=== PATIENT | female | born 1955 | race Caucasian/White ===

== ENCOUNTER → 2017-12-28 13:31 | Outpatient (CLI) | payer MEDICARE, SELFPAY ==
--- NOTE | 2017-12-28 13:36 | MRI_ITS ---
STUDY: MRI LUMBAR SPINE WITHOUT CONTRAST REASON FOR EXAM: Female, 62 years old. Chronic low back pain and bilateral leg pain TECHNIQUE: Standardized fat and water weighted pulse sequences were obtained in the sagittal and axial planes. COMPARISON: None FINDINGS: T12-L1: Incompletely imaged with disc space narrowing and desiccation and anterior osteophyte formation. Normal lumbar lordosis. There is no substantial scoliosis. Normal conus medullaris that terminates at the L1-2 level. L1-2: Disc desiccation. No compressive sequelae. L2-3: Disc desiccation. No compressive sequelae. L3-4: Disc desiccation. Bulging annulus with superimposed broad left foraminal disc protrusion and bilateral facet and ligamentum flavum hypertrophy. Mild central canal and moderate left lateral recess stenoses. Moderate to severe left and mild right foraminal stenoses. L4-5: Disc desiccation. Bulging annulus with superimposed broad left foraminal disc protrusion and bilateral facet and ligamentum flavum hypertrophy. Mild central canal and left lateral recess stenosis. Moderate left and mild right foraminal stenoses. L5-S1: Disc desiccation. Bulging annulus and bilateral facet hypertrophy with minimal central canal stenosis and mild left foraminal stenosis. Normal visualized sacral ala. Normal visualized paraspinous soft tissue structures. MRI/Spine Lumbar (Routine) IMPRESSION: Multilevel degenerative disc and facet disease as described. Moderate to severe left foraminal stenosis at the L3-4 level. Moderate left foraminal stenosis at the L4-5 level. Electronically Signed: Aquiles Burnett MD at 3:41 EST Tel , Service support ,
== END ==
PROVIDERS: Family Provider Family Medicine; PCP Family Medicine
DX: M54.5 Low back pain (principal); G89.29 Other chronic pain; M51.9 Unspecified thoracic, thoracolumbar and lumbosacral intervertebral disc disorder
CPT/HCPCS: 72148

== ENCOUNTER → 2018-01-04 16:08 | Outpatient (CLI) | payer MEDICARE, SELFPAY ==
[2018-01-04 17:35] LABS: Absolute Lymphocyte Count 3.33 X10^3/ul (0.83-4.51); Absolute Neutrophil Count 3.5 X10^3/uL (2.0-7.7); Basophil# 0.03 X10^3/uL; Basophil% 0.4 % (0-1); Eosinophil# 0.07 X10^3/uL; Eosinophils% 0.9 % (0-5); Hemoglobin 13.4 g/dl (12.0-15.0); Lymphocyte # 3.33 X10^3/ul (4.0); Lymphocyte % 44.9 % (19-41); Mean Corp Hgb Conc 33.5 g/gl (32-36); Mean Corpuscular Hgb 32.2 pg (27.0-32.0); Mean Corpuscular Volume 96.2 fL (81-99); Mean Platelet Vol. 11.6 fl (6.2-12.0); Monocyte# 0.46 X10^3/uL; Monocyte% 6.2 % (0-10); Neutrophil # 3.52 X10^3/uL (2.7-7.7); Neutrophil % 47.5 % (47-70); Platelet Count 114 K/mm3 (150-450); RBC Distribution Width SD 48.2 fl (35.1-43.9); Red Blood Count 4.16 M/mm3 (4.2-5.4); White Blood Count 7.4 K/mm3 (4.4-11.0)
[2018-01-04 17:37] LABS: POSITIVE COUNT NO; POSITIVE DIFFERENTIAL NO; POSITIVE MORPHOLOGY NO
[2018-01-04 18:02] LABS: ALB/GLOB Ratio 0.9 RATIO (0.9-2.4); AST(SGOT) 45 U/L (15-37); Alanine Aminotransfer ALT/SGPT 40 U/L (13-56); Albumin, Serum 3.4 g/dL (3.2-5.0); Alkaline Phosphatase 70 U/L (45-117); Anion Gap 8 (5-15); BUN 9 mg/dL (7-18); BUN/Creat Ratio 10.5 RATIO (10-20); Calcium,Total 8.7 mg/dL (8.5-10.1); Chloride 101 mmol/L (98-107); Creatinine, Serum 0.86 mg/dL (0.55-1.02); EST Glomerular Filtration Rate 72 mL/min (>60); Est Glom Filt Rate - Afr Amer 87 mL/min (>60); Globulin 3.7 g/dL (2.2-4.2); Glucose 78 mg/dL (74-106); Protein, Total 7.1 g/dL (6.4-8.2); Sodium Level 135 mmol/L (136-145); Thyroid Stim Hormone (TSH) 0.96 uIU/mL (0.358-3.74)
== END ==
PROVIDERS: Family Provider Family Medicine; PCP Family Medicine; Visit Provider Family Medicine
DX: R25.1 Tremor, unspecified (principal); R41.3 Other amnesia
CPT/HCPCS: 36415; 80053; 84443; 85025

== ENCOUNTER 2018-01-27 12:34 | Emergency (ER) | payer MEDICARE, SELFPAY ==
[2018-01-27 12:35] VITALS: BP 106/70; PULSE 74; RESP 18; TEMP 36.1; O2SAT 97; BMI 25.7
--- NOTE | 2018-01-27 12:57 | NURSING ---
NO LW OR POA
--- NOTE | 2018-01-27 13:41 | RAD_ITS ---
STUDY: X-RAY - RIGHT KNEE REASON FOR EXAM: Female, 62 years old. fall, bruising, pain TECHNIQUE: 4 view(s) of the knee. COMPARISON: None. FINDINGS: Normal visualized distal femur. Normal visualized proximal tibia and fibula. Normal proximal tibiofibular articulation. Normal medial femorotibial compartment. Normal lateral femorotibial compartment. Normal patellofemoral articulation. The soft tissue structures are unremarkable. RAD/Knee 4 or More Views IMPRESSION: Normal x-ray examination of the knee. Electronically Signed: Simon Arias MD at 14:34 EDT Tel , Service support ,
--- NOTE | 2018-01-27 13:41 | CT_ITS ---
STUDY: CT BRAIN WITHOUT CONTRAST REASON FOR EXAM: Female, 62 years old. Trauma, fell on ice yesterday, headache today. Hx melanoma, HI, CABG and stents. RADIATION DOSAGE (If Supplied By Facility): CTDIvol = ( 44.99 ) mGy, DLP = ( 745.49 ) mGycm TECHNIQUE: Transaxial CT imaging of the brain was performed without administration of intravenous contrast material. Individualized dose optimization techniques were used for this CT. COMPARISON: None. FINDINGS: Normal soft tissue structures. Normal calvarium. Normal size ventricles and extra-axial spaces for the patient's age. There are areas of decreased attenuation within the white matter tracts of the supratentorial brain, consistent with microvascular disease changes. Normal basal ganglia and thalami. Normal brainstem. Normal cerebellum. There is no intracranial hemorrhage. There are no findings of an acute ischemic infarction. Normal visualized paranasal sinuses. CT/Brain/Head without Contrast IMPRESSION: Chronic involutional changes of the brain. Electronically Signed: Simon Arias MD at 14:31 EDT Tel , Service support ,
--- NOTE | 2018-01-27 13:41 | RAD_ITS ---
STUDY: X-RAY - RIGHT FOOT CLINICAL: Female, 62 years old. fall, pain TECHNIQUE: 3 view(s) of the foot. COMPARISON: None. FINDINGS: There is an enthesophyte involving the posterior superior calcaneus at the site of insertion of the Achilles tendon. Normal visualized subtalar, talonavicular, calcaneocuboid, tarsal and tarsometatarsal articulations. Normal metatarsi. Normal metatarsophalangeal joint of the great toe. Normal tibial and fibular sesamoid bones. Normal interphalangeal joint of the great toe. Normal phalanges of the great toe. Normal second through fifth metatarsophalangeal joints. Normal interphalangeal joints and phalanges of the lesser toes. The soft tissue structures are unremarkable. RAD/Foot min 3 Views IMPRESSION: No acute bone injury of the foot. Electronically Signed: Simon Arias MD at 14:35 EDT Tel , Service support ,
[2018-01-27] MEDS: Morphine 4 MG/ML Syringe SC (13:57)
--- NOTE | 2018-01-27 15:10 | ED.DCSUM_ITS ---
- ER Visit Summary Date of Service: 01/27/18 Chief Complaint: Fall History of Present Illness: The patient is a 62 F patient slipped on ice yesterday. Complains of right foot, right knee, and right head pain. No loss of consciousness. No numbness or weakness. No loss of bowel or bladder. She does take aspirin and Plavix. No other injuries or complaints. Physical Examination: Afebrile and vital signs unremarkable. Head is atraumatic. Neck nontender. Heart regular. Lungs clear. Right knee shows ecchymosis and diffuse tenderness to palpation. Right foot shows dorsal tenderness and mild ecchymosis. She is neurovascular intact distally. No other evidence of trauma. Test Results: CT head negative. X-rays of the foot and knee were negative. Emergency Department Course and Treatment: Patient treated with morphine here. She is in pain management and will continue to use her home medications. Return for any new or worsening issues. Rest ice and elevate the injured areas. Treatment Plan: Above Disposition: Discharged Impression: 1. Right knee pain 2. Right foot pain 3. Closed head injury This note was generated with Abigail Stewart dictation software. It may contain incorrect words, spelling, and punctuation that were not noted in review of the chart prior to signing ED Disposition - Plan for ED Patient: Chief Complaint: Fall Referrals: Phani Odom MD [Primary Care Provider] -
--- NOTE | 2018-01-27 15:10 | ED.DEP ---
ED Disposition - Plan for ED Patient: Chief Complaint: Fall Instructions: ED Mechanical Fall Referrals: Phani Odom MD [Primary Care Provider] -
[2018-01-27 15:18] VITALS: BP 110/68; BP 110/80; PULSE 70; RESP 16; O2SAT 100
== END 2018-01-27 15:19 | disposition home or self-care (01) ==
PROVIDERS: Emergency Provider Emergency Medicine; Family Provider Family Medicine; PCP Family Medicine
DX: S09.90XA Unspecified injury of head, initial encounter (principal); M25.561 Pain in right knee; M79.671 Pain in right foot; I25.10 Atherosclerotic heart disease of native coronary artery without angina pectoris; Z72.0 Tobacco use; Z79.82 Long term (current) use of aspirin; Z79.02 Long term (current) use of antithrombotics/antiplatelets; Z79.899 Other long term (current) drug therapy; W00.0XXA Fall on same level due to ice and snow, initial encounter; Y93.01 Activity, walking, marching and hiking; Y92.89 Other specified places as the place of occurrence of the external cause; Y99.8 Other external cause status
CPT/HCPCS: 70450; 73564; 73630; 96372; 99284

== ENCOUNTER 2018-02-17 11:42 | Emergency (ER) | payer MEDICARE, SELFPAY ==
[2018-02-17 11:42] VITALS: BP 97/68; PULSE 64; RESP 16; TEMP 36.5; O2SAT 97; BMI 25.7
== END 2018-02-17 13:26 | disposition left against medical advice (07) ==
LOC: ED 13:25
PROVIDERS: Emergency Provider Emergency Medicine; Family Provider Family Medicine; PCP Family Medicine
DX: M54.9 Dorsalgia, unspecified (principal)

== ENCOUNTER 2018-03-12 16:51 | Inpatient (IN) | payer MEDICARE, SELFPAY ==
[2018-03-12] VITALS (19 sets, daily range): BP systolic 108–166; BP diastolic 69–97; PULSE 49–86; RESP 12–20; TEMP 36.2–36.9; O2SAT 94–99; BMI 26.6; BMI 26.4; BMI 26.7
--- NOTE | 2018-03-12 17:06 | ED.RN ---
janey petty came from [place]. throught the er rom was her room at home and refering to things not present or relavant to present. does appriopriately recall hx and able to verbalize cp, holdin epigastric and sternal area.
--- NOTE | 2018-03-12 17:13 | EKG12_ITS ---
Test Reason : CP Blood Pressure : / mmHG Vent. Rate : 069 BPM Atrial Rate : 069 BPM P-R Int : 142 ms QRS Dur : 094 ms QT Int : 448 ms P-R-T Axes : 046 -06 061 degrees QTc Int : 480 ms Normal sinus rhythm Poor R wave progression Confirmed by DREAD CHOI, SABI ([id number]), index editor JHONY MOLINA ([id number]) on 03/15/2018 1:28:31 PM Referred By: Con Jackson Confirmed By:SABI CANADA MD
--- NOTE | 2018-03-12 17:15 | ED.VISSUMM ---
- ER Visit Summary Date of Service: 03/12/18 Chief Complaint: Chest pain History of Present Illness: The patient is a 63 F sudden substernal chest pain 2 hours ago while resting. States twisting sensation in her chest and severe. Has been worsening. Took 3 nitros with no relief. Pain is a 10. History of CABG along with post CABG stenting states 5-7. States her last cath was probably 4 years ago at [facility]. She is followed by Dr. Castro. She is unclear if she has had a stent since then. Patient continued tobacco history. She hypertension and hypercholesterolemia. No family history of NE. No diabetes history. No PE risk factors. Patient states feels similar to her NE in the past. Allergies to IV dye stating it made her pass out previously. States yesterday did have similar pain at 6 PM however it resolved after 1 nitro. Physical Examination: General: Alert and oriented ?3, tearful in mild distress HEENT: Normocephalic, atraumatic. Moist mucosa membranes Neck: supple, nontender. Cardiovascular: Regular rate and rhythm, Respiratory: Normal breath sounds, symmetric, no distress Abdomen: Soft, nontender, nondistended Extremities: Nontender, no edema, pulses intact ?4 Neuro: no focal neurological deficits. Test Results: EKG: Sinus rate of 69, no ST or T-wave changes. Chest x-ray negative. Troponin negative. Creatinine clearance normal. Emergency Department Course and Treatment: Patient vitals stable, EKG normal. Symptoms not resolved with 3 nitros. She appears uncomfortable, high risk with her coronary disease and continued tobacco. Nitro drip will be started, fentanyl IV will be given. Cardiac workup initiated. She took aspirin and Plavix at home today. Treatment Plan: Patient high risk factors. Due to symptoms not improving on nitro series at home. Nitro drip was started. At one point nitro drip at 15 she was symptom-free. Did initially order Lovenox however this was held when her pain came back. She took aspirin and Plavix at home. The symptoms return. Multiple EKGs obtained unchanged. Cardiac workup was negative. I spoke with interventional is Dr. Jackson, discuss findings he is on his way to the ED to see the patient. He did request the cath team be paged to come in. Spoke with hospitalist Dr. Brown for admission. Heart score is a 5. LIZETH score is a 4. Disposition: Admission Impression: Unstable angina This note was generated with [employer] dictation software. It may contain incorrect words, spelling, and punctuation that were not noted in review of the chart prior to signing ED Disposition - Plan for ED Patient: Disposition: Acute Care Hospital [facility] Chief Complaint: Chest Pain Diagnosis: Unstable angina Referrals: Phani Odom MD [Primary Care Provider] -
--- NOTE | 2018-03-12 17:16 | RAD_ITS ---
STUDY: X-RAY CHEST REASON FOR EXAM: Female, 63 years old. Midsternal chest pain. TECHNIQUE: Single AP portable view of the chest. COMPARISON: April 17, 2017 FINDINGS: Cardiac monitoring leads are present. Patient has had a sternotomy. There is hyperinflation of the lungs consistent with chronic obstructive lung disease (COPD). There is interstitial thickening at the lung bases, similar to previous study. There is no demonstrated pleural abnormality. There is mild cardiac enlargement. Normal mediastinum and jenna. Normal visualized pulmonary arteries. Normal visualized aortic arch and descending thoracic aorta. There is demineralization of the osseous structures. Patient has had previous cervical spine surgery. There is no demonstrated abnormality of the visualized soft tissue structures of the upper abdomen. RAD/Chest 1 View (Portable) IMPRESSION: No radiographic evidence of acute cardiopulmonary disease. Electronically Signed: Rossy Goetz MD at 17:37 EDT , Service support ,
[2018-03-12] MEDS: Nitroglycerin Infusion 250 ML 3 MG IV (17:24)
[2018-03-12] MEDS: fentaNYL 100 MCG/2 ML Ampul 50 MCG IV ×2 (17:24→20:12)
[2018-03-12 17:49] LABS: Absolute Neutrophil Count 3.8 X10^3/uL (2.0-7.7); Basophil# 0.03 X10^3/uL; Basophil% 0.4 % (0-1); Eosinophil# 0.04 X10^3/uL; Eosinophils% 0.5 % (0-5); Hematocrit 41.5 % (37-47); Lymphocyte % 43.8 % (19-41); Mean Corp Hgb Conc 33.7 g/gl (32-36); Mean Corpuscular Hgb 30.8 pg (27.0-32.0); Mean Corpuscular Volume 91.4 fL (81-99); Mean Platelet Vol. 10.9 fl (6.2-12.0); Monocyte% 6.4 % (0-10); Neutrophil # 3.79 X10^3/uL (2.7-7.7); Neutrophil % 48.8 % (47-70); Platelet Count 165 K/mm3 (150-450); RBC Distribution Width CV 13.7 % (11.6-14.6); RBC Distribution Width SD 45.4 fl (35.1-43.9); Red Blood Count 4.54 M/mm3 (4.2-5.4); White Blood Count 7.8 K/mm3 (4.4-11.0)
[2018-03-12 17:53] LABS: POSITIVE COUNT NO; POSITIVE DIFFERENTIAL NO; POSITIVE MORPHOLOGY NO
[2018-03-12 17:54] LABS: International Normalized Ratio 1.1; Prothrombin Time (Protime)PT. 14.5 SECONDS (11.7-14.9)
[2018-03-12 17:55] LABS: Partial Thromboplast Time 37.4 Seconds (24.1-36.2)
[2018-03-12 17:59] LABS: Anion Gap 8 (5-15); BUN 10 mg/dL (7-18); BUN/Creat Ratio 10.4 RATIO (10-20); Calcium,Total 8.9 mg/dL (8.5-10.1); Chloride 101 mmol/L (98-107); Creatinine, Serum 0.96 mg/dL (0.55-1.02); EST Glomerular Filtration Rate 63 mL/min (>60); Est Glom Filt Rate - Afr Amer 76 mL/min (>60); Estimated Creatinine Clearance 53.14 ml/min; Glucose 77 mg/dL (74-106); Potassium 4.2 mmol/L (3.5-5.1); Sodium Level 134 mmol/L (136-145)
--- NOTE | 2018-03-12 19:11 | EKG12_ITS ---
Test Reason : Blood Pressure : / mmHG Vent. Rate : 062 BPM Atrial Rate : 062 BPM P-R Int : 144 ms QRS Dur : 096 ms QT Int : 464 ms P-R-T Axes : 033 -08 059 degrees QTc Int : 470 ms Normal sinus rhythm Poor R wave progression Confirmed by DREAD CHOI, SABI ([id number]), fan mail editor JHONY MOLINA ([id number]) on 03/15/2018 1:28:52 PM Referred By: Con Jackson Confirmed By:SABI CANADA MD
--- NOTE | 2018-03-12 19:11 | EKG12_ITS ---
Test Reason : CP Blood Pressure : / mmHG Vent. Rate : 063 BPM Atrial Rate : 063 BPM P-R Int : 144 ms QRS Dur : 094 ms QT Int : 460 ms P-R-T Axes : 044 -08 063 degrees QTc Int : 470 ms Normal sinus rhythm Poor R wave progression Confirmed by DREAD CHOI, SABI ([id number]), food expeditor JHONY MOLINA ([id number]) on 03/15/2018 1:29:12 PM Referred By: Con Jackson Confirmed By:SABI CANADA MD
[2018-03-12] MEDS: Acetaminophen 500 MG Tablet 1000 MG PO (19:47)
--- NOTE | 2018-03-12 19:49 | NURSING ---
DR. AGRAWAL MADE AWARE OF PATIENT'S CONTINUED CHEST PAIN OF 5/10. ALSO C/O LEFT JAW PAIN AND A HEADACHE. HE TOLD THIS NURSE TO GO AHEAD AND INCREASE THE NITRO TO 25MCG/MIN. THIS NURSE DID THAT. PATIENT ALSO REQUESTED TYLENOL FOR HER HEADACHE AND THAT WAS ORDERED AND GIVEN. PATIENT ALSO HAD SOME DRY HEAVES.
--- NOTE | 2018-03-12 19:59 | NURSING ---
THIS NURSE WAS CALLED TO THE PATIENT'S ROOM FOR INCREASED CHEST PAIN OF 9/10. DR. AGRAWAL MADE AWARE. NITRO INCREASED TO 30 MCG/MIN. RESPIRATORY CALLED FOR A REPEAT EKG. DR. BERMAN CONSULT DOCTOR ANESTHESIOLOGY FACULTY FOR BEHAVIORAL INSTRUCTOR.
--- NOTE | 2018-03-12 20:31 | NURSING ---
PATIENT IS GOING TO THE [facility] FOR UNSTABLE ANGINA. CATH TEAM CALLED IN. PATIENT PREPPED FOR THE [facility]. PATIENT TO GO TO ICU 2 AFTER PROCEDURE. PATIENT'S PAIN CURRENTLY IS 5/10.
[2018-03-12] MEDS: Ondansetron 4 MG/2 ML Vial IV (20:40)
--- NOTE | 2018-03-12 20:47 | PCM.HP.STD ---
Problem List (1) Unstable angina Status: Acute (2) Status post coronary artery bypass graft Status: Chronic (3) Coronary artery disease Status: Chronic (4) Dyslipidemia Status: Chronic (5) Essential hypertension Status: Chronic (6) Obstructive sleep apnea Status: Chronic (7) Degenerative disc disease, lumbar Status: Chronic (8) Osteoarthritis Status: Chronic History of Present Illness Date of Admission: 03/12/18 Chief Complaint: Chest pain. The patient is a 63 year old F with past medical history as mentioned above presented to the emergency room because of chest pain. Her symptoms started on 3 PM today with retrosternal chest pain, came on when she was walking, squeezing type pain, initially was 5 out of 10 in severity, progressed and became up to 9 out of 10 in severity, associated with mild shortness of breath, dizziness and nausea, not relieved by nitroglycerin and no aggravating factors. At home, she took 3 sublingual nitroglycerin with no improvement. At this time, she still having chest pain that was related around 8 out of 10 in severity. In the emergency department, her vital signs are stable. She was started on intravenous nitroglycerin drip and she continued to have chest pain. STEMI alert called and patient will be taking soon for emergent cardiac catheterization. She received 1 dose of therapeutic Lovenox and aspirin. Her routine blood work was unremarkable. Troponin was negative. EKG revealed normal sinus rhythm without evidence of acute ischemic changes. Chest x-ray showed no acute findings. She is being admitted for unstable angina. Past Medical History Past Medical History (Chronic Problems): Chronic Problems Status post coronary artery bypass graft (Chronic) Coronary artery disease (Chronic) Dyslipidemia (Chronic) Essential hypertension (Chronic) History of mitral valve prolapse (Chronic) Obstructive sleep apnea (Chronic) Degenerative disc disease, lumbar (Chronic) Osteoarthritis (Chronic) Lung nodule < 6cm on CT (Chronic) Tobacco abuse (Chronic) Allergies Iodinated Contrast- Oral and IV Dye [Iodinated Contrast Media - IV Dye] Allergy (Verified 03/12/18 16:52) Other tetracycline [Tetracycline] Allergy (Verified 03/12/18 16:52) Hives Home Medications: Ambulatory Orders Medication Instructions Recorded Aspirin [Aspirin, Baby] 81 mg PO DAILY@0800 02/04/16 Citalopram [Celexa] 40 mg PO QHS 02/04/16 Omeprazole [Prilosec] 20 mg PO DAILY 02/04/16 busPIRone [Buspar] 5 mg PO TID 02/04/16 fentaNYL patch [Duragesic patch] 75 mcg TRANSDERM. Q72H 02/04/16 Nitroglycerin [Nitrostat] 0.4 mg SUBLINGUAL Q5M PRN #10 04/18/17 tablet Clopidogrel Bisulfate [Plavix] 75 mg PO DAILY 01/27/18 Cholecalciferol (Vitamin D3) 5,000 unit PO DAILY 03/12/18 [Vitamin D3] Clonazepam [Klonopin] 2 mg PO TID 03/12/18 Cyclobenzaprine [Flexeril] 10 mg PO TID PRN PRN 03/12/18 Metoprolol Tartrate [Lopressor 12.5 mg PO QHS 03/12/18 (beta johny)] Ubidecarenone [Coenzyme Q10] 100 mg PO DAILY 03/12/18 traZODone [Desyrel] 50 mg PO QHS 03/12/18 Surgical History: appendectomy, cholecystectomy, coronary bypass surgery, hysterectomy, - - bilateral carpal tunnel repair 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: Anxiety, Depression JUVENILE COUNSELOR History: No pertinent JUVENILE COUNSELOR history Lives: Spouse/ Significant Other Smoking Status: Current every day smoker Alcohol: None Drugs: None - *Family History Paternal History Items: Cancer - colon Offspring History Items: - - Daughter has lupus Maternal History Items: Cancer - Lung with brain metastases Sibling History Items: - - Sister has multiple sclerosis Review of Systems Constitutional: Denies: Anorexia, Chills, Fever, Weakness Eyes: Denies: Blurred vision, Double vision, Drainage, Redness HEENT: Denies: Difficulty Hearing, Ear Pain, Eye Pain, Nasal Congestion, Sore Throat Cardiovascular: Reports: Chest Pain. Denies: Edema, Heaviness, Light Headedness, Orthopnea, Paroxysmal Noc. Dyspnea, Syncope Respiratory: Reports: Shortness of Breath. Denies: Cough, Hemoptysis, Pleuritic Pain, Sputum production, Wheezing Gastrointestinal: Reports: Nausea. Denies: Abdominal Pain, Constipation, Diarrhea, Vomiting Genitourinary: Denies: Dysuria, Frequency, Hematuria Musculoskeletal: Denies: Arm Pain, Back Pain, Foot Pain Skin: Denies: Dryness, Rash Neurological: Denies: Balance problems, Double vision, Change in Speech, Slurred speech, Headaches, Incoordination, Numbness Psychiatric: Denies: Anxiety, Depression Endocrine: Denies: Change in Body Habitus, Polydipsia VTE Information - Inpt Only VTE Present on Admission: No VTE Mechan Device Prophylaxis: None VTE Pharm Prophylaxis ordered?: Yes Patient Problems: Active and Suspected Problems Unstable angina (Acute) - Physical Exam General: Alert, Oriented x3, Cooperative, No apparent distress HEENT: Atraumatic, PERRLA, EOMI Oral: Moist Mucosa, No Gingival or Mucosal Lesions/ Ulcerations Neck: Supple, No JVD, Negative Carotid Bruits, Trachea Midline, Thyroid Normal Size and Texture Lungs: Clear to auscultation, No rhonchi, No wheeze, No rales, Diminished Cardiovascular: Regular rate, Regular Rhythm, Normal S1, Normal S2, No murmurs, PMI Normal Abdomen: Bowel Sounds Present, Soft, Non Tender, Non-Distended, No Hepato-splenomegaly Extremities: No clubbing, No cyanosis, No edema Skin: No rashes, No breakdown Lymphatic: No Cervical, Supraclavicular, or Inguinal Adenopathy Neurological: Cranial nerves II-XII grossly intact, Motor Exam 5/5 strength throughout Psych/Mental Status: Normal Affect, Appropriate, Alert and oriented to time, place, person, mood and affect Vital Signs Temp Pulse Resp BP Pulse Ox 98.4 F 59 L 15 128/84 H 97 03/12/18 20:43 03/12/18 20:43 03/12/18 20:43 03/12/18 20:43 03/12/18 20:43 Oxygen Flow Rate (L/min) 2 Oxygen Delivery Method Nasal Cannula Weight: 155 lb 10.342 oz Body Mass Index (BMI) 26.6 Laboratory Tests Past 24 Hrs 03/12/18 03/12/18 03/12/18 17:05 17:05 17:05 WBC 7.8 RBC 4.54 Hgb 14.0 Hct 41.5 MCV 91.4 MCH 30.8 MCHC 33.7 RDW 13.7 RDW Differential 45.4 H Plt Count 165 MPV 10.9 Immature Gran % (Auto) 0.100 Neut % (Auto) 48.8 Lymph % (Auto) 43.8 H [place] % (Auto) 6.4 Eos % (Auto) 0.5 Baso % (Auto) 0.4 Absolute Neuts (auto) 3.8 Absolute Lymphs (auto) 3.40 Total Counted Not Reportable PT 14.5 INR 1.1 APTT 37.4 H Sodium 134 L Potassium 4.2 Chloride 101 Carbon Dioxide 25.0 Anion Gap 8 BUN 10 Creatinine 0.96 Estim Creat Clear Calc 53.14 Est GFR (MDRD) Af Amer 76 Est GFR (MDRD) Non-Af 63 BUN/Creatinine Ratio 10.4 Glucose 77 Calcium 8.9 Troponin I < 0.02 Clinical Impression(s) from Imaging Studies Chest X-Ray 03/12/18 17:16 IMPRESSION: No radiographic evidence of acute cardiopulmonary disease. Electronically Signed: Rossy Goetz MD at 17:37 EDT , Service support , Assessment/Plan Active and Suspected Problems Unstable angina (Acute) This is a 63 years old female patient presented to the medicine because sudden onset chest pain that started when she was walking in context of history of CAD status post CABG and stents and she is being admitted for unstable angina and she is going under emergent cardiac catheterization. #1 unstable angina: She is still having chest pain. She is on IV nitroglycerin drip. Plan is for emergent cardiac catheterization at this time. Vital signs are stable. EKG reveals no acute ischemic changes. Troponin is negative. Chest x-ray showed no acute findings. Plan: Admit to ICU after cardiac catheterization, serial cardiac enzymes, repeat EKG tomorrow morning, cardiology consult, continue aspirin, Plavix and metoprolol, repeat CBC and BMP tomorrow morning, IV fluids, IV morphine as needed for pain, continue IV nitroglycerin drip. #2 CAD status post CABG and stents: Plan as above, continue aspirin, statins, Plavix and beta blockers. #3 hypertension: Blood pressure stable, continue metoprolol. #4 hyperlipidemia: Continue statins. #5 anxiety/depression: Continue BuSpar, trazodone and Klonopin. #6 DVT prophylaxis: Subcu Lovenox. Other chronic medical problems: Stable. #1 mitral valve prolapse. #2 obstructive sleep apnea. #3 chronic back pain/degenerative lumbar joint disease. #4 lung nodule, follow-up with pulmonology as outpatient. This note was generated with [employer]ore [employer] software. It may contain incorrect words, spelling, and punctuation that were not noted in checking the note before signing. Code Visit Inpatient E&M: 46437 Init Hosp L3
--- NOTE | 2018-03-12 21:02 | HP.PCM_ITS ---
Problem List (1) Unstable angina Status: Acute (2) Status post coronary artery bypass graft Status: Chronic (3) Coronary artery disease Status: Chronic (4) Dyslipidemia Status: Chronic (5) Essential hypertension Status: Chronic (6) Obstructive sleep apnea Status: Chronic (7) Degenerative disc disease, lumbar Status: Chronic (8) Osteoarthritis Status: Chronic History of Present Illness Date of Admission: 03/12/18 Chief Complaint: Chest pain. The patient is a 63 year old F with past medical history as mentioned above presented to the emergency room because of chest pain. Her symptoms started on 3 PM today with retrosternal chest pain, came on when she was walking, squeezing type pain, initially was 5 out of 10 in severity, progressed and became up to 9 out of 10 in severity, associated with mild shortness of breath, dizziness and nausea, not relieved by nitroglycerin and no aggravating factors. At home, she took 3 sublingual nitroglycerin with no improvement. At this time, she still having chest pain that was related around 8 out of 10 in severity. In the emergency department, her vital signs are stable. She was started on intravenous nitroglycerin drip and she continued to have chest pain. STEMI alert called and patient will be taking soon for emergent cardiac catheterization. She received 1 dose of therapeutic Lovenox and aspirin. Her routine blood work was unremarkable. Troponin was negative. EKG revealed normal sinus rhythm without evidence of acute ischemic changes. Chest x-ray showed no acute findings. She is being admitted for unstable angina. Past Medical History Past Medical History (Chronic Problems): Chronic Problems Status post coronary artery bypass graft (Chronic) Coronary artery disease (Chronic) Dyslipidemia (Chronic) Essential hypertension (Chronic) History of mitral valve prolapse (Chronic) Obstructive sleep apnea (Chronic) Degenerative disc disease, lumbar (Chronic) Osteoarthritis (Chronic) Lung nodule < 6cm on CT (Chronic) Tobacco abuse (Chronic) Allergies Iodinated Contrast- Oral and IV Dye [Iodinated Contrast Media - IV Dye] Allergy (Verified 03/12/18 16:52) Other tetracycline [Tetracycline] Allergy (Verified 03/12/18 16:52) Hives Home Medications: Ambulatory Orders Medication Instructions Recorded Aspirin [Aspirin, Baby] 81 mg PO DAILY@0800 02/04/16 Citalopram [Celexa] 40 mg PO QHS 02/04/16 Omeprazole [Prilosec] 20 mg PO DAILY 02/04/16 busPIRone [Buspar] 5 mg PO TID 02/04/16 fentaNYL patch [Duragesic patch] 75 mcg TRANSDERM. Q72H 02/04/16 Nitroglycerin [Nitrostat] 0.4 mg SUBLINGUAL Q5M PRN #10 04/18/17 tablet Clopidogrel Bisulfate [Plavix] 75 mg PO DAILY 01/27/18 Cholecalciferol (Vitamin D3) 5,000 unit PO DAILY 03/12/18 [Vitamin D3] Clonazepam [Klonopin] 2 mg PO TID 03/12/18 Cyclobenzaprine [Flexeril] 10 mg PO TID PRN PRN 03/12/18 Metoprolol Tartrate [Lopressor 12.5 mg PO QHS 03/12/18 (beta johny)] Ubidecarenone [Coenzyme Q10] 100 mg PO DAILY 03/12/18 traZODone [Desyrel] 50 mg PO QHS 03/12/18 Surgical History: appendectomy, cholecystectomy, coronary bypass surgery, hysterectomy, - - bilateral carpal tunnel repair 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: Anxiety, Depression MANAGER ART History: No pertinent MANAGER ART history Lives: Spouse/ Significant Other Smoking Status: Current every day smoker Alcohol: None Drugs: None - *Family History Paternal History Items: Cancer - colon Offspring History Items: - - Daughter has lupus Maternal History Items: Cancer - Lung with brain metastases Sibling History Items: - - Sister has multiple sclerosis Review of Systems Constitutional: Denies: Anorexia, Chills, Fever, Weakness Eyes: Denies: Blurred vision, Double vision, Drainage, Redness HEENT: Denies: Difficulty Hearing, Ear Pain, Eye Pain, Nasal Congestion, Sore Throat Cardiovascular: Reports: Chest Pain. Denies: Edema, Heaviness, Light Headedness , Orthopnea, Paroxysmal Noc. Dyspnea, Syncope Respiratory: Reports: Shortness of Breath. Denies: Cough, Hemoptysis, Pleuritic Pain, Sputum production, Wheezing Gastrointestinal: Reports: Nausea. Denies: Abdominal Pain, Constipation, Diarrhea, Vomiting Genitourinary: Denies: Dysuria, Frequency, Hematuria Musculoskeletal: Denies: Arm Pain, Back Pain, Foot Pain Skin: Denies: Dryness, Rash Neurological: Denies: Balance problems, Double vision, Change in Speech, Slurred speech, Headaches, Incoordination, Numbness Psychiatric: Denies: Anxiety, Depression Endocrine: Denies: Change in Body Habitus, Polydipsia VTE Information - Inpt Only VTE Present on Admission: No VTE Mechan Device Prophylaxis: None VTE Pharm Prophylaxis ordered?: Yes Patient Problems: Active and Suspected Problems Unstable angina (Acute) - Physical Exam General: Alert, Oriented x3, Cooperative, No apparent distress HEENT: Atraumatic, PERRLA, EOMI Oral: Moist Mucosa, No Gingival or Mucosal Lesions/ Ulcerations Neck: Supple, No JVD, Negative Carotid Bruits, Trachea Midline, Thyroid Normal Size and Texture Lungs: Clear to auscultation, No rhonchi, No wheeze, No rales, Diminished Cardiovascular: Regular rate, Regular Rhythm, Normal S1, Normal S2, No murmurs, PMI Normal Abdomen: Bowel Sounds Present, Soft, Non Tender, Non-Distended, No Hepato- splenomegaly Extremities: No clubbing, No cyanosis, No edema Skin: No rashes, No breakdown Lymphatic: No Cervical, Supraclavicular, or Inguinal Adenopathy Neurological: Cranial nerves II-XII grossly intact, Motor Exam 5/5 strength throughout Psych/Mental Status: Normal Affect, Appropriate, Alert and oriented to time, place, person, mood and affect Vital Signs Temp Pulse Resp BP Pulse Ox 98.4 F 59 L 15 128/84 H 97 03/12/18 20:43 03/12/18 20:43 03/12/18 20:43 03/12/18 20:43 03/12/18 20:43 Oxygen Flow Rate (L/min) 2 Oxygen Delivery Method Nasal Cannula Weight: 155 lb 10.342 oz Body Mass Index (BMI) 26.6 Laboratory Tests Past 24 Hrs 03/12/18 03/12/18 03/12/18 17:05 17:05 17:05 WBC 7.8 RBC 4.54 Hgb 14.0 Hct 41.5 MCV 91.4 MCH 30.8 MCHC 33.7 RDW 13.7 RDW Differential 45.4 H Plt Count 165 MPV 10.9 Immature Gran % (Auto) 0.100 Neut % (Auto) 48.8 Lymph % (Auto) 43.8 H [place] % (Auto) 6.4 Eos % (Auto) 0.5 Baso % (Auto) 0.4 Absolute Neuts (auto) 3.8 Absolute Lymphs (auto) 3.40 Total Counted Not Reportable PT 14.5 INR 1.1 APTT 37.4 H Sodium 134 L Potassium 4.2 Chloride 101 Carbon Dioxide 25.0 Anion Gap 8 BUN 10 Creatinine 0.96 Estim Creat Clear Calc 53.14 Est GFR (MDRD) Af Amer 76 Est GFR (MDRD) Non-Af 63 BUN/Creatinine Ratio 10.4 Glucose 77 Calcium 8.9 Troponin I < 0.02 Clinical Impression(s) from Imaging Studies Chest X-Ray 03/12/18 17:16 IMPRESSION: No radiographic evidence of acute cardiopulmonary disease. Electronically Signed: Rossy Goetz MD at 17:37 EDT , Service support , Assessment/Plan Active and Suspected Problems Unstable angina (Acute) This is a 63 years old female patient presented to the medicine because sudden onset chest pain that started when she was walking in context of history of CAD status post CABG and stents and she is being admitted for unstable angina and she is going under emergent cardiac catheterization. #1 unstable angina: She is still having chest pain. She is on IV nitroglycerin drip. Plan is for emergent cardiac catheterization at this time. Vital signs are stable. EKG reveals no acute ischemic changes. Troponin is negative. Chest x-ray showed no acute findings. Plan: Admit to ICU after cardiac catheterization, serial cardiac enzymes, repeat EKG tomorrow morning, cardiology consult, continue aspirin, Plavix and metoprolol, repeat CBC and BMP tomorrow morning, IV fluids, IV morphine as needed for pain, continue IV nitroglycerin drip. #2 CAD status post CABG and stents: Plan as above, continue aspirin, statins, Plavix and beta blockers. #3 hypertension: Blood pressure stable, continue metoprolol. #4 hyperlipidemia: Continue statins. #5 anxiety/depression: Continue BuSpar, trazodone and Klonopin. #6 DVT prophylaxis: Subcu Lovenox. Other chronic medical problems: Stable. #1 mitral valve prolapse. #2 obstructive sleep apnea. #3 chronic back pain/degenerative lumbar joint disease. #4 lung nodule, follow-up with pulmonology as outpatient. This note was generated with [email or web address]. It may contain incorrect words, spelling, and punctuation that were not noted in checking the note before signing. Code Visit Inpatient E&M: 30939 Init Hosp L3
[2018-03-12] MEDS: Enoxaparin 80 MG/0.8 ML Syringe 70 MG SC (22:08)
[2018-03-12 22:41] LABS: ACT Activated Clotting Time 346 sec (74-137)
[2018-03-12 22:41] LABS: ACT Activated Clotting Time 136 sec (74-137)
[2018-03-12] MEDS: Morphine 4 MG/ML Syringe IV (23:30)
[2018-03-13] VITALS (48 sets, daily range): BP systolic 108–164; BP diastolic 46–95; PULSE 45–75; RESP 12–26; TEMP 36.1–37.1; O2SAT 92–98; BMI 26.6
[2018-03-13 00:11] LABS: CPK Total, Creatine Kinase 39 U/L (26-192)
[2018-03-13] MEDS: traZODone 50 MG Tablet PO ×2 (00:23→21:46)
[2018-03-13] MEDS: busPIRone 5 MG Tablet PO ×4 (00:23→21:46)
[2018-03-13] MEDS: Citalopram 40 MG TABLET PO ×2 (00:23→21:46)
[2018-03-13] MEDS: clonazePAM 1 MG Tablet 2 MG PO ×4 (00:28→21:46)
[2018-03-13 02:00] LABS: M R Staph aureus DNA By PCR Negative (Negative); Probe Check PASS; Specimen Processing Control PASS
[2018-03-13] MEDS: Morphine 4 MG/ML Syringe IV ×3 (03:40→19:25)
[2018-03-13 04:02] LABS: Absolute Lymphocyte Count 1.11 X10^3/ul (0.83-4.51); Absolute Neutrophil Count 3.7 X10^3/uL (2.0-7.7); Basophil# 0.01 X10^3/uL; Basophil% 0.2 % (0-1); Hemoglobin 12.8 g/dl (12.0-15.0); Lymphocyte # 1.11 X10^3/ul (4.0); Lymphocyte % 22.7 % (19-41); Mean Corp Hgb Conc 33.7 g/gl (32-36); Mean Corpuscular Hgb 30.9 pg (27.0-32.0); Mean Corpuscular Volume 91.8 fL (81-99); Mean Platelet Vol. 10.4 fl (6.2-12.0); Monocyte# 0.05 X10^3/uL; Neutrophil # 3.71 X10^3/uL (2.7-7.7); Neutrophil % 76.1 % (47-70); Platelet Count 138 K/mm3 (150-450); RBC Distribution Width CV 13.6 % (11.6-14.6); RBC Distribution Width SD 45.1 fl (35.1-43.9); Red Blood Count 4.14 M/mm3 (4.2-5.4); White Blood Count 4.9 K/mm3 (4.4-11.0)
[2018-03-13 04:03] LABS: POSITIVE COUNT NO; POSITIVE DIFFERENTIAL NO; POSITIVE MORPHOLOGY NO
[2018-03-13 04:16] LABS: Anion Gap 9 (5-15); BUN 11 mg/dL (7-18); CPK Total, Creatine Kinase 37 U/L (26-192); Chloride 105 mmol/L (98-107); Creatinine, Serum 0.84 mg/dL (0.55-1.02); EST Glomerular Filtration Rate 73 mL/min (>60); Est Glom Filt Rate - Afr Amer 88 mL/min (>60); Estimated Creatinine Clearance 60.73 ml/min; Glucose 120 mg/dL (74-106); Potassium 4.5 mmol/L (3.5-5.1); Sodium Level 136 mmol/L (136-145)
[2018-03-13] MEDS: 0.9% Normal Saline 1,000 ML 75 ML IV (05:17)
--- NOTE | 2018-03-13 05:55 | EKG12_ITS ---
Test Reason : AM EKG Blood Pressure : / mmHG Vent. Rate : 057 BPM Atrial Rate : 057 BPM P-R Int : 148 ms QRS Dur : 098 ms QT Int : 498 ms P-R-T Axes : 046 002 057 degrees QTc Int : 484 ms Sinus bradycardia Otherwise normal ECG When compared with ECG of 12-MAR-2018 18:16, MANUAL COMPARISON REQUIRED, DATA IS UNCONFIRMED Confirmed by JOSEPHINE CHOI, LONA ([id number]), clinical editor JHONY MOLINA ([id number]) on 03/15/2018 2:33:57 PM Referred By: Con Jackson Confirmed By:LONA BURTON MD
[2018-03-13] MEDS: Aspirin E.C. 81 MG Tablet PO (07:44)
--- NOTE | 2018-03-13 08:08 | PCM.PN.HOSP ---
Patient Problems: Active and Suspected Problems Unstable angina (Acute) Subjective: Patient is a 63-year-old lady with past medical history significant for CAD with previous CABG and subsequent stent placement who presented with chest pain and assessment of unstable angina made patient underwent left heart catheterization was noted to have [place] multivessel CAD. She was noted to have a mid left main in-stent restenosis for which she had successful PCI with PTCA. Objective: GENERAL: cooperative and alert, HEENT: , neck is supple, normal thyroid, no distended JVD. CHEST: Clear to auscultation bilaterally, HEART: Regular S1 S2, ABDOMEN: soft, non-tender, normoactive bowel sounds, RECTAL: deferred MUSCULOSKELETAL: Full range of motion in all major muscle groups. EXTREMITIES: No edema, no clubbing, no cyanosis. 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 Vitals/I&O's: Vital Signs Temp Pulse Resp BP Pulse Ox 98.7 F 64 25 H 137/77 H 98 03/13/18 07:00 03/13/18 07:06 03/13/18 07:00 03/13/18 07:00 03/13/18 07:00 Oxygen Flow Rate (L/min) 2 Oxygen Delivery Method Nasal Cannula Weight: 70.6 kg Body Mass Index (BMI) 26.4 Intake and Output for Last 24 Hours 03/11/18 03/12/18 03/13/18 23:59 23:59 23:59 Intake Total 685 / 685 Balance 685 / 685 Laboratory Results 03/12/18 21:21: Activated Clotting Time 136 03/12/18 22:10: Activated Clotting Time 346 H 03/12/18 23:15: MRSA (PCR) Negative 03/12/18 23:45: Total Creatine Kinase 39, Troponin I < 0.02 03/13/18 03:30: Sodium 136, Potassium 4.5, Chloride 105, Carbon Dioxide 22.0, Anion Gap 9, BUN 11, Creatinine 0.84, Estim Creat Clear Calc 60.73, Est GFR (MDRD) Af Amer 88, Est GFR (MDRD) Non-Af 73, BUN/Creatinine Ratio 13.0, Glucose 120 H, Calcium 8.0 L, Total Creatine Kinase 37 03/13/18 03:30: WBC 4.9, RBC 4.14 L, Hgb 12.8, Hct 38.0, MCV 91.8, MCH 30.9, MCHC 33.7, RDW 13.6, RDW Differential 45.1 H, Plt Count 138 L, MPV 10.4, Immature Gran % (Auto) 0.000, Neut % (Auto) 76.1 H, Lymph % (Auto) 22.7, [place] % (Auto) 1.0, Eos % (Auto) 0.0, Baso % (Auto) 0.2, Absolute Neuts (auto) 3.7, Absolute Lymphs (auto) 1.11, Total Counted Not Reportable 03/13/18 03:30: Troponin I < 0.02 03/13/18 07:32: Troponin I < 0.02 Current Medications Acetaminophen (Tylenol) 650 mg PO Q6H PRN PRN PRN Reason: Fever, headache, pain Aspirin (Ecotrin) 81 mg PO DAILY@0800 [facility] Last Admin: 03/13/18 07:44 Dose: 81 mg Atorvastatin Calcium (Lipitor) 40 mg PO QHS [facility] Atropine Sulfate () 0.5 mg IV UD PRN PRN Reason: HR <50 bpm Buspirone HCl (Buspar) 5 mg PO TID [facility] Last Admin: 03/13/18 05:16 Dose: 5 mg Citalopram Hydrobromide (Celexa) 40 mg PO QHS [facility] Last Admin: 03/13/18 00:23 Dose: 40 mg Clonazepam (Klonopin) 2 mg PO TID [facility] Last Admin: 03/13/18 05:16 Dose: 2 mg Enoxaparin Sodium (Lovenox) 40 mg SC DAILY@1000 [facility] Fentanyl (Duragesic Patch) 75 mcg TRANSDERM. Q72H [facility] Sodium Chloride () 1,000 mls @ 75 mls/hr IV .[id number] [facility] Stop: 03/13/18 11:49 Last Admin: 03/13/18 05:17 Dose: 75 mls/hr Nitroglycerin/Dextrose () 250 mls @ 6 mls/hr IV .[id number] STA; 10 MCG/MIN PRN Reason: Protocol Stop: 03/14/18 10:51 Last Admin: 03/12/18 23:27 Dose: Not Given Sodium Chloride () 1,000 mls @ 1 mls/hr IV .Q48H PRN PRN Reason: SALINE FLUSH Lisinopril (Zestril) 2.5 mg PO DAILY [facility] Magnesium Hydroxide (Milk Of Magnesia) 30 ml PO DAILY PRN PRN PRN Reason: Constipation Metoclopramide HCl (Reglan) 5 mg IV Q6H PRN PRN PRN Reason: NAUSEA/VOMITING Metoprolol Tartrate (Lopressor (Beta Ministerio)) 25 mg PO BID [facility] Morphine Sulfate () 1 - 2 mg IV Q4H PRN PRN PRN Reason: BACK PAIN Last Admin: 03/13/18 07:43 Dose: 2 mg Nitroglycerin (Nitrostat) 0.4 mg SUBLINGUAL Q5M PRN PRN Reason: CARDIAC/CHEST PAIN Ondansetron HCl (Zofran) 4 mg IV Q6H PRN PRN PRN Reason: NAUSEA/VOMITING Pantoprazole Sodium (Protonix) 20 mg PO DAILY [facility] Sodium Chloride () 500 ml IV BOLUS PRN PRN Reason: VASO-VAGAL PROTOCOL Sodium Chloride () 5 - 30 ml IV UD PRN PRN Reason: SALINE FLUSH Ticagrelor (Brilinta) 90 mg PO BID GOMEZ Trazodone HCl (Desyrel) 50 mg PO QHS [facility] Last Admin: 03/13/18 00:23 Dose: 50 mg Medical Necessity - Tobacco Use Smoking Status: Current every day smoker Tobacco Use: Cigarettes Assessment/Plan Active and Suspected Problems Unstable angina (Acute) Patient is a 63-year-old lady with past medical history significant for CAD with previous CABG and subsequent stent placement who presented with chest pain and assessment of unstable angina made patient underwent left heart catheterization was noted to have [place] multivessel CAD. She was noted to have a mid left main in-stent restenosis for which she had successful PCI with PTCA. 1. Unstable angina admitted to intensive care unit consult placed to cardiology; patient seen by Dr. oCn Jackson who did perform left heart catheterization was noted to have [place] multivessel CAD. She was noted to have a mid left main in-stent restenosis for which she had successful PCI with PTCA. 2. CAD with previous CABG and stent placement 3. Hypertension-blood pressure controlled, home medications continued with dose adjustment as needed 4. Dyslipidemia-patient is on statin therapy, continued at home dose 5. Degenerative joint disease with significant low back pain patient is being followed by pain management has had epidural steroid injection as outpatient 6. Obstructive sleep apnea 7. Depression with anxiety 8. Mitral valve prolapse 9. Lung nodule followed by pulmonary as outpatient 10. DVT prophylaxis Lovenox Code Visit Inpatient E&M: 75301 Subs Hosp L3
--- NOTE | 2018-03-13 08:14 | PN_ITS ---
Patient Problems: Active and Suspected Problems Unstable angina (Acute) Subjective: Patient is a 63-year-old lady with past medical history significant for CAD with previous CABG and subsequent stent placement who presented with chest pain and assessment of unstable angina made patient underwent left heart catheterization was noted to have [place] multivessel CAD. She was noted to have a mid left main in-stent restenosis for which she had successful PCI with PTCA. Objective: GENERAL: cooperative and alert, HEENT: , neck is supple, normal thyroid, no distended JVD. CHEST: Clear to auscultation bilaterally, HEART: Regular S1 S2, ABDOMEN: soft, non-tender, normoactive bowel sounds, RECTAL: deferred MUSCULOSKELETAL: Full range of motion in all major muscle groups. EXTREMITIES: No edema, no clubbing, no cyanosis. 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 Vitals/I&O's: Vital Signs Temp Pulse Resp BP Pulse Ox 98.7 F 64 25 H 137/77 H 98 03/13/18 07:00 03/13/18 07:06 03/13/18 07:00 03/13/18 07:00 03/13/18 07:00 Oxygen Flow Rate (L/min) 2 Oxygen Delivery Method Nasal Cannula Weight: 70.6 kg Body Mass Index (BMI) 26.4 Intake and Output for Last 24 Hours 03/11/18 03/12/18 03/13/18 23:59 23:59 23:59 Intake Total 685 / 685 Balance 685 / 685 Laboratory Results 03/12/18 21:21: Activated Clotting Time 136 03/12/18 22:10: Activated Clotting Time 346 H 03/12/18 23:15: MRSA (PCR) Negative 03/12/18 23:45: Total Creatine Kinase 39, Troponin I < 0.02 03/13/18 03:30: Sodium 136, Potassium 4.5, Chloride 105, Carbon Dioxide 22.0, Anion Gap 9, BUN 11, Creatinine 0.84, Estim Creat Clear Calc 60.73, Est GFR ( MDRD) Af Amer 88, Est GFR (MDRD) Non-Af 73, BUN/Creatinine Ratio 13.0, Glucose 120 H, Calcium 8.0 L, Total Creatine Kinase 37 03/13/18 03:30: WBC 4.9, RBC 4.14 L, Hgb 12.8, Hct 38.0, MCV 91.8, MCH 30.9, MCHC 33.7, RDW 13.6, RDW Differential 45.1 H, Plt Count 138 L, MPV 10.4, Immature Gran % (Auto) 0.000, Neut % (Auto) 76.1 H, Lymph % (Auto) 22.7, [place] % (Auto) 1.0, Eos % (Auto) 0.0, Baso % (Auto) 0.2, Absolute Neuts (auto) 3.7, Absolute Lymphs (auto) 1.11, Total Counted Not Reportable 03/13/18 03:30: Troponin I < 0.02 03/13/18 07:32: Troponin I < 0.02 Current Medications Acetaminophen (Tylenol) 650 mg PO Q6H PRN PRN PRN Reason: Fever, headache, pain Aspirin (Ecotrin) 81 mg PO DAILY@0800 [facility] Last Admin: 03/13/18 07:44 Dose: 81 mg Atorvastatin Calcium (Lipitor) 40 mg PO QHS [facility] Atropine Sulfate () 0.5 mg IV UD PRN PRN Reason: HR <50 bpm Buspirone HCl (Buspar) 5 mg PO TID [facility] Last Admin: 03/13/18 05:16 Dose: 5 mg Citalopram Hydrobromide (Celexa) 40 mg PO QHS [facility] Last Admin: 03/13/18 00:23 Dose: 40 mg Clonazepam (Klonopin) 2 mg PO TID [facility] Last Admin: 03/13/18 05:16 Dose: 2 mg Enoxaparin Sodium (Lovenox) 40 mg SC DAILY@1000 [facility] Fentanyl (Duragesic Patch) 75 mcg TRANSDERM. Q72H [facility] Sodium Chloride () 1,000 mls @ 75 mls/hr IV .[id number] [facility] Stop: 03/13/18 11:49 Last Admin: 03/13/18 05:17 Dose: 75 mls/hr Nitroglycerin/Dextrose () 250 mls @ 6 mls/hr IV .[id number] STA; 10 MCG/MIN PRN Reason: Protocol Stop: 03/14/18 10:51 Last Admin: 03/12/18 23:27 Dose: Not Given Sodium Chloride () 1,000 mls @ 1 mls/hr IV .Q48H PRN PRN Reason: SALINE FLUSH Lisinopril (Zestril) 2.5 mg PO DAILY [facility] Magnesium Hydroxide (Milk Of Magnesia) 30 ml PO DAILY PRN PRN PRN Reason: Constipation Metoclopramide HCl (Reglan) 5 mg IV Q6H PRN PRN PRN Reason: NAUSEA/VOMITING Metoprolol Tartrate (Lopressor (Beta Ministerio)) 25 mg PO BID [facility] Morphine Sulfate () 1 - 2 mg IV Q4H PRN PRN PRN Reason: BACK PAIN Last Admin: 03/13/18 07:43 Dose: 2 mg Nitroglycerin (Nitrostat) 0.4 mg SUBLINGUAL Q5M PRN PRN Reason: CARDIAC/CHEST PAIN Ondansetron HCl (Zofran) 4 mg IV Q6H PRN PRN PRN Reason: NAUSEA/VOMITING Pantoprazole Sodium (Protonix) 20 mg PO DAILY [facility] Sodium Chloride () 500 ml IV BOLUS PRN PRN Reason: VASO-VAGAL PROTOCOL Sodium Chloride () 5 - 30 ml IV UD PRN PRN Reason: SALINE FLUSH Ticagrelor (Brilinta) 90 mg PO BID GOME[facility] Trazodone HCl (Desyrel) 50 mg PO QHS [facility] Last Admin: 03/13/18 00:23 Dose: 50 mg Medical Necessity - Tobacco Use Smoking Status: Current every day smoker Tobacco Use: Cigarettes Assessment/Plan Active and Suspected Problems Unstable angina (Acute) Patient is a 63-year-old lady with past medical history significant for CAD with previous CABG and subsequent stent placement who presented with chest pain and assessment of unstable angina made patient underwent left heart catheterization was noted to have [place] multivessel CAD. She was noted to have a mid left main in-stent restenosis for which she had successful PCI with PTCA. 1. Unstable angina admitted to intensive care unit consult placed to cardiology ; patient seen by Dr. Con Jackson who did perform left heart catheterization was noted to have [place] multivessel CAD. She was noted to have a mid left main in-stent restenosis for which she had successful PCI with PTCA. 2. CAD with previous CABG and stent placement 3. Hypertension-blood pressure controlled, home medications continued with dose adjustment as needed 4. Dyslipidemia-patient is on statin therapy, continued at home dose 5. Degenerative joint disease with significant low back pain patient is being followed by pain management has had epidural steroid injection as outpatient 6. Obstructive sleep apnea 7. Depression with anxiety 8. Mitral valve prolapse 9. Lung nodule followed by pulmonary as outpatient 10. DVT prophylaxis Lovenox Code Visit Inpatient E&M: 09489 Subs Hosp L3
--- NOTE | 2018-03-13 08:23 | CRPHASE1_ITS ---
Patient Data/Charges Roll Filler:: Stephon Castro PCP:: Phani Odom Risk Factors/Lifestyle Smoking Status: Current every day smoker Hx Hypertension: Yes Hx Diabetes Mellitus Type 1: No Hx Diabetes Mellitus Type 2: No Hx Dyslipidemia: Yes Height: 1.63 m Weight:: 70.6 kg BMI: 26.6 Family History: High Cholesterol, Heart Disease, Hypertension Past Cardiac Illness: Coronary Artery Disease, Previous PCI w/Stent, Coronary Artery Bypass Graft Phase I Education Given On:: [place], Nutrition, Antiplatelet medication, CHF, Smoking cessation Issues Affecting Care:: None Knowledge of Condition:: Yes Hospital Course Presenting Symptoms:: squeezing Pain Intensity: 9 Medical/Surgical History Angina:: Yes CAD:: Yes Diabetes:: No Hypertension:: Yes Dyslipidemia:: Yes Arthritis:: Yes Depression:: Yes Anxiety:: Yes CABG: Yes PTCA:: Yes Discharge/Home/Social Eval Discharge Disposition: Home Marital Status: - pt states she does not think she will be attending cardiac rehab. 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
--- NOTE | 2018-03-13 08:23 | CRPH1.INSTRU ---
General Education CAD and cardiac anatomy and function:: Not instructed Explanation of diagnoses and procedures:: Not instructed Sign/Symptoms of OK:: Not instructed Antiplatelet therapy: Needs reinforcement Proper use of NTG-SL: Not instructed Emergency procedures and activation of EMS: Not instructed Compliance of all prescribed medications: Not instructed Smoking Patient Nicotine/Smoking Risk Factors Are:: Cigarettes Nicotine/Smoking Response Code:: Needs reinforcement - pt states unfortunately I still smoke Dyslipidemia Dyslipidemia Response Code:: Not instructed Overweight/Obesity Overweight/Obesity:: Not instructed Hypertension Hypertension:: Needs reinforcement Heart Disease Patient Heart Disease Risk Factors Are:: Previous cardiac event Heart Disease Response Code:: Needs reinforcement Diabetes Patient Diabetes Risk Factors Are:: No documented hx of diabetes Metabolic Syndrome Metabolic Syndrome Response Code:: Not instructed Sedentary Sedentary Response Code:: Not instructed Stress Stress Response Code:: Not instructed
[2018-03-13 08:45] LABS: ACT Activated Clotting Time 125 sec (74-137)
--- NOTE | 2018-03-13 10:23 | CASEMGMT ---
See RN MENDEL Assessment link-Copies of pt's Adv Dir provided to her from e-chart. Reviewed with pt. She states she would like to redo these. SUNIL Field called and will see pt today. - Pt's has home health and caregiver that comes 2x week and assists with housekeeping. -Pt states she drives and is able to f/u with physicians. -Brillinta card given to pt. MARIA TERESA OGLESBY discussed if cost becomes difficult (pt states she is on limited funds) to call cardiology nurse and notify so they can assist with recommendations. James GALEANON RN ACM
[2018-03-13] MEDS: Metoprolol Tartrate 25 MG Tablet PO (10:24)
[2018-03-13] MEDS: TICAGRELOR 90 MG TABLET PO ×2 (10:24→21:46)
[2018-03-13] MEDS: Enoxaparin 40 MG/0.4 ML Syringe SC (10:25)
[2018-03-13] MEDS: Pantoprazole Sodium 20 MG Tablet PO (10:25)
[2018-03-13] MEDS: Lisinopril 2.5 MG Tablet PO (10:25)
--- NOTE | 2018-03-13 10:38 | PCM.PN.CARD ---
Subjectve: Patient feels well ,denies chest pain or shortness of breath. Objective: Vital Signs Temp Pulse Resp BP Pulse Ox 98.7 F 73 23 H 114/73 93 03/13/18 07:00 03/13/18 10:24 03/13/18 08:55 03/13/18 10:24 03/13/18 08:55 Oxygen Flow Rate (L/min) 2 Oxygen Delivery Method Room Air Weight: 70.6 kg Body Mass Index (BMI) 26.4 Intake and Output for Last 24 Hours 03/11/18 03/12/18 03/13/18 23:59 23:59 23:59 Intake Total 685 / 685 Balance 685 / 685 General: Awake, Alert, Oriented x 3 HEENT: PERRL, EOMI, Sclera Non Icteric Neck: Supple Lungs: Clear to auscultation Cardiovascular: Regular Rhythm, Normal S1, Normal S2 Abdomen: Soft Extremities: No Cyanosis, No Clubbing, - - Cath site: Right groin area healing well. Psych/Mental Status: Appropriate 03/12/18 23:45: Troponin I < 0.02 03/13/18 03:30: Sodium 136, Potassium 4.5, Chloride 105, Carbon Dioxide 22.0, Anion Gap 9, BUN 11, Creatinine 0.84, Est GFR (MDRD) Af Amer 88, Est GFR (MDRD) Non-Af 73, BUN/Creatinine Ratio 13.0, Glucose 120 H, Calcium 8.0 L 03/13/18 03:30: WBC 4.9, RBC 4.14 L, Hgb 12.8, Hct 38.0, MCV 91.8, MCH 30.9, MCHC 33.7, RDW 13.6, RDW Differential 45.1 H, Plt Count 138 L, MPV 10.4, Immature Gran % (Auto) 0.000, Neut % (Auto) 76.1 H, Lymph % (Auto) 22.7, [place] % (Auto) 1.0, Eos % (Auto) 0.0, Baso % (Auto) 0.2, Absolute Neuts (auto) 3.7, Total Counted Not Reportable 03/13/18 03:30: Troponin I < 0.02 03/13/18 07:32: Troponin I < 0.02 Rhythm: Sinus rhythm EKG: ECHO: Stress Test: Cardiac Cath: PCI: CT Surgery: Holter monitor: EPS: PPM: CXR: Chest CT Scan: Medical Necessity - Tobacco Use Smoking Status: Current every day smoker Tobacco Use: Cigarettes Assessment/Plan Assessment: 1. Unstable angina status post PTCA with angiosculpt and balloon dilatation of left main in-stent restenosis. 2. CAD with previous bypass 3. Cardiomyopathy with severe LV systolic dysfunction 4. Mitral regurgitation 5. Hypertension 6. Obstructive sleep apnea 7. Depression 8. Lung nodule Plan: Doing well. No recurrence of angina. Hemodynamically stable. Cardiomyopathy is compensated. Continue current medical management. Dr. Stephon Castro for further cardiac care and management.
[2018-03-13 11:02] LABS: CPK Total, Creatine Kinase 33 U/L (26-192)
--- NOTE | 2018-03-13 13:42 | CASEMGMT ---
Social Work Note RN MENDEL Randall updated this worker that pt is interested in completing advanced directives. SW met with pt to complete advanced directives. Pt denied additional needs or concerns at this time. Plan: Return home at discharge Rashida Enamorado [employer]OLLEY WORKER, EMT I/85
[2018-03-13] MEDS: oxyCODONE 5 MG Tablet PO ×2 (13:54→21:47)
[2018-03-13] MEDS: Metoclopramide 10 MG/2 ML Vial 5 MG IV (14:02)
--- NOTE | 2018-03-13 17:45 | PN.CARD_ITS ---
Subjectve: The patient is awake and alert. She denies any ongoing chest discomfort or difficulty breathing. Objective: Vital Signs Temp Pulse Resp BP Pulse Ox 98.5 F 60 21 H 141/75 H 98 03/13/18 12:00 03/13/18 14:00 03/13/18 14:00 03/13/18 14:00 03/13/18 14:00 Oxygen Flow Rate (L/min) 2 Oxygen Delivery Method Room Air Weight: 155 lb 10.342 oz Body Mass Index (BMI) 26.4 Intake and Output for Last 24 Hours 03/11/18 03/12/18 03/13/18 23:59 23:59 23:59 Intake Total 1535 / 1535 Balance 1535 / 1535 General: Awake, Alert, Oriented x 3, Cooperative, No Acute Distress Neck: No JVD Lungs: Clear to auscultation Cardiovascular: Regular Rhythm, Normal S1, Normal S2 Murmur Murmur: Grade 3/6, Soft, Holosystolic, LLSB, [place], Axilla Vascular: Normal Femoral Pulses Abdomen: Bowel Sounds Present, Soft, Non Tender Extremities: No Cyanosis, No Clubbing, No edema 03/12/18 23:45: Troponin I < 0.02 03/13/18 03:30: Sodium 136, Potassium 4.5, Chloride 105, Carbon Dioxide 22.0, Anion Gap 9, BUN 11, Creatinine 0.84, Est GFR (MDRD) Af Amer 88, Est GFR (MDRD) Non-Af 73, BUN/Creatinine Ratio 13.0, Glucose 120 H, Calcium 8.0 L 03/13/18 03:30: WBC 4.9, RBC 4.14 L, Hgb 12.8, Hct 38.0, MCV 91.8, MCH 30.9, MCHC 33.7, RDW 13.6, RDW Differential 45.1 H, Plt Count 138 L, MPV 10.4, Immature Gran % (Auto) 0.000, Neut % (Auto) 76.1 H, Lymph % (Auto) 22.7, [place] % (Auto) 1.0, Eos % (Auto) 0.0, Baso % (Auto) 0.2, Absolute Neuts (auto) 3.7, Total Counted Not Reportable 03/13/18 03:30: Troponin I < 0.02 03/13/18 07:32: Troponin I < 0.02 03/13/18 14:20: Troponin I < 0.02 Rhythm: Sinus rhythm EKG: Sinus rhythm; low voltage QRS limb leads; poor R-wave progression Medical Necessity - Tobacco Use Smoking Status: Current every day smoker Tobacco Use: Cigarettes Assessment/Plan 1. CAD status post CABG status post remote PCI status post recent PCI The patient is now status post evaluation for concerns of unstable angina pectoris with repeat diagnostic cardiac catheterization leading to PCI (no stent ) of the left main coronary artery in-stent restenosis. At present time the patient appears to be doing well with respect in no acute cardiovascular symptoms or adverse events. She will need to continue risk factor modification and medical management. This does include a combination of aspirin, antiplatelet therapy, nitrates, beta -blockers, afterload reducing agents, lipid-lowering agents, etc. as deemed appropriate and tolerated. With respect to her antiplatelet agents ideally they would not be interrupted for any noncardiovascular diagnostic studies/procedure unless otherwise urgent or emergent in order to minimize the potential for acute in-stent restenosis. The length of time before her antiplatelet therapy can be interrupted will need to be reviewed with interventional cardiology. 2. Ischemic mediated cardiomyopathy The patient's overall LV systolic function appears to have declined. This may be related to her recent findings of progressive CAD especially involving the left main coronary artery. She will need to continue medical management. Hopefully over time her LV systolic function will improve. This can be reassessed in the future with a transthoracic echocardiogram. 3. Mitral valve regurgitation Again she will need to continue medical management. Her mitral valve apparatus can be followed over time with echocardiographic studies to monitor for any obvious improvement status post her PCI procedure. 4. Hyperlipidemia He will continue medical management and follow-up. 5. Hypertension Her pressure will be followed. Her medications can be adjusted as needed. This note was generated with [employer] software. It may contain incorrect words, spelling, and punctuation that were not noted in checking the note before signing.
[2018-03-13] MEDS: Ondansetron 4 MG/2 ML Vial IV (19:38)
[2018-03-13] MEDS: 0.9% NaCl Peripheral Flush Adult/Peds IV (19:38)
[2018-03-13] MEDS: Atorvastatin Calcium 40 MG Tablet PO (21:46)
[2018-03-14] VITALS (11 sets, daily range): BP systolic 96–132; BP diastolic 51–85; PULSE 43–55; RESP 12–18; TEMP 36.6–36.8; O2SAT 91–95
[2018-03-14] MEDS: busPIRone 5 MG Tablet PO (05:27)
[2018-03-14] MEDS: clonazePAM 1 MG Tablet 2 MG PO (05:27)
[2018-03-14] MEDS: Morphine 4 MG/ML Syringe IV (05:28)
[2018-03-14] MEDS: Metoclopramide 10 MG/2 ML Vial 5 MG IV (05:28)
[2018-03-14] MEDS: 0.9% NaCl Peripheral Flush Adult/Peds IV (05:29)
--- NOTE | 2018-03-14 05:55 | EKG12_ITS ---
Test Reason : AM Blood Pressure : / mmHG Vent. Rate : 041 BPM Atrial Rate : 041 BPM P-R Int : 170 ms QRS Dur : 100 ms QT Int : 542 ms P-R-T Axes : -05 012 040 degrees QTc Int : 447 ms Marked sinus bradycardia Abnormal ECG When compared with ECG of 13-MAR-2018 03:45, MANUAL COMPARISON REQUIRED, DATA IS UNCONFIRMED Confirmed by JOSEPHINE CHOI, LONA ([id number]), proposal editor JHONY MOLINA ([id number]) on 03/17/2018 2:25:35 PM Referred By: Con Jackson Confirmed By:LONA BURTON MD
[2018-03-14] MEDS: Aspirin E.C. 81 MG Tablet PO (08:15)
[2018-03-14] MEDS: TICAGRELOR 90 MG TABLET PO (08:15)
[2018-03-14] MEDS: Enoxaparin 40 MG/0.4 ML Syringe SC (08:16)
[2018-03-14] MEDS: Lisinopril 2.5 MG Tablet PO (08:17)
[2018-03-14] MEDS: Pantoprazole Sodium 20 MG Tablet PO (08:17)
--- NOTE | 2018-03-14 08:24 | PCM.DC ---
- Discharge Diagnoses Current Active Problems: Current Active and Chronic Problems Unstable angina (Acute) You will use the following diet at home:: Cardiac Discharge Activity: Return to Normal Activity Instructions: ED Chest Pain NonCardiac Allergies/Adverse Reactions: Allergies Iodinated Contrast- Oral and IV Dye [Iodinated Contrast Media - IV Dye] Allergy (Verified 03/12/18 16:52) Other tetracycline [Tetracycline] Allergy (Verified 03/12/18 16:52) Hives Medications to take at Discharge Aspirin [Aspirin, Baby] 81 mg PO DAILY@0800 02/04/16 Citalopram [Celexa] 40 mg PO QHS 02/04/16 Omeprazole [Prilosec] 20 mg PO DAILY 02/04/16 busPIRone [Buspar] 5 mg PO TID 02/04/16 fentaNYL patch [Duragesic patch] 75 mcg TRANSDERM. Q72H 02/04/16 Nitroglycerin [Nitrostat] 0.4 mg SUBLINGUAL Q5M PRN #10 tablet 04/18/17 Clopidogrel Bisulfate [Plavix] 75 mg PO DAILY 01/27/18 Cholecalciferol (Vitamin D3) [Vitamin D3] 5,000 unit PO DAILY 03/12/18 Clonazepam [Klonopin] 2 mg PO TID 03/12/18 Cyclobenzaprine [Flexeril] 10 mg PO TID PRN PRN 03/12/18 Metoprolol Tartrate [Lopressor (beta johny)] 12.5 mg PO QHS 03/12/18 Ubidecarenone [Coenzyme Q10] 100 mg PO DAILY 03/12/18 traZODone [Desyrel] 50 mg PO QHS 03/12/18 Atorvastatin Calcium [Lipitor] 40 mg PO QHS #90 tab 03/14/18 Lisinopril [Zestril] 2.5 mg PO DAILY #90 tab 03/14/18 Ticagrelor [Brilinta] 90 mg PO BID #180 tab 03/14/18 The following prescriptions were given: Atorvastatin Calcium [Lipitor] 40 mg PO QHS #90 tab Lisinopril [Zestril] 2.5 mg PO DAILY #90 tab Ticagrelor [Brilinta] 90 mg PO BID #180 tab Primary Care Physician: Phani Odom MD [Primary Care Provider] - Please follow up with your Primary Care Physician in: in 1-2 weeks Please Follow Up With: Stephon Castro MD When: in 2-3 weeks Proposed Discharge Date: 03/14/18
--- NOTE | 2018-03-14 08:26 | PCM.DC.SUM ---
Discharge Date and Diagnosis - Problem List Patient Problems: Active and Suspected Problems Unstable angina (Acute) Date of Admission: 03/12/18 Date of Discharge: 03/14/18 - Primary Discharge Diagnosis Active and Suspected Problems Unstable angina (Acute) - Secondary Discharge Diagnosis Chronic Problems Status post coronary artery bypass graft (Chronic) Coronary artery disease (Chronic) Dyslipidemia (Chronic) Essential hypertension (Chronic) History of mitral valve prolapse (Chronic) Obstructive sleep apnea (Chronic) Degenerative disc disease, lumbar (Chronic) Osteoarthritis (Chronic) Lung nodule < 6cm on CT (Chronic) Tobacco abuse (Chronic) Hospital Course and Treatment Imaging Results: Clinical Impression(s) from Imaging Studies Chest X-Ray 03/12/18 17:16 IMPRESSION: No radiographic evidence of acute cardiopulmonary disease. Electronically Signed: Rossy Goetz MD at 17:37 EDT , Service support , Operations: None Summary of Care Provided: Patient is a 63-year-old lady with past medical history significant for CAD with previous CABG and subsequent stent placement who presented with chest pain and assessment of unstable angina made patient underwent left heart catheterization was noted to have [place] multivessel CAD. She was noted to have a mid left main in-stent restenosis for which she had successful PCI with PTCA. 1. Unstable angina admitted to intensive care unit consult placed to cardiology; patient seen by Dr. Con Jackson who did perform left heart catheterization was noted to have [place] multivessel CAD. She was noted to have a mid left main in-stent restenosis for which she had successful PCI with PTCA. Patient was discharged home on optimal medical treatment including aspirin, Brilinta, beta blockers, GAUTAM inhibitors, and statin therapy. Plan is for patient to follow-up with Dr. Roel edwards as outpatient 2. CAD with previous CABG and stent placement 3. Hypertension-blood pressure controlled, home medications continued with dose adjustment as needed 4. Dyslipidemia-patient is on statin therapy, continued at home dose 5. Degenerative joint disease with significant low back pain patient is being followed by pain management has had epidural steroid injection as outpatient 6. Obstructive sleep apnea 7. Depression with anxiety 8. Mitral valve prolapse 9. Lung nodule followed by pulmonary as outpatient 10. DVT prophylaxis Lovenox Discharge Diet: Low fat/ Low Cholesterol Discharge Activity: Return to Normal Activity Home Medications: Medications to take at Discharge Aspirin [Aspirin, Baby] 81 mg PO DAILY@0800 02/04/16 Citalopram [Celexa] 40 mg PO QHS 02/04/16 Omeprazole [Prilosec] 20 mg PO DAILY 02/04/16 busPIRone [Buspar] 5 mg PO TID 02/04/16 fentaNYL patch [Duragesic patch] 75 mcg TRANSDERM. Q72H 02/04/16 Nitroglycerin [Nitrostat] 0.4 mg SUBLINGUAL Q5M PRN #10 tablet 04/18/17 Clopidogrel Bisulfate [Plavix] 75 mg PO DAILY 01/27/18 Cholecalciferol (Vitamin D3) [Vitamin D3] 5,000 unit PO DAILY 03/12/18 Clonazepam [Klonopin] 2 mg PO TID 03/12/18 Cyclobenzaprine [Flexeril] 10 mg PO TID PRN PRN 03/12/18 Metoprolol Tartrate [Lopressor (beta johny)] 12.5 mg PO QHS 03/12/18 Ubidecarenone [Coenzyme Q10] 100 mg PO DAILY 03/12/18 traZODone [Desyrel] 50 mg PO QHS 03/12/18 Atorvastatin Calcium [Lipitor] 40 mg PO QHS #90 tab 03/14/18 Lisinopril [Zestril] 2.5 mg PO DAILY #90 tab 03/14/18 Ticagrelor [Brilinta] 90 mg PO BID #180 tab 03/14/18 Following Prescrptions Were Given to Patient: Atorvastatin Calcium [Lipitor] 40 mg PO QHS #90 tab Lisinopril [Zestril] 2.5 mg PO DAILY #90 tab Ticagrelor [Brilinta] 90 mg PO BID #180 tab Primary Care Physician: Phani Odom MD [Primary Care Provider] - Please follow up with your Primary Care Physician in: in 1-2 weeks Please Follow Up With: Stephon Castro MD When: in 2-3 weeks Patient Instructions: ED Chest Pain NonCardiac Disposition: Home Minutes spent on discharge:: 45 Patient Condition:: Stable Medical Necessity - Tobacco Use Smoking Status: Current every day smoker Tobacco Use: Cigarettes Meaningful Use Info Meaningful Use Diagnoses (Choose all that apply): None applicable Code Visit Inpatient E&M: 20650 Disch Hosp
--- NOTE | 2018-03-14 08:29 | DS.PCM_ITS ---
Discharge Date and Diagnosis - Problem List Patient Problems: Active and Suspected Problems Unstable angina (Acute) Date of Admission: 03/12/18 Date of Discharge: 03/14/18 - Primary Discharge Diagnosis Active and Suspected Problems Unstable angina (Acute) - Secondary Discharge Diagnosis Chronic Problems Status post coronary artery bypass graft (Chronic) Coronary artery disease (Chronic) Dyslipidemia (Chronic) Essential hypertension (Chronic) History of mitral valve prolapse (Chronic) Obstructive sleep apnea (Chronic) Degenerative disc disease, lumbar (Chronic) Osteoarthritis (Chronic) Lung nodule < 6cm on CT (Chronic) Tobacco abuse (Chronic) Hospital Course and Treatment Imaging Results: Clinical Impression(s) from Imaging Studies Chest X-Ray 03/12/18 17:16 IMPRESSION: No radiographic evidence of acute cardiopulmonary disease. Electronically Signed: Rossy Goetz MD at 17:37 EDT , Service support , Operations: None Summary of Care Provided: Patient is a 63-year-old lady with past medical history significant for CAD with previous CABG and subsequent stent placement who presented with chest pain and assessment of unstable angina made patient underwent left heart catheterization was noted to have [place] multivessel CAD. She was noted to have a mid left main in-stent restenosis for which she had successful PCI with PTCA. 1. Unstable angina admitted to intensive care unit consult placed to cardiology ; patient seen by Dr. Con Jackson who did perform left heart catheterization was noted to have [place] multivessel CAD. She was noted to have a mid left main in-stent restenosis for which she had successful PCI with PTCA. Patient was discharged home on optimal medical treatment including aspirin, Brilinta, beta blockers, GAUTAM inhibitors, and statin therapy. Plan is for patient to follow-up with Dr. Roel edwards as outpatient 2. CAD with previous CABG and stent placement 3. Hypertension-blood pressure controlled, home medications continued with dose adjustment as needed 4. Dyslipidemia-patient is on statin therapy, continued at home dose 5. Degenerative joint disease with significant low back pain patient is being followed by pain management has had epidural steroid injection as outpatient 6. Obstructive sleep apnea 7. Depression with anxiety 8. Mitral valve prolapse 9. Lung nodule followed by pulmonary as outpatient 10. DVT prophylaxis Lovenox Discharge Diet: Low fat/ Low Cholesterol Discharge Activity: Return to Normal Activity Home Medications: Medications to take at Discharge Aspirin [Aspirin, Baby] 81 mg PO DAILY@0800 02/04/16 Citalopram [Celexa] 40 mg PO QHS 02/04/16 Omeprazole [Prilosec] 20 mg PO DAILY 02/04/16 busPIRone [Buspar] 5 mg PO TID 02/04/16 fentaNYL patch [Duragesic patch] 75 mcg TRANSDERM. Q72H 02/04/16 Nitroglycerin [Nitrostat] 0.4 mg SUBLINGUAL Q5M PRN #10 tablet 04/18/17 Clopidogrel Bisulfate [Plavix] 75 mg PO DAILY 01/27/18 Cholecalciferol (Vitamin D3) [Vitamin D3] 5,000 unit PO DAILY 03/12/18 Clonazepam [Klonopin] 2 mg PO TID 03/12/18 Cyclobenzaprine [Flexeril] 10 mg PO TID PRN PRN 03/12/18 Metoprolol Tartrate [Lopressor (beta johny)] 12.5 mg PO QHS 03/12/18 Ubidecarenone [Coenzyme Q10] 100 mg PO DAILY 03/12/18 traZODone [Desyrel] 50 mg PO QHS 03/12/18 Atorvastatin Calcium [Lipitor] 40 mg PO QHS #90 tab 03/14/18 Lisinopril [Zestril] 2.5 mg PO DAILY #90 tab 03/14/18 Ticagrelor [Brilinta] 90 mg PO BID #180 tab 03/14/18 Following Prescrptions Were Given to Patient: Atorvastatin Calcium [Lipitor] 40 mg PO QHS #90 tab Lisinopril [Zestril] 2.5 mg PO DAILY #90 tab Ticagrelor [Brilinta] 90 mg PO BID #180 tab Primary Care Physician: Phani Odom MD [Primary Care Provider] - Please follow up with your Primary Care Physician in: in 1-2 weeks Please Follow Up With: Stephon Castro MD When: in 2-3 weeks Patient Instructions: ED Chest Pain NonCardiac Disposition: Home Minutes spent on discharge:: 45 Patient Condition:: Stable Medical Necessity - Tobacco Use Smoking Status: Current every day smoker Tobacco Use: Cigarettes Meaningful Use Info Meaningful Use Diagnoses (Choose all that apply): None applicable Code Visit Inpatient E&M: 57876 Disch Hosp
[2018-03-14] MEDS: oxyCODONE 5 MG Tablet PO (09:45)
--- NOTE | 2018-03-14 11:35 | PCM.PN.CARD ---
Subjectve: The patient was evaluated earlier this day. She denied any ongoing chest discomfort or difficulty breathing. Her only concern is her chronic back discomfort. Objective: Vital Signs Temp Pulse Resp BP Pulse Ox 97.9 F 47 L 12 113/85 H 92 03/14/18 08:26 03/14/18 08:26 03/14/18 08:26 03/14/18 08:26 03/14/18 08:26 Oxygen Flow Rate (L/min) 2 Oxygen Delivery Method Room Air Weight: 154 lb 8.705 oz Body Mass Index (BMI) 26.4 Intake and Output for Last 24 Hours 03/12/18 03/13/18 03/14/18 23:59 23:59 23:59 Intake Total 2014 360 / 360 Output Total 600 / 600 Balance 1415 / 1415 360 / 360 General: Awake, Alert, Oriented x 3, Cooperative, No Acute Distress Neck: No JVD Lungs: Clear to auscultation Cardiovascular: Regular Rhythm, Normal S1, Normal S2 Murmur Murmur: Grade 3/6, Soft, Holosystolic, LLSB, [place], Axilla Vascular: Normal Femoral Pulses Abdomen: Bowel Sounds Present, Soft, Non Tender Extremities: No edema 03/13/18 14:20: Troponin I < 0.02 Rhythm: Sinus rhythm Medical Necessity - Tobacco Use Smoking Status: Current every day smoker Tobacco Use: Cigarettes Assessment/Plan 1. CAD status post CABG status post remote PCI status post recent PCI The patient is now status post evaluation for concerns of unstable angina pectoris with repeat diagnostic cardiac catheterization leading to PCI (no stent) of the left main coronary artery in-stent restenosis. At present time the patient appears to be doing well with respect in no acute cardiovascular symptoms or adverse events. She will need to continue risk factor modification and medical management. This does include a combination of aspirin, antiplatelet therapy, nitrates, beta-blockers, afterload reducing agents, lipid-lowering agents, etc. as deemed appropriate and tolerated. With respect to her antiplatelet agents ideally they would not be interrupted for any noncardiovascular diagnostic studies/procedure unless otherwise urgent or emergent in order to minimize the potential for acute in-stent restenosis. This was discussed with her cut lace machine operator, Dr. Sommer of [facility]. At the present time he stated ideally she would not have her antiplatelet agents interrupted for approximately 6 months, however, if she could not wait this long then hopefully she would not have to interrupt her antiplatelet therapy for at least 3 months. 2. Ischemic mediated cardiomyopathy The patient's overall LV systolic function appears to have declined. This may be related to her recent findings of progressive CAD especially involving the left main coronary artery. She will need to continue medical management. Hopefully over time her LV systolic function will improve. This can be reassessed in the future with a transthoracic echocardiogram. 3. Mitral valve regurgitation Again she will need to continue medical management. Her mitral valve apparatus can be followed over time with echocardiographic studies to monitor for any obvious improvement status post her PCI procedure. 4. Hyperlipidemia He will continue medical management and follow-up. 5. Hypertension Her pressure will be followed. Her medications can be adjusted as needed. : The patient's case was discussed with Dr. Akins. This note was generated with [employer] dictation software. It may contain incorrect words, spelling, and punctuation that were not noted in checking the note before signing.
--- NOTE | 2018-03-14 11:38 | PN.CARD_ITS ---
Subjectve: The patient was evaluated earlier this day. She denied any ongoing chest discomfort or difficulty breathing. Her only concern is her chronic back discomfort. Objective: Vital Signs Temp Pulse Resp BP Pulse Ox 97.9 F 47 L 12 113/85 H 92 03/14/18 08:26 03/14/18 08:26 03/14/18 08:26 03/14/18 08:26 03/14/18 08:26 Oxygen Flow Rate (L/min) 2 Oxygen Delivery Method Room Air Weight: 154 lb 8.705 oz Body Mass Index (BMI) 26.4 Intake and Output for Last 24 Hours 03/12/18 03/13/18 03/14/18 23:59 23:59 23:59 Intake Total 2014 360 / 360 Output Total 600 / 600 Balance 1415 / 1415 360 / 360 General: Awake, Alert, Oriented x 3, Cooperative, No Acute Distress Neck: No JVD Lungs: Clear to auscultation Cardiovascular: Regular Rhythm, Normal S1, Normal S2 Murmur Murmur: Grade 3/6, Soft, Holosystolic, LLSB, [place], Axilla Vascular: Normal Femoral Pulses Abdomen: Bowel Sounds Present, Soft, Non Tender Extremities: No edema 03/13/18 14:20: Troponin I < 0.02 Rhythm: Sinus rhythm Medical Necessity - Tobacco Use Smoking Status: Current every day smoker Tobacco Use: Cigarettes Assessment/Plan 1. CAD status post CABG status post remote PCI status post recent PCI The patient is now status post evaluation for concerns of unstable angina pectoris with repeat diagnostic cardiac catheterization leading to PCI (no stent ) of the left main coronary artery in-stent restenosis. At present time the patient appears to be doing well with respect in no acute cardiovascular symptoms or adverse events. She will need to continue risk factor modification and medical management. This does include a combination of aspirin, antiplatelet therapy, nitrates, beta -blockers, afterload reducing agents, lipid-lowering agents, etc. as deemed appropriate and tolerated. With respect to her antiplatelet agents ideally they would not be interrupted for any noncardiovascular diagnostic studies/procedure unless otherwise urgent or emergent in order to minimize the potential for acute in-stent restenosis. This was discussed with her process development technician, Dr. Sommer of [employer]. At the present time he stated ideally she would not have her antiplatelet agents interrupted for approximately 6 months, however, if she could not wait this long then hopefully she would not have to interrupt her antiplatelet therapy for at least 3 months. 2. Ischemic mediated cardiomyopathy The patient's overall LV systolic function appears to have declined. This may be related to her recent findings of progressive CAD especially involving the left main coronary artery. She will need to continue medical management. Hopefully over time her LV systolic function will improve. This can be reassessed in the future with a transthoracic echocardiogram. 3. Mitral valve regurgitation Again she will need to continue medical management. Her mitral valve apparatus can be followed over time with echocardiographic studies to monitor for any obvious improvement status post her PCI procedure. 4. Hyperlipidemia He will continue medical management and follow-up. 5. Hypertension Her pressure will be followed. Her medications can be adjusted as needed. : The patient's case was discussed with Dr. Akins. This note was generated with [employer] dictation software. It may contain incorrect words, spelling, and punctuation that were not noted in checking the note before signing.
== END 2018-03-14 10:28 | disposition home or self-care (01) | DRG 247 ==
LOC: ED 20:33 → ICU 20:54
PROVIDERS: Internal Medicine Cardiovascular Disease; Admitting Provider Hospitalist; Emergency Provider Emergency Medicine; Family Provider Family Medicine; PCP Family Medicine; Visit Provider Internal Medicine
DX: I25.110 Atherosclerotic heart disease of native coronary artery with unstable angina pectoris (principal); I25.700 Atherosclerosis of coronary artery bypass graft(s), unspecified, with unstable angina pectoris; I34.1 Nonrheumatic mitral (valve) prolapse; I34.0 Nonrheumatic mitral (valve) insufficiency; I25.5 Ischemic cardiomyopathy; I51.89 Other ill-defined heart diseases; Z95.5 Presence of coronary angioplasty implant and graft; Z95.1 Presence of aortocoronary bypass graft; I25.2 Old myocardial infarction; I10 Essential (primary) hypertension; K21.9 Gastro-esophageal reflux disease without esophagitis; G47.33 Obstructive sleep apnea (adult) (pediatric); E78.5 Hyperlipidemia, unspecified; F41.9 Anxiety disorder, unspecified; F32.9 Major depressive disorder, single episode, unspecified; M51.36 Other intervertebral disc degeneration, lumbar region; R91.1 Solitary pulmonary nodule; M19.90 Unspecified osteoarthritis, unspecified site; Z79.82 Long term (current) use of aspirin; Z79.899 Other long term (current) drug therapy; F17.210 Nicotine dependence, cigarettes, uncomplicated
CPT/HCPCS: 71045; 80048; 82550; 84484; 85025; 85347; 85610; 85730; 87641; 92920; 92978; 93005; 93459; 93567; 99152; 99153; 99285; J0153; J7030; Q9967; A4216; C1725; C1753; C1769; C1887; J2405

== ENCOUNTER → 2018-03-31 08:55 | Outpatient (CLI) | payer MEDICARE, SELFPAY ==
[2018-03-13 08:23] VITALS: BMI 26.6
--- NOTE | 2018-03-31 09:00 | AAAS_ITS ---
Reason For Study: ATHEROSCLEROTIC HEART DISEASE Aorta Measurements Aorta Doppler Measurements Proximal aorta measures1.2 X 1.4cm. in cross- Peak systolic flow velocities within the proximal sectional axis. aorta measure 73 cm/sec. Proximal aorta measures1.4cm. in longitudinal Peak systolic flow velocities within the mid axis. aorta measure 41 cm/sec. Mid aorta measures1.4 X 4.5cm. in cross-sectionalPeak systolic flow velocities within the distal axis. aorta measure 36 cm/sec. Mid aorta measures1.4cm. in longitudinal axis. Distal aorta measures1.3 X 1.3cm. in cross- sectional axis. Distal aorta measures1.5cm. in longitudinal axis. Left Iliac Artery Left iliac artery measures .7 cm. in the longitudinal axis. Left iliac artery measures .7 X .8 cm. in the cross-sectional axis. Peak systolic velocity in the left iliac artery measures 79 cm/sec. Right Iliac Artery Right iliac artery measures .8 cm. in the longitudinal axis. Right iliac artery measures .8 X 1.2 cm. in the cross-sectional axis. Peak systolic velocity in the right iliac artery measures 85 cm/sec. Procedure Exam performed in department. Interpretation Summary 1. no aortoiliac aneurysm or stenosis. Ordering Physician: Stephon Castro Referring Physician: RADHA FULTON Performed By: Rita Salcedo, ALISCS, RVT
== END ==
PROVIDERS: Family Provider Family Medicine; PCP Family Medicine; Visit Provider Internal Medicine Cardiovascular Disease
DX: I25.118 Atherosclerotic heart disease of native coronary artery with other forms of angina pectoris (principal)
CPT/HCPCS: 76706

== ENCOUNTER → 2018-03-31 09:59 | Outpatient (CLI) | payer MEDICARE, SELFPAY ==
[2018-03-13 08:23] VITALS: BMI 26.6
== END ==
PROVIDERS: Family Provider Family Medicine; PCP Family Medicine; Visit Provider Internal Medicine Cardiovascular Disease
DX: Z00.00 Encounter for general adult medical examination without abnormal findings (principal)

== ENCOUNTER 2018-04-06 08:00 | Outpatient (RCR) | payer MEDICARE, SELFPAY ==
[2018-03-13 08:23] VITALS: BMI 26.6
== END 2018-04-06 23:59 ==
LOC: CR 08:00
PROVIDERS: Family Provider Family Medicine; PCP Family Medicine; Visit Provider Internal Medicine Cardiovascular Disease
DX: I25.118 Atherosclerotic heart disease of native coronary artery with other forms of angina pectoris (principal)
CPT/HCPCS: 92971; G0166

== ENCOUNTER 2018-05-05 08:00 | Outpatient (RCR) | payer MEDICARE, SELFPAY ==
[2018-03-13 08:23] VITALS: BMI 26.6
== END 2018-05-06 23:59 ==
LOC: CR 08:00
PROVIDERS: Family Provider Family Medicine; PCP Family Medicine; Visit Provider Internal Medicine Cardiovascular Disease
DX: I25.118 Atherosclerotic heart disease of native coronary artery with other forms of angina pectoris (principal)
CPT/HCPCS: 92971; G0166

== ENCOUNTER → 2018-05-19 14:35 | Outpatient (CLI) | payer MEDICARE, SELFPAY ==
[2018-03-13 08:23] VITALS: BMI 26.6
--- NOTE | 2018-05-19 14:36 | ECHOD_ITS ---
Reason For Study: S/P NC Procedure This was a 2D Doppler, Color Flow transthoracic echocardiogram. The exam was of fair technical quality due to diminished acoustic windows. The study was technically difficult. Exam performed in department. Left Ventricle Normal LV size. Mild segmental systolic dysfunction (see wall motion). The estimated ejection fraction is 55 %. Transmitral doppler flow suggestive of impaired relaxation of left ventricle. Posterior-Basal: Hypokinetic. Infero-Basal: Akinetic. Mid-Inferior: Hypokinetic. Mid-inferoseptal : Hypokinetic. Mid-anteroseptal : Hypokinetic. Anterior [place] : Hypokinetic. Inferior [place] : Hypokinetic. Septal [place] : Hypokinetic. Right Ventricle Normal RV size. Normal systolic function. Atria The left atrium is moderately enlarged. Normal right atrium. No doppler evidence for ASD. Mitral Valve There is no mitral annular calcification. Mild diffuse mitral valve thickening. Mild mitral valve prolapse. Mild (1+) eccentric mitral valve insufficiency. Tricuspid Valve Normal tricuspid valve. Trivial tricuspid valve insufficiency. Unable to estimate RV systolic pressure/pulmonary artery pressure due to technically difficult study. Aortic Valve Trisinus/trileaflet aortic valve. Normal aortic valve. Pulmonic Valve The pulmonic valve is not well visualized. Great Vessels Normal sized aortic root. Pericardium/Pleural No pericardial effusion. MMode/2D Measurements & Calculations LVIDd: 5.3 cm IVSd: 0.93 cm Ao root diam: 3.2 cm LVIDs: 4.3 cm LVPWd: 1.2 cm RVDd: 3.2 cm FS: 19.4 % LAV(MOD-bp): 58.5 ml LA A4 area: 19.8 cm2 RA A4 area: 12.0 cm2 LAV(MOD-bp) Indexed: 34.5 ml/m2 LAV(MOD-sp2): 54.3 ml LAV(MOD-sp4): 57.8 ml Time Measurements MV dec time: 0.50 sec Doppler Measurements & Calculations MV E max talib: 105.8 cm/sec Lat Peak E' Talib: 7.3 cm/sec Med Peak E' Talib: 3.4 cm/sec MV A max talib: 133.3 cm/sec E/E' lat: 14.5 E/E' med: 30.9 MV E/A: 0.79 Ao V2 max: 143.3 cm/sec LV V1 max: 112.1 cm/sec Ao max P.2 mmHg LV V1 max P.0 mmHg Interpretation Summary The study was technically difficult. Mild segmental systolic dysfunction (see wall motion). The estimated ejection fraction is 55 %. The left atrium is moderately enlarged. Mild mitral valve prolapse. Mild diffuse mitral valve thickening. Mild (1+) eccentric mitral valve insufficiency. Trivial tricuspid valve insufficiency. Unable to estimate RV systolic pressure/pulmonary artery pressure due to technically difficult study. Transmitral doppler flow suggestive of impaired relaxation of left ventricle Ordering Physician: Stephon Castro Referring Physician: RADHA FULTON Performed By: Rita Salcedo, MARION, RVT
== END ==
PROVIDERS: Family Provider Family Medicine; PCP Family Medicine; Visit Provider Internal Medicine Cardiovascular Disease
DX: I49.3 Ventricular premature depolarization (principal)
CPT/HCPCS: 93306

== ENCOUNTER → 2018-05-23 11:28 | Outpatient (CLI) | payer MEDICARE, SELFPAY ==
[2018-03-13 08:23] VITALS: BMI 26.6
[2018-05-23 15:53] LABS: AST(SGOT) 40 U/L (15-37); Alanine Aminotransfer ALT/SGPT 55 U/L (13-56); Albumin, Serum 3.8 g/dL (3.2-5.0); Alkaline Phosphatase 54 U/L (45-117); Anion Gap 7 (5-15); BUN 12 mg/dL (7-18); BUN/Creat Ratio 12.6 RATIO (10-20); CPK Total, Creatine Kinase 62 U/L (26-192); Calcium,Total 8.9 mg/dL (8.5-10.1); Chloride 104 mmol/L (98-107); Cholesterol 119 mg/dL (200); Creatinine, Serum 0.96 mg/dL (0.55-1.02); EST Glomerular Filtration Rate 63 mL/min (>60); Est Glom Filt Rate - Afr Amer 76 mL/min (>60); Globulin 3.8 g/dL (2.2-4.2); Glucose 88 mg/dL (74-106); Hemoglobin A1c 5.8 % (4.2-6.3); High Density Lipoprotein 77 mg/dL; Magnesium 2.1 mg/dL (1.6-2.6); Protein, Total 7.6 g/dL (6.4-8.2); Sodium Level 137 mmol/L (136-145); Triglycerides 59 mg/dL; Very Low Density Lipoprotein 12 mg/dL (5-40)
== END ==
PROVIDERS: Family Medicine; Family Provider Family Medicine; PCP Family Medicine; Visit Provider Family Medicine
DX: R25.2 Cramp and spasm (principal); R73.09 Other abnormal glucose; E78.5 Hyperlipidemia, unspecified
CPT/HCPCS: 36415; 80053; 80061; 82550; 83036; 83735

== ENCOUNTER 2018-06-06 08:00 | Outpatient (RCR) | payer MEDICARE, SELFPAY ==
[2018-03-13 08:23] VITALS: BMI 26.6
== END 2018-06-06 23:59 ==
LOC: CR 08:00
PROVIDERS: Family Provider Family Medicine; PCP Family Medicine; Visit Provider Internal Medicine Cardiovascular Disease
DX: I25.118 Atherosclerotic heart disease of native coronary artery with other forms of angina pectoris (principal)
CPT/HCPCS: 92971; G0166

== ENCOUNTER 2018-06-12 08:00 | Outpatient (RCR) | payer MEDICARE, SELFPAY ==
[2018-03-13 08:23] VITALS: BMI 26.6
== END 2018-07-07 23:59 ==
LOC: CR 08:00
PROVIDERS: Family Provider Family Medicine; PCP Family Medicine; Visit Provider Internal Medicine Cardiovascular Disease
DX: I25.118 Atherosclerotic heart disease of native coronary artery with other forms of angina pectoris (principal)
CPT/HCPCS: 36415; 80053; 92971; G0166

== ENCOUNTER → 2018-06-12 13:43 | Outpatient (CLI) | payer MEDICARE, SELFPAY ==
[2018-03-13 08:23] VITALS: BMI 26.6
[2018-06-12 16:13] LABS: AST(SGOT) 30 U/L (15-37); Alanine Aminotransfer ALT/SGPT 38 U/L (13-56); Alkaline Phosphatase 67 U/L (45-117); Anion Gap 7 (5-15); BUN 7 mg/dL (7-18); BUN/Creat Ratio 7.3 RATIO (10-20); Calcium,Total 8.8 mg/dL (8.5-10.1); Chloride 105 mmol/L (98-107); Creatinine, Serum 0.96 mg/dL (0.55-1.02); EST Glomerular Filtration Rate 62 mL/min (>60); Est Glom Filt Rate - Afr Amer 76 mL/min (>60); Globulin 4.1 g/dL (2.2-4.2); Glucose 81 mg/dL (74-106); Potassium 3.7 mmol/L (3.5-5.1); Protein, Total 8.1 g/dL (6.4-8.2); Sodium Level 137 mmol/L (136-145)
== END ==
PROVIDERS: Internal Medicine Cardiovascular Disease; Family Provider Family Medicine; PCP Family Medicine; Visit Provider Family Medicine
DX: K52.9 Noninfective gastroenteritis and colitis, unspecified (principal)
CPT/HCPCS: 36415; 80053; 92971; G0166

== ENCOUNTER → 2018-07-12 13:10 | Outpatient (CLI) | payer MEDICARE, SELFPAY ==
[2018-03-13 08:23] VITALS: BMI 26.6
== END ==
PROVIDERS: Family Provider Family Medicine; PCP Family Medicine; Visit Provider Family Medicine
DX: N63.13 Unspecified lump in the right breast, lower outer quadrant (principal); N63.23 Unspecified lump in the left breast, lower outer quadrant
CPT/HCPCS: 76642; 77062; 77066; G0279

== ENCOUNTER → 2018-07-17 11:53 | Outpatient (CLI) | payer MEDICARE, SELFPAY ==
[2018-03-13 08:23] VITALS: BMI 26.6
== END ==
PROVIDERS: Family Provider Family Medicine; PCP Family Medicine; Visit Provider Family Medicine
DX: Z83.2 Family history of diseases of the blood and blood-forming organs and certain disorders involving the immune mechanism (principal)
CPT/HCPCS: 36415; 81241

== ENCOUNTER 2018-10-01 16:22 | Emergency (ER) | payer MEDICARE, SELFPAY ==
[2018-03-13 08:23] VITALS: BMI 26.6
[2018-10-01 16:23] VITALS: BP 182/96; PULSE 56; RESP 17; TEMP 36.7; O2SAT 97; BMI 24.0
[2018-10-01 16:36] VITALS: O2SAT 99
--- NOTE | 2018-10-01 16:40 | EKG12_ITS ---
Test Reason : DYSRHYTHMIA Blood Pressure : / mmHG Vent. Rate : 052 BPM Atrial Rate : 052 BPM P-R Int : 158 ms QRS Dur : 102 ms QT Int : 484 ms P-R-T Axes : -13 043 026 degrees QTc Int : 450 ms Sinus bradycardia Otherwise normal ECG Confirmed by JOSEPHINE CHOI, LONA ([id number]), editorial clerk JANNY MELCHOR ([id number]) on 10/03/2018 4:24:59 PM Referred By: VONDA Confirmed By:LONA BURTON MD
--- NOTE | 2018-10-01 16:43 | ED.VISSUMM ---
- ER Visit Summary Date of Service: 10/01/18 Chief Complaint: Shortness of breath History of Present Illness: The patient is a 63 F with a history of COPD. Patient states she woke this morning with shortness of breath and wheezing. She used her MDI with improvement of her wheezing but still feels short of breath. She does have pain to the right lower ribs. She has had cough with yellow sputum production. No fever or chills. Physical Examination: Blood pressure is 182/96, other vitals normal. Head neck examination is unremarkable. Heart is regular rate and rhythm. Lungs sounds are slightly diminished throughout. Abdomen is soft nontender. Lower extremity examination was no calf tenderness or edema. Test Results: EKG is sinus bradycardia 52 bpm. No acute ischemia. Portable chest x-ray shows interstitial fibrotic changes most severely affecting the right lung base. This has been noted on prior studies. Atelectasis in the right midlung appears new. CBC was normal white count with hemoglobin 10.5. Chemistry studies normal. Troponin negative. Emergency Department Course and Treatment: Patient was given Solu-Medrol and aerosols. After the initial DuoNeb respiratory reports increased wheezing. Lungs are now clear with good air movement throughout. Patient feels significantly improved. She will be treated with Zithromax and prednisone at home. We will continue her albuterol MDI. Treatment Plan: [] Disposition: Discharge Impression: COPD exacerbation This note was generated with [employer] dictation software. It may contain incorrect words, spelling, and punctuation that were not noted in review of the chart prior to signing ED Disposition - Plan for ED Patient: Chief Complaint: Shortness of Breath Referrals: Phani Odom MD [Primary Care Provider] -
--- NOTE | 2018-10-01 16:45 | RAD_ITS ---
STUDY: X-RAY CHEST REASON FOR EXAM: Female, 63 years old. Shortness of breath TECHNIQUE: Single AP portable view of the chest. COMPARISON: Prior study of 03/12/2018 FINDINGS: residential monitor leads are present. Interstitial fibrotic changes are noted most severely affecting the right lung base. There is atelectasis or intrafissural fluid or thickening of the right midlung field. There is no pleural effusion. Cardiomegaly is present. Status post sternotomy changes are noted. Normal mediastinum and jenna. Normal visualized pulmonary arteries. Normal visualized aortic arch and descending thoracic aorta. Normal visualized thoracic spine. Normal visualized ribs, clavicles, and shoulders. There is no demonstrated abnormality of the visualized soft tissue structures of the upper abdomen. RAD/Chest 1 View (Portable) IMPRESSION: Interstitial fibrotic changes noted most severely affecting the right lung base. There is atelectasis or intrafissural fluid or thickening of the right midlung field. This is new in the interval. Cardiomegaly. Status post sternotomy. Electronically Signed: Sriram Tipton MD at 18:01 EST , Service support ,
[2018-10-01] MEDS: 0.9% Normal Saline 1,000 ML 150 ML IV (16:56)
[2018-10-01] MEDS: Albuterol 2.5 MG/3 ML VIAL.NEB. INHALATION ×2 (16:56→17:11)
[2018-10-01] MEDS: Ipratropium/Albuterol Sulfate 3 ML AMPUL.NEB INHALATION (16:56)
[2018-10-01] MEDS: MethylPREDNISolone 125 MG/2 ML Vial 100 MG IV (16:56)
[2018-10-01 17:00] VITALS: PULSE 53; RESP 18
[2018-10-01 17:03] LABS: Absolute Neutrophil Count 2.7 X10^3/uL (2.0-7.7); Basophil# 0.03 X10^3/uL; Basophil% 0.4 % (0-1); Eosinophil# 0.09 X10^3/uL; Eosinophils% 1.3 % (0-5); Hematocrit 32.2 % (37-47); Hemoglobin 10.5 g/dl (12.0-15.0); Lymphocyte % 50.5 % (19-41); Mean Corp Hgb Conc 32.6 g/gl (32-36); Mean Corpuscular Hgb 29.8 pg (27.0-32.0); Mean Corpuscular Volume 91.5 fL (81-99); Mean Platelet Vol. 10.4 fl (6.2-12.0); Monocyte# 0.55 X10^3/uL; Monocyte% 7.9 % (0-10); Neutrophil # 2.74 X10^3/uL (2.7-7.7); Neutrophil % 39.6 % (47-70); Platelet Count 183 K/mm3 (150-450); RBC Distribution Width CV 17.1 % (11.6-14.6); RBC Distribution Width SD 56.1 fl (35.1-43.9); Red Blood Count 3.52 M/mm3 (4.2-5.4); White Blood Count 6.9 K/mm3 (4.4-11.0)
[2018-10-01 17:04] LABS: POSITIVE COUNT NO; POSITIVE DIFFERENTIAL NO; POSITIVE MORPHOLOGY NO
[2018-10-01 17:12] VITALS: PULSE 61; RESP 18
[2018-10-01 17:17] LABS: Anion Gap 4 (5-15); BUN 10 mg/dL (7-18); BUN/Creat Ratio 11.2 RATIO (10-20); Calcium,Total 8.4 mg/dL (8.5-10.1); Chloride 107 mmol/L (98-107); EST Glomerular Filtration Rate 68 mL/min (>60); Est Glom Filt Rate - Afr Amer 82 mL/min (>60); Estimated Creatinine Clearance 56.68 ml/min; Glucose 88 mg/dL (74-106); Potassium 3.9 mmol/L (3.5-5.1); Sodium Level 138 mmol/L (136-145)
--- NOTE | 2018-10-01 18:32 | ED.DEP ---
ED Disposition - Plan for ED Patient: Disposition: Home or Assisted Living Chief Complaint: Shortness of Breath Instructions: ED COPD Flare Prescriptions: Azithromycin [Zithromax] 250 mg PO DAILY #4 tablet Prednisone 10 mg PO UD #33 tablet Referrals: Phani Odom MD [Primary Care Provider] - 1 Week
[2018-10-01 18:37] VITALS: BP 141/95; PULSE 84; RESP 16; O2SAT 98
[2018-10-01] MEDS: Azithromycin 250 MG Tablet 500 MG PO (18:45)
== END 2018-10-01 18:45 | disposition home or self-care (01) ==
PROVIDERS: Emergency Provider Emergency Medicine; Family Provider Family Medicine; PCP Family Medicine
DX: J44.1 Chronic obstructive pulmonary disease with (acute) exacerbation (principal); I25.10 Atherosclerotic heart disease of native coronary artery without angina pectoris; I10 Essential (primary) hypertension; E78.00 Pure hypercholesterolemia, unspecified; Z72.0 Tobacco use; Z79.82 Long term (current) use of aspirin; Z79.02 Long term (current) use of antithrombotics/antiplatelets; Z79.891 Long term (current) use of opiate analgesic; Z79.899 Other long term (current) drug therapy
CPT/HCPCS: 71045; 80048; 84484; 85025; 93005; 94640; 96361; 96374; 99285; J7030

== ENCOUNTER 2018-10-02 10:42 | Emergency (ER) | payer MEDICARE, SELFPAY ==
[2018-03-13 08:23] VITALS: BMI 26.6
[2018-10-01 16:23] VITALS: BMI 24.0
[2018-10-02 10:43] VITALS: BP 163/100; PULSE 73; RESP 22; TEMP 36.8; O2SAT 99; BMI 25.7
[2018-10-02 11:04] VITALS: BP 160/84; PULSE 67; RESP 27; O2SAT 100
--- NOTE | 2018-10-02 11:22 | EKG12_ITS ---
Test Reason : SOB/CP Blood Pressure : / mmHG Vent. Rate : 064 BPM Atrial Rate : 064 BPM P-R Int : 170 ms QRS Dur : 104 ms QT Int : 456 ms P-R-T Axes : 028 012 039 degrees QTc Int : 470 ms Normal sinus rhythm Poor R wave progression Confirmed by JOSEPHINE CHOI, LONA ([id number]), production editor JANNY MELCHOR ([id number]) on 10/04/2018 3:55:46 PM Referred By: OLIVIER/LAZARO Confirmed By:LONA BURTON MD
--- NOTE | 2018-10-02 11:30 | RAD_ITS ---
STUDY: X-RAY CHEST REASON FOR EXAM: Female, 63 years old. Shortness of breath since yesterday. TECHNIQUE: Single AP portable view of the chest. COMPARISON: Comparison is made with prior study dated October 01, 2018. FINDINGS: EKG electrodes are seen. Hyperinflation. Mild residual increased interstitial markings at the lung bases suggestive of linear scarring. There has been improvement as compared to prior study. Residual thickening of the right minor fissure although this has improved as well. Sternal cerclage wires and vascular clips are present from a prior sternotomy and coronary artery bypass graft procedure (CABG). Moderate cardiomegaly. Normal mediastinum and jenna. Normal visualized pulmonary arteries. There is atherosclerotic calcification of the aortic arch with tortuosity. Normal visualized thoracic spine. Prior fusion in the lower cervical spine. There is a stable 1.1 cm rounded sclerosis in the left humeral head. There is no demonstrated abnormality of the visualized soft tissue structures of the upper abdomen. RAD/Chest 1 View (Portable) IMPRESSION: Hyperinflation. Mild degree of residual increased markings at the lung bases although there has been improvement as compared to prior study. Electronically Signed: Db Bach MD at 12:30 EST Tel [phone], Service support ,
[2018-10-02 11:35] VITALS: O2SAT 100
[2018-10-02 11:37] VITALS: PULSE 71; RESP 18
[2018-10-02] MEDS: Albuterol 2.5 MG/3 ML VIAL.NEB. INHALATION (11:37)
[2018-10-02] MEDS: Ipratropium/Albuterol Sulfate 3 ML AMPUL.NEB INHALATION (11:37)
[2018-10-02] MEDS: MethylPREDNISolone 125 MG/2 ML Vial IV (11:38)
[2018-10-02 11:42] LABS: Absolute Lymphocyte Count 3.03 X10^3/ul (0.83-4.51); Absolute Neutrophil Count 11.9 X10^3/uL (2.0-7.7); Basophil# 0.01 X10^3/uL; Basophil% 0.1 % (0-1); Eosinophil# 0.01 X10^3/uL; Eosinophils% 0.1 % (0-5); Hematocrit 31.2 % (37-47); Hemoglobin 10.3 g/dl (12.0-15.0); Lymphocyte # 3.03 X10^3/ul (4.0); Lymphocyte % 18.9 % (19-41); Mean Corpuscular Hgb 29.7 pg (27.0-32.0); Mean Corpuscular Volume 89.9 fL (81-99); Mean Platelet Vol. 10.8 fl (6.2-12.0); Monocyte# 1.04 X10^3/uL; Monocyte% 6.5 % (0-10); Neutrophil # 11.88 X10^3/uL (2.7-7.7); Platelet Count 192 K/mm3 (150-450); RBC Distribution Width CV 16.9 % (11.6-14.6); RBC Distribution Width SD 53.4 fl (35.1-43.9); Red Blood Count 3.47 M/mm3 (4.2-5.4)
[2018-10-02 11:43] LABS: POSITIVE COUNT NO; POSITIVE DIFFERENTIAL NO; POSITIVE MORPHOLOGY NO
[2018-10-02 11:52] LABS: Anion Gap 9 (5-15); BUN 12 mg/dL (7-18); BUN/Creat Ratio 11.1 RATIO (10-20); Chloride 106 mmol/L (98-107); Creatinine, Serum 1.08 mg/dL (0.55-1.02); EST Glomerular Filtration Rate 55 mL/min (>60); Est Glom Filt Rate - Afr Amer 66 mL/min (>60); Estimated Creatinine Clearance 47.24 ml/min; Glucose 80 mg/dL (74-106); Potassium 3.8 mmol/L (3.5-5.1); Sodium Level 137 mmol/L (136-145)
[2018-10-02 11:57] VITALS: BP 152/78; PULSE 74; RESP 21; O2SAT 98
[2018-10-02 14:51] VITALS: O2SAT 97
--- NOTE | 2018-10-02 14:51 | ED.VISSUMM ---
- ER Visit Summary Date of Service: 10/02/18 Chief Complaint: Shortness of breath with cough. History of Present Illness: The patient is a 63 F history of COPD no home O2 also CAD prior [place] with cardiac stents. Patient was recently seen in the emergency department had negative workup. Has no history of DVT or PE. No hemoptysis. No recent travel or surgery. She has been having a cough of greenish sputum and been short of breath. Patient has a prescription for prednisone and an antibiotic at the pharmacy which she has been unable to case picker as of yet. Physical Examination: Vital signs are stable. Afebrile. Pulse ox 9 9% on room air no hypoxia. No distress. HEENT exam unremarkable. Neck nontender no lymphadenopathy. Lungs scattered expiratory wheezes. No rales or rhonchi. Equal symmetrical. Heart regular rate and rhythm no murmur. Abdomen soft nontender. Normal bowel sounds no peritoneal signs. Patient is moving all 4 extremities. Equal symmetrical. Calves are nontender without edema or cords. Neurologically she is awake alert with no focal motor deficits. Test Results: Chest x-ray shows no acute abnormality. Chronic cardiomegaly. Chronic lung changes. No change from her recent chest x-ray. EKG sinus rhythm rate of 64 with no signs of [place] or ischemia. White count of 16. H&H 10 and 31 which is around her baseline. Electrolytes unremarkable. Troponin normal. Emergency Department Course and Treatment: Patient treated with Solu-Medrol IV and aerosols. On repeat exam patient is doing well at 14:47. Wheezing is currently resolved. She is comfortable being discharged home. She will be given a inhaler to use at home. Treatment Plan: Get her oral steroid prescription filled. Inhaler as needed. Follow-up with your doctor. Disposition: Discharge Impression: Acute bronchitis Acute exacerbation COPD This note was generated with [employer] dictation software. It may contain incorrect words, spelling, and punctuation that were not noted in review of the chart prior to signing ED Disposition - Plan for ED Patient: Chief Complaint: Shortness of Breath Referrals: Phani Odom MD [Primary Care Provider] -
--- NOTE | 2018-10-02 14:54 | ED.DCSUM_ITS ---
- ER Visit Summary Date of Service: 10/02/18 Chief Complaint: Shortness of breath with cough. History of Present Illness: The patient is a 63 F history of COPD no home O2 also CAD prior [place] with cardiac stents. Patient was recently seen in the emergency department had negative workup. Has no history of DVT or PE. No hemoptysis. No recent travel or surgery. She has been having a cough of greenish sputum and been short of breath. Patient has a prescription for prednisone and an antibiotic at the pharmacy which she has been unable to mushroom picker as of yet. Physical Examination: Vital signs are stable. Afebrile. Pulse ox 9 9% on room air no hypoxia. No distress. HEENT exam unremarkable. Neck nontender no lymphadenopathy. Lungs scattered expiratory wheezes. No rales or rhonchi. Equal symmetrical. Heart regular rate and rhythm no murmur. Abdomen soft nontender. Normal bowel sounds no peritoneal signs. Patient is moving all 4 extremities. Equal symmetrical. Calves are nontender without edema or cords. Neurologically she is awake alert with no focal motor deficits. Test Results: Chest x-ray shows no acute abnormality. Chronic cardiomegaly. Chronic lung changes. No change from her recent chest x-ray. EKG sinus rhythm rate of 64 with no signs of [place] or ischemia. White count of 16. H&H 10 and 31 which is around her baseline. Electrolytes unremarkable. Troponin normal. Emergency Department Course and Treatment: Patient treated with Solu-Medrol IV and aerosols. On repeat exam patient is doing well at 14:47. Wheezing is currently resolved. She is comfortable being discharged home. She will be given a inhaler to use at home. Treatment Plan: Get her oral steroid prescription filled. Inhaler as needed. Follow-up with your doctor. Disposition: Discharge Impression: Acute bronchitis Acute exacerbation COPD This note was generated with [employer] dictation software. It may contain incorrect words, spelling, and punctuation that were not noted in review of the chart prior to signing ED Disposition - Plan for ED Patient: Chief Complaint: Shortness of Breath Referrals: Phani Odom MD [Primary Care Provider] -
--- NOTE | 2018-10-02 14:54 | ED.DEP ---
ED Disposition - Plan for ED Patient: Disposition: Home or Assisted Living Chief Complaint: Shortness of Breath Instructions: ED COPD Flare Referrals: Phani Odom MD [Primary Care Provider] - As Needed Additional Instructions: Use your inhaler as needed. Absolutely positively stop smoking. Steroids daily and get your antibiotic and prednisone prescriptions filled.
== END 2018-10-02 14:58 | disposition home or self-care (01) ==
PROVIDERS: Emergency Provider Emergency Medicine; Family Provider Family Medicine; PCP Family Medicine
DX: J20.9 Acute bronchitis, unspecified (principal); J44.0 Chronic obstructive pulmonary disease with (acute) lower respiratory infection; J44.1 Chronic obstructive pulmonary disease with (acute) exacerbation; I25.10 Atherosclerotic heart disease of native coronary artery without angina pectoris; I25.2 Old myocardial infarction; Z95.5 Presence of coronary angioplasty implant and graft; E78.00 Pure hypercholesterolemia, unspecified; Z72.0 Tobacco use; Z79.82 Long term (current) use of aspirin; Z79.02 Long term (current) use of antithrombotics/antiplatelets; Z79.891 Long term (current) use of opiate analgesic; Z79.899 Other long term (current) drug therapy
CPT/HCPCS: 71045; 80048; 84484; 85025; 93005; 94640; 96374; 99285; A4216

== ENCOUNTER 2018-11-02 15:35 | Emergency (ER) | payer MEDICARE, SELFPAY ==
[2018-03-13 08:23] VITALS: BMI 26.6
[2018-11-02 15:35] VITALS: BP 124/85; PULSE 79; RESP 16; TEMP 36.4; O2SAT 100; BMI 25.5
[2018-11-02 16:10] VITALS: PULSE 70; RESP 18; TEMP 36.4; O2SAT 99
--- NOTE | 2018-11-02 16:12 | CT_ITS ---
STUDY: CT ABDOMEN AND PELVIS WITHOUT CONTRAST REASON FOR EXAM: Female, 63 years old. Lower abdominal pain RADIATION DOSAGE (If Supplied By Facility): CTDIvol = ( 6.15 ) mGy, DLP = ( 313.40 ) mGycm TECHNIQUE: Transaxial images were obtained from the dome of the diaphragm to the symphysis pubis without oral contrast, and without intravenous contrast. Sagittal and coronal images were reconstructed. Individualized dose optimization techniques were used for this CT. COMPARISON: 03/31/2017 FINDINGS: The visualized lung bases are unremarkable. Previous CABG Normal liver. There are surgical clips in the gallbladder fossa consistent with a prior cholecystectomy. Normal spleen. Normal pancreas. Normal bilateral adrenal glands. Normal right kidney. Normal left kidney. Normal visualized stomach. Normal small intestine. Normal colon. There is non-visualization of the appendix. Normal abdominal aorta. Normal inferior vena cava. Normal retroperitoneum. Bladder is collapsed around a Diaz catheter, there is air within the bladder likely from Diaz placement. There is absence of the uterus consistent with a prior hysterectomy. Normal abdominal wall. Normal osseous structures. CT/Abdomen/Pelvis without Cont IMPRESSION: No suspicious solid organ abnormality, previous cholecystectomy No CT evidence of an acute inflammatory process Bladder collapsed around a Diaz catheter, there is air within the bladder likely from Diaz placement. Electronically Signed: Andrew West MD at 17:41 EST , Service support ,
[2018-11-02] MEDS: 0.9% Normal Saline 1,000 ML 150 ML IV (16:47)
[2018-11-02 16:59] LABS: Bacteria 0 SEEN /hpf (None Seen); Mucous, Urine 0 SEEN /hpf (<or=2+); Red Blood Cells-Urine 0 SEEN /hpf (0-5); White Blood Cells 0 SEEN /hpf (0-5)
[2018-11-02 17:00] VITALS: PULSE 78; RESP 16; TEMP 36.6; O2SAT 99
[2018-11-02 17:03] LABS: Absolute Lymphocyte Count 3.61 X10^3/ul (0.83-4.51); Absolute Neutrophil Count 2.3 X10^3/uL (2.0-7.7); Basophil# 0.02 X10^3/uL; Basophil% 0.3 % (0-1); Eosinophil# 0.07 X10^3/uL; Eosinophils% 1.1 % (0-5); Hematocrit 32.9 % (37-47); Hemoglobin 10.6 g/dl (12.0-15.0); Lymphocyte # 3.61 X10^3/ul (4.0); Lymphocyte % 55.9 % (19-41); Mean Corp Hgb Conc 32.2 g/gl (32-36); Mean Corpuscular Hgb 29.1 pg (27.0-32.0); Mean Corpuscular Volume 90.4 fL (81-99); Monocyte# 0.44 X10^3/uL; Monocyte% 6.8 % (0-10); Neutrophil # 2.31 X10^3/uL (2.7-7.7); Neutrophil % 35.7 % (47-70); Platelet Count 189 K/mm3 (150-450); RBC Distribution Width CV 17.7 % (11.6-14.6); RBC Distribution Width SD 58.9 fl (35.1-43.9); Red Blood Count 3.64 M/mm3 (4.2-5.4); White Blood Count 6.5 K/mm3 (4.4-11.0)
[2018-11-02 17:04] LABS: POSITIVE COUNT NO; POSITIVE DIFFERENTIAL NO; POSITIVE MORPHOLOGY NO
[2018-11-02 17:06] LABS: Color, Urine Yellow (Yellow); Glucose, Dipstick Normal (Normal); Ketone-Dipstick Negative (Negative); Leukocyte Esterase-Dipstick Negative /ul (Negative); Nitrite-Dipstick Negative (Negative); Occult Blood-Urine Negative /ul (Negative); Protein-Dipstick Negative (Negative); Specific Gravity, Urine 1.015 (1.002-1.030); Urine Bilirubin Dipstick Negative (Negative); Urine Clarity Sl. Cloudy (Clear); Urine Urobilinogen Normal (Normal)
[2018-11-02 17:14] LABS: Hyaline Cast 0-5 SEEN /lpf (0-5)
[2018-11-02 17:17] LABS: Squamous Epithelial Cells - UA 0-5 SEEN /hpf (5-10)
[2018-11-02 17:20] LABS: Anion Gap 8 (5-15); BUN 10 mg/dL (7-18); BUN/Creat Ratio 10.4 RATIO (10-20); Calcium,Total 8.3 mg/dL (8.5-10.1); Chloride 105 mmol/L (98-107); Creatinine, Serum 0.96 mg/dL (0.55-1.02); EST Glomerular Filtration Rate 63 mL/min (>60); Est Glom Filt Rate - Afr Amer 76 mL/min (>60); Estimated Creatinine Clearance 53.14 ml/min; Glucose 84 mg/dL (74-106); Potassium 3.5 mmol/L (3.5-5.1); Sodium Level 137 mmol/L (136-145)
[2018-11-02 18:00] VITALS: PULSE 73; RESP 18; TEMP 36.6; O2SAT 99
--- NOTE | 2018-11-02 18:38 | ED.DCSUM_ITS ---
- ER Visit Summary Date of Service: 11/02/18 Chief Complaint: [Difficulty urinating] History of Present Illness: The patient is a 63 F [presents to the emergency department complaint of difficulty urinating that started 2 weeks ago. Patient states that she feels some pressure in her bladder and feels like she needs to urinate but can only get small amounts of urine out at a time. Patient sometimes feels like she has to push like she is having a bowel movement to get the urine out. Patient was seen by her primary care physician today who referred her to the emergency department being that the urologist that they want to refer to will be available till November 09. Patient does have a history of hypertension, coronary artery disease, high cholesterol, mitral valve prolapse. Patient denies any pain in her back. She denies any fevers. She denies any nausea or vomiting.] Physical Examination: [HEENT-PERRLA, EOMI. Cranial nerves II through XII grossly intact. TMs clear. Mucous membranes moist. No adenopathy. Cardiovascular-regular rate and rhythm without murmur or ectopy Lungs-clear to auscultation, chest wall stable without crepitus or subcu emphysema Abdomen-normoactive bowel sounds, soft. Patient does have some mild tenderness over suprapubic region. There is no rebound, rigidity, or perineal signs. Extremities-intact ?4, normal range of motion, normal pulses, atraumatic] Test Results: [Bladder scan initially obtained showed 40 cc of urine. CBC with differential obtained showed a white count 6.5, hemoglobin 10.6, hematocrit 33, platelets 189. Chemistries unremarkable. BUN was 10 and creatinine 0.96. Urinalysis was normal. I did a CT flank that essentially showed nothing acute.] Emergency Department Course and Treatment: [Patient had a Diaz catheter placed on arrival and only small amount of urine returned.] Treatment Plan: [At this point patient feels improved and would like to leave the catheter in until she follows up with a urologist.] Disposition: [Discharged home in stable condition. Patient to return if fever, worsening pain, or condition should worsen anyway. Back patient may be having bladder spasms possibly. Patient will need further workup and evaluation by urology.] Impression: [Difficulty voiding urine] This note was generated with [employer] dictation software. It may contain incorrect words, spelling, and punctuation that were not noted in review of the chart prior to signing ED Disposition - Plan for ED Patient: Chief Complaint: Complaint Referrals: Phani Odom MD [Primary Care Provider] -
--- NOTE | 2018-11-02 18:38 | ED.DEP ---
ED Disposition - Plan for ED Patient: Chief Complaint: Complaint Instructions: ED Retention Urinary Female Referrals: Phani Odom MD [Primary Care Provider] - Sophia Hammer MD [STAFF PHYSICIAN] - 5-7 Days
[2018-11-02 19:03] VITALS: PULSE 76; RESP 18; TEMP 36.5; O2SAT 96; O2SAT 99
== END 2018-11-02 19:09 | disposition home or self-care (01) ==
LOC: ED 16:28
PROVIDERS: Emergency Provider Emergency Medicine; Family Provider Family Medicine; PCP Family Medicine
DX: N39.8 Other specified disorders of urinary system (principal); E78.00 Pure hypercholesterolemia, unspecified; I10 Essential (primary) hypertension; I25.10 Atherosclerotic heart disease of native coronary artery without angina pectoris; I34.1 Nonrheumatic mitral (valve) prolapse; Z79.02 Long term (current) use of antithrombotics/antiplatelets; Z79.82 Long term (current) use of aspirin; Z79.891 Long term (current) use of opiate analgesic; Z79.899 Other long term (current) drug therapy
CPT/HCPCS: 74176; 80048; 81001; 85025; 96360; 96361; 99282; J7030; A4216

== ENCOUNTER 2018-12-12 09:16 | Day surgery (SDC) | payer MEDICARE, SELFPAY ==
[2018-03-13 08:23] VITALS: BMI 26.6
[2018-12-12] VITALS (7 sets, daily range): BP systolic 107–126; BP diastolic 51–70; PULSE 49–69; RESP 16–18; TEMP 36.2–37.2; O2SAT 92–99; BMI 25.4
[2018-12-12] MEDS: Vancomycin IV 1,000 MG/200 ML BAG 200 MG IV (09:44)
--- NOTE | 2018-12-12 10:03 | OP.PCM_ITS ---
Problem List (1) Urinary retention Status: Acute Report of Operation Date of Procedure: 12/12/18 Pre-Operative Diagnosis: urinary retention Post-Operative Diagnosis: same Surgery/Procedure Performed:: Interstim Stage 1 Description of Surgical Findings:: good results on all 4 leads with cammie and toe response. Type of Anesthesia:: MAC Special Medications: Vancomycin Estimated Blood Loss (mL): 5cc Description of Procedure: The patient is a 63-year-old female who came to the office for evaluation of difficulty with urination and urinary retention. After undergoing urodynamics and office cystoscopy, she agreed to proceed with a stage I InterStim and informed consent was obtained. Was taken to the operating room and placed on the operating room table in a prone position, and was appropriately padded and secured to the table. Anesthesia monitored the head, neck, airway, IV, vital signs throughout the case. Once anesthesia was appropriately administered, the patient was appropriately prepped and draped in usual sterile fashion. The S3 foramen was mapped out using fluoroscopy and marking pen and ruler. The area of the foramen was anesthetized locally with lidocaine with epinephrine. A needle was then passed through the S3 foramen on the patient's right side confirmed by fluoroscopy. There was good cammie response as well as toe flexion. The obturator of the needle was removed and the guidewire was passed. An incision was made and the area was dilated. The lead was then passed using the curved guidewire. Once in appropriate position, each of the 4 leads were tested and had good both cammie and toe flexion. The lead was then tunneled into the eventual pocket site which was made with a knife and Bovie cautery for hemostatic control. The boot was attached as was the lead extension. The boot was secured using Prolene. The lead extension was brought out in a cephalad position. The incisions were closed using 3-0 interrupted Vicryl followed by 4- 0 subcuticular suturing and Dermabond. The battery was attached to the lead extension and dressing was applied over the entire area. The patient tolerated the procedure well, was awakened and taken to the recovery room in good condition. There were no complications during the procedure. Grafts/Implants Used: Interstim Stage 1 Lead - Complications none - Admit VTE Documentation VTE Present on Admission: No VTE Mechan Device Prophylaxis: None VTE Pharm Prophylaxis ordered?: No Reason prophylaxis not ordered:: Treatment Not Indicated
--- NOTE | 2018-12-12 10:04 | DCINST_ITS ---
Discharge Diet: No Restrictions Discharge Activity: May not drive while taking narcotic pain medications. May resume sexual activity in: 4 weeks Call your doctor if your incision/area has: Sudden Increased Bleeding, Increased Pain/ Swelling, Increased Redness, Foul Smelling Discharge Call your doctor if you observe: Fever of 101 or Higher, Inability to urinate, Inability to have a bowel movement, Shortness of breath, Chest pain, Calf discomfort, Uncontrolled pain Suture Line Care: Avoid Pulling/Pushing, Avoid Pinching/Bending Cleanse incision/area with: Do not get Incision Wet Allergies/Adverse Reactions: Allergies Iodinated Contrast- Oral and IV Dye [Iodinated Contrast Media - IV Dye] Allergy (Verified 12/05/18 14:36) Other tetracycline [Tetracycline] Allergy (Verified 12/05/18 14:36) Hives pravastatin Adverse Reaction (Intermediate, Verified 12/05/18 14:36) Upset Stomach atorvastatin [From Lipitor] Adverse Reaction (Verified 12/05/18 14:36) myalgia Medications to take at Discharge Aspirin [Aspirin, Baby] 81 mg PO DAILY@0800 02/04/16 Citalopram [Celexa] 40 mg PO QHS 02/04/16 Omeprazole [Prilosec] 20 mg PO DAILY 02/04/16 busPIRone [Buspar] 5 mg PO TID 02/04/16 Clopidogrel Bisulfate [Plavix] 75 mg PO DAILY 01/27/18 Cyclobenzaprine [Flexeril] 10 mg PO TID PRN PRN 03/12/18 traZODone [Desyrel] 50 mg PO QHS 03/12/18 Lisinopril [Zestril] 2.5 mg PO DAILY #90 tab 03/14/18 meloxicam 15 mg tablet 15 mg PO DAILY 05/17/18 nitroglycerin 0.4 mg sublingual tablet 0.4 mg SUBLINGUAL Q5M PRN #25 tab 08/17/18 primidone 50 mg tablet 50 mg PO QHS 30 Days #30 tab 08/17/18 Oxycodone HCl/Acetaminophen [Percocet 5/325] 1 - 2 tablet PO Q8H PRN PRN 10/01/18 Metoprolol Tartrate 12.5 mg PO BID 10/02/18 Clonazepam [Klonopin] 2 mg PO TID 12/05/18 Primary Care Physician: Phani Odom MD [Primary Care Provider] - Test Results: Test results from this visit will be discussed in further detail at your follow- up appointment, if applicable. Please Follow Up With: Sophia Hammer MD When: 1 week, call office for appt Proposed Discharge Date: 12/12/18
--- NOTE | 2018-12-12 10:05 | RAD_ITS ---
STUDY: X-RAY - PELVIS REASON FOR EXAM: Female, 63 years old. InterStim therapy. TECHNIQUE: One view of the pelvis was obtained. COMPARISON: None. FINDINGS: 2 intraoperative images were obtained. The tip of the electrode lies along the left posterior aspect of the pelvis. RAD/Pelvis 1 or 2 Views IMPRESSION: The tip of the interstitium electrode is in the left posterior aspect of the pelvis. Electronically Signed: Db Bach MD at 15:22 EST , Service support ,
== END 2018-12-12 12:24 | disposition home or self-care (01) ==
LOC: SDC 09:19 → AC 09:21
PROVIDERS: Family Provider Family Medicine; PCP Family Medicine; Referring Provider Urology; Visit Provider Urology
PROC: (CPT 64581; principal; 2018-12-12 10:15)
DX: R33.9 Retention of urine, unspecified (principal); N39.3 Stress incontinence (female) (male); R35.1 Nocturia; I25.2 Old myocardial infarction; F17.200 Nicotine dependence, unspecified, uncomplicated; K21.9 Gastro-esophageal reflux disease without esophagitis; F41.9 Anxiety disorder, unspecified; F32.9 Major depressive disorder, single episode, unspecified; I50.9 Heart failure, unspecified; G47.30 Sleep apnea, unspecified; Z95.1 Presence of aortocoronary bypass graft; Z85.820 Personal history of malignant melanoma of skin; Z79.02 Long term (current) use of antithrombotics/antiplatelets; Z79.82 Long term (current) use of aspirin; Z79.891 Long term (current) use of opiate analgesic; Z79.899 Other long term (current) drug therapy
CPT/HCPCS: 00630; 64581; 72170; 76000; J7120; C1778

== ENCOUNTER 2018-12-17 12:42 | Emergency (ER) | payer MEDICARE, SELFPAY ==
[2018-03-13 08:23] VITALS: BMI 26.6
[2018-12-12 09:30] VITALS: BMI 25.4
[2018-12-17 12:43] VITALS: BP 118/72; PULSE 64; RESP 14; TEMP 36.6; O2SAT 95; BMI 25.4
--- NOTE | 2018-12-17 12:51 | VDLE_ITS ---
Reason For Study: RLE Pain RIGHT GSV is normal. CFV is compressible, spontaneous, phasic, competent and demonstrates normal augmentation. FV is compressible, spontaneous, phasic, competent and demonstrates normal augmentation. POP V is compressible, spontaneous, phasic, competent and demonstrates normal augmentation. T/P Trunk is compressible. PTV is compressible. RT PerV is compressible. Procedure Exam performed portable in ED. A preliminary report was called and/or faxed to Dr. Campoverde. Interpretation Summary There is no evidence of right lower extremity deep vein thrombosis. Right greater saphenous vein appears patent and compressible segmentally. Ordering Physician: Nivia Campoverde Referring Physician: Sen Odom Performed By: Fawn Stevenson, MARION, RVT
[2018-12-17] MEDS: HYDROmorphone 0.5 MG/0.5 ML SYRINGE IM ×2 (13:21→15:21)
--- NOTE | 2018-12-17 15:10 | ED.VISSUMM ---
- ER Visit Summary Date of Service: 12/17/18 Chief Complaint: Right leg pain History of Present Illness: The patient is a 63 F who had a bladder stimulator placed via her back on December [address] Hammer. Patient states she does have some pain around that site. Today she noted pain to her right calf and was concerned for DVT. She denies any pain in her thigh. No paresthesias. She states she has been up and ambulating at home. She is currently on Dilaudid for pain. Past history is significant for coronary disease, hypertension, high cholesterol, claudication. Physical Examination: Vital signs are unremarkable. Patient is lying in bed no acute distress. She appears uncomfortable but in no distress. Head neck examination unremarkable. Heart is regular rate and rhythm. Lungs sounds are clear. Abdomen is soft nontender. Back examination reveals appropriate tenderness around her implant over the lower back. She device is taped well to her back. Skin examination does not reveal any significant changes or sign of infection. Right lower external examination does reveal reproducible tenderness in the right calf. There is no obvious edema or erythema. She has full range of motion. She has strong distal pulses. There is no tenderness over her thigh or hip. Test Results: Right lower extremity venous ultrasound shows no evidence of DVT. Emergency Department Course and Treatment: Patient received IM Dilaudid here and will continue her normal pain meds regimen at home. She is to call Dr. Hammer's office tomorrow and update them on her symptoms. Treatment Plan: [] Disposition: Discharge Impression: 1. Postop back pain 2. Right calf pain This note was generated with [employer] dictation software. It may contain incorrect words, spelling, and punctuation that were not noted in review of the chart prior to signing ED Disposition - Plan for ED Patient: Referrals: Phani Odom MD [Primary Care Provider] -
--- NOTE | 2018-12-17 15:12 | ED.DEP ---
ED Disposition - Plan for ED Patient: Disposition: Home or Assisted Living Instructions: ED Post Op Pain Referrals: Phani Odom MD [Primary Care Provider] - Additional Instructions: Follow-up with Dr Hammer tomorrow as discussed.
[2018-12-17 15:24] VITALS: BP 142/88; PULSE 65; RESP 16; O2SAT 98
== END 2018-12-17 15:24 | disposition home or self-care (01) ==
PROVIDERS: Emergency Provider Emergency Medicine; Family Provider Family Medicine; PCP Family Medicine
DX: G89.18 Other acute postprocedural pain (principal); M79.661 Pain in right lower leg; Z97.8 Presence of other specified devices; I25.10 Atherosclerotic heart disease of native coronary artery without angina pectoris; I10 Essential (primary) hypertension; E78.00 Pure hypercholesterolemia, unspecified; I73.9 Peripheral vascular disease, unspecified; Z95.1 Presence of aortocoronary bypass graft; Z79.82 Long term (current) use of aspirin; Z79.02 Long term (current) use of antithrombotics/antiplatelets; Z79.899 Other long term (current) drug therapy; Z72.0 Tobacco use
CPT/HCPCS: 93971; 96372; 99282

== ENCOUNTER 2018-12-26 06:13 | Day surgery (SDC) | payer MEDICARE, SELFPAY ==
[2018-03-13 08:23] VITALS: BMI 26.6
[2018-12-26] VITALS (11 sets, daily range): BP systolic 88–154; BP diastolic 56–111; PULSE 58–70; RESP 16–18; TEMP 36.1–36.4; O2SAT 93–100; BMI 25.6
[2018-12-26] MEDS: Vancomycin IV 1,000 MG/200 ML BAG 200 MG IV (07:21)
--- NOTE | 2018-12-26 08:42 | PCM.OPRPT ---
Problem List (1) Urinary retention Status: Acute Report of Operation Date of Procedure: 12/26/18 Pre-Operative Diagnosis: urinary retention Post-Operative Diagnosis: same Surgery/Procedure Performed:: Interstim Stage 2 Description of Surgical Findings:: no complication, IPG placed without issue in left hip pocket. Type of Anesthesia:: MAC Special Medications: Vancomycin. Lidocaine with epi, 10cc Estimated Blood Loss (mL): 2cc Description of Procedure: The patient is a 63-year-old female who had a successful stage I InterStim for urinary retention. She now presents for implantation of her permanent IPG. The patient agreed to the procedure following informed consent. She was taken to the operating room and placed in a prone position on the operating room table. Anesthesia monitored the head, neck, airway, IV access, vital signs throughout the case. Once anesthesia was superbly administered, the patient was prepped and draped in usual sterile fashion. The previous incision was infiltrated with lidocaine with epinephrine. The incision was then opened using hemostats and Metzenbaums. The boot was brought into the operative field and removed using the torque wrench. The lead was then dried. The pocket was enlarged to fit the IPG. The lead was then placed into the IPG and screwed into position. The IPG was placed into the pocket and checked for impedances which were not found. At this time the pocket was closed using 3-0 interrupted suture followed by 4-0 subcuticular suturing. Dermabond was then placed and dried. The lead extension was then removed externally. The patient was awakened and taken to the recovery room in good condition. There were no complications during this procedure. Grafts/Implants Used: Interstim IPG - Complications none - Admit VTE Documentation VTE Present on Admission: Yes VTE Mechan Device Prophylaxis: SCD's VTE Pharm Prophylaxis ordered?: No Reason prophylaxis not ordered:: Treatment Not Indicated
--- NOTE | 2018-12-26 08:53 | DCINST_ITS ---
Discharge Diet: No Restrictions Discharge Activity: May not drive while taking narcotic pain medications., May Shower May resume sexual activity in: No Restrictions Call your doctor if your incision/area has: Continuous Slow Oozing, Sudden Increased Bleeding, Increased Pain/ Swelling, Increased Redness, Foul Smelling Discharge, Swelling at the incision site Call your doctor if you observe: Fever of 101 or Higher, Shortness of breath, Chest pain, Calf discomfort, Uncontrolled pain Additional Dressing/Incision Instructions:: allow skin glue to come off on its own, do not remove it. Allergies/Adverse Reactions: Allergies Iodinated Contrast- Oral and IV Dye [Iodinated Contrast Media - IV Dye] Allergy (Verified 12/18/18 13:28) Other tetracycline [Tetracycline] Allergy (Verified 12/18/18 13:28) Hives pravastatin Adverse Reaction (Intermediate, Verified 12/18/18 13:28) Upset Stomach atorvastatin [From Lipitor] Adverse Reaction (Verified 12/18/18 13:28) myalgia Medications to take at Discharge Aspirin [Aspirin, Baby] 81 mg PO DAILY@0800 02/04/16 Citalopram [Celexa] 40 mg PO QHS 02/04/16 Omeprazole [Prilosec] 20 mg PO DAILY 02/04/16 busPIRone [Buspar] 5 mg PO TID 02/04/16 Clopidogrel Bisulfate [Plavix] 75 mg PO DAILY 01/27/18 Cyclobenzaprine [Flexeril] 10 mg PO TID PRN PRN 03/12/18 traZODone [Desyrel] 50 mg PO QHS 03/12/18 Lisinopril [Zestril] 2.5 mg PO DAILY #90 tab 03/14/18 meloxicam 15 mg tablet 15 mg PO DAILY 05/17/18 nitroglycerin 0.4 mg sublingual tablet 0.4 mg SUBLINGUAL Q5M PRN #25 tab 08/17/18 primidone 50 mg tablet 50 mg PO QHS 30 Days #30 tab 08/17/18 Oxycodone HCl/Acetaminophen [Percocet 5-325] 1 - 2 tablet PO Q8H PRN PRN 10/01/18 Metoprolol Tartrate 12.5 mg PO BID 10/02/18 Clonazepam [Klonopin] 1 mg PO TID 12/05/18 HYDROmorphone tablet [Dilaudid] 2 mg PO TID 12/17/18 Primary Care Physician: Phani Odom MD [Primary Care Provider] - Test Results: Test results from this visit will be discussed in further detail at your follow- up appointment, if applicable. Please Follow Up With: Sophia Hammer MD When: 1-2 weeks, call for programming appt Proposed Discharge Date: 12/26/18
== END 2018-12-26 10:20 | disposition home or self-care (01) ==
LOC: SDC 06:15 → AC 06:15
PROVIDERS: Family Provider Family Medicine; PCP Family Medicine; Referring Provider Urology; Visit Provider Urology
PROC: (CPT 64590; principal; 2018-12-26 07:50)
DX: R33.9 Retention of urine, unspecified (principal); N39.3 Stress incontinence (female) (male); I25.2 Old myocardial infarction; F17.200 Nicotine dependence, unspecified, uncomplicated; K21.9 Gastro-esophageal reflux disease without esophagitis; E78.00 Pure hypercholesterolemia, unspecified; F41.9 Anxiety disorder, unspecified; F32.9 Major depressive disorder, single episode, unspecified; I50.9 Heart failure, unspecified; G47.30 Sleep apnea, unspecified; Z85.828 Personal history of other malignant neoplasm of skin; Z95.5 Presence of coronary angioplasty implant and graft; Z79.02 Long term (current) use of antithrombotics/antiplatelets; Z79.82 Long term (current) use of aspirin; Z79.891 Long term (current) use of opiate analgesic; Z79.899 Other long term (current) drug therapy
CPT/HCPCS: 00300; 64590; J7120; C1767; J2405

== ENCOUNTER → 2019-01-10 10:48 | Outpatient (CLI) | payer MEDICARE, SELFPAY ==
[2018-03-13 08:23] VITALS: BMI 26.6
[2018-12-26 07:06] VITALS: BMI 25.6
--- NOTE | 2019-01-10 10:50 | ART_ITS ---
Reason For Study: Claudication Procedure A bilateral lower extremity continuous wave Doppler with analog waveform analysis,segmental pressures,and ankle brachial indexes without exercise. Left Segmental Pressures Left brachial= 128mmHg. Left thigh = 143mmHg. Left calf = 107mmHg. Left posterior tibial artery = 125mmHg. Left dorsalis pedis artery = 117mmHg. The left dorsalis pedis waveforms are biphasic. The left posterior tibial artery waveforms are biphasic. Right Segmental Pressures Right brachial= 136mmHg. Right posterior tibial artery = 146mmHg. Right dorsalis pedis artery = 135mmHg. The right dorsalis pedis waveforms are triphasic. The right posterior tibial artery waveforms are triphasic. Indices The right ankle brachial index by the dorsalis pedis is 0.99. The right ankle brachial index by the posterior tibial artery is 1.07. The left ankle brachial index by the dorsalis pedis is 0.86. The left ankle brachial index by the posterior tibial artery is 0.92. Interpretation Summary 1. Right leg triphasic flow and SAMMI 1.07. 2. Left leg bip[hasic flow and SAMMI 0.92. Ordering Physician: Nohemy Valles Referring Physician: Sen Odom MD Performed By: Cara Gates RVT and Student
== END ==
PROVIDERS: Family Provider Family Medicine; PCP Family Medicine; Referring Provider Physician Assistant Medical; Visit Provider Physician Assistant Medical
DX: I73.9 Peripheral vascular disease, unspecified (principal)
CPT/HCPCS: 93923

== ENCOUNTER → 2019-02-12 | Outpatient (CLI) | payer MEDICARE, SELFPAY ==
[2018-03-13 08:23] VITALS: BMI 26.6
[2018-12-26 07:06] VITALS: BMI 25.6
--- NOTE | 2019-02-12 12:05 | RAD_ITS ---
STUDY: X-RAY LEFT FOOT, THIRD TOE REASON FOR EXAM: Female, 63 years old. Pain TECHNIQUE: 3 view(s) of the toe were obtained. COMPARISON: None. FINDINGS: Normal visualized metatarsus. Normal metatarsophalangeal (M.T.P) joint. Normal interphalangeal joints. Normal phalanges and interphalangeal joints. The soft tissue structures are unremarkable. RAD/Toe(s) Min 2 Views IMPRESSION: Normal x-ray of the toe. Electronically Signed: Andrew West MD at 12:38 EDT , Service support ,
== END | disposition home or self-care (01) ==
LOC: MTRAD 12:04
PROVIDERS: Family Provider Family Medicine; PCP Family Medicine; Referring Provider Family Medicine; Visit Provider Family Medicine
DX: S99.922A Unspecified injury of left foot, initial encounter (principal)
CPT/HCPCS: 73660

== ENCOUNTER → 2019-02-28 | Outpatient (CLI) | payer MEDICARE, SELFPAY ==
[2018-03-13 08:23] VITALS: BMI 26.6
[2018-12-26 07:06] VITALS: BMI 25.6
--- NOTE | 2019-02-28 14:51 | RAD_ITS ---
STUDY: X-RAY - PELVIS AND LEFT HIP REASON FOR EXAM: Continued left hip pain, fall in November. TECHNIQUE: 2 views of the pelvis and hip. COMPARISON: None. FINDINGS: There is is a stimulator device overlying the right hemipelvis. There are small pelvic phleboliths. There is a small soft tissue calcification adjacent to the greater trochanter. Normal bilateral iliac wings, sacroiliac joints and visualized sacrum. Normal bilateral superior and inferior pubic rami. Normal pubic symphysis. Normal bilateral ischial tuberosities. Normal visualized femoral head. Normal acetabulum. Normal hip joint. RAD/HIP, UNI W/ Pelvis 2-3 Views IMPRESSION: Small soft tissue calcification adjacent to the greater trochanter suggestive of calcific tendinitis. Otherwise, unremarkable x-ray examination of the pelvis and left hip. Electronically Signed: Renard Clinton MD at 15:50 EDT Tel , Service support ,
[2019-02-28 17:36] LABS: Absolute Lymphocyte Count 3.26 X10^3/ul (0.83-4.51); Absolute Neutrophil Count 4.2 X10^3/uL (2.0-7.7); Basophil# 0.05 X10^3/uL; Basophil% 0.6 % (0-1); Eosinophil# 0.09 X10^3/uL; Eosinophils% 1.1 % (0-5); Hemoglobin 11.3 g/dl (12.0-15.0); Lymphocyte # 3.26 X10^3/ul (4.0); Lymphocyte % 40.3 % (19-41); Mean Corp Hgb Conc 31.4 g/gl (32-36); Mean Corpuscular Hgb 27.2 pg (27.0-32.0); Mean Corpuscular Volume 86.5 fL (81-99); Mean Platelet Vol. 10.7 fl (6.2-12.0); Monocyte% 6.2 % (0-10); Neutrophil # 4.17 X10^3/uL (2.7-7.7); Neutrophil % 51.7 % (47-70); Platelet Count 260 K/mm3 (150-450); RBC Distribution Width CV 16.5 % (11.6-14.6); RBC Distribution Width SD 51.9 fl (35.1-43.9); Red Blood Count 4.16 M/mm3 (4.2-5.4); White Blood Count 8.1 K/mm3 (4.4-11.0)
[2019-02-28 17:51] LABS: POSITIVE COUNT NO; POSITIVE DIFFERENTIAL NO; POSITIVE MORPHOLOGY NO
[2019-02-28 17:56] LABS: Vitamin B12 1644 pg/mL (211-911)
[2019-02-28 18:06] LABS: ALB/GLOB Ratio 0.9 RATIO (0.9-2.4); AST(SGOT) 55 U/L (15-37); Alanine Aminotransfer ALT/SGPT 74 U/L (13-56); Albumin, Serum 3.9 g/dL (3.2-5.0); Alkaline Phosphatase 70 U/L (45-117); Anion Gap 7 (5-15); BUN 8 mg/dL (7-18); BUN/Creat Ratio 6.9 RATIO (10-20); Calcium,Total 8.9 mg/dL (8.5-10.1); Chloride 100 mmol/L (98-107); Creatinine, Serum 1.16 mg/dL (0.55-1.02); EST Glomerular Filtration Rate 50 mL/min (>60); Est Glom Filt Rate - Afr Amer 61 mL/min (>60); Globulin 4.3 g/dL (2.2-4.2); Glucose 81 mg/dL (74-106); Potassium 4.1 mmol/L (3.5-5.1); Protein, Total 8.2 g/dL (6.4-8.2); Sodium Level 133 mmol/L (136-145); Thyroid Stim Hormone (TSH) 1.73 uIU/mL (0.358-3.74)
== END | disposition home or self-care (01) ==
PROVIDERS: Family Provider Family Medicine; PCP Family Medicine; Referring Provider Nurse Practitioner Family; Visit Provider Nurse Practitioner Family
DX: M54.5 Low back pain (principal); E53.8 Deficiency of other specified B group vitamins; F41.1 Generalized anxiety disorder; I25.10 Atherosclerotic heart disease of native coronary artery without angina pectoris
CPT/HCPCS: 36415; 73502; 80053; 82607; 84443; 85025

== ENCOUNTER 2019-03-20 08:13 | Day surgery (SDC) | payer MEDICARE, SELFPAY ==
[2018-03-13 08:23] VITALS: BMI 26.6
[2018-12-26 07:06] VITALS: BMI 25.6
[2019-03-20] VITALS (11 sets, daily range): BP systolic 96–128; BP diastolic 49–78; PULSE 54–73; RESP 14–18; TEMP 36.1–36.8; O2SAT 97–100; BMI 24.3
--- NOTE | 2019-03-20 07:43 | PCM.OPRPT ---
Problem List (1) Neurogenic bladder Status: Acute (2) Urinary retention Status: Acute Report of Operation Date of Procedure: 03/20/19 Pre-Operative Diagnosis: Urinary retention, neurogenic bladder Post-Operative Diagnosis: Same Surgery/Procedure Performed:: InterStim lead replacement Description of Surgical Findings:: New lead in different position, more superficial, good response on leads 1, 2, and 3. Type of Anesthesia:: MAC Estimated Blood Loss (mL): 10cc Description of Procedure: The patient is a 64-year-old female diagnosis of urinary retention and neurogenic bladder, who developed impedances on her indwelling InterStim along with pain. Informed consent was obtained and the patient agreed to proceed with lead replacement. Patient was taken to the operating room placed on the operating room table in a prone position. Anesthesia monitored the head, neck, airway, IV access and vital signs throughout the case. Once anesthesia was a probably administered the patient was prepped and draped in usual sterile fashion. Her existing incisions were opened following infiltration with lidocaine. The lead was identified and removed. The InterStim IPG was removed from its pocket. The pocket was made slightly deeper in location. A new lead was placed using fluoroscopy. The best response was obtained with the lead in a non-curved position more superficial in nature. Due to the cammie and toe response, the decision was made to leave this in a nontraditional position. The new lead was tunneled into the existing pocket site dried and inserted into the IPG. It was secured into position using the torque wrench. The IPG was placed into the deeper pocket. There were no impedances identified. The pocket and the lead incision was were both closed with 3-0 interrupted Vicryl followed by 4-0 subcuticular suturing and Dermabond. The patient was then awakened and taken to the recovery room in good condition. There were no complications during this procedure. Grafts/Implants Used: InterStim lead - Complications None - Admit VTE Documentation VTE Present on Admission: No VTE Mechan Device Prophylaxis: None VTE Pharm Prophylaxis ordered?: No Reason prophylaxis not ordered:: Treatment Not Indicated
--- NOTE | 2019-03-20 07:46 | DCINST_ITS ---
Discharge Diet: No Restrictions Discharge Activity: May not drive while taking narcotic pain medications. May shower in (days): 2 May resume sexual activity in: 2 weeks Call your doctor if your incision/area has: Continuous Slow Oozing, Sudden Increased Bleeding, Increased Pain/ Swelling, Increased Redness, Foul Smelling Discharge, Swelling at the incision site Call your doctor if you observe: Fever of 101 or Higher, Inability to urinate, Shortness of breath, Chest pain, Calf discomfort, Uncontrolled pain Allergies/Adverse Reactions: Allergies Iodinated Contrast- Oral and IV Dye [Iodinated Contrast Media - IV Dye] Allergy (Verified 12/18/18 13:28) Other tetracycline [Tetracycline] Allergy (Verified 12/18/18 13:28) Hives pravastatin Adverse Reaction (Intermediate, Verified 12/18/18 13:28) Upset Stomach atorvastatin [From Lipitor] Adverse Reaction (Verified 12/18/18 13:28) myalgia Medications to take at Discharge Aspirin [Aspirin, Baby] 81 mg PO DAILY@0800 02/04/16 Citalopram [Celexa] 40 mg PO QHS 02/04/16 Omeprazole [Prilosec] 20 mg PO DAILY 02/04/16 busPIRone [Buspar] 5 mg PO TID 02/04/16 Clopidogrel Bisulfate [Plavix] 75 mg PO DAILY 01/27/18 Cyclobenzaprine [Flexeril] 10 mg PO TID PRN PRN 03/12/18 traZODone [Desyrel] 50 mg PO QHS 03/12/18 Lisinopril [Zestril] 2.5 mg PO DAILY #90 tab 03/14/18 meloxicam 15 mg tablet 15 mg PO DAILY 05/17/18 nitroglycerin 0.4 mg sublingual tablet 0.4 mg SUBLINGUAL Q5M PRN #25 tab 08/17/18 primidone 50 mg tablet 50 mg PO QHS 30 Days #30 tab 08/17/18 Metoprolol Tartrate 12.5 mg PO BID 10/02/18 Clonazepam [Klonopin] 1 mg PO TID 12/05/18 Azithromycin 1 tab PO DAILY 03/20/19 Cephalexin [Keflex] 500 mg PO Q12 3 Days #6 cap 03/20/19 Oxycodone HCl/Acetaminophen [Percocet 5/325] 1 - 2 tab PO Q6H PRN PRN 7 Days #30 tab 03/20/19 The following prescriptions were given: Oxycodone HCl/Acetaminophen [Percocet 5/325] 1 - 2 tab PO Q6H PRN PRN 7 Days #30 tab PRN Reason: Pain Cephalexin [Keflex] 500 mg PO Q12 3 Days #6 cap Primary Care Physician: Phani Odom MD [Primary Care Provider] - Test Results: Test results from this visit will be discussed in further detail at your follow- up appointment, if applicable. Please Follow Up With: Sophia Hammer MD When: 1 week, call office for appt Proposed Discharge Date: 03/20/19
[2019-03-20] MEDS: Vancomycin IV 1,000 MG/200 ML BAG 200 MG IV (09:15)
--- NOTE | 2019-03-20 09:40 | RAD_ITS ---
STUDY: X-RAY - PELVIS REASON FOR EXAM: Female, 64 years old. InterStim therapy lead placement. TECHNIQUE: One view of the pelvis was obtained. COMPARISON: None. FINDINGS: Intraoperative views were obtained. The InterStim lead is seen along the left posterior aspect of the pelvis. RAD/Pelvis 1 or 2 Views IMPRESSION: Intraoperative imaging provided for InterStim therapy placement. Electronically Signed: Db Bach, at 12:31 EDT , Service support ,
== END 2019-03-20 12:24 | disposition home or self-care (01) ==
LOC: SDC 08:14 → AC 08:15
PROVIDERS: Family Provider Family Medicine; PCP Family Medicine; Referring Provider Urology; Visit Provider Urology
PROC: (CPT 64581; principal; 2019-03-20 09:55)
DX: N31.9 Neuromuscular dysfunction of bladder, unspecified (principal); R33.9 Retention of urine, unspecified; K21.9 Gastro-esophageal reflux disease without esophagitis; I10 Essential (primary) hypertension; I25.10 Atherosclerotic heart disease of native coronary artery without angina pectoris; M54.9 Dorsalgia, unspecified; G89.29 Other chronic pain; J44.9 Chronic obstructive pulmonary disease, unspecified; I34.1 Nonrheumatic mitral (valve) prolapse; J45.909 Unspecified asthma, uncomplicated; R39.15 Urgency of urination; N39.0 Urinary tract infection, site not specified; N39.3 Stress incontinence (female) (male); R35.1 Nocturia; R39.16 Straining to void; I25.2 Old myocardial infarction; F17.200 Nicotine dependence, unspecified, uncomplicated; Z95.1 Presence of aortocoronary bypass graft
CPT/HCPCS: 64581; 64590; 72170; 76000; J7120; C1778; J2405

== ENCOUNTER → 2019-03-26 | Outpatient (CLI) | payer MEDICARE, SELFPAY ==
[2018-03-13 08:23] VITALS: BMI 26.6
[2019-03-20 08:39] VITALS: BMI 24.3
[2019-03-26 14:09] LABS: Erythrocyte Sedimentation Rate 16 mm/hr (0-30)
[2019-03-26 14:21] LABS: Hematocrit 34.7 % (37-47); Hemoglobin 11.1 g/dl (12.0-15.0); Mean Corpuscular Hgb 27.2 pg (27.0-32.0); Mean Platelet Vol. 9.9 fl (6.2-12.0); Platelet Count 201 K/mm3 (150-450); RBC Distribution Width CV 16.9 % (11.6-14.6); RBC Distribution Width SD 52.2 fl (35.1-43.9); Red Blood Count 4.08 M/mm3 (4.2-5.4); White Blood Count 6.6 K/mm3 (4.4-11.0)
[2019-03-26 14:22] LABS: Vitamin D,25 Hydroxy 30.9 ng/mL (29.95-100.01)
[2019-03-26 14:28] LABS: Scan Indicated on CBC? Y/N NO
[2019-03-26 14:33] LABS: ALB/GLOB Ratio 0.8 RATIO (0.9-2.4); AST(SGOT) 41 U/L (15-37); Alanine Aminotransfer ALT/SGPT 59 U/L (13-56); Albumin, Serum 3.2 g/dL (3.2-5.0); Alkaline Phosphatase 63 U/L (45-117); Anion Gap 7 (5-15); BUN 11 mg/dL (7-18); BUN/Creat Ratio 11.7 RATIO (10-20); Calcium,Total 8.8 mg/dL (8.5-10.1); Chloride 102 mmol/L (98-107); Creatinine, Serum 0.94 mg/dL (0.55-1.02); EST Glomerular Filtration Rate 64 mL/min (>60); Est Glom Filt Rate - Afr Amer 78 mL/min (>60); Globulin 4.2 g/dL (2.2-4.2); Glucose 74 mg/dL (74-106); Iron 22 ug/dL (50-170); Potassium 4.9 mmol/L (3.5-5.1); Protein, Total 7.4 g/dL (6.4-8.2); Sodium Level 136 mmol/L (136-145); Thyroid Stim Hormone (TSH) 1.64 uIU/mL (0.358-3.74)
== END | disposition home or self-care (01) ==
LOC: MFPLAB 12:15
PROVIDERS: Family Provider Family Medicine; PCP Family Medicine; Visit Provider Family Medicine
DX: R53.83 Other fatigue (principal)
CPT/HCPCS: 36415; 80053; 82306; 83540; 84443; 85027; 85652

== ENCOUNTER 2019-04-14 15:04 | Observation (INO) | payer MEDICARE, SELFPAY ==
[2018-03-13 08:23] VITALS: BMI 26.6
[2019-03-20 08:39] VITALS: BMI 24.3
[2019-04-14] VITALS (11 sets, daily range): BP systolic 116–157; BP diastolic 68–85; PULSE 39–54; RESP 16–19; TEMP 36.4–36.9; O2SAT 94–100; BMI 25.0; BMI 24.7
--- NOTE | 2019-04-14 15:32 | EKG12_ITS ---
Test Reason : CP Blood Pressure : / mmHG Vent. Rate : 050 BPM Atrial Rate : 050 BPM P-R Int : 160 ms QRS Dur : 100 ms QT Int : 464 ms P-R-T Axes : -14 -06 049 degrees QTc Int : 423 ms Sinus bradycardia Otherwise normal ECG Confirmed by JOSEPHINE CHOI, LONA ([id number]), editor & co founder VERÓNICA THAPA ([id number]) on 04/17/2019 7:56:54 AM Referred By: AMIRAH Confirmed By:LONA BURTON MD
--- NOTE | 2019-04-14 15:33 | RAD_ITS ---
STUDY: X-RAY CHEST REASON FOR EXAM: Female, 64 years old. Chest pain TECHNIQUE: PA and lateral views of the chest. COMPARISON: 10/02/2018 FINDINGS: EKG leads project over the chest. Fusion hardware of the lower cervical spine partially visualized. The lungs are clear and expanded. There is no demonstrated pleural abnormality. Normal size heart. Sternal wires and mediastinal surgical clips compatible with prior CABG. Normal visualized pulmonary arteries. Normal visualized aortic arch and descending thoracic aorta. There is demineralization of the osseous structures. Normal visualized ribs, clavicles, and shoulders. There is no demonstrated abnormality of the visualized soft tissue structures of the upper abdomen. RAD/Chest PA and Lateral IMPRESSION: 1. No acute cardiopulmonary process. Electronically Signed: Luis Solomon MD at 16:17 EDT , Service support ,
--- NOTE | 2019-04-14 15:33 | ED.VISSUMM ---
- ER Visit Summary Date of Service: 04/14/19 Chief Complaint: Chest pain History of Present Illness: The patient is a 64 F who states that for the past several days she is felt fatigued. Today at approximately 1100 hrs. she developed a sharp pressure with a component of burning in her chest going to the left shoulder. She tried 3 nitroglycerin without relief. Exertion makes this worse. She has a history of coronary artery disease having had a CABG and last year had a heart cath requiring stent placement. Regeneration Operator is Dr. Castro. She is on Plavix and aspirin. Physical Examination: Afebrile vital signs are stable Gen: Well-nourished well-developed Head: Normocephalic atraumatic Eyes: Perrl EOMI ENT: TMs clear no rhinorrhea moist mucous membranes Neck: Supple no lymphadenopathy no JVD nontender CVS: Regular rate rhythm no murmurs normal S1-S2 Respiratory: No distress clear to auscultation bilaterally chest nontender Abdomen: Soft nontender nondistended normal bowel sounds no masses Back: Nontender Extremity: Nontender no edema Skin: Normal color no rash Neuro: alert orientated ?3 CN II-XII intact normal strength sensation reflexes gait cerebellar Psych: Normal affect normal mood Test Results: EKG shows a sinus bradycardia at a rate of 50. Creatinine 1.05. Troponin is negative. Chest x-ray is clear. Emergency Department Course and Treatment: Patient received morphine and Zofran. She also received full-strength aspirin. Patient has known coronary artery disease. She continues to smoke. She presents with progressive fatigue and now chest pressure. This reason we will bring her in for further evaluation. Impression: 1. Chest pain This note was generated with [employer] dictation software. It may contain incorrect words, spelling, and punctuation that were not noted in review of the chart prior to signing ED Disposition - Plan for ED Patient: Referrals: Phani Odom MD [Primary Care Provider] -
[2019-04-14] MEDS: Ondansetron 4 MG/2 ML Vial IV ×3 (15:45→21:17)
[2019-04-14] MEDS: Aspirin 81 MG TAB.CHEW 324 MG PO (15:46)
[2019-04-14 15:55] LABS: Absolute Lymphocyte Count 3.54 X10^3/ul (0.83-4.51); Absolute Neutrophil Count 2.8 X10^3/uL (2.0-7.7); Basophil# 0.02 X10^3/uL; Basophil% 0.3 % (0-1); Eosinophils% 1.4 % (0-5); Hematocrit 35.3 % (37-47); Hemoglobin 11.4 g/dl (12.0-15.0); Lymphocyte # 3.54 X10^3/ul (4.0); Lymphocyte % 50.4 % (19-41); Mean Corp Hgb Conc 32.3 g/gl (32-36); Mean Corpuscular Hgb 27.3 pg (27.0-32.0); Mean Corpuscular Volume 84.4 fL (81-99); Mean Platelet Vol. 10.6 fl (6.2-12.0); Monocyte# 0.57 X10^3/uL; Monocyte% 8.1 % (0-10); Neutrophil # 2.79 X10^3/uL (2.7-7.7); Neutrophil % 39.7 % (47-70); Platelet Count 239 K/mm3 (150-450); RBC Distribution Width CV 17.8 % (11.6-14.6); RBC Distribution Width SD 54.9 fl (35.1-43.9); Red Blood Count 4.18 M/mm3 (4.2-5.4)
[2019-04-14 15:56] LABS: POSITIVE COUNT NO; POSITIVE DIFFERENTIAL NO; POSITIVE MORPHOLOGY NO
[2019-04-14 16:11] LABS: Anion Gap 6 (5-15); BUN 12 mg/dL (7-18); BUN/Creat Ratio 11.4 RATIO (10-20); Calcium,Total 8.5 mg/dL (8.5-10.1); Chloride 102 mmol/L (98-107); Creatinine, Serum 1.05 mg/dL (0.55-1.02); EST Glomerular Filtration Rate 56 mL/min (>60); Est Glom Filt Rate - Afr Amer 68 mL/min (>60); Estimated Creatinine Clearance 47.97 ml/min; Glucose 85 mg/dL (74-106); Potassium 4.7 mmol/L (3.5-5.1); Sodium Level 132 mmol/L (136-145)
[2019-04-14] MEDS: Morphine 4 MG/ML Syringe IV (16:24)
--- NOTE | 2019-04-14 17:31 | EKG12_ITS ---
Test Reason : CP ADMISSION Blood Pressure : / mmHG Vent. Rate : 044 BPM Atrial Rate : 044 BPM P-R Int : 160 ms QRS Dur : 108 ms QT Int : 512 ms P-R-T Axes : -24 -03 037 degrees QTc Int : 437 ms Marked sinus bradycardia Pooor R- Wave Progression Confirmed by DREAD CHOI, SABI ([id number]), newspaper or periodical editor KEAGAN VILLARREAL ([id number]) on 04/18/2019 12:07:52 PM Referred By: CARLTON Confirmed By:SABI CANADA MD
--- NOTE | 2019-04-14 17:36 | PCM.HP.STD ---
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 RCA 05/2003; Cutting balloon, PCI of Ramus, PCI/stent CFX 01/08; PTCA/taxus ADOLPH of CX, PTCA of the LAD and duiag 1 06/13; PTCA of the LAD intracoronary stent 03/2011; PTCA/ADOLPH to mid PDA 08/2012; In stent restenosis stent LM FFR @ [facility] 01/18 (5) Premature ventricular contraction Status: Chronic (6) Hyperlipidemia Status: Chronic (7) Pericardial effusion Status: Resolved (8) Atherosclerotic heart disease of [place] coronary artery without angina pectoris Status: Chronic Comment: PCI-Cutting balloon angioplasty-Mid LM for ISR 03/12/2018; 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 Ramus and RCA 05/2003; Cutting balloon, PCI of Ramus, PCI/stent CFX 01/08; PTCA/taxus ADOLPH of CX, PTCA of the LAD and duiag 1 06/13; PTCA of the LAD intracoronary stent 03/2011; PTCA/ADOLPH to mid PDA 08/2012; In stent restenosis stent LM FFR @ [facility] 01/18 (9) Nonrheumatic mitral (valve) prolapse Status: Chronic (10) Aortocoronary bypass status Status: Chronic Comment: CABG x3- GREEN to LAD, SVG to RCA and Ramus Intermedius 05/12/04 (11) Postsurgical percutaneous transluminal coronary angioplasty (PTCA) status Status: Chronic Comment: PCI-Cutting balloon angioplasty-Mid LM for ISR 03/12/2018; 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 Ramus and RCA 05/2003; Cutting balloon, PCI of Ramus, PCI/stent CFX 01/08; PTCA/taxus ADOLPH of CX, PTCA of the LAD and duiag 1 06/13; PTCA of the LAD intracoronary stent 03/2011; PTCA/ADOLPH to mid PDA 08/2012; In stent restenosis stent LM FFR @ [facility] 01/18 (12) Pulmonary nodules Status: Chronic (13) Essential hypertension Status: Chronic (14) Lung nodule < 6cm on CT Status: Chronic (15) Tobacco abuse Status: Chronic History of Present Illness Date of Admission: 04/14/19 Chief Complaint: Chest pain. The patient is a 64 year old F who presents emergency room due to chest pain. She reports she was cleaning her house when around 11 AM this morning she developed sudden burning chest pain and pressure in the center of her chest which radiated to her left shoulder. She describes associated diaphoresis, shortness of breath and dizziness. She states she took a nitro and pain was somewhat relieved so she continued cleaning. Her chest pain then worsened and she decided to come to the emergency room for further evaluation. She follows with Dr. Castro. Her last cardiac catheterization was in March 2018 when she had a stent placed. She has a past medical history of CAD status post CABG and PCI, COPD, hypertension, hyperlipidemia, nonrheumatic mitral valve prolapse, chronic kidney disease stage II-III, tobacco dependence, depression, anxiety, GERD, neurogenic bladder. Past Medical History Past Medical History (Chronic Problems): Chronic Problems (Last Updated 04/25/18 @ 17:11 by Nohemy Cantu) Urinary retention (Chronic) Neurogenic bladder (Chronic) Claudication of both lower extremities (Chronic) Presence of stent in coronary artery (Chronic) 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 Ramus and RCA 05/2003; Cutting balloon, PCI of Ramus, PCI/stent CFX 01/08; PTCA/taxus ADOLPH of CX, PTCA of the LAD and duiag 1 06/13; PTCA of the LAD intracoronary stent 03/2011; PTCA/ADOLPH to mid PDA 08/2012; In stent restenosis stent LM FFR @ [facility] 01/18 Premature ventricular contraction (Chronic) Hyperlipidemia (Chronic) Atherosclerotic heart disease of [place] coronary artery without angina pectoris (Chronic) PCI-Cutting balloon angioplasty-Mid LM for ISR 03/12/2018; 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 Ramus and RCA 05/2003; Cutting balloon, PCI of Ramus, PCI/stent CFX 01/08; PTCA/taxus ADOLPH of CX, PTCA of the LAD and duiag 1 06/13; PTCA of the LAD intracoronary stent 03/2011; PTCA/ADOLPH to mid PDA 08/2012; In stent restenosis stent LM FFR @ [facility] 01/18 Nonrheumatic mitral (valve) prolapse (Chronic) Aortocoronary bypass status (Chronic ~05/12/04) CABG x3- GREEN to LAD, SVG to RCA and Ramus Intermedius 05/12/04 Postsurgical percutaneous transluminal coronary angioplasty (PTCA) status (Chronic ~03/12/18) PCI-Cutting balloon angioplasty-Mid LM for ISR 03/12/2018; 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 Ramus and RCA 05/2003; Cutting balloon, PCI of Ramus, PCI/stent CFX 01/08; PTCA/taxus ADOLPH of CX, PTCA of the LAD and duiag 1 06/13; PTCA of the LAD intracoronary stent 03/2011; PTCA/ADOLPH to mid PDA 08/2012; In stent restenosis stent LM FFR @ [facility] 01/18 Pulmonary nodules (Chronic) Essential hypertension (Chronic) Lung nodule < 6cm on CT (Chronic) Tobacco abuse (Chronic) Medical History: Medical History (Last Updated 04/25/18 @ 17:11 by Nohemy Cantu) Premature ventricular contraction (Chronic) I49.3 Hyperlipidemia (Chronic) E78.5 Atherosclerotic heart disease of [place] coronary artery without angina pectoris (Chronic) I25.10 PCI-Cutting balloon angioplasty-Mid LM for ISR 03/12/2018; 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 Ramus and RCA 05/2003; Cutting balloon, PCI of Ramus, PCI/stent CFX 01/08; PTCA/taxus ADOLPH of CX, PTCA of the LAD and duiag 1 06/13; PTCA of the LAD intracoronary stent 03/2011; PTCA/ADOLPH to mid PDA 08/2012; In stent restenosis stent LM FFR @ [facility] 01/18 Nonrheumatic mitral (valve) prolapse (Chronic) I34.1 Pulmonary nodules (Chronic) Essential hypertension (Chronic) I10 Lung nodule < 6cm on CT (Chronic) R91.1 Tobacco abuse (Chronic) Z72.0 COPD (chronic obstructive pulmonary disease) J44.9 DDD (degenerative disc disease) HOWARD (obstructive sleep apnea) G47.33 Osteoarthritis M19.90 Pericardial effusion (Resolved) I31.3 Allergies Iodinated Contrast- Oral and IV Dye [Iodinated Contrast Media - IV Dye] Allergy (Verified 04/14/19 15:10) Other tetracycline [Tetracycline] Allergy (Verified 04/14/19 15:10) Hives pravastatin Adverse Reaction (Intermediate, Verified 04/14/19 15:10) Upset Stomach atorvastatin [From Lipitor] Adverse Reaction (Verified 04/14/19 15:10) myalgia Home Medications: Ambulatory Orders Medication Instructions Recorded Aspirin [Aspirin, Baby] 81 mg PO DAILY@0800 02/04/16 Citalopram [Celexa] 40 mg PO QHS 02/04/16 Omeprazole [Prilosec] 20 mg PO DAILY 02/04/16 busPIRone [Buspar] 10 mg PO TID 02/04/16 Clopidogrel Bisulfate [Plavix] 75 mg PO DAILY 01/27/18 cycloBENZAPRine HCl [Flexeril] 10 mg PO TID PRN PRN 03/12/18 traZODone [Desyrel] 50 mg PO QHS 03/12/18 Lisinopril [Zestril] 2.5 mg PO DAILY #90 tab 03/14/18 meloxicam 15 mg tablet 15 mg PO DAILY 05/17/18 nitroglycerin 0.4 mg sublingual 0.4 mg SUBLINGUAL Q5M PRN #25 tab 08/17/18 tablet primidone 50 mg tablet 50 mg PO QHS 30 Days #30 tab 08/17/18 Clonazepam [Klonopin] 2 mg PO TID 12/05/18 Azithromycin 1 tab PO DAILY 03/20/19 metoprolol tartrate 25 mg tablet 12.5 mg PO BID #30 tab 04/13/19 HYDROmorphone tablet [Dilaudid] 2 mg PO TID 04/14/19 Surgical History: Surgical History (Last Updated 04/25/18 @ 17:13 by Nohemy Cantu) Presence of stent in coronary artery (Chronic) Z95.5 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 Ramus and RCA 05/2003; Cutting balloon, PCI of Ramus, PCI/stent CFX 01/08; PTCA/taxus ADOLPH of CX, PTCA of the LAD and duiag 1 06/13; PTCA of the LAD intracoronary stent 03/2011; PTCA/ADOLPH to mid PDA 08/2012; In stent restenosis stent LM FFR @ [facility] 01/18 Aortocoronary bypass status (Chronic) Onset Date: ~05/12/04 Z95.1 CABG x3- GREEN to LAD, SVG to RCA and Ramus Intermedius 05/12/04 Postsurgical percutaneous transluminal coronary angioplasty (PTCA) status (Chronic) Onset Date: ~03/12/18 Z98.61 PCI-Cutting balloon angioplasty-Mid LM for ISR 03/12/2018; 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 Ramus and RCA 05/2003; Cutting balloon, PCI of Ramus, PCI/stent CFX 01/08; PTCA/taxus ADOLPH of CX, PTCA of the LAD and duiag 1 06/13; PTCA of the LAD intracoronary stent 03/2011; PTCA/ADOLPH to mid PDA 08/2012; In stent restenosis stent LM FFR @ [facility] 01/18 History of abdominal surgery Z98.890 History of bowel resection Z98.890, Z90.49 History of cataract surgery Z98.49 History of cholecystectomy Z90.49 History of total hysterectomy Z90.710 Hx of appendectomy Z90.49 Surgical History: appendectomy, cholecystectomy, coronary bypass surgery, hysterectomy, - - bilateral carpal tunnel repair, bladder suspension, small bowel resection. 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 History: No pertinent RATE ANALYST history Smoking Status: Current every day smoker Alcohol: None Drugs: None - *Family History Paternal Family History: Family History (Last Reviewed 04/14/19 @ 17:40 by MT Gomez) Father Hypertension History Items: Cancer Offspring Family History: Family History (Last Reviewed 04/14/19 @ 17:40 by MT Gomez) Father Hypertension History Items: - Maternal Family History: Family History (Last Reviewed 04/14/19 @ 17:40 by MT Gomez) Father Hypertension History Items: Cancer Sibling Family History: Family History (Last Reviewed 04/14/19 @ 17:40 by MT Gomez) Father Hypertension Review of Systems Constitutional: Denies: Chills, Fever, Weight Change HEENT: Denies: Head Aches, Sinus Congestion, Sinus Drainage Cardiovascular: Reports: Chest Pain Respiratory: Denies: Cough, Shortness of breath at rest, Sputum production Gastrointestinal: Denies: Abdominal Pain, Nausea, Vomiting Genitourinary: Denies: Dysuria Musculoskeletal: Denies: Joint Pain, Joint Tenderness Skin: Denies: Rash, Wounds Neurological: Denies: Numbness, Tingling, Focal weakness Psychiatric: Denies: Anxiety, Depression, Homicidal Ideations, Suicidal Ideations Hematologic/ Lymphatic: Denies: Easy Bruising, Easy Bleeding VTE Information - Inpt Only VTE Present on Admission: No VTE Mechan Device Prophylaxis: None VTE Pharm Prophylaxis ordered?: Yes - Physical Exam General: Alert, Oriented x3, Cooperative HEENT: Atraumatic, PERRLA, EOMI, Normocephalic Neck: Supple, No JVD, Negative Carotid Bruits Lungs: Clear to auscultation, Normal air movement Cardiovascular: Regular rate, Regular Rhythm, Normal S1, Normal S2, No murmurs Abdomen: Bowel Sounds Present, Soft, Non Tender, Non-Distended Extremities: No clubbing, No cyanosis, No edema, Capillary Refill Less than 3 Seconds Skin: No rashes, No breakdown Musculoskeletal: No Tenderness to Palpation of Joints or Extremities Neurological: Cranial nerves II-XII grossly intact, Neuro grossly intact Psych/Mental Status: Normal Affect, Appropriate Vital Signs Temp Pulse Resp BP Pulse Ox 97.6 F L 46 L 17 133/85 H 96 04/14/19 15:07 04/14/19 17:02 04/14/19 17:02 04/14/19 17:02 04/14/19 17:02 Oxygen Flow Rate (L/min) 2 Oxygen Delivery Method Nasal Cannula Weight: 145 lb 15.136 oz Body Mass Index (BMI) 25.0 Laboratory Tests Past 24 Hrs 04/14/19 04/14/19 15:17 15:17 WBC 7.0 RBC 4.18 L Hgb 11.4 L Hct 35.3 L MCV 84.4 MCH 27.3 MCHC 32.3 RDW 17.8 H RDW Differential 54.9 H Plt Count 239 MPV 10.6 Immature Gran % (Auto) 0.100 Neut % (Auto) 39.7 L Lymph % (Auto) 50.4 H [place] % (Auto) 8.1 Eos % (Auto) 1.4 Baso % (Auto) 0.3 Absolute Neuts (auto) 2.8 Absolute Lymphs (auto) 3.54 Total Counted Not Reportable Sodium 132 L Potassium 4.7 Chloride 102 Carbon Dioxide 24.0 Anion Gap 6 BUN 12 Creatinine 1.05 H Estim Creat Clear Calc 47.97 Est GFR (MDRD) Af Amer 68 Est GFR (MDRD) Non-Af 56 L BUN/Creatinine Ratio 11.4 Glucose 85 Calcium 8.5 Troponin I < 0.015 Assessment/Plan All Active Problems (Last Updated 04/25/18 @ 17:11 by Nohemy Cantu) Pericardial effusion (Resolved) 1. Unstable angina with history of CAD status post CABG/PCI-EKG without ST-T changes. Initial troponin negative. Chest x-ray unremarkable. Trend enzymes. Patient follows with Dr. Castro. Patient had cardiac catheterization 03/12/2018 with PCI to mid left main in-stent restenosis. Consult cardiology. Continue aspirin, Plavix, metoprolol. 2. Chronic COPD- no acute exacerbation. 3. Hypertension-stable, continue home lisinopril, metoprolol regimen. 4. Hyperlipidemia-reported allergy to statin. 5. Nonrheumatic mitral valve prolapse 6. Chronic kidney disease stage II-III-at baseline, trend BMP. 7. Tobacco dependence-encouraged smoking cessation. Nicotine replacement patch if desired. 8. Depression/anxiety-continue trazodone, citalopram, buspirone regimen. 9. GERD-continue PPI. 10. Neurogenic bladder/urinary retention-status post InterStim lead placement with Dr. Hammer 03/20/19. DVT prophylaxis-Lovenox subcu This patient was seen by MT Gomez under the supervision of Dr. Sarmiento. 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 Ramus and RCA 05/2003; Cutting balloon, PCI of Ramus, PCI/stent CFX 01/08; PTCA/taxus ADOLPH of CX, PTCA of the LAD and duiag 1 06/13; PTCA of the LAD intracoronary stent 03/2011; PTCA/ADOLPH to mid PDA 08/2012; In stent restenosis stent LM FFR @ [facility] 01/18 Nonrheumatic mitral (valve) prolapse (Chronic) I34.1 Pulmonary nodules (Chronic) Essential hypertension (Chronic) I10 Lung nodule < 6cm on CT (Chronic) R91.1 Tobacco abuse (Chronic) Z72.0 COPD (chronic obstructive pulmonary disease) J44.9 DDD (degenerative disc disease) HOWARD (obstructive sleep apnea) G47.33 Osteoarthritis M19.90 Pericardial effusion (Resolved) I31.3 Allergies Iodinated Contrast- Oral and IV Dye [Iodinated Contrast Media - IV Dye] Allergy (Verified 04/14/19 15:10) Other tetracycline [Tetracycline] Allergy (Verified 04/14/19 15:10) Hives pravastatin Adverse Reaction (Intermediate, Verified 04/14/19 15:10) Upset Stomach atorvastatin [From Lipitor] Adverse Reaction (Verified 04/14/19 15:10) myalgia Surgical History: Surgical History (Last Updated 04/25/18 @ 17:13 by Nohemy Cantu) Presence of stent in coronary artery (Chronic) Z95.5 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 Ramus and RCA 05/2003; Cutting balloon, PCI of Ramus, PCI/stent CFX 01/08; PTCA/taxus ADOLPH of CX, PTCA of the LAD and duiag 1 06/13; PTCA of the LAD intracoronary stent 03/2011; PTCA/ADOLPH to mid PDA 08/2012; In stent restenosis stent LM FFR @ [facility] 01/18 Aortocoronary bypass status (Chronic) Onset Date: ~05/12/04 Z95.1 CABG x3- GREEN to LAD, SVG to RCA and Ramus Intermedius 05/12/04 Postsurgical percutaneous transluminal coronary angioplasty (PTCA) status (Chronic) Onset Date: ~03/12/18 Z98.61 PCI-Cutting balloon angioplasty-Mid LM for ISR 03/12/2018; 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 and RCA 05/2003; Cutting balloon, PCI of Ramus, PCI/stent CFX 01/08; PTCA/taxus ADOLPH of CX, PTCA of the LAD and duiag 1 06/13; PTCA of the LAD intracoronary stent 03/2011; PTCA/ADOLPH to mid PDA 08/2012; In stent restenosis stent LM FFR @ [facility] 01/18 History of abdominal surgery Z98.890 History of bowel resection Z98.890, Z90.49 History of cataract surgery Z98.49 History of cholecystectomy Z90.49 History of total hysterectomy Z90.710 Hx of appendectomy Z90.49 - *Family History Paternal Family History: Family History (Last Reviewed 04/14/19 @ 17:40 by MT Gomez) Father Hypertension Offspring Family History: Family History (Last Reviewed 04/14/19 @ 17:40 by MT Gomez) Father Hypertension Maternal Family History: Family History (Last Reviewed 04/14/19 @ 17:40 by MT Gomez) Father Hypertension Sibling Family History: Family History (Last Reviewed 04/14/19 @ 17:40 by MT Gomez) Father Hypertension - Physical Exam Vital Signs Temp Pulse Resp BP Pulse Ox 98.4 F 44 L 16 157/76 H 100 04/14/19 18:07 04/14/19 18:07 04/14/19 18:07 04/14/19 18:07 04/14/19 18:07 Oxygen Flow Rate (L/min) 2 Oxygen Delivery Method Room Air Weight: 144 lb 3.2 oz Body Mass Index (BMI) 24.7 Intake and Output for Last 24 Hours 04/12/19 04/13/19 04/14/19 23:59 23:59 23:59 Intake Total 240 / 240 Balance 240 / 240 Laboratory Tests Past 24 Hrs 04/14/19 04/14/19 15:17 15:17 WBC 7.0 RBC 4.18 L Hgb 11.4 L Hct 35.3 L MCV 84.4 MCH 27.3 MCHC 32.3 RDW 17.8 H RDW Differential 54.9 H Plt Count 239 MPV 10.6 Immature Gran % (Auto) 0.100 Neut % (Auto) 39.7 L Lymph % (Auto) 50.4 H [place] % (Auto) 8.1 Eos % (Auto) 1.4 Baso % (Auto) 0.3 Absolute Neuts (auto) 2.8 Absolute Lymphs (auto) 3.54 Total Counted Not Reportable Sodium 132 L Potassium 4.7 Chloride 102 Carbon Dioxide 24.0 Anion Gap 6 BUN 12 Creatinine 1.05 H Estim Creat Clear Calc 47.97 Est GFR (MDRD) Af Amer 68 Est GFR (MDRD) Non-Af 56 L BUN/Creatinine Ratio 11.4 Glucose 85 Calcium 8.5 Troponin I < 0.015 Code Visit Addendum: Dr. Sarmiento I personally examined the patient and reviewed the chart. I agree with the above. 62-year-old female who presented to the hospital with chest pain today while cleaning out her house. She took a nitroglycerin which helped relieve the pain. She went back to cleaning her house and she had recurrence of the pain. In the ER nitro did not relieve the pain and she ended up having a headache from it. She has a history of cardiac stents and a CABG, with her most recent cath about a year ago where they placed a stent inside another stent. We will trend her troponins and possibly consult cardiology in the morning. We will continue with all of her home medications. OBSV E&M: [id number] Initial observation care L3
--- NOTE | 2019-04-14 17:49 | HP.PCM_ITS ---
<Cynthia Moon - Last Filed: 04/14/19 17:57> Problem List (1) Urinary retention Status: Chronic (2) Neurogenic bladder Status: Chronic (3) Claudication of both lower extremities Status: Chronic (4) Presence of stent in coronary artery Status: Chronic Comment: ADMISSIONS DIRECTOR/stent to Ramus and RCA 05/2003; Cutting balloon, PCI of Ramus, PCI/stent CFX 01/08; PTCA/taxus ADOLPH of CX, PTCA of the LAD and duiag 1 06/13; PTCA of the LAD intracoronary stent 03/2011; PTCA/ADOLPH to mid PDA 08/2012; In stent restenosis stent LM FFR @ [facility] 01/18 (5) Premature ventricular contraction Status: Chronic (6) Hyperlipidemia Status: Chronic (7) Pericardial effusion Status: Resolved (8) Atherosclerotic heart disease of [place] coronary artery without angina pectoris Status: Chronic Comment: PCI-Cutting balloon angioplasty-Mid LM for ISR 03/12/2018; ADMISSIONS DIRECTOR/stent to Ramus and RCA 05/2003; Cutting balloon, PCI of Ramus, PCI/stent CFX 01/08; PTCA/taxus ADOLPH of CX, PTCA of the LAD and duiag 1 06/13; PTCA of the LAD intracoronary stent 03/2011; PTCA/ADOLPH to mid PDA 08/2012; In stent restenosis stent LM FFR @ [facility] 01/18 (9) Nonrheumatic mitral (valve) prolapse Status: Chronic (10) Aortocoronary bypass status Status: Chronic Comment: CABG x3- GREEN to LAD, SVG to RCA and Ramus I clement 05/12/04 (11) Postsurgical percutaneous transluminal coronary angioplasty (PTCA) status Status: Chronic Comment: PCI-Cutting balloon angioplasty-Mid LM for ISR 03/12/2018; ADMISSIONS DIRECTOR/stent to Ramus and RCA 05/2003; Cutting balloon, PCI of Ramus, PCI/stent CFX 01/08; PTCA/taxus ADOLPH of CX, PTCA of the LAD and duiag 1 06/13; PTCA of the LAD intracoronary stent 03/2011; PTCA/ADOLPH to mid PDA 08/2012; In stent restenosis stent LM FFR @ [facility] 01/18 (12) Pulmonary nodules Status: Chronic (13) Essential hypertension Status: Chronic (14) Lung nodule < 6cm on CT Status: Chronic (15) Tobacco abuse Status: Chronic History of Present Illness Date of Admission: 04/14/19 Chief Complaint: Chest pain. The patient is a 64 year old F who presents emergency room due to chest pain. She reports she was cleaning her house when around 11 AM this morning she developed sudden burning chest pain and pressure in the center of her chest which radiated to her left shoulder. She describes associated diaphoresis, shortness of breath and dizziness. She states she took a nitro and pain was somewhat relieved so she continued cleaning. Her chest pain then worsened and she decided to come to the emergency room for further evaluation. She follows with Dr. Castro. Her last cardiac catheterization was in March 2018 when she had a stent placed. She has a past medical history of CAD status post CABG and PCI, COPD, hypertension, hyperlipidemia, nonrheumatic mitral valve prolapse, chronic kidney disease stage II-III, tobacco dependence, depression, anxiety, GERD, neurogenic bladder. Past Medical History Past Medical History (Chronic Problems): Chronic Problems (Last Updated 04/25/18 @ 17:11 by Nohemy Cantu) Urinary retention (Chronic) Neurogenic bladder (Chronic) Claudication of both lower extremities (Chronic) Presence of stent in coronary artery (Chronic) ADMISSIONS DIRECTOR/stent to Ramus and RCA 05/2003; Cutting balloon, PCI of Ramus, PCI/stent CFX 01/08; PTCA/taxus ADOLPH of CX, PTCA of the LAD and duiag 1 06/13; PTCA of the LAD intracoronary stent 03/2011; PTCA/ADOLPH to mid PDA 08/2012; In stent restenosis stent LM FFR @ [facility] 01/18 Premature ventricular contraction (Chronic) Hyperlipidemia (Chronic) Atherosclerotic heart disease of [place] coronary artery without angina pectoris (Chronic) PCI-Cutting balloon angioplasty-Mid LM for ISR 03/12/2018; ADMISSIONS DIRECTOR/stent to Ramus and RCA 05/2003; Cutting balloon, PCI of Ramus, PCI/stent CFX 01/08; PTCA/taxus ADOLPH of CX, PTCA of the LAD and duiag 1 06/13; PTCA of the LAD intracoronary stent 03/2011; PTCA/ADOLPH to mid PDA 08/2012; In stent restenosis stent LM FFR @ [facility] 01/18 Nonrheumatic mitral (valve) prolapse (Chronic) Aortocoronary bypass status (Chronic ~05/12/04) CABG x3- GREEN to LAD, SVG to RCA and Ramus Intermedius 05/12/04 Postsurgical percutaneous transluminal coronary angioplasty (PTCA) status (Chronic ~03/12/18) PCI-Cutting balloon angioplasty-Mid LM for ISR 03/12/2018; ADMISSIONS DIRECTOR/stent to Ramus and RCA 05/2003; Cutting balloon, PCI of Ramus, PCI/stent CFX 01/08; PTCA/taxus ADOLPH of CX, PTCA of the LAD and duiag 1 06/13; PTCA of the LAD intracoronary stent 03/2011; PTCA/ADOLPH to mid PDA 08/2012; In stent restenosis stent LM FFR @ [facility] 01/18 Pulmonary nodules (Chronic) Essential hypertension (Chronic) Lung nodule < 6cm on CT (Chronic) Tobacco abuse (Chronic) Medical History: Medical History (Last Updated 04/25/18 @ 17:11 by Nohemy Cantu) Premature ventricular contraction (Chronic) I49.3 Hyperlipidemia (Chronic) E78.5 Atherosclerotic heart disease of [place] coronary artery without angina pectoris (Chronic) I25.10 PCI-Cutting balloon angioplasty-Mid LM for ISR 03/12/2018; ADMISSIONS DIRECTOR/stent to Ramus and RCA 05/2003; Cutting balloon, PCI of Ramus, PCI/stent CFX 01/08; PTCA/taxus ADOLPH of CX, PTCA of the LAD and duiag 1 06/13; PTCA of the LAD intracoronary stent 03/2011; PTCA/ADOLHP to mid PDA 08/2012; In stent restenosis stent LM FFR @ [facility] 01/18 Nonrheumatic mitral (valve) prolapse (Chronic) I34.1 Pulmonary nodules (Chronic) Essential hypertension (Chronic) I10 Lung nodule < 6cm on CT (Chronic) R91.1 Tobacco abuse (Chronic) Z72.0 COPD (chronic obstructive pulmonary disease) J44.9 DDD (degenerative disc disease) HOWARD (obstructive sleep apnea) G47.33 Osteoarthritis M19.90 Pericardial effusion (Resolved) I31.3 Allergies Iodinated Contrast- Oral and IV Dye [Iodinated Contrast Media - IV Dye] Allergy (Verified 04/14/19 15:10) Other tetracycline [Tetracycline] Allergy (Verified 04/14/19 15:10) Hives pravastatin Adverse Reaction (Intermediate, Verified 04/14/19 15:10) Upset Stomach atorvastatin [From Lipitor] Adverse Reaction (Verified 04/14/19 15:10) myalgia Home Medications: Ambulatory Orders Medication Instructions Recorded Aspirin [Aspirin, Baby] 81 mg PO DAILY@0800 02/04/16 Citalopram [Celexa] 40 mg PO QHS 02/04/16 Omeprazole [Prilosec] 20 mg PO DAILY 02/04/16 busPIRone [Buspar] 10 mg PO TID 02/04/16 Clopidogrel Bisulfate [Plavix] 75 mg PO DAILY 01/27/18 cycloBENZAPRine HCl [Flexeril] 10 mg PO TID PRN PRN 03/12/18 traZODone [Desyrel] 50 mg PO QHS 03/12/18 Lisinopril [Zestril] 2.5 mg PO DAILY #90 tab 03/14/18 meloxicam 15 mg tablet 15 mg PO DAILY 05/17/18 nitroglycerin 0.4 mg sublingual 0.4 mg SUBLINGUAL Q5M PRN #25 tab 08/17/18 tablet primidone 50 mg tablet 50 mg PO QHS 30 Days #30 tab 08/17/18 Clonazepam [Klonopin] 2 mg PO TID 12/05/18 Azithromycin 1 tab PO DAILY 03/20/19 metoprolol tartrate 25 mg tablet 12.5 mg PO BID #30 tab 04/13/19 HYDROmorphone tablet [Dilaudid] 2 mg PO TID 04/14/19 Surgical History: Surgical History (Last Updated 04/25/18 @ 17:13 by Nohemy Cantu) Presence of stent in coronary artery (Chronic) Z95.5 ADMISSIONS DIRECTOR/stent to Ramus and RCA 05/2003; Cutting balloon, PCI of Ramus, PCI/stent CFX 01/08; PTCA/taxus ADOLPH of CX, PTCA of the LAD and duiag 1 06/13; PTCA of the LAD intracoronary stent 03/2011; PTCA/ADOLPH to mid PDA 08/2012; In stent restenosis stent LM FFR @ [facility] 01/18 Aortocoronary bypass status (Chronic) Onset Date: ~05/12/04 Z95.1 CABG x3- GREEN to LAD, SVG to RCA and Ramus Intermedius 07/06/04 Postsurgical percutaneous transluminal coronary angioplasty (PTCA) status (Chronic) Onset Date: ~03/12/18 Z98.61 PCI-Cutting balloon angioplasty-Mid LM for ISR 03/12/2018; ADMISSIONS DIRECTOR/stent to Ramus and RCA 05/2003; Cutting balloon, PCI of Ramus, PCI/stent CFX 01/08; PTCA/taxus ADOLPH of CX, PTCA of the LAD and duiag 1 06/13; PTCA of the LAD intracoronary stent 03/2011; PTCA/ADOLPH to mid PDA 08/2012; In stent restenosis stent LM FFR @ [facility] 01/18 History of abdominal surgery Z98.890 History of bowel resection Z98.890, Z90.49 History of cataract surgery Z98.49 History of cholecystectomy Z90.49 History of total hysterectomy Z90.710 Hx of appendectomy Z90.49 Surgical History: appendectomy, cholecystectomy, coronary bypass surgery, hysterectomy, - - bilateral carpal tunnel repair, bladder suspension, small bowel resection. 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: Anxiety, Depression [employer] History: No pertinent [employer] history Smoking Status: Current every day smoker Alcohol: None Drugs: None - *Family History Paternal Family History: Family History (Last Reviewed 04/14/19 @ 17:40 by MT Gomez) Father Hypertension History Items: Cancer Offspring Family History: Family History (Last Reviewed 04/14/19 @ 17:40 by MT Gomez) Father Hypertension History Items: - Maternal Family History: Family History (Last Reviewed 04/14/19 @ 17:40 by MT Gomez) Father Hypertension History Items: Cancer Sibling Family History: Family History (Last Reviewed 04/14/19 @ 17:40 by MT Gomez) Father Hypertension Review of Systems Constitutional: Denies: Chills, Fever, Weight Change HEENT: Denies: Head Aches, Sinus Congestion, Sinus Drainage Cardiovascular: Reports: Chest Pain Respiratory: Denies: Cough, Shortness of breath at rest, Sputum production Gastrointestinal: Denies: Abdominal Pain, Nausea, Vomiting Genitourinary: Denies: Dysuria Musculoskeletal: Denies: Joint Pain, Joint Tenderness Skin: Denies: Rash, Wounds Neurological: Denies: Numbness, Tingling, Focal weakness Psychiatric: Denies: Anxiety, Depression, Homicidal Ideations, Suicidal Ideations Hematologic/ Lymphatic: Denies: Easy Bruising, Easy Bleeding VTE Information - Inpt Only VTE Present on Admission: No VTE Mechan Device Prophylaxis: None VTE Pharm Prophylaxis ordered?: Yes - Physical Exam General: Alert, Oriented x3, Cooperative HEENT: Atraumatic, PERRLA, EOMI, Normocephalic Neck: Supple, No JVD, Negative Carotid Bruits Lungs: Clear to auscultation, Normal air movement Cardiovascular: Regular rate, Regular Rhythm, Normal S1, Normal S2, No murmurs Abdomen: Bowel Sounds Present, Soft, Non Tender, Non-Distended Extremities: No clubbing, No cyanosis, No edema, Capillary Refill Less than 3 Seconds Skin: No rashes, No breakdown Musculoskeletal: No Tenderness to Palpation of Joints or Extremities Neurological: Cranial nerves II-XII grossly intact, Neuro grossly intact Psych/Mental Status: Normal Affect, Appropriate Vital Signs Temp Pulse Resp BP Pulse Ox 97.6 F L 46 L 17 133/85 H 96 04/14/19 15:07 04/14/19 17:02 04/14/19 17:02 04/14/19 17:02 04/14/19 17:02 Oxygen Flow Rate (L/min) 2 Oxygen Delivery Method Nasal Cannula Weight: 145 lb 15.136 oz Body Mass Index (BMI) 25.0 Laboratory Tests Past 24 Hrs 04/14/19 04/14/19 15:17 15:17 WBC 7.0 RBC 4.18 L Hgb 11.4 L Hct 35.3 L MCV 84.4 MCH 27.3 MCHC 32.3 RDW 17.8 H RDW Differential 54.9 H Plt Count 239 MPV 10.6 Immature Gran % (Auto) 0.100 Neut % (Auto) 39.7 L Lymph % (Auto) 50.4 H [place] % (Auto) 8.1 Eos % (Auto) 1.4 Baso % (Auto) 0.3 Absolute Neuts (auto) 2.8 Absolute Lymphs (auto) 3.54 Total Counted Not Reportable Sodium 132 L Potassium 4.7 Chloride 102 Carbon Dioxide 24.0 Anion Gap 6 BUN 12 Creatinine 1.05 H Estim Creat Clear Calc 47.97 Est GFR (MDRD) Af Amer 68 Est GFR (MDRD) Non-Af 56 L BUN/Creatinine Ratio 11.4 Glucose 85 Calcium 8.5 Troponin I < 0.015 Assessment/Plan All Active Problems (Last Updated 04/25/18 @ 17:11 by Nohemy Cantu) Pericardial effusion (Resolved) 1. Unstable angina with history of CAD status post CABG/PCI-EKG without ST-T changes. Initial troponin negative. Chest x-ray unremarkable. Trend enzymes. Patient follows with Dr. Castro. Patient had cardiac catheterization 03/12/2018 with PCI to mid left main in-stent restenosis. Consult cardiology. Continue aspirin, Plavix, metoprolol. 2. Chronic COPD- no acute exacerbation. 3. Hypertension-stable, continue home lisinopril, metoprolol regimen. 4. Hyperlipidemia-reported allergy to statin. 5. Nonrheumatic mitral valve prolapse 6. Chronic kidney disease stage II-III-at baseline, trend BMP. 7. Tobacco dependence-encouraged smoking cessation. Nicotine replacement patch if desired. 8. Depression/anxiety-continue trazodone, citalopram, buspirone regimen. 9. GERD-continue PPI. 10. Neurogenic bladder/urinary retention-status post InterStim lead placement with Dr. Hammer 03/20/19. DVT prophylaxis-Lovenox subcu This patient was seen by MT Gomez under the supervision of Dr. Sarmiento. <Asim Sarmiento F - Last Filed: 04/14/19 18:59> History of Present Illness The patient is a 64 year old F [] Past Medical History Medical History: Medical History (Last Updated 04/25/18 @ 17:11 by Nohemy Cantu) Premature ventricular contraction (Chronic) I49.3 Hyperlipidemia (Chronic) E78.5 Atherosclerotic heart disease of [place] coronary artery without angina pectoris (Chronic) I25.10 PCI-Cutting balloon angioplasty-Mid LM for ISR 03/12/2018; ADMISSIONS DIRECTOR/stent to Ramus and RCA 05/2003; Cutting balloon, PCI of Ramus, PCI/stent CFX 01/08; PTCA/taxus ADOLPH of CX, PTCA of the LAD and duiag 1 06/13; PTCA of the LAD intracoronary stent 03/2011; PTCA/ADOLPH to mid PDA 08/2012; In stent restenosis stent LM FFR @ [facility] 01/18 Nonrheumatic mitral (valve) prolapse (Chronic) I34.1 Pulmonary nodules (Chronic) Essential hypertension (Chronic) I10 Lung nodule < 6cm on CT (Chronic) R91.1 Tobacco abuse (Chronic) Z72.0 COPD (chronic obstructive pulmonary disease) J44.9 DDD (degenerative disc disease) HOWARD (obstructive sleep apnea) G47.33 Osteoarthritis M19.90 Pericardial effusion (Resolved) I31.3 Allergies Iodinated Contrast- Oral and IV Dye [Iodinated Contrast Media - IV Dye] Allergy (Verified 04/14/19 15:10) Other tetracycline [Tetracycline] Allergy (Verified 04/14/19 15:10) Hives pravastatin Adverse Reaction (Intermediate, Verified 04/14/19 15:10) Upset Stomach atorvastatin [From Lipitor] Adverse Reaction (Verified 04/14/19 15:10) myalgia Surgical History: Surgical History (Last Updated 04/25/18 @ 17:13 by Nohemy Cantu) Presence of stent in coronary artery (Chronic) Z95.5 ADMISSIONS DIRECTOR/stent to Ramus and RCA 05/2003; Cutting balloon, PCI of Ramus, PCI/stent CFX 01/08; PTCA/taxus ADOLPH of CX, PTCA of the LAD and duiag 1 06/13; PTCA of the LAD intracoronary stent 03/2011; PTCA/ADOLPH to mid PDA 08/2012; In stent restenosis stent LM FFR @ [facility] 01/18 Aortocoronary bypass status (Chronic) Onset Date: ~05/12/04 Z95.1 CABG x3- GREEN to LAD, SVG to RCA and Ramus Intermedius 05/12/04 Postsurgical percutaneous transluminal coronary angioplasty (PTCA) status (Chronic) Onset Date: ~03/12/18 Z98.61 PCI-Cutting balloon angioplasty-Mid LM for ISR 03/12/2018; ADMISSIONS DIRECTOR/stent to Ramus and RCA 05/2003; Cutting balloon, PCI of Ramus, PCI/stent CFX 01/08; PTCA/taxus ADOLPH of CX, PTCA of the LAD and duiag 1 06/13; PTCA of the LAD intracoronary stent 03/2011; PTCA/ADOLPH to mid PDA 08/2012; In stent restenosis stent LM FFR @ [facility] 01/18 History of abdominal surgery Z98.890 History of bowel resection Z98.890, Z90.49 History of cataract surgery Z98.49 History of cholecystectomy Z90.49 History of total hysterectomy Z90.710 Hx of appendectomy Z90.49 - *Family History Paternal Family History: Family History (Last Reviewed 04/14/19 @ 17:40 by MT Gomez) Father Hypertension Offspring Family History: Family History (Last Reviewed 04/14/19 @ 17:40 by MT Gomez) Father Hypertension Maternal Family History: Family History (Last Reviewed 04/14/19 @ 17:40 by MT Gomez) Father Hypertension Sibling Family History: Family History (Last Reviewed 04/14/19 @ 17:40 by MT Gomez) Father Hypertension - Physical Exam Vital Signs Temp Pulse Resp BP Pulse Ox 98.4 F 44 L 16 157/76 H 100 04/14/19 18:07 04/14/19 18:07 04/14/19 18:07 04/14/19 18:07 04/14/19 18:07 Oxygen Flow Rate (L/min) 2 Oxygen Delivery Method Room Air Weight: 144 lb 3.2 oz Body Mass Index (BMI) 24.7 Intake and Output for Last 24 Hours 04/12/19 04/13/19 04/14/19 23:59 23:59 23:59 Intake Total 240 / 240 Balance 240 / 240 Laboratory Tests Past 24 Hrs 04/14/19 04/14/19 15:17 15:17 WBC 7.0 RBC 4.18 L Hgb 11.4 L Hct 35.3 L MCV 84.4 MCH 27.3 MCHC 32.3 RDW 17.8 H RDW Differential 54.9 H Plt Count 239 MPV 10.6 Immature Gran % (Auto) 0.100 Neut % (Auto) 39.7 L Lymph % (Auto) 50.4 H [place] % (Auto) 8.1 Eos % (Auto) 1.4 Baso % (Auto) 0.3 Absolute Neuts (auto) 2.8 Absolute Lymphs (auto) 3.54 Total Counted Not Reportable Sodium 132 L Potassium 4.7 Chloride 102 Carbon Dioxide 24.0 Anion Gap 6 BUN 12 Creatinine 1.05 H Estim Creat Clear Calc 47.97 Est GFR (MDRD) Af Amer 68 Est GFR (MDRD) Non-Af 56 L BUN/Creatinine Ratio 11.4 Glucose 85 Calcium 8.5 Troponin I < 0.015 Code Visit Addendum: Dr. Sarmiento I personally examined the patient and reviewed the chart. I agree with the above. 62-year-old female who presented to the hospital with chest pain today while cleaning out her house. She took a nitroglycerin which helped relieve the pain. She went back to cleaning her house and she had recurrence of the pain. In the ER nitro did not relieve the pain and she ended up having a headache from it. She has a history of cardiac stents and a CABG, with her most recent cath about a year ago where they placed a stent inside another stent. We will trend her troponins and possibly consult cardiology in the morning. We will continue with all of her home medications. OBSV E&M: [id number] Initial observation care L3
[2019-04-14] MEDS: cycloBENZAPRine HCl 10 MG Tablet PO (18:19)
[2019-04-14] MEDS: 0.9% Normal Saline 1,000 ML 100 ML IV (20:23)
[2019-04-14] MEDS: HYDROmorphone 2 MG TABLET PO (21:15)
[2019-04-14] MEDS: busPIRone 5 MG Tablet 10 MG PO (21:15)
[2019-04-14] MEDS: traZODone 50 MG Tablet PO (21:15)
[2019-04-14] MEDS: clonazePAM 1 MG Tablet 2 MG PO (21:16)
[2019-04-14] MEDS: Metoprolol Tartrate 25 MG Tablet 12.5 MG PO (21:16)
[2019-04-14] MEDS: Primidone 50 MG Tablet PO (21:16)
[2019-04-15] VITALS (14 sets, daily range): BP systolic 140–157; BP diastolic 64–72; PULSE 37–51; RESP 16–19; TEMP 36.4–37; O2SAT 95–100
--- NOTE | 2019-04-15 02:29 | NURSING ---
Sanna Vidal RN resuming care of pt.
[2019-04-15] MEDS: HYDROmorphone 2 MG TABLET PO ×3 (05:38→21:45)
[2019-04-15] MEDS: busPIRone 5 MG Tablet 10 MG PO ×3 (05:38→21:45)
[2019-04-15] MEDS: 0.9% Normal Saline 1,000 ML 100 ML IV ×2 (05:39→14:45)
[2019-04-15] MEDS: clonazePAM 1 MG Tablet 2 MG PO ×3 (05:39→21:48)
[2019-04-15 07:29] LABS: Anion Gap 6 (5-15); BUN 14 mg/dL (7-18); BUN/Creat Ratio 13.6 RATIO (10-20); Calcium,Total 8.9 mg/dL (8.5-10.1); Chloride 105 mmol/L (98-107); Creatinine, Serum 1.03 mg/dL (0.55-1.02); EST Glomerular Filtration Rate 58 mL/min (>60); Est Glom Filt Rate - Afr Amer 70 mL/min (>60); Glucose 77 mg/dL (74-106); Potassium 4.9 mmol/L (3.5-5.1); Sodium Level 139 mmol/L (136-145)
[2019-04-15] MEDS: Aspirin 81 MG TAB.CHEW PO (08:38)
[2019-04-15] MEDS: Meloxicam 15 MG Tablet PO (08:40)
[2019-04-15] MEDS: Enoxaparin 40 MG/0.4 ML Syringe SC (08:40)
[2019-04-15] MEDS: Pantoprazole Sodium 20 MG Tablet PO (08:41)
[2019-04-15] MEDS: Clopidogrel Bisulfate 75 MG Tablet PO (08:41)
[2019-04-15] MEDS: Lisinopril 2.5 MG Tablet PO (08:41)
--- NOTE | 2019-04-15 10:13 | PCM.CONS.C ---
Reason for Consult Date of Consultation: 04/15/19 Reason for Consultation: Chest discomfort History of Present Illness: The patient is a 64 year old F who presents emergency room due to chest pain. She reports she was cleaning her house when around 11 AM this morning she developed sudden burning chest pain and pressure in the center of her chest which radiated to her left shoulder. She describes associated diaphoresis, shortness of breath and dizziness. She states she took a nitro and pain was somewhat relieved so she continued cleaning. Her chest pain then worsened and she decided to come to the emergency room for further evaluation. She has a past medical history of CAD status post CABG and PCI, COPD, hypertension, hyperlipidemia, nonrheumatic mitral valve prolapse, chronic kidney disease stage II-III, tobacco dependence, depression, anxiety, GERD, neurogenic bladder. She has had multiple cardiac catheterizations in the past including coronary artery bypass surgery as well. Her last catheterization demonstrated the following: Left ventricle with an LVEF of 20-25%; left main coronary artery with in-stent restenosis of 75-80%; LAD with no significant disease reported; LCx with 100% stenosis; RCA with 100% stenosis; intermediate ramus with no significant disease noted; GREEN to the LAD patent; SVG to the third OM patent; SVG to the right PDA patent; mitral valve insufficiency of grade 2-3; aortic root dilated; status post subsequent PTCA to the mid left main coronary artery. This was in March 2018. An echocardiogram that was performed in May 2018 demonstrated an ejection fraction of 55% with segmental wall motion abnormalities present. She is currently pain-free. Has denied any palpitations or paroxysmal nocturnal dyspnea. Past Medical History Allergies/Adverse Reactions: Allergies Iodinated Contrast- Oral and IV Dye [Iodinated Contrast Media - IV Dye] Allergy (Verified 04/14/19 15:10) Other tetracycline [Tetracycline] Allergy (Verified 04/14/19 15:10) Hives pravastatin Adverse Reaction (Intermediate, Verified 04/14/19 15:10) Upset Stomach atorvastatin [From Lipitor] Adverse Reaction (Verified 04/14/19 15:10) myalgia Home Medications: Ambulatory Orders Medication Instructions Recorded Aspirin [Aspirin, Baby] 81 mg PO DAILY@0800 02/04/16 Citalopram [Celexa] 40 mg PO QHS 02/04/16 Omeprazole [Prilosec] 20 mg PO DAILY 02/04/16 busPIRone [Buspar] 10 mg PO TID 02/04/16 Clopidogrel Bisulfate [Plavix] 75 mg PO DAILY 01/27/18 cycloBENZAPRine HCl [Flexeril] 10 mg PO TID PRN PRN 03/12/18 traZODone [Desyrel] 50 mg PO QHS 03/12/18 Lisinopril [Zestril] 2.5 mg PO DAILY #90 tab 03/14/18 meloxicam 15 mg tablet 15 mg PO DAILY 05/17/18 nitroglycerin 0.4 mg sublingual 0.4 mg SUBLINGUAL Q5M PRN #25 tab 08/17/18 tablet primidone 50 mg tablet 50 mg PO QHS 30 Days #30 tab 08/17/18 Clonazepam [Klonopin] 2 mg PO TID 12/05/18 Azithromycin 1 tab PO DAILY 03/20/19 metoprolol tartrate 25 mg tablet 12.5 mg PO BID #30 tab 04/13/19 HYDROmorphone tablet [Dilaudid] 2 mg PO TID 04/14/19 Past Medical History (Chronic Problems): Chronic Problems (Last Updated 04/25/18 @ 17:11 by Nohemy Cantu) Urinary retention (Chronic) Neurogenic bladder (Chronic) Claudication of both lower extremities (Chronic) Presence of stent in coronary artery (Chronic) FINANCIAL ASSISTANCE ADVISOR/stent to Ramus and RCA 05/2003; Cutting balloon, PCI of Ramus, PCI/stent CFX 01/08; PTCA/taxus ADOLPH of CX, PTCA of the LAD and duiag 1 06/13; PTCA of the LAD intracoronary stent 03/2011; PTCA/ADOLPH to mid PDA 08/2012; In stent restenosis stent LM FFR @ [facility] 01/18 Premature ventricular contraction (Chronic) Hyperlipidemia (Chronic) Atherosclerotic heart disease of [place] coronary artery without angina pectoris (Chronic) PCI-Cutting balloon angioplasty-Mid LM for ISR 03/12/2018; FINANCIAL ASSISTANCE ADVISOR/stent to Ramus and RCA 05/2003; Cutting balloon, PCI of Ramus, PCI/stent CFX 01/08; PTCA/taxus ADOLPH of CX, PTCA of the LAD and duiag 1 06/13; PTCA of the LAD intracoronary stent 03/2011; PTCA/ADOLPH to mid PDA 08/2012; In stent restenosis stent LM FFR @ [facility] 01/18 Nonrheumatic mitral (valve) prolapse (Chronic) Aortocoronary bypass status (Chronic ~05/12/04) CABG x3- GREEN to LAD, SVG to RCA and Ramus Intermedius 05/12/04 Postsurgical percutaneous transluminal coronary angioplasty (PTCA) status (Chronic ~03/12/18) PCI-Cutting balloon angioplasty-Mid LM for ISR 03/12/2018; FINANCIAL ASSISTANCE ADVISOR/stent to Ramus and RCA 05/2003; Cutting balloon, PCI of Ramus, PCI/stent CFX 01/08; PTCA/taxus ADOLPH of CX, PTCA of the LAD and duiag 1 06/13; PTCA of the LAD intracoronary stent 03/2011; PTCA/ADOLPH to mid PDA 08/2012; In stent restenosis stent LM FFR @ [facility] 01/18 Pulmonary nodules (Chronic) Essential hypertension (Chronic) Lung nodule < 6cm on CT (Chronic) Tobacco abuse (Chronic) Surgical History: appendectomy, cholecystectomy, coronary bypass surgery, hysterectomy, - - bilateral carpal tunnel repair, bladder suspension, small bowel resection. 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: Anxiety, Depression DIRECTOR HEDIS History: No pertinent DIRECTOR HEDIS history - *Family History Paternal Family History: Family History (Last Reviewed 04/14/19 @ 17:40 by MT Gomez) Father Hypertension History Items: Cancer Offspring Family History: Family History (Last Reviewed 04/14/19 @ 17:40 by MT Gomez) Father Hypertension History Items: - Maternal Family History: Family History (Last Reviewed 04/14/19 @ 17:40 by MT Gomez) Father Hypertension History Items: Cancer Sibling Family History: Family History (Last Reviewed 04/14/19 @ 17:40 by MT Gomez) Father Hypertension Smoking Status: Current every day smoker Tobacco Use: Cigarettes Alcohol: None Drugs: None Review of Systems - Review of Systems General: Denies: Fever, Night Sweats, Fatigue HEENT: Denies: Vision Change Cardiovascular: Reports: Chest Discomfort. Denies: Shortness of Breath, Orthopnea, PND, Peripheral Edema, Palpitations, Lightheadedness, Dizziness, Near Syncope, Syncope Respiratory: Denies: Cough, Sputum Production, Hemoptysis Gastrointestinal: Denies: Hematemesis, Hematochezia, Melena Genitourinary: Denies: Dysuria, Hematuria Skin: Denies: Rash Neurological: Reports: Dizziness Psychiatric: Reports: Anxiety Endocrine: Denies: Heat Intolerance Hematologic/ Lymphatic: Denies: Anemia Subjectve: Pleasant lady in no apparent distress Objective: Vital Signs Temp Pulse Resp BP Pulse Ox 98.6 F 46 L 19 H 156/72 H 96 04/15/19 09:47 04/15/19 09:47 04/15/19 09:47 04/15/19 09:47 04/15/19 09:47 Oxygen Flow Rate (L/min) 2 Oxygen Delivery Method Room Air Weight: 144 lb 3.2 oz Body Mass Index (BMI) 24.7 Intake and Output for Last 24 Hours 04/13/19 04/14/19 04/15/19 23:59 23:59 23:59 Intake Total 1100 / 1100 432 / 432 Balance 1100 / 1100 432 / 432 General: Awake, Alert, Oriented x 3 HEENT: PERRL, EOMI, Sclera Non Icteric Neck: Supple, Good ROM, No Lymph Node Enlargement Lungs: Clear to auscultation Cardiovascular: Regular Rhythm, Normal S1, Normal S2, No Murmurs, No Rubs, No Gallops Vascular: No Carotid Bruits, Normal Femoral Pulses, Normal Radial Pulses, Normal Dorsalis Pedal Pulse, Normal Posterior Tibial Pulses Abdomen: Bowel Sounds Present, Soft, Non Tender, No HSM, No Organomegaly Extremities: No Cyanosis, No Clubbing, No edema Musculoskeletal: No Erythema Skin: No Rashes Lymphatic: No Lymph Node Enlargement Neurological: No Focal Motor or Sensory Deficit Psych/Mental Status: Appropriate 04/14/19 15:17: WBC 7.0, RBC 4.18 L, Hgb 11.4 L, Hct 35.3 L, MCV 84.4, MCH 27.3, MCHC 32.3, RDW 17.8 H, RDW Differential 54.9 H, Plt Count 239, MPV 10.6, Immature Gran % (Auto) 0.100, Neut % (Auto) 39.7 L, Lymph % (Auto) 50.4 H, [place] % (Auto) 8.1, Eos % (Auto) 1.4, Baso % (Auto) 0.3, Absolute Neuts (auto) 2.8, Total Counted Not Reportable 04/14/19 15:17: Sodium 132 L, Potassium 4.7, Chloride 102, Carbon Dioxide 24.0, Anion Gap 6, BUN 12, Creatinine 1.05 H, Est GFR (MDRD) Af Amer 68, Est GFR (MDRD) Non-Af 56 L, BUN/Creatinine Ratio 11.4, Glucose 85, Calcium 8.5, Troponin I < 0.015 04/14/19 18:25: Troponin I < 0.015 04/14/19 22:00: Troponin I < 0.015 04/15/19 05:47: Sodium 139, Potassium 4.9, Chloride 105, Carbon Dioxide 28.0, Anion Gap 6, BUN 14, Creatinine 1.03 H, Est GFR (MDRD) Af Amer 70, Est GFR (MDRD) Non-Af 58 L, BUN/Creatinine Ratio 13.6, Glucose 77, Calcium 8.9 Rhythm: EKG: Normal sinus rhythm with no acute changes Assessment/Plan 1. Chest pain-angina The above appears to be consistent with her stable angina. She has had multiple procedures in the past the last of which was exactly a year ago. Without any EKG changes and cardiac enzyme abnormalities my recommendation would be for us to obtain a pharmacologic myocardial perfusion stress test and depending on the findings further recommendations will then be made. I have explained the above to her she understands and agrees to proceed. She was noted to be bradycardic on her EKG and her metoprolol dose has been reduced to 12.5 mg twice a day. Perhaps upon discharge this can be further changed to a long-acting Toprol-XL 25 mg daily. Would also recommend addition of isosorbide. 2. Hypertension Her blood pressure is under good control on the current medical therapy no changes will be made. 3. Left ventricular systolic dysfunction She did undergo a catheterization in March 2018 and at that time she did have left ventricular systolic dysfunction. It appears to have improved. It would be prudent to reevaluate the above with an echocardiogram to see whether there is stabilization. 4. Risk factor modification We will continue with aggressive risk factor modification with lipid lowering, smoking cessation and emphasis on exercise and diet. Thank you for allowing me to participate in the care of your patient. Please don't hesitate to call if any issues arise
--- NOTE | 2019-04-15 10:17 | CON.PCM_ITS ---
Reason for Consult Date of Consultation: 04/15/19 Reason for Consultation: Chest discomfort History of Present Illness: The patient is a 64 year old F who presents emergency room due to chest pain. She reports she was cleaning her house when around 11 AM this morning she developed sudden burning chest pain and pressure in the center of her chest which radiated to her left shoulder. She describes associated diaphoresis, shortness of breath and dizziness. She states she took a nitro and pain was somewhat relieved so she continued cleaning. Her chest pain then worsened and she decided to come to the emergency room for further evaluation. She has a past medical history of CAD status post CABG and PCI, COPD, hypertension, hyperlipidemia, nonrheumatic mitral valve prolapse, chronic kidney disease stage II-III, tobacco dependence, depression, anxiety, GERD, neurogenic bladder. She has had multiple cardiac catheterizations in the past including coronary artery bypass surgery as well. Her last catheterization demonstrated the following: Left ventricle with an LVEF of 20-25%; left main coronary artery with in-stent restenosis of 75-80%; LAD with no significant disease reported; LCx with 100% stenosis; RCA with 100% stenosis; intermediate ramus with no significant disease noted; GREEN to the LAD patent; SVG to the third OM patent; SVG to the right PDA patent; mitral valve insufficiency of grade 2-3; aortic root dilated; status post subsequent PTCA to the mid left main coronary artery. This was in March 2018. An echocardiogram that was performed in May 2018 demonstrated an ejection fraction of 55% with segmental wall motion abnormalities present. She is currently pain-free. Has denied any palpitations or paroxysmal nocturnal dyspnea. Past Medical History Allergies/Adverse Reactions: Allergies Iodinated Contrast- Oral and IV Dye [Iodinated Contrast Media - IV Dye] Allergy (Verified 04/14/19 15:10) Other tetracycline [Tetracycline] Allergy (Verified 04/14/19 15:10) Hives pravastatin Adverse Reaction (Intermediate, Verified 04/14/19 15:10) Upset Stomach atorvastatin [From Lipitor] Adverse Reaction (Verified 04/14/19 15:10) myalgia Home Medications: Ambulatory Orders Medication Instructions Recorded Aspirin [Aspirin, Baby] 81 mg PO DAILY@0800 02/04/16 Citalopram [Celexa] 40 mg PO QHS 02/04/16 Omeprazole [Prilosec] 20 mg PO DAILY 02/04/16 busPIRone [Buspar] 10 mg PO TID 02/04/16 Clopidogrel Bisulfate [Plavix] 75 mg PO DAILY 01/27/18 cycloBENZAPRine HCl [Flexeril] 10 mg PO TID PRN PRN 03/12/18 traZODone [Desyrel] 50 mg PO QHS 03/12/18 Lisinopril [Zestril] 2.5 mg PO DAILY #90 tab 03/14/18 meloxicam 15 mg tablet 15 mg PO DAILY 05/17/18 nitroglycerin 0.4 mg sublingual 0.4 mg SUBLINGUAL Q5M PRN #25 tab 08/17/18 tablet primidone 50 mg tablet 50 mg PO QHS 30 Days #30 tab 08/17/18 Clonazepam [Klonopin] 2 mg PO TID 12/05/18 Azithromycin 1 tab PO DAILY 03/20/19 metoprolol tartrate 25 mg tablet 12.5 mg PO BID #30 tab 04/13/19 HYDROmorphone tablet [Dilaudid] 2 mg PO TID 04/14/19 Past Medical History (Chronic Problems): Chronic Problems (Last Updated 04/25/18 @ 17:11 by Nohemy Cantu) Urinary retention (Chronic) Neurogenic bladder (Chronic) Claudication of both lower extremities (Chronic) Presence of stent in coronary artery (Chronic) TREASURY DIRECTOR/stent to Ramus and RCA 05/2003; Cutting balloon, PCI of Ramus, PCI/stent CFX 01/08; PTCA/taxus ADOLPH of CX, PTCA of the LAD and duiag 1 06/13; PTCA of the LAD intracoronary stent 03/2011; PTCA/ADOLPH to mid PDA 08/2012; In stent restenosis stent LM FFR @ [facility] 01/18 Premature ventricular contraction (Chronic) Hyperlipidemia (Chronic) Atherosclerotic heart disease of [place] coronary artery without angina pectoris (Chronic) PCI-Cutting balloon angioplasty-Mid LM for ISR 03/12/2018; TREASURY DIRECTOR/stent to Ramus and RCA 05/2003; Cutting balloon, PCI of Ramus, PCI/stent CFX 01/08; PTCA/taxus ADOLPH of CX, PTCA of the LAD and duiag 1 06/13; PTCA of the LAD intracoronary stent 03/2011; PTCA/ADOLPH to mid PDA 08/2012; In stent restenosis stent LM FFR @ [facility] 01/18 Nonrheumatic mitral (valve) prolapse (Chronic) Aortocoronary bypass status (Chronic ~05/12/04) CABG x3- GREEN to LAD, SVG to RCA and Ramus Intermedius 05/12/04 Postsurgical percutaneous transluminal coronary angioplasty (PTCA) status (Chronic ~03/12/18) PCI-Cutting balloon angioplasty-Mid LM for ISR 03/12/2018; TREASURY DIRECTOR/stent to Ramus and RCA 05/2003; Cutting balloon, PCI of Ramus, PCI/stent CFX 01/08; PTCA/taxus ADOLPH of CX, PTCA of the LAD and duiag 1 06/13; PTCA of the LAD int racoronary stent 03/2011; PTCA/ADOLPH to mid PDA 08/2012; In stent restenosis stent LM FFR @ [facility] 01/18 Pulmonary nodules (Chronic) Essential hypertension (Chronic) Lung nodule < 6cm on CT (Chronic) Tobacco abuse (Chronic) Surgical History: appendectomy, cholecystectomy, coronary bypass surgery, hysterectomy, - - bilateral carpal tunnel repair, bladder suspension, small bow el resection. 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 - *Family History Paternal Family History: Family History (Last Reviewed 04/14/19 @ 17:40 by MT Gomez) Father Hypertension History Items: Cancer Offspring Family History: Family History (Last Reviewed 04/14/19 @ 17:40 by MT Gomez) Father Hypertension History Items: - Maternal Family History: Family History (Last Reviewed 04/14/19 @ 17:40 by MT Gomez) Father Hypertension History Items: Cancer Sibling Family History: Family History (Last Reviewed 04/14/19 @ 17:40 by MT Gomez) Father Hypertension Smoking Status: Current every day smoker Tobacco Use: Cigarettes Alcohol: None Drugs: None Review of Systems - Review of Systems General: Denies: Fever, Night Sweats, Fatigue HEENT: Denies: Vision Change Cardiovascular: Reports: Chest Discomfort. Denies: Shortness of Breath, Orthopnea, PND, Peripheral Edema, Palpitations, Lightheadedness, Dizziness, Near Syncope, Syncope Respiratory: Denies: Cough, Sputum Production, Hemoptysis Gastrointestinal: Denies: Hematemesis, Hematochezia, Melena Genitourinary: Denies: Dysuria, Hematuria Skin: Denies: Rash Neurological: Reports: Dizziness Psychiatric: Reports: Anxiety Endocrine: Denies: Heat Intolerance Hematologic/ Lymphatic: Denies: Anemia Subjectve: Pleasant lady in no apparent distress Objective: Vital Signs Temp Pulse Resp BP Pulse Ox 98.6 F 46 L 19 H 156/72 H 96 04/15/19 09:47 04/15/19 09:47 04/15/19 09:47 04/15/19 09:47 04/15/19 09:47 Oxygen Flow Rate (L/min) 2 Oxygen Delivery Method Room Air Weight: 144 lb 3.2 oz Body Mass Index (BMI) 24.7 Intake and Output for Last 24 Hours 04/13/19 04/14/19 04/15/19 23:59 23:59 23:59 Intake Total 1100 / 1100 432 / 432 Balance 1100 / 1100 432 / 432 General: Awake, Alert, Oriented x 3 HEENT: PERRL, EOMI, Sclera Non Icteric Neck: Supple, Good ROM, No Lymph Node Enlargement Lungs: Clear to auscultation Cardiovascular: Regular Rhythm, Normal S1, Normal S2, No Murmurs, No Rubs, No Gallops Vascular: No Carotid Bruits, Normal Femoral Pulses, Normal Radial Pulses, Normal Dorsalis Pedal Pulse, Normal Posterior Tibial Pulses Abdomen: Bowel Sounds Present, Soft, Non Tender, No HSM, No Organomegaly Extremities: No Cyanosis, No Clubbing, No edema Musculoskeletal: No Erythema Skin: No Rashes Lymphatic: No Lymph Node Enlargement Neurological: No Focal Motor or Sensory Deficit Psych/Mental Status: Appropriate 04/14/19 15:17: WBC 7.0, RBC 4.18 L, Hgb 11.4 L, Hct 35.3 L, MCV 84.4, MCH 27.3, MCHC 32.3, RDW 17.8 H, RDW Differential 54.9 H, Plt Count 239, MPV 10.6, Immature Gran % (Auto) 0.100, Neut % (Auto) 39.7 L, Lymph % (Auto) 50.4 H, [place] % (Auto) 8.1, Eos % (Auto) 1.4, Baso % (Auto) 0.3, Absolute Neuts (auto) 2.8, Total Counted Not Reportable 04/14/19 15:17: Sodium 132 L, Potassium 4.7, Chloride 102, Carbon Dioxide 24.0, Anion Gap 6, BUN 12, Creatinine 1.05 H, Est GFR (MDRD) Af Amer 68, Est GFR (MDRD) Non-Af 56 L, BUN/Creatinine Ratio 11.4, Glucose 85, Calcium 8.5, Troponin I < 0.015 04/14/19 18:25: Troponin I < 0.015 04/14/19 22:00: Troponin I < 0.015 04/15/19 05:47: Sodium 139, Potassium 4.9, Chloride 105, Carbon Dioxide 28.0, Anion Gap 6, BUN 14, Creatinine 1.03 H, Est GFR (MDRD) Af Amer 70, Est GFR (MDRD) Non-Af 58 L, BUN/Creatinine Ratio 13.6, Glucose 77, Calcium 8.9 Rhythm: EKG: Normal sinus rhythm with no acute changes Assessment/Plan 1. Chest pain-angina * The above appears to be consistent with her stable angina. She has had multiple procedures in the past the last of which was exactly a year ago. Without any EKG changes and cardiac enzyme abnormalities my recommendation would be for us to obtain a pharmacologic myocardial perfusion stress test and depending on the findings further recommendations will then be made. I have explained the above to her she understands and agrees to proceed. * She was noted to be bradycardic on her EKG and her metoprolol dose has been reduced to 12.5 mg twice a day. Perhaps upon discharge this can be further changed to a long-acting Toprol-XL 25 mg daily. * Would also recommend addition of isosorbide. 2. Hypertension * Her blood pressure is under good control on the current medical therapy no changes will be made. * 3. Left ventricular systolic dysfunction * She did undergo a catheterization in March 2018 and at that time she did have left ventricular systolic dysfunction. It appears to have improved. It would be prudent to reevaluate the above with an echocardiogram to see whether there is stabilization. * 4. Risk factor modification * We will continue with aggressive risk factor modification with lipid lowering, smoking cessation and emphasis on exercise and diet. * * Thank you for allowing me to participate in the care of your patient. Please don't hesitate to call if any issues arise
--- NOTE | 2019-04-15 10:21 | ECHOCS_ITS ---
Version 2 Reason For Study: Chest Pain Procedure This was a 2D Doppler, Color Flow transthoracic echocardiogram. The study was technically difficult. Contrast injection was performed. Exam performed in department. Left Ventricle Normal LV size. Left ventricular systolic function is normal. The estimated ejection fraction is 65 %. Stage 2 diastolic dysfunction. No regional wall motion abnormalities noted. Right Ventricle Normal RV size. Normal systolic function. Atria Normal left atrium. Normal right atrium. Mitral Valve There is mild mitral annular calcification. Mild diffuse mitral valve thickening. Mild mitral valve prolapse. Tricuspid Valve Normal tricuspid valve. Aortic Valve Normal aortic valve. Trisinus/trileaflet aortic valve. Pulmonic Valve Normal pulmonic valve. Great Vessels Normal aortic root. The pulmonary artery is normal size. Normal inferior vena cava. Pericardium/Pleural No pericardial effusion. Medication Diluted definity 4ml given slow IV push to enhance endocardial definition. MMode/2D Measurements & Calculations LVIDd: 4.5 cm IVSd: 1.1 cm Ao root diam: 3.1 cm LVIDs: 3.5 cm LVPWd: 1.2 cm FS: 21.3 % LAV(MOD-bp): 38.2 ml LVAd ap4: 27.7 cm2 SV(MOD-sp4): 49.6 ml LAV(MOD-bp) Indexed: 22.5 ml/m2 EDV(MOD-sp4): 89.1 ml LAV(MOD-sp2): 38.1 ml EDV(sp4-el): 92.8 ml LAV(MOD-sp4): 37.2 ml LVAs ap4: 16.5 cm2 ESV(MOD-sp4): 39.5 ml ESV(sp4-el): 39.0 ml EF(MOD-sp4): 55.7 % EF(sp4-el): 58.0 % SV(sp4-el): 53.8 ml LA A4 area: 15.9 cm2 LA dimension(2D): 4.0 cm RA A4 area: 13.1 cm2 Time Measurements MV dec time: 0.67 sec Doppler Measurements & Calculations MV E max talib: 122.9 cm/sec Lat Peak E' Talib: 5.4 cm/sec Med Peak E' [place]: 3.8 cm/sec MV A max talib: 133.2 cm/sec E/E' lat: 22.7 E/E' med: 32.3 MV E/A: 0.92 MV V2 max: 173.3 cm/sec MV P1/2t max talib: 165.6 cm/sec Ao V2 max: 188.6 cm/sec MV max P.0 mmHg MV P1/2t: 204.8 msec Ao max P.2 mmHg MV V2 mean: 100.7 cm/sec MV dec slope: 236.9 cm/sec2 Ao V2 mean: 109.5 cm/sec MV mean P.7 mmHg MVA(P1/2t): 1.1 cm2 Ao mean P.1 mmHg MV V2 VTI: 88.6 cm Ao V2 VTI: 40.5 cm LV V1 max: 134.9 cm/sec MR max talib: 500.4 cm/sec PA V2 max: 113.6 cm/sec LV V1 max P.3 mmHg MR max P.2 mmHg LV V1 mean P.2 mmHg LV V1 mean: 79.1 cm/sec LV V1 VTI: 29.7 cm Interpretation Summary Normal LV size. Left ventricular systolic function is normal. The estimated ejection fraction is 65 %. Stage 2 diastolic dysfunction. Mild mitral valve prolapse. Contrast injection was performed. Ordering Physician: Larry Burnham Referring Physician: Sen Odom Performed By: Hermelindo Javier RCS
--- NOTE | 2019-04-15 12:16 | PCM.PROGNOTE ---
<Cynthia Moon - Last Filed: 04/15/19 12:19> Subjective: Patient seen and examined. Has not had further significant chest pressure although she reports she has not been moving around much. Plan for stress test in a.m. - Physical Exam General: Alert, Oriented x3, Cooperative HEENT: Atraumatic, PERRLA, EOMI, Normocephalic Neck: Supple, No JVD, Negative Carotid Bruits Lungs: Clear to auscultation, Normal air movement Cardiovascular: Regular rate, Regular Rhythm, Normal S1, Normal S2, No murmurs Abdomen: Bowel Sounds Present, Soft, Non Tender, Non-Distended Extremities: No clubbing, No cyanosis, No edema, Capillary Refill Less than 3 Seconds Skin: No rashes, No breakdown Musculoskeletal: No Tenderness to Palpation of Joints or Extremities Neurological: Cranial nerves II-XII grossly intact, Neuro grossly intact Psych/Mental Status: Normal Affect, Appropriate Vital Signs Temp Pulse Resp BP Pulse Ox 98.6 F 46 L 19 H 156/72 H 96 04/15/19 09:47 04/15/19 10:00 04/15/19 09:47 04/15/19 09:47 04/15/19 09:47 Oxygen Flow Rate (L/min) 2 Oxygen Delivery Method Room Air Weight: 144 lb 3.2 oz Body Mass Index (BMI) 24.7 Intake and Output for Last 24 Hours 04/13/19 04/14/19 04/15/19 23:59 23:59 23:59 Intake Total 1100 / 1100 2009 Balance 1100 / 1100 2009 Laboratory Tests Past 24 Hrs 04/14/19 04/14/19 04/14/19 15:17 15:17 18:25 WBC 7.0 RBC 4.18 L Hgb 11.4 L Hct 35.3 L MCV 84.4 MCH 27.3 MCHC 32.3 RDW 17.8 H RDW Differential 54.9 H Plt Count 239 MPV 10.6 Immature Gran % (Auto) 0.100 Neut % (Auto) 39.7 L Lymph % (Auto) 50.4 H [place] % (Auto) 8.1 Eos % (Auto) 1.4 Baso % (Auto) 0.3 Absolute Neuts (auto) 2.8 Absolute Lymphs (auto) 3.54 Total Counted Not Reportable Sodium 132 L Potassium 4.7 Chloride 102 Carbon Dioxide 24.0 Anion Gap 6 BUN 12 Creatinine 1.05 H Estim Creat Clear Calc 47.97 Est GFR (MDRD) Af Amer 68 Est GFR (MDRD) Non-Af 56 L BUN/Creatinine Ratio 11.4 Glucose 85 Calcium 8.5 Troponin I < 0.015 < 0.015 04/14/19 04/15/19 22:00 05:47 WBC RBC Hgb Hct MCV MCH MCHC RDW RDW Differential Plt Count MPV Immature Gran % (Auto) Neut % (Auto) Lymph % (Auto) [place] % (Auto) Eos % (Auto) Baso % (Auto) Absolute Neuts (auto) Absolute Lymphs (auto) Total Counted Sodium 139 Potassium 4.9 Chloride 105 Carbon Dioxide 28.0 Anion Gap 6 BUN 14 Creatinine 1.03 H Estim Creat Clear Calc 48.90 Est GFR (MDRD) Af Amer 70 Est GFR (MDRD) Non-Af 58 L BUN/Creatinine Ratio 13.6 Glucose 77 Calcium 8.9 Troponin I < 0.015 Medical Necessity - Tobacco Use Smoking Status: Current every day smoker Tobacco Use: Cigarettes Assessment/Plan All Active Problems (Last Updated 04/25/18 @ 17:11 by Nohemy Cantu) Pericardial effusion (Resolved) 1. Angina with history of CAD status post CABG/PCI-EKG without ST-T changes. Troponin negative x3. Chest x-ray unremarkable. Patient follows with Dr. Castro. Patient had cardiac catheterization 03/12/2018 with PCI to mid left main in-stent restenosis. Cardiology consulted. Continue aspirin, Plavix, metoprolol. Plan for stress test in a.m. Isosorbide 30 mg daily added. Home metoprolol regimen decreased to 12.5 mg p.o. twice daily due to bradycardia. 2. Chronic COPD- no acute exacerbation. 3. Hypertension-stable, continue home lisinopril, metoprolol regimen. 4. Hyperlipidemia-reported allergy to statin. 5. Nonrheumatic mitral valve prolapse 6. Chronic kidney disease stage II-III-at baseline, trend BMP. 7. Tobacco dependence-encouraged smoking cessation. Nicotine replacement patch if desired. 8. Depression/anxiety-continue trazodone, citalopram, buspirone regimen. 9. GERD-continue PPI. 10. Neurogenic bladder/urinary retention-status post InterStim lead placement with Dr. Hammer 03/20/19. DVT prophylaxis-Lovenox subcu This patient was seen by MT Gomez under the supervision of Dr. Adkins. <KeniadrewPhuong - Last Filed: 04/15/19 12:28> - Physical Exam Vital Signs Temp Pulse Resp BP Pulse Ox 98.6 F 46 L 19 H 156/72 H 96 04/15/19 09:47 04/15/19 10:00 04/15/19 09:47 04/15/19 09:47 04/15/19 09:47 Oxygen Flow Rate (L/min) 2 Oxygen Delivery Method Room Air Weight: 144 lb 3.2 oz Body Mass Index (BMI) 24.7 Intake and Output for Last 24 Hours 04/13/19 04/14/19 04/15/19 23:59 23:59 23:59 Intake Total 1100 / 1100 2009 Balance 1100 / 1100 2009 Laboratory Tests Past 24 Hrs 04/14/19 04/14/19 04/14/19 15:17 15:17 18:25 WBC 7.0 RBC 4.18 L Hgb 11.4 L Hct 35.3 L MCV 84.4 MCH 27.3 MCHC 32.3 RDW 17.8 H RDW Differential 54.9 H Plt Count 239 MPV 10.6 Immature Gran % (Auto) 0.100 Neut % (Auto) 39.7 L Lymph % (Auto) 50.4 H [place] % (Auto) 8.1 Eos % (Auto) 1.4 Baso % (Auto) 0.3 Absolute Neuts (auto) 2.8 Absolute Lymphs (auto) 3.54 Total Counted Not Reportable Sodium 132 L Potassium 4.7 Chloride 102 Carbon Dioxide 24.0 Anion Gap 6 BUN 12 Creatinine 1.05 H Estim Creat Clear Calc 47.97 Est GFR (MDRD) Af Amer 68 Est GFR (MDRD) Non-Af 56 L BUN/Creatinine Ratio 11.4 Glucose 85 Calcium 8.5 Troponin I < 0.015 < 0.015 04/14/19 04/15/19 22:00 05:47 WBC RBC Hgb Hct MCV MCH MCHC RDW RDW Differential Plt Count MPV Immature Gran % (Auto) Neut % (Auto) Lymph % (Auto) [place] % (Auto) Eos % (Auto) Baso % (Auto) Absolute Neuts (auto) Absolute Lymphs (auto) Total Counted Sodium 139 Potassium 4.9 Chloride 105 Carbon Dioxide 28.0 Anion Gap 6 BUN 14 Creatinine 1.03 H Estim Creat Clear Calc 48.90 Est GFR (MDRD) Af Amer 70 Est GFR (MDRD) Non-Af 58 L BUN/Creatinine Ratio 13.6 Glucose 77 Calcium 8.9 Troponin I < 0.015 Assessment/Plan Patient seen by MT Gomez under my supervision Patient was admitted with a complaint of chest pain which occurred as she was housecleaning. By sublingual nitro. She came into the ED because chest pain was persistent. She has an extensive history of coronary artery disease including cardiac catheterization in March 2018 for which she had a PCI and stent placement in the left main artery due to in-stent restenosis. On account of her extensive cardiac history, cardiology was consulted. Troponins x3 were negative and EKG showed no acute ST changes. She currently on aspirin and Plavix as well as metoprolol. Patient seen and examined this morning. Chest pain has resolved. She denies any palpitations lightheaded, diarrhea or vomiting. Review of systems otherwise negative. Labs and vitals reviewed. o/e: Vital Signs Height 5 ft 4 in Weight: 144 lb 3.2 oz Weight in Pounds 144.2 lbs BMI 26.6 Pulse Ox 96 Temperature 98.6 F Pulse Rate 46 Respiratory Rate 19 Blood Pressure 156/72 Blood Pressure Position Sitting General: Alert, Oriented x3, Cooperative HEENT: Atraumatic, PERRLA, EOMI, Normocephalic Neck: Supple, No JVD, Negative Carotid Bruits Lungs: Clear to auscultation, Normal air movement Cardiovascular: Regular rate, Regular Rhythm, Normal S1, Normal S2, No murmurs Abdomen: Bowel Sounds Present, Soft, Non Tender, Non-Distended Extremities: No clubbing, No cyanosis, No edema, Capillary Refill Less than 3 Seconds Skin: No rashes, No breakdown Musculoskeletal: No Tenderness to Palpation of Joints or Extremities Neurological: Cranial nerves II-XII grossly intact, Neuro grossly intact Psych/Mental Status: Normal Affect, Appropriate Patient was noted to be bradycardic today. Metoprolol has been decreased to 12.5 mg twice daily per cardiology. She is to have a stress test tomorrow. Imdur added per cardiology. Patient counseled to quit smoking. Rest of management as per Cynthia Moon BOOMBOAT OPERATOR-C's note which I reviewed and endorsed. Code Visit OBSV E&M: 14392 Subsequent observation care L3
[2019-04-15] MEDS: cycloBENZAPRine HCl 10 MG Tablet PO (12:20)
[2019-04-15] MEDS: Primidone 50 MG Tablet PO (21:46)
[2019-04-15] MEDS: traZODone 50 MG Tablet PO (21:47)
[2019-04-16] VITALS (7 sets, daily range): BP systolic 143–158; BP diastolic 58–100; PULSE 43–50; RESP 16–18; TEMP 36.3–37.1; O2SAT 94–100
[2019-04-16] MEDS: 0.9% Normal Saline 1,000 ML 100 ML IV (00:58)
[2019-04-16] MEDS: clonazePAM 1 MG Tablet 2 MG PO (05:09)
[2019-04-16] MEDS: HYDROmorphone 2 MG TABLET PO (05:09)
[2019-04-16] MEDS: Lisinopril 2.5 MG Tablet PO (05:11)
[2019-04-16] MEDS: Aspirin 81 MG TAB.CHEW PO (05:11)
[2019-04-16] MEDS: busPIRone 5 MG Tablet 10 MG PO (05:18)
--- NOTE | 2019-04-16 05:55 | EKG12_ITS ---
Test Reason : AM EKG Blood Pressure : / mmHG Vent. Rate : 043 BPM Atrial Rate : 043 BPM P-R Int : 172 ms QRS Dur : 100 ms QT Int : 490 ms P-R-T Axes : 003 018 042 degrees QTc Int : 414 ms Marked sinus bradycardia Poor R- Wave Progression Abnormal ECG Confirmed by DREAD CHOI, SABI ([id number]), supervising film or videotape editor KEAGAN VILLARREAL ([id number]) on 04/18/2019 11:55:15 AM Referred By: MIGUEL ÁNGEL Confirmed By:SABI CANADA MD
[2019-04-16 06:04] LABS: Absolute Lymphocyte Count 2.71 X10^3/ul (0.83-4.51); Basophil# 0.02 X10^3/uL; Basophil% 0.4 % (0-1); Eosinophil# 0.11 X10^3/uL; Hematocrit 33.8 % (37-47); Hemoglobin 10.8 g/dl (12.0-15.0); International Normalized Ratio 1.1; Lymphocyte # 2.71 X10^3/ul (4.0); Lymphocyte % 50.3 % (19-41); Mean Corpuscular Volume 84.5 fL (81-99); Monocyte# 0.52 X10^3/uL; Monocyte% 9.6 % (0-10); Neutrophil # 2.02 X10^3/uL (2.7-7.7); Neutrophil % 37.5 % (47-70); Platelet Count 165 K/mm3 (150-450); Prothrombin Time (Protime)PT. 14.3 SECONDS (11.7-14.9); RBC Distribution Width CV 17.7 % (11.6-14.6); RBC Distribution Width SD 54.5 fl (35.1-43.9); White Blood Count 5.4 K/mm3 (4.4-11.0)
[2019-04-16 06:05] LABS: Partial Thromboplast Time 36.1 Seconds (24.1-36.2)
[2019-04-16 06:06] LABS: POSITIVE COUNT NO; POSITIVE DIFFERENTIAL NO; POSITIVE MORPHOLOGY NO
--- NOTE | 2019-04-16 06:32 | NURSING ---
PT to stress lab via w/c.
[2019-04-16 06:35] LABS: Anion Gap 8 (5-15); BUN 20 mg/dL (7-18); Calcium,Total 8.7 mg/dL (8.5-10.1); Chloride 106 mmol/L (98-107); Creatinine, Serum 1.05 mg/dL (0.55-1.02); EST Glomerular Filtration Rate 56 mL/min (>60); Est Glom Filt Rate - Afr Amer 68 mL/min (>60); Estimated Creatinine Clearance 47.97 ml/min; Glucose 82 mg/dL (74-106); Potassium 5.3 mmol/L (3.5-5.1); Sodium Level 140 mmol/L (136-145)
[2019-04-16] MEDS: Clopidogrel Bisulfate 75 MG Tablet PO (09:03)
[2019-04-16] MEDS: Meloxicam 15 MG Tablet PO (09:03)
[2019-04-16] MEDS: Isosorbide Mononitrate 30 MG Tablet PO (09:03)
[2019-04-16] MEDS: Pantoprazole Sodium 20 MG Tablet PO (09:04)
--- NOTE | 2019-04-16 09:32 | STRESSREP ---
Stress Test Report .64-year-old lady with a history of coronary artery disease. Stress protocol. Resting EKG demonstrates sinus bradycardia with a rate of 39 bpm normal intervals are noted resting blood pressures 138/82 mmHg. 0.4 mg of regadenoson was infused per usual protocol followed by rapid intravenous saline flush injection continuous EKG monitoring was performed. The patient maintained sinus rhythm throughout the recording. The maximum heart rate attained was 91 bpm which was 57% of maximum predicted heart rate the maximum workload was 1 metabolic equivalent. The resting blood pressures 138/82 final blood pressures 110/68. Nonspecific ST-T wave changes were noted. Myocardial perfusion protocol. 11.2 mCi of technetium 99m sestamibi was injected at rest. 0.4 mg of regadenoson was infused per usual protocol peak infusion 33.3 mCi of technetium 99m sestamibi was injected stress images were obtained stress and rest images were reconstructed and compared in the short axis vertical long horizontal long axis. Gated images were also obtained per Perfusion SPECT analysis: Review of the stress images demonstrate normal uptake of tracer noted in all areas of the myocardium. The resting images similarly demonstrate normal uptake of tracer noted in all areas of the myocardium. A very small portion of the anterolateral wall on the stress and rest images has a mild reduction of perfusion which appears to be secondary to breast wall attenuation. Gated SPECT analysis: The gated ejection fraction is noted to be 74%. Conclusion: Normal pharmacologic myocardial perfusion stress test. Preserved ejection fraction..
--- NOTE | 2019-04-16 11:21 | DCINST_ITS ---
You will use the following diet at home:: Cardiac Discharge Activity: Return to Normal Activity Call your doctor if you observe: Shortness of breath, Dizziness, Fainting spells, Chest pain Allergies/Adverse Reactions: Allergies Iodinated Contrast- Oral and IV Dye [Iodinated Contrast Media - IV Dye] Allergy (Verified 04/14/19 15:10) Other tetracycline [Tetracycline] Allergy (Verified 04/14/19 15:10) Hives pravastatin Adverse Reaction (Intermediate, Verified 04/14/19 15:10) Upset Stomach atorvastatin [From Lipitor] Adverse Reaction (Verified 04/14/19 15:10) myalgia Medications to take at Discharge Aspirin [Aspirin, Baby] 81 mg PO DAILY@0800 02/04/16 Citalopram [Celexa] 40 mg PO QHS 02/04/16 Omeprazole [Prilosec] 20 mg PO DAILY 02/04/16 busPIRone [Buspar] 10 mg PO TID 02/04/16 Clopidogrel Bisulfate [Plavix] 75 mg PO DAILY 01/27/18 cycloBENZAPRine HCl [Flexeril] 10 mg PO TID PRN PRN 03/12/18 traZODone [Desyrel] 50 mg PO QHS 03/12/18 Lisinopril [Zestril] 2.5 mg PO DAILY #90 tab 03/14/18 meloxicam 15 mg tablet 15 mg PO DAILY 05/17/18 nitroglycerin 0.4 mg sublingual tablet 0.4 mg SUBLINGUAL Q5M PRN #25 tab 08/17/18 primidone 50 mg tablet 50 mg PO QHS 30 Days #30 tab 08/17/18 Clonazepam [Klonopin] 2 mg PO TID 12/05/18 Azithromycin 1 tab PO DAILY 03/20/19 HYDROmorphone tablet [Dilaudid] 2 mg PO TID 04/14/19 Isosorbide Mononitrate [Imdur] 30 mg PO DAILY #30 tablet 04/16/19 Metoprolol Succinate [Toprol Xl] 12.5 mg PO DAILY #30 tab.er.24h 04/16/19 The following prescriptions were given: Isosorbide Mononitrate [Imdur] 30 mg PO DAILY #30 tablet Metoprolol Succinate [Toprol Xl] 12.5 mg PO DAILY #30 tab.er.24h Primary Care Physician: Phani Odom MD [Primary Care Provider] - Please follow up with your Primary Care Physician in: 1 Week Test Results: Test results from this visit will be discussed in further detail at your follow- up appointment, if applicable. Please Follow Up With: Stephon Castro MD When: 1-2 Weeks, may see COMPUTER PATTERNMAKER/PA Proposed Discharge Date: 04/16/19
--- NOTE | 2019-04-16 11:22 | PCM.DC.SUM ---
<Cynthia Moon - Last Filed: 04/16/19 11:28> Discharge Date and Diagnosis Date of Admission: 04/14/19 Date of Discharge: 04/16/19 - Primary Discharge Diagnosis 1. Chest pain with history of CAD status post CABG/PCI-ACS ruled out 2. Chronic COPD 3. Hypertension 4. Hyperlipidemia 5. Nonrheumatic mitral valve prolapse 6. Chronic kidney disease stage II-III 7. Tobacco dependence 8. Depression/anxiety 9. GERD 10. Neurogenic bladder/urinary retention-status post InterStim lead placement with Dr. Hammer 03/20/19. - Secondary Discharge Diagnosis Chronic Problems (Last Updated 04/25/18 @ 17:11 by Nohemy Cantu) Urinary retention (Chronic) Neurogenic bladder (Chronic) Claudication of both lower extremities (Chronic) Presence of stent in coronary artery (Chronic) [employer] PRECINCT/stent to Ramus and RCA 05/2003; Cutting balloon, PCI of Ramus, PCI/stent CFX 01/08; PTCA/taxus ADOLPH of CX, PTCA of the LAD and duiag 1 06/13; PTCA of the LAD intracoronary stent 03/2011; PTCA/ADOLPH to mid PDA 08/2012; In stent restenosis stent LM FFR @ [facility] 01/18 Premature ventricular contraction (Chronic) Hyperlipidemia (Chronic) Atherosclerotic heart disease of [place] coronary artery without angina pectoris (Chronic) PCI-Cutting balloon angioplasty-Mid LM for ISR 03/12/2018; [employer] PRECINCT/stent to Ramus and RCA 05/2003; Cutting balloon, PCI of Ramus, PCI/stent CFX 01/08; PTCA/taxus ADOLPH of CX, PTCA of the LAD and duiag 1 06/13; PTCA of the LAD intracoronary stent 03/2011; PTCA/ADOLPH to mid PDA 08/2012; In stent restenosis stent LM FFR @ [facility] 01/18 Nonrheumatic mitral (valve) prolapse (Chronic) Aortocoronary bypass status (Chronic ~05/12/04) CABG x3- GREEN to LAD, SVG to RCA and Ramus Intermedius 05/12/04 Postsurgical percutaneous transluminal coronary angioplasty (PTCA) status (Chronic ~03/12/18) PCI-Cutting balloon angioplasty-Mid LM for ISR 03/12/2018; [employer] PRECINCT/stent to Ramus and RCA 05/2003; Cutting balloon, PCI of Ramus, PCI/stent CFX 01/08; PTCA/taxus ADOLPH of CX, PTCA of the LAD and duiag 1 06/13; PTCA of the LAD intracoronary stent 03/2011; PTCA/ADOLPH to mid PDA 08/2012; In stent restenosis stent LM FFR @ [facility] 01/18 Pulmonary nodules (Chronic) Essential hypertension (Chronic) Lung nodule < 6cm on CT (Chronic) Tobacco abuse (Chronic) Hospital Course and Treatment Imaging Results: Diagnostic Data Chest X-Ray 04/14/19 15:33 IMPRESSION: 1. No acute cardiopulmonary process. Electronically Signed: Luis Solomon MD at 16:17 EDT , Service support , Dr. Burnham- Cardiology Operations: None Procedures: Stress test Summary of Care Provided: The patient is a 64 year old F admitted 04/14/2019 due to chest pain. 1. Chest pain with history of CAD status post CABG/PCI-EKG without ST-T changes. Troponin negative x3. Chest x-ray unremarkable. Patient follows with Dr. Castro. Patient had cardiac catheterization 03/12/2018 with PCI to mid left main in-stent restenosis. Cardiology consulted. Continue aspirin, Plavix, beta-johny. Isosorbide 30 mg daily added. Patient underwent nuclear stress test which was negative for ischemia. ACS ruled out. Echocardiogram shows an EF of 65%, stage II diastolic dysfunction, mild mitral valve prolapse. Patient has chronic bradycardia home beta-johny regimen reduced to Toprol XL 12.5 mg daily. Follow-up with primary care provider in 1 week. Follow-up with cardiology in 1 to 2 weeks. 2. Chronic COPD- no acute exacerbation. 3. Hypertension-stable, continue home lisinopril, metoprolol regimen. 4. Hyperlipidemia-reported allergy to statin. 5. Nonrheumatic mitral valve prolapse 6. 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 7. Tobacco dependence-encouraged smoking cessation. 8. Depression/anxiety-continue trazodone, citalopram, buspirone regimen. 9. GERD-continue PPI. 10. Neurogenic bladder/urinary retention-status post InterStim lead placement with Dr. Hammer 03/20/19. General: Alert, Oriented x3, Cooperative HEENT: Atraumatic, PERRLA, EOMI, Normocephalic Neck: Supple, No JVD, Negative Carotid Bruits Lungs: Clear to auscultation, Normal air movement Cardiovascular: Regular rate, Regular Rhythm, Normal S1, Normal S2, No murmurs Abdomen: Bowel Sounds Present, Soft, Non Tender, Non-Distended Extremities: No clubbing, No cyanosis, No edema, Capillary Refill Less than 3 Seconds Skin: No rashes, No breakdown Musculoskeletal: No Tenderness to Palpation of Joints or Extremities Neurological: Cranial nerves II-XII grossly intact, Neuro grossly intact Psych/Mental Status: Normal Affect, Appropriate Patient seen and examined prior to discharge. Physical assessment as noted above. Patient is stable for discharge with follow up recommendations as noted above. This patient was seen by MT Gomez under the supervision of Dr. Adkins. - Physical Exam Vital Signs Temp Pulse Resp BP Pulse Ox 97.7 F L 50 L 18 143/100 H 100 04/16/19 08:59 04/16/19 09:21 04/16/19 08:59 04/16/19 09:02 04/16/19 08:59 Oxygen Flow Rate (L/min) 2 Oxygen Delivery Method Room Air Weight: 144 lb 3.2 oz Body Mass Index (BMI) 24.7 Intake and Output for Last 24 Hours 04/14/19 04/15/19 04/16/19 23:59 23:59 23:59 Intake Total 1100 / 1100 4326 / 4326 624 / 624 Balance 1100 / 1100 4326 / 4326 624 / 624 Laboratory Tests Past 24 Hrs 04/16/19 04/16/19 04/16/19 05:20 05:20 05:20 WBC 5.4 RBC 4.00 L Hgb 10.8 L Hct 33.8 L MCV 84.5 MCH 27.0 MCHC 32.0 RDW 17.7 H RDW Differential 54.5 H Plt Count 165 MPV 11.0 Immature Gran % (Auto) 0.200 Neut % (Auto) 37.5 L Lymph % (Auto) 50.3 H Irion % (Auto) 9.6 Eos % (Auto) 2.0 Baso % (Auto) 0.4 Absolute Neuts (auto) 2.0 Absolute Lymphs (auto) 2.71 Total Counted Not Reportable PT 14.3 INR 1.1 APTT 36.1 Sodium 140 Potassium 5.3 H Chloride 106 Carbon Dioxide 26.0 Anion Gap 8 BUN 20 H Creatinine 1.05 H Estim Creat Clear Calc 47.97 Est GFR (MDRD) Af Amer 68 Est GFR (MDRD) Non-Af 56 L BUN/Creatinine Ratio 19.0 Glucose 82 Calcium 8.7 Discharge Diet: Low fat/ Low Cholesterol Discharge Activity: Return to Normal Activity Call your doctor if you observe: Shortness of breath, Dizziness, Fainting spells, Chest pain Home Medications: Medications to take at Discharge Aspirin [Aspirin, Baby] 81 mg PO DAILY@0800 02/04/16 Citalopram [Celexa] 40 mg PO QHS 02/04/16 Omeprazole [Prilosec] 20 mg PO DAILY 02/04/16 busPIRone [Buspar] 10 mg PO TID 02/04/16 Clopidogrel Bisulfate [Plavix] 75 mg PO DAILY 01/27/18 cycloBENZAPRine HCl [Flexeril] 10 mg PO TID PRN PRN 03/12/18 traZODone [Desyrel] 50 mg PO QHS 03/12/18 Lisinopril [Zestril] 2.5 mg PO DAILY #90 tab 03/14/18 meloxicam 15 mg tablet 15 mg PO DAILY 05/17/18 nitroglycerin 0.4 mg sublingual tablet 0.4 mg SUBLINGUAL Q5M PRN #25 tab 08/17/18 primidone 50 mg tablet 50 mg PO QHS 30 Days #30 tab 08/17/18 Clonazepam [Klonopin] 2 mg PO TID 12/05/18 Azithromycin 1 tab PO DAILY 03/20/19 HYDROmorphone tablet [Dilaudid] 2 mg PO TID 04/14/19 Isosorbide Mononitrate [Imdur] 30 mg PO DAILY #30 tablet 04/16/19 Metoprolol Succinate [Toprol Xl] 12.5 mg PO DAILY #30 tab.er.24h 04/16/19 Following Prescrptions Were Given to Patient: Isosorbide Mononitrate [Imdur] 30 mg PO DAILY #30 tablet Metoprolol Succinate [Toprol Xl] 12.5 mg PO DAILY #30 tab.er.24h Primary Care Physician: Phani Odom MD [Primary Care Provider] - Please follow up with your Primary Care Physician in: 1 Week Please Follow Up With: Stephon Castro MD When: 1-2 Weeks, may see [employer] OPERATOR/PA Disposition: Home Minutes spent on discharge:: 35 Patient Condition:: Stable Medical Necessity - Tobacco Use Smoking Status: Current every day smoker Tobacco Use: Cigarettes Meaningful Use Info Meaningful Use Diagnoses (Choose all that apply): None applicable <Phuong Adkins - Last Filed: 04/16/19 12:39> Discharge Date and Diagnosis - Secondary Discharge Diagnosis Chronic Problems (Last Updated 04/25/18 @ 17:11 by Nohemy Cantu) Urinary retention (Chronic) Neurogenic bladder (Chronic) Claudication of both lower extremities (Chronic) Presence of stent in coronary artery (Chronic) [employer] PRECINCT/stent to Ramus and RCA 05/2003; Cutting balloon, PCI of Ramus, PCI/stent CFX 01/08; PTCA/taxus ADOLPH of CX, PTCA of the LAD and duiag 1 06/13; PTCA of the LAD intracoronary stent 03/2011; PTCA/ADOLPH to mid PDA 08/2012; In stent restenosis stent LM FFR @ [facility] 01/18 Premature ventricular contraction (Chronic) Hyperlipidemia (Chronic) Atherosclerotic heart disease of [place] coronary artery without angina pectoris (Chronic) PCI-Cutting balloon angioplasty-Mid LM for ISR 03/12/2018; [employer] PRECINCT/stent to Ramus and RCA 05/2003; Cutting balloon, PCI of Ramus, PCI/stent CFX 01/08; PTCA/taxus ADOLPH of CX, PTCA of the LAD and duiag 1 06/13; PTCA of the LAD intracoronary stent 03/2011; PTCA/ADOLPH to mid PDA 08/2012; In stent restenosis stent LM FFR @ [facility] 01/18 Nonrheumatic mitral (valve) prolapse (Chronic) Aortocoronary bypass status (Chronic ~05/12/04) CABG x3- GREEN to LAD, SVG to RCA and Ramus Intermedius 05/12/04 Postsurgical percutaneous transluminal coronary angioplasty (PTCA) status (Chronic ~03/12/18) PCI-Cutting balloon angioplasty-Mid LM for ISR 03/12/2018; [employer] PRECINCT/stent to Ramus and RCA 05/2003; Cutting balloon, PCI of Ramus, PCI/stent CFX 01/08; PTCA/taxus ADOLPH of CX, PTCA of the LAD and duiag 1 06/13; PTCA of the LAD intracoronary stent 03/2011; PTCA/ADOLPH to mid PDA 08/2012; In stent restenosis stent LM FFR @ [facility] 01/18 Pulmonary nodules (Chronic) Essential hypertension (Chronic) Lung nodule < 6cm on CT (Chronic) Tobacco abuse (Chronic) Hospital Course and Treatment Summary of Care Provided: Patient seen by Cynthia AMOR under my supervision The patient is a 64 year old F with a past medical history as listed. She was admitted to the ED with complaint of chest pain which located she was cleaning her house and was relieved by sublingual nitroglycerin. However it subsequently became persistent so she came into the ED. Troponins x3 were negative and EKG showed no acute ST changes. She has an extensive history of coronary artery disease including cardiac catheterization in March 2018 when she had a PCI and stent placement in the left main artery due to in-stent restenosis. She was admitted and managed for chest pain to rule out ACS. She had a stress test done on 04/16/2019 which was negative. Imdur was added on to her medication and she was counseled to quit smoking. She remained stable and was discharged home on 04/16/2019. She is to follow-up with her primary care doctor and cardiology. Patient seen and examined prior to discharge. She had no complaints and felt well. Review of systems otherwise negative. Labs and vitals reviewed. Home medications reviewed and reconciled. o/e: Vital Signs Height 5 ft 4 in Weight: 144 lb 3.2 oz Weight in Pounds 144.2 lbs BMI 26.6 Pulse Ox 100 Temperature 97.3 F Pulse Rate 46 Respiratory Rate 18 Blood Pressure 144/76 Blood Pressure Position Semi-Fowlers General: Alert, Oriented x3, Cooperative HEENT: Atraumatic, PERRLA, EOMI, Normocephalic Neck: Supple, No JVD, Negative Carotid Bruits Lungs: Clear to auscultation, Normal air movement Cardiovascular: bradycardia, Regular Rhythm, Normal S1, Normal S2, No murmurs Abdomen: Bowel Sounds Present, Soft, Non Tender, Non-Distended Extremities: No clubbing, No cyanosis, No edema, Capillary Refill Less than 3 Seconds Skin: No rashes, No breakdown Musculoskeletal: No Tenderness to Palpation of Joints or Extremities Neurological: Cranial nerves II-XII grossly intact, Neuro grossly intact Psych/Mental Status: Normal Affect, Appropriate Plan is to discharge him today. Of note, patient was noted to be bradycardic during admission with heart rate going as low as 39. This was sinus bradycardia. Cardiology reviewed patient and metoprolol was decreased to 12.5 mg daily. Rest of management as per MT Gomez's note which I reviewed and endorsed. [] - Physical Exam Vital Signs Temp Pulse Resp BP Pulse Ox 97.3 F L 46 L 18 144/76 H 100 04/16/19 12:15 04/16/19 12:15 04/16/19 12:15 04/16/19 12:15 04/16/19 12:15 Oxygen Flow Rate (L/min) 2 Oxygen Delivery Method Room Air Weight: 144 lb 3.2 oz Body Mass Index (BMI) 24.7 Intake and Output for Last 24 Hours 04/14/19 04/15/19 04/16/19 23:59 23:59 23:59 Intake Total 1100 / 1100 4326 / 4326 1000 / 1000 Balance 1100 / 1100 4326 / 4326 1000 / 1000 Laboratory Tests Past 24 Hrs 04/16/19 04/16/19 04/16/19 05:20 05:20 05:20 WBC 5.4 RBC 4.00 L Hgb 10.8 L Hct 33.8 L MCV 84.5 MCH 27.0 MCHC 32.0 RDW 17.7 H RDW Differential 54.5 H Plt Count 165 MPV 11.0 Immature Gran % (Auto) 0.200 Neut % (Auto) 37.5 L Lymph % (Auto) 50.3 H Irion % (Auto) 9.6 Eos % (Auto) 2.0 Baso % (Auto) 0.4 Absolute Neuts (auto) 2.0 Absolute Lymphs (auto) 2.71 Total Counted Not Reportable PT 14.3 INR 1.1 APTT 36.1 Sodium 140 Potassium 5.3 H Chloride 106 Carbon Dioxide 26.0 Anion Gap 8 BUN 20 H Creatinine 1.05 H Estim Creat Clear Calc 47.97 Est GFR (MDRD) Af Amer 68 Est GFR (MDRD) Non-Af 56 L BUN/Creatinine Ratio 19.0 Glucose 82 Calcium 8.7 Code Visit OBSV E&M: [id number] Observation care discharge
--- NOTE | 2019-04-16 11:28 | DS.PCM_ITS ---
<Cynthia Moon - Last Filed: 04/16/19 11:28> Discharge Date and Diagnosis Date of Admission: 04/14/19 Date of Discharge: 04/16/19 - Primary Discharge Diagnosis 1. Chest pain with history of CAD status post CABG/PCI-ACS ruled out 2. Chronic COPD 3. Hypertension 4. Hyperlipidemia 5. Nonrheumatic mitral valve prolapse 6. Chronic kidney disease stage II-III 7. Tobacco dependence 8. Depression/anxiety 9. GERD 10. Neurogenic bladder/urinary retention-status post InterStim lead placement with Dr. Hammer 03/20/19. - Secondary Discharge Diagnosis Chronic Problems (Last Updated 04/25/18 @ 17:11 by Nohemy Cantu) Urinary retention (Chronic) Neurogenic bladder (Chronic) Claudication of both lower extremities (Chronic) Presence of stent in coronary artery (Chronic) MANAGER INTERFACE/stent to Ramus and RCA 05/2003; Cutting balloon, PCI of Ramus, PCI/stent CFX 01/08; PTCA/taxus ADOLPH of CX, PTCA of the LAD and duiag 1 06/13; PTCA of the LAD intracoronary stent 03/2011; PTCA/ADOLPH to mid PDA 08/2012; In stent restenosis stent LM FFR @ [facility] 01/18 Premature ventricular contraction (Chronic) Hyperlipidemia (Chronic) Atherosclerotic heart disease of [place] coronary artery without angina pectoris (Chronic) PCI-Cutting balloon angioplasty-Mid LM for ISR 03/12/2018; MANAGER INTERFACE/stent to Ramus and RCA 05/2003; Cutting balloon, PCI of Ramus, PCI/stent CFX 01/08; PTCA/taxus ADOLPH of CX, PTCA of the LAD and duiag 1 06/13; PTCA of the LAD intracoronary stent 03/2011; PTCA/ADOLPH to mid PDA 08/2012; In stent restenosis stent LM FFR @ [facility] 01/18 Nonrheumatic mitral (valve) prolapse (Chronic) Aortocoronary bypass status (Chronic ~05/12/04) CABG x3- GREEN to LAD, SVG to RCA and Ramus Intermedius 05/12/04 Postsurgical percutaneous transluminal coronary angioplasty (PTCA) status (Chronic ~03/12/18) PCI-Cutting balloon angioplasty-Mid LM for ISR 03/12/2018; MANAGER INTERFACE/stent to Ramus and RCA 05/2003; Cutting balloon, PCI of Ramus, PCI/stent CFX 01/08; PTCA/taxus ADOLPH of CX, PTCA of the LAD and duiag 1 06/13; PTCA of the LAD intracoronary stent 03/2011; PTCA/ADOLPH to mid PDA 08/2012; In stent restenosis stent LM FFR @ [facility] 01/18 Pulmonary nodules (Chronic) Essential hypertension (Chronic) Lung nodule < 6cm on CT (Chronic) Tobacco abuse (Chronic) Hospital Course and Treatment Imaging Results: Diagnostic Data Chest X-Ray 04/14/19 15:33 IMPRESSION: 1. No acute cardiopulmonary process. Electronically Signed: Luis Solomon MD at 16:17 EDT , Service support , Dr. Burnham- Cardiology Operations: None Procedures: Stress test Summary of Care Provided: The patient is a 64 year old F admitted 04/14/2019 due to chest pain. 1. Chest pain with history of CAD status post CABG/PCI-EKG without ST-T changes. Troponin negative x3. Chest x-ray unremarkable. Patient follows with Dr. Castro. Patient had cardiac catheterization 03/12/2018 with PCI to mid left main in-stent restenosis. Cardiology consulted. Continue aspirin, Plavix, beta-johny. Isosorbide 30 mg daily added. Patient underwent nuclear stress test which was negative for ischemia. ACS ruled out. Echocardiogram shows an EF of 65%, stage II diastolic dysfunction, mild mitral valve prolapse. Patient has chronic bradycardia home beta-johny regimen reduced to Toprol XL 12.5 mg daily. Follow-up with primary care provider in 1 week. Follow-up with cardiology in 1 to 2 weeks. 2. Chronic COPD- no acute exacerbation. 3. Hypertension-stable, continue home lisinopril, metoprolol regimen. 4. Hyperlipidemia-reported allergy to statin. 5. Nonrheumatic mitral valve prolapse 6. 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 7. Tobacco dependence-encouraged smoking cessation. 8. Depression/anxiety-continue trazodone, citalopram, buspirone regimen. 9. GERD-continue PPI. 10. Neurogenic bladder/urinary retention-status post InterStim lead placement with Dr. Hammer 03/20/19. General: Alert, Oriented x3, Cooperative HEENT: Atraumatic, PERRLA, EOMI, Normocephalic Neck: Supple, No JVD, Negative Carotid Bruits Lungs: Clear to auscultation, Normal air movement Cardiovascular: Regular rate, Regular Rhythm, Normal S1, Normal S2, No murmurs Abdomen: Bowel Sounds Present, Soft, Non Tender, Non-Distended Extremities: No clubbing, No cyanosis, No edema, Capillary Refill Less than 3 Seconds Skin: No rashes, No breakdown Musculoskeletal: No Tenderness to Palpation of Joints or Extremities Neurological: Cranial nerves II-XII grossly intact, Neuro grossly intact Psych/Mental Status: Normal Affect, Appropriate Patient seen and examined prior to discharge. Physical assessment as noted above. Patient is stable for discharge with follow up recommendations as noted above. This patient was seen by MT Gomez under the supervision of Dr. Adkins. - Physical Exam Vital Signs Temp Pulse Resp BP Pulse Ox 97.7 F L 50 L 18 143/100 H 100 04/16/19 08:59 04/16/19 09:21 04/16/19 08:59 04/16/19 09:02 04/16/19 08:59 Oxygen Flow Rate (L/min) 2 Oxygen Delivery Method Room Air Weight: 144 lb 3.2 oz Body Mass Index (BMI) 24.7 Intake and Output for Last 24 Hours 04/14/19 04/15/19 04/16/19 23:59 23:59 23:59 Intake Total 1100 / 1100 4326 / 4326 624 / 624 Balance 1100 / 1100 4326 / 4326 624 / 624 Laboratory Tests Past 24 Hrs 04/16/19 04/16/19 04/16/19 05:20 05:20 05:20 WBC 5.4 RBC 4.00 L Hgb 10.8 L Hct 33.8 L MCV 84.5 MCH 27.0 MCHC 32.0 RDW 17.7 H RDW Differential 54.5 H Plt Count 165 MPV 11.0 Immature Gran % (Auto) 0.200 Neut % (Auto) 37.5 L Lymph % (Auto) 50.3 H [place] % (Auto) 9.6 Eos % (Auto) 2.0 Baso % (Auto) 0.4 Absolute Neuts (auto) 2.0 Absolute Lymphs (auto) 2.71 Total Counted Not Reportable PT 14.3 INR 1.1 APTT 36.1 Sodium 140 Potassium 5.3 H Chloride 106 Carbon Dioxide 26.0 Anion Gap 8 BUN 20 H Creatinine 1.05 H Estim Creat Clear Calc 47.97 Est GFR (MDRD) Af Amer 68 Est GFR (MDRD) Non-Af 56 L BUN/Creatinine Ratio 19.0 Glucose 82 Calcium 8.7 Discharge Diet: Low fat/ Low Cholesterol Discharge Activity: Return to Normal Activity Call your doctor if you observe: Shortness of breath, Dizziness, Fainting spells, Chest pain Home Medications: Medications to take at Discharge Aspirin [Aspirin, Baby] 81 mg PO DAILY@0800 02/04/16 Citalopram [Celexa] 40 mg PO QHS 02/04/16 Omeprazole [Prilosec] 20 mg PO DAILY 02/04/16 busPIRone [Buspar] 10 mg PO TID 02/04/16 Clopidogrel Bisulfate [Plavix] 75 mg PO DAILY 01/27/18 cycloBENZAPRine HCl [Flexeril] 10 mg PO TID PRN PRN 03/12/18 traZODone [Desyrel] 50 mg PO QHS 03/12/18 Lisinopril [Zestril] 2.5 mg PO DAILY #90 tab 03/14/18 meloxicam 15 mg tablet 15 mg PO DAILY 05/17/18 nitroglycerin 0.4 mg sublingual tablet 0.4 mg SUBLINGUAL Q5M PRN #25 tab 08/17/18 primidone 50 mg tablet 50 mg PO QHS 30 Days #30 tab 08/17/18 Clonazepam [Klonopin] 2 mg PO TID 12/05/18 Azithromycin 1 tab PO DAILY 03/20/19 HYDROmorphone tablet [Dilaudid] 2 mg PO TID 04/14/19 Isosorbide Mononitrate [Imdur] 30 mg PO DAILY #30 tablet 04/16/19 Metoprolol Succinate [Toprol Xl] 12.5 mg PO DAILY #30 tab.er.24h 04/16/19 Following Prescrptions Were Given to Patient: Isosorbide Mononitrate [Imdur] 30 mg PO DAILY #30 tablet Metoprolol Succinate [Toprol Xl] 12.5 mg PO DAILY #30 tab.er.24h Primary Care Physician: Phani Odom MD [Primary Care Provider] - Please follow up with your Primary Care Physician in: 1 Week Please Follow Up With: Stephon Castro MD When: 1-2 Weeks, may see PRIMARY EDUCATION PROFESSOR/PA Disposition: Home Minutes spent on discharge:: 35 Patient Condition:: Stable Medical Necessity - Tobacco Use Smoking Status: Current every day smoker Tobacco Use: Cigarettes Meaningful Use Info Meaningful Use Diagnoses (Choose all that apply): None applicable <Phuong Adkins - Last Filed: 04/16/19 12:39> Discharge Date and Diagnosis - Secondary Discharge Diagnosis Chronic Problems (Last Updated 04/25/18 @ 17:11 by Nohemy Cantu) Urinary retention (Chronic) Neurogenic bladder (Chronic) Claudication of both lower extremities (Chronic) Presence of stent in coronary artery (Chronic) MANAGER INTERFACE/stent to Ramus and RCA 05/2003; Cutting balloon, PCI of Ramus, PCI/stent CFX 01/08; PTCA/taxus ADOLPH of CX, PTCA of the LAD and duiag 1 06/13; PTCA of the LAD intracoronary stent 03/2011; PTCA/ADOLPH to mid PDA 08/2012; In stent restenosis stent LM FFR @ [facility] 01/18 Premature ventricular contraction (Chronic) Hyperlipidemia (Chronic) Atherosclerotic heart disease of [place] coronary artery without angina pectoris (Chronic) PCI-Cutting balloon angioplasty-Mid LM for ISR 03/12/2018; MANAGER INTERFACE/stent to Ramus and RCA 05/2003; Cutting balloon, PCI of Ramus, PCI/stent CFX 01/08; PTCA/taxus ADOLPH of CX, PTCA of the LAD and duiag 1 06/13; PTCA of the LAD intracoronary stent 03/2011; PTCA/ADOLPH to mid PDA 08/2012; In stent restenosis stent LM FFR @ [facility] 01/18 Nonrheumatic mitral (valve) prolapse (Chronic) Aortocoronary bypass status (Chronic ~05/12/04) CABG x3- GREEN to LAD, SVG to RCA and Ramus Intermedius 05/12/04 Postsurgical percutaneous transluminal coronary angioplasty (PTCA) status (Primary Clinician ana rosa ~03/12/18) PCI-Cutting balloon angioplasty-Mid LM for ISR 03/12/2018; MANAGER INTERFACE/stent to Ramus and RCA 05/2003; Cutting balloon, PCI of Ramus, PCI/stent CFX 01/08; PTCA/taxus ADOLPH of CX, PTCA of the LAD and duiag 1 06/13; PTCA of the LAD intracoronary stent 03/2011; PTCA/ADOLPH to mid PDA 08/2012; In stent restenosis stent LM FFR @ [facility] 01/18 Pulmonary nodules (Chronic) Essential hypertension (Chronic) Lung nodule < 6cm on CT (Chronic) Tobacco abuse (Chronic) Hospital Course and Treatment Summary of Care Provided: Patient seen by Cynthia AMOR under my supervision The patient is a 64 year old F with a past medical history as listed. She was admitted to the ED with complaint of chest pain which located she was cleaning her house and was relieved by sublingual nitroglycerin. However it subsequently became persistent so she came into the ED. Troponins x3 were negative and EKG showed no acute ST changes. She has an extensive history of coronary artery disease including cardiac catheterization in March 2018 when she had a PCI and stent placement in the left main artery due to in-stent restenosis. She was admitted and managed for chest pain to rule out ACS. She had a stress test done on 04/16/2019 which was negative. Imdur was added on to her medication and she was counseled to quit smoking. She remained stable and was discharged home on 04/16/2019. She is to follow-up with her primary care doctor and cardiology. Patient seen and examined prior to discharge. She had no complaints and felt well. Review of systems otherwise negative. Labs and vitals reviewed. Home medications reviewed and reconciled. o/e: Vital Signs Height 5 ft 4 in Weight: 144 lb 3.2 oz Weight in Pounds 144.2 lbs BMI 26.6 Pulse Ox 100 Temperature 97.3 F Pulse Rate 46 Respiratory Rate 18 Blood Pressure 144/76 Blood Pressure Position Semi-Fowlers General: Alert, Oriented x3, Cooperative HEENT: Atraumatic, PERRLA, EOMI, Normocephalic Neck: Supple, No JVD, Negative Carotid Bruits Lungs: Clear to auscultation, Normal air movement Cardiovascular: bradycardia, Regular Rhythm, Normal S1, Normal S2, No murmurs Abdomen: Bowel Sounds Present, Soft, Non Tender, Non-Distended Extremities: No clubbing, No cyanosis, No edema, Capillary Refill Less than 3 Seconds Skin: No rashes, No breakdown Musculoskeletal: No Tenderness to Palpation of Joints or Extremities Neurological: Cranial nerves II-XII grossly intact, Neuro grossly intact Psych/Mental Status: Normal Affect, Appropriate Plan is to discharge him today. Of note, patient was noted to be bradycardic during admission with heart rate going as low as 39. This was sinus bradycardia. Cardiology reviewed patient and metoprolol was decreased to 12.5 mg daily. Rest of management as per MT Gomez's note which I reviewed and endorsed. [] - Physical Exam Vital Signs Temp Pulse Resp BP Pulse Ox 97.3 F L 46 L 18 144/76 H 100 04/16/19 12:15 04/16/19 12:15 04/16/19 12:15 04/16/19 12:15 04/16/19 12:15 Oxygen Flow Rate (L/min) 2 Oxygen Delivery Method Room Air Weight: 144 lb 3.2 oz Body Mass Index (BMI) 24.7 Intake and Output for Last 24 Hours 04/14/19 04/15/19 04/16/19 23:59 23:59 23:59 Intake Total 1100 / 1100 4326 / 4326 1000 / 1000 Balance 1100 / 1100 4326 / 4326 1000 / 1000 Laboratory Tests Past 24 Hrs 04/16/19 04/16/19 04/16/19 05:20 05:20 05:20 WBC 5.4 RBC 4.00 L Hgb 10.8 L Hct 33.8 L MCV 84.5 MCH 27.0 MCHC 32.0 RDW 17.7 H RDW Differential 54.5 H Plt Count 165 MPV 11.0 Immature Gran % (Auto) 0.200 Neut % (Auto) 37.5 L Lymph % (Auto) 50.3 H [place] % (Auto) 9.6 Eos % (Auto) 2.0 Baso % (Auto) 0.4 Absolute Neuts (auto) 2.0 Absolute Lymphs (auto) 2.71 Total Counted Not Reportable PT 14.3 INR 1.1 APTT 36.1 Sodium 140 Potassium 5.3 H Chloride 106 Carbon Dioxide 26.0 Anion Gap 8 BUN 20 H Creatinine 1.05 H Estim Creat Clear Calc 47.97 Est GFR (MDRD) Af Amer 68 Est GFR (MDRD) Non-Af 56 L BUN/Creatinine Ratio 19.0 Glucose 82 Calcium 8.7 Code Visit OBSV E&M: 44113 Observation care discharge
[2019-04-16] MEDS: Sodium Polystyrene Sulfonate 15 GM/60 ML UDC PO (11:56)
--- NOTE | 2019-04-16 12:02 | CASEMGMT ---
This RN CM to room with JACOB form at this time, explanation done-pt voices understanding, and pt signs JACOB form at this time. Original to chart and copy to pt at this time. Pt voices no further questions/concerns/needs at this time. SStaten MARIA TERESA CM
== END 2019-04-16 11:21 | disposition home or self-care (01) ==
LOC: ED 16:14 → PCU 17:07
PROVIDERS: Internal Medicine Cardiovascular Disease; Admitting Provider Family Medicine; Emergency Provider Emergency Medicine; Family Provider Family Medicine; PCP Family Medicine; Visit Provider Student in an Organized Health Care Education/Training Program
DX: R07.89 Other chest pain (principal); I25.10 Atherosclerotic heart disease of native coronary artery without angina pectoris; J44.9 Chronic obstructive pulmonary disease, unspecified; E78.5 Hyperlipidemia, unspecified; I12.9 Hypertensive chronic kidney disease with stage 1 through stage 4 chronic kidney disease, or unspecified chronic kidney disease; N18.3 Chronic kidney disease, stage 3 (moderate); F41.9 Anxiety disorder, unspecified; R00.1 Bradycardia, unspecified; I34.1 Nonrheumatic mitral (valve) prolapse; R94.31 Abnormal electrocardiogram [ECG] [EKG]; F32.9 Major depressive disorder, single episode, unspecified; K21.9 Gastro-esophageal reflux disease without esophagitis; I49.3 Ventricular premature depolarization; N31.9 Neuromuscular dysfunction of bladder, unspecified; Z79.899 Other long term (current) drug therapy; Z95.1 Presence of aortocoronary bypass graft; Z79.02 Long term (current) use of antithrombotics/antiplatelets; Z79.82 Long term (current) use of aspirin; R91.1 Solitary pulmonary nodule; G47.33 Obstructive sleep apnea (adult) (pediatric); M19.90 Unspecified osteoarthritis, unspecified site
CPT/HCPCS: 36415; 71046; 78452; 80048; 84484; 85025; 85610; 85730; 93005; 93017; 93306; 96361; 96372; 96374; 96375; 96376; 99218; 99285; A9500; J7030; Q9957; A4216; C8929; G0378; J2405; J2785

== ENCOUNTER → 2019-04-23 | Outpatient (CLI) | payer MEDICARE, SELFPAY ==
[2018-03-13 08:23] VITALS: BMI 26.6
[2019-04-14 17:40] VITALS: BMI 24.7
[2019-04-23 18:10] LABS: Anion Gap 9 (5-15); BUN 8 mg/dL (7-18); BUN/Creat Ratio 7.8 RATIO (10-20); Calcium,Total 8.5 mg/dL (8.5-10.1); Chloride 104 mmol/L (98-107); Creatinine, Serum 1.02 mg/dL (0.55-1.02); EST Glomerular Filtration Rate 58 mL/min (>60); Est Glom Filt Rate - Afr Amer 71 mL/min (>60); Glucose 97 mg/dL (74-106); Potassium 4.1 mmol/L (3.5-5.1); Sodium Level 137 mmol/L (136-145)
== END | disposition home or self-care (01) ==
LOC: MFPLAB 16:48
PROVIDERS: Family Provider Family Medicine; PCP Family Medicine; Referring Provider Family Medicine; Visit Provider Family Medicine
DX: E87.5 Hyperkalemia (principal)
CPT/HCPCS: 36415; 80048

== ENCOUNTER 2019-06-20 17:14 | Observation (INO) | payer MEDICARE, SELFPAY ==
[2018-03-13 08:23] VITALS: BMI 26.6
[2019-04-14 17:40] VITALS: BMI 24.7
[2019-06-20] VITALS (9 sets, daily range): BP systolic 143–172; BP diastolic 79–100; PULSE 52–67; RESP 12–23; TEMP 36.7–36.9; O2SAT 96–100; BMI 25.1; BMI 24.7; BMI 24.8
--- NOTE | 2019-06-20 17:24 | EKG12_ITS ---
Test Reason : CP/SOB Blood Pressure : / mmHG Vent. Rate : 064 BPM Atrial Rate : 064 BPM P-R Int : 156 ms QRS Dur : 100 ms QT Int : 422 ms P-R-T Axes : -25 000 032 degrees QTc Int : 435 ms Normal sinus rhythm Normal ECG Confirmed by PATRICE HERNANDEZ ([id number]), material expeditor VERÓNICA THAPA ([id number]) on 06/21/2019 2:20:17 PM Referred By: Phuong Adkins Confirmed By:PATRICE HERNANDEZ
--- NOTE | 2019-06-20 18:18 | ED.DCSUM_ITS ---
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 Negative for: Nausea, Vomiting, Fever Narrative: Patient has a history of coronary disease with prior CABG and multiple stents the last of which was placed sometime last year. Today she was having exertional intermittent discomfort that would resolve minutes after resting, sharp, somewhat pleuritic, she states these of the same symptoms she had with prior MIs. States her COPD has been flaring up off and on lately because of the high humidity/weather. Denies any recent fever or significant wheezing today. No history of DVT or PE, no recent leg pain or calf swelling, hospitalization, surgery, or long travel. 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 to Ramus and RCA 05/2003; Cutting balloon, PCI of Ramus, PCI/stent CFX 01/08; PTCA/taxus ADOLPH of CX, PTCA of the LAD and duiag 1 06/13; PTCA of the LAD intracoronary stent 03/2011; PTCA/ADOLPH to mid PDA 08/2012; In stent restenosis stent LM FFR @ [facility] 01/18 (2) Claudication of both lower extremities Status: Chronic (3) Essential hypertension Status: Chronic (4) Hyperlipidemia Status: Chronic (5) Lung nodule < 6cm on CT Status: Chronic (6) Neurogenic bladder Status: Chronic (7) Nonrheumatic mitral (valve) prolapse Status: Chronic Past Medical History - Allergies and Home Meds Allergies/Adverse Reactions: Allergies Iodinated Contrast Media [Iodinated Contrast Media - IV Dye] Allergy (Verified 06/20/19 17:18) Other tetracycline [Tetracycline] Allergy (Verified 06/20/19 17:18) Hives pravastatin Adverse Reaction (Intermediate, Verified 06/20/19 17:18) Upset Stomach atorvastatin [From Lipitor] Adverse Reaction (Verified 06/20/19 17:18) myalgia Primary Care Physician: Phani Odom MD [Primary Care Provider] - Surgical History: angioplasty - Multiple coronary stents, appendectomy, cholecystectomy, coronary bypass surgery, hysterectomy, - - bilateral carpal tunnel repair, bladder suspension, small bowel resection. Smoking Status: Current every day smoker Drugs: None - Family History Paternal Family History: Family History (Last Reviewed 04/14/19 @ 17:40 by MT Gomez) Father Hypertension Family History: Reports: Cancer Offspring Family History: Family History (Last Reviewed 04/14/19 @ 17:40 by MT Gomez) Father Hypertension Family History: Reports: - Maternal Family History: Family History (Last Reviewed 04/14/19 @ 17:40 by MT Gomez) Father Hypertension Family History: Reports: Cancer Sibling Family History: Family History (Last Reviewed 04/14/19 @ 17:40 by MT Gomez) Father Hypertension Family History: Reports: - Review of Systems General: Reports: Malaise. Denies: Chills, Fever, Sweats Eyes: Denies: Visual changes - bilaterally, Diplopia ENT: Denies: Rhinorrhea, Sore throat Cardiovascular: Reports: Chest pain. Denies: Palpitations Respiratory: Reports: Dyspnea, Cough, Dyspnea on exertion. Denies: Orthopnea Gastrointestinal: Denies: Abdominal pain, Nausea, Vomiting, Diarrhea, Melena, Hematochezia Genitourinary: Denies: Dysuria, Hematuria, Frequency Musculoskeletal: Reports: Back pain - Chronic low back pain, unchanged, Extremity Pain - Left upper extremity with chest pain today. Denies: Swelling Skin: Denies: Rash, Wounds Neurological: Denies: Headache, Weakness, Numbness Physical Exam Vital Signs/Narrative: Vital Signs Temp Pulse Resp BP Pulse Ox 06/20/19 17:16 98.4 F 67 23 H 159/95 H 100 Inital Vital Signs reviewed: Yes General: Well nourished, Well developed, No Acute Distress Head: Normocephalic, Atraumatic Eyes: Perrl, EOMI ENT: Moist mucous membranes, No rhinorrhea Neck: Supple, Nontender, No JVD Cardiovascular: Regular rate, Regular rhythm, No murmurs Respiratory: No distress, Wheezing - Bibasilar inspiratory; otherwise clear, Diminished - Throughout, symmetrically, Chest tenderness - Lower sternal, states different than what she was having earlier Abdomen: Soft, Nontender, Nondistended, Normal bowel sounds Back: Nontender, Normal Inspection Extremities: Nontender, No edema. Negative for: Calf Tenderness Skin: Normal color, No rash, No Trauma Neurological: Alert, Oriented x3, Cranial nerves II-XII grossly intact, Normal Strength, Normal Sensation Psychological: Normal affect, Normal Mood Diagnostic/Tx/Re-eval Impressions Chest X-Ray 06/20/19 18:43 IMPRESSION: No acute thoracic pathology. Cardiomegaly. Electronically Signed: Reji Pete, at 18:59 EDT Tel , Service support , 06/20/19 18:43 Chest 1 View (Portable) [RAD] Stat Laboratory Results 06/20/19 06/20/19 06/20/19 18:00 18:00 18:00 WBC 6.5 RBC 3.67 L Hgb 9.9 L Hct 30.0 L MCV 81.7 MCH 27.0 MCHC 33.0 RDW Std Deviation 50.1 H RDW Coeff of Kit 16.7 H Plt Count 172 MPV 9.9 Immature Gran % (Auto) 0.200 Neut % (Auto) 41.4 L Lymph % (Auto) 47.7 H [place] % (Auto) 8.2 Eos % (Auto) 1.7 Baso % (Auto) 0.8 Absolute Neuts (auto) 2.7 Absolute Lymphs (auto) 3.08 Nucleated RBC % 0 APTT 36.2 Sodium 127 L Potassium 3.9 Chloride 96 L Carbon Dioxide 25.0 Anion Gap 6 BUN 13 Creatinine 1.04 H Estim Creat Clear Calc 48.43 Est GFR (MDRD) Af Amer 69 Est GFR (MDRD) Non-Af 57 L BUN/Creatinine Ratio 12.5 Glucose 91 Calcium 8.6 Troponin I < 0.015 - Rhythm Strip Rhythm Strip: Sinus Rhythm Rate: 65 Ectopy: None - EKG Initial EKG Interpretation: Sinus Rhythm, No Acute Injury Pattern Prior: Unchanged LIZETH Risk: H/O CAD, ASA within 7 days Score: 2 - Medical Decision Making Given patient's concerning symptoms, cardiac work-up was obtained and at this time is unremarkable. Placed nitroglycerin paste on her chest, which kept her pain-free. Plan is for admission to inpatient observation telemetry. ED Disposition - Plan for ED Patient: Disposition: Acute Care [facility] Diagnosis: Chest pain, unspecified Referrals: Phani Odom MD [Primary Care Provider] -
[2019-06-20 18:24] LABS: Absolute Lymphocyte Count 3.08 X10^3/uL (0.83-4.51); Absolute Neutrophil Count 2.7 X10^3/uL (2.0-7.7); Basophil# 0.05 X10^3/uL; Basophil% 0.8 % (0-1); Eosinophil# 0.11 X10^3/uL; Eosinophils% 1.7 % (0-5); Hemoglobin 9.9 g/dL (12.0-15.0); Lymphocyte # 3.08 X10^3/ul (4.0); Lymphocyte % 47.7 % (19-41); Mean Corpuscular Volume 81.7 fL (81-99); Mean Platelet Vol. 9.9 fl (6.2-12.0); Monocyte# 0.53 X10^3/uL; Monocyte% 8.2 % (0-10); NRBC Flagged by Analyzer 0 % (0-5); Neutrophil # 2.68 X10^3/uL (2.7-7.7); Neutrophil % 41.4 % (47-70); Platelet Count 172 K/mm3 (150-450); RBC Distribution Width CV 16.7 % (11.6-14.6); RBC Distribution Width SD 50.1 fl (35.1-43.9); Red Blood Count 3.67 M/mm3 (4.2-5.4); White Blood Count 6.5 K/mm3 (4.4-11.0)
[2019-06-20 18:30] LABS: Partial Thromboplast Time 36.2 Seconds (24.1-36.2)
[2019-06-20] MEDS: Nitroglycerin Oint 1 INCH PACKET TRANSDERM. (18:34)
[2019-06-20] MEDS: 0.9% Normal Saline 1,000 ML 150 ML IV (18:36)
[2019-06-20] MEDS: Aspirin 81 MG TAB.CHEW 324 MG PO (18:36)
[2019-06-20 18:37] LABS: Anion Gap 6 (5-15); BUN 13 mg/dL (7-18); BUN/Creat Ratio 12.5 RATIO (10-20); Calcium,Total 8.6 mg/dL (8.5-10.1); Chloride 96 mmol/L (98-107); Creatinine, Serum 1.04 mg/dL (0.55-1.02); EST Glomerular Filtration Rate 57 mL/min (>60); Est Glom Filt Rate - Afr Amer 69 mL/min (>60); Estimated Creatinine Clearance 48.43 ml/min; Glucose 91 mg/dL (74-106); Potassium 3.9 mmol/L (3.5-5.1); Sodium Level 127 mmol/L (136-145)
--- NOTE | 2019-06-20 18:43 | RAD_ITS ---
STUDY: X-RAY CHEST REASON FOR EXAM: Female, 64 years old. Chest pain TECHNIQUE: Frontal view of the chest COMPARISON: X-ray chest April 14, 2019 FINDINGS: Post CABG changes are present. Cervical fusion present. The lungs are clear. There are no pleural effusions. There is no pneumothorax. The heart is enlarged. The visualized osseous structures are within normal limits. RAD/Chest 1 View (Portable) IMPRESSION: No acute thoracic pathology. Cardiomegaly. Electronically Signed: Reji Pete, at 18:59 EDT Tel , Service support ,
[2019-06-20] MEDS: HYDROmorphone 2 MG TABLET PO ×2 (18:57→22:29)
--- NOTE | 2019-06-20 20:53 | PCM.HP.STD ---
History of Present Illness Date of Admission: 06/20/19 Chief Complaint: chest pain, chest congestion The patient is a 64 year old F with an extensive past medical history as listed which includes CAD status post stents in 2018 and COPD. She was admitted through the ED on 06/20/2019 with a complaint of chest pain and chest congestion was started on day of admission. She described chest pain as left-sided, radiating to her left arm and aggravated by exertion and relieved by nitro patch. She also complained of chest congestion and states she had a cough but was not able to expectorate the sputum she knew was within her lungs. She denied any fever chills, wheezing, any palpitations, diarrhea vomiting. Review of systems otherwise negative. Patient was admitted in April 2019 for similar chest pain and had a stress test which was negative and had Imdur added on to her medication. She claims compliance with her medications but states she is still smoking and smokes about half a pack a day. Review of systems otherwise negative. In the ED, vitals were significant for elevated blood pressure of 172/85 and mild bradycardia with pulse rate of 55. Chemistry was significant for sodium of 127 and creatinine of 1.04. Initial troponin was negative. CBC showed malignant of 9.9. EKG showed normal sinus rhythm with no acute ST changes and chest x-ray showed no acute intracranial process. She has been admitted to be managed for chest pain to rule out ACS. [] Past Medical History Past Medical History (Chronic Problems): Chronic Problems (Last Updated 04/25/18 @ 17:11 by Nohemy Cantu) Urinary retention (Chronic) Neurogenic bladder (Chronic) Claudication of both lower extremities (Chronic) Presence of stent in coronary artery (Chronic) [employer]/stent to Ramus and RCA 05/2003; Cutting balloon, PCI of Ramus, PCI/stent CFX 01/08; PTCA/taxus ADOLPH of CX, PTCA of the LAD and duiag 1 06/13; PTCA of the LAD intracoronary stent 03/2011; PTCA/ADOLPH to mid PDA 08/2012; In stent restenosis stent LM FFR @ [facility] 01/18 Premature ventricular contraction (Chronic) Hyperlipidemia (Chronic) Atherosclerotic heart disease of [place] coronary artery without angina pectoris (Chronic) PCI-Cutting balloon angioplasty-Mid LM for ISR 03/12/2018; [employer] SUPER[employer]OR/stent to Ramus and RCA 05/2003; Cutting balloon, PCI of Ramus, PCI/stent CFX 01/08; PTCA/taxus ADOLPH of CX, PTCA of the LAD and duiag 1 06/13; PTCA of the LAD intracoronary stent 03/2011; PTCA/ADOLPH to mid PDA 08/2012; In stent restenosis stent LM FFR @ [facility] 01/18 Nonrheumatic mitral (valve) prolapse (Chronic) Aortocoronary bypass status (Chronic ~05/12/04) CABG x3- GREEN to LAD, SVG to RCA and Ramus Intermedius 05/12/04 Postsurgical percutaneous transluminal coronary angioplasty (PTCA) status (Chronic ~03/12/18) PCI-Cutting balloon angioplasty-Mid LM for ISR 03/12/2018; [employer] SUPER[employer]OR/stent to Ramus and RCA 05/2003; Cutting balloon, PCI of Ramus, PCI/stent CFX 01/08; PTCA/taxus ADOLPH of CX, PTCA of the LAD and duiag 1 06/13; PTCA of the LAD intracoronary stent 03/2011; PTCA/ADOLPH to mid PDA 08/2012; In stent restenosis stent LM FFR @ [facility] 01/18 Pulmonary nodules (Chronic) Essential hypertension (Chronic) Lung nodule < 6cm on CT (Chronic) Tobacco abuse (Chronic) Medical History: Medical History (Last Updated 04/25/18 @ 17:11 by Nohemy Cantu) Premature ventricular contraction (Chronic) I49.3 Hyperlipidemia (Chronic) E78.5 Atherosclerotic heart disease of [place] coronary artery without angina pectoris (Chronic) I25.10 PCI-Cutting balloon angioplasty-Mid LM for ISR 03/12/2018; [employer] SUPERVISOR/stent to Ramus and RCA 05/2003; Cutting balloon, PCI of Ramus, PCI/stent CFX 01/08; PTCA/taxus ADOLPH of CX, PTCA of the LAD and duiag 1 06/13; PTCA of the LAD intracoronary stent 03/2011; PTCA/ADOLPH to mid PDA 08/2012; In stent restenosis stent LM FFR @ [facility] 01/18 Nonrheumatic mitral (valve) prolapse (Chronic) I34.1 Pulmonary nodules (Chronic) Essential hypertension (Chronic) I10 Lung nodule < 6cm on CT (Chronic) R91.1 Tobacco abuse (Chronic) Z72.0 COPD (chronic obstructive pulmonary disease) J44.9 DDD (degenerative disc disease) HOWARD (obstructive sleep apnea) G47.33 Osteoarthritis M19.90 Pericardial effusion (Resolved) I31.3 Allergies Iodinated Contrast Media [Iodinated Contrast Media - IV Dye] Allergy (Verified 06/20/19 17:18) Other tetracycline [Tetracycline] Allergy (Verified 06/20/19 17:18) Hives pravastatin Adverse Reaction (Intermediate, Verified 06/20/19 17:18) Upset Stomach atorvastatin [From Lipitor] Adverse Reaction (Verified 06/20/19 17:18) myalgia Home Medications: Ambulatory Orders Medication Instructions Recorded Aspirin [Aspirin, Baby] 81 mg PO DAILY@0800 02/04/16 Citalopram [Celexa] 40 mg PO QHS 02/04/16 Omeprazole [Prilosec] 20 mg PO DAILY 02/04/16 cycloBENZAPRine HCl [Flexeril] 10 mg PO TID PRN PRN 03/12/18 traZODone [Desyrel] 50 mg PO QHS 03/12/18 Lisinopril [Zestril] 2.5 mg PO DAILY #90 tab 03/14/18 meloxicam 15 mg tablet 15 mg PO DAILY 05/17/18 nitroglycerin 0.4 mg sublingual 0.4 mg SUBLINGUAL Q5M PRN #25 tab 08/17/18 tablet primidone 50 mg tablet 50 mg PO QHS 30 Days #30 tab 08/17/18 Clonazepam [Klonopin] 2 mg PO TID 12/05/18 HYDROmorphone tablet [Dilaudid] 2 mg PO TID 04/14/19 Isosorbide Mononitrate [Imdur] 30 mg PO DAILY #30 tablet 04/16/19 Metoprolol Succinate [Toprol Xl] 12.5 mg PO DAILY #30 tab.er.24h 04/16/19 Buspirone HCl 10 mg PO TID 06/20/19 Clopidogrel Bisulfate [Clopidogrel] 75 mg PO DAILY 06/20/19 Surgical History: Surgical History (Last Updated 04/25/18 @ 17:13 by Nohemy Cantu) Presence of stent in coronary artery (Chronic) Z95.5 [employer] SUPERVISOR/stent to Ramus and RCA 05/2003; Cutting balloon, PCI of Ramus, PCI/stent CFX 01/08; PTCA/taxus ADOLPH of CX, PTCA of the LAD and duiag 1 06/13; PTCA of the LAD intracoronary stent 03/2011; PTCA/ADOLPH to mid PDA 08/2012; In stent restenosis stent LM FFR @ [facility] 01/18 Aortocoronary bypass status (Chronic) Onset Date: ~05/12/04 Z95.1 CABG x3- GREEN to LAD, SVG to RCA and Ramus Intermedius 05/12/04 Postsurgical percutaneous transluminal coronary angioplasty (PTCA) status (Chronic) Onset Date: ~03/12/18 Z98.61 PCI-Cutting balloon angioplasty-Mid LM for ISR 03/12/2018; [employer] SUPERVISOR/stent to Ramus and RCA 05/2003; Cutting balloon, PCI of Ramus, PCI/stent CFX 01/08; PTCA/taxus ADOLPH of CX, PTCA of the LAD and duiag 1 06/13; PTCA of the LAD intracoronary stent 03/2011; PTCA/ADOLPH to mid PDA 08/2012; In stent restenosis stent LM FFR @ [facility] 01/18 History of abdominal surgery Z98.890 History of bowel resection Z98.890, Z90.49 History of cataract surgery Z98.49 History of cholecystectomy Z90.49 History of total hysterectomy Z90.710 Hx of appendectomy Z90.49 Surgical History: angioplasty - Multiple coronary stents, appendectomy, cholecystectomy, coronary bypass surgery, hysterectomy, - - bilateral carpal tunnel repair, bladder suspension, small bowel resection. 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: Anxiety, Depression PROJECT ADMIN History: No pertinent PROJECT ADMIN history Lives: Alone Smoking Status: Current every day smoker Drugs: None - *Family History Paternal Family History: Family History (Last Reviewed 04/14/19 @ 17:40 by MT Gomez) Father Hypertension History Items: Cancer Offspring Family History: Family History (Last Reviewed 04/14/19 @ 17:40 by MT Gomez) Father Hypertension History Items: - Maternal Family History: Family History (Last Reviewed 04/14/19 @ 17:40 by MT Gomez) Father Hypertension History Items: Cancer Sibling Family History: Family History (Last Reviewed 04/14/19 @ 17:40 by MT Gomez) Father Hypertension History Items: - Review of Systems Constitutional: Denies: Chills, Fever, Malaise, Weakness, Weight Change, Fatigue Eyes: Denies: Blurred vision HEENT: Denies: Head Aches, Sinus Congestion, Sinus Drainage Cardiovascular: Reports: Chest Pain. Denies: Chest Pressure, Chest Tightness, Edema, Heaviness, Light Headedness, Orthopnea, Palpitations, Paroxysmal Noc. Dyspnea, Syncope Respiratory: Reports: Cough, Shortness of Breath, Shortness of breath at rest, Shortness of breath upon exertion. Denies: Pleuritic Pain, Sputum production, Wheezing Gastrointestinal: Denies: Abdominal Pain, Nausea, Vomiting Genitourinary: Denies: Dysuria Musculoskeletal: Denies: Joint Pain, Joint Tenderness Skin: Denies: Rash, Wounds Neurological: Denies: Numbness, Tingling, Focal weakness Psychiatric: Denies: Anxiety, Depression, Homicidal Ideations, Suicidal Ideations Hematologic/ Lymphatic: Denies: Easy Bruising, Easy Bleeding VTE Information - Inpt Only VTE Present on Admission: No VTE Pharm Prophylaxis ordered?: Yes Patient Problems: Active and Suspected Problems (Last Updated 04/25/18 @ 17:11 by Nohemy Cantu) Chest pain, unspecified (Acute) - Physical Exam General: Alert, Oriented x3, Cooperative, No apparent distress HEENT: Atraumatic, PERRLA, EOMI, Normocephalic Oral: Moist Mucosa Neck: Supple, No JVD, Negative Carotid Bruits Lungs: - - Mildly decreased breath sounds bibasilarly. No wheezes or crackles. On 2 L of oxygen by nasal cannula. Cardiovascular: Regular rate, Regular Rhythm, Normal S1, Normal S2, No murmurs Abdomen: Bowel Sounds Present, Soft, Non Tender, Non-Distended, No Hepato-splenomegaly Extremities: No clubbing, No cyanosis, No edema, Capillary Refill Less than 3 Seconds Skin: No rashes, No breakdown Musculoskeletal: No Tenderness to Palpation of Joints or Extremities Lymphatic: No Cervical, Supraclavicular, or Inguinal Adenopathy Neurological: Cranial nerves II-XII grossly intact, Neuro grossly intact, Motor Exam 5/5 strength throughout Psych/Mental Status: Normal Affect, Appropriate, Alert and oriented to time, place, person, mood and affect Vital Signs Temp Pulse Resp BP Pulse Ox 98.4 F 55 L 14 172/85 H 99 06/20/19 18:19 06/20/19 20:17 06/20/19 20:17 06/20/19 20:17 06/20/19 20:17 Oxygen Flow Rate (L/min) 2 Oxygen Delivery Method Nasal Cannula Weight: 146 lb 6.191 oz Body Mass Index (BMI) 25.1 Laboratory Tests Past 24 Hrs 06/20/19 06/20/19 06/20/19 18:00 18:00 18:00 WBC 6.5 RBC 3.67 L Hgb 9.9 L Hct 30.0 L MCV 81.7 MCH 27.0 MCHC 33.0 RDW Std Deviation 50.1 H RDW Coeff of Kit 16.7 H Plt Count 172 MPV 9.9 Immature Gran % (Auto) 0.200 Neut % (Auto) 41.4 L Lymph % (Auto) 47.7 H [place] % (Auto) 8.2 Eos % (Auto) 1.7 Baso % (Auto) 0.8 Absolute Neuts (auto) 2.7 Absolute Lymphs (auto) 3.08 Nucleated RBC % 0 APTT 36.2 Sodium 127 L Potassium 3.9 Chloride 96 L Carbon Dioxide 25.0 Anion Gap 6 BUN 13 Creatinine 1.04 H Estim Creat Clear Calc 48.43 Est GFR (MDRD) Af Amer 69 Est GFR (MDRD) Non-Af 57 L BUN/Creatinine Ratio 12.5 Glucose 91 Calcium 8.6 Troponin I < 0.015 Diagnostic Data Chest X-Ray 06/20/19 18:43 IMPRESSION: No acute thoracic pathology. Cardiomegaly. Electronically Signed: Reji Pete, at 18:59 EDT Tel , Service support , Assessment/Plan All Active Problems (Last Updated 04/25/18 @ 17:11 by Nohemy Cantu) Chest pain, unspecified (Acute) Pericardial effusion (Resolved) 62-year-old female admitted with complaint of chest pain and chest congestion. 1. Chest pain, to r/o ACS admit to PCU with telemetry initial troponin negative; EKG showed no acute ST changes. CXR showed no acute cardiopulmonary process cycle troponin SL nitroglycerin prn. aspirin 81mg daily Continue Imdur. In light of patient's recent stress test about a month and a half ago for similar complaints, will consider consulting cardiology to get their recommendation as I do not think it would be prudent to repeat another stress test so soon. 2. Hyponatremia: Sodium is 127. Had episodes of hyponatremia in the past. Will hydrate gently and monitor. 3. CAD status post stents: Has had multiple drug-eluting stent placements and balloon angioplasties the latest being in March 2018. On aspirin, Plavix, Imdur and metoprolol as well as lisinopril 2.5 mg daily. 4. GERD: On omeprazole. 5. Depression: On Celexa and trazodone. 6 COPD: Complains of chest congestion and states she does not think she is able to expectorate sputum. on Breathing treatments. Guaifenesin cough syrup to help expectorate sputum. 7. Nicotine dependence: Still smokes about 1/2 pack daily. Counseled to quit. Nicotine patch 21 mg daily. 8. CKD stage III: Stable. 4. Non rheumatic mitral valve prolapse: Stable. 10. Neurogenic bladder and urinary retention status post InterStim lead placement: Stable. DVT prophylaxis: Lovenox Code Visit OBSV E&M: [id number] Initial observation care L3
--- NOTE | 2019-06-20 21:50 | EKG12_ITS ---
Test Reason : CP ADMISSION Blood Pressure : / mmHG Vent. Rate : 054 BPM Atrial Rate : 054 BPM P-R Int : 162 ms QRS Dur : 102 ms QT Int : 490 ms P-R-T Axes : 010 006 023 degrees QTc Int : 464 ms Sinus bradycardia Otherwise normal ECG When compared with ECG of 16-APR-2019 04:55, No significant change was found Confirmed by CHAPITO CHOI, NAHOMI ([id number]), editor magazine VERÓNICA THAPA ([id number]) on 06/26/2019 1:56:45 PM Referred By: Phuong Adkins Confirmed By:DARSHAN URIARTE MD
[2019-06-20] MEDS: 0.9% Normal Saline 1,000 ML 75 ML IV (22:17)
[2019-06-20] MEDS: busPIRone 5 MG Tablet 10 MG PO (22:21)
[2019-06-20] MEDS: Citalopram 40 MG TABLET PO (22:21)
[2019-06-20] MEDS: Primidone 50 MG Tablet PO (22:21)
[2019-06-20] MEDS: guaiFENesin 1,200 MG Tablet 1200 MG PO (22:22)
[2019-06-20] MEDS: traZODone 50 MG Tablet PO (22:22)
[2019-06-20] MEDS: Ipratropium/Albuterol Sulfate 3 ML AMPUL.NEB INHALATION (22:28)
[2019-06-20] MEDS: clonazePAM 1 MG Tablet 2 MG PO (22:29)
[2019-06-21] VITALS (20 sets, daily range): BP systolic 124–158; BP diastolic 65–87; PULSE 44–89; RESP 12–18; TEMP 36.3–36.9; O2SAT 92–98
[2019-06-21 03:53] LABS: Absolute Lymphocyte Count 2.39 X10^3/uL (0.83-4.51); Absolute Neutrophil Count 1.8 X10^3/uL (2.0-7.7); Basophil# 0.03 X10^3/uL; Basophil% 0.6 % (0-1); Eosinophil# 0.09 X10^3/uL; Eosinophils% 1.9 % (0-5); Hematocrit 28.1 % (37-47); Hemoglobin 8.9 g/dL (12.0-15.0); Lymphocyte # 2.39 X10^3/ul (4.0); Lymphocyte % 50.1 % (19-41); Mean Corp Hgb Conc 31.7 g/dL (32-36); Mean Corpuscular Hgb 26.3 pg (27.0-32.0); Mean Corpuscular Volume 82.9 fL (81-99); Mean Platelet Vol. 10.3 fl (6.2-12.0); Monocyte# 0.41 X10^3/uL; Monocyte% 8.6 % (0-10); NRBC Flagged by Analyzer 0 % (0-5); Neutrophil # 1.84 X10^3/uL (2.7-7.7); Neutrophil % 38.6 % (47-70); Platelet Count 149 K/mm3 (150-450); RBC Distribution Width SD 51.6 fl (35.1-43.9); Red Blood Count 3.39 M/mm3 (4.2-5.4); White Blood Count 4.8 K/mm3 (4.4-11.0)
[2019-06-21 04:10] LABS: Anion Gap 6 (5-15); BUN 10 mg/dL (7-18); BUN/Creat Ratio 12.2 RATIO (10-20); Chloride 106 mmol/L (98-107); Creatinine, Serum 0.82 mg/dL (0.55-1.02); EST Glomerular Filtration Rate 75 mL/min (>60); Est Glom Filt Rate - Afr Amer 91 mL/min (>60); Estimated Creatinine Clearance 61.43 ml/min; Glucose 82 mg/dL (74-106); Potassium 4.2 mmol/L (3.5-5.1); Sodium Level 135 mmol/L (136-145)
[2019-06-21] MEDS: busPIRone 5 MG Tablet 10 MG PO ×2 (05:55→13:19)
[2019-06-21] MEDS: HYDROmorphone 2 MG TABLET PO ×2 (05:55→13:23)
[2019-06-21] MEDS: clonazePAM 1 MG Tablet 2 MG PO ×2 (05:55→13:23)
[2019-06-21] MEDS: Ipratropium/Albuterol Sulfate 3 ML AMPUL.NEB INHALATION ×3 (06:52→14:15)
--- NOTE | 2019-06-21 08:09 | PCM.CONS.C ---
Problem List (1) Worsening angina Status: Acute (2) CAD in [place] artery Status: Chronic (3) Presence of stent in coronary artery Status: Chronic Comment: DAY TRADER/stent to Ramus and RCA 05/2003; Cutting balloon, PCI of Ramus, PCI/stent CFX 01/08; PTCA/taxus ADOLPH of CX, PTCA of the LAD and duiag 1 06/13; PTCA of the LAD intracoronary stent 03/2011; PTCA/ADOLPH to mid PDA 08/2012; In stent restenosis stent LM FFR @ [facility] 01/18 (4) Aortocoronary bypass status Status: Chronic Comment: CABG x3- GREEN to LAD, SVG to RCA and Ramus Intermedius 05/12/04 (5) MVP (mitral valve prolapse) Status: Chronic (6) Premature ventricular contraction Status: Chronic (7) Hyperlipidemia Status: Chronic Qualifiers: (8) Essential hypertension Status: Chronic (9) Cough Status: Acute (10) Shortness of breath Status: Acute Reason for Consult Date of Consultation: 06/21/19 History of Present Illness: The patient is a 64 year old white female with a past medical history which is included hyperlipidemia, hypertension, CAD, PCI, CABG, cardiomyopathy, PVCs, who is referred for evaluation of recurrent chest/left upper extremity discomfort, shortness of breath/dyspnea, and coughing. She states that she has noted recently not feeling well. Today she notes that she felt more short of breath and dyspneic and developed a cough. She subsequently presented to the emergency department for further evaluation. While in the emergency department she developed left sided chest discomfort radiating to her left upper extremity. She attributed this to her coughing episode. However based upon her extensive cardiovascular disease she underwent further evaluation. This included an initial troponin I level which was negative and an initial ECG that demonstrated sinus bradycardia. Chest x-ray was performed which demonstrated no acute cardiopulmonary disease process. She was subsequently placed in the PCU for further evaluation and care. She states her chest/left upper extremity discomfort subsequently resolved. She has continued to feel somewhat short of breath and have a cough. She states that time she is coughed up a greenish sputum. She states she has had some nausea but no obvious emesis. She denies diarrhea. There is been no near syncope or syncope. He does admit that she restarted cigarette smoking. She has had repeat troponin I levels which have been negative. A repeat ECG demonstrated continued sinus bradycardia. [] Past Medical History Allergies/Adverse Reactions: Allergies Iodinated Contrast Media [Iodinated Contrast Media - IV Dye] Allergy (Verified 06/20/19 17:18) Other tetracycline [Tetracycline] Allergy (Verified 06/20/19 17:18) Hives pravastatin Adverse Reaction (Intermediate, Verified 06/20/19 17:18) Upset Stomach atorvastatin [From Lipitor] Adverse Reaction (Verified 06/20/19 17:18) myalgia Home Medications: Ambulatory Orders Medication Instructions Recorded Aspirin [Aspirin, Baby] 81 mg PO DAILY@0800 02/04/16 Citalopram [Celexa] 40 mg PO QHS 02/04/16 Omeprazole [Prilosec] 20 mg PO DAILY 02/04/16 cycloBENZAPRine HCl [Flexeril] 10 mg PO TID PRN PRN 03/12/18 traZODone [Desyrel] 50 mg PO QHS 03/12/18 Lisinopril [Zestril] 2.5 mg PO DAILY #90 tab 03/14/18 meloxicam 15 mg tablet 15 mg PO DAILY 05/17/18 nitroglycerin 0.4 mg sublingual 0.4 mg SUBLINGUAL Q5M PRN #25 tab 08/17/18 tablet primidone 50 mg tablet 50 mg PO QHS 30 Days #30 tab 08/17/18 Clonazepam [Klonopin] 2 mg PO TID 12/05/18 HYDROmorphone tablet [Dilaudid] 2 mg PO TID 04/14/19 Isosorbide Mononitrate [Imdur] 30 mg PO DAILY #30 tablet 04/16/19 Metoprolol Succinate [Toprol Xl] 12.5 mg PO DAILY #30 tab.er.24h 04/16/19 Buspirone HCl 10 mg PO TID 06/20/19 Clopidogrel Bisulfate [Clopidogrel] 75 mg PO DAILY 06/20/19 Past Medical History (Chronic Problems): Chronic Problems (Last Updated 04/25/18 @ 17:11 by Nohemy Cantu) Urinary retention (Chronic) Neurogenic bladder (Chronic) CAD in [place] artery (Chronic) MVP (mitral valve prolapse) (Chronic) Claudication of both lower extremities (Chronic) Presence of stent in coronary artery (Chronic) DAY TRADER/stent to Ramus and RCA 05/2003; Cutting balloon, PCI of Ramus, PCI/stent CFX 01/08; PTCA/taxus ADOLPH of CX, PTCA of the LAD and duiag 1 06/13; PTCA of the LAD intracoronary stent 03/2011; PTCA/ADOLPH to mid PDA 08/2012; In stent restenosis stent LM FFR @ [facility] 01/18 Premature ventricular contraction (Chronic) Hyperlipidemia (Chronic) Atherosclerotic heart disease of [place] coronary artery without angina pectoris (Chronic) PCI-Cutting balloon angioplasty-Mid LM for ISR 03/12/2018; DAY TRADER/stent to Ramus and RCA 05/2003; Cutting balloon, PCI of Ramus, PCI/stent CFX 01/08; PTCA/taxus ADOLPH of CX, PTCA of the LAD and duiag 1 06/13; PTCA of the LAD intracoronary stent 03/2011; PTCA/ADOLPH to mid PDA 08/2012; In stent restenosis stent LM FFR @ [facility] 01/18 Nonrheumatic mitral (valve) prolapse (Chronic) Aortocoronary bypass status (Chronic ~05/12/04) CABG x3- GREEN to LAD, SVG to RCA and Ramus Intermedius 05/12/04 Postsurgical percutaneous transluminal coronary angioplasty (PTCA) status (Chronic ~03/12/18) PCI-Cutting balloon angioplasty-Mid LM for ISR 03/12/2018; DAY TRADER/stent to Ramus and RCA 05/2003; Cutting balloon, PCI of Ramus, PCI/stent CFX 01/08; PTCA/taxus ADOLPH of CX, PTCA of the LAD and duiag 1 06/13; PTCA of the LAD intracoronary stent 03/2011; PTCA/ADOLPH to mid PDA 08/2012; In stent restenosis stent LM FFR @ [facility] 01/18 Pulmonary nodules (Chronic) Essential hypertension (Chronic) Lung nodule < 6cm on CT (Chronic) Tobacco abuse (Chronic) Surgical History: angioplasty - Multiple coronary stents, appendectomy, cholecystectomy, coronary bypass surgery, hysterectomy, - - bilateral carpal tunnel repair, bladder suspension, small bowel resection. 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 PROFESSOR history - *Family History Paternal Family History: Family History (Last Reviewed 04/14/19 @ 17:40 by MT Gomez) Father Hypertension History Items: Cancer Offspring Family History: Family History (Last Reviewed 04/14/19 @ 17:40 by MT Gomez) Father Hypertension History Items: - Maternal Family History: Family History (Last Reviewed 04/14/19 @ 17:40 by MT Gomez) Father Hypertension History Items: Cancer Sibling Family History: Family History (Last Reviewed 04/14/19 @ 17:40 by MT Gomez) Father Hypertension History Items: - Lives: Alone Smoking Status: Current every day smoker Drugs: None Review of Systems - Review of Systems General: Denies: Fever, Night Sweats, Fatigue Cardiovascular: Reports: Chest Discomfort, Chest Discomfort at Rest, Shortness of Breath, Shortness of Breath at Rest, Shortness of Breath with Exertion. Denies: Orthopnea, PND, Peripheral Edema, Palpitations, Lightheadedness, Dizziness, Near Syncope, Syncope Respiratory: Reports: Cough, Sputum Production, Shortness of Breath. Denies: Hemoptysis Gastrointestinal: Reports: Nausea. Denies: Hematemesis, Hematochezia, Melena Genitourinary: Denies: Dysuria, Hematuria Skin: Denies: Rash Subjectve: Is a 64-year-old white female who appears to be resting reasonably comfortably at the moment in no acute distress. Objective: Vital Signs Temp Pulse Resp BP Pulse Ox 97.4 F L 52 L 16 137/65 H 95 06/21/19 03:32 06/21/19 07:00 06/21/19 03:32 06/21/19 03:32 06/21/19 03:32 Oxygen Flow Rate (L/min) 2 Oxygen Delivery Method Room Air Weight: 145 lb 4.554 oz Body Mass Index (BMI) 24.7 Intake and Output for Last 24 Hours 06/19/19 06/20/19 06/21/19 23:59 23:59 23:59 Intake Total 636 / 636 Balance 636 / 636 General: Awake, Alert, Oriented x 3, Cooperative, No Acute Distress HEENT: Atraumatic, Normocephalic, PERRL, EOMI, Sclera Non Icteric Oral: Moist Mucosa Neck: Supple, Good ROM, No JVD Lungs: Clear to auscultation Cardiovascular: Regular Rhythm, Normal S1, Normal S2 Vascular: No Carotid Bruits Abdomen: Bowel Sounds Present, Soft, Non Tender Extremities: No Cyanosis, No Clubbing, No edema Neurological: No Focal Motor or Sensory Deficit Psych/Mental Status: Appropriate 06/20/19 18:00: WBC 6.5, RBC 3.67 L, Hgb 9.9 L, Hct 30.0 L, MCV 81.7, MCH 27.0, MCHC 33.0, Plt Count 172, MPV 9.9, Immature Gran % (Auto) 0.200, Neut % (Auto) 41.4 L, Lymph % (Auto) 47.7 H, [place] % (Auto) 8.2, Eos % (Auto) 1.7, Baso % (Auto) 0.8, Absolute Neuts (auto) 2.7, Nucleated RBC % 0 06/20/19 18:00: APTT 36.2 06/20/19 18:00: Sodium 127 L, Potassium 3.9, Chloride 96 L, Carbon Dioxide 25.0, Anion Gap 6, BUN 13, Creatinine 1.04 H, Est GFR (MDRD) Af Amer 69, Est GFR (MDRD) Non-Af 57 L, BUN/Creatinine Ratio 12.5, Glucose 91, Calcium 8.6, Troponin I < 0.015 06/20/19 21:42: Troponin I < 0.015 06/21/19 03:22: Troponin I < 0.015 06/21/19 03:22: WBC 4.8, RBC 3.39 L, Hgb 8.9 L, Hct 28.1 L, MCV 82.9, MCH 26.3 L, MCHC 31.7 L, Plt Count 149 L, MPV 10.3, Immature Gran % (Auto) 0.200, Neut % (Auto) 38.6 L, Lymph % (Auto) 50.1 H, [place] % (Auto) 8.6, Eos % (Auto) 1.9, Baso % (Auto) 0.6, Absolute Neuts (auto) 1.8 L, Nucleated RBC % 0 06/21/19 03:22: Sodium 135 L, Potassium 4.2, Chloride 106, Carbon Dioxide 23.0, Anion Gap 6, BUN 10, Creatinine 0.82, Est GFR (MDRD) Af Amer 91, Est GFR (MDRD) Non-Af 75, BUN/Creatinine Ratio 12.2, Glucose 82, Calcium 8.0 L Rhythm: Sinus rhythm EKG: Sinus bradycardia ECHO: 04-16-19: Left ventricle considered normal with an estimated LVEF 65%; mild mitral valve prolapse Stress Test: 04-16-19 Stress protocol. Resting EKG demonstrates sinus bradycardia with a rate of 39 bpm normal intervals are noted resting blood pressures 138/82 mmHg. 0.4 mg of regadenoson was infused per usual protocol followed by rapid intravenous saline flush injection continuous EKG monitoring was performed. The patient maintained sinus rhythm throughout the recording. The maximum heart rate attained was 91 bpm which was 57% of maximum predicted heart rate the maximum workload was 1 metabolic equivalent. The resting blood pressures 138/82 final blood pressures 110/68. Nonspecific ST-T wave changes were noted. Myocardial perfusion protocol. 11.2 mCi of technetium 99m sestamibi was injected at rest. 0.4 mg of regadenoson was infused per usual protocol peak infusion 33.3 mCi of technetium 99m sestamibi was injected stress images were obtained stress and rest images were reconstructed and compared in the short axis vertical long horizontal long axis. Gated images were also obtained per Perfusion SPECT analysis: Review of the stress images demonstrate normal uptake of tracer noted in all areas of the myocardium. The resting images similarly demonstrate normal uptake of tracer noted in all areas of the myocardium. A very small portion of the anterolateral wall on the stress and rest images has a mild reduction of perfusion which appears to be secondary to breast wall attenuation. Gated SPECT analysis: The gated ejection fraction is noted to be 74%. Conclusion: Normal pharmacologic myocardial perfusion stress test. Preserved ejection fraction.. Cardiac Cath: 03-12-18 Left ventricle described with an LVEF of 20 to 25% Left main coronary artery with in-stent restenosis of 75 to 80% LAD: No significant disease noted LCx with ostial 100% stenosis Intermediate ramus with no significant disease noted Right coronary arteries 100% stenosis GREEN to the LAD: Patent SVG to the third OM: Patent SVG to right PDA: Patent Mitral valve with grade 2 to grade 3 mitral insufficiency Aortic root: Dilated PCI: 03-12-18 Left main intravascular ultrasound with PTCA to the left main in-stent restenosis CT Surgery: 05-12-2004: [facility] GREEN to the LAD SVG to the OM system SVG to the right PDA CXR: As noted above: Please see official report Chest CT Scan: 08-08-17 Included the following: There are calcifications of the coronary arteries. Sternal cerclage wires are present from a prior sternotomy. Normal mediastinum. Normal hilar regions. Normal unenhanced pulmonary arteries. There is atherosclerotic calcification of the aortic arch with tortuosity and elongation of the aortic arch and descending thoracic aorta. Assessment/Plan 1. Worsening angina The patient presents with nonexertional left-sided chest discomfort/left upper extremity discomfort concerning for worsening angina pectoris. Her cardiac enzymes have demonstrated negative troponins thus far. Her ECG is demonstrated sinus bradycardia with no acute ECG changes. She has recently undergone noninvasive evaluation as noted above. Noting her past cardiovascular history, restarting cigarette smoking, nonexertional symptoms, superimposed upon her most recent PCI, it was felt reasonable to consider her for reevaluation of her coronary/graft status in the cardiac catheterization laboratory noting that she has recently had noninvasive studies. The procedure and risks were discussed with her and she was agreeable to this approach. 2. CAD status post PCI status post CABG The patient has an extensive history of coronary artery disease and revascularization procedures as previously noted. She has been on medical management. Unfortunately she has started cigarette smoking again. She has recently undergone noninvasive evaluation. However based upon her current presentation concern of worsening intrapetrous it was felt reasonable that she be reevaluated in the cardiac catheterization laboratory. In the interim she will continue medical management. 3. Cardiomyopathy The patient has had waxing and waning LV systolic function depending upon the status of her coronary vessels. Most recently her LV systolic function appears to improved compared to 2018. This can be reassessed further as deemed appropriate. In the interim she will need continued medical management. 4. Mitral valve prolapse The patient has had a long-standing history of mitral valve prolapse. She will continue evaluation care as deemed appropriate. 5. PVCs The patient has a long-standing history of underlying ventricular ectopy. She has been on medical management including low-dose beta-blockers. Her beta-johny dose has been low based upon her chronic history of sinus bradycardia. 6. Hyperlipidemia She should continue risk factor evaluation and care including medical therapy if tolerated. 7. Hypertension Her blood pressures can be monitored. She will continue medical management. 8. Cough/shortness of breath The patient presents with a cough/shortness of breath. The patient does not appear to be in overt CHF at this time to explain her cough and/or shortness of breath. She will be further evaluated as noted above with respect to her coronary artery disease status as to any contribution to her shortness of breath. However, she may need to be considered for further evaluation for other pulmonary issues which may include viral or bacterial respiratory related issues. Continue evaluation care per internal medicine. Comment: The patient's case has been discussed and reviewed with patient and Dr. Akins. This note was generated using a voice recognition system and there may be incorrect words, spelling or punctuation that were not noted when reviewing the office note prior to saving.
[2019-06-21] MEDS: Famotidine 20 MG Tablet PO (08:23)
[2019-06-21] MEDS: DiphenhydrAMINE 25 MG Capsule 50 MG PO (08:24)
[2019-06-21] MEDS: Clopidogrel Bisulfate 75 MG Tablet PO (08:24)
[2019-06-21] MEDS: Isosorbide Mononitrate 30 MG Tablet PO (08:24)
[2019-06-21] MEDS: MethylPREDNISolone 125 MG/2 ML Vial IV (08:24)
[2019-06-21] MEDS: Metoprolol(XL)Succ 25 MG Tablet 12.5 MG PO (08:24)
[2019-06-21] MEDS: Aspirin 81 MG TAB.CHEW PO (08:27)
[2019-06-21] MEDS: Lisinopril 2.5 MG Tablet PO (08:28)
--- NOTE | 2019-06-21 08:33 | PCM.PN.HOSP ---
Patient Problems: Active and Suspected Problems (Last Updated 04/25/18 @ 17:11 by Nohemy Cantu) Chest pain, unspecified (Acute) Worsening angina (Acute) Cough (Acute) Shortness of breath (Acute) Subjective: Patient is a 64-year-old lady with past medical history significant for CAD with previous CABG and subsequent stent placement who presented with chest pain patient had dyspnea. Given her prior history admitted to monitored bed as a case of angina equivalent with consultation placed to cardiology Objective: GENERAL: cooperative HEENT: Atraumatic; moist oral mucosa EYES; Anicteric, Normal Conjunctiva NECK; supple, normal thyroid, RESPIRATORY: Diminished to auscultation CARDIOVASCULAR: Regular S1 S2, GI: soft, non-tender, normoactive bowel sounds, : No Renal angle tenderness; EXTREMITIES: No edema, no clubbing, MUSCULOSKELETAL: No Joint Tenderness; NEURO: Awake; no lateralizing signs. SKIN: No Rash PSYCH; Normal affect Vitals/I&O's: Vital Signs Temp Pulse Resp BP Pulse Ox 98.5 F 70 16 147/77 H 95 06/21/19 08:22 06/21/19 08:24 06/21/19 08:22 06/21/19 08:22 06/21/19 08:22 Oxygen Flow Rate (L/min) 2 Oxygen Delivery Method Room Air Weight: 65.9 kg Body Mass Index (BMI) 24.7 Intake and Output for Last 24 Hours 06/19/19 06/20/19 06/21/19 23:59 23:59 23:59 Intake Total 636 / 636 Balance 636 / 636 Laboratory Results 06/20/19 18:00: WBC 6.5, RBC 3.67 L, Hgb 9.9 L, Hct 30.0 L, MCV 81.7, MCH 27.0, MCHC 33.0, RDW Std Deviation 50.1 H, RDW Coeff of Kit 16.7 H, Plt Count 172, MPV 9.9, Immature Gran % (Auto) 0.200, Neut % (Auto) 41.4 L, Lymph % (Auto) 47.7 H, [place] % (Auto) 8.2, Eos % (Auto) 1.7, Baso % (Auto) 0.8, Absolute Neuts (auto) 2.7, Absolute Lymphs (auto) 3.08, Nucleated RBC % 0 06/20/19 18:00: APTT 36.2 06/20/19 18:00: Sodium 127 L, Potassium 3.9, Chloride 96 L, Carbon Dioxide 25.0, Anion Gap 6, BUN 13, Creatinine 1.04 H, Estim Creat Clear Calc 48.43, Est GFR (MDRD) Af Amer 69, Est GFR (MDRD) Non-Af 57 L, BUN/Creatinine Ratio 12.5, Glucose 91, Calcium 8.6, Troponin I < 0.015 06/20/19 21:42: Troponin I < 0.015 06/21/19 03:22: Troponin I < 0.015 06/21/19 03:22: WBC 4.8, RBC 3.39 L, Hgb 8.9 L, Hct 28.1 L, MCV 82.9, MCH 26.3 L, MCHC 31.7 L, RDW Std Deviation 51.6 H, RDW Coeff of Kit 17.0 H, Plt Count 149 L, MPV 10.3, Immature Gran % (Auto) 0.200, Neut % (Auto) 38.6 L, Lymph % (Auto) 50.1 H, [place] % (Auto) 8.6, Eos % (Auto) 1.9, Baso % (Auto) 0.6, Absolute Neuts (auto) 1.8 L, Absolute Lymphs (auto) 2.39, Nucleated RBC % 0 06/21/19 03:22: Sodium 135 L, Potassium 4.2, Chloride 106, Carbon Dioxide 23.0, Anion Gap 6, BUN 10, Creatinine 0.82, Estim Creat Clear Calc 61.43, Est GFR (MDRD) Af Amer 91, Est GFR (MDRD) Non-Af 75, BUN/Creatinine Ratio 12.2, Glucose 82, Calcium 8.0 L Current Medications Albuterol/Ipratropium (Duoneb) 3 ml INHALATION Q4HWA.RT [facility] Last Admin: 06/21/19 06:52 Dose: 3 ml Documented by: Aspirin (Aspirin, Baby) 81 mg PO DAILY@0800 [facility] Last Admin: 06/21/19 08:27 Dose: 81 mg Documented by: Buspirone HCl (Buspar) 10 mg PO TID [facility] Last Admin: 06/21/19 05:55 Dose: 10 mg Documented by: Citalopram Hydrobromide (Celexa) 40 mg PO QHS [facility] Last Admin: 06/20/19 22:21 Dose: 40 mg Documented by: Clonazepam (Klonopin) 2 mg PO TID [facility] Last Admin: 06/21/19 05:55 Dose: 2 mg Documented by: Clopidogrel Bisulfate (Plavix) 75 mg PO DAILY [facility] Last Admin: 06/21/19 08:24 Dose: 75 mg Documented by: Cyclobenzaprine HCl (Flexeril) 10 mg PO TID PRN PRN PRN Reason: PAIN Dextrose (D50w Syringe) 0 gm IV X1 PRN; Protocol PRN Reason: Hypoglycemia Enoxaparin Sodium (Lovenox) 40 mg SC DAILY@1000 [facility] Glucagon () 1 mg IM .X1 PRN PRN Reason: Hypoglycemia Guaifenesin (Mucinex) 1,200 mg PO BID [facility] Last Admin: 06/20/19 22:22 Dose: 1,200 mg Documented by: Hydromorphone HCl (Dilaudid Tablet) 2 mg PO TID [facility] Last Admin: 06/21/19 05:55 Dose: 2 mg Documented by: Sodium Chloride () 1,000 mls @ 75 mls/hr IV .[id number] [facility] Stop: 06/22/19 00:09 Last Admin: 06/20/19 22:17 Dose: 75 mls/hr Documented by: Sodium Chloride () 1,000 mls @ 15 mls/hr IV .Q48H [facility] Isosorbide Mononitrate (Imdur) 30 mg PO DAILY [facility] Last Admin: 06/21/19 08:24 Dose: 30 mg Documented by: Lisinopril (Zestril) 2.5 mg PO DAILY [facility] Last Admin: 06/21/19 08:28 Dose: 2.5 mg Documented by: Metoprolol Succinate (Toprol Xl (Beta Ministerio)) 12.5 mg PO DAILY [facility] Last Admin: 06/21/19 08:24 Dose: 12.5 mg Documented by: Nitroglycerin (Nitrostat) 0.4 mg SUBLINGUAL Q5M PRN PRN Reason: Chest Pain Pantoprazole Sodium (Protonix) 20 mg PO DAILY [facility] Primidone (Mysoline) 50 mg PO QHS [facility] Last Admin: 06/20/19 22:21 Dose: 50 mg Documented by: Sodium Chloride () 10 - 40 ml IV UD PRN PRN Reason: SALINE FLUSH Trazodone HCl (Desyrel) 50 mg PO QHS [facility] Last Admin: 06/20/19 22:22 Dose: 50 mg Documented by: Medical Necessity - Tobacco Use Smoking Status: Current every day smoker Assessment/Plan All Active Problems (Last Updated 04/25/18 @ 17:11 by Nohemy Cantu) Chest pain, unspecified (Acute) Worsening angina (Acute) Cough (Acute) Shortness of breath (Acute) Pericardial effusion (Resolved) Patient is a 64-year-old lady with past medical history significant for CAD with previous CABG and subsequent stent placement who presented with chest pain patient had dyspnea. Given her prior history admitted to monitored bed as a case of angina equivalent with consultation placed to cardiology 1. Exertional dyspnea and chest pain in a patient with known coronary artery disease. Admitted to regular nursing floor. Patient apparently undergone recent stress test which was reported to be negative however given her previous history consultation was placed to cardiology Case discussed with Dr. Castro plan is for patient to undergo left heart catheterization and intervention if needed 2. CAD with previous CABG and subsequent stent placement 3. Hyponatremia; sodium level on admission was 127 up to 135 on the morning of 01/19/2019 3. Hypertension-blood pressure controlled, home medications continued with dose adjustment as needed 4. Dyslipidemia-patient is on statin therapy, continued at home dose 5. Degenerative joint disease per Hx 6. Tobacco dependence counseled on cessation, offered nicotine patch for tobacco cravings 7. Obstructive sleep apnea 8. Depression with anxiety patient is on SSRI as well as Klonopin 9. Mitral valve prolapse 10. COPD without acute exacerbation 11. Neurogenic bladder and urinary retention status post InterStim lead placement 12. GERD on PPI 13. DVT prophylaxis Lovenox Code Visit OBSV E&M: [id number] Subsequent observation care L3
--- NOTE | 2019-06-21 09:39 | CASEMGMT ---
According to the [facility] website, the following are in-network tertiary facilities: [facility], [facility], [facility], [facility], and . Belkis MOREL CM
--- NOTE | 2019-06-21 09:54 | CL.D_ITS ---
Patient Name: TEODORO ALMEIDA Study Date: 06/21/2019 Performing: Stephon Castro MD Ht: 64.17 inches 163 cm : 1955 Wt: 145.51 lbs 66 kg Age: 64 Gender: female BSA: 1.71 PROCEDURE(S) PERFORMED KE89-SOR/COR/LV CLINICAL PROFILE AND INDICATIONS Indications: Worsening Angina, Suspected CAD Heart Failure: None Stress/Imaging Date: 04/16/2019Stress Test with SPECT MPI: Negative Angina Classification Anginal Classification w/in 2 Weeks: CCS IV CAD Presentations: Unstable angina. CONCLUSIONS Elevated Left Ventricular End Diastolic Pressure LVEF: by LV gram 55 % [place] Multivessel CAD GREEN to LAD: patent SVG to OM3: patent SVG to RCA: patent Left to left collateral flow Right to left collateral flow RECOMMENDATIONS Medical therapy Risk factor modification DESCRIPTION OF PROCEDURE The patient arrived to the procedure lab. The risks and benefits of the procedure as well as a full d escription of our services here and current unavailability of surgical backup were fully explained to the patient and/or their significant other prior to the catheterization. The Timeout was completed, verifying the correct patient and procedure. The patient's procedural site was prepped and draped in the usual fashion. Local anesthetic was given subcutaneously to right groin region with Lidocaine 2%. Using a modified Seldinger technique, arterial access was obtained via the right femoral artery, a 4 Fr sheath was inserted Left Coronary Artery selective angiography was performed in multiple views us ing a 4 Fr. JL5 catheter. Saphenous Vein graft to the OM 3 selective angiography was performed in mul tiple views using a 4 Fr. 3DRC catheter. Saphenous Vein graft to the RCA selective angiography was pe rformed in multiple views using a 4 Fr. JR4 catheter. Left internal mammary artery graft to the LAD selective angiography was performed in multiple views using a 4 Fr. JR4 catheter. Left Ronnie triculography was performed in GALVEZ projection using a 4 Fr. Pigtail catheter. LV to AO pullback press ures were then recorded.The arterial sheath was pulled and manual compression applied until hemostasi s is achieved. CORONARY ANGIOGRAPHY DOMINANCE: Right Dominant LEFT HEART ASSESSMENT Left Ventricular Ejection Fraction: by LV Gram 55 % Inferior Basal Akinesis Elevated Left Ventricular End Diastolic Pressure LVEDP: 22 mmHg LEFT MAIN: Previously placed stent has an instent 10 - 25 % restenosis LEFT ANTERIOR DESCENDING ARTERY: PROX LAD: Previously placed stent is patent, Mild luminal irregularities MID LAD: fills from antegrade flow and GREEN flow with no angiographically significant appearing disea se distal to the graft attachment DIAGONAL 1: Proximal - Mild luminal irregularities CIRCUMFLEX ARTERY: PROX CIRC: Previously placed stent is occluded RAMUS: Previously placed stent is occluded RIGHT CORONARY ARTERY: OSTIAL RCA: is occluded GRAFTS: GREEN graft to the Mid LAD is patent Saphenous Vein graft to the 3rd OM is patent with no angiographically significant disease distal to t he anastomosis and providing left to left collateral flow Saphenous Vein graft to the Distal CIRC is patent with no angiographically significant disease distal to the anastomosis and providing right to left collateral flow COLLATERAL FLOW: Collateral flow from Left to Left Collateral flow from Right to Left COMPLICATIONS No Complications PROCEDURE MEDICATIONS Versed 1 mg IV Versed 1 mg IV Oxygen: 2 L/min via nasal cannula SUMMARY OF HEMODYNAMIC DATA Time AIR REST ECG 08:44:22 AO 160/75 (106) SA 09:08:39 LV 171/1, 24 09:22:36 LV 170/-5, 22 09:22:42 LV 163/0, 25 09:23:28 LV 168/-2, 21 09:23:34 LVp 172/-6, 25 09:23:42 AOp 165/74 (108) 09:23:47 RM AIR REST 09:49:47 Signed By Stephon Castro MD On 06/21/2019 09:54:13 Stephon Castro MD
[2019-06-21] MEDS: 0.9% Normal Saline 1,000 ML 15 ML IV (10:13)
[2019-06-21] MEDS: 0.9% Normal Saline 1,000 ML 75 ML IV (10:48)
[2019-06-21 11:17] LABS: D-Dimer Quantitative (DVT/PE) 1.09 FEU/ug/m (0.27-0.49)
--- NOTE | 2019-06-21 11:38 | VDLE_ITS ---
Reason For Study: Elevated D-dimer RIGHT LEFT GSV is normal. GSV is normal. CFV is compressible, spontaneous, phasic, CFV is compressible, spontaneous, phasic, competent and demonstrates normal competent, and demonstrates normal augmentation. augmentation. FV is compressible, spontaneous, phasic, FV is compressible, spontaneous, phasic, competent and demonstrates normal competent and demonstrates normal augmentation. augmentation. POP V is compressible, spontaneous, phasic, POP V is compressible, spontaneous, phasic, competent and demonstrates normal competent and demonstrates normal augmentation. augmentation. T/P Trunk is compressible. T/P Trunk is compressible. PTV is compressible. PTV is compressible. RT PerV is compressible. LT PerV is compressible. Procedure Exam performed portable in patient room. A preliminary report was called and/or faxed to [facility]. Interpretation Summary Deep veins of the lower extremities are bilaterally patent and compressible segmentally. There is no evidence of deep vein thrombosis on either side. Valvular competence appears intact within the proximal deep venous systems bilaterally. The great saphenous veins appear bilaterally patent and compressible segmentally. Ordering Physician: Philipp Akins Referring Physician: Sen Odom MD Performed By: Rashida Rivera RVT
--- NOTE | 2019-06-21 11:38 | NM_ITS ---
CLINICAL: 64-year-old female with reported history of shortness of breath. VENTILATION-PERFUSION LUNG SCINTIGRAPHY COMPARISON: Plain film chest radiograph 06/20/2019 FINDINGS: The patient was administered 48.8 mCi 99m Tc DTPA aerosol. The aerosol ventilation study demonstrates heterogeneous ventilation identified throughout the bilateral lung casas without corresponding radiographic changes defined on plain film chest x-ray dated 06/20/2019. Central clumping of the aerosol is noted in the bilateral hemithorax. Following the intravenous administration of 5.2 mCi of 99m Tc MAA the pulmonary perfusion study reveals uniform perfusion throughout both lung casas. There are no segmental or subsegmental perfusion defects identified. There are no ventilation-perfusion mismatches observed. NM/Lung Scan Vent/Perf IMPRESSION: 1. NORMAL 99m Tc MAA pulmonary perfusion imaging examination, according to PIOPED II interpretive criteria. (Sotsman et al, Radiology 246: 941, 2008 Soneetu et al, J Nucl Med 49: 1741, 2008). 2. Central clumping of the aerosol may be secondary to obstructive airway mechanics and or clinical tachypnea. Electronically Signed: Angel Enriquez DO at 15:12 EDT Tel , Service support ,
[2019-06-21] MEDS: Pantoprazole Sodium 20 MG Tablet PO (12:08)
[2019-06-21] MEDS: guaiFENesin 1,200 MG Tablet 1200 MG PO (12:09)
[2019-06-21] MEDS: Enoxaparin 80 MG/0.8 ML Syringe 70 MG SC (13:18)
--- NOTE | 2019-06-21 15:35 | CASEMGMT ---
Intro role of CM to patient and JACOB form explained re: Observation status for treatment of chest pain, low sodium. Explained hospitalization will be paid per? insurance policy for Outpatient billing?and condition will continue to be evaluated for Inpt necessity. Also let pt know that [facility] sends paper in the billing packet with their phone number if questions arise. Discussed Pharmacy section of JACOB form and self administered medication guideline.? Pt verbalizes understanding and does not have further questions. Form signed and placed in chart, copy to pt. KEIRY MOREL BSN CM
--- NOTE | 2019-06-21 15:50 | CASEMGMT ---
LW/POA in e-chart, SW printed and placed in paper chart. ADAL Fonseca
--- NOTE | 2019-06-21 17:59 | PCM.DC ---
- Discharge Diagnoses Current Active Problems: Current Active and Chronic Problems (Last Updated 04/25/18 @ 17:11 by Nohemy Cantu) Chest pain, unspecified (Acute) Worsening angina (Acute) CAD in [place] artery (Chronic) MVP (mitral valve prolapse) (Chronic) Cough (Acute) Shortness of breath (Acute) You will use the following diet at home:: Cardiac Discharge Activity: Return to Normal Activity Call your doctor if you observe: Shortness of breath, Dizziness, Fainting spells, Chest pain Allergies/Adverse Reactions: Allergies Iodinated Contrast Media [Iodinated Contrast Media - IV Dye] Allergy (Verified 06/20/19 17:18) Other tetracycline [Tetracycline] Allergy (Verified 06/20/19 17:18) Hives pravastatin Adverse Reaction (Intermediate, Verified 06/20/19 17:18) Upset Stomach atorvastatin [From Lipitor] Adverse Reaction (Verified 06/20/19 17:18) myalgia Medications to take at Discharge Aspirin [Aspirin, Baby] 81 mg PO DAILY@0800 02/04/16 Citalopram [Celexa] 40 mg PO QHS 02/04/16 Omeprazole [Prilosec] 20 mg PO DAILY 02/04/16 cycloBENZAPRine HCl [Flexeril] 10 mg PO TID PRN PRN 03/12/18 traZODone [Desyrel] 50 mg PO QHS 03/12/18 Lisinopril [Zestril] 2.5 mg PO DAILY #90 tab 03/14/18 meloxicam 15 mg tablet 15 mg PO DAILY 05/17/18 nitroglycerin 0.4 mg sublingual tablet 0.4 mg SUBLINGUAL Q5M PRN #25 tab 08/17/18 primidone 50 mg tablet 50 mg PO QHS 30 Days #30 tab 08/17/18 Clonazepam [Klonopin] 2 mg PO TID 12/05/18 HYDROmorphone tablet [Dilaudid] 2 mg PO TID 04/14/19 Isosorbide Mononitrate [Imdur] 30 mg PO DAILY #30 tablet 04/16/19 Metoprolol Succinate [Toprol Xl] 12.5 mg PO DAILY #30 tab.er.24h 04/16/19 Buspirone HCl 10 mg PO TID 06/20/19 Clopidogrel Bisulfate [Clopidogrel] 75 mg PO DAILY 06/20/19 Primary Care Physician: Phani Odom MD [Primary Care Provider] - Please follow up with your Primary Care Physician in: 1 Week Test Results: Test results from this visit will be discussed in further detail at your follow-up appointment, if applicable. Please Follow Up With: Patrick Stevenson NP-C When: As scheduled, 07/04/19 Proposed Discharge Date: 06/21/19
--- NOTE | 2019-06-21 18:01 | DS.PCM_ITS ---
<Cynthia Moon - Last Filed: 06/21/19 18:15> Discharge Date and Diagnosis Date of Admission: 06/20/19 Date of Discharge: 06/21/19 - Primary Discharge Diagnosis Active and Suspected Problems (Last Updated 04/25/18 @ 17:11 by Nohemy Cantu) 1. Chest pain and GARRISON with history of CAD status post CABG/PCI, ACS and PE ruled out 2. Chronic COPD 3. Hypertension 4. Hyperlipidemia 5. Nonrheumatic mitral valve prolapse 6. 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 7. Tobacco dependence 8. Depression/anxiety 9. GERD 10. Neurogenic bladder/urinary retention-status post InterStim lead placement with Dr. Hammer 03/20/19. 11. HOWARD 12. Hypovolemic hyponatremia, improved - Secondary Discharge Diagnosis Chronic Problems (Last Updated 04/25/18 @ 17:11 by Nohemy Cantu) Urinary retention (Chronic) Neurogenic bladder (Chronic) CAD in [place] artery (Chronic) MVP (mitral valve prolapse) (Chronic) Claudication of both lower extremities (Chronic) Presence of stent in coronary artery (Chronic) SCOURING MACHINE TENDER/stent to Ramus and RCA 05/2003; Cutting balloon, PCI of Ramus, PCI/stent CFX 01/08; PTCA/taxus ADOLPH of CX, PTCA of the LAD and duiag 1 06/13; PTCA of the LAD intracoronary stent 03/2011; PTCA/ADOLPH to mid PDA 08/2012; In stent restenosis stent LM FFR @ [facility] 01/18 Premature ventricular contraction (Chronic) Hyperlipidemia (Chronic) Atherosclerotic heart disease of [place] coronary artery without angina pectoris (Chronic) PCI-Cutting balloon angioplasty-Mid LM for ISR 03/12/2018; SCOURING MACHINE TENDER/stent to Ramus and RCA 05/2003; Cutting balloon, PCI of Ramus, PCI/stent CFX 01/08; PTCA/taxus ADOLPH of CX, PTCA of the LAD and duiag 1 06/13; PTCA of the LAD intracoronary stent 03/2011; PTCA/ADOLPH to mid PDA 08/2012; In stent restenosis stent LM FFR @ [facility] 01/18 Nonrheumatic mitral (valve) prolapse (Chronic) Aortocoronary bypass status (Chronic ~05/12/04) CABG x3- GREEN to LAD, SVG to RCA and Ramus Intermedius 05/12/04 Postsurgical percutaneous transluminal coronary angioplasty (PTCA) status (Chronic ~03/12/18) PCI-Cutting balloon angioplasty-Mid LM for ISR 03/12/2018; SCOURING MACHINE TENDER/stent to Ramus and RCA 05/2003; Cutting balloon, PCI of Ramus, PCI/stent CFX 01/08; PTCA/taxus ADOLPH of CX, PTCA of the LAD and duiag 1 06/13; PTCA of the LAD intracoronary stent 03/2011; PTCA/ADOLPH to mid PDA 08/2012; In stent restenosis stent LM FFR @ [facility] 01/18 Pulmonary nodules (Chronic) Essential hypertension (Chronic) Lung nodule < 6cm on CT (Chronic) Tobacco abuse (Chronic) Hospital Course and Treatment Imaging Results: Diagnostic Data Chest X-Ray 06/20/19 18:43 IMPRESSION: No acute thoracic pathology. Cardiomegaly. Electronically Signed: Reji Pete, at 18:59 EDT Tel , Service support , Lung Scan-VQ NM 06/21/19 11:38 IMPRESSION: 1. NORMAL 99m Tc MAA pulmonary perfusion imaging examination, according to PIOPED II interpretive criteria. (Sotsman et al, Radiology 246: 941, 2008 Sotsman et al, J Nucl Med 49: 1741, 2008). 2. Central clumping of the aerosol may be secondary to obstructive airway mechanics and or clinical tachypnea. Electronically Signed: Angel Enriquez DO at 15:12 EDT Tel , Service support , Dr. Castro- Cardiology Operations: None Procedures: Cardiac catheterization, - - VQ scan Summary of Care Provided: The patient is a 64 year old F admitted 06/20/2019 due to chest pain. 1. Chest pain, dyspnea on exertion with history of CAD status post CABG/PCI-EKG without ST-T changes. Troponin negative x3. Chest x-ray unremarkable. Patient follows with Dr. Castro. Patient had cardiac catheterization 03/12/2018 with PCI to mid left main in-stent restenosis. Echocardiogram 04/16/2019 demonstrated an EF of 65%, stage II diastolic dysfunction, mild mitral valve prolapse. Cardiology consulted. Patient underwent cardiac catheterization 06/21/2019, she did not require further intervention. Continue medical management with aspirin, Plavix, beta-johny, isosorbide. Continue follow-up with cardiology, patient has appointment scheduled with Patrick stevenson NP 07/04/2019. D-dimer elevated. VQ scan normal. Venous Doppler normal. ACS and PE ruled out. Follow-up with primary care provider in 1 week. 2. Chronic COPD- no acute exacerbation. 3. Hypertension-stable, continue home lisinopril, metoprolol regimen. 4. Hyperlipidemia-reported allergy to statin. 5. Nonrheumatic mitral valve prolapse 6. Chronic kidney disease stage II-at baseline. 7. Tobacco dependence-encouraged smoking cessation. 8. Depression/anxiety-continue trazodone, citalopram, buspirone regimen. 9. GERD-continue PPI. 10. Neurogenic bladder/urinary retention-status post InterStim lead placement with Dr. Hammer 03/20/19. 11. HOWARD 12. Hypovolemic hyponatremia-improved with IV fluids. General: Alert, Oriented x3, Cooperative HEENT: Atraumatic, PERRLA, EOMI, Normocephalic Neck: Supple, No JVD, Negative Carotid Bruits Lungs: Clear to auscultation, Normal air movement Cardiovascular: Regular rate, Regular Rhythm, Normal S1, Normal S2, No murmurs Abdomen: Bowel Sounds Present, Soft, Non Tender, Non-Distended Extremities: No clubbing, No cyanosis, No edema, Capillary Refill Less than 3 Seconds Skin: No rashes, No breakdown Musculoskeletal: No Tenderness to Palpation of Joints or Extremities Neurological: Cranial nerves II-XII grossly intact, Neuro grossly intact Psych/Mental Status: Normal Affect, Appropriate Patient seen and examined prior to discharge. Physical assessment as noted above. Patient is stable for discharge with follow up recommendations as noted above. This patient was seen by MT Gomez under the supervision of Dr. Akins. - Physical Exam Vital Signs Temp Pulse Resp BP Pulse Ox 98.2 F 89 12 148/87 H 97 06/21/19 14:00 06/21/19 15:15 06/21/19 15:15 06/21/19 14:00 06/21/19 14:00 Oxygen Flow Rate (L/min) 2 Oxygen Delivery Method Room Air Weight: 145 lb 4.554 oz Body Mass Index (BMI) 24.7 Intake and Output for Last 24 Hours 06/19/19 06/20/19 06/21/19 23:59 23:59 23:59 Intake Total 1002 / 1002 Balance 1002 / 1002 Laboratory Tests Past 24 Hrs 06/20/19 06/20/19 06/20/19 18:00 18:00 18:00 WBC 6.5 RBC 3.67 L Hgb 9.9 L Hct 30.0 L MCV 81.7 MCH 27.0 MCHC 33.0 RDW Std Deviation 50.1 H RDW Coeff of Kit 16.7 H Plt Count 172 MPV 9.9 Immature Gran % (Auto) 0.200 Neut % (Auto) 41.4 L Lymph % (Auto) 47.[address] [place] % (Auto) 8.2 Eos % (Auto) 1.7 Baso % (Auto) 0.8 Absolute Neuts (auto) 2.7 Absolute Lymphs (auto) 3.08 Nucleated RBC % 0 APTT 36.2 D-Dimer Quant (PE/DVT) Sodium 127 L Potassium 3.9 Chloride 96 L Carbon Dioxide 25.0 Anion Gap 6 BUN 13 Creatinine 1.04 H Estim Creat Clear Calc 48.43 Est GFR (MDRD) Af Amer 69 Est GFR (MDRD) Non-Af 57 L BUN/Creatinine Ratio 12.5 Glucose 91 Calcium 8.6 Troponin I < 0.015 06/20/19 06/21/19 06/21/19 21:42 03:22 03:22 WBC 4.8 RBC 3.39 L Hgb 8.9 L Hct 28.1 L MCV 82.9 MCH 26.3 L MCHC 31.7 L RDW Std Deviation 51.6 H RDW Coeff of Kit 17.0 H Plt Count 149 L MPV 10.3 Immature Gran % (Auto) 0.200 Neut % (Auto) 38.6 L Lymph % (Auto) 50.[address] [place] % (Auto) 8.6 Eos % (Auto) 1.9 Baso % (Auto) 0.6 Absolute Neuts (auto) 1.8 L Absolute Lymphs (auto) 2.39 Nucleated RBC % 0 APTT D-Dimer Quant (PE/DVT) Sodium Potassium Chloride Carbon Dioxide Anion Gap BUN Creatinine Estim Creat Clear Calc Est GFR (MDRD) Af Amer Est GFR (MDRD) Non-Af BUN/Creatinine Ratio Glucose Calcium Troponin I < 0.015 < 0.015 06/21/19 06/21/19 03:22 10:50 WBC RBC Hgb Hct MCV MCH MCHC RDW Std Deviation RDW Coeff of Kit Plt Count MPV Immature Gran % (Auto) Neut % (Auto) Lymph % (Auto) [place] % (Auto) Eos % (Auto) Baso % (Auto) Absolute Neuts (auto) Absolute Lymphs (auto) Nucleated RBC % APTT D-Dimer Quant (PE/DVT) 1.09 H* Sodium 135 L Potassium 4.2 Chloride 106 Carbon Dioxide 23.0 Anion Gap 6 BUN 10 Creatinine 0.82 Estim Creat Clear Calc 61.43 Est GFR (MDRD) Af Amer 91 Est GFR (MDRD) Non-Af 75 BUN/Creatinine Ratio 12.2 Glucose 82 Calcium 8.0 L Troponin I Discharge Diet: Low fat/ Low Cholesterol Discharge Activity: Return to Normal Activity Call your doctor if you observe: Shortness of breath, Dizziness, Fainting spells, Chest pain Home Medications: Medications to take at Discharge Aspirin [Aspirin, Baby] 81 mg PO DAILY@0800 02/04/16 Citalopram [Celexa] 40 mg PO QHS 02/04/16 Omeprazole [Prilosec] 20 mg PO DAILY 02/04/16 cycloBENZAPRine HCl [Flexeril] 10 mg PO TID PRN PRN 03/12/18 traZODone [Desyrel] 50 mg PO QHS 03/12/18 Lisinopril [Zestril] 2.5 mg PO DAILY #90 tab 03/14/18 meloxicam 15 mg tablet 15 mg PO DAILY 05/17/18 nitroglycerin 0.4 mg sublingual tablet 0.4 mg SUBLINGUAL Q5M PRN #25 tab 08/17/18 primidone 50 mg tablet 50 mg PO QHS 30 Days #30 tab 08/17/18 Clonazepam [Klonopin] 2 mg PO TID 12/05/18 HYDROmorphone tablet [Dilaudid] 2 mg PO TID 04/14/19 Isosorbide Mononitrate [Imdur] 30 mg PO DAILY #30 tablet 04/16/19 Metoprolol Succinate [Toprol Xl] 12.5 mg PO DAILY #30 tab.er.24h 04/16/19 Buspirone HCl 10 mg PO TID 06/20/19 Clopidogrel Bisulfate [Clopidogrel] 75 mg PO DAILY 06/20/19 Primary Care Physician: Phani Oodm MD [Primary Care Provider] - Please follow up with your Primary Care Physician in: 1 Week Please Follow Up With: Patrick Stevenson NP-C When: As scheduled, 07/04/19 Disposition: Home Minutes spent on discharge:: 35 Patient Condition:: Stable Medical Necessity - Tobacco Use Smoking Status: Current every day smoker Meaningful Use Info Meaningful Use Diagnoses (Choose all that apply): None applicable <Philipp Akins - Last Filed: 06/21/19 19:23> Discharge Date and Diagnosis - Secondary Discharge Diagnosis Chronic Problems (Last Updated 04/25/18 @ 17:11 by Nohemy Cantu) Urinary retention (Chronic) Neurogenic bladder (Chronic) CAD in [place] artery (Chronic) MVP (mitral valve prolapse) (Chronic) Claudication of both lower extremities (Chronic) Presence of stent in coronary artery (Chronic) SCOURING MACHINE TENDER/stent to Ramus and RCA 05/2003; Cutting balloon, PCI of Ramus, PCI/stent CFX 01/08; PTCA/taxus ADOLPH of CX, PTCA of the LAD and duiag 1 06/13; PTCA of the LAD intracoronary stent 03/2011; PTCA/ADOLPH to mid PDA 08/2012; In stent restenosis stent LM FFR @ [facility] 01/18 Premature ventricular contraction (Chronic) Hyperlipidemia (Chronic) Atherosclerotic heart disease of [place] coronary artery without angina pectoris (Chronic) PCI-Cutting balloon angioplasty-Mid LM for ISR 03/12/2018; SCOURING MACHINE TENDER/stent to Ramus and RCA 05/2003; Cutting balloon, PCI of Ramus, PCI/stent CFX 01/08; PTCA/taxus ADOLPH of CX, PTCA of the LAD and duiag 1 06/13; PTCA of the LAD intracoronary stent 03/2011; PTCA/ADOLPH to mid PDA 08/2012; In stent restenosis stent LM FFR @ [facility] 01/18 Nonrheumatic mitral (valve) prolapse (Chronic) Aortocoronary bypass status (Chronic ~05/12/04) CABG x3- GREEN to LAD, SVG to RCA and Ramus Intermedius 05/12/04 Postsurgical percutaneous transluminal coronary angioplasty (PTCA) status (Chronic ~03/12/18) PCI-Cutting balloon angioplasty-Mid LM for ISR 03/12/2018; SCOURING MACHINE TENDER/stent to Ramus and RCA 05/2003; Cutting balloon, PCI of Ramus, PCI/stent CFX 01/08; PTCA/taxus ADOLPH of CX, PTCA of the LAD and duiag 1 06/13; PTCA of the LAD intracoronary stent 03/2011; PTCA/ADOLPH to mid PDA 08/2012; In stent restenosis stent LM FFR @ [facility] 01/18 Pulmonary nodules (Chronic) Essential hypertension (Chronic) Lung nodule < 6cm on CT (Chronic) Tobacco abuse (Chronic) Hospital Course and Treatment Imaging Results: 06/21/19 11:38 Lung Scan Vent/Perf [NM] Urgent Summary of Care Provided: Patient is a 64-year-old lady with past medical history significant for CAD with previous CABG and subsequent stent placement who presented with chest pain patient had dyspnea. Given her prior history admitted to monitored bed as a case of angina equivalent with consultation placed to cardiology 1. Exertional dyspnea and chest pain in a patient with known coronary artery disease. Admitted to regular nursing floor. Patient apparently undergone recent stress test which was reported to be negative however given her previous history consultation was placed to cardiology Case discussed with Dr. Castro patient underwent left heart catheter which was negative for any new obstructive lesions. We did order a d-dimer which came back positive patient underwent subsequent evaluation with a VQ scan as well as bilateral venous duplex all of which came back negative patient was discharged home instructed to follow-up with PCP for subsequent care. 2. CAD with previous CABG and subsequent stent placement 3. Hyponatremia; sodium level on admission was 127 up to 135 on the morning of 01/19/2019 3. Hypertension-blood pressure controlled, home medications continued with dose adjustment as needed 4. Dyslipidemia-patient is on statin therapy, continued at home dose 5. Degenerative joint disease per Hx 6. Tobacco dependence counseled on cessation, offered nicotine patch for tobacco cravings 7. Obstructive sleep apnea 8. Depression with anxiety patient is on SSRI as well as Klonopin 9. Mitral valve prolapse 10. COPD without acute exacerbation 11. Neurogenic bladder and urinary retention status post InterStim lead placement 12. GERD on PPI 13. DVT prophylaxis Lovenox - Physical Exam Vital Signs Temp Pulse Resp BP Pulse Ox 98.2 F 89 12 148/87 H 97 06/21/19 14:00 06/21/19 15:15 06/21/19 15:15 06/21/19 14:00 06/21/19 14:00 Oxygen Flow Rate (L/min) 2 Oxygen Delivery Method Room Air Weight: 65.9 kg Body Mass Index (BMI) 24.7 Intake and Output for Last 24 Hours 06/19/19 06/20/19 06/21/19 23:59 23:59 23:59 Intake Total 1002 / 1002 Balance 1002 / 1002 Laboratory Tests Past 24 Hrs 06/20/19 06/21/19 06/21/19 21:42 03:22 03:22 WBC 4.8 RBC 3.39 L Hgb 8.9 L Hct 28.1 L MCV 82.9 MCH 26.3 L MCHC 31.7 L RDW Std Deviation 51.6 H RDW Coeff of Kit 17.0 H Plt Count 149 L MPV 10.3 Immature Gran % (Auto) 0.200 Neut % (Auto) 38.6 L Lymph % (Auto) 50.[address] [place] % (Auto) 8.6 Eos % (Auto) 1.9 Baso % (Auto) 0.6 Absolute Neuts (auto) 1.8 L Absolute Lymphs (auto) 2.39 Nucleated RBC % 0 D-Dimer Quant (PE/DVT) Sodium Potassium Chloride Carbon Dioxide Anion Gap BUN Creatinine Estim Creat Clear Calc Est GFR (MDRD) Af Amer Est GFR (MDRD) Non-Af BUN/Creatinine Ratio Glucose Calcium Troponin I < 0.015 < 0.015 06/21/19 06/21/19 03:22 10:50 WBC RBC Hgb Hct MCV MCH MCHC RDW Std Deviation RDW Coeff of Kit Plt Count MPV Immature Gran % (Auto) Neut % (Auto) Lymph % (Auto) [place] % (Auto) Eos % (Auto) Baso % (Auto) Absolute Neuts (auto) Absolute Lymphs (auto) Nucleated RBC % D-Dimer Quant (PE/DVT) 1.09 H* Sodium 135 L Potassium 4.2 Chloride 106 Carbon Dioxide 23.0 Anion Gap 6 BUN 10 Creatinine 0.82 Estim Creat Clear Calc 61.43 Est GFR (MDRD) Af Amer 91 Est GFR (MDRD) Non-Af 75 BUN/Creatinine Ratio 12.2 Glucose 82 Calcium 8.0 L Troponin I Code Visit OBSV E&M: [id number] Observation care discharge
== END 2019-06-21 18:32 | disposition home health service (06) ==
LOC: ED 20:14 → PCU 23:26
PROVIDERS: Admitting Provider Student in an Organized Health Care Education/Training Program; Emergency Provider Emergency Medicine; Family Provider Family Medicine; PCP Family Medicine; Referring Provider Student in an Organized Health Care Education/Training Program; Visit Provider Internal Medicine
DX: R07.9 Chest pain, unspecified (principal); I25.10 Atherosclerotic heart disease of native coronary artery without angina pectoris; I12.9 Hypertensive chronic kidney disease with stage 1 through stage 4 chronic kidney disease, or unspecified chronic kidney disease; N18.3 Chronic kidney disease, stage 3 (moderate); J44.9 Chronic obstructive pulmonary disease, unspecified; E78.5 Hyperlipidemia, unspecified; R91.1 Solitary pulmonary nodule; N31.9 Neuromuscular dysfunction of bladder, unspecified; I34.1 Nonrheumatic mitral (valve) prolapse; I73.9 Peripheral vascular disease, unspecified; F17.210 Nicotine dependence, cigarettes, uncomplicated; R33.9 Retention of urine, unspecified; I49.3 Ventricular premature depolarization; Z79.899 Other long term (current) drug therapy; E87.1 Hypo-osmolality and hyponatremia; K21.9 Gastro-esophageal reflux disease without esophagitis; F32.9 Major depressive disorder, single episode, unspecified; R05 Cough; G47.33 Obstructive sleep apnea (adult) (pediatric); I25.2 Old myocardial infarction; Z95.1 Presence of aortocoronary bypass graft
CPT/HCPCS: 36415; 71045; 78582; 80048; 84484; 85025; 85379; 85730; 93005; 93459; 93970; 94640; 96361; 96374; 96376; 99152; 99153; 99218; 99285; 99406; A9540; A9567; J7030; Q9967; A4216; C1769; C1894; G0378

== ENCOUNTER → 2019-07-23 | Outpatient (CLI) | payer MEDICARE, SELFPAY ==
[2018-03-13 08:23] VITALS: BMI 26.6
[2019-07-18 12:57] VITALS: BMI 25.0
--- NOTE | 2019-07-23 10:52 | ART_ITS ---
Reason For Study: Claudication Procedure A bilateral lower extremity continuous wave Doppler with analog waveform analysis and ankle brachial indexes. Left Segmental Pressures Left brachial= 139mmHg. Left posterior tibial artery = 118mmHg. Left dorsalis pedis artery = 122mmHg. The left posterior tibial artery waveforms are biphasic. The left dorsalis pedis waveforms are biphasic. Right Segmental Pressures Right brachial= 131mmHg. Right posterior tibial artery = 173mmHg. Right dorsalis pedis artery = 148mmHg. The right posterior tibial artery waveforms are triphasic. The right dorsalis pedis waveforms are triphasic. Indices The right ankle brachial index by the posterior tibial artery is 1.24. The right ankle brachial index by the dorsalis pedis is 1.06. The left ankle brachial index by the posterior tibial artery is 0.85. The left ankle brachial index by the dorsalis pedis is 0.88. Interpretation Summary 1. right leg wth no evidence of occlussive disease at rest wiht triphasic flow and SAMMI 1.24. 2. Left leg wiht mild occlussive disease and biphasic flow and SAMMI 0.88. Ordering Physician: Nohemy Valles Referring Physician: Nohemy Valles Performed By: Fawn Stevenson RDCS/RVT
== END | disposition home or self-care (01) ==
LOC: CVS 10:50
PROVIDERS: Family Provider Family Medicine; PCP Family Medicine; Referring Provider Physician Assistant Medical; Visit Provider Physician Assistant Medical
DX: I73.9 Peripheral vascular disease, unspecified (principal)
CPT/HCPCS: 93922

== ENCOUNTER → 2019-08-09 | Outpatient (CLI) | payer MEDICARE, SELFPAY ==
[2018-03-13 08:23] VITALS: BMI 26.6
[2019-07-18 12:57] VITALS: BMI 25.0
[2019-08-09 10:00] LABS: Hematocrit 34.9 % (37-47); Hemoglobin 10.7 g/dL (12.0-15.0); Mean Corp Hgb Conc 30.7 g/dL (32-36); Mean Corpuscular Hgb 25.7 pg (27.0-32.0); Mean Corpuscular Volume 83.9 fL (81-99); Mean Platelet Vol. 10.1 fl (6.2-12.0); Platelet Count 195 K/mm3 (150-450); RBC Distribution Width CV 17.7 % (11.6-14.6); RBC Distribution Width SD 54.6 fl (35.1-43.9); Red Blood Count 4.16 M/mm3 (4.2-5.4); White Blood Count 5.2 K/mm3 (4.4-11.0)
[2019-08-09 10:33] LABS: ALB/GLOB Ratio 0.8 RATIO (0.9-2.4); AST(SGOT) 35 U/L (15-37); Alanine Aminotransfer ALT/SGPT 39 U/L (13-56); Albumin, Serum 3.1 g/dL (3.2-5.0); Alkaline Phosphatase 64 U/L (45-117); Anion Gap 5 (5-15); BUN 5 mg/dL (7-18); BUN/Creat Ratio 5.2 RATIO (10-20); Calcium,Total 8.6 mg/dL (8.5-10.1); Chloride 108 mmol/L (98-107); Creatinine, Serum 0.97 mg/dL (0.55-1.02); EST Glomerular Filtration Rate 62 mL/min (>60); Est Glom Filt Rate - Afr Amer 75 mL/min (>60); Ferritin 11 ng/mL (8-252); Glucose 130 mg/dL (74-106); Iron 23 ug/dL (50-170); Iron Binding Capacity,Total 443 ug/dL (250-450); PERCENT IRON SATURATION 5.2 % (15.0-55.0); Potassium 4.4 mmol/L (3.5-5.1); Protein, Total 7.1 g/dL (6.4-8.2); Sodium Level 139 mmol/L (136-145)
[2019-08-09 10:38] LABS: BNP,B-Type NATRIURETIC PEPTIDE 482.6 pg/mL (0-100)
== END | disposition home or self-care (01) ==
LOC: MFPLAB 09:11
PROVIDERS: Family Provider Family Medicine; PCP Family Medicine; Referring Provider Family Medicine; Visit Provider Family Medicine
DX: D64.9 Anemia, unspecified (principal); R06.00 Dyspnea, unspecified; E87.1 Hypo-osmolality and hyponatremia; I25.10 Atherosclerotic heart disease of native coronary artery without angina pectoris
CPT/HCPCS: 36415; 80053; 82728; 83540; 83550; 83880; 85027

== ENCOUNTER → 2019-08-28 | Outpatient (CLI) | payer MEDICARE, SELFPAY ==
[2018-03-13 08:23] VITALS: BMI 26.6
[2019-07-18 12:57] VITALS: BMI 25.0
--- NOTE | 2019-08-28 11:22 | RAD_ITS ---
STUDY: X-RAY CHEST REASON FOR EXAM: Female, 64 years old. Chronic airway disease. TECHNIQUE: PA and lateral views of the chest. COMPARISON: Comparison is made with prior study dated June 20, 2019. FINDINGS: The lungs are clear and expanded. There is no demonstrated pleural abnormality. Sternal cerclage wires and vascular clips are present from a prior sternotomy and coronary artery bypass graft procedure (CABG). Mild cardiomegaly. Normal mediastinum and jenna. Normal visualized pulmonary arteries. There is atherosclerotic calcification of the aortic arch with tortuosity. There is demineralization of the osseous structures. Prior fusion in the lower cervical spine. There is no demonstrated abnormality of the visualized soft tissue structures of the upper abdomen. RAD/Chest PA and Lateral IMPRESSION: Mild cardiomegaly. Prior CABG. No acute abnormality is seen. Electronically Signed: Db Bach, at 12:20 EDT , Service support ,
[2019-08-28 12:23] LABS: Absolute Lymphocyte Count 2.21 X10^3/uL (0.83-4.51); Absolute Neutrophil Count 2.6 X10^3/uL (2.0-7.7); Basophil# 0.03 X10^3/uL; Basophil% 0.6 % (0-1); Eosinophil# 0.08 X10^3/uL; Eosinophils% 1.5 % (0-5); Hematocrit 33.4 % (37-47); Hemoglobin 10.3 g/dL (12.0-15.0); Lymphocyte # 2.21 X10^3/ul (4.0); Lymphocyte % 41.7 % (19-41); Mean Corp Hgb Conc 30.8 g/dL (32-36); Mean Corpuscular Hgb 25.9 pg (27.0-32.0); Mean Corpuscular Volume 83.9 fL (81-99); Mean Platelet Vol. 10.6 fl (6.2-12.0); Monocyte# 0.37 X10^3/uL; NRBC Flagged by Analyzer 0 % (0-5); Neutrophil # 2.59 X10^3/uL (2.7-7.7); Neutrophil % 48.8 % (47-70); Platelet Count 218 K/mm3 (150-450); RBC Distribution Width CV 18.6 % (11.6-14.6); RBC Distribution Width SD 55.6 fl (35.1-43.9); Red Blood Count 3.98 M/mm3 (4.2-5.4); White Blood Count 5.3 K/mm3 (4.4-11.0)
[2019-08-28 12:38] LABS: ALB/GLOB Ratio 0.8 RATIO (0.9-2.4); AST(SGOT) 24 U/L (15-37); Alanine Aminotransfer ALT/SGPT 27 U/L (13-56); Albumin, Serum 3.3 g/dL (3.2-5.0); Alkaline Phosphatase 67 U/L (45-117); Anion Gap 5 (5-15); BUN 9 mg/dL (7-18); BUN/Creat Ratio 8.3 RATIO (10-20); Calcium,Total 8.6 mg/dL (8.5-10.1); Chloride 103 mmol/L (98-107); Creatinine, Serum 1.09 mg/dL (0.55-1.02); EST Glomerular Filtration Rate 54 mL/min (>60); Est Glom Filt Rate - Afr Amer 65 mL/min (>60); Globulin 4.4 g/dL (2.2-4.2); Glucose 97 mg/dL (74-106); Potassium 4.1 mmol/L (3.5-5.1); Protein, Total 7.7 g/dL (6.4-8.2); Sodium Level 135 mmol/L (136-145)
[2019-08-28 12:54] LABS: BNP,B-Type NATRIURETIC PEPTIDE 325.1 pg/mL (0-100)
== END | disposition home or self-care (01) ==
LOC: MTLAB 11:20
PROVIDERS: Family Provider Family Medicine; PCP Family Medicine; Referring Provider Family Medicine; Visit Provider Family Medicine
DX: R05 Cough (principal); I25.10 Atherosclerotic heart disease of native coronary artery without angina pectoris; J44.9 Chronic obstructive pulmonary disease, unspecified
CPT/HCPCS: 36415; 71046; 80053; 83880; 85025

== ENCOUNTER 2019-10-18 05:59 | Day surgery (SDC) | payer MEDICARE, SELFPAY ==
[2018-03-13 08:23] VITALS: BMI 26.6
[2019-06-20 21:32] VITALS: BMI 24.7
[2019-07-18 12:57] VITALS: BMI 25.0
[2019-10-18 06:20] VITALS: BP 102/81; PULSE 69; RESP 14; TEMP 36.1; O2SAT 97; BMI 24.5
--- NOTE | 2019-10-18 06:36 | PCM.HP.BLA ---
History and Physical Date of Admission: 10/18/19 HISTORY AND PHYSICAL ? Haleigh Banda 1955 ? REFERRING PHYSICIAN: ??Self, ? CHIEF COMPLAINT: ??Established Patient (update H&P Colonoscopy) ? HPI: The patient is a 64 year old female referred for endoscopy?due to heme positive stool. ?The patient was actually evaluated in July 2019, per my note at that time: ? The patient is a 64 year old female referred for endoscopy. ?Haleigh notes she had an iFOBT done through her insurance which was positive for occult blood.??She was recently evaluated by her primary care physician and is referred here for endoscopy.??Patient denies any change in bowel habits, weight changes,?visible?blood in stools, black tarry stools or abdominal pain.??NOTES father had colon cancer.?The patient notes?some recent nausea.??Haleigh?has??undergone prior endoscopy, most recently in February [address] Berger with no concerning findings at that time. ? Patient was recently hospitalized at [facility] in June 2019 with complaints of chest pain and dyspnea on exertion. ?Patient has a prior history of coronary artery disease and is s/p CABG/PCI. ?Patient had EKG which showed no ST changes, and had negative troponins. ??Cardiology was consulted during her hospitalization and she had a heart cath 06/21/19, did not require further intervention at that time. ?She was noted to have an elevated d-dimer during her hospitalization, ?Had a VQ scan which was normal. ?She was discharged and instructed to follow up with primary care and cardiology. Patient follows with Dr. Odom for her chronic medical conditions. ?Patient denies any further complaints since her hospital discharge. ?She has a cardiology appointment scheduled for later today. ?She is maintained on Plavix and aspirin. ?Other past medical history significant for melanoma on arm, prior history of GERD, sleep apnea, mitral valve insufficiency, peripheral vascular disease. ? Patient was previously scheduled to have colonoscopy and EGD in August, and then patient rescheduled procedure for September but had to cancel due to an upper respiratory infection. ?Patient presents today to update H&P and reschedule procedures. ?She notes she is feeling much better and denies any shortness of breath, only some residual dry cough of which her PCP is aware. ?She notes no new GI complaints since last visit. ? ? She notes significant anxiety regarding the procedure as I was awake and felt everything last time when her procedure was done with conscious sedation. ? PAST MEDICAL HISTORYExpand by Default PAST MEDICAL HISTORY Diagnosis Date ? Adjustment disorder with depressed mood ? ? Chronic airway obstruction, not elsewhere classified ? ? Coronary artery disease ? ? Coronary atherosclerosis of unspecified type of vessel, [place] or graft ? ? Dyslipidemia ? ? Esophageal reflux ? ? Gastroesophageal reflux ? Malignant melanoma of skin of upper limb, including shoulder (HCC) 2007 ? right arm ? Obstructive sleep apnea ? ? Peripheral vascular disease (HCC) ? ? PMH - PAST MEDICAL HISTORY OF ? ? low back DDD- in pain management ? PAST SURGICAL HISTORY PAST SURGICAL HISTORY Procedure Laterality Date ? APPENDECTOMY ? ? ? BLADDER SURGERY HX ? ? ? CABG, ARTERY-VEIN, THREE ? 2003 ? CABG, three grafts ? COLONOSCOPY W/BX ? 02-16-13 ? needs repeat in 5 years, high risk d/t family history ? CORONARY ARTERY BYPASS GRAFT ? ? ? triple bypass 2006. ??hx of 7 heart stents - last placed 05/18 ? EGD W/O OR W/BRUSH/WASH ? [facility] ? HEM[facility]HOID;BAND LIGAT, SNGL/MUL ? ? ? Hemorrhoidectomy ? INT REPAIR SCALP,JEISON,TRUNK 2.6-7.5CM ? 08-07-08 ? RIGHT UPPER ARM ? LAPAROSCOPIC CHOLEYCYSTECTOMY ? 1996 ? Cholecystectomy, lap ? MAL LESION TRUNK,ARM,LEG 2.1-3.0 CM ? 08-07-08 ? RIGHT UPPER ARM ? PART REMOVAL COLON W ANASTOMOSIS ? 1995 ? Hemicolectomy/OBSTRUCTION ? PAST SURGICAL HISTORY OF ? ? NECK SURGERY WITH PLATE ? PERCUTANEOUS CORONARY INTERVENTION ? ? ? REM LESION FACE,EAR,EYE 2.1-3 CM ? 03-05-13 ? STENT PLACEMENT ? ? ? cardiac stent x7. ?last 08/2012 ? TOTAL ABDOM HYSTERECTOMY ? 1983 ? Hysterectomy, AN ? TRANSCATH STENT ADDN VESSEL,PERCUT ? ? ? Transcath stent addn vessel percut ? UVULECTOMY EXCISION OF UVULA ? CURRENT MEDICATIONS Current Outpatient Medications Medication Sig ? sertraline (ZOLOFT) 25 mg tablet Take 25 mg by mouth once daily. ? isosorbide dinitrate (ISORDIL, SORBITRATE) 30 mg tablet Take 30 mg by mouth once daily. ? ? HYDROmorphone (DILAUDID) 2 mg tablet Take 2 mg by mouth every 8 hours as needed. ? ? LISINOPRIL ORAL Take 5 mg by mouth. ? ? aspirin, enteric coated (ADULT LOW DOSE ASPIRIN) 81 mg EC tablet Take 1 tablet by mouth once daily. ? cyclobenzaprine (FLEXERIL) 10 mg tablet Take 1 tablet by mouth every 8 hours as needed. FOR PAIN OR SPASMS ? traZODone 50 mg tablet Take 1 tablet by mouth daily at bedtime. ? tiotropium bromide(SPIRIVA WITH HANDIHALER 18 MCG & INHALATION CAPS) as necessary ? omeprazole (PRILOSEC) 20 mg ORAL CpDR Take one(1) capsule daily. ? clopidogrel (PLAVIX) 75 mg tablet Take 1 tablet by mouth once daily. ? COQ10, LIPOSOMAL UBIQUINOL, ORAL Take by mouth. ? primidone (MYSOLINE) 50 mg tablet Take 50 mg by mouth daily at bedtime. ? ? cholecalciferol (VITAMIN D-3) 5,000 unit tab Take 5,000 Units by mouth once daily. ? CPAP daily at bedtime. ? clonazePAM 1 mg tablet Take 1 mg by mouth three times daily as needed. ? ? No current facility-administered medications for this visit.? ? ? ALLERGIES:?Atorvastatin; Contrast Dye; Naprosyn [Naproxen]; Tcn [Tetracyclines] ? PERSONAL HISTORY:? SOCIAL HISTORY Social History ? Tobacco Use ? Smoking status: Current Every Day Smoker ? ? Packs/day: 0.50 ? ? Years: 33.00 ? ? Pack years: 16.50 ? ? Types: Cigarettes ? ? Last attempt to quit: 03/07/2007 ? ? Years since quittin.6 ? Smokeless tobacco: Never Used ? Tobacco comment: currently smoking 1/2 ppd Substance Use Topics ? Alcohol use: No ? Drug use: No ?? ? FAMILY HISTORY:? FAMILY HISTORY FAMILY HISTORY Problem Relation Age of Onset ? Cancer Mother ?a. age 73: lung and pancreatic ? Cancer Father ?a. age 76: skin and colon ?alive ? Colon Cancer Father ? ? other (PVD) Father ?s/p leg surgery ? Multiple Sclerosis Sister ? ? REVIEW OF SYSTEMS GENERAL:?No weight loss, malaise or fevers HEENT:?Negative for frequent or significant headaches, No changes in hearing or vision, no nose bleeds or other nasal problems RESPIRATORY:?See HPI CARDIOVASCULAR:?Negative for chest pain, leg swelling, hypertension, CHF or palpitations GI:?No nausea, vomiting, or diarrhea SKIN:?Negative for lesions, rash, and itching ?In addition to above, notes history of occasional PVCs. ?Follows with [facility] ? When was patient's last Mammogram screening? 03/2016 ? ?Last Colonoscopy: ?02/2013 [place] ? ? ? PHYSICAL EXAMINATION: ? General: ?The patient is 64 year old female, well nourished, well hydrated in no acute distress. ?The patient is oriented to time, place, and person. ? VITALS:?Blood pressure 92/60, pulse 65, temperature 36.3 ?C (97.3 ?F), height 162.6 cm (5' 4), weight 64.9 kg (143 lb), SpO2 100 %.?Body mass index is 24.55 kg/m?.? ? HEENT: ?Normal cephalic, ataumatic, pupils are equally round, sclera are anicteric, mucous membranes are moist, oropharynx is clear. ?Neck has no masses, asymmetry or lymphadenopathy. ? ? Respiratory: ?Clear to auscultation and percussion. ?Normal respiratory excursion and pattern. ? Cardiac: ?Examination is regular rate and rhythm. ?Normal S1/S2 ? Abdominal exam: ?Soft, nontender, ?with no palpable masses. ?No hepatosplenomegaly. ?No palpable hernias. ? Extremities: ?no clubbing, cyanosis or edema. ?No adenopathy. ? LABORATORY VALUES: As Noted ? RADIOLOGIC STUDIES: ?As Noted ? ? ? Assessment ? IMPRESSION:?heme positive stool, family history of colon cancer, nausea, s/p CABG, on oral anticoagulation ? PLAN: ?I have reviewed my findings with the surgeon. ?Will plan for upper and lower?endoscopy. ??We discussed the risks and benefits of the planned endoscopy. ?I have informed the patient that complications can occur including failure to complete the endoscopy and perforation. ?The patient had the opportunity to ask questions concerning the planned endoscopy. ?My staff has also explained the procedure to the patient in understandable terms and has given the patient printed material concerning the procedure. ?The patient freely consents to surgery. ? I plan to use?Golytely?bowel preparation-patient has Rx ? Patient to remain on her routine medications including her anticoagulation for the procedure, per Dr. Katz ? The patient has medical comorbidities for which we will plan for the procedure to be performed under Monitored Anesthetic Care.?Patient also had recall from prior colonoscopy and very anxious about endoscopy ? ? Diagnoses:?(R19.5) Heme positive stool ?(primary encounter diagnosis) (R11.0) Nausea (Z80.0) Family history of colon cancer (Z95.1) S/P CABG (coronary artery bypass graft) (Z79.01) On continuous oral anticoagulation ? ? Kaylyn Ortiz PA-C
[2019-10-18] MEDS: Lactated Ringers 1,000 ML 100 ML IV (06:51)
--- NOTE | 2019-10-18 07:00 | IMM_PTH ---
PATIENT: TEODORO ALMEIDA LOC: EN U#:[id number] AGE/SX: 64/F ROOM: RE10/18/[address]: Dr. Angel Katz MD : 1955 BED: DIS: 10/18/2019 SPEC #: [id number] RECD: 10/18/19 12:03 STATUS: TEETEE REQ #: [id number] RADHA: 10/18/19 07:[address]: Angel Katz DEPT: IMMUNOHISTOCHEMISTRY RECD BY: Corine Lance ENTERED: 10/18/19 12:03 SP TYPE: IMMUNO OTHR DR: Dr. Sen Odom MD Tissues: A - Stomach, NOS Procedures: H Pylori (initial) PHYSICIAN & INSTITUTION [place] [id number] SPECIMEN INFORMATION: Tissue Source: A - Antral biopsy Clinical Info: Heme-positive stool Specimen Number: [id number] CPT code: 61172 METHODOLOGY: Deparaffinized sections of prefer/formalin-fixed tissue or PAP/DQ stained slides are incubated with monoclonal/polyclonal antibodies/oligonucleotide probes. Localization is made via biotin free immunoperoxidase method. Appropriate controls are performed and reacted as expected. Results on target cell population are indicated in the following table: RESULTS: ANTIBODY / CLONE RESULT Block A H Pylori (polyclonal) negative These tests were developed and their performance characteristics determined by [facility]. They may not have been cleared or approved by the U.S. Food and Drug Administration. The FDA has determined that such clearance or approval is not necessary. INTERPRETATION: A. Antral biopsy: Negative for Helicobacter pylori organisms. SJ:lala 10/19/19
--- NOTE | 2019-10-18 07:00 | EGD_PTH ---
PATIENT: TEODORO ALMEIDA LOC: EN U#:[id number] AGE/SX: 64/F ROOM: RE10/18/[address]: Dr. Angel Katz MD : 1955 BED: DIS: 10/18/2019 SPEC #: [id number] RECD: 10/18/19 07:55 STATUS: TEETEE RETerry #: [id number] RADHA: 10/18/19 07:[address]: Angel Katz DEPT: SURGICAL PATHOLOGY RECD BY: Zachary Del Toro ENTERED: 10/18/19 10:07 SP TYPE: EGD BIOPSY OT DR: Dr. Sen Odom MD Tissues: A - Gastric mucous membrane B - Sigmoid colon biopsy Procedures: Surgery Specimen Level IV HEADER OPERATION: Colonoscopy, EGD ([facility]) PRE-OP DIAGNOSIS: Heme-positive stool TISSUE SUBMITTED: A - Antral biopsy for H. pylori and path, B - Sigmoid random biopsy MICROSCOPIC DIAGNOSIS A. Antral biopsy: Mild gastritis. See microscopic description and comment. B. Sigmoid, random biopsy: Fragments of colonic mucosa with pigment laden macrophages, consistent with melanosis coli. ELENA:lala 10/19/19 COMMENT A. The results of immunohistochemistry for Helicobacter pylori will be reported separately ([id number]). MICROSCOPIC DESCRIPTION Slides are reviewed. A. The specimen shows fragments of gastric mucosa with chronic inflammatory cell infiltrates in the lamina propria consisting of lymphocytes and plasma cells, consistent with mild chronic gastritis. GROSS DESCRIPTION A - Received in fixative is one container labeled with the patient's name and designated antral biopsy. The specimen consists of one irregular fragment of light vu soft tissue that measures 0.4 x 0.3 x 0.1 cm. The specimen is totally submitted in one cassette. B - Received in fixative is one container labeled with the patient's name and designated sigmoid random biopsy. The specimen consists of two irregular fragments of light vu soft tissue that in aggregate measure 0.3 x 0.3 x 0.1 cm. The specimen is totally submitted in one cassette. / ELENA:lala 10/18/19 TC:3 CPT: 73750 x2
[2019-10-18 07:40] VITALS: BP 102/81; BP 117/63; PULSE 54; RESP 16; TEMP 37.1; O2SAT 97
--- NOTE | 2019-10-18 07:40 | OP.EGD_ITS ---
Patient Name: Haleigh Banda Procedure Date: 10/18/2019 6:57 AM Date of : 1955 Age: 64 Procedure: Upper GI endoscopy Indications: Heme positive stool Providers: Angel Katz MD Referring MD: Phani Odom Medicines: Monitored Anesthesia Care Patient Profile: This is a 64 year old female. Refer to note in patient chart for documentation of history and physical. Complications: No immediate complications. Procedure: Pre-Anesthesia Assessment: - Prior to the procedure, a History and Physical was performed, and patient medications and allergies were reviewed. The patient is competent. The risks and benefits of the procedure and the sedation options and risks were discussed with the patient. All questions were answered and informed consent was obtained. Patient identification and proposed procedure were verified by the physician, the nurse and the case aide in the procedure room. Mental Status Examination: alert and oriented. Airway Examination: normal oropharyngeal airway and neck mobility. Respiratory Examination: clear to auscultation. CV Examination: normal. Prophylactic Antibiotics: The patient does not require prophylactic antibiotics. Prior Anticoagulants: The patient has taken Plavix (clopidogrel), last dose was 1 day prior to procedure. ASA Grade Assessment: III - A patient with severe systemic disease. After reviewing the risks and benefits, the patient was deemed in satisfactory condition to undergo the procedure. The anesthesia plan was to use monitored anesthesia care (MAC). Immediately prior to administration of medications, the patient was re-assessed for adequacy to receive sedatives. The heart rate, respiratory rate, oxygen saturations, blood pressure, adequacy of pulmonary ventilation, and response to care were monitored throughout the procedure. The physical status of the patient was re-assessed after the procedure. After obtaining informed consent, the endoscope was passed under direct vision. Throughout the procedure, the patient's blood pressure, pulse, and oxygen saturations were monitored continuously. The gastroscope was introduced through the mouth, and advanced to the jejunum. The upper GI endoscopy was accomplished without difficulty. The patient tolerated the procedure well. Scope In: 7:14:49 AM Scope Out: 7:17:33 AM Total Procedure Duration Time 0 hours 2 minutes 44 seconds Findings: The examined jejunum was normal. The examined duodenum was normal. Scattered minimal inflammation characterized by erythema was found in the gastric antrum. Biopsies were taken with a cold forceps for histology. The examined esophagus was normal. Impression: - Normal examined jejunum. - Normal examined duodenum. - Gastritis. Biopsied. - Normal esophagus. Recommendation: - Discharge patient to home. - Resume previous diet. - Continue present medications. - Await pathology results. - Return to physician costumer assistant in 1 week. Procedure Code(s): --- Professional --- 76866, Esophagogastroduodenoscopy, flexible, transoral; with biopsy, single or multiple CPT copyright 2017 [employer]. All rights reserved. The codes documented in this report are preliminary and upon door closer mechanic review may be revised to meet current compliance requirements. Angel Katz MD 10/18/2019 7:39:43 AM This report has been signed electronically. Number of Addenda: 0 Note Initiated On: 10/18/2019 6:57 AM
--- NOTE | 2019-10-18 07:41 | OP.COLON_ITS ---
Patient Name: Haleigh Banda Procedure Date: 10/18/2019 7:20 AM Date of : 1955 Age: 64 Procedure: Colonoscopy Indications: Heme positive stool Providers: Angel Katz MD Referring MD: Phani Odom Medicines: Monitored Anesthesia Care Patient Profile: This is a 64 year old female. Refer to note in patient chart for documentation of history and physical. Last Colonoscopy: several years ago. Complications: No immediate complications. Procedure: Pre-Anesthesia Assessment: - Prior to the procedure, a History and Physical was performed, and patient medications and allergies were reviewed. The patient is competent. The risks and benefits of the procedure and the sedation options and risks were discussed with the patient. All questions were answered and informed consent was obtained. Patient identification and proposed procedure were verified by the physician, the nurse and the multiple sclerosis nurse in the procedure room. Mental Status Examination: alert and oriented. Airway Examination: normal oropharyngeal airway and neck mobility. Respiratory Examination: clear to auscultation. CV Examination: normal. Prophylactic Antibiotics: The patient does not require prophylactic antibiotics. Prior Anticoagulants: The patient has taken Plavix (clopidogrel), last dose was 1 day prior to procedure. ASA Grade Assessment: III - A patient with severe systemic disease. After reviewing the risks and benefits, the patient was deemed in satisfactory condition to undergo the procedure. The anesthesia plan was to use monitored anesthesia care (MAC). Immediately prior to administration of medications, the patient was re-assessed for adequacy to receive sedatives. The heart rate, respiratory rate, oxygen saturations, blood pressure, adequacy of pulmonary ventilation, and response to care were monitored throughout the procedure. The physical status of the patient was re-assessed after the procedure. After I obtained informed consent, the scope was passed under direct vision. Throughout the procedure, the patient's blood pressure, pulse, and oxygen saturations were monitored continuously. The adult colonoscope was introduced through the anus and advanced to the cecum, identified by the appendiceal orifice, ileocecal valve and palpation. The colonoscopy was performed without difficulty. The patient tolerated the procedure well. The quality of the bowel preparation was good. Scope In: 7:22:04 AM Scope Withdrawal Time 0 hours 6 minutes 25 seconds Scope Out: 7:34:01 AM Total Procedure Duration Time 0 hours 11 minutes 57 seconds Findings: The perianal and digital rectal examinations were normal. The entire examined colon appeared normal on direct and retroflexion views. The sigmoid colon appeared normal. Biopsies for histology were taken with a cold forceps from the sigmoid colon for evaluation of microscopic colitis. Impression: - The entire examined colon is normal on direct and retroflexion views. - The sigmoid colon is normal. Biopsied. Recommendation: - Discharge patient to home. - Resume previous diet. - Continue present medications. - Await pathology results. - Return to physician assistant banquet manager in 1 week. - Repeat colonoscopy is recommended. The colonoscopy date will be determined after pathology results from today's exam become available for review. Procedure Code(s): --- Professional --- 05838, Colonoscopy, flexible; with biopsy, single or multiple CPT copyright 2017 [employer]. All rights reserved. The codes documented in this report are preliminary and upon new client banking services clerk review may be revised to meet current compliance requirements. Angel Katz MD 10/18/2019 7:41:37 AM This report has been signed electronically. Number of Addenda: 0 Note Initiated On: 10/18/2019 7:20 AM
[2019-10-18 07:45] VITALS: BP 100/73; BP 102/81; PULSE 58; RESP 18; O2SAT 96
[2019-10-18 07:50] VITALS: BP 102/81; BP 96/67; PULSE 56; RESP 18; O2SAT 96
[2019-10-18 07:55] VITALS: BP 102/81; BP 109/72; PULSE 55; RESP 16; TEMP 36.3; O2SAT 97
[2019-10-18 08:55] VITALS: BP 102/81
== END 2019-10-18 09:03 | disposition home or self-care (01) ==
LOC: EN 05:59 → AC 06:00
PROVIDERS: Family Provider Family Medicine; PCP Family Medicine; Referring Provider Family Medicine; Visit Provider Surgery
PROC: 0DJD8ZZ Inspection of Lower Intestinal Tract, Via Natural or Artificial Opening Endoscopic (ICD-10-PCS; CPT 45378; principal; 2019-10-18 06:55)
DX: K29.70 Gastritis, unspecified, without bleeding (principal); R19.5 Other fecal abnormalities; K21.9 Gastro-esophageal reflux disease without esophagitis; Z80.0 Family history of malignant neoplasm of digestive organs; I25.10 Atherosclerotic heart disease of native coronary artery without angina pectoris; I34.0 Nonrheumatic mitral (valve) insufficiency; I73.9 Peripheral vascular disease, unspecified; F43.21 Adjustment disorder with depressed mood; F41.9 Anxiety disorder, unspecified; J44.9 Chronic obstructive pulmonary disease, unspecified; F32.9 Major depressive disorder, single episode, unspecified; E78.5 Hyperlipidemia, unspecified; G47.33 Obstructive sleep apnea (adult) (pediatric); F17.210 Nicotine dependence, cigarettes, uncomplicated; Z79.899 Other long term (current) drug therapy; Z79.02 Long term (current) use of antithrombotics/antiplatelets; Z95.1 Presence of aortocoronary bypass graft; Z79.82 Long term (current) use of aspirin; Z85.820 Personal history of malignant melanoma of skin
CPT/HCPCS: 43239; 45380; 88305; 88342; J7120; J2405

== ENCOUNTER → 2020-05-13 | Outpatient (CLI) | payer BC, MEDICARE, SELFPAY ==
[2018-03-13 08:23] VITALS: BMI 26.6
[2020-05-13 17:44] LABS: Erythrocyte Sedimentation Rate 35 mm/hr (0-30)
[2020-05-13 18:01] LABS: Vitamin B12 649 pg/mL (211-911)
[2020-05-13 18:09] LABS: Ferritin 17 ng/mL (8-252); Iron 40 ug/dL (50-170); Thyroid Stim Hormone (TSH) 1.87 uIU/mL (0.358-3.74)
[2020-05-14 09:19] LABS: Absolute Lymphocyte Count 2.29 X10^3/uL (0.83-4.51); Absolute Neutrophil Count 2.6 X10^3/uL (2.0-7.7); Basophil# 0.05 X10^3/uL; Basophil% 0.9 % (0-1); Eosinophil# 0.09 X10^3/uL; Eosinophils% 1.7 % (0-5); Hematocrit 36.8 % (37-47); Hemoglobin 11.6 g/dL (12.0-15.0); Lymphocyte # 2.29 X10^3/ul (4.0); Lymphocyte % 42.7 % (19-41); Mean Corp Hgb Conc 31.5 g/dL (32-36); Mean Corpuscular Hgb 26.5 pg (27.0-32.0); Mean Corpuscular Volume 84.2 fL (81-99); Monocyte# 0.29 X10^3/uL; Monocyte% 5.4 % (0-10); NRBC Flagged by Analyzer 0 % (0-5); Neutrophil # 2.63 X10^3/uL (2.7-7.7); Neutrophil % 49.1 % (47-70); Platelet Count 244 K/mm3 (150-450); RBC Distribution Width CV 16.1 % (11.6-14.6); RBC Distribution Width SD 49.1 fl (35.1-43.9); Red Blood Count 4.37 M/mm3 (4.2-5.4); White Blood Count 5.4 K/mm3 (4.4-11.0)
[2020-05-14 09:29] LABS: ALB/GLOB Ratio 0.9 RATIO (0.9-2.4); AST(SGOT) 28 U/L (15-37); Alanine Aminotransfer ALT/SGPT 33 U/L (13-56); Albumin, Serum 3.8 g/dL (3.2-5.0); Alkaline Phosphatase 98 U/L (45-117); Anion Gap 10 (5-15); BUN 11 mg/dL (7-18); BUN/Creat Ratio 10.5 RATIO (10-20); Calcium,Total 8.8 mg/dL (8.5-10.1); Chloride 99 mmol/L (98-107); Creatinine, Serum 1.05 mg/dL (0.55-1.02); EST Glomerular Filtration Rate 56 mL/min (>60); Est Glom Filt Rate - Afr Amer 68 mL/min (>60); Globulin 4.3 g/dL (2.2-4.2); Glucose 91 mg/dL (74-106); Potassium 4.3 mmol/L (3.5-5.1); Protein, Total 8.1 g/dL (6.4-8.2); Sodium Level 133 mmol/L (136-145)
[2020-05-14 09:41] LABS: BNP,B-Type NATRIURETIC PEPTIDE 338.2 pg/mL (0-100)
== END | disposition home or self-care (01) ==
LOC: MFPLAB 14:09
PROVIDERS: PCP Family Medicine; Visit Provider Family Medicine
DX: I25.10 Atherosclerotic heart disease of native coronary artery without angina pectoris (principal); R25.1 Tremor, unspecified; K21.9 Gastro-esophageal reflux disease without esophagitis
CPT/HCPCS: 36415; 80053; 82607; 82728; 83540; 83880; 84443; 85025; 85652

== ENCOUNTER → 2020-08-01 | Outpatient (CLI) | payer BC, SELFPAY ==
[2018-03-13 08:23] VITALS: BMI 26.6
--- NOTE | 2020-08-01 16:05 | RAD_ITS ---
STUDY: X-RAY - LEFT ANKLE REASON FOR EXAM: Female, 65 years old. left ankle pain since last night, no injury TECHNIQUE: 3 view(s) of the ankle. COMPARISON: None. FINDINGS: Normal visualized distal tibia and fibula. Normal medial and lateral malleoli. Normal tibiotalar articulation and ankle mortise. Normal visualized talus and calcaneus. The visualized subtalar, talonavicular, calcaneocuboid and tarsal articulations are normal. There is no demonstrated fracture. Several vascular clips are seen along the lateral ankle, otherwise the soft tissue structures are unremarkable. RAD/Ankle min 3 Views IMPRESSION: No definite acute or significant abnormality seen. Electronically Signed: Nas Montes De Oca MD at 23:36 EDT , Service support ,
== END | disposition home or self-care (01) ==
LOC: MTRAD 16:04
PROVIDERS: PCP Family Medicine; Referring Provider Family Medicine; Visit Provider Family Medicine
DX: M25.572 Pain in left ankle and joints of left foot (principal)
CPT/HCPCS: 73610

== ENCOUNTER 2020-08-05 08:07 | Day surgery (SDC) | payer MEDICARE, SELFPAY ==
[2018-03-13 08:23] VITALS: BMI 26.6
[2020-08-05] VITALS (7 sets, daily range): BP systolic 94–126; BP diastolic 46–93; PULSE 54–73; RESP 16–20; TEMP 36.3–36.6; O2SAT 97–100; BMI 24.9
[2020-08-05] MEDS: Lactated Ringers 1,000 ML 75 ML IV (08:56)
[2020-08-05] MEDS: Vancomycin IV 1,000 MG/200 ML BAG 200 MG IV (09:00)
--- NOTE | 2020-08-05 09:14 | PCM.OPRPT ---
Problem List (1) Low back pain Status: Acute (2) Urinary retention Status: Chronic (3) Neurogenic bladder Status: Chronic Report of Operation Date of Procedure: 08/05/20 Pre-Operative Diagnosis: neurogenic bladder, urinary retention, back pain Post-Operative Diagnosis: same Surgery/Procedure Performed:: Interstim pocket revision Type of Anesthesia:: MAC/Supplemental/Local Specimen's removed: none Estimated Blood Loss (mL): 2cc Description of Procedure: The patient is a 65-year-old female with neurogenic bladder and urinary retention who had a InterStim inserted. She is having significant pain at the back site. The IPG had warmth into her skin and it was causing significant discomfort with sitting and daily activities. After discussing the risk benefits and alternatives including that of COVID-19, informed consent was obtained and she desired to proceed with pocket revision. Patient was taken to the operating room and placed in a prone position on the operating room table. She was appropriately padded and secured to the table. Anesthesia monitored head, neck, airway, IV access and vital signs throughout the case. Once anesthesia was appropriately administered the patient was prepped and draped in usual sterile fashion. The incision was infiltrated with 1% lidocaine with epinephrine. The skin incision was reopened with a knife and sharp dissection was performed down to the pocket site which was opened carefully with avoidance of the wire. At this time the posterior pocket was incised and a new deeper pocket site was formed. Hemostasis was achieved with cautery. Is minimal amount of cautery as possible was used. The IPG was placed into the new pocket and was closed in layers using 3-0 interrupted Vicryl. The skin was closed using 4-0 subcuticular suturing. Dermabond was placed on the skin incision. Patient was then awakened and taken to the recovery room in good condition. There were no complications during this procedure. Grafts/Implants Used: none - Complications none - Admit VTE Documentation VTE Present on Admission: Yes VTE Mechan Device Prophylaxis: SCD's VTE Pharm Prophylaxis ordered?: Yes
--- NOTE | 2020-08-05 09:16 | DCINST_ITS ---
Discharge Diet: No Restrictions Discharge Activity: May not drive while taking narcotic pain medications. May resume sexual activity in: 1 week Call your doctor if your incision/area has: Continuous Slow Oozing, Sudden Increased Bleeding, Increased Pain/ Swelling, Increased Redness, Foul Smelling Discharge, Swelling at the incision site Call your doctor if you observe: Fever of 101 or Higher, Inability to urinate, Inability to have a bowel movement Allergies/Adverse Reactions: Allergies Iodinated Contrast Media [Iodinated Contrast Media - IV Dye] Allergy (Verified 08/05/20 08:30) Other tetracycline [Tetracycline] Allergy (Verified 08/05/20 08:30) Hives pravastatin Adverse Reaction (Intermediate, Verified 08/05/20 08:30) Upset Stomach atorvastatin [From Lipitor] Adverse Reaction (Verified 08/05/20 08:30) myalgia Medications to take at Discharge Omeprazole [Prilosec] 20 mg PO DAILY 02/04/16 nitroglycerin 0.4 mg sublingual tablet 0.4 mg SUBLINGUAL Q5M PRN #25 tab 08/17/18 primidone 50 mg tablet 100 mg PO QHS 30 Days #30 tab 08/17/18 Buspirone HCl 10 mg PO TID 06/20/19 lisinopril 5 mg tablet 5 mg PO DAILY #30 tab 07/18/19 furosemide 20 mg tablet 20 mg PO DAILY tab 08/17/19 Sertraline HCl [Zoloft] 25 mg PO DAILY 10/17/19 clopidogrel 75 mg tablet 75 mg PO DAILY #90 tab 06/09/20 isosorbide mononitrate 30 mg tablet,extended release 24 hr 30 mg PO DAILY #90 tab 06/09/20 metoprolol succinate 25 mg tablet,extended release 24 hr 12.5 mg PO DAILY #45 tab 06/09/20 Albuterol IH (ProAir) [Proair Hfa (SP)Vent Pts] 1 puff INHALATION Q6H PRN PRN 07/28/20 Primary Care Physician: Phani Odom MD [Primary Care Provider] - Test Results: Test results from this visit will be discussed in further detail at your follow- up appointment, if applicable. Please Follow Up With: Sophia Hammer MD When: in 2-3 weeks, call for appt Proposed Discharge Date: 08/05/20
== END 2020-08-05 11:12 | disposition home or self-care (01) ==
LOC: SDC 08:07 → AC 08:07
PROVIDERS: Anesthesiology; PCP Family Medicine; Referring Provider Urology; Visit Provider Urology
PROC: (CPT 17999; principal; 2020-08-05 09:30)
DX: M54.5 Low back pain (principal); N31.9 Neuromuscular dysfunction of bladder, unspecified; R33.9 Retention of urine, unspecified; F17.200 Nicotine dependence, unspecified, uncomplicated; J44.9 Chronic obstructive pulmonary disease, unspecified; I25.2 Old myocardial infarction; K21.9 Gastro-esophageal reflux disease without esophagitis; E78.00 Pure hypercholesterolemia, unspecified; F41.9 Anxiety disorder, unspecified; F32.9 Major depressive disorder, single episode, unspecified; I10 Essential (primary) hypertension; Z95.1 Presence of aortocoronary bypass graft; Z11.59 Encounter for screening for other viral diseases; Z79.02 Long term (current) use of antithrombotics/antiplatelets; Z79.899 Other long term (current) drug therapy
CPT/HCPCS: 00300; 17999; 87635; C9803; J7120; A4216; U0003

== ENCOUNTER → 2020-08-13 | Outpatient (CLI) | payer MEDICARE, SELFPAY ==
[2018-03-13 08:23] VITALS: BMI 26.6
[2020-08-11 10:26] VITALS: BMI 24.9
--- NOTE | 2020-08-13 10:52 | RAD_ITS ---
STUDY: X-RAY LEFT FOOT, THERE TOE REASON FOR EXAM: Female, 65 years old. PAIN IN LEFT 3RD TOE FOR ABOUT 1 YEAR NOW. NO KNOWN INJURY. TECHNIQUE: Or view(s) of the toe were obtained. COMPARISON: Previous study of 02/12/2019 FINDINGS: Normal visualized metatarsus. Normal metatarsophalangeal (M.T.P) joint. There are degenerative changes of the third DIP joint, increased in severity from the previous study. The soft tissue structures are unremarkable. RAD/Toe(s) Min 2 Views IMPRESSION: Degenerative changes of the third DIP joint, increased in severity from the previous study. Electronically Signed: Sriram Tipton MD at 16:06 EDT , Service support ,
== END | disposition home or self-care (01) ==
LOC: MTRAD 10:50
PROVIDERS: PCP Family Medicine; Referring Provider Family Medicine; Visit Provider Family Medicine
DX: M79.675 Pain in left toe(s) (principal)
CPT/HCPCS: 73660

== ENCOUNTER → 2020-08-19 | Outpatient (CLI) | payer MEDICARE, SELFPAY ==
[2018-03-13 08:23] VITALS: BMI 26.6
[2020-08-11 10:26] VITALS: BMI 24.9
--- NOTE | 2020-08-19 10:11 | ECHOD_ITS ---
Reason For Study: DYSPNEA Procedure This was a 2D Doppler, Color Flow transthoracic echocardiogram. The study was technically difficult. Exam performed in department. Left Ventricle Normal LV size. Segmental dysfunction with preserved ejection fraction (see wall motion). The estimated ejection fraction is 65 %. Unable to assess diastolic dysfunction. Posterior-Basal: Hypokinetic. Infero-Basal: Akinetic. Basal inferoseptal: Hypokinetic. Mid-Inferior: Hypokinetic. Mid-inferoseptal : Hypokinetic. Right Ventricle Normal RV size. Normal systolic function. Atria The left atrium is mildly enlarged. Normal right atrium. No doppler evidence for ASD. Mitral Valve There is no mitral annular calcification. Mild diffuse mitral valve thickening. The mitral valve chordae are thickened and/or calcified. Mild mitral valve prolapse. Mild (1+) eccentric mitral valve insufficiency. Tricuspid Valve Normal tricuspid valve. Trivial tricuspid valve insufficiency. Unable to estimate RV systolic pressure/pulmonary artery pressure due to technically difficult study. Aortic Valve Trisinus/trileaflet aortic valve. Mild focal aortic valve calcification. Pulmonic Valve The pulmonic valve is not well visualized. Great Vessels Normal sized aortic root. Pericardium/Pleural No pericardial effusion. MMode/2D Measurements & Calculations LVIDd: 5.3 cm IVSd: 0.84 cm Ao root diam: 3.2 cm LVIDs: 3.9 cm LVPWd: 0.92 cm RVDd: 2.7 cm FS: 27.0 % LAV(MOD-bp): 41.2 ml LA A4 area: 13.7 cm2 LA dimension(2D): 4.6 cm LAV(MOD-bp) Indexed: 24.2 ml/m2 LAV(MOD-sp2): 51.4 ml LAV(MOD-sp4): 31.8 ml RA A4 area: 9.6 cm2 Doppler Measurements & Calculations MV E max elisabeth: 124.6 cm/sec Ao V2 max: 172.0 cm/sec LV V1 max: 127.5 cm/sec MV A max elisabeth: 163.1 cm/sec Ao max P.8 mmHg LV V1 max P.5 mmHg MV E/A: 0.76 PA V2 max: 101.9 cm/sec Interpretation Summary The study was technically difficult. Segmental dysfunction with preserved ejection fraction (see wall motion). The estimated ejection fraction is 65 %. The left atrium is mildly enlarged. Mild diffuse mitral valve thickening. The mitral valve chordae are thickened and/or calcified. Mild mitral valve prolapse. Mild (1+) eccentric mitral valve insufficiency. Trivial tricuspid valve insufficiency. Mild focal aortic valve calcification. Unable to estimate RV systolic pressure/pulmonary artery pressure due to technically difficult study. Unable to assess diastolic dysfunction. Ordering Physician: Stephon Castro Referring Physician: RADHA FULTON Performed By: Rita Salcedo RDCS, RVT
== END | disposition home or self-care (01) ==
LOC: CVS 10:11
PROVIDERS: PCP Family Medicine; Referring Provider Internal Medicine Cardiovascular Disease; Visit Provider Internal Medicine Cardiovascular Disease
DX: R06.02 Shortness of breath (principal); R06.00 Dyspnea, unspecified; I25.10 Atherosclerotic heart disease of native coronary artery without angina pectoris; Z95.5 Presence of coronary angioplasty implant and graft; Z95.1 Presence of aortocoronary bypass graft; E78.00 Pure hypercholesterolemia, unspecified; I10 Essential (primary) hypertension
CPT/HCPCS: 93306

== ENCOUNTER → 2020-10-30 06:44 | Outpatient (CLI) | payer MEDICARE, SELFPAY ==
[2018-03-13 08:23] VITALS: BMI 26.6
[2020-08-11 10:26] VITALS: BMI 24.9
--- NOTE | 2020-10-30 06:50 | CT_ITS ---
STUDY: LOW DOSE CT LUNG CANCER SCREENING REASON FOR EXAM: Female, 65 years old. LUNG CANCER SCREENING. 1PPD X 50 YRS. COPD/CABG RADIATION DOSAGE (If Supplied By Facility): CTDIvol = ( 2.01 ) mGy, DLP = ( 67.96 ) mGycm TECHNIQUE: No contrast was administered. Low dose technique was utilized (average mAS-38 and kVp 120). 1.25 mm axial source images with a slice interval of 1.25-mm were reconstructed in lung windows. 2.5 mm axial source images with a slice interval of 2.5-mm were reconstructed in lung windows. 5.0 mm axial source images with a slice interval of 5.0-mm were reconstructed in soft tissue windows. Nodule measured using lung windows on PACS and/or independent workstation with automated measurement of minimum and maximum diameter. Nodule measurement reported as average diameter rounded to the nearest whole number. Growth is defined as an increase ins size of greater than 1.5 mm. COMPARISON: Comparison is made with prior study dated 08/08/2017. NODULES: The previously seen nodule in the peripheral lateral aspect of the right upper lobe has increased in size. This is seen on axial image #82. It presently measures 1.4 cm x 1 cm. It has irregular margins. A neoplastic process should be ruled out. There is also evidence of a 6.3 mm noncalcified nodule in the posterior medial aspect of the right lower lobe as seen on axial image #111. This has increased in size as compared to prior study. Emphysema: No significant emphysema is seen. Endobronchial lesion: None Aorta: Atherosclerotic plaque formation of the aortic arch. Coronary arteries: Prior CABG. Coronary artery calcification. Heart: Unremarkable Pulmonary artery: Unremarkable. Mediastinal nodes: Small benign appearing mediastinal lymph nodes. Other chest and abdominal findings: CT/Low Dose CT Lung Screening IMPRESSION: Lung-RADS category 4B - Chest CT with or without contrast, PET/CT and/or tissue sampling can be obtained depending on the probability of malignancy and comorbidities. IMPORTANT NOTES FOR USE: ACR Lung-RADS Version 1.0 Assessment Categories Release Date: March 04, 2014 Category: Coded 0-4 bases on nodule(s) with highest degree of suspicion. Negative screen is defined as categories 1 and 2; a positive screen is defined as categories 3 and 4. Category 3 and 4A nodules that are unchanged on interval CT should be coded as category 2, and individuals returned to screening in 12 months. Category 4X: Category 3 or 4 nodules with additional imaging findings that increase the suspicion of lung cancer, such as spiculation, GGN that doubles in size in 1 year, enlarged lymph notes, etc. Category Modifiers: S (significant finding unrelated to lung cancer) and C (prior history of treated lung cancer) may be added to the 0-4 Lung-RADS Electronically Signed: Db Bach, at 9:39 EST , Service support ,
--- NOTE | 2020-11-03 11:50 | PFT ---
INTRODUCTION: The patient is a 65-year-old female that presents for pulmonary function studies secondary to a diagnosis of COPD. Respiratory therapy reports good patient effort. Bronchodilators were used during testing. INTERPRETATION: Forced expiration spirometry demonstrates the presence of a moderate large airways obstructive ventilatory defect. There was a significant response to aerosolized bronchodilators. Spirograms are of good quality and plateau gradually indicating slow emptying of the lungs. Body plethysmography was performed and reveals a decreased TLC to 3.75 L, 77% of predicted, indicative of a mild restrictive ventilatory impairment. Diffusing capacity by single breath CO is within normal limits. IMPRESSION: Partially reversible moderate mixed ventilatory defect with preserved diffusing capacity.
== END ==
PROVIDERS: PCP Family Medicine; Referring Provider Family Medicine; Visit Provider Family Medicine
DX: J44.9 Chronic obstructive pulmonary disease, unspecified (principal); F17.210 Nicotine dependence, cigarettes, uncomplicated; Z12.2 Encounter for screening for malignant neoplasm of respiratory organs
CPT/HCPCS: 94060; 94726; 94729; G0297

== ENCOUNTER → 2020-11-10 11:11 | Outpatient (CLI) | payer MEDICARE, SELFPAY ==
[2018-03-13 08:23] VITALS: BMI 26.6
[2020-11-06 11:15] VITALS: BMI 25.4
[2020-11-10 11:51] LABS: Absolute Lymphocyte Count 2.58 X10^3/uL (0.83-4.51); Absolute Neutrophil Count 2.5 X10^3/uL (2.0-7.7); Basophil# 0.06 X10^3/uL; Basophil% 1.1 % (0-1); Eosinophils% 1.8 % (0-5); Hematocrit 35.9 % (37-47); Hemoglobin 11.2 g/dL (12.0-15.0); Lymphocyte # 2.58 X10^3/ul (4.0); Lymphocyte % 45.3 % (19-41); Mean Corp Hgb Conc 31.2 g/dL (32-36); Mean Corpuscular Hgb 25.5 pg (27.0-32.0); Mean Corpuscular Volume 81.8 fL (81-99); Mean Platelet Vol. 10.9 fl (6.2-12.0); Monocyte# 0.46 X10^3/uL; Monocyte% 8.1 % (0-10); NRBC Flagged by Analyzer 0 % (0-5); Neutrophil # 2.49 X10^3/uL (2.7-7.7); Neutrophil % 43.5 % (47-70); Platelet Count 227 K/mm3 (150-450); RBC Distribution Width CV 17.2 % (11.6-14.6); RBC Distribution Width SD 50.2 fl (35.1-43.9); Red Blood Count 4.39 M/mm3 (4.2-5.4); White Blood Count 5.7 K/mm3 (4.4-11.0)
[2020-11-10 11:59] LABS: International Normalized Ratio 1.1; Prothrombin Time (Protime)PT. 13.2 SECONDS (11.7-14.9)
[2020-11-10 12:00] LABS: Partial Thromboplast Time 33.7 Seconds (24.1-36.2)
== END ==
LOC: PAVLAB 11:14
PROVIDERS: PCP Family Medicine; Referring Provider Internal Medicine Critical Care Medicine; Visit Provider Internal Medicine Critical Care Medicine
DX: M54.5 Low back pain (principal); R07.9 Chest pain, unspecified
CPT/HCPCS: 36415; 85025; 85610; 85730

== ENCOUNTER → 2020-11-12 11:22 | Outpatient (CLI) | payer MEDICARE, SELFPAY ==
[2018-03-13 08:23] VITALS: BMI 26.6
[2020-11-06 11:15] VITALS: BMI 25.4
[2020-11-12 15:50] LABS: Vitamin D,25 Hydroxy 21.7 ng/mL
[2020-11-12 15:53] LABS: ALB/GLOB Ratio 0.8 RATIO (0.9-2.4); AST(SGOT) 31 U/L (15-37); Alanine Aminotransfer ALT/SGPT 40 U/L (13-56); Albumin, Serum 3.6 g/dL (3.2-5.0); Alkaline Phosphatase 84 U/L (45-117); Anion Gap 7 (5-15); BUN 15 mg/dL (7-18); BUN/Creat Ratio 14.2 RATIO (10-20); Chloride 104 mmol/L (98-107); Creatinine, Serum 1.06 mg/dL (0.55-1.02); EST Glomerular Filtration Rate 56 mL/min (>60); Est Glom Filt Rate - Afr Amer 67 mL/min (>60); Globulin 4.4 g/dL (2.2-4.2); Glucose 85 mg/dL (74-106); Potassium 4.1 mmol/L (3.5-5.1); Sodium Level 135 mmol/L (136-145); Thyroid Stim Hormone (TSH) 2.76 uIU/mL (0.358-3.74)
[2020-11-12 15:54] LABS: Vitamin B12 > 2000 pg/mL (211-911)
== END ==
LOC: MFPLAB 11:26
PROVIDERS: PCP Family Medicine; Referring Provider Family Medicine; Visit Provider Family Medicine
DX: K21.9 Gastro-esophageal reflux disease without esophagitis (principal); E55.9 Vitamin D deficiency, unspecified; R53.83 Other fatigue
CPT/HCPCS: 36415; 80053; 82306; 82607; 84443

== ENCOUNTER → 2020-11-13 11:15 | Outpatient (CLI) | payer MEDICARE, SELFPAY ==
[2018-03-13 08:23] VITALS: BMI 26.6
[2020-11-06 11:15] VITALS: BMI 25.4
--- NOTE | 2020-11-13 11:20 | RAD_ITS ---
STUDY: X-RAY - UNILATERAL RIBS ( RIGHT ) WITH CHEST REASON FOR EXAM: Female, 65 years old. right sided anterior rib pain, no known injury TECHNIQUE - RIBS: 4 view(s) of the ribs. TECHNIQUE - CHEST: Single PA view of the chest. COMPARISON: 08/28/2019 FINDINGS - RIBS: Normal visualized ribs without a demonstrated fracture. FINDINGS - CHEST: Status post median sternotomy. The lungs are clear and expanded. There is no demonstrated pleural abnormality. Normal size heart. Normal mediastinum and jenna. Normal visualized pulmonary arteries. Normal visualized aortic arch and descending thoracic aorta. Normal visualized thoracic spine. Normal visualized ribs, clavicles, and shoulders. There is no demonstrated abnormality of the visualized soft tissue structures of the upper abdomen. RAD/Ribs Uni Min 3V w/PA Chest IMPRESSION: RIBS: Normal x-ray examination of the ribs. CHEST: No active disease. Electronically Signed: Angel Saravia MD at 17:01 EST Tel , Service support ,
== END ==
LOC: MTRAD 11:17
PROVIDERS: PCP Family Medicine; Referring Provider Family Medicine; Visit Provider Family Medicine
DX: R07.81 Pleurodynia (principal)
CPT/HCPCS: 71101

== ENCOUNTER → 2020-11-21 07:53 | Outpatient (CLI) | payer MEDICARE, SELFPAY ==
[2018-03-13 08:23] VITALS: BMI 26.6
[2020-11-06 11:15] VITALS: BMI 25.4
[2020-11-21] VITALS (11 sets, daily range): BP systolic 82–119; BP diastolic 47–73; PULSE 48–66; RESP 8–18; TEMP 37.3; O2SAT 93–100; BMI 24.9
--- NOTE | 2020-11-21 07:55 | CT_ITS ---
PROCEDURE: CT GUIDED CORE NEEDLE BIOPSY OF A peripheral right upper lobe LUNG LESION INDICATION: Female, 65 years old. Right upper lung mass biopsy. PHYSICIAN: Dr. ANJELICA Lawler CONSENT: Written informed consent was obtained having explained the risks, benefits and alternatives in detail with the patient who accepted the risks and agreed to proceed. Laboratory review and clinical assessment was performed. CONSCIOUS SEDATION PROTOCOL: The Drugs used were: 2 mg Versed, IV., and 100 mcg Fentanyl, IV. The sedation time was: 27 minutes. Conscious sedation was started at 9:43 AM and terminated at 10:10 AM The conscious sedation protocol was independently monitored. RADIATION DOSAGE (If Supplied By Facility): CTDIvol = ( 17.5 ) mGy, DLP = ( 1162.29 ) mGycm Individualized dose optimization techniques were used for this CT. TECHNIQUE: The patient was placed in the supine position. A noncontrast CT was performed to localize the lesion in the peripheral aspect of the right upper lobe . The skin surface was prepped and draped in a sterile fashion. 1% lidocaine was used for local anesthesia. Using CT guidance, a 20-gauge coaxial biopsy device was advanced to the periphery of the lesion. A total of 5 core specimens were obtained. The specimens were placed in a formalin solution. A post procedure CT demonstrated no adverse sequelae or pneumothorax. The patient tolerated the procedure well without adverse event. A negative biopsy does not exclude malignancy. Further imaging or clinical followup based on patient condition and degree of clinical suspicion for malignancy. Suggest rebiopsy, if biopsy results do not match with clinical scenario. CT/Biopsy/Inj or Needle Placement IMPRESSION: 1. CT directed core needle biopsy of the peripheral based right upper lobe nodule using CT image guidance with image documentation as described. Pathology results are pending. 2. Conscious Sedation protocol utilized with independent monitoring. 3. The patient tolerated the procedure well. Electronically Signed: Db Bach, at 10:52 EST , Service support ,
--- NOTE | 2020-11-21 09:30 | RAD_ITS ---
STUDY: X-RAY CHEST REASON FOR EXAM: Female, 65 years old. POST BX TECHNIQUE: Immediate post right lung biopsy radiograph. COMPARISON: Comparison is made with prior study dated 11/13/2020. FINDINGS: Immediate post right lung biopsy radiographs. No evidence of pneumothorax. RAD/Chest Insp/Exp 2 View IMPRESSION: No evidence of pneumothorax on the immediate post right lung biopsy radiograph. Electronically Signed: Db Bach MD at 8:29 EST , Service support ,
[2020-11-21] MEDS: Midazolam 2 MG/2 ML Syringe IV ×2 (09:43→10:05)
[2020-11-21] MEDS: fentaNYL 100 MCG/2 ML Ampul IV ×2 (09:43→09:55)
[2020-11-21] MEDS: Lidocaine 2% (20 ml mdv) 20 ML Vial INFILT (09:50)
--- NOTE | 2020-11-21 10:00 | ASPIGT_PTH ---
PATIENT: TEODORO ALMEIDA LOC: CT U#:[id number] AGE/SX: 70/F ROOM: RE11/21/[address]: Dr. Ranjit Macias MD : 1955 BED: DIS: SPEC #: [id number] RECD: 11/21/20 10:30 STATUS: TEETEE KRISTI #: [id number] RADHA: 11/21/20 10:[address]: Ranjit Macias DEPT: SURGICAL PATHOLOGY RECD BY: Vonnie Garcia ENTERED: 11/21/20 11:28 SP TYPE: ASP RAD OTHR DR: Dr. Sen Odom MD Tissues: Lung, NOS Procedures: FNA Specimen Adequacy Special Stain Group II Surgery Specimen Level IV Imprint (control) HEADER OPERATION: CT-guided right lung core biopsy PRE-OP DIAGNOSIS: Right lung mass TISSUE SUBMITTED: Right upper lobe lung mass, 20-gauge core x5 MICROSCOPIC DIAGNOSIS Right upper lobe lung mass, biopsy: Lung parenchymal tissue, negative for malignancy. See comment. ELENA:lala 11/24/2020 COMMENT The specimen is evaluated at the time of biopsy by Dr. Tao. Immediate Evaluation = Atypical cells noted. Core biopsy tissue shows focal minimal pneumocyte-2 atypia, favor reactive. The touch imprints show a few mildly atypical cells. Correlation with clinical, radiologic findings and appropriate follow up are necessary. Rebiopsy is suggested if clinically indicated. Case has been reviewed in consultation with Dr. Davey who concurs with the above diagnosis. IDC:AM MICROSCOPIC DESCRIPTION Slides are reviewed. GROSS DESCRIPTION Received in fixative is one container labeled with the patient's name and designated right lung, CT-guided core biopsy. The specimen consists of minute fragments of vu soft tissue that in aggregate measure 0.1 x 0.1 x 0.1 cm. The specimen is totally submitted in one cassette. / ELENA:lala 11/21/20 TC:5 CPT: 73541, 84857
--- NOTE | 2020-11-21 11:30 | RAD_ITS ---
STUDY: X-RAY CHEST REASON FOR EXAM: Female, 65 years old. 2 HR POST BX TECHNIQUE: AP inspiration and expiration views. COMPARISON: Comparison is made with prior study done earlier today. FINDINGS: Two-hour post right lung biopsy radiographs. No evidence of pneumothorax. RAD/Chest Insp/Exp 2 View IMPRESSION: No evidence of pneumothorax on the 2 hour post right lung biopsy radiographs. Electronically Signed: Db Bach, at 12:51 EST , Service support ,
== END ==
PROVIDERS: PCP Family Medicine; Referring Provider Internal Medicine Critical Care Medicine; Visit Provider Internal Medicine Critical Care Medicine
DX: R91.1 Solitary pulmonary nodule (principal); Z72.0 Tobacco use
CPT/HCPCS: 32408; 71046; 77012; 88172; 88305; 88313; 99155; 99156; J7040

== ENCOUNTER → 2020-11-26 | Outpatient (CLI) | payer MEDICARE, SELFPAY ==
[2018-03-13 08:23] VITALS: BMI 26.6
== END | disposition home or self-care (01) ==
LOC: LABSPEC 09:35
PROVIDERS: PCP Family Medicine; Visit Provider Student in an Organized Health Care Education/Training Program
DX: R05 Cough (principal)
CPT/HCPCS: 87070; 87205

== ENCOUNTER → 2020-12-24 08:13 | Outpatient (CLI) | payer MEDICARE, SELFPAY ==
[2018-03-13 08:23] VITALS: BMI 26.6
[2020-11-21 08:24] VITALS: BMI 24.9
--- NOTE | 2020-12-23 14:00 | PET_ITS ---
EXAMINATION: FDG PET/CT INDICATIONS: A 65-year-old female with reported history of pulmonary nodularity. COMPARISON EXAMINATION: CT of the chest report dated 10/30/20 INDEX LESION SIZE SUV INTERPRETATION Right mid lateral lung-right upper lobe 13.5-mm (frame 188) 2.8 Fulfills quantitative criteria for viable neoplasm, histopathologic analysis recommended TECHNIQUE: Following the intravenous administration of 11.43 mCi of F-18 deoxyglucose via the left antecubital fossa, multiplanar image acquisitions of the neck, chest, abdomen and pelvis to level of mid thigh, obtained at one hour post radiopharmaceutical administration contemporaneously interpreted with the current CT of the neck, chest, abdomen and pelvis to level of mid thigh, dated 12/24/[address] of the chest report dated 10/30/20 reveal: SERUM GLUCOSE LEVEL: 93 mg/dl. HEIGHT: 64 inches. WEIGHT: 145 lbs. FINDINGS: 1. Focal increased glucose metabolism is defined in the right mid lateral lung-right upper lobe generating a calculated maximal standard uptake value of 2.8. The maximal axial diameter of the corresponding parenchymal density on review of CT of the chest dated 12/24/20 is 15.5-mm (AP). 2. Normal physiologic distribution of the radiopharmaceutical is apparent in the hepatic (2.5) and splenic parenchyma, both renal units, bladder and visualized intestinal tract. Diffuse radiopharmaceutical concentration is noted in all four quadrants of the abdomen and pelvis. The visualized portion of the cerebral cortex demonstrate symmetric and preserved glucose metabolism. Pertinent CT findings are as follows: CHEST: An additional non-calcified subcentimeter parenchymal density noted in the right lower posterior lung-right lower lobe and left mid lateral lung-left lower lobe is ametabolic. There is atherosclerotic calcification defined in the thoracic aorta without evidence of dilatation-aneurysm formation. Coronary arterial calcification is observed. Bilateral subcentimeter axillary soft tissue densities with fatty hilus are ametabolic. ABDOMEN AND PELVIS: The gallbladder is surgically absent. There is atherosclerotic calcification defined in the abdominal aorta without evidence of dilatation-aneurysm formation. Pelvic arterial calcification is observed. Right-left inguinal soft tissue densities with fatty hilus are ametabolic. The uterus appears surgically absent. Electronic stimulator device is noted in the right posterior pelvic wall localized to the subcutaneous fat. SKELETAL: Degenerative changes are noted in the cervical, thoracic and lumbar spine without evidence of increased radiopharmaceutical concentration. Orthopedic hardware placement is noted in the lower cervical spine commensurate with spinal fusion operative intervention. PET/PET/CT Tumor Base -Thigh Init IMPRESSION: 1. The increase in FDG concentration defined in the right mid lateral lung-right upper lobe fulfills quantitative criteria for viable neoplasm with single point technique. Histopathologic investigation is recommended following consultation with interventional radiology. 2. No other quantitatively significant hypermetabolic abnormalities are noted. Electronic Signature Angel Enriquez D.O. Accurate Quantification of SUVs for this report are calculated using the exclusive [employer]? Technology.??Exclusive [place]. Patent [employer]? Technology ([place].S. Patent No. [id number] [id number]). Electronically Signed: Angel Enriquez DO at 22:01 EST Tel , Service support ,
== END ==
LOC: ONC 08:13
PROVIDERS: PCP Family Medicine; Referring Provider Nurse Practitioner Acute Care; Visit Provider Nurse Practitioner Acute Care
DX: R91.8 Other nonspecific abnormal finding of lung field (principal)
CPT/HCPCS: 78815; A9552

== ENCOUNTER → 2021-03-26 09:38 | Outpatient (CLI) | payer MEDICARE, SELFPAY ==
[2021-03-04 09:16] VITALS: BMI 26.6
[2021-03-16 13:21] VITALS: BMI 24.7
--- NOTE | 2021-03-26 09:51 | RAD_ITS ---
STUDY: X-RAY - UNILATERAL RIBS ( RIGHT ) WITH CHEST REASON FOR EXAM: Female, 66 years old. right low rib pain TECHNIQUE - RIBS: 4 view(s) of the ribs. TECHNIQUE - CHEST: Single PA view of the chest. COMPARISON: 11/21/2020 FINDINGS - RIBS: Normal visualized ribs without a demonstrated fracture. FINDINGS - CHEST: Status post median sternotomy. Status post anterior cervical discectomy and fusion lower cervical spine. Scarring in the periphery the right lung which is unchanged. There is no demonstrated pleural abnormality. Normal size heart. Normal mediastinum and jenna. Normal visualized pulmonary arteries. Normal visualized aortic arch and descending thoracic aorta. Normal visualized thoracic spine. Normal visualized ribs, clavicles, and shoulders. There is no demonstrated abnormality of the visualized soft tissue structures of the upper abdomen. RAD/Ribs Uni Min 3V w/PA Chest IMPRESSION: RIBS: Normal x-ray examination of the ribs. CHEST: No active disease per Electronically Signed: Angel Saravia MD at 11:04 EDT Tel , Service support ,
--- NOTE | 2021-03-26 09:52 | RAD_ITS ---
STUDY: X-RAY - PELVIS AND LEFT HIP REASON FOR EXAM: Female, 66 years old. PAIN TECHNIQUE: 3 views of the pelvis and hip. COMPARISON: 02/28/2019 FINDINGS: There is a non-specific bowel gas pattern. Normal visualized soft tissue structures. Normal bilateral iliac wings, sacroiliac joints and visualized sacrum. Normal bilateral superior and inferior pubic rami. Normal pubic symphysis. Normal bilateral ischial tuberosities. Normal visualized femoral head. Normal acetabulum. Normal hip joint. RAD/HIP, UNI W/ Pelvis 2-3 Views IMPRESSION: Normal x-ray examination of the pelvis and hip. Electronically Signed: Angel Saravia MD at 11:02 EDT Tel , Service support ,
[2021-03-26 12:14] LABS: Absolute Lymphocyte Count 1.55 X10^3/uL (0.83-4.51); Absolute Neutrophil Count 2.6 X10^3/uL (2.0-7.7); Basophil# 0.06 X10^3/uL; Basophil% 1.2 % (0-1); Eosinophil# 0.15 X10^3/uL; Eosinophils% 3.1 % (0-5); Hematocrit 36.7 % (37-47); Hemoglobin 11.2 g/dL (12.0-15.0); Lymphocyte # 1.55 X10^3/ul (0.83-4.51); Lymphocyte % 31.8 % (19-41); Mean Corp Hgb Conc 30.5 g/dL (32-36); Mean Corpuscular Hgb 24.2 pg (27.0-32.0); Mean Corpuscular Volume 79.4 fL (81-99); Mean Platelet Vol. 11.3 fl (6.2-12.0); Monocyte# 0.51 X10^3/uL; Monocyte% 10.5 % (0-10); NRBC Flagged by Analyzer 0 % (0-5); Neutrophil % 53.2 % (47-70); Platelet Count 230 K/mm3 (150-450); RBC Distribution Width CV 17.2 % (11.6-14.6); RBC Distribution Width SD 49.4 fl (35.1-43.9); Red Blood Count 4.62 M/mm3 (4.2-5.4); White Blood Count 4.9 K/mm3 (4.4-11.0)
[2021-03-26 12:26] LABS: ALB/GLOB Ratio 0.8 RATIO (0.9-2.4); AST(SGOT) 32 U/L (15-37); Alanine Aminotransfer ALT/SGPT 36 U/L (13-56); Albumin, Serum 3.8 g/dL (3.2-5.0); Alkaline Phosphatase 90 U/L (45-117); Anion Gap 8 (5-15); BUN 12 mg/dL (7-18); BUN/Creat Ratio 10.9 RATIO (10-20); Calcium,Total 8.9 mg/dL (8.5-10.1); Chloride 106 mmol/L (98-107); EST Glomerular Filtration Rate 53 mL/min (>60); Est Glom Filt Rate - Afr Amer 64 mL/min (>60); Globulin 4.5 g/dL (2.2-4.2); Glucose 102 mg/dL (74-106); Potassium 4.1 mmol/L (3.5-5.1); Protein, Total 8.3 g/dL (6.4-8.2); Sodium Level 137 mmol/L (136-145)
== END ==
PROVIDERS: PCP Family Medicine; Referring Provider Family Medicine; Visit Provider Family Medicine
DX: M25.552 Pain in left hip (principal); R10.9 Unspecified abdominal pain; R07.81 Pleurodynia
CPT/HCPCS: 36415; 71101; 73502; 80053; 85025

== ENCOUNTER → 2021-04-14 07:45 | Outpatient (CLI) | payer MEDICARE, SELFPAY ==
[2021-03-04 09:16] VITALS: BMI 26.6
[2021-03-16 13:21] VITALS: BMI 24.7
--- NOTE | 2021-04-14 07:55 | MRI_ITS ---
STUDY: MRI BRAIN WITH AND WITHOUT CONTRAST REASON FOR EXAM: Female, 66 years old. lung cancer on treatment, increase LINTON/nausea x 2wk TECHNIQUE: Standardized multiplanar fat and water weighted pulse sequences were obtained. IV 13ml Dotarem was administered for the contrast portion of the examination. COMPARISON: None. FINDINGS: Normal size of the ventricles and extra-axial spaces for the patient''s age. Normal white matter tracts of the supratentorial brain. Normal bilateral basal ganglia. Normal thalami. There is no extra-axial fluid accumulation. Normal flow voids within the major intracranial circulation suggesting patency by spin echo criteria. Normal venous enhancement. There is no enhancing intra-axial or extra-axial abnormality. Normal sella turcica, pituitary gland, infundibular stalk, optic chiasm and hypothalamus. Normal tectal plate and pineal gland. Normal midbrain, herber and medulla. Normal cerebellum. MRI/Brain W/WO Contrast IMPRESSION: Unremarkable unenhanced and enhanced MRI of the brain. Electronically Signed: Les Lopez MD at 9:58 EDT Tel , Service support ,
== END ==
PROVIDERS: PCP Family Medicine; Referring Provider Student in an Organized Health Care Education/Training Program; Visit Provider Student in an Organized Health Care Education/Training Program
DX: C34.91 Malignant neoplasm of unspecified part of right bronchus or lung (principal)
CPT/HCPCS: 70553; A9575

== ENCOUNTER → 2021-09-23 10:10 | Outpatient (CLI) | payer MEDICARE, SELFPAY ==
[2021-03-04 09:16] VITALS: BMI 26.6
--- NOTE | 2021-09-23 10:20 | RAD_ITS ---
STUDY: X-RAY CHEST REASON FOR EXAM: Female, 66 years old. Cough, fever TECHNIQUE: PA and lateral views of the chest. COMPARISON: 03/26/2021 FINDINGS: There are interstitial changes of the lungs with stable right upper lobe scarring from previous surgery.. There is no demonstrated pleural abnormality. Sternal cerclage wires and vascular clips are present from a prior sternotomy and coronary artery bypass graft procedure (CABG). Normal mediastinum and jenna. Normal visualized pulmonary arteries. Normal visualized aortic arch and descending thoracic aorta. There are diffuse degenerative changes of the visualized thoracic spine. Normal visualized ribs, clavicles, and shoulders. There is no demonstrated abnormality of the visualized soft tissue structures of the upper abdomen. RAD/Chest PA and Lateral IMPRESSION: Degenerative changes, as described above. No demonstrated acute cardiopulmonary process. No interval change Electronically Signed: Andrew West MD at 17:22 EST , Service support ,
[2021-09-23 12:48] LABS: Hematocrit 35.6 % (37-47); Hemoglobin 11.1 g/dL (12.0-15.0); Mean Corp Hgb Conc 31.2 g/dL (32-36); Mean Corpuscular Hgb 24.6 pg (27.0-32.0); Mean Corpuscular Volume 78.8 fL (81-99); Mean Platelet Vol. 9.9 fl (6.2-12.0); Platelet Count 255 K/mm3 (150-450); RBC Distribution Width CV 17.2 % (11.6-14.6); RBC Distribution Width SD 49.3 fl (35.1-43.9); Red Blood Count 4.52 M/mm3 (4.2-5.4)
[2021-09-23 13:02] LABS: Vitamin D,25 Hydroxy 21.7 ng/mL
[2021-09-23 13:06] LABS: Anion Gap 7 (5-15); BUN 18 mg/dL (7-18); BUN/Creat Ratio 15.4 RATIO (10-20); Chloride 105 mmol/L (98-107); Creatinine, Serum 1.17 mg/dL (0.55-1.02); EST Glomerular Filtration Rate 49 mL/min (>60); Est Glom Filt Rate - Afr Amer 60 mL/min (>60); Glucose 105 mg/dL (74-106); Potassium 3.7 mmol/L (3.5-5.1); Sodium Level 136 mmol/L (136-145); Uric Acid 4.5 mg/dL (2.6-6.0)
== END ==
PROVIDERS: PCP Family Medicine; Referring Provider Family Medicine; Visit Provider Family Medicine
DX: E55.9 Vitamin D deficiency, unspecified (principal); D64.9 Anemia, unspecified; I10 Essential (primary) hypertension; M10.9 Gout, unspecified; E53.8 Deficiency of other specified B group vitamins
CPT/HCPCS: 36415; 71046; 80048; 82306; 84550; 85027

== ENCOUNTER → 2021-11-02 12:44 | Outpatient (CLI) | payer MEDICARE, SELFPAY ==
[2021-04-15 10:41] VITALS: BMI 24.7
[2021-10-20 08:51] VITALS: BMI 26.6
--- NOTE | 2021-11-02 12:46 | CT_ITS ---
INDICATION: follow up treated right lung NSCLC EXAMINATION: CT CHEST WITHOUT CONTRAST - CT Chest W/O Contrast Injection TECHNIQUE: Helically acquired images were obtained of the chest. A radiation dose optimization technique was used for this scan. IV Contrast dosage and agent: None. COMPARISON: 03/10/2021.. FINDINGS: LUNGS, PLEURA AND LARGE AIRWAYS: Bessie in the inferolateral aspect of the right upper lobe seen on axial series 4 image 42 there has been slightly decreased soft tissue prominence visualized, the pleural soft tissue prominence is visualized along the lateral pleural surface at this level is not seen on today''s study. However superiorly along the lateral aspect of the inferior right lower lobe seen on axial series 4 image 34, coronal series 602 image 141 and sagittal series 601 image 78 there is a pleural-based soft tissue density visualized measuring 2.7 x 3.4 x 1.1 cm that was not seen on the prior study, prominence of the adjacent interstitial lung markings is visualized most prominent superiorly on axial series 4 image 31, thickening of the bronchioles in this region is seen. Focal pleural thickening and patchy airspace opacification is visualized along the lateral aspect of the superior segment of the left upper lobe seen on axial series 4 image 44, this was not seen on the prior study. Mild prominence of the bronchovascular interstitial lung markings is visualized, thickening of the bronchioles is visualized bilaterally but more prominent in the right hemithorax. THYROID: No thyroid lesions. HEART AND PERICARDIUM: Heart size is normal. No pericardial effusion. Atherosclerotic coronary calcifications are visualized. VESSELS: Thoracic aorta is not dilated. MEDIASTINUM AND MADHURI: No significant increase in the mediastinal or hilar adenopathy. Esophagus is unremarkable. No hiatal hernia. UPPER ABDOMEN: No acute pathology. BONES: No suspicious lytic or blastic abnormality. CT/Chest without Contrast IMPRESSION: Pleural-based soft tissue densities and patchy soft tissue densities in the lateral aspect of the right upper and lower lung casas demonstrates a increase in comparison to the prior study would recommend further evaluation for progressive disease. Electronically Signed: Jeovanny Nixon MD at 14:21 EST Tel , Service support ,
== END ==
PROVIDERS: PCP Family Medicine; Referring Provider Student in an Organized Health Care Education/Training Program; Visit Provider Student in an Organized Health Care Education/Training Program
DX: C34.90 Malignant neoplasm of unspecified part of unspecified bronchus or lung (principal)
CPT/HCPCS: 71250

== ENCOUNTER 2022-01-27 13:50 | Outpatient (CLI) | payer MEDICARE, SELFPAY ==
[2021-10-20 08:51] VITALS: BMI 26.6
--- NOTE | 2022-01-28 12:17 | ECHOD_ITS ---
Reason For Study: CAD/ASHD Procedure This was a 2D Doppler, Color Flow transthoracic echocardiogram. The study was technically difficult. Exam performed in department. Left Ventricle Normal LV size. Segmental dysfunction with preserved ejection fraction (see wall motion). The estimated ejection fraction is 65 %. There is evidence of diastolic dysfunction. Right Ventricle Normal RV size. Normal systolic function. Atria The left atrium is mildly enlarged. Normal right atrium. No doppler evidence for ASD. Mitral Valve There is no mitral annular calcification. Mild diffuse mitral valve thickening. Mild mitral valve prolapse. Mild (1+) mitral valve insufficiency. Tricuspid Valve Normal tricuspid valve. Trivial tricuspid valve insufficiency. Unable to estimate RV systolic pressure/pulmonary artery pressure due to technically difficult study. Aortic Valve The aortic valve is not well visualized. Pulmonic Valve The pulmonic valve is not well visualized. Great Vessels Calcified aortic root. Pericardium/Pleural No pericardial effusion. MMode/2D Measurements & Calculations LVIDd: 5.6 cm IVSd: 1.1 cm LAV(MOD-bp): 99.3 ml LVIDs: 4.0 cm LVPWd: 1.2 cm LAV(MOD-bp) Indexed: 54.8 ml/m2 RVDd: 2.7 cm FS: 28.0 % LAV(MOD-sp2): 93.0 ml LAV(MOD-sp4): 91.1 ml LA dimension(2D): 4.0 cm LA A4 area: 25.5 cm2 Time Measurements MV dec time: 0.46 sec Doppler Measurements & Calculations MV E max talib: 144.2 cm/sec Lat Peak E' Talib: 6.0 cm/sec Med Peak E' Talib: 4.5 cm/sec MV A max talib: 160.5 cm/sec E/E' lat: 24.0 E/E' med: 32.4 MV E/A: 0.90 MV V2 max: 193.0 cm/sec MV P1/2t max talib: 182.4 cm/sec Ao V2 max: 179.1 cm/sec MV max P.0 mmHg MV P1/2t: 157.2 msec Ao max P.8 mmHg MV V2 mean: 143.4 cm/sec MV dec slope: 339.9 cm/sec2 MV mean P.6 mmHg MV V2 VTI: 56.0 cm MVA(P1/2t): 1.4 cm2 LV V1 max: 125.9 cm/sec PA V2 max: 114.6 cm/sec LV V1 max P.3 mmHg ECHO/Echo Complete Interpretation Summary The study was technically difficult. Segmental dysfunction with preserved ejection fraction (see wall motion). The estimated ejection fraction is 65 %. The left atrium is mildly enlarged. Mild diffuse mitral valve thickening. Mild mitral valve prolapse. Mild (1+) mitral valve insufficiency. Trivial tricuspid valve insufficiency. Calcified aortic root. Unable to estimate RV systolic pressure/pulmonary artery pressure due to techni yvan difficult study. There is evidence of diastolic dysfunction. Ordering Physician: Stephon Castro Referring Physician: Sen Odom Performed By: Ashley Galvan, MARION, RVT
== END 2022-01-27 23:59 | disposition home or self-care (01) ==
LOC: CVS 13:50
PROVIDERS: PCP Family Medicine; Referring Provider Internal Medicine Cardiovascular Disease; Visit Provider Internal Medicine Cardiovascular Disease
DX: I25.10 Atherosclerotic heart disease of native coronary artery without angina pectoris (principal); Z95.1 Presence of aortocoronary bypass graft
CPT/HCPCS: 93306

== ENCOUNTER → 2022-03-11 | Outpatient (CLI) | payer MEDICARE, SELFPAY ==
[2021-10-20 08:51] VITALS: BMI 26.6
--- NOTE | 2022-03-11 14:20 | CT_ITS ---
STUDY: CT CHEST WITHOUT CONTRAST REASON FOR EXAM: Female, 67 years old. Follow up treated NSCLC, please compare to prior RADIATION DOSAGE (If Supplied By Facility): CTDIvol = ( 13.67 ) mGy, DLP = ( 461.09 ) mGycm TECHNIQUE: Transaxial imaging was performed without the administration of intravenous contrast material. Multiplanar coronal and sagittal images were reformatted. Individualized dose optimization techniques were used for this CT. COMPARISON: Comparison is made with prior study dated 11/02/2021. FINDINGS: CHEST Stable pleural-based soft tissue density is seen in the posterior aspect of the right upper lobe as seen on axial image #32 through 37. This most like represents postoperative or postradiation scarring. Stable linear and nodular density in the peripheral aspect of the right upper lobe as seen on axial image #39. This has decreased in size. The nodular density presently measures 1.2 cm x 0.4 cm. There is no demonstrated pleural abnormality. Sternal cerclage wires and vascular clips are present from a prior sternotomy and coronary artery bypass graft procedure (CABG). There are multiple small lymph nodes within the mediastinum, which are normal in size and morphology most compatible with reactive lymph hyperplasia. Normal hilar regions. Normal unenhanced pulmonary arteries. There is atherosclerotic calcification of the aortic arch with tortuosity and elongation of the aortic arch and descending thoracic aorta. There are multi-level degenerative changes of the thoracic spine. The patient is status post cholecystectomy. CT/Chest without Contrast IMPRESSION: Stable pleural-based density in the lateral aspect of the right lower lobe as well as interval decrease in size of the nodular density in the lateral aspect of the right upper lobe. Electronically Signed: Db Bach MD at 15:43 EDT ,
== END | disposition home or self-care (01) ==
LOC: CT 14:18
PROVIDERS: PCP Family Medicine; Referring Provider Student in an Organized Health Care Education/Training Program; Visit Provider Student in an Organized Health Care Education/Training Program
DX: C34.90 Malignant neoplasm of unspecified part of unspecified bronchus or lung (principal)
CPT/HCPCS: 71250

== ENCOUNTER → 2022-05-11 | Outpatient (CLI) | payer MEDICARE, SELFPAY ==
[2021-10-20 08:51] VITALS: BMI 26.6
--- NOTE | 2022-05-11 12:54 | BD_ITS ---
STUDY: DUAL ENERGY X-RAY ABSORPTIOMETRY / DXA REASON FOR EXAM: Female, 67 years old. [id number]. The patient is postmenopausal. TECHNIQUE: Bone Mineral Density (BMD) measurements of lumbar spine and bilateral hips were obtained. COMPARISON: None. FINDINGS: Lumbar Spine (L1-L4): g/cm2 (0.882) / T-score (-1.5) / Z-score (0.3) Findings are suggestive of osteopenia with a low fracture risk. Left Femur Total: g/cm2 (0.760) / T-score (-1.5) / Z-score (-0.3) Left Femoral Neck: g/cm2 (0.605) / T-score (-2.2) / Z-score (-0.7) Right Femur Total: g/cm2 (0.705) / T-score (-1.9) / Z-score (-0.7) Right Femoral Neck: g/cm2 (0.591) / T-score (-2.3) / Z-score (-0.8) BD/Dexa Bone Density Study IMPRESSION: The patient is considered osteopenic as outlined below according to World Jaerd Organization (WHO) criteria with a high fracture risk. Reference Information: The T-score is the number of standard deviations above or below the standard which is normal for young adults at their peak bone mineral density. The World Health Organization (WHO) interprets the T-scores as follows: Above -1 Normal bone density Between -1 and -2.5 Osteopenia Equal to / or below -2.5 Osteoporosis As a practical clinical guideline, osteopenia may be graded as follows: Mild -1 through -1.5 Moderate -1.6 through -2.0 Severe -2.1 through -2.4 The Z-score is the number of standard deviations above or below age-matched controls. A Z-score of less than -1.5 would be considered abnormal. References: 1. NIH Osteoporosis and Related Bone Diseases www osteo.org 2. International Society for Clinical Densitometry www iscd.org 3. National Osteoporosis Foundation www nof.org Electronically Signed: Db Bach MD at 10:54 EDT ,
== END | disposition home or self-care (01) ==
LOC: OPBD 12:49
PROVIDERS: PCP Family Medicine; Referring Provider Family Medicine; Visit Provider Family Medicine
DX: Z00.00 Encounter for general adult medical examination without abnormal findings (principal); M85.80 Other specified disorders of bone density and structure, unspecified site; Z78.0 Asymptomatic menopausal state
CPT/HCPCS: 77080

== ENCOUNTER 2022-06-09 15:17 | Inpatient (IN) | payer MEDICARE, SELFPAY ==
[2021-10-20 08:51] VITALS: BMI 26.6
[2022-06-09] VITALS (19 sets, daily range): BP systolic 118–162; BP diastolic 61–127; PULSE 81–98; RESP 17–29; TEMP 36.4–38.1; O2SAT 94–100; BMI 28.3; BMI 29.0
--- NOTE | 2022-06-09 15:35 | EKG12_ITS ---
Test Reason : sob Blood Pressure : / mmHG Vent. Rate : 083 BPM Atrial Rate : 083 BPM P-R Int : 164 ms QRS Dur : 096 ms QT Int : 432 ms P-R-T Axes : 023 026 -14 degrees QTc Int : 507 ms Normal sinus rhythm Nonspecific ST and T wave abnormality Abnormal ECG Confirmed by DREAD CHOI, SABI ([id number]), editorial intern VERÓNICA THAPA ([id number]) on 06/10/2022 1:22:57 PM Referred By: Confirmed By:SABI CANADA MD
--- NOTE | 2022-06-09 15:38 | EDS_ITS ---
HPI History of Present Illness Chief Complaint: Shortness of Breath Informant: patient Onset/Context/Timing Onset: Weeks Context: gradual Timing: Continuous Quality: Positive for Dyspnea on exertion, Orthopnea and Wheezing Current Severity: Mild Maximum Severity: Mild Worsened by: Exertion, Lying flat and Coughing Relieved by: Rest Associated Symptoms cough and clear sputum Chest Pain: Positive for Dull; Negative for Pleuritic, Pressure or Tightness Narrative Narrative: 67-year-old female history of COPD, CAD, cardiac stents, prior partial lung resection for lung CA, pleural effusion and a prior CABG. Complaint shortness of breath the last 2 weeks. 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 She states she still having symptoms. Worse with exertion. No pleuritic chest pain. No hemoptysis. Cough of clear to white sputum. No fever. PE Risk Factors: Negative for OCP + Smoking + > 35, Prior DVT or PE, Recent immobilization, Recent surgery or Recent travel Prior similar symptoms: Yes Recent Illness/Hospitalization: No PFSH PFSH Medical History Atherosclerotic heart disease of [place] coronary artery without angina pectoris Chest pain, unspecified COPD (chronic obstructive pulmonary disease) DDD (degenerative disc disease) Essential hypertension Lung cancer Melanoma Nonrheumatic mitral (valve) prolapse HOWARD (obstructive sleep apnea) Osteoarthritis Pericardial effusion Premature ventricular contraction Pulmonary nodules Tobacco abuse Worsening angina Home Medications omeprazole 20 mg capsule,delayed release 20 mg PO DAILY acid reflux 02/04/16 [History Last Taken 08/05/20] primidone 50 mg tablet 100 mg PO QHS seizures 30 days #30 tabs 08/17/18 [History Last Taken 06/19/19] buspirone 10 mg tablet 10 mg PO TID 06/20/19 [History Last Taken 11/20/20 10:00] furosemide 20 mg tablet 20 mg PO DAILY 08/17/19 [History Last Taken 11/20/20 10:00] albuterol sulfate 90 mcg/actuation aerosol inhaler 1 puff inhalation Q6H PRN PRN Sob &/Or Wheezing 07/28/20 [History Last Taken Unknown] sertraline 100 mg tablet 100 mg PO DAILY 08/11/20 [History Last Taken Unknown] budesonide 1 mg/2 mL suspension for nebulization 1 mg (2 mL) inhalation BID #60 mL 12/26/20 [Rx Last Taken Unknown] ipratropium 0.5 mg-albuterol 3 mg (2.5 mg base)/3 mL nebulization soln 3 ml inhalation Q4H PRN shortness of breath or wheezing #180 mL 12/29/20 [Rx Last Taken Unknown] nitroglycerin 0.4 mg sublingual tablet 0.4 mg sublingual Q5M PRN Chest Pain #25 tabs 02/23/21 [Rx Last Taken Unknown] ondansetron HCl 4 mg tablet (Zofran) 4 mg PO Q8H PRN nausea and vomiting #20 tabs 04/08/21 [Rx Last Taken Unknown] clopidogrel 75 mg tablet 75 mg PO DAILY #90 tabs 12/25/21 [Rx Last Taken Unknown] metoprolol succinate 25 mg tablet,extended release 24 hr 12.5 mg PO DAILY #45 tabs 12/25/21 [Rx Last Taken Unknown] hydroxyzine HCl 50 mg tablet 100 tab PO TID 06/09/22 [History Last Taken U nknown] prazosin 1 mg capsule 1 cap PO QHS 06/09/22 [History Last Taken Unknown] Allergy/AdvReac Type Severity Reaction Status Date / Time Iodinated Contrast Media Allergy Hives Verified 06/09/22 15:18 [Iodinated Contrast Media - IV Dye] tetracycline [Tetracycline] Allergy Hives Verified 06/09/22 15:18 pravastatin AdvReac Intermediate Upset Verified 06/09/22 15:18 Stomach atorvastatin [From Lipitor] AdvReac myalgia Verified 06/09/22 15:18 Family History Father Hypertension Colon cancer Mother Cancer LUNG CANCER/ SMOKER Father , MELANOMA No problems noted. Surgical History Aortocoronary bypass status (~05/12/04) History of abdominal surgery History of bowel resection History of cataract surgery History of cholecystectomy History of total hysterectomy Hx of appendectomy interstim placement (~08/05/20) Postsurgical percutaneous transluminal coronary angioplasty (PTCA) status (~03/12/18) Presence of coronary angioplasty implant and graft (~05/06/18) Presence of stent in coronary artery S/P partial lobectomy of lung Social History adopted: No household members: spouse housing: house number of children: 1 current occupational status: retired current occupational exposures/hazards: No Smoking Status: Current every day smoker tobacco type: cigarettes Tobacco: How many years used: 50 how long ago did patient quit smokin01/28/21 alcohol intake: never substance use type: does not use caffeine: Yes Type: coffee Number of servings: 1 ROS ROS ED ROS Narrative Cough, shortness of breath, chest pain. Review of Systems ROS Unobtainable: Denies due to encephalopathy Constitutional Constitutional ED: Denies chills or fever(s) Eyes Eyes: Denies blurry vision ENT ENT ED: Denies ear pain Cardiovascular Cardiovascular: Reports chest pain and orthopnea; Denies palpitations or racing heartbeat Respiratory/Chest Respiratory/Chest: Reports cough, dyspnea, dyspnea on exertion, orthopnea and sputum Gastrointestinal Gastrointestinal: Denies abdominal pain, constipation, diarrhea or melena Genitourinary Genitourinary ED: Denies dysuria or hematuria Musculoskeletal Musculoskeletal: Denies arthralgias Integumentary Denies abscess Neurologic Neurologic: Denies headache(s) Psychiatric Psychiatric: Denies anxiety Endocrine Endocrinology: Denies cold intolerance Hematologic/Lymphatic Hematologic/Lymphatic: Denies easy bleeding Allergic/Immunologic Allergic/Immunologic ED: Denies mouth swelling EXAM Physical Exam Narrative Exam Narrative: Is [place] female no acute distress. Vital signs stable afebrile. Pulse ox 90% room air no signs hypoxia. H EENT exam unremarkable. Neck nontender no lymphadenopathy. Lungs expiratory wheezing bilaterally. No distress. No rales or rhonchi. Heart regular rate and rhythm rate 90 no murmur. Abdomen soft nontender. Moving all 4 extremities. Calves nontender without edema or cords. Neurologically she is awake alert with no focal motor deficits. Const Vital Signs: 06/09/22 15:19 06/09/22 15:53 06/09/22 15:46 Temperature 97.5 F L Temperature Source Temporal Pulse Rate 90 95 Respiratory Rate 24 H 20 H Respiratory Effort Respiratory Depth Respiratory Pattern Tachypnea Blood Pressure 144/89 H Blood Pressure Mean 107 Pulse Ox 98 Oxygen Delivery Method Room Air Room Air 06/09/22 15:46 06/09/22 15:48 Temperature Temperature Source Pulse Rate 84 Respiratory Rate 23 H Respiratory Effort Short of Breath Respiratory Depth Normal Respiratory Pattern Tachypnea Blood Pressure 160/92 H Blood Pressure Mean 114 Pulse Ox 94 Oxygen Delivery Method Room Air Room Air Positive well nourished and well developed; Negative for obese, cachectic, contractures or unkempt General Appearance ED: well developed and NAD; Negative for unkempt, cachectic, contractures or pallor Nutritional Appearance: Negative for cachectic or obese HEENT Reports moist mucous membranes; Denies dry mucous membranes atraumatic; Negative for trauma or tenderness Mouth ED: No dry mucous membranes Mouth: No dry mucous membranes Eyes PERRL and EOMs intact bilaterally General Eye ED: Negative for pale conjunctiva or scleral icterus Neck no lymphadenopathy, supple, no meningeal signs and no JVD General: Negative for tenderness Lymph Lymphatic: Negative for other Chest Wall Chest: Negative for other Resp normal respiratory effort and No clear to auscultation bilaterally Effort and Inspection: Negative for pain with movement Auscultation: wheezes; Negative for rales or rhonchi Cardio regular rate, regular rhythm, S1 normal heart sound, S2 normal heart sound and no murmurs GI non-tender, non-distended and no masses Auscultation: normoactive bowel sounds Palpation: soft; Negative for tender or guarding Back/Spine no CVA tenderness General Back: Negative for CVA tenderness Extremity normal to inspection General Extremety ED: Negative for edema or tenderness General Extremity: Negative for edema Neuro oriented x3 Sensorium / Orientation: alert, oriented to person, oriented to place and oriented to time; Negative for orientation impaired, confused, lethargic or stuporous Speech: speech normal Motor Exam: strength 5/5 throughout Psych mental status grossly normal Appearance: Negative for unkempt Attitude: No agitated Mood & Affect: Negative for depressed or anxious Thought Process: normal thought process Skin no wounds General Skin Exam: Negative for jaundice or pallor Lesions: no lesions Rashes: no rashes Trauma: Negative for abrasion MDM MDM MDM Narrative Medical decision making narrative: See [id number] female with COPD, CAD, cardiac stents. Prior lung CA with prior resection and prior CABG. With shortness of breath last several weeks. A week of amoxicillin and prednisone did not seem to relieve her symptoms significantly. She is never had a DVT or PE. No recent travel surgery or immobilization. No hemoptysis. No pleuritic pain. Should be worked up for shortness of breath. Treated with DuoNeb Atrovent aerosols. Repeat exam patient is feeling better at 515 with the aerosols but she and I discussed all of her test results she will need admitted for further evaluation for anemia and elevated cardiac enzymes that may be from a silent AK. She will be typed and screened. I will speak to the hospitalist on admission. She will need further cardiac testing. Lab Data Attestation: I reviewed the patient's lab results. Lab results narrative: CBC shows white count of 4. H&H of 7.2 and 24 previously her hemoglobin ran around 11. She has not noticed any rectal bleeding or melena. Electrolytes show a sodium 135. Potassium of 2.8. Gap of 8. Normal BUN and creatinine. Glucose of 94. Troponin of 478. BNP is 1067. Labs: Laboratory Results - last 24 hr 06/09/22 06/09/22 06/09/22 15:50 15:50 15:50 WBC 4.0 L RBC 3.28 L Hgb 7.2 L Hct 24.4 L MCV 74.4 L MCH 22.0 L MCHC 29.5 L RDW Std Deviation 51.4 H RDW Coeff of Kit 19.0 H Plt Count 220 MPV 9.5 Immature Gran % (Auto) 0.500 Neut % (Auto) 70.7 H Lymph % (Auto) 18.4 L Lamb % (Auto) 8.6 Eos % (Auto) 1.3 Baso % (Auto) 0.5 Absolute Neuts (auto) 2.8 Absolute Lymphs (auto) 0.73 L Nucleated RBC % 0 Sodium 135 L Potassium 2.8 L Chloride 100 Carbon Dioxide 27.0 Anion Gap 8 BUN 9 Creatinine 0.93 Estim Creat Clear Calc 49.89 Est GFR (MDRD) Af Amer 78 Est GFR (MDRD) Non-Af 64 BUN/Creatinine Ratio 9.6 L Glucose 94 Calcium 8.6 Troponin I High Sens 478 H* B-Natriuretic Peptide 1067.8 H Radiography Chest X-Ray - ED: 1 View, Read by ED Physician, Heart, Lungs, Mediastinum, Bony Structures, No Acute Disease and Chronic Changes Diagnostic Testing: Clinical Impression(s) from Imaging Studies Chest X-Ray 08/03/22 16:04 IMPRESSION: Cardiomegaly. Indeterminate ill-defined opacity within the right mid lung, may be secondary to atelectasis and/or scarring however cannot exclude a neoplastic process. Electronically Signed: Karlene Mccoy MD at 16:26 EDT , Chest x-ray shows cardiomegaly. There is also chronic scarring in the right Mid lung field from prior resection. No acute infiltrate. Interpreted by myself. And the radiologist.No signs of congestive heart failure. Rhythm Strip Rhythm Strip: Sinus Rhythm Rate: 83 Ectopy: None EKG Initial EKG: Attestation: I personally reviewed and interpreted this EKG as follows: Interpretation: Sinus Rhythm Comments: Normal sinus rhythm rate 83 no acute signs of AK or ischemia on the EKG. Discharge Plan Triage Chief Complaint: Shortness of Breath ED Provider: Avila Galicia Dx/Rx/DC Orders Clinical Impression: Exertional shortness of breath, Myocardial infarction, silent, Angina of effort, Anemia, History of COPD Prescriptions: No Action primidone 50 mg tablet 100 mg PO QHS 30 Days Qty: 30 sertraline 100 mg tablet 100 mg PO DAILY nitroglycerin 0.4 mg tablet, sublingual 0.4 mg SUBLINGUAL Q5M PRN (Reason: Chest Pain) Qty: 25 3RF Label Comments: chest pain Rx Instructions: Place one tab under tongue every 5 minutes x 3 doses as needed budesonide 1 mg/2 mL suspension for nebulization 1 mg INHALATION BID Qty: 60 6RF clopidogrel 75 mg tablet 75 mg PO DAILY Qty: 90 4RF metoprolol succinate 25 mg tablet extended release 24 hr 12.5 mg PO DAILY Qty: 45 4RF ondansetron HCl [Zofran] 4 mg tablet 4 mg PO Q8H PRN (Reason: nausea and vomiting) Qty: 20 1RF Rx Instructions: take 1 tab PO q 8hrs prn nausea omeprazole 20 MG capsule 20 mg PO DAILY Label Comments: heart burn buspirone 10 MG tablet 10 mg PO TID albuterol sulfate 1 PUFF inhaler 1 puff INHALATION Q6H PRN PRN (Reason: Sob &/Or Wheezing) prazosin 1 mg capsule 1 cap PO QHS hydroxyzine HCl 50 mg tablet 100 tab PO TID furosemide 20 mg tablet 20 mg PO DAILY ipratropium-albuterol 0.5 mg-3 mg(2.5 mg base)/3 mL solution for nebulization 3 ml INHALATION Q4H PRN (Reason: shortness of breath or wheezing) Qty: 180 3RF Primary Care Provider: Phani Odom Referrals: Phani Odom MD [Primary Care Provider] - Disposition Disposition: Acute Care Hospital [facility]
[2022-06-09] MEDS: Ipratropium/Albuterol Sulfate 3 ML AMPUL.NEB INHALATION ×2 (15:44→19:40)
[2022-06-09] MEDS: Albuterol 2.5 MG/3 ML VIAL.NEB. INHALATION (15:44)
[2022-06-09 16:02] LABS: Absolute Lymphocyte Count 0.73 X10^3/uL (0.83-4.51); Absolute Neutrophil Count 2.8 X10^3/uL (2.0-7.7); Basophil# 0.02 X10^3/uL; Basophil% 0.5 % (0-1); Eosinophil# 0.05 X10^3/uL; Eosinophils% 1.3 % (0-5); Hematocrit 24.4 % (37-47); Hemoglobin 7.2 g/dL (12.0-15.0); Lymphocyte # 0.73 X10^3/ul (0.83-4.51); Lymphocyte % 18.4 % (19-41); Mean Corp Hgb Conc 29.5 g/dL (32-36); Mean Corpuscular Volume 74.4 fL (81-99); Mean Platelet Vol. 9.5 fl (6.2-12.0); Monocyte# 0.34 X10^3/uL; Monocyte% 8.6 % (0-10); NRBC Flagged by Analyzer 0 % (0-5); Neutrophil # 2.81 X10^3/uL (2.7-7.7); Neutrophil % 70.7 % (47-70); Platelet Count 220 K/mm3 (150-450); RBC Distribution Width SD 51.4 fl (35.1-43.9); Red Blood Count 3.28 M/mm3 (4.2-5.4)
--- NOTE | 2022-06-09 16:04 | RAD_ITS ---
STUDY: X-RAY CHEST REASON FOR EXAM: Female, 67 years old. Chest pain TECHNIQUE: Single frontal view of the chest. COMPARISON: 09/23/[address] dated 03/11/2022 FINDINGS: There is an ill-defined subpleural opacity within the right midlung. Sternal cerclage wires and vascular clips are present from a prior sternotomy and coronary artery bypass graft procedure (CABG). There is cardiomegaly. Normal mediastinum and jenna. Normal visualized pulmonary arteries. Normal visualized aortic arch and descending thoracic aorta. Normal visualized thoracic spine. There are postsurgical changes of the lower cervical spine. Normal visualized ribs, clavicles, and shoulders. There is no demonstrated abnormality of the visualized soft tissue structures of the upper abdomen. RAD/Chest 1 View (Portable) IMPRESSION: Cardiomegaly. Indeterminate ill-defined opacity within the right mid lung, may be secondary to atelectasis and/or scarring however cannot exclude a neoplastic process. Electronically Signed: Karlene Mccoy MD at 16:26 EDT ,
[2022-06-09 16:21] LABS: BNP,B-Type NATRIURETIC PEPTIDE 1067.8 pg/mL (0-100)
[2022-06-09 16:23] LABS: Anion Gap 8 (5-15); BUN 9 mg/dL (7-18); BUN/Creat Ratio 9.6 RATIO (10-20); Calcium,Total 8.6 mg/dL (8.5-10.1); Chloride 100 mmol/L (98-107); Creatinine, Serum 0.93 mg/dL (0.55-1.02); EST Glomerular Filtration Rate 64 mL/min (>60); Est Glom Filt Rate - Afr Amer 78 mL/min (>60); Estimated Creatinine Clearance 49.89 ml/min; Glucose 94 mg/dL (74-106); Potassium 2.8 mmol/L (3.5-5.1); Sodium Level 135 mmol/L (136-145); Troponin-I HS (w/2H Reflex) 478 pg/mL (3.0-54.0)
--- NOTE | 2022-06-09 17:24 | HP.PCM.HOS_ITS ---
Documented by User: Cynthia Moon NP, [employer] 06/09/22 17:55 HPI - General General Date of Admission: 06/09/22 Date of Service: 06/09/22 Chief Complaint: Shortness of breath. HPI Narrative TEODORO ALMEIDA, is a 67 F who presents to the emergency room due to shortness of breath. Patient states she has had ongoing shortness of breath for the past 2 to 3 weeks. She describes increased lower extremity swelling. States she has been sleeping in a chair as her breathing is worse while lying flat. She denies fever, chills. Reports intermittent productive cough. States she recently completed a course of antibiotics. She states steroids and antibiotics did not improve her symptoms. She denies chest pressure/pain. She denies blood in stool or black stools. Denies NSAID use. Denies history of GI bleed. She has a past medical history of CAD with history of PCI and bypass, ischemic cardiomyopathy, hypertension, hyperlipidemia, history of lung cancer status post excision and radiation therapy, chronic COPD, depression, anxiety, GERD. She states she follows with oncology and has had routine chest imaging. Considered in remission from lung cancer. [facility] Medical History Atherosclerotic heart disease of [place] coronary artery without angina pectoris Chest pain, unspecified COPD (chronic obstructive pulmonary disease) DDD (degenerative disc disease) Essential hypertension Lung cancer Melanoma Nonrheumatic mitral (valve) prolapse HOWARD (obstructive sleep apnea) Osteoarthritis Pericardial effusion Premature ventricular contraction Pulmonary nodules Tobacco abuse Worsening angina Home Medications omeprazole 20 mg capsule,delayed release 20 mg PO DAILY acid reflux 02/04/16 [History Last Taken 06/09/22] primidone 50 mg tablet 100 mg PO QHS seizures 30 days #30 tabs 08/17/18 [History Last Taken 06/08/22] buspirone 10 mg tablet 10 mg PO TID MOOD 06/20/19 [History Last Taken 06/09/22] furosemide 20 mg tablet 20 mg PO DAILY WATER RETENTION 08/17/19 [History Last Taken 06/09/22] albuterol sulfate 90 mcg/actuation aerosol inhaler 1 puff inhalation Q6H PRN PRN Sob &/Or Wheezing 07/28/20 [History Last Taken 06/09/22] sertraline 100 mg tablet 100 mg PO DAILY MOOD 08/11/20 [History Last Taken 06/09/22] budesonide 1 mg/2 mL suspension for nebulization 1 mg (2 mL) inhalation BID #60 mL 12/26/20 [Rx Last Taken Unknown] ipratropium 0.5 mg-albuterol 3 mg (2.5 mg base)/3 mL nebulization soln 3 ml inhalation Q4H PRN shortness of breath or wheezing #180 mL 12/29/20 [Rx Last Taken 06/08/22] nitroglycerin 0.4 mg sublingual tablet 0.4 mg sublingual Q5M PRN Chest Pain #25 tabs 02/23/21 [Rx Last Taken Unknown] ondansetron HCl 4 mg tablet (Zofran) 4 mg PO Q8H PRN nausea and vomiting #20 tabs 04/08/21 [Rx Last Taken Unknown] clopidogrel 75 mg tablet 75 mg PO DAILY #90 tabs 12/25/21 [Rx Last Taken 06/09/22] metoprolol succinate 25 mg tablet,extended release 24 hr 12.5 mg PO DAILY #45 tabs 12/25/21 [Rx Last Taken 06/09/22] hydroxyzine HCl 50 mg tablet 100 tab PO TID MOOD 06/09/22 [History Last Taken 06/09/22] prazosin 1 mg capsule 1 cap PO QHS BP 06/09/22 [History Last Taken 06/08/22] Allergy/AdvReac Type Severity Reaction Status Date / Time Iodinated Contrast Media Allergy Hives Verified 06/09/22 15:18 [Iodinated Contrast Media - IV Dye] tetracycline [Tetracycline] Allergy Hives Verified 06/09/22 15:18 pravastatin AdvReac Intermediate Upset Verified 06/09/22 15:18 Stomach atorvastatin [From Lipitor] AdvReac myalgia Verified 06/09/22 15:18 Family History Father Hypertension Colon cancer Mother Cancer LUNG CANCER/ SMOKER Father , MELANOMA No problems noted. Surgical History Aortocoronary bypass status (~05/12/04) History of abdominal surgery History of bowel resection History of cataract surgery History of cholecystectomy History of total hysterectomy Hx of appendectomy interstim placement (~08/05/20) Postsurgical percutaneous transluminal coronary angioplasty (PTCA) status (~03/12/18) Presence of coronary angioplasty implant and graft (~03/12/18) Presence of stent in coronary artery S/P partial lobectomy of lung Social History adopted: No household members: spouse housing: house number of children: 1 current occupational status: retired current occupational exposures/hazards: No Smoking Status: Current every day smoker tobacco type: cigarettes Tobacco: How many years used: 50 how long ago did patient quit smokin01/28/21 alcohol intake: never substance use type: does not use caffeine: Yes Type: coffee Number of servings: 1 ROS Constitutional Constitutional: Reports fatigue and other Details: weight gain ; Denies chills or fever(s) Cardiovascular Cardiovascular: Reports edema; Denies chest pain, lightheadedness, palpitations or syncope Respiratory/Chest Respiratory/Chest: Reports cough and dyspnea; Denies wheezing Gastrointestinal Gastrointestinal: Denies abdominal pain, constipation, diarrhea, nausea or vomiting Genitourinary Genitourinary: Denies burning urination, difficulty urinating, dysuria, hematuria, urinary frequency, urinary incontinence or urinary urgency Musculoskeletal Musculoskeletal: Denies back pain, joint pain or muscle weakness Integumentary Integumentary: Denies erythema, lesions, rash or wounds Neurologic Neurologic: Denies abnormal speech, confusion, dizziness, focal weakness, numbness, paresthesias, seizure-like activity or syncope Psychiatric Psychiatric: Denies anxiety or depression Hematologic/Lymphatic Hematologic/Lymphatic: Denies anemia, easy bleeding or easy bruising Allergic/Immunologic Allergic/Immunologic: Denies hives or asthma Vital Signs Vital Signs Vital Signs: 06/09/22 15:19 06/09/22 15:53 06/09/22 15:46 Temperature 97.5 F L Temperature Source Temporal Pulse Rate 90 95 Respiratory Rate 24 H 20 H Respiratory Effort Respiratory Depth Respiratory Pattern Tachypnea Blood Pressure 144/89 H Blood Pressure Mean 107 Pulse Ox 98 Oxygen Delivery Method Room Air Room Air 06/09/22 15:46 06/09/22 15:48 Temperature Temperature Source Pulse Rate 84 Respiratory Rate 23 H Respiratory Effort Short of Breath Respiratory Depth Normal Respiratory Pattern Tachypnea Blood Pressure 160/92 H Blood Pressure Mean 114 Pulse Ox 94 Oxygen Delivery Method Room Air Room Air Weight Weight: 160 lb Body Mass Index (BMI) 28.3 Physical Exam Const alert and oriented x3 Orientation / Consciousness: awake, oriented to person, oriented to place and oriented to time HEENT normocephalic and moist oral mucous membranes Eyes PERRL, EOMs intact bilaterally and conjunctivae normal Neck no lymphadenopathy Resp clear to auscultation bilaterally Auscultation: diminished lung sounds Cardio regular rate, regular rhythm and no murmurs Peripheral Pulses: pulses 2+ throughout GI normal to inspection, nondistended, normoactive bowel sounds, non-tender and non-distended Extremity normal to inspection Skin no rashes or lesions noted Lesions: no lesions Rashes: no rashes Trauma: no lacerations or abrasions Neuro CN's II-XII intact bilaterally, no focal motor deficits, no sensory deficits noted and deep tendon reflexes 2+ bilaterally Psych mental status grossly normal and affect normal Results Lab / Micro Data Result Diagrams: 06/09/22 15:50 06/09/22 15:50 Labs: Laboratory Results - last 24 hr 06/09/22 15:50: WBC 4.0 L, RBC 3.28 L, Hgb 7.2 L, Hct 24.4 L, MCV 74.4 L, MCH 22.0 L, MCHC 29.5 L, RDW Std Deviation 51.4 H, RDW Coeff of Kit 19.0 H, Plt Count 220, MPV 9.5, Immature Gran % (Auto) 0.500, Neut % (Auto) 70.7 H, Lymph % (Auto) 18.4 L, Wayne % (Auto) 8.6, Eos % (Auto) 1.3, Baso % (Auto) 0.5, Absolute Neuts (auto) 2.8, Absolute Lymphs (auto) 0.73 L, Nucleated RBC % 0 06/09/22 15:50: Sodium 135 L, Potassium 2.8 L, Chloride 100, Carbon Dioxide 27.0, Anion Gap 8, BUN 9, Creatinine 0.93, Estim Creat Clear Calc 49.89, Est GFR (MDRD) Af Amer 78, Est GFR (MDRD) Non-Af 64, BUN/Creatinine Ratio 9.6 L, Glucose 94, Calcium 8.6, Troponin I High Sens 478 H* 06/09/22 15:50: B-Natriuretic Peptide 1067.8 H Micro: Microbiology 06/09/22 15:45 Nasal Secretion SARS-CoV-2 Antigen (Rapid) - Final Radiology Impression Chest X-Ray 06/09/22 16:04 IMPRESSION: Cardiomegaly. Indeterminate ill-defined opacity within the right mid lung, may be secondary to atelectasis and/or scarring however cannot exclude a neoplastic process. Electronically Signed: Karlene Mccoy MD at 16:26 EDT , Assessment & Plan Assessment/Plan (1) Anemia: (2) Myocardial infarction, silent: PLAN: Plan 1. Acute microcytic anemia-check stool for occult blood. IV PPI. Trend H&H. GI consult. Hold Plavix. 2. NSTEMI-cardiology consulted. Trend enzymes. Possible demand ischemia secondary to #1. Continue beta-johny. 3. Acute on chronic heart failure with preserved ejection fraction-BNP greater than 1000. IV Lasix. Strict I&O. Daily weight. Recent echocardiogram 01/28/2022 demonstrated an EF of 65%, mild mitral valve insufficiency. 4. Acute hypokalemia-replace per protocol. Trend BMP. 5. CAD with history of PCI and bypass/Ischemic cardiomyopathy-Plavix temporarily held. Continue metoprolol. Allergy to statin. 6. Hypertension-stable, continue home regimen. 7. Hyperlipidemia-allergy to statin. 8. History of lung cancer status post surgical excision and radiation therapy- continue outpatient surveillance. 9. Chronic COPD-as needed albuterol aerosol. 10. Depression/anxiety-on buspirone, sertraline. 11. GERD-continue PPI. DVT prophylaxis-SCDs This patient was seen by MT Gomez under the supervision of Dr. Nichole. Time spent examining patient, reviewing data and subsequent management of care: 26 minutes Documented by User: Dr. Diego Nichole DO 06/09/22 20:50 HPI - General General Date of Admission: 06/09/22 [facility] Medical History Atherosclerotic heart disease of [place] coronary artery without angina pectoris Chest pain, unspecified COPD (chronic obstructive pulmonary disease) DDD (degenerative disc disease) Essential hypertension Lung cancer Melanoma Nonrheumatic mitral (valve) prolapse HOWARD (obstructive sleep apnea) Osteoarthritis Pericardial effusion Premature ventricular contraction Pulmonary nodules Tobacco abuse Worsening angina Home Medications omeprazole 20 mg capsule,delayed release 20 mg PO DAILY acid reflux 02/04/16 [History Last Taken 06/09/22] primidone 50 mg tablet 100 mg PO QHS seizures 30 days #30 tabs 08/17/18 [History Last Taken 06/08/22] buspirone 10 mg tablet 10 mg PO TID MOOD 06/20/19 [History Last Taken 06/09/22] furosemide 20 mg tablet 20 mg PO DAILY WATER RETENTION 08/17/19 [History Last Taken 06/09/22] albuterol sulfate 90 mcg/actuation aerosol inhaler 1 puff inhalation Q6H PRN PRN Sob &/Or Wheezing 07/28/20 [History Last Taken 06/09/22] sertraline 100 mg tablet 100 mg PO DAILY MOOD 08/11/20 [History Last Taken 06/09/22] budesonide 1 mg/2 mL suspension for nebulization 1 mg (2 mL) inhalation BID #60 mL 12/26/20 [Rx Last Taken Unknown] ipratropium 0.5 mg-albuterol 3 mg (2.5 mg base)/3 mL nebulization soln 3 ml inhalation Q4H PRN shortness of breath or wheezing #180 mL 12/29/20 [Rx Last Taken 06/08/22] nitroglycerin 0.4 mg sublingual tablet 0.4 mg sublingual Q5M PRN Chest Pain #25 tabs 02/23/21 [Rx Last Taken Unknown] ondansetron HCl 4 mg tablet (Zofran) 4 mg PO Q8H PRN nausea and vomiting #20 tabs 04/08/21 [Rx Last Taken Unknown] clopidogrel 75 mg tablet 75 mg PO DAILY #90 tabs 12/25/21 [Rx Last Taken 06/09/22] metoprolol succinate 25 mg tablet,extended release 24 hr 12.5 mg PO DAILY #45 tabs 12/25/21 [Rx Last Taken 06/09/22] hydroxyzine HCl 50 mg tablet 100 tab PO TID MOOD 06/09/22 [History Last Taken 06/09/22] prazosin 1 mg capsule 1 cap PO QHS BP 06/09/22 [History Last Taken 06/08/22] Allergy/AdvReac Type Severity Reaction Status Date / Time Iodinated Contrast Media Allergy Hives Verified 06/09/22 15:18 [Iodinated Contrast Media - IV Dye] tetracycline [Tetracycline] Allergy Hives Verified 06/09/22 15:18 pravastatin AdvReac Intermediate Upset Verified 06/09/22 15:18 Stomach atorvastatin [From Lipitor] AdvReac myalgia Verified 06/09/22 15:18 Family History (Reviewed 06/09/22 @ 17:24 by Cynthia Moon [employer], [employer]) Father Hypertension Colon cancer Mother Cancer LUNG CANCER/ SMOKER Father , MELANOMA No problems noted. Surgical History Aortocoronary bypass status (~05/12/04) History of abdominal surgery History of bowel resection History of cataract surgery History of cholecystectomy History of total hysterectomy Hx of appendectomy interstim placement (~08/05/20) Postsurgical percutaneous transluminal coronary angioplasty (PTCA) status (~03/12/18) Presence of coronary angioplasty implant and graft (~03/12/18) Presence of stent in coronary artery S/P partial lobectomy of lung Social History adopted: No household members: spouse housing: house number of children: 1 current occupational status: retired current occupational exposures/hazards: No Smoking Status: Current every day smoker tobacco type: cigarettes Tobacco: How many years used: 50 how long ago did patient quit smokin01/28/21 alcohol intake: never substance use type: does not use caffeine: Yes Type: coffee Number of servings: 1 Results Lab / Micro Data Result Diagrams: 06/09/22 15:50 06/09/22 15:50 Assessment & Plan Assessment/Plan (1) Anemia: (2) Myocardial infarction, silent: Charges/Coding Addendum Addendum: Patient was seen and examined independently of Cynthia Moon, she came to the emergency room today with complaints of shortness of breath patient was found to have a low hemoglobin at 7.2, patient's troponin was elevated, patient's beta natruretic peptide was elevated at 1067, and the patient's potassium was low at 2.8. On examination she appeared her stated age, she does not appear to be in any distress. Vital signs as documented. Skin warm and dry and without overt rashes. Neck without JVD, thyroid appears normal, trachea is midline, neck is supple. Lungs clear, normal air movement was noted. Heart exam notable for regular rhythm, normal sounds and absence of murmurs, rubs or gallops. Abdomen unr emarkable and without evidence of organomegaly, masses, or abdominal aortic enlargement, bowel sounds are present in all 4 quadrants, no abdominal tenderness was noted. Extremities nonedematous, no cyanosis was noted, no clubbing was noted. Neuro: Cranial nerves II through XII are grossly intact, no focal motor deficits were noted, sensation to light touch and pinprick is intact, motor exam 5/5 throughout. Psych: Patient is alert and oriented x3, she does not appear anxious or depressed, she does not appear agitated. Impression: #1 [id number] may be related to the patient's anemia, patient will be admitted to PCU, serial cardiac enzymes will be obtained, she will be seen in consultation by cardiology, limited echocardiogram will be obtained to assess LV function. #2 acute on chronic anemia-patient's last CBC in the medical record here was last year, I will obtain iron studies on the patient, she will receive packed RBCs and labs will be monitored. Patient will be placed on IV Protonix and see gastroenterology in consultation, she will need an EGD and a colonoscopy to try to determine why she is anemic. #3 chronic obstructive pulmonary disease-patient will be placed on DuoNeb aerosols along with Pulmicort aerosols #4 coronary artery disease-patient has had a previous coronary artery bypass, her last cardiac catheterization here was in 2019 and it showed the grafts to be patent. Continue present medications with the exception of Plavix. #5 essential hypertension-patient will remain on her present medications #6 hypokalemia-patient will be given supplemental potassium and labs will be repeated. #7 neurogenic bladder-patient is on Prazosin I have reviewed Cynthia Moon's history and physical including her medical assessment and plan of care and with the above additions endorse it. Total clinical time spent by myself addressing the patient's medical issues, reviewing the data, and collaborating with patient's care team: 48-minute Visit Charges Inpatient E&M: [id number] Init Hosp L3
[2022-06-09 17:55] LABS: Reflex Troponin-HS? (from REC) Y
--- NOTE | 2022-06-09 18:08 | ECHOD_ITS ---
Reason For Study: S/P GA Procedure This was a 2D Doppler, Color Flow transthoracic echocardiogram. Exam performed portable in patient room. Left Ventricle Normal LV size. Segmental dysfunction with preserved ejection fraction (see wall motion). The estimated ejection fraction is 60 %. Transmitral diastolic flow velocities suggest moderate (stage 2) diastolic dysfunction (pseudonormal pattern). Posterior-Basal: Hypokinetic. Infero-Basal: Akinetic. Mid-inferoseptal : Hypokinetic. Mid-anteroseptal : Hypokinetic. Septal Rickreall : Hypokinetic. Right Ventricle Normal RV size. Normal systolic function. Atria The left atrium is moderately enlarged. Normal right atrium. No doppler evidence for ASD. Mitral Valve There is no mitral annular calcification. Mild diffuse mitral valve thickening. The mitral valve chordae are thickened and/or calcified. Mild mitral valve prolapse. Mild mitral valve stenosis. Moderate (2+) eccentric mitral valve insufficiency. Tricuspid Valve Normal tricuspid valve. Moderate (2+) tricuspid valve insufficiency. Right ventricular systolic pressure estimated to be 57 mmHg. Aortic Valve Trisinus/trileaflet aortic valve. Normal aortic valve. Pulmonic Valve The pulmonic valve is not well visualized. Trivial pulmonic valve insufficiency. Great Vessels Normal sized aortic root. Calcified aortic root. Pericardium/Pleural No pericardial effusion. MMode/2D Measurements & Calculations LVIDd: 5.0 cm IVSd: 1.3 cm LVOT diam: 2.0 cm LVIDs: 3.2 cm LVPWd: 1.2 cm LVOT area: 3.1 cm2 RVDd: 3.4 cm FS: 35.7 % Ao root diam: 3.7 cm LAV(MOD-bp): 61.8 ml LVAd ap4: 29.5 cm2 LAV(MOD-bp) Indexed: 34.9 ml/m2 LVLd ap4: 7.9 cm LAV(MOD-sp2): 74.0 ml EDV(MOD-sp4): 88.5 ml LAV(MOD-sp4): 50.8 ml EDV(sp4-el): 93.7 ml LVAs ap4: 18.2 cm2 LVLs ap4: 7.3 cm ESV(MOD-sp4): 36.5 ml ESV(sp4-el): 38.4 ml EF(MOD-sp4): 58.7 % EF(sp4-el): 59.0 % LVAd ap2: 29.6 cm2 SV(MOD-sp4): 52.0 ml SV(MOD-sp2): 40.9 ml LVLd ap2: 7.8 cm EDV(MOD-sp2): 93.4 ml EDV(sp2-el): 95.4 ml LVAs ap2: 20.7 cm2 LVLs ap2: 7.0 cm ESV(MOD-sp2): 52.4 ml ESV(sp2-el): 51.9 ml EF(MOD-sp2): 43.9 % SV(sp4-el): 55.3 ml LA dimension(2D): 5.3 cm LA A4 area: 20.3 cm2 RA A4 area: 11.8 cm2 Doppler Measurements & Calculations MV E max talib: 205.2 cm/sec Lat Peak E' Talib: 5.0 cm/sec Med Peak E' Talib: 3.9 cm/sec MV A max talib: 168.3 cm/sec E/E' lat: 41.4 E/E' med: 52.7 MV E/A: 1.2 MV V2 max: 236.4 cm/sec MV P1/2t max talib: 230.6 cm/sec Ao V2 max: 212.9 cm/sec MV max P.4 mmHg MV P1/2t: 128.0 msec Ao max P.1 mmHg MV V2 mean: 177.7 cm/sec MV dec slope: 527.8 cm/sec2 Ao V2 mean: 134.7 cm/sec MV mean P.3 mmHg Ao mean P.5 mmHg MV V2 VTI: 59.9 cm MVA(P1/2t): 1.7 cm2 Ao V2 VTI: 37.6 cm MVA(VTI): 1.4 cm2 ANGELINA(I,D): 2.2 cm2 ANGELINA(V,D): 2.0 cm2 LV V1 max: 137.3 cm/sec SV(LVOT): 81.2 ml PA V2 max: 114.1 cm/sec LV V1 max P.5 mmHg LV V1 mean P.8 mmHg LV V1 mean: 91.0 cm/sec LV V1 VTI: 25.9 cm TR max talib: 347.5 cm/sec TR max P.5 mmHg ECHO/Echo Complete Interpretation Summary Segmental dysfunction with preserved ejection fraction (see wall motion). The estimated ejection fraction is 60 %. The left atrium is moderately enlarged. Mild diffuse mitral valve thickening. The mitral valve chordae are thickened and/or calcified. Mild mitral valve stenosis. Mild mitral valve prolapse. Moderate (2+) eccentric mitral valve insufficiency. Moderate (2+) tricuspid valve insufficiency. Trivial pulmonic valve insufficiency. Calcified aortic root. Right ventricular systolic pressure estimated to be 57 mmHg c/w pulmonary hyper tension. Transmitral diastolic flow velocities suggest diastolic dysfunction (pseudonorm al pattern). Ordering Physician: Diego Nichole Referring Physician: Sen Odom MD Performed By: Paulette Crane RDCS
[2022-06-09] MEDS: Furosemide 20 MG/2 ML VIAL 10 MG IV (18:37)
[2022-06-09] MEDS: Potassium Chloride Oral Tablet 20 MEQ 60 MEQ PO (18:37)
[2022-06-09 19:18] LABS: Iron 14 ug/dL (50-170); Iron Binding Capacity,Total 490 ug/dL (250-450); PERCENT IRON SATURATION 2.9 % (15.0-55.0); Troponin-I HS 525 pg/mL (3.0-54.0)
[2022-06-09] MEDS: Budesonide Respules 0.5 MG/2 ML AMPUL.NEB. INHALATION (19:37)
[2022-06-09] MEDS: Potassium Chloride 10mEq/100mL 10 MEQ/100 ML IV.SOLN. 100 MEQ IV BOLUS ×2 (19:51→21:09)
[2022-06-09] MEDS: hydrOXYzine PAM 25 MG Capsule 100 MG PO (22:07)
[2022-06-09] MEDS: busPIRone 5 MG Tablet 10 MG PO (22:07)
[2022-06-09 22:08] LABS: Troponin-I HS 568 pg/mL (3.0-54.0)
[2022-06-09] MEDS: Primidone 50 MG Tablet 100 MG PO (22:08)
[2022-06-09] MEDS: Doxazosin 1 MG Tablet PO (22:08)
[2022-06-10] VITALS (28 sets, daily range): BP systolic 142–170; BP diastolic 73–100; PULSE 84–95; RESP 16–26; TEMP 36.4–37.1; O2SAT 95–99
[2022-06-10] MEDS: Ipratropium/Albuterol Sulfate 3 ML AMPUL.NEB INHALATION ×5 (03:37→22:36)
[2022-06-10] MEDS: hydrOXYzine PAM 25 MG Capsule 100 MG PO ×3 (05:38→21:11)
[2022-06-10] MEDS: busPIRone 5 MG Tablet 10 MG PO (05:38)
[2022-06-10 07:10] LABS: Absolute Lymphocyte Count 0.89 X10^3/uL (0.83-4.51); Absolute Neutrophil Count 3.5 X10^3/uL (2.0-7.7); Basophil# 0.03 X10^3/uL; Basophil% 0.6 % (0-1); Eosinophil# 0.07 X10^3/uL; Eosinophils% 1.4 % (0-5); Hematocrit 34.1 % (37-47); Hemoglobin 10.7 g/dL (12.0-15.0); Lymphocyte # 0.89 X10^3/ul (0.83-4.51); Lymphocyte % 17.8 % (19-41); Mean Corp Hgb Conc 31.4 g/dL (32-36); Mean Corpuscular Hgb 24.7 pg (27.0-32.0); Mean Corpuscular Volume 78.8 fL (81-99); Mean Platelet Vol. 9.7 fl (6.2-12.0); Monocyte# 0.48 X10^3/uL; Monocyte% 9.6 % (0-10); NRBC Flagged by Analyzer 0 % (0-5); Neutrophil # 3.51 X10^3/uL (2.7-7.7); Neutrophil % 70.2 % (47-70); Platelet Count 193 K/mm3 (150-450); RBC Distribution Width CV 18.9 % (11.6-14.6); RBC Distribution Width SD 53.9 fl (35.1-43.9); Red Blood Count 4.33 M/mm3 (4.2-5.4)
[2022-06-10] MEDS: Budesonide Respules 0.5 MG/2 ML AMPUL.NEB. INHALATION ×2 (07:12→20:05)
[2022-06-10 07:43] LABS: Anion Gap 9 (5-15); BUN 8 mg/dL (7-18); BUN/Creat Ratio 8.9 RATIO (10-20); Calcium,Total 8.4 mg/dL (8.5-10.1); Chloride 102 mmol/L (98-107); EST Glomerular Filtration Rate 67 mL/min (>60); Est Glom Filt Rate - Afr Amer 81 mL/min (>60); Estimated Creatinine Clearance 51.55 ml/min; Glucose 119 mg/dL (74-106); Potassium 3.5 mmol/L (3.5-5.1); Sodium Level 134 mmol/L (136-145)
--- NOTE | 2022-06-10 09:00 | PCM.CONS.C ---
Assessment & Plan Assessment/Plan (1) Abnormal cardiac enzyme level: PLAN: The patient has elevated high-sensitivity troponin I levels. She does not appear to have acute ECG changes. The etiology may be related to a non-STEMI type II event secondary to her anemia superimposed upon her underlying cardiovascular condition. At the present time her enzymes have been monitored. They have not demonstrated a peak and decline. Her cardiac rhythm is remained sinus rhythm. She will continue to be monitored. She will continue medical therapy as deemed appropriate although her antiplatelet therapy has been placed on hold secondary to concerns of her anemia which may be related to a gastrointestinal bleeding process. She has recently undergone noninvasive evaluation as noted. Depending upon her clinical course she may or may not need additional cardiac diagnostic studies performed. However at the moment it appears appropriate to proceed with her PRBC transfusion to increase her hemoglobin level and thus assist with her oxygen carrying capacity. It also appears appropriate to proceed with noncardiac/gastrointestinal evaluation to evaluate for gastrointestinal bleeding source. She does not appear to be an ideal candidate for invasive cardiovascular studies at this time as there would be limits with respect to her ability to take antiplatelet or anticoagulant therapy. (2) CAD (coronary artery disease): PLAN: She does have a history of extensive CAD. Again she will continue risk factor modification medical therapy. (3) Presence of stent in coronary artery: PLAN: She has a history of PCI. Her most recent PCI is as noted. She will continue medical management and follow-up. (4) Aortocoronary bypass status: PLAN: She has a history of CABG. Her most recent diagnostic cardiac catheterization is noted and reviewed. She will continue medical management. (5) MVP (mitral valve prolapse): PLAN: She has a history of MVP. She will continue to be followed by history, exam, and echocardiographic studies as deemed appropriate. (6) Premature ventricular contraction: PLAN: She has a history of PVCs. Her current cardiac awake overnight monitor demonstrates continued evidence of PVCs. Her cardiac rhythm can be monitored during her hospital stay for any additional concerns or require additional evaluation and/or care. (7) Pure hypercholesterolemia: PLAN: The patient has reported intolerance to statin therapy based upon concerns of myalgias. She should continue risk factor evaluation and care as deemed appropriate. (8) Essential hypertension: PLAN: Her blood pressure will need to be monitored for any significant changes that warrant adjustment of her medications. (9) COPD (chronic obstructive pulmonary disease): PLAN: She has a history of underlying COPD. She does need to continue evaluation care per internal medicine and pulmonology. (10) Adenocarcinoma of lung, stage 1: QUALIFIERS: Laterality: right Qualified Code(s): C34.91 - Malignant neoplasm of unspecified part of right bronchus or lung PLAN: She has a history of adenocarcinoma of the lung. She has undergone a right lateral thoracotomy as well as radiation therapy. She will need continued follow-up for any obvious evidence of recurrence. (11) Anemia: PLAN: At the moment her main concern is her marked anemia and the etiology of her anemia with concerns being a gastrointestinal bleeding process. Again this could exacerbate her underlying cardiovascular condition and bring out abnormal high-sensitivity troponin I levels and a type II non-STEMI event. Thus at the moment she will continue cardiovascular monitoring and support as deemed appropriate. She will continue with additional cardiovascular studies as needed. She is avoiding antiplatelet therapy at this time. She has received PRBCs which appear to be appropriate to assist with her oxygen carrying capacity and hopefully her clinical course, etc. She is pending further gastrointestinal evaluation with consideration for EGD and colonoscopy. Addt'l Comments The patient's case has been discussed and reviewed with the patient and Dr. Nichole. This note was generated using a voice recognition system and there may be incorrect words, spelling or punctuation that were not noted when reviewing the office note prior to saving. HPI Consult Data Date of Consult: 06/10/22 HPI Narrative HPI Narrative: TEODORO ALMEIDA, is a 67 year old white female who presents for cardiovascular consultation based upon concerns of abnormal high-sensitivity troponin I levels superimposed upon a history of underlying premature CAD with multi coronary revascularization procedures including both PCI and CABG, and ischemic mediated cardiomyopathy, MVP, hyperlipidemia, hypertension, COPD, lung carcinoma status post surgical excision (right thoracotomy) and subsequent radiation therapy, now superimposed upon marked anemia of uncertain etiology. The patient states that she has been progressively short of breath and dyspneic for at least 2 weeks. She states it was the shortness of breath and dyspnea that brought her to the [facility] emergency department for additional evaluation. Based upon her cardiovascular history she underwent evaluation in the emergency department that demonstrated elevation of her high-sensitivity troponin I levels. An ECG demonstrated sinus rhythm with no acute ECG changes. Additional laboratory studies demonstrated that she had findings of a hemoglobin level of 7.2. Her chest x-ray was reported as demonstrating an ill-defined opacity in the right midlung area potentially related to atelectasis and/or scarring although neoplastic process could not be excluded. She was subsequently placed in the PCU for further evaluation and care. She has had repeat high-sensitivity troponin I levels without a significant peak and decline. Her cardiac rhythm has remained sinus rhythm with an occasional premature ectopic complex. During her time in the PCU she also received PRBC transfusion. Her hemoglobin level has increased to 10.7. She notes that during her time of shortness of breath and dyspnea she has felt intermittent chest discomfort which does radiate to her left arm area. She states this is not necessarily a new issue and it has not significantly changed during this time. She states her main concern has been her shortness of breath and dyspnea. She did not describe acute orthopnea or PND and she has not developed peripheral pitting edema. There is been no near-syncope or syncope. FORMERLY [facility] Medical History Atherosclerotic heart disease of [place] coronary artery without angina pectoris Chest pain, unspecified COPD (chronic obstructive pulmonary disease) DDD (degenerative disc disease) Essential hypertension Lung cancer Melanoma Nonrheumatic mitral (valve) prolapse HOWARD (obstructive sleep apnea) Osteoarthritis Pericardial effusion Premature ventricular contraction Pulmonary nodules Tobacco abuse Worsening angina Home Medications omeprazole 20 mg capsule,delayed release 20 mg PO DAILY acid reflux 02/04/16 [History Last Taken 06/09/22] primidone 50 mg tablet 100 mg PO QHS seizures 30 days #30 tabs 08/17/18 [History Last Taken 06/08/22] buspirone 10 mg tablet 10 mg PO TID MOOD 06/20/19 [History Last Taken 06/09/22] furosemide 20 mg tablet 20 mg PO DAILY WATER RETENTION 08/17/19 [History Last Taken 06/09/22] albuterol sulfate 90 mcg/actuation aerosol inhaler 1 puff inhalation Q6H PRN PRN Sob &/Or Wheezing 07/28/20 [History Last Taken 06/09/22] sertraline 100 mg tablet 100 mg PO DAILY MOOD 08/11/20 [History Last Taken 06/09/22] budesonide 1 mg/2 mL suspension for nebulization 1 mg (2 mL) inhalation BID #60 mL 02/19/21 [Rx Last Taken Unknown] ipratropium 0.5 mg-albuterol 3 mg (2.5 mg base)/3 mL nebulization soln 3 ml inhalation Q4H PRN shortness of breath or wheezing #180 mL 12/29/20 [Rx Last Taken 06/08/22] nitroglycerin 0.4 mg sublingual tablet 0.4 mg sublingual Q5M PRN Chest Pain #25 tabs 02/23/21 [Rx Last Taken Unknown] ondansetron HCl 4 mg tablet (Zofran) 4 mg PO Q8H PRN nausea and vomiting #20 tabs 04/08/21 [Rx Last Taken Unknown] clopidogrel 75 mg tablet 75 mg PO DAILY #90 tabs 12/25/21 [Rx Last Taken 06/09/22] metoprolol succinate 25 mg tablet,extended release 24 hr 12.5 mg PO DAILY #45 tabs 12/25/21 [Rx Last Taken 06/09/22] hydroxyzine HCl 50 mg tablet 100 tab PO TID MOOD 06/09/22 [History Last Taken 06/09/22] prazosin 1 mg capsule 1 cap PO QHS BP 06/09/22 [History Last Taken 06/08/22] Allergy/AdvReac Type Severity Reaction Status Date / Time Iodinated Contrast Media Allergy Hives Verified 06/09/22 15:18 [Iodinated Contrast Media - IV Dye] tetracycline [Tetracycline] Allergy Hives Verified 06/09/22 15:18 pravastatin AdvReac Intermediate Upset Verified 06/09/22 15:18 Stomach atorvastatin [From Lipitor] AdvReac myalgia Verified 06/09/22 15:18 Family History Father Hypertension Colon cancer Mother Cancer LUNG CANCER/ SMOKER Father , MELANOMA No problems noted. Surgical History Aortocoronary bypass status (~05/12/04) History of abdominal surgery History of bowel resection History of cataract surgery History of cholecystectomy History of total hysterectomy Hx of appendectomy interstim placement (~08/05/20) Postsurgical percutaneous transluminal coronary angioplasty (PTCA) status (~03/12/18) Presence of coronary angioplasty implant and graft (~03/12/18) Presence of stent in coronary artery S/P partial lobectomy of lung Social History (Reviewed 06/09/22 @ 17:24 by Cynthia Moon DIRECTOR [employer], [employer]-C) adopted: No household members: spouse housing: house number of children: 1 current occupational status: retired current occupational exposures/hazards: No Smoking Status: Current every day smoker tobacco type: cigarettes Tobacco: How many years used: 50 how long ago did patient quit smokin01/28/21 alcohol intake: never substance use type: does not use caffeine: Yes Type: coffee Number of servings: 1 ROS Constitutional Constitutional: Reports as per HPI Eyes Eyes: Reports as per HPI ENT HEENT: Reports as per HPI Cardiovascular Cardiovascular: Reports chest pain and dyspnea Respiratory/Chest Respiratory/Chest: Reports dyspnea Gastrointestinal Gastrointestinal: Reports as per HPI Genitourinary Genitourinary: Reports as per HPI Musculoskeletal Musculoskeletal: Reports as per HPI Integumentary Integumentary: Reports as per HPI Neurologic Neurologic: Reports as per HPI Psychiatric Psychiatric: Reports as per HPI Physical Exam Const alert and oriented x3 Orientation / Consciousness: awake HEENT normocephalic, head/scalp atraumatic and hearing grossly normal bilaterally Eyes PERRL, EOMs intact bilaterally and conjunctivae normal Neck full ROM, supple and no JVD Chest Chest Narrative: Right lateral thoracotomy scar Resp Auscultation: wheezes scattered wheezes and diminished lung sounds bilateral throughout Cardio regular rate, regular rhythm, S1 normal heart sound and S2 normal heart sound Rhythm: abnormal rhythm ectopic beats Heart Sounds: click mid and abnormal sounds GI normal to inspection, nondistended, normoactive bowel sounds Extremity no pedal edema Skin no rashes or lesions noted Psych mental status grossly normal Risk Stratification Risk Stratification Applicable: Yes Age >/= 65: Yes >/= 3 CAD Risk Factors (HTN, HLD, DM, family hx of CAD, or current smoker): Yes Aspirin Use in the Past 7 Days: No Severe Angina (>/= episodes in 24 hours): No EKG ST Changes >/= 0.5mm: No Positive Cardiac Marker: Yes LIZETH Risk Stratification Score: 3 LIZETH % Risk: 13% Risk Procedure Criteria Type of Procedure Procedure Type: Elective Elective Risks - COVID COVID Risk Discussion: The surgeon/proceduralist and patient have discussed in detail the risk of exposure to and/or potential harm posed by the COVID-19 virus with having a surgery/procedure at this time versus the risk of delaying the surgery/procedure. It is not possible to know either the risk of delaying the surgery or procedure or chance of getting an infection with perfect accuracy, but a joint decision was made between the patient and the surgeon/proceduralist to proceed at this time with the scheduled surgery/procedure as indicated on the consent form. Objective Data Vital Signs: Vital Signs Temp Pulse Resp BP Pulse Ox O2 Del Method 98.5 F 87 20 H 170/100 H 95 Room Air 06/10/22 05:43 06/10/22 07:02 06/10/22 05:43 06/10/22 05:43 06/10/22 05:43 06/10/22 05:43 Oxygen Delivery Method Room Air Weight: 163 lb 9.328 oz Body Mass Index (BMI) 29.0 Intake & Output: Intake and Output for Last 24 Hours 06/08/22 06/09/22 06/10/22 23:59 23:59 23:59 Intake Total 710 / 1550 1640 / 1640 Output Total 950 / 950 Balance 710 / 600 690 / 690 Lab / Micro Data Result Diagrams: 06/10/22 06:46 06/10/22 06:46 Labs: Laboratory Results - last 24 hr 06/09/22 15:50: WBC 4.0 L, RBC 3.28 L, Hgb 7.2 L, Hct 24.4 L, MCV 74.4 L, MCH 22.0 L, MCHC 29.5 L, RDW Std Deviation 51.4 H, RDW Coeff of Kit 19.0 H, Plt Count 220, MPV 9.5, Immature Gran % (Auto) 0.500, Neut % (Auto) 70.7 H, Lymph % (Auto) 18.4 L, Donley % (Auto) 8.6, Eos % (Auto) 1.3, Baso % (Auto) 0.5, Absolute Neuts (auto) 2.8, Absolute Lymphs (auto) 0.73 L, Nucleated RBC % 0 06/09/22 15:50: Sodium 135 L, Potassium 2.8 L, Chloride 100, Carbon Dioxide 27.0, Anion Gap 8, BUN 9, Creatinine 0.93, Estim Creat Clear Calc 49.89, Est GFR (MDRD) Af Amer 78, Est GFR (MDRD) Non-Af 64, BUN/Creatinine Ratio 9.6 L, Glucose 94, Calcium 8.6, Troponin I High Sens 478 H* 06/09/22 15:50: B-Natriuretic Peptide 1067.8 H 06/09/22 17:20: Blood Type A POSITIVE, Antibody Screen NEGATIVE 06/09/22 17:20: Crossmatch See Detail 06/09/22 18:25: Iron 14 L, TIBC 490 H, Iron Saturation 2.9 L, Troponin I High Sens 525 H* 06/09/22 21:30: Troponin I High Sens 568 H* 06/09/22 21:30: Magnesium 2.0 06/10/22 06:46: WBC 5.0, RBC 4.33, Hgb 10.7 L, Hct 34.1 L, MCV 78.8 L D, MCH 24.7 L, MCHC 31.4 L D, RDW Std Deviation 53.9 H, RDW Coeff of Kit 18.9 H, Plt Count 193, MPV 9.7, Immature Gran % (Auto) 0.400, Neut % (Auto) 70.2 H, Lymph % (Auto) 17.8 L, Donley % (Auto) 9.6, Eos % (Auto) 1.4, Baso % (Auto) 0.6, Absolute Neuts (auto) 3.5, Absolute Lymphs (auto) 0.89, Nucleated RBC % 0 06/10/22 06:46: Sodium 134 L, Potassium 3.5, Chloride 102, Carbon Dioxide 23.0, Anion Gap 9, BUN 8, Creatinine 0.90, Estim Creat Clear Calc 51.55, Est GFR (MDRD) Af Amer 81, Est GFR (MDRD) Non-Af 67, BUN/Creatinine Ratio 8.9 L, Glucose 119 H, Calcium 8.4 L Micro: Microbiology 06/09/22 15:45 Nasal Secretion SARS-CoV-2 Antigen (Rapid) - Final Rhythm Strip Rhythm Strip: Sinus Rhythm Rate: 83 Ectopy: None Cardiology Labs/Tests 06/09/22 15:50: WBC 4.0 L, RBC 3.28 L, Hgb 7.2 L, Hct 24.4 L, MCV 74.4 L, MCH 22.0 L, MCHC 29.5 L, Plt Count 220, MPV 9.5, Immature Gran % (Auto) 0.500, Neut % (Auto) 70.7 H, Lymph % (Auto) 18.4 L, Donley % (Auto) 8.6, Eos % (Auto) 1.3, Baso % (Auto) 0.5, Absolute Neuts (auto) 2.8, Nucleated RBC % 0 06/09/22 15:50: Sodium 135 L, Potassium 2.8 L, Chloride 100, Carbon Dioxide 27.0, Anion Gap 8, BUN 9, Creatinine 0.93, Est GFR (MDRD) Af Amer 78, Est GFR (MDRD) Non-Af 64, BUN/Creatinine Ratio 9.6 L, Glucose 94, Calcium 8.6 06/09/22 15:50: B-Natriuretic Peptide 1067.8 H 06/09/22 18:25: Iron 14 L, TIBC 490 H, Iron Saturation 2.9 L 06/09/22 21:30: Magnesium 2.0 06/10/22 06:46: WBC 5.0, RBC 4.33, Hgb 10.7 L, Hct 34.1 L, MCV 78.8 L D, MCH 24.7 L, MCHC 31.4 L D, Plt Count 193, MPV 9.7, Immature Gran % (Auto) 0.400, Neut % (Auto) 70.2 H, Lymph % (Auto) 17.8 L, Donley % (Auto) 9.6, Eos % (Auto) 1.4, Baso % (Auto) 0.6, Absolute Neuts (auto) 3.5, Nucleated RBC % 0 06/10/22 06:46: Sodium 134 L, Potassium 3.5, Chloride 102, Carbon Dioxide 23.0, Anion Gap 9, BUN 8, Creatinine 0.90, Est GFR (MDRD) Af Amer 81, Est GFR (MDRD) Non-Af 67, BUN/Creatinine Ratio 8.9 L, Glucose 119 H, Calcium 8.4 L Rhythm: Sinus rhythm EKG: As noted above Transthoracic echocardiogram from 11/16/2016: Segmental dysfunction with preserved ejection fraction (see wall motion). The estimated ejection fraction is 60 %. The left atrium is mildly enlarged. Mild mitral valve prolapse. Mild (1+) eccentric mitral valve insufficiency. Trivial tricuspid valve insufficiency. Mild focal aortic valve thickening. Trivial pulmonic valve insufficiency. Calcified aortic root. Right ventricular systolic pressure estimated to be 35 mmHg. Transmitral doppler flow suggestive of impaired relaxation of left ventricle Echocardiogram in 04/15/2019: Normal LV size. Left ventricular systolic function is normal. The estimated ejection fraction is 65 %. Stage 2 diastolic dysfunction. Mild mitral valve prolapse. Contrast injection was performed. Echocardiogram from 08/19/2020: Interpretation Summary The study was technically difficult. Segmental dysfunction with preserved ejection fraction (see wall motion). The estimated ejection fraction is 65 %. The left atrium is mildly enlarged. Mild diffuse mitral valve thickening. The mitral valve chordae are thickened and/or calcified. Mild mitral valve prolapse. Mild (1+) eccentric mitral valve insufficiency. Trivial tricuspid valve insufficiency. Mild focal aortic valve calcification. Unable to estimate RV systolic pressure/pulmonary artery pressure due to technically difficult study. Unable to assess diastolic dysfunction. Echocardiogram: 01-28-2022 Interpretation Summary The study was technically difficult. ? Segmental dysfunction with preserved ejection fraction (see wall motion). The estimated ejection fraction is 65 %. The left atrium is mildly enlarged. Mild diffuse mitral valve thickening. Mild mitral valve prolapse. Mild (1+) mitral valve insufficiency. Trivial tricuspid valve insufficiency. Calcified aortic root. Unable to estimate RV systolic pressure/pulmonary artery pressure due to technically difficult study. There is evidence of diastolic dysfunction. ? Pharmacologic stress nuclear imaging study from 02/12/2016: IMPRESSION: ?1.? Rest and stress SPECT Cardiolite nuclear imaging demonstrate myocardial perfusion ?changes appearing compatible with the effects of previous myocardial injury/infarction ?involving portions of the basal inferior segments as well as physiologic apical thinning ?with no myocardial perfusion changes considered diagnostic for associated stress-induced ?myocardial ischemia. ?2.? The gated Cardiolite study reports an LVEF of 59%. Stress test from 04/16/2019: Normal pharmacologic myocardial perfusion stress test. Preserved ejection fraction. Cardiac catheterization/PCI from 03/12/2018 at [facility]:?Left ventricle with an LVEF of 20-25%; left main coronary artery with in-stent restenosis of 75-80%; LAD with no significant disease reported; LCx with 100% stenosis; RCA with 100% stenosis; intermediate ramus with no significant disease noted; GREEN to the LAD patent; SVG to the third OM patent; SVG to the right PDA patent; mitral valve insufficiency of grade 2-3; aortic root dilated; status post subsequent PTCA to the mid left main coronary artery Cardiac cath from 06/21/2019: CONCLUSIONS Elevated Left Ventricular End Diastolic Pressure LVEF: by LV gram 55 % [place] Multivessel CAD GREEN to LAD: patent SVG to OM3: patent SVG to RCA: patent Left to left collateral flow Right to left collateral flow RECOMMENDATIONS Medical therapy Risk factor modification CORONARY ANGIOGRAPHY DOMINANCE:? Right Dominant LEFT HEART ASSESSMENT Left Ventricular Ejection Fraction: by LV Gram 55 % Inferior Basal Akinesis Elevated Left Ventricular End Diastolic Pressure LVEDP: 22 mmHg LEFT MAIN: Previously placed stent has an instent 10 - 25 % restenosis LEFT ANTERIOR DESCENDING ARTERY: PROX LAD: Previously placed stent is patent, Mild luminal irregularities MID LAD: fills from antegrade flow and GREEN flow with no angiographically significant appearing disease distal to the graft attachment DIAGONAL 1: Proximal - Mild luminal irregularities CIRCUMFLEX ARTERY: PROX CIRC: Previously placed stent is occluded RAMUS: Previously placed stent is occluded RIGHT CORONARY ARTERY: OSTIAL RCA: is occluded GRAFTS: ?GREEN graft to the Mid LAD is patent Saphenous Vein graft to the 3rd OM is patent with no angiographically significant disease distal to the anastomosis and providing left to left collateral flow Saphenous Vein graft to the Distal CIRC is patent with no angiographically significant disease distal to the anastomosis and providing right to left collateral flow COLLATERAL FLOW: Collateral flow from Left to Left Collateral flow from Right to Left PCI: 03-12-2018: [facility]: Successful PCI with PTCA to the mid left main in-stent restenosis CABG from 05/12/2004 [facility]: GREEN to the LAD, SVG to the ramus intermedius of the circumflex system and SVG to the RCA Pulmonary function test from 11/03/2020: IMPRESSION: Partially reversible moderate mixed ventilatory defect with preserved diffusing capacity. Radiography Diagnostic Testing: Radiology Impression Chest X-Ray 06/09/22 16:04 IMPRESSION: Cardiomegaly. Indeterminate ill-defined opacity within the right mid lung, may be secondary to atelectasis and/or scarring however cannot exclude a neoplastic process. Electronically Signed: Karlene Mccoy MD at 16:26 EDT ,
[2022-06-10] MEDS: Metoprolol(XL)Succ 25 MG Tablet 12.5 MG PO (09:59)
[2022-06-10] MEDS: Furosemide 20 MG Tablet PO (09:59)
[2022-06-10] MEDS: Potassium Chloride Oral Tablet 20 MEQ 40 MEQ PO (09:59)
[2022-06-10] MEDS: Sertraline 100 MG Tablet PO (10:00)
--- NOTE | 2022-06-10 11:55 | CASEMGMT ---
MARIA TERESA OGLESBY assessment: Face to Face with patient for initial transition planning/care coordination assessment. MARIA TERESA OGLESBY introduced self and role at [facility], pt voices understanding and consents to assessment. Pt is sitting up in bed in no distress on room air. Pt is A/Ox4 and answers all questions appropriately.? Care providers, pharmacy,?and demographics verified. ? Presentation: Pt c/o SOBx2 weeks, saw Dr. Macias 2 weeks ago-finished antibx and prednisone w/ no relief-hx COPD Admitting dx: Acute anemia, NSTEMI PCP: Ilene Specialists: Gloria, cardio; Gilberto pulmilind [facility]acy: [facility] Insurance: [facility] Prescription Benefit:?Anth[employer] Living Will/HPOA: Pt has LW/HPOA and is aware that it is on file at [facility]. Pt states her , Philipp Banda, is HPOA. LNOK: Philipp Banda, /HPOA; Tracey Cheney, daughter Living Arrangements: Pt lives with in mobile home with ramp and states no concerns at home. Pt is normally independent with ADL's but states has been very weak for last several weeks. Transportation: Pt drives self and states no transportation concerns. DME/HHC: Pt has a bipap at home but does not use. Pt states no need for any further DME. Pt states no hx of HHC or SNF. Pt states some concerns with going home at time of discharge d/t recent weakness and therapy ordered for pt at this time. Pt is retired. Pt states does not smoke cigarettes or drink ETOH. Pt states no further concerns/needs. CM to follow for therapy notes and any further discharge planning/needs. Advised pt to ask for CM if any further questions/concerns/needs arise, voices understanding. Pt Goal: Home Plan[place] MARIA TERESA OGLESBY
--- NOTE | 2022-06-10 12:13 | PCM.PN.HOSP ---
Documented by User: Gregoria Gonzalez NP-Olamide 06/10/22 15:31 Subjective Subjective Patient seen and examined. Patient lying in bed no distress noted. Patient currently undergoing echocardiogram. Objective Data Objective Data Vital Signs: Vital Signs Temp Pulse Resp BP Pulse Ox O2 Del Method 97.7 F L 86 24 H 158/90 H 95 Room Air 06/10/22 09:48 06/10/22 12:06 06/10/22 12:06 06/10/22 09:59 06/10/22 12:06 06/10/22 12:06 Oxygen Delivery Method Room Air Weight: 163 lb 9.328 oz Body Mass Index (BMI) 29.0 Intake & Output: Intake and Output for Last 24 Hours 06/08/22 06/09/22 06/10/22 23:59 23:59 23:59 Intake Total 710 / 1550 1750 / 1750 Output Total 950 / 950 Balance 710 / 600 800 / 800 Lab / Micro Data Result Diagrams: 06/10/22 06:46 06/10/22 06:46 Labs: Laboratory Results - last 24 hr 06/09/22 15:50: WBC 4.0 L, RBC 3.28 L, Hgb 7.2 L, Hct 24.4 L, MCV 74.4 L, MCH 22.0 L, MCHC 29.5 L, RDW Std Deviation 51.4 H, RDW Coeff of Kit 19.0 H, Plt Count 220, MPV 9.5, Immature Gran % (Auto) 0.500, Neut % (Auto) 70.7 H, Lymph % (Auto) 18.4 L, [place] % (Auto) 8.6, Eos % (Auto) 1.3, Baso % (Auto) 0.5, Absolute Neuts (auto) 2.8, Absolute Lymphs (auto) 0.73 L, Nucleated RBC % 0 06/09/22 15:50: Sodium 135 L, Potassium 2.8 L, Chloride 100, Carbon Dioxide 27.0, Anion Gap 8, BUN 9, Creatinine 0.93, Estim Creat Clear Calc 49.89, Est GFR (MDRD) Af Amer 78, Est GFR (MDRD) Non-Af 64, BUN/Creatinine Ratio 9.6 L, Glucose 94, Calcium 8.6, Troponin I High Sens 478 H* 06/09/22 15:50: B-Natriuretic Peptide 1067.8 H 06/09/22 17:20: Blood Type A POSITIVE, Antibody Screen NEGATIVE 06/09/22 17:20: Crossmatch See Detail 06/09/22 18:25: Iron 14 L, TIBC 490 H, Iron Saturation 2.9 L, Troponin I High Sens 525 H* 06/09/22 21:30: Troponin I High Sens 568 H* 06/09/22 21:30: Magnesium 2.0 06/10/22 06:46: WBC 5.0, RBC 4.33, Hgb 10.7 L, Hct 34.1 L, MCV 78.8 L D, MCH 24.7 L, MCHC 31.4 L D, RDW Std Deviation 53.9 H, RDW Coeff of Kit 18.9 H, Plt Count 193, MPV 9.7, Immature Gran % (Auto) 0.400, Neut % (Auto) 70.2 H, Lymph % (Auto) 17.8 L, [place] % (Auto) 9.6, Eos % (Auto) 1.4, Baso % (Auto) 0.6, Absolute Neuts (auto) 3.5, Absolute Lymphs (auto) 0.89, Nucleated RBC % 0 06/10/22 06:46: Sodium 134 L, Potassium 3.5, Chloride 102, Carbon Dioxide 23.0, Anion Gap 9, BUN 8, Creatinine 0.90, Estim Creat Clear Calc 51.55, Est GFR (MDRD) Af Amer 81, Est GFR (MDRD) Non-Af 67, BUN/Creatinine Ratio 8.9 L, Glucose 119 H, Calcium 8.4 L Micro: Microbiology 06/09/22 15:45 Nasal Secretion SARS-CoV-2 Antigen (Rapid) - Final Radiography Diagnostic Testing: Radiology Impression Chest X-Ray 06/09/22 16:04 IMPRESSION: Cardiomegaly. Indeterminate ill-defined opacity within the right mid lung, may be secondary to atelectasis and/or scarring however cannot exclude a neoplastic process. Electronically Signed: Karlene Mccoy MD at 16:26 EDT Reading Location ID and State: [facility] / [place] Tel , Service support , Rhythm Strip Rhythm Strip: Sinus Rhythm Rate: 83 Ectopy: None Physical Exam Const alert and oriented x3 Orientation / Consciousness: awake HEENT normocephalic and moist oral mucous membranes Eyes conjunctivae normal Neck no lymphadenopathy Resp clear to auscultation bilaterally Cardio regular rate and regular rhythm Peripheral Pulses: pulses 2+ throughout GI normal to inspection, nondistended, normoactive bowel sounds and non-tender Extremity normal to inspection Skin no rashes or lesions noted Lesions: no lesions Rashes: no rashes Trauma: no lacerations or abrasions Neuro no focal motor deficits and no sensory deficits noted Psych mental status grossly normal and affect normal Assessment & Plan Assessment/Plan (1) Anemia: (2) Myocardial infarction, silent: PLAN: Plan 1. Acute microcytic anemia -Continue IV pantoprazole -Hemoglobin 10.7 following administration of 3 units packed red blood cells overnight -GI consult. -Hold Plavix. -Iron and iron saturations low, TIBC high. Patient received IV ferric sodium gluconate 2. NSTEMI -cardiology following -Cardiac enzymes continuing to trend up -possible demand ischemia secondary to #1. -Continue beta-johny. 3. Acute on chronic heart failure with preserved ejection fraction -BNP greater than 1000. -Continue IV Lasix. -Strict I&O and daily weight. -Recent echocardiogram 01/28/2022 demonstrated an EF of 65%, mild mitral valve insufficiency. Repeat echocardiogram pending 4. Acute hypokalemia -Potassium 3.5 today -Trend BMP. 5. CAD with history of PCI and bypass/Ischemic cardiomyopathy -Plavix temporarily held. -Continue metoprolol. 6. Hypertension -Vital sign per protocol, currently stable -continue furosemide, metoprolol, prazosin 7. Hyperlipidemia -Not currently on statin therapy due to allergy 8. History of lung cancer status post surgical excision and radiation therapy -continue outpatient surveillance. 9. Chronic COPD -as needed albuterol aerosol. 10. Depression/anxiety -on buspirone, sertraline. DVT prophylaxis-SCDs This patient was seen by MT Arciniega under the supervision of Dr. Nichole. 13 minutes spent in clinical coordination of patient's plan of care. Documented by User: Dr. Diego Nichole DO 06/10/22 16:23 Objective Data Lab / Micro Data Result Diagrams: 06/10/22 06:46 06/10/22 06:46 Assessment & Plan Assessment/Plan (1) Anemia: (2) Myocardial infarction, silent: Charges/Coding Addendum Addendum: Patient was seen and examined today independently of Destiny Gonzalez, her hemoglobin today was 10.7, I talked briefly with cardiology as well as gastroenterology. Cardiology does not feel they want to proceed with any invasive procedures such as a cardiac catheterization at this time, patient is scheduled for an EGD and a colonoscopy tomorrow. Patient's anemia appears to be iron deficiency-her iron level 14. I gave the patient a dose of Venofer today, I will repeat this tomorrow. On examination she appeared in good health and spirits, she does not appear to be in any distress. Vital signs as documented. Skin warm and dry and without overt rashes. Neck without JVD, thyroid appears normal, trachea is midline, neck is supple. Lungs clear, normal air movement was noted. Heart exam notable for regular rhythm, normal sounds and absence of murmurs, rubs or gallops. Abdomen unremarkable and without evidence of organomegaly, masses, or abdominal aortic enlargement, bowel sounds are present in all 4 quadrants, no abdominal tenderness was noted. Extremities nonedematous, no cyanosis was noted, no clubbing was noted. Neuro: Cranial nerves II through XII are grossly intact, no focal motor deficits were noted, sensation to light touch and pinprick is intact, motor exam 5/5 throughout. Psych: Patient is alert and oriented x3, she does not appear anxious or depressed, she does not appear agitated. #1 [id number] may be related to the patient's anemia, patient's echocardiogram today showed a normal EF with moderate pulmonary hypertension, there was moderate mitral valve insufficiency and moderate tricuspid valve insufficiency. Cardiology stated to me that there were no plans for any cardiac catheterization at this time. #2 acute on chronic iron deficiency anemia-patient will receive IV iron tomorrow, she got a dose today also, patient will undergo an EGD and a colonoscopy tomorrow #3 chronic obstructive pulmonary disease-patient will be placed on DuoNeb aerosols along with Pulmicort aerosols #4 coronary artery disease-patient has had a previous coronary artery bypass, her last cardiac catheterization here was in 2019 and it showed the grafts to be patent.? Continue present medications with the exception of Plavix. Cardiology is participating in her care #5 essential hypertension-patient will remain on her present medications #6 hypokalemia-corrected at this time after the administration of potassium #7 neurogenic bladder-patient is on Prazosin #8 moderate pulmonary hypertension-complicates care, management, recovery, and prognosis I have reviewed Destiny Carlos's progress note including her medical assessment and plan of care and with the above additions endorse it. Total clinical time spent by myself addressing the patient's medical issues, reviewing the data, and collaborating with patient's care team: 20 minutes Visit Charges Inpatient E&M: 57270 Subs Hosp L2
[2022-06-10] MEDS: Bisacodyl 5 MG Tablet 20 MG PO (12:14)
[2022-06-10] MEDS: Metoclopramide 10 MG/2 ML Vial 5 MG IV ×3 (12:14→23:33)
[2022-06-10] MEDS: Sertraline 50 MG Tablet PO (12:15)
--- NOTE | 2022-06-10 13:27 | CON.PCM_ITS ---
Assessment & Plan Assessment/Plan (1) Microcytic anemia: PLAN: The differential diagnosis for breast anemia could be arteriovenous malfor mations, peptic ulcer disease, [place] syndrome, celiac disease, neoplasia. She should undergo an upper lower endoscopy and possible capsule endoscopy. She was explained alternatives, risk, benefits including outstanding bleeding, infection, sepsis, perforation, need for emergent . She will have an ASA of 3. HPI Consult Data Date of Consult: 06/10/22 HPI Narrative Reason for Consultation: Anemia HPI Narrative: TEODORO ALMEIDA, is a 67 woman with history of COPD, CAD, cardiac stents, prior partial lung resection for lung CA, pleural effusion and a prior CABG.? Complaint shortness of breath the last 2 weeks.? Saw the nurse practitioner and her certified alcohol and drug counselor office placed her on a week of amoxicillin and a week of prednisone.? She states she still having symptoms.? Worse with exertion.? No pleuritic chest pain.? No hemoptysis.? Cough of clear to white sputum.? No fever. In the ED she was discovered to have a hemoglobin of 7. Her previous hemoglobin was 12.6 has been slowly drifting down. She takes Plavix on a daily basis and recently had finished prednisone therapy. Also in the ED she was dis covered to have increased troponin of 500 without EKG changes. She is currently being seen by cardiology. She received 3 units of packed red blood cells for hemoglobin of 7 and hemoglobin is up to 10.6. All other 16 review of systems are negative except as per positives in HPI. [facility] Medical History Atherosclerotic heart disease of [place] coronary artery without angina pectoris Chest pain, unspecified COPD (chronic obstructive pulmonary disease) DDD (degenerative disc disease) Essential hypertension Lung cancer Melanoma Nonrheumatic mitral (valve) prolapse HOWARD (obstructive sleep apnea) Osteoarthritis Pericardial effusion Premature ventricular contraction Pulmonary nodules Tobacco abuse Worsening angina Home Medications omeprazole 20 mg capsule,delayed release 20 mg PO DAILY acid reflux 02/04/16 [History Last Taken 06/09/22] primidone 50 mg tablet 100 mg PO QHS seizures 30 days #30 tabs 08/17/18 [History Last Taken 06/08/22] buspirone 10 mg tablet 10 mg PO TID MOOD 06/20/19 [History Last Taken 06/09/22] furosemide 20 mg tablet 20 mg PO DAILY WATER RETENTION 08/17/19 [History Last Taken 06/09/22] albuterol sulfate 90 mcg/actuation aerosol inhaler 1 puff inhalation Q6H PRN PRN Sob &/Or Wheezing 07/28/20 [History Last Taken 06/09/22] sertraline 100 mg tablet 100 mg PO DAILY MOOD 08/11/20 [History Last Taken 06/09/22] budesonide 1 mg/2 mL suspension for nebulization 1 mg (2 mL) inhalation BID #60 mL 12/26/20 [Rx Last Taken Unknown] ipratropium 0.5 mg-albuterol 3 mg (2.5 mg base)/3 mL nebulization soln 3 ml inhalation Q4H PRN shortness of breath or wheezing #180 mL 12/29/20 [Rx Last Taken 06/08/22] nitroglycerin 0.4 mg sublingual tablet 0.4 mg sublingual Q5M PRN Chest Pain #25 tabs 02/23/21 [Rx Last Taken Unknown] ondansetron HCl 4 mg tablet (Zofran) 4 mg PO Q8H PRN nausea and vomiting #20 tabs 04/08/21 [Rx Last Taken Unknown] clopidogrel 75 mg tablet 75 mg PO DAILY #90 tabs 12/25/21 [Rx Last Taken 06/09/22] metoprolol succinate 25 mg tablet,extended release 24 hr 12.5 mg PO DAILY #45 tabs 12/25/21 [Rx Last Taken 06/09/22] hydroxyzine HCl 50 mg tablet 100 tab PO TID MOOD 06/09/22 [History Last Taken 06/09/22] prazosin 1 mg capsule 1 cap PO QHS BP 06/09/22 [History Last Taken 06/08/22] Allergy/AdvReac Type Severity Reaction Status Date / Time Iodinated Contrast Media Allergy Hives Verified 06/09/22 15:18 [Iodinated Contrast Media - IV Dye] tetracycline [Tetracycline] Allergy Hives Verified 06/09/22 15:18 pravastatin AdvReac Intermediate Upset Verified 06/09/22 15:18 Stomach atorvastatin [From Lipitor] AdvReac myalgia Verified 06/09/22 15:18 Family History Father Hypertension Colon cancer Mother Cancer LUNG CANCER/ SMOKER Father , MELANOMA No problems noted. Surgical History Aortocoronary bypass status (~05/12/04) History of abdominal surgery History of bowel resection History of cataract surgery History of cholecystectomy History of total hysterectomy Hx of appendectomy interstim placement (~08/05/20) Postsurgical percutaneous transluminal coronary angioplasty (PTCA) status (~03/12/18) Presence of coronary angioplasty implant and graft (~03/12/18) Presence of stent in coronary artery S/P partial lobectomy of lung Social History adopted: No household members: spouse housing: house number of children: 1 current occupational status: retired current occupational exposures/hazards: No Smoking Status: Current every day smoker tobacco type: cigarettes Tobacco: How many years used: 50 how long ago did patient quit smokin01/28/21 alcohol intake: never substance use type: does not use caffeine: Yes Type: coffee Number of servings: 1 ROS Constitutional Constitutional: Reports fatigue and other Details: weight gain ; Denies chills or fever(s) Cardiovascular Cardiovascular: Reports edema; Denies chest pain, lightheadedness, palpitations or syncope Respiratory/Chest Respiratory/Chest: Reports cough and dyspnea; Denies wheezing Gastrointestinal Gastrointestinal: Denies abdominal pain, constipation, diarrhea, nausea or vomiting Genitourinary Genitourinary: Denies burning urination, difficulty urinating, dysuria, nicolas turia, urinary frequency, urinary incontinence or urinary urgency Musculoskeletal Musculoskeletal: Denies back pain, joint pain or muscle weakness Integumentary Integumentary: Denies erythema, lesions, rash or wounds Neurologic Neurologic: Denies abnormal speech, confusion, dizziness, focal weakness, numbness, paresthesias, seizure-like activity or syncope Psychiatric Psychiatric: Denies anxiety or depression Hematologic/Lymphatic Hematologic/Lymphatic: Denies anemia, easy bleeding or easy bruising Allergic/Immunologic Allergic/Immunologic: Denies hives or asthma Physical Exam Const alert and oriented x3 Orientation / Consciousness: awake HEENT normocephalic and moist oral mucous membranes Eyes conjunctivae normal Neck no lymphadenopathy Resp clear to auscultation bilaterally Cardio regular rate and regular rhythm Peripheral Pulses: pulses 2+ throughout GI normal to inspection, nondistended, normoactive bowel sounds and non-tender Extremity normal to inspection Skin no rashes or lesions noted Lesions: no lesions Rashes: no rashes Trauma: no lacerations or abrasions Neuro no focal motor deficits and no sensory deficits noted Psych mental status grossly normal and affect normal Lab / Micro Data Result Diagrams: 06/10/22 06:46 06/10/22 06:46 Labs: Laboratory Results - last 24 hr 06/09/22 15:50: WBC 4.0 L, RBC 3.28 L, Hgb 7.2 L, Hct 24.4 L, MCV 74.4 L, MCH 22.0 L, MCHC 29.5 L, RDW Std Deviation 51.4 H, RDW Coeff of Kit 19.0 H, Plt Count 220, MPV 9.5, Immature Gran % (Auto) 0.500, Neut % (Auto) 70.7 H, Lymph % (Auto) 18.4 L, [place] % (Auto) 8.6, Eos % (Auto) 1.3, Baso % (Auto) 0.5, Absolute Neuts (auto) 2.8, Absolute Lymphs (auto) 0.73 L, Nucleated RBC % 0 06/09/22 15:50: Sodium 135 L, Potassium 2.8 L, Chloride 100, Carbon Dioxide 27.0, Anion Gap 8, BUN 9, Creatinine 0.93, Estim Creat Clear Calc 49.89, Est GFR (MDRD) Af Amer 78, Est GFR (MDRD) Non-Af 64, BUN/Creatinine Ratio 9.6 L, Glucose 94, Calcium 8.6, Troponin I High Sens 478 H* 06/09/22 15:50: B-Natriuretic Peptide 1067.8 H 06/09/22 17:20: Blood Type A POSITIVE, Antibody Screen NEGATIVE 06/09/22 17:20: Crossmatch See Detail 06/09/22 18:25: Iron 14 L, TIBC 490 H, Iron Saturation 2.9 L, Troponin I High Sens 525 H* 06/09/22 21:30: Troponin I High Sens 568 H* 06/09/22 21:30: Magnesium 2.0 06/10/22 06:46: WBC 5.0, RBC 4.33, Hgb 10.7 L, Hct 34.1 L, MCV 78.8 L D, MCH 24 .7 L, MCHC 31.4 L D, RDW Std Deviation 53.9 H, RDW Coeff of Kit 18.9 H, Plt Count 193, MPV 9.7, Immature Gran % (Auto) 0.400, Neut % (Auto) 70.2 H, Lymph % (Auto) 17.8 L, [place] % (Auto) 9.6, Eos % (Auto) 1.4, Baso % (Auto) 0.6, Absolute Neuts (auto) 3.5, Absolute Lymphs (auto) 0.89, Nucleated RBC % 0 06/10/22 06:46: Sodium 134 L, Potassium 3.5, Chloride 102, Carbon Dioxide 23.0, Anion Gap 9, BUN 8, Creatinine 0.90, Estim Creat Clear Calc 51.55, Est GFR (MDRD) Af Amer 81, Est GFR (MDRD) Non-Af 67, BUN/Creatinine Ratio 8.9 L, Glucose 119 H, Calcium 8.4 L Micro: Microbiology 06/09/22 15:45 Nasal Secretion SARS-CoV-2 Antigen (Rapid) - Final Rhythm Strip Rhythm Strip: Sinus Rhythm Rate: 83 Ectopy: None Radiology Impression Chest X-Ray 06/09/22 16:04 IMPRESSION: Cardiomegaly. Indeterminate ill-defined opacity within the right mid lung, may be secondary to atelectasis and/or scarring however cannot exclude a neoplastic process. Electronically Signed: Karlene Mccoy MD at 16:26 EDT , Echocardiogram 06/09/22 18:08 Interpretation Summary Segmental dysfunction with preserved ejection fraction (see wall motion). The estimated ejection fraction is 60 %. The left atrium is moderately enlarged. Mild diffuse mitral valve thickening. The mitral valve chordae are thickened and/or calcified. Mild mitral valve stenosis. Mild mitral valve prolapse. Moderate (2+) eccentric mitral valve insufficiency. Moderate (2+) tricuspid valve insufficiency. Trivial pulmonic valve insufficiency. Calcified aortic root. Right ventricular systolic pressure estimated to be 57 mmHg c/w pulmonary hyp ertension. Transmitral diastolic flow velocities suggest diastolic dysfunction (pseudono rmal pattern). Ordering Physician: Diego Nichole Referring Physician: Sen Odom MD Performed By: Paueltte Crane RDCS Charges/Coding Visit Charges Inpatient E&M: 96135 Init Hosp L2
[2022-06-10] MEDS: busPIRone 15 MG TABLET PO ×2 (14:22→21:11)
[2022-06-10] MEDS: Electrolyte Solution/Peg's 4000 ML PO (15:02)
[2022-06-10] MEDS: Primidone 50 MG Tablet 100 MG PO (21:10)
[2022-06-10] MEDS: Doxazosin 1 MG Tablet PO (21:11)
[2022-06-11] VITALS (14 sets, daily range): BP systolic 106–137; BP diastolic 74–88; PULSE 85–100; RESP 16–22; TEMP 36.5–37.1; O2SAT 89–100; BMI 29.0
--- NOTE | 2022-06-11 02:55 | NURSING ---
pt up to [facility]. pt had ernesto color stool with brown flecks noted
[2022-06-11] MEDS: 0.9% Saline Lock 10 ML Syringe IV ×3 (05:05→12:56)
[2022-06-11] MEDS: Metoclopramide 10 MG/2 ML Vial 5 MG IV ×2 (05:05→12:55)
--- NOTE | 2022-06-11 06:00 | EKG12_ITS ---
Test Reason : am ekg Blood Pressure : / mmHG Vent. Rate : 096 BPM Atrial Rate : 096 BPM P-R Int : 150 ms QRS Dur : 092 ms QT Int : 410 ms P-R-T Axes : 058 062 -18 degrees QTc Int : 517 ms Sinus rhythm with occasional AV dual-paced complexes Nonspecific ST abnormality Abnormal QRS-T angle, consider primary T wave abnormality Confirmed by LONA BURTON MD ([id number]), news videotape editor BAR GUERRA ([id number]) on 06/12/2022 8:33:57 AM Referred By: Dayanara Confirmed By:LONA BURTON MD
[2022-06-11 06:37] LABS: Absolute Lymphocyte Count 0.78 X10^3/uL (0.83-4.51); Absolute Neutrophil Count 4.8 X10^3/uL (2.0-7.7); Basophil# 0.03 X10^3/uL; Basophil% 0.5 % (0-1); Eosinophil# 0.05 X10^3/uL; Eosinophils% 0.8 % (0-5); Hematocrit 33.7 % (37-47); Hemoglobin 10.8 g/dL (12.0-15.0); Lymphocyte # 0.78 X10^3/ul (0.83-4.51); Lymphocyte % 12.5 % (19-41); Mean Corpuscular Hgb 24.9 pg (27.0-32.0); Mean Corpuscular Volume 77.6 fL (81-99); Mean Platelet Vol. 9.8 fl (6.2-12.0); Monocyte# 0.54 X10^3/uL; Monocyte% 8.7 % (0-10); NRBC Flagged by Analyzer 0 % (0-5); Platelet Count 210 K/mm3 (150-450); RBC Distribution Width CV 19.2 % (11.6-14.6); RBC Distribution Width SD 54.5 fl (35.1-43.9); Red Blood Count 4.34 M/mm3 (4.2-5.4); White Blood Count 6.2 K/mm3 (4.4-11.0)
[2022-06-11] MEDS: Budesonide Respules 0.5 MG/2 ML AMPUL.NEB. INHALATION (06:41)
[2022-06-11] MEDS: Ipratropium/Albuterol Sulfate 3 ML AMPUL.NEB INHALATION ×2 (06:41→12:11)
[2022-06-11 07:01] LABS: ALB/GLOB Ratio 0.9 RATIO (0.9-2.4); AST(SGOT) 17 U/L (15-37); Alanine Aminotransfer ALT/SGPT 20 U/L (13-56); Albumin, Serum 3.4 g/dL (3.2-5.0); Alkaline Phosphatase 62 U/L (45-117); Anion Gap 8 (5-15); BUN 6 mg/dL (7-18); BUN/Creat Ratio 7.1 RATIO (10-20); Calcium,Total 8.5 mg/dL (8.5-10.1); Chloride 101 mmol/L (98-107); Creatinine, Serum 0.85 mg/dL (0.55-1.02); EST Glomerular Filtration Rate 71 mL/min (>60); Est Glom Filt Rate - Afr Amer 86 mL/min (>60); Estimated Creatinine Clearance 54.58 ml/min; Globulin 3.8 g/dL (2.2-4.2); Glucose 116 mg/dL (74-106); Potassium 3.4 mmol/L (3.5-5.1); Protein, Total 7.2 g/dL (6.4-8.2); Sodium Level 133 mmol/L (136-145)
--- NOTE | 2022-06-11 08:58 | PCM.PN.CARD ---
Subjective Subjective The patient's main concern continues to be her shortness of breath with exertional activity. Objective Data Vital Signs: Vital Signs Temp Pulse Resp BP Pulse Ox O2 Del Method 97.9 F 92 20 H 137/86 H 96 Room Air 06/11/22 05:11 06/11/22 07:04 06/11/22 06:41 06/11/22 05:11 06/11/22 06:41 06/11/22 07:30 Oxygen Delivery Method Room Air Weight: 163 lb 9.328 oz Body Mass Index (BMI) 29.0 Intake & Output: Intake and Output for Last 24 Hours 06/09/22 06/10/22 06/11/22 23:59 23:59 23:59 Intake Total 710 / 1550 4610 / 4610 Output Total 950 / 950 Balance 710 / 600 3660 / 3660 Lab / Micro Data Result Diagrams: 06/11/22 05:50 06/11/22 05:50 Labs: Laboratory Results - last 24 hr 06/11/22 05:50: WBC 6.2, RBC 4.34, Hgb 10.8 L, Hct 33.7 L, MCV 77.6 L, MCH 24.9 L, MCHC 32.0, RDW Std Deviation 54.5 H, RDW Coeff of Kit 19.2 H, Plt Count 210, MPV 9.8, Immature Gran % (Auto) 0.500, Neut % (Auto) 77.0 H, Lymph % (Auto) 12.5 L, Hale % (Auto) 8.7, Eos % (Auto) 0.8, Baso % (Auto) 0.5, Absolute Neuts (auto) 4.8, Absolute Lymphs (auto) 0.78 L, Nucleated RBC % 0 06/11/22 05:50: Sodium 133 L, Potassium 3.4 L, Chloride 101, Carbon Dioxide 24.0, Anion Gap 8, BUN 6 L, Creatinine 0.85, Estim Creat Clear Calc 54.58, Est GFR (MDRD) Af Amer 86, Est GFR (MDRD) Non-Af 71, BUN/Creatinine Ratio 7.1 L, Glucose 116 H, Calcium 8.5, Total Bilirubin 1.30 H, AST 17, ALT 20, Alkaline Phosphatase 62, Total Protein 7.2, Albumin 3.4, Globulin 3.8, Albumin/Globulin Ratio 0.9 Rhythm Strip Rhythm Strip: Sinus Rhythm Rate: 83 Ectopy: None Cardiology Labs/Tests 06/11/22 05:50: WBC 6.2, RBC 4.34, Hgb 10.8 L, Hct 33.7 L, MCV 77.6 L, MCH 24.9 L, MCHC 32.0, Plt Count 210, MPV 9.8, Immature Gran % (Auto) 0.500, Neut % (Auto) 77.0 H, Lymph % (Auto) 12.5 L, Hale % (Auto) 8.7, Eos % (Auto) 0.8, Baso % (Auto) 0.5, Absolute Neuts (auto) 4.8, Nucleated RBC % 0 06/11/22 05:50: Sodium 133 L, Potassium 3.4 L, Chloride 101, Carbon Dioxide 24.0, Anion Gap 8, BUN 6 L, Creatinine 0.85, Est GFR (MDRD) Af Amer 86, Est GFR (MDRD) Non-Af 71, BUN/Creatinine Ratio 7.1 L, Glucose 116 H, Calcium 8.5, Total Bilirubin 1.30 H Rhythm: Sinus rhythm; PVCs Radiography Diagnostic Testing: Radiology Impression Echocardiogram 06/09/22 18:08 Interpretation Summary Segmental dysfunction with preserved ejection fraction (see wall motion). The estimated ejection fraction is 60 %. The left atrium is moderately enlarged. Mild diffuse mitral valve thickening. The mitral valve chordae are thickened and/or calcified. Mild mitral valve stenosis. Mild mitral valve prolapse. Moderate (2+) eccentric mitral valve insufficiency. Moderate (2+) tricuspid valve insufficiency. Trivial pulmonic valve insufficiency. Calcified aortic root. Right ventricular systolic pressure estimated to be 57 mmHg c/w pulmonary hypertension. Transmitral diastolic flow velocities suggest diastolic dysfunction (pseudonormal pattern). Ordering Physician: Diego Nichole Referring Physician: Sen Odom MD Performed By: Paulette Crane RDCS Physical Exam Const alert, oriented x3 and no apparent distress Orientation / Consciousness: awake HEENT normocephalic, head/scalp atraumatic and hearing grossly normal bilaterally Eyes PERRL, EOMs intact bilaterally and conjunctivae normal Neck full ROM, supple and no JVD Chest Chest Narrative: Right lateral thoracotomy scar Resp Auscultation: diminished lung sounds bilateral throughout Cardio regular rate, regular rhythm, S1 normal heart sound and S2 normal heart sound Rhythm: abnormal rhythm ectopic beats Heart Sounds: click mid and abnormal sounds GI normal to inspection, nondistended, normoactive bowel sounds Extremity no pedal edema Skin no rashes or lesions noted Psych mental status grossly normal Assessment & Plan Assessment/Plan (1) Abnormal cardiac enzyme level: PLAN: The patient has elevated high-sensitivity troponin I levels. She does not appear to have acute ECG changes. The etiology may be related to a non-STEMI type II event secondary to her anemia superimposed upon her underlying cardiovascular condition. At the present time her enzymes have been monitored. They have not demonstrated a peak and decline. Her cardiac rhythm is remained sinus rhythm. She will continue to be monitored. She will continue medical therapy as deemed appropriate although her antiplatelet therapy has been placed on hold secondary to concerns of her anemia which may be related to a gastrointestinal bleeding process. She has undergone a follow-up transthoracic echocardiogram with the results as noted. It is noted that her overall LV systolic function/LVEF remains preserved. She has received PRBCs to assist with her hemoglobin level and her oxygen carrying capacity. It also appears appropriate to proceed with noncardiac/gastrointestinal evaluation to evaluate for gastrointestinal bleeding source. She does not appear to be an ideal candidate for invasive cardiovascular studies at this time as there would be limits with respect to her ability to take antiplatelet or anticoagulant therapy. (2) CAD (coronary artery disease): PLAN: She does have a history of extensive CAD. Again she will continue risk factor modification medical therapy. (3) Presence of stent in coronary artery: PLAN: She has a history of PCI. Her most recent PCI is as noted. She will continue medical management and follow-up. (4) Aortocoronary bypass status: PLAN: She has a history of CABG. Her most recent diagnostic cardiac catheterization is noted and reviewed. She will continue medical management. (5) MVP (mitral valve prolapse): PLAN: She has a history of MVP. Her echocardiographic findings are as noted. She persists with MVP and an element of MR. (6) Premature ventricular contraction: PLAN: She has a history of PVCs. Her current cardiac clinical research monitor demonstrates continued evidence of PVCs. Her cardiac rhythm can be monitored during her hospital stay for any additional concerns or require additional evaluation and/or care. (7) Pure hypercholesterolemia: PLAN: The patient has reported intolerance to statin therapy based upon concerns of myalgias. She should continue risk factor evaluation and care as deemed appropriate. (8) Essential hypertension: PLAN: Her blood pressure will need to be monitored for any significant changes that warrant adjustment of her medications. (9) COPD (chronic obstructive pulmonary disease): PLAN: She has a history of underlying COPD. She does need to continue evaluation care per internal medicine and pulmonology. (10) Adenocarcinoma of lung, stage 1: QUALIFIERS: Laterality: right Qualified Code(s): C34.91 - Malignant neoplasm of unspecified part of right bronchus or lung PLAN: She has a history of adenocarcinoma of the lung. She has undergone a right lateral thoracotomy as well as radiation therapy. She will need continued follow-up for any obvious evidence of recurrence. (11) Anemia: PLAN: At the moment her main concern is her marked anemia and the etiology of her anemia with concerns being a gastrointestinal bleeding process. Again this could exacerbate her underlying cardiovascular condition and bring out abnormal high-sensitivity troponin I levels and a type II non-STEMI event. Thus at the moment she will continue cardiovascular monitoring and support as deemed appropriate. She is avoiding antiplatelet therapy with respect to agent such as clopidogrel/Plavix at this time. She has received PRBCs which appear to be appropriate to assist with her oxygen carrying capacity and hopefully her clinical course, etc. She is pending further gastrointestinal evaluation with consideration for EGD and colonoscopy. Addt'l Comments The patient's case was discussed and reviewed with patient and Dr. Nichole. This note was generated using a voice recognition system and there may be incorrect words, spelling or punctuation that were not noted when reviewing the office note prior to saving.
[2022-06-11] MEDS: Metoprolol(XL)Succ 25 MG Tablet 12.5 MG PO (10:58)
--- NOTE | 2022-06-11 11:05 | COLBX_PTH ---
PATIENT: TEODORO ALMEIDA LOC: [facility] U#:[id number] AGE/SX: 67/F ROOM: [facility] RE06/09/[address]: Dr. Diego Nichole DO : 1955 BED: 1 DIS: 06/11/2022 SPEC #: [id number] RECD: 06/14/22 10:59 STATUS: TEETEE BERRY #: [id number] RADHA: 06/11/22 11:[address]: Tanner Beasley DEPT: SURGICAL PATHOLOGY RECD BY: Vonnie Garcia ENTERED: 06/14/22 13:03 SP TYPE: COLON BX OTHR DR: MD Dr. Diego Cole DO Dr. Paul Moodispaw, MD Tissues: A - COLON BIOPSY B - COLON BIOPSY Procedures: Surgery Specimen Level IV Comments: @ Ordering doctor for SUIV edited from to @ by MARCIA at 06/14/22 1416 @ Submitting doctor edited from to @ by BITAOD at 06/14/22 1416 HEADER OPERATION: Colonoscopy, EGD ([facility] [place]) PRE-OP DIAGNOSIS: Microcytic anemia TISSUE SUBMITTED: A ? Polyp at splenic flexure, B - Polyp at hepatic flexure MICROSCOPIC DIAGNOSIS A. Colonic polyp at splenic flexure, biopsy: Fragments of tubular adenoma. B. Colonic polyp at hepatic flexure, biopsy: Fragments of tubular adenoma. AM:lala 06/15/2022 MICROSCOPIC DESCRIPTION Slides are reviewed. GROSS DESCRIPTION A - Received in fixative is one container labeled with the patient's name and designated polyp at splenic flexure. The specimen consists of a vu-pink polyp measuring 0.5 x 0.4 x 0.3 cm. Also present in the container are multiple fragments of fecal material mixed with vu mucoid tissue. The entire specimen is submitted in one cassette. B - Received in fixative is one container labeled with the patient's name and designated polyp at hepatic flexure. The specimen consists of a vu-pink polyp measuring 0.6 x 0.5 x 0.3 cm. Multiple fragments of fecal material are also noted. The specimen is totally submitted in one cassette. / ELENA:lala 06/14/2022 TC:5 CPT: 18959 x2
--- NOTE | 2022-06-11 11:46 | OP.CCLET_ITS ---
08/12/2022 Phani Odom [address] [place] [address] Re : Upper GI endoscopy procedure for Haleighjoseph Banda Dear Dr. Odom This procedure was performed on Saturday, June 11, 2022. My impressions and recommendations are as follows: Impressions : - Normal esophagus. - Medium-sized hiatal hernia. - Normal second portion of the duodenum. - No specimens collected. Recommendations : - Discharge patient to home. - Resume previous diet. - Continue present medications. My findings are described in the full procedure note, which is enclosed. If I can be of further assistance, please feel free to contact me at . Sincerely, Tanner Beasley DO 06/11/2022 11:46:14 AM This report has been signed electronically.
--- NOTE | 2022-06-11 11:46 | OP.EGD_ITS ---
Patient Name: Haleigh Banda Procedure Date: 06/11/2022 10:49 AM Date of : 1955 Age: 67 Procedure: Upper GI endoscopy Indications: Acute post hemorrhagic anemia, Iron deficiency anemia Providers: Tanner Beasley DO Medicines: Monitored Anesthesia Care Patient Profile: This is a 67 year old female. Refer to note in patient chart for documentation of history and physical. Patient has symptoms. Complications: No immediate complications. Procedure: Pre-Anesthesia Assessment: - Prior to the procedure, a History and Physical was performed, and patient medications and allergies were reviewed. The risks and benefits of the procedure and the sedation options and risks were discussed with the patient. All questions were answered and informed consent was obtained. Patient identification and proposed procedure were verified by the physician. Mental Status Examination: alert and oriented. Airway Examination: normal oropharyngeal airway and neck mobility. Respiratory Examination: clear to auscultation. CV Examination: normal. Prophylactic Antibiotics: The patient does not require prophylactic antibiotics. Prior Anticoagulants: The patient has taken no previous anticoagulant or antiplatelet agents. After reviewing the risks and benefits, the patient was deemed in satisfactory condition to undergo the procedure. The anesthesia plan was to use moderate sedation / analgesia (conscious sedation). Immediately prior to administration of medications, the patient was re-assessed for adequacy to receive sedatives. The heart rate, respiratory rate, oxygen saturations, blood pressure, adequacy of pulmonary ventilation, and response to care were monitored throughout the procedure. The physical status of the patient was re-assessed after the procedure. After obtaining informed consent, the endoscope was passed under direct vision. Throughout the procedure, the patient's blood pressure, pulse, and oxygen saturations were monitored continuously. The Colonoscope was introduced through the mouth, and advanced to the second part of duodenum. The upper GI endoscopy was accomplished without difficulty. The patient tolerated the procedure well. Scope In: 11:10:09 AM Scope Out: 11:14:00 AM Total Procedure Duration Time 0 hours 3 minutes 51 seconds Findings: The examined esophagus was normal. A medium-sized hiatal hernia was present. The second portion of the duodenum was normal. A non-obstructing Schatzki ring was found in the lower third of the esophagus. Impression: - Normal esophagus. - Medium-sized hiatal hernia. - Normal second portion of the duodenum. - No specimens collected. Recommendation: - Discharge patient to home. - Resume previous diet. - Continue present medications. Procedure Code(s): --- Professional --- 67035, Esophagogastroduodenoscopy, flexible, transoral; diagnostic, including collection of specimen(s) by brushing or washing, when performed (separate procedure) CPT copyright 2017 [employer]. All rights reserved. The codes documented in this report are preliminary and upon director e learning review may be revised to meet current compliance requirements. Tanner Beasley DO 06/11/2022 11:46:14 AM This report has been signed electronically. Number of Addenda: 1 Note Initiated On: 06/11/2022 10:49 AM Addendum Number: 1 Addendum Date: 08/12/2022 6:26:42 AM MAC was used as sedation for this procedure. Tanner Beasley DO 08/12/2022 6:26:47 AM This report has been signed electronically.
--- NOTE | 2022-06-11 11:52 | OP.COLON_ITS ---
Patient Name: Haleigh Banda Procedure Date: 06/11/2022 11:14 AM Date of : 1955 Age: 67 Procedure: Colonoscopy Indications: Iron deficiency anemia Providers: Tanner Beasley DO Medicines: Monitored Anesthesia Care Patient Profile: This is a 67 year old female. Refer to note in patient chart for documentation of history and physical. Patient has symptoms. Last Colonoscopy: 5 years ago. Complications: No immediate complications. Procedure: Pre-Anesthesia Assessment: - Prior to the procedure, a History and Physical was performed, and patient medications and allergies were reviewed. The risks and benefits of the procedure and the sedation options and risks were discussed with the patient. All questions were answered and informed consent was obtained. Patient identification and proposed procedure were verified by the physician. Mental Status Examination: alert and oriented. Airway Examination: normal oropharyngeal airway and neck mobility. Respiratory Examination: clear to auscultation. CV Examination: normal. Prophylactic Antibiotics: The patient does not require prophylactic antibiotics. Prior Anticoagulants: The patient has taken no previous anticoagulant or antiplatelet agents. After reviewing the risks and benefits, the patient was deemed in satisfactory condition to undergo the procedure. The anesthesia plan was to use moderate sedation / analgesia (conscious sedation). Immediately prior to administration of medications, the patient was re-assessed for adequacy to receive sedatives. The heart rate, respiratory rate, oxygen saturations, blood pressure, adequacy of pulmonary ventilation, and response to care were monitored throughout the procedure. The physical status of the patient was re-assessed after the procedure. After I obtained informed consent, the scope was passed under direct vision. Throughout the procedure, the patient's blood pressure, pulse, and oxygen saturations were monitored continuously. The Colonoscope was introduced through the anus and advanced to the cecum, identified by appendiceal orifice and ileocecal valve. The ileocecal valve, appendiceal orifice, and rectum were photographed. Scope In: 11:17:24 AM Scope Out: 11:37:54 AM Total Procedure Duration Time 0 hours 20 minutes 30 seconds Findings: A few small and large-mouthed diverticula were found in the recto-sigmoid colon and sigmoid colon. Two sessile polyps were found in the splenic flexure and hepatic flexure. The polyps were 1 to 2 mm in size. These polyps were removed with a hot snare. Resection and retrieval were complete. Verification of patient identification for the specimen was done. Estimated blood loss was minimal. Two medium-sized angiodysplastic lesions with bleeding were found in the rectum. Coagulation for hemostasis using monopolar probe was successful. Estimated blood loss was minimal. Non-bleeding internal hemorrhoids were found during retroflexion. The hemorrhoids were large. Impression: - Diverticulosis in the recto-sigmoid colon and in the sigmoid colon. - Two 1 to 2 mm polyps at the splenic flexure and at the hepatic flexure, removed with a hot snare. Resected and retrieved. - Two bleeding colonic angiodysplastic lesions. Treated with a monopolar probe. Recommendation: - Discharge patient to home. - Resume previous diet. - Continue present medications. - Await pathology results. - Repeat colonoscopy in 5 years for surveillance. Procedure Code(s): --- Professional --- 42859, 59, Colonoscopy, flexible; with control of bleeding, any method 44203, Colonoscopy, flexible; with removal of tumor(s), polyp(s), or other lesion(s) by snare technique CPT copyright 2017 [employer]. All rights reserved. The codes documented in this report are preliminary and upon detacher review may be revised to meet current compliance requirements. Tanner Beasley DO 06/11/2022 11:52:31 AM This report has been signed electronically. Number of Addenda: 1 Note Initiated On: 06/11/2022 11:14 AM Addendum Number: 1 Addendum Date: 08/12/2022 6:26:54 AM MAC was used as sedation for this procedure. Tanner Beasley DO 08/12/2022 6:26:58 AM This report has been signed electronically.
--- NOTE | 2022-06-11 11:53 | OP.CCLET_ITS ---
08/12/2022 Phani Odom [address] [place] [address] Re : Colonoscopy procedure for Haleigh Willieangeljodie Dear Dr. Odom This procedure was performed on Saturday, June 11, 2022. My impressions and recommendations are as follows: Impressions : - Diverticulosis in the recto-sigmoid colon and in the sigmoid colon. - Two 1 to 2 mm polyps at the splenic flexure and at the hepatic flexure, removed with a hot snare. Resected and retrieved. - Two bleeding colonic angiodysplastic lesions. Treated with a monopolar probe. Recommendations : - Discharge patient to home. - Resume previous diet. - Continue present medications. - Await pathology results. - Repeat colonoscopy in 5 years for surveillance. My findings are described in the full procedure note, which is enclosed. If I can be of further assistance, please feel free to contact me at . Sincerely, Tanner Beasley, 06/11/2022 11:52:31 AM This report has been signed electronically.
--- NOTE | 2022-06-11 12:19 | DCINST_ITS ---
Discharge Instructions Diet Discharge Diet: Low fat / Low cholesterol Activity Discharge Activity: Return to Normal Activity Dressing / Incision Call your doctor if you observe: Shortness of breath, Swelling in the ankles, Chest pain and Increased palpitations (irregular heartbeat) Follow Up Care Test Results: Test results from this visit will be discussed in further detail at your follow- up appointment, if applicable. Discharge Plan Admission Admit Date/Time: 06/09/22 17:49 Primary Reason for Your Visit: Anemia, NSTEMI Attending Provider: Diego Nichole Primary Care Provider: Phani Odom Consulting Providers: Stephon Castro Instructions Additional Instructions / Restrictions: Follow up with Primary care provider for CBC and recheck of potassium Discharge Orders/Prescriptions Prescriptions: New sertraline 100 mg Tablet 150 mg PO DAILY 30 Days Qty: 45 0RF potassium chloride [Klor-Con M20] 20 mEq Tablet,Er Particles/Crystals 40 meq PO DAILYCM 10 Days Qty: 20 0RF furosemide 20 mg Tablet 20 mg PO DAILY 30 Days Qty: 30 0RF buspirone 15 mg Tablet 15 mg PO TID 30 Days Qty: 90 0RF ferrous sulfate 325 mg (65 mg iron) tablet,delayed release (DR/EC) 325 mg PO BID Qty: 60 0RF Continued primidone 50 mg tablet 100 mg PO QHS 30 Days Qty: 30 nitroglycerin 0.4 mg tablet, sublingual 0.4 mg SUBLINGUAL Q5M PRN (Reason: Chest Pain) Qty: 25 3RF Label Comments: chest pain Rx Instructions: Place one tab under tongue every 5 minutes x 3 doses as needed budesonide 1 mg/2 mL suspension for nebulization 1 mg INHALATION BID Qty: 60 6RF metoprolol succinate 25 mg tablet extended release 24 hr 12.5 mg PO DAILY Qty: 45 4RF ondansetron HCl [Zofran] 4 mg tablet 4 mg PO Q8H PRN (Reason: nausea and vomiting) Qty: 20 1RF Rx Instructions: take 1 tab PO q 8hrs prn nausea omeprazole 20 MG capsule 20 mg PO DAILY Label Comments: heart burn albuterol sulfate 1 PUFF inhaler 1 puff INHALATION Q6H PRN PRN (Reason: Sob &/Or Wheezing) prazosin 1 mg capsule 1 cap PO QHS hydroxyzine HCl 50 mg tablet 100 tab PO TID ipratropium-albuterol 0.5 mg-3 mg(2.5 mg base)/3 mL solution for nebulization 3 ml INHALATION Q4H PRN (Reason: shortness of breath or wheezing) Qty: 180 3RF Discontinued sertraline 100 mg tablet 100 mg PO DAILY clopidogrel 75 mg tablet 75 mg PO DAILY Qty: 90 4RF buspirone 10 MG tablet 10 mg PO TID furosemide 20 mg tablet 20 mg PO DAILY Referrals / Follow Up: Phani Odom MD [Primary Care Provider] - Within 1 Week Disposition Disposition (needs filled in before D/C Order can be placed): Home, Self Care
--- NOTE | 2022-06-11 12:38 | PCM.DC.SUM ---
Documented by User: MT Arciniega 06/11/22 12:48 Providers Date of Admission: 06/09/22 Date of Discharge: 06/11/22 Primary Care Physician: Dr. Phani Odom MD Consultations 06/09/22 18:08 Consult: Cardiology Routine Consulting Provider: Stephon Castro Reason for Consult: NSTEMI EMERGENT Consult: No Notified: Yes Date Notified: 06/09/22 Time Notified: 17:57 Method of Notification: Verbal Method of Consult:: In-Person Consult: Gastroenterology Routine Consulting Provider: [facility] Reason for Consult: anemia EMERGENT Consult: No Notified: Yes Date Notified: 06/09/22 Time Notified: 17:58 Method of Notification: Verbal Reason For Visit: ACUTE ANEMIA, NON-STEMI Diagnosis Discharge Diagnosis (1) Abnormal cardiac enzyme level: Status: Acute Code(s): R74.8 - Abnormal levels of other serum enzymes (2) CAD (coronary artery disease): Status: Acute Code(s): I25.10 - Atherosclerotic heart disease of [place] coronary artery without angina pectoris (3) Presence of stent in coronary artery: Status: Chronic Code(s): Z95.5 - Presence of coronary angioplasty implant and graft (4) Aortocoronary bypass status: Status: Chronic Code(s): Z95.1 - Presence of aortocoronary bypass graft (5) MVP (mitral valve prolapse): Status: Acute Code(s): I34.1 - Nonrheumatic mitral (valve) prolapse (6) Premature ventricular contraction: Status: Chronic Code(s): I49.3 - Ventricular premature depolarization (7) Pure hypercholesterolemia: Status: Chronic Code(s): E78.00 - Pure hypercholesterolemia, unspecified (8) Essential hypertension: Status: Chronic Code(s): I10 - Essential (primary) hypertension (9) COPD (chronic obstructive pulmonary disease): Status: Chronic Code(s): J44.9 - Chronic obstructive pulmonary disease, unspecified (10) Adenocarcinoma of lung, stage 1: Status: Acute Code(s): C34.90 - Malignant neoplasm of unspecified part of unspecified bronchus or lung Qualifiers: Laterality: right Qualified Code(s): C34.91 - Malignant neoplasm of unspecified part of right bronchus or lung (11) Anemia: Status: Acute Code(s): D64.9 - Anemia, unspecified Plan 1. Acute microcytic anemia -Continue IV pantoprazole -Hemoglobin 10.7 following administration of 3 units packed red blood cells overnight -GI consult. -Hold Plavix. -Iron and iron saturations low, TIBC high. Patient received IV ferric sodium gluconate 2. NSTEMI -cardiology following -Cardiac enzymes continuing to trend up -possible demand ischemia secondary to #1. -Continue beta-johny. 3. Acute on chronic heart failure with preserved ejection fraction -BNP greater than 1000. -Continue IV Lasix. -Strict I&O and daily weight. -Recent echocardiogram 01/28/2022 demonstrated an EF of 65%, mild mitral valve insufficiency. Repeat echocardiogram pending 4. Acute hypokalemia -Potassium 3.5 today -Trend BMP. 5. CAD with history of PCI and bypass/Ischemic cardiomyopathy -Plavix temporarily held. -Continue metoprolol. 6. Hypertension -Vital sign per protocol, currently stable -continue furosemide, metoprolol, prazosin 7. Hyperlipidemia -Not currently on statin therapy due to allergy 8. History of lung cancer status post surgical excision and radiation therapy -continue outpatient surveillance. 9. Chronic COPD -as needed albuterol aerosol. 10. Depression/anxiety -on buspirone, sertraline. DVT prophylaxis-SCDs This patient was seen by MT Arciniega under the supervision of Dr. Nichole. 13 minutes spent in clinical coordination of patient's plan of care. Medications at Discharge Home Medications omeprazole 20 mg capsule,delayed release 20 mg PO DAILY acid reflux 02/04/16 primidone 50 mg tablet 100 mg PO QHS seizures 30 days #30 tabs 08/17/18 albuterol sulfate 90 mcg/actuation aerosol inhaler 1 puff inhalation Q6H PRN PRN Sob &/Or Wheezing 07/28/20 budesonide 1 mg/2 mL suspension for nebulization 1 mg (2 mL) inhalation BID #60 mL 12/26/20 ipratropium 0.5 mg-albuterol 3 mg (2.5 mg base)/3 mL nebulization soln 3 ml inhalation Q4H PRN shortness of breath or wheezing #180 mL 12/29/20 nitroglycerin 0.4 mg sublingual tablet 0.4 mg sublingual Q5M PRN Chest Pain #25 tabs 02/23/21 ondansetron HCl 4 mg tablet (Zofran) 4 mg PO Q8H PRN nausea and vomiting #20 tabs 04/08/21 metoprolol succinate 25 mg tablet,extended release 24 hr 12.5 mg PO DAILY #45 tabs 12/25/21 hydroxyzine HCl 50 mg tablet 100 tab PO TID MOOD 06/09/22 prazosin 1 mg capsule 1 cap PO QHS BP 06/09/22 buspirone 15 mg tablet 15 mg PO TID 30 days #90 tabs 06/11/22 ferrous sulfate 325 mg (65 mg iron) tablet,delayed release 325 mg PO BID #60 tabs 06/11/22 furosemide 20 mg tablet 20 mg PO DAILY 30 days #30 tabs 06/11/22 nebulizer and compressor #1 ea 06/11/22 potassium chloride 20 mEq tablet,extended release(part/cryst) (Klor-Con M) 40 meq PO DAILYCM 10 days #20 tabs 06/11/22 sertraline 100 mg tablet 150 mg PO DAILY 30 days #45 tabs 06/11/22 Hospital Course Operations None Procedures 2-D Echocardiogram, Blood transfusion, Colonoscopy and EGD Summary of Care Provided Minutes Spent on Discharge: 35 Hospital Course: Patient is a 67-year-old female who originally presented with shortness of breath with exertion. Patient reports that this has been going on for 2 to 3 weeks and that she also had lower extremity swelling. Patient was noted to be anemic with a hemoglobin of 7.2 with no obvious signs or symptoms of bleeding. Patient was initiated on PPI and GI was consulted. Patient's Plavix was held as well. Patient was given 3 units packed red blood cells overnight from 06/09-06/10 and hemoglobin improved to 10.7, today was 10.8 so stable. Patient underwent EGD and colonoscopy with Dr. Beasley which showed 2 1 to 2 mm polyps at the splenic flexure and at the hepatic flexure which were removed with a hot snare resected and retrieved and 2 bleeding colonic angiodysplastic lesions which were treated with monopolar probe. Patient also underwent evaluation by cardiology as patient was noted to have an NSTEMI which was likely brought on by her anemia along with her underlying cardiovascular conditions. Physical Exam Const alert and oriented x3 Orientation / Consciousness: awake HEENT normocephalic and moist oral mucous membranes Eyes conjunctivae normal Neck no lymphadenopathy Resp clear to auscultation bilaterally Cardio regular rate and regular rhythm Peripheral Pulses: pulses 2+ throughout GI normal to inspection, nondistended, normoactive bowel sounds and non-tender Extremity normal to inspection Skin no rashes or lesions noted Lesions: no lesions Rashes: no rashes Trauma: no lacerations or abrasions Neuro no focal motor deficits and no sensory deficits noted Psych mental status grossly normal and affect normal Weight / BMI Weight Weight: 163 lb 9.328 oz Body Mass Index (BMI) 29.0 ABG / Lab / Microbiology Data Result Diagrams: 06/11/22 05:50 06/11/22 05:50 Laboratory: Laboratory Results - last 24 hr 06/11/22 05:50: WBC 6.2, RBC 4.34, Hgb 10.8 L, Hct 33.7 L, MCV 77.6 L, MCH 24.9 L, MCHC 32.0, RDW Std Deviation 54.5 H, RDW Coeff of Kit 19.2 H, Plt Count 210, MPV 9.8, Immature Gran % (Auto) 0.500, Neut % (Auto) 77.0 H, Lymph % (Auto) 12.5 L, [place] % (Auto) 8.7, Eos % (Auto) 0.8, Baso % (Auto) 0.5, Absolute Neuts (auto) 4.8, Absolute Lymphs (auto) 0.78 L, Nucleated RBC % 0 06/11/22 05:50: Sodium 133 L, Potassium 3.4 L, Chloride 101, Carbon Dioxide 24.0, Anion Gap 8, BUN 6 L, Creatinine 0.85, Estim Creat Clear Calc 54.58, Est GFR (MDRD) Af Amer 86, Est GFR (MDRD) Non-Af 71, BUN/Creatinine Ratio 7.1 L, Glucose 116 H, Calcium 8.5, Total Bilirubin 1.30 H, AST 17, ALT 20, Alkaline Phosphatase 62, Total Protein 7.2, Albumin 3.4, Globulin 3.8, Albumin/Globulin Ratio 0.9 Microbiology: Microbiology 06/09/22 15:45 Nasal Secretion SARS-CoV-2 Antigen (Rapid) - Final Radiography Diagnostic Testing: Radiology Impression Echocardiogram 06/09/22 18:08 Interpretation Summary Segmental dysfunction with preserved ejection fraction (see wall motion). The estimated ejection fraction is 60 %. The left atrium is moderately enlarged. Mild diffuse mitral valve thickening. The mitral valve chordae are thickened and/or calcified. Mild mitral valve stenosis. Mild mitral valve prolapse. Moderate (2+) eccentric mitral valve insufficiency. Moderate (2+) tricuspid valve insufficiency. Trivial pulmonic valve insufficiency. Calcified aortic root. Right ventricular systolic pressure estimated to be 57 mmHg c/w pulmonary hypertension. Transmitral diastolic flow velocities suggest diastolic dysfunction (pseudonormal pattern). Ordering Physician: Diego Nichole Referring Physician: Sen Odom MD Performed By: Paulette Crane RDCS D/C Instructions Discharge Diet: Low fat / Low cholesterol Call your doctor if you observe: Shortness of breath, Swelling in the ankles, Chest pain and Increased palpitations (irregular heartbeat) Meaningful Use Info Meaningful Use Diagnoses (Choose all that apply): None applicable Discharge Plan Admission Admit Date/Time: 06/09/22 17:49 Primary Reason for Your Visit: Anemia, NSTEMI Attending Provider: Diego Nichole Primary Care Provider: Phani Odom Consulting Providers: Stephon Castro Instructions Additional Instructions / Restrictions: Follow up with Primary care provider for CBC and recheck of potassium Discharge Orders/Prescriptions Prescriptions: New sertraline 100 mg Tablet 150 mg PO DAILY 30 Days Qty: 45 0RF potassium chloride [Klor-Con M20] 20 mEq Tablet,Er Particles/Crystals 40 meq PO DAILYCM 10 Days Qty: 20 0RF furosemide 20 mg Tablet 20 mg PO DAILY 30 Days Qty: 30 0RF buspirone 15 mg Tablet 15 mg PO TID 30 Days Qty: 90 0RF ferrous sulfate 325 mg (65 mg iron) tablet,delayed release (DR/EC) 325 mg PO BID Qty: 60 0RF (DME) nebulizer and compressor Device See Rx Instructions .Route Qty: 1 0RF Rx Instructions: As directed Continued primidone 50 mg tablet 100 mg PO QHS 30 Days Qty: 30 nitroglycerin 0.4 mg tablet, sublingual 0.4 mg SUBLINGUAL Q5M PRN (Reason: Chest Pain) Qty: 25 3RF Label Comments: chest pain Rx Instructions: Place one tab under tongue every 5 minutes x 3 doses as needed budesonide 1 mg/2 mL suspension for nebulization 1 mg INHALATION BID Qty: 60 6RF metoprolol succinate 25 mg tablet extended release 24 hr 12.5 mg PO DAILY Qty: 45 4RF ondansetron HCl [Zofran] 4 mg tablet 4 mg PO Q8H PRN (Reason: nausea and vomiting) Qty: 20 1RF Rx Instructions: take 1 tab PO q 8hrs prn nausea omeprazole 20 MG capsule 20 mg PO DAILY Label Comments: heart burn albuterol sulfate 1 PUFF inhaler 1 puff INHALATION Q6H PRN PRN (Reason: Sob &/Or Wheezing) prazosin 1 mg capsule 1 cap PO QHS hydroxyzine HCl 50 mg tablet 100 tab PO TID ipratropium-albuterol 0.5 mg-3 mg(2.5 mg base)/3 mL solution for nebulization 3 ml INHALATION Q4H PRN (Reason: shortness of breath or wheezing) Qty: 180 3RF Discontinued sertraline 100 mg tablet 100 mg PO DAILY clopidogrel 75 mg tablet 75 mg PO DAILY Qty: 90 4RF buspirone 10 MG tablet 10 mg PO TID furosemide 20 mg tablet 20 mg PO DAILY Referrals / Follow Up: Phani Odom MD [Primary Care Provider] - 06/15/22 8:10 am Patrick Stevenson NP, [facility] [Med Staff - [facility]] - 06/30/22 2:00 pm Disposition Disposition (needs filled in before D/C Order can be placed): Home, Self Care Documented by User: Dr. Diego Nichole DO 06/12/22 18:32 Providers Date of Admission: 06/09/22 Reason For Visit: ACUTE ANEMIA, NON-STEMI Diagnosis Discharge Diagnosis (1) Abnormal cardiac enzyme level: Status: Acute Code(s): R74.8 - Abnormal levels of other serum enzymes (2) CAD (coronary artery disease): Status: Acute Code(s): I25.10 - Atherosclerotic heart disease of [place] coronary artery without angina pectoris (3) Presence of stent in coronary artery: Status: Chronic Code(s): Z95.5 - Presence of coronary angioplasty implant and graft (4) Aortocoronary bypass status: Status: Chronic Code(s): Z95.1 - Presence of aortocoronary bypass graft (5) MVP (mitral valve prolapse): Status: Acute Code(s): I34.1 - Nonrheumatic mitral (valve) prolapse (6) Premature ventricular contraction: Status: Chronic Code(s): I49.3 - Ventricular premature depolarization (7) Pure hypercholesterolemia: Status: Chronic Code(s): E78.00 - Pure hypercholesterolemia, unspecified (8) Essential hypertension: Status: Chronic Code(s): I10 - Essential (primary) hypertension (9) COPD (chronic obstructive pulmonary disease): Status: Chronic Code(s): J44.9 - Chronic obstructive pulmonary disease, unspecified (10) Adenocarcinoma of lung, stage 1: Status: Acute Code(s): C34.90 - Malignant neoplasm of unspecified part of unspecified bronchus or lung Qualifiers: Laterality: right Qualified Code(s): C34.91 - Malignant neoplasm of unspecified part of right bronchus or lung (11) Anemia: Status: Acute Code(s): D64.9 - Anemia, unspecified Medications at Discharge Home Medications omeprazole 20 mg capsule,delayed release 20 mg PO DAILY acid reflux 02/04/16 primidone 50 mg tablet 100 mg PO QHS seizures 30 days #30 tabs 08/17/18 albuterol sulfate 90 mcg/actuation aerosol inhaler 1 puff inhalation Q6H PRN PRN Sob &/Or Wheezing 07/28/20 budesonide 1 mg/2 mL suspension for nebulization 1 mg (2 mL) inhalation BID #60 mL 12/26/20 ipratropium 0.5 mg-albuterol 3 mg (2.5 mg base)/3 mL nebulization soln 3 ml inhalation Q4H PRN shortness of breath or wheezing #180 mL 12/29/20 nitroglycerin 0.4 mg sublingual tablet 0.4 mg sublingual Q5M PRN Chest Pain #25 tabs 02/23/21 ondansetron HCl 4 mg tablet (Zofran) 4 mg PO Q8H PRN nausea and vomiting #20 tabs 04/08/21 metoprolol succinate 25 mg tablet,extended release 24 hr 12.5 mg PO DAILY #45 tabs 12/25/21 hydroxyzine HCl 50 mg tablet 100 tab PO TID MOOD 06/09/22 prazosin 1 mg capsule 1 cap PO QHS BP 06/09/22 buspirone 15 mg tablet 15 mg PO TID 30 days #90 tabs 06/11/22 ferrous sulfate 325 mg (65 mg iron) tablet,delayed release 325 mg PO BID #60 tabs 06/11/22 furosemide 20 mg tablet 20 mg PO DAILY 30 days #30 tabs 06/11/22 nebulizer and compressor #1 ea 06/11/22 potassium chloride 20 mEq tablet,extended release(part/cryst) (Klor-Con M) 40 meq PO DAILYCM 10 days #20 tabs 06/11/22 sertraline 100 mg tablet 150 mg PO DAILY 30 days #45 tabs 06/11/22 ABG / Lab / Microbiology Data Result Diagrams: 06/11/22 05:50 06/11/22 05:50 Discharge Plan Admission Admit Date/Time: 06/09/22 17:49 Primary Reason for Your Visit: Anemia, NSTEMI Attending Provider: Diego Nichole Primary Care Provider: Phani Odom Consulting Providers: Stephon Castro Instructions Additional Instructions / Restrictions: Follow up with Primary care provider for CBC and recheck of potassium Discharge Orders/Prescriptions Prescriptions: New sertraline 100 mg Tablet 150 mg PO DAILY 30 Days Qty: 45 0RF potassium chloride [Klor-Con M20] 20 mEq Tablet,Er Particles/Crystals 40 meq PO DAILYCM 10 Days Qty: 20 0RF furosemide 20 mg Tablet 20 mg PO DAILY 30 Days Qty: 30 0RF buspirone 15 mg Tablet 15 mg PO TID 30 Days Qty: 90 0RF ferrous sulfate 325 mg (65 mg iron) tablet,delayed release (DR/EC) 325 mg PO BID Qty: 60 0RF (DME) nebulizer and compressor Device See Rx Instructions .Route Qty: 1 0RF Rx Instructions: As directed Continued primidone 50 mg tablet 100 mg PO QHS 30 Days Qty: 30 nitroglycerin 0.4 mg tablet, sublingual 0.4 mg SUBLINGUAL Q5M PRN (Reason: Chest Pain) Qty: 25 3RF Label Comments: chest pain Rx Instructions: Place one tab under tongue every 5 minutes x 3 doses as needed budesonide 1 mg/2 mL suspension for nebulization 1 mg INHALATION BID Qty: 60 6RF metoprolol succinate 25 mg tablet extended release 24 hr 12.5 mg PO DAILY Qty: 45 4RF ondansetron HCl [Zofran] 4 mg tablet 4 mg PO Q8H PRN (Reason: nausea and vomiting) Qty: 20 1RF Rx Instructions: take 1 tab PO q 8hrs prn nausea omeprazole 20 MG capsule 20 mg PO DAILY Label Comments: heart burn albuterol sulfate 1 PUFF inhaler 1 puff INHALATION Q6H PRN PRN (Reason: Sob &/Or Wheezing) prazosin 1 mg capsule 1 cap PO QHS hydroxyzine HCl 50 mg tablet 100 tab PO TID ipratropium-albuterol 0.5 mg-3 mg(2.5 mg base)/3 mL solution for nebulization 3 ml INHALATION Q4H PRN (Reason: shortness of breath or wheezing) Qty: 180 3RF Discontinued sertraline 100 mg tablet 100 mg PO DAILY clopidogrel 75 mg tablet 75 mg PO DAILY Qty: 90 4RF buspirone 10 MG tablet 10 mg PO TID furosemide 20 mg tablet 20 mg PO DAILY Referrals / Follow Up: Phani Odom MD [Primary Care Provider] - 06/15/22 8:10 am Patrick Stevenson NP, [facility] [Med Staff - Adv Practice Prof] - 06/30/22 2:00 pm Disposition Disposition (needs filled in before D/C Order can be placed): Home, Self Care Charges/Coding Addendum Addendum: Patient was seen and examined today independently of Destiny Gonzalez, she underwent endoscopy today which showed diverticulosis and 1 to 2 mm polyps at the splenic flexure and hepatic flexure-these were removed with a hot snare. 2 bleeding colonic angiodysplasia lesions were identified and treated with a monopolar probe. Patient's EGD was unremarkable. On examination she appeared in good health and spirits, she does not appear to be in any distress. Vital signs as documented. Skin warm and dry and without overt rashes. Neck without JVD, thyroid appears normal, trachea is midline, neck is supple. Lungs clear, normal air movement was noted. Heart exam notable for regular rhythm, normal sounds and absence of murmurs, rubs or gallops. Abdomen unremarkable and without evidence of organomegaly, masses, or abdominal aortic enlargement, bowel sounds are present in all 4 quadrants, no abdominal tenderness was noted. Extremities nonedematous, no cyanosis was noted, no clubbing was noted. Neuro: Cranial nerves II through XII are grossly intact, no focal motor deficits were noted, sensation to light touch and pinprick is intact, motor exam 5/5 throughout. Psych: Patient is alert and oriented x3, she does not appear anxious or depressed, she does not appear agitated. Patient appears stable for discharge at this time. I talked with cardiology and they did not have any medication adjustments to make on this patient, they did not recommend the use of Plavix for this patient. #1 [id number] may be related to the patient's anemia, patient's echocardiogram today showed a normal EF with moderate pulmonary hypertension, there was moderate mitral valve insufficiency and moderate tricuspid valve insufficiency.? Cardiology stated to me that there were no plans for any cardiac catheterization at this time. #2 acute on chronic iron deficiency anemia requiring a blood transfusion, etiology of the iron deficiency anemia was unknown-patient will receive IV iron tomorrow, she got a dose today also, patient will undergo an EGD and a colonoscopy tomorrow #3 chronic obstructive pulmonary disease-patient will be placed on DuoNeb aerosols along with Pulmicort aerosols #4 coronary artery disease-patient has had a previous coronary artery bypass, her last cardiac catheterization here was in 2019 and it showed the grafts to be patent.? Continue present medications with the exception of Plavix.? Cardiology is participating in her care #5 essential hypertension-patient will remain on her present medications #6 hypokalemia-corrected at this time after the administration of potassium #7 neurogenic bladder-patient is on Prazosin #8 moderate pulmonary hypertension-complicates care, management, recovery, and prognosis I have reviewed Destiny Carlos's discharge summary including her medical assessment and plan of care with the above additions endorse it. Total clinical time spent by myself addressing the patient's medical issues, reviewing the data, and collaborating with patient's care team: 30 minutes Visit Charges Inpatient E&M: [id number] Disch Hosp
[2022-06-11] MEDS: Furosemide 20 MG Tablet PO (12:54)
--- NOTE | 2022-06-11 12:54 | CASEMGMT ---
This RN CM to room to discuss discharge plan and pt states no concerns with going home and declines need for any further therapy. Pt does request a script for a nebulizer, stating she has meds at home for same but 's aide 'misplaced' her nebulizer. Script obtained and faxed to [facility] per pt request. SStaten MARIA TERESA CM
[2022-06-11] MEDS: Sertraline 100 MG Tablet 150 MG PO (12:55)
[2022-06-11] MEDS: Potassium Chloride Oral Tablet 20 MEQ 40 MEQ PO (12:55)
[2022-06-11] MEDS: hydrOXYzine PAM 25 MG Capsule 100 MG PO (13:04)
[2022-06-11] MEDS: busPIRone 15 MG TABLET PO (13:04)
== END 2022-06-11 14:10 | disposition home or self-care (01) | DRG 377 ==
LOC: ED 17:27 → PCU 17:47
PROVIDERS: Internal Medicine; Internal Medicine Gastroenterology; Nurse Practitioner Family; Admitting Provider Internal Medicine; Emergency Provider Emergency Medicine; PCP Family Medicine; Visit Provider Internal Medicine
PROC: 0DJD8ZZ Inspection of Lower Intestinal Tract, Via Natural or Artificial Opening Endoscopic (ICD-10-PCS; CPT 45378; principal; 2022-06-11 11:00)
DX: K55.21 Angiodysplasia of colon with hemorrhage (principal); I50.33 Acute on chronic diastolic (congestive) heart failure; I21.A1 Myocardial infarction type 2; D62 Acute posthemorrhagic anemia; I27.20 Pulmonary hypertension, unspecified; K22.2 Esophageal obstruction; J44.9 Chronic obstructive pulmonary disease, unspecified; I11.0 Hypertensive heart disease with heart failure; F17.210 Nicotine dependence, cigarettes, uncomplicated; E78.00 Pure hypercholesterolemia, unspecified; E87.6 Hypokalemia; K21.9 Gastro-esophageal reflux disease without esophagitis; I25.2 Old myocardial infarction; I25.5 Ischemic cardiomyopathy; F41.9 Anxiety disorder, unspecified; I08.1 Rheumatic disorders of both mitral and tricuspid valves; K44.9 Diaphragmatic hernia without obstruction or gangrene; K57.30 Diverticulosis of large intestine without perforation or abscess without bleeding; K64.8 Other hemorrhoids; D12.3 Benign neoplasm of transverse colon; F32.A Depression, unspecified; I49.3 Ventricular premature depolarization; N31.9 Neuromuscular dysfunction of bladder, unspecified; Z90.2 Acquired absence of lung [part of]; Z95.1 Presence of aortocoronary bypass graft; Z95.5 Presence of coronary angioplasty implant and graft; Z79.02 Long term (current) use of antithrombotics/antiplatelets; Z79.51 Long term (current) use of inhaled steroids; Z79.899 Other long term (current) drug therapy; Z85.118 Personal history of other malignant neoplasm of bronchus and lung
CPT/HCPCS: 36415; 71045; 80048; 80053; 83540; 83550; 83735; 83880; 84484; 85025; 86850; 86900; 86901; 86920; 86922; 87811; 88305; 93005; 93306; 94640; 97802; 99251; 99284; 99406; J7040; J7050; P9016; A4216; G0463; J1940; J2916

== ENCOUNTER 2022-06-14 13:26 | Inpatient (IN) | payer MEDICARE, SELFPAY ==
[2021-10-20 08:51] VITALS: BMI 26.6
[2022-06-14] VITALS (13 sets, daily range): BP systolic 126–153; BP diastolic 68–91; PULSE 73–109; RESP 16–25; TEMP 35.9–37.2; O2SAT 94–98; BMI 29.2; BMI 28.9
--- NOTE | 2022-06-14 13:43 | EKG12_ITS ---
Test Reason : cp Blood Pressure : / mmHG Vent. Rate : 079 BPM Atrial Rate : 079 BPM P-R Int : 158 ms QRS Dur : 096 ms QT Int : 418 ms P-R-T Axes : -23 022 -10 degrees QTc Int : 479 ms Normal sinus rhythm Normal ECG Confirmed by JOSEPHINE CHOI, LONA ([id number]), fan mail editor BAR GUERRA ([id number]) on 06/15/2022 9:27:02 AM Referred By: Aleksandr Confirmed By:LONA BURTON MD
[2022-06-14 14:03] LABS: Absolute Lymphocyte Count 0.96 X10^3/uL (0.83-4.51); Absolute Neutrophil Count 3.5 X10^3/uL (2.0-7.7); Basophil# 0.04 X10^3/uL; Basophil% 0.8 % (0-1); Eosinophil# 0.12 X10^3/uL; Eosinophils% 2.3 % (0-5); Hematocrit 34.7 % (37-47); Hemoglobin 10.6 g/dL (12.0-15.0); Lymphocyte # 0.96 X10^3/ul (0.83-4.51); Lymphocyte % 18.8 % (19-41); Mean Corp Hgb Conc 30.5 g/dL (32-36); Mean Corpuscular Hgb 24.8 pg (27.0-32.0); Mean Corpuscular Volume 81.1 fL (81-99); Mean Platelet Vol. 10.9 fl (6.2-12.0); Monocyte# 0.47 X10^3/uL; Monocyte% 9.2 % (0-10); NRBC Flagged by Analyzer 0 % (0-5); Neutrophil % 68.3 % (47-70); POSITIVE COUNT YES; POSITIVE MORPHOLOGY YES; Platelet Count 170 K/mm3 (150-450); RBC Distribution Width CV 21.2 % (11.6-14.6); RBC Distribution Width SD 61.1 fl (35.1-43.9); Red Blood Count 4.28 M/mm3 (4.2-5.4); White Blood Count 5.1 K/mm3 (4.4-11.0)
--- NOTE | 2022-06-14 14:16 | RAD_ITS ---
EXAM: XR CHEST, 1 VIEW CLINICAL INDICATION: Chest pain. TECHNIQUE: Frontal view of the chest. This report was created using [employer] report generation technology. COMPARISON: 06/09/2022. FINDINGS: LUNGS AND PLEURAL SPACES: Peripheral scarring in the right upper hemithorax is unchanged. No suspicious infiltrates. No pneumothorax. No effusion. HEART: Cardiomegaly is unchanged. MEDIASTINUM: Central airways and mediastinal contour are unremarkable. BONES/JOINTS: Median sternotomy from CABG procedure. Midline metallic plate with transfixing screws in the cervical spine were present previously. SOFT TISSUES: Unremarkable. RAD/Chest 1 View (Portable) IMPRESSION: No acute findings in the chest and no significant interval change when compared to 06/09/2022. Electronically Signed: Helio Woodall MD at 14:35 EDT ,
[2022-06-14 14:20] LABS: BNP,B-Type NATRIURETIC PEPTIDE 1338.2 pg/mL (0-100)
[2022-06-14 14:21] LABS: Anion Gap 7 (5-15); BUN 15 mg/dL (7-18); BUN/Creat Ratio 14.3 RATIO (10-20); Calcium,Total 9.3 mg/dL (8.5-10.1); Chloride 100 mmol/L (98-107); Creatinine, Serum 1.05 mg/dL (0.55-1.02); EST Glomerular Filtration Rate 56 mL/min (>60); Est Glom Filt Rate - Afr Amer 68 mL/min (>60); Estimated Creatinine Clearance 44.19 ml/min; Glucose 94 mg/dL (74-106); Potassium 4.5 mmol/L (3.5-5.1); Sodium Level 130 mmol/L (136-145); Troponin-I HS (w/2H Reflex) 204 pg/mL (3.0-54.0)
--- NOTE | 2022-06-14 14:26 | EDS_ITS ---
HPI History of Present Illness Chief Complaint: Chest Pain Informant: patient Narrative Narrative: Patient is a 67-year-old female with extensive medical history including prior lung cancer status post right lobectomy, coronary artery disease, COPD, hypertension, obstructive sleep apnea and ischemic cardiomyopathy presenting with chest pain. Patient was hospitalized 06/09 through 06/11 for acute anemia as well as 2 to 3 weeks of shortness of breath and dyspnea on exertion. Patient had an NSTEMI at that time and was treated conservatively with blood products. She had an EGD and colonoscopy which showed 2 bleeding colonic angiodysplastic lesions which were treated with monopolar probe and had polyps at the splenic and hepatic flexures removed with a normal EGD. Today around 9 AM patient developed an episode of chest pain. Is in the center of her chest rating to her left arm. She describes as burning and tight nature. She took a nitroglycerin which did help with her symptoms. She is continue to feel short of breath since being discharged from the hospital. She notes her stools are now darker because she was placed on iron. No other acute complaints at this time. Patient did not had a cardiac catheterization during her most recent hospitalization her last cardiac catheterization for chart review was [facility] Medical History Atherosclerotic heart disease of [place] coronary artery without angina pectoris Chest pain, unspecified Congestive heart failure COPD (chronic obstructive pulmonary disease) DDD (degenerative disc disease) Essential hypertension Lung cancer Melanoma Nonrheumatic mitral (valve) prolapse HOWARD (obstructive sleep apnea) Osteoarthritis Pericardial effusion Premature ventricular contraction Pulmonary nodules Tobacco abuse Worsening angina Home Medications omeprazole 20 mg capsule,delayed release 20 mg PO DAILY acid reflux 02/04/16 [History Last Taken 06/09/22] primidone 50 mg tablet 100 mg PO QHS seizures 30 days #30 tabs 08/17/18 [History Last Taken 06/08/22] albuterol sulfate 90 mcg/actuation aerosol inhaler 1 puff inhalation Q6H PRN PRN Sob &/Or Wheezing 07/28/20 [History Last Taken 06/09/22] budesonide 1 mg/2 mL suspension for nebulization 1 mg (2 mL) inhalation BID #60 mL 12/26/20 [Rx Last Taken Unknown] ipratropium 0.5 mg-albuterol 3 mg (2.5 mg base)/3 mL nebulization soln 3 ml inhalation Q4H PRN shortness of breath or wheezing #180 mL 12/29/20 [Rx Last Taken 06/08/22] nitroglycerin 0.4 mg sublingual tablet 0.4 mg sublingual Q5M PRN Chest Pain #25 tabs 02/23/21 [Rx Last Taken Unknown] ondansetron HCl 4 mg tablet (Zofran) 4 mg PO Q8H PRN nausea and vomiting #20 tabs 04/08/21 [Rx Last Taken Unknown] metoprolol succinate 25 mg tablet,extended release 24 hr 12.5 mg PO DAILY #45 tabs 12/25/21 [Rx Last Taken 06/09/22] hydroxyzine HCl 50 mg tablet 100 tab PO TID MOOD 06/09/22 [History Last Taken 06/09/22] prazosin 1 mg capsule 1 cap PO QHS BP 06/09/22 [History Last Taken 06/08/22] buspirone 15 mg tablet 15 mg PO TID 30 days #90 tabs 06/11/22 [Rx Last Taken Unknown] ferrous sulfate 325 mg (65 mg iron) tablet,delayed release 325 mg PO BID #60 tabs 06/11/22 [Rx Last Taken Unknown] furosemide 20 mg tablet 20 mg PO DAILY 30 days #30 tabs 06/11/22 [Rx Last Taken Unknown] nebulizer and compressor #1 ea 06/11/22 [Rx Last Taken Unknown] potassium chloride 20 mEq tablet,extended release(part/cryst) (Klor-Con M) 40 meq PO DAILYCM 10 days #20 tabs 06/11/22 [Rx Last Taken Unknown] sertraline 100 mg tablet 150 mg PO DAILY 30 days #45 tabs 06/11/22 [Rx Last Taken Unknown] Allergy/AdvReac Type Severity Reaction Status Date / Time Iodinated Contrast Media Allergy Hives Verified 06/14/22 13:35 [Iodinated Contrast Media - IV Dye] tetracycline [Tetracycline] Allergy Hives Verified 06/14/22 13:35 pravastatin AdvReac Intermediate Upset Verified 06/14/22 13:35 Stomach atorvastatin [From Lipitor] AdvReac myalgia Verified 06/14/22 13:35 Family History Father Hypertension Colon cancer Mother Cancer LUNG CANCER/ SMOKER Father , MELANOMA No problems noted. Surgical History Aortocoronary bypass status (~05/12/04) History of abdominal surgery History of bowel resection History of cataract surgery History of cholecystectomy History of total hysterectomy Hx of appendectomy interstim placement (~08/05/20) Postsurgical percutaneous transluminal coronary angioplasty (PTCA) status (~03/12/18) Presence of coronary angioplasty implant and graft (~03/12/18) Presence of stent in coronary artery S/P partial lobectomy of lung Social History adopted: No household members: spouse housing: house number of children: 1 current occupational status: retired current occupational exposures/hazards: No Smoking Status: Current every day smoker tobacco type: cigarettes Tobacco: How many years used: 50 how long ago did patient quit smokin01/28/21 alcohol intake: never substance use type: does not use caffeine: Yes Type: coffee Number of servings: 1 ROS ROS ED Constitutional Constitutional ED: Denies chills or fever(s) Eyes Eyes: Denies blurry vision ENT ENT ED: Denies rhinorrhea or sore throat Cardiovascular Cardiovascular: Reports as per HPI and chest pain Respiratory/Chest Respiratory/Chest: Reports dyspnea; Denies cough Gastrointestinal Gastrointestinal: Denies abdominal pain, diarrhea, melena, nausea or vomiting Genitourinary Genitourinary ED: Denies dysuria Musculoskeletal Musculoskeletal: Denies arthralgias or myalgias Integumentary Denies rash Neurologic Neurologic: Reports weakness; Denies headache(s) Psychiatric Psychiatric: Denies anxiety Hematologic/Lymphatic Hematologic/Lymphatic: Denies easy bleeding or easy bruising EXAM Physical Exam Const Vital Signs: 06/14/22 13:27 06/14/22 13:43 06/14/22 13:46 Temperature 96.6 F L Temperature Source Temporal Pulse Rate 80 Respiratory Rate 23 H Respiratory Effort Normal Non-Labored Blood Pressure 127/86 H Blood Pressure Mean 99 Pulse Ox 97 95 Oxygen Delivery Method Room Air Room Air 06/14/22 14:48 Temperature Temperature Source Pulse Rate 77 Respiratory Rate 20 H Respiratory Effort Blood Pressure 138/68 H Blood Pressure Mean 91 Pulse Ox 96 Oxygen Delivery Method Room Air Positive well nourished and well developed General Appearance ED: well developed and NAD HEENT Reports moist mucous membranes Eyes PERRL and EOMs intact bilaterally Neck supple Chest Wall inspection of chest normal and palpation of chest normal Resp clear to auscultation bilaterally Resp Narrative: Tachypneic, decreased breath sounds on the right side consistent with history of prior lobectomy Cardio regular rate, regular rhythm and no murmurs GI normal to inspection, nondistended, normoactive bowel sounds and non-tender Back/Spine no CVA tenderness Extremity normal to inspection General Extremety ED: Negative for edema or pulses abnormal General Extremity: Negative for edema or pulses abnormal Neuro oriented x3 and CN's II-XII intact bilaterally Motor Exam: general weakness Psych mental status grossly normal Mood & Affect: anxious Skin no rashes or lesions noted Heart Score History: Moderately Suspicious ECG: Nonspecific Repolarization Age: >/= 65 years Risk Factors: >/= 3 Risk Factors or History of CAD Troponin: >/=3 x Normal Limit Score: 8 MDM MDM MDM Narrative Medical decision making narrative: Patient evaluated for an episode of chest pain as well as continued dyspnea and dyspnea on exertion for the past 2 to 3 weeks. She was just hospitalized for NSTEMI that to be secondary to acute anemia from an occult GI bleed. While her hemoglobin is stable however she is just a short of breath as when she left the hospital. High since he troponin is still elevated but downtrending and is now 204. Her hemoglobin is stabilized at 10.6. Her BNP continues to go climb up at 1338 however patient does not appear clinically fluid overloaded. Case is discussed with Dr. Catsro, her tool specialist, who agrees that CTA of the chest to rule out PE or other pulmonary cause of her symptoms is a good idea. If that is normal he will consider whether she requires cardiac catheterization. Patient be admitted to the medicine service for further evaluation. While she is short of breath in the ER she does not have any chest pain. Will defer anticoagulation at this time given her recent bleed. Lab Data Attestation: I reviewed the patient's lab results. Labs: Laboratory Results - last 24 hr 06/14/22 06/14/22 06/14/22 13:38 13:38 13:38 WBC 5.1 RBC 4.28 Hgb 10.6 L Hct 34.7 L MCV 81.1 MCH 24.8 L MCHC 30.5 L RDW Std Deviation 61.1 H RDW Coeff of Kit 21.2 H Plt Count 170 MPV 10.9 Immature Gran % (Auto) 0.600 Neut % (Auto) 68.3 Lymph % (Auto) 18.8 L [place] % (Auto) 9.2 Eos % (Auto) 2.3 Baso % (Auto) 0.8 Absolute Neuts (auto) 3.5 Absolute Lymphs (auto) 0.96 Nucleated RBC % 0 Platelet Estimate ADEQUATE Anisocytosis 1+ Sodium 130 L Potassium 4.5 Chloride 100 Carbon Dioxide 23.0 Anion Gap 7 BUN 15 Creatinine 1.05 H Estim Creat Clear Calc 44.19 Est GFR (MDRD) Af Amer 68 Est GFR (MDRD) Non-Af 56 L BUN/Creatinine Ratio 14.3 Glucose 94 Calcium 9.3 Troponin I High Sens 204 H* B-Natriuretic Peptide 1338.2 H Radiography Chest X-Ray - ED: 1 View, Read by ED Physician, Read by Radiologist, No Acute Disease and Chronic Changes Diagnostic Testing: Clinical Impression(s) from Imaging Studies Chest X-Ray 06/14/22 14:16 IMPRESSION: No acute findings in the chest and no significant interval change when compared to 06/09/2022. Electronically Signed: Helio Woodall MD at 14:35 EDT , Rhythm Strip Rhythm Strip: Sinus Rhythm Rate: 79 Ectopy: None EKG Initial EKG: Attestation: I personally reviewed and interpreted this EKG as follows: Interpretation: Sinus Rhythm Comments: Normal sinus rhythm at a rate of 79 Normal axis Normal intervals T wave inversion in lead III No change greater prior EKG Prior EKG tracings: available for review Prior: Unchanged Discharge Plan Triage Chief Complaint: Chest Pain ED Provider: Tita Brandon Dx/Rx/DC Orders Clinical Impression: Non-ST elevation (NSTEMI) myocardial infarction, Shortness of breath, GARRISON (dyspnea on exertion), Chest pain Prescriptions: No Action primidone 50 mg tablet 100 mg PO QHS 30 Days Qty: 30 nitroglycerin 0.4 mg tablet, sublingual 0.4 mg SUBLINGUAL Q5M PRN (Reason: Chest Pain) Qty: 25 3RF Label Comments: chest pain Rx Instructions: Place one tab under tongue every 5 minutes x 3 doses as needed budesonide 1 mg/2 mL suspension for nebulization 1 mg INHALATION BID Qty: 60 6RF metoprolol succinate 25 mg tablet extended release 24 hr 12.5 mg PO DAILY Qty: 45 4RF ondansetron HCl [Zofran] 4 mg tablet 4 mg PO Q8H PRN (Reason: nausea and vomiting) Qty: 20 1RF Rx Instructions: take 1 tab PO q 8hrs prn nausea omeprazole 20 MG capsule 20 mg PO DAILY Label Comments: heart burn albuterol sulfate 1 PUFF inhaler 1 puff INHALATION Q6H PRN PRN (Reason: Sob &/Or Wheezing) prazosin 1 mg capsule 1 cap PO QHS hydroxyzine HCl 50 mg tablet 100 tab PO TID sertraline 100 mg Tablet 150 mg PO DAILY 30 Days Qty: 45 0RF potassium chloride [Klor-Con M20] 20 mEq Tablet,Er Particles/Crystals 40 meq PO DAILYCM 10 Days Qty: 20 0RF furosemide 20 mg Tablet 20 mg PO DAILY 30 Days Qty: 30 0RF buspirone 15 mg Tablet 15 mg PO TID 30 Days Qty: 90 0RF ferrous sulfate 325 mg (65 mg iron) tablet,delayed release (DR/EC) 325 mg PO BID Qty: 60 0RF (DME) nebulizer and compressor Device See Rx Instructions .Route Qty: 1 0RF Rx Instructions: As directed ipratropium-albuterol 0.5 mg-3 mg(2.5 mg base)/3 mL solution for nebulization 3 ml INHALATION Q4H PRN (Reason: shortness of breath or wheezing) Qty: 180 3RF Primary Care Provider: Phani Odom Referrals: Phani Odom MD [Primary Care Provider] - Disposition Disposition: Acute Care [facility]
[2022-06-14 14:28] LABS: Differential Indicated SCAN CRITERIA MET
[2022-06-14 14:29] LABS: Anisocytosis 1+; Platelet Estimate ADEQUATE (ADEQ)
--- NOTE | 2022-06-14 14:54 | CT_ITS ---
EXAM: CT ANGIOGRAPHY CHEST WITHOUT AND WITH INTRAVENOUS CONTRAST CLINICAL INDICATION: Shortness of breath. Chest pain. TECHNIQUE: Helically acquired angiography images were obtained of the chest without and with intravenous contrast. This CT exam was performed using one or more of the following dose reduction techniques: automated exposure control, adjustment of the mA and/or kV according to patient size, and/or use of iterative reconstruction technique. This report was created using VANCL report generation technology. MIP reconstructed images were created and reviewed. CONTRAST: IV 100mL [id number] RADIATION DOSE: CTDIvol = 11.04 mGy, DLP = 4.7051 mGy-cm COMPARISON: CT chest without contrast 03/11/2022. FINDINGS: PULMONARY ARTERIES: Unremarkable. Normal in caliber. No evidence of pulmonary embolism. AORTA: Unremarkable. Normal in caliber. No evidence of dissection. GREAT VESSELS OF AORTIC ARCH: Unremarkable. Normal in caliber. No evidence of dissection. LUNGS AND PLEURAL SPACES: 2 areas of pleural-based densities in the lateral aspect of the right upper lobe with radiopaque clips in between. The upper pleural-based density is approximately 12 mm thick, previously 10 mm. The lower pleural-based density is 16 mm thick, previously 7.5 mm thick. Mosaic perfusion in both lungs are new findings. Peripheral peribronchial wall thickening both lungs. No mass. No pneumothorax. HEART: Cardiomegaly is unchanged. No pericardial effusion. No signs of right heart strain, ratio of right ventricle to left ventricle measures less than 1. MEDIASTINUM: Unremarkable. No mediastinal or hilar adenopathy. Esophagus is unremarkable. No hiatal hernia. THYROID: Unremarkable. No thyroid lesions. BONES/JOINTS: Unremarkable. No suspicious lytic or blastic abnormality. CT/CTA Chest W/WO Contrast IMPRESSION: 1. No CTA evidence of pulmonary thromboemboli, thoracic aortic aneurysm or dissection. 2. Mild increased thickening of the pleural based densities in the lateral aspect of the right upper lobe when compared to 03/11/2022. The lower pleural-based density is much thicker. Etiology is unknown but this is feasible for CT guided biopsy. 3. Mosaic perfusion rather than groundglass opacities in both lungs are new findings. This is most likely secondary to airway disease. Electronically Signed: Helio Woodall MD at 15:59 EDT ,
--- NOTE | 2022-06-14 15:44 | HP.PCM.HOS_ITS ---
HPI - General General Date of Admission: 06/14/22 Date of Service: 06/14/22 Chief Complaint: Chest pain, dyspnea. HPI Narrative The patient is a 67 y/o F w/ PMHx: CAD s/p CABG and PCI, COPD, HTN, HLD, Hx Lung CA s/p remote partial lobectomy status postsurgical excision and radiation therapy, Tobacco use, Anxiety and Depression, Chronic Diastolic CHF, HOWARD non- compliant with CPAP/BIPAP per discussions, recent discharge 06/11/22 following adm ission for worsened fatigue, dyspnea with acute GI bleed requiring 3 unit PRBC administration during admission and GI consultation with noted angiodysplastic lesions in the colon cauterized x2 with stabilization of hemoglobin following with baseline prior 10-11 with low point 06/09/2022 hemoglobin 7.2 with repeat assessments upon presentation currently 10.6 stable from discharge with associated NSTEMI felt secondary to demand given acute GI bleed with a concurrent acute on chronic diastolic CHF exacerbation with transient IV Lasix administration with EF of 65% with mild MVI who now re-presents to the [facility] ED on 06/14/22 with history of ongoing dyspnea, worse with exertion with episode on day of presentation being awoke at ~ 8-9 am with central midsternal chest pain, described as burning and tightness, rated 9/10 in severity, nearly brought her to tears with increased dyspnea despite lay in bed lasting 15-20 minutes at which point it resolved following self NG administration. She does mention that she has had similar presentation with chest pain in the past. In the ED work-up included T96.6, heart rate 80, BP initially 127/86, respiratory rate 23, 97% on room air, CBC with WC 5.1, hemoglobin 10.6, platelet 170 without marked shift, BMP with sodium 130, BUN/creatinine 15/1.05, BNP 1338.2, troponin initial 204, EKG with sinus rhythm with no acute evidence of ischemia with unchanged T wave inversions in lead III similar to prior, chest x-ray with no acute cardiopulmonary findings compared to 06/09/2022, CTPA with no evidence of pulmonary thromboemboli, thoracic aortic aneurysm or dissection, mild increased thickening of the pleural-based densities in the lateral aspect of the right upper lobe compared to 03/11/2022 and lower pleural-based density noted be much thicker, mosaic perfusion rather than groundglass opacities in both lungs which is new suspicious for airway disease. ED physician did discuss case with recycling assistant Dr. Castro who noted intention to admit and potential need for repeat cardiac catheterization. Upon evaluation of patient did discuss patient's history at length with Dr. Beasley, gastroenterology who noted he was amenable for patient to be resumed on her antiplatelet therapy which was also discussed with cardiology therefore patient restarted on aspirin and Plavix with intention for a.m. cardiac catheterization. Also discussed CTA results with cardiology and will request pulmonary involvement with case reviewed with Dr. Garcia. [facility] Medical History Atherosclerotic heart disease of [place] coronary artery without angina pectoris Chest pain, unspecified Congestive heart failure COPD (chronic obstructive pulmonary disease) DDD (degenerative disc disease) Essential hypertension Lung cancer Melanoma Nonrheumatic mitral (valve) prolapse HOWARD (obstructive sleep apnea) Osteoarthritis Pericardial effusion Premature ventricular contraction Pulmonary nodules Tobacco abuse Worsening angina Home Medications omeprazole 20 mg capsule,delayed release 20 mg PO DAILY acid reflux 02/04/16 [History Last Taken 06/13/22] primidone 50 mg tablet 100 mg PO QHS seizures 30 days #30 tabs 08/17/18 [History Last Taken 06/13/22] albuterol sulfate 90 mcg/actuation aerosol inhaler 1 puff inhalation Q6H PRN PRN Sob &/Or Wheezing 07/28/20 [History Last Taken 06/14/22] ipratropium 0.5 mg-albuterol 3 mg (2.5 mg base)/3 mL nebulization soln 3 ml inhalation Q4H PRN shortness of breath or wheezing #180 mL 12/29/20 [Rx Last Taken 06/08/22] nitroglycerin 0.4 mg sublingual tablet 0.4 mg sublingual Q5M PRN Chest Pain #25 tabs 02/23/21 [Rx Last Taken 06/14/22] ondansetron HCl 4 mg tablet (Zofran) 4 mg PO Q8H PRN nausea and vomiting #20 tabs 04/08/21 [Rx Last Taken 06/13/22] hydroxyzine HCl 50 mg tablet 100 tab PO TID MOOD 06/09/22 [History Last Taken 06/13/22] prazosin 1 mg capsule 1 cap PO QHS BP 06/09/22 [History Last Taken 06/13/22] nebulizer and compressor #1 ea 06/11/22 [Rx Last Taken Unknown] budesonide 1 mg/2 mL suspension for nebulization 1 mg inhalation BID SOB 06/14/22 [History Last Taken Unknown] buspirone 15 mg tablet 15 mg PO TID anxiety 06/14/22 [History Last Taken 06/13/22] ferrous sulfate 325 mg (65 mg iron) tablet,delayed release 325 mg PO BID supplement 06/14/22 [History Last Taken Unknown] furosemide 20 mg tablet 20 mg PO DAILY edema 06/14/22 [History Last Taken 06/13/22] metoprolol succinate 25 mg tablet,extended release 24 hr 12.5 mg PO DAILY bp 06/14/22 [History Last Taken 06/13/22] potassium chloride 20 mEq tablet,extended release(part/cryst) (Klor-Con M) 40 meq PO DAILYCM supplement 06/14/22 [History Last Taken 06/13/22] sertraline 100 mg tablet 150 mg PO DAILY mood 06/14/22 [History Last Taken 06/13/22] Allergy/AdvReac Type Severity Reaction Status Date / Time Iodinated Contrast Media Allergy Hives Verified 06/14/22 13:35 [Iodinated Contrast Media - IV Dye] tetracycline [Tetracycline] Allergy Hives Verified 06/14/22 13:35 pravastatin AdvReac Intermediate Upset Verified 06/14/22 13:35 Stomach atorvastatin [From Lipitor] AdvReac myalgia Verified 06/14/22 13:35 Family History Father Hypertension Colon cancer Mother Cancer LUNG CANCER/ SMOKER Father , MELANOMA No problems noted. Surgical History Aortocoronary bypass status (~05/12/04) History of abdominal surgery History of bowel resection History of cataract surgery History of cholecystectomy History of total hysterectomy Hx of appendectomy interstim placement (~08/05/20) Postsurgical percutaneous transluminal coronary angioplasty (PTCA) status (~03/12/18) Presence of coronary angioplasty implant and graft (~03/12/18) Presence of stent in coronary artery S/P partial lobectomy of lung Social History adopted: No household members: spouse housing: house number of children: 1 current occupational status: retired current occupational exposures/hazards: No Smoking Status: Current every day smoker tobacco type: cigarettes Tobacco: How many years used: 50 how long ago did patient quit smokin01/28/21 alcohol intake: never substance use type: does not use caffeine: Yes Type: coffee Number of servings: 1 ROS ROS Narrative Admission Review of Systems: CONSTITUTIONAL: No weight loss, fever, chills, + weakness or fatigue. HEENT: Eyes: No visual loss, blurred vision, double vision or yellow sclerae. Ears, Nose, Throat: No hearing loss, sneezing, congestion, runny nose or sore throat. SKIN: No rash or itching, lesions, wounds. CARDIOVASCULAR: + chest pain, chest pressure or chest discomfort, No palpitations, edema, orthopnea, syncopal events. RESPIRATORY: + shortness of breath, No cough or sputum, wheezing, hemoptysis. GASTROINTESTINAL: No anorexia, nausea, vomiting or diarrhea, abdominal pain, melena, BRBPR. GENITOURINARY: No dysuria, frequency, urgency or retention. NEUROLOGICAL: No headache, dizziness, syncope, paralysis, ataxia, numbness or tingling in the extremities, focal weakness, change in bowel or bladder control, seizure. MUSCULOSKELETAL: + muscle, back pain, joint pain or stiffness. HEMATOLOGIC: + anemia, bleeding or bruising. LYMPHATICS: No enlarged nodes. No history of splenectomy. PSYCHIATRIC: + history of depression or anxiety. ENDOCRINOLOGIC: No reports of sweating, cold or heat intolerance. No polyuria or polydipsia. ALLERGIES: + history of hives. Vital Signs Vital Signs Vital Signs: 06/14/22 13:27 06/14/22 13:43 06/14/22 13:46 Temperature 96.6 F L Temperature Source Temporal Pulse Rate 80 Respiratory Rate 23 H Respiratory Effort Normal Non-Labored Blood Pressure 127/86 H Blood Pressure Mean 99 Pulse Ox 97 95 Oxygen Delivery Method Room Air Room Air 06/14/22 14:48 Temperature Temperature Source Pulse Rate 77 Respiratory Rate 20 H Respiratory Effort Blood Pressure 138/68 H Blood Pressure Mean 91 Pulse Ox 96 Oxygen Delivery Method Room Air Weight Weight: 165 lb 2.02 oz Body Mass Index (BMI) 29.2 Physical Exam Narrative Physical Examination: General: Awake, alert, oriented x 3 and cooperative, seated upright in the ED bed, anxious, denies any current chest discomfort. Skin: Normal color, normal turgor, no icterus, no cyanosis. HEENT: AT/NC, EOMI, PERRLA, MMM, no carotid bruits or JVD noted. Lungs: Diminished, greater bases, right greater than left, mildly increased respiratory rate but no evidence of any distress, occasional end expiratory wheeze, no rhonchi or marked rales noted. Heart: Currently regular rate and rhythm; no gallop, rub audible. Abdomen: Soft, overweight, NTTP, ND, distant normal BS, no HSM. Extremities: No cyanosis, clubbing, or edema. Neurological: Patient awake, alert, oriented as noted, cognitive function in tact; pupils equally reactive to light and accommodation, cranial nerves II-XII grossly normal, moving all 4 extremities, no focal deficits, strength moderately global decrease secondary to acute presentation. Psychiatric: Affect appears fatigued, anxious, underlying history of depression and anxiety. Results Lab / Micro Data Result Diagrams: 06/14/22 13:38 06/14/22 13:38 Labs: Laboratory Results - last 24 hr 06/14/22 13:38: WBC 5.1, RBC 4.28, Hgb 10.6 L, Hct 34.7 L, MCV 81.1, MCH 24.8 L, MCHC 30.5 L, RDW Std Deviation 61.1 H, RDW Coeff of Kit 21.2 H, Plt Count 170, MPV 10.9, Immature Gran % (Auto) 0.600, Neut % (Auto) 68.3, Lymph % (Auto) 18.8 L, [place] % (Auto) 9.2, Eos % (Auto) 2.3, Baso % (Auto) 0.8, Absolute Neuts (auto) 3.5, Absolute Lymphs (auto) 0.96, Nucleated RBC % 0, Platelet Estimate ADEQUATE, Anisocytosis 1+ 06/14/22 13:38: Sodium 130 L, Potassium 4.5, Chloride 100, Carbon Dioxide 23.0, Anion Gap 7, BUN 15, Creatinine 1.05 H, Estim Creat Clear Calc 44.19, Est GFR (MDRD) Af Amer 68, Est GFR (MDRD) Non-Af 56 L, BUN/Creatinine Ratio 14.3, Glucose 94, Calcium 9.3, Troponin I High Sens 204 H* 06/14/22 13:38: B-Natriuretic Peptide 1338.2 H Radiology Impression Chest X-Ray 06/14/22 14:16 IMPRESSION: No acute findings in the chest and no significant interval change when compared to 06/09/2022. Electronically Signed: Helio Woodall MD at 14:35 EDT , Assessment & Plan Assessment/Plan (1) Chest pain: PLAN: Plan The patient is a 67 y/o F w/ PMHx: CAD s/p CABG and PCI, COPD, HTN, HLD, Hx Lung CA s/p remote partial lobectomy status postsurgical excision and radiation therapy, Tobacco use, Anxiety and Depression, Chronic Diastolic CHF, HOWARD non-c ompliant with CPAP/BIPAP per discussions, recent discharge 06/11/22 following admission for worsened fatigue, dyspnea with acute GI bleed requiring 3 unit PRBC administration during admission and GI consultation with noted angiodysplastic lesions in the colon cauterized x2 with stabilization of hemogl obin following with baseline prior 10-11 with low point 06/09/2022 hemoglobin 7.2 with repeat assessments upon presentation currently 10.6 stable from discharge with associated NSTEMI felt secondary to demand given acute GI bleed with a concurrent acute on chronic diastolic CHF exacerbation with transient IV Lasix administration with EF of 65% with mild MVI who now re-presents to the [facility] ED on 06/14/22 with history of ongoing dyspnea, worse with exertion with episode on day of presentation being awoke at ~ 8-9 am with central midsternal chest pain, described as burning and tightness, rated 9/10 in severity, nearly brought her to tears with increased dyspnea despite lay in bed lasting 15-20 minutes at which point it resolved following self NG administration. #1. Chest Pain, dyspnea likely multifactorial w/ Recent Acute NSTEMI, suspected secondary to Demand secondary to #3 Acute GI bleed with acute blood loss anemia on chronic and also likely contributed to by #2: EKG in ED w/ sinus rhythm with no acute evidence of ischemia, CTPA as noted does have some findings of thickening pleural-based densities in the right upper lobe densities compared to prior with also mosaic perfusion patterns in both lungs, pulmonary medicine has been consulted and this is pending. Trop elevated, 204 however this is decreased from 06/09/2022 568 with recent NSTEMI. Will admit to PCU, maintain on a monitored bed, continue serial cardiac enzymes and EKGs. Obtain magnesium level upon admission. Given recent GI bleed discussed patient status with GI as well as cardiology and will resume both aspirin and Plavix. We will continue beta- johny, statin allergy noted but plan FLP in AM. Will maintain n.p.o. after midnight and per discussion with cardiology will avoid any aggressive hydration given recent overload. 06/10/2022 echocardiogram with EF 60%, moderately enlarged LA, mild MV stenosis, mild MV prolapse, moderate MVI, moderate TVI, trivial PVI, RVSP 57 mmHg consistent with pulmonary hypertension, transmitral diastolic flow velocity suggestive of diastolic dysfunction. #2. History of lung cancer: Status post remote partial lobectomy status post surgical excision and radiation therapy, previously considered in remission however as noted CTPA with no evidence of pulmonary emboli, aortic aneurysm or dissection but mild increased thickening of the pleura base densities in the lateral aspect of the right upper lobe compared to 03/11/2022 as well as lower pleural-based density which is much thicker in addition to a mosaic perfusion pattern rather than groundglass opacities in both lungs which is new suspicious for airway disease. Discussed with cardiology and will request pulmonary inv olvement with Dr. Garcia who noted intention to see 06/15/2022 as certainly could be contributing to patient's exertional dyspnea complaints. Unfortunate given presentation patient will be resumed on aspirin and Plavix at this time which may preclude a biopsy immediately. #3. Recent acute GI bleed with acute blood loss anemia on chronic: Patient with recent presentation with hemoglobin decreased down to 7.2 on 06/09/2022 with baseline noted normally 10-11, received 3 unit PRBC and underwent cauterization of angiodysplastic lesion x2 in the colon by patient support assistant Dr. Beasley, repeat hemoglobin upon current presentation stabilized 10.6, similar to discharge, we will continue to closely follow. Patient has been cleared by gastroenterology to resume both aspirin and Plavix antiplatelet therapy and her presentation is noted. #4. CAD: Status post CABG and PCI, recently held antiplatelet therapy secondary to GI bleed, discussed with gastroenterology and cardiology and will resume both aspirin and Plavix at this time with continued close monitoring, continue patient metoprolol, not on statin therapy secondary to intolerance and not on GAUTAM inhibitor/ARB but will defer to cardiology. #5. Hypertension: Continue home regimen including Lasix, metoprolol, not on any severe/ARB we will defer to cardiology given presentation as noted, PRN hydralazine. #6. Hyperlipidemia: We will obtain FLP in a.m., not on statin therapy secondary to intolerance history. #7. Anxiety and depression: We will continue patient home BuSpar and sertraline regimen. She did discuss frankly that she is been under a lot of stress and extremely anxious and specifically requested an additional anxiety medication as needed which will be added but noted to her that if there is any concern for respiratory suppression this would be held. #8. HOWARD: Noncompliant with CPAP/BiPAP or discussions. #9. DVT prophylaxis: SCDs, as noted antiplatelet therapy was restarted for clearance with gastroenterology discussion but will avoid chemoprophylaxis to assure hemoglobin stable with these agents alone. #10. CODE status: Patient DEANGELO is her and her daughter Shira and living will is currently in. Discussed CODE status at length including difference between FULL code, DNR-CCA and DNR-CC status. Following discussions about the differences in these status, requested Full Code status. Advanced Care Planning Face to Face Time: 16 minutes. Charges/Coding Visit Charges OBSV E&M: 69772 Initial observation care L3 Procedures Hospitalists Procedures: 25218 Advncd Care Plan 30 Min
[2022-06-14 15:53] LABS: Reflex Troponin-HS? (from REC) Y
--- NOTE | 2022-06-14 16:45 | NURSING ---
PCU OBS WHITE CHEST PAIN
[2022-06-14 16:54] LABS: Troponin-I HS 198 pg/mL (3.0-54.0)
--- NOTE | 2022-06-14 17:56 | EKG12_ITS ---
Test Reason : AM EKG Blood Pressure : / mmHG Vent. Rate : 070 BPM Atrial Rate : 070 BPM P-R Int : 180 ms QRS Dur : 104 ms QT Int : 500 ms P-R-T Axes : 001 008 -16 degrees QTc Int : 540 ms Normal sinus rhythm T wave abnormality, consider anterior ischemia Abnormal ECG When compared with ECG of 15-JUN-2022 10:44, MANUAL COMPARISON REQUIRED, DATA IS UNCONFIRMED Confirmed by JOSEPHINE CHOI, LONA ([id number]), newspaper copy editor VERÓNICA THAPA ([id number]) on 06/17/2022 1:14:54 PM Referred By: Confirmed By:LONA BURTON MD
--- NOTE | 2022-06-14 18:16 | PCM.CONS.C ---
Assessment & Plan Assessment/Plan (1) Worsening angina: PLAN: The patient presents with symptoms concerning for worsening angina pectoris. At the present time she is being monitored. She will continue medical therapy with adjustment of medications as deemed appropriate. She has already undergone recent noninvasive valuation as noted. She will be considered for further evaluation with diagnostic cardiac catheterization. The procedure and risks have been discussed with the patient and she is agreeable to this approach. (2) Shortness of breath: PLAN: Patient has a history of shortness of breath/dyspnea. The etiology may be multifactorial. This could include her underlying cardiopulmonary disease etiologies From a cardiac standpoint this could include the possibility of progression of her underlying [place] vessel disease however possibly graft vessel disease. Thus she will be further evaluated as noted. She has already been evaluated with a chest x-ray and chest CTA. There is no great vessel disease. However, there are concerns about underlying pulmonary disease. Thus it would be reasonable for her to be evaluated by pulmonology as well. (3) CAD (coronary artery disease): PLAN: She does have a history of extensive [place] vessel CAD. Her most recent noninvasive and invasive interventional evaluations were reviewed. At the moment she will continue medical therapy and further evaluation as noted (4) Presence of stent in coronary artery: PLAN: She does have a history of a left main coronary artery stent. She underwent previous PTCA of this vessel-no recent found. Thus there could be concern of progression of disease that would be contributing to her symptoms. She will continue evaluation as noted (5) Aortocoronary bypass status: PLAN: Her last cardiac catheterization procedure demonstrated her grafts to be patent. There may be concern to whether she has underlying progression of graft vessel disease. ? She will continue to be monitored, continue medical therapy, and continue her evaluation as noted. (6) Non-ST elevation (NSTEMI) myocardial infarction: PLAN: She was diagnosed with a recent non-ST segment elevation KS thought to be a type II event secondary to her marked anemia secondary to her gastrointestinal bleeding process. Her troponin I levels continue to decrease. She has no new acute ECG changes. However, based on her worsening symptoms she will proceed with additional cardiac evaluation. (7) MVP (mitral valve prolapse): PLAN: She has a history of MVP. She recently underwent reassessment of her mitral valve anatomy and physiology. This was done with a transthoracic echocardiogram. (8) Pure hypercholesterolemia: PLAN: She has a history of hyperlipidemia. She should continue medical therapy as best as possible. (9) Essential hypertension: PLAN: She does have a history of hypertension. She will continue medical therapy. (10) Primary lung adenocarcinoma: QUALIFIERS: Laterality: right Qualified Code(s): C34.91 - Malignant neoplasm of unspecified part of right bronchus or lung PLAN: She has history of lung carcinoma has undergone previous radiation therapy and right lateral thoracotomy/surgical resection. There are some concerns based on her chest CTA as to whether or not the findings are related to her previous radiation therapy and surgery versus whether she has any recurrence of her underlying lung carcinoma. Thoughts would be reasonable to have the patient evaluated by pulmonology (11) Anemia: PLAN: Her hemoglobin appears to be stable at this time. She will need to be monitored for any significant decline as she restarts her medical therapy with respect to her antiplatelet agents. (12) GI bleed: PLAN: Her anemia was thought to be due to a lower GI bleeding process. She underwent evaluation care per Dr. Beasley of gastroenterology for that issue. According to Dr. Moulton, from her conversation with Dr. Beasley, this appears to be stable at this time and the patient can restart her antiplatelet therapy. She will need to be monitored for any obvious recurrent bleeding related issues. Addt'l Comments The patient's case has been discussed and reviewed with patient, Dr. Brandon of the [facility] emergency department staff, and Dr. Moul[facility] staff. HPI Consult Data Date of Consult: 06/14/22 HPI Narrative HPI Narrative: TEODORO ALMEIDA, is a 67 year old white female who presents cardiovascular consultation based upon concerns of chest discomfort concerning for worsening angina pectoris, shortness of breath/dyspnea, a recent abnormal high-sensitivity troponin I level compatible with non-ST segment elevation type II secondary to anemia secondary to gastrointestinal bleeding process, superimposed upon a history of underlying premature CAD with multi coronary revascularization procedures including both PCI and CABG, and ischemic mediated cardiomyopathy, MVP, hyperlipidemia, hypertension, COPD, and lung carcinoma status post surgical excision (right thoracotomy). She states that today she noted chest burning sensation radiating to her right upper extremity associated with her shortness of breath and dyspnea as well as diaphoresis. She used nitroglycerin sublingual x1 and felt better. She states she then went and slept for period of time. Based upon the symptoms she elected to present to the hospital for further evaluation and care. She states that since her recent hospitalization for her anemia which was related to a lower gastrointestinal bleeding process she has been short of breath and dyspneic with activity. There is been no acute orthopnea or PND. She notes waxing and waning lower extremity ankle edema. Today was the first time she experienced her chest discomfort and used her nitroglycerin sublingual. She has undergone reevaluation with cardiac enzymes. Her high-sensitivity troponin levels remain abnormal although they are decreased compared to her recent levels. Her BNP level remains elevated. Her ECG demonstrated sinus rhythm with low voltage QRS in the limb leads. She underwent a chest x-ray and a chest CTA. The results are noted below. She was recommended for further inpatient evaluation for consideration of further cardiovascular evaluation with diagnostic cardiac catheterization. She has recently undergone noninvasive cardiovascular evaluation with a transthoracic echocardiogram on 06-09-2022. The results are noted below. In the interim Dr. Moulton did contact DrEamon Beasley regarding her recent gastrointestinal bleeding process and the ability to reinitiate antiplatelet therapy such as aspirin and clopidogrel/Plavix. According to Dr. Moulton these medications were able to be restarted barring unforeseen adverse event. [facility] Medical History Atherosclerotic heart disease of [place] coronary artery without angina pectoris Chest pain, unspecified Congestive heart failure COPD (chronic obstructive pulmonary disease) DDD (degenerative disc disease) Essential hypertension Lung cancer Melanoma Nonrheumatic mitral (valve) prolapse HOWARD (obstructive sleep apnea) Osteoarthritis Pericardial effusion Premature ventricular contraction Pulmonary nodules Tobacco abuse Worsening angina Home Medications omeprazole 20 mg capsule,delayed release 20 mg PO DAILY acid reflux 02/04/16 [History Last Taken 06/13/22] primidone 50 mg tablet 100 mg PO QHS seizures 30 days #30 tabs 08/17/18 [History Last Taken 06/13/22] albuterol sulfate 90 mcg/actuation aerosol inhaler 1 puff inhalation Q6H PRN PRN Sob &/Or Wheezing 07/28/20 [History Last Taken 06/14/22] ipratropium 0.5 mg-albuterol 3 mg (2.5 mg base)/3 mL nebulization soln 3 ml inhalation Q4H PRN shortness of breath or wheezing #180 mL 12/29/20 [Rx Last Taken 06/08/22] nitroglycerin 0.4 mg sublingual tablet 0.4 mg sublingual Q5M PRN Chest Pain #25 tabs 02/23/21 [Rx Last Taken 06/14/22] ondansetron HCl 4 mg tablet (Zofran) 4 mg PO Q8H PRN nausea and vomiting #20 tabs 04/08/21 [Rx Last Taken 06/13/22] hydroxyzine HCl 50 mg tablet 100 tab PO TID MOOD 06/09/22 [History Last Taken 06/13/22] prazosin 1 mg capsule 1 cap PO QHS BP 06/09/22 [History Last Taken 06/13/22] nebulizer and compressor #1 ea 06/11/22 [Rx Last Taken Unknown] budesonide 1 mg/2 mL suspension for nebulization 1 mg inhalation BID SOB 06/14/22 [History Last Taken Unknown] buspirone 15 mg tablet 15 mg PO TID anxiety 06/14/22 [History Last Taken 06/13/22] ferrous sulfate 325 mg (65 mg iron) tablet,delayed release 325 mg PO BID supplement 06/14/22 [History Last Taken Unknown] furosemide 20 mg tablet 20 mg PO DAILY edema 06/14/22 [History Last Taken 06/13/22] metoprolol succinate 25 mg tablet,extended release 24 hr 12.5 mg PO DAILY bp 06/14/22 [History Last Taken 06/13/22] potassium chloride 20 mEq tablet,extended release(part/cryst) (Klor-Con M) 40 meq PO DAILYCM supplement 06/14/22 [History Last Taken 06/13/22] sertraline 100 mg tablet 150 mg PO DAILY mood 06/14/22 [History Last Taken 06/13/22] Allergy/AdvReac Type Severity Reaction Status Date / Time Iodinated Contrast Media Allergy Hives Verified 06/14/22 13:35 [Iodinated Contrast Media - IV Dye] tetracycline [Tetracycline] Allergy Hives Verified 06/14/22 13:35 pravastatin AdvReac Intermediate Upset Verified 06/14/22 13:35 Stomach atorvastatin [From Lipitor] AdvReac myalgia Verified 06/14/22 13:35 Family History Father Hypertension Colon cancer Mother Cancer LUNG CANCER/ SMOKER Father , MELANOMA No problems noted. Surgical History Aortocoronary bypass status (~05/12/04) History of abdominal surgery History of bowel resection History of cataract surgery History of cholecystectomy History of total hysterectomy Hx of appendectomy interstim placement (~08/05/20) Postsurgical percutaneous transluminal coronary angioplasty (PTCA) status (~03/12/18) Presence of coronary angioplasty implant and graft (~03/12/18) Presence of stent in coronary artery S/P partial lobectomy of lung Social History adopted: No household members: spouse housing: house number of children: 1 current occupational status: retired current occupational exposures/hazards: No Smoking Status: Current every day smoker tobacco type: cigarettes Tobacco: How many years used: 50 how long ago did patient quit smokin01/28/21 alcohol intake: never substance use type: does not use caffeine: Yes Type: coffee Number of servings: 1 ROS Constitutional Constitutional: Reports as per HPI Eyes Eyes: Reports as per HPI ENT HEENT: Reports as per HPI Cardiovascular Cardiovascular: Reports chest pain, chest pain at rest, diaphoresis, dyspnea, dyspnea at rest and dyspnea on exertion Respiratory/Chest Respiratory/Chest: Reports dyspnea and dyspnea on exertion Gastrointestinal Gastrointestinal: Reports systems reviewed and no addt'l complaints, except as documented Genitourinary Genitourinary: Reports systems reviewed and no addt'l complaints, except as documented Musculoskeletal Musculoskeletal: Reports systems reviewed and no addt'l complaints, except as documented Integumentary Integumentary: Reports systems reviewed and no addt'l complaints, except as documented Neurologic Neurologic: Reports systems reviewed and no addt'l complaints, except as documented Psychiatric Psychiatric: Reports systems reviewed and no addt'l complaints, except as documented Physical Exam Const alert, oriented x3 and no apparent distress Orientation / Consciousness: awake HEENT normocephalic, head/scalp atraumatic and hearing grossly normal bilaterally Eyes PERRL, EOMs intact bilaterally, conjunctivae normal and no scleral icterus Neck full ROM, supple and no JVD Chest Chest: midline sternotomy incision Resp Auscultation: wheezes scattered wheezes and diminished lung sounds bilateral throughout Cardio regular rate, regular rhythm, S1 normal heart sound and S2 normal heart sound Heart Sounds: click mid GI normal to inspection, nondistended, normoactive bowel sounds Extremity no pedal edema Psych mental status grossly normal Risk Stratification Risk Stratification Applicable: Yes Age >/= 65: Yes >/= 3 CAD Risk Factors (HTN, HLD, DM, family hx of CAD, or current smoker): Yes Aspirin Use in the Past 7 Days: No Severe Angina (>/= episodes in 24 hours): Yes EKG ST Changes >/= 0.5mm: No Positive Cardiac Marker: Yes LIZETH Risk Stratification Score: 4 LIZETH % Risk: 20% Risk Procedure Criteria Type of Procedure Procedure Type: Elective Elective Risks - COVID COVID Risk Discussion: The surgeon/proceduralist and patient have discussed in detail the risk of exposure to and/or potential harm posed by the COVID-19 virus with having a surgery/procedure at this time versus the risk of delaying the surgery/procedure. It is not possible to know either the risk of delaying the surgery or procedure or chance of getting an infection with perfect accuracy, but a joint decision was made between the patient and the surgeon/proceduralist to proceed at this time with the scheduled surgery/procedure as indicated on the consent form. Objective Data Vital Signs: Vital Signs Temp Pulse Resp BP Pulse Ox O2 Del Method 97.8 F 78 16 133/81 H 96 Room Air 06/14/22 17:45 06/14/22 17:45 06/14/22 17:45 06/14/22 17:45 06/14/22 17:45 06/14/22 17:45 Oxygen Delivery Method Room Air Weight: 163 lb 5.8 oz Body Mass Index (BMI) 28.9 Lab / Micro Data Result Diagrams: 06/14/22 13:38 06/14/22 13:38 Labs: Laboratory Results - last 24 hr 06/14/22 10:02: Magnesium 2.0, Troponin I High Sens 198 H* 06/14/22 13:38: WBC 5.1, RBC 4.28, Hgb 10.6 L, Hct 34.7 L, MCV 81.1, MCH 24.8 L, MCHC 30.5 L, RDW Std Deviation 61.1 H, RDW Coeff of Kit 21.2 H, Plt Count 170, MPV 10.9, Immature Gran % (Auto) 0.600, Neut % (Auto) 68.3, Lymph % (Auto) 18.8 L, [place] % (Auto) 9.2, Eos % (Auto) 2.3, Baso % (Auto) 0.8, Absolute Neuts (auto) 3.5, Absolute Lymphs (auto) 0.96, Nucleated RBC % 0, Platelet Estimate ADEQUATE, Anisocytosis 1+ 06/14/22 13:38: Sodium 130 L, Potassium 4.5, Chloride 100, Carbon Dioxide 23.0, Anion Gap 7, BUN 15, Creatinine 1.05 H, Estim Creat Clear Calc 44.19, Est GFR (MDRD) Af Amer 68, Est GFR (MDRD) Non-Af 56 L, BUN/Creatinine Ratio 14.3, Glucose 94, Calcium 9.3, Troponin I High Sens 204 H* 06/14/22 13:38: B-Natriuretic Peptide 1338.2 H Rhythm Strip Rhythm Strip: Sinus Rhythm Rate: 79 Ectopy: None Cardiology Labs/Tests 06/14/22 10:02: Magnesium 2.0 06/14/22 13:38: WBC 5.1, RBC 4.28, Hgb 10.6 L, Hct 34.7 L, MCV 81.1, MCH 24.8 L, MCHC 30.5 L, Plt Count 170, MPV 10.9, Immature Gran % (Auto) 0.600, Neut % (Auto) 68.3, Lymph % (Auto) 18.8 L, [place] % (Auto) 9.2, Eos % (Auto) 2.3, Baso % (Auto) 0.8, Absolute Neuts (auto) 3.5, Nucleated RBC % 0 06/14/22 13:38: Sodium 130 L, Potassium 4.5, Chloride 100, Carbon Dioxide 23.0, Anion Gap 7, BUN 15, Creatinine 1.05 H, Est GFR (MDRD) Af Amer 68, Est GFR (MDRD) Non-Af 56 L, BUN/Creatinine Ratio 14.3, Glucose 94, Calcium 9.3 06/14/22 13:38: B-Natriuretic Peptide 1338.2 H Rhythm: Sinus rhythm EKG: NSR; Low Voltage QRS (limb leads) ECHO: 06/09/2022 Interpretation Summary Segmental dysfunction with preserved ejection fraction (see wall motion). The estimated ejection fraction is 60 %. The left atrium is moderately enlarged. Mild diffuse mitral valve thickening. The mitral valve chordae are thickened and/or calcified. Mild mitral valve stenosis. Mild mitral valve prolapse. Moderate (2+) eccentric mitral valve insufficiency. Moderate (2+) tricuspid valve insufficiency. Trivial pulmonic valve insufficiency. Calcified aortic root. Right ventricular systolic pressure estimated to be 57 mmHg c/w pulmonary hypertension. Transmitral diastolic flow velocities suggest diastolic dysfunction (pseudonormal pattern). ? Stress Test: 04/16/2019 Stress Test Report .64-year-old lady with a history of coronary artery disease. Stress protocol.? Resting EKG demonstrates sinus bradycardia with a rate of 39 bpm normal intervals are noted resting blood pressures 138/82 mmHg.? 0.4 mg of regadenoson was infused per usual protocol followed by rapid intravenous saline flush injection continuous EKG monitoring was performed.? The patient maintained sinus rhythm throughout the recording.? The maximum heart rate attained was 91 bpm which was 57% of maximum predicted heart rate the maximum workload was 1 metabolic equivalent.? The resting blood pressures 138/82 final blood pressures 110/68.? Nonspecific ST-T wave changes were noted. Myocardial perfusion protocol. 11.2 mCi of technetium 99m sestamibi was injected at rest.? 0.4 mg of regadenoson was infused per usual protocol peak infusion 33.3 mCi of technetium 99m sestamibi was injected stress images were obtained stress and rest images were reconstructed and compared in the short axis vertical long horizontal long axis.? Gated images were also obtained per Perfusion SPECT analysis: Review of the stress images demonstrate normal uptake of tracer noted in all areas of the myocardium.? The resting images similarly demonstrate normal uptake of tracer noted in all areas of the myocardium.? A very small portion of the anterolateral wall on the stress and rest images has a mild reduction of perfusion which appears to be secondary to breast wall attenuation. Gated SPECT analysis: The gated ejection fraction is noted to be 74%. Conclusion: Normal pharmacologic myocardial perfusion stress test. Preserved ejection fraction.. Cardiac Cath: 06/21/2019 CONCLUSIONS Elevated Left Ventricular End Diastolic Pressure LVEF: by LV gram 55 % [place] Multivessel CAD GREEN to LAD: patent SVG to OM3: patent SVG to RCA: patent Left to left collateral flow Right to left collateral flow RECOMMENDATIONS Medical therapy Risk factor modification DESCRIPTION OF? PROCEDURE The patient arrived to the procedure lab. The risks and benefits of the procedure as well as a full description of our services here and current unavailability of surgical backup were fully explained to the patient and/or their significant other prior to the catheterization. The Timeout was completed, verifying the correct patient and procedure. The patient's procedural site was prepped and draped in the usual fashion. Local anesthetic was given subcutaneously to right groin region with Lidocaine 2%. Using a modified Seldinger technique, arterial access was obtained via the right femoral artery, a 4Fr sheath was inserted? Left Coronary Artery selective angiography was performed in multiple views using a 4 Fr. JL5 catheter. Saphenous Vein graft to the OM 3 selective angiography was performed in multiple views using a 4 Fr. 3DRC catheter. Saphenous Vein graft to the RCA selective angiography was performed in multiple views using a 4 Fr. JR4 catheter. Left internal mammary artery graft to the LAD selective angiography was performed in multiple views using a 4 Fr. JR4 catheter. Left Ventriculography was performed in GALVEZ projection using a 4 Fr. Pigtail catheter. LV to AO pullback pressures were then recorded.The arterial sheath was pulled and manual compression applied until hemostasis is achieved. CORONARY ANGIOGRAPHY DOMINANCE:? Right Dominant LEFT HEART ASSESSMENT Left Ventricular Ejection Fraction: by LV Gram 55 % Inferior Basal Akinesis Elevated Left Ventricular End Diastolic Pressure LVEDP: 22 mmHg LEFT MAIN: Previously placed stent has an instent 10 - 25 % restenosis LEFT ANTERIOR DESCENDING ARTERY: PROX LAD: Previously placed stent is patent, Mild luminal irregularities MID LAD: fills from antegrade flow and GREEN flow with no angiographically significant appearing disease distal to the graft attachment DIAGONAL 1: Proximal - Mild luminal irregularities CIRCUMFLEX ARTERY: PROX CIRC: Previously placed stent is occluded RAMUS: Previously placed stent is occluded RIGHT CORONARY ARTERY: OSTIAL RCA: is occluded GRAFTS: ?GREEN graft to the Mid LAD is patent Saphenous Vein graft to the 3rd OM is patent with no angiographically significant disease distal to the anastomosis and providing left to left collateral flow Saphenous Vein graft to the Distal CIRC is patent with no angiographically significant disease distal to the anastomosis and providing right to left collateral flow COLLATERAL FLOW: Collateral flow from Left to Left Collateral flow from Right to Left PCI: 04/04/2018 LM: PTCA (no stent) CT Surgery: CABG from 05/12/2004 [facility]: GREEN to the LAD, SVG to the ramus intermedius of the circumflex system and SVG to the RCA Chest CT Scan: FINDINGS: PULMONARY ARTERIES:? Unremarkable.? Normal in caliber.? No evidence of pulmonary embolism. AORTA:? Unremarkable.? Normal in caliber.? No evidence of dissection. GREAT VESSELS OF AORTIC ARCH:? Unremarkable.? Normal in caliber.? No evidence of dissection. LUNGS AND PLEURAL SPACES:? 2 areas of pleural-based densities in the lateral aspect of the right upper lobe with radiopaque clips in between. The upper pleural-based density is approximately 12 mm thick, previously 10 mm.? The lower pleural-based density is 16 mm thick, previously 7.5 mm thick.? Mosaic perfusion in both lungs are new findings.? Peripheral peribronchial wall thickening both lungs.? No mass.? No pneumothorax. HEART:? Cardiomegaly is unchanged.? No pericardial effusion.? No signs of right heart strain, ratio of right ventricle to left ventricle measures less than 1. MEDIASTINUM:? Unremarkable.? No mediastinal or hilar adenopathy.? Esophagus is unremarkable.? No hiatal hernia. THYROID:? Unremarkable.? No thyroid lesions. BONES/JOINTS:? Unremarkable.? No suspicious lytic or blastic abnormality. CT/CTA Chest W/WO Contrast IMPRESSION: ? 1.? No CTA evidence of pulmonary thromboemboli, thoracic aortic aneurysm or dissection. ? 2.? Mild increased thickening of the pleural based densities in the lateral aspect of the right upper lobe when compared to 03/11/2022.? The lower pleural-based density is much thicker.? Etiology is unknown but this is feasible for CT guided biopsy. ? 3.? Mosaic perfusion rather than groundglass opacities in both lungs are new findings.? This is most likely secondary to airway disease. ? Electronically Signed: Helio Woodall MD at 15:59 EDT Radiography Diagnostic Testing: Radiology Impression Chest X-Ray 06/14/22 14:16 IMPRESSION: No acute findings in the chest and no significant interval change when compared to 06/09/2022. Electronically Signed: Helio Woodall MD at 14:35 EDT , Chest CTA 06/14/22 14:54 IMPRESSION: 1. No CTA evidence of pulmonary thromboemboli, thoracic aortic aneurysm or dissection. 2. Mild increased thickening of the pleural based densities in the lateral aspect of the right upper lobe when compared to 03/11/2022. The lower pleural-based density is much thicker. Etiology is unknown but this is feasible for CT guided biopsy. 3. Mosaic perfusion rather than groundglass opacities in both lungs are new findings. This is most likely secondary to airway disease. Electronically Signed: Helio Woodall MD at 15:59 EDT ,
[2022-06-14] MEDS: Clopidogrel Bisulfate 75 MG Tablet PO (18:43)
[2022-06-14] MEDS: Aspirin 81 MG TAB.CHEW PO (18:43)
[2022-06-14 18:58] LABS: Troponin-I HS 222 pg/mL (3.0-54.0)
[2022-06-14] MEDS: Budesonide Respules 0.5 MG/2 ML AMPUL.NEB. 1 MG INHALATION (21:09)
[2022-06-14] MEDS: Albuterol 2.5 MG/3 ML VIAL.NEB. INHALATION (21:09)
[2022-06-14] MEDS: DiphenhydrAMINE 25 MG Capsule 50 MG PO (22:41)
[2022-06-14] MEDS: Prazosin HCl 1 MG Capsule PO (22:42)
[2022-06-14] MEDS: Primidone 50 MG Tablet 100 MG PO (22:42)
[2022-06-14] MEDS: busPIRone 15 MG TABLET PO (22:42)
[2022-06-14] MEDS: predniSONE 20 MG Tablet 60 MG PO (22:43)
[2022-06-14] MEDS: Famotidine 20 MG Tablet PO (22:43)
[2022-06-14] MEDS: hydrOXYzine PAM 25 MG Capsule 100 MG PO (22:43)
[2022-06-14] MEDS: LORazepam 0.5 MG Tablet PO (22:44)
[2022-06-14] MEDS: MELATONIN 3 MG TABLET PO (22:44)
[2022-06-15] VITALS (20 sets, daily range): BP systolic 118–159; BP diastolic 77–114; PULSE 71–94; RESP 16–22; TEMP 36.2–36.7; O2SAT 94–100
--- NOTE | 2022-06-15 05:55 | EKG12_ITS ---
Test Reason : PCI Blood Pressure : / mmHG Vent. Rate : 072 BPM Atrial Rate : 072 BPM P-R Int : 172 ms QRS Dur : 098 ms QT Int : 442 ms P-R-T Axes : 051 020 002 degrees QTc Int : 483 ms Normal sinus rhythm Normal ECG When compared with ECG of 14-JUN-2022 19:21, MANUAL COMPARISON REQUIRED, DATA IS UNCONFIRMED Confirmed by JOSEPHINE CHOI, LONA ([id number]), fashion editor VERÓNICA THAPA ([id number]) on 06/17/2022 1:16:49 PM Referred By: Kenney Confirmed By:LONA BURTON MD
[2022-06-15] MEDS: Metoprolol(XL)Succ 25 MG Tablet 12.5 MG PO (06:07)
[2022-06-15] MEDS: busPIRone 15 MG TABLET PO ×3 (06:07→20:29)
[2022-06-15] MEDS: hydrOXYzine PAM 25 MG Capsule 100 MG PO ×3 (06:08→20:29)
[2022-06-15] MEDS: Aspirin 81 MG TAB.CHEW PO (06:08)
[2022-06-15] MEDS: Clopidogrel Bisulfate 75 MG Tablet PO (06:08)
[2022-06-15] MEDS: Budesonide Respules 0.5 MG/2 ML AMPUL.NEB. 1 MG INHALATION ×2 (06:54→20:31)
[2022-06-15 07:19] LABS: Basophil# 0.01 X10^3/uL; Basophil% 0.3 % (0-1); Hematocrit 31.3 % (37-47); Lymphocyte % 11.4 % (19-41); Mean Corp Hgb Conc 31.9 g/dL (32-36); Mean Corpuscular Hgb 25.3 pg (27.0-32.0); Mean Corpuscular Volume 79.2 fL (81-99); Monocyte% 2.8 % (0-10); NRBC Flagged by Analyzer 0 % (0-5); Neutrophil # 2.97 X10^3/uL (2.7-7.7); Neutrophil % 84.6 % (47-70); POSITIVE DIFFERENTIAL YES; POSITIVE MORPHOLOGY YES; Platelet Count 161 K/mm3 (150-450); RBC Distribution Width SD 60.2 fl (35.1-43.9); Red Blood Count 3.95 M/mm3 (4.2-5.4); White Blood Count 3.5 K/mm3 (4.4-11.0)
[2022-06-15 07:26] LABS: Differential Indicated SCAN CRITERIA MET
[2022-06-15] MEDS: Famotidine 20 MG Tablet PO (07:44)
[2022-06-15] MEDS: DiphenhydrAMINE 25 MG Capsule 50 MG PO (07:44)
[2022-06-15] MEDS: MethylPREDNISolone 125 MG/2 ML Vial IV (07:44)
[2022-06-15 07:48] LABS: Anisocytosis 1+; Hypochromasia RARE; Platelet Estimate ADEQUATE (ADEQ)
[2022-06-15 08:06] LABS: ALB/GLOB Ratio 0.9 RATIO (0.9-2.4); AST(SGOT) 15 U/L (15-37); Alanine Aminotransfer ALT/SGPT 19 U/L (13-56); Albumin, Serum 3.1 g/dL (3.2-5.0); Alkaline Phosphatase 58 U/L (45-117); Anion Gap 7 (5-15); BUN 15 mg/dL (7-18); BUN/Creat Ratio 15.2 RATIO (10-20); Chloride 101 mmol/L (98-107); Cholesterol 104 mg/dL (200); Creatinine, Serum 0.99 mg/dL (0.55-1.02); EST Glomerular Filtration Rate 60 mL/min (>60); Est Glom Filt Rate - Afr Amer 72 mL/min (>60); Estimated Creatinine Clearance 46.86 ml/min; Globulin 3.6 g/dL (2.2-4.2); Glucose 136 mg/dL (74-106); High Density Lipoprotein 45 mg/dL; Potassium 4.6 mmol/L (3.5-5.1); Protein, Total 6.7 g/dL (6.4-8.2); Sodium Level 131 mmol/L (136-145); Triglycerides 54 mg/dL; Troponin-I HS 122 pg/mL (3.0-54.0); Very Low Density Lipoprotein 11 mg/dL (5-40)
--- NOTE | 2022-06-15 08:14 | PN.HOSP_ITS ---
Subjective Subjective Patient is a 67-year-old lady with multiple comorbidities including coronary artery disease with previous CABG and PCI who presented with chest pain. Found to have elevated troponin consistent with acute non-STEMI admitted to monitored bed with consultation placed to cardiology Objective Data Objective Data Vital Signs: Vital Signs Temp Pulse Resp BP Pulse Ox O2 Del Method 97.8 F 74 18 127/88 H 96 Room Air 06/15/22 06:04 06/15/22 06:07 06/15/22 06:04 06/15/22 06:07 06/15/22 06:04 06/15/22 06:04 Oxygen Delivery Method Room Air Weight: 74 kg Body Mass Index (BMI) 28.9 Lab / Micro Data Result Diagrams: 06/15/22 06:45 06/15/22 06:45 Labs: Laboratory Results - last 24 hr 06/14/22 10:02: Magnesium 2.0, Troponin I High Sens 198 H* 06/14/22 13:38: WBC 5.1, RBC 4.28, Hgb 10.6 L, Hct 34.7 L, MCV 81.1, MCH 24.8 L, MCHC 30.5 L, RDW Std Deviation 61.1 H, RDW Coeff of Kit 21.2 H, Plt Count 170, MPV 10.9, Immature Gran % (Auto) 0.600, Neut % (Auto) 68.3, Lymph % (Auto) 18.8 L, [place] % (Auto) 9.2, Eos % (Auto) 2.3, Baso % (Auto) 0.8, Absolute Neuts (auto) 3.5, Absolute Lymphs (auto) 0.96, Nucleated RBC % 0, Platelet Estimate ADEQUATE, Anisocytosis 1+ 06/14/22 13:38: Sodium 130 L, Potassium 4.5, Chloride 100, Carbon Dioxide 23.0, Anion Gap 7, BUN 15, Creatinine 1.05 H, Estim Creat Clear Calc 44.19, Est GFR (MDRD) Af Amer 68, Est GFR (MDRD) Non-Af 56 L, BUN/Creatinine Ratio 14.3, Gl ucose 94, Calcium 9.3, Troponin I High Sens 204 H* 06/14/22 13:38: B-Natriuretic Peptide 1338.2 H 06/14/22 18:10: Troponin I High Sens 222 H* 06/15/22 06:45: WBC 3.5 L, RBC 3.95 L, Hgb 10.0 L, Hct 31.3 L, MCV 79.2 L, MCH 25.3 L, MCHC 31.9 L, RDW Std Deviation 60.2 H, RDW Coeff of Kit 21.0 H, Plt Count 161, MPV 10.0, Immature Gran % (Auto) 0.900, Neut % (Auto) 84.6 H, Lymph % (Auto) 11.4 L, [place] % (Auto) 2.8, Eos % (Auto) 0.0, Baso % (Auto) 0.3, Absolute Neuts (auto) 3.0, Absolute Lymphs (auto) 0.40 L, Nucleated RBC % 0, Diff Path Review March, Platelet Estimate ADEQUATE, Hypochromasia RARE, Anisocytosis 1+ 06/15/22 06:45: Sodium 131 L, Potassium 4.6, Chloride 101, Carbon Dioxide 23.0, Anion Gap 7, BUN 15, Creatinine 0.99, Estim Creat Clear Calc 46.86, Est GFR (MDRD) Af Amer 72, Est GFR (MDRD) Non-Af 60, BUN/Creatinine Ratio 15.2, Glucose 136 H, Calcium 9.0, Total Bilirubin 0.60, AST 15, ALT 19, Alkaline Phosphatase 58, Troponin I High Sens 122 H*, Total Protein 6.7, Albumin 3.1 L, Globulin 3.6, Albumin/Globulin Ratio 0.9, Triglycerides 54, Cholesterol 104, LDL Cholesterol 48, VLDL Cholesterol 11, HDL Cholesterol 45 Radiography Diagnostic Testing: Radiology Impression Chest X-Ray 06/14/22 14:16 IMPRESSION: No acute findings in the chest and no significant interval change when compared to 06/09/2022. Electronically Signed: Helio Woodall MD at 14:35 EDT , Chest CTA 06/14/22 14:54 IMPRESSION: 1. No CTA evidence of pulmonary thromboemboli, thoracic aortic aneurysm or dissection. 2. Mild increased thickening of the pleural based densities in the lateral aspect of the right upper lobe when compared to 03/11/2022. The lower pleural-based density is much thicker. Etiology is unknown but this is feasible for CT guided biopsy. 3. Mosaic perfusion rather than groundglass opacities in both lungs are new findings. This is most likely secondary to airway disease. Electronically Signed: Helio Woodall MD at 15:59 EDT , Rhythm Strip Rhythm Strip: Sinus Rhythm Rate: 79 Ectopy: None Physical Exam Narrative GENERAL: cooperative HEENT: Atraumatic; EYES; Anicteric, Normal Conjunctiva NECK; supple, normal thyroid, RESPIRATORY: Diminished to auscultation CARDIOVASCULAR: Regular S1 S2, GI: soft, normoactive bowel sounds, : No Renal angle tenderness; EXTREMITIES: No edema, no clubbing, MUSCULOSKELETAL: no muscle wasting NEURO: Awake; no lateralizing signs. SKIN: No Rash PSYCH; Flat affect Assessment & Plan Assessment/Plan (1) Chest pain: PLAN: Plan Patient is a 67-year-old lady with multiple comorbidities including coronary artery disease with previous CABG and PCI who presented with chest pain. Found to have elevated troponin consistent with acute non-STEMI admitted to monitored bed with consultation placed to cardiology 1. Acute non-STEMI ? In the patient with significant cardiac comorbidities including previous CABG and PCI. Patient has been admitted to a monitored bed managed per protocol consultation placed to cardiology plans for patient to undergo diagnostic cardiac catheterization with intervention if warranted 2. Coronary artery disease ? With previous PCI and CABG 3. Hypertension - Blood pressure controlled, home medications continued with dose adjustment as needed 4. Dyslipidemia -Patient is on statin therapy, continued at home dose 5. History of lung CA ? Status post partial lobectomy which was followed by neoadjuvant radiation therapy 6. Chronic diastolic congestive heart failure ? Currently stable 7. COPD ? Currently not in exacerbation aerosol treatments as needed 8. Obstructive sleep apnea ? Apparently noncompliant with CPAP therapy 9. History of recent GI bleed ? Patient was on admission and did require blood transfusion underwent EGD and colonoscopy was noted to have angiodysplastic lesions in the colon which was cauterized 10. Depression with anxiety Tobacco dependence Mitral valve prolapse Charges/Coding Visit Charges Inpatient E&M: 82789 Subs Hosp L3
--- NOTE | 2022-06-15 09:22 | CL.D_ITS ---
Patient Name: TEODORO ALMEIDA Study Date: 06/15/2022 Performing: Stephon Castro MD Ht: 62.99 inches 160 cm : 1955 Wt: 163.14 lbs 74 kg Age: 67 Gender: female BSA: 1.77 PROCEDURE(S) PERFORMED DC04-(73499)LHC/COR/CABG CLINICAL PROFILE AND INDICATIONS Indications: ACS > 24 hrs, Worsening Angina, Suspected CAD Heart Failure: None Stress/Imaging Stress/Image Study Performed: No Angina Classification Anginal Classification w/in 2 Weeks: CCS IV CAD Presentations: Non-STEMI. CONCLUSIONS Elevated Left Ventricular End Diastolic Pressure [place] Multivessel CAD LM: stent: patent GREEN to LAD: patent SVG to OM3: patent SVG to RCA: patent Left to Right Collateral Flow Right to Left Collateral Flow RECOMMENDATIONS Risk factor modification Medical therapy Referred for immediate PCI Case discussed / reviewed with Dr. Worthy of Interventional Cardiology DESCRIPTION OF PROCEDURE The patient arrived to the procedure lab. The risks and benefits of the procedure as well as a full d escription of our services here and current unavailability of surgical backup were fully explained to the patient and/or their significant other prior to the catheterization. The Timeout was completed, verifying the correct patient and procedure. The patient's procedural site was prepped and draped in the usual fashion. Local anesthetic was given subcutaneously to right groin region with Lidocaine 2%. Using a modified Seldinger technique, arterial access was obtained via the right femoral artery, wit h Micropuncture set, arterial access was obtained via the right femoral artery, a 4Fr sheath was inse rted Left Coronary Artery selective angiography was performed in multiple views using a 4 Fr. JL5 ca theter. Right Coronary Artery selective angiography was then performed in multiple views using a 4 Fr . JR4 catheter. Saphenous Vein graft to the Ramus selective angiography was performed in multiple views using a 4 Fr. JR4 catheter. Saphenous Vein graft to the RCA selective angiography was performed in multiple views using a 4 Fr. JR4 catheter. Left internal mammary artery graft to the LAD selective angiography was performed in multiple views using a 4 Fr. JR4 catheter. LV to AO pullback pressures were then recorded. CORONARY ANGIOGRAPHY DOMINANCE: Right Dominant LEFT HEART ASSESSMENT Left Ventricular Ejection Fraction: Not assessed Elevated Left Ventricular End Diastolic Pressure LVEDP: 21 mmHg LEFT MAIN: Previously placed stent is patent with mild luminal irregularities LEFT ANTERIOR DESCENDING ARTERY: PROX LAD: Previously placed stent is patent MID LAD: to distal: fills from antegrade flow but predominantly from GREEN graft flow with no angiogra phically significant disease distal to the graft attachment DIAGONAL 1: Proximal - hazy: 75 % Stenosis CIRCUMFLEX ARTERY: PROX CIRC: Previously placed stent is occluded RAMUS: Previously placed stent is occluded RIGHT CORONARY ARTERY: OSTIAL RCA: is occluded GRAFTS: GREEN graft to the Mid LAD is patent Saphenous Vein graft to the 3rd OM is patent Saphenous Vein graft to the RCA is patent COLLATERAL FLOW: Collateral flow from Left to Right Collateral flow from Right to Left COMPLICATIONS PROCEDURE MEDICATIONS Versed 1 mg IV Versed 1 mg IV Fentanyl 50 mcg IV Oxygen: 2 L/min via nasal cannula Heparin 6000 unit(s) IV 06/15/2022 09:16:09 SUMMARY OF HEMODYNAMIC DATA Time AIR REST ECG 08:01:24 Art 150/78 (106) 08:23:24 AO 140/83 (108) SA 08:28:52 LV 141/1, 29 08:39:51 LV 139/-4, 21 08:39:57 LVp 137/-5, 20 08:40:02 AOp 148/71 (101) 08:40:07 Signed By Stephon Castro MD On 06/15/2022 09:21:43 Stephon Castro MD
--- NOTE | 2022-06-15 09:59 | EX.PCM.CONCC ---
Assessment & Plan Assessment/Plan (1) COPD (chronic obstructive pulmonary disease): PLAN: Plan RECOMMENDATIONS: 1. Continue bronchodilators per home regimen. 2. Encourage incentive spirometer use and mobilize patient as tolerated. 3. Follow-up in the pulmonary medicine clinic as scheduled. 4. We will sign off at this time. Please call with any additional questions. IMPRESSIONS: 1. History of lung CA/abnormal CT scan The patient, as part of her initial work-up, had a CTA chest performed. No PE was identified. However, there was incidental note made of pleural-based densities in the lateral aspect of the right upper lobe. These findings appear to be chronic in nature and were present on her CT chest in March 2022. 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 She then received adjuvant radiation therapy. The findings noted on the CT chest are likely postoperative in nature and related to the prior radiation treatment. The patient is already active following with radiation oncology. They have been routinely performing serial CT scans. From my perspective, no additional inpatient work-up is indicated at this time. The patient can follow-up in the pulmonary medicine clinic as scheduled. 2. Non-ST segment elevation DE The patient underwent cardiac catheterization this morning with drug-eluting stent placement to the proximal D1. Currently, the patient is stable clinically, without any reported shortness of breath and is maintaining appropriate oxygen saturations on room air. Will defer additional medical management to cardiology. This note was generated with [employer] dictation software. It may contain incorrect words, spelling, and punctuation that were not noted in checking the note before signing. HPI Consult Data Date of Consult: 06/16/22 HPI Narrative Reason for Consultation: History of lung cancer, worsening dyspnea, CT imaging with increased pleu HPI Narrative: The patient is a 67-year-old female, with a history as outlined below, who presented to the emergency department on June 14 with complaints of chest pain. The patient has a known history of coronary artery disease status post multiple revascularization procedures, ischemic cardiomyopathy and mitral valve prolapse. Her medical history is also significant for right upper lobe adenocarcinoma, for which she underwent a VATS procedure with right upper lobe wedge resection in 2020. PFTs from October 2020 demonstrated a partially reversible moderate mixed ventilatory defect. The patient was just admitted to the hospital June 09 through with anemia and a non-ST segment elevation DE. The patient was transfused blood products. Her antiplatelet agents were held. She underwent endoscopic evaluation, which revealed 2 angioplastic bleeding lesions, which were treated. On presentation to the emergency department, the patient was noted to be afebrile and hemodynamically stable. Initial laboratory evaluation revealed no evidence of a leukocytosis. Chronic anemia was noted. Chemistry profile was notable for a sodium of 130 and creatinine of 1.05. Troponin was increased to 198 with a BNP of 1338. The patient's last surface echocardiogram from June 10, 2022 demonstrated stage II diastolic dysfunction with an ejection fraction of 60%. Right ventricular systolic pressure was estimated to be 57 mmHg. As part of her admission work-up, a CTA chest was obtained. No pulmonary embolism was identified. However, there is incidental note of pleural-based densities in the lateral aspect of the right upper lobe. [facility] Medical History (Updated 06/15/22 @ 11:45 by Nohemy Cantu) Atherosclerotic heart disease of [place] coronary artery with unstable angina pectoris Atherosclerotic heart disease of [place] coronary artery without angina pectoris Chest pain, unspecified Congestive heart failure COPD (chronic obstructive pulmonary disease) DDD (degenerative disc disease) Essential hypertension Lung cancer Melanoma Nonrheumatic mitral (valve) prolapse HOWARD (obstructive sleep apnea) Osteoarthritis Pericardial effusion Premature ventricular contraction Pulmonary nodules Tobacco abuse Worsening angina Home Medications omeprazole 20 mg capsule,delayed release 20 mg PO DAILY acid reflux 02/04/16 [History Last Taken 06/13/22] primidone 50 mg tablet 100 mg PO QHS seizures 30 days #30 tabs 08/17/18 [History Last Taken 06/13/22] albuterol sulfate 90 mcg/actuation aerosol inhaler 1 puff inhalation Q6H PRN PRN Sob &/Or Wheezing 07/28/20 [History Last Taken 06/14/22] ipratropium 0.5 mg-albuterol 3 mg (2.5 mg base)/3 mL nebulization soln 3 ml inhalation Q4H PRN shortness of breath or wheezing #180 mL 12/29/20 [Rx Last Taken 06/08/22] nitroglycerin 0.4 mg sublingual tablet 0.4 mg sublingual Q5M PRN Chest Pain #25 tabs 02/23/21 [Rx Last Taken 06/14/22] ondansetron HCl 4 mg tablet (Zofran) 4 mg PO Q8H PRN nausea and vomiting #20 tabs 04/08/21 [Rx Last Taken 06/13/22] hydroxyzine HCl 50 mg tablet 100 tab PO TID MOOD 06/09/22 [History Last Taken 06/13/22] prazosin 1 mg capsule 1 cap PO QHS BP 06/09/22 [History Last Taken 06/13/22] nebulizer and compressor #1 ea 06/11/22 [Rx Last Taken Unknown] budesonide 1 mg/2 mL suspension for nebulization 1 mg inhalation BID SOB 06/14/22 [History Last Taken Unknown] buspirone 15 mg tablet 15 mg PO TID anxiety 06/14/22 [History Last Taken 06/13/22] ferrous sulfate 325 mg (65 mg iron) tablet,delayed release 325 mg PO BID supplement 06/14/22 [History Last Taken Unknown] furosemide 20 mg tablet 20 mg PO DAILY edema 06/14/22 [History Last Taken 06/13/22] metoprolol succinate 25 mg tablet,extended release 24 hr 12.5 mg PO DAILY bp 06/14/22 [History Last Taken 06/13/22] potassium chloride 20 mEq tablet,extended release(part/cryst) (Klor-Con M) 40 meq PO DAILYCM supplement 06/14/22 [History Last Taken 06/13/22] sertraline 100 mg tablet 150 mg PO DAILY mood 06/14/22 [History Last Taken 06/13/22] Allergy/AdvReac Type Severity Reaction Status Date / Time Iodinated Contrast Media Allergy Hives Verified 06/14/22 13:35 [Iodinated Contrast Media - IV Dye] tetracycline [Tetracycline] Allergy Hives Verified 06/14/22 13:35 pravastatin AdvReac Intermediate Upset Verified 06/14/22 13:35 Stomach atorvastatin [From Lipitor] AdvReac myalgia Verified 06/14/22 13:35 Family History Father Hypertension Colon cancer Mother Cancer LUNG CANCER/ SMOKER Father , MELANOMA No problems noted. Surgical History (Updated 06/15/22 @ 11:42 by Nohemy Cantu) Aortocoronary bypass status (~05/12/04) History of abdominal surgery History of bowel resection History of cataract surgery History of cholecystectomy History of total hysterectomy Hx of appendectomy interstim placement (~08/05/20) Postsurgical percutaneous transluminal coronary angioplasty (PTCA) status (~03/12/18) Presence of coronary angioplasty implant and graft (~03/12/18) Presence of stent in coronary artery (~06/15/22) S/P partial lobectomy of lung Social History adopted: No household members: spouse housing: house number of children: 1 current occupational status: retired current occupational exposures/hazards: No Smoking Status: Current every day smoker tobacco type: cigarettes Tobacco: How many years used: 50 how long ago did patient quit smokin01/28/21 alcohol intake: never substance use type: does not use caffeine: Yes Type: coffee Number of servings: 1 ROS Constitutional Constitutional: Denies chills, fever(s) or malaise Eyes Eyes: Denies blurry vision or change in vision ENT HEENT: Denies dizziness, dysphagia or headache(s) Cardiovascular Cardiovascular: Reports chest pain Respiratory/Chest Respiratory/Chest: Denies cough or dyspnea Gastrointestinal Gastrointestinal: Denies abdominal pain, diarrhea, nausea or vomiting Genitourinary Genitourinary: Denies difficulty urinating Musculoskeletal Musculoskeletal: Denies arthralgias, back pain or joint pain Integumentary Integumentary: Denies lesions, rash or skin ulcer Neurologic Neurologic: Denies abnormal gait or abnormal speech Psychiatric Psychiatric: Denies anxiety Endocrine Endocrinology: Denies fatigue Hematologic/Lymphatic Hematologic/Lymphatic: Denies easy bleeding or easy bruising Physical Exam Const alert and no apparent distress General Appearance: cooperative HEENT normocephalic, head/scalp atraumatic and moist oral mucous membranes Eyes PERRL, EOMs intact bilaterally and conjunctivae normal Neck supple General: trachea midline Chest inspection of chest normal Resp normal respiratory effort Auscultation: diminished lung sounds Cardio regular rate and regular rhythm GI normal to inspection, nondistended, normoactive bowel sounds Extremity no clubbing, cyanosis or edema Skin no rashes or lesions noted Neuro CN's II-XII intact bilaterally, moves all extremities and no focal motor deficits Psych Mood & Affect: flat affect Lab / Micro Data Result Diagrams: 06/16/22 05:24 06/16/22 05:24 Labs: Laboratory Results - last 24 hr 06/14/22 10:02: Magnesium 2.0, Troponin I High Sens 198 H* 06/14/22 13:38: WBC 5.1, RBC 4.28, Hgb 10.6 L, Hct 34.7 L, MCV 81.1, MCH 24.8 L, MCHC 30.5 L, RDW Std Deviation 61.1 H, RDW Coeff of Kit 21.2 H, Plt Count 170, MPV 10.9, Immature Gran % (Auto) 0.600, Neut % (Auto) 68.3, Lymph % (Auto) 18.8 L, [place] % (Auto) 9.2, Eos % (Auto) 2.3, Baso % (Auto) 0.8, Absolute Neuts (auto) 3.5, Absolute Lymphs (auto) 0.96, Nucleated RBC % 0, Platelet Estimate ADEQUATE, Anisocytosis 1+ 06/14/22 13:38: Sodium 130 L, Potassium 4.5, Chloride 100, Carbon Dioxide 23.0, Anion Gap 7, BUN 15, Creatinine 1.05 H, Estim Creat Clear Calc 44.19, Est GFR (MDRD) Af Amer 68, Est GFR (MDRD) Non-Af 56 L, BUN/Creatinine Ratio 14.3, Glucose 94, Calcium 9.3, Troponin I High Sens 204 H* 06/14/22 13:38: B-Natriuretic Peptide 1338.2 H 06/14/22 18:10: Troponin I High Sens 222 H* 06/15/22 06:45: WBC 3.5 L, RBC 3.95 L, Hgb 10.0 L, Hct 31.3 L, MCV 79.2 L, MCH 25.3 L, MCHC 31.9 L, RDW Std Deviation 60.2 H, RDW Coeff of Kit 21.0 H, Plt Count 161, MPV 10.0, Immature Gran % (Auto) 0.900, Neut % (Auto) 84.6 H, Lymph % (Auto) 11.4 L, [place] % (Auto) 2.8, Eos % (Auto) 0.0, Baso % (Auto) 0.3, Absolute Neuts (auto) 3.0, Absolute Lymphs (auto) 0.40 L, Nucleated RBC % 0, Diff Path Review May foll, Platelet Estimate ADEQUATE, Hypochromasia RARE, Anisocytosis 1+ 08/09/22 06:45: Sodium 131 L, Potassium 4.6, Chloride 101, Carbon Dioxide 23.0, Anion Gap 7, BUN 15, Creatinine 0.99, Estim Creat Clear Calc 46.86, Est GFR (MDRD) Af Amer 72, Est GFR (MDRD) Non-Af 60, BUN/Creatinine Ratio 15.2, Glucose 136 H, Calcium 9.0, Total Bilirubin 0.60, AST 15, ALT 19, Alkaline Phosphatase 58, Troponin I High Sens 122 H*, Total Protein 6.7, Albumin 3.1 L, Globulin 3.6, Albumin/Globulin Ratio 0.9, Triglycerides 54, Cholesterol 104, LDL Cholesterol 48, VLDL Cholesterol 11, HDL Cholesterol 45 Rhythm Strip Rhythm Strip: Sinus Rhythm Rate: 79 Ectopy: None Radiology Impression Chest X-Ray 06/14/22 14:16 IMPRESSION: No acute findings in the chest and no significant interval change when compared to 06/09/2022. Electronically Signed: Helio Woodall MD at 14:35 EDT , Chest CTA 06/14/22 14:54 IMPRESSION: 1. No CTA evidence of pulmonary thromboemboli, thoracic aortic aneurysm or dissection. 2. Mild increased thickening of the pleural based densities in the lateral aspect of the right upper lobe when compared to 03/11/2022. The lower pleural-based density is much thicker. Etiology is unknown but this is feasible for CT guided biopsy. 3. Mosaic perfusion rather than groundglass opacities in both lungs are new findings. This is most likely secondary to airway disease. Electronically Signed: Helio Woodall MD at 15:59 EDT , Charges/Coding Visit Charges Inpatient E&M: 48405 Init Hosp L3
--- NOTE | 2022-06-15 10:00 | EKG12_ITS ---
Test Reason : AM EKG Blood Pressure : / mmHG Vent. Rate : 075 BPM Atrial Rate : 075 BPM P-R Int : 178 ms QRS Dur : 100 ms QT Int : 458 ms P-R-T Axes : 025 052 -07 degrees QTc Int : 511 ms Normal sinus rhythm Normal ECG No previous ECGs available Confirmed by CHAPITO CHOI, NAHOMI ([id number]), copy editor VERÓNICA THAPA ([id number]) on 06/18/2022 2:33:17 PM Referred By: Confirmed By:DARSHAN URIARTE MD
--- NOTE | 2022-06-15 10:00 | CASEMGMT ---
[facility], the following in-network tertiary facilities: [facility], [facility], [facility], [facility], [facility], [facility], [facility], [facility], and . [facility] MOREL CM
--- NOTE | 2022-06-15 10:02 | NURSING ---
Patient returned to room at approximately 0955 per Alvaro in the cathode maker. Bedside report given to this RN, right groin check completed.
--- NOTE | 2022-06-15 10:21 | CL.I_ITS ---
Patient Name: TEODORO ALMEIDA Study Date: 06/15/2022 Performing: Stevie Worthy MD Ht: 62.99 inches 160 cm : 1955 Wt: 163.14 lbs 74 kg Age: 67 Gender: female BSA: 1.77 PROCEDURE(S) PERFORMED IC12-(60829/[id number])ADOLPH W/WO PTCA, SINGLE CORONARY ARTERY CLINICAL PROFILE AND CO-MORBIDITIES Indications: ACS > 24 hrs, Worsening Angina, Suspected CAD Heart Failure: None Stress/Imaging Stress/Image Study Performed: No Angina Classification Anginal Classification w/in 2 Weeks: CCS IV CAD Presentations: Non-STEMI. CONCLUSIONS Successful PCI with ADOLPH to the proximal D1 RECOMMENDATIONS DESCRIPTION OF PROCEDURE The patient arrived to the procedure lab. The risks and benefits of the procedure as well as a full d escription of our services here and current unavailability of surgical backup were fully explained to the patient and/or their significant other prior to the catheterization. The Timeout was completed, verifying the correct patient and procedure. The patient's procedural site was prepped and draped in the usual fashion. Local anesthetic was given subcutaneously to right groin region with Lidocaine 2% Using a modified Seldinger technique,arterial access was obtained via the right femoral artery, with Micropuncture set, arterial access was obtained via the right femoral artery, a 4Fr sheath was insert ed Left Coronary Artery selective angiography was performed in multiple views using a [address] Right Coronary Artery selective angiography was then performed in multiple views using a 4 Fr. J R4 catheter. Saphenous Vein graft to the Ramus selective angiography was performed in multiple views using a 4 Fr. JR4 catheter. Saphenous Vein graft to the RCA selective angiography was performed in multiple views using a 4 Fr. JR4 catheter. Left internal mammary artery graft to the LAD selective angiography was performed in multiple views using a 4 Fr. JR4 catheter. LV to AO pullback pressures were then recorded.The images were reviewed and options discussed. A decision was then made to proceed with an Intervention, IVUS or other adjunct procedure. Arterial sheath was exchanged for a 6 Fr Sheath. XB 3.0 Guide catheter was inserted and engaged i nto the LCA. BMW Guide wire was advanced to the 1st Diagonal. Emerge 2.25x12 Balloon catheter was ins erted. PTCA balloon inflated at 14 atms for 31 secs. Angiogram performed post balloon dilatation. Ors iro 2.5x13 Drug Eluting stent was inserted. Angiogram performed post stent deployment. Contrast was i njected through the sheath and the Right Iliac and Femoral artery were assessed for possible closure device. The arterial sheath was pulled and a Perclose closure device was deployed for hemostasis INTERVENTION INFORMATION LESION SITE: 1st Diagonal (Proximal) Lesion Complexity: High/C, chronic total occlusion: No, lesion at bifurcation: No, thrombus present: No, lesion length: 11 mm, culprit lesion: Yes, Previously treated lesion: No Pre Stenosis: 80 % Pre intervention LIZETH flow: 3 PROCEDURE: Drug Eluting Stent with pre dilatation. Post Stenosis: 0 % Post intervention LIZETH flow: 3 Lesion Devices: Henriquez .014 BMW [place] Straight 190cm Cardinal 6 Fr XB3.0 100cm Guide Catheter Rishi Sci EMERGE MR 2.25x12 BALLOON Biotronik Orsiro [place] MR ADOLPH 2.5x13 COMPLICATIONS No Complications PROCEDURE MEDICATIONS Versed 1 mg IV Versed 1 mg IV Fentanyl 50 mcg IV Oxygen: 2 L/min via nasal cannula Heparin 6000 unit(s) IV 06/15/2022 09:16:09 Plavix 300 mg PO 06/15/2022 09:37:45 SUMMARY OF HEMODYNAMIC DATA Time AIR REST ECG 08:01:24 Art 150/78 (106) 08:23:24 AO 140/83 (108) SA 08:28:52 LV 141/1, 29 08:39:51 LV 139/-4, 21 08:39:57 LVp 137/-5, 20 08:40:02 AOp 148/71 (101) 08:40:07 Signed By Stevie Worthy MD On 06/15/2022 10:20:43 Stevie Worthy MD
[2022-06-15] MEDS: Potassium Chloride Oral Tablet 20 MEQ 40 MEQ PO (11:57)
[2022-06-15] MEDS: Ferrous Sulfate 325 MG Tablet PO ×2 (11:57→16:41)
[2022-06-15] MEDS: predniSONE 20 MG Tablet 60 MG PO (11:58)
[2022-06-15] MEDS: Sertraline 100 MG Tablet 150 MG PO (11:58)
[2022-06-15] MEDS: Pantoprazole Sodium 20 MG Tablet PO (11:58)
[2022-06-15] MEDS: Furosemide 20 MG Tablet PO (11:58)
[2022-06-15 13:05] LABS: Pathologist Review Reviewed
--- NOTE | 2022-06-15 13:20 | CRPHASE1_ITS ---
Patient Communication Former Patient:: Phase II PHII Cardiac Rehab Discussed with Patient:: Yes Guide to Cardiac Rehab Given to Patient:: Yes Cardiac Rehab Facility Choice List Given to Patient:: Yes Choice Program [facility] CR PHII:: Communication Given to CR Financial Accounting Analyst:: Stephon Castro Phase II Cardiac Rehab:: Yes Sessions:: 36 sessions - 3 days/wk, 12 weeks Cardiac Rehabilitation Info Cardiac Rehabilitation Program Information: Cardiac Rehabilitation is important for patients like you who are recovering from a heart problem. Cardiac rehabilitation programs are recognized as integral to the continued care of the patient with coronary heart disease. The cardiac rehabilitation program is designed to optimize a patient's physical, psychological, and social functioning. Health career development engineer work in cardiac rehabilitation programs and assist you with getting the treatments you need to get stronger and healthier - like exercise, healthy eating habits, and medications. Cardiac rehabilitation has been show to help people with heart problems live longer and have better life enjoyment than people who do not go to cardiac rehabilitation. Please contact the Cardiac Rehabilitation Program at [facility] at in two weeks if you have not heard from them.
--- NOTE | 2022-06-15 13:21 | CRPH1.INSTRU ---
General Education CAD and cardiac anatomy and function:: Patient communicates acknowledgment, Needs reinforcement Explanation of diagnoses and procedures:: Patient communicates acknowledgment, Needs reinforcement Sign/Symptoms of [place]:: Patient communicates acknowledgment, Needs reinforcement Antiplatelet therapy: Patient communicates acknowledgment, Needs reinforcement Proper use of NTG-SL: Patient communicates acknowledgment, Needs reinforcement Emergency procedures and activation of EMS: Patient communicates acknowledgment, Needs reinforcement Compliance of all prescribed medications: Patient communicates acknowledgment, Needs reinforcement Smoking Patient Nicotine/Smoking Risk Factors Are:: Cigarettes Recommendations Include:: Previous smoker; encourage continued cessation Nicotine/Smoking Response Code:: Patient communicates acknowledgment, Needs reinforcement Dyslipidemia Patient Dyslipidemia Risk Factors Are:: Total Cholesterol, Triglycerides, HDL, LDL Recommendations Include:: Lipid profile not available Dyslipidemia Response Code:: Patient communicates acknowledgment, Needs reinforcement Overweight/Obesity Patient Overweight/Obesity Risk Factors Are:: Overweight = 26-29 Recommendations Include:: Weight loss of 5-10%, Reduced calorie diet, Exercise 5-7 times/week Overweight/Obesity:: Patient communicates acknowledgment, Needs reinforcement Hypertension Patient Hypertension Risk Factors Are:: No documented hx of HTN Heart Disease Patient Heart Disease Risk Factors Are:: Previous cardiac event Recommendations Include:: Educated family members of their risk Heart Disease Response Code:: Patient communicates acknowledgment, Needs reinforcement Sedentary Patient Sedentary Risk Factors Are:: Lack of regular exercise Recommendations Include:: Aerobic exercise 5-7 times/week for 20-30 minutes continuously, Benefits of regular exercise, Discussed home walking program, Monitored Outpatient Cardiac Rehab Sedentary Response Code:: Patient communicates acknowledgment, Needs reinforcement
[2022-06-15] MEDS: amLODIPine 2.5 MG Tablet PO (14:08)
--- NOTE | 2022-06-15 15:00 | CASEMGMT ---
Readmission chart review: 06/09-06/11/22 Acute anemia, NSTEMI 06/14/22-current Angina, NSTEMI Pt initially admitted with anemia/SOB with Hgb 7.2 and trops [id number]. Pt had upper and lower scopes with Dr. Beasley and cardio c/s. Cardiology held off on cath d/t anemia and did med management only. Pt was sent home with nebulizer. Pt returned to [facility] ED on 06/14/22 with CP and trops elev again but not as high as first time. Pt taken for heart cath and had intervention. Pt is on room air. CM to follow for anti-coag and any further discharge planning/needs. SStforeign RN CM
--- NOTE | 2022-06-15 17:21 | PN.CARD_ITS ---
Subjective Subjective The patient underwent cardiovascular evaluation earlier this day. This included her diagnostic cardiac catheterization and subsequent PCI procedure. Following those procedures she had no new acute cardiovascular complaint. Objective Data Vital Signs: Vital Signs Temp Pulse Resp BP Pulse Ox O2 Del Method 97.1 F L 76 18 141/102 H 96 Room Air 06/15/22 14:00 06/15/22 14:00 06/15/22 14:00 06/15/22 14:00 06/15/22 14:00 06/15/22 14:00 Oxygen Delivery Method Room Air Weight: 163 lb 2.273 oz Body Mass Index (BMI) 28.9 Lab / Micro Data Result Diagrams: 06/15/22 06:45 06/15/22 06:45 Labs: Laboratory Results - last 24 hr 06/14/22 18:10: Troponin I High Sens 222 H* 06/15/22 06:45: WBC 3.5 L, RBC 3.95 L, Hgb 10.0 L, Hct 31.3 L, MCV 79.2 L, MCH 25.3 L, MCHC 31.9 L, RDW Std Deviation 60.2 H, RDW Coeff of Kit 21.0 H, Plt Count 161, MPV 10.0, Immature Gran % (Auto) 0.900, Neut % (Auto) 84.6 H, Lymph % (Auto) 11.4 L, Bracken % (Auto) 2.8, Eos % (Auto) 0.0, Baso % (Auto) 0.3, Absolute Neuts (auto) 3.0, Absolute Lymphs (auto) 0.40 L, Nucleated RBC % 0, Diff Path Review Reviewed, Platelet Estimate ADEQUATE, Hypochromasia RARE, Anisocytosis 1+ 06/15/22 06:45: Sodium 131 L, Potassium 4.6, Chloride 101, Carbon Dioxide 23.0, Anion Gap 7, BUN 15, Creatinine 0.99, Estim Creat Clear Calc 46.86, Est GFR (MDRD) Af Amer 72, Est GFR (MDRD) Non-Af 60, BUN/Creatinine Ratio 15.2, Glucose 136 H, Calcium 9.0, Total Bilirubin 0.60, AST 15, ALT 19, Alkaline Phosphatase 58, Troponin I High Sens 122 H*, Total Protein 6.7, Albumin 3.1 L, Globulin 3.6, Albumin/Globulin Ratio 0.9, Triglycerides 54, Cholesterol 104, LDL Cholesterol 48, VLDL Cholesterol 11, HDL Cholesterol 45 Rhythm Strip Rhythm Strip: Sinus Rhythm Rate: 79 Ectopy: None Cardiology Labs/Tests 06/15/22 06:45: WBC 3.5 L, RBC 3.95 L, Hgb 10.0 L, Hct 31.3 L, MCV 79.2 L, MCH 25.3 L, MCHC 31.9 L, Plt Count 161, MPV 10.0, Immature Gran % (Auto) 0.900, Neut % (Auto) 84.6 H, Lymph % (Auto) 11.4 L, Bracken % (Auto) 2.8, Eos % (Auto) 0.0, Baso % (Auto) 0.3, Absolute Neuts (auto) 3.0, Nucleated RBC % 0 06/15/22 06:45: Sodium 131 L, Potassium 4.6, Chloride 101, Carbon Dioxide 23.0, Anion Gap 7, BUN 15, Creatinine 0.99, Est GFR (MDRD) Af Amer 72, Est GFR (MDRD) Non-Af 60, BUN/Creatinine Ratio 15.2, Glucose 136 H, Calcium 9.0, Total Bilirubin 0.60, Triglycerides 54, Cholesterol 104, LDL Cholesterol 48, VLDL Cholesterol 11, HDL Cholesterol 45 Rhythm: EKG: ECHO: Stress Test: Cardiac Cath: PCI: CT Surgery: Holter monitor: EPS: PPM: CXR: Chest CT Scan: Physical Exam Const alert, oriented x3 and no apparent distress General Appearance: cooperative HEENT normocephalic, head/scalp atraumatic and hearing grossly normal bilaterally Eyes PERRL, EOMs intact bilaterally and conjunctivae normal Neck full ROM, supple and no JVD General: trachea midline Chest inspection of chest normal Resp normal respiratory effort Auscultation: diminished lung sounds Cardio regular rate, regular rhythm, S1 normal heart sound and S2 normal heart sound GI normal to inspection, nondistended, normoactive bowel sounds Extremity no pedal edema Skin no rashes or lesions noted Neuro moves all extremities and no focal motor deficits Psych mental status grossly normal Mood & Affect: flat affect Assessment & Plan Assessment/Plan (1) Worsening angina: PLAN: The patient presents with symptoms concerning for worsening angina pectoris. At the present time she is being monitored. She will continue medical therapy with adjustment of medications as deemed appropriate. She has already undergone recent noninvasive valuation as noted. She has subsequently undergone additional evaluation with diagnostic cardiac catheterization. This did lead to the diagnosis of progressive diagonal branch disease requiring PCI/stent. (2) Shortness of breath: PLAN: The patient has a history of shortness of breath/dyspnea. The etiology may be multifactorial. This could include her underlying cardiopulmonary disease etiologies Again she has undergone further evaluation with diagnostic cardiac catheterization. She did receive a diagonal branch PCI/stent. She has already been evaluated with a chest x-ray and chest CTA. There is no great vessel disease. However, there are concerns about underlying pulmonary disease. She is being evaluated by Dr. Garcia of pulmonology. (3) CAD (coronary artery disease): PLAN: She does have a history of extensive [place] vessel CAD. At the moment she will continue medical therapy. (4) Presence of stent in coronary artery: PLAN: Her previous left main stent appeared to be patent during her cardiac catheterization performed earlier this day. She subsequently received diagonal branch PTCA/stent. (5) Aortocoronary bypass status: PLAN: Her last cardiac catheterization procedure demonstrated her grafts to be patent. Her previous grafts with respect to her GREEN to the LAD, SVG to OM 3, and SVG to RCA remain patent. She will continue medical therapy. (6) Non-ST elevation (NSTEMI) myocardial infarction: PLAN: She was diagnosed with a recent non-ST segment elevation [place] thought to be a type II event secondary to her marked anemia secondary to her gastrointestinal bleeding process. Her troponin I levels continue to decrease. She has no new acute ECG changes. Based upon her continued symptomatic concerns she has undergone further evaluation as noted. She has been found to have progression of diagonal branch disease. She did receive diagonal branch PCI/stent. (7) MVP (mitral valve prolapse): PLAN: She has a history of MVP. She recently underwent reassessment of her mitral valve anatomy and physiology. This was done with a transthoracic echocardiogram. (8) Pure hypercholesterolemia: PLAN: She has a history of hyperlipidemia. She should continue medical therapy as best as possible. (9) Essential hypertension: PLAN: She does have a history of hypertension. She will continue medical therapy. (10) Primary lung adenocarcinoma: QUALIFIERS: Laterality: right Qualified Code(s): C34.91 - Malignant neoplasm of unspecified part of right bronchus or lung PLAN: She has history of lung carcinoma has undergone previous radiation therapy and right lateral thoracotomy/surgical resection. There are some concerns based on her chest CTA as to whether or not the findings are related to her previous radiation therapy and surgery versus whether she has any recurrence of her underlying lung carcinoma. She will continue evaluation care per pulmonology. (11) Anemia: PLAN: Her hemoglobin appears to be stable at this time. She will need to be monitored for any significant decline as she restarts her medical therapy with respect to her antiplatelet agents. (12) GI bleed: PLAN: Her anemia was thought to be due to a lower GI bleeding process. She underwent evaluation care per Dr. Beasley of gastroenterology for that issue. According to Dr. Moulton, from her conversation with Dr. Beasley, this appears to be stable at this time and the patient can restart her antiplatelet therapy. She will need to be monitored for any obvious recurrent bleeding related issues. Addt'l Comments The patient's case has been previously discussed and reviewed with the patient. This note was generated using a voice recognition system and there may be incorrect words, spelling or punctuation that were not noted when reviewing the office note prior to saving.
[2022-06-15] MEDS: Prazosin HCl 1 MG Capsule PO (20:29)
[2022-06-15] MEDS: 0.9% Saline Lock 10 ML Syringe IV (20:29)
[2022-06-15] MEDS: Furosemide 40 MG/4 ML Vial IV (20:29)
[2022-06-15] MEDS: Primidone 50 MG Tablet 100 MG PO (20:29)
[2022-06-15] MEDS: Albuterol 2.5 MG/3 ML VIAL.NEB. INHALATION (20:31)
[2022-06-15] MEDS: LORazepam 0.5 MG Tablet PO (20:36)
[2022-06-15] MEDS: MELATONIN 3 MG TABLET PO (20:36)
[2022-06-16 02:59] VITALS: PULSE 76
[2022-06-16 03:00] VITALS: BP 132/73; PULSE 74; RESP 16; TEMP 36.8; O2SAT 97
[2022-06-16 05:44] LABS: Hematocrit 33.9 % (37-47); Hemoglobin 10.4 g/dL (12.0-15.0); Mean Corp Hgb Conc 30.7 g/dL (32-36); Mean Corpuscular Hgb 24.9 pg (27.0-32.0); Mean Corpuscular Volume 81.1 fL (81-99); Mean Platelet Vol. 9.8 fl (6.2-12.0); POSITIVE MORPHOLOGY YES; Platelet Count 195 K/mm3 (150-450); RBC Distribution Width CV 21.6 % (11.6-14.6); RBC Distribution Width SD 63.3 fl (35.1-43.9); Red Blood Count 4.18 M/mm3 (4.2-5.4); White Blood Count 10.5 K/mm3 (4.4-11.0)
[2022-06-16] MEDS: busPIRone 15 MG TABLET PO (05:47)
[2022-06-16] MEDS: hydrOXYzine PAM 25 MG Capsule 100 MG PO (05:47)
[2022-06-16 05:50] LABS: Scan Indicated on CBC? Y/N YES- FLAGS NOTED
[2022-06-16 06:16] LABS: ALB/GLOB Ratio 0.9 RATIO (0.9-2.4); AST(SGOT) 13 U/L (15-37); Alanine Aminotransfer ALT/SGPT 19 U/L (13-56); Albumin, Serum 3.3 g/dL (3.2-5.0); Alkaline Phosphatase 61 U/L (45-117); Anion Gap 7 (5-15); BUN 18 mg/dL (7-18); BUN/Creat Ratio 15.4 RATIO (10-20); Calcium,Total 8.9 mg/dL (8.5-10.1); Chloride 99 mmol/L (98-107); Creatinine, Serum 1.17 mg/dL (0.55-1.02); EST Glomerular Filtration Rate 49 mL/min (>60); Est Glom Filt Rate - Afr Amer 60 mL/min (>60); Estimated Creatinine Clearance 39.65 ml/min; Globulin 3.8 g/dL (2.2-4.2); Glucose 121 mg/dL (74-106); Potassium 3.9 mmol/L (3.5-5.1); Protein, Total 7.1 g/dL (6.4-8.2); Sodium Level 133 mmol/L (136-145)
[2022-06-16 07:03] VITALS: PULSE 68
[2022-06-16 07:16] VITALS: O2SAT 98
[2022-06-16] MEDS: Potassium Chloride Oral Tablet 20 MEQ 40 MEQ PO (07:30)
[2022-06-16] MEDS: Aspirin 81 MG TAB.CHEW PO (07:30)
[2022-06-16] MEDS: Ferrous Sulfate 325 MG Tablet PO (07:30)
--- NOTE | 2022-06-16 08:03 | PN.HOSP_ITS ---
Subjective Subjective Patient did receive Lasix the day prior with some improvement in overall condition. Case discussed with Dr. Castro patient be assessed for possible discharge Objective Data Objective Data Vital Signs: Vital Signs Temp Pulse Resp BP Pulse Ox O2 Del Method 98.2 F 74 16 132/73 H 97 Room Air 06/16/22 03:00 06/16/22 03:00 06/16/22 03:00 06/16/22 03:00 06/16/22 03:00 06/16/22 07:26 Oxygen Delivery Method Room Air Weight: 72.235 kg Body Mass Index (BMI) 28.9 Intake & Output: Intake and Output for Last 24 Hours 06/14/22 06/15/22 06/16/22 23:59 23:59 23:59 Intake Total 120 / 120 Output Total 1000 / 1000 Balance -880 / -880 Lab / Micro Data Result Diagrams: 06/16/22 05:24 06/16/22 05:24 Labs: Laboratory Results - last 24 hr 06/15/22 06:45: Diff Path Review Reviewed 06/15/22 06:45: Sodium 131 L, Potassium 4.6, Chloride 101, Carbon Dioxide 23.0, Anion Gap 7, BUN 15, Creatinine 0.99, Estim Creat Clear Calc 46.86, Est GFR (MDRD) Af Amer 72, Est GFR (MDRD) Non-Af 60, BUN/Creatinine Ratio 15.2, Glucose 136 H, Calcium 9.0, Total Bilirubin 0.60, AST 15, ALT 19, Alkaline Phosphatase 58, Troponin I High Sens 122 H*, Total Protein 6.7, Albumin 3.1 L, Globulin 3.6, Albumin/Globulin Ratio 0.9, Triglycerides 54, Cholesterol 104, LDL Cholesterol 48, VLDL Cholesterol 11, HDL Cholesterol 45 06/16/22 05:24: WBC 10.5, RBC 4.18 L, Hgb 10.4 L, Hct 33.9 L, MCV 81.1, MCH 24.9 L, MCHC 30.7 L, RDW Std Deviation 63.3 H, RDW Coeff of Kit 21.6 H, Plt Count 195, MPV 9.8 06/16/22 05:24: Sodium 133 L, Potassium 3.9, Chloride 99, Carbon Dioxide 27.0, Anion Gap 7, BUN 18, Creatinine 1.17 H, Estim Creat Clear Calc 39.65, Est GFR (MDRD) Af Amer 60, Est GFR (MDRD) Non-Af 49 L, BUN/Creatinine Ratio 15.4, Glucose 121 H, Calcium 8.9, Total Bilirubin 0.40, AST 13 L, ALT 19, Alkaline Ph osphatase 61, Total Protein 7.1, Albumin 3.3, Globulin 3.8, Albumin/Globulin Ratio 0.9 Rhythm Strip Rhythm Strip: Sinus Rhythm Rate: 79 Ectopy: None Physical Exam Narrative GENERAL: cooperative HEENT: Atraumatic; EYES; Anicteric, Normal Conjunctiva NECK; supple, normal thyroid, RESPIRATORY: Diminished to auscultation CARDIOVASCULAR: Regular S1 S2, GI: soft, normoactive bowel sounds, : No Renal angle tenderness; EXTREMITIES: No edema, no clubbing, MUSCULOSKELETAL: no muscle wasting NEURO: Awake; no lateralizing signs. SKIN: No Rash PSYCH; Flat affect Assessment & Plan Assessment/Plan (1) Chest pain: PLAN: Plan Patient is a 67-year-old lady with multiple comorbidities including coronary artery disease with previous CABG and PCI who presented with chest pain. Found to have elevated troponin consistent with acute non-STEMI admitted to monitored bed with consultation placed to cardiology 1. Acute non-STEMI ? In the patient with significant cardiac comorbidities including previous CABG and PCI. Patient has been admitted to a monitored bed managed per protocol consultation placed to cardiology plans for patient to undergo diagnostic cardiac catheterization with intervention if warranted -08/26/2022 patient underwent left heart catheterization the day prior with PCI and stent placement to the diagonal lesion 2. Coronary artery disease ? With previous PCI and CABG 3. Hypertension - Blood pressure controlled, home medications continued with dose adjustment as needed 4. Dyslipidemia -Patient is on statin therapy, continued at home dose 5. History of lung CA ? Status post partial lobectomy which was followed by neoadjuvant radiation therapy 6. Chronic diastolic congestive heart failure ? Currently stable 7. COPD ? Currently not in exacerbation aerosol treatments as needed 8. Obstructive sleep apnea ? Apparently noncompliant with CPAP therapy 9. History of recent GI bleed ? 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
[2022-06-16 08:58] VITALS: BP 134/87; PULSE 76; RESP 18; TEMP 36.7; O2SAT 100
--- NOTE | 2022-06-16 09:01 | PCM.PN.CARD ---
Subjective Subjective The patient states she feels much better today with respect to her overall sense of wellbeing and especially her breathing especially with activity after receiving her IV diuretic yesterday and having increased urinary output. She has had no other new acute complaints. Objective Data Vital Signs: Vital Signs Temp Pulse Resp BP Pulse Ox O2 Del Method 98.1 F 76 18 134/87 H 100 Room Air 06/16/22 08:58 06/16/22 08:58 06/16/22 08:58 06/16/22 08:58 06/16/22 08:58 06/16/22 08:58 Oxygen Delivery Method Room Air Weight: 159 lb 4 oz Body Mass Index (BMI) 28.9 Intake & Output: Intake and Output for Last 24 Hours 06/14/22 06/15/22 06/16/22 23:59 23:59 23:59 Intake Total 120 / 120 Output Total 1000 / 1000 Balance -880 / -880 Lab / Micro Data Result Diagrams: 06/16/22 05:24 06/16/22 05:24 Labs: Laboratory Results - last 24 hr 06/15/22 06:45: Diff Path Review Reviewed 06/16/22 05:24: WBC 10.5, RBC 4.18 L, Hgb 10.4 L, Hct 33.9 L, MCV 81.1, MCH 24.9 L, MCHC 30.7 L, RDW Std Deviation 63.3 H, RDW Coeff of Kit 21.6 H, Plt Count 195, MPV 9.8 06/16/22 05:24: Sodium 133 L, Potassium 3.9, Chloride 99, Carbon Dioxide 27.0, Anion Gap 7, BUN 18, Creatinine 1.17 H, Estim Creat Clear Calc 39.65, Est GFR (MDRD) Af Amer 60, Est GFR (MDRD) Non-Af 49 L, BUN/Creatinine Ratio 15.4, Glucose 121 H, Calcium 8.9, Total Bilirubin 0.40, AST 13 L, ALT 19, Alkaline Phosphatase 61, Total Protein 7.1, Albumin 3.3, Globulin 3.8, Albumin/Globulin Ratio 0.9 Rhythm Strip Rhythm Strip: Sinus Rhythm Rate: 79 Ectopy: None Cardiology Labs/Tests 06/16/22 05:24: WBC 10.5, RBC 4.18 L, Hgb 10.4 L, Hct 33.9 L, MCV 81.1, MCH 24.9 L, MCHC 30.7 L, Plt Count 195, MPV 9.8 06/16/22 05:24: Sodium 133 L, Potassium 3.9, Chloride 99, Carbon Dioxide 27.0, Anion Gap 7, BUN 18, Creatinine 1.17 H, Est GFR (MDRD) Af Amer 60, Est GFR (MDRD) Non-Af 49 L, BUN/Creatinine Ratio 15.4, Glucose 121 H, Calcium 8.9, Total Bilirubin 0.40 Rhythm: Sinus rhythm EKG: Sinus rhythm; nonspecific T wave abnormality Physical Exam Const alert, oriented x3 and no apparent distress General Appearance: cooperative HEENT normocephalic, head/scalp atraumatic and hearing grossly normal bilaterally Eyes PERRL, EOMs intact bilaterally and conjunctivae normal Neck full ROM, supple and no JVD General: trachea midline Chest inspection of chest normal Resp normal respiratory effort and clear to auscultation bilaterally Cardio regular rate, regular rhythm, S1 normal heart sound and S2 normal heart sound GI normal to inspection, nondistended, normoactive bowel sounds Extremity no pedal edema Extremity Narrative: Right femoral artery: Pulses 2+/4+: No bruit: No hematoma Skin no rashes or lesions noted Neuro moves all extremities and no focal motor deficits Psych mental status grossly normal Mood & Affect: flat affect Assessment & Plan Assessment/Plan (1) Worsening angina: PLAN: The patient presents with symptoms concerning for worsening angina pectoris. At the present time she is being monitored. She will continue medical therapy with adjustment of medications as deemed appropriate. She has already undergone recent noninvasive valuation as noted. She has subsequently undergone additional evaluation with diagnostic cardiac catheterization. This did lead to the diagnosis of progressive diagonal branch disease requiring PCI/stent. (2) Shortness of breath: PLAN: The patient has a history of shortness of breath/dyspnea. The etiology may be multifactorial. This could include her underlying cardiopulmonary disease etiologies Again she has undergone further evaluation with diagnostic cardiac catheterization. She did receive a diagonal branch PCI/stent. She has already been evaluated with a chest x-ray and chest CTA. There is no great vessel disease. However, there are concerns about underlying pulmonary disease. She is being evaluated by Dr. Garcia of pulmonology. In the interim, based upon concerns of increased volume status, she did receive IV diuretic therapy. She has had significant clinical and examination improvement since that time. Thus her oral dose of diuretic therapy will be increased. (3) CAD (coronary artery disease): PLAN: She does have a history of extensive [place] vessel CAD. At the moment she will continue medical therapy. (4) Presence of stent in coronary artery: PLAN: Her previous left main stent appeared to be patent during her cardiac catheterization performed earlier this day. She subsequently received diagonal branch PTCA/stent. (5) Aortocoronary bypass status: PLAN: Her last cardiac catheterization procedure demonstrated her grafts to be patent. Her previous grafts with respect to her GREEN to the LAD, SVG to OM 3, and SVG to RCA remain patent. She will continue medical therapy. (6) Non-ST elevation (NSTEMI) myocardial infarction: PLAN: She was diagnosed with a recent non-ST segment elevation MT thought to be a type II event secondary to her marked anemia secondary to her gastrointestinal bleeding process. Her troponin I levels continue to decrease. She has no new acute ECG changes. Based upon her continued symptomatic concerns she has undergone further evaluation as noted. She has been found to have progression of diagonal branch disease. She did receive diagonal branch PCI/stent. (7) MVP (mitral valve prolapse): PLAN: She has a history of MVP. She recently underwent reassessment of her mitral valve anatomy and physiology. This was done with a transthoracic echocardiogram. (8) Pure hypercholesterolemia: PLAN: She has a history of hyperlipidemia. She should continue medical therapy as best as possible. (9) Essential hypertension: PLAN: She does have a history of hypertension. She will continue medical therapy. (10) Primary lung adenocarcinoma: QUALIFIERS: Laterality: right Qualified Code(s): C34.91 - Malignant neoplasm of unspecified part of right bronchus or lung PLAN: She has history of lung carcinoma has undergone previous radiation therapy and right lateral thoracotomy/surgical resection. There are some concerns based on her chest CTA as to whether or not the findings are related to her previous radiation therapy and surgery versus whether she has any recurrence of her underlying lung carcinoma. She will continue evaluation care per pulmonology. (11) Anemia: PLAN: Her hemoglobin appears to be stable at this time. She will need to be monitored for any significant decline as she restarts her medical therapy with respect to her antiplatelet agents. (12) GI bleed: PLAN: Her anemia was thought to be due to a lower GI bleeding process. She underwent evaluation care per Dr. Beasley of gastroenterology for that issue. According to Dr. Moulton, from her conversation with Dr. Beasley, this appears to be stable at this time and the patient can restart her antiplatelet therapy. She will need to be monitored for any obvious recurrent bleeding related issues. Addt'l Comments Overall, at the current time, she will continue combined medical management with adjustment based upon her clinical course, vital signs, examination, etc. She will need continued future outpatient cardiovascular follow-up and pulmonology follow-up as well as her general medical care/PCP follow-up. The above was discussed with her and she was agreeable to this approach
[2022-06-16 09:02] VITALS: BP 134/87; PULSE 76
[2022-06-16] MEDS: Clopidogrel Bisulfate 75 MG Tablet PO (09:02)
[2022-06-16] MEDS: Metoprolol(XL)Succ 25 MG Tablet 12.5 MG PO (09:02)
[2022-06-16] MEDS: Pantoprazole Sodium 20 MG Tablet PO (09:02)
[2022-06-16] MEDS: Sertraline 100 MG Tablet 150 MG PO (09:02)
[2022-06-16] MEDS: amLODIPine 2.5 MG Tablet PO (09:02)
--- NOTE | 2022-06-16 09:18 | PCM.DC.SUM ---
Providers Date of Admission: 06/15/22 Date of Discharge: 06/16/22 Primary Care Physician: Dr. Phani Odom MD Consultations 06/14/22 17:56 Consult: Cardiology Routine Consulting Provider: Stephon Castro Reason for Consult: Chest Pain EMERGENT Consult: No Notified: Yes Date Notified: 06/14/22 Time Notified: 15:56 Method of Notification: ED Physician Initiated Consult: Software Project Lead / Pulmonary Medicine Routine Consulting Provider: Rui Garcia Reason for Consult: Hx lung CA, worsened dyspnea, CTPA w/ increased pleural densities. EMERGENT Consult: No Notified: Yes Date Notified: 06/14/22 Time Notified: 16:18 Method of Notification: call Reason For Visit: CHEST PAIN Diagnosis Discharge Diagnosis (1) Chest pain: Status: Acute Code(s): R07.9 - Chest pain, unspecified Medications at Discharge Home Medications omeprazole 20 mg capsule,delayed release 20 mg PO DAILY acid reflux 02/04/16 primidone 50 mg tablet 100 mg PO QHS seizures 30 days #30 tabs 08/17/18 albuterol sulfate 90 mcg/actuation aerosol inhaler 1 puff inhalation Q6H PRN PRN Sob &/Or Wheezing 07/28/20 ipratropium 0.5 mg-albuterol 3 mg (2.5 mg base)/3 mL nebulization soln 3 ml inhalation Q4H PRN shortness of breath or wheezing #180 mL 12/29/20 nitroglycerin 0.4 mg sublingual tablet 0.4 mg sublingual Q5M PRN Chest Pain #25 tabs 02/23/21 ondansetron HCl 4 mg tablet (Zofran) 4 mg PO Q8H PRN nausea and vomiting #20 tabs 04/08/21 hydroxyzine HCl 50 mg tablet 100 tab PO TID MOOD 06/09/22 prazosin 1 mg capsule 1 cap PO QHS BP 06/09/22 nebulizer and compressor #1 ea 06/11/22 budesonide 1 mg/2 mL suspension for nebulization 1 mg inhalation BID SOB 06/14/22 buspirone 15 mg tablet 15 mg PO TID anxiety 06/14/22 ferrous sulfate 325 mg (65 mg iron) tablet,delayed release 325 mg PO BID supplement 06/14/22 metoprolol succinate 25 mg tablet,extended release 24 hr 12.5 mg PO DAILY bp 06/14/22 potassium chloride 20 mEq tablet,extended release(part/cryst) (Klor-Con M) 40 meq PO DAILYCM supplement 06/14/22 sertraline 100 mg tablet 150 mg PO DAILY mood 06/14/22 amlodipine 2.5 mg tablet 2.5 mg PO DAILY #90 tabs 06/16/22 aspirin 81 mg chewable tablet 81 mg PO BREAKFAST #90 tabs 06/16/22 clopidogrel 75 mg tablet 75 mg PO DAILY #90 tabs 06/16/22 furosemide 20 mg tablet 40 mg PO DAILY edema 60 days #60 tabs 06/16/22 Hospital Course Summary of Care Provided Minutes Spent on Discharge: 35 Hospital Course: Patient is a 67-year-old lady with multiple comorbidities including coronary artery disease with previous CABG and PCI who presented with chest pain. Found to have elevated troponin consistent with acute non-STEMI admitted to monitored bed with consultation placed to cardiology 1. Acute non-STEMI ? In the patient with significant cardiac comorbidities including previous CABG and PCI. Patient has been admitted to a monitored bed managed per protocol consultation placed to cardiology plans for patient to undergo diagnostic cardiac catheterization with intervention if warranted -08/26/2022 patient underwent left heart catheterization the day prior with PCI and stent placement to the diagonal lesion 2. Coronary artery disease ? With previous PCI and CABG 3. Hypertension - Blood pressure controlled, home medications continued with dose adjustment as needed 4. Dyslipidemia -Patient is on statin therapy, continued at home dose 5. History of lung CA ? Status post partial lobectomy which was followed by neoadjuvant radiation therapy 6. Chronic diastolic congestive heart failure ? Currently stable 7. COPD ? Currently not in exacerbation aerosol treatments as needed 8. Obstructive sleep apnea ? Apparently noncompliant with CPAP therapy 9. History of recent GI bleed ? Patient was on admission and did require blood transfusion underwent EGD and colonoscopy was noted to have angiodysplastic lesions in the colon which was cauterized Weight / BMI Weight Weight: 72.235 kg Body Mass Index (BMI) 28.9 ABG / Lab / Microbiology Data Result Diagrams: 06/16/22 05:24 06/16/22 05:24 Laboratory: Laboratory Results - last 24 hr 06/15/22 06:45: Diff Path Review Reviewed 06/16/22 05:24: WBC 10.5, RBC 4.18 L, Hgb 10.4 L, Hct 33.9 L, MCV 81.1, MCH 24.9 L, MCHC 30.7 L, RDW Std Deviation 63.3 H, RDW Coeff of Kit 21.6 H, Plt Count 195, MPV 9.8 06/16/22 05:24: Sodium 133 L, Potassium 3.9, Chloride 99, Carbon Dioxide 27.0, Anion Gap 7, BUN 18, Creatinine 1.17 H, Estim Creat Clear Calc 39.65, Est GFR (MDRD) Af Amer 60, Est GFR (MDRD) Non-Af 49 L, BUN/Creatinine Ratio 15.4, Glucose 121 H, Calcium 8.9, Total Bilirubin 0.40, AST 13 L, ALT 19, Alkaline Phosphatase 61, Total Protein 7.1, Albumin 3.3, Globulin 3.8, Albumin/Globulin Ratio 0.9 D/C Instructions Discharge Diet: No restrictions Discharge Activity: Return to Normal Activity Call your doctor if you observe: Fever of 101 or Higher, Shortness of breath, Fainting spells and Chest pain Meaningful Use Info Meaningful Use Diagnoses (Choose all that apply): AMI AMI/Post PCI/Angioplasty Aspirin given w/in 24hrs of arrival?: Yes ASA at discharge?: Yes Antiplatelet Therapy at Discharge:: Yes Statins at discharge?: Yes Nate/ARB at discharge?: No Reason Nate/ARB not ordered:: Not indicated Beta Ministerio at discharge?: Yes Done w/ Acute NC measure.: Yes Documented LVEF (%): 60 Discharge Plan Admission Admit Date/Time: 06/15/22 10:35 Attending Provider: Philipp Akins Primary Care Provider: Phani Odom Consulting Providers: Stephon Castro ; Rui Garcia ; Veronique Moulton Discharge Orders/Prescriptions Prescriptions: New amlodipine 2.5 mg Tablet 2.5 mg PO DAILY Qty: 90 0RF clopidogrel 75 mg Tablet 75 mg PO DAILY Qty: 90 3RF aspirin 81 mg Tablet,Chewable 81 mg PO BREAKFAST Qty: 90 0RF Continued primidone 50 mg tablet 100 mg PO QHS 30 Days Qty: 30 nitroglycerin 0.4 mg tablet, sublingual 0.4 mg SUBLINGUAL Q5M PRN (Reason: Chest Pain) Qty: 25 3RF Label Comments: chest pain Rx Instructions: Place one tab under tongue every 5 minutes x 3 doses as needed ondansetron HCl [Zofran] 4 mg tablet 4 mg PO Q8H PRN (Reason: nausea and vomiting) Qty: 20 1RF Rx Instructions: take 1 tab PO q 8hrs prn nausea omeprazole 20 MG capsule 20 mg PO DAILY Label Comments: heart burn albuterol sulfate 1 PUFF inhaler 1 puff INHALATION Q6H PRN PRN (Reason: Sob &/Or Wheezing) prazosin 1 mg capsule 1 cap PO QHS hydroxyzine HCl 50 mg tablet 100 tab PO TID (DME) nebulizer and compressor Device See Rx Instructions .Route Qty: 1 0RF Rx Instructions: As directed sertraline 100 mg tablet 150 mg PO DAILY potassium chloride [Klor-Con M20] 20 mEq tablet,ER particles/crystals 40 meq PO DAILYCM metoprolol succinate 25 mg tablet extended release 24 hr 12.5 mg PO DAILY ferrous sulfate 325 mg (65 mg iron) tablet,delayed release (DR/EC) 325 mg PO BID buspirone 15 mg tablet 15 mg PO TID budesonide 1 mg/2 mL suspension for nebulization 1 mg INHALATION BID ipratropium-albuterol 0.5 mg-3 mg(2.5 mg base)/3 mL solution for nebulization 3 ml INHALATION Q4H PRN (Reason: shortness of breath or wheezing) Qty: 180 3RF Changed furosemide 20 mg tablet 40 mg PO DAILY 60 Days Qty: 60 0RF Referrals / Follow Up: Phani Odom MD [Primary Care Provider] - In 1 Week Stephon Castro MD [Med Staff - Active Staff] - Within 1 Month Disposition Disposition (needs filled in before D/C Order can be placed): Home, Self Care Charges/Coding Visit Charges Inpatient E&M: 21715 Disch Hosp
--- NOTE | 2022-06-16 09:50 | CASEMGMT ---
This RN CM to room to discuss discharge plan. Pt states only concerns at home is getting house cleaned up as her is in w/c and she has not felt well for weeks. Pt provided resources for private duty and [facility], voices gratitude. Pt states would like to use [facility] van transport home and [facility] psychiatric secretary, aware. Pt voices no further questions/concerns/needs. SStaten MARIA TERESA OGLESBY
--- NOTE | 2022-06-16 10:00 | EKG12_ITS ---
Test Reason : CP ADMIT Blood Pressure : / mmHG Vent. Rate : 080 BPM Atrial Rate : 080 BPM P-R Int : 170 ms QRS Dur : 094 ms QT Int : 406 ms P-R-T Axes : 011 021 -10 degrees QTc Int : 468 ms Normal sinus rhythm Normal ECG When compared with ECG of 14-JUN-2022 13:29, MANUAL COMPARISON REQUIRED, DATA IS UNCONFIRMED Confirmed by CHAPITO CHOI, NAHOMI ([id number]), slot editor VERÓNICA THAPA ([id number]) on 06/18/2022 2:33:39 PM Referred By: Confirmed By:DARSHAN URIARTE MD
[2022-06-16] MEDS: Furosemide 40 MG Tablet PO (10:13)
== END 2022-06-16 10:16 | disposition home or self-care (01) | DRG 247 ==
LOC: ED 16:22 → PCU 16:48
PROVIDERS: Specialist; Admitting Provider Family Medicine; Emergency Provider Emergency Medicine; PCP Family Medicine; Visit Provider Internal Medicine
DX: I22.2 Subsequent non-ST elevation (NSTEMI) myocardial infarction (principal); I50.32 Chronic diastolic (congestive) heart failure; I27.20 Pulmonary hypertension, unspecified; I11.0 Hypertensive heart disease with heart failure; J44.9 Chronic obstructive pulmonary disease, unspecified; I21.A1 Myocardial infarction type 2; F17.210 Nicotine dependence, cigarettes, uncomplicated; E78.00 Pure hypercholesterolemia, unspecified; F41.8 Other specified anxiety disorders; I25.10 Atherosclerotic heart disease of native coronary artery without angina pectoris; G47.33 Obstructive sleep apnea (adult) (pediatric); I25.5 Ischemic cardiomyopathy; I25.2 Old myocardial infarction; Z92.3 Personal history of irradiation; Z79.02 Long term (current) use of antithrombotics/antiplatelets; Z79.82 Long term (current) use of aspirin; Z79.899 Other long term (current) drug therapy; Z85.118 Personal history of other malignant neoplasm of bronchus and lung
CPT/HCPCS: 36415; 71045; 71275; 80048; 80053; 80061; 83735; 83880; 84484; 85025; 85027; 92928; 93005; 93455; 94640; 99152; 99153; 99285; C1874; J7040; Q9967; A4216; C1725; C1760; C1769; C1887; C9600; J1940

== ENCOUNTER → 2022-07-28 | Outpatient (CLI) | payer MEDICARE, SELFPAY ==
[2021-10-20 08:51] VITALS: BMI 26.6
--- NOTE | 2022-07-28 12:52 | CT_ITS ---
STUDY: CT CHEST WITHOUT CONTRAST REASON FOR EXAM: Female, 67 years old patient treated lung cancer with surgery and XRT. Please compare to prior. RADIATION DOSAGE (If Supplied By Facility): CTDIvol = ( 8.06 ) mGy, DLP = ( 260.30 ) mGycm TECHNIQUE: Transaxial imaging was performed without IV contrast administration. Multiplanar coronal and sagittal images were reformatted. Individualized dose optimization techniques were used for this CT. COMPARISON: CT of the chest dated 06/14/2022. FINDINGS: The patient has had a sternotomy. The lungs are expanded. There is multifocal pleural thickening adjacent to the right lateral chest wall. This may be treatment related and appears similar to previous study. There is also some parenchymal fibrosis in this area. There is a calcified nodule in the right upper lobe that may also be treatment-related. Lungs otherwise appear to be clear. Normal heart and pericardium. There are calcifications of the coronary arteries. Coronary artery calcification is seen. Normal mediastinum. Normal hilar regions. Normal enhanced and unenhanced pulmonary arteries. There is atherosclerotic calcification of the aortic arch with tortuosity and elongation of the aortic arch and descending thoracic aorta. The patient is status post sternotomy. Patient has had previous cervical spine surgery. The bones appear osteopenic. There is increased thoracic kyphosis. There is no obvious acute compression or displaced fracture. There is no demonstrated abnormality of the visualized upper abdomen. CT/Chest without Contrast IMPRESSION: Essentially unchanged appearance of the chest since previous study without obvious metastatic disease. Electronically Signed: Rossy Goetz MD at 1:50 EDT ,
== END | disposition home or self-care (01) ==
LOC: CT 12:51
PROVIDERS: PCP Family Medicine; Referring Provider Student in an Organized Health Care Education/Training Program; Visit Provider Student in an Organized Health Care Education/Training Program
DX: C34.90 Malignant neoplasm of unspecified part of unspecified bronchus or lung (principal)
CPT/HCPCS: 71250

== ENCOUNTER → 2022-08-10 | Outpatient (CLI) | payer MEDICARE, SELFPAY ==
[2021-10-20 08:51] VITALS: BMI 26.6
--- NOTE | 2022-08-11 10:16 | PFT ---
INTRODUCTION: The patient is a 67-year-old female that presents for pulmonary function studies secondary to a diagnosis of shortness of breath. Respiratory therapy reported good patient effort. Bronchodilators were used during testing. INTERPRETATION: Forced expiration spirometry demonstrates no evidence of a large airways obstructive ventilatory defect. There was no significant response to aerosolized bronchodilators. Spirograms are of good quality and plateau gradually indicating slow emptying of the lungs. Body plethysmography was performed and demonstrated a decrease TLC to 3.83 L, 82% of predicted, indicative of a mild restrictive ventilatory defect. Diffusing capacity by single breath CO was reduced at 69% of predicted. IMPRESSION: Isolated mild restrictive ventilatory impairment with symmetric reduction in diffusing capacity.
== END | disposition home or self-care (01) ==
LOC: PSN 12:46
PROVIDERS: PCP Family Medicine; Referring Provider Nurse Practitioner Acute Care; Visit Provider Nurse Practitioner Acute Care
DX: R06.02 Shortness of breath (principal)
CPT/HCPCS: 94060; 94726; 94729

== ENCOUNTER → 2022-08-13 | Outpatient (CLI) | payer MEDICARE, SELFPAY ==
[2021-10-20 08:51] VITALS: BMI 26.6
[2022-08-13 12:36] VITALS: PULSE 79; PULSE 81; PULSE 82; PULSE 88; PULSE 89; PULSE 90; PULSE 91; O2SAT 97; O2SAT 98
--- NOTE | 2022-08-16 09:16 | WT_ITS ---
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 Assistive device used: None Pre-test Oxygen Delivery Method Room Air Pulse Ox (%) 98 Pulse Rate (60-100 beats/min) 79 Dyspnea Addy Scale (0-10) 1 1st minute Oxygen Delivery Method Room Air Pulse Ox (%) 98 Pulse Rate (60-100 beats/min) 82 Dyspnea Addy Scale (0-10) 1 Number of Rests Taken 0 2nd minute Oxygen Delivery Method Room Air Pulse Ox (%) 98 Pulse Rate (60-100 beats/min) 88 Dyspnea Addy Scale (0-10) 2 Number of Rests Taken 0 3rd minute Oxygen Delivery Method Room Air Pulse Ox (%) 97 Pulse Rate (60-100 beats/min) 91 Dyspnea Addy Scale (0-10) 2 Number of Rests Taken 0 4th minute Oxygen Delivery Method Room Air Pulse Ox (%) 97 Pulse Rate (60-100 beats/min) 90 Dyspnea Addy Scale (0-10) 2 Number of Rests Taken 0 5th minute Oxygen Delivery Method Room Air Pulse Ox (%) 97 Pulse Rate (60-100 beats/min) 89 Dyspnea Addy Scale (0-10) 2 Number of Rests Taken 0 6th minute Oxygen Delivery Method Room Air Pulse Ox (%) 97 Pulse Rate (60-100 beats/min) 90 Dyspnea Addy Scale (0-10) 2 Number of Rests Taken 0 Post-test Oxygen Delivery Method Room Air Pulse Ox (%) 98 Pulse Rate (60-100 beats/min) 81 Dyspnea Addy Scale (0-10) 1 Full Laps Walked 16 Partial Lap, Number of Tiles Walked 0 Total Distance Walked (ft) 944 Interpretation Interpretation: The patient ambulated 944 feet over the course of 6 minutes beginning on room air without assistive devices. Pretesting oxygen saturation was noted to be 98% on room air. With ambulation, the justo oxygen saturation was 97%. There was no significant exertional oxygen desaturation. Recommendations Recommendations: There is no indication for the use of supplemental oxygen at this time.
== END | disposition home or self-care (01) ==
LOC: PSN 12:22
PROVIDERS: PCP Family Medicine; Referring Provider Nurse Practitioner Acute Care; Visit Provider Nurse Practitioner Acute Care
DX: R06.02 Shortness of breath (principal)
CPT/HCPCS: 94618

== ENCOUNTER → 2023-01-24 | Outpatient (CLI) | payer MEDICARE, SELFPAY ==
[2021-10-20 08:51] VITALS: BMI 26.6
[2023-01-24 17:33] LABS: Hemoglobin 11.9 g/dL (12.0-15.0); Mean Corp Hgb Conc 30.5 g/dL (32-36); Mean Corpuscular Hgb 24.2 pg (27.0-32.0); Mean Corpuscular Volume 79.4 fL (81-99); Mean Platelet Vol. 9.9 fl (6.2-12.0); Platelet Count 232 K/mm3 (150-450); RBC Distribution Width CV 17.7 % (11.6-14.6); RBC Distribution Width SD 50.7 fl (35.1-43.9); RET-HE 28.4 pg (30-35); Red Blood Count 4.91 M/mm3 (4.2-5.4); Reticulocyte Count 1.48 % (0.5-1.5); White Blood Count 5.5 K/mm3 (4.4-11.0)
[2023-01-24 17:51] LABS: ALB/GLOB Ratio 0.9 RATIO (0.9-2.4); AST(SGOT) 37 U/L (15-37); Alanine Aminotransfer ALT/SGPT 50 U/L (13-56); Albumin, Serum 3.6 g/dL (3.2-5.0); Alkaline Phosphatase 78 U/L (45-117); Anion Gap 8 (5-15); BUN 13 mg/dL (7-18); Calcium,Total 8.9 mg/dL (8.5-10.1); Chloride 105 mmol/L (98-107); Cholesterol 174 mg/dL (200); Creatinine, Serum 1.08 mg/dL (0.55-1.02); EST Glomerular Filtration Rate 54 mL/min (>60); Est Glom Filt Rate - Afr Amer 65 mL/min (>60); Ferritin 19 ng/mL (8-252); Globulin 4.2 g/dL (2.2-4.2); Glucose 81 mg/dL (74-106); High Density Lipoprotein 68 mg/dL; Iron 41 ug/dL (50-170); Potassium 4.7 mmol/L (3.5-5.1); Protein, Total 7.8 g/dL (6.4-8.2); Sodium Level 137 mmol/L (136-145); Triglycerides 131 mg/dL; Very Low Density Lipoprotein 26 mg/dL (5-40)
[2023-01-24 18:00] LABS: Vitamin B12 > 2000 pg/mL (211-911); Vitamin D,25 Hydroxy 25.7 ng/mL
[2023-01-24 18:21] LABS: BNP,B-Type NATRIURETIC PEPTIDE 128.9 pg/mL (0-100)
[2023-01-24 18:25] LABS: Thyroid Stim Hormone (TSH) 2.37 uIU/mL (0.358-3.74)
== END | disposition home or self-care (01) ==
LOC: MFPLAB 15:22
PROVIDERS: PCP Family Medicine; Visit Provider Family Medicine
DX: R53.83 Other fatigue (principal); E55.9 Vitamin D deficiency, unspecified; D64.9 Anemia, unspecified; I10 Essential (primary) hypertension
CPT/HCPCS: 36415; 80053; 80061; 82306; 82607; 82728; 83540; 83880; 84443; 85027; 85045

== ENCOUNTER → 2023-06-08 | Outpatient (CLI) | payer MEDICARE, SELFPAY ==
[2021-10-20 08:51] VITALS: BMI 26.6
--- NOTE | 2023-06-08 14:48 | RAD_ITS ---
EXAM: XR ABDOMEN, 2 VIEWS CLINICAL INDICATION: RUQ pain TECHNIQUE: Frontal view of the abdomen/pelvis with upright view of the abdomen. COMPARISON: No relevant prior studies available. FINDINGS: LOWER THORAX: No acute pathology. INTRAPERITONEAL SPACE: No free air. GASTROINTESTINAL TRACT: Unremarkable. Non-obstructive. No bowel or stomach distention. ORGANS: There are surgical clips from a cholecystectomy. No organomegaly. No abnormal calcifications. BONES/JOINTS: No acute pathology. SOFT TISSUES: No acute pathology. TUBES, LINES AND DEVICES: There is a battery pack with stimulating lead extending over the right sacrum. RAD/Abd Inc Decub and/or Erect IMPRESSION: No acute findings in the abdomen or pelvis. Electronically Signed: Chema Arellano MD at 17:43 EDT ,
[2023-06-08 17:46] LABS: Erythrocyte Sedimentation Rate 25 mm/hr (0-30)
[2023-06-08 17:47] LABS: Absolute Lymphocyte Count 1.88 X10^3/uL (0.83-4.51); Absolute Neutrophil Count 3.9 X10^3/uL (2.0-7.7); Basophil# 0.07 X10^3/uL; Basophil% 1.1 % (0-1); Eosinophil# 0.06 X10^3/uL; Eosinophils% 0.9 % (0-5); Hematocrit 39.3 % (37-47); Hemoglobin 12.3 g/dL (12.0-15.0); Lymphocyte # 1.88 X10^3/ul (0.83-4.51); Lymphocyte % 28.9 % (19-41); Mean Corp Hgb Conc 31.3 g/dL (32-36); Mean Corpuscular Hgb 24.7 pg (27.0-32.0); Mean Corpuscular Volume 79.1 fL (81-99); Mean Platelet Vol. 10.3 fl (6.2-12.0); Monocyte# 0.62 X10^3/uL; Monocyte% 9.5 % (0-10); NRBC Flagged by Analyzer 0 % (0-5); Neutrophil # 3.85 X10^3/uL (2.7-7.7); Neutrophil % 59.1 % (47-70); Platelet Count 251 K/mm3 (150-450); RBC Distribution Width CV 17.5 % (11.6-14.6); RBC Distribution Width SD 50.1 fl (35.1-43.9); Red Blood Count 4.97 M/mm3 (4.2-5.4); White Blood Count 6.5 K/mm3 (4.4-11.0)
[2023-06-08 17:54] LABS: ALB/GLOB Ratio 0.9 RATIO (0.9-2.4); AST(SGOT) 20 U/L (15-37); Alanine Aminotransfer ALT/SGPT 27 U/L (13-56); Albumin, Serum 3.9 g/dL (3.2-5.0); Alkaline Phosphatase 88 U/L (45-117); Amylase 40 U/L (25-115); Anion Gap 7 (5-15); BUN 10 mg/dL (7-18); Chloride 102 mmol/L (98-107); Creatinine, Serum 0.91 mg/dL (0.55-1.02); EST Glomerular Filtration Rate 66 mL/min (>60); Est Glom Filt Rate - Afr Amer 80 mL/min (>60); Ferritin 17 ng/mL (8-252); Globulin 4.5 g/dL (2.2-4.2); Glucose 95 mg/dL (74-106); Iron 47 ug/dL (50-170); Lipase 28 U/L (13-75); Potassium 4.1 mmol/L (3.5-5.1); Protein, Total 8.4 g/dL (6.4-8.2); Sodium Level 133 mmol/L (136-145)
[2023-06-13 12:08] LABS: PROEL- A/G Ratio 1.1 (0.7-1.7); PROEL- Albumin 4.1 g/dL (2.9-4.4); PROEL- Alpha-1 Globulin 0.3 g/dL (0.0-0.4); PROEL- Beta Globulin 1.1 g/dL (0.7-1.3); PROEL- Gamma Globulin 1.3 g/dL (0.4-1.8); PROEL- Globulin, Total 3.6 g/dL (2.2-3.9); PROEL- TOTAL PROTEIN 7.7 g/dL (6.0-8.5)
== END | disposition home or self-care (01) ==
PROVIDERS: PCP Family Medicine; Referring Provider Family Medicine; Visit Provider Family Medicine
DX: R10.11 Right upper quadrant pain (principal); D64.9 Anemia, unspecified
CPT/HCPCS: 36415; 74019; 80053; 82150; 82728; 83540; 83690; 84165; 85025; 85652

== ENCOUNTER 2023-06-09 19:59 | Emergency (ER) | payer MEDICARE, SELFPAY ==
[2021-10-20 08:51] VITALS: BMI 26.6
[2023-06-09 20:00] VITALS: BP 145/75; PULSE 91; RESP 18; TEMP 36.8; O2SAT 95; BMI 28.2
--- NOTE | 2023-06-09 20:12 | EKG12_ITS ---
Test Reason : DYSRHYTHMIA Blood Pressure : / mmHG Vent. Rate : 079 BPM Atrial Rate : 079 BPM P-R Int : 170 ms QRS Dur : 104 ms QT Int : 406 ms P-R-T Axes : 050 005 035 degrees QTc Int : 465 ms Suspect unspecified pacemaker failure Sinus rhythm with occasional Premature ventricular complexes Otherwise normal ECG Confirmed by JOSEPHINE CHOI, LONA ([id number]), book editor VERÓNICA THAPA ([id number]) on 06/10/2023 10:02:10 AM Referred By: JOSÉ LUIS Confirmed By:LONA BURTON MD
--- NOTE | 2023-06-09 20:13 | CT_ITS ---
STUDY: CT ABDOMEN AND PELVIS WITHOUT CONTRAST REASON FOR EXAM: Female, 68 years old. RUQ pain RADIATION DOSAGE (If Supplied By Facility): CTDIvol = ( 6.71 ) mGy, DLP = ( 335.24 ) mGycm TECHNIQUE: Transaxial images were obtained from the dome of the diaphragm to the symphysis pubis without oral contrast, and without intravenous contrast. Sagittal and coronal images were reconstructed. Individualized dose optimization techniques were used for this CT. COMPARISON: None. FINDINGS: The visualized lung bases are unremarkable. The visualized portions of the heart are within normal limits. Cirrhosis of the liver. Status post cholecystectomy. No significant dilatation of the extrahepatic biliary system. Normal spleen. Normal pancreas. Normal bilateral adrenal glands. 3 mm stone in the right kidney. Normal left kidney. Normal visualized stomach. Normal small intestine. Normal colon. The appendix is not visualized. Calcified abdominal aorta. Normal inferior vena cava. Normal retroperitoneum. Normal urinary bladder. Normal abdominal wall. Normal osseous structures. CT/Abdomen/Pelvis without Cont IMPRESSION: Nonobstructive right renal stone. Electronically Signed: Bipin Smith DO at 21:29 EDT Reading Location ID and State: [facility] / [place] Tel [phone], Service support ,
--- NOTE | 2023-06-09 20:14 | EX.ED.DYSGE1 ---
HPI History of Present Illness Chief Complaint: Abd Pain Informant: patient Onset/Context/Timing Onset: Days Context: Gradual Onset Current Severity: Moderate Maximum Severity: Moderate Narrative Narrative: Patient presents with a several day history of right upper quadrant abdominal pain. She states it feels like someone is squeezing and twisting something in her abdomen. She has had multiple abdominal surgeries including bowel resection, hysterectomy, appendectomy, and cholecystectomy. She has not had fever or chills. She has had nausea but no vomiting. She has had some diarrhea. She denies shortness of breath or chest pain. She has not had a cough. She was seen by her PCP yesterday and blood work was obtained. She states when she contacted them today she was told they did not yet have the results back. Because her pain was even worse she was directed to the emergency room. 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 Chest pain, unspecified Congestive heart failure DDD (degenerative disc disease) Essential hypertension History of COPD Lung cancer Melanoma Myocardial infarction, silent Nonrheumatic mitral (valve) prolapse HOWARD (obstructive sleep apnea) Osteoarthritis Pericardial effusion Premature ventricular contraction Pure hypercholesterolemia Tobacco abuse Worsening angina Home Medications omeprazole 20 mg capsule,delayed release 20 mg PO DAILY acid reflux 02/04/16 [History Last Taken 06/13/22] primidone 50 mg tablet 100 mg PO QHS seizures 30 days #30 tabs 08/17/18 [History Last Taken 06/13/22] albuterol sulfate 90 mcg/actuation aerosol inhaler 1 puff inhalation Q6H PRN PRN Sob &/Or Wheezing 07/28/20 [History Last Taken 06/14/22] ipratropium 0.5 mg-albuterol 3 mg (2.5 mg base)/3 mL nebulization soln 3 ml inhalation Q4H PRN shortness of breath or wheezing #180 mL 12/29/20 [Rx Last Taken 06/08/22] nitroglycerin 0.4 mg sublingual tablet 0.4 mg sublingual Q5M PRN Chest Pain #25 tabs 02/23/21 [Rx Last Taken 06/14/22] ondansetron HCl 4 mg tablet (Zofran) 4 mg PO Q8H PRN nausea and vomiting #20 tabs 04/08/21 [Rx Last Taken 06/13/22] prazosin 1 mg capsule 1 cap PO QHS BP 06/09/22 [History Last Taken 06/13/22] nebulizer and compressor #1 ea 06/11/22 [Rx Last Taken Unknown] budesonide 1 mg/2 mL suspension for nebulization 1 mg inhalation BID SOB 06/14/22 [History Last Taken Unknown] buspirone 15 mg tablet 15 mg PO TID anxiety 06/14/22 [History Last Taken 06/13/22] ferrous sulfate 325 mg (65 mg iron) tablet,delayed release 325 mg PO BID supplement 06/14/22 [History Last Taken Unknown] sertraline 100 mg tablet 150 mg PO DAILY mood 06/14/22 [History Last Taken 06/13/22] amlodipine 2.5 mg tablet 2.5 mg PO DAILY #90 tabs 06/16/22 [Rx Last Taken Unknown] aspirin 81 mg chewable tablet 81 mg PO BREAKFAST #90 tabs 06/16/22 [Rx Last Taken Unknown] clopidogrel 75 mg tablet 75 mg PO DAILY #90 tabs 06/16/22 [Rx Last Taken Unknown] furosemide 20 mg tablet 40 mg (2 x 20 mg) PO DAILY edema 60 days #60 tabs 06/16/22 [Rx Last Taken Unknown] ezetimibe 10 mg tablet (Zetia) 10 mg PO DAILY #30 tabs 06/30/22 [Rx Last Taken Unknown] hydroxyzine HCl 50 mg tablet 100 mg PO TID MOOD 06/30/22 [History Last Taken Unknown] potassium chloride 20 mEq tablet,extended release 40 meq (2 x 20 mEq) PO DAILY #60 tabs 06/30/22 [Rx Last Taken Unknown] metoprolol succinate 25 mg tablet,extended release 24 hr 12.5 mg (1/2 x 25 mg) PO DAILY bp #45 tabs 02/10/23 [Rx Last Taken Unknown] hydrocodone-acetaminophen 5-325mg 5mg-325mg 1 tab PO Q6H PRN PRN Pain 3 days #10 TABLETS 06/09/23 [Rx Last Taken Unknown] Allergy/AdvReac Type Severity Reaction Status Date / Time Iodinated Contrast Media Allergy Hives Verified 06/09/23 20:02 [Iodinated Contrast Media - IV Dye] tetracycline [Tetracycline] Allergy Hives Verified 06/09/23 20:02 pravastatin AdvReac Intermediate Upset Verified 06/09/23 20:02 Stomach atorvastatin [From Lipitor] AdvReac myalgia Verified 06/09/23 20:02 Family History Father Hypertension Colon cancer Mother Cancer LUNG CANCER/ SMOKER Father , MELANOMA No problems noted. Surgical History Aortocoronary bypass status (~05/12/04) History of abdominal surgery History of bowel resection History of cataract surgery History of cholecystectomy History of total hysterectomy Hx of appendectomy interstim placement (~08/05/20) Postsurgical percutaneous transluminal coronary angioplasty (PTCA) status (~03/12/18) Presence of coronary angioplasty implant and graft (~03/12/18) Presence of stent in coronary artery (~06/15/22) S/P partial lobectomy of lung Social History adopted: No household members: spouse housing: house number of children: 1 current occupational status: retired current occupational exposures/hazards: No Smoking Status: Former smoker quit date: 01/28/21 pack-years: 50 Tobacco: How many years used: 50 how long ago did patient quit smokin weeks ago alcohol intake: never substance use type: does not use caffeine: Yes Type: carbonated beverages Number of servings: 2 ROS ROS ED Constitutional Constitutional ED: Denies chills or fever(s) Eyes Eyes: Denies change in vision or discharge from eye(s) ENT ENT ED: Denies discharge from eye(s), rhinorrhea or sore throat Cardiovascular Cardiovascular: Denies chest pain or palpitations Respiratory/Chest Respiratory/Chest: Denies cough or dyspnea Gastrointestinal Gastrointestinal: Reports abdominal pain, diarrhea and nausea; Denies vomiting Genitourinary Genitourinary ED: Denies difficulty urinating or dysuria Musculoskeletal Musculoskeletal: Denies back pain or extremity pain Integumentary Denies Abrasions or rash Neurologic Neurologic: Denies headache(s) or weakness Allergic/Immunologic Allergic/Immunologic ED: Denies lip swelling or urticaria EXAM Physical Exam Const Vital Signs: 06/09/23 20:00 Temperature 98.3 F Temperature Source Temporal Pulse Rate 91 Respiratory Rate 18 Blood Pressure 145/75 H Blood Pressure Mean 98 Pulse Ox 95 Oxygen Delivery Method Room Air Positive well nourished and well developed General Appearance ED: well developed HEENT Reports moist mucous membranes Eyes PERRL and EOMs intact bilaterally Neck no lymphadenopathy Chest Wall inspection of chest normal and palpation of chest normal Resp normal respiratory effort and clear to auscultation bilaterally Cardio regular rate and regular rhythm GI GI Narrative: Moderate tenderness to the right upper quadrant and epigastrium. No guarding or rebound. Hypoactive but present bowel sounds are noted. Extremity normal to inspection Neuro oriented x3 and no sensory deficits noted Sensorium / Orientation: alert Motor Exam: strength 5/5 throughout Skin no rashes or lesions noted MDM MDM MDM Narrative Medical decision making narrative: Patient's labs from yesterday were reviewed and were unremarkable. Labwork obtained to evaluate for leukocytosis, anemia, and electrolyte derangement. EKG obtained. Chest x-ray obtained to evaluate for acute lung pathology, cardiac size, or mediastinal abnormality. CT scan of the abdomen pelvis obtained to evaluate for acute abnormality. Patient is given morphine and Zofran for pain and nausea. Lab Data Attestation: I reviewed the patient's lab results. Labs: Laboratory Results - last 24 hr 06/09/23 20:40 WBC 5.5 RBC 4.59 Hgb 11.4 L Hct 36.1 L MCV 78.6 L MCH 24.8 L MCHC 31.6 L RDW Std Deviation 49.1 H RDW Coeff of Kit 17.2 H Plt Count 206 MPV 9.9 Immature Gran % (Auto) 0.400 Neut % (Auto) 55.8 Lymph % (Auto) 31.6 Randall % (Auto) 9.5 Eos % (Auto) 1.8 Baso % (Auto) 0.9 Absolute Neuts (auto) 3.1 Absolute Lymphs (auto) 1.74 Nucleated RBC % 0 Sodium 135 L Potassium 3.8 Chloride 102 Carbon Dioxide 24.0 Anion Gap 9 BUN 12 Creatinine 0.93 Estim Creat Clear Calc 49.22 Est GFR (MDRD) Af Amer 77 Est GFR (MDRD) Non-Af 64 BUN/Creatinine Ratio 12.9 Glucose 126 H Calcium 8.7 Total Bilirubin 0.40 Direct Bilirubin 0.13 AST 22 ALT 25 Alkaline Phosphatase 74 Troponin I High Sens 13 Total Protein 7.5 Albumin 3.4 Globulin 4.1 Lipase 27 Radiography Diagnostic Testing: Clinical Impression(s) from Imaging Studies Abdomen/Pelvis CT 06/09/23 20:13 IMPRESSION: Nonobstructive right renal stone. Electronically Signed: Bipin Smith DO at 21:29 EDT , Chest X-Ray 06/09/23 20:38 IMPRESSION: Stable right upper lobe chronic lateral opacity. Electronically Signed: Bipin Smith at 20:49 EDT , EKG Initial EKG: Attestation: I personally reviewed and interpreted this EKG as follows: Interpretation: Sinus Rhythm (Sinus at 79 with occasional PVC. No acute ischemia.) Treatment and Re-Evaluation :: CBC was normal white count of 5.5 with a hemoglobin 11.4. Chemistry studies unremarkable with normal renal function. LFTs are unremarkable. Lipase is normal. Portable chest x-ray per my interpretation reveals no acute abnormalities. Radiology interpretation reviewed and agrees. CT scan of the abdomen pelvis reveals a nonobstructive right renal stone. No other acute findings noted. On repeat examination patient much more comfortable. Test results discussed with her. Patient be given a short course of [place] for breakthrough pain. Return instructions given. Discharge Plan Triage Chief Complaint: Abd Pain ED Provider: Nivia Campoverde Dx/Rx/DC Orders Clinical Impression: Abdominal pain Instructions: ED Abdominal Pain Unkn Cause Fem Prescriptions: New hydrocodone-acetaminophen 5-325 mg tablet 1 tab PO Q6H PRN PRN (Reason: Pain) 3 Days Qty: 10 0RF No Action primidone 50 mg tablet 100 mg PO QHS 30 Days Qty: 30 nitroglycerin 0.4 mg tablet, sublingual 0.4 mg SUBLINGUAL Q5M PRN (Reason: Chest Pain) Qty: 25 3RF Patient Comments: chest pain Rx Instructions: Place one tab under tongue every 5 minutes x 3 doses as needed ondansetron HCl [Zofran] 4 mg tablet 4 mg PO Q8H PRN (Reason: nausea and vomiting) Qty: 20 1RF Rx Instructions: take 1 tab PO q 8hrs prn nausea potassium chloride 20 mEq tablet extended release 40 meq PO DAILY Qty: 60 12RF ezetimibe [Zetia] 10 mg tablet 10 mg PO DAILY Qty: 30 11RF omeprazole 20 MG capsule 20 mg PO DAILY Patient Comments: heart burn albuterol sulfate 1 PUFF inhaler 1 puff INHALATION Q6H PRN PRN (Reason: Sob &/Or Wheezing) prazosin 1 mg capsule 1 cap PO QHS (DME) nebulizer and compressor Device See Rx Instructions .Route Qty: 1 0RF Rx Instructions: As directed hydroxyzine HCl 50 mg tablet 100 mg PO TID sertraline 100 mg tablet 150 mg PO DAILY ferrous sulfate 325 mg (65 mg iron) tablet,delayed release (DR/EC) 325 mg PO BID buspirone 15 mg tablet 15 mg PO TID budesonide 1 mg/2 mL suspension for nebulization 1 mg INHALATION BID amlodipine 2.5 mg Tablet 2.5 mg PO DAILY Qty: 90 0RF clopidogrel 75 mg Tablet 75 mg PO DAILY Qty: 90 3RF aspirin 81 mg Tablet,Chewable 81 mg PO BREAKFAST Qty: 90 0RF furosemide 20 mg tablet 40 mg PO DAILY 60 Days Qty: 60 0RF ipratropium-albuterol 0.5 mg-3 mg(2.5 mg base)/3 mL solution for nebulization 3 ml INHALATION Q4H PRN (Reason: shortness of breath or wheezing) Qty: 180 3RF metoprolol succinate 25 mg tablet extended release 24 hr 12.5 mg PO DAILY Qty: 45 3RF Primary Care Provider: Phani Odom Referrals: Phani Odom MD [Primary Care Provider] - 1 Week if not improving Disposition Disposition: Home, Self Care
[2023-06-09] MEDS: Ondansetron 4 MG/2 ML Vial IV (20:35)
[2023-06-09] MEDS: Morphine 4 MG/ML Syringe IV (20:35)
[2023-06-09] MEDS: 0.9% Normal Saline 1,000 ML 150 ML IV (20:35)
--- NOTE | 2023-06-09 20:38 | RAD_ITS ---
INDICATION: pain EXAMINATION/TECHNIQUE: X-RAY - XR Chest 1 View COMPARISON: 06/14/2022 FINDINGS: LINES/DEVICES: Stable sternotomy wires.. LUNGS: There is a chronic right upper lobe lateral opacity similar to previous study. No pneumothorax. MEDIASTINUM AND CARDIOVASCULAR STRUCTURES: Cardiac silhouette not enlarged. Central airways and mediastinal contour are unremarkable. BONES AND SOFT TISSUES: Surgical fusion of visualized lower cervical levels.. RAD/Chest 1 View (Portable) IMPRESSION: Stable right upper lobe chronic lateral opacity. Electronically Signed: Bipin Smith DO at 20:49 EDT ,
[2023-06-09 20:48] LABS: Absolute Lymphocyte Count 1.74 X10^3/uL (0.83-4.51); Absolute Neutrophil Count 3.1 X10^3/uL (2.0-7.7); Basophil# 0.05 X10^3/uL; Basophil% 0.9 % (0-1); Eosinophils% 1.8 % (0-5); Hematocrit 36.1 % (37-47); Hemoglobin 11.4 g/dL (12.0-15.0); Lymphocyte # 1.74 X10^3/ul (0.83-4.51); Lymphocyte % 31.6 % (19-41); Mean Corp Hgb Conc 31.6 g/dL (32-36); Mean Corpuscular Hgb 24.8 pg (27.0-32.0); Mean Corpuscular Volume 78.6 fL (81-99); Mean Platelet Vol. 9.9 fl (6.2-12.0); Monocyte# 0.52 X10^3/uL; Monocyte% 9.5 % (0-10); NRBC Flagged by Analyzer 0 % (0-5); Neutrophil # 3.07 X10^3/uL (2.7-7.7); Neutrophil % 55.8 % (47-70); Platelet Count 206 K/mm3 (150-450); RBC Distribution Width CV 17.2 % (11.6-14.6); RBC Distribution Width SD 49.1 fl (35.1-43.9); Red Blood Count 4.59 M/mm3 (4.2-5.4); White Blood Count 5.5 K/mm3 (4.4-11.0)
[2023-06-09 21:10] LABS: AST(SGOT) 22 U/L (15-37); Alanine Aminotransfer ALT/SGPT 25 U/L (13-56); Albumin, Serum 3.4 g/dL (3.2-5.0); Alkaline Phosphatase 74 U/L (45-117); Anion Gap 9 (5-15); BUN 12 mg/dL (7-18); BUN/Creat Ratio 12.9 RATIO (10-20); Bilirubin, Direct 0.13 mg/dL (0.00-0.30); Calcium,Total 8.7 mg/dL (8.5-10.1); Chloride 102 mmol/L (98-107); Creatinine, Serum 0.93 mg/dL (0.55-1.02); EST Glomerular Filtration Rate 64 mL/min (>60); Est Glom Filt Rate - Afr Amer 77 mL/min (>60); Estimated Creatinine Clearance 49.22 ml/min; Globulin 4.1 g/dL (2.2-4.2); Glucose 126 mg/dL (74-106); Lipase 27 U/L (13-75); Potassium 3.8 mmol/L (3.5-5.1); Protein, Total 7.5 g/dL (6.4-8.2); Sodium Level 135 mmol/L (136-145); Troponin-I HS 13 pg/mL (3.0-54.0)
[2023-06-09 22:00] VITALS: RESP 18
== END 2023-06-09 22:19 | disposition home or self-care (01) ==
PROVIDERS: Emergency Provider Emergency Medicine; PCP Family Medicine; Visit Provider Emergency Medicine
DX: R10.9 Unspecified abdominal pain (principal); J44.9 Chronic obstructive pulmonary disease, unspecified; I11.0 Hypertensive heart disease with heart failure; I50.9 Heart failure, unspecified; Z87.891 Personal history of nicotine dependence; R11.0 Nausea; I25.10 Atherosclerotic heart disease of native coronary artery without angina pectoris; E78.00 Pure hypercholesterolemia, unspecified; I25.2 Old myocardial infarction; Z79.899 Other long term (current) drug therapy; Z79.51 Long term (current) use of inhaled steroids; Z79.82 Long term (current) use of aspirin; Z79.02 Long term (current) use of antithrombotics/antiplatelets; Z90.49 Acquired absence of other specified parts of digestive tract; Z90.710 Acquired absence of both cervix and uterus; Z95.5 Presence of coronary angioplasty implant and graft
CPT/HCPCS: 71045; 74176; 80048; 80076; 83690; 84484; 85025; 93005; 96361; 96374; 96375; 99284; J7030; A4216; J2405

== ENCOUNTER 2024-01-12 13:11 | Emergency (ER) | payer MEDICARE, SELFPAY ==
[2021-10-20 08:51] VITALS: BMI 26.6
[2024-01-12] VITALS (7 sets, daily range): BP systolic 109–139; BP diastolic 71–87; PULSE 59–77; RESP 14–29; TEMP 36.6; O2SAT 93–98
--- NOTE | 2024-01-12 13:15 | EKG12_ITS ---
Test Reason : CP Blood Pressure : / mmHG Vent. Rate : 075 BPM Atrial Rate : 075 BPM P-R Int : 170 ms QRS Dur : 096 ms QT Int : 408 ms P-R-T Axes : 035 048 008 degrees QTc Int : 455 ms Normal sinus rhythm POOR R WAVE PROGRESSION Borderline ECG Confirmed by Con Reina ([id number]), digital editor BAR GUERRA ([id number]) on 01/16/2024 2:08:02 PM Referred By: Confirmed By:Con Reina
--- NOTE | 2024-01-12 13:54 | EDS_ITS ---
HPI <MAXINE Driver - Last Filed: 01/12/24 17:50> History of Present Illness Chief Complaint: Chest Pain Narrative Narrative: 68-year-old female with PMH of HTN, CAD with 7 stents, CABG (2003), history of lung carcinoma s/p surgical excision and radiation therapy, smoker states last night around 8 PM she felt short of breath while watching TV. This morning around 1 PM she developed left-sided chest pain rating to the left jaw and arm. She also still feels short of breath. No nausea or vomiting. She is on Plavix. She smokes 1/2 PPD and states she has been smoking a little more than usual due to stress lately. PFS <MAXINE Driver - Last Filed: 01/12/24 17:50> [facility] Medical History (Updated 01/12/24 @ 17:31 by MAXINE Driver) Adenocarcinoma of lung, stage 1 Anemia Angina of effort Anxiety Atherosclerotic heart disease of [place] coronary artery with unstable angina pectoris Atherosclerotic heart disease of [place] coronary artery without angina pectoris Chest pain, unspecified Congestive heart failure DDD (degenerative disc disease) Essential hypertension History of COPD Lung cancer Melanoma Myocardial infarction, silent Nonrheumatic mitral (valve) prolapse HOWARD (obstructive sleep apnea) Osteoarthritis Pericardial effusion Premature ventricular contraction Pure hypercholesterolemia Tobacco abuse Worsening angina Home Medications omeprazole 20 mg capsule,delayed release 20 mg PO DAILY acid reflux 02/04/16 [History Last Taken 06/13/22] albuterol sulfate 90 mcg/actuation aerosol inhaler 1 puff inhalation Q6H PRN Sob &/Or Wheezing 07/28/20 [History Last Taken 06/14/22] ipratropium 0.5 mg-albuterol 3 mg (2.5 mg base)/3 mL nebulization soln 3 ml inhalation Q4H PRN shortness of breath or wheezing #180 mL 12/29/20 [Rx Last Taken 06/08/22] nitroglycerin 0.4 mg sublingual tablet 0.4 mg sublingual Q5M PRN Chest Pain #25 tabs 02/23/21 [Rx Last Taken 06/14/22] nebulizer and compressor #1 ea 06/11/22 [Rx Last Taken Unknown] sertraline 100 mg tablet 150 mg PO DAILY mood 06/14/22 [History Last Taken 06/13/22] clopidogrel 75 mg tablet 75 mg PO DAILY #90 tabs 06/16/22 [Rx Last Taken Unknown] metoprolol succinate 25 mg tablet,extended release 24 hr 12.5 mg (1/2 x 25 mg) PO DAILY bp #45 tabs 02/10/23 [Rx Last Taken Unknown] clonazepam 1 mg tablet 1 mg PO TID 01/10/24 [History Last Taken Unknown] hydroxyzine HCl 25 mg tablet 25 mg PO TID #90 tabs 01/10/24 [Rx Last Taken Unknown] mirtazapine 15 mg tablet 15 mg PO QHS #30 tabs 01/10/24 [Rx Last Taken Unknown] primidone 50 mg tablet 150 mg PO QHS seizures 30 days #90 tabs 01/10/24 [History Last Taken Unknown] prazosin 2 mg capsule 2 mg PO QHS 01/12/24 [History Last Taken Unknown] Allergy/AdvReac Type Severity Reaction Status Date / Time Iodinated Contrast Media Allergy Hives Verified 01/12/24 13:12 [Iodinated Contrast Media - IV Dye] mesalamine [From Asacol] Allergy GASTRIC Verified 01/12/24 13:19 HEMORRHAGE tetracycline [Tetracycline] Allergy Hives Verified 01/12/24 13:12 pravastatin AdvReac Intermediate Upset Verified 01/12/24 13:12 Stomach atorvastatin [From Lipitor] AdvReac myalgia Verified 01/12/24 13:12 Family History (Updated 01/10/24 @ 13:38 by Harper Pearson) Father Hypertension Colon cancer Alcoholism Mother Cancer LUNG CANCER/ SMOKER Father , MELANOMA No problems noted. Surgical History Aortocoronary bypass status (~05/12/04) History of abdominal surgery History of bowel resection History of cataract surgery History of cholecystectomy History of total hysterectomy Hx of appendectomy interstim placement (~08/05/20) Postsurgical percutaneous transluminal coronary angioplasty (PTCA) status (~ 03/12/18) Presence of coronary angioplasty implant and graft (~03/12/18) Presence of stent in coronary artery (~06/15/22) S/P partial lobectomy of lung Social History (Updated 01/10/24 @ 13:28 by Harper Pearson) adopted: No housing: house number of children: 1 current occupational status: retired current occupational exposures/hazards: No Smoking Status: Former smoker Tobacco: How many years used: 50 how long ago did patient quit smokin weeks ago alcohol intake: never substance use type: does not use caffeine: Yes Type: carbonated beverages Number of servings: 2 ROS <MAXINE Driver - Last Filed: 01/12/24 17:50> ROS ED ROS Narrative Constitutional: Negative for fever, chills, malaise. CVS: Positive for chest pain. Negative for syncope. Respiratory: Positive for shortness of breath. Negative for cough. GI: Negative for abdominal pain, nausea, vomiting. EXAM <MAXINE Driver - Last Filed: 01/12/24 17:50> Physical Exam Narrative Exam Narrative: CONST: Patient sitting in no acute distress. EYES: Normal inspection. NECK: Normal inspection. RESP: No respiratory distress, CTAB. CVS: Regular rate and rhythm, no murmur, no gallop. ABD: Soft and nontender, no guarding or rebound, nondistended. SKIN: Color normal, no rash, warm, dry, intact. EXTREMITIES: Normal appearance, no pedal edema. NEURO: Oriented x4. PSYCH: Normal affect. Const Vital Signs: 01/12/24 13:13 01/12/24 14:29 01/12/24 14:32 Temperature 98 F Temperature Source Temporal Pulse Rate 77 59 L Respiratory Rate 14 17 Blood Pressure 139/87 H 127/80 H Blood Pressure Mean 104 95 Pulse Ox 98 94 95 Oxygen Delivery Method Room Air Room Air Room Air 01/12/24 15:46 01/12/24 15:51 01/12/24 16:24 Temperature 97.9 F Temperature Source Pulse Rate 63 63 65 Respiratory Rate 20 H 16 29 H Blood Pressure 109/78 116/71 122/80 H Blood Pressure Mean 88 86 94 Pulse Ox 97 97 95 Oxygen Delivery Method Room Air Room Air 01/12/24 17:25 Temperature Temperature Source Pulse Rate 64 Respiratory Rate 18 Blood Pressure 125/83 H Blood Pressure Mean 97 Pulse Ox 93 Oxygen Delivery Method Room Air <Dr. Jevon Lindsay DO - Last Filed: 01/12/24 22:39> Physical Exam Const Vital Signs: 01/12/24 13:13 01/12/24 14:29 01/12/24 14:32 Temperature 98 F Temperature Source Temporal Pulse Rate 77 59 L Respiratory Rate 14 17 Blood Pressure 139/87 H 127/80 H Blood Pressure Mean 104 95 Pulse Ox 98 94 95 Oxygen Delivery Method Room Air Room Air Room Air 01/12/24 15:46 01/12/24 15:51 01/12/24 16:24 Temperature 97.9 F Temperature Source Pulse Rate 63 63 65 Respiratory Rate 20 H 16 29 H Blood Pressure 109/78 116/71 122/80 H Blood Pressure Mean 88 86 94 Pulse Ox 97 97 95 Oxygen Delivery Method Room Air Room Air 01/12/24 17:25 Temperature Temperature Source Pulse Rate 64 Respiratory Rate 18 Blood Pressure 125/83 H Blood Pressure Mean 97 Pulse Ox 93 Oxygen Delivery Method Room Air [facility] <MAXINE Driver - Last Filed: 01/12/24 17:50> [facility] Narrative Medical decision making narrative: History gathered from: Patient, daughter Differential: Angina, ACS, pneumonia, pneumothorax Patient developed chest pain rating to left arm and jaw and shortness of breath at rest. History of significant multivessel disease. CABG and stents in the past. Also history of lung cancer s/p resection. She appears well and nontoxic. Vital signs stable. Normal cardiopulmonary exam. No chest or abdominal tenderness. Upper and lower pulses equal and symmetric. EKG is sinus rhythm with no acute ischemic changes and serial troponins are 19 and 25. CBC shows normal white count, hemoglobin of 9.6 is lower than previous but this was a year and a half ago. She has no signs or symptoms of bleeding. BMP unremarkable. Chest x-ray shows right lung opacity of unknown etiology denser than previous exam. Patient was not aware of this abnormality. She is supposed to get CT screenings with her oncologist but does not think she had her last done. Prior CT chest in our system is from July [address] was obtained in the ED and shows an indeterminant right lung consolidation increased from previous. Could be inflammatory or neoplastic. On reassessment of the patient after IV morphine 4 mg x 2 she states her pain is completely resolved. I advise she be admitted to the hospital for cardiac workup. Last cardiac cath was 2021. She prefers to go home and call her style advisor and oncologist tomorrow. I discussed risks including ACS, [place], permanent disability or . Patient expressed understanding and is leaving AGAINST MEDICAL ADVICE. She was advised to return for new symptoms. External records reviewed: August 2022 heart catheterization showed patent stents, had a drug-eluting stent placement to proximal diagonal 1. Echo on 06/09/2022 showed EF of 60%, mild mitral valve stenosis, moderate mitral valve insufficiency, moderate tricuspid valve insufficiency and RVSP of 57 mmHg. Lab Data Attestation: I reviewed the patient's lab results. Labs: Laboratory Results - last 24 hr 01/12/24 01/12/24 13:35 16:35 WBC 5.4 RBC 4.12 L Hgb 9.6 L Hct 30.9 L MCV 75.0 L MCH 23.3 L MCHC 31.1 L RDW Std Deviation 47.6 H RDW Coeff of Kit 17.5 H Plt Count 237 MPV 9.9 Immature Gran % (Auto) 0.600 Neut % (Auto) 52.7 Lymph % (Auto) 33.3 [place] % (Auto) 10.7 H Eos % (Auto) 2.0 Baso % (Auto) 0.7 Absolute Neuts (auto) 2.9 Absolute Lymphs (auto) 1.80 Nucleated RBC % 0 Sodium 136 Potassium 4.0 Chloride 102 Carbon Dioxide 25.0 Anion Gap 9 BUN 10 Creatinine 1.05 H Est GFR (MDRD) Af Amer 67 Est GFR (MDRD) Non-Af 56 L BUN/Creatinine Ratio 9.5 L Glucose 116 H Calcium 8.8 Troponin I High Sens 19 25 Radiography Diagnostic Testing: Clinical Impression(s) from Imaging Studies Chest X-Ray 01/12/24 14:20 IMPRESSION: Persistent opacity in the right midlung zone laterally slightly denser than the previous exam. Further evaluation with CT scan of the chest is recommended. Electronically Signed: Sher Longoria MD at 14:47 EST , Chest CT 01/12/24 16:04 IMPRESSION: Interval increase in calcific pleural plaquing and adjacent focal consolidation since prior exam of indeterminate etiology possibly inflammatory although cannot exclude evolving neoplasm Electronically Signed: Reji Medina MD at 17:12 EST , ED attending interpretation of 1-view chest x-ray shows normal heart size, r opacity in the right midlung laterally. EKG Initial EKG: Attestation: I personally reviewed and interpreted this EKG as follows: Comments: Normal sinus rhythm at 69 bpm Occasional PVC, no acute ischemic changes Pacemaker cortes are present due to her bladder pacemaker, she does not have a cardiac pacemaker <Dr. Jevon Lindsay, DO - Last Filed: 01/12/24 22:39> [facility] Lab Data Labs: Laboratory Results - last 24 hr 01/12/24 01/12/24 13:35 16:35 WBC 5.4 RBC 4.12 L Hgb 9.6 L Hct 30.9 L MCV 75.0 L MCH 23.3 L MCHC 31.1 L RDW Std Deviation 47.6 H RDW Coeff of Kit 17.5 H Plt Count 237 MPV 9.9 Immature Gran % (Auto) 0.600 Neut % (Auto) 52.7 Lymph % (Auto) 33.3 [place] % (Auto) 10.7 H Eos % (Auto) 2.0 Baso % (Auto) 0.7 Absolute Neuts (auto) 2.9 Absolute Lymphs (auto) 1.80 Nucleated RBC % 0 Sodium 136 Potassium 4.0 Chloride 102 Carbon Dioxide 25.0 Anion Gap 9 BUN 10 Creatinine 1.05 H Est GFR (MDRD) Af Amer 67 Est GFR (MDRD) Non-Af 56 L BUN/Creatinine Ratio 9.5 L Glucose 116 H Calcium 8.8 Troponin I High Sens 19 25 Radiography Diagnostic Testing: Clinical Impression(s) from Imaging Studies Chest X-Ray 01/12/24 14:20 IMPRESSION: Persistent opacity in the right midlung zone laterally slightly denser than the previous exam. Further evaluation with CT scan of the chest is recommended. Electronically Signed: Sher Longoria MD at 14:47 EST , Chest CT 01/12/24 16:04 IMPRESSION: Interval increase in calcific pleural plaquing and adjacent focal consolidation since prior exam of indeterminate etiology possibly inflammatory although cannot exclude evolving neoplasm Electronically Signed: Reji Medina MD at 17:12 EST Reading Location ID and State: [facility] / [place] Tel , Service support , Treatment and Re-Evaluation :: I have personally performed a face to face assessment of the patient and have reviewed the VLADIMIR Note. I performed a substantive portion of the visit including all aspects of the following. My rojas findings include: History: Patient presents with chest pain that began this morning. Patient states her pain is over her left upper chest and radiates into her left arm. Patient states she was having some shortness of breath prior to that. Patient states her pain is similar to the pain she had prior to her bypass surgery and stent placement. Patient denies any fevers or chills. Patient admits to a cough with some clear sputum. Patient admits to some nausea but denies any vomiting. Exam: Vital signs are stable. Patient is afebrile. Patient is in no acute distress. Oral mucosa is pink and moist. Neck is supple. Trachea is midline. There is no JVD. Heart was regular rate and rhythm. Lungs are clear and equal bilaterally. There is good respiratory effort noted. Abdomen is soft. Bowel sounds are normal. There is no tenderness. Cranial nerves II through XII are intact. There are no focal motor or sensory deficits noted. Medical Decision Making: Differential diagnosis includes cardiac dysrhythmia, cardiac ischemia, pneumonia, electrolyte abnormality, and anxiety. EKG will be obtained to assess for cardiac dysrhythmia and cardiac ischemia. Chest x-ray will be obtained to assess for pneumonia and pneumothorax. CBC will be obtained to assess for leukocytosis and anemia. Basic metabolic profile will be obtained to assess for electrolyte abnormality and renal function. High-sensitivity troponin will be obtained to assess for cardiac ischemia. 2-hour repeat high- sensitivity troponin will be obtained to assess for ongoing cardiac ischemia. Initial EKG was obtained. On my independent interpretation, shows normal sinus rhythm with a rate of 75. There are no acute ST or T wave changes noted. CBC was reviewed. There is a mild anemia with a hemoglobin of 9.6 and hematocrit of 30.9. Platelets are normal. Basic metabolic profile was reviewed. Creatinine was slightly elevated at 1.05 but was otherwise within normal limits. High- sensitivity troponin was reviewed and was normal at 19. Patient had further w orsening of her chest pain. Repeat EKG was obtained. On my independent interpretation, it shows a normal sinus rhythm with a rate of 69. There are occasional PVCs noted. There are no acute ST or T wave changes noted. Patient has a HEART score of 5. Patient had a cardiac catheterization in 2021. Patient has had no other stress test or cardiac intervention since that time. Because of this, I recommended admission to the hospital. Patient does not want to stay in the hospital. Patient will sign out AGAINST MEDICAL ADVICE. Patient was advised of the risks and benefits. Patient understands these risks and will sign out AGAINST MEDICAL ADVICE. Discharge Plan Triage Chief Complaint: Chest Pain ED Midlevel Provider: Stacey Nevarez ED Provider: Jevon Lindsay Dx/Rx/DC Orders Clinical Impression: Chest pain, Abnormal CT scan, lung Instructions: ED Chest Pain, Uncertain Cause Prescriptions: No Action primidone 50 mg tablet 150 mg PO QHS 30 Days Qty: 90 nitroglycerin 0.4 mg tablet, sublingual 0.4 mg SUBLINGUAL Q5M PRN (Reason: Chest Pain) Qty: 25 3RF Rx Instructions: Place one tab under tongue every 5 minutes x 3 doses as needed clonazepam 1 mg tablet 1 mg PO TID hydroxyzine HCl 25 mg tablet 25 mg PO TID Qty: 90 0RF mirtazapine 15 mg tablet 15 mg PO QHS Qty: 30 0RF omeprazole 20 MG capsule 20 mg PO DAILY albuterol sulfate 1 PUFF inhaler 1 puff INHALATION Q6H PRN (Reason: Sob &/Or Wheezing) (DME) nebulizer and compressor Device See Rx Instructions .Route Qty: 1 0RF Rx Instructions: As directed sertraline 100 mg tablet 150 mg PO DAILY clopidogrel 75 mg Tablet 75 mg PO DAILY Qty: 90 3RF prazosin 2 mg capsule 2 mg PO QHS ipratropium-albuterol 0.5 mg-3 mg(2.5 mg base)/3 mL solution for nebulization 3 ml INHALATION Q4H PRN (Reason: shortness of breath or wheezing) Qty: 180 3RF metoprolol succinate 25 mg tablet extended release 24 hr 12.5 mg PO DAILY Qty: 45 3RF Primary Care Provider: Phani Odom Referrals: Phani Odom MD [Primary Care Provider] - Activity Restrictions/Additional Instructions: Today there were no signs of heart attack. You have significant history of heart disease and I recommend you follow-up with your style advisor. There is also an abnormal consolidation in your right lung on the CT scan. Please see your oncologist for follow-up with your history of cancer this needs further evaluation. Disposition Disposition: Against Medical Advice Discharge Date/Time: 01/12/24 18:10
[2024-01-12 13:57] LABS: Absolute Neutrophil Count 2.9 X10^3/uL (2.0-7.7); Basophil# 0.04 X10^3/uL; Basophil% 0.7 % (0-1); Eosinophil# 0.11 X10^3/uL; Hematocrit 30.9 % (37-47); Hemoglobin 9.6 g/dL (12.0-15.0); Lymphocyte % 33.3 % (19-41); Mean Corp Hgb Conc 31.1 g/dL (32-36); Mean Corpuscular Hgb 23.3 pg (27.0-32.0); Mean Platelet Vol. 9.9 fl (6.2-12.0); Monocyte# 0.58 X10^3/uL; Monocyte% 10.7 % (0-10); NRBC Flagged by Analyzer 0 % (0-5); Neutrophil # 2.85 X10^3/uL (2.7-7.7); Neutrophil % 52.7 % (47-70); Platelet Count 237 K/mm3 (150-450); RBC Distribution Width CV 17.5 % (11.6-14.6); RBC Distribution Width SD 47.6 fl (35.1-43.9); Red Blood Count 4.12 M/mm3 (4.2-5.4); White Blood Count 5.4 K/mm3 (4.4-11.0)
[2024-01-12] MEDS: 0.9% Normal Saline (1000mL) 1,000 ML 999 ML IV (14:12)
[2024-01-12] MEDS: Morphine 4 MG/ML Syringe IV ×2 (14:12→16:23)
[2024-01-12] MEDS: Ondansetron 4 MG/2 ML Vial IV (14:12)
[2024-01-12 14:14] LABS: Anion Gap 9 (5-15); BUN 10 mg/dL (7-18); BUN/Creat Ratio 9.5 RATIO (10-20); Calcium,Total 8.8 mg/dL (8.5-10.1); Chloride 102 mmol/L (98-107); Creatinine, Serum 1.05 mg/dL (0.55-1.02); EST Glomerular Filtration Rate 56 mL/min (>60); Est Glom Filt Rate - Afr Amer 67 mL/min (>60); Glucose 116 mg/dL (74-106); Sodium Level 136 mmol/L (136-145); Troponin-I HS (w/2H Reflex) 19 pg/mL (3.0-54.0)
--- NOTE | 2024-01-12 14:20 | RAD_ITS ---
INDICATION: chest pain EXAMINATION/TECHNIQUE: X-RAY - XR Chest 1 View COMPARISON: Prior study dated: 06/09/[address] scan the chest of 07/28/2022 FINDINGS: LINES/DEVICES: None. LUNGS: Focal pleural-based right midlung density measuring about 3.5 cm slightly denser than the previous exam. MEDIASTINUM AND CARDIOVASCULAR STRUCTURES: Status post median sternotomy. BONES AND SOFT TISSUES: No demonstrated acute osseous changes. RAD/Chest 1 View (Portable) IMPRESSION: Persistent opacity in the right midlung zone laterally slightly denser than the previous exam. Further evaluation with CT scan of the chest is recommended. Electronically Signed: Sher Longoria MD at 14:47 EST ,
[2024-01-12 15:51] LABS: Reflex Troponin-HS? (from REC) Y
--- NOTE | 2024-01-12 16:04 | CT_ITS ---
INDICATION: abnormal cxr EXAMINATION: CT CHEST WITHOUT CONTRAST - CT Chest W/O Contrast Injection TECHNIQUE: Helically acquired images were obtained of the chest. A radiation dose optimization technique was used for this scan. IV Contrast dosage and agent: None. COMPARISON: July 28, 2022 FINDINGS: LUNGS, PLEURA AND LARGE AIRWAYS: There is calcific pleural plaquing along the right lateral chest wall in association with focal parenchymal density. There is also a small patchy area of groundglass opacity in association with mild interstitial thickening in the the posterior medial aspect of the right upper lobe. . No pneumothorax. THYROID: No thyroid lesions. HEART AND PERICARDIUM: Heart is enlarged.. No pericardial effusion. CORONARY ARTERIES: Postop change status post median sternotomy and CABG VESSELS: Atherosclerotic changes of the aorta without evidence for aneurysm. MEDIASTINUM AND MADHURI: No mediastinal or hilar adenopathy. Esophagus is unremarkable. Small hiatal hernia is noted. UPPER ABDOMEN: Tiny nonobstructing right renal calculus. Status post cholecystectomy.. BONES: Dorsal spine demonstrates mild degenerative change No suspicious lytic or blastic abnormality. The pleural thickening has increased as has the adjacent lung consolidation since prior study and the patchy groundglass density is new finding since prior exam of indeterminate etiology. Neoplastic change is not excluded. Clinical correlation is recommended CT/Chest without Contrast IMPRESSION: Interval increase in calcific pleural plaquing and adjacent focal consolidation since prior exam of indeterminate etiology possibly inflammatory although cannot exclude evolving neoplasm Electronically Signed: Reji Medina MD at 17:12 EST ,
[2024-01-12 16:57] LABS: Troponin-I HS 25 pg/mL (3.0-54.0)
--- OUTSIDE RECORDS SUMMARY | 2024-01-12 19:44 | XMS RPT_ITS | CCD ---
Author Name Unknown Address [address] [place] [address] Organization [facility] Care Team Providers Care Defensive Line Coach Name Role Phone REFERRING, PIPPA AGUILAR Unavailable Unavailable RADHA ODOM Unavailable Unavailable ARLIN CABEZAS Unavailable Unavailable RADHA ODOM Unavailable Unavailable HANNAH HERNANDES Attending Unavailable RADHA ESCAMILLA Attending Unava ilable Radha Odom Primary Care Provider [phone] Radha Odom Primary Care Provider Radha Odom Primary Care Provider [phone] Chloe MOREL, Shawnee Unavailable Unavailable Allergies Allergy Classification Reported Allergen(s) Allergy Type Date of Onset Reaction(s) Facility (1 source) Contrast media; Translations: [CONTRAST DYE] Propensity to adverse reactions to drug (disorder) 7 [facility] Repository (1 source) Naproxen; Translations: [NAPROXEN] Drug Allergy 8 [facility] Repository (1 source) Tetracyclines; Translations: [TETRACYCLINES] Propensity to adverse reactions to drug (disorder) 7 [facility] Repository (2 sources) atorvastatin Drug Allergy 1 Other (See Comments) [facility] Work Phone: (2 sources) Pravastatin Drug Allergy 1 Other (See Comments) [facility] Work Phone: (2 sources) strawberry allergenic extract Drug Allergy 1 Hives [facility] Work Phone: (2 sources) Iodides Propensity to adverse reactions to drug 1 [facility] Work Phone: (2 sources) Tetracyclines & Related Propensity to adverse reactions to drug 1 Hives [facility] Work Phone: Medications Current Medications Medication Drug Class(es) Dates Sig (Normalized) Sig (Original) acetaminophen 500 mg oral tablet (2 sources) Start: 01-28-2021 End: 01-28-2021 acetaminophen (TYLENOL) tablet 1,000 mg acetaminophen 325 mg / oxyCODONE hydrochloride 5 mg oral tablet (1 source) Opioid Agonist Start: 01-28-2021 End: 02-04-2021 take 1 tablet by mouth every six hours as needed for pain, then take 1 tablet by mouth as needed for pain oxyCODONE-acetamin ophen (PERCOCET) 5-325 MG per tablet Indications: Right upper lobe pulmonary nodule Take 1 tablet by mouth every 6 hours as needed for Pain for up to 7 days. Intended supply: 7 days. Take lowest dose possible to manage pain 28 tablet 0 01/28/2021 02/04/2021 Active Albuterol (2 sources) beta2-Adrenergic Agonist take 1 puff(s) by inhalation every six hours as needed ALBUTEROL IN Inhale into the lungs 1 puff q6h INHALATION PRN 0 Active albuterol 0.833 mg/ml / ipratropium bromide 0.167 mg/ml inhalant solution (1 source) Anticholinergic, beta2-Adrenergic Agonist Start: 01-28-2021 1 ampule, Inhalation, 4 TIMES DAILY, First dose on Tue01/28/21 at 2000 budesonide 0.5 mg/ml inhalant solution (3 sources) Corticosteroid Start: 01-28-2021 take 1 mg by mouth twice daily 1 mg, Nebulization, 2 TIMES DAILY, First dose on Tue01/28/21 at 1430 Rinse mouth out with water (without swallowing) after every dose. Completed/Discontinued Medications Medication Drug Class(es) Dates Sig (Normalized) Sig (Original) calcium chloride 0.0014 meq/ml / potassium chloride 0.004 meq/ml / sodium chloride 0.103 meq/ml / sodium lactate 0.028 meq/ml injectable solution (2 sources) Start: 01-28-2021 End: 01-29-2021 Intravenous, at 75 mL/hr, CONTINUOUS, Starting 01/28/21 at 2000 Problems Active Problems Problem Classification Problem Date Documented Date Episodic/Chronic Cancer of bronchus; lung (1 source) Primary adenocarcinoma of upper lobe of right lung; Translations: [Malignant neoplasm of upper lobe, right bronchus or lung] Onset: 02-04-2021 08-19-2022 Chronic Other lower respiratory disease (1 source) Lung mass; Translations: [Mass of upper lobe of right lung] Episodic Other lower respiratory disease (1 source) Dyspnea; Translations: [Shortness of breath] Episodic Other nervous system disorders (1 source) Other chronic pain; Translations: [Other chronic pain] Onset: 09-25-2018 Chronic Spondylosis; intervertebral disc disorders; other back problems (3 sources) Lumbago with sciatica, left side; Translations: [Lumbago with sciatica, right side] Onset: 09-25-2018 Episodic Unclassified (1 source) Unknown / UNK(Unknown) Onset: 05-05-2017 Unclassified (1 source) Patient encounter status; Translations: [Pre-op testing] Past or Other Problems Problem Classification Problem Date Documented Da te Episodic/Chronic Other lower respiratory disease (3 sources) Solitary pulmonary nodule; Translations: [Nodule of lung] Onset: 01-28-2021 01-28-2021 Episodic Unclassified (1 source) LUMBAR PAIN Onset: 05-05-2017 Results Test Name Value Interpretation Reference Range Facil ity Vital Signs Date Time Vital Sign Value Performing Clinician Ned carlos 01-31-2021 08:53-0400 Body Temperature 97.2 [degF] Victor M HORN Work Phone: 01-31-2021 08:53-0400 BP Diastolic 89 mm[Hg] Victor M HORNEA Work Phone: 01-31-2021 08:53-0400 BP Systolic 153 mm[Hg] Victor M HORNEA Work Phone: 01-31-2021 08:53-0400 Pulse (Heart Rate) 68 /min Victor Mpardeep Felizcarlos COLEENA Work Phone: 01-31-2021 08:53-0400 Pulse Oximetry 95 % Victor M HORN Work Phone: 01-31-2021 08:53-0400 Respiratory Rate 14 /min Victor M HORNEA Work Phone: 01-30-2021 06:00-0400 BMI (Body Mass Index) 23.46 kg/m2 Victor M HORNEA Work Phone: 01-30-2021 06:00-0400 Body weight 62 kg Victor M HORN Work Phone: 01-28-2021 09:23-0400 Height 162.6 cm Victor M OHRNEA Work Phone: 01-26-2021 13:55-0400 BMI (Body Mass Index) 25.4 kg/m2 Victor M HORN Work Phone: 01-26-2021 13:55-0400 Body Temperature 97.11 [degF] Victor M HORN Work Phone: 01-26-2021 13:55-0400 Body weight 67.13 kg Victor M HORN Work Phone: 01-26-2021 13:55-0400 BP Diastolic 78 mm[Hg] Victor M HORN Work Phone: 01-26-2021 13:55-0400 BP Systolic 128 mm[Hg] Victor M HORN Work Phone: 01-26-2021 13:55-0400 Height 162.6 cm Victor M HORN Work Phone: 01-26-2021 13:55-0400 Pulse (Heart Rate) 60 /min Victor M HORNEA Work Phone: 01-26-2021 13:55-0400 Pulse Oximetry 98 % Victor M HORNEA Work Phone: 01-26-2021 13:55-0400 Respiratory Rate 16 /min Victor M HORN Work Phone: Encounters Encounter Date Encounter Type Care Provider Facility Start: 01-23-2023 ambulatory Shawnee Corona RN [facility] Procedures Date Procedure Procedure Detail Performing Clinician Start: 01-31-2021 Radiologic exam ches t single view Rashida Shabazz Work Phone: Start: 01-31-2021 BASIC METABOLIC PANE L W/ REFLEX TO MG FOR LOW K Rashida Shabazz Work Phone: Start: 01-31-2021 Blood count complete auto&auto difrntl wbc Rashida Shabazz Work Phone: Start: 01-30-2021 Radiologic exam ches t single view Rashida Shabazz Work Phone: Start: 01-30-2021 BASIC METABOLIC PANE L W/ REFLEX TO MG FOR LOW K Rashida Shabazz Work Phone: Start: 01-30-2021 Blood count complete auto&auto difrntl wbc Rashida Shabazz Work Phone: Start: 01-29-2021 Radiologic exam ches t single view Rashida Shabazz Work Phone: Start: 01-29-2021 BASIC METABOLIC PANE L W/ REFLEX TO MG FOR LOW K Rashida Shabazz Work Phone: Start: 01-29-2021 Blood count complete auto&auto difrntl wbc Rashida Shabazz Work Phone: Start: 01-28-2021 OPERATIVE REPORT 3m Sca nning Start: 01-28-2021 Radiologic exam ches t single view Rashida Shabazz Work Phone: Start: 01-26-2021 Radiologic exam ches t 2 views Nov Barclay Work Phone: Start: 01-26-2021 Blood count complete auto&auto difrntl wbc Nov Work Phone: Start: 01-26-2021 Blood typing serologic abo Nov Work Phone: Start: 01-26-2021 Comprehensive metabo lic panel Nov Work Phone: Start: 01-26-2021 Prothrombin time Florentin Damon ird Work Phone: Start: 01-26-2021 COVID-19 Florentin Barclay Work Phone: Start: 01-26-2021 Urnls dip stick/tabl et rgnt auto w/o microscopy Florentin Barclay Work Phone: Start: 01-26-2021 Ecg routine ecg w/le ast 12 lds w/i&r Florentin Barclay Work Phone: Plan of Treatment Date Care Activity Detail Author Start: 07-08-2023 Influenza vaccination Influenza Vacc ine (#1) [facility] Start: 01-31-2022 Creatinine measurement Creatinine mo nitoring [facility] Work Phone: Start: 01-31-2022 Potassium monitoring Potassium monit oring [facility] Work Phone: Start: 01-26-2022 Creatinine measurement Creatinine mo nitoring [facility] Work Phone: Start: 01-26-2022 Potassium monitoring Potassium monit oring [facility] Work Phone: Start: 02-13-2021 COVID-19 Vaccine (2 - Moderna 2-dose series) COVID-19 Vaccine (2 - Moderna 2-dose series) [facility] Work Phone: Start: 01-28-2021 Hospital Encounter 01/28/2021 Hospital Encounter General Surgery Victor M Mendenhall MD [address] [place] [address] [facility] General Surgery Start: 12-31-2020 Annual Wellness Visi t (AWV) Annual Wellness Visit (AWV) [facility] Work Phone: Start: 08-05-2020 Shingles Vaccine (2 of 2) Cline gles Vaccine (2 of 2) [facility] Work Phone: Start: 2007 Screening for malign ant neoplasm of breast Breast cancer screen [facility] Work Phone: Start: 2007 Screening for malign ant neoplasm of colon Colon cancer screen colonoscopy [facility] Work Phone: Start: 2007 Zoster Vaccines (1 of 2) Zoster Vacc milo (1 of 2) [facility] Start: 1997 Diabetes screen Diabetes screen [facility] Work Phone: Start: 1997 Lipid panel [facility] Work Phone: Start: 1997 Screening for malign ant neoplasm of breast Mammogram [facility] Start: 1978 Screening for malign ant neoplasm of cervix Cervical cancer screen [facility] Work Phone: Start: 1976 DTaP/Tdap/Td vaccine (1 - Tdap) DTaP/Tdap/Td vaccine (1 - Tdap) [facility] Work Phone: Start: 1976 DTaP/Tdap/Td Vaccine s (1 - Tdap) DTaP/Tdap/Td Vaccines (1 - Tdap) [facility] Start: 1975 Diabetes mellitus screening Diabetes Screening [facility] Start: 1975 Hepatitis C screening Hepatitis C Sc reening [facility] Start: 1972 HIV screening HIV screen [facility] Work Phone: Start: 1969 Depression Screening Depression Scre ening [facility] Start: 1963 Pneumococcal Vaccine : 65+ Years (1 - PCV) Pneumococcal Vaccine: 65+ Years (1 - PCV) [facility] Start: 1957 COVID-19 Vaccine (#1) COVID-19 Vacci ne (#1) [facility] Start: 1957 Hepatitis C screening Hepatitis C sc reen [facility] Work Phone: Start: 1957 Lipid panel Lipid Panel [facility] Start: 1957 Screening for malign ant neoplasm of colon [facility] Start: 1957 Screening for osteoporosis Bone Density Scan [facility] Acapella Acapella Respira tory Care Routine Daily until discontinued starting 01/28/2021 [facility] Work Phone: Payers Date Payer Category Payer Medicare BCBS MEDICARE AN THEM MEDIBLUE ESSENTIAL/PLUS [id number] 2020-Present [address] [address] [place] [address] [id number] 2015 Unknown [id number] Social History Date Type Detail Facility Start: 01-26-2021 End: 01-30-2021 Tobacco smoking status MNIS Current every day smoker [employer] Phone: End: 01-31-2021 History of tobacco use Cigarette Smoker [employer] Phone: Start: 01-26-2021 End: 10-26-2022 Cigarettes smoked current (pack per day) - Reported [facility] Phone: Start: 01-26-2021 End: 01-30-2021 Tobacco use and exposure Never used [facility] Phone: Start: 01-26-2021 End: 10-26-2022 Alcohol intake Ex-drinker (finding) [facility] Phone: Start: 01-06-2021 History SDOH Alcohol Frequency 1 [employer] Phone: Start: 1955 Sex Assigned At Not on file [facility] Work Phone: Exposure to SARS-CoV -2 (event) Not sure [employer] Phone: Tobacco smoking stat [facility] Ex-smoker [facility] End: 01-31-2021 History of tobacco use Current smoker [employer] Start: 10-26-2022 Tobacco use panel [facility] [employer] History of Present illness Narrative 01-23-2023 Shawnee Corona RN - 01/23/2023 3:58 PM EDT Note Date & Type Note Facility 01-23-2023 History of Presen t illness Narrative Chart reviewed for surveillance purposes by Thoracic/Head & Neck Merchandise Appraiser. Patient undergoing surveillance at [facility] documented in this encounter [facility] Summary Purpose Family History No Family History Records FoundNo Family History Records FoundNo Family History Records FoundNo Family History Records FoundNo Family History Records FoundNo Family History Records FoundNo Family History Records FoundNo Family History Records Found Advance Directives Latest Code Status on File Code Status Date Activated Date Inactivated Comments Full Code 01/28/2021 7:38 PM Full Code 01/28/2021 9:18 AM 01/28/2021 1:42 PM Procedure Findings Note Operative Note (Enc) (GENSWS ) Progress Notes: Angel Katz MD 10/27/2019 1:44 PM Signed OPERATIVE NOTATION FOR [facility] SURGICAL PROCEDURE. October 18, 2019 Haleigh Lima Willieangeljodie 1955 [id number] female PROCEDURE: EGD WITH BIOPSY - [id number] and COLONOSCOPY - [id number] SURGEON: Marysol Katz M.D. FACS BOTTOM BRUSHER: None DEPT: W PROVIDER: [id number] Katz MD POS: [id number] DIAGNOSIS: (R19.5) Heme positive stool (primary encounter diagnosis) (R11.0) Nausea (Z80.0) Family history of colon cancer ASA CLASS: 3 - Severe FINDINGS: COMPLICATIONS: None PMHx - PAST MEDICAL HISTORY Diagnosis Date - Adjustment disorder with depressed mood - Chronic airway obstruction, not elsewhere classified - Coronary artery disease - Coronary atherosclerosis of unspecified type of vessel, [place] or graft - Dyslipidemia - Esophageal reflux Gastroesophageal reflux - Malignant melanoma of skin of upper cantu (more content not included)... Note Attestation signed by Victor M Mendenhall MD at 02/01/2021 12:35 PM I independently saw and evaluated the patient - including reviewing the labs, imaging studies, and available documentation. I agree with the findings and plan of care as documented by the resident/WARP PLACER/OPERATING THEATRE TECHNICIAN/PA, unless otherwise noted. Please do not hesitate to contact me/us if you have any questions or concerns. Victor M Mendenhall MD FACS Discharge Summary Haleigh Almeida : 1955 Age: 65 y.o. ADMIT DATE: 01/28/2021 DISCHARGE DATE: 01/31/2021 DISCHARGING SURGEON: Victor M Mendenhall MD Office Number: [phone] PRIMARY CARE PHYSICIAN: Radha Odom VISIT STATUS: Admission CODE STATUS: Prior DISCHARGE DIAGNOSES: 1. Right upper lobe lung adenocarcinoma 2. Hx HTN 3. Hx COPD 4. Hx HOWARD 5. Hx CAD 6. Hx Tobacco abuse Body mass index is 23.46 kg/m?. BMI Classi (more content not included)... Reason for Referral Status Reason Specialty Diagnoses / Procedures Referre d By Contact Referred To Contact [facility] Diagnoses Mass of upper lobe of right lung Pre-op testing Procedures EKG 12 lead Florentin Barclay APRN - WARP PLACER [address] [address] Discharge Instructions * Instructions* Dafne Payton RN - 01/26/2021 PLEASE, DO NOT SMOKE OR USE TOBACCO PRODUCTS ON THE DAY OF YOUR SURGERY. THIS COULD RESULT IN YOUR SURGERY BEING CANCELED. Please bring your [employer] [employer] Surgical Information folder on the day of surgery. Please bobbi the last dose taken (date and time ) on your Daily Medications List provided in your After Visit Summary. Please bring a photo ID and insurance information Do NOT take the following medications on the morning of surgery:FUROSEMIDE, LISINOPRIL TAKE the following medications the morning of your surgery: BUSPIRONE, METOPROLOL, OMEPRAZOLE, SERTRALINE, ASPIRIN You may take Tylenol (Acetaminophen) if needed for pain. No Motrin, Ibuprofen, or Advil 24 hours prior to surgery, or longer if instructed by your surgeon. No Aleve or Naprosyn prior to surgery, or longer if instructed by your surgeon. If you are on BLOOD THINNERS OR ASPIRIN: HOLD PLAVIX INSTRUCTED BY YOUR PHYSICIAN, CONTINUE ASPIRIN 81MG Additional instructions: SHOWER/BATHE WITH ANTIBACTERIAL SOAP DAY OF SURGERY You will receive a reminder call the day before surgery with your Same Day Surgery arrival time. If you have specific questions, please call your surgeon. ARRIVE AT 0900 AM ENTER AT MAIN ENTRANCE, TAKE THE H ELEVATOR TO THE FIRST FLOOR, TURN LEFT OFF THE ELEVATOR AND GO TO THE SAME DAY SURGERY REGISTRATION DESK TO CHECK IN * Attachments The following attachments cannot be sent through Care Everywhere. * VATS (Video-Assisted Thoracoscopic Surgery): Pre-op (Welsh) * VATS (Video-Assisted Thoracoscopic Surgery): Post-op (Welsh) documented in this encounter* Instructions* Rashida Shabazz MD - 01/28/2021 Images from the original note were not included. [facility]: Cardiothoracic Surgery [address] [facility] (T): #[phone] (F): #[phone] After lung surgery, it is common to feel tired up to 6 to 8 weeks. Your chest may hurt and or be swollen for up to 6 weeks. It can also ache or feel stiff for up to 3 months. It is not uncommon to have tightness, itching, numbness, or tingling around the incision for up to 3 months. You may feel short of breath at first after the surgery. It is important to continue the deep-breathing and coughing exercises that you were taught in the hospital at home during your recovery. This helps your body get as much oxygen as possible. The amount of time you will need to recover depends on the surgery you had. You probably will need to take at least 1 to 2 months off work dependent on the work you do. Your Recovery: Activity, Diet, Incisional Care and Exercise Rest when you feel tired. Getting enough sleep will help you recover. Try to walk each day. Start by walking a little more than you did the day before, increasing the amount you walk. Walking boosts blood flow and helps prevent pneumonia and constipation. Do not smoke or allow others to smoke around you. If you need help quitting, talk to your provider about stop-smoking programs and medicines. These can increase your chances of quitting for good. Try to avoid being around people who you know have a cold, the flu, or other illness. Avoid strenuous activities, such as bicycle riding, jogging, weight lifting, or aerobic exercise for at least 4 weeks. Also avoid swimming, tennis, golf, or other activities that could strain your arm and shoulder muscles, during this time. Initial weight restriction is 10lbs for 2 weeks, avoid lifting anything that would make you strain.This may include a child, heavy grocery bags and milk containers, a heavy briefcase or backpack, cat litter or dog food bags, or a vacuum bladder cleaner. If your incision is in the front or the side of your chest, hold a pillow over the incision when you cough or take deep breaths. This will support your chest and decrease your pain. No driving for 2 weeks. This is because your arm and shoulder muscles may be stiff after surgery and could make it difficult to steer. You must also be off all narcotic and sedative medications priorto returning to driving. Ok to shower. Avoid any baths or hot-tubs for 3 weeks. Wash you incision daily with warm, soapy water, and pat it dry. Do not scrub your incision(s). Do not apply any lotions or powders, hydrogen peroxide or alcohol on your incision(s). You may cover the area with a gauze bandage if it weeps or rubs against your clothing. Keep the area clean and dry. Diet: You can eat your normal diet. If your stomach is upset, try bland, low-fat foods like plain rice, broiled chicken, toast, and yogurt. Drink plenty of fluids. You may notice that your bowel movements are not regular right after your surgery. This is common. Try to avoid constipation and straining with bowel movements. You may take an over the counter stool softener as needed. If your incision has susanna, these will be removed at your follow-up visit 10- 14 days with your provider. Also, sutures from drains/tubes will be removed at this time. Continue to follow discharge stretching exercises outlined below. Start each exercise slowly. Ease off the exercises if you start to have pain. Shoulder Stretch 1. casting machine control board operator a doorway and place one arm against the door frame. Your elbow should be a little higher than your shoulder. 2. Relax your shoulders as you lean forward, allowing your chest and shoulder muscles to stretch. You can also turn your body slightly away from your arm to stretch the muscles even more. 3. Hold for 15 to 30 seconds. 4. Repeat 2 to 4 times with each arm. Shoulder and Chest Stretch 1. While sitting, relax your upper body so you slump slightly in your chair. 2. As you breathe in, straighten your back and open your arms out to the sides. 3. Gently pull your shoulder blades back and downward. 4. Hold for 15 to 30 seconds as your breathe normally. 5. Repeat 2 to 4 times. Overhead stretch 1. Reach up over your head with both arms. 2. Hold for 15 to 30 seconds. 3. Repeat 2 to 4 times. Acute post operative pain management: -Continue to use narcotic/opioid analgesic medication prescribed on discharge from the hospital. Ifyou are prescribed oxycodone/acetaminophen (Percocet) or hydrocodone/acetaminophen ([place]/Vicodin) be cautious when taking additional tylenol. No driving or operating heavy machinery while taking a narcotic/opioid analgesic medication. -Tylenol (acetaminophen) 500 mg 1-2 tablets every 6 hours. No more than 4 grams in 24 hour period. Tylenol is not recommended with liver disorders. -Motrin (ibuprofen) 200-400 mg by mouth every 4-6 hours (or) 600-800mg every 8 hours as needed if not contraindicated. Ibuprofen is not recommended with renal disorders or if you are taking Warfarin (coumadin/jantoven). Maximum dose 3,200 mg per day. -Over the counter pain patches called Salon pas may used as needed next to incision but not on yourincision. -Ice packs applied for 20 minutes then off for at least 20 minutes before reapplying. Call your Surgeon or return to the Emergency Room if you experience: -New or increased pain. -New or increased bleeding. -Nausea & vomiting. -Fever & chills. -Shortness of breath. -Chest pain. -Abdominal distention. documented in this encounter Assessments Diagnosis Mass of upper lobe of right lung Pre-op testing Preoperative examination, unspecified Shortness of breath Shortness of breath Diagnosis Right upper lobe pulmonary nodule- Primary History of Present Illness * Danuta Krishnamurthy RN - 01/30/2021 4:21 PM EDT Report called to Orquidea MOREL on H6. Patient's daughter Shira called with update regarding room change as well. Will continue to monitor patient until transport is available. * Selma Ashton - 01/30/2021 2:27 PM EDT Nutrition rescreen completed. Chart reviewed. Patient to be monitored and followed by the diet cardiopulmonary technician and eeg tech. GARETH Tirado * Brett Luz - 01/30/2021 11:15 AM EDT Physical Therapy Facility/Department: [facility] Initial Assessment NAME: Haleigh Almeida : 1955 Date of Service: 01/30/2021 Discharge Recommendations: Home with assist PRN, Outpatient PT PT Equipment Recommendations Equipment Needed: No Assessment Body structures, Functions, Activity limitations: Decreased endurance Assessment: Pt. displays independence with all functional mobility required to return home safely. Pt. displays independence with bed mobility, transfers, and ambulation of 100 ft. Pt. reported increased fatigue and SOB with ambulation. From a mobility perspective, recommend discharge home with assist PRN and outpatient PT services to improve endurance and ability to tolerate community based activities. Treatment Diagnosis: Reduced Endurance Prognosis: Good Decision Making: Low Complexity PT Education: PT Role;General Safety;Plan of Care;Home Exercise Program Patient Education: Pt. educated on proper performance of P&C exerises. No Skilled PT: Independent with functional mobility REQUIRES PT FOLLOW UP: No Activity Tolerance Activity Tolerance: Patient limited by fatigue;Patient limited by endurance Patient Diagnosis(es): The encounter diagnosis was Right upper lobe pulmonary nodule. has a past medical history of Atherosclerotic heart disease, Chest pain, COPD (chronic obstructive pulmonary disease) (HCC), DDD (degenerative disc disease), cervical, Essential hypertension, HOWARD (obstructive sleep apnea), Osteoarthritis, Pericardial effusion, PONV (postoperative nausea and vomiting), Premature ventricular contraction, Pulmonary nodules, and Tobacco abuse. has a past surgical history that includes Coronary angioplasty with stent; Abdomen surgery; Small intestine surgery; Cataract removal; Cholecystectomy; Hysterectomy; Appendectomy; Coronary artery bypass graft (05/12/2004); Tonsillectomy; and Stimulator Surgery (Right, 12/26/2018). Restrictions Restrictions/Precautions Restrictions/Precautions: (No precautions or restrictions present) Required Braces or Orthoses?: No Vision/Hearing Vision: Within Functional Limits Hearing: Within functional limits Subjective General Chart Reviewed: Yes Patient assessed for rehabilitation services?: Yes Response To Previous Treatment: Not applicable Family / Caregiver Present: No Diagnosis: s/p R thoracotomy with R upper lobe wedge biopsy Follows Commands: Within Functional Limits General Comment Comments: Medical Equipment in Use: Telemetry, chest tube Subjective Subjective: Pt. is pleasant and agreeable for PT evaluation. Pt. reports no pain upon entry. Pt. reports independence with all ADL's and home mobility prior to admission. Pain Screening Patient Currently in Pain: Denies Vital Signs Patient Currently in Pain: Denies Orientation Orientation Overall Orientation Status: Within Functional Limits Social/Functional History Social/Functional History Lives With: Spouse Type of Home: Trailer Home Layout: One level Home Access: Ramped entrance Bathroom Shower/Tub: Tub/Shower unit Bathroom Toilet: Standard Bathroom Equipment: Grab bars in shower, Shower chair Receives Help From: Family ADL Assistance: Independent Homemaking Assistance: Independent Homemaking Responsibilities: Yes Ambulation Assistance: Independent Transfer Assistance: Independent Active Body Wirer: Yes Mode of Transportation: Car Cognition Cognition Overall Cognitive Status: WFL Objective Observation/Palpation Posture: Good Observation: Observed moisture on pt.'s gown and bed sheets upon sitting. Nurse notified and changed sheets and dressings around chest tube and incision site. AROM RLE (degrees) RLE AROM: WFL AROM LLE (degrees) LLE AROM : WFL AROM RUE (degrees) RUE AROM : WFL AROM LUE (degrees) LUE AROM : WFL Strength RLE Strength RLE: WFL Comment: Hip flexion 4+/5, knee extension: 5/5, knee flexion: 4/5, ankle DF/PF: 5/5 Strength LLE Strength LLE: WFL Comment: Hip flexion 4+/5, knee extension: 5/5, knee flexion: 4/5, ankle DF/PF: 5/5 Strength RUE Comment: Deferred to OT Strength LUE Comment: Deferred to OT Sensation Overall Sensation Status: (Pt. denies sensory disturbance and paresthesia in bilateraly LE's.) Bed mobility Rolling to Left: Independent Supine to Sit: Independent Comment: Pt. was able to perform all bed mobility without diffculty. Pt. did not require use of bedrails to perform supine to sit at EOB. Transfers Sit to Stand: Independent Stand to sit: Independent Comment: Pt. performed sit-stand and stand-sit transfers safely without difficulty. Ambulation Ambulation?: Yes WB Status: No WBing restrictions present. More Ambulation?: No Ambulation 1 Surface: level tile Device: No Device Assistance: Independent Quality of Gait: Pt. displayed slightly reduced ambulation speed. Pt. began to report SOB and fatigue towards the end of ambulation assessment but did not show any outward signs of dyspnea or laboredbreathing. Distance: 100 ft. Stairs/Curb Stairs?: No(Did not negotiate stairs this date as pt. does not have stairs to negotiate at home.) Balance Posture: Fair Sitting - Static: Good;+ Sitting - Dynamic: Good;+ Standing - Static: Good Standing - Dynamic: Good Romberg/Narrow Base of Support Eyes Open: 30 seconds(Pt. displayed no significant LOB or concerns for falling during rhomberg stance with eyes open) Sway: Minimal Strategy: Ankle Plan Plan Plan Comment: PT disch. Safety Devices Type of devices: Left in chair, Call light within reach Restraints Initially in place: No AM-PAC Score AM-PAC Inpatient Mobility Raw Score : 21 (01/30/211046) AM-PAC Inpatient T-Scale Score : 50.25 (01/30/211046) Mobility Inpatient CMS 0-100% Score: 28.97 (01/30/211046) Mobility Inpatient CMS G-Code Modifier : CJ (01/30/211046) Goals Therapy Time Individual Concurrent Group Co-treatment Time In 1017 Time Out 1041 Minutes 24 SPT wore N-95 mask and goggles during initial evaluation. Brett Luz SPT Associated attestation - Rui Liao, PT - 01/30/2021 1:13 PM EDT Gait does not require skill of PT; encourage OOB with staff and will place on list for mobility aide. * Celia Prado, EGG PACKER - SHELTER CASE MANAGER - 01/30/2021 7:54 AM EDT PAGING: The Acute Pain Service providers are available via [employer]. Please reference [employer] for Pain Management Provider NURSE ADVOCATE and direct all questions to the provider listed. Due to the current environment of [place] [id number], PPE was worn for the duration of all face to face encounters including but not limited to an N95 in accordance with [facility] and hospital guidelines. 01/30/2021 Referring Physician: Victor M Mendenhall MD Subjective: We have been asked to see this 65 y.o. female for postoperative pain management s/p Procedure 01/28/21: 1. Right VATS with right upper lobe wedge biopsy 2. Mediastinal lymph node dissection Pt reports h/o right mid lung mass detected on imaging. Reports completing annual CT lung screening. Completed further biopsy and PET scan. Per chart review biopsy was inconclusive. Reports she was experiencing worsening GARRISON over the last 5-6 months not relieved with inhalers NAEON, no pages. On arrival, pt sitting up in bed. A&Ox3. Pt appears well, comfortable. Pt talkative and cooperative throughout exam, happy with current pain regimen. Pt states pain has been well controlled with oxycodone. Tolerating PO, denies nausea/vomiting. PMH reviewed below, significant for: tobacco abuse, osteoarthritis, DDD, HOWARD Pain Severity: mild Pain Frequency: intermittent Pain Location: CT site R chest Pain Radiation: nonradiating Pain Quality: sharp and tender Adverse effect to opioids: none Sedation score: 1: Awake and alert Timing: Intermittent Onset: : Post surgical. Aggravating Factors: Coughing Alleviating Factors: Rest Bowel status: No BM, + Flatus Social History Tobacco Use Smoking Status Current Every Day Smoker Packs/day: 0.50 Years: 50.00 Pack years: 25.00 Types: Cigarettes Smokeless Tobacco Never Used Social History Substance and Sexual Activity Alcohol Use Not Currently Frequency: Never Social History Substance and Sexual Activity Drug Use Never Pain Management: n/a The patient's medical history and physical assessment, medications, allergies, patient's current medical condition, imaging, and labs were reviewed as part of this consultation. [x] Patient's Medications have been reviewed. [x] Patient's OARRS report (PDMP) have been reviewed. ORS 310 Fill Date ID Written Drug Qty Days 07/28/2020 2 07/28/2020 Oxycodone-Acetaminophen 5-325 18.00 3 04/19/2020 2 04/17/2020 Hydromorphone 2 MG Tablet 115.00 28 04/18/2020 2 04/17/2020 Cyclobenzaprine 10 MG Tablet 90.00 30 03/18/2020 2 02/21/2020 Hydromorphone 2 MG Tablet 90.00 30 03/18/2020 2 02/21/2020 Cyclobenzaprine 10 MG Tablet 90.00 30 02/15/2020 2 02/14/2020 Hydromorphone 2 MG Tablet 90.00 30 02/15/2020 2 02/14/2020 Cyclobenzaprine 10 MG Tablet 90.00 30 01/07/2020 2 01/03/2020 Hydromorphone 2 MG Tablet 90.00 30 01/07/2020 2 01/03/2020 Cyclobenzaprine 10 MG Tablet 90.00 30 11/29/2019 2 11/29/2019 Cyclobenzaprine 10 MG Tablet 90.00 30 11/29/2019 2 11/29/2019 Hydromorphone 2 MG Tablet 90.00 30 Objective Findings: Height: 5' 4 (162.6 cm) Weight: 136 lb 11 oz (62 kg) BMI (Calculated): 23.5 Vital signs: Blood pressure (!) 163/93, pulse 99, temperature 98.3 F (36.8 C), temperature source Oral, resp. rate 20, height 5' 4 (1.626 m), weight 136 lb 11 oz (62 kg), SpO2 98 %, not currently . Lab Results Component Value Date/Time HGB 9.7 (L) 01/30/2021 04:17 AM HCT 29.8 (L) 01/30/2021 04:17 AM PLT 139 (L) 01/30/2021 04:17 AM WBC 7.4 01/30/2021 04:17 AM PROTIME 10.9 01/26/2021 03:03 PM INR 1.0 01/26/2021 03:03 PM NA 135 01/30/2021 04:17 AM K 4.1 01/30/2021 04:17 AM BUN 14 01/30/2021 04:17 AM CREATININE 0.95 01/30/2021 04:17 AM GLUCOSE 123 (H) 01/30/2021 04:17 AM Allergies: [place] extract, Atorvastatin, Iv dye [iodides], Pravastatin, and Tetracyclines &related Past Medical History: Diagnosis Date Atherosclerotic heart disease Chest pain COPD (chronic obstructive pulmonary disease) (HCC) DDD (degenerative disc disease), cervical and lumbar Essential hypertension HOWARD (obstructive sleep apnea) Osteoarthritis Pericardial effusion PONV (postoperative nausea and vomiting) Premature ventricular contraction Pulmonary nodules Tobacco abuse Past Surgical History: Procedure Laterality Date ABDOMEN SURGERY APPENDECTOMY CATARACT REMOVAL CHOLECYSTECTOMY CORONARY ANGIOPLASTY WITH STENT PLACEMENT CORONARY ARTERY BYPASS GRAFT 05/12/2004 HYSTERECTOMY SMALL INTESTINE SURGERY STIMULATOR SURGERY Right 12/26/2018 TONSILLECTOMY Family History Problem Relation Age of Onset Hypertension Father Lung Cancer Mother Stroke Sister Patient Active Problem List Diagnosis Right upper lobe pulmonary nodule Review of Systems Constitutional: Negative for chills, fatigue and fever. HENT: Negative for trouble swallowing. Eyes: Negative for visual disturbance. Respiratory: Negative for shortness of breath. Cardiovascular: Positive for chest pain (incisional). Gastrointestinal: Negative for abdominal pain, nausea and vomiting. Genitourinary: Negative for difficulty urinating. Musculoskeletal: Negative for arthralgias. Skin: Negative for wound. Neurological: Negative for dizziness and light-headedness. Psychiatric/Behavioral: Negative for confusion and hallucinations. Physical Exam Vitals signs and nursing note reviewed. Constitutional: General: She is not in acute distress. Appearance: She is not ill-appearing or diaphoretic. HENT: Head: Normocephalic. Neck: Musculoskeletal: Normal range of motion. Cardiovascular: Rate and Rhythm: Normal rate. Pulmonary: Effort: Pulmonary effort is normal. Comments: CT x 1 to water seal Chest: Chest wall: Tenderness present. Abdominal: Palpations: Abdomen is soft. Musculoskeletal: General: No tenderness. Skin: General: Skin is warm and dry. Neurological: Mental Status: She is alert and oriented to person, place, and time. Psychiatric: Attention and Perception: Attention normal. Mood and Affect: Mood normal. Speech: Speech normal. Behavior: Behavior normal. Behavior is cooperative. Pain Management Adjuvants: 0700 --> 0700 01/27/2021 01/28/21 01/29/21 Scheduled APAP 2000 mg 2g 3g PRN Hydromorphone ESCALATOR ATTENDANT 7.4 mg DC'd Oxycodone 25mg Hydromorphone Exparel Block Injection date: 01/28 Medication : Bupivacaine liposome injectable suspension Location: Erector Spinae/Serratus Plane Side Effects: Denies nausea, headache, constipation, dysgeusia, pyrexia, hypoesthesia, muscle twitching, vomiting, pruritus, dizziness, hypertension, dyspepsia. Assessment: 1. Acute Postsurgical RIGHT chest pain Pain Management Plan: Oxycodone 5 - 10 mg po q4h prn moderate to severe breakthrough pain. Hydromorphone 0.25 mg - 0.5 mg IVP q4h prn moderate to severe breakthrough pain. Please utilize oral medications first. Acetaminophen 1000 mg po TID ATC. Exparel block--> no Lido patches x 96 hours. NSAIDs per CTS Patient currently receiving opioids for pain management necessitating a bowel regimen. Recommend initiating scheduled Sennakot-S 8.6/50mg, 1 tablet PO BID. Would also recommend Milk of Magnesia 400mg/5ml, administer 30mL by mouth daily PRN. Patient pain is well controlled at this time on current pain regimen. We will sign off at this time. Please re-consult our service if patient's pain becomes uncontrolled. Thank you for inviting us toparticipate in the care of this patient. Plan discussed with patient who appears to understand and agrees. PAGING: The Acute Pain Service providers are available via [employer]. Please reference [employer] for Pain Management Provider NURSE ADVOCATE and direct all questions to the provider listed. * Rashida Shabazz MD - 01/30/2021 4:32 AM EDT Images from the original note were not included. Cardiothoracic Surgery Progress Note 01/30/2021 5:56 AM Subjective: Admit Date: 01/28/2021 PCP: Radha Odom Procedures Right thoracotomy with right upper lobe wedge biopsy and mediastinal lymph node dissection Interval History No acute events overnight. Afebrile. Tachycardic with HR 80s-120s. VS otherwise stable. Maintaining SpO2 on 2L by nasal cannula. Pain control improving. Denies dyspnea. Tolerating diet. PO intake 1080cc / 24H. Voiding without difficulty. UOP 1000cc / 24H. Chest tube output 700cc / 24H. Out of bed to chair and ambulatory yesterday. Objective: Vitals: Temp (24hrs), Av.9 F (37.2 C), Min:98.3 F (36.8 C), Max:99.6 F (37.6 C) BP (!) 128/100 Pulse 93 Temp 98.3 F (36.8 C) (Oral) Resp 20 Ht 5' 4 (1.626 m) Wt 153 lb 11.2 oz (69.7 kg) SpO2 98% BMI 26.38 kg/m I/O: Date 01/30/21 0000 - 01/30/21 2359 Shift 7321-4504 6089-4826 8138-5319 24 Hour Total INTAKE Shift Total(mL/kg) OUTPUT Urine(mL/kg/hr) 200 200 Chest Tube 150 150 Shift Total(mL/kg) 350(5) 350(5) Weight (kg) 69.7 69.7 69.7 69.7 Patient Vitals for the past 96 hrs (Last 3 readings): Weight 01/29/21 0405 153 lb 11.2 oz (69.7 kg) 01/28/21 0923 148 lb (67.1 kg) Labs and Diagnostics: (reviewed in EMR) BMP: Recent Labs 01/29/21 0010 01/30/21 041 NA 130* 135 K 4.6 4.1 CL 104 105 CO2 20* 24 BUN 15 14 CREATININE 0.93 0.95 GLUCOSE 133* 123* . CBC: Recent Labs 01/29/21 0010 01/30/21 041 WBC 10.3 7.4 HGB 9.2* 9.7* PLT 152 139* INR: Lab Results Component Value Date PROTIME 10.9 01/26/2021 INR 1.0 01/26/2021 Medications: Scheduled Meds: sodium chloride flush 10 mL Intravenous 2 times per day enoxaparin 40 mg Subcutaneous Daily ipratropium-albuterol 1 ampule Inhalation 4x daily polyethylene glycol 17 g Oral Daily docusate sodium 100 mg Oral BID acetaminophen 1,000 mg Oral TID budesonide 1 mg Nebulization BID busPIRone 10 mg Oral TID sertraline 100 mg Oral Daily pantoprazole 40 mg Oral QAM AC doxepin 25 mg Oral Nightly primidone 100 mg Oral Nightly Continuous Infusions: Home Meds: Prior to Admission medications Medication Sig Start Date End Date Taking? Authorizing Provider oxyCODONE-acetaminophen (PERCOCET) 5-325 MG per tablet Take 1 tablet by mouth every 6 hours as needed for Pain for up to 7 days. Intended supply: 7 days. Take lowest dose possible to manage pain 01/28/21 02/04/21 Yes Rashida Shabazz MD polyethylene glycol (GLYCOLAX) 17 GM/SCOOP powder Take 17 g by mouth daily as needed (Constipation)01/28/21 02/27/21 Yes Rashida Shabazz MD hydrOXYzine (ATARAX) 50 MG tablet Take 50 mg by mouth nightly Two tablets Yes Historical Provider, omeprazole (PRILOSEC) 20 MG delayed release capsule Take 20 mg by mouth daily Yes Historical Provider, primidone (MYSOLINE) 50 MG tablet Take 100 mg by mouth nightly 100 mg PO QHS 30 days Yes HistoricalProviMD mallorie busPIRone (BUSPAR) 10 MG tablet Take 10 mg by mouth 3 times daily Yes Historical ProviderMD lisinopril (PRINIVIL;ZESTRIL) 5 MG tablet Take 5 mg by mouth daily Yes Historical ProviderMD furosemide (LASIX) 20 MG tablet Take 20 mg by mouth daily Yes Historical Provider, doxepin (SINEQUAN) 10 MG capsule Take 25 mg by mouth nightly Yes Historical ProviderMD sertraline (ZOLOFT) 100 MG tablet Take 100 mg by mouth daily Yes Historical Provider, clopidogrel (PLAVIX) 75 MG tablet Take 75 mg by mouth daily Yes Historical Provider, metoprolol succinate (TOPROL XL) 25 MG extended release tablet Take 12.5 mg by mouth daily Half tabYes Historical ProviderMD nitroGLYCERIN (NITROSTAT) 0.[address] 0.4 mg under the tongue every 5 minutes as needed for Chest pain up to max of 3 total doses. If no relief after 1 dose, call 911. Historical Provider, isosorbide mononitrate (IMDUR) 30 MG extended release tablet Not taking Historical Provider, ALBUTEROL IN Inhale into the lungs 1 puff q6h INHALATION PRN Historical Provider, budesonide (PULMICORT) 1 MG/2ML nebulizer suspension Take 1 ampule by nebulization 2 times daily Historical Provider, Physical Exam General: No acute distress CV: RRR Pulm: Equal breath sounds bilaterally, right Shawn drain to water seal, serous drainage, air leak resolved Abd: Soft, NT, ND Neuro: Awake, alert, oriented Diet: DIET CARDIAC; Problem List: Principal Problem: Right upper lobe pulmonary nodule Resolved Problems: * No resolved hospital problems. * Assessment and Plan: 65-year-old female with right upper lobe adenocarcinoma s/p right thoracotomy with right upper lobewedge biopsy and mediastinal lymph node dissection 01/28 - CXR reviewed. Stable this morning. - Air leak resolved. Chest tube output 700cc / 24H. - Wean supplemental O2 as tolerated - IS / Acapella - Hx COPD. Scheduled DuoNebs / Pulmicort - Pain control with scheduled Tylenol. Oxycodone / Dilaudid PRN. - Pain management following. Appreciate recommendations - Home meds resumed. Plavix held. - Cardiac diet as tolerated - Scheduled bowel regimen: Colace / Miralax daily - DVT ppx: SCDs / Lovenox - Activity as tolerated / Ambulate. PT/OT. - Transfer to telemetry Rashida Shabazz MD Disclaimers: INFORMED CONSENT: The nature and purpose of the proposed treatment and/or procedure have been discussed. The risks and benefits of the proposed treatment or procedures have been reviewed. Alternatives have been reviewed in addition to the risks and benefits of not receiving treatments or undergoingprocedures. Pursuant to this discussion, the patient agrees to undergo the proposed treatment or procedure. Captured images seen in this note are not a substitute for a comprehensive interpretation of the entire data set as reflected by the interpreting physician with regard to radiology, echocardiography,and other diagnostic images. This note may have been dictated using [employer] Edition 2.6 and/or [employer] Voice Recognition Feature. The document was proofread; however, unrecognized voice recognition dials inspector errors may be present. Associated attestation - Victor M Mendenhall MD - 01/30/2021 3:43 PM EDT I independently saw and evaluated the patient - including reviewing the labs, imaging studies, and available documentation. I agree with the findings and plan of care as documented by the resident/WARP PLACER/OPERATING THEATRE TECHNICIAN/PA, unless otherwise noted. Please do not hesitate to contact me/us if you have any questions or concerns. Victor M Mendenhall MD FACS * Rashida Shabazz MD - 01/29/2021 4:31 AM EDT Images from the original note were not included. Cardiothoracic Surgery Progress Note 01/29/2021 6:29 AM Subjective: Admit Date: 01/28/2021 PCP: Radha Odom Procedures Right thoracotomy with right upper lobe wedge biopsy and mediastinal lymph node dissection Interval History No acute events overnight. Afebrile. SBP 90s-140s overnight. VS otherwise stable. Maintaining SpO2 on 1L by nasal cannula. Pain control improving. Denies dyspnea. Tolerating limited PO intake. 270cc / 24H. No nausea or vomiting. Voiding without difficulty. Out of bed to chair this morning. Right chest tube to suction. Output 495cc / 24H. Objective: Vitals: Temp (24hrs), Av F (36.7 C), Min:97.2 F (36.2 C), Max:99.2 F (37.3 C) BP (!) 101/55 Pulse 73 Temp 98.6 F (37 C) (Oral) Resp 13 Ht 5' 4 (1.626 m) Wt 153 lb 11.2 oz (69.7 kg) SpO2 91% BMI 26.38 kg/m I/O: Date 01/29/21 0000 - 01/29/21 2359 Shift 1848-7880 3395-6183 5771-5841 24 Hour Total INTAKE P.O.(mL/kg/hr) 240 240 I.V.(mL/kg) 795(11.4) 795(11.4) Shift Total(mL/kg) 1035(14.8) 1035(14.8) OUTPUT Urine(mL/kg/hr) 400 400 Chest Tube 240 240 Shift Total(mL/kg) 640(9.2) 640(9.2) Weight (kg) 69.7 69.7 69.7 69.7 Patient Vitals for the past 96 hrs (Last 3 readings): Weight 01/29/21 0405 153 lb 11.2 oz (69.7 kg) 01/28/21 0923 148 lb (67.1 kg) Labs and Diagnostics: (reviewed in EMR) BMP: Recent Labs 01/26/21 1503 01/29/21 0010 NA 133* 130* K 4.2 4.6 CL 101 104 CO2 21* 20* BUN 12 15 CREATININE 0.98 0.93 GLUCOSE 94 133* . CBC: Recent Labs 01/26/21 1503 01/29/21 0010 WBC 6.6 10.3 HGB 10.9* 9.2* PLT 201 152 Hepatic: Recent Labs 01/26/21 1503 AST 41 ALT 35* BILITOT 0.3 ALKPHOS 85 INR: Lab Results Component Value Date PROTIME 10.9 01/26/2021 INR 1.0 01/26/2021 Medications: Scheduled Meds: sodium chloride flush 10 mL Intravenous 2 times per day enoxaparin 40 mg Subcutaneous Daily ceFAZolin 2,000 mg Intravenous Q8H ipratropium-albuterol 1 ampule Inhalation 4x daily polyethylene glycol 17 g Oral Daily docusate sodium 100 mg Oral BID acetaminophen 1,000 mg Oral TID budesonide 1 mg Nebulization BID busPIRone 10 mg Oral TID sertraline 100 mg Oral Daily pantoprazole 40 mg Oral QAM AC doxepin 25 mg Oral Nightly primidone 100 mg Oral Nightly Continuous Infusions: lactated ringers 75 mL/hr at 01/28/21 1950 HYDROmorphone Home Meds: Prior to Admission medications Medication Sig Start Date End Date Taking? Authorizing Provider oxyCODONE-acetaminophen (PERCOCET) 5-325 MG per tablet Take 1 tablet by mouth every 6 hours as needed for Pain for up to 7 days. Intended supply: 7 days. Take lowest dose possible to manage pain 01/28/21 02/04/21 Yes Rashida Shabazz MD polyethylene glycol (GLYCOLAX) 17 GM/SCOOP powder Take 17 g by mouth daily as needed (Constipation)01/28/21 02/27/21 Yes Rashida Shabazz MD hydrOXYzine (ATARAX) 50 MG tablet Take 50 mg by mouth nightly Two tablets Yes Historical ProviderMD omeprazole (PRILOSEC) 20 MG delayed release capsule Take 20 mg by mouth daily Yes Historical Provider, primidone (MYSOLINE) 50 MG tablet Take 100 mg by mouth nightly 100 mg PO QHS 30 days Yes HistoricalProviderMD busPIRone (BUSPAR) 10 MG tablet Take 10 mg by mouth 3 times daily Yes Historical Provider, lisinopril (PRINIVIL;ZESTRIL) 5 MG tablet Take 5 mg by mouth daily Yes Historical Provider, furosemide (LASIX) 20 MG tablet Take 20 mg by mouth daily Yes Historical Provider, doxepin (SINEQUAN) 10 MG capsule Take 25 mg by mouth nightly Yes Historical Provider, sertraline (ZOLOFT) 100 MG tablet Take 100 mg by mouth daily Yes Historical Provider, clopidogrel (PLAVIX) 75 MG tablet Take 75 mg by mouth daily Yes Historical Provider, metoprolol succinate (TOPROL XL) 25 MG extended release tablet Take 12.5 mg by mouth daily Half tabYes Historical Provider, nitroGLYCERIN (NITROSTAT) 0.[address] 0.4 mg under the tongue every 5 minutes as needed for Chest pain up to max of 3 total doses. If no relief after 1 dose, call 911. Historical Provider, isosorbide mononitrate (IMDUR) 30 MG extended release tablet Not taking Historical Provider, ALBUTEROL IN Inhale into the lungs 1 puff q6h INHALATION PRN Historical Provider, budesonide (PULMICORT) 1 MG/2ML nebulizer suspension Take 1 ampule by nebulization 2 times daily Historical Provider, Physical Exam General: No acute distress CV: RRR Pulm: Equal breath sounds bilaterally, right Shawn drain to suction, serosanguinous drainage, intermittent air leak with cough only Abd: Soft, NT, ND Neuro: Awake, alert, oriented Diet: DIET CARDIAC; Problem List: Principal Problem: Right upper lobe pulmonary nodule Resolved Problems: * No resolved hospital problems. * Assessment and Plan: 65-year-old female with right upper lobe adenocarcinoma s/p right thoracotomy with right upper lobewedge biopsy and mediastinal lymph node dissection 01/28 - CXR reviewed. Stable this morning. - Right chest tube to water seal today. Monitor intermittent air leak with cough. - Wean supplemental O2 as tolerated - IS / Acapella - Hx COPD. Scheduled DuoNebs / Pulmicort - Pain control with scheduled Tylenol / Dilaudid ESCALATOR ATTENDANT - Pain management following. Appreciate recommendations - Ancef x24H postop - Home meds resumed. Plavix held. - Cardiac diet as tolerated - IVF saline locked - Scheduled bowel regimen: Colace / Miralax daily - DVT ppx: SCDs / Lovenox - Activity as tolerated / Ambulate. PT/OT. - Continue care in [facility] today Rashida Shabazz MD Disclaimers: INFORMED CONSENT: The nature and purpose of the proposed treatment and/or procedure have been discussed. The risks and benefits of the proposed treatment or procedures have been reviewed. Alternatives have been reviewed in addition to the risks and benefits of not receiving treatments or undergoingprocedures. Pursuant to this discussion, the patient agrees to undergo the proposed treatment or procedure. Captured images seen in this note are not a substitute for a comprehensive interpretation of the entire data set as reflected by the interpreting physician with regard to radiology, echocardiography,and other diagnostic images. This note may have been dictated using [employer] Practice Edition 2.6 and/or [employer] Voice Recognition Feature. The document was proofread; however, unrecognized voice recognition dials inspector errors may be present. Associated attestation - Victor M Mendenhall MD - 01/29/2021 12:14 PM EDT I independently saw and evaluated the patient - including reviewing the labs, imaging studies, and available documentation. I agree with the findings and plan of care as documented by the resident/WARP PLACER/OPERATING THEATRE TECHNICIAN/PA, unless otherwise noted. Please do not hesitate to contact me/us if you have any questions or concerns. Victor M Mendenhall MD FACS documented in this encounter Hospital Course Note Attestation signed by Victor M Mendenhall MD at 02/01/2021 12:35 PM I independently saw and evaluated the patient - including reviewing the labs, imaging studies, and available documentation. I agree with the findings and plan of care as documented by the resident/WARP PLACER/OPERATING THEATRE TECHNICIAN/PA, unless otherwise noted. Please do not hesitate to contact me/us if you have any questions or concerns. Victor M Mendenhall MD FACS Discharge Summary Haleigh Almeida : 1955 Age: 65 y.o. ADMIT DATE: 01/28/2021 DISCHARGE DATE: 01/31/2021 DISCHARGING SURGEON: Victor M Mendenhall MD Office Number: [phone] PRIMARY CARE PHYSICIAN: Radha Odom VISIT STATUS: Admission CODE STATUS: Prior DISCHARGE DIAGNOSES: 1. Right upper lobe lung adenocarcinoma 2. Hx HTN 3. Hx COPD 4. Hx HOWARD 5. Hx CAD 6. Hx Tobacco abuse Body mass index is 23.46 kg/m?. BMI Classi (more content not included)... Additional Source Comments INFORMATION SOURCE (unrecogn ized section and content) DATE CREATED AUTHOR AUTHOR'S ORGANIZ ATION 01/07/2019 [facility] DATE CREATED AUTHOR AUTHOR'S ORGANIZ ATION 01/07/2019 [facility] DATE CREATED AUTHOR AUTHOR'S ORGANIZ ATION 10/30/2019 [facility] DATE CREATED AUTHOR AUTHOR'S ORGANIZ ATION 04/29/2020 [facility] ([place]) DATE CREATED AUTHOR AUTHOR'S ORGANIZ ATION 02/04/2021 [facility] [employer] [facility] DATE CREATED AUTHOR AUTHOR'S ORGANIZ ATION 02/06/2021 [facility] DATE CREATED AUTHOR AUTHOR'S ORGANMEÑO ATION 01/23/2023 [facility] Ordered Prescriptions (unrec ognized section and content) Reason for Visit (unrecogniz ed section and content) Care Teams (unrecognized sec tion and content) FOR RECORDS PERTAINING TO PATIENTS WHO ARE OR HAVE BEEN ENROLLED IN A CHEMICAL DEPENDENCY/SUBSTANCEABUSE PROGRAM, SOME INFORMATION MAY BE OMITTED. This clinical summary was aggregated from multiple sources. Caution should be exercised in using it in the provision of clinical care. This summary normalizes information from multiple sources, and as a consequence, information in this document may materially change the coding, format and clinical context of patient data. In addition, data may be omitted in some cases. CLINICAL DECISIONS SHOULD BE BASED ON THE PRIMARY CLINICAL RECORDS. [facility] provides no warranty or guarantee of the accuracy or completeness of information in this document.
== END 2024-01-12 18:10 | disposition left against medical advice (07) ==
PROVIDERS: Emergency Provider Emergency Medicine; PCP Family Medicine; Visit Provider Emergency Medicine
DX: R07.89 Other chest pain (principal); I11.0 Hypertensive heart disease with heart failure; I50.9 Heart failure, unspecified; Z87.891 Personal history of nicotine dependence; I25.10 Atherosclerotic heart disease of native coronary artery without angina pectoris; Z95.1 Presence of aortocoronary bypass graft; R06.02 Shortness of breath; E78.00 Pure hypercholesterolemia, unspecified; Z79.899 Other long term (current) drug therapy; Z85.118 Personal history of other malignant neoplasm of bronchus and lung; R91.8 Other nonspecific abnormal finding of lung field; Z53.29 Procedure and treatment not carried out because of patient's decision for other reasons
CPT/HCPCS: 71045; 71250; 80048; 84484; 85025; 93005; 96361; 96374; 96375; 96376; 99285; J7030; A4216; J2405

== ENCOUNTER 2024-02-22 16:37 | Emergency (ER) | payer MEDICARE, SELFPAY ==
[2021-10-20 08:51] VITALS: BMI 26.6
[2024-02-22] VITALS (9 sets, daily range): BP systolic 133–149; BP diastolic 68–87; PULSE 71–90; RESP 16–24; TEMP 36.5–37.5; O2SAT 93–99; BMI 27.4
--- NOTE | 2024-02-22 17:25 | EDS_ITS ---
HPI History of Present Illness Chief Complaint: Shortness of Breath Detail of Chief Complaint: Shortness of breath Informant: patient Narrative Narrative: Patient presents with shortness of breath as her about 2 weeks ago. Patient states that at that time she was started on Augmentin and prednisone and given an inhaler with steroid and it. She continues to feel short of breath. She does have a cough that at times is productive of some white phlegm and some yellow phlegm. She denies any fevers or chills or sweats. She does have history of COPD as well as history of CHF and coronary artery disease. She denies any weight gain. She does complain of pain in her right lower lung in the back especially with deep breath. No history of PE or DVT. She does have history of lung cancer with a right upper lobectomy. [facility] Medical History Adenocarcinoma of lung, stage 1 Anemia Angina of effort Anxiety Atherosclerotic heart disease of [place] coronary artery with unstable angina pectoris Atherosclerotic heart disease of [place] coronary artery without angina pectoris Chest pain, unspecified Congestive heart failure DDD (degenerative disc disease) Essential hypertension History of COPD Lung cancer Melanoma Myocardial infarction, silent Nonrheumatic mitral (valve) prolapse HOWARD (obstructive sleep apnea) Osteoarthritis Pericardial effusion Premature ventricular contraction Pure hypercholesterolemia Tobacco abuse Worsening angina Home Medications omeprazole 20 mg capsule,delayed release 20 mg PO DAILY acid reflux 02/04/16 [History Last Taken 06/13/22] albuterol sulfate 90 mcg/actuation aerosol inhaler 1 puff inhalation Q6H PRN Sob &/Or Wheezing 07/28/20 [History Last Taken 06/14/22] ipratropium 0.5 mg-albuterol 3 mg (2.5 mg base)/3 mL nebulization soln 3 ml inhalation Q4H PRN shortness of breath or wheezing #180 mL 12/29/20 [Rx Last Taken 06/08/22] nebulizer and compressor #1 ea 06/11/22 [Rx Last Taken Unknown] sertraline 100 mg tablet 150 mg PO DAILY mood 06/14/22 [History Last Taken 06/13/22] clopidogrel 75 mg tablet 75 mg PO DAILY #90 tabs 06/16/22 [Rx Last Taken Unknown] primidone 50 mg tablet 150 mg PO QHS seizures 30 days #90 tabs 01/10/24 [History Last Taken Unknown] prazosin 2 mg capsule 2 mg PO QHS 01/12/24 [History Last Taken Unknown] budesonide 1 mg/2 mL suspension for nebulization 1 mg (2 mL) inhalation BID #60 mL 02/03/24 [Rx Last Taken Unknown] hydroxyzine HCl 25 mg tablet 25 mg PO TID #90 tabs 02/06/24 [Rx Last Taken Unknown] mirtazapine 15 mg tablet 15 mg PO QHS #30 tabs 02/06/24 [Rx Last Taken Unknown] nitroglycerin 0.4 mg sublingual tablet 0.4 mg sublingual Q5M PRN Chest Pain #25 tabs 02/08/24 [Rx Last Taken Unknown] clonazepam 1 mg tablet 1 mg PO TID #90 tabs 02/09/24 [Rx Last Taken Unknown] metoprolol succinate 25 mg tablet,extended release 24 hr 12.5 mg (1/2 x 25 mg) PO DAILY #45 TABLETS 02/13/24 [Rx Last Taken Unknown] furosemide 20 mg tablet (Lasix) 20 mg PO BID #10 tabs 02/22/24 [Rx Last Taken Unknown] hydrocodone-acetaminophen 5-325mg 5mg-325mg 1 tab PO Q4H PRN PRN Pain 2 days #15 TABLETS 02/22/24 [Rx Last Taken Unknown] prednisone 20 mg tablet 20 mg PO BID #10 tabs 02/22/24 [Rx Last Taken Unknown] Allergy/AdvReac Type Severity Reaction Status Date / Time Iodinated Contrast Media Allergy Hives Verified 02/22/24 16:37 [Iodinated Contrast Media - IV Dye] mesalamine [From Asacol] Allergy GASTRIC Verified 02/22/24 16:37 HEMORRHAGE tetracycline [Tetracycline] Allergy Hives Verified 02/22/24 16:37 pravastatin AdvReac Intermediate Upset Verified 02/22/24 16:37 Stomach atorvastatin [From Lipitor] AdvReac myalgia Verified 02/22/24 16:37 Family History Father Hypertension Colon cancer Alcoholism Mother Cancer LUNG CANCER/ SMOKER Father , MELANOMA No problems noted. Surgical History Aortocoronary bypass status (~05/12/04) History of abdominal surgery History of bowel resection History of cataract surgery History of cholecystectomy History of total hysterectomy Hx of appendectomy interstim placement (~08/05/20) Postsurgical percutaneous transluminal coronary angioplasty (PTCA) status (~03/12/18) Presence of coronary angioplasty implant and graft (~03/12/18) Presence of stent in coronary artery (~06/15/22) S/P partial lobectomy of lung Social History adopted: No housing: house number of children: 1 current occupational status: retired current occupational exposures/hazards: No Smoking Status: Current every day smoker tobacco type: cigarettes Tobacco: How many years used: 50 how long ago did patient quit smokin weeks ago alcohol intake: never substance use type: does not use caffeine: Yes Type: carbonated beverages Number of servings: 2 ROS ROS ED Review of Systems ROS Unobtainable: other Constitutional Constitutional ED: Reports lethargy; Denies chills, fever(s), sweats or weight loss Eyes Eyes: Denies blurry vision, change in vision or diplopia ENT ENT ED: Denies rhinorrhea or sore throat Cardiovascular Cardiovascular: Denies chest pain, orthopnea or racing heartbeat Respiratory/Chest Respiratory/Chest: Reports cough, dyspnea, dyspnea on exertion and sputum; Denies orthopnea Gastrointestinal Gastrointestinal: Denies abdominal pain, diarrhea, nausea or vomiting Genitourinary Genitourinary ED: Denies dysuria, hematuria or urinary frequency Musculoskeletal Musculoskeletal: Denies arthralgias, back pain, myalgias or neck pain Integumentary Denies abscess, Abrasions or rash Neurologic Neurologic: Denies headache(s) or weakness Psychiatric Psychiatric: Denies anxiety, depression or suicidal thoughts Endocrine Endocrinology: Denies polydipsia, polyphagia or polyuria Hematologic/Lymphatic Hematologic/Lymphatic: Denies easy bleeding, easy bruising or lymphadenopathy Allergic/Immunologic Allergic/Immunologic ED: Denies mouth swelling, tongue swelling or urticaria EXAM Physical Exam Const Vital Signs: 02/22/24 16:38 02/22/24 17:20 02/22/24 17:22 Temperature 97.7 F L 99.5 F H Temperature Source Temporal Oral Pulse Rate 80 76 Respiratory Rate 16 16 Respiratory Effort Normal Non-Labored Respiratory Depth Normal Respiratory Pattern Normal Blood Pressure 149/68 H 145/87 H Blood Pressure Mean 95 106 Pulse Ox 95 97 Oxygen Delivery Method Room Air Room Air 02/22/24 17:30 02/22/24 17:37 02/22/24 17:42 Temperature 97.8 F Temperature Source Temporal Pulse Rate 78 72 Respiratory Rate 16 24 H Respiratory Effort Respiratory Depth Respiratory Pattern Tachypnea Blood Pressure 138/78 H Blood Pressure Mean 98 Pulse Ox 98 Oxygen Delivery Method Room Air Room Air 02/22/24 18:00 02/22/24 18:00 02/22/24 18:41 Temperature 98 F 99.2 F H Temperature Source Temporal Oral Pulse Rate 72 72 78 Respiratory Rate 20 H 20 H 20 H Respiratory Effort Respiratory Depth Respiratory Pattern Blood Pressure 139/76 H 139/76 H 148/68 H Blood Pressure Mean 97 97 94 Pulse Ox 99 99 98 Oxygen Delivery Method Room Air Room Air Room Air 02/22/24 19:51 02/22/24 19:58 Temperature 99.2 F H Temperature Source Oral Pulse Rate 73 71 Respiratory Rate 24 H 18 Respiratory Effort Respiratory Depth Respiratory Pattern Blood Pressure 139/75 H 133/73 H Blood Pressure Mean 96 93 Pulse Ox 93 93 Oxygen Delivery Method Room Air Room Air Positive well nourished and well developed General Appearance ED: well developed and NAD HEENT Reports TM's clear and moist mucous membranes normocephalic and atraumatic; Negative for trauma or tenderness Tympanic Membrane ED: Yes TM's clear Eyes PERRL and EOMs intact bilaterally General Eye ED: Negative for pale conjunctiva or scleral icterus Neck no lymphadenopathy, supple and no JVD General: Negative for tenderness Chest Wall inspection of chest normal and palpation of chest normal Chest: Negative for tenderness Resp normal respiratory effort Resp Narrative: Diminished breath sounds in the right upper lobe. Patient has some faint expiratory wheezes bilaterally. No significant tachypnea or accessory muscle use or retractions Effort and Inspection: Negative for respiratory distress or pain with movement Auscultation: Negative for rhonchi, wheezes or diminished lung sounds Cardio regular rate, regular rhythm, S1 normal heart sound, S2 normal heart sound and no murmurs Peripheral Pulses: pulses 2+ throughout GI normal to inspection, nondistended, normoactive bowel sounds, soft to palpation, non-tender, non-distended and no masses Back/Spine no CVA tenderness and no thoracic nor lumbar tenderness Extremity normal to inspection General Extremety ED: Negative for edema General Extremity: Negative for edema Neuro oriented x3, CN's II-XII intact bilaterally, no sensory deficits noted and gait normal Sensorium / Orientation: awake, alert, oriented to person, oriented to place and oriented to time Motor Exam: strength 5/5 throughout and strength abnormal Psych mental status grossly normal Skin no rashes or lesions noted and no wounds MDM MDM MDM Narrative Medical decision making narrative: Patient presents with dyspnea for over 2 weeks. History of COPD as well as CHF and lung cancer. In the differential would be pneumonia versus COPD exacerbation versus CHF exacerbation versus PE or other acute process. IV line established. EKG obtained showed sinus rhythm with rate of 78 bpm with occasional PVCs. CBC with differential count of 6.5 with hemoglobin 8.5 and platelet count of 202. Chemistries unremarkable. Troponin normal at 36. D- dimer elevated 0.98 and BNP was elevated 568.2. Chest x-ray obtained showed right upper lobe area of consolidation slightly enlarged from prior study. CTA of the chest was negative for PE but did show evidence of pleural-based mass suspicious for recurrence of lung cancer. While in the department I did give h er a DuoNeb aerosol and gave her Solu-Medrol. Discussed findings with patient. I do suspect a component of CHF and a component of COPD. Her pain is likely related to recurrence of lung cancer. She is seeing her radiation oncologist tomorrow. Clinically she looks well I do not feel she needs admitted. I recommended she increase her Lasix to 20 mg twice a day from once a day x 5 days. Will write her a prescription for [place] for pain. Will start her on prednisone for 5 days. Lab Data Attestation: I reviewed the patient's lab results. Labs: Laboratory Results - last 24 hr 02/22/24 17:40 WBC 6.5 RBC 3.95 L Hgb 8.5 L Hct 29.9 L MCV 75.7 L MCH 21.5 L MCHC 28.4 L RDW Std Deviation 50.6 H RDW Coeff of Kit 18.6 H Plt Count 202 MPV 10.2 Immature Gran % (Auto) 0.500 Neut % (Auto) 67.3 Lymph % (Auto) 21.5 [place] % (Auto) 8.5 Eos % (Auto) 1.7 Baso % (Auto) 0.5 Absolute Neuts (auto) 4.4 Absolute Lymphs (auto) 1.40 Nucleated RBC % 0 D-Dimer Quant (PE/DVT) 0.98 H* Sodium 140 Potassium 3.8 Chloride 111 H Carbon Dioxide 24.0 Anion Gap 5 BUN 14 Creatinine 1.09 H Estim Creat Clear Calc 47.74 Est GFR (MDRD) Af Amer 64 Est GFR (MDRD) Non-Af 53 L BUN/Creatinine Ratio 12.8 Glucose 116 H Calcium 8.6 Troponin I High Sens 36 B-Natriuretic Peptide 568.2 H Radiography Diagnostic Testing: Clinical Impression(s) from Imaging Studies Chest X-Ray 02/22/24 17:45 IMPRESSION: Slight increase in size of a focal area of subpleural consolidation in the right midlung. Otherwise, no change from prior study. Electronically Signed: Sen Aparicio MD at 19:01 EDT , Chest CTA 02/22/24 18:33 IMPRESSION: No evidence of acute pulmonary emboli to the segmental level. Increased size of a pleural-based density in the lateral aspect of the right upper and middle lobes concerning for recurrent disease. There is mediastinal and right hilar lymphadenopathy as well. Cardiomegaly with mild interstitial edema. Electronically Signed: Sen Aparicio MD at 20:21 EDT , 1 view chest x-ray obtained interpreted by myself as a right upper lobe mass or consolidation. Radiology in agreement felt there was slight increase in size of focal area of subpleural consolidation in the right midlung. EKG Initial EKG: Attestation: I personally reviewed and interpreted this EKG as follows: Comments: Sinus rhythm with rate of 78 bpm with PVCs and nonspecific ST changes Discharge Plan Triage Chief Complaint: Shortness of Breath ED Provider: Ramona Johnson Dx/Rx/DC Orders Clinical Impression: CHF exacerbation, Acute dyspnea, Lung cancer, COPD exacerbation Instructions: ED Heart Failure, Congestive (CHF), ED COPD Flare, ED Dyspnea, ED Tumor, Uncertain Cause Prescriptions: New furosemide [Lasix] 20 mg tablet 20 mg PO BID Qty: 10 0RF prednisone 20 mg tablet 20 mg PO BID Qty: 10 0RF hydrocodone-acetaminophen [hydrocodone-acetaminophen] 5-325 mg tablet 1 tab PO Q4H PRN PRN (Reason: Pain) 2 Days Qty: 15 0RF No Action primidone 50 mg tablet 150 mg PO QHS 30 Days Qty: 90 clonazepam 1 mg tablet 1 mg PO TID Qty: 90 0RF budesonide 1 mg/2 mL suspension for nebulization 1 mg inhalation BID Qty: 60 6RF nitroglycerin 0.4 mg tablet, sublingual 0.4 mg SUBLINGUAL Q5M PRN (Reason: Chest Pain) Qty: 25 3RF Rx Instructions: Place one tab under tongue every 5 minutes x 3 doses as needed omeprazole 20 MG capsule 20 mg PO DAILY albuterol sulfate 1 PUFF inhaler 1 puff INHALATION Q6H PRN (Reason: Sob &/Or Wheezing) (DME) nebulizer and compressor Device See Rx Instructions .Route Qty: 1 0RF Rx Instructions: As directed sertraline 100 mg tablet 150 mg PO DAILY clopidogrel 75 mg Tablet 75 mg PO DAILY Qty: 90 3RF prazosin 2 mg capsule 2 mg PO QHS ipratropium-albuterol 0.5 mg-3 mg(2.5 mg base)/3 mL solution for nebulization 3 ml INHALATION Q4H PRN (Reason: shortness of breath or wheezing) Qty: 180 3RF hydroxyzine HCl 25 mg tablet 25 mg PO TID Qty: 90 1RF mirtazapine 15 mg tablet 15 mg PO QHS Qty: 30 2RF metoprolol succinate 25 mg tablet extended release 24 hr 12.5 mg PO DAILY Qty: 45 3RF Primary Care Provider: Sen Odom Referrals: Sen Odom MD [Primary Care Provider] - 3-5 Days Activity Restrictions/Additional Instructions: Keep your appointment with radiation oncologist tomorrow. Disposition Disposition: Home, Self Care
[2024-02-22] MEDS: Ipratropium/Albuterol Sulfate 3 ML AMPUL.NEB INHALATION (17:41)
[2024-02-22] MEDS: MethylPREDNISolone 125 MG/2 ML Vial IV (17:44)
--- NOTE | 2024-02-22 17:45 | RAD_ITS ---
INDICATION: dyspnea EXAMINATION/TECHNIQUE: X-RAY - XR Chest 1 View COMPARISON: 01/12/2024. FINDINGS: Slight increase in size of a focal area of subpleural consolidation in the right midlung. Sternal cerclage wires and vascular clips are present from a prior sternotomy and coronary artery bypass graft procedure (CABG). The heart is mildly enlarged. Tortuous and calcified thoracic aorta. No pleural effusion or pneumothorax. The osseous structures are unchanged. RAD/Chest 1 View (Portable) IMPRESSION: Slight increase in size of a focal area of subpleural consolidation in the right midlung. Otherwise, no change from prior study. Electronically Signed: Sen Aparicio MD at 19:01 EDT ,
[2024-02-22 17:47] LABS: Absolute Neutrophil Count 4.4 X10^3/uL (2.0-7.7); Basophil# 0.03 X10^3/uL; Basophil% 0.5 % (0-1); Eosinophil# 0.11 X10^3/uL; Eosinophils% 1.7 % (0-5); Hematocrit 29.9 % (37-47); Hemoglobin 8.5 g/dL (12.0-15.0); Lymphocyte % 21.5 % (19-41); Mean Corp Hgb Conc 28.4 g/dL (32-36); Mean Corpuscular Hgb 21.5 pg (27.0-32.0); Mean Corpuscular Volume 75.7 fL (81-99); Mean Platelet Vol. 10.2 fl (6.2-12.0); Monocyte# 0.55 X10^3/uL; Monocyte% 8.5 % (0-10); NRBC Flagged by Analyzer 0 % (0-5); Neutrophil # 4.38 X10^3/uL (2.7-7.7); Neutrophil % 67.3 % (47-70); Platelet Count 202 K/mm3 (150-450); RBC Distribution Width CV 18.6 % (11.6-14.6); RBC Distribution Width SD 50.6 fl (35.1-43.9); Red Blood Count 3.95 M/mm3 (4.2-5.4); White Blood Count 6.5 K/mm3 (4.4-11.0)
[2024-02-22 18:02] LABS: D-Dimer Quantitative (DVT/PE) 0.98 FEU/ug/m (0.27-0.49)
[2024-02-22 18:04] LABS: Anion Gap 5 (5-15); BUN 14 mg/dL (7-18); BUN/Creat Ratio 12.8 RATIO (10-20); Calcium,Total 8.6 mg/dL (8.5-10.1); Chloride 111 mmol/L (98-107); Creatinine, Serum 1.09 mg/dL (0.55-1.02); EST Glomerular Filtration Rate 53 mL/min (>60); Est Glom Filt Rate - Afr Amer 64 mL/min (>60); Estimated Creatinine Clearance 47.74 ml/min; Glucose 116 mg/dL (74-106); Potassium 3.8 mmol/L (3.5-5.1); Sodium Level 140 mmol/L (136-145); Troponin-I HS 36 pg/mL (3.0-54.0)
[2024-02-22 18:06] LABS: BNP,B-Type NATRIURETIC PEPTIDE 568.2 pg/mL (0-100)
--- NOTE | 2024-02-22 18:33 | CT_ITS ---
INDICATION: chest pain, elevated d-dimer EXAMINATION: CTA Chest WO/W Contrast Injection TECHNIQUE: Helically acquired images were obtained of the chest following administration of IV contrast. A radiation dose optimization technique was used for this scan. 3D postprocessing images including MIPS were reviewed. IV Contrast dosage and agent: IV 75mL [id number] COMPARISON: 06/14/2022. FINDINGS: Lungs: Mild intralobular septal thickening. Interval increased size of a pleural-based density in the lateral aspect of the right upper and middle lobes. Mediastinum: The heart is moderately enlarged. There is mediastinal and right hilar lymphadenopathy. Moderate aortic arch and coronary artery calcifications. No obvious filling defect seen within the visualized pulmonary arteries. Pleura: Unremarkable Bones/Soft tissues: There are diffuse degenerative changes of the spine. Upper abdomen: Liver is cirrhotic. CT/CTA Chest W/WO Contrast IMPRESSION: No evidence of acute pulmonary emboli to the segmental level. Increased size of a pleural-based density in the lateral aspect of the right upper and middle lobes concerning for recurrent disease. There is mediastinal and right hilar lymphadenopathy as well. Cardiomegaly with mild interstitial edema. Electronically Signed: Sen Aparicio MD at 20:21 EDT ,
[2024-02-22] MEDS: DiphenhydrAMINE 50 MG/ML Syringe IV (18:37)
[2024-02-22] MEDS: Morphine 4 MG/ML Syringe IV (19:06)
[2024-02-22] MEDS: Ondansetron 4 MG/2 ML Vial IV (19:06)
== END 2024-02-22 22:13 | disposition home or self-care (01) ==
PROVIDERS: Emergency Provider Emergency Medicine; PCP Family Medicine; Visit Provider Emergency Medicine
DX: J44.1 Chronic obstructive pulmonary disease with (acute) exacerbation (principal); C34.90 Malignant neoplasm of unspecified part of unspecified bronchus or lung; I11.0 Hypertensive heart disease with heart failure; I50.9 Heart failure, unspecified; I25.10 Atherosclerotic heart disease of native coronary artery without angina pectoris; F17.210 Nicotine dependence, cigarettes, uncomplicated; E78.00 Pure hypercholesterolemia, unspecified
CPT/HCPCS: 71045; 71275; 80048; 82274; 83880; 84484; 85025; 85379; 87631; 93005; 94640; 96374; 96375; 99284; Q9967; A4216; J2405

== ENCOUNTER → 2024-03-08 | Outpatient (CLI) | payer MEDICARE, SELFPAY ==
[2021-10-20 08:51] VITALS: BMI 26.6
== END | disposition home or self-care (01) ==
LOC: SL 13:04
PROVIDERS: PCP Family Medicine; Referring Provider Nurse Practitioner Acute Care; Visit Provider Nurse Practitioner Acute Care
DX: R09.02 Hypoxemia (principal)
CPT/HCPCS: 94762

== ENCOUNTER → 2024-03-14 | Outpatient (CLI) | payer MEDICARE, SELFPAY ==
[2021-10-20 08:51] VITALS: BMI 26.6
[2024-03-14 12:27] LABS: Hematocrit 29.1 % (37-47); Hemoglobin 8.6 g/dL (12.0-15.0); Mean Corp Hgb Conc 29.6 g/dL (32-36); Mean Corpuscular Hgb 21.6 pg (27.0-32.0); Mean Corpuscular Volume 72.9 fL (81-99); Mean Platelet Vol. 10.3 fl (6.2-12.0); Platelet Count 195 K/mm3 (150-450); RBC Distribution Width SD 47.6 fl (35.1-43.9); Red Blood Count 3.99 M/mm3 (4.2-5.4); White Blood Count 5.2 K/mm3 (4.4-11.0)
[2024-03-14 12:34] LABS: Anion Gap 6 (5-15); BUN 11 mg/dL (7-18); BUN/Creat Ratio 10.3 RATIO (10-20); Calcium,Total 8.9 mg/dL (8.5-10.1); Chloride 98 mmol/L (98-107); Creatinine, Serum 1.07 mg/dL (0.55-1.02); EST Glomerular Filtration Rate 54 mL/min (>60); Est Glom Filt Rate - Afr Amer 66 mL/min (>60); Glucose 107 mg/dL (74-106); Potassium 4.3 mmol/L (3.5-5.1); Sodium Level 133 mmol/L (136-145)
[2024-03-14 12:35] LABS: BNP,B-Type NATRIURETIC PEPTIDE 419.5 pg/mL (0-100)
== END | disposition home or self-care (01) ==
LOC: MTLAB 10:56
PROVIDERS: PCP Family Medicine; Referring Provider Physician Assistant Medical; Visit Provider Physician Assistant Medical
DX: R06.02 Shortness of breath (principal)
CPT/HCPCS: 36415; 80048; 83880; 85027

== ENCOUNTER → 2024-03-21 | Outpatient (CLI) | payer MEDICARE, SELFPAY ==
[2021-10-20 08:51] VITALS: BMI 26.6
[2024-03-21 18:18] LABS: Absolute Lymphocyte Count 1.76 X10^3/uL (0.83-4.51); Absolute Neutrophil Count 3.5 X10^3/uL (2.0-7.7); Basophil# 0.05 X10^3/uL; Basophil% 0.8 % (0-1); Eosinophil# 0.12 X10^3/uL; Hematocrit 31.9 % (37-47); Hemoglobin 9.3 g/dL (12.0-15.0); Lymphocyte # 1.76 X10^3/ul (0.83-4.51); Lymphocyte % 29.1 % (19-41); Mean Corp Hgb Conc 29.2 g/dL (32-36); Mean Corpuscular Hgb 21.3 pg (27.0-32.0); Mean Platelet Vol. 9.6 fl (6.2-12.0); Monocyte# 0.63 X10^3/uL; Monocyte% 10.4 % (0-10); NRBC Flagged by Analyzer 0 % (0-5); Neutrophil # 3.46 X10^3/uL (2.7-7.7); Neutrophil % 57.2 % (47-70); Platelet Count 289 K/mm3 (150-450); RBC Distribution Width CV 18.6 % (11.6-14.6); RBC Distribution Width SD 48.8 fl (35.1-43.9); RET-HE 22.1 pg (30-35); Red Blood Count 4.37 M/mm3 (4.2-5.4); Reticulocyte Count 1.82 % (0.5-1.5); White Blood Count 6.1 K/mm3 (4.4-11.0)
[2024-03-21 18:46] LABS: Ferritin 18 ng/mL (8-252); Iron 18 ug/dL (50-170); Iron Binding Capacity,Total 454 ug/dL (250-450)
== END | disposition home or self-care (01) ==
LOC: MFPLAB 14:34
PROVIDERS: PCP Family Medicine; Visit Provider Family Medicine
DX: D64.9 Anemia, unspecified (principal)
CPT/HCPCS: 36415; 82728; 83540; 83550; 85025; 85045

== ENCOUNTER → 2024-05-18 | Outpatient (CLI) | payer MEDICARE, SELFPAY ==
[2021-10-20 08:51] VITALS: BMI 26.6
--- NOTE | 2024-05-18 10:37 | CT_ITS ---
STUDY: CT CHEST WITHOUT CONTRAST REASON FOR EXAM: Female, 69 years old. Previously treated lung cancer, eval for disease -- compare to prior RADIATION DOSAGE (If Supplied By Facility): CTDIvol = ( 9.35 ) mGy, DLP = ( 320.18 ) mGycm TECHNIQUE: Transaxial imaging was performed without the administration of intravenous contrast material. Multiplanar coronal and sagittal images were reformatted. Individualized dose optimization techniques were used for this CT. COMPARISON: Comparison is made with prior examination dated February 22, 2024. FINDINGS: CHEST Stable pleural-based density in the lateral aspect of the right upper and right middle lobes with evidence of bronchiectasis. This may represent post radiation fibrosis. There is a 1.1 cm noncalcified nodule in the peripheral lateral aspect of the right lower lobe. This has not changed as compared to prior study. There is no demonstrated pleural abnormality. Normal heart and pericardium. Stable small right hilar and mediastinal lymph nodes. . Normal unenhanced pulmonary arteries. There is atherosclerotic calcification of the aortic arch. Prior midline sternotomy and aortic valve replacement. There are multi-level degenerative changes of the thoracic spine. There is no demonstrated abnormality of the visualized upper abdomen. CT/Chest without Contrast IMPRESSION: Stable examination with findings suggestive of a pleural thickening with calcification along the lateral aspect of the right upper lobe and right middle lobes. Stable nodular densities in the peripheral lateral aspect of the right lower lobe. Electronically Signed: Db Bach MD at 14:59 EDT ,
== END | disposition home or self-care (01) ==
LOC: CT 10:36
PROVIDERS: PCP Family Medicine; Referring Provider Student in an Organized Health Care Education/Training Program; Visit Provider Student in an Organized Health Care Education/Training Program
DX: C34.11 Malignant neoplasm of upper lobe, right bronchus or lung (principal)
CPT/HCPCS: 71250

== ENCOUNTER 2024-10-16 16:23 | Inpatient (IN) | payer MEDICARE, SELFPAY ==
[2021-10-20 08:51] VITALS: BMI 26.6
[2024-10-16] VITALS (12 sets, daily range): BP systolic 115–143; BP diastolic 63–111; PULSE 79–110; RESP 16–30; TEMP 36.3–38.1; O2SAT 93–100; BMI 26.9; BMI 25.7
--- NOTE | 2024-10-16 16:35 | EDS_ITS ---
HPI History of Present Illness Chief Complaint: Cough Informant: patient Onset/Context/Timing Onset: Weeks (6) Context: Gradual Onset Timing: Continuous Quality: Sharp Location: Left lower chest Worsened by: Deep breathing Relieved by: Nothing Narrative Narrative: Patient presents with left lower chest pain, cough, shortness of breath that has been getting worse over the last 6 weeks. Patient states it is gradually getting worse. Patient describes her pain as sharp. Patient states the pain is over the left lower chest. Patient states it is worse with deep breathing. Patient states nothing seems to help with it. Patient states she is coughing up some green, yellow, and clear sputum. Patient states she had a fever initially, approximately 6 weeks ago but currently has not had any fevers over the past few weeks. [facility] Medical History Anxiety Atherosclerotic heart disease of [place] coronary artery with unstable angina pectoris Congestive heart failure History of COPD Anemia Angina of effort Myocardial infarction, silent Adenocarcinoma of lung, stage 1 Lung cancer Melanoma Pure hypercholesterolemia Worsening angina Chest pain, unspecified HOWARD (obstructive sleep apnea) Osteoarthritis DDD (degenerative disc disease) Premature ventricular contraction Pericardial effusion Atherosclerotic heart disease of [place] coronary artery without angina pectoris Nonrheumatic mitral (valve) prolapse Tobacco abuse Essential hypertension Home Medications ?Medication ?Instructions ?Recorded ?Last Taken ?Type omeprazole 20 mg capsule,delayed 20 mg PO DAILY acid reflux 02/04/16 06/13/22 History release albuterol sulfate 90 mcg/actuation 1 puff inhalation Q6H PRN Sob &/Or 07/28/20 06/14/22 History aerosol inhaler Wheezing ipratropium 0.5 mg-albuterol 3 mg 3 ml inhalation Q4H PRN shortness 12/29/20 06/08/22 Rx (2.5 mg base)/3 mL nebulization of breath or wheezing #180 mL soln nebulizer and compressor #1 ea 06/11/22 Unknown Rx primidone 50 mg tablet 150 mg PO QHS seizures 30 days #90 01/10/24 Unknown History tabs prazosin 2 mg capsule 2 mg PO QHS 01/12/24 Unknown History budesonide 1 mg/2 mL suspension 1 mg (2 mL) inhalation BID #60 mL 02/03/24 Unknown Rx for nebulization nitroglycerin 0.4 mg sublingual 0.4 mg sublingual Q5M PRN Chest 02/08/24 Unknown Rx tablet Pain #25 tabs metoprolol succinate 25 mg 12.5 mg (1/2 x 25 mg) PO DAILY #45 02/13/24 Unknown Rx tablet,extended release 24 hr TABLETS hydroxyzine HCl 25 mg tablet 50 mg PO BID 06/21/24 Unknown History clonazepam 0.5 mg tablet 0.5 mg PO QHS PRN anxiety 10/16/24 Unknown History clopidogrel 75 mg tablet (Plavix) 75 mg PO DAILY 10/16/24 Unknown History furosemide 20 mg tablet (Lasix) 20 mg PO BID 10/16/24 Unknown History sertraline 100 mg tablet 150 mg PO DAILY mood 10/16/24 Unknown History Allergy/AdvReac Type Severity Reaction Status Date / Time Iodinated Contrast Media Allergy Hives Verified 10/16/24 16:24 (Iodinated Contrast Media - IV Dye) mesalamine (From Asacol) Allergy GASTRIC Verified 10/16/24 16:24 HEMORRHAGE tetracycline (Tetracycline) Allergy Hives Verified 10/16/24 16:24 pravastatin AdvReac Intermediate Upset Verified 10/16/24 16:24 Stomach atorvastatin (From Lipitor) AdvReac myalgia Verified 10/16/24 16:24 Family History Father Hypertension Colon cancer Alcoholism Mother Cancer LUNG CANCER/ SMOKER Father , MELANOMA No problems noted. Surgical History S/P partial lobectomy of lung interstim placement (~08/05/20) Presence of coronary angioplasty implant and graft (~03/12/18) History of cataract surgery History of abdominal surgery History of total hysterectomy History of cholecystectomy History of bowel resection Hx of appendectomy Presence of stent in coronary artery (~06/15/22) Aortocoronary bypass status (~05/12/04) Postsurgical percutaneous transluminal coronary angioplasty (PTCA) status (~03/12/18) Social History adopted: No housing: house number of children: 1 current occupational status: retired current occupational exposures/hazards: No Smoking Status: Current every day smoker tobacco type: cigarettes Tobacco: How many years used: 50 how long ago did patient quit smokin weeks ago alcohol intake: never substance use type: does not use caffeine: Yes Type: carbonated beverages Number of servings: 2 ROS ROS ED Constitutional Constitutional ED: Denies chills or fever(s) Eyes Eyes: Denies blurry vision or change in vision ENT ENT ED: Denies rhinorrhea or sore throat Cardiovascular Cardiovascular: Reports chest pain; Denies palpitations Respiratory/Chest Respiratory/Chest: Reports cough, dyspnea and sputum Gastrointestinal Gastrointestinal: Denies nausea or vomiting Genitourinary Genitourinary ED: Denies dysuria or hematuria Musculoskeletal Musculoskeletal: Denies back pain or neck pain Integumentary Denies abscess or rash Neurologic Neurologic: Denies headache(s) or weakness Allergic/Immunologic Allergic/Immunologic ED: Denies mouth swelling or urticaria EXAM Physical Exam Const Vital Signs: 10/16/24 16:24 10/16/24 16:27 10/16/24 16:38 Temperature 98.5 F 98.5 F Temperature Source Oral Oral Pulse Rate 95 95 Respiratory Rate 20 H 20 H Respiratory Effort Short of Breath Labored Respiratory Depth Shallow Respiratory Pattern Tachypnea Blood Pressure 123/63 H 123/63 H Blood Pressure Mean 83 83 Pulse Ox 100 100 Oxygen Delivery Method Room Air Room Air Room Air 10/16/24 17:11 10/16/24 17:27 10/16/24 18:01 Temperature 98 F 99.5 F H Temperature Source Oral Oral Pulse Rate 85 88 93 Respiratory Rate 25 H 16 30 H Respiratory Effort Respiratory Depth Respiratory Pattern Tachypnea Blood Pressure 132/84 H 143/86 H Blood Pressure Mean 100 105 Pulse Ox 94 98 Oxygen Delivery Method Room Air Room Air 10/16/24 18:32 Temperature 97.4 F L Temperature Source Oral Pulse Rate 104 H Respiratory Rate 26 H Respiratory Effort Respiratory Depth Respiratory Pattern Blood Pressure 139/80 H Blood Pressure Mean 99 Pulse Ox 96 Oxygen Delivery Method Room Air Positive well nourished and well developed General Appearance ED: well developed and NAD HEENT Reports moist mucous membranes Neck supple and no JVD Chest Wall Chest Narrative: There is tenderness to palpation of the left lower chest wall. There is no bony crepitance or step-off. There is no subcutaneous emphysema. Resp normal respiratory effort and clear to auscultation bilaterally Cardio regular rate and regular rhythm GI non-tender and non-distended Palpation: soft Extremity normal to inspection General Extremety ED: Negative for edema or tenderness General Extremity: Negative for edema Neuro oriented x3, CN's II-XII intact bilaterally and no sensory deficits noted Sensorium / Orientation: alert Motor Exam: strength 5/5 throughout Psych mental status grossly normal MDM MDM MDM Narrative Medical decision making narrative: Differential diagnose includes pneumonia, bronchitis, pneumothorax, COPD exacerbation, cardiac dysrhythmia, cardiac ischemia, musculoskeletal pain, and anxiety. EKG will be obtained to assess for cardiac dysrhythmia and cardiac ischemia. Chest x-ray will be obtained to assess for pneumonia and pneumothorax. CBC will be obtained to assess for leukocytosis and anemia. Basic metabolic profile will be obtained to assess for electrolyte abnormality and renal function. High-sensitivity troponin will be obtained to assess for cardiac ischemia. Lab Data Attestation: I reviewed the patient's lab results. Lab results narrative: CBC was reviewed. Hemoglobin was 7.0 and hematocrit was 24.8. Platelets were normal. Basic metabolic profile was reviewed and was essentially within normal limits. High-sensitivity troponin was reviewed and was elevated at 139. Labs: Laboratory Results - last 24 hr 10/16/24 17:03 WBC 9.2 RBC 3.70 L Hgb 7.0 L Hct 24.8 L MCV 67.0 L MCH 18.9 L MCHC 28.2 L RDW Std Deviation 44.3 H RDW Coeff of Kit 18.7 H Plt Count 172 MPV 10.0 Immature Gran % (Auto) 0.900 Neut % (Auto) 75.1 H Lymph % (Auto) 12.8 L [place] % (Auto) 10.2 H Eos % (Auto) 0.6 Baso % (Auto) 0.4 Absolute Neuts (auto) 6.9 Absolute Lymphs (auto) 1.18 Nucleated RBC % 0 Sodium 133 L Potassium 3.8 Chloride 102 Carbon Dioxide 24.0 Anion Gap 6 BUN 11 Creatinine 1.01 Est GFR (MDRD) Af Amer 70 Est GFR (MDRD) Non-Af 58 L BUN/Creatinine Ratio 10.9 Glucose 110 H Calcium 9.2 Troponin I High Sens 139 H* Radiography Diagnostic Testing: Clinical Impression(s) from Imaging Studies Chest X-Ray 10/16/24 16:55 IMPRESSION: Grossly stable appearance and size of the spiculated 4.8 cm spiculated mass density along the lateral mid right pleural surface consistent with malignancy. Electronically Signed: Nas Montes De Oca MD at 18:11 EST , [place] and lateral chest x-ray was obtained. There are 2 views. On my independent interpretation, lung casas show a 4.8 cm mass along the right lateral pleural surface. This is unchanged compared to previous chest x-ray dated 02/22/2024 there is normal cardiac silhouette. Bony thorax is normal. There is no acute process noted. Radiologist also interpreted the x-ray and agrees. EKG Initial EKG: Attestation: I personally reviewed and interpreted this EKG as follows: Interpretation: Sinus Rhythm (82) and No Acute Injury Pattern Comments: EKG was obtained. On my independent interpretation, it showed a normal sinus rhythm with a rate of 82. SC interval, QRS interval, and QTc intervals were all normal. Marilla was normal. There are no acute ST or T wave changes. Prior EKG tracings: available for review Prior: Unchanged (02/22/2024) Management Discussion w/another healthcare provider: Hospitalist Treatment and Re-Evaluation :: Patient was given a DuoNeb aerosol here. Patient was given aspirin. Patient was advised of her findings. Patient was advised that her pain may be cardiac related in light of the elevated troponin. I recommended admission to the hospital. Patient is agreeable with this. Case was discussed with the hosp italist. She will admit the patient to PCU. Patient understood and was agreeable with the plan. All questions were answered. Discharge Plan Dx/Rx/DC Orders Clinical Impression: Chest pain, Elevated troponin, Lung cancer Disposition Disposition: Acute Care Hospital [facility]
--- NOTE | 2024-10-16 16:55 | RAD_ITS ---
STUDY: X-RAY CHEST REASON FOR EXAM: Female, 69 years old. Cough TECHNIQUE: Frontal and lateral views of the chest. COMPARISON: Chest x-ray 02/22/2024, CT scan 05/18/2024. FINDINGS: Grossly stable appearance and size of the spiculated 4.8 cm spiculated mass density along the lateral mid right pleural surface. The appearance is consistent with malignancy. No infiltrates. No effusion. There is mild cardiac enlargement. There has been CABG. Normal mediastinum and jenna. Normal visualized pulmonary arteries. Normal visualized aortic arch and descending thoracic aorta. Normal visualized thoracic spine. Normal visualized ribs, clavicles, and shoulders. There is no demonstrated abnormality of the visualized soft tissue structures of the upper abdomen. RAD/Chest PA and Lateral IMPRESSION: Grossly stable appearance and size of the spiculated 4.8 cm spiculated mass density along the lateral mid right pleural surface consistent with malignancy. Electronically Signed: Nas Montes De Oca MD at 18:11 EST ,
--- NOTE | 2024-10-16 16:55 | EKG12_ITS ---
Test Reason : CP ADMISSION Blood Pressure : */* mmHG Vent. Rate : 83 BPM Atrial Rate : 83 BPM P-R Int : 164 ms QRS Dur : 94 ms QT Int : 392 ms P-R-T Axes : 59 9 37 degrees QTcB Int : 460 ms Normal sinus rhythm Normal ECG When compared with ECG of 16-Oct-2024 17:14, MANUAL COMPARISON REQUIRED DATA IS UNCONFIRMED Confirmed by JOSEPHINE CHOI, LONA ([id number]), restaurant expeditor [employer] GUERRA ([id number]) on 10/17/2024 2:17:02 PM Referred By: COSME Confirmed By: LONA BURTON MD
[2024-10-16] MEDS: Ipratropium/Albuterol Sulfate 3 ML AMPUL.NEB INHALATION (17:09)
[2024-10-16 17:30] LABS: Absolute Lymphocyte Count 1.18 X10^3/uL (0.83-4.51); Absolute Neutrophil Count 6.9 X10^3/uL (2.0-7.7); Basophil# 0.04 X10^3/uL; Basophil% 0.4 % (0-1); Eosinophil# 0.06 X10^3/uL; Eosinophils% 0.6 % (0-5); Hematocrit 24.8 % (37-47); Lymphocyte # 1.18 X10^3/ul (0.83-4.51); Lymphocyte % 12.8 % (19-41); Mean Corp Hgb Conc 28.2 g/dL (32-36); Mean Corpuscular Hgb 18.9 pg (27.0-32.0); Monocyte# 0.94 X10^3/uL; Monocyte% 10.2 % (0-10); NRBC Flagged by Analyzer 0 % (0-5); Neutrophil # 6.94 X10^3/uL (2.7-7.7); Neutrophil % 75.1 % (47-70); Platelet Count 172 K/mm3 (150-450); RBC Distribution Width CV 18.7 % (11.6-14.6); RBC Distribution Width SD 44.3 fl (35.1-43.9); White Blood Count 9.2 K/mm3 (4.4-11.0)
[2024-10-16 17:35] LABS: Anion Gap 6 (5-15); BUN 11 mg/dL (7-18); BUN/Creat Ratio 10.9 RATIO (10-20); Calcium,Total 9.2 mg/dL (8.5-10.1); Chloride 102 mmol/L (98-107); Creatinine, Serum 1.01 mg/dL (0.55-1.02); EST Glomerular Filtration Rate 58 mL/min (>60); Est Glom Filt Rate - Afr Amer 70 mL/min (>60); Glucose 110 mg/dL (74-106); Potassium 3.8 mmol/L (3.5-5.1); Sodium Level 133 mmol/L (136-145); Troponin-I HS 139 pg/mL (3.0-54.0)
[2024-10-16] MEDS: Aspirin 81 MG TAB.CHEW 324 MG PO (18:01)
--- NOTE | 2024-10-16 19:28 | PCM.HP.STD ---
HPI - General General Date of Admission: 10/16/24 Date of Service: 10/16/24 Chief Complaint: Chest pain, cough, dyspnea. HPI Narrative The patient is a 69 y/o F w/ PMHx: Anxiety and Depression, COPD, CAD s/p CABG and PCI, COPD, HTN, HLD, Hx Lung CA s/p remote partial lobectomy status postsurgical excision and radiation therapy with now known right upper and middle lobe pleural-based density/thickening with evidence of bronchiectasis consistent with postradiation fibrosis, Tobacco use, Anxiety and Depression, Chronic Diastolic CHF, HOWARD non-compliant with CPAP/BIPAP per discussions using 2L NC q HS, Chronic anemia w/ Hx GI bleed who presents to the [facility] ED on 10/16/2024 with history of left lower chest discomfort with associated cough and dyspnea which has been worsening over the last 4-5 weeks, gradually worsening noted to be sharp, worse with deep inspiration with productive sputum although occasionally clear with initial fever however he notes that is improved prompting eventual ED evaluation to be cautious. She notes that her daughter had also been similarly ill with similar symptoms but has since improved. She reports fever, chills, productive cough, shortness of breath, wheezing and significant pain to her ribs especially with coughing. Workup in the ED included T98.5, heart rate 95, BP 123/63, respiratory rate 20, 100% on room air with most recent repeat vital signs T99.2 Oral, heart rate 110, BP 135/111, respiratory rate 22, 95% on room air, CBC with WBC 9.2, N17.0, MCV 67, platelet 172 without marked shift, BMP with sodium 133, BUN/creatinine 11/1.01, GFR 58, glucose 110, troponin initial 139 with repeat delta pending, prior to this most recent 02/22/2024 troponin 36, chest x-ray with grossly stable appearing and sized spiculated 4.8 cm spiculated mass density along the lateral mid right pleural surface consistent with malignancy which is known, EKG with sinus rhythm with no acute evidence of ischemia unchanged from previous. In the ED patient was administered DuoNeb therapy, aspirin full-strength. [facility] Medical History Anxiety Atherosclerotic heart disease of [place] coronary artery with unstable angina pectoris Congestive heart failure History of COPD Anemia Angina of effort Myocardial infarction, silent Adenocarcinoma of lung, stage 1 Lung cancer Melanoma Pure hypercholesterolemia Worsening angina Chest pain, unspecified HOWARD (obstructive sleep apnea) Osteoarthritis DDD (degenerative disc disease) Premature ventricular contraction Pericardial effusion Atherosclerotic heart disease of [place] coronary artery without angina pectoris Nonrheumatic mitral (valve) prolapse Tobacco abuse Essential hypertension Home Medications ?Medication ?Instructions ?Recorded ?Last Taken ?Type omeprazole 20 mg capsule,delayed 20 mg PO DAILY acid reflux 02/04/16 06/13/22 History release albuterol sulfate 90 mcg/actuation 1 puff inhalation Q6H PRN Sob &/Or 07/28/20 06/14/22 History aerosol inhaler Wheezing ipratropium 0.5 mg-albuterol 3 mg 3 ml inhalation Q4H PRN shortness 12/29/20 06/08/22 Rx (2.5 mg base)/3 mL nebulization of breath or wheezing #180 mL soln nebulizer and compressor #1 ea 06/11/22 Unknown Rx primidone 50 mg tablet 150 mg PO QHS seizures 30 days #90 01/10/24 Unknown History tabs prazosin 2 mg capsule 2 mg PO QHS 01/12/24 Unknown History budesonide 1 mg/2 mL suspension 1 mg (2 mL) inhalation BID #60 mL 02/03/24 Unknown Rx for nebulization nitroglycerin 0.4 mg sublingual 0.4 mg sublingual Q5M PRN Chest 02/08/24 Unknown Rx tablet Pain #25 tabs metoprolol succinate 25 mg 12.5 mg (1/2 x 25 mg) PO DAILY #45 02/13/24 Unknown Rx tablet,extended release 24 hr TABLETS hydroxyzine HCl 25 mg tablet 50 mg PO BID 06/21/24 Unknown History clonazepam 0.5 mg tablet 0.5 mg PO QHS PRN anxiety 10/16/24 Unknown History clopidogrel 75 mg tablet (Plavix) 75 mg PO DAILY 10/16/24 Unknown History furosemide 20 mg tablet (Lasix) 20 mg PO BID 10/16/24 Unknown History sertraline 100 mg tablet 150 mg PO DAILY mood 10/16/24 Unknown History Allergy/AdvReac Type Severity Reaction Status Date / Time Iodinated Contrast Media Allergy Hives Verified 10/16/24 16:24 (Iodinated Contrast Media - IV Dye) mesalamine (From Asacol) Allergy GASTRIC Verified 10/16/24 16:24 HEMORRHAGE tetracycline (Tetracycline) Allergy Hives Verified 10/16/24 16:24 pravastatin AdvReac Intermediate Upset Verified 10/16/24 16:24 Stomach atorvastatin (From Lipitor) AdvReac myalgia Verified 10/16/24 16:24 Family History Father Hypertension Colon cancer Alcoholism Mother Cancer LUNG CANCER/ SMOKER Father , MELANOMA No problems noted. Surgical History S/P partial lobectomy of lung interstim placement (~08/05/20) Presence of coronary angioplasty implant and graft (~03/12/18) History of cataract surgery History of abdominal surgery History of total hysterectomy History of cholecystectomy History of bowel resection Hx of appendectomy Presence of stent in coronary artery (~06/15/22) Aortocoronary bypass status (~05/12/04) Postsurgical percutaneous transluminal coronary angioplasty (PTCA) status (~03/12/18) Social History adopted: No housing: house number of children: 1 current occupational status: retired current occupational exposures/hazards: No Smoking Status: Current every day smoker tobacco type: cigarettes Tobacco: How many years used: 50 how long ago did patient quit smokin weeks ago alcohol intake: never substance use type: does not use caffeine: Yes Type: carbonated beverages Number of servings: 2 ROS ROS Narrative Admission Review of Systems: CONSTITUTIONAL: No weight loss, + fever, chills, weakness or fatigue. HEENT: + Congestion, rhinorrhea, sore throat. Eyes: No visual loss, blurred vision, double vision or yellow sclerae. Ears, Nose, Throat: No hearing loss, sneezing. SKIN: No rash or itching, lesions, wounds. CARDIOVASCULAR: + Chest pain, pleuritic chest discomfort. No palpitations, edema, orthopnea, syncopal events. RESPIRATORY: + Dyspnea, productive cough, occasional wheezing. No hemoptysis. GASTROINTESTINAL: + Anorexia. No nausea, vomiting or diarrhea, abdominal pain, melena, BRBPR. GENITOURINARY: No dysuria, frequency, urgency or retention. NEUROLOGICAL: No headache, dizziness, syncope, paralysis, ataxia, numbness or tingling in the extremities, focal weakness, change in bowel or bladder control, seizure. MUSCULOSKELETAL: + muscle, back pain, joint pain or stiffness. HEMATOLOGIC: + Chronic anemia, easy bleeding/bruising. LYMPHATICS: No enlarged nodes. No history of splenectomy. PSYCHIATRIC: + History of anxiety and depression. ENDOCRINOLOGIC: No reports of sweating, cold or heat intolerance. No polyuria or polydipsia. ALLERGIES: + History of hives. Vital Signs Vital Signs Vital Signs: 10/16/24 16:24 10/16/24 16:27 10/16/24 16:38 Temperature 98.5 F 98.5 F Temperature Source Oral Oral Pulse Rate 95 95 Respiratory Rate 20 H 20 H Respiratory Effort Short of Breath Labored Respiratory Depth Shallow Respiratory Pattern Tachypnea Blood Pressure 123/63 H 123/63 H Blood Pressure Mean 83 83 Pulse Ox 100 100 Oxygen Delivery Method Room Air Room Air Room Air 10/16/24 17:11 10/16/24 17:27 10/16/24 18:01 Temperature 98 F 99.5 F H Temperature Source Oral Oral Pulse Rate 85 88 93 Respiratory Rate 25 H 16 30 H Respiratory Effort Respiratory Depth Respiratory Pattern Tachypnea Blood Pressure 132/84 H 143/86 H Blood Pressure Mean 100 105 Pulse Ox 94 98 Oxygen Delivery Method Room Air Room Air 10/16/24 18:32 10/16/24 19:00 10/16/24 19:20 Temperature 97.4 F L 99.2 F H 99.2 F H Temperature Source Oral Oral Pulse Rate 104 H 110 H 86 Respiratory Rate 26 H 22 H 25 H Respiratory Effort Respiratory Depth Respiratory Pattern Blood Pressure 139/80 H 135/111 H 131/72 H Blood Pressure Mean 99 119 91 Pulse Ox 96 95 96 Oxygen Delivery Method Room Air Room Air Weight Weight: 152 lb Body Mass Index (BMI) 26.9 Results Lab / Micro Data 10/16/24 17:03 10/16/24 17:03 Labs: Laboratory Results - last 24 hr 10/16/24 17:03: WBC 9.2, RBC 3.70 L, Hgb 7.0 L, Hct 24.8 L, MCV 67.0 L, MCH 18.9 L, MCHC 28.2 L, RDW Std Deviation 44.3 H, RDW Coeff of Kit 18.7 H, Plt Count 172, MPV 10.0, Immature Gran % (Auto) 0.900, Neut % (Auto) 75.1 H, Lymph % (Auto) 12.8 L, Stoddard % (Auto) 10.2 H, Eos % (Auto) 0.6, Baso % (Auto) 0.4, Absolute Neuts (auto) 6.9, Absolute Lymphs (auto) 1.18, Nucleated RBC % 0, Sodium 133 L, Potassium 3.8, Chloride 102, Carbon Dioxide 24.0, Anion Gap 6, BUN 11, Creatinine 1.01, Est GFR (MDRD) Af Amer 70, Est GFR (MDRD) Non-Af 58 L, BUN/Creatinine Ratio 10.9, Glucose 110 H, Calcium 9.2, Troponin I High Sens 139 H* Imaging Radiology Impression Chest X-Ray 10/16/24 16:55 IMPRESSION: Grossly stable appearance and size of the spiculated 4.8 cm spiculated mass density along the lateral mid right pleural surface consistent with malignancy. Electronically Signed: Nas Montes De Oca MD at 18:11 EST , Assessment & Plan Assessment/Plan (1) Chest pain: (2) Elevated troponin: PLAN: Plan The patient is a 69 y/o F w/ PMHx: Anxiety and Depression, COPD, CAD s/p CABG and PCI, COPD, HTN, HLD, Hx Lung CA s/p remote partial lobectomy status postsurgical excision and radiation therapy with now known right upper and middle lobe pleural-based density/thickening with evidence of bronchiectasis consistent with postradiation fibrosis, Tobacco use, Anxiety and Depression, Chronic Diastolic CHF, HOWARD non-compliant with CPAP/BIPAP per discussions using 2L NC q HS, Chronic anemia w/ Hx GI bleed who presents to the [facility] ED on 10/16/2024 with history of left lower chest discomfort with associated cough and dyspnea which has been worsening over the last 4-5 weeks, gradually worsening noted to be sharp, worse with deep inspiration with productive sputum although occasionally clear with initial fever however he notes that is improved prompting eventual ED evaluation to be cautious. #1. Chest Pain, dyspnea, productive cough, pleuritic chest discomfort secondary to Acute on Chronic COPD Exacerbation with concurrently with elevated cardiac enzyme, unclear significance, possibly demand ischemia given concern for acute viral syndrome/COPD exacerbation concurrently with recent similarly ill contacts: EKG in ED w/ sinus rhythm with no acute evidence of ischemia, initial troponin 139 with repeat delta pending. Will admit to PCU, maintain on a monitored bed, continue serial cardiac enzymes and EKGs. Obtain magnesium level upon admission. Will continue to monitor troponin and if rises further would initiate heparin drip however will hold immediately. Will continue aspirin, Plavix, noted statin intolerance, metoprolol home regimen, not on GAUTAM/ARB. FLP in AM. ECHO requested with most recent prior to this noted 06/10/2022 echocardiogram with EF 60%, moderately enlarged LA, mild MV stenosis, mild MV prolapse, moderate MVI, moderate TVI, trivial PVI, RVSP 57 mmHg consistent with pulmonary hypertension, transmitral diastolic flow velocity suggestive of diastolic dysfunction. Most recent cardiac catheterization noted 06/15/2022 with elevated LV end-diastolic pressure, [place] multivessel CAD, LM with stent patent, GREEN to LAD patent, SVG to OM 3 patent, SVG to RCA patent, left right collateral flow, right to left collateral flow with recommended continued medical therapy and referral for immediate PCI with ADOLPH to the proximal D1. Will maintain n.p.o. status after midnight in case need for intervention. Will additionally maintain on ATC budesonide therapy, as needed albuterol, encourage HOB, IS parameters, will obtain sputum Cx, respiratory viral panel, procalcitonin. If troponin continues to rise will plan to request Cardiology involvement. #2. Acute on chronic microcytic anemia: Admission hemoglobin 7.0, previous to this baseline had been 8-9, MCV 67, most recent 03/21/2024 hemoglobin 9.3, will obtain iron panel, ferritin, guaiac to be cautious, trend CBC. #3. 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 #4. Chronic COPD: Will hold home inhalers in the interim maintain on ATC budesonide therapy, PRN albuterol, HOB, IS parameters. #5. Chronic Kidney Disease Stage III, unclear subtype: Admission BUN/Cr 09/07.01, GFR 58, baseline renal function 0.9-1.1, repeat BMP in AM. #6. Anxiety depression: We will continue patient home clonazepam as needed and sertraline scheduled home regimen. #7. CAD: Status post CABG and PCI, will continue aspirin, Plavix cautiously given GI bleed history, continue metoprolol, not on GAUTAM inhibitor/ARB, not on statin therapy. Continue evaluation as noted above. #8. Hypertension: Continue home regimen including Lasix, metoprolol, PRN hydralazine. #9. Hyperlipidemia: FLP in AM, not on statin therapy secondary to intolerance history. #10. HOWARD: Does not use PAP therapy, uses 2L NC q HS only. #11. DVT prophylaxis: SCDs, Lovenox cautiously. #12. CODE status: Patient DEANGELO is her daughter Shira and living will is currently in place. It had also been her but he passed. Discussed CODE status at length including difference between FULL code, DNR-CCA and DNR-CC status. Following discussions about the differences in these status, requested Full Code status. Advanced Care Planning Face to Face Time: 16 minutes. Charges/Coding Visit Charges Inpatient E&M: 10183 Init Hosp L3 Procedures Hospitalists Procedures: 13664 Advncd Care Plan 30 Min
[2024-10-16] MEDS: Morphine 4 MG/ML Syringe IV (19:35)
[2024-10-16 19:47] LABS: Troponin-I HS 147 pg/mL (3.0-54.0)
--- NOTE | 2024-10-16 20:28 | EKG12_ITS ---
Test Reason : SOB Blood Pressure : */* mmHG Vent. Rate : 82 BPM Atrial Rate : 82 BPM P-R Int : 164 ms QRS Dur : 96 ms QT Int : 396 ms P-R-T Axes : 46 1 40 degrees QTcB Int : 462 ms Normal sinus rhythm Normal ECG When compared with ECG of 22-Feb-2024 16:55, Sinus rhythm has replaced Electronic ventricular pacemaker Confirmed by JOSEPHINE CHOI, LONA ([id number]), field map editor TRENT CAM ([id number]) on 10/24/2024 2:47:01 PM Referred By: Confirmed By: LONA BURTON MD
[2024-10-16 21:04] LABS: Magnesium 2.1 mg/dL (1.6-2.6)
[2024-10-16] MEDS: Acetaminophen 325 MG Tablet 650 MG PO (21:32)
[2024-10-16] MEDS: clonazePAM 0.5 MG Tablet PO (21:32)
[2024-10-16] MEDS: MELATONIN 3 MG TABLET PO (21:32)
[2024-10-16] MEDS: hydrOXYzine PAM 25 MG Capsule 50 MG PO (21:32)
[2024-10-16] MEDS: guaiFENesin 10 ML UDC (200MG/10ML) 20 ML PO (21:33)
[2024-10-16] MEDS: Primidone 50 MG Tablet 150 MG PO (21:39)
[2024-10-16] MEDS: 0.9% Normal Saline (1000mL) 1,000 ML 100 ML IV (21:39)
[2024-10-16] MEDS: Prazosin HCl 1 MG Capsule 2 MG PO (21:43)
[2024-10-16 21:48] LABS: Ferritin 19 ng/mL (8-252); Iron 17 ug/dL (50-170); Iron Binding Capacity,Total 416 ug/dL (250-450); PERCENT IRON SATURATION 4.1 % (15.0-55.0)
[2024-10-16] MEDS: Budesonide Respules 0.5 MG/2 ML AMPUL.NEB. INHALATION (21:50)
[2024-10-16 23:57] LABS: Procalcitonin 0.14 ng/mL (0.00-0.09)
[2024-10-17] VITALS (10 sets, daily range): BP systolic 120–134; BP diastolic 65–78; PULSE 70–88; RESP 16–20; TEMP 36.4–37.2; O2SAT 91–97; BMI 25.7
[2024-10-17] LABS: Troponin-I HS 132 pg/mL (3.0-54.0)
[2024-10-17] MEDS: 0.9% Saline Lock 10 ML Syringe IV (04:56)
--- NOTE | 2024-10-17 05:55 | ECHOD_ITS ---
Reason For Study: Elevated Troponins Procedure This was a 2D Doppler, Color Flow transthoracic echocardiogram. The study was technically difficult. Exam performed portable in patient room. Left Ventricle Normal LV size. Left ventricular systolic function is normal. The left ventricular ejection fraction is 60 %. No regional wall motion abnormalities noted. Right Ventricle Normal RV size. Normal systolic function. Atria The left atrium is moderately enlarged. Normal right atrium. Mitral Valve Bileaflet diffuse mitral valve thickening. The mitral papillary muscle appears thickened and/or calcified. Moderate (2+) eccentric mitral valve insufficiency. Tricuspid Valve Normal tricuspid valve. Mild (1+) tricuspid valve insufficiency. Pulmonary artery systolic pressure is 35 mmHg. Aortic Valve Trisinus/trileaflet aortic valve. Pulmonic Valve Normal pulmonic valve. Great Vessels Normal aortic root. The pulmonary artery is normal size. Inferior vena cava collapse with respiration. Pericardium/Pleural No pericardial effusion. MMode/2D Measurements & Calculations LVIDd: 5.4 cm IVSd: 1.0 cm LAV(MOD-bp): 81.1 ml LVIDs: 4.1 cm LVPWd: 1.1 cm LAV(MOD-bp) Indexed: 48.1 ml/m2 RVDd: 3.7 cm FS: 23.1 % LAV(MOD-sp2): 69.4 ml LAV(MOD-sp4): 91.7 ml SV(MOD-sp4): 68.3 ml SV(sp4-el): 72.7 ml LVAd ap4: 33.5 cm2 LVLd ap4: 8.1 cm SI(MOD-sp4): 40.5 ml/m2 EDV(MOD-sp4): 110.7 ml EDV(sp4-el): 117.9 ml LVAs ap4: 19.8 cm2 LVLs ap4: 7.4 cm ESV(MOD-sp4): 42.4 ml ESV(sp4-el): 45.3 ml EF(MOD-sp4): 61.7 % EF(sp4-el): 61.6 % LA A4 area: 26.8 cm2 LA dimension(2D): 5.2 cm RA A4 area: 14.4 cm2 TAPSE: 1.3 cm Time Measurements MV dec time: 0.34 sec Doppler Measurements & Calculations MV E max elisabeth: 229.9 cm/sec MV V2 max: 245.2 cm/sec MV P1/2t max elisabeth: 246.2 cm/sec MV A max elisabeth: 177.0 cm/sec MV max P.1 mmHg MV P1/2t: 116.1 msec MV E/A: 1.3 MV V2 mean: 166.1 cm/sec MV dec slope: 621.2 cm/sec2 MV mean P.3 mmHg MVA(P1/2t): 1.9 cm2 MV V2 VTI: 68.6 cm Ao V2 max: 186.1 cm/sec LV V1 max: 120.9 cm/sec MR max elisabeth: 514.2 cm/sec Ao max P.9 mmHg LV V1 max P.8 mmHg MR max P.8 mmHg Ao V2 mean: 127.4 cm/sec LV V1 mean P.0 mmHg MR mean elisabeth: 409.2 cm/sec Ao mean P.3 mmHg LV V1 mean: 80.6 cm/sec MR mean P.7 mmHg Ao V2 VTI: 38.0 cm LV V1 VTI: 28.6 cm MR VTI: 166.2 cm AV (velocity ratio): 0.75 PA V2 max: 106.3 cm/sec TR max elisabeth: 278.0 cm/sec PA V2 mean: 68.1 cm/sec TR max P.9 mmHg ECHO/Echo Complete Interpretation Summary Normal LV size. Left ventricular systolic function is normal. The left ventricular ejection fraction is 60 %. Moderate (2+) eccentric mitral valve insufficiency. Ordering Physician: Veronique Moulton Performed By: Hermelindo Javier RCS
[2024-10-17 06:40] LABS: Absolute Lymphocyte Count 0.78 X10^3/uL (0.83-4.51); Absolute Neutrophil Count 5.6 X10^3/uL (2.0-7.7); Basophil# 0.01 X10^3/uL; Basophil% 0.2 % (0-1); Hematocrit 23.3 % (37-47); Hemoglobin 6.3 g/dL (12.0-15.0); Lymphocyte # 0.78 X10^3/ul (0.83-4.51); Lymphocyte % 11.7 % (19-41); Mean Corpuscular Hgb 18.5 pg (27.0-32.0); Mean Corpuscular Volume 68.3 fL (81-99); Monocyte# 0.19 X10^3/uL; Monocyte% 2.9 % (0-10); NRBC Flagged by Analyzer 0 % (0-5); Neutrophil # 5.62 X10^3/uL (2.7-7.7); Neutrophil % 84.6 % (47-70); Platelet Count 167 K/mm3 (150-450); RBC Distribution Width CV 18.8 % (11.6-14.6); RBC Distribution Width SD 46.2 fl (35.1-43.9); Red Blood Count 3.41 M/mm3 (4.2-5.4); White Blood Count 6.6 K/mm3 (4.4-11.0)
[2024-10-17 07:25] LABS: ALB/GLOB Ratio 0.8 RATIO (0.9-2.4); AST(SGOT) 11 U/L (15-37); Alanine Aminotransfer ALT/SGPT 13 U/L (13-56); Alkaline Phosphatase 60 U/L (45-117); Anion Gap 5 (5-15); BUN 18 mg/dL (7-18); BUN/Creat Ratio 17.6 RATIO (10-20); Calcium,Total 8.9 mg/dL (8.5-10.1); Chloride 105 mmol/L (98-107); Cholesterol 126 mg/dL (200); Creatinine, Serum 1.02 mg/dL (0.55-1.02); EST Glomerular Filtration Rate 57 mL/min (>60); Est Glom Filt Rate - Afr Amer 69 mL/min (>60); Estimated Creatinine Clearance 48.79 ml/min; Globulin 3.8 g/dL (2.2-4.2); Glucose 129 mg/dL (74-106); High Density Lipoprotein 64 mg/dL; Potassium 4.4 mmol/L (3.5-5.1); Protein, Total 6.8 g/dL (6.4-8.2); Sodium Level 134 mmol/L (136-145); Triglycerides 61 mg/dL; Very Low Density Lipoprotein 12 mg/dL (5-40)
[2024-10-17] MEDS: Budesonide Respules 0.5 MG/2 ML AMPUL.NEB. INHALATION ×2 (07:38→19:27)
--- NOTE | 2024-10-17 07:47 | PN.HOSP_ITS ---
Reason for Visit Reason for Visit: Diagnoses Chest pain, unspecified (10/16/24) Other specified abnormal findings of blood chemistry (10/16/24) Subjective Subjective No further chest pain. Denies hematochezia. Objective Data Objective Data Vital Signs: Vital Signs Temp Pulse Resp BP Pulse Ox O2 Del Method 36.7 C 76 18 124/66 H 94 Room Air 10/17/24 05:00 10/17/24 05:00 10/17/24 05:00 10/17/24 05:00 10/17/24 05:00 10/17/24 05:00 Oxygen Delivery Method Room Air Weight: 65.771 kg Body Mass Index (BMI) 25.7 Intake & Output: Intake and Output for Last 24 Hours 10/15/24 10/16/24 10/17/24 23:59 23:59 23:59 Intake Total 700 / 700 Balance 700 / 700 Lab / Micro Data 10/17/24 05:34 10/17/24 05:34 Labs: Laboratory Results - last 24 hr 10/16/24 17:03: WBC 9.2, RBC 3.70 L, Hgb 7.0 L, Hct 24.8 L, MCV 67.0 L, MCH 18.9 L, MCHC 28.2 L, RDW Std Deviation 44.3 H, RDW Coeff of Kit 18.7 H, Plt Count 172, MPV 10.0, Immature Gran % (Auto) 0.900, Neut % (Auto) 75.1 H, Lymph % (Auto) 12.8 L, Cuming % (Auto) 10.2 H, Eos % (Auto) 0.6, Baso % (Auto) 0.4, Absolute Neuts (auto) 6.9, Absolute Lymphs (auto) 1.18, Nucleated RBC % 0, S odium 133 L, Potassium 3.8, Chloride 102, Carbon Dioxide 24.0, Anion Gap 6, BUN 11, Creatinine 1.01, Est GFR (MDRD) Af Amer 70, Est GFR (MDRD) Non-Af 58 L, BUN/Creatinine Ratio 10.9, Glucose 110 H, Calcium 9.2, Troponin I High Sens 139 H* 10/16/24 19:05: Magnesium 2.1, Iron 17 L, TIBC 416, Iron Saturation 4.1 L, Ferritin 19, Troponin I High Sens 147 H* 10/16/24 23:17: Troponin I High Sens 132 H*, Procalcitonin 0.14 H 10/17/24 05:34: WBC 6.6, RBC 3.41 L, Hgb 6.3 L, Hct 23.3 L, MCV 68.3 L, MCH 18.5 L, MCHC 27.0 L, RDW Std Deviation 46.2 H, RDW Coeff of Kit 18.8 H, Plt Count 167, MPV 10.0, Immature Gran % (Auto) 0.600, Neut % (Auto) 84.6 H, Lymph % (Auto) 11.7 L, Cuming % (Auto) 2.9, Eos % (Auto) 0.0, Baso % (Auto) 0.2, Absolute Neuts (auto) 5.6, Absolute Lymphs (auto) 0.78 L, Nucleated RBC % 0, Sodium 134 L , Potassium 4.4, Chloride 105, Carbon Dioxide 24.0, Anion Gap 5, BUN 18, Creatinine 1.02, Estim Creat Clear Calc 48.79, Est GFR (MDRD) Af Amer 69, Est GFR (MDRD) Non-Af 57 L, BUN/Creatinine Ratio 17.6, Glucose 129 H, Calcium 8.9, Total Bilirubin 0.40, AST 11 L, ALT 13, Alkaline Phosphatase 60, Total Protein 6.8, Albumin 3.0 L, Globulin 3.8, Albumin/Globulin Ratio 0.8 L, Triglycerides 61, Cholesterol 126, LDL Cholesterol 50, VLDL Cholesterol 12, HDL Cholesterol 64 Micro: Microbiology 10/17/24 01:17 Urine, Random Legionella Antigen - Final 10/17/24 01:17 Urine, Random Streptococcus pneumoniae Antigen (M - Final 10/16/24 21:40 Mucosa - Nose Respiratory Panel (PCR) - Final Radiography Diagnostic Testing: Radiology Impression Chest X-Ray 10/16/24 16:55 IMPRESSION: Grossly stable appearance and size of the spiculated 4.8 cm spiculated mass density along the lateral mid right pleural surface consistent with malignancy. Electronically Signed: Nas Montes De Oca MD at 18:11 EST , Physical Exam Const alert and no apparent distress Resp normal respiratory effort, no retractions, no use of accessory muscles and clear to auscultation bilaterally Cardio regular rate, regular rhythm, S1 normal heart sound and S2 normal heart sound GI normal to inspection, nondistended, normoactive bowel sounds, soft to palpation, non-tender, non-distended and hepatosplenomegaly Neuro Sensorium / Orientation: awake and alert Assessment & Plan Assessment/Plan (1) Chest pain: (2) Elevated troponin: PLAN: Plan elevated troponin * troponins peaked at 147, since trending down. * echo shows an EF of * could be demand ischemia given anemia in pt with known CAD Microcytic anemia * iron-deficiency * start IV iron. Transfuse 1 unit. Check hemoccult * Will eventually need endoscopy, but if remains stable, can be done as outpt. Chronic conditions: * lung adenocarcinoma stage IB: /p VATS converted to right thoracotomy and wedge resection 01/2021 considered in remission, received adjuvant radiation therapy in 2020, follow-up imaging with stable continued evidence pleural-based density/thickening in the right upper and right middle lobes with evidence of bronchiectasis suspicious for postradiation fibrosis, following routinely with oncology and radiation oncology with most recent visit noted 05/22/2024, encourage continued outpatient follow-up as previously arranged. CXR reviewed and shows a RML wedge-shaped lesion, unchanged since 02/22/24. * CAD: hold clopidogrel as last intervention was in 2021 given anemia. Continue ASA, metoprolol succinate. No statins given intolerance. Would not resume clopidogrel upon discharge. * COPD: stable. VTE prophylaxis: SCDs. Charges/Coding Visit Charges Inpatient E&M: 07967 Subs Hosp L2
[2024-10-17] MEDS: Sodium Ferric Gluconat 250 MG in 0.9% Normal Saline 250 ML 135 MG IV (10:21)
[2024-10-17] MEDS: hydrOXYzine PAM 25 MG Capsule 50 MG PO ×2 (10:25→22:37)
[2024-10-17] MEDS: Aspirin E.C. 81 MG Tablet PO (10:25)
[2024-10-17] MEDS: Metoprolol(XL)Succ 25 MG Tablet 12.5 MG PO (10:26)
[2024-10-17] MEDS: Sertraline 50 MG Tablet 150 MG PO (10:26)
[2024-10-17] MEDS: Clopidogrel Bisulfate 75 MG Tablet PO (10:28)
[2024-10-17] MEDS: Pantoprazole Sodium 20 MG Tablet PO (10:28)
[2024-10-17] MEDS: Furosemide 20 MG Tablet PO ×2 (10:28→18:32)
--- NOTE | 2024-10-17 12:15 | CASEMGMT ---
RN CM Face to Face with patient for initial transition planning/care coordination assessment. RN CM introduced self and role at [facility]. Patient lying in bed, alert and oriented. Patient willing to participate in assessment and is able to answer all questions appropriately. Care providers, pharmacy, and demographics verified. Strata: 2 PCP: Ilene Specialists: Carmelo, oncology radiology; Shabbir Garcia, mobile marketing specialist; Nuno, director risk; Preferred Pharmacy: [facility] Insurance: [employer] Prescription Benefit: yes Living Will/HPOA: yes, daughter Tracey Cheney LNOK: daughter Living Arrangements: Patient lives with daughter in a mobile home with ramp to enter. Patient states she is independent at home. Transportation: self, daughter DME/HHC: Patient has shower chair, cane, hospital bed, walker, grab bars, nebulizer, pulse ox, and home oxygen through [employer]. No previous HHC or SNF Patient wishes to discharge home, denies need for home health at this time. Patient states he has no further needs or concerns at this time. CM to follow for discharge planning needs that may arise. Disposition Plan: Patient to discharge home with family support and follow-up plans in place. Rashida BOJORQUEZ, RN, CM
[2024-10-17] MEDS: 0.9% Normal Saline (100mL Bag) 100 ML 15 ML IV (12:56)
[2024-10-17] MEDS: Primidone 50 MG Tablet 150 MG PO (22:36)
[2024-10-17] MEDS: MELATONIN 3 MG TABLET PO (22:37)
[2024-10-17] MEDS: clonazePAM 0.5 MG Tablet PO (22:37)
[2024-10-17] MEDS: Prazosin HCl 1 MG Capsule 2 MG PO (22:37)
[2024-10-18 02:40] VITALS: BMI 25.7
[2024-10-18] MEDS: 0.9% Saline Lock 10 ML Syringe IV (05:11)
[2024-10-18 05:16] VITALS: BP 113/80; PULSE 63; RESP 16; TEMP 36.4; O2SAT 95
[2024-10-18 07:05] VITALS: PULSE 89; RESP 20; O2SAT 93
[2024-10-18] MEDS: Budesonide Respules 0.5 MG/2 ML AMPUL.NEB. INHALATION (07:05)
[2024-10-18 08:40] VITALS: BP 113/73; PULSE 75; RESP 16; TEMP 36.6; O2SAT 93
[2024-10-18 08:42] VITALS: BP 113/73; PULSE 75
[2024-10-18] MEDS: Sertraline 50 MG Tablet 150 MG PO (08:42)
[2024-10-18] MEDS: Metoprolol(XL)Succ 25 MG Tablet 12.5 MG PO (08:42)
[2024-10-18] MEDS: hydrOXYzine PAM 25 MG Capsule 50 MG PO (08:42)
[2024-10-18] MEDS: Aspirin E.C. 81 MG Tablet PO (08:43)
[2024-10-18] MEDS: Furosemide 20 MG Tablet PO (08:43)
[2024-10-18] MEDS: Pantoprazole Sodium 20 MG Tablet PO (08:43)
[2024-10-18 10:14] LABS: Absolute Lymphocyte Count 0.84 X10^3/uL (0.83-4.51); Absolute Neutrophil Count 10.9 X10^3/uL (2.0-7.7); Basophil# 0.01 X10^3/uL; Basophil% 0.1 % (0-1); Hematocrit 29.8 % (37-47); Hemoglobin 8.6 g/dL (12.0-15.0); Lymphocyte # 0.84 X10^3/ul (0.83-4.51); Mean Corp Hgb Conc 28.9 g/dL (32-36); Mean Corpuscular Hgb 20.3 pg (27.0-32.0); Mean Corpuscular Volume 70.4 fL (81-99); Monocyte% 1.7 % (0-10); NRBC Flagged by Analyzer 0 % (0-5); Neutrophil # 10.88 X10^3/uL (2.7-7.7); POSITIVE MORPHOLOGY YES; Platelet Count 219 K/mm3 (150-450); RBC Distribution Width CV 20.3 % (11.6-14.6); RBC Distribution Width SD 50.3 fl (35.1-43.9); Red Blood Count 4.23 M/mm3 (4.2-5.4); White Blood Count 12.1 K/mm3 (4.4-11.0)
[2024-10-18] MEDS: Sodium Ferric Gluconat/Sucrose 250 MG in 0.9% Normal Saline (250mL Bag) 250 ML 135 MG IV (12:06)
--- NOTE | 2024-10-18 13:00 | PCM.DC.SUM ---
Providers Date of Admission: 10/16/24 Primary Care Physician: Dr. Sen Odom MD Reason For Visit: CP, ELEVATED TROPONIN Diagnosis Discharge Diagnosis (1) Chest pain: Status: Acute Code(s): R07.9 - Chest pain, unspecified (2) Elevated troponin: Status: Acute Code(s): R79.89 - Other specified abnormal findings of blood chemistry Plan elevated troponin troponins peaked at 147, since trending down. echo shows an EF of could be demand ischemia given anemia in pt with known CAD Microcytic anemia iron-deficiency Received iron infusions x2. Transfused 1 unit. Check hemoccult. Start ferrous sulfate QOD. Will eventually need endoscopy, but if remains stable, can be done as outpt. Chronic conditions: lung adenocarcinoma stage IB: /p VATS converted to right thoracotomy and wedge resection 01/2021 considered in remission, received adjuvant radiation therapy in 2020, follow-up imaging with stable continued evidence pleural-based density/thickening in the right upper and right middle lobes with evidence of bronchiectasis suspicious for postradiation fibrosis, following routinely with oncology and radiation oncology with most recent visit noted 05/22/2024, encourage continued outpatient follow-up as previously arranged. CXR reviewed and shows a RML wedge-shaped lesion, unchanged since 02/22/24. CAD: hold clopidogrel as last intervention was in 2021 given anemia. Continue ASA, metoprolol succinate. No statins given intolerance. Would not resume clopidogrel upon discharge. COPD: stable. VTE prophylaxis: SCDs. Medications at Discharge Home Medications omeprazole 20 mg capsule,delayed release 20 mg PO DAILY acid reflux 02/04/16 albuterol sulfate 90 mcg/actuation aerosol inhaler 1 puff inhalation Q6H PRN Sob &/Or Wheezing 07/28/20 ipratropium 0.5 mg-albuterol 3 mg (2.5 mg base)/3 mL nebulization soln 3 ml inhalation Q4H PRN shortness of breath or wheezing #180 mL 12/29/20 nebulizer and compressor #1 ea 06/11/22 primidone 50 mg tablet 150 mg PO QHS seizures 30 days #90 tabs 01/10/24 prazosin 2 mg capsule 2 mg PO QHS 01/12/24 budesonide 1 mg/2 mL suspension for nebulization 1 mg (2 mL) inhalation BID #60 mL 02/03/24 nitroglycerin 0.4 mg sublingual tablet 0.4 mg sublingual Q5M PRN Chest Pain #25 tabs 02/08/24 metoprolol succinate 25 mg tablet,extended release 24 hr 12.5 mg (1/2 x 25 mg) PO DAILY #45 TABLETS 02/13/24 hydroxyzine HCl 25 mg tablet 50 mg PO BID 06/21/24 clonazepam 0.5 mg tablet 0.5 mg PO QHS PRN anxiety 10/16/24 clopidogrel 75 mg tablet (Plavix) 75 mg PO DAILY 10/16/24 furosemide 20 mg tablet (Lasix) 20 mg PO BID 10/16/24 sertraline 100 mg tablet 150 mg PO DAILY mood 10/16/24 ferrous sulfate 324 mg (65 mg iron) tablet,delayed release 324 mg PO QODAY #30 tabs 10/18/24 Weight / BMI Weight Weight: 65.77 kg Body Mass Index (BMI) 25.7 ABG / Lab / Microbiology Data 10/18/24 09:41 10/17/24 05:34 Laboratory: Laboratory Results - last 24 hr 10/17/24 10:41: Blood Type A POSITIVE, Antibody Screen NEGATIVE, Crossmatch See Detail 10/18/24 09:41: WBC 12.1 H, RBC 4.23, Hgb 8.6 L, Hct 29.8 L, MCV 70.4 L, MCH 20.3 L, MCHC 28.9 L D, RDW Std Deviation 50.3 H, RDW Coeff of Kit 20.3 H, Plt Count 219, MPV 10.0, Immature Gran % (Auto) 1.200 H, Neut % (Auto) 90.0 H, Lymph % (Auto) 7.0 L, Grady % (Auto) 1.7, Eos % (Auto) 0.0, Baso % (Auto) 0.1, Absolute Neuts (auto) 10.9 H, Absolute Lymphs (auto) 0.84, Nucleated RBC % 0 Microbiology: Microbiology 10/17/24 01:17 Urine, Random Legionella Antigen - Final 10/17/24 01:17 Urine, Random Streptococcus pneumoniae Antigen (M - Final 10/16/24 21:40 Mucosa - Nose Respiratory Panel (PCR) - Final D/C Instructions Discharge Diet: Low fat / Low cholesterol DC O2, CPAP, BIPAP Needs Additional Home O2 Discharge instructions: No DC home with Oxygen: No Meaningful Use Info Meaningful Use Meaningful Use Diagnoses (Choose all that apply): None applicable Ischemic Stroke Statin Dosing Therapy Reference: STATIN DOSE THERAPY REFERENCE: * Patients > 75 years receive moderate or high dose statin therapy. * Patients 75 years or YOUNGER should receive HIGH intensity statin dose unless contraindicated. You will be required to document reason for non-treatment if statin daily dose does not meet guidelines. HIGH DOSE STATIN THERAPY DAILY Atorvastatin > than or = to 40 mg Rosuvastatin > than or = to 20 mg Amlodipine + Atorvastatin > than or = to 2.5/40 mg Ezetimibe + Simvastatin 10/80 mg Simvastatin 80mg Discharge Plan Admission Admit Date/Time: 10/16/24 19:48 Primary Reason for Your Visit: Anemia Attending Provider: Jevon Bustillo Primary Care Provider: Sen Odom Consulting Providers: Veronique Moulton Instructions Additional Instructions / Restrictions: You were anemic. That was likely the cause of your symptoms. You received intravenous iron and a unit of blood. You will continue with iron tablets at home. I recommend that you follow up with gastroenterology to be evaluated for repeat endoscopy. Discharge Orders/Prescriptions Prescriptions: New ferrous sulfate 324 mg (65 mg iron) tablet,delayed release (DR/EC) 324 mg PO QODAY Qty: 30 0RF Continued primidone 50 mg tablet 150 mg PO QHS 30 Days Qty: 90 budesonide 1 mg/2 mL suspension for nebulization 1 mg inhalation BID Qty: 60 6RF nitroglycerin 0.4 mg tablet, sublingual 0.4 mg SUBLINGUAL Q5M PRN (Reason: Chest Pain) Qty: 25 3RF Rx Instructions: Place one tab under tongue every 5 minutes x 3 doses as needed hydroxyzine HCl 25 mg tablet 50 mg PO BID omeprazole 20 MG capsule 20 mg PO DAILY albuterol sulfate 1 PUFF inhaler 1 puff INHALATION Q6H PRN (Reason: Sob &/Or Wheezing) prazosin 2 mg capsule 2 mg PO QHS furosemide [Lasix] 20 mg tablet 20 mg PO BID clonazepam 0.5 mg tablet 0.5 mg PO QHS PRN (Reason: anxiety) sertraline 100 mg tablet 150 mg PO DAILY clopidogrel [Plavix] 75 mg tablet 75 mg PO DAILY ipratropium-albuterol 0.5 mg-3 mg(2.5 mg base)/3 mL solution for nebulization 3 ml INHALATION Q4H PRN (Reason: shortness of breath or wheezing) Qty: 180 3RF metoprolol succinate 25 mg tablet extended release 24 hr 12.5 mg PO DAILY Qty: 45 3RF No Action (DME) nebulizer and compressor Device See Rx Instructions .Route Qty: 1 0RF Rx Instructions: As directed Referrals / Follow Up: [facility] [Provider Group] - Within 1 Month Sen Odom MD [Primary Care Provider] - Within 2 Weeks Disposition Disposition (needs filled in before D/C Order can be placed): Home, Self Care Charges/Coding Visit Charges Inpatient E&M: 51391 Disch Hosp >30min
[2024-10-18 14:00] VITALS: BP 118/75; PULSE 73; RESP 16; TEMP 36.7; O2SAT 94
--- NOTE | 2024-10-18 14:59 | CASEMGMT ---
Patient has order for discharge. RN CM in to discuss needs at discharge. Patient is independent in the room. Patient denies needs or help at discharge. Patient had no further questions or concerns.
== END 2024-10-18 15:28 | disposition home or self-care (01) | DRG 812 ==
LOC: ED 19:26 → PCU 20:23
PROVIDERS: Admitting Provider Family Medicine; Emergency Provider Emergency Medicine; PCP Family Medicine
DX: D50.9 Iron deficiency anemia, unspecified (principal); I24.89 Other forms of acute ischemic heart disease; I13.0 Hypertensive heart and chronic kidney disease with heart failure and stage 1 through stage 4 chronic kidney disease, or unspecified chronic kidney disease; J70.1 Chronic and other pulmonary manifestations due to radiation; I50.32 Chronic diastolic (congestive) heart failure; N18.30 Chronic kidney disease, stage 3 unspecified; F32.A Depression, unspecified; J44.9 Chronic obstructive pulmonary disease, unspecified; E78.00 Pure hypercholesterolemia, unspecified; F17.210 Nicotine dependence, cigarettes, uncomplicated; J47.9 Bronchiectasis, uncomplicated; J32.9 Chronic sinusitis, unspecified; G47.33 Obstructive sleep apnea (adult) (pediatric); I25.10 Atherosclerotic heart disease of native coronary artery without angina pectoris; I25.2 Old myocardial infarction; F41.9 Anxiety disorder, unspecified; Z11.52 Encounter for screening for COVID-19; Z79.82 Long term (current) use of aspirin; Z79.899 Other long term (current) drug therapy; Z85.118 Personal history of other malignant neoplasm of bronchus and lung; Z90.2 Acquired absence of lung [part of]; Z91.199 Patient's noncompliance with other medical treatment and regimen due to unspecified reason; Z95.1 Presence of aortocoronary bypass graft; Z95.5 Presence of coronary angioplasty implant and graft
CPT/HCPCS: 36415; 71046; 80048; 80053; 80061; 82728; 83540; 83550; 83735; 84145; 84484; 85025; 86850; 86900; 86901; 86920; 86922; 87449; 87633; 93005; 93306; 94640; 94668; 97802; 99285; 99406; J7030; J7050; P9016; Q9957; A4216; J2916

== ENCOUNTER → 2024-11-14 | Outpatient (CLI) | payer MEDICARE, SELFPAY ==
[2021-10-20 08:51] VITALS: BMI 26.6
[2024-11-14 12:50] LABS: Absolute Lymphocyte Count 1.59 X10^3/uL (0.83-4.51); Absolute Neutrophil Count 3.3 X10^3/uL (2.0-7.7); Basophil# 0.05 X10^3/uL; Basophil% 0.9 % (0-1); Eosinophil# 0.08 X10^3/uL; Eosinophils% 1.5 % (0-5); Hemoglobin 11.5 g/dL (12.0-15.0); Lymphocyte # 1.59 X10^3/ul (0.83-4.51); Lymphocyte % 28.9 % (19-41); Mean Corp Hgb Conc 29.5 g/dL (32-36); Mean Corpuscular Hgb 22.8 pg (27.0-32.0); Mean Corpuscular Volume 77.4 fL (81-99); Mean Platelet Vol. 9.9 fl (6.2-12.0); Monocyte# 0.49 X10^3/uL; Monocyte% 8.9 % (0-10); NRBC Flagged by Analyzer 0 % (0-5); Neutrophil # 3.26 X10^3/uL (2.7-7.7); Neutrophil % 59.3 % (47-70); POSITIVE MORPHOLOGY YES; Platelet Count 171 K/mm3 (150-450); RBC Distribution Width CV 27.3 % (11.6-14.6); RBC Distribution Width SD 73.7 fl (35.1-43.9); Red Blood Count 5.04 M/mm3 (4.2-5.4); White Blood Count 5.5 K/mm3 (4.4-11.0)
[2024-11-14 12:57] LABS: Differential Indicated SCAN CRITERIA MET
[2024-11-14 13:16] LABS: Ferritin 61 ng/mL (8-252); Iron 43 ug/dL (50-170); Iron Binding Capacity,Total 402 ug/dL (250-450)
[2024-11-14 14:28] LABS: Anisocytosis 1+
== END | disposition home or self-care (01) ==
LOC: LAB 12:05
PROVIDERS: PCP Family Medicine; Referring Provider Nurse Practitioner Acute Care; Visit Provider Nurse Practitioner Acute Care
DX: R10.31 Right lower quadrant pain (principal); D64.9 Anemia, unspecified
CPT/HCPCS: 36415; 82728; 83540; 83550; 85025

== ENCOUNTER → 2024-11-28 | Outpatient (CLI) | payer MEDICARE, SELFPAY ==
[2021-10-20 08:51] VITALS: BMI 26.6
--- NOTE | 2024-11-28 08:34 | CT_ITS ---
EXAM: CT CHEST WITHOUT INTRAVENOUS CONTRAST CLINICAL INDICATION: treated lung cancer -- monitoring, please compare to prior TECHNIQUE: Helically acquired images were obtained of the chest without intravenous contrast. This CT exam was performed using one or more of the following dose reduction techniques: automated exposure control, adjustment of the mA and/or kV according to patient size, and/or use of iterative reconstruction technique. COMPARISON: 05/18/2024 FINDINGS: LUNGS AND PLEURAL SPACES: Mild centrilobular emphysema. Scarring in the periphery of the right lung is again identified with similar appearance to prior examination to include areas of bronchiectasis and/or bronchograms as well as curvilinear hyperdensity which may be due to postoperative change or other treatment changes. Pleural-based nodules in the right middle lobe are again identified similar to the prior examination. No pneumothorax. HEART: Status post CABG. Coronary artery calcifications. No cardiomegaly or pericardial effusion. MEDIASTINUM: Mediastinal lymphadenopathy is similar to the prior CT examination. Esophagus is unremarkable. No hiatal hernia. THYROID: No significant abnormality. No thyroid lesions. BONES/JOINTS: Median sternotomy. Postoperative changes in the cervical spine are partially visualized. No suspicious lytic or blastic abnormality. VASCULATURE: Atherosclerosis of the aorta and its branch vessels. Thoracic aorta is non-dilated. GALLBLADDER AND BILE DUCTS: Status post cholecystectomy. CT/Chest without Contrast IMPRESSION: 1. Mediastinal lymphadenopathy is similar to the prior CT examination. 2. Scarring in the periphery of the right lung is again identified with similar appearance to prior examination to include areas of bronchiectasis and/or bronchograms as well as curvilinear hyperdensity which may be due to postoperative change or other treatment changes. 3. Pleural-based nodules in the right middle lobe are again identified similar to the prior examination. 4. Mild centrilobular emphysema. NOTE: Emphysema on CT is an independent risk factor for lung cancer. Consider low dose CT for lung cancer screening between the ages of 50 and 77. 5. Status post CABG. Coronary artery calcifications. No cardiomegaly or pericardial effusion. Electronically Signed: Georgi Cordova DO at 20:38 EST ,
== END | disposition home or self-care (01) ==
PROVIDERS: PCP Family Medicine; Referring Provider Student in an Organized Health Care Education/Training Program; Visit Provider Student in an Organized Health Care Education/Training Program
DX: C34.11 Malignant neoplasm of upper lobe, right bronchus or lung (principal)
CPT/HCPCS: 71250

== ENCOUNTER → 2024-12-04 | Outpatient (CLI) | payer MEDICARE, SELFPAY ==
[2021-10-20 08:51] VITALS: BMI 26.6
--- NOTE | 2024-12-04 13:52 | CT_ITS ---
PROCEDURE: ABDOMEN/PELVIS WITH CONTRAST REASON FOR EXAM: Right lower quadrant pain. Diarrhea TECHNIQUE: Abdomen and pelvis CT with intravenous contrast following the oral administration of contrast materia l. COMPARISON: 06/09/2023 FINDINGS: Lung bases: Trace atelectasis or scarring within the lingula. Remaining lung bases otherwise appears clear. Liver: Homogeneous enhancement of the liver. Slight micronodularity involving the surface of the [place], which could be seen with cirrhosis. Gallbladder: Surgically absent. Spleen: Homogeneous enhancement. Pancreas: No enhancing masses or peripancreatic inflammatory changes. Adrenals: 1.6 x 1.1 cm adrenal nodule on the left. No adrenal masses are seen on the right. Kidneys: Kidneys enhance symmetrically. 3 mm nonobstructing calculus within the superior pole of the right kidney. No obstructing calculi are seen. No hydronephrosis bilaterally. Bladder: Mild to moderate distention. No bladder calculi are seen. Reproductive Organs: Uterus appears surgically absent. Bowel: No bowel obstruction. Mild amounts of fecal retention. Appendix appears surgically absent. Left colon is predominantly decompressed. No pericolonic inflammatory changes. Lymph nodes: No suspicious lymph node enlargement. Vasculature: Mild vascular calcifications and plaque formation within the abdominal aorta and iliac a rteries. Peritoneum / Retroperitoneum: No free air. No drainable fluid collections. Bones: Unremarkable. CT/Abdomen/Pelvis WITH Contrast IMPRESSION: 1. 1.6 x 1.1 cm adrenal nodule on the left. Consider nonemergent MRI for furth er characterization. 2. 3 mm nonobstructing calculus within the superior pole of the right kidney. Negative for obstructive uropathy bilaterally. 3. No bowel obstruction. Mild amounts of fecal retention. 4. Micronodularity involving the surface of the liver, which could be seen with cirrhosis. 5. Additional findings, as detailed above. One or more dose reduction techniques were used (e.g., Automated exposure contr ol, adjustment of the mA and/or kV according to patient size, use of iterative reconstruction technique). [facility]
== END | disposition home or self-care (01) ==
LOC: CT 13:52
PROVIDERS: PCP Family Medicine; Referring Provider Nurse Practitioner Acute Care; Visit Provider Nurse Practitioner Acute Care
DX: R10.31 Right lower quadrant pain (principal); D64.9 Anemia, unspecified
CPT/HCPCS: 74177; Q9967

== ENCOUNTER → 2024-12-26 | Outpatient (CLI) | payer MEDICARE, SELFPAY ==
[2021-10-20 08:51] VITALS: BMI 26.6
[2024-12-26 17:45] LABS: Prothrombin Time (Protime)PT. 13.6 SECONDS (11.7-14.9)
[2024-12-26 17:47] LABS: Absolute Lymphocyte Count 1.52 X10^3/uL (0.83-4.51); Absolute Neutrophil Count 2.9 X10^3/uL (2.0-7.7); Basophil# 0.04 X10^3/uL; Basophil% 0.8 % (0-1); Eosinophil# 0.06 X10^3/uL; Eosinophils% 1.2 % (0-5); Hematocrit 42.6 % (37-47); Hemoglobin 13.4 g/dL (12.0-15.0); Lymphocyte # 1.52 X10^3/ul (0.83-4.51); Lymphocyte % 30.4 % (19-41); Mean Corp Hgb Conc 31.5 g/dL (32-36); Mean Corpuscular Hgb 26.2 pg (27.0-32.0); Mean Corpuscular Volume 83.4 fL (81-99); Monocyte# 0.47 X10^3/uL; Monocyte% 9.4 % (0-10); NRBC Flagged by Analyzer 0 % (0-5); POSITIVE MORPHOLOGY YES; Platelet Count 157 K/mm3 (150-450); RBC Distribution Width CV 23.2 % (11.6-14.6); RBC Distribution Width SD 70.3 fl (35.1-43.9); Red Blood Count 5.11 M/mm3 (4.2-5.4)
[2024-12-26 17:49] LABS: Differential Indicated SCAN CRITERIA MET
[2024-12-26 17:57] LABS: AST(SGOT) 17 U/L (15-37); Alanine Aminotransfer ALT/SGPT 23 U/L (13-56); Albumin, Serum 3.8 g/dL (3.2-5.0); Alkaline Phosphatase 79 U/L (45-117); Bilirubin, Direct 0.11 mg/dL (0.00-0.30); Globulin 4.2 g/dL (2.2-4.2)
[2024-12-26 18:10] LABS: Anisocytosis 1+; Differential Comment SCANNED
== END | disposition home or self-care (01) ==
PROVIDERS: PCP Family Medicine; Referring Provider Nurse Practitioner Acute Care; Visit Provider Nurse Practitioner Acute Care
DX: R19.7 Diarrhea, unspecified (principal); K74.60 Unspecified cirrhosis of liver; R63.4 Abnormal weight loss; R93.2 Abnormal findings on diagnostic imaging of liver and biliary tract; D64.9 Anemia, unspecified
CPT/HCPCS: 36415; 80076; 85025; 85610

== ENCOUNTER 2024-12-28 05:14 | Day surgery (SDC) | payer MEDICARE, SELFPAY ==
[2021-10-20 08:51] VITALS: BMI 26.6
--- NOTE | 2024-12-25 16:12 | PAT.ANE_ITS ---
Pre-Assessment Diagnosis/Proposed Procedure Planned Operative Procedure(s): EGD, CSCOPE Anesthesia History Anesthesia History - court messenger: Anesthesia History - court messenger Hx Hospitalization Yes: GI BLEED, 10/202412/25/24 12:39 Any Problems With Anesthesia No 12/25/24 12:39 Cholinesterase deficiency No 12/25/24 12:39 You/Your Family Experience No 12/25/24 12:39 fever (hyperthermia) with Relationship Recent Exposure to Contagious No 06/10/22 19:48 Disease Does patient have nerve No 12/25/24 12:39 stimulator Patient instructed to have device shut off --Does patient have Pacemaker or ICD? When Was Last Pacemaker Check QUESTION #4 FULL TEXT: You/Your Family Experience fever (hyperthermia) with Anesthesia Last Oral Intake Last Oral intake: Last Oral Intake NPO since Meds taken in AM with sips of water? Meds patient instructed to take am of surgery PONV PONV - court messenger: PONV - court messenger Female Yes 12/25/24 12:39 HX of Motion Sickness No 12/25/24 12:39 HX of N/V After Surgery No 12/25/24 12:39 Non-Smoker No 12/25/24 12:39 Duration of Surgery greater No 12/25/24 12:39 than 60 minutes Number of Risk Factors 1 12/25/24 12:39 PONV Score Low Risk 12/25/24 12:39 Height & Weight Height & Weight: Anesthesia: Height & Weight Height 5 ft 3 in 11/14/24 10:50 Respiratory Assessment Respiratory Assessment - court messenger: Respiratory Tract Infection Hx - court messenger Hx Respiratory Tract Infection No 12/25/24 12:39 STOP Sleep Apnea STOP Sleep Apnea - court messenger: STOP Sleep Apnea - court messenger Hx Hypertension Yes: CONTROLLED WITH MED 12/25/24 12:39 Hx Sleep Apnea Yes: 2L O2 AT NIGHT 12/25/24 12:39 CPAP No 12/25/24 12:39 BIPAP No 12/25/24 12:39 Do you snore loudly (louder than talking or can be heard Do you often feel tired/ fatigued/ sleepy during daytime? Has anyone observed you stop breathing during sleep? STOP Results Positive 12/25/24 12:39 QUESTION #5 FULL TEXT : Do you snore loudly (louder than talking or can be heard through closed doors)? 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 Specify any problems Hx of Preganancy in last 3 N/A 12/25/24 12:39 Months Nurse Filling Out Transfusion NBUCHER 12/25/24 12:39 & Questions: Date: 12/25/24 12/25/24 12:39 Time: 12:39 12/25/24 12:39 Patient unable to answer at this time (ie. confused, unrespo /Reproduction History /Reproductive History - court messenger: /Reproductive Hx- court messenger Hx Now No 12/25/24 12:39 Gestational Age (in weeks): EDC: Hx Hx Para Hx Section SAB No 12/25/24 12:39 [facility] Medical History (Updated 12/25/24 @ 12:49 by Nasra Argueta) Wears glasses Loose, teeth Cancer Depression Bladder disease History of steroid therapy Arthritis High cholesterol Restless legs History of GI bleed On home oxygen therapy Smoker Sleep apnea History of echocardiogram History of stress test Cardiology follow-up encounter GERD (gastroesophageal reflux disease) Lung cancer Anxiety Atherosclerotic heart disease of [place] coronary artery with unstable angina pectoris Congestive heart failure History of COPD Anemia Angina of effort Myocardial infarction, silent Adenocarcinoma of lung, stage 1 Lung cancer Melanoma Pure hypercholesterolemia Worsening angina Chest pain, unspecified HOWARD (obstructive sleep apnea) Osteoarthritis DDD (degenerative disc disease) Premature ventricular contraction Pericardial effusion Atherosclerotic heart disease of [place] coronary artery without angina pectoris Nonrheumatic mitral (valve) prolapse Tobacco abuse Essential hypertension Home Medications ?Medication ?Instructions ?Recorded ?Last Taken ?Type omeprazole 20 mg capsule,delayed 20 mg PO DAILY acid r eflux 02/04/16 06/13/22 History release albuterol sulfate 90 mcg/actuation 1 puff inhalation Q 6H PRN Sob &/Or 07/28/20 06/14/22 History aerosol inhaler Wheezing ipratropium 0.5 mg-albuterol 3 mg 3 ml inhalation Q4H PRN shortness 12/29/20 06/08/22 Rx (2.5 mg base)/3 mL nebulization of breath or wheezing #180 mL soln nebulizer and compressor #1 ea 06/11/22 Unknown Rx primidone 50 mg tablet 150 mg PO QHS seizures 30 da ys #90 01/10/24 Unknown History tabs prazosin 2 mg capsule 2 mg PO QHS blood pressure 0 01/12/24 Unknown History budesonide 1 mg/2 mL suspension 1 mg (2 mL) inhalation BID 02/03/24 Unknown Rx for nebulization BREATHING #60 mL nitroglycerin 0.4 mg sublingual 0.4 mg sublingual Q5M PRN Chest 02/08/24 Unknown Rx tablet Pain #25 tabs metoprolol succinate 25 mg 12.5 mg (1/2 x 25 mg) PO DA MARI 02/13/24 Unknown Rx tablet,extended release 24 hr blood pressure #45 TABLE TS furosemide 20 mg tablet (Lasix) 20 mg PO BID diuretic 10/16/24 Unknown History sertraline 100 mg tablet 150 mg PO DAILY mood 4 Unknown History Allergy/AdvReac Type Severity Reaction Status Date / Time Iodinated Contrast Media Allergy Hives Verified 12/25/24 12:37 (Iodinated Contrast Media - IV Dye) mesalamine (From Asacol) Allergy GASTRIC Verified 12/25/24 12:37 HEMORRHAGE tetracycline (Tetracycline) Allergy Hives Verified 12/25/24 12:37 pravastatin AdvReac Intermediate Upset Verified 12/25/24 12:37 Stomach atorvastatin (From Lipitor) AdvReac myalgia Verified 12/25/24 12:37 Family History Father Hypertension Colon cancer Alcoholism Mother Cancer LUNG CANCER/ SMOKER Father , MELANOMA No problems noted. Surgical History (Updated 12/25/24 @ 12:49 by Nasra Argueta) History of coronary artery stent placement History of cardiac catheterization History of cervical spinal surgery S/P partial lobectomy of lung interstim placement (~08/05/20) Presence of coronary angioplasty implant and graft (~03/12/18) History of cataract surgery History of abdominal surgery History of total hysterectomy History of cholecystectomy History of bowel resection Hx of appendectomy Presence of stent in coronary artery (~06/15/22) Aortocoronary bypass status (~05/12/04) Postsurgical percutaneous transluminal coronary angioplasty (PTCA) status (~03/12/18) Social History adopted: No housing: house number of children: 1 current occupational status: retired current occupational exposures/hazards: No Smoking Status: Current every day smoker tobacco type: cigarettes Tobacco: How many years used: 50 how long ago did patient quit smokin weeks ago alcohol intake: never substance use type: does not use caffeine: Yes Type: carbonated beverages Number of servings: 2 Audit: Pertinent Findings Pertinent Findings EKG Perinent findings: December 06, 2024. Sinus rhythm. Old anterior infarct. Stress test pertinent findings: April 16, 2019. Ejection fraction 74%. Normal pharmacologic myocardial perfusion stress test. Echo (EF%) pertinent findings: October 17, 2024. Ejection fraction 60%. PA systolic pressure is 35 mmHg. No aortic stenosis is noted. Heart catheterization pertinent findings: June 15, 2022. [place] multivessel coronary artery disease. Left main with stent is patent. GREEN to LAD patent. SVG to OM 3 is patent. SVG to RCA is patent. Diagonal 1 proximally is a 75% stenosis. Successful PCI with ADOLPH to the proximal D1. Consult pertinent findings: December 06, 2024. [facility] [employer] DIRECT[employer]umar[employer]. 1. Atherosclerotic heart disease of [place] coronary artery without angina- latest twelve-lead EKG shows sinus rhythm with no acute ST or T wave changes. This appears stable. Continue to monitor. No medication changes. 2. Essential hypertension-chronic. Controlled. 3. Primary lung adenocarcinoma-status post lobectomy. She subsequently had radiation. 4. Tobacco use?patient continues to smoke. 5. Preop cardiovascular exam-at this time there is no cardiac contraindication. Patient may proceed with endoscopy. Plavix is currently on hold. Pulmonary function results/spirometer pertinent findings: CT of the chest?November 28, 2024. 1. Mediastinal lymphadenopathy unchanged from prior CT. 2. Scarring of the periphery of the right lung unchanged from prior exam. 3. Pleural based nodules in the right middle lobe?no change. 4. Mild centrilobular emphysema. 5. Status post CABG Recommendation Anesthesia Recommendation Anesthesia recommendation: OPTIMIZED for anesthesia
[2024-12-28] VITALS (7 sets, daily range): BP systolic 88–132; BP diastolic 63–78; PULSE 59–72; RESP 16; TEMP 36.1–36.4; O2SAT 95–100; BMI 26.4
--- NOTE | 2024-12-28 06:17 | PCM.PRE.AN2 ---
ASA Classification* ASA Classification ASA Classification: 2 Assessment & Plan Anesthesia* Anesthesia Assessment Anesthesia Assessment: Discussed sedation and/or anesthesia options, risks, benefits, and alternatives with patient/parents/legal guardian/POA. Questions invited. The patient/parents/legal guardian/POA seems to understand and agrees to proceed with anesthesia plan. Reviewed the physical assessment, medical history, allergy history and patient home medications list prior to surgery/procedure/anesthetic and documented any changes. Performed airway and anesthesia risk assessments. Anesthesia Type Anesthesia Type: MAC Anesthesia Focused Assessment* Temperature: 97.5 F Pulse Rate: 72 Blood Pressure: 132/78 Respiratory Rate: 16 Pulse Ox: 98 Airway Assessment Mouth opens: >3 cm Mallampati Score: II Focused Labs Anesthesia Preop lab: CBC WBC 5.0 K/mm3 (4.4-11.0) 12/26/24 14:31 12/26/24 RBC 5.11 M/mm3 (4.2-5.4) 12/26/24 14:31 12/26/24 Hgb 13.4 g/dL (12.0-15.0) 12/26/24 14:31 12/26/24 Hct 42.6 % (37-47) 12/26/24 14:31 12/26/24 Plt Count 157 K/mm3 (150-450) 12/26/24 14:31 12/26/24 CHEMISTRY Potassium 4.4 mmol/L (3.5-5.1) 10/17/24 05:34 10/17/24 Sodium 134 mmol/L (136-145) L 10/17/24 05:34 10/17/24 Magnesium 2.1 mg/dL (1.6-2.6) 10/16/24 19:05 10/16/24 BUN 18 mg/dL (7-18) 10/17/24 05:34 10/17/24 Creatinine 1.02 mg/dL (0.55-1.02) 10/17/24 05:34 10/17/24 Glucose 129 mg/dL (74-106) H 10/17/24 05:34 10/17/24 TSH 2.37 uIU/mL (0.358-3.74) 01/24/23 15:22 01/24/23 COAG PT 13.6 SECONDS (11.7-14.9) 12/26/24 14:31 12/26/24 Pre-Assessment Diagnosis/Proposed Procedure Planned Operative Procedure(s): EGD, CSCOPE Anesthesia History 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 When Was Last Pacemaker Check QUESTION #4 FULL TEXT: You/Your Family Experience fever (hyperthermia) with Anesthesia Last Oral Intake Last Oral intake: Last Oral Intake NPO since 02:30 12/28/24 06:03 Meds taken in AM with sips of No 12/28/24 06:03 water? Meds patient instructed to take am of surgery PONV PONV - glycerin operator: PONV - glycerin operator Female Yes 12/25/24 12:39 HX of Motion Sickness No 12/25/24 12:39 HX of N/V After Surgery No 12/25/24 12:39 Non-Smoker No 12/25/24 12:39 Duration of Surgery greater No 12/25/24 12:39 than 60 minutes Number of Risk Factors 1 12/25/24 12:39 PONV Score Low Risk 12/25/24 12:39 Height & Weight Height & Weight: Anesthesia: Height & Weight Height 5 ft 3 in 12/28/24 06:03 Weight: 67.6 kg 12/28/24 06:03 Body Mass Index (BMI) 26.4 12/28/24 06:03 Respiratory Assessment Respiratory Assessment - glycerin operator: Respiratory Tract Infection Hx - glycerin operator Hx Respiratory Tract Infection No 12/25/24 12:39 STOP Sleep Apnea STOP Sleep Apnea - glycerin operator: STOP Sleep Apnea - glycerin operator Hx Hypertension Yes: CONTROLLED WITH MED 12/25/24 12:39 Hx Sleep Apnea Yes: 2L O2 AT NIGHT 12/25/24 12:39 CPAP No 12/25/24 12:39 BIPAP No 12/25/24 12:39 Do you snore loudly (louder than talking or can be heard Do you often feel tired/ fatigued/ sleepy during daytime? Has anyone observed you stop breathing during sleep? STOP Results Positive 12/25/24 12:39 QUESTION #5 FULL TEXT : Do you snore loudly (louder than talking or can be heard through closed doors)? 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 Specify any problems Hx of Preganancy in last 3 N/A 12/25/24 12:39 Months Nurse Filling Out Transfusion NBUCHER 12/25/24 12:39 & Questions: Date: 12/25/24 12/25/24 12:39 Time: 12:39 12/25/24 12:39 Patient unable to answer at this time (ie. confused, unrespo /Reproduction History /Reproductive History - glycerin operator: /Reproductive Hx- glycerin operator Hx Now No 12/25/24 12:39 Gestational Age (in weeks): EDC: Hx Hx Para Hx Section SAB No 12/25/24 12:39 PFSH Medical History Wears glasses Loose, teeth Cancer Depression Bladder disease History of steroid therapy Arthritis High cholesterol Restless legs History of GI bleed On home oxygen therapy Smoker Sleep apnea History of echocardiogram History of stress test Cardiology follow-up encounter GERD (gastroesophageal reflux disease) Lung cancer Anxiety Atherosclerotic heart disease of [place] coronary artery with unstable angina pectoris Congestive heart failure History of COPD Anemia Angina of effort Myocardial infarction, silent Adenocarcinoma of lung, stage 1 Lung cancer Melanoma Pure hypercholesterolemia Worsening angina Chest pain, unspecified HOWARD (obstructive sleep apnea) Osteoarthritis DDD (degenerative disc disease) Premature ventricular contraction Pericardial effusion Atherosclerotic heart disease of [place] coronary artery without angina pectoris Nonrheumatic mitral (valve) prolapse Tobacco abuse Essential hypertension Home Medications ?Medication ?Instructions ?Recorded ?Last Taken ?Type omeprazole 20 mg capsule,delayed 20 mg PO DAILY acid reflux 02/04/16 12/27/24 History release albuterol sulfate 90 mcg/actuation 1 puff inhalation Q6H PRN Sob &/Or 07/28/20 06/14/22 History aerosol inhaler Wheezing ipratropium 0.5 mg-albuterol 3 mg 3 ml inhalation Q4H PRN shortness 12/29/20 06/08/22 Rx (2.5 mg base)/3 mL nebulization of breath or wheezing #180 mL soln nebulizer and compressor #1 ea 06/11/22 Unknown Rx primidone 50 mg tablet 150 mg PO QHS seizures 30 days #90 01/10/24 12/27/24 History tabs prazosin 2 mg capsule 2 mg PO QHS blood pressure 01/12/24 12/27/24 History budesonide 1 mg/2 mL suspension 1 mg (2 mL) inhalation BID 02/03/24 Unknown Rx for nebulization BREATHING #60 mL nitroglycerin 0.4 mg sublingual 0.4 mg sublingual Q5M PRN Chest 02/08/24 Unknown Rx tablet Pain #25 tabs metoprolol succinate 25 mg 12.5 mg (1/2 x 25 mg) PO DAILY 02/13/24 12/27/24 Rx tablet,extended release 24 hr blood pressure #45 TABLETS furosemide 20 mg tablet (Lasix) 20 mg PO BID diuretic 10/16/24 12/27/24 History sertraline 100 mg tablet 150 mg PO DAILY mood 10/16/24 12/27/24 History Allergy/AdvReac Type Severity Reaction Status Date / Time Iodinated Contrast Media Allergy Hives Verified 12/25/24 12:37 (Iodinated Contrast Media - IV Dye) mesalamine (From Asacol) Allergy GASTRIC Verified 12/25/24 12:37 HEMORRHAGE tetracycline (Tetracycline) Allergy Hives Verified 12/25/24 12:37 pravastatin AdvReac Intermediate Upset Verified 12/25/24 12:37 Stomach atorvastatin (From Lipitor) AdvReac myalgia Verified 12/25/24 12:37 Family History Father Hypertension Colon cancer Alcoholism Mother Cancer LUNG CANCER/ SMOKER Father , MELANOMA No problems noted. Surgical History History of coronary artery stent placement History of cardiac catheterization History of cervical spinal surgery S/P partial lobectomy of lung interstim placement (~08/05/20) Presence of coronary angioplasty implant and graft (~03/12/18) History of cataract surgery History of abdominal surgery History of total hysterectomy History of cholecystectomy History of bowel resection Hx of appendectomy Presence of stent in coronary artery (~06/15/22) Aortocoronary bypass status (~05/12/04) Postsurgical percutaneous transluminal coronary angioplasty (PTCA) status (~03/12/18) Social History adopted: No housing: house number of children: 1 current occupational status: retired current occupational exposures/hazards: No Smoking Status: Current every day smoker tobacco type: cigarettes Tobacco: How many years used: 50 how long ago did patient quit smokin weeks ago alcohol intake: never substance use type: does not use caffeine: Yes Type: carbonated beverages Number of servings: 2 Review of Systems (Anesthesia) ROS Narrative System reviewed and no additional complaints, except as documented.
--- NOTE | 2024-12-28 06:22 | PCM.PRE.AN2 ---
ASA Classification* ASA Classification ASA Classification: 3 Assessment & Plan Anesthesia* Anesthesia Assessment Anesthesia Assessment: Discussed sedation and/or anesthesia options, risks, benefits, and alternatives with patient/parents/legal guardian/POA. Questions invited. The patient/parents/legal guardian/POA seems to understand and agrees to proceed with anesthesia plan. Reviewed the physical assessment, medical history, allergy history and patient home medications list prior to surgery/procedure/anesthetic and documented any changes. Performed airway and anesthesia risk assessments. Anesthesia Type Anesthesia Type: MAC History Source History Obtained from:: Patient, Chart and - (patient's daughter) Anesthesia Focused Assessment* Temperature: 97.5 F Pulse Rate: 72 Blood Pressure: 132/78 Respiratory Rate: 16 Pulse Ox: 98 Oxygen Delivery Method: Room Air Airway Assessment Mouth opens: >3 cm Mallampati Score: II Teeth Condition: Chipped/Broken, Loose and Missing Comment: couple missing teeth, few lower loose teeth especially incisors, few cracked/chipped/broken teeth. Overall poor dentition Focused Labs Anesthesia Preop lab: CBC WBC 5.0 K/mm3 (4.4-11.0) 12/26/24 14:31 12/26/24 RBC 5.11 M/mm3 (4.2-5.4) 12/26/24 14:31 12/26/24 Hgb 13.4 g/dL (12.0-15.0) 12/26/24 14:31 12/26/24 Hct 42.6 % (37-47) 12/26/24 14:31 12/26/24 Plt Count 157 K/mm3 (150-450) 12/26/24 14:31 12/26/24 CHEMISTRY Potassium 4.4 mmol/L (3.5-5.1) 10/17/24 05:34 10/17/24 Sodium 134 mmol/L (136-145) L 10/17/24 05:34 10/17/24 Magnesium 2.1 mg/dL (1.6-2.6) 10/16/24 19:05 10/16/24 BUN 18 mg/dL (7-18) 10/17/24 05:34 10/17/24 Creatinine 1.02 mg/dL (0.55-1.02) 10/17/24 05:34 10/17/24 Glucose 129 mg/dL (74-106) H 10/17/24 05:34 10/17/24 TSH 2.37 uIU/mL (0.358-3.74) 01/24/23 15:22 01/24/23 COAG PT 13.6 SECONDS (11.7-14.9) 12/26/24 14:31 12/26/24 Pre-Assessment Diagnosis/Proposed Procedure Planned Operative Procedure(s): EGD, CSCOPE Anesthesia History Anesthesia History - manager 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 When Was Last Pacemaker Check QUESTION #4 FULL TEXT: You/Your Family Experience fever (hyperthermia) with Anesthesia Any additional information?: No Last Oral Intake Last Oral intake: Last Oral Intake NPO since 02:30 12/28/24 06:03 Meds taken in AM with sips of No 12/28/24 06:03 water? Meds patient instructed to take am of surgery Any additional information?: Yes Meds taken in AM with sips of water?: Yes PONV PONV - manager billing: PONV - manager billing Female Yes 12/25/24 12:39 HX of Motion Sickness No 12/25/24 12:39 HX of N/V After Surgery No 12/25/24 12:39 Non-Smoker No 12/25/24 12:39 Duration of Surgery greater No 12/25/24 12:39 than 60 minutes Number of Risk Factors 1 12/25/24 12:39 PONV Score Low Risk 12/25/24 12:39 Any additional information?: No Height & Weight Height & Weight: Anesthesia: Height & Weight Height 5 ft 3 in 12/28/24 06:03 Weight: 67.6 kg 12/28/24 06:03 Body Mass Index (BMI) 26.4 12/28/24 06:03 Respiratory Assessment Respiratory Assessment - manager billing: Respiratory Tract Infection Hx - manager billing Hx Respiratory Tract Infection No 12/25/24 12:39 Any additional information?: No STOP Sleep Apnea STOP Sleep Apnea - manager billing: STOP Sleep Apnea - manager billing Hx Hypertension Yes: CONTROLLED WITH MED 12/25/24 12:39 Hx Sleep Apnea Yes: 2L O2 AT NIGHT 12/25/24 12:39 CPAP No 12/25/24 12:39 BIPAP No 12/25/24 12:39 Do you snore loudly (louder than talking or can be heard Do you often feel tired/ fatigued/ sleepy during daytime? Has anyone observed you stop breathing during sleep? STOP Results Positive 12/25/24 12:39 QUESTION #5 FULL TEXT : Do you snore loudly (louder than talking or can be heard through closed doors)? 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 Specify any problems Hx of Preganancy in last 3 N/A 12/25/24 12:39 Months Nurse Filling Out Transfusion NBUCHER 12/25/24 12:39 & Questions: Date: 12/25/24 12/25/24 12:39 Time: 12:39 12/25/24 12:39 Patient unable to answer at this time (ie. confused, unrespo /Reproduction History /Reproductive History - manager billing: /Reproductive Hx- manager billing Hx Now No 12/25/24 12:39 Gestational Age (in weeks): EDC: Hx Hx Para Hx Section SAB No 12/25/24 12:39 [facility] Medical History Wears glasses Loose, teeth Cancer Depression Bladder disease History of steroid therapy Arthritis High cholesterol Restless legs History of GI bleed On home oxygen therapy Smoker Sleep apnea History of echocardiogram History of stress test Cardiology follow-up encounter GERD (gastroesophageal reflux disease) Lung cancer Anxiety Atherosclerotic heart disease of [place] coronary artery with unstable angina pectoris Congestive heart failure History of COPD Anemia Angina of effort Myocardial infarction, silent Adenocarcinoma of lung, stage 1 Lung cancer Melanoma Pure hypercholesterolemia Worsening angina Chest pain, unspecified HOWARD (obstructive sleep apnea) Osteoarthritis DDD (degenerative disc disease) Premature ventricular contraction Pericardial effusion Atherosclerotic heart disease of [place] coronary artery without angina pectoris Nonrheumatic mitral (valve) prolapse Tobacco abuse Essential hypertension Home Medications ?Medication ?Instructions ?Recorded ?Last Taken ?Type omeprazole 20 mg capsule,delayed 20 mg PO DAILY acid reflux 02/04/16 12/27/24 History release albuterol sulfate 90 mcg/actuation 1 puff inhalation Q6H PRN Sob &/Or 07/28/20 06/14/22 History aerosol inhaler Wheezing ipratropium 0.5 mg-albuterol 3 mg 3 ml inhalation Q4H PRN shortness 12/29/20 06/08/22 Rx (2.5 mg base)/3 mL nebulization of breath or wheezing #180 mL soln nebulizer and compressor #1 ea 06/11/22 Unknown Rx primidone 50 mg tablet 150 mg PO QHS seizures 30 days #90 01/10/24 12/27/24 History tabs prazosin 2 mg capsule 2 mg PO QHS blood pressure 01/12/24 12/27/24 History budesonide 1 mg/2 mL suspension 1 mg (2 mL) inhalation BID 02/03/24 Unknown Rx for nebulization BREATHING #60 mL nitroglycerin 0.4 mg sublingual 0.4 mg sublingual Q5M PRN Chest 02/08/24 Unknown Rx tablet Pain #25 tabs metoprolol succinate 25 mg 12.5 mg (1/2 x 25 mg) PO DAILY 02/13/24 12/27/24 Rx tablet,extended release 24 hr blood pressure #45 TABLETS furosemide 20 mg tablet (Lasix) 20 mg PO BID diuretic 10/16/24 12/27/24 History sertraline 100 mg tablet 150 mg PO DAILY mood 10/16/24 12/27/24 History Allergy/AdvReac Type Severity Reaction Status Date / Time Iodinated Contrast Media Allergy Hives Verified 12/25/24 12:37 (Iodinated Contrast Media - IV Dye) mesalamine (From Asacol) Allergy GASTRIC Verified 12/25/24 12:37 HEMORRHAGE tetracycline (Tetracycline) Allergy Hives Verified 12/25/24 12:37 pravastatin AdvReac Intermediate Upset Verified 12/25/24 12:37 Stomach atorvastatin (From Lipitor) AdvReac myalgia Verified 12/25/24 12:37 Family History Father Hypertension Colon cancer Alcoholism Mother Cancer LUNG CANCER/ SMOKER Father , MELANOMA No problems noted. Surgical History History of coronary artery stent placement History of cardiac catheterization History of cervical spinal surgery S/P partial lobectomy of lung interstim placement (~08/05/20) Presence of coronary angioplasty implant and graft (~03/12/18) History of cataract surgery History of abdominal surgery History of total hysterectomy History of cholecystectomy History of bowel resection Hx of appendectomy Presence of stent in coronary artery (~06/15/22) Aortocoronary bypass status (~05/12/04) Postsurgical percutaneous transluminal coronary angioplasty (PTCA) status (~03/12/18) Social History adopted: No housing: house number of children: 1 current occupational status: retired current occupational exposures/hazards: No Smoking Status: Current every day smoker tobacco type: cigarettes Tobacco: How many years used: 50 how long ago did patient quit smokin weeks ago alcohol intake: never substance use type: does not use caffeine: Yes Type: carbonated beverages Number of servings: 2 Review of Systems (Anesthesia) ROS Narrative System reviewed and no additional complaints, except as documented.
--- NOTE | 2024-12-28 06:30 | COLBX_PTH ---
PATIENT: TEODORO ALMEIDA LOC: EN U#:[id number] AGE/SX: 69/F ROOM: RE12/28/[address]: Dr. Tanner Beasley DO : 1955 BED: DIS: 12/28/2024 SPEC #: [id number] RECD: 12/28/24 10:09 STATUS: TEETEE RETerry #: [id number] RADHA: 12/28/24 06:[address]: Tanner Beasley DEPT: SURGICAL PATHOLOGY RECD BY: Cathi Rubio ENTERED: 12/28/24 10:43 SP TYPE: COLON BX OTHR DR: Dr. Sen Odom MD Tissues: A - Gastric mucous membrane B - SPLENIC FLEXURE Procedures: Surgery Specimen Level IV HEADER OPERATION: Colonoscopy, polypectomy, EGD biopsy PRE-OP DIAGNOSIS: Anemia, right lower quadrant abdominal pain, diarrhea, weight loss TISSUE SUBMITTED: A- Gastric body biopsy, B- Splenic flexure polyp MICROSCOPIC DIAGNOSIS A. Gastric body, biopsy: Gastric mucosa with focal superficial mucosal hemorrhage and focal mild chronic inflammation. See comment. B. Splenic flexure polyp: Tubular adenoma. /mr 12/31/2024 COMMENT A. The results of immunohistochemistry for Helicobacter pylori will be reported separately ([id number]). MICROSCOPIC DESCRIPTION Slides are reviewed. GROSS DESCRIPTION A. Received in fixative is one container labeled with the patient's name and designated Gastric body biopsy. The specimen consists of two irregular fragments of light vu soft tissue that in aggregate measure 0.8 x 0.2 x 0.2 cm. The specimen is totally submitted in one cassette. B. Received in fixative is one container labeled with the patient's name and designated Splenic flexure polyp. The specimen consists of two irregular fragments of light vu soft tissue that in aggregate measure 0.5 x 0.2 x 0.2 cm. The specimen is totally submitted in one cassette. CW.mr 12/28/2024 TC:3 CPT:09827r0
--- NOTE | 2024-12-28 06:30 | IMM_PTH ---
PATIENT: TEODORO ALMEIDA LOC: EN U#:[id number] AGE/SX: 69/F ROOM: RE12/28/[address]: Dr. Tanner Beasley DO : 1955 BED: DIS: 12/28/2024 SPEC #: [id number] RECD: 12/28/24 10:44 STATUS: TEETEE RETerry #: [id number] RADHA: 12/28/24 06:[address]: Tanner Beasley DEPT: IMMUNOHISTOCHEMISTRY RECD BY: Deny Sharma ENTERED: 12/28/24 10:44 SP TYPE: IMMUNO OTHR DR: Dr. Sen Odom MD Tissues: A - Gastric mucous membrane Procedures: H Pylori (initial) [facility]YSIC[facility] [address] [address] SPECIMEN INFORMATION: Tissue Source: A- Gastric body biopsy Clinical Info: Anemia, right lower quadrant abdominal pain, diarrhea, weight loss Specimen Number: [id number] CPT code: 73635 METHODOLOGY: Deparaffinized sections of prefer/formalin-fixed tissue or PAP/DQ stained slides are incubated with monoclonal/polyclonal antibodies/oligonucleotide probes. Localization is made via biotin free immunoperoxidase method. Appropriate controls are performed and reacted as expected. Results on target cell population are indicated in the following table: RESULTS: ANTIBODY / CLONE RESULT Block AH Pylori (polyclonal) negative These tests were developed and their performance characteristics determined by [facility]. They may not have been cleared or approved by the [place]. Food and Drug Administration. The FDA has determined that such clearance or approval is not necessary. The above immunohistochemical/dualISH markers are ordered and reviewed by the Pathologist. INTERPRETATION: A. Gastric body, biopsy: Negative for Helicobacter pylori organisms. 12/31/2024
--- NOTE | 2024-12-28 06:53 | PCM.HP.STD ---
HPI - General General Date of Admission: 12/28/24 Date of Service: 12/28/24 Chief Complaint: Iron deficiency anemia HPI Narrative TEODORO ALMEIDA, is a 69 F who presents today for the evaluation of iron deficiency anemia. Microcytic anemia iron-deficiency Received iron infusions x2. Transfused 1 unit. Check hemoccult. Start ferrous sulfate QOD. Will eventually need endoscopy, but if remains stable, can be done as outpt. LABS 10/18/2024 HGB 8.6 10/17/2024 HGB 6.3 10/16/2024 HGB 7 - Seen in office today with her daughter - denies any BRBPR - denies any melena - generalized abdominal pain - more in the RLQ pain - unknown trigger for pain - diarrhea all the time - watery stools - up 3-7x a day - reports she does have formed stools on occasion - fecal incontinence - but does experience urgency - diarrhea just since the admission - PLAVIX discontinued this admission - h/o TN, CAD ----- was taking ALEVE 2 a day prior to admission prior to back pain - she is on Omeprazole - started Fe QOD upon discharge - reports she went into hospital with fatigue and SOB - mild improvement since admission - weight loss of 15lbs in the past couple months - reports she does have an appetite - not eating as much as she would - intermittent nausea - denies any emesis - intermittent RUQ grabbing and twisting pain - can radiate through to back - this is not the pain she had prior to CCX - can be brought on by turning a certain way - h/o CCX secondary to stones EGD 06/11/2022 - Normal esophagus. - Medium-sized hiatal hernia. - Normal second portion of the duodenum. - No specimens collected. COLON 06/11/2022 - TA - Diverticulosis in the recto-sigmoid colon and in the sigmoid colon. - Two 1 to 2 mm polyps at the splenic flexure and at the hepatic flexure, removed with a hot snare. Resected and retrieved. - Two bleeding colonic angiodysplastic lesions. Treated with a monopolar probe. --Father with colon CA in his 60's - 25 years ago she had a bowel resection (12) secondary to adhesions - total hysterectomy - appendectomy - CCX in the 's - denies any falls in the past year [facility] Medical History Wears glasses Loose, teeth Cancer Depression Bladder disease History of steroid therapy Arthritis High cholesterol Restless legs History of GI bleed On home oxygen therapy Smoker Sleep apnea History of echocardiogram History of stress test Cardiology follow-up encounter GERD (gastroesophageal reflux disease) Lung cancer Anxiety Atherosclerotic heart disease of [place] coronary artery with unstable angina pectoris Congestive heart failure History of COPD Anemia Angina of effort Myocardial infarction, silent Adenocarcinoma of lung, stage 1 Lung cancer Melanoma Pure hypercholesterolemia Worsening angina Chest pain, unspecified HOWARD (obstructive sleep apnea) Osteoarthritis DDD (degenerative disc disease) Premature ventricular contraction Pericardial effusion Atherosclerotic heart disease of [place] coronary artery without angina pectoris Nonrheumatic mitral (valve) prolapse Tobacco abuse Essential hypertension Home Medications ?Medication ?Instructions ?Recorded ?Last Taken ?Type omeprazole 20 mg capsule,delayed 20 mg PO DAILY acid reflux 02/04/16 12/27/24 History release albuterol sulfate 90 mcg/actuation 1 puff inhalation Q6H PRN Sob &/Or 07/28/20 06/14/22 History aerosol inhaler Wheezing ipratropium 0.5 mg-albuterol 3 mg 3 ml inhalation Q4H PRN shortness 12/29/20 06/08/22 Rx (2.5 mg base)/3 mL nebulization of breath or wheezing #180 mL soln nebulizer and compressor #1 ea 06/11/22 Unknown Rx primidone 50 mg tablet 150 mg PO QHS seizures 30 days #90 01/10/24 12/27/24 History tabs prazosin 2 mg capsule 2 mg PO QHS blood pressure 01/12/24 12/27/24 History budesonide 1 mg/2 mL suspension 1 mg (2 mL) inhalation BID 02/03/24 Unknown Rx for nebulization BREATHING #60 mL nitroglycerin 0.4 mg sublingual 0.4 mg sublingual Q5M PRN Chest 02/08/24 Unknown Rx tablet Pain #25 tabs metoprolol succinate 25 mg 12.5 mg (1/2 x 25 mg) PO DAILY 02/13/24 12/27/24 Rx tablet,extended release 24 hr blood pressure #45 TABLETS furosemide 20 mg tablet (Lasix) 20 mg PO BID diuretic 10/16/24 12/27/24 History sertraline 100 mg tablet 150 mg PO DAILY mood 10/16/24 12/27/24 History Allergy/AdvReac Type Severity Reaction Status Date / Time Iodinated Contrast Media Allergy Hives Verified 12/25/24 12:37 (Iodinated Contrast Media - IV Dye) mesalamine (From Asacol) Allergy GASTRIC Verified 12/25/24 12:37 HEMORRHAGE tetracycline (Tetracycline) Allergy Hives Verified 12/25/24 12:37 pravastatin AdvReac Intermediate Upset Verified 12/25/24 12:37 Stomach atorvastatin (From Lipitor) AdvReac myalgia Verified 12/25/24 12:37 Family History Father Hypertension Colon cancer Alcoholism Mother Cancer LUNG CANCER/ SMOKER Father , MELANOMA No problems noted. Surgical History History of coronary artery stent placement History of cardiac catheterization History of cervical spinal surgery S/P partial lobectomy of lung interstim placement (~08/05/20) Presence of coronary angioplasty implant and graft (~03/12/18) History of cataract surgery History of abdominal surgery History of total hysterectomy History of cholecystectomy History of bowel resection Hx of appendectomy Presence of stent in coronary artery (~06/15/22) Aortocoronary bypass status (~05/12/04) Postsurgical percutaneous transluminal coronary angioplasty (PTCA) status (~03/12/18) Social History adopted: No housing: house number of children: 1 current occupational status: retired current occupational exposures/hazards: No Smoking Status: Current every day smoker tobacco type: cigarettes Tobacco: How many years used: 50 how long ago did patient quit smokin weeks ago alcohol intake: never substance use type: does not use caffeine: Yes Type: carbonated beverages Number of servings: 2 ROS Constitutional Constitutional: Denies fatigue, fever(s), poor appetite, weight gain or weight loss Gastrointestinal Gastrointestinal: Denies belching, bloating, change in bowel habits, change in stool character, chewing difficulty, coffee ground emesis, constipation, cramping, diarrhea, dyspepsia, dysphagia, early satiety, excessive flatus, fecal incontinence, heartburn, hematemesis, hematochezia, hemorrhoids, loose stools, melena, nausea, odynophagia, rectal bleeding, tenesmus, vomiting or weight changes Vital Signs Vital Signs Vital Signs: 12/28/24 06:01 12/28/24 06:03 12/28/24 06:27 Temperature 97.5 F L 97.5 F L Temperature Source Temporal Pulse Rate 72 72 Respiratory Rate 16 16 Respiratory Pattern Normal Blood Pressure 132/78 H 132/78 H Blood Pressure Mean 96 Blood Pressure Source Monitor Blood Pressure Position Semi-Fowlers Blood Pressure Location Left Arm Pulse Ox 98 98 Oxygen Delivery Method Room Air Room Air Weight Weight: 149 lb 0.52 oz Body Mass Index (BMI) 26.4 Physical Exam Const alert, oriented x3, no apparent distress and healthy appearing General Appearance: cooperative GI normal to inspection, nondistended, normoactive bowel sounds, soft to palpation, non-tender and non-distended Percussion: normal to percussion Rectal Exam: deferred Assessment & Plan Assessment/Plan (1) Anemia: QUALIFIERS: Anemia type: iron deficiency Iron deficiency anemia type: unspecified iron deficiency Qualified Code(s): D50.9 - Iron deficiency anemia, unspecified PLAN: Assessment and Plan Assessment and Plan (1) Anemia: Status: Acute Qualifiers: Anemia type: iron deficiency Iron deficiency anemia type: unspecified iron deficiency Qualified Code(s): D50.9 - Iron deficiency anemia, unspecified (2) RLQ abdominal pain: Status: Acute (3) Diarrhea: Status: Acute (4) Weight loss: Status: Acute Orders: Orders CBC W/Diff, Automated Today D64.9 - Anemia, unspecified, R10.31 - Right lower quadrant pain Ferritin Today D64.9 - Anemia, unspecified, R10.31 - Right lower quadrant pain Iron Binding Capacity,Total Today D64.9 - Anemia, unspecified, R10.31 - Right lower quadrant pain Iron Today D64.9 - Anemia, unspecified, R10.31 - Right lower quadrant pain Abdomen/Pelvis WITH Contrast Today D64.9 - Anemia, unspecified, R10.31 - Right lower quadrant pain Calprotectin, Stool Today R19.7 - Diarrhea, unspecified ENTERIC PATHOGEN PANEL STOOL Today K58.9 - Irritable bowel syndrome, unspecified, R19.7 - Diarrhea, unspecified Ova and Parasites [id number] Today K58.9 - Irritable bowel syndrome, unspecified, R19.7 - Diarrhea, unspecified Giardia Lamblia, Stool EIA Today R19.7 - Diarrhea, unspecified CDIFF (PCR) Today R19.7 - Diarrhea, unspecified Medications: New ascorbic acid (vitamin C) take QOD with Fe 500 mg PO .QOD 45 caps 0RF prednisone 1st dose (40mg) 13h prior to exam, 2nd dose (40mg) 7h prior to exam, 3rd dose (40mg) 1h prior to exam 40 mg (2 x 20 mg) PO QDAY [address] contrast prophylaxis famotidine (Pepcid) 20 mg PO .1h prior to CT [address] contrast prophylaxis diphenhydramine HCl (Benadryl Allergy) 50 mg PO .1h prior to CT PRN [address] contrast prophylaxis Plan 69y/o female presents for consultation post admission for fatigue and SOB. She was admitted 10/16/2024 with HGB of 7, this dropped to 6.3 and she received 1u PRBC and two Fe transfusions. She started ferrous sulfate QOD upon discharge and plavix was discontinued. She denies any BRBPR or melena. Prior to admission she was taking Aleve 2 tabs daily. She complaisn of ongoing fatigue, SOB, intermittent nausea, generalized abdominal pain with an increase in RLQ pain. She also reports frequent diarrhea with a 15lb weight loss in the past couple of months. Colonoscopy and EGD were performed oin 2021 for microcytic anemia and she was found to have two rectal AVMs at that time. Her family history is significant for father with colon cancer in his 60's. I have ordered stool testing, labs, CT and scheduled her for a colonoscopy and EGD. She will remain off plavix and I have discouraged use of any non-steroidal medications in the future. She will follow-up in the office post completion of testing. - obtain biopsies to r/o celiac sprue and microscopic colitis - If capsule endoscopy is required for further w/u of anemia she would require a patency capsule Patient Instructions: Contrast Prophylaxis: Prednisone 40mg orally every 6 hours for three doses. (1st dose 13h prior to exam, 2nd dose 7h prior to exam, 3rd dose 1h prior to exam). YOUR last dose of Prednisone (1h prior to exam) must be taken with Benadryl and Pepcid as outlined below: - Prednisone 40mg orally 1 hour prior to the exam. - Benadryl 50mg orally 1 hour prior to exam. - Pepcid 20mg orally 1 hour prior to exam. The patient must arrive to the radiology department 1 and a half hours prior to the exam to be sure that the last dose of the Prednisone and the Benadryl and Pepcid are taken on time. The patient MUST have a speedboat driver to drive them home, as the Benadryl 50mg will make patient drowsy. - AVOID use of any non-steroidal medications such as Aleve - Continue Omeprazole daily - Start Vitamin C QOD with Fe supplement to improve absorption
--- NOTE | 2024-12-28 07:30 | PCM.POST.ANE ---
Anesthesia: Postop Eval I Current Vital Signs Temperature: 97 F Pulse Rate: 65 Blood Pressure: 96/65 Respiratory Rate: 16 Pulse Ox: 100 Oxygen Delivery Method: Room Air Assessment Airway patent: Yes Spontaneous unlabored respirations: Yes Mental status: Awake and Calm nausea: No Vomiting: No Anesthesia Complication: No Fluid Hydration Crystalloid volume administer (ml): 20 Total IV fluid infused: 20 Progress Note Anesthesia document: Postop Eval 1 completed: Yes
--- NOTE | 2024-12-28 07:33 | OP.EGD_ITS ---
Patient Name: Haleigh Banda Procedure Date: 12/28/2024 6:35 AM Date of : 1955 Age: 69 Procedure: Upper GI endoscopy Indications: Iron deficiency anemia Providers: Tanner Beasley DO Referring MD: Phani Odom Medicines: Monitored Anesthesia Care Patient Profile: This is a 69 year old female. Refer to note in patient chart for documentation of history and physical. Patient has symptoms. Complications: No immediate complications. Procedure: Pre-Anesthesia Assessment: - Prior to the procedure, a History and Physical was performed, and patient medications and allergies were reviewed. The patient is competent. The risks and benefits of the procedure and the sedation options and risks were discussed with the patient. All questions were answered and informed consent was obtained. Patient identification and proposed procedure were verified by the physician in the pre-procedure area. Mental Status Examination: alert and oriented. Airway Examination: normal oropharyngeal airway and neck mobility. Respiratory Examination: clear to auscultation. CV Examination: normal. Prophylactic Antibiotics: The patient does not require prophylactic antibiotics. Prior Anticoagulants: The patient has taken no anticoagulant or antiplatelet agents except for NSAID medication. ASA Grade Assessment: II - A patient with mild systemic disease. After reviewing the risks and benefits, the patient was deemed in satisfactory condition to undergo the procedure. The anesthesia plan was to use monitored anesthesia care (MAC). Immediately prior to administration of medications, the patient was re-assessed for adequacy to receive sedatives. The heart rate, respiratory rate, oxygen saturations, blood pressure, adequacy of pulmonary ventilation, and response to care were monitored throughout the procedure. The physical status of the patient was re-assessed after the procedure. After obtaining informed consent, the endoscope was passed under direct vision. Throughout the procedure, the patient's blood pressure, pulse, and oxygen saturations were monitored continuously. The Colonoscope was introduced through the mouth, and advanced to the second part of duodenum. The upper GI endoscopy was accomplished without difficulty. The patient tolerated the procedure well. Scope In: 7:03:28 AM Scope Out: 7:06:13 AM Total Procedure Duration Time 0 hours 2 minutes 45 seconds Findings: The examined esophagus was normal. A small hiatal hernia was present. Localized severe inflammation with hemorrhage characterized by congestion (edema), erosions and erythema was found in the gastric body. Biopsies were taken with a cold forceps for histology. Verification of patient identification for the specimen was done. Estimated blood loss was minimal. Biopsies were taken with a cold forceps for Helicobacter pylori testing. Verification of patient identification for the specimen was done. Estimated blood loss was minimal. No gross lesions were noted in the second portion of the duodenum. Impression: - Normal esophagus. - Small hiatal hernia. - Acute gastritis with hemorrhage. Biopsied. - No gross lesions in the second portion of the duodenum. Recommendation: - Discharge patient to home. - Resume previous diet. - Continue present medications. - Await pathology results. Procedure Code(s): --- Professional --- 38195, Esophagogastroduodenoscopy, flexible, transoral; with biopsy, single or multiple CPT copyright 2021 [employer]. All rights reserved. The codes documented in this report are preliminary and upon order selector review may be revised to meet current compliance requirements. Tanner Beasley DO 12/28/2024 7:32:30 AM This report has been signed electronically. Number of Addenda: 0 Note Initiated On: 12/28/2024 6:35 AM
--- NOTE | 2024-12-28 07:33 | OP.CCLET_ITS ---
12/28/2024 Phani Odom [address] [place] [address] Re : Upper GI endoscopy procedure for Haleigh Banda Dear Dr. Odom This procedure was performed on Saturday, December 28, 2024. My impressions and recommendations are as follows: Impressions : - Normal esophagus. - Small hiatal hernia. - Acute gastritis with hemorrhage. Biopsied. - No gross lesions in the second portion of the duodenum. Recommendations : - Discharge patient to home. - Resume previous diet. - Continue present medications. - Await pathology results. My findings are described in the full procedure note, which is enclosed. If I can be of further assistance, please feel free to contact me at . Sincerely, Tanner Beasley, 12/28/2024 7:32:30 AM This report has been signed electronically.
--- NOTE | 2024-12-28 07:35 | OP.CCLET_ITS ---
12/28/2024 Phani Odom [address] [place] [address] Re : Colonoscopy procedure for Haleigh Willieangeljodie Dear Dr. Odom This procedure was performed on Saturday, December 28, 2024. My impressions and recommendations are as follows: Impressions : - Diverticulosis in the recto-sigmoid colon and in the sigmoid colon. - One 8 mm polyp at the splenic flexure, removed with a hot snare. Resected and retrieved. - The examined portion of the ileum was normal. Recommendations : - Discharge patient to home. - Resume previous diet. - Continue present medications. - Await pathology results. - Repeat colonoscopy in 3 years for surveillance. My findings are described in the full procedure note, which is enclosed. If I can be of further assistance, please feel free to contact me at . Sincerely, Tanner Beasley, 12/28/2024 7:34:59 AM This report has been signed electronically.
--- NOTE | 2024-12-28 07:35 | OP.COLON_ITS ---
Patient Name: Haleigh Banda Procedure Date: 12/28/2024 7:06 AM Date of : 1955 Age: 69 Procedure: Colonoscopy Indications: Iron deficiency anemia Providers: Tanner Beasley DO Referring MD: Phani Odom Medicines: Monitored Anesthesia Care Patient Profile: This is a 69 year old female. Refer to note in patient chart for documentation of history and physical. Patient has symptoms. Last Colonoscopy: more than 3 years ago. Complications: No immediate complications. Procedure: Pre-Anesthesia Assessment: - Prior to the procedure, a History and Physical was performed, and patient medications and allergies were reviewed. The patient is competent. The risks and benefits of the procedure and the sedation options and risks were discussed with the patient. All questions were answered and informed consent was obtained. Patient identification and proposed procedure were verified by the physician in the pre-procedure area. Mental Status Examination: alert and oriented. Airway Examination: normal oropharyngeal airway and neck mobility. Respiratory Examination: clear to auscultation. CV Examination: normal. Prophylactic Antibiotics: The patient does not require prophylactic antibiotics. Prior Anticoagulants: The patient has taken no anticoagulant or antiplatelet agents except for NSAID medication. ASA Grade Assessment: II - A patient with mild systemic disease. After reviewing the risks and benefits, the patient was deemed in satisfactory condition to undergo the procedure. The anesthesia plan was to use monitored anesthesia care (MAC). Immediately prior to administration of medications, the patient was re-assessed for adequacy to receive sedatives. The heart rate, respiratory rate, oxygen saturations, blood pressure, adequacy of pulmonary ventilation, and response to care were monitored throughout the procedure. The physical status of the patient was re-assessed after the procedure. After I obtained informed consent, the scope was passed under direct vision. Throughout the procedure, the patient's blood pressure, pulse, and oxygen saturations were monitored continuously. The Colonoscope was introduced through the anus and advanced to the terminal ileum. The colonoscopy was performed without difficulty. The patient tolerated the procedure well. The quality of the bowel preparation was adequate. The terminal ileum, ileocecal valve, appendiceal orifice, and rectum were photographed. Scope In: 7:08:02 AM Scope Withdrawal Time 0 hours 11 minutes 3 seconds Scope Out: 7:22:49 AM Total Procedure Duration Time 0 hours 14 minutes 47 seconds Findings: The perianal and digital rectal examinations were normal. A few small-mouthed diverticula were found in the recto-sigmoid colon and sigmoid colon. An 8 mm polyp was found in the splenic flexure. The polyp was sessile. The polyp was removed with a hot snare. Resection and retrieval were complete. Verification of patient identification for the specimen was done. Estimated blood loss was minimal. The terminal ileum appeared normal. Impression: - Diverticulosis in the recto-sigmoid colon and in the sigmoid colon. - One 8 mm polyp at the splenic flexure, removed with a hot snare. Resected and retrieved. - The examined portion of the ileum was normal. Recommendation: - Discharge patient to home. - Resume previous diet. - Continue present medications. - Await pathology results. - Repeat colonoscopy in 3 years for surveillance. Procedure Code(s): --- Professional --- 73498, Colonoscopy, flexible; with removal of tumor(s), polyp(s), or other lesion(s) by snare technique CPT copyright 2021 [employer]. All rights reserved. The codes documented in this report are preliminary and upon brineyard supervisor review may be revised to meet current compliance requirements. Tanner Beasley DO 12/28/2024 7:34:59 AM This report has been signed electronically. Number of Addenda: 0 Note Initiated On: 12/28/2024 7:06 AM
--- NOTE | 2024-12-28 07:51 | POSTOPAN2_ITS ---
Anesthesia Postop Eval I Sum Postop Eval Completion status Anesthesia document: Postop Eval 1 completed: Yes Anesthesia Postop Eval I Summary Anesthesia Postop Eval I Summary: Anesthesia Postop Eval I: Assessment Summary Airway patent Yes 12/28/24 07:30 CASE LOADER OPERATOR.MDOT Spontaneous unlabored Yes 12/28/24 07:30 CASE LOADER OPERATOR.MDOT respirations Mental status Awake,Calm 12/28/24 07:30 CASE LOADER OPERATOR.MDOT nausea No 12/28/24 07:30 CASE LOADER OPERATOR.MDOT Vomiting No 12/28/24 07:30 CASE LOADER OPERATOR.MDOT Anesthesia Postop Eval I: Fluid Summary Crystalloid volume administer 20 12/28/24 07:30 CASE LOADER OPERATOR.MDOT (ml) Colloids volume administered ( ml) Blood Product volume administered (ml) Total IV fluid infused 20 12/28/24 07:30 CASE LOADER OPERATOR.MDOT Anesthesia Postop Eval I: Summary Notes Anesthesia Complication No 12/28/24 07:30 CASE LOADER OPERATOR.MDOT Anesthesia Complication Comment: Post-operative progress note Anesthesia: Postop Eval II Evaluation Mental status: Awake and Calm Pain Level: 0 nausea: No Vomiting: No Complications Anesthesia Complication: No
--- NOTE | 2024-12-28 07:51 | PCM.POSTANE2 ---
Anesthesia Postop Eval I Sum Postop Eval Completion status Anesthesia document: Postop Eval 1 completed: Yes Anesthesia Postop Eval I Summary Anesthesia Postop Eval I Summary: Anesthesia Postop Eval I: Assessment Summary Airway patent Yes 12/28/24 07:30 DIRECTOR CORPORATE SECURITY.MDOT Spontaneous unlabored Yes 12/28/24 07:30 DIRECTOR CORPORATE SECURITY.MDOT respirations Mental status Awake,Calm 12/28/24 07:30 DIRECTOR CORPORATE SECURITY.MDOT nausea No 12/28/24 07:30 DIRECTOR CORPORATE SECURITY.MDOT Vomiting No 12/28/24 07:30 DIRECTOR CORPORATE SECURITY.MDOT Anesthesia Postop Eval I: Fluid Summary Crystalloid volume administer 20 12/28/24 07:30 DIRECTOR CORPORATE SECURITY.MDOT (ml) Colloids volume administered ( ml) Blood Product volume administered (ml) Total IV fluid infused 20 12/28/24 07:30 DIRECTOR CORPORATE SECURITY.MDOT Anesthesia Postop Eval I: Summary Notes Anesthesia Complication No 12/28/24 07:30 DIRECTOR CORPORATE SECURITY.MDOT Anesthesia Complication Comment: Post-operative progress note Anesthesia: Postop Eval II Evaluation Mental status: Awake and Calm Pain Level: 0 nausea: No Vomiting: No Complications Anesthesia Complication: No
== END 2024-12-28 08:06 | disposition home or self-care (01) ==
LOC: EN 05:14 → AC 05:15
PROVIDERS: PCP Family Medicine; Referring Provider Family Medicine; Visit Provider Internal Medicine Gastroenterology
PROC: 0DJD8ZZ Inspection of Lower Intestinal Tract, Via Natural or Artificial Opening Endoscopic (ICD-10-PCS; CPT 45378; principal; 2024-12-28 06:25)
DX: K29.51 Unspecified chronic gastritis with bleeding (principal); I11.0 Hypertensive heart disease with heart failure; I50.9 Heart failure, unspecified; J44.9 Chronic obstructive pulmonary disease, unspecified; Z80.0 Family history of malignant neoplasm of digestive organs; K57.30 Diverticulosis of large intestine without perforation or abscess without bleeding; I25.10 Atherosclerotic heart disease of native coronary artery without angina pectoris; E78.00 Pure hypercholesterolemia, unspecified; K21.9 Gastro-esophageal reflux disease without esophagitis; D50.9 Iron deficiency anemia, unspecified; F17.210 Nicotine dependence, cigarettes, uncomplicated; K44.9 Diaphragmatic hernia without obstruction or gangrene; Z79.899 Other long term (current) drug therapy; Z90.49 Acquired absence of other specified parts of digestive tract; K22.11 Ulcer of esophagus with bleeding; D12.3 Benign neoplasm of transverse colon
CPT/HCPCS: 45385; 43239; 88305; 88342; A4216

== ENCOUNTER → 2025-06-12 | Outpatient (CLI) | payer MEDICARE, SELFPAY ==
[2021-10-20 08:51] VITALS: BMI 26.6
[2025-06-12 17:40] LABS: AST(SGOT) 21 U/L (<=31); Alanine Aminotransfer ALT/SGPT 13 U/L (<=34); Albumin, Serum 4.3 g/dL (3.4-4.8); Alkaline Phosphatase 85 U/L (35-104); Anion Gap 14 (5-15); BUN 12 mg/dL (4-19); BUN/Creat Ratio 14.3 RATIO (10-20); Calcium,Total 9.5 mg/dL (7.6-11.0); Carbon Dioxide 21.6 mmol/L (21.0-32.0); Chloride 102 mmol/L (98-108); Ferritin 21 ng/mL (22-378); Globulin 3.4 g/dL (2.2-4.2); Glucose 87 mg/dL (70-99); Iron 26 ug/dL (50-170); Potassium 4.5 mmol/L (3.3-5.1); Pro- Brain NATRIURETIC PEPTIDE 1475 pg/mL (<=900)
== END | disposition home or self-care (01) ==
LOC: MTLAB 11:19
PROVIDERS: PCP Family Medicine; Referring Provider Family Medicine; Visit Provider Family Medicine
DX: K76.89 Other specified diseases of liver (principal); D64.9 Anemia, unspecified
CPT/HCPCS: 36415; 80053; 82728; 83540; 83880

== ENCOUNTER 2025-06-13 13:27 | Observation (INO) | payer MEDICARE, SELFPAY ==
[2021-10-20 08:51] VITALS: BMI 26.6
[2025-06-13] VITALS (18 sets, daily range): BP systolic 130–166; BP diastolic 71–95; PULSE 64–85; RESP 12–26; TEMP 36.2–37.2; O2SAT 97–100; BMI 27.2; BMI 26.7
--- NOTE | 2025-06-13 13:42 | EKG12_ITS ---
Test Reason : CP Blood Pressure : */* mmHG Vent. Rate : 87 BPM Atrial Rate : 87 BPM P-R Int : 174 ms QRS Dur : 92 ms QT Int : 398 ms P-R-T Axes : 52 15 34 degrees QTcB Int : 478 ms Sinus rhythm with marked sinus arrhythmia Otherwise normal ECG Confirmed by DANNY MAGAÑA ([id number]), research editor BAR GUERRA ([id number]) on 06/17/2025 6:46:17 AM Referred By: CARROLL/KASHIF Confirmed By: DANNY MAGAÑA
--- NOTE | 2025-06-13 13:43 | RAD_ITS ---
PROCEDURE: CHEST PA AND LATERAL 06/13/2025 REASON FOR EXAM: CHEST PAIN TECHNIQUE: CHEST PA AND LATERAL COMPARISON: October 16, 2024 FINDINGS: Hardware: Lower cervical spine fusion. EKG leads. Heart: Mildly enlarged status post median sternotomy and CABG. Mediastinum: No mass. Lungs: Local architectural distortion, volume loss in the periphery of the inferior lateral right upper lobe. Wedge resection with posttreatment change. This is similar to prior. No new consolidation. Bones: Degenerative changes are identified within the thoracic spine. Surgical clips right upper quadrant presumably from cholecystectomy. RAD/Chest PA and Lateral IMPRESSION: 1. No acute abnormality. No interval change in the posttreatment right upper lobe. Reading Location: [id number]
--- NOTE | 2025-06-13 13:54 | EDS_ITS ---
HPI History of Present Illness Chief Complaint: Chest Pain Narrative Narrative: Chief complaint and HPI: Chest pain. 69-year-old female with past medical history of COPD with tobacco abuse, CAD status post CABG and PCI, HTN, HLD, history of lung cancer status post partial lobectomy status post surgical excision and radiation therapy CHF, HOWARD history of GI bleeds presents for evaluation of chest pain. Patient states yesterday she developed left-sided chest pain. Radiates into the upper arm. Not into the jaw. She has not taken anything for the pain other than a nitro which made no improvement. Associated symptom is a cough for the past several weeks. Patient as well as daughter states that last time she presented with chest pain and a cough she had a GI bleed. She denies any bloody bowel movements. Denies any abdominal pain. Denies any fever, chills, URI symptoms. States she does have some mild shortness of breath. Review of systems: See HPI Medications: As listed on the chart Allergies: As listed on the chart PFSH: Per chart Vital signs: As listed on the chart. Reviewed. Physical exam: Gen: A&O x3, NAD Head: Normocephalic, atraumatic Eyes: No sclera icterus, conjunctiva clear ENT: Moist mucous membranes Neck: Trachea midline, No JVD CV: RRR, no murmurs, no peripheral edema Resp: Lungs CTA BL, no w/r/c GI: Abd soft, non-distended, non-tender, no r/r/g Musc: Full ROM, no deformity Skin: Warm, dry Neuro: Alert, oriented, grossly intact, sensation intact Psych: Cooperative, appropriate mood and affect [facility] Medical History Wears glasses Loose, teeth Cancer Depression Bladder disease History of steroid therapy Arthritis High cholesterol Restless legs History of GI bleed On home oxygen therapy Smoker Sleep apnea History of echocardiogram History of stress test Cardiology follow-up encounter GERD (gastroesophageal reflux disease) Lung cancer Anxiety Atherosclerotic heart disease of [place] coronary artery with unstable angina pectoris Congestive heart failure History of COPD Anemia Angina of effort Myocardial infarction, silent Adenocarcinoma of lung, stage 1 Lung cancer Melanoma Pure hypercholesterolemia Worsening angina Chest pain, unspecified HOWARD (obstructive sleep apnea) Osteoarthritis DDD (degenerative disc disease) Premature ventricular contraction Pericardial effusion Atherosclerotic heart disease of [place] coronary artery without angina pectoris Nonrheumatic mitral (valve) prolapse Tobacco abuse Essential hypertension Home Medications ?Medication ?Instructions ?Recorded ?Last Taken ?Type omeprazole 20 mg capsule,delayed 20 mg PO DAILY acid r eflux 02/04/16 12/27/24 History release albuterol sulfate 90 mcg/actuation 1 puff inhalation Q 6H PRN Sob &/Or 07/28/20 06/14/22 History aerosol inhaler Wheezing ipratropium 0.5 mg-albuterol 3 mg 3 ml inhalation Q4H PRN shortness 12/29/20 06/08/22 Rx (2.5 mg base)/3 mL nebulization of breath or wheezing #180 mL soln nebulizer and compressor #1 ea 06/11/22 Unknown Rx primidone 50 mg tablet 150 mg PO QHS seizures 30 da ys #90 01/10/24 12/27/24 Hist ory tabs prazosin 2 mg capsule 2 mg PO QHS blood pressure 0 01/12/24 12/27/24 History budesonide 1 mg/2 mL suspension 1 mg (2 mL) inhalation BID 02/03/24 Unknown Rx for nebulization BREATHING #60 mL nitroglycerin 0.4 mg sublingual 0.4 mg sublingual Q5M PRN Chest 02/08/24 Unknown Rx tablet Pain #25 tabs metoprolol succinate 25 mg 12.5 mg (1/2 x 25 mg) PO DA MARI 02/13/24 12/27/24 Rx tablet,extended release 24 hr blood pressure #45 TABLE TS sertraline 100 mg tablet 150 mg PO DAILY mood 4 12/27/24 History furosemide 20 mg tablet (Lasix) 20 mg PO BID diuretic #90 tabs 04/02/25 Unknown Rx Allergy/AdvReac Type Severity Reaction Status Date / Time Iodinated Contrast Media Allergy Hives Verified 06/13/25 13:29 (Iodinated Contrast Media - IV Dye) mesalamine (From Asacol) Allergy GASTRIC Verified 06/13/25 13:29 HEMORRHAGE tetracycline (Tetracycline) Allergy Hives Verified 06/13/25 13:29 pravastatin AdvReac Intermediate Upset Verified 06/13/25 13:29 Stomach atorvastatin (From Lipitor) AdvReac myalgia Verified 06/13/25 13:29 Family History Father Hypertension Colon cancer Alcoholism Mother Cancer LUNG CANCER/ SMOKER Father , MELANOMA No problems noted. Surgical History History of coronary artery stent placement History of cardiac catheterization History of cervical spinal surgery S/P partial lobectomy of lung interstim placement (~08/05/20) Presence of coronary angioplasty implant and graft (~03/12/18) History of cataract surgery History of abdominal surgery History of total hysterectomy History of cholecystectomy History of bowel resection Hx of appendectomy Presence of stent in coronary artery (~06/15/22) Aortocoronary bypass status (~05/12/04) Postsurgical percutaneous transluminal coronary angioplasty (PTCA) status (~03/12/18) Social History adopted: No housing: house number of children: 1 current occupational status: retired current occupational exposures/hazards: No Smoking Status: Current every day smoker tobacco type: cigarettes Tobacco: How many years used: 50 how long ago did patient quit smokin weeks ago alcohol intake: never substance use type: does not use caffeine: Yes Type: carbonated beverages Number of servings: 2 EXAM Physical Exam Const Vital Signs: 06/13/25 13:28 06/13/25 13:34 06/13/25 13:35 Temperature 97.8 F Temperature Source Temporal Pulse Rate 85 76 Respiratory Rate 17 14 Respiratory Effort Short of Breath Blood Pressure 130/78 H 158/91 H Blood Pressure Mean 95 113 Pulse Ox 97 98 Oxygen Delivery Method Room Air Room Air 06/13/25 13:44 06/13/25 13:45 06/13/25 14:00 Temperature Temperature Source Pulse Rate 77 74 76 Respiratory Rate 12 23 H 15 Respiratory Effort Blood Pressure Blood Pressure Mean Pulse Ox 99 98 99 Oxygen Delivery Method 06/13/25 14:15 06/13/25 14:30 06/13/25 14:31 Temperature Temperature Source Pulse Rate 76 Respiratory Rate 16 Respiratory Effort Blood Pressure 135/74 H Blood Pressure Mean 91 Pulse Ox 98 98 99 Oxygen Delivery Method Room Air 06/13/25 14:45 06/13/25 15:00 06/13/25 15:15 Temperature Temperature Source Pulse Rate 70 68 68 Respiratory Rate 19 H 23 H 18 Respiratory Effort Blood Pressure 144/79 H 153/76 H Blood Pressure Mean 98 99 Pulse Ox 98 98 100 Oxygen Delivery Method Room Air Room Air 06/13/25 15:15 06/13/25 15:30 06/13/25 15:45 Temperature Temperature Source Pulse Rate 66 Respiratory Rate 17 Respiratory Effort Blood Pressure 152/88 H 154/84 H 152/85 H Blood Pressure Mean 108 104 105 Pulse Ox 98 Oxygen Delivery Method 06/13/25 16:00 Temperature Temperature Source Pulse Rate 71 Respiratory Rate 26 H Respiratory Effort Blood Pressure 164/92 H Blood Pressure Mean 113 Pulse Ox 99 Oxygen Delivery Method Room Air MDM MDM MDM Narrative Medical decision making narrative: 69-year-old female with past medical history of COPD with tobacco abuse, CAD status post CABG and PCI, HTN, HLD, history of lung cancer status post partial lobectomy status post surgical excision and radiation therapy CHF, HOWARD history of GI bleeds presents for evaluation of chest pain. Associated symptom is a cough for the past several weeks. Family as well as patient states that that patient has presented like this in the past and had GI bleeds. Differential diagnosis includes but is not limited to ACS, pneumonia, electrolyte abnormality, GI bleed suspect less likely PE. On chart review, patient follows with Dr. Reina. I reviewed the cardiology note from 12/06/2024. Her last cardiac catheterization was 06/15/2022 in which she received successful PCI with ADOLPH to the proximal D1. Her last echocardiogram was 10/17/2024 in which her EF was 60%. Cardiac workup ordered. Although patient has a history of GI bleed she was still given aspirin for possible ACS. CBC without leukocytosis. Patient has anemia with hemoglobin 9.9. Last hemoglobin was normal in December at 13.4. However patient has history of anemia. Not reporting any dark stools. Platelet count unremarkable. Coagulation panel unremarkable. D-dimer negative for age. BMP relatively unremarkable. BNP mildly elevated at 965. Patient not overtly fluid overloaded on physical exam or chest x-ray. Troponin 23 and 21. On reevaluation, patient still endorsing some mild left-sided chest pain. Her heart score is a 6. Given patient's heart history, I do think she would benefit from an ACS workup inpatient with stress test. Stool occult negative. I spoke with her as well as family. Everybody in agreement. Patient was discussed with the hospitalist service who accepted admission EKG: Interpreted by me/EM physician: EKG shows sinus arrhythmia without any acute ischemic changes. Her 89 Diagnostic: Interpreted by me/EM physician: Patient has chronic right upper lobe changes. Chest x-ray no pneumonia, effusion, cardiomegaly, pneumothorax. Radiology in agreement. Impression: 1. Chest pain 2. Anemia Lab Data Labs: Laboratory Results - last 24 hr 06/13/25 06/13/25 13:42 15:38 WBC 6.6 RBC 3.92 L Hgb 9.9 L Hct 32.5 L MCV 82.9 MCH 25.3 L MCHC 30.5 L RDW Std Deviation 48.2 H RDW Coeff of Kit 15.9 H Plt Count 220 MPV 10.5 Immature Gran % (Auto) 0.500 Neut % (Auto) 63.7 Lymph % (Auto) 25.8 [place] % (Auto) 8.0 Eos % (Auto) 1.2 Baso % (Auto) 0.8 Absolute Neuts (auto) 4.2 Absolute Lymphs (auto) 1.71 Nucleated RBC % 0 PT 14.2 INR 1.1 APTT 32.5 D-Dimer Quant (PE/DVT) 0.52 H* Sodium 137 Potassium 3.9 Chloride 102 Carbon Dioxide 20.7 L Anion Gap 14 BUN 10 Creatinine 0.81 Estim Creat Clear Calc 62.25 Est GFR (MDRD) Non-Af 79 BUN/Creatinine Ratio 12.7 Glucose 131 H Calcium 9.0 Troponin T High Sens 23 H Troponin T Hi Sens 2 Hr 21 H NT pro BNP II 965 H Radiography Diagnostic Testing: Clinical Impression(s) from Imaging Studies Chest X-Ray 06/13/25 13:43 IMPRESSION: 1. No acute abnormality. No interval change in the posttreatment right upper lobe. Reading Location: [id number] Discharge Plan Triage Chief Complaint: Chest Pain ED Provider: Hermelindo Vega Dx/Rx/DC Orders Prescriptions: No Action primidone 50 mg tablet 150 mg PO QHS 30 Days Qty: 90 budesonide 1 mg/2 mL suspension for nebulization 1 mg inhalation BID Qty: 60 6RF nitroglycerin 0.4 mg tablet, sublingual 0.4 mg SUBLINGUAL Q5M PRN (Reason: Chest Pain) Qty: 25 3RF Rx Instructions: Place one tab under tongue every 5 minutes x 3 doses as needed omeprazole 20 MG capsule 20 mg PO DAILY albuterol sulfate 1 PUFF inhaler 1 puff INHALATION Q6H PRN (Reason: Sob &/Or Wheezing) (DME) nebulizer and compressor Device See Rx Instructions .Route Qty: 1 0RF Rx Instructions: As directed prazosin 2 mg capsule 2 mg PO QHS sertraline 100 mg tablet 150 mg PO DAILY ipratropium-albuterol 0.5 mg-3 mg(2.5 mg base)/3 mL solution for nebulization 3 ml INHALATION Q4H PRN (Reason: shortness of breath or wheezing) Qty: 180 3RF metoprolol succinate 25 mg tablet extended release 24 hr 12.5 mg PO DAILY Qty: 45 3RF furosemide [Lasix] 20 mg tablet 20 mg PO BID Qty: 90 3RF Primary Care Provider: Sen Odom Referrals: Sen Odom MD [Primary Care Provider] - Print Language: Latvian
[2025-06-13 13:57] LABS: Hematocrit 32.5 % (37-47); Hemoglobin 9.9 g/dL (12.0-15.0); Immature Granulocytes Count 0.030 X10^3/uL (0.0-0.0); Mean Corp Hgb Conc 30.5 g/dL (32-36); Mean Corpuscular Volume 82.9 fL (81-99); Mean Platelet Vol. 10.5 fl (6.2-12.0); NRBC Flagged by Analyzer 0 % (0-5); Platelet Count 220 K/mm3 (150-450); RBC Distribution Width CV 15.9 % (11.6-14.6); RBC Distribution Width SD 48.2 fl (35.1-43.9); Red Blood Count 3.92 M/mm3 (4.2-5.4); White Blood Count 6.6 K/mm3 (4.4-11.0)
[2025-06-13 14:08] LABS: Anion Gap 14 (5-15); BUN 10 mg/dL (4-19); BUN/Creat Ratio 12.7 RATIO (10-20); Calcium,Total 9.0 mg/dL (7.6-11.0); Carbon Dioxide 20.7 mmol/L (21.0-32.0); Chloride 102 mmol/L (98-108); Estimated Creatinine Clearance 62.25 ml/min (50-250); Glucose 131 mg/dL (70-99); Potassium 3.9 mmol/L (3.3-5.1); Pro- Brain NATRIURETIC PEPTIDE 965 pg/mL (<=900); Troponin T High Sensitivity 23 ng/L (<=14)
[2025-06-13 14:09] LABS: Partial Thromboplast Time 32.5 Seconds (24.1-36.2); Prothrombin Time (Protime)PT. 14.2 SECONDS (11.7-14.9)
[2025-06-13 14:50] LABS: D-Dimer Quantitative (DVT/PE) 0.52 FEU/ug/m (0.27-0.49)
[2025-06-13 16:06] LABS: Troponin T High Sens 2 HR 21 ng/L (<=14)
--- NOTE | 2025-06-13 17:04 | HP.PCM.HOS_ITS ---
[facility] - General General Date of Service: 06/13/25 Chief Complaint: Chest pain [facility] Narrative TEODORO ALMEIDA, is a 70 F who presents with chest pain. Symptoms began today. Patient had midsternal chest pain that goes to her left arm and associated with shortness of breath. Patient has had a history of CABG as well as stents in the past and she had different symptoms at that time. Presented to the emergency room underwent a workup that showed mild elevation of troponins of 23 and then 21. With her chest pain, elevated troponins, in the hospitalists service was contacted for admission. She states that she has had similar symptoms like this when she had a GI bleed. Back in December she underwent EGD that showed acute gastritis with hemorrhage. [facility] Medical History Wears glasses Loose, teeth Cancer Depression Bladder disease History of steroid therapy Arthritis High cholesterol Restless legs History of GI bleed On home oxygen therapy Smoker Sleep apnea History of echocardiogram History of stress test Cardiology follow-up encounter GERD (gastroesophageal reflux disease) Lung cancer Anxiety Atherosclerotic heart disease of [place] coronary artery with unstable angina pectoris Congestive heart failure History of COPD Anemia Angina of effort Myocardial infarction, silent Adenocarcinoma of lung, stage 1 Lung cancer Melanoma Pure hypercholesterolemia Worsening angina Chest pain, unspecified HOWARD (obstructive sleep apnea) Osteoarthritis DDD (degenerative disc disease) Premature ventricular contraction Pericardial effusion Atherosclerotic heart disease of [place] coronary artery without angina pectoris Nonrheumatic mitral (valve) prolapse Tobacco abuse Essential hypertension Home Medications ?Medication ?Instructions ?Recorded ?Last Taken ?Type omeprazole 20 mg capsule,delayed 20 mg PO DAILY acid r eflux 02/04/16 12/27/24 History release albuterol sulfate 90 mcg/actuation 1 puff inhalation Q 6H PRN Sob &/Or 07/28/20 06/14/22 History aerosol inhaler Wheezing ipratropium 0.5 mg-albuterol 3 mg 3 ml inhalation Q4H PRN shortness 12/29/20 06/08/22 Rx (2.5 mg base)/3 mL nebulization of breath or wheezing #180 mL soln nebulizer and compressor #1 ea 06/11/22 Unknown Rx primidone 50 mg tablet 150 mg PO QHS seizures 30 da ys #90 01/10/24 12/27/24 History tabs prazosin 2 mg capsule 2 mg PO QHS blood pressure 0 01/12/24 12/27/24 History budesonide 1 mg/2 mL suspension 1 mg (2 mL) inhalation BID 02/03/24 Unknown Rx for nebulization BREATHING #60 mL nitroglycerin 0.4 mg sublingual 0.4 mg sublingual Q5M PRN Chest 02/08/24 Unknown Rx tablet Pain #25 tabs metoprolol succinate 25 mg 12.5 mg (1/2 x 25 mg) PO DA MARI 02/13/24 12/27/24 Rx tablet,extended release 24 hr blood pressure #45 TABLE TS sertraline 100 mg tablet 150 mg PO DAILY mood 4 12/27/24 History furosemide 20 mg tablet (Lasix) 20 mg PO BID diuretic #90 tabs 04/02/25 Unknown Rx Allergy/AdvReac Type Severity Reaction Status Date / Time Iodinated Contrast Media Allergy Hives Verified 06/13/25 13:29 (Iodinated Contrast Media - IV Dye) mesalamine (From Asacol) Allergy GASTRIC Verified 06/13/25 13:29 HEMORRHAGE tetracycline (Tetracycline) Allergy Hives Verified 06/13/25 13:29 pravastatin AdvReac Intermediate Upset Verified 06/13/25 13:29 Stomach atorvastatin (From Lipitor) AdvReac myalgia Verified 06/13/25 13:29 Family History Father Hypertension Colon cancer Alcoholism Mother Cancer LUNG CANCER/ SMOKER Father , MELANOMA No problems noted. Surgical History History of coronary artery stent placement History of cardiac catheterization History of cervical spinal surgery S/P partial lobectomy of lung interstim placement (~08/05/20) Presence of coronary angioplasty implant and graft (~03/12/18) History of cataract surgery History of abdominal surgery History of total hysterectomy History of cholecystectomy History of bowel resection Hx of appendectomy Presence of stent in coronary artery (~06/15/22) Aortocoronary bypass status (~05/12/04) Postsurgical percutaneous transluminal coronary angioplasty (PTCA) status (~03/12/18) Social History adopted: No housing: house number of children: 1 current occupational status: retired current occupational exposures/hazards: No Smoking Status: Current every day smoker tobacco type: cigarettes Tobacco: How many years used: 50 how long ago did patient quit smokin weeks ago alcohol intake: never substance use type: does not use caffeine: Yes Type: carbonated beverages Number of servings: 2 ROS ROS Narrative Denies any melena nor any hematochezia. All review of systems were negative except as mentioned above in the history of present illness and the other review of systems. Vital Signs Vital Signs Vital Signs: 06/13/25 13:28 06/13/25 13:34 06/13/25 13:35 Temperature 36.6 C Temperature Source Temporal Pulse Rate 85 76 Respiratory Rate 17 14 Respiratory Effort Short of Breath Blood Pressure 130/78 H 158/91 H Blood Pressure Mean 95 113 Pulse Ox 97 98 Oxygen Delivery Method Room Air Room Air 06/13/25 13:44 06/13/25 13:45 06/13/25 14:00 Temperature Temperature Source Pulse Rate 77 74 76 Respiratory Rate 12 23 H 15 Respiratory Effort Blood Pressure Blood Pressure Mean Pulse Ox 99 98 99 Oxygen Delivery Method 06/13/25 14:15 06/13/25 14:30 06/13/25 14:31 Temperature Temperature Source Pulse Rate 76 Respiratory Rate 16 Respiratory Effort Blood Pressure 135/74 H Blood Pressure Mean 91 Pulse Ox 98 98 99 Oxygen Delivery Method Room Air 06/13/25 14:45 06/13/25 15:00 06/13/25 15:15 Temperature Temperature Source Pulse Rate 70 68 68 Respiratory Rate 19 H 23 H 18 Respiratory Effort Blood Pressure 144/79 H 153/76 H Blood Pressure Mean 98 99 Pulse Ox 98 98 100 Oxygen Delivery Method Room Air Room Air 06/13/25 15:15 06/13/25 15:30 06/13/25 15:45 Temperature Temperature Source Pulse Rate 66 Respiratory Rate 17 Respiratory Effort Blood Pressure 152/88 H 154/84 H 152/85 H Blood Pressure Mean 108 104 105 Pulse Ox 98 Oxygen Delivery Method 06/13/25 16:00 06/13/25 17:00 Temperature 36.6 C Temperature Source Pulse Rate 71 74 Respiratory Rate 26 H 22 H Respiratory Effort Blood Pressure 164/92 H 166/95 H Blood Pressure Mean 113 118 Pulse Ox 99 99 Oxygen Delivery Method Room Air Weight Weight: 69.7 kg Body Mass Index (BMI) 27.2 Physical Exam Narrative - Physical Exam General: Alert, Oriented x3, Cooperative HEENT: Atraumatic, PERRLA, EOMI, Normocephalic Oral: Moist Mucosa, No Gingival or Mucosal Lesions/ Ulcerations Neck: Supple, No JVD, Negative Carotid Bruits Lungs: Clear to auscultation, Normal air movement Cardiovascular: Regular rate, Normal S1, Normal S2, No murmurs Abdomen: Bowel Sounds Present, Soft, Non Tender, Non-Distended, No Hepato- splenomegaly Extremities: No clubbing, No cyanosis, No edema, Capillary Refill Less than 3 Seconds Skin: No rashes, No breakdown Musculoskeletal: No Tenderness to Palpation of Joints or Extremities. Reproducible anterior chest wall tenderness at the sternum. Neurological: Neuro grossly intact Psych/Mental Status: Normal Affect, Appropriate Results Lab / Micro Data Attestation: I reviewed the patient's lab results. 06/13/25 13:42 06/13/25 13:42 Labs: Laboratory Results - last 24 hr 06/13/25 13:42: WBC 6.6, RBC 3.92 L, Hgb 9.9 L, Hct 32.5 L, MCV 82.9, MCH 25.3 L , MCHC 30.5 L, RDW Std Deviation 48.2 H, RDW Coeff of Kit 15.9 H, Plt Count 220, MPV 10.5, Immature Gran % (Auto) 0.500, Neut % (Auto) 63.7, Lymph % (Auto) 25.8, [place] % (Auto) 8.0, Eos % (Auto) 1.2, Baso % (Auto) 0.8, Absolute Neuts (auto) 4.2, Absolute Lymphs (auto) 1.71, Nucleated RBC % 0, PT 14.2, INR 1.1, APTT 32.5, D-Dimer Quant (PE/DVT) 0.52 H*, Sodium 137, Potassium 3.9, Chloride 102, C arbon Dioxide 20.7 L, Anion Gap 14, BUN 10, Creatinine 0.81, Estim Creat Clear Calc 62.25, Est GFR (MDRD) Non-Af 79, BUN/Creatinine Ratio 12.7, Glucose 131 H, Calcium 9.0, Troponin T High Sens 23 H, NT pro BNP II 965 H 06/13/25 15:38: Troponin T Hi Sens 2 Hr 21 H Micro: Microbiology 06/13/25 14:30 Stool Stool Occult Blood (KATE) - Final EKG Initial EKG: Attestation: I personally reviewed and interpreted this EKG as follows: Prior EKG tracings: available for review EKG Rhythm Intrepretation: Sinus Rhythm Imaging Radiology Impression Chest X-Ray 06/13/25 13:43 IMPRESSION: 1. No acute abnormality. No interval change in the posttreatment right upper lobe. Reading Location: [id number] Assessment & Plan Assessment/Plan (1) Chest pain: QUALIFIERS: Chest pain type: unspecified Qualified Code(s): R07.9 - Chest pain, unspecified PLAN: Midsternal with it radiating to her left arm and associated shortness of breath. Given her past medical history of CAD, is appropriate bring the patient hospital and have further cardiac workup with a stress test. Will perform a nuclear chemical stress test on the . If abnormal then would recommend consulting cardiology but if negative then patient can likely be discharged. Patient's D-dimer was elevated however it is normal for her age and evaluation for PE is necessary at this time. PLAN: Plan Anemia: Down from December hemoglobin is 9.9 back in December was 13.4. Will continue to monitor for now. Patient denies any GI symptoms at present. Depression: Continue sertraline VTE prophylaxis: Not indicated as patient is observation status at this time. CODE STATUS: Addressed with the patient. Patient wished to be full code. Case discussed with the patient's daughter at bedside. Charges/Coding Visit Charges Inpatient E&M: 75778 Init Hosp L2
--- NOTE | 2025-06-13 19:54 | EKG12_ITS ---
Test Reason : STRESS TEST Blood Pressure : */* mmHG Vent. Rate : 65 BPM Atrial Rate : 65 BPM P-R Int : 174 ms QRS Dur : 96 ms QT Int : 442 ms P-R-T Axes : 38 26 27 degrees QTcB Int : 459 ms Normal sinus rhythm Normal ECG When compared with ECG of 13-Jun-2025 20:17, MANUAL COMPARISON REQUIRED DATA IS UNCONFIRMED Confirmed by DANNY MAGAÑA ([id number]), news video editor VERÓNICA THAPA ([id number]) on 06/17/2025 7:39:13 AM Referred By: ARTIS Confirmed By: DANNY MAGAÑA
[2025-06-13] MEDS: Budesonide Respules 0.5 MG/2 ML AMPUL.NEB. 1 MG INHALATION (20:15)
[2025-06-14] VITALS (7 sets, daily range): BP systolic 132–153; BP diastolic 58–82; PULSE 58–89; RESP 17–19; TEMP 35.7–37.2; O2SAT 96–100
--- NOTE | 2025-06-14 05:55 | EKG12_ITS ---
Test Reason : CP ADMIT Blood Pressure : */* mmHG Vent. Rate : 69 BPM Atrial Rate : 69 BPM P-R Int : 180 ms QRS Dur : 92 ms QT Int : 420 ms P-R-T Axes : 48 13 25 degrees QTcB Int : 450 ms AV dual-paced rhythm Abnormal ECG When compared with ECG of 13-Jun-2025 13:34, MANUAL COMPARISON REQUIRED DATA IS UNCONFIRMED Confirmed by DANNY MAGAÑA ([id number]), deputy editor in chief VERÓNICA THAPA ([id number]) on 06/17/2025 7:40:16 AM Referred By: ARTIS Confirmed By: DANNY MAGAÑA
[2025-06-14] MEDS: Aspirin E.C. 81 MG Tablet PO (06:01)
[2025-06-14] MEDS: Budesonide Respules 0.5 MG/2 ML AMPUL.NEB. 1 MG INHALATION (06:56)
[2025-06-14 07:33] LABS: Hematocrit 32.8 % (37-47); Hemoglobin 10.1 g/dL (12.0-15.0); Immature Granulocytes Count 0.010 X10^3/uL (0.0-0.0); Mean Corp Hgb Conc 30.8 g/dL (32-36); Mean Corpuscular Volume 82.8 fL (81-99); Mean Platelet Vol. 11.2 fl (6.2-12.0); NRBC Flagged by Analyzer 0 % (0-5); Platelet Count 207 K/mm3 (150-450); RBC Distribution Width CV 15.8 % (11.6-14.6); RBC Distribution Width SD 47.9 fl (35.1-43.9); Red Blood Count 3.96 M/mm3 (4.2-5.4); White Blood Count 5.3 K/mm3 (4.4-11.0)
[2025-06-14 08:16] LABS: Anion Gap 13 (5-15); BUN 14 mg/dL (4-19); BUN/Creat Ratio 14.9 RATIO (10-20); Calcium,Total 9.4 mg/dL (7.6-11.0); Carbon Dioxide 23.5 mmol/L (21.0-32.0); Chloride 100 mmol/L (98-108); Cholesterol 178 mg/dL (<=200); Estimated Creatinine Clearance 54.96 ml/min (50-250); Glucose 99 mg/dL (70-99); Low Density Lipoprotein Calc. 87 mg/dL; Potassium 4.0 mmol/L (3.3-5.1); Triglycerides 71 mg/dL; Very Low Density Lipoprotein 14 mg/dL (5-40); cholesterol:hdl ratio screen 2.33
[2025-06-14] MEDS: Metoprolol(XL)Succ 25 MG Tablet 12.5 MG PO (10:48)
--- NOTE | 2025-06-14 16:06 | CASEMGMT ---
JACOB Met with patient to complete JACOB form. JACOB form and its content were verbally explained and patient's questions were answered to the best of my ability.? Patient voiced understanding and signed JACOB form.? Patient provided a copy of signed JACOB form and original placed in patient's chart.? Patient had no further questions. Lisa Martin, Discharge Planning Asst
--- NOTE | 2025-06-14 17:15 | STRESSREP_ITS ---
Stress Test Report Pharmacologic/Lexiscan myocardial perfusion stress test. Indication; 70-year-old patient with symptoms of chest pain Had a history of non-ST elevation CT in 2021. History of drug-eluting stent to the LAD In history of coronary artery bypass surgery in 2003. As well patient had a history of PCI drug-eluting stent to proximal diagonal and to the left main-2018 The coronary artery bypass surgery was in 2003 Patient had symptoms of chest pain and is scheduled for Lexiscan sestamibi. Stress protocol: Resting EKG demonstrates. Normal sinus rhythm. 0.4 mg of regadenoson was infused per usual protocol followed by rapid intravenous saline flush injection continuous EKG monitoring was performed. The maximum heart rate attained was 85 bpm which was 55% of maximum predicted heart . Stress EKG showed[, no significant change from the resting EKG, with maximum heart rate of 85 bpm. Arrhythmia: Episodes of PVCs, infrequent Symptoms: Patient had no symptoms of chest pain Blood pressure at rest: 118/70 mmHg blood pressure at the end of stress: 118/70 mmHg Myocardial perfusion protocol. [12 mCi ]of Technetium 99m Sestamibi was injected at rest. [ 0.4 mg ]of Regadenoson was infused per usual protocol peak infusion[36 mCi ]of Technetium 99m sestamibi was injected. Stress images were obtained stress and rest images were reconstructed and compared in the short axis vertical and horizontal long axis. Gated images were also obtained Perfusion SPECT analysis: Review of the images demonstrate fixed apical and anterior defect consistent with previous CT With no evidence of reversible myocardial ischemia. Gated SPECT analysis: The gated ejection fraction is 67% Wall motion showed hyperdynamic left ventricle. Conclusion: Fixed apical and anterior defect consistent with previous CT No reversible myocardial defect LV function preserved with ejection fraction calculated at 67% Lionel Houser MD,FACC,[facility] transit planner
--- NOTE | 2025-06-14 17:52 | PCM.DC ---
Discharge Instructions DC O2, CPAP, BIPAP needs Home O2 Discharge instructions: No Dressing / Incision Discharge Activity: Return to Normal Activity Weight Bearing Status: Full weight bearing Follow Up Care Test Results: Test results from this visit will be discussed in further detail at your follow-up appointment, if applicable. Discharge Plan Admission Admit Date/Time: 06/13/25 16:53 Primary Reason for Your Visit: Noncardiac chest pain Attending Provider: Diego Nichole Primary Care Provider: Sen Odom Consulting Providers: Jevon Bustillo Discharge Orders/Prescriptions Prescriptions: New isosorbide mononitrate 30 mg tablet extended release 24 hr 30 mg PO DAILY Qty: 30 0RF Continued primidone 50 mg tablet 150 mg PO QHS 30 Days Qty: 90 budesonide 1 mg/2 mL suspension for nebulization 1 mg inhalation BID Qty: 60 6RF nitroglycerin 0.4 mg tablet, sublingual 0.4 mg SUBLINGUAL Q5M PRN (Reason: Chest Pain) Qty: 25 3RF Rx Instructions: Place one tab under tongue every 5 minutes x 3 doses as needed omeprazole 20 MG capsule 20 mg PO DAILY albuterol sulfate 1 PUFF inhaler 1 puff INHALATION Q6H PRN (Reason: Sob &/Or Wheezing) (DME) nebulizer and compressor Device See Rx Instructions .Route Qty: 1 0RF Rx Instructions: As directed prazosin 2 mg capsule 2 mg PO QHS sertraline 100 mg tablet 150 mg PO DAILY ipratropium-albuterol 0.5 mg-3 mg(2.5 mg base)/3 mL solution for nebulization 3 ml INHALATION Q4H PRN (Reason: shortness of breath or wheezing) Qty: 180 3RF metoprolol succinate 25 mg tablet extended release 24 hr 12.5 mg PO DAILY Qty: 45 3RF furosemide [Lasix] 20 mg tablet 20 mg PO BID Qty: 90 3RF Referrals / Follow Up: Sen Odom MD [Primary Care Provider] - Within 2 Weeks Disposition Disposition (needs filled in before D/C Order can be placed): Home, Self Care
--- NOTE | 2025-06-14 18:01 | DS.PCM_ITS ---
Providers Date of Admission: 06/13/25 Date of Discharge: 06/14/25 Primary Care Physician: Dr. Sen Odom MD Reason For Visit: CHEST PAIN Diagnosis Discharge Diagnosis (1) Chest pain: Status: Acute Code(s): R07.9 - Chest pain, unspecified Qualifiers: Chest pain type: unspecified Qualified Code(s): R07.9 - Chest pain, unspecified Plan 1. Musculoskeletal chest pain #2 chronic iron deficiency anemia-etiology unclear #3 essential hypertension #4 chronic obstructive pulmonary disease Medications at Discharge Home Medications omeprazole 20 mg capsule,delayed release 20 mg PO DAILY acid reflux 02/04/16 albuterol sulfate 90 mcg/actuation aerosol inhaler 1 puff inhalation Q6H PRN Sob &/Or Wheezing 07/28/20 ipratropium 0.5 mg-albuterol 3 mg (2.5 mg base)/3 mL nebulization soln 3 ml inhalation Q4H PRN shortness of breath or wheezing #180 mL 12/29/20 nebulizer and compressor #1 ea 06/11/22 primidone 50 mg tablet 150 mg PO QHS seizures 30 days #90 tabs 01/10/24 prazosin 2 mg capsule 2 mg PO QHS blood pressure 01/12/24 budesonide 1 mg/2 mL suspension for nebulization 1 mg (2 mL) inhalation BID BREATHING #60 mL 02/03/24 nitroglycerin 0.4 mg sublingual tablet 0.4 mg sublingual Q5M PRN Chest Pain #25 tabs 02/08/24 metoprolol succinate 25 mg tablet,extended release 24 hr 12.5 mg (1/2 x 25 mg) PO DAILY blood pressure #45 TABLETS 02/13/24 sertraline 100 mg tablet 150 mg PO DAILY mood 10/16/24 furosemide 20 mg tablet (Lasix) 20 mg PO BID diuretic #90 tabs 04/02/25 isosorbide mononitrate 30 mg tablet,extended release 24 hr 30 mg PO DAILY #30 tabs 06/14/25 Hospital Course Operations None Procedures Stress test Summary of Care Provided Minutes Spent on Discharge: 30 Hospital Course: This 70-year-old white female was seen in the emergency room at [facility] with a chief plaint of chest pain. Patient described the discomfort as squeezing in nature and primarily left-sided. Workup in the emergency room included labs which was remarkable for slightly elevated troponins at 23 and 21 respectively. Patient's beta natruretic peptide was elevated at 965, chest x-ray showed no acute abnormality. EKG showed normal sinus rhythm without evidence of ischemic changes. Patient was placed in observation status on PCU and monitored, she underwent a pharmacological nuclear stress test which was negative for reversible ischemia. On 06/14/2025, patient was seen and examined: On examination she appeared in good health and spirits, she does not appear to be in any distress. Vital signs as documented. Skin warm and dry and without overt rashes. Neck without JVD, thyroid appears normal, trachea is midline, neck is supple. Lungs clear, normal air movement was noted. Heart exam notable for regular rhythm, normal sounds and absence of murmurs, rubs or gallops. Abdomen unremarkable and without evidence of organomegaly, masses, or abdominal aortic enlargement, bowel sounds are present in all 4 quadrants, no abdominal tenderness was noted. Extremities nonedematous, no cyanosis was noted, no clubbing was noted. Neuro: Cranial nerves II through XII are grossly intact, no focal motor deficits were noted, sensation to light touch and pinprick is intact, motor exam 5/5 throughout. Psych: Patient is alert and oriented x3, she does not appear anxious or depressed, she does not appear agitated. Patient was discharged home in stable condition on 06/14/2025. Weight / BMI Weight Weight: 68.5 kg Body Mass Index (BMI) 26.7 ABG / Lab / Microbiology Data 06/14/25 06:34 06/14/25 06:34 Laboratory: Laboratory Results - last 24 hr 06/14/25 06:34: WBC 5.3, RBC 3.96 L, Hgb 10.1 L, Hct 32.8 L, MCV 82.8, MCH 25.5 L, MCHC 30.8 L, RDW Std Deviation 47.9 H, RDW Coeff of Kit 15.8 H, Plt Count 207, MPV 11.2, Immature Gran % (Auto) 0.200, Neut % (Auto) 60.7, Lymph % (Auto) 27.0, [place] % (Auto) 9.8, Eos % (Auto) 1.7, Baso % (Auto) 0.6, Absolute Neuts (auto) 3.2, Absolute Lymphs (auto) 1.43, Nucleated RBC % 0, Sodium 136, Potassium 4.0, Chloride 100, Carbon Dioxide 23.5, Anion Gap 13, BUN 14, Creatinine 0.91, Estim Creat Clear Calc 54.96, Est GFR (MDRD) Non-Af 69, BUN/Creatinine Ratio 14.9, Glucose 99, Calcium 9.4, Triglycerides 71, Cholesterol 178, LDL Cholesterol, Calc 87, VLDL Cholesterol 14, HDL Cholesterol 76, Cholesterol/HDL Ratio 2.33 Microbiology: Microbiology 06/13/25 14:30 Stool Stool Occult Blood (KATE) - Final D/C Instructions Weight Bearing Status: Full weight bearing DC O2, CPAP, BIPAP Needs Home O2 Discharge instructions: No Meaningful Use Info Meaningful Use Meaningful Use Diagnoses (Choose all that apply): None applicable Discharge Plan Admission Admit Date/Time: 06/13/25 16:53 Primary Reason for Your Visit: Noncardiac chest pain Attending Provider: Diego Nichole Primary Care Provider: Sen Odom Consulting Providers: Jevon Bustillo Discharge Orders/Prescriptions Prescriptions: New isosorbide mononitrate 30 mg tablet extended release 24 hr 30 mg PO DAILY Qty: 30 0RF Continued primidone 50 mg tablet 150 mg PO QHS 30 Days Qty: 90 budesonide 1 mg/2 mL suspension for nebulization 1 mg inhalation BID Qty: 60 6RF nitroglycerin 0.4 mg tablet, sublingual 0.4 mg SUBLINGUAL Q5M PRN (Reason: Chest Pain) Qty: 25 3RF Rx Instructions: Place one tab under tongue every 5 minutes x 3 doses as needed omeprazole 20 MG capsule 20 mg PO DAILY albuterol sulfate 1 PUFF inhaler 1 puff INHALATION Q6H PRN (Reason: Sob &/Or Wheezing) (DME) nebulizer and compressor Device See Rx Instructions .Route Qty: 1 0RF Rx Instructions: As directed prazosin 2 mg capsule 2 mg PO QHS sertraline 100 mg tablet 150 mg PO DAILY ipratropium-albuterol 0.5 mg-3 mg(2.5 mg base)/3 mL solution for nebulization 3 ml INHALATION Q4H PRN (Reason: shortness of breath or wheezing) Qty: 180 3RF metoprolol succinate 25 mg tablet extended release 24 hr 12.5 mg PO DAILY Qty: 45 3RF furosemide [Lasix] 20 mg tablet 20 mg PO BID Qty: 90 3RF Referrals / Follow Up: Sen Odom MD [Primary Care Provider] - Within 2 Weeks Disposition Disposition (needs filled in before D/C Order can be placed): Home, Self Care Charges/Coding Visit Charges Inpatient E&M: 29753 Disch Hosp
== END 2025-06-14 18:33 | disposition home or self-care (01) ==
LOC: ED 13:56 → PCU 17:22
PROVIDERS: Emergency Provider Surgery; PCP Family Medicine; Visit Provider Internal Medicine
DX: R07.89 Other chest pain (principal); J44.9 Chronic obstructive pulmonary disease, unspecified; Z79.51 Long term (current) use of inhaled steroids; E78.00 Pure hypercholesterolemia, unspecified; Z90.710 Acquired absence of both cervix and uterus; F17.210 Nicotine dependence, cigarettes, uncomplicated; Z95.5 Presence of coronary angioplasty implant and graft; Z79.899 Other long term (current) drug therapy; I25.10 Atherosclerotic heart disease of native coronary artery without angina pectoris; Z80.1 Family history of malignant neoplasm of trachea, bronchus and lung; I25.2 Old myocardial infarction; Z85.118 Personal history of other malignant neoplasm of bronchus and lung; G47.33 Obstructive sleep apnea (adult) (pediatric); Z90.49 Acquired absence of other specified parts of digestive tract; D50.9 Iron deficiency anemia, unspecified; I10 Essential (primary) hypertension; F32.A Depression, unspecified; R79.89 Other specified abnormal findings of blood chemistry; R06.02 Shortness of breath; R05.9 Cough, unspecified
CPT/HCPCS: 36415; 71046; 78452; 80048; 80061; 82274; 83880; 84484; 85025; 85379; 85610; 85730; 93005; 93017; 94640; 99221; 99285; A9500; A4216; G0378; J2785

== ENCOUNTER → 2025-06-21 | Outpatient (CLI) | payer MEDICARE, SELFPAY ==
[2021-10-20 08:51] VITALS: BMI 26.6
--- NOTE | 2025-06-21 08:01 | US_ITS ---
PROCEDURE: ABD LIMITED W/ ELASTOGRAPHY 06/21/2025 REASON FOR EXAM: LIVER DISEASE TECHNIQUE: ABD LIMITED W/ ELASTOGRAPHY COMPARISON: None FINDINGS: The liver measures 12.9 cm. The liver shows increased echogenicity with coarse echotexture and nodular margin. There is no visible intrahepatic biliary dilation. Portal color flow is hepatopetal The gallbladder is absent. Visualized portion of the pancreas is unremarkable. The right kidney measures 9.5 cm and shows no mass or hydronephrosis. The common bile duct measures 4.1 mm. Elastography: Site a KPA = 9.2, F2-F3 Site B KPA = 12.2, L3-4 Site C KPA = 10.5, F2-F3 Average KPA = 10.63, 1.87 m/sec, F3 US/ABD Limited w/ Elastography IMPRESSION: Echogenic consistent with fatty infiltration or liver disease, with a nodular m argin. Elastography = F3 Metavir score, moderate to severe fibrosis range. Reading Location: [facility]
== END | disposition home or self-care (01) ==
LOC: US 07:59
PROVIDERS: PCP Family Medicine; Referring Provider Family Medicine; Visit Provider Family Medicine
DX: K76.89 Other specified diseases of liver (principal)
CPT/HCPCS: 76705; 76981

== ENCOUNTER → 2025-06-25 | Outpatient (CLI) | payer MEDICARE, SELFPAY ==
[2021-10-20 08:51] VITALS: BMI 26.6
[2025-06-25 18:17] LABS: Hematocrit 30.0 % (37-47); Hemoglobin 9.2 g/dL (12.0-15.0); Immature Granulocytes Count 0.020 X10^3/uL (0.0-0.0); Immature Platelet Fraction 4.2 % (1.0-7.9); Immature Reticulocyte Fraction 23.40 % (3.00-15.90); Mean Corp Hgb Conc 30.7 g/dL (32-36); Mean Corpuscular Volume 82.0 fL (81-99); Mean Platelet Vol. 11.0 fl (6.2-12.0); NRBC Flagged by Analyzer 0 % (0-5); Platelet Count 255 K/mm3 (150-450); RBC Distribution Width CV 15.9 % (11.6-14.6); RBC Distribution Width SD 48.0 fl (35.1-43.9); Red Blood Count 3.66 M/mm3 (4.2-5.4); Reticulocyte Count 1.99 % (0.5-1.5); White Blood Count 7.5 K/mm3 (4.4-11.0)
[2025-06-25 19:30] LABS: AST(SGOT) 19 U/L (<=31); Alanine Aminotransfer ALT/SGPT 19 U/L (<=34); Albumin, Serum 4.2 g/dL (3.4-4.8); Alkaline Phosphatase 86 U/L (35-104); Bilirubin, Direct 0.13 mg/dL (0.00-0.30); Ferritin 29 ng/mL (22-378); Globulin 3.3 g/dL (2.2-4.2); Iron 23 ug/dL (50-170)
[2025-06-27 04:07] LABS: GGTP 51 IU/L (0-60)
== END | disposition home or self-care (01) ==
LOC: MFPLAB 16:55
PROVIDERS: PCP Family Medicine; Referring Provider Family Medicine; Visit Provider Family Medicine
DX: K76.89 Other specified diseases of liver (principal); D64.9 Anemia, unspecified
CPT/HCPCS: 36415; 80076; 82728; 82977; 83540; 85025; 85045

== ENCOUNTER 2025-07-07 16:31 | Observation (INO) | payer MEDICARE, SELFPAY ==
[2021-10-20 08:51] VITALS: BMI 26.6
[2025-07-07] VITALS (18 sets, daily range): BP systolic 119–140; BP diastolic 68–99; PULSE 88–106; RESP 9–25; TEMP 36.2–37.8; O2SAT 95–100; BMI 27.1
--- NOTE | 2025-07-07 16:39 | EKG12_ITS ---
Test Reason : Blood Pressure : */* mmHG Vent. Rate : 114 BPM Atrial Rate : 114 BPM P-R Int : 282 ms QRS Dur : 92 ms QT Int : 352 ms P-R-T Axes : * 19 56 degrees QTcB Int : 485 ms Abnormal ECG sinus tach with pac's and pvc's Confirmed by Con Reina ([id number]), editorial cartoonist BAR GUERRA ([id number]) on 07/09/2025 10:37:19 AM Referred By: Confirmed By: Con Reina
--- NOTE | 2025-07-07 16:47 | ED.VIS.DYS ---
HPI History of Present Illness Chief Complaint: Shortness of Breath Informant: patient Onset/Context/Timing Onset: Days Context: gradual Timing: Continuous Current Severity: Mild Maximum Severity: Mild Worsened by: Exertion and Coughing Relieved by: Oxygen Associated Symptoms cough Chest Pain: Positive for None Narrative Narrative: 70-year-old female with extensive past medical history of DE, 7 cardiac stents, triple bypass, cirrhosis, lung cancer, COPD and prior GI bleed with anemia. Patient states she has been intermittently short of breath for months but more so over the last 3 days. She has oxygen that she uses at night 2 L. She denies any recent GI bleed but has had a history of GI bleed. She is not on any blood thinners. She has been transfused in the past. She denies any history of DVT or PE in the past. She has had a cough. No fever. No chest pain. Denies any leg pain or swelling. PE Risk Factors: Positive for Cancer and Recent immobilization; Negative for OCP + Smoking + > 35, Prior DVT or PE, Recent surgery or Recent travel Prior similar symptoms: Yes Recent Illness/Hospitalization: Yes PFSH PFSH Medical History Osteoporosis Cirrhosis Myocardial infarct Coronary artery disease Wears glasses Loose, teeth Cancer Depression Bladder disease History of steroid therapy Arthritis High cholesterol Restless legs History of GI bleed On home oxygen therapy Smoker Sleep apnea History of echocardiogram History of stress test Cardiology follow-up encounter GERD (gastroesophageal reflux disease) Lung cancer Anxiety Atherosclerotic heart disease of [place] coronary artery with unstable angina pectoris Chest pain Congestive heart failure History of COPD Anemia Angina of effort Myocardial infarction, silent Adenocarcinoma of lung, stage 1 Lung cancer Melanoma Pure hypercholesterolemia Worsening angina Chest pain, unspecified HOWARD (obstructive sleep apnea) Osteoarthritis DDD (degenerative disc disease) Premature ventricular contraction Pericardial effusion Atherosclerotic heart disease of [place] coronary artery without angina pectoris Nonrheumatic mitral (valve) prolapse Tobacco abuse Essential hypertension Home Medications ?Medication ?Instructions ?Recorded ?Last Taken ?Type omeprazole 20 mg capsule,delayed 20 mg PO DAILY acid reflux 02/04/16 12/27/24 History release albuterol sulfate 90 mcg/actuation 1 puff inhalation Q6H PRN Sob &/Or 07/28/20 06/14/22 History aerosol inhaler Wheezing ipratropium 0.5 mg-albuterol 3 mg 3 ml inhalation Q4H PRN shortness 12/29/20 06/08/22 Rx (2.5 mg base)/3 mL nebulization of breath or wheezing #180 mL soln nebulizer and compressor #1 ea 06/11/22 Unknown Rx primidone 50 mg tablet 150 mg PO QHS seizures 30 days #90 01/10/24 12/27/24 History tabs prazosin 2 mg capsule 2 mg PO QHS blood pressure 01/12/24 12/27/24 History budesonide 1 mg/2 mL suspension 1 mg (2 mL) inhalation BID 02/03/24 Unknown Rx for nebulization BREATHING #60 mL nitroglycerin 0.4 mg sublingual 0.4 mg sublingual Q5M PRN Chest 02/08/24 Unknown Rx tablet Pain #25 tabs metoprolol succinate 25 mg 12.5 mg (1/2 x 25 mg) PO DAILY 02/13/24 12/27/24 Rx tablet,extended release 24 hr blood pressure #45 TABLETS sertraline 100 mg tablet 150 mg PO DAILY mood 10/16/24 12/27/24 History furosemide 20 mg tablet (Lasix) 20 mg PO BID diuretic #90 tabs 04/02/25 Unknown Rx isosorbide mononitrate 30 mg 30 mg PO DAILY #30 tabs 06/14/25 Unknown Rx tablet,extended release 24 hr Allergy/AdvReac Type Severity Reaction Status Date / Time Iodinated Contrast Media Allergy Hives Verified 07/07/25 16:36 (Iodinated Contrast Media - IV Dye) mesalamine (From Asacol) Allergy GASTRIC Verified 07/07/25 16:36 HEMORRHAGE tetracycline (Tetracycline) Allergy Hives Verified 07/07/25 16:36 pravastatin AdvReac Intermediate Upset Verified 07/07/25 16:36 Stomach atorvastatin (From Lipitor) AdvReac myalgia Verified 07/07/25 16:36 Family History Father Hypertension Colon cancer Alcoholism Mother Cancer LUNG CANCER/ SMOKER Father , MELANOMA No problems noted. Surgical History History of coronary artery stent placement History of cardiac catheterization History of cervical spinal surgery S/P partial lobectomy of lung interstim placement (~08/05/20) Presence of coronary angioplasty implant and graft (~03/12/18) History of cataract surgery History of abdominal surgery History of total hysterectomy History of cholecystectomy History of bowel resection Hx of appendectomy Presence of stent in coronary artery (~06/15/22) Aortocoronary bypass status (~05/12/04) Postsurgical percutaneous transluminal coronary angioplasty (PTCA) status (~03/12/18) Social History adopted: No housing: house number of children: 1 current occupational status: retired current occupational exposures/hazards: No Smoking Status: Current every day smoker tobacco type: cigarettes Tobacco: How many years used: 50 how long ago did patient quit smokin weeks ago alcohol intake: never substance use type: does not use caffeine: Yes Type: carbonated beverages Number of servings: 2 ROS ROS ED ROS Narrative Shortness of breath. Wheezing. No chest pain. Cough. No hemoptysis. No leg swelling. Constitutional Constitutional ED: Denies chills or fever(s) Eyes Eyes: Denies blurry vision ENT ENT ED: Denies ear pain Cardiovascular Cardiovascular: Denies chest pain Respiratory/Chest Respiratory/Chest: Reports cough, dyspnea and dyspnea on exertion Gastrointestinal Gastrointestinal: Denies abdominal pain or melena Genitourinary Genitourinary ED: Denies dysuria or hematuria Musculoskeletal Musculoskeletal: Denies arthralgias Integumentary Denies abscess Neurologic Neurologic: Denies headache(s) Psychiatric Psychiatric: Denies anxiety Endocrine Endocrinology: Denies cold intolerance Hematologic/Lymphatic Hematologic/Lymphatic: Denies easy bleeding, easy bruising or lymphadenopathy Allergic/Immunologic Allergic/Immunologic ED: Denies mouth swelling, tongue swelling or urticaria EXAM Physical Exam Narrative Exam Narrative: 70-year-old female sitting upright in bed. Pulse ox is 100% on room air vital signs are stable she is tachycardic around 110. But she is not distressed. Daughter is at bedside. H EENT exam pupils round react light. Moist mucous membranes. Neck nontender no JVD. No lymphadenopathy. Lungs coarse breath sounds. Dry cough. Few scattered expiratory wheezes. No rales or rhonchi. Heart tachycardic 110 no murmur. Chest wall ribs nontender. Prior sternotomy well-healed. Abdomen soft, nontender, nondistended, normal bowel sounds without peritoneal signs. No obstruction. Moving all 4 extremities. Normal strength. Normal dorsi plantarflexion. Calves are nontender without edema or cords. Back nontender. Neurologically she is awake alert. Answering questions following commands. Const Vital Signs: 07/07/25 16:32 07/07/25 16:42 07/07/25 16:50 Temperature 97.9 F Temperature Source Temporal Pulse Rate 96 Respiratory Rate 22 H Blood Pressure 124/98 H Blood Pressure Mean 106 Pulse Ox 100 Oxygen Delivery Method Room Air 07/07/25 17:12 Temperature Temperature Source Pulse Rate 91 Respiratory Rate 24 H Blood Pressure Blood Pressure Mean Pulse Ox 98 Oxygen Delivery Method Positive well nourished and well developed; Negative for cachectic, contractures or unkempt General Appearance ED: well developed and NAD; Negative for unkempt, cachectic or contractures Nutritional Appearance: Negative for cachectic HEENT Reports moist mucous membranes atraumatic Eyes PERRL and EOMs intact bilaterally Neck no lymphadenopathy, supple, no meningeal signs and no JVD Resp normal respiratory effort and No clear to auscultation bilaterally Resp Narrative: No hemoptysis. No leg swelling. No fever. Coarse breath sounds bilaterally. Few scattered expiratory wheezes. Auscultation: wheezes Cardio regular rhythm, S1 normal heart sound, S2 normal heart sound and no murmurs; Negative for regular rate Rate: tachycardic GI non-tender, non-distended and no masses Auscultation: normoactive bowel sounds Palpation: soft; Negative for tender, guarding or rebound tenderness present Back/Spine no CVA tenderness and normal to inspection Extremity normal to inspection General Extremety ED: Negative for edema or tenderness General Extremity: Negative for edema Neuro oriented x3 and CN's II-XII intact bilaterally Sensorium / Orientation: alert, oriented to person, oriented to place and oriented to time Motor Exam: strength 5/5 throughout Psych mental status grossly normal Appearance: Negative for unkempt Thought Process: normal thought process Skin no wounds and skin turgor normal General Skin Exam: Negative for jaundice Lesions: no lesions Rashes: no rashes MDM MDM MDM Narrative Medical decision making narrative: 70-year-old female short of breath with a history of COPD, lung cancer, anemia and prior DE [id number] cardiopulmonary workup. Differential would include anemia, COPD flare, pneumonia, CHF, effusions, blood clot excetra. Should be treated with DuoNeb and albuterol aerosols and 125 Solu-Medrol. Repeat exam around 5:19 PM patient doing well. CTA is ordered. Lab Data Attestation: I reviewed the patient's lab results. Lab results narrative: CBC shows a white count of 6.6 H&H of 7.8 and 25.8. Most recent hemoglobin was around 9. Platelets 227. Electrolytes show gap of 14. Normal BUN and creatinine 11 and 0.7. Glucose 186. Blood type a positive. D-dimer is elevated at 0.99. Chest x-ray shows borderline cardiomegaly. Right-sided pleural-based lung density which she has had before on prior chest x-rays. Labs: Laboratory Results - last 24 hr 07/07/25 16:43 WBC 6.6 RBC 3.15 L Hgb 7.8 L Hct 25.8 L MCV 81.9 MCH 24.8 L MCHC 30.2 L RDW Std Deviation 50.4 H RDW Coeff of Kit 17.5 H Plt Count 227 MPV 10.6 Immature Gran % (Auto) 0.300 Neut % (Auto) 70.4 H Lymph % (Auto) 17.9 L [place] % (Auto) 9.9 Eos % (Auto) 0.9 Baso % (Auto) 0.6 Absolute Neuts (auto) 4.6 Absolute Lymphs (auto) 1.18 Nucleated RBC % 0 D-Dimer Quant (PE/DVT) 0.99 H* Sodium 134 Potassium 3.9 Chloride 99 Carbon Dioxide 21.2 Anion Gap 14 BUN 11 Creatinine 0.78 Est GFR (MDRD) Non-Af 83 BUN/Creatinine Ratio 13.8 Glucose 186 H Calcium 8.7 Troponin T High Sens 54 H* D Blood Type A POSITIVE Radiography Chest X-Ray - ED: 2 View, Read by ED Physician, Heart, Lungs, Mediastinum, Bony Structures, No Acute Disease, Chronic Changes and - (Right-sided midline lateral pleural-based density seen on prior films.) Diagnostic Testing: Chest x-ray, 2 views, AP lateral, interpreted by myself shows borderline cardiomegaly. Right-sided pleural lung based density has been seen on prior films. No obvious pneumonia. No effusion. No pneumothorax. Rhythm Strip Rhythm Strip: Sinus Tach Rate: 114 Ectopy: None EKG Initial EKG: Attestation: I personally reviewed and interpreted this EKG as follows: Interpretation: No Acute Injury Pattern and Sinus Tachycardia Comments: sinus tachycardia rate 114. No acute signs of DE or ischemia. Discharge Plan Triage Chief Complaint: Shortness of Breath ED Provider: Avila Galicia Dx/Rx/DC Orders Prescriptions: No Action primidone 50 mg tablet 150 mg PO QHS 30 Days Qty: 90 budesonide 1 mg/2 mL suspension for nebulization 1 mg inhalation BID Qty: 60 6RF nitroglycerin 0.4 mg tablet, sublingual 0.4 mg SUBLINGUAL Q5M PRN (Reason: Chest Pain) Qty: 25 3RF Rx Instructions: Place one tab under tongue every 5 minutes x 3 doses as needed omeprazole 20 MG capsule 20 mg PO DAILY albuterol sulfate 1 PUFF inhaler 1 puff INHALATION Q6H PRN (Reason: Sob &/Or Wheezing) (DME) nebulizer and compressor Device See Rx Instructions .Route Qty: 1 0RF Rx Instructions: As directed prazosin 2 mg capsule 2 mg PO QHS sertraline 100 mg tablet 150 mg PO DAILY isosorbide mononitrate 30 mg tablet extended release 24 hr 30 mg PO DAILY Qty: 30 0RF ipratropium-albuterol 0.5 mg-3 mg(2.5 mg base)/3 mL solution for nebulization 3 ml INHALATION Q4H PRN (Reason: shortness of breath or wheezing) Qty: 180 3RF metoprolol succinate 25 mg tablet extended release 24 hr 12.5 mg PO DAILY Qty: 45 3RF furosemide [Lasix] 20 mg tablet 20 mg PO BID Qty: 90 3RF Primary Care Provider: Sen Odom Referrals: Sen Odom MD [Primary Care Provider] - Print Language: Vietnamese
[2025-07-07] MEDS: Albuterol 2.5 MG/3 ML VIAL.NEB. INHALATION (16:50)
[2025-07-07 16:54] LABS: Hematocrit 25.8 % (37-47); Hemoglobin 7.8 g/dL (12.0-15.0); Immature Granulocytes Count 0.020 X10^3/uL (0.0-0.0); Mean Corp Hgb Conc 30.2 g/dL (32-36); Mean Corpuscular Volume 81.9 fL (81-99); Mean Platelet Vol. 10.6 fl (6.2-12.0); NRBC Flagged by Analyzer 0 % (0-5); Platelet Count 227 K/mm3 (150-450); RBC Distribution Width CV 17.5 % (11.6-14.6); RBC Distribution Width SD 50.4 fl (35.1-43.9); Red Blood Count 3.15 M/mm3 (4.2-5.4); White Blood Count 6.6 K/mm3 (4.4-11.0)
--- OUTSIDE RECORDS SUMMARY | 2025-07-07 17:04 | XMS RPT_ITS | CCD ---
Author Organization [facility] Care Team Providers Care Boiler Reliner Name Role Phone REFERRING, PIPPA PAYAN JEFF Unavailable Unavailable RADHA ODOM Unavailable Unavailable ARLIN CRUZ Unavailable Unavailable RADHA ODOM Unavailable Unavailable HANNAH HERNANDES Attending Unavailable RADHA MAHAN Attending Unava ilable Radha Odom Primary Care Provider Radha Odom Primary Care Provider Dr. Phani Odom Primary Care Provider Dr. Phani Odom Referring Provider Dr. Honorio Rhodes Attending Provider Dr. Stephon Castro Attending Provider Dr. Stephon Castro Referring Provider Dr. Phani Odom Primary Care Provider [phone] Dr. Honorio Rhodes Attending Provider [phone] Jose CUSTOM FURRIER, CUSTOM FURRIER-C Tracey Attending Provider Jose CUSTOM FURRIER, CUSTOM FURRIER-C Tracey Referring Provider Dr. Phani Odom Referring Provider Dr. Avila Galicia Emergency Provider Dr. Diego Nichole Admit Provider Dr. Diego Nichole Other Provider Dr. Stephon Castro Attending Provider Dr. Stephon Castro Other Provider MT Gonzalez Attending Provider Unavail able Dr. Tanner Beasley Attending Provider Dr. Diego Nichole Attending Provider Dr. Tita Brandon Emergency Provider Dr. Veronique Moulton Admit Provider Dr. Veronique Moulton Attending Provider Dr. Veronique Moulton Other Provider Dr. Rui Garcia Other Provider Dr. Philipp Akins Attending Provider Unavailable Dr. Philipp Akins Other Provider Unavailable Dr. Phani Odom Primary Care Provider Dr. Elizabeth Worthy Attending Provider Dr. Philipp Akins Referring Provider Unavailable Dr. Larry Burnham Attending Provider Elva CUSTOM FURRIER, CUSTOM FURRIER-C Hannah Obrien Attending Provider Dr. Phani Odom Primary Care Provider Jose CUSTOM FURRIER, CUSTOM FURRIER-C Tracey Attending Provider Dr. Honorio Rhodes Attending Provider [phone] Jose CUSTOM FURRIER, CUSTOM FURRIER-C Tracey Referring Provider Jose CUSTOM FURRIER, CUSTOM FURRIER-C Tracey Other Provider Dr. Rui Garcia Attending Provider Radha Odom B Primary Care Provider Shawnee Corona RN Unavailable Unavailable Radha Odom Referring Unavailable Ilene, Radha Primary Care Unavailable Elva CUSTOM FURRIER, Hannah Obrien Attending Unavailable Ilene, Radha Primary Care Unavailable Ilene, Radha Referring Unavailable Nivia Moore Attending Unavailable Jevon Bustillo Referring Unavailable Danny Houser Attending Unavailable Ilene, Christjos Primary Care Unavailable Ranuvaldo, Christjareter Referring Unavailable Ranuvaldo, Christopher Primary Care Unavailable Friend, Tanner Consulting Unavailable Friend, Tanner Attending Unavailable Nivia Moore Attending Unavailable OscarBhargaviNivia Referring Unavailable Ranwinger, Christopher [facility] Ranwinger, Christjareter Attending Unavailable Ranwinger, Christopher Referring Unavailable White, Veronique L Admitting Unavailable White, Veronique L Consulting Unavailable White, Veronique L Attending Unavailable Ranwinger, Christopher Primary Care Unavailable Jopperi, Jevon Attending Unavailable Jopperi, Jevon Consulting Unavailable Larry Burnham Attending Unavailable [facility]available Ranwinger, Christopher Referring Unavailable [facility]winger[facility] Unavailable Nivia Moore Attending Unavailable Honorio Rhodes Attending Unavailable Ranwinger, Christopher Referring Unavailable [facility]winger, [facility] Primary [facility] Unavailable Ranwinger, Christopher Referring Unavailable Nivia Moore Attending Unavailable [facility] Primary Care Unavailable Cristina Giraldo Attending Unavailable [facility] Primary Care Unavailable Ranwinger, Christopher Referring Unavailable Ranwinger, [facility] Primary Care Unavailable Elva CRUZ, Hannah Obrien Attending Unavailable Bhargavi Moorefer Referring Unavailable Nivia Moore Attending Unavailable Ranwinger, [facility] Primary Care Unavailable Honorio Rhodes Attending Unavailable Honorio Rhodes Referring Unavailable Ranwinger, [facility] Primary Care Unavailable Ranwinger, Christopher Referring Unavailable [facility] Primary Care Unavailable Ranwinger, Christopher Attending Unavailable Jopperi, Jevon Admitting Unavailable Ranwinger, Christopher Primary Care Unavailable Diego Nichole Attending Unavailable Jopperi, Jevon Consulting Unavailable Diego Nichole Consulting Unavailable Danny Houser Attending Unavailable Jopperi, Jevon Attending Unavailable Ranney, Christopher Primary Care Unavailable Jopperi, Jevon Attending Unavailable White, Veronique L Admitting Unavailable White, Veronique L Consulting Unavailable Ranwinger, Christopher Primary Care Unavailable Ranney, Christopher Referring Un[facility] Unavailable Tanner Beasley Attending Unavailable [facility] Unavailable Hannah Stevenson NP Attending Unavailable Hannah Stevenson NP Referring Unavailable Jopperi, Jevon Admitting Unavailable Ranney, Christopher Primary Care Unavailable Diego Nichole Attending Unavailable Jopperi, Jevon Consulting Unavailable Ranney, Christopher Primary Care Unavailable Ranney, Christopher Attending Unavailable Ranney, Christopher Referring Unavailable Radha Odom Primary Care Unavailable Radha Odom Attending Unavailable Radha Odom Referring Unavailable Radha Odom Primary Care Unavailable Nivia Moore Referring Unavailable Nivia Moore Attending Unavailable Allergies Allergy Classification Reported Allergen(s) Allergy Type Date of Onset Reaction(s) Facility (1 source) Contrast media; Translations: [CONTRAST DYE] Propensity to adverse reactions to drug (disorder) 7 [facility] Repository (1 source) Naproxen; Translations: [NAPROXEN] Drug Allergy 8 [facility] Repository (1 source) Tetracyclines; Translations: [TETRACYCLINES] Propensity to adverse reactions to drug (disorder) 7 [facility] Repository (2 sources) atorvastatin Drug Allergy 1 Other (See Comments) [facility] Work Phone: (13 sources) Pravastatin Drug Allergy 1 Other (See Comments) [facility] Work Phone: (2 sources) strawberry allergenic extract Drug Allergy 1 Hives [facility] Work Phone: (2 sources) Iodides Propensity to adverse reactions to drug 1 [facility] Work Phone: (2 sources) Tetracyclines & Related Propensity to adverse reactions to drug 1 Hives [facility] Work Phone: (11 sources) atorvastatin Drug Allergy 2 myalgia [facility] (11 sources) Tetracycline Drug Allergy 2 [facility] (12 sources) Iodinated Contrast Media; Translations: [Iodinated Contrast Media] Allergy to substance 2 Other, [facility] (1 source) atorvastatin Drug Allergy 5 [facility] Repository (1 source) mesalamine Drug Allergy 5 [facility] Repository (1 source) Pravastatin Drug Allergy 5 [facility] Repository (1 source) Tetracycline Drug Allergy 5 [facility] Repository Medications Current Medications Medication Drug Class(es) Dates Sig (Normalized) Sig (Original) acetaminophen 500 mg oral tablet (2 sources) Start: 01-28-2021 End: 01-28-2021 acetaminophen (TYLENOL) tablet 1,000 mg acetaminophen 325 mg / HYDROcodone bitartrate 5 mg oral tablet (2 sources) Opioid Agonist Start: 06-09-2023 take 1 tablet by mouth every six hours as needed Hydrocodone-Acetami nophen Active 1 TABLET PO EVERY 6 HOURS NEEDED 10 3 June 09, 2023 acetaminophen 325 mg / oxyCODONE hydrochloride 5 mg oral tablet (20 sources) Opioid Agonist Start: 01-28-2021 End: 02-04-2021 take 1 tablet by mouth every six hours as needed for pain, then take 1 tablet by mouth as needed for pain oxyCODONE-acetamino phen (PERCOCET) 5-325 MG per tablet Indications: Right upper lobe pulmonary nodule Take 1 tablet by mouth every 6 hours as needed for Pain for up to 7 days. Intended supply: 7 days. Take lowest dose possible to manage pain 28 tablet 0 01/28/2021 02/04/2021 Active Start: 03-20-2019 End: 03-27-2019 take 1 tablet by mouth every six hours as needed Oxycodone-Acetaminophen Discontinued 1 - 2 TABLET PO EVERY 6 HOURS NEEDED 30 7 March 20, 2019 12:00am March 27, 2019 12:06am Start: 10-01-2018 End: 12-26-2018 take 1 tablet by mouth every eight hours as needed Oxycodone-Acetaminophen Discontinued 1 - 2 TABLET PO EVERY 8 HOURS NEEDED October 01, 2018 1:00am December 26, 2018 9:54am [id number] 200 actuat albuterol 0.09 mg/actuat metered dose inhaler (13 sources) beta2-Adrenergic Agonist Start: 07-28-2020 take 1 puff(s) by inhalation every six hours as needed Albuterol Sulfate Active 1 PUFF INHALATION EVERY 6 HOURS NEEDED July 28, 2020 12:00am take 1 puff(s) by in halation every six hours as needed ALBUTEROL IN Inhale into the lungs 1 puf f q6h INHALATION PRN 0 Active albuterol 0.833 mg/ml / ipratropium bromide 0.167 mg/ml inhalant solution (20 sources) Anticholinergic, beta2-Adrenergic Agonist Start: 01-28-2021 1 ampule, Inhalation, 4 TIMES DAILY, First dose on Tue01/28/21 at 2000 Start: 12-29-2020 End: 12-29-2020 take 1 mL by inhalation every four hours Ipratropium-Albuterol Active 3 ML INHALATION Q4H 180 December 29, 2020 9:19am amLODIPine 2.5 mg oral tablet (20 sources) Dihydropyridine Calcium Channel Ministerio Start: 06-16-2022 take 2.5 mg by mouth once daily Amlodipine Active 2.5 MG PO DAILY June 16, 2022 12:00am Start: 02-23-2021 End: 12-25-2021 take 1 tablet by mouth once daily Amlodipine (Norvasc) 2.5 mg tablet Discontinued 2.5 MG PO DAILY April 15, 2021 12:00am April 15, 2021 10:37am aspirin 81 mg chewable tablet (7 sources) Platelet Aggregation Inhibitor, Nonsteroidal Anti-inflammatory Drug Start: 06-16-2022 take 81 mg by mouth at breakfast Aspirin Active 81 MG PO WITH BREAKFAST June 16, 2022 12:00am budesonide 0.5 mg/ml inhalation suspension (20 sources) Corticosteroid Start: 12-26-2020 End: 06-14-2022 take 1 mg by inhalation twice daily Budesonide Active 1 MG INHALATION TWICE A DAY June 14, 2022 4:05pm busPIRone hydrochloride 15 mg oral tablet (20 sources) Start: 06-11-2022 End: 06-14-2022 take 15 mg by mouth three times daily Buspirone Active 15 MG PO THREE TIMES A DAY June 14, 2022 4:05pm Start: 06-20-2019 End: 06-11-2022 take 10 mg by mouth three times daily Buspirone Discontinued 10 MG PO THREE TIMES A DAY June 20, 2019 12:00am June 11, 2022 12:22pm clopidogrel 75 mg oral tablet (20 sources) [id number] Platelet Inhibitor Start: 06-16-2022 take 75 mg by mouth once daily Clopidogrel Active 75 MG PO DAILY June 16, 2022 12:00am Start: 01-27-2018 End: 06-11-2022 take 75 mg by mouth once daily Clopidogrel Discontinue d 75 MG PO DAILY November 26, 2020 3:30pm December 25, 2021 3:23pm Start: 06-15-2014 End: 04-16-2015 take 75 mg by mouth once daily Clopidogrel Discontinue d 75 MG PO DAILY June 15, 2014 12:00am April 16, 2015 10:52am docusate sodium 100 mg oral capsule (1 source) Start: 01-28-2021 take 100 mg by mouth twice daily 100 mg, Oral, 2 TIMES DAILY, First dose on Tue01/28/21 at 2100 Do not crush or break. doxepin hydrochloride 25 mg oral capsule (16 sources) Tricyclic Antidepressant Start: 03-16-2021 take 25 mg by mouth at bedtime Doxepin Active 25 MG PO AT BEDTIME March 16, 2021 1:24pm Start: 01-28-2021 take 25 mg by mouth once daily 25 mg, Oral, NIGHTLY, First dose on Tue01/28/21 at 2100 Start: 08-11-2020 End: 03-16-2021 take 10 mg by mouth at bedtime Doxepin Discontinued 10 MG PO AT BEDTIME August 11, 2020 12:00am March 16, 2021 1:26pm doxepin (SINEQUA N) 10 MG capsule Take 25 mg by mouth nightly 0 Active 0.4 ml enoxaparin sodium 100 mg/ml prefilled syringe (1 source) Low Molecular Weight Heparin Start: 01-29-2021 inject 40 mg by subcutaneous injection once daily 40 mg, Subcutaneous, DAILY, First dose on Luana 01/29/21 at 0900 ezetimibe 10 mg oral tablet (6 sources) Dietary Cholesterol Absorption Inhibitor Start: 06-30-2022 take 1 tablet by mouth once daily Ezetimibe (Zetia) 10 mg tablet Active 10 MG PO DAILY June 30, 2022 12:00am ferrous sulfate 325 mg delayed release oral tablet (17 sources) Start: 06-11-2022 End: 06-14-2022 take 325 mg by mouth twice daily Ferrous Sulfate Active 325 MG PO TWICE A DAY June 14, 2022 4:05pm furosemide 20 mg oral tablet (20 sources) Loop Diuretic Start: 06-16-2022 take 40 mg by mouth once daily Furosemide Active 40 MG PO DAILY 60 60 June 16, 2022 9:25am Start: 08-17-2019 End: 06-16-2022 take 20 mg by mouth once daily Furosemide Discontinued 20 MG PO DAILY June 14, 2022 4:05pm June 16, 2022 9:25am HYDROmorphone (DILAUDID) injection 0.25 mg (1 source) Start: 01-29-2021 HYDROmorphone (DILAUDID) injection 0.25 mg hydrOXYzine hydrochloride 50 mg oral tablet (17 sources) Antihistamine Start: 06-09-2022 End: 06-30-2022 take 100 mg by mouth three times daily Hydroxyzine Hcl Active 100 MG PO THREE TIMES A DAY June 30, 2022 2:02pm take 2 tablets by mouth once giovany ly hydrOXYzine (ATARAX) 50 MG tablet Take 50 mg by mouth nightly Two tablets 0 Active ibuprofen 200 mg oral tablet (1 source) Nonsteroidal Anti-inflammatory Drug Start: 01-30-2021 ibuprofen (ADVIL;MOTRIN) tablet 600 mg Nebulizer And Compressor (9 sources) Start: 06-11-2022 Nebulizer And Compressor Active 0 .Route 1 June 11, 2022 12:00am As directed omeprazole 20 mg delayed release oral capsule (20 sources) Proton Pump Inhibitor Start: 02-04-2016 take 20 mg by mouth once daily Omeprazole Active 20 MG PO DAILY February 04, 2016 12:00am Start: 06-15-2014 End: 04-21-2015 take 20 mg by mouth once daily Omeprazole Discontinued 20 MG PO DAILY June 15, 2014 12:00am April 21, 2015 10:49am ondansetron 4 mg oral tablet (12 sources) Serotonin-3 Receptor Antagonist Start: 04-08-2021 take 1 tablet by mouth every eight hours as needed for nausea Ondansetron Hcl (Zofran) 4 mg tablet Active 4 MG PO Q8H April 08, 2021 12:00am take 1 tab PO q 8hrs prn nausea Start: 01-28-2021 4 mg, Intraven ous, EVERY 6 HOURS PRN, Nausea, Vomiting, Starting Tue01/28/21 at 1938 oxyCODONE (1 source) Opioid Agonist Start: 01-29-2021 oxyCODONE (ROXICODONE) immediate release tablet 5 mg pantoprazole 40 mg delayed release oral tablet (12 sources) Proton Pump Inhibitor Start: 03-25-2021 take 40 mg by mouth once daily before breakfast 40 mg, Oral, DAILY BEFORE BREAKFAST, First dose on Tue01/29/21 at 0700 Do not crush or break. Substituted for Omeprazole (PRILOSEC). Start: 04-21-2015 End: 04-21-2015 take 40 mg by mouth twice daily Pantoprazole Discontinued 40 MG PO TWICE A DAY 60 April 21, 2015 12:00am April 21, 2015 1:25pm polyethylene glycol 3350 25214 mg powder for oral solution (2 sources) Osmotic Laxative Start: 01-28-2021 End: 02-27-2021 17 g, Oral, DAILY, First dose on Tue01/28/21 at 2000 potassium chloride 20 meq extended release oral tablet (20 sources) Start: 06-30-2022 take 40 mEq by mouth once daily Potassium Chloride Active 40 MEQ PO DAILY 60 June 30, 2022 12:00am Start: 06-11-2022 End: 06-30-2022 Potassium Chloride (Klor-Con M20) 20 mEq tablet,ER particles/crystals Discontinued 40 MEQ PO DAILY WITH MEALS June 14, 2022 4:05pm June 30, 2022 2:27pm prazosin 1 mg oral capsule (9 sources) alpha-Adrenergic Ministerio Start: 06-09-2022 take 1 capsule by mouth at bedtime Prazosin Active 1 CAP PO AT BEDTIME June 09, 2022 12:00am primidone 50 mg oral tablet (14 sources) Anti-epileptic Agent Start: 08-17-2018 take 100 mg by mouth at bedtime Primidone Active 100 MG PO AT BEDTIME August 17, 2018 12:00am take 2 tablets by mo [facility] once daily, then take 2 tablets by mouth once daily at bedtime primidone (MYSOLINE) 50 MG tablet Take 1 00 mg by mouth nightly 100 mg PO QHS 30 days 0 Active sertraline 100 mg oral tablet (20 sources) Serotonin Reuptake Inhibitor Start: 06-11-2022 End: 06-14-2022 take 150 mg by mouth once daily Sertraline Active 150 MG PO DAILY June 14, 2022 4:05pm Start: 01-28-2021 take 100 mg by mouth once daily 100 mg, Oral, DAILY, First dose on Tue01/28/21 at 1430 Start: 08-11-2020 End: 06-11-2022 take 100 mg by mouth once daily Sertraline Discontinued 100 MG PO DAILY August 11, 2020 12:00am June 11, 2022 12:22pm Start: 10-17-2019 End: 08-11-2020 take 25 mg by mouth once daily Sertraline Discontinued 25 MG PO DAILY October 17, 2019 1:00am August 11, 2020 10:28am 3 ml sodium chloride 9 mg/ml injection (2 sources) Start: 01-28-2021 10 mL, Intrave nous, EVERY 12 HOURS SCHEDULED (2 times per day), First dose on Tue01/28/21 at 2100 Start: 01-28-2021 take 10 mL intraveno us route once as needed 10 mL, Intravenous, PRN, Line Care, After every IV line use, Starting Tue01/28/21 at 1938 Completed/Discontinued Medications Medication Drug Class(es) Dates Sig (Normalized) Sig (Original) atorvastatin 40 mg oral tablet (20 sources) HMG-CoA Reductase Inhibitor Start: 03-14-2018 End: 05-22-2018 take 40 mg by mouth at bedtime Atorvastatin Discontinued 40 MG PO AT BEDTIME 90 May 17, 2018 4:15pm May 22, 2018 9:07am calcium chloride 0.0014 meq/ml / potassium chloride 0.004 meq/ml / sodium chloride 0.103 meq/ml / sodium lactate 0.028 meq/ml injectable solution (2 sources) Start: 01-28-2021 End: 01-29-2021 Intravenous, at 75 mL/hr, CONTINUOUS, Starting Tue01/28/21 at 2000 Start: 01-28-2021 End: 01-28-2021 lactated ringers infusion ceFAZolin 2000 mg injection (1 source) Cephalosporin Antibacterial Start: 01-28-2021 End: 01-29-2021 2,000 mg, Intravenous, EVERY 8 HOURS, 3 doses, First dose on Tue01/28/21 at 2000, Last dose on Tue01/29/21 at 1200 celecoxib 400 mg oral capsule (1 source) Nonsteroidal Anti-inflammatory Drug Start: 01-28-2021 End: 01-28-2021 celecoxib (CELEBREX) capsule 400 mg Start: 01-28-2021 End: 01-28-2021 celecoxib (CELEBREX) capsule 400 mg cephalexin 500 mg oral capsule (20 sources) Cephalosporin Antibacterial Start: 03-20-2019 End: 03-23-2019 take 500 mg by mouth every twelve hours Cephalexin Discontinued 500 MG PO EVERY 12 HOURS 6 3 March 20, 2019 12:00am March 23, 2019 12:07am Start: 12-12-2018 End: 12-15-2018 take 500 mg by mouth every twelve hours Cephalexin Discontinued 500 MG PO EVERY 12 HOURS 6 3 December 12, 2018 1:00am December 15, 2018 1:17am cholecalciferol 0.125 mg oral capsule (11 sources) Vitamin D Start: 03-12-2018 End: 08-17-2018 take 5000 [IU] by mouth once daily Cholecalciferol (Vitamin D3) Discontinued 5000 UNIT PO DAILY March 12, 2018 12:00am August 17, 2018 1:50pm clonazePAM 2 mg oral tablet (11 sources) Benzodiazepine Start: 03-12-2018 End: 08-17-2018 take 2 mg by mouth three times daily Clonazepam Discontinued 2 MG PO THREE TIMES A DAY March 12, 2018 12:00am August 17, 2018 1:49pm famotidine 20 mg oral tablet (1 source) Histamine-2 Receptor Antagonist Start: 01-28-2021 End: 01-28-2021 famotidine (PEPCID) tablet 20 mg Start: 01-28-2021 End: 01-28-2021 famotidine (PEPCID) tablet 2 0 mg 72 hr fentaNYL 0.075 mg/hr transdermal system (11 sources) Opioid Agonist Start: 02-04-2016 End: 05-17-2018 Fentanyl Discontinued 75 MCG TRANSDERM. Q72H February 04, 2016 12:00am May 17, 2018 3:24pm Kwdpgrwwcmt-Vmcoxdjdl-R ilanter (11 sources) Anticholinergic, Corticosteroid, beta2-Adrenergic Agonist Start: 11-06-2020 End: 12-26-2020 Udxvhxhiqkh-Fikwmilvm-M ilanter (Trelegy Ellipta) 100-62.5-25 mcg blister with device Discontinued 1 INH INHALATION DAILY 60 November 06, 2020 12:33pm December 26, 2020 3:00pm Start: 11-06-2020 End: 12-26-2020 Tswmiwwafif-Padumwhut-Hmisnz er (Trelegy Ellipta) 100-62.5-25 mcg blister with device Discontinued 1 INH INHALATION DAILY 60 November 06, 2020 1:00am December 26, 2020 3:00pm gabapentin 300 mg oral capsule (1 source) Anti-epileptic Agent Start: 01-28-2021 End: 01-28-2021 gabapentin (NEURONTIN) capsule 300 mg Start: 01-28-2021 End: 01-28-2021 gabapentin (NEURONTIN) capsu le 300 mg HYDROmorphone hydrochloride 2 mg oral tablet (20 sources) Opioid Agonist Start: 12-17-2018 End: 01-02-2019 take 2 mg by mouth three times daily Hydromorphone Discontinued 2 MG PO THREE TIMES A DAY 27 05December 26, 2018 9:55am January 02, 2019 1:09am HYDROmorphone (DILAUDID) 30 mg in sodium chloride 0.9 % 30 mL LACQUER COATER (1 source) Start: 01-28-2021 End: 01-29-2021 HYDROmorphone (DILAUDID) 30 mg in sodium chloride 0.9 % 30 mL LACQUER COATER 24 hr isosorbide mononitrate 30 mg extended release oral tablet (20 sources) Nitrate Vasodilator Start: 04-16-2019 End: 02-23-2021 take 30 mg by mouth once daily Isosorbide Mononitrate Discontinued 30 MG PO DAILY June 09, 2020 1:54pm February 23, 2021 11:56am lisinopril 5 mg oral tablet (20 sources) Angiotensin Converting Enzyme Inhibitor Start: 04-15-2021 End: 12-25-2021 take 5 mg by mouth once daily Lisinopril Discontinued 5 MG PO DAILY April 15, 2021 12:00am December 25, 2021 3:22pm Start: 02-23-2021 End: 03-16-2021 take 2.5 mg by mouth once daily Lisinopril Discontinued 2.5 MG PO DAILY February 23, 2021 12:08pm March 16, 2021 1:27pm Start: 07-18-2019 End: 07-18-2019 take 5 mg by mouth once daily Lisinopril Discontinued 5 MG PO DAILY July 18, 2019 1:03pm July 18, 2019 1:03pm Start: 07-18-2019 End: 02-23-2021 take 5 mg by mouth once daily Lisinopril Discontinued 5 MG PO DAILY July 18, 2019 1:24pm February 23, 2021 12:08pm Start: 03-14-2018 End: 07-18-2019 take 2.5 mg by mouth once daily Lisinopril Discontinued 2.5 MG PO DAILY March 14, 2018 12:00am July 18, 2019 1:03pm 1 ml LORazepam 2 mg/ml injection (2 sources) Benzodiazepine Start: 01-28-2021 End: 01-28-2021 LORazepam (ATIVAN) 2 MG/ML injection Start: 01-28-2021 End: 01-28-2021 LORazepam (ATIVAN) injection 0.5 mg 24 hr metoprolol succinate 25 mg extended release oral tablet (20 sources) beta-Adrenergic Ministerio Start: 04-16-2019 End: 02-10-2023 take 12.5 mg by mouth once daily Metoprolol Succinate Discontinued 12.5 MG PO DAILY November 26, 2020 3:30pm December 25, 2021 3:23pm Start: 10-02-2018 End: 04-16-2019 take 12.5 mg by mouth twice daily Metoprolol Tartrate Discontinued 12.5 MG PO TWICE A DAY April 13, 2019 2:15pm April 16, 2019 11:16am Start: 05-17-2018 End: 10-02-2018 Metoprolol Tartrate Disconti nued 25 MG PO TWICE A DAY May 17, 2018 12:00am October 02, 2018 12:56pm 1/2 tablet (i.e. 12.5 mg) PO BID Start: 02-04-2016 End: 05-17-2018 take 12.5 mg by mouth twice daily Metoprolol Tartrate Discontinued 12.5 MG PO TWICE A DAY December 22, 2017 10:46am March 12, 2018 5:41pm take 0.5 tablet by m outh once daily metoprolol succinate (TOPROL XL) 25 MG extended release tablet Take 12.5 mg by mouth daily Half tab 0 Active nitroglycerin 0.4 mg sublingual tablet (20 sources) Nitrate Vasodilator Start: 04-18-2017 End: 02-23-2021 Nitroglycerin Discontinued 0.4 MG SL Q5M August 17, 2018 1:57pm February 23, 2021 12:08pm Place one tab under tongue every 5 minutes x 3 doses as needed pravastatin sodium 20 mg oral tablet (11 sources) HMG-CoA Reductase Inhibitor Start: 05-30-2018 End: 08-17-2018 take 20 mg by mouth once daily Pravastatin Discontinued 20 MG PO daily May 30, 2018 12:00am August 17, 2018 1:57pm predniSONE 10 mg oral tablet (20 sources) Start: 11-16-2021 End: 12-25-2021 Prednisone Discontinued 10 MG PO DAILY November 16, 2021 1:00am December 25, 2021 3:20pm 4 tabs PO x 2 weeks, then 3 tabs PO x 1 week, then 2 tabs PO x1 week, then 1 tab PO x 1 week then stop Start: 11-26-2020 End: 12-26-2020 Prednisone Discontinued 10 M G PO daily November 26, 2020 1:00am December 26, 2020 3:01pm take 4 tabs for three days, then 3 tabs for three days, then 2 tabs for three days, then 1 tab for 3 days rosuvastatin calcium 5 mg oral tablet (11 sources) HMG-CoA Reductase Inhibitor Start: 08-17-2018 End: 10-02-2018 take 1 tablet by mouth once daily Rosuvastatin (Crestor) 5 mg tablet Discontinued 5 MG PO DAILY August 17, 2018 12:00am October 02, 2018 12:56pm sulfamethoxazole 800 mg / trimethoprim 160 mg oral tablet (11 sources) Dihydrofolate Reductase Inhibitor Antibacterial, Sulfonamide Antimicrobial Start: 12-26-2018 End: 12-29-2018 take 1 tablet by mouth twice daily Sulfamethoxazole- Trimethoprim Discontinued 1 TABLET PO TWICE A DAY 6 3 December 26, 2018 1:00am December 29, 2018 1:10am ticagrelor 90 mg oral tablet (11 sources) Start: 03-14-2018 End: 04-28-2018 take 90 mg by mouth twice daily Ticagrelor Discontinued 90 MG PO TWICE A DAY 180 March 14, 2018 12:00am April 28, 2018 12:01pm ubidecarenone 100 mg oral capsule (11 sources) Start: 03-12-2018 End: 05-17-2018 Coenzyme Q10 Discontinued 100 MG PO DAILY March 12, 2018 12:00am May 17, 2018 3:23pm Problems Active Problems Problem Classification Problem Date Documented Da te Episodic/Chronic Acute myocardial infarction (20 sources) Silent myocardial infarction; Translations: [Acute myocardial infarction, unspecified] Chronic Asthma (13 sources) Asthma; Translations: [Unspecified asthma, uncomplicated] Chronic Cancer of bronchus; lung (20 sources) Adenocarcinoma of lung, stage I; Translations: [Malignant neoplasm of unspecified part of unspecified bronchus or lung] Onset: 1 Chronic Cardiac dysrhythmias (20 sources) Ventricular premature beats; Translations: [Ventricular premature depolarization] Chronic Chronic obstructive pulmonary disease and bronchiectasis (10 sources) Chronic obstructive lung disease; Translations: [Chronic obstructive pulmonary disease, unspecified] Chronic Coronary atherosclerosis and other heart disease (20 sources) Coronary arteriosclerosis; Translations: [Atherosclerotic heart disease of [place] coronary artery without angina pectoris] Onset: 5 Chronic Deficiency and other anemia (9 sources) Anemia; Translations: [Anemia, unspecified] 06-09-2022 Episodic Deficiency and other anemia (9 sources) Microcytic anemia; Translations: [Iron deficiency anemia, unspecified] 06-10-2022 Episodic Disorders of lipid metabolism (17 sources) Pure hypercholesterolemia; Translations: [Pure hypercholesterolemia, unspecified] Chronic Essential hypertension (20 sources) Essential hypertension; Translations: [Essential (primary) hypertension] Chronic Gastrointestinal hemorrhage (11 sources) Gastrointestinal hemorrhage; Translations: [Gastrointestinal hemorrhage, unspecified] Episodic Genitourinary symptoms and ill-defined conditions (11 sources) Retention of urine; Translations: [Retention of urine, unspecified] 04-15-2019 Episodic Heart valve disorders (20 sources) Mitral valve prolapse; Translations: [Nonrheumatic mitral (valve) prolapse] Chronic Nonspecific chest pain (20 sources) Chest pain; Translations: [Chest pain, unspecified] Onset: 5 Episodic Other circulatory disease (11 sources) Transient hypotension; Translations: [Hypotension, unspecified] 04-15-2019 Episodic Other diseases of bladder and urethra (11 sources) Neurogenic bladder; Translations: [Neuromuscular dysfunction of bladder, unspecified] 04-15-2019 Chronic Other liver diseases (1 source) Other specified diseases of liver; Translations: [Other specified diseases of liver] Onset: 5 Chronic Other liver diseases (9 sources) Cardiac enzymes abnormal; Translations: [Abnormal levels of other serum enzymes] 06-19-2022 Episodic Other liver diseases (6 sources) Abnormal levels of other serum enzymes; Translations: [Other nonspecific abnormal serum enzyme levels] Episodic Other lower respiratory disease (9 sources) Lung mass; Translations: [Other nonspecific abnormal finding of lung field] Episodic Other lower respiratory disease (12 sources) Dyspnea; Translations: [Shortness of breath] 06-14-2022 Episodic Other lower respiratory disease (11 sources) Cough; Translations: [Cough] 04-07-2020 Episodic Other lower respiratory disease (8 sources) Multiple nodules of lung; Translations: [Other nonspecific abnormal finding of lung field] Episodic Other lower respiratory disease (11 sources) Rib pain; Translations: [Pleurodynia] 04-15-2021 Episodic Other lower respiratory disease (17 sources) Shortness of breath; Translations: [Shortness of breath] Episodic Other lower respiratory disease (9 sources) History of chronic obstructive airway disease; Translations: [Personal history of other diseases of the respiratory system] 06-19-2022 Episodic Other lower respiratory disease (14 sources) Dyspnea on exertion; Translations: [Shortness of breath] 06-14-2022 Episodic Other lower respiratory disease (3 sources) Personal history of other diseases of the respiratory system; Translations: [Personal history of other diseases of respiratory system] Episodic Other lower respiratory disease (6 sources) Other forms of dyspnea; Translations: [Other respiratory abnormalities] Onset: 5 Episodic Other nervous system disorders (1 source) Other chronic pain; Translations: [Other chronic pain] Onset: 8 Chronic Diya-; endo-; and myocarditis; cardiomyopathy (except that caused by tuberculosis or sexually transmitted disease) (11 sources) Pericardial effusion; Translations: [Pericardial effusion (noninflammatory)] 04-15-2019 Episodic Peripheral and visceral atherosclerosis (11 sources) Intermittent claudication; Translations: [Peripheral vascular disease, unspecified] 04-15-2019 Chronic Residual codes; unclassified (11 sources) Tobacco user; Translations: [Tobacco use] 04-15-2021 Episodic Spondylosis; intervertebral disc disorders; other back problems (14 sources) Lumbago with sciatica, left side; Translations: [Lumbago with sciatica, right side] Onset: 8 08-05-2020 Episodic Unclassified (1 source) Unknown / UNK(Unknown) Onset: 7 Unclassified (1 source) Patient encounter status; Translations: [Pre-op testing] Past or Other Problems Problem Classification Problem Date Documented Da te Episodic/Chronic Abdominal pain (3 sources) Abdominal pain; Translations: [Unspecified abdominal pain] Onset: 12-21-2024 06-09-2023 Episodic Coronary atherosclerosis and other heart disease (20 sources) Stented coronary artery; Translations: [Presence of coronary angioplasty implant and graft] Onset: 05-07-2004 Episodic Deficiency and other anemia (11 sources) Anemia, unspecified; Translations: [Anemia, unspecified] Onset: 11-14-2024 Episodic Deficiency and other anemia (8 sources) Iron deficiency anemia, unspecified; Translations: [Iron deficiency anemia, unspecified] Onset: 01-02-2025 Episodic Other gastrointestinal disorders (1 source) Diarrhea, unspecified; Translations: [Diarrhea, unspecified] Onset: 01-08-2025 Episodic Other lower respiratory disease (3 sources) Solitary pulmonary nodule; Translations: [Nodule of lung] Onset: 01-28-2021 01-28-2021 Episodic Other screening for suspected conditions (not mental disorders or infectious disease) (2 sources) Encounter for screening mammogram for malignant neoplasm of breast; Translations: [Other specified abnormal findings of blood chemistry] Onset: 10-22-2024 Episodic Residual codes; unclassified (1 source) Asymptomatic menopausal state; Translations: [Asymptomatic menopausal state] Onset: 01-31-2025 Episodic Unclassified (1 source) LUMBAR PAIN Onset: 05-05-2017 Results Test Name Value Interpretation Reference Range Facility L501.5101on 06-27-2025 GGTP 51 IU/L Normal 0-60 [facility] Comment on above: Order Comment: Order Date: 06/25/25Order Info: 2324-2 - GGTP Result Comment: Perf ormed at: - [facility] [address] [id number] [place] Operator: Handy Guerrero PhD, Phone: [phone] Performed By: #### L 366.5949, W717.0216, A975.3847, J816.6306 #### [facility] [place], [address] CBC W/Diff, Automatedon 06-07 Absolute Lymph 1.25 X10 3/uL Normal 0.83-4.51 [facility] Comment on above: Order Comment: Order Date: 06/25/25Order Info: 018- - CBCDOrder Info: 4679-7 - RETIC Performed By: #### L 503.6075, L100.0100, L503.6550, L503.6150 #### [facility] [address] [place], [address] Absolute Neut 5.4 X10 3/uL Normal 2.0-7.7 [facility] Comment on above: Order Comment: Order Date: 06/25/25Order Info: 183-11 - CBCDOrder Info: 4679-7 - RETIC Performed By: #### L 503.6075, L100.0100, L503.6550, L503.6150 #### [facility] [address] [place], [address] Basophils/100 WBC (Bld) 0.5 % Normal 0-1 [facility] Comment on above: Order Comment: Order Date: 06/25/25Order Info: 01802-05 - CBCDOrder Info: 4679-7 - RETIC Performed By: #### L 503.6075, L100.0100, L503.6550, L503.6150 #### [facility] [address] [place], [address] Eosinophils/100 WBC (Bld) 1.2 % Normal 0-5 [facility] Comment on above: Order Comment: Order Date: 06/25/25Order Info: 01802-05 - CBCDOrder Info: 4679-7 - RETIC Performed By: #### L 503.6075, L100.0100, L503.6550, L503.6150 #### [facility] [address] [place], [address] Erythrocyte distribution width (RBC) [Ratio] 15.9 % High 11.6-14.6 [facility] Comment on above: Order Comment: Order Date: 06/25/25Order Info: 0184-1 - CBCDOrder Info: 4679-7 - RETIC Performed By: #### L 503.6075, L100.0100, L503.6550, L503.6150 #### [facility] [address] [place], [address] Hematocrit (Bld) [Volume fraction] 30.0 % Low 37-47 [facility] Comment on above: Order Comment: Order Date: 06/25/25Order Info: 018- - CBCDOrder Info: 4679-7 - RETIC Performed By: #### L 503.6075, L100.0100, L503.6550, L503.6150 #### [facility] [address] [place], [address] Hemoglobin (Bld) [Mass/Vol] 9.2 g/dL Low 12.0-15.0 [facility] Comment on above: Order Comment: Order Date: 06/25/25Order Info: 018- - CBCDOrder Info: 4679-7 - RETIC Performed By: #### L 503.6075, L100.0100, L503.6550, L503.6150 #### [facility] [address] [place], [address] IG% 0.300 Normal 0.0-0.9 [facility] Comment on above: Order Comment: Order Date: 06/25/25Order Info: 0184-1 - CBCDOrder Info: 4679-7 - RETIC Result Comment: IG% - Immature Granulocytes (promyelocytes, myelocytes and metamyelocytes) > 1% indicates that a LEFT SHIFT is Present. Performed By: #### L 503.6075, L100.0100, L503.6550, L503.6150 #### [facility] [address] [place], [address] Lymphocytes/100 WBC (Bld) 16.8 % Low 19-41 [facility] Comment on above: Order Comment: Order Date: 06/25/25Order Info: 018- - CBCDOrder Info: 4679-7 - RETIC Performed By: #### L 503.6075, L100.0100, L503.6550, L503.6150 #### [facility] [address] [place], [address] MCH (RBC) [Entitic mass] 25.1 pg Low 27.0-32.0 [facility] Comment on above: Order Comment: Order Date: 06/25/25Order Info: 018- - CBCDOrder Info: 4679-7 - RETIC Performed By: #### L 503.6075, L100.0100, L503.6550, L503.6150 #### [facility] [address] [place], [address] MCHC (RBC) [Mass/Vol] 30.7 g/dL Low 32-36 [facility] Comment on above: Order Comment: Order Date: 06/25/25Order Info: 018- - CBCDOrder Info: 4679-7 - RETIC Performed By: #### L 503.6075, L100.0100, L503.6550, L503.6150 #### [facility] [address] [place], [address] MCV (RBC) [Entitic vol] 82.0 fL Normal 81-99 [facility] Comment on above: Order Comment: Order Date: 06/25/25Order Info: 018- - CBCDOrder Info: 4679-7 - RETIC Performed By: #### L 503.6075, L100.0100, L503.6550, L503.6150 #### [facility] [address] [place], [address] Monocytes/100 WBC (Bld) 9.3 % Normal 0-10 [facility] Comment on above: Order Comment: Order Date: 06/25/25Order Info: 0184- - CBCDOrder Info: 4679-7 - RETIC Performed By: #### L 503.6075, L100.0100, L503.6550, L503.6150 #### [facility] [address] [place], [address] Neutrophils/100 WBC (Bld) 71.9 % High 47-70 [facility] Comment on above: Order Comment: Order Date: 06/25/25Order Info: 018- - CBCDOrder Info: 4679-7 - RETIC Performed By: #### L 503.6075, L100.0100, L503.6550, L503.6150 #### [facility] [address] [place], [address] Nucleated RBC (Bld) [#/Vol] 0 10*3/uL Normal 0-5 [facility] Comment on above: Order Comment: Order Date: 06/25/25Order Info: 018- - CBCDOrder Info: 4679-7 - RETIC Performed By: #### L 503.6075, L100.0100, L503.6550, L503.6150 #### [facility] [address] [place], [address] Platelet mean volume (Bld) [Entitic vol] 11.0 fL Normal 6.2-12.0 [facility] Comment on above: Order Comment: Order Date: 06/25/25Order Info: 018- - CBCDOrder Info: 4679-7 - RETIC Performed By: #### L 503.6075, L100.0100, L503.6550, L503.6150 #### [facility] [address] [place], [address] Platelets (Bld) [#/Vol] 255 10*3/uL Normal 150-450 [facility] Comment on above: Order Comment: Order Date: 06/25/25Order Info: 018- - CBCDOrder Info: 4679-7 - RETIC Performed By: #### L 503.6075, L100.0100, L503.6550, L503.6150 #### [facility] [address] [place], [address] RBC (Bld) [#/Vol] 3.66 10*6/uL Low 4.2-5.4 [facility] Comment on above: Order Comment: Order Date: 06/25/25Order Info: 0184-1 - CBCDOrder Info: 4679-7 - RETIC Performed By: #### L 503.6075, L100.0100, L503.6550, L503.6150 #### [facility] [address] [place], [address] RDW SD 48.0 fl High 35.1-43.9 [facility] Comment on above: Order Comment: Order Date: 06/25/25Order Info: 0184-1 - CBCDOrder Info: 4679-7 - RETIC Performed By: #### L 503.6075, L100.0100, L503.6550, L503.6150 #### [facility] [address] [place], [address] WBC (Bld) [#/Vol] 7.5 10*3/uL Normal 4.4-11.0 [facility] Comment on above: Order Comment: Order Date: 06/25/25Order Info: 0184-1 - CBCDOrder Info: 4679-7 - RETIC Performed By: #### L 503.6075, L100.0100, L503.6550, L503.6150 #### [facility] [address] [place], [address] Ferritinon 06-25-2025 Ferritin [Mass/Vol] 29 ng/mL Normal 22-378 [facility] Comment on above: Order Comment: Order Date: 06/25/25Order Info: 0788-1 - LIVEROrder Info: 2498-4 - FEOrder Info: 2276- - ANU Performed By: #### L 503.6075, L100.0100, L503.6550, L503.6150 #### [facility] [address] [place], [address] Ironon 06-25-2025 Iron [Mass/Vol] 23 ug/dL Low 50-170 [facility] Comment on above: Order Comment: Order Date: 06/25/25Order Info: 07- - LIVEROrder Info: 2498-02 - FEOrder Info: 2276-02 - ANU Performed By: #### L 503.6075, L100.0100, L503.6550, L503.6150 #### [facility] [address] [place], [address] Liver Profileon 06-25-2025 Albumin [Mass/Vol] 4.2 g/dL Normal 3.4-4.8 [facility] Comment on above: Order Comment: Order Date: 06/25/25Order Info: 0788 - LIVEROrder Info: 2498-02 - FEOrder Info: 2276-02 - ANU Performed By: #### L 503.6075, L100.0100, L503.6550, L503.6150 #### [facility] [address] [place], [address] ALK PHOS 86 U/L Normal 35-104 [facility] Comment on above: Order Comment: Order Date: 06/25/25Order Info: 0788 - LIVEROrder Info: 2498-02 - FEOrder Info: 2276-02 - ANU Performed By: #### L 503.6075, L100.0100, L503.6550, L503.6150 #### [facility] [address] [place], [address] ALT [Catalytic activity/Vol] 19 U/L Normal <=34 [facility] Comment on above: Order Comment: Order Date: 06/25/25Order Info: 0788- - LIVEROrder Info: 2498-02 - FEOrder Info: 2276-02 - ANU Performed By: #### L 503.6075, L100.0100, L503.6550, L503.6150 #### [facility] [address] [place], [address] AST [Catalytic activity/Vol] 19 U/L Normal <=31 [facility] Comment on above: Order Comment: Order Date: 06/25/25Order Info: 0788- - LIVEROrder Info: 2498-02 - FEOrder Info: 2276-02 - ANU Performed By: #### L 503.6075, L100.0100, L503.6550, L503.6150 #### [facility] [address] [place], [address] Bilirubin [Mass/Vol] 0.26 mg/dL Normal 0.00-1.30 [facility] Comment on above: Order Comment: Order Date: 06/25/25Order Info: 0788- - LIVEROrder Info: 2498-02 - FEOrder Info: 2276-02 - ANU Performed By: #### L 503.6075, L100.0100, L503.6550, L503.6150 #### [facility] [address] [place], [address] Bilirubin.direct [Mass/Vol] 0.13 mg/dL Normal 0.00-0.30 [facility] Comment on above: Order Comment: Order Date: 06/25/25Order Info: 0788- - LIVEROrder Info: 2498-02 - FEOrder Info: 2276-02 - ANU Performed By: #### L 503.6075, L100.0100, L503.6550, L503.6150 #### [facility] [address] [place], [address] Globulin (S) [Mass/Vol] 3.3 g/dL Normal 2.2-4.2 [facility] Comment on above: Order Comment: Order Date: 06/25/25Order Info: 0788-1 - LIVEROrder Info: 2498-02 - FEOrder Info: 2276-02 - ANU Performed By: #### L 503.6075, L100.0100, L503.6550, L503.6150 #### [facility] [address] [place], [address] T PROT 7.5 g/dL Normal 5.9-8.4 [facility] Comment on above: Order Comment: Order Date: 06/25/25Order Info: 0788- - LIVEROrder Info: 2498-02 - FEOrder Info: 2276-02 - ANU Performed By: #### L 503.6075, L100.0100, L503.6550, L503.6150 #### [facility] [address] [place], [address] Retic Panelon 06-25-2025 IM RET FRACTION 23.40 High 3.00-15.90 [facility] Comment on above: Order Comment: Order Date: 06/25/25Order Info: 0184-1 - CBCDOrder Info: 4679-7 - RETIC Performed By: #### L 503.6075, L100.0100, L503.6550, L503.6150 #### [facility] [address] [place], [address] IPF 4.2 Normal 1.0-7.9 [facility] Comment on above: Order Comment: Order Date: 06/25/25Order Info: 0184-1 - CBCDOrder Info: 4679-7 - RETIC Result Comment: Low PLT + Low IPF suggest a bone marrow production disorder Low PLT + high IPF suggests peripheral destruction (e.g.ITP, TTP, HIT, DIC, autoimmune) or bone marrow recovery Trending of serial IPF measurements is recommended when evaluating for bone marrow respones Value above normal range indicates an increase in RBC cellular response from bone marrow. Performed By: #### L 503.6075, L100.0100, L503.6550, L503.6150 #### [facility] [address] [place], [place], [address] RET-HE 21.2 pg Low 30-35 [facility] Comment on above: Order Comment: Order Date: 06/25/25Order Info: 0184-1 - CBCDOrder Info: 4679-7 - RETIC Performed By: #### L 503.6075, L100.0100, L503.6550, L503.6150 #### [facility] [address] [place], [place], [address] Retic Count 1.99 High 0.5-1.5 [facility] Comment on above: Order Comment: Order Date: 06/25/25Order Info: 0184-1 - CBCDOrder Info: 4679-7 - RETIC Performed By: #### L 503.6075, L100.0100, L503.6550, L503.6150 #### [facility] [address] [place], [place], [address] ABD Limited w/ Elastographyo n 06-21-2025 ABD Limited w/ Elastography [facility] [address] [place], [place] [address] ABD Limited w/ Elastography MR#: [id number] Acct: [id number] Name: HALEIGH ALMEIDA Rep #: [id number] : 1955 F 70 From: Rob Barr MD PCP: Dr. Radha Odom MD Status: REG CLI Study: ABD Limited w/ Elastography Date of Exam: 06/07 03/31 Exam# [id number] Ordering Dr: Radha Odom PROCEDURE: ABD LIMITED W/ ELASTOGRAPHY 06/21/2025 REASON FOR EXAM: LIVER DISEASE TECHNIQUE: ABD LIMITED W/ ELASTOGRAPHY COMPARISON: None FINDINGS: The liver measures 12.9 cm. The liver shows increased echogenicity with coarse echotexture and nodular margin. There is no visible intrahepatic biliary dilation. Portal color flow is hepatopetal The gallbladder is absent. Visualized portion of the pancreas is unremarkable. The right kidney measures 9.5 cm and shows no mass or hydronephrosis. The common bile duct measures 4.1 mm. Elastography: Site a KPA = 9.2, F2-F3 Site B KPA = 12.2, L3-4 Site C KPA = 10.5, F2-F3 Average KPA = 10.63, 1.87 m/sec, F3 US/ABD Limited w/ Elastography IMPRESSION: Echogenic consistent with fatty infiltration or liver disease, with a nodular margin. Elastography = F3 Metavir score, moderate to severe fibrosis range. Reading Location: [facility] CC: Dr. Radha Odom MD Business Integration Manager: Signed Normal [facility] 12 Lead EKGon 06-14-2025 12 Lead EKG [facility] [address] [place] [address] 12 Lead EKG 06/13/252016 MR#: [id number] Acct: [id number] Name: HALEIGH ALMEIDA Rep #: [id number] : 1955 70 From: Danny Houser MD Attending Dr: Dr. Diego Nichole DO Status: D IS JAMARCUS Ordering Dr: Jevon Bustillo DO Date: 06/14/25 Location: U Sex: F C Admitted: 06/13/25 Test Reason : CP ADMIT Blood Pressure : */* mmHG Vent. Rate : 69 BPM Atrial Rate : 69 BPM P-R Int : 180 ms QRS Dur : 92 ms QT Int : 420 ms P-R-T Axes : 48 13 25 degrees QTcB Int : 450 ms AV dual-paced rhythm Abnormal ECG When compared with ECG of 13-Jun-2025 13:34, MANUAL COMPARISON REQUIRED DATA IS UNCONFIRMED Confirmed by DANNY HOUSER ([id number]), vending machine host/hostess KAYLYN THAPA ([id number]) on 06/17/2025 7:40:16 AM Referred By: ARTIS Confirmed By: DANNY HOUSER 06/17/25 0740 Date Danny Houser MD CC: Dr. Radha Odom MD; Dr. Jevon Bustillo DO; Dr. Diego Nichole DO Signed Normal [facility] Basic Metabolic Profile (BMP )on 06-14-2025 BUN/CRE 14.9 RATIO Normal 10-20 [facility] Comment on above: Performed By: #### L 500.2500, L100.0100, L500.4100 ####[facility] [address] [place], [address] Calcium [Mass/Vol] 9.4 mg/dL Normal 7.6-11.0 [facility] Comment on above: Performed By: #### L 500.2500, L100.0100, L500.4100 ####[facility] [address] [place], [address] Chloride [Moles/Vol] 100 mmol/L Normal 98-108 [facility] Comment on above: Performed By: #### L 500.2500, L100.0100, L500.4100 ####[facility] [address] [place], [address] CO2 [Moles/Vol] 23.5 mmol/L Normal 21.0-32.0 [facility] Comment on above: Performed By: #### L 500.2500, L100.0100, L500.4100 ####[facility] [address] [place], [address] Creatinine [Mass/Vol] 0.91 mg/dL Normal 0.70-1.20 [facility] Comment on above: Performed By: #### L 500.2500, L100.0100, L500.4100 ####[facility] [address] [place], [address] ECRCL 54.96 ml/min Normal 50-250 [facility] Comment on above: Performed By: #### L 500.2500, L100.0100, L500.4100 ####[facility] [address] [place], [address] GAP 13 Normal 5-15 [facility] Comment on above: Performed By: #### L 500.2500, L100.0100, L500.4100 ####[facility] [address] [place], [address] GFR/1.73 sq M.predicted among non-blacks MDRD (S/P/Bld) [Vol rate/Area] 69 mL/min/{1.73_m2} Normal >60 [facility] Comment on above: Result Comment: mL/m in/1.73m2 CKD-EPI Creatinine Equation (2020) Performed By: #### L 500.2500, L100.0100, L500.4100 ####[facility] [address] [place], [address] Glucose [Mass/Vol] 99 mg/dL Normal 70-99 [facility] Comment on above: Performed By: #### L 500.2500, L100.0100, L500.4100 ####[facility] [address] [place], [address] Potassium [Moles/Vol] 4.0 mmol/L Normal 3.3-5.1 [facility] Comment on above: Performed By: #### L 500.2500, L100.0100, L500.4100 ####[facility] [address] [place], [address] Sodium [Moles/Vol] 136 mmol/L Normal 133-145 [facility] Comment on above: Performed By: #### L 500.2500, L100.0100, L500.4100 ####[facility] [address] [place], [address] Urea nitrogen [Mass/Vol] 14 mg/dL Normal 4-19 [facility] Comment on above: Performed By: #### L 500.2500, L100.0100, L500.4100 ####[facility] [address] [place], [address] CBC W/Diff, Automatedon 08-0 8-2024 Absolute Lymph 1.43 X10 3/uL Normal 0.83-4.51 [facility] Comment on above: Performed By: #### L 500.2500, L100.0100, L500.4100 ####[facility] [address] [place], [address] Absolute Neut 3.2 X10 3/uL Normal 2.0-7.7 [facility] Comment on above: Performed By: #### L 500.2500, L100.0100, L500.4100 ####[facility] [address] [place], [address] Basophils/100 WBC (Bld) 0.6 % Normal 0-1 [facility] Comment on above: Performed By: #### L 500.2500, L100.0100, L500.4100 ####[facility] [address] [place], [address] Eosinophils/100 WBC (Bld) 1.7 % Normal 0-5 [facility] Comment on above: Performed By: #### L 500.2500, L100.0100, L500.4100 ####[facility] [address] [place], [address] Erythrocyte distribution width (RBC) [Ratio] 15.8 % High 11.6-14.6 [facility] Comment on above: Performed By: #### L 500.2500, L100.0100, L500.4100 ####[facility] [address] [place], [address] Hematocrit (Bld) [Volume fraction] 32.8 % Low 37-47 [facility] Comment on above: Performed By: #### L 500.2500, L100.0100, L500.4100 ####[facility] [address] [place], [address] Hemoglobin (Bld) [Mass/Vol] 10.1 g/dL Low 12.0-15.0 [facility] Comment on above: Performed By: #### L 500.2500, L100.0100, L500.4100 ####[facility] [address] [place], [address] IG% 0.200 Normal 0.0-0.9 [facility] Comment on above: Result Comment: IG% - Immature Granulocytes (promyelocytes, myelocytes and metamyelocytes) > 1% indicates that a LEFT SHIFT is Present. Performed By: #### L 500.2500, L100.0100, L500.4100 ####[facility] [address] [place], [address] Lymphocytes/100 WBC (Bld) 27.0 % Normal 19-41 [facility] Comment on above: Performed By: #### L 500.2500, L100.0100, L500.4100 ####[facility] [address] [place], [address] MCH (RBC) [Entitic mass] 25.5 pg Low 27.0-32.0 [facility] Comment on above: Performed By: #### L 500.2500, L100.0100, L500.4100 ####[facility] [address] [place], [address] MCHC (RBC) [Mass/Vol] 30.8 g/dL Low 32-36 [facility] Comment on above: Performed By: #### L 500.2500, L100.0100, L500.4100 ####[facility] [address] [place], [address] MCV (RBC) [Entitic vol] 82.8 fL Normal 81-99 [facility] Comment on above: Performed By: #### L 500.2500, L100.0100, L500.4100 ####[facility] [address] [place], [address] Monocytes/100 WBC (Bld) 9.8 % Normal 0-10 [facility] Comment on above: Performed By: #### L 500.2500, L100.0100, L500.4100 ####[facility] [address] [place], [address] Neutrophils/100 WBC (Bld) 60.7 % Normal 47-70 [facility] Comment on above: Performed By: #### L 500.2500, L100.0100, L500.4100 ####[facility] [address] [place], [address] Nucleated RBC (Bld) [#/Vol] 0 10*3/uL Normal 0-5 [facility] Comment on above: Performed By: #### L 500.2500, L100.0100, L500.4100 ####[facility] [address] [place], [address] Platelet mean volume (Bld) [Entitic vol] 11.2 fL Normal 6.2-12.0 [facility] Comment on above: Performed By: #### L 500.2500, L100.0100, L500.4100 ####[facility] [address] [place], [address] Platelets (Bld) [#/Vol] 207 10*3/uL Normal 150-450 [facility] Comment on above: Performed By: #### L 500.2500, L100.0100, L500.4100 ####[facility] [address] [place], [address] RBC (Bld) [#/Vol] 3.96 10*6/uL Low 4.2-5.4 [facility] Comment on above: Performed By: #### L 500.2500, L100.0100, L500.4100 ####[facility] [address] [place], [address] RDW SD 47.9 fl High 35.1-43.9 [facility] Comment on above: Performed By: #### L 500.2500, L100.0100, L500.4100 ####[facility] [address] [place], [address] WBC (Bld) [#/Vol] 5.3 10*3/uL Normal 4.4-11.0 [facility] Comment on above: Performed By: #### L 500.2500, L100.0100, L500.4100 ####[facility] [address] [place], [address] Discharge Instructionon 08-0 Discharge Instruction [facility] Medical Records Department [address] [place] [address] Instructions for Home/Discharge Instructions 06/14/25 1752 MR#: [id number] Acct: [id number] Name: HALEIGH ALMEIDA Rep #: [id number] : 1955 70 From: Diego Nichole DO PCP: Dr. Radha Odom MD Status:ADM JAMARCUS Discharge Instructions DC O2, CPAP, BIPAP needs Home O2 Discharge instructions: No Dressing / Incision Discharge Activity: Return to Normal Activity Weight Bearing Status: Full weight bearing Follow Up Care Test Results: Test results from this visit will be discussed in further detail at your follow-up appointment, if applicable. Discharge Plan Admission Admit Date/Time: 06/13/25 16:53 Primary Reason for Your Visit: Noncardiac chest pain Attending Provider: Diego Nichole Primary Care Provider: Radha Odom Consulting Providers: Jevon Bustillo Discharge Orders/Prescriptions Prescriptions: New isosorbide mononitrate 30 mg tablet extended release 24 hr 30 mg PO DAILY Qty: 30 0RF Continued primidone 50 mg tablet 150 mg PO QHS 30 Days Qty: 90 budesonide 1 mg/2 mL suspension for nebulization 1 mg inhalation BID Qty: 60 6RF nitroglycerin 0.4 mg tablet, sublingual 0.4 mg SUBLINGUAL Q5M PRN (Reason: Chest Pain) Qty: 25 3RF Rx Instructions: Place one tab under tongue every 5 minutes x 3 doses as needed omeprazole 20 MG capsule 20 mg PO DAILY albuterol sulfate 1 PUFF inhaler 1 puff INHALATION Q6H PRN (Reason: Sob /Or Wheezing) (DME) nebulizer and compressor Device See Rx Instructions .Route Qty: 1 0RF Rx Instructions: As directed prazosin 2 mg capsule 2 mg PO QHS sertraline 100 mg tablet 150 mg PO DAILY ipratropium-albuterol 0.5 mg-3 mg(2.5 mg base)/3 mL solution for nebulization 3 ml INHALATION Q4H PRN (Reason: shortness of breath or wheezing) Qty: 180 3RF metoprolol succinate 25 mg tablet extended release 24 hr 12.5 mg PO DAILY Qty: 45 3RF furosemide [Lasix] 20 mg tablet 20 mg PO BID Qty: 90 3RF Referrals / Follow Up: Radha Odom MD [Primary Care Provider] - Within 2 Weeks Disposition Disposition (needs filled in before D/C Order can be placed): Home, Self Care 06/14/25 1801 Diego Nichole DO CC: Dr. Radha Odom MD; Dr. Jevon Bustillo DO Signed Normal [facility] Lipid Profileon 06-14-2025 CHOL:HDL 2.33 Normal [facility] Comment on above: Performed By: #### L 500.2500, L100.0100, L500.4100 ####[facility] [address] [place], [address] Cholesterol [Mass/Vol] 178 mg/dL Normal <=200 [facility] Comment on above: Result Comment: Chol esterol level, Desirable <200 mg/dL Borderline high cholesterol 200-239 mg/dL High cholesterol >=240 mg/dL Recommendations of the NCEP Adult Treatment Panel for the following risk-cutoff thresholds for the [place] population. Performed By: #### L 500.2500, L100.0100, L500.4100 ####[facility] [address] [place], [address] Cholesterol in HDL [Mass/Vol] 76 mg/dL Normal [facility] Comment on above: Result Comment: [place] onal Cholesterol Education Program (NCEP) guidelines: <40 mg/dL: Low HDL-cholesterol (major risk factor for CHD) >= 60 mg/dL: High HDL-cholesterol (negative risk factor for CHD) HDL-cholesterol is affected by a number of factors, e.g. smoking, exercise, hormones, sex and age. Performed By: #### L 500.2500, L100.0100, L500.4100 ####[facility] [address] [place], [address] Cholesterol in LDL [Mass/Vol] 87 mg/dL Normal [facility] Comment on above: Result Comment: Bord nqlazr=130-717 mg/dL Higher Kpom=554 mg/dL or greater Friedwald Equation for LDL-C Performed By: #### L 500.2500, L100.0100, L500.4100 ####[facility] [address] [place], [address] Cholesterol in VLDL [Mass/Vol] 14 mg/dL Normal 5-40 [facility] Comment on above: Performed By: #### L 500.2500, L100.0100, L500.4100 ####[facility] [address] [place], [address] Triglyceride [Mass/Vol] 71 mg/dL Normal [facility] Comment on above: Result Comment: The drugs N-Acetylcysteine and Metamizole may falsely depress this assay. Normal range: <150 mg/dL Borderline High: 150-199 mg/dL High: 200-499 mg/dL Very High: >500 mg/dL Performed By: #### L 500.2500, L100.0100, L500.4100 ####[facility] [address] [place], [address] Stress Reporton 06-14-2025 Stress Report [facility] Cardiovascular Services [address] [place] [address] MR#: [id number] Acct: [id number] Name: HALEIGH ALMEIDA Rep #: [id number] : 1955 70 From: Danny Houser MD Primary Care: Dr. Radha Odom MD Status: ADM JAMARCUS Referring Dr: Sex: F C Stress Test Report Pharmacologic/Lexiscan myocardial perfusion stress test. Indication; 70-year-old patient with symptoms of chest pain Had a history of non-ST elevation HI in 2021. History of drug-eluting stent to the LAD In history of coronary artery bypass surgery in 2003. As well patient had a history of PCI drug- eluting stent to proximal diagonal and to the left main-2018 The coronary artery bypass surgery was in 2003 Patient had symptoms of chest pain and is scheduled for Lexiscan sestamibi. Stress protocol: Resting EKG demonstrates. Normal sinus rhythm. 0.4 mg of regadenoson was infused per usual protocol followed by rapid intravenous saline flush injection continuous EKG monitoring was performed. The maximum heart rate attained was 85 bpm which was 55% of maximum predicted heart . Stress EKG showed[, no significant change from the resting EKG, with maximum heart rate of 85 bpm. Arrhythmia: Episodes of PVCs, infrequent Symptoms: Patient had no symptoms of chest pain Blood pressure at rest: 118/70 mmHg blood pressure at the end of stress: 118/70 mmHg Myocardial perfusion protocol. [12 mCi ]of Technetium 99m Sestamibi was injected at rest. [ 0.4 mg ]of Regadenoson was infused per usual protocol peak infusion[36 mCi ]of Technetium 99m sestamibi was injected. Stress images were obtained stress and rest images were reconstructed and compared in the short axis vertical and horizontal long axis. Gated images were also obtained Perfusion SPECT analysis: Review of the images demonstrate fixed apical and anterior defect consistent with previous HI With no evidence of reversible myocardial ischemia. Gated SPECT analysis: The gated ejection fraction is 67% Wall motion showed hyperdynamic left ventricle. Conclusion: Fixed apical and anterior defect consistent with previous HI No reversible myocardial defect LV function preserved with ejection fraction calculated at 67% Danny Houser MD,[facility] lobby attendant 06/14/25 1735 Date Danny Houser MD CC: Dr. Hermelindo Vega DO; Dr. Radha Odom MD; Dr. Jevon Bustillo DO; Dr. Diego Nichole DO Date Dictated: 06/14/251714 Date Transcribed: 06/14/251714 Business Integration Manager: GEGE Signed [facility] 12 Lead EKGon 06-13-2025 12 Lead EKG [facility] Cardiovascular Services [address] [place] [address] 12 Lead EKG 06/14/25 0527 MR#: [id number] Acct: [id number] Name: HALEIGH ALMEIDA Rep #: [id number] : 1955 70 From: aDnny Houser MD Attending Dr: Dr. Diego Nichole DO Status: D IS JAMARCUS Ordering Dr: Jevon Bustillo DO Date: 06/13/25 Location: [facility] Sex: F C Admitted: 06/13/25 Test Reason : STRESS TEST Blood Pressure : */* mmHG Vent. Rate : 65 BPM Atrial Rate : 65 BPM P-R Int : 174 ms QRS Dur : 96 ms QT Int : 442 ms P-R-T Axes : 38 26 27 degrees QTcB Int : 459 ms Normal sinus rhythm Normal ECG When compared with ECG of 13-Jun-2025 20:17, MANUAL COMPARISON REQUIRED DATA IS UNCONFIRMED Confirmed by DANNY HOUSER ([id number]), vending machine host/hostess KAYLYN THAPA ([id number]) on 06/17/2025 7:39:13 AM Referred By: ARTIS Confirmed By: DANNY HOUSER 06/17/25 0739 Date Danny Houser MD CC: Dr. Radha Odom MD; Dr. Jevon Bustillo DO; Dr. Diego Nichole DO Signed [facility] 12 Lead EKG [facility] Cardiovascular Services [address] [place] [address] 12 Lead EKG 06/13/25 1334 MR#: [id number] Acct: [id number] Name: HALEIGH ALMEIDA Rep #: [id number] : 1955 70 From: Danny Houser MD Attending Dr: Dr. Diego Nichole DO Status: D IS JAMARCUS Ordering Dr: Hermelindo Vega DO Date: 5 Location: [facility] Sex: F C Admitted: 06/13/25 Test Reason : CP Blood Pressure : */* mmHG Vent. Rate : 87 BPM Atrial Rate : 87 BPM P-R Int : 174 ms QRS Dur : 92 ms QT Int : 398 ms P-R-T Axes : 52 15 34 degrees QTcB Int : 478 ms Sinus rhythm with marked sinus arrhythmia Otherwise normal ECG Confirmed by DANNY HOUSER ([id number]), vending machine host/hostess BAR GUERRA ([id number]) on 06/17/2025 6:46:17 AM Referred By: ES/AK Confirmed By: DANNY HOUSER 06/17/25 0646 Date Danny Houser MD CC: Dr. Hermelindo Vega DO; Dr. Radha Odom MD; Dr. Diego Nichole DO Signed Normal [facility] Basic Metabolic Profile (BMP )on 06-13-2025 BUN/CRE 12.7 RATIO Normal 10-20 [facility] Comment on above: Performed By: #### L 503.6075, L100.0100, L503.6550, L503.6150 #### [facility] [address] [place], [address] Calcium [Mass/Vol] 9.0 mg/dL Normal 7.6-11.0 [facility] Comment on above: Performed By: #### L 503.6075, L100.0100, L503.6550, L503.6150 #### [facility] [address] [place], [address] Chloride [Moles/Vol] 102 mmol/L Normal 98-108 [facility] Comment on above: Performed By: #### L 503.6075, L100.0100, L503.6550, L503.6150 #### [facility] [address] [place], [address] CO2 [Moles/Vol] 20.7 mmol/L Low 21.0-32.0 [facility] Comment on above: Performed By: #### L 503.6075, L100.0100, L503.6550, L503.6150 #### [facility] [address] [place], [address] Creatinine [Mass/Vol] 0.81 mg/dL Normal 0.70-1.20 [facility] Comment on above: Performed By: #### L 503.6075, L100.0100, L503.6550, L503.6150 #### [facility] [address] [place], [address] ECRCL 62.25 ml/min Normal 50-250 [facility] Comment on above: Performed By: #### L 503.6075, L100.0100, L503.6550, L503.6150 #### [facility] [address] [place], [address] GAP 14 Normal 5-15 [facility] Comment on above: Performed By: #### L 503.6075, L100.0100, L503.6550, L503.6150 #### [facility] [address] [place], [address] GFR/1.73 sq M.predicted among non-blacks MDRD (S/P/Bld) [Vol rate/Area] 79 mL/min/{1.73_m2} Normal >60 [facility] Comment on above: Result Comment: mL/m in/1.73m2 CKD-EPI Creatinine Equation (2020) Performed By: #### L 503.6075, L100.0100, L503.6550, L503.6150 #### [facility] [address] [place], [address] Glucose [Mass/Vol] 131 mg/dL High 70-99 [facility] Comment on above: Performed By: #### L 503.6075, L100.0100, L503.6550, L503.6150 #### [facility] [address] [place], [address] Potassium [Moles/Vol] 3.9 mmol/L Normal 3.3-5.1 [facility] Comment on above: Performed By: #### L 503.6075, L100.0100, L503.6550, L503.6150 #### [facility] [address] [place], [address] Sodium [Moles/Vol] 137 mmol/L Normal 133-145 [facility] Comment on above: Performed By: #### L 503.6075, L100.0100, L503.6550, L503.6150 #### [facility] [address] [place], [address] Urea nitrogen [Mass/Vol] 10 mg/dL Normal 4-19 [facility] Comment on above: Performed By: #### L 503.6075, L100.0100, L503.6550, L503.6150 #### [facility] [address] [place], [address] CBC W/Diff, Automatedon 08-0 -2024 Absolute Lymph 1.71 X10 3/uL Normal 0.83-4.51 [facility] Comment on above: Performed By: #### L 503.6075, L100.0100, L503.6550, L503.6150 #### [facility] [address] [place], [address] Absolute Neut 4.2 X10 3/uL Normal 2.0-7.7 [facility] Comment on above: Performed By: #### L 503.6075, L100.0100, L503.6550, L503.6150 #### [facility] [address] [place], [address] Basophils/100 WBC (Bld) 0.8 % Normal 0-1 [facility] Comment on above: Performed By: #### L 503.6075, L100.0100, L503.6550, L503.6150 #### [facility] [address] [place], [address] Eosinophils/100 WBC (Bld) 1.2 % Normal 0-5 [facility] Comment on above: Performed By: #### L 503.6075, L100.0100, L503.6550, L503.6150 #### [facility] [address] [place], [address] Erythrocyte distribution width (RBC) [Ratio] 15.9 % High 11.6-14.6 [facility] Comment on above: Performed By: #### L 503.6075, L100.0100, L503.6550, L503.6150 #### [facility] [address] [place], [address] Hematocrit (Bld) [Volume fraction] 32.5 % Low 37-47 [facility] Comment on above: Performed By: #### L 503.6075, L100.0100, L503.6550, L503.6150 #### [facility] [address] [place], [address] Hemoglobin (Bld) [Mass/Vol] 9.9 g/dL Low 12.0-15.0 [facility] Comment on above: Performed By: #### L 503.6075, L100.0100, L503.6550, L503.6150 #### [facility] [address] [place], [address] IG% 0.500 Normal 0.0-0.9 [facility] Comment on above: Result Comment: IG% - Immature Granulocytes (promyelocytes, myelocytes and metamyelocytes) > 1% indicates that a LEFT SHIFT is Present. Performed By: #### L 503.6075, L100.0100, L503.6550, L503.6150 #### [facility] [address] [place], [address] Lymphocytes/100 WBC (Bld) 25.8 % Normal 19-41 [facility] Comment on above: Performed By: #### L 503.6075, L100.0100, L503.6550, L503.6150 #### [facility] [address] [place], [address] MCH (RBC) [Entitic mass] 25.3 pg Low 27.0-32.0 [facility] Comment on above: Performed By: #### L 503.6075, L100.0100, L503.6550, L503.6150 #### [facility] [address] [place], [address] MCHC (RBC) [Mass/Vol] 30.5 g/dL Low 32-36 [facility] Comment on above: Performed By: #### L 503.6075, L100.0100, L503.6550, L503.6150 #### [facility] [address] [place], [address] MCV (RBC) [Entitic vol] 82.9 fL Normal 81-99 [facility] Comment on above: Performed By: #### L 503.6075, L100.0100, L503.6550, L503.6150 #### [facility] [address] [place], [address] Monocytes/100 WBC (Bld) 8.0 % Normal 0-10 [facility] Comment on above: Performed By: #### L 503.6075, L100.0100, L503.6550, L503.6150 #### [facility] [address] [place], [address] Neutrophils/100 WBC (Bld) 63.7 % Normal 47-70 [facility] Comment on above: Performed By: #### L 503.6075, L100.0100, L503.6550, L503.6150 #### [facility] [address] [place], [address] Nucleated RBC (Bld) [#/Vol] 0 10*3/uL Normal 0-5 [facility] Comment on above: Performed By: #### L 503.6075, L100.0100, L503.6550, L503.6150 #### [facility] [address] [place], [address] Platelet mean volume (Bld) [Entitic vol] 10.5 fL Normal 6.2-12.0 [facility] Comment on above: Performed By: #### L 503.6075, L100.0100, L503.6550, L503.6150 #### [facility] [address] [place], [address] Platelets (Bld) [#/Vol] 220 10*3/uL Normal 150-450 [facility] Comment on above: Performed By: #### L 503.6075, L100.0100, L503.6550, L503.6150 #### [facility] [address] [place], [address] RBC (Bld) [#/Vol] 3.92 10*6/uL Low 4.2-5.4 [facility] Comment on above: Performed By: #### L 503.6075, L100.0100, L503.6550, L503.6150 #### [facility] [address] [place], [address] RDW SD 48.2 fl High 35.1-43.9 [facility] Comment on above: Performed By: #### L 503.6075, L100.0100, L503.6550, L503.6150 #### [facility] [address] [place], [address] WBC (Bld) [#/Vol] 6.6 10*3/uL Normal 4.4-11.0 [facility] Comment on above: Performed By: #### L 503.6075, L100.0100, L503.6550, L503.6150 #### [facility] [address] [place], [address] Chest PA and Lateralon 06-13 Chest PA and Lateral [facility] Imaging Services [address] [place] [address] Chest PA and Lateral MR#: [id number] Acct: [id number] Name: HALEIGH ALMEIDA Rep #: [id number] : 1955 F 70 From: Sriram Jacome MD PCP: Dr. Radha Odom MD Status: REG ER Study: Chest PA and Lateral Date of Exam: 06/13/25 Exam# [id number] Ordering Dr: Hermelindo Vega DO PROCEDURE: CHEST PA AND LATERAL 06/13/2025 REASON FOR EXAM: CHEST PAIN TECHNIQUE: CHEST PA AND LATERAL COMPARISON: October 16, 2024 FINDINGS: Hardware: Lower cervical spine fusion. EKG leads. Heart: Mildly enlarged status post median sternotomy and CABG. Mediastinum: No mass. Lungs: Local architectural distortion, volume loss in the periphery of the inferior lateral right upper lobe. Wedge resection with posttreatment change. This is similar to prior. No new consolidation. Bones: Degenerative changes are identified within the thoracic spine. Surgical clips right upper quadrant presumably from cholecystectomy. RAD/Chest PA and Lateral IMPRESSION: 1. No acute abnormality. No interval change in the posttreatment right upper lobe. Reading Location: [id number] CC: Dr. Hermelindo Vega DO; Dr. Radha Odom MD Business Integration Manager: Signed Normal [facility] D-Dimer Quantitative (DVT/PE )on 06-13-2025 D-DIMER QUANT 0.52 FEU/ug/m Invalid Interpretation Code 0.27-0.49 [facility] Comment on above: Order Comment: CRITI BARBIE VALUE CALLED TO tuan jawfcbo64/07/25 1450 Yocastacaitlyn Neves.RESULTS READ BACK BY same. Result Comment: D-Di daryn ELEVATED (>0.49): Additional studies and clinical assessments are indicated to conclude diagnosis of: Deep Vein Thrombosis (DVT) or Pulmonary Embolism (PE) Performed By: #### L 300.8000 ####[facility] [address] [facility] [place], [address] Emergency Department Summary on 06-13-2025 Emergency Department Summary [facility] Medical Records Department [address] [place] [address] Emergency Department Summary 06/13/25 MR#: [id number] Acct: [id number] Name: HALEIGH ALMEIDA Rep #: [id number] : 1955 70 From: Hermelindo Vega DO PCP: Dr. Radha Odom MD Status:REG ER Location: ED HPI History of Present Illness Chief Complaint: Chest Pain Narrative Narrative: Chief complaint and HPI: Chest pain. 69-year-old female with past medical history of COPD with tobacco abuse, CAD status post CABG and PCI, HTN, HLD, history of lung cancer status post partial lobectomy status post surgical excision and radiation therapy CHF, HOWARD history of GI bleeds presents for evaluation of chest pain. Patient states yesterday she developed left-sided chest pain. Radiates into the upper arm. Not into the jaw. She has not taken anything for the pain other than a nitro which made no improvement. Associated symptom is a cough for the past several weeks. Patient as well as daughter states that last time she presented with chest pain and a cough she had a GI bleed. She denies any bloody bowel movements. Denies any abdominal pain. Denies any fever, chills, URI symptoms. States she does have some mild shortness of breath. Review of systems: See HPI Medications: As listed on the chart Allergies: As listed on the chart PFSH: Per chart Vital signs: As listed on the chart. Reviewed. Physical exam: Gen: A O x3, NAD Head: Normocephalic, atraumatic Eyes: No sclera icterus, conjunctiva clear ENT: Moist mucous membranes Neck: Trachea midline, No JVD CV: RRR, no murmurs, no peripheral edema Resp: Lungs CTA BL, no w/r/c GI: Abd soft, non-distended, non-tender, no r/r/g Musc: Full ROM, no deformity Skin: Warm, dry Neuro: Alert, oriented, grossly intact, sensation intact Psych: Cooperative, appropriate mood and affect [facility] Medical History Wears glasses Loose, teeth Cancer Depression Bladder disease History of steroid therapy Arthritis High cholesterol Restless legs History of GI bleed On home oxygen therapy Smoker Sleep apnea History of echocardiogram History of stress test Cardiology follow-up encounter GERD (gastroesophageal reflux disease) Lung cancer Anxiety Atherosclerotic heart disease of [place] coronary artery with unstable angina pectoris Congestive heart failure History of COPD Anemia Angina of effort Myocardial infarction, silent Adenocarcinoma of lung, stage 1 Lung cancer Melanoma Pure hypercholesterolemia Worsening angina Chest pain, unspecified HOWARD (obstructive sleep apnea) Osteoarthritis DDD (degenerative disc disease) Premature ventricular contraction Pericardial effusion Atherosclerotic heart disease of [place] coronary artery without angina pectoris Nonrheumatic mitral (valve) prolapse Tobacco abuse Essential hypertension Home Medications ???Medication ???Instructions ???Recorded ???Last Taken ???Type omeprazole 20 mg capsule,delayed 20 mg PO DAILY acid reflux 6 12/27/24 History release albuterol sulfate 90 mcg/actuation 1 puff inhalation Q6H PRN Sob / Or 07/28/20 06/14/22 History aerosol inhaler Wheezing ipratropium 0.5 mg-albuterol 3 mg 3 ml inhalation Q4H PRN shortness 12/29/20 06/08/22 Rx (2.5 mg base)/3 mL nebulization of breath or wheezing #180 mL soln nebulizer and compressor #1 ea 06/11/22 Unknown Rx primidone 50 mg tablet 150 mg PO QHS seizures 30 days #90 01/10/24 12/27/24 History tabs prazosin 2 mg capsule 2 mg PO QHS blood pressure 4 12/27/24 History budesonide 1 mg/2 mL suspension 1 mg (2 mL) inhalation BID 4 Unknown Rx for nebulization BREATHING #60 mL nitroglycerin 0.4 mg sublingual 0.4 mg sublingual Q5M PRN Chest Unknown Rx tablet Pain #25 tabs metoprolol succinate 25 mg 12.5 mg (1/2 x 25 mg) PO DAILY 06/3012/27/24 Rx tablet,extended release 24 hr blood pressure #45 TABLETS sertraline 100 mg tablet 150 mg PO DAILY mood 10/16/2412/09 History furosemide 20 mg tablet (Lasix) 20 mg PO BID diuretic #90 tabs Unknown Rx Allergy/AdvReac Type Severity Reaction Status Date / Time Iodinated Contrast Media Allergy Hives Verified 06/13/25 13:29 (Iodinated Contrast Media - IV Dye) mesalamine (From Asacol) Allergy GASTRIC Verified 06/13/25 13:29 HEMORRHAGE tetracycline (Tetracycline) Allergy Hives Verified 06/13/25 13:29 pravastatin AdvReac Intermediate Upset Verified 06/13/25 13:29 Stomach atorvastatin (From Lipitor) AdvReac myalgia Verified 06/13/25 13:29 Family History Father Hypertension Colon cancer Alcoholism Mother Cancer LUNG CANCER/ SMOKER (more content not included)... Normal [facility] H AND P Exam - Hospitaliston 06-13-2025 H&P Exam - Hospitalist [facility] Medical Records Department [address] [place] [address] H P Exam - Hospitalist 06/13/25 1704 MR#: [id number] Acct: [id number] Name: HALEIGH ALMEIDA Rep #: [id number] : 1955 70 From: Jevon Bustillo DO PCP: Dr. Radha Odom MD Status:REG ER Location: ED HPI - General General Date of Service: 06/13/25 Chief Complaint: Chest pain HPI Narrative HALEIGH ALMEIDA, is a 70 F who presents with chest pain. Symptoms began today. Patient had midsternal chest pain that goes to her left arm and associated with shortness of breath. Patient has had a history of CABG as well as stents in the past and she had different symptoms at that time. Presented to the emergency room underwent a workup that showed mild elevation of troponins of 23 and then 21. With her chest pain, elevated troponins, in the hospitalists service was contacted for admission. She states that she has had similar symptoms like this when she had a GI bleed. Back in December she underwent EGD that showed acute gastritis with hemorrhage. [facility] Medical History Wears glasses Loose, teeth Cancer Depression Bladder disease History of steroid therapy Arthritis High cholesterol Restless legs History of GI bleed On home oxygen therapy Smoker Sleep apnea History of echocardiogram History of stress test Cardiology follow-up encounter GERD (gastroesophageal reflux disease) Lung cancer Anxiety Atherosclerotic heart disease of [place] coronary artery with unstable angina pectoris Congestive heart failure History of COPD Anemia Angina of effort Myocardial infarction, silent Adenocarcinoma of lung, stage 1 Lung cancer Melanoma Pure hypercholesterolemia Worsening angina Chest pain, unspecified HOWARD (obstructive sleep apnea) Osteoarthritis DDD (degenerative disc disease) Premature ventricular contraction Pericardial effusion Atherosclerotic heart disease of [place] coronary artery without angina pectoris Nonrheumatic mitral (valve) prolapse Tobacco abuse Essential hypertension Home Medications ???Medication ???Instructions ???Recorded ???Last Taken ???Type omeprazole 20 mg capsule,delayed 20 mg PO DAILY acid reflux 6 12/27/24 History release albuterol sulfate 90 mcg/actuation 1 puff inhalation Q6H PRN Sob / Or 07/28/20 06/14/22 History aerosol inhaler Wheezing ipratropium 0.5 mg-albuterol 3 mg 3 ml inhalation Q4H PRN shortness 12/29/20 06/08/22 Rx (2.5 mg base)/3 mL nebulization of breath or wheezing #180 mL soln nebulizer and compressor #1 ea 08/05/22 Unknown Rx primidone 50 mg tablet 150 mg PO QHS seizures 30 days #90 01/10/24 12/27/24 History tabs prazosin 2 mg capsule 2 mg PO QHS blood pressure 4 12/27/24 History budesonide 1 mg/2 mL suspension 1 mg (2 mL) inhalation BID 4 Unknown Rx for nebulization BREATHING #60 mL nitroglycerin 0.4 mg sublingual 0.4 mg sublingual Q5M PRN Chest Unknown Rx tablet Pain #25 tabs metoprolol succinate 25 mg 12.5 mg (1/2 x 25 mg) PO DAILY 06/3012/27/24 Rx tablet,extended release 24 hr blood pressure #45 TABLETS sertraline 100 mg tablet 150 mg PO DAILY mood 10/16/2412/09 History furosemide 20 mg tablet (Lasix) 20 mg PO BID diuretic #90 tabs Unknown Rx Allergy/AdvReac Type Severity Reaction Status Date / Time Iodinated Contrast Media Allergy Hives Verified 06/13/25 13:29 (Iodinated Contrast Media - IV Dye) mesalamine (From Asacol) Allergy GASTRIC Verified 06/13/25 13:29 HEMORRHAGE tetracycline (Tetracycline) Allergy Hives Verified 06/13/25 13:29 pravastatin AdvReac Intermediate Upset Verified 06/13/25 13:29 Stomach atorvastatin (From Lipitor) AdvReac myalgia Verified 06/13/25 13:29 Family History Father Hypertension Colon cancer Alcoholism Mother Cancer LUNG CANCER/ SMOKER Father , MELANOMA No problems noted. Surgical History History of coronary artery stent placement History of cardiac catheterization History of cervical spinal surgery S/P partial lobectomy of lung interstim placement ( 08/05/20) Presence of coronary angioplasty implant and graft ( 03/12/18) History of cataract surgery History of abdominal surgery History of total hysterectomy History of cholecystectomy History of bowel resection Hx of appendectomy Presence of stent in coronary artery ( 06/15/22) Aortocoronary bypass status ( 05/12/04) Postsurgical percutaneous transluminal coronary angioplasty (PTCA) status ( 03/12/18) Social History adopted: No housing: house number o (more content not included)... Normal [facility] L501.4021on 06-13-2025 Trop T High Sen 23 ng/L High <=14 [facility] Comment on above: Performed By: #### L 503.6075, L100.0100, L503.6550, L503.6150 #### [facility] [address] [place], [address] Partial Thromboplast Timeon 06-13-2025 aPTT Coag (Bld) [Time] 32.5 s Normal 24.1-36.2 [facility] Comment on above: Performed By: #### L 503.6075, L100.0100, L503.6550, L503.6150 #### [facility] [address] [place], [address] Pro- Brain NATRIURETIC PEPTI Humza 06-13-2025 Natriuretic peptide B (Bld) [Mass/Vol] 965 pg/mL High <=900 [facility] Comment on above: Result Comment: Hear t Failure Unlikely: < 300 pg/mL Heart Failure Likely < 50 Years: > 450 pg/mL 50-75 Years: > 900 pg/mL >75 Years: > 1800 pg/mL Performed By: #### L 503.6075, L100.0100, L503.6550, L503.6150 #### [facility] [address] [place], [address] Prothrombin Time w/INRon INR Coag (PPP) [Relative time] 1.1 {INR} Normal [facility] Comment on above: Performed By: #### L 503.6075, L100.0100, L503.6550, L503.6150 #### [facility] [address] [place], [address] PT Coag (PPP) [Time] 14.2 s Normal 11.7-14.9 [facility] Comment on above: Performed By: #### L 503.6075, L100.0100, L503.6550, L503.6150 #### [facility] [address] [place], [address] Stool Occult Blood iFOBon STOB Negative Normal [facility] Comment on above: Performed By: #### M 100.7900 ####[facility] [address] [place], [address] Troponin T HS 2 HRon 025 Trop T High Sen 21 ng/L High <=14 [facility] Comment on above: Performed By: #### L 503.6075, L100.0100, L503.6550, L503.6150 #### [facility] [address] [place], [address] CBC W/Diff, Automatedon 08 Absolute Neut Normal 2.0-7.7 [facility] Comment on above: Order Comment: Order Date: 06/06/25Order Info: [id number] - CBCD Result Comment: This specimen has been REJECTED due to Laboratory criteria: Quanity Not Sufficient. E-MAIL has been SENT of need of recollection. 06/12/25 1651 Queta Dillard Performed By: #### L 503.6075, L100.0100, L503.6550, L503.6150 #### [facility] [address] [place], [address] HCT Normal 37-47 [facility] Comment on above: Order Comment: Order Date: 06/06/25Order Info: 0184-1 - CBCD Result Comment: This specimen has been REJECTED due to Laboratory criteria: Quanity Not Sufficient. E-MAIL has been SENT of need of recollection. 06/12/25 1651 Queta Dillard Performed By: #### L 503.6075, L100.0100, L503.6550, L503.6150 #### [facility] [address] [place], [address] HGB Normal 12.0-15.0 [facility] Comment on above: Order Comment: Order Date: 06/06/25Order Info: 0184-1 - CBCD Result Comment: This specimen has been REJECTED due to Laboratory criteria: Quanity Not Sufficient. E-MAIL has been SENT of need of recollection. 06/12/25 1651 Queta Nishant Performed By: #### L 503.6075, L100.0100, L503.6550, L503.6150 #### [facility] [address] [place], [address] MCH Normal 27.0-32.0 [facility] Comment on above: Order Comment: Order Date: 06/06/25Order Info: 0184-1 - CBCD Result Comment: This specimen has been REJECTED due to Laboratory criteria: Quanity Not Sufficient. E-MAIL has been SENT of need of recollection. 06/12/25 1651 Queta Nishant Performed By: #### L 503.6075, L100.0100, L503.6550, L503.6150 #### [facility] [address] [place], [address] MCHC Normal 32-36 [facility] Comment on above: Order Comment: Order Date: 06/06/25Order Info: 0184-1 - CBCD Result Comment: This specimen has been REJECTED due to Laboratory criteria: Quanity Not Sufficient. E-MAIL has been SENT of need of recollection. 06/12/25 1651 Queta Nishant Performed By: #### L 503.6075, L100.0100, L503.6550, L503.6150 #### [facility] [address] [place], [address] MCV Normal 81-99 [facility] Comment on above: Order Comment: Order Date: 06/06/25Order Info: 0184-1 - CBCD Result Comment: This specimen has been REJECTED due to Laboratory criteria: Quanity Not Sufficient. E-MAIL has been SENT of need of recollection. 06/12/25 165 Queta Dillard Performed By: #### L 503.6075, L100.0100, L503.6550, L503.6150 #### [facility] [address] [place], [address] NEUT% Normal 47-70 [facility] Comment on above: Order Comment: Order Date: 06/06/25Order Info: 0184-1 - CBCD Result Comment: This specimen has been REJECTED due to Laboratory criteria: Quanity Not Sufficient. E-MAIL has been SENT of need of recollection. 06/12/251650 Queta Dillard Performed By: #### L 503.6075, L100.0100, L503.6550, L503.6150 #### [facility] [address] [place], [address] PLT Normal 150-450 [facility] Comment on above: Order Comment: Order Date: 06/06/25Order Info: 0184-1 - CBCD Result Comment: This specimen has been REJECTED due to Laboratory criteria: Quanity Not Sufficient. E-MAIL has been SENT of need of recollection. 06/12/251650 Queta Dillard Performed By: #### L 503.6075, L100.0100, L503.6550, L503.6150 #### [facility] [address] [place], [address] RBC Normal 4.2-5.4 [facility] Comment on above: Order Comment: Order Date: 06/06/25Order Info: 0184-1 - CBCD Result Comment: This specimen has been REJECTED due to Laboratory criteria: Quanity Not Sufficient. E-MAIL has been SENT of need of recollection. 06/12/251650 Queta Dillard Performed By: #### L 503.6075, L100.0100, L503.6550, L503.6150 #### [facility] [address] [place], [address] RDW CV Normal 11.6-14.6 [facility] Comment on above: Order Comment: Order Date: 06/06/25Order Info: 0184-1 - CBCD Result Comment: This specimen has been REJECTED due to Laboratory criteria: Quanity Not Sufficient. E-MAIL has been SENT of need of recollection. 06/12/25 1651 Queta Dillard Performed By: #### L 503.6075, L100.0100, L503.6550, L503.6150 #### [facility] [address] [place], [address] RDW SD Normal 35.1-43.9 [facility] Comment on above: Order Comment: Order Date: 06/06/25Order Info: 0184-1 - CBCD Result Comment: This specimen has been REJECTED due to Laboratory criteria: Quanity Not Sufficient. E-MAIL has been SENT of need of recollection. 06/12/25 1651 Queta Dillard Performed By: #### L 503.6075, L100.0100, L503.6550, L503.6150 #### [facility] [address] [place], [address] WBC Normal 4.4-11.0 [facility] Comment on above: Order Comment: Order Date: 06/06/25Order Info: 0184-1 - CBCD Result Comment: This specimen has been REJECTED due to Laboratory criteria: Quanity Not Sufficient. E-MAIL has been SENT of need of recollection. 06/12/25 1651 Queta Dillard Performed By: #### L 503.6075, L100.0100, L503.6550, L503.6150 #### [facility] [address] [place], [address] Comprehensive Metabolic Prof ilon 06-12-2025 Albumin [Mass/Vol] 4.3 g/dL Normal 3.4-4.8 [facility] Comment on above: Order Comment: Order Date: 06/06/25Order Info: 0786-1 - CMPOrder Info: 2498-02 - FEOrder Info: [id number] - ANU Performed By: #### L 503.6075, L100.0100, L503.6550, L503.6150 #### [facility] [address] [place], [address] Albumin/Globulin [Mass ratio] 1.2 {ratio} Normal 0.9-2.4 [facility] Comment on above: Order Comment: Order Date: 06/06/25Order Info: 785- - CMPOrder Info: 2498-02 - FEOrder Info: [id number] - ANU Performed By: #### L 503.6075, L100.0100, L503.6550, L503.6150 #### [facility] [address] [place], [address] ALK PHOS 85 U/L Normal 35-104 [facility] Comment on above: Order Comment: Order Date: 06/06/25Order Info: 07 - CMPOrder Info: [id number] - FEOrder Info: 2276-02 - ANU Performed By: #### L 503.6075, L100.0100, L503.6550, L503.6150 #### [facility] [address] [place], [address] ALT [Catalytic activity/Vol] 13 U/L Normal <=34 [facility] Comment on above: Order Comment: Order Date: 06/06/25Order Info: 07 - CMPOrder Info: 2498-02 - FEOrder Info: 2276-02 - ANU Performed By: #### L 503.6075, L100.0100, L503.6550, L503.6150 #### [facility] [address] [place], [address] AST [Catalytic activity/Vol] 21 U/L Normal <=31 [facility] Comment on above: Order Comment: Order Date: 06/06/25Order Info: 07 - CMPOrder Info: [id number] - FEOrder Info: 2276-02 - ANU Performed By: #### L 503.6075, L100.0100, L503.6550, L503.6150 #### [facility] [address] [place], [address] Bilirubin [Mass/Vol] 0.22 mg/dL Normal 0.00-1.30 [facility] Comment on above: Order Comment: Order Date: 06/06/25Order Info: 07- - CMPOrder Info: 2498-02 - FEOrder Info: 2276-02 - ANU Performed By: #### L 503.6075, L100.0100, L503.6550, L503.6150 #### [facility] [address] [place], [address] BUN/CRE 14.3 RATIO Normal 10-20 [facility] Comment on above: Order Comment: Order Date: 06/06/25Order Info: 0786- - CMPOrder Info: 2498-02 - FEOrder Info: 2276-02 - ANU Performed By: #### L 503.6075, L100.0100, L503.6550, L503.6150 #### [facility] [address] [place], [address] Calcium [Mass/Vol] 9.5 mg/dL Normal 7.6-11.0 [facility] Comment on above: Order Comment: Order Date: 06/06/25Order Info: 0786 - CMPOrder Info: 2498-02 - FEOrder Info: 2276-02 - ANU Performed By: #### L 503.6075, L100.0100, L503.6550, L503.6150 #### [facility] [address] [place], [address] Chloride [Moles/Vol] 102 mmol/L Normal 98-108 [facility] Comment on above: Order Comment: Order Date: 06/06/25Order Info: 0786- - CMPOrder Info: 2498-02 - FEOrder Info: 2276-02 - ANU Performed By: #### L 503.6075, L100.0100, L503.6550, L503.6150 #### [facility] [address] [place], [place], [id number] CO2 [Moles/Vol] 21.6 mmol/L Normal 21.0-32.0 [facility] Comment on above: Order Comment: Order Date: 06/06/25Order Info: 07- - CMPOrder Info: 2498-02 - FEOrder Info: 2275-4 - ANU Performed By: #### L 503.6075, L100.0100, L503.6550, L503.6150 #### [facility] [address] [place], [place], [id number] Creatinine [Mass/Vol] 0.86 mg/dL Normal 0.70-1.20 [facility] Comment on above: Order Comment: Order Date: 06/06/25Order Info: 785-11 - CMPOrder Info: 2498-02 - FEOrder Info: 2276-02 - ANU Performed By: #### L 503.6075, L100.0100, L503.6550, L503.6150 #### [facility] [address] [place], [address] GAP 14 Normal 5-15 [facility] Comment on above: Order Comment: Order Date: 06/06/25Order Info: 0786 - CMPOrder Info: 2498-02 - FEOrder Info: 2276-02 - ANU Performed By: #### L 503.6075, L100.0100, L503.6550, L503.6150 #### [facility] [address] [place], [place], [id number] GFR/1.73 sq M.predicted among non-blacks MDRD (S/P/Bld) [Vol rate/Area] 74 mL/min/{1.73_m2} Normal >60 [facility] Comment on above: Order Comment: Order Date: 06/06/25Order Info: 07- - CMPOrder Info: 2498-02 - FEOrder Info: 2276-02 - ANU Result Comment: mL/m in/1.73m2 CKD-EPI Creatinine Equation (2020) Performed By: #### L 503.6075, L100.0100, L503.6550, L503.6150 #### [facility] [address] [place], [address] Globulin (S) [Mass/Vol] 3.4 g/dL Normal 2.2-4.2 [facility] Comment on above: Order Comment: Order Date: 06/06/25Order Info: 07- - CMPOrder Info: 2498-02 - FEOrder Info: 2276-02 - ANU Performed By: #### L 503.6075, L100.0100, L503.6550, L503.6150 #### [facility] [address] [place], [address] Glucose [Mass/Vol] 87 mg/dL Normal 70-99 [facility] Comment on above: Order Comment: Order Date: 06/06/25Order Info: 0786 - CMPOrder Info: 2498-02 - FEOrder Info: 2276-02 - ANU Performed By: #### L 503.6075, L100.0100, L503.6550, L503.6150 #### [facility] [address] [place], [address] Potassium [Moles/Vol] 4.5 mmol/L Normal 3.3-5.1 [facility] Comment on above: Order Comment: Order Date: 06/06/25Order Info: 0786 - CMPOrder Info: 2498-02 - FEOrder Info: 2276-02 - ANU Performed By: #### L 503.6075, L100.0100, L503.6550, L503.6150 #### [facility] [address] [place], [address] Sodium [Moles/Vol] 137 mmol/L Normal 133-145 [facility] Comment on above: Order Comment: Order Date: 06/06/25Order Info: 0786-1 - CMPOrder Info: 2498-02 - FEOrder Info: 2276-02 - ANU Performed By: #### L 503.6075, L100.0100, L503.6550, L503.6150 #### [facility] [address] [place], [address] T PROT 7.7 g/dL Normal 5.9-8.4 [facility] Comment on above: Order Comment: Order Date: 06/06/25Order Info: 0786-1 - CMPOrder Info: 2498-02 - FEOrder Info: 2276-02 - ANU Performed By: #### L 503.6075, L100.0100, L503.6550, L503.6150 #### [facility] [address] [place], [place], [id number] Urea nitrogen [Mass/Vol] 12 mg/dL Normal 4-19 [facility] Comment on above: Order Comment: Order Date: 06/06/25Order Info: 0786-1 - CMPOrder Info: 2498-02 - FEOrder Info: 2276-02 - ANU Performed By: #### L 503.6075, L100.0100, L503.6550, L503.6150 #### [facility] [address] [place], [place], [id number] Ferritinon 06-12-2025 Ferritin [Mass/Vol] 21 ng/mL Low 22-378 [facility] Comment on above: Order Comment: Order Date: 06/06/25Order Info: 0786-1 - CMPOrder Info: 2498-02 - FEOrder Info: 2276-02 - ANU Performed By: #### L 503.6075, L100.0100, L503.6550, L503.6150 #### [facility] [address] [place], [address] Ironon 06-12-2025 Iron [Mass/Vol] 26 ug/dL Low 50-170 [facility] Comment on above: Order Comment: Order Date: 06/06/25Order Info: 0786-1 - CMPOrder Info: 2498-02 - FEOrder Info: 2276-02 - ANU Performed By: #### L 503.6075, L100.0100, L503.6550, L503.6150 #### [facility] [address] [place], [address] Pro- Brain NATRIURETIC PEPTI Humza 06-12-2025 Natriuretic peptide B (Bld) [Mass/Vol] 1475 pg/mL High <=900 [facility] Comment on above: Order Comment: Order Date: 06/06/25Order Info: 0786-1 - CMPOrder Info: 2498-02 - FEOrder Info: 2275-4 - ANU Result Comment: Hear t Failure Unlikely: < 300 pg/mL Heart Failure Likely < 50 Years: > 450 pg/mL 50-75 Years: > 900 pg/mL >75 Years: > 1800 pg/mL Performed By: #### L 503.6075, L100.0100, L503.6550, L503.6150 #### [facility] [address] [place], [address] L3410.9998on 01-02-2025 [facility] Misc. COMMENT Normal . [facility] Comment on above: Order Comment: 12612 9ENHANCED LIVE FIBROSIS Result Comment: Test Ordered: [id number] Enhanced Liver Fibrosis (ELF) ELF(TM) Score 9.64 BN Reference Range: <9.80 ELF(TM) Score Interpretation: Risk cut-offs to assess the likelihood of progression to cirrhosis and liver-related clinical events within 3.9 years following baseline ELF score (IQR: 14.0-22.4 months)*: Lower risk < 9.80 Mid risk 9.80 - 11.29 Higher risk >11.29 Note: The ELF(TM) Score is a unitless numerical value. *Sesar SA, Fernie VW, Leslie T, et al. Selonsertib for patients with bridging fibrosis or compensated cirrhosis due to COLEMAN: Results from randomized phase III STELLAR trials. J Hepatol. 2020 May;73(1):26-39. Performed at: - [facility] [id number] Oil Derrick Operator: Channing Salazar MD, Phone: [phone] Performed at: - [facility] [address] [place], [place] [id number] [employer] Der[employer] Operator: Handy Guerrero PhD, Phone: [phone] Performed By: #### L 503.4401, L100.2129, A737.0441, L504.9219 #### [facility] [address] [facility] [place], [place], [address] Colonoscopy Reporton 025 Colonoscopy Report [facility] Medical Records Department [address] [place] [address] Colonoscopy Report MR#: [id number] Acct: [id number] Name: HALEIGH ALMEIDA Rep #: [id number] : 1955 69 From: Tanner Beasley DO PCP: Dr. Radha Odom MD Status:[facility] Patient Name: Haleigh Almeida Procedure Date: 12/28/2024 7:06 AM Date of : 1955 Age: 69 Procedure: Colonoscopy Indications: Iron deficiency anemia Providers: Tanner Beasley DO Referring MD: Phani Odom Medicines: Monitored Anesthesia Care Patient Profile: This is a 69 year old female. Refer to note in patient chart for documentation of history and physical. Patient has symptoms. Last Colonoscopy: more than 3 years ago. Complications: No immediate complications. Procedure: Pre-Anesthesia Assessment: - Prior to the procedure, a History and Physical was performed, and patient medications and allergies were reviewed. The patient is competent. The risks and benefits of the procedure and the sedation options and risks were discussed with the patient. All questions were answered and informed consent was obtained. Patient identification and proposed procedure were verified by the physician in the pre-procedure area. Mental Status Examination: alert and oriented. Airway Examination: normal oropharyngeal airway and neck mobility. Respiratory Examination: clear to auscultation. CV Examination: normal. Prophylactic Antibiotics: The patient does not require prophylactic antibiotics. Prior Anticoagulants: The patient has taken no anticoagulant or antiplatelet agents except for NSAID medication. ASA Grade Assessment: II - A patient with mild systemic disease. After reviewing the risks and benefits, the patient was deemed in satisfactory condition to undergo the procedure. The anesthesia plan was to use monitored anesthesia care (MAC). Immediately prior to administration of medications, the patient was re-assessed for adequacy to receive sedatives. The heart rate, respiratory rate, oxygen saturations, blood pressure, adequacy of pulmonary ventilation, and response to care were monitored throughout the procedure. The physical status of the patient was re-assessed after the procedure. After I obtained informed consent, the scope was passed under direct vision. Throughout the procedure, the patient's blood pressure, pulse, and oxygen saturations were monitored continuously. The Colonoscope was introduced through the anus and advanced to the terminal ileum. The colonoscopy was performed without difficulty. The patient tolerated the procedure well. The quality of the bowel preparation was adequate. The terminal ileum, ileocecal valve, appendiceal orifice, and rectum were photographed. Scope In: 7:08:02 AM Scope Withdrawal Time 0 hours 11 minutes 3 seconds Scope Out: 7:22:49 AM Total Procedure Duration Time 0 hours 14 minutes 47 seconds Findings: The perianal and digital rectal examinations were normal. A few small-mouthed diverticula were found in the recto-sigmoid colon and sigmoid colon. An 8 mm polyp was found in the splenic flexure. The polyp was sessile. The polyp was removed with a hot snare. Resection and retrieval were complete. Verification of patient identification for the specimen was done. Estimated blood loss was minimal. The terminal ileum appeared normal. Impression: - Diverticulosis in the recto-sigmoid colon and in the sigmoid colon. - One 8 mm polyp at the splenic flexure, removed with a hot snare. Resected and retrieved. - The examined portion of the ileum was normal. Recommendation: - Discharge patient to home. - Resume previous diet. - Continue present medications. - Await pathology results. - Repeat colonoscopy in 3 years for surveillance. Procedure Code(s): --- Professional --- 46155, Colonoscopy, flexible; with removal of tumor(s), polyp(s), or other lesion(s) by snare technique CPT copyright 2021 [employer]. All rights reserved. The codes documented in this report are preliminary and upon saturation diver review may be revised to meet current compliance requirements. Tanner Beasley DO 12/28/2024 7:34:59 AM This report has been signed electronically. Number of Addenda: 0 Note Initiated On: 12/28/2024 7:06 AM 12/28/24 0735 Date Tanner Beasley DO Cosigner Signature: Date (if indicated) CC: Dr. Radha Odom MD; Tanner Beasley DO Date Dictated: 12/28/24705 Date Transcribed: Business Integration Manager: RF Signed Normal [facility] EGD Reporton 12-28-2024 EGD Report [facility] Medical Records Department [address] [place] [address] EGD Report MR#: [id number] Acct: [id number] Name: HALEIGH ALMEIDA Rep #: [id number] : 1955 69 From: Tanner Beasley DO PCP: Dr. Radha Odom MD Status:[facility] Patient Name: Haleigh Almeida Procedure Date: 12/28/2024 6:35 AM Date of : 1955 Age: 69 Procedure: Upper GI endoscopy Indications: Iron deficiency anemia Providers: Tanner Beasley DO Referring MD: Phani Odom Medicines: Monitored Anesthesia Care Patient Profile: This is a 69 year old female. Refer to note in patient chart for documentation of history and physical. Patient has symptoms. Complications: No immediate complications. Procedure: Pre-Anesthesia Assessment: - Prior to the procedure, a History and Physical was performed, and patient medications and allergies were reviewed. The patient is competent. The risks and benefits of the procedure and the sedation options and risks were discussed with the patient. All questions were answered and informed consent was obtained. Patient identification and proposed procedure were verified by the physician in the pre-procedure area. Mental Status Examination: alert and oriented. Airway Examination: normal oropharyngeal airway and neck mobility. Respiratory Examination: clear to auscultation. CV Examination: normal. Prophylactic Antibiotics: The patient does not require prophylactic antibiotics. Prior Anticoagulants: The patient has taken no anticoagulant or antiplatelet agents except for NSAID medication. ASA Grade Assessment: II - A patient with mild systemic disease. After reviewing the risks and benefits, the patient was deemed in satisfactory condition to undergo the procedure. The anesthesia plan was to use monitored anesthesia care (MAC). Immediately prior to administration of medications, the patient was re-assessed for adequacy to receive sedatives. The heart rate, respiratory rate, oxygen saturations, blood pressure, adequacy of pulmonary ventilation, and response to care were monitored throughout the procedure. The physical status of the patient was re-assessed after the procedure. After obtaining informed consent, the endoscope was passed under direct vision. Throughout the procedure, the patient's blood pressure, pulse, and oxygen saturations were monitored continuously. The Colonoscope was introduced through the mouth, and advanced to the second part of duodenum. The upper GI endoscopy was accomplished without difficulty. The patient tolerated the procedure well. Scope In: 7:03:28 AM Scope Out: 7:06:13 AM Total Procedure Duration Time 0 hours 2 minutes 45 seconds Findings: The examined esophagus was normal. A small hiatal hernia was present. Localized severe inflammation with hemorrhage characterized by congestion (edema), erosions and erythema was found in the gastric body. Biopsies were taken with a cold forceps for histology. Verification of patient identification for the specimen was done. Estimated blood loss was minimal. Biopsies were taken with a cold forceps for Helicobacter pylori testing. Verification of patient identification for the specimen was done. Estimated blood loss was minimal. No gross lesions were noted in the second portion of the duodenum. Impression: - Normal esophagus. - Small hiatal hernia. - Acute gastritis with hemorrhage. Biopsied. - No gross lesions in the second portion of the duodenum. Recommendation: - Discharge patient to home. - Resume previous diet. - Continue present medications. - Await pathology results. Procedure Code(s): --- Professional --- 28432, Esophagogastroduodenos copy, flexible, transoral; with biopsy, single or multiple CPT copyright 2021 [employer]. All rights reserved. The codes documented in this report are preliminary and upon saturation diver review may be revised to meet current compliance requirements. Tanner Beasley DO 12/28/2024 7:32:30 AM This report has been signed electronically. Number of Addenda: 0 Note Initiated On: 12/28/2024 6:35 AM 12/28/2433 Date Tanner Beasley DO Cosigner Signature: Date (if indicated) CC: Dr. Radha Odom MD; Tanner Beasley DO Date Dictated: 12/28/2435 Date Transcribed: Business Integration Manager: BELGICA Signed Normal [facility] H Pylori (initial)on H Pylori (initial) -- ---- Patient Age/Sex Location Account Attending Physician ---- HALEIGH ALMEIDA 69/F EN [id number] Tanner Beasley DO ---- Specimen: [id number] Received: 12/28/24-1043 Status: TEETEE Pack Num: [id number] Spec Type: IMMUNO Subm Dr: Tanner Beasley DO PHYSICIAN INSTITUTION [address] [address] SPECIMEN INFORMATION: Tissue Source: A- Gastric body biopsy Clinical Info: Anemia, right lower quadrant abdominal pain, diarrhea, weight loss Specimen Number: [id number] CPT code: 38969 METHODOLOGY: Deparaffinized sections of prefer/formalin-fixed tissue or PAP/DQ stained slides are incubated with monoclonal/polyclonal antibodies/oligonucleo tide probes. Localization is made via biotin free immunoperoxidase method. Appropriate controls are performed and reacted as expected. Results on target cell population are indicated in the following table: RESULTS: ANTIBODY / CLONE RESULT Block AH Pylori (polyclonal) negative These tests were developed and their performance characteristics determined by [facility]. They may not have been cleared or approved by the U.S. Food and Drug Administration. The FDA has determined that such clearance or approval is not necessary. The above immunohistochemical/du alISH markers are ordered and reviewed by the Pathologist. INTERPRETATION: A. Gastric body, biopsy: Negative for Helicobacter pylori organisms. 12/31/2024 Signed (signature on file) Dr. Jo-Ann Oseguera MD 12/31/24 1310 ---- Normal [facility] Comment on above: Performed By: #### L 503.6075, L100.0100, L503.6550, L503.6150 #### [facility] [address] [place] [address], [address] MR/POSTOP.ANEon 12-28-2024 MR/POSTOP.[facility] Medical Records Department [address] [place] [address] Anesthesia Postop Eval I 12/28/24 0730 MR#: [id number] Acct: [id number] Name: HALEIGH ALMEIDA Rep #: [id number] : 1955 69 From: Alejo Pierce PCP: Dr. Radha Odom MD Status:REG SDC Y Race: C Location: [place] [address] Anesthesia: Postop Eval I Current Vital Signs Temperature: 97 F Pulse Rate: 65 Blood Pressure: 96/65 Respiratory Rate: 16 Pulse Ox: 100 Oxygen Delivery Method: Room Air Assessment Airway patent: Yes Spontaneous unlabored respirations: Yes Mental status: Awake and Calm nausea: No Vomiting: No Anesthesia Complication: No Fluid Hydration Crystalloid volume administer (ml): 20 Total IV fluid infused: 20 Progress Note Anesthesia document: Postop Eval 1 completed: Yes 12/28/24729 Date Alejo Luevano Signature: Date CC: Signed Normal [facility] MR/[id number] 12-28-2024 MR/POSTOPAN2 [facility] Medical Records Department [address] [place] [address] Anesthesia Postop Eval II 12/28/24 0751 MR#: [id number] Acct: [id number] Name: HALEIGH ALMEIDA Rep #: [id number] : 1955 69 From: Alejo Pierce PCP: Dr. 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 Spontaneous unlabored Yes 12/28/24 07:30 WOOD TANK ERECTOR.MDOT respirations Mental status Awake,Calm 12/28/24 07:30 WOOD TANK ERECTOR.MDOT nausea No 12/28/24 07:30 WOOD TANK ERECTOR.MDOT Vomiting No 12/28/24 07:30 WOOD TANK ERECTOR.MDOT Anesthesia Postop Eval I: Fluid Summary Crystalloid volume administer 20 12/28/24 07:30 WOOD TANK ERECTOR.MDOT (ml) Colloids volume administered ( ml) Blood Product volume administered (ml) Total IV fluid infused 20 12/28/24 07:30 WOOD TANK ERECTOR.MDOT Anesthesia Postop Eval I: Summary Notes Anesthesia Complication No 12/28/24 07:30 WOOD TANK ERECTOR.MDOT Anesthesia Complication Comment: Post-operative progress note Anesthesia: Postop Eval II Evaluation Mental status: Awake and Calm Pain Level: 0 nausea: No Vomiting: No Complications Anesthesia Complication: No 12/28/24 0751 Date Alejo Luevano Signature: Date CC: Signed Normal [facility] Surgery Specimen Level Vignesh 12-28-2024 Surgery Specimen Level IV ---- Patient Age/Sex Location Account Attending Physician ---- JUAN PABLOHALEIGH Janie 69/F EN [id number] Tanner Beasley DO ---- Specimen: [id number] Received: 12/28/24 Status: TEETEE Jimenezberenice Num: [id number] Spec Type: COLON BX Subm Dr: Tanner Beasley DO HEADER OPERATION: Colonoscopy, polypectomy, EGD biopsy PRE-OP DIAGNOSIS: Anemia, right lower quadrant abdominal pain, diarrhea, weight loss TISSUE SUBMITTED: A- Gastric body biopsy, B- Splenic flexure polyp ---- MICROSCOPIC DIAGNOSIS A. Gastric body, biopsy: Gastric mucosa with focal superficial mucosal hemorrhage and focal mild chronic inflammation. See comment. B. Splenic flexure polyp: Tubular adenoma. GREGORIO/mr 12/31/2024 COMMENT A. The results of immunohistochemistry for Helicobacter pylori will be reported separately ([id number]). MICROSCOPIC DESCRIPTION Slides are reviewed. GROSS DESCRIPTION A. Received in fixative is one container labeled with the patient's name and designated Gastric body biopsy. The specimen consists of two irregular fragments of light vu soft tissue that in aggregate measure 0.8 x 0.2 x 0.2 cm. The specimen is totally submitted in one cassette. B. Received in fixative is one container labeled with the patient's name and designated Splenic flexure polyp. The specimen consists of two irregular fragments of light vu soft tissue that in aggregate measure 0.5 x 0.2 x 0.2 cm. The specimen is totally submitted in one cassette. 12/28/2024 TC:3 CPT:02213h1 ---- Patient Age/Sex Location Account Attending Physician ---- HALEIGH ALMEIDA 69/F EN [id number] Tanner Beasley DO ---- Signed (signature on file) Dr. Jo-Ann Oseguera MD 12/31/24 1246 ---- Normal [place] [facility] Comment on above: Performed By: #### P SUIV ####[facility] [address] [place], [address] CBC W/Diff, Automatedon 12-08 Anisocytosis Ql (Bld) 1+ Normal [facility] Comment on above: Performed By: #### L 503.6075, L100.0100, L503.6550, L503.6150 #### [facility] [address] [place], [address] SMEAR COMMENT SCANNED Normal [facility] Comment on above: Performed By: #### L 503.6075, L100.0100, L503.6550, L503.6150 #### [facility] [address] [place], [address] Liver Profileon 12-26-2024 Albumin [Mass/Vol] 3.8 g/dL Normal 3.2-5.0 [facility] Comment on above: Performed By: #### L 503.6075, L100.0100, L503.6550, L503.6150 #### [facility] [address] [place], [address] ALK P 79 U/L Normal 45-117 [facility] Comment on above: Performed By: #### L 503.6075, L100.0100, L503.6550, L503.6150 #### [facility] [address] [place], [address] ALT [Catalytic activity/Vol] 23 U/L Normal 13-56 [facility] Comment on above: Performed By: #### L 503.6075, L100.0100, L503.6550, L503.6150 #### [facility] [address] [place], [address] AST [Catalytic activity/Vol] 17 U/L Normal 15-37 [facility] Comment on above: Performed By: #### L 503.6075, L100.0100, L503.6550, L503.6150 #### [facility] [address] [place], [address] Bilirubin [Mass/Vol] 0.40 mg/dL Normal 0.20-1.00 [facility] Comment on above: Result Comment: For patients on eltrombopag therapy, use of Dimension Aspen TBIL is not recommended. Performed By: #### L 503.6075, L100.0100, L503.6550, L503.6150 #### [facility] [address] [place], [address] Bilirubin.direct [Mass/Vol] 0.11 mg/dL Normal 0.00-0.30 [facility] Comment on above: Performed By: #### L 503.6075, L100.0100, L503.6550, L503.6150 #### [facility] [address] [place], [address] Globulin (S) [Mass/Vol] 4.2 g/dL Normal 2.2-4.2 [facility] Comment on above: Performed By: #### L 503.6075, L100.0100, L503.6550, L503.6150 #### [facility] [address] [place], [address] T PROT 8.0 g/dL Normal 6.4-8.2 [facility] Comment on above: Performed By: #### L 503.6075, L100.0100, L503.6550, L503.6150 #### [facility] [address] [place], [address] Prothrombin Time w/INRon INR Coag (PPP) [Relative time] 1.0 {INR} Normal [facility] Comment on above: Performed By: #### L 503.6075, L100.0100, L503.6550, L503.6150 #### [facility] [address] [place], [address] PT Coag (PPP) [Time] 13.6 s Normal 11.7-14.9 [facility] Comment on above: Performed By: #### L 503.6075, L100.0100, L503.6550, L503.6150 #### [facility] [address] [place], [address] MR/PAT.ANEon 12-25-2024 MR/PAT.DANIS [facility] Medical Records Department [address] [place] [address] PAT - Anesthesia 12/25/24 1612 MR#: [id number] Acct: [id number] Name: HALEIGH ALMEIDA Rep #: [id number] : 1955 69 From: Janak Couch MD PCP: Dr. 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 When Was Last Pacemaker Check QUESTION #4 FULL TEXT: You/Your Family Experience fever (hyperthermia) with Anesthesia Last Oral Intake Last Oral intake: Last Oral Intake NPO since Meds taken in AM with sips of water? Meds patient instructed to take am of surgery PONV PONV - terrazzo worker apprentice: PONV - terrazzo worker apprentice Female Yes 12/25/24 12:39 HX of Motion Sickness No 12/25/24 12:39 HX of N/V After Surgery No 12/25/24 12:39 Non-Smoker No 12/25/24 12:39 Duration of Surgery greater No 12/25/24 12:39 than 60 minutes Number of Risk Factors 1 12/25/24 12:39 PONV Score Low Risk 12/25/24 12:39 Height Weight Height Weight: Anesthesia: Height Weight Height 5 ft 3 in 11/14/24 10:50 Respiratory Assessment Respiratory Assessment - terrazzo worker apprentice: Respiratory Tract Infection Hx - terrazzo worker apprentice Hx Respiratory Tract Infection No 12/25/24 12:39 STOP Sleep Apnea STOP Sleep Apnea - terrazzo worker apprentice: STOP Sleep Apnea - terrazzo worker apprentice Hx Hypertension Yes: CONTROLLED WITH MED 12/25/24 12:39 Hx Sleep Apnea Yes: 2L O2 AT NIGHT 12/25/24 12:39 CPAP No 12/25/24 12:39 BIPAP No 12/25/24 12:39 Do you snore loudly (louder than talking or can be heard Do you often feel tired/ fatigued/ sleepy during daytime? Has anyone observed you stop breathing during sleep? STOP Results Positive 12/25/24 12:39 QUESTION #5 FULL TEXT : Do you snore loudly (louder than talking or can be heard through closed doors)? 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 Specify any problems Hx of Preganancy in last 3 N/A 12/25/24 12:39 Months Nurse Filling Out Transfusion NBUCHER 12/25/24 12:39 Questions: Date: 12/25/24 12/25/24 12:39 Time: 12:39 02/18/25 12:39 Patient unable to answer at this time (ie. confused, unrespo /Reproduction History /Reproductive History - terrazzo worker apprentice: /Reproductive Hx- terrazzo worker apprentice Hx Now No 12/25/24 12:39 Gestational Age (in weeks): EDC: Hx Hx Para Hx Section SAB No 12/25/24 12:39 [facility] Medical History (Updated 12/25/24 @ 12:49 by Nasra Argueta) Wears glasses Loose, teeth Cancer Depression Bladder disease History of steroid therapy Arthritis High cholesterol Restless legs History of GI bleed On home oxygen therapy Smoker Sleep apnea History of echocardiogram History of stress test Cardiology follow-up encounter GERD (gastroesophageal reflux disease) Lung cancer Anxiety Atherosclerotic heart disease of [place] coronary artery with unstable angina pectoris Congestive heart failure History of COPD Anemia Angina of effort Myocardial infarction, silent Adenocarcinoma of lung, stage 1 Lung cancer Melanoma Pure hypercholesterolemia Worsening angina Chest pain, unspecified HOWARD (obstructive sleep apnea) Osteoarthritis DDD (degenerative disc disease) Premature ventricular contraction Pericardial effusio (more content not included)... Normal [facility] 12 Lead EKG performed by [facility] on 12-06-2024 12 [place] [address] 12 Lead EKG performed by [facility] 12/06/24 0808 MR#: [id number] Acct: [id number] Name: HALEIGH ALMEIDA Rep #: [id number] : 1955 69 From: Hannah Stevenson CUSTOM FURRIER CUSTOM FURRIER-C Attending Dr: MT Watson Status: DEP AMB Ordering Dr: Hannah Stevenson CUSTOM FURRIER CUSTOM FURRIER-C Date: 12/06/24 Location: [facility] Sex: F C Admitted: [facility]/12 Lead EKG performed by [facility] ECG Report Interpretation ----Sinus Rhythm -Old anterior infarct. ABNORMAL Electronically signed on 12/08/2024 at 17:07 by Larry Burnhamwood Software Version [id number] 12/08/24 0024 Date Hannah AMOR CC: Dr. Radha Odom MD Date Dictated: 12/06/24807 Date Transcribed: 12/06/24807 Business Integration Manager: SRINIVASA Signed Normal [facility] Cardiology Visit Reporton Cardiology Visit Report [facility] Heart Group [address] [place] [address] OFFICE VISIT Date of Service: 12/06/24 MR#: [id number] Acct: [id number] Name: HALEIGH ALMEIDA Rep #: [id number] : 1955 Provider: MT mackenzie Age/Sex: 69/F Location: [facility] Status: Signed HPI HPI History of Present Illness Details: HALEIGH ALMEIDA, is a 69 year old white female who presents to the office today for a follow-up of her history of premature coronary artery disease with multi coronary revascularization procedures including PCI and bypass surgery, ischemic cardiomyopathy, MVP, hyperlipidemia, and hypertension. She also has a history of lung adenocarcinoma status post surgical excision and subsequent radiation therapy. Evaluated after being seen in the [facility] emergency department on January 12, 2020 she presented there with profound shortness of breath and some chest discomfort that reminded her of her previous angina. However her troponins were negative x 2 sets and she left AMA in the emergency department. 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 She reports that the symptoms have completely resolved. She has been referred back to radiation oncology to be evaluated in [place] at the [facility]. Patient continue to smoke reporting that she is trying past year losing both her grandson and her . She denies chest, arm, jaw, or neck discomfort. She denies palpitations. She denies bilateral lower extremity edema. She denies claudication. She states shortness of breath with activity and intermittent orthopnea. She wears 2 liters of O2 at night. She denies shortness of breath at rest or PND. She denies chronic cough. She denies significant, sudden weight gain. She denies lightheadedness, dizziness, near-syncope, or syncope. She denies blood in urine or blood in stool. She states one episode of epistaxis. He denies fever with chills. She denies myalgia. She denies fatigue. Her exercise level has remained stable. Intake Vital Signs 11/14/24 10:50 11/30/24 09:52 12/06/24 15:48 Height 5 ft 3 in 5 ft 3 in 5 ft 3 in Weight: 148 lb 157 lb BMI 26.2 27.8 BP 99/67 118/76 Blood Pressure Location Rt brachial Lt brachial Position Sitting Sitting Respiration 16 18 Pulse 70 57 L Pulse Source Monitor Monitor Temp 97.1 F L Temperature Source Temporal Artery Pulse Oximetry (%) 97 96 Oxygen Delivery Method room air Intake Visit Reasons: SURGICAL CLEARANCE Ux Consultant Required: No Is patient in pain?: No Allergies Iodinated Contrast Media (Iodinated Contrast Media - IV Dye) Allergy (Verified 12/06/24 15:48) Hives mesalamine (From Asacol) Allergy (Verified 12/06/24 15:48) GASTRIC HEMORRHAGE tetracycline (Tetracycline) Allergy (Verified 12/06/24 15:48) Hives pravastatin Adverse Reaction (Intermediate, Verified 12/06/24 15:48) Upset Stomach atorvastatin (From Lipitor) Adverse Reaction (Verified 12/06/24 15:48) myalgia Medications ???Medication ???Instructions ???Recorded ???Confirmed ???Type omeprazole 20 mg capsule,delayed 20 mg PO DAILY acid reflux 6 12/06/24 History release albuterol sulfate 90 mcg/actuation 1 puff inhalation Q6H PRN Sob / Or 07/28/20 12/06/24 History aerosol inhaler Wheezing ipratropium 0.5 mg-albuterol 3 mg 3 ml inhalation Q4H PRN shortness 12/29/20 12/06/24 Rx (2.5 mg base)/3 mL nebulization of breath or wheezing #180 mL soln nebulizer and compressor #1 ea 06/11/22 11/30/24 Rx primidone 50 mg tablet 150 mg PO QHS seizures 30 days #90 01/10/24 12/06/24 History tabs prazosin 2 mg capsule 2 mg PO QHS blood pressure 4 12/06/24 History budesonide 1 mg/2 mL suspension 1 mg (2 mL) inhalation BID 4 12/06/24 Rx for nebulization BREATHING #60 mL nitroglycerin 0.4 mg sublingual 0.4 mg sublingual Q5M PRN Chest 12/06/24 Rx tablet Pain #25 tabs metoprolol succinate 25 mg 12.5 mg (1/2 x 25 mg) PO DAILY 06/3012/06/24 Rx tablet,extended release 24 hr blood pressure #45 TABLETS furosemide 20 mg tablet (Lasix) 20 mg PO BID diuretic 10/16/24 History sertraline 100 mg tablet 150 mg PO DAILY mood 10/16/2411/09 History Have you fallen in the past year?: No [facility] Medical History Anemia Anxiety GERD (gastroesophageal reflux disease) Lung cancer Atherosclerotic heart disease of [place] coronary artery with unstable angina pectoris Congestive heart failure History of COPD Angina of effort Myocardial infarction, silent Ad (more content not included)... Normal [facility] Abdomen/Pelvis WITH Contrast on 12-04-2024 Abdomen/Pelvis WITH Contrast [facility] [address] [place] [id number] Abdomen/Pelvis WITH Contrast MR#: [id number] Acct: [id number] Name: SEANDARRELHALEIGH J Rep #: [id number] : 1955 F 69 From: Reji Glover DO PCP: Dr. Radha Odom MD Status: REG CLI Study: Abdomen/Pelvis WITH Contrast Date of Exam: Exam# [id number] Ordering Dr: Nivia Moore CUSTOM FURRIER- C PROCEDURE: ABDOMEN/PELVIS WITH CONTRAST REASON FOR EXAM: Right lower quadrant pain. Diarrhea TECHNIQUE: Abdomen and pelvis CT with intravenous contrast following the oral administration of contrast material. COMPARISON: 06/09/2023 FINDINGS: Lung bases: Trace atelectasis or scarring within the lingula. Remaining lung bases otherwise appears clear. Liver: Homogeneous enhancement of the liver. Slight micronodularity involving the surface of the liver, which could be seen with cirrhosis. Gallbladder: Surgically absent. Spleen: Homogeneous enhancement. Pancreas: No enhancing masses or peripancreatic inflammatory changes. Adrenals: 1.6 x 1.1 cm adrenal nodule on the left. No adrenal masses are seen on the right. Kidneys: Kidneys enhance symmetrically. 3 mm nonobstructing calculus within the superior pole of the right kidney. No obstructing calculi are seen. No hydronephrosis bilaterally. Bladder: Mild to moderate distention. No bladder calculi are seen. Reproductive Organs: Uterus appears surgically absent. Bowel: No bowel obstruction. Mild amounts of fecal retention. Appendix appears surgically absent. Left colon is predominantly decompressed. No pericolonic inflammatory changes. Lymph nodes: No suspicious lymph node enlargement. Vasculature: Mild vascular calcifications and plaque formation within the abdominal aorta and iliac arteries. Peritoneum / Retroperitoneum: No free air. No drainable fluid collections. Bones: Unremarkable. CT/Abdomen/Pelvis WITH Contrast IMPRESSION: 1. 1.6 x 1.1 cm adrenal nodule on the left. Consider nonemergent MRI for further characterization. 2. 3 mm nonobstructing calculus within the superior pole of the right kidney. Negative for obstructive uropathy bilaterally. 3. No bowel obstruction. Mild amounts of fecal retention. 4. Micronodularity involving the surface of the liver, which could be seen with cirrhosis. 5. Additional findings, as detailed above. One or more dose reduction techniques were used (e.g., Automated exposure control, adjustment of the mA and/or kV according to patient size, use of iterative reconstruction technique). Reading Location: [facility] CC: MT Moore; Dr. Radha Odom MD Business Integration Manager: Signed Normal [facility] Radiation Oncology Visiton 0 11-30-2024 Radiation Oncology Visit [facility] [place] [address] OFFICE VISIT Date of Service: 11/30/24 0943 MR#: [id number] Acct: [id number] Name: HALEIGH ALMEIDA Rep #: [id number] : 1955 From: Honorio Rhodes DO Age/Sex: 69/F Location: [facility] Status: Signed Intake Vital Signs 10/17/24 14:00 11/14/24 10:50 11/30/24 09:48 11/30/24 09:52 Height 5 ft 3 in 5 ft 3 in 5 ft 3 in 5 ft 3 in Weight: 148 lb 8 oz 148 lb BMI 26.3 26.2 BP 136/85 H 99/67 Blood Pressure Location Rt brachial Position Sitting Respiration 16 16 Pulse 72 70 Pulse Source Monitor Temp 97.1 F L Temperature Source Temporal Artery Pulse Oximetry (%) 96 97 Oxygen Delivery Method room air room air Intake Visit Reasons: REVIEW CT SCAN Chief Complaint: ED F/U shortness of breath, chest pain Is patient in pain?: No Allergies Iodinated Contrast Media (Iodinated Contrast Media - IV Dye) Allergy (Verified 11/30/24 09:49) Hives mesalamine (From Asacol) Allergy (Verified 11/30/24 09:49) GASTRIC HEMORRHAGE tetracycline (Tetracycline) Allergy (Verified 11/30/24 09:49) Hives pravastatin Adverse Reaction (Intermediate, Verified 11/30/24 09:49) Upset Stomach atorvastatin (From Lipitor) Adverse Reaction (Verified 11/30/24 09:49) myalgia Medications ???Medication ???Instructions ???Recorded ???Confirmed ???Type omeprazole 20 mg capsule,delayed 20 mg PO DAILY acid reflux 02/04/16 11/30/24 History release albuterol sulfate 90 mcg/actuation 1 puff inhalation Q6H PRN Sob /Or 07/28/20 11/30/24 History aerosol inhaler Wheezing ipratropium 0.5 mg-albuterol 3 mg 3 ml inhalation Q4H PRN shortness 12/29/20 11/30/24 Rx (2.5 mg base)/3 mL nebulization of breath or wheezing #180 mL soln nebulizer and compressor #1 ea 06/11/22 11/30/24 Rx primidone 50 mg tablet 150 mg PO QHS seizures 30 days #90 01/10/24 11/30/24 History tabs prazosin 2 mg capsule 2 mg PO QHS blood pressure 01/12/24 11/30/24 History budesonide 1 mg/2 mL suspension 1 mg (2 mL) inhalation BID 02/03/24 11/30/24 Rx for nebulization BREATHING #60 mL nitroglycerin 0.4 mg sublingual 0.4 mg sublingual Q5M PRN Chest 02/08/24 11/30/24 Rx tablet Pain #25 tabs metoprolol succinate 25 mg 12.5 mg (1/2 x 25 mg) PO DAILY 02/13/24 11/30/24 Rx tablet,extended release 24 hr blood pressure #45 TABLETS furosemide 20 mg tablet (Lasix) 20 mg PO BID diuretic 10/16/24 11/30/24 History sertraline 100 mg tablet 150 mg PO DAILY mood 10/16/24 11/30/24 History ferrous sulfate 324 mg (65 mg 324 mg PO QODAY #30 tabs 10/18/24 11/30/24 Rx iron) tablet,delayed release ascorbic acid (vitamin C) 500 mg 500 mg PO .QOD #45 caps 11/14/24 11/30/24 Rx capsule diphenhydramine HCl 50 mg tablet 50 mg PO .1h prior to CT PRN CT 11/14/24 11/30/24 Rx (Benadryl Allergy) contrast prophylaxis #1 TAB famotidine 20 mg tablet (Pepcid) 20 mg PO .1h prior to CT CT 11/14/24 11/30/24 Rx contrast prophylaxis #1 TAB prednisone 20 mg tablet 40 mg (2 x 20 mg) PO QDAY CT 11/14/24 11/30/24 Rx contrast prophylaxis #6 tabs Have you fallen in the past year?: No PFSH PFSH Medical History Anemia Anxiety GERD (gastroesophageal reflux disease) Lung cancer Atherosclerotic heart disease of [place] coronary artery with unstable angina pectoris Congestive heart failure History of COPD Angina of effort Myocardial infarction, silent Adenocarcinoma of lung, stage 1 Lung cancer Melanoma Pure hypercholesterolemia Worsening angina Chest pain, unspecified HOWARD (obstructive sleep apnea) Osteoarthritis DDD (degenerative disc disease) Premature ventricular contraction Pericardial effusion Atherosclerotic heart disease of [place] coronary artery without angina pectoris Nonrheumatic mitral (valve) prolapse Tobacco abuse Essential hypertension Home Medications ???Medication ???Instructions ???Recorded ???Last Taken ???Type omeprazole 20 mg capsule,delayed 20 mg PO DAILY acid reflux 02/04/16 06/13/22 History release albuterol sulfate 90 mcg/actuation 1 puff inhalation Q6H PRN Sob /Or 07/28/20 06/14/22 History aerosol inhaler Wheezing ipratropium 0.5 mg-albuterol 3 mg 3 ml inhalation Q4H PRN shortness 12/29/20 06/08/22 Rx (2.5 mg base)/3 mL nebulization of breath or wheezing #180 mL soln nebulizer and compressor #1 ea 06/11/22 Unknown Rx primidone 50 mg tablet 150 mg PO QHS seizures 30 days #90 01/10/24 Unknown History tabs prazosin 2 mg capsule 2 mg PO QHS blood pressure 01/12/24 Unknown History budesonide 1 mg/2 mL suspension 1 mg (2 mL) inhalation BID 02/03/24 Unknown Rx for nebulization BREATHING #60 mL nitroglycerin 0.4 mg sublingual 0.4 mg sublingual Q5M PRN Chest 02/08/24 Unknown Rx tablet Destiny (more content not included)... Normal [facility] Chest without Contraston Chest without Contrast [facility] [address] [place] [address] Chest without Contrast MR#: [id number] Acct: [id number] Name: HALEIGH ALMEIDA Rep #: [id number] : 1955 F 69 From: Georgi fraser DO PCP: Dr. Radha Odom MD Status: [facility] Study: Chest without Contrast Date of Exam: 11/28/24 Exam# [id number] Ordering Dr: Honorio Rhodes DO [id number] EXAM: CT CHEST WITHOUT INTRAVENOUS CONTRAST CLINICAL INDICATION: treated lung cancer -- monitoring, please compare to prior TECHNIQUE: Helically acquired images were obtained of the chest without intravenous contrast. This CT exam was performed using one or more of the following dose reduction techniques: automated exposure control, adjustment of the mA and/or kV according to patient size, and/or use of iterative reconstruction technique. COMPARISON: 05/18/2024 FINDINGS: LUNGS AND PLEURAL SPACES: Mild centrilobular emphysema. Scarring in the periphery of the right lung is again identified with similar appearance to prior examination to include areas of bronchiectasis and/or bronchograms as well as curvilinear hyperdensity which may be due to postoperative change or other treatment changes. Pleural-based nodules in the right middle lobe are again identified similar to the prior examination. No pneumothorax. HEART: Status post CABG. Coronary artery calcifications. No cardiomegaly or pericardial effusion. MEDIASTINUM: Mediastinal lymphadenopathy is similar to the prior CT examination. Esophagus is unremarkable. No hiatal hernia. THYROID: No significant abnormality. No thyroid lesions. BONES/JOINTS: Median sternotomy. Postoperative changes in the cervical spine are partially visualized. No suspicious lytic or blastic abnormality. VASCULATURE: Atherosclerosis of the aorta and its branch vessels. Thoracic aorta is non-dilated. GALLBLADDER AND BILE DUCTS: Status post cholecystectomy. CT/Chest without Contrast IMPRESSION: 1. Mediastinal lymphadenopathy is similar to the prior CT examination. 2. Scarring in the periphery of the right lung is again identified with similar appearance to prior examination to include areas of bronchiectasis and/or bronchograms as well as curvilinear hyperdensity which may be due to postoperative change or other treatment changes. 3. Pleural-based nodules in the right middle lobe are again identified similar to the prior examination. 4. Mild centrilobular emphysema. NOTE: Emphysema on CT is an independent risk factor for lung cancer. Consider low dose CT for lung cancer screening between the ages of 50 and 77. 5. Status post CABG. Coronary artery calcifications. No cardiomegaly or pericardial effusion. Electronically Signed: Georgi Cordova DO at 20:38 EST , CC: Dr. Radha Odom MD; Dr. Honorio Rhodes DO Business Integration Manager: Signed Normal [facility] CBC W/Diff, Automatedon Anisocytosis Ql (Bld) 1+ Normal [facility] Comment on above: Performed By: #### L 503.6067, L100.0100, L503.2950, L503.4450 #### [facility] [address] [place], [address] Ferritinon 11-14-2024 Ferritin [Mass/Vol] 61 ng/mL Normal 8-252 [facility] Comment on above: Performed By: #### L 503.6075, L100.0100, L503.8603, L503.1821 #### [facility] [address] [place], [address] Gastroenterology Visit Repor ton 11-14-2024 Gastroenterology Visit Report [facility] [address] [place] [address] OFFICE VISIT Date of Service: 11/14/24 MR#: [id number] Acct: [id number] Name: HALEIGH ALMEIDA Rep #: [id number] : 1955 Provider: MT dobbins Age/Sex: 69/F Location[place] [facility] Status: Signed Intake Vital Signs 10/17/24 14:00 11/14/24 10:50 Height 5 ft 3 in 5 ft 3 in Weight: 148 lb 8 oz BMI 26.3 BP 136/85 H Respiration 16 Pulse 72 Pulse Oximetry (%) 96 Oxygen Delivery Method room air Intake Visit Reasons: Hospital FU Chief Complaint: ED F/U shortness of breath, chest pain Ux Consultant Required: No Accompanied by: Daughter Is patient in pain?: No Allergies Iodinated Contrast Media (Iodinated Contrast Media - IV Dye) Allergy (Verified 11/14/24 10:45) Hives mesalamine (From Asacol) Allergy (Verified 11/14/24 10:45) GASTRIC HEMORRHAGE tetracycline (Tetracycline) Allergy (Verified 11/14/24 10:45) Hives pravastatin Adverse Reaction (Intermediate, Verified 11/14/24 10:45) Upset Stomach atorvastatin (From Lipitor) Adverse Reaction (Verified 11/14/24 10:45) myalgia Medications ???Medication ???Instructions ???Recorded ???Confirmed ???Type omeprazole 20 mg capsule,delayed 20 mg PO DAILY acid reflux 02/04/16 11/14/24 History release albuterol sulfate 90 mcg/actuation 1 puff inhalation Q6H PRN Sob /Or 07/28/20 11/14/24 History aerosol inhaler Wheezing ipratropium 0.5 mg-albuterol 3 mg 3 ml inhalation Q4H PRN shortness 12/29/20 11/14/24 Rx (2.5 mg base)/3 mL nebulization of breath or wheezing #180 mL soln nebulizer and compressor #1 ea 06/11/22 11/14/24 Rx primidone 50 mg tablet 150 mg PO QHS seizures 30 days #90 01/10/24 11/14/24 History tabs prazosin 2 mg capsule 2 mg PO QHS blood pressure 01/12/24 11/14/24 History budesonide 1 mg/2 mL suspension 1 mg (2 mL) inhalation BID 02/03/24 11/14/24 Rx for nebulization BREATHING #60 mL nitroglycerin 0.4 mg sublingual 0.4 mg sublingual Q5M PRN Chest 02/08/24 11/14/24 Rx tablet Pain #25 tabs metoprolol succinate 25 mg 12.5 mg (1/2 x 25 mg) PO DAILY 02/13/24 11/14/24 Rx tablet,extended release 24 hr blood pressure #45 TABLETS hydroxyzine HCl 25 mg tablet 50 mg PO BID itching 06/21/24 11/14/24 History furosemide 20 mg tablet (Lasix) 20 mg PO BID diuretic 10/16/24 11/14/24 History sertraline 100 mg tablet 150 mg PO DAILY mood 10/16/24 11/14/24 History ferrous sulfate 324 mg (65 mg 324 mg PO QODAY #30 tabs 10/18/24 11/14/24 Rx iron) tablet,delayed release ascorbic acid (vitamin C) 500 mg 500 mg PO .QOD #45 caps 11/14/24 11/14/24 Rx capsule diphenhydramine HCl 50 mg tablet 50 mg PO .1h prior to CT PRN CT 11/14/24 11/14/24 Rx (Benadryl Allergy) contrast prophylaxis #1 TAB famotidine 20 mg tablet (Pepcid) 20 mg PO .1h prior to CT CT 11/14/24 11/14/24 Rx contrast prophylaxis #1 TAB prednisone 20 mg tablet 40 mg (2 x 20 mg) PO QDAY CT 11/14/24 11/14/24 Rx contrast prophylaxis #6 tabs Have you fallen in the past year?: No Nurse's Note: Still having shortness of breath. Having more heartburn lately. Was in hospital ER for anemia. Dont know what caused it. [facility] Medical History Anemia Anxiety GERD (gastroesophageal reflux disease) Lung cancer Atherosclerotic heart disease of [place] coronary artery with unstable angina pectoris Congestive heart failure History of COPD Angina of effort Myocardial infarction, silent Adenocarcinoma of lung, stage 1 Lung cancer Melanoma Pure hypercholesterolemia Worsening angina Chest pain, unspecified HOWARD (obstructive sleep apnea) Osteoarthritis DDD (degenerative disc disease) Premature ventricular contraction Pericardial effusion Atherosclerotic heart disease of [place] coronary artery without angina pectoris Nonrheumatic mitral (valve) prolapse Tobacco abuse Essential hypertension Surgical History S/P partial lobectomy of lung interstim placement ( 08/05/20) Presence of coronary angioplasty implant and graft ( 03/12/18) History of cataract surgery History of abdominal surgery History of total hysterectomy History of cholecystectomy History of bowel resection Hx of appendectomy Presence of stent in coronary artery ( 06/15/22) Aortocoronary bypass status ( 05/12/04) Postsurgical percutaneous transluminal coronary angioplasty (PTCA) status ( 03/12/18) Family History Father Hypertension Colon cancer Alcoholism Mother Cancer LUNG CANCER/ SMOKER Father , MELANOMA No problems noted. Social History adopted: No housing: house number o (more content not included)... Normal [facility] Ironon 11-14-2024 Iron [Mass/Vol] 43 ug/dL Low 50-170 [facility] Comment on above: Performed By: #### L 503.6075, L100.0100, L503.6550, L503.6150 #### [facility] [address] [place], [address] Iron Binding Capacity,Totalo n 11-14-2024 TIBC 402 ug/dL Normal 250-450 [facility] Comment on above: Performed By: #### L 503.6075, L100.0100, L503.6550, L503.6150 #### [facility] [address] [place], [address] CBC W/Diff, Automatedon 12-1 Absolute Neut Normal 2.0-7.7 [facility] Comment on above: Result Comment: Canc elled via OM: Order cancelled - Patient discharged Performed By: #### L 100.0100 #### [facility] [address] [place], [address] HCT Normal 37-47 [facility] Comment on above: Result Comment: Canc elled via OM: Order cancelled - Patient discharged Performed By: #### L 100.0100 #### [facility] [address] [place], [address] HGB Normal 12.0-15.0 [facility] Comment on above: Result Comment: Canc elled via OM: Order cancelled - Patient discharged Performed By: #### L 100.0100 #### [facility] [address] [place], [address] MCH Normal 27.0-32.0 [facility] Comment on above: Result Comment: Canc elled via OM: Order cancelled - Patient discharged Performed By: #### L 100.0100 #### [facility] [address] [place], [address] MCHC Normal 32-36 [facility] Comment on above: Result Comment: Canc elled via OM: Order cancelled - Patient discharged Performed By: #### L 100.0100 #### [facility] [address] [place], [address] MCV Normal 81-99 [facility] Comment on above: Result Comment: Canc elled via OM: Order cancelled - Patient discharged Performed By: #### L 100.0100 #### [facility] [address] [place], [address] NEUT% Normal 47-70 [facility] Comment on above: Result Comment: Canc elled via OM: Order cancelled - Patient discharged Performed By: #### L 100.0100 #### [facility] [address] [place], [address] PLT Normal 150-450 [facility] Comment on above: Result Comment: Canc elled via OM: Order cancelled - Patient discharged Performed By: #### L 100.0100 #### [facility] [address] [place], [address] RBC Normal 4.2-5.4 [facility] Comment on above: Result Comment: Canc elled via OM: Order cancelled - Patient discharged Performed By: #### L 100.0100 #### [facility] [address] [place], [address] RDW CV Normal 11.6-14.6 [facility] Comment on above: Result Comment: Canc elled via OM: Order cancelled - Patient discharged Performed By: #### L 100.0100 #### [facility] [address] [place], [address] RDW SD Normal 35.1-43.9 [facility] Comment on above: Result Comment: Canc elled via OM: Order cancelled - Patient discharged Performed By: #### L 100.0100 #### [facility] [address] [place], [address] WBC Normal 4.4-11.0 [facility] Comment on above: Result Comment: Canc elled via OM: Order cancelled - Patient discharged Performed By: #### L 100.0100 #### [facility] [address] [place], [address] CBC W/Diff, Automatedon 12-1 2-2024 Absolute Lymph 0.84 X10 3/uL Normal 0.83-4.51 [facility] Comment on above: Performed By: #### L 503.6075, L100.0100, L503.6550, L503.6150 #### [facility] [address] [place], [address] Absolute Neut 10.9 X10 3/uL High 2.0-7.7 [facility] Comment on above: Performed By: #### L 503.6075, L100.0100, L503.6550, L503.6150 #### [facility] [address] [place], [address] Basophils/100 WBC (Bld) 0.1 % Normal 0-1 [facility] Comment on above: Performed By: #### L 503.6075, L100.0100, L503.6550, L503.6150 #### [facility] [address] [place], [address] Eosinophils/100 WBC (Bld) 0.0 % Normal 0-5 [facility] Comment on above: Performed By: #### L 503.6075, L100.0100, L503.6550, L503.6150 #### [facility] [address] [place], [address] Erythrocyte distribution width (RBC) [Ratio] 20.3 % High 11.6-14.6 [facility] Comment on above: Performed By: #### L 503.6075, L100.0100, L503.6550, L503.6150 #### [facility] [address] [place], [address] Hematocrit (Bld) [Volume fraction] 29.8 % Low 37-47 [facility] Comment on above: Performed By: #### L 503.6075, L100.0100, L503.6550, L503.6150 #### [facility] [address] [place], [address] Hemoglobin (Bld) [Mass/Vol] 8.6 g/dL Low 12.0-15.0 [facility] Comment on above: Performed By: #### L 503.6075, L100.0100, L503.6550, L503.6150 #### [facility] [address] [place], [address] IG% 1.200 High 0.0-0.9 [facility] Comment on above: Result Comment: IG% - Immature Granulocytes (promyelocytes, myelocytes and metamyelocytes) > 1% indicates that a LEFT SHIFT is Present. Performed By: #### L 503.6075, L100.0100, L503.6550, L503.6150 #### [facility] [address] [place], [address] Lymphocytes/100 WBC (Bld) 7.0 % Low 19-41 [facility] Comment on above: Performed By: #### L 503.6075, L100.0100, L503.6550, L503.6150 #### [facility] [address] [place], [address] MCH (RBC) [Entitic mass] 20.3 pg Low 27.0-32.0 [facility] Comment on above: Performed By: #### L 503.6075, L100.0100, L503.6550, L503.6150 #### [facility] [address] [place], [address] MCHC (RBC) [Mass/Vol] 28.9 g/dL Low 32-36 [facility] Comment on above: Performed By: #### L 503.6075, L100.0100, L503.6550, L503.6150 #### [facility] [address] [place], [address] MCV (RBC) [Entitic vol] 70.4 fL Low 81-99 [facility] Comment on above: Performed By: #### L 503.6075, L100.0100, L503.6550, L503.6150 #### [facility] [address] [place], [address] Monocytes/100 WBC (Bld) 1.7 % Normal 0-10 [facility] Comment on above: Performed By: #### L 503.6075, L100.0100, L503.6550, L503.6150 #### [facility] [address] [place], [address] Neutrophils/100 WBC (Bld) 90.0 % High 47-70 [facility] Comment on above: Performed By: #### L 503.6075, L100.0100, L503.6550, L503.6150 #### [facility] [address] [place], [address] Nucleated RBC (Bld) [#/Vol] 0 10*3/uL Normal 0-5 [facility] Comment on above: Performed By: #### L 503.6075, L100.0100, L503.6550, L503.6150 #### [facility] [address] [place], [address] Platelet mean volume (Bld) [Entitic vol] 10.0 fL Normal 6.2-12.0 [facility] Comment on above: Performed By: #### L 503.6075, L100.0100, L503.6550, L503.6150 #### [facility] [address] [place], [address] Platelets (Bld) [#/Vol] 219 10*3/uL Normal 150-450 [facility] Comment on above: Performed By: #### L 503.6075, L100.0100, L503.6550, L503.6150 #### [facility] [address] [place], [address] RBC (Bld) [#/Vol] 4.23 10*6/uL Normal 4.2-5.4 [facility] Comment on above: Performed By: #### L 503.6075, L100.0100, L503.6550, L503.6150 #### [facility] [address] [place], [address] RDW SD 50.3 fl High 35.1-43.9 [facility] Comment on above: Performed By: #### L 503.6075, L100.0100, L503.6550, L503.6150 #### [facility] [address] [place], [address] WBC (Bld) [#/Vol] 12.1 10*3/uL High 4.4-11.0 [facility] Comment on above: Performed By: #### L 503.6075, L100.0100, L503.6550, L503.6150 #### [facility] [address] [place], [address] BRCon 10-17-2024 RC Normal [facility] Comment on above: Result Comment: [id number] AP RC TRANSFUSED 10/17/24 1314 Performed By: #### B , [facility] ####[facility] [id number] [place], [address] CBC W/Diff, Automatedon 10-07 Absolute Lymph 0.78 X10 3/uL Low 0.83-4.51 [facility] Comment on above: Performed By: #### L 503.6075, L100.0100, L503.6550, L503.6150 #### [facility] [address] [place], [address] Absolute Neut 5.6 X10 3/uL Normal 2.0-7.7 [facility] Comment on above: Performed By: #### L 503.6075, L100.0100, L503.6550, L503.6150 #### [facility] [address] [place], [address] Basophils/100 WBC (Bld) 0.2 % Normal 0-1 [facility] Comment on above: Performed By: #### L 503.6075, L100.0100, L503.6550, L503.6150 #### [facility] [address] [place], [address] Eosinophils/100 WBC (Bld) 0.0 % Normal 0-5 [facility] Comment on above: Performed By: #### L 503.6075, L100.0100, L503.6550, L503.6150 #### [facility] [address] [place], [address] Erythrocyte distribution width (RBC) [Ratio] 18.8 % High 11.6-14.6 [facility] Comment on above: Performed By: #### L 503.6075, L100.0100, L503.6550, L503.6150 #### [facility] [address] [place], [address] Hematocrit (Bld) [Volume fraction] 23.3 % Low 37-47 [facility] Comment on above: Performed By: #### L 503.6075, L100.0100, L503.6550, L503.6150 #### [facility] [address] [place], [address] Hemoglobin (Bld) [Mass/Vol] 6.3 g/dL Low 12.0-15.0 [facility] Comment on above: Performed By: #### L 503.6075, L100.0100, L503.6550, L503.6150 #### [facility] [address] [place], [address] IG% 0.600 Normal 0.0-0.9 [facility] Comment on above: Result Comment: IG% - Immature Granulocytes (promyelocytes, myelocytes and metamyelocytes) > 1% indicates that a LEFT SHIFT is Present. Performed By: #### L 503.6075, L100.0100, L503.6550, L503.6150 #### [facility] [address] [place], [address] Lymphocytes/100 WBC (Bld) 11.7 % Low 19-41 [facility] Comment on above: Performed By: #### L 503.6075, L100.0100, L503.6550, L503.6150 #### [facility] [address] [place], [address] MCH (RBC) [Entitic mass] 18.5 pg Low 27.0-32.0 [facility] Comment on above: Performed By: #### L 503.6075, L100.0100, L503.6550, L503.6150 #### [facility] [address] [place], [address] MCHC (RBC) [Mass/Vol] 27.0 g/dL Low 32-36 [facility] Comment on above: Performed By: #### L 503.6075, L100.0100, L503.6550, L503.6150 #### [facility] [address] [place], [address] MCV (RBC) [Entitic vol] 68.3 fL Low 81-99 [facility] Comment on above: Performed By: #### L 503.6075, L100.0100, L503.6550, L503.6150 #### [facility] [address] [place], [address] Monocytes/100 WBC (Bld) 2.9 % Normal 0-10 [facility] Comment on above: Performed By: #### L 503.6075, L100.0100, L503.6550, L503.6150 #### [facility] [address] [place], [address] Neutrophils/100 WBC (Bld) 84.6 % High 47-70 [facility] Comment on above: Performed By: #### L 503.6075, L100.0100, L503.6550, L503.6150 #### [facility] [address] [place], [address] Nucleated RBC (Bld) [#/Vol] 0 10*3/uL Normal 0-5 [facility] Comment on above: Performed By: #### L 503.6075, L100.0100, L503.6550, L503.6150 #### [facility] [address] [place], [address] Platelet mean volume (Bld) [Entitic vol] 10.0 fL Normal 6.2-12.0 [facility] Comment on above: Performed By: #### L 503.6075, L100.0100, L503.6550, L503.6150 #### [facility] [address] [place], [address] Platelets (Bld) [#/Vol] 167 10*3/uL Normal 150-450 [facility] Comment on above: Performed By: #### L 503.6075, L100.0100, L503.6550, L503.6150 #### [facility] [address] [place], [address] RBC (Bld) [#/Vol] 3.41 10*6/uL Low 4.2-5.4 [facility] Comment on above: Performed By: #### L 503.6075, L100.0100, L503.6550, L503.6150 #### [facility] [address] [place], [address] RDW SD 46.2 fl High 35.1-43.9 [facility] Comment on above: Performed By: #### L 503.6075, L100.0100, L503.6550, L503.6150 #### [facility] [address] [place], [address] WBC (Bld) [#/Vol] 6.6 10*3/uL Normal 4.4-11.0 [facility] Comment on above: Performed By: #### L 503.6075, L100.0100, L503.6550, L503.6150 #### [facility] [address] [place], [address] [facility] Albumin [Mass/Vol] 3.0 g/dL Low 3.2-5.0 [facility] Comment on above: Performed By: #### L 503.6075, L100.0100, L503.6550, L503.6150 #### [facility] [address] [place], [address] Albumin/Globulin [Mass ratio] 0.8 {ratio} Low 0.9-2.4 [facility] Comment on above: Performed By: #### L 503.6075, L100.0100, L503.6550, L503.6150 #### [facility] [address] [place], [address] ALK P 60 U/L Normal 45-117 [facility] Comment on above: Performed By: #### L 503.6075, L100.0100, L503.6550, L503.6150 #### [facility] [address] [place], [address] ALT [Catalytic activity/Vol] 13 U/L Normal 13-56 [facility] Comment on above: Performed By: #### L 503.6075, L100.0100, L503.6550, L503.6150 #### [facility] [address] [place], [address] AST [Catalytic activity/Vol] 11 U/L Low 15-37 [facility] Comment on above: Performed By: #### L 503.6075, L100.0100, L503.6550, L503.6150 #### [facility] [address] [place], [address] Bilirubin [Mass/Vol] 0.40 mg/dL Normal 0.20-1.00 [facility] Comment on above: Result Comment: For patients on eltrombopag therapy, use of Dimension Aspen TBIL is not recommended. Performed By: #### L 503.6075, L100.0100, L503.6550, L503.6150 #### [facility] [address] [place], [address] BUN/CRE 17.6 RATIO Normal 10-20 [facility] Comment on above: Performed By: #### L 503.6075, L100.0100, L503.6550, L503.6150 #### [facility] [address] [place], [address] CA,Total 8.9 mg/dL Normal 8.5-10.1 [facility] Comment on above: Performed By: #### L 503.6075, L100.0100, L503.6550, L503.6150 #### [facility] [address] [place], [address] Chloride [Moles/Vol] 105 mmol/L Normal 98-107 [facility] Comment on above: Performed By: #### L 503.6075, L100.0100, L503.6550, L503.6150 #### [facility] [address] [place], [address] CO2 [Moles/Vol] 24.0 mmol/L Normal 21.0-32.0 [facility] Comment on above: Performed By: #### L 503.6075, L100.0100, L503.6550, L503.6150 #### [facility] [address] [place], [address] Creatinine [Mass/Vol] 1.02 mg/dL Normal 0.55-1.02 [facility] Comment on above: Result Comment: The validity of the calculated GFR GFRAA in patients over 70 years has not been determined. Clinical correlation is essential. Performed By: #### L 503.6075, L100.0100, L503.6550, L503.6150 #### [facility] [address] [place], [address] ECRCL 48.79 ml/min Normal [facility] Comment on above: Performed By: #### L 503.6075, L100.0100, L503.6550, L503.6150 #### [facility] [address] [place], [address] EST GFR - AA 69 mL/min Normal >60 [facility] Comment on above: Result Comment: Afri can Japanese GFR Calc Performed By: #### L 503.6075, L100.0100, L503.6550, L503.6150 #### [facility] [address] [place], [address] GAP 5 Normal 5-15 [facility] Comment on above: Performed By: #### L 503.6075, L100.0100, L503.6550, L503.6150 #### [facility] [address] [place], [address] GFR/1.73 sq M.predicted among non-blacks MDRD (S/P/Bld) [Vol rate/Area] 57 mL/min/{1.73_m2} Low >60 [facility] Comment on above: Result Comment: Non- GFR Calc Performed By: #### L 503.6075, L100.0100, L503.6550, L503.6150 #### [facility] [address] [place], [address] Globulin (S) [Mass/Vol] 3.8 g/dL Normal 2.2-4.2 [facility] Comment on above: Performed By: #### L 503.6075, L100.0100, L503.6550, L503.6150 #### [facility] [address] [place], [address] Glucose [Mass/Vol] 129 mg/dL High 74-106 [facility] Comment on above: Result Comment: Fast ing Glucose result greater than or equal to 126 mg/dL suggests DIABETES MELLITUS per A.D.A. criteria. Performed By: #### L 503.6075, L100.0100, L503.6550, L503.6150 #### [facility] [address] [place], [address] Potassium [Moles/Vol] 4.4 mmol/L Normal 3.5-5.1 [facility] Comment on above: Performed By: #### L 503.6075, L100.0100, L503.6550, L503.6150 #### [facility] [address] [place], [address] Sodium [Moles/Vol] 134 mmol/L Low 136-145 [facility] Comment on above: Performed By: #### L 503.6075, L100.0100, L503.6550, L503.6150 #### [facility] [address] [place], [address] T PROT 6.8 g/dL Normal 6.4-8.2 [facility] Comment on above: Performed By: #### L 503.6075, L100.0100, L503.6550, L503.6150 #### [facility] [address] [place], [address] Urea nitrogen [Mass/Vol] 18 mg/dL Normal 7-18 [facility] Comment on above: Performed By: #### L 503.6075, L100.0100, L503.6550, L503.6150 #### [facility] [address] [place], [address] Echo Completeon 10-17-2024 Echo Complete [facility] [address] [place] [address] Echo Complete 10/17/24 0857 MR#: [id number] Acct: [id number] Name: HALEIGH ALMEIDA Rep #: [id number] : 1955 69 From: Larry Burnham MD Attending Dr: Dr. Jevon Bustillo, DO Status: ADM IN Ordering Dr: Veronique Moulton MD Date: 10/17/24 Location: PCU Sex: F C Admitted: 10/16/24 Reason For Study: Elevated Troponins Procedure This was a 2D Doppler, Color Flow transthoracic echocardiogram. The study was technically difficult. Exam performed portable in patient room. Left Ventricle Normal LV size. Left ventricular systolic function is normal. The left ventricular ejection fraction is 60 %. No regional wall motion abnormalities noted. Right Ventricle Normal RV size. Normal systolic function. Atria The left atrium is moderately enlarged. Normal right atrium. Mitral Valve Bileaflet diffuse mitral valve thickening. The mitral papillary muscle appears thickened and/or calcified. Moderate (2+) eccentric mitral valve insufficiency. Tricuspid Valve Normal tricuspid valve. Mild (1+) tricuspid valve insufficiency. Pulmonary artery systolic pressure is 35 mmHg. Aortic Valve Trisinus/trileaflet aortic valve. Pulmonic Valve Normal pulmonic valve. Great Vessels Normal aortic root. The pulmonary artery is normal size. Inferior vena cava collapse with respiration. Pericardium/Pleural No pericardial effusion. MMode/2D Measurements Calculations LVIDd: 5.4 cm IVSd: 1.0 cm LAV(MOD-bp): 81.1 ml LVIDs: 4.1 cm LVPWd: 1.1 cm LAV(MOD-bp) Indexed: 48.1 ml/m2 RVDd: 3.7 cm FS: 23.1 % LAV(MOD-sp2): 69.4 ml LAV(MOD-sp4): 91.7 ml SV(MOD-sp4): 68.3 ml SV(sp4-el): 72.7 ml LVAd ap4: 33.5 cm2 LVLd ap4: 8.1 cm SI(MOD-sp4): 40.5 ml/m2 EDV(MOD-sp4): 110.7 ml EDV(sp4-el): 117.9 ml LVAs ap4: 19.8 cm2 LVLs ap4: 7.4 cm ESV(MOD-sp4): 42.4 ml ESV(sp4-el): 45.3 ml EF(MOD-sp4): 61.7 % EF(sp4-el): 61.6 % LA A4 area: 26.8 cm2 LA dimension(2D): 5.2 cm RA A4 area: 14.4 cm2 TAPSE: 1.3 cm Time Measurements MV dec time: 0.34 sec Doppler Measurements Calculations MV E max elisabeth: 229.9 cm/sec MV V2 max: 245.2 cm/sec MV P1/2t max elisabeth: 246.2 cm/sec MV A max elisabeth: 177.0 cm/sec MV max P.1 mmHg MV P1/2t: 116.1 msec MV E/A: 1.3 MV V2 mean: 166.1 cm/sec MV dec slope: 621.2 cm/sec2 MV mean P.3 mmHg MVA(P1/2t): 1.9 cm2 MV V2 VTI: 68.6 cm Ao V2 max: 186.1 cm/sec LV V1 max: 120.9 cm/sec MR max elisabeth: 514.2 cm/sec Ao max P.9 mmHg LV V1 max P.8 mmHg MR max P.8 mmHg Ao V2 mean: 127.4 cm/sec LV V1 mean P.0 mmHg MR mean elisabeth: 409.2 cm/sec Ao mean P.3 mmHg LV V1 mean: 80.6 cm/sec MR mean P.7 mmHg Ao V2 VTI: 38.0 cm LV V1 VTI: 28.6 cm MR VTI: 166.2 cm AV (velocity ratio): 0.75 PA V2 max: 106.3 cm/sec TR max elisabeth: 278.0 cm/sec PA V2 mean: 68.1 cm/sec TR max P.9 mmHg ECHO/Echo Complete Interpretation Summary Normal LV size. Left ventricular systolic function is normal. The left ventricular ejection fraction is 60 %. Moderate (2+) eccentric mitral valve insufficiency. Ordering Physician: Veronique Moulton Performed By: Hermelindo Javier RCS 10/17/24 1056 Date Larry Burnham MD CC: Dr. Veronique Moulton MD; Dr. Radha Odom MD; Dr. Jevon Bustillo DO Date Dictated: 10/17/24856 Date Transcribed: 10/17/241055 Business Integration Manager: Signed Normal [facility] L501.4020on 10-17-2024 TROPONIN-I HS 132 pg/mL Invalid Interpretation Code 3.0-54.0 [facility] Comment on above: Order Comment: 'TROP ' Serial specimen #1, #2 or #3: 3 Result Comment: Crit ical Result(s) Called at: 23:59:40 10/16/2024 by: Kaylyn Moraes. Results read back by same. Please Note: New Test Units and Gender Specific Reference Ranges. For more information see Policy Stat Procedure Aspen High Sensitivity Troponin (TNIH) and attachments. Performed By: #### L 503.6075, L100.0100, L503.6550, L503.6150 #### [facility] [address] [place], [address] Legionella Antigen Urineon 1 12-18-2023 LEGU URINE, RANDOM Legionella Antigen result interpretation: L pneumo Ag Ur Ql Negative Presumptive negative for Legionella pneumophila serogroup 1 antigen in urine, suggesting no recent or current infection. L pneumo Ag Ur Ql Legionella Ag, Urine Negative (See interpretation below) * This is an amended result. * A prior result that was reported as final has been changed. 10/19/24 0836 by KAVIN Normal [facility] Comment on above: Performed By: #### L 503.6075, L100.0100, L503.6550, L503.6150 #### [facility] [address] [place], [address] Lipid Profileon 10-17-2024 Cholesterol [Mass/Vol] 126 mg/dL Normal 200 [facility] Comment on above: Result Comment: <200 mg/dL Desirable 200-240 mg/dL Borderline >240 mg/dL High Risk Performed By: #### L 503.6075, L100.0100, L503.6550, L503.6150 #### [facility] [address] [place], [address] Cholesterol in HDL [Mass/Vol] 64 mg/dL Normal [facility] Comment on above: Result Comment: The drugs N-Acetylcysteine and Metamizole may falsely depress this assay. Reference Range HDL <40 mg/dL Low HDL Cholesterol HDL >or= 60 mg/dL High HDL Cholesterol Performed By: #### L 503.6075, L100.0100, L503.6550, L503.6150 #### [facility] [address] [place], [address] Cholesterol in LDL [Mass/Vol] 50 mg/dL Normal 0-130 [facility] Comment on above: Performed By: #### L 503.6075, L100.0100, L503.6550, L503.6150 #### [facility] [address] [place], [address] Cholesterol in VLDL [Mass/Vol] 12 mg/dL Normal 5-40 [facility] Comment on above: Performed By: #### L 503.6075, L100.0100, L503.6550, L503.6150 #### [facility] [address] [place], [place], [id number] Triglyceride [Mass/Vol] 61 mg/dL Normal [facility] Comment on above: Result Comment: The drugs N-Acetylcysteine and Metamizole may falsely depress this assay. Serum Triglycerides Reference Interval Normal <150 mg/dL Borderline high 150 - 199 mg/dL High 200 - 499 mg/dL Very High > or = 500 mg/dL Performed By: #### L 503.6075, L100.0100, L503.6550, L503.6150 #### [facility] [address] [place], [address] RESPIRATORY PANEL MOLECULARo n 10-17-2024 RP PANEL ADENOVIRUS Not Detected INFLUENZA A Not Detected INFLUENZA A (SUBTYPE H1) Not Detected INFLUENZA A (SUBTYPE H3) Not Detected INFLUENZA B Not Detected HUMAN METAPHNEUMO Not Detected PARAINFLUENZA 1 Not Detected PARAINFLUENZA 2 Not Detected PARAINFLUENZA 3 Not Detected PARAINFLUENZA 4 Not Detected RHINOVIRUS Not Detected RSV A Not Detected RSV B Not Detected Normal [facility] Comment on above: Performed By: #### L 503.6075, L100.0100, L503.6550, L503.6150 #### [facility] [address] [place], [address] Strep pneumoniae Antig(UR,CS F)on 10-17-2024 STPAG URINE, RANDOM URINE INTERPRETATION Strep pneumoniae Antig(UR,CSF) Negative Urine Presumptive negative for pneumococcal pneumonia, suggesting no current or recent pneumococcal infection. Infection due to S pneumoniae cannot be ruled out since the antigen present in the sample may be below the detection limit of the test. Strep pneumoniae Antig(UR,CSF) Strep pneumo Test Negative URINE (See interpretation below) * This is an amended result. * A prior result that was reported as final has been changed. 10/19/24 0837 by KAVIN [facility] Comment on above: Performed By: #### L 503.6075, L100.0100, L503.6550, L503.6150 #### [facility] [address] [place], [address] Type AND Screenon 10-17-2024 Ab SCREEN GEL Negative [facility] Comment on above: Order Comment: CMV N EG? NNumber of units to transfuse: 1Is pt's Hgb is = to 7.0 mg/dl or Hct </= 21%? YReason for Ordering Blood: ChronicAre the blood/blood products to be transfused? YIs the patient having/had surgery? NWhen ReadyNY Performed By: #### B TS, BRC ####[facility] [address] [place], [address] 12 Lead EKGon 10-16-2024 12 Lead EKG [facility] [address] [place] [address] 12 Lead EKG 10/16/24 1714 MR#: [id number] Acct: [id number] Name: HALEIGH ALMEIDA Rep #: [id number] : 1955 69 From: Larry Burnham MD Attending Dr: Dr. Jevon Bustillo, DO Status: DIS IN Ordering Dr: Veronique Moulton MD Date: 10/16/24 Location: [facility] Sex: F C Admitted: 10/16/24 Test Reason : SOB Blood Pressure : */* mmHG Vent. Rate : 82 BPM Atrial Rate : 82 BPM P-R Int : 164 ms QRS Dur : 96 ms QT Int : 396 ms P-R-T Axes : 46 1 40 degrees QTcB Int : 462 ms Normal sinus rhythm Normal ECG When compared with ECG of 22-Feb-2024 16:55, Sinus rhythm has replaced Electronic ventricular pacemaker Confirmed by JOSEPHINE CHOI, LARRY ([id number]), vending machine host/hostess TRENT CAM ([id number]) on 10/24/2024 2:47:01 PM Referred By: Confirmed By: LARRY BURNHAM MD 10/24/24 1447 Date Larry Burnham MD CC: Dr. Veronique Moulton MD; Dr. Radha Odom MD; Dr. Jevon Bustillo DO Signed [facility] 12 Lead EKG [facility] [address] [place] [address] 12 Lead EKG 10/16/24 2147 MR#: [id number] Acct: [id number] Name: HALEIGH ALMEIDA Rep #: [id number] : 1955 69 From: Larry Burnham MD Attending Dr: Dr. Jevon Bustillo DO Status: ADM IN Ordering Dr: Jevon Lindsay DO Date: 10/16/24 Location: [facility] Sex: F C Admitted: 10/16/24 Test Reason : CP ADMISSION Blood Pressure : */* mmHG Vent. Rate : 83 BPM Atrial Rate : 83 BPM P-R Int : 164 ms QRS Dur : 94 ms QT Int : 392 ms P-R-T Axes : 59 9 37 degrees QTcB Int : 460 ms Normal sinus rhythm Normal ECG When compared with ECG of 16-Oct-2024 17:14, MANUAL COMPARISON REQUIRED DATA IS UNCONFIRMED Confirmed by LARRY BURNHAM MD ([id number]), vending machine host/hostess BAR GUERRA ([id number]) on 10/17/2024 2:17:02 PM Referred By: KENNEY Confirmed By: LARRY BURNHAM MD 10/17/24 1417 Date Larry Burnham MD CC: Dr. Radha Odom MD; Dr. Jevon Bustillo DO; Dr. Jevon Lindsay DO Signed [facility] Basic Metabolic Profile (BMP )on 10-16-2024 BUN/CRE 10.9 RATIO Normal 10-20 [facility] Comment on above: Order Comment: 'TROP ' Serial specimen #1, #2 or #3: 1 Performed By: #### L 500.2500, L501.4020, L100.0100 ####[facility] [address] [place], [address] CA,Total 9.2 mg/dL Normal 8.5-10.1 [facility] Comment on above: Order Comment: 'TROP ' Serial specimen #1, #2 or #3: 1 Performed By: #### L 500.2500, L501.4020, L100.0100 ####[facility] [address] [place], [address] Chloride [Moles/Vol] 102 mmol/L Normal 98-107 [facility] Comment on above: Order Comment: 'TROP ' Serial specimen #1, #2 or #3: 1 Performed By: #### L 500.2500, L501.4020, L100.0100 ####[facility] [address] [place], [address] CO2 [Moles/Vol] 24.0 mmol/L Normal 21.0-32.0 [facility] Comment on above: Order Comment: 'TROP ' Serial specimen #1, #2 or #3: 1 Performed By: #### L 500.2500, L501.4020, L100.0100 ####[facility] [address] [place], [address] Creatinine [Mass/Vol] 1.01 mg/dL Normal 0.55-1.02 [facility] Comment on above: Order Comment: 'TROP ' Serial specimen #1, #2 or #3: 1 Result Comment: The validity of the calculated GFR GFRAA in patients over 70 years has not been determined. Clinical correlation is essential. Performed By: #### L 500.2500, L501.4020, L100.0100 ####[facility] [address] [place], [address] EST GFR - AA 70 mL/min Normal >60 [facility] Comment on above: Order Comment: 'TROP ' Serial specimen #1, #2 or #3: 1 Result Comment: Afri can Japanese GFR Calc Performed By: #### L 500.2500, L501.4020, L100.0100 ####[facility] [address] [place], [address] GAP 6 Normal 5-15 [facility] Comment on above: Order Comment: 'TROP ' Serial specimen #1, #2 or #3: 1 Performed By: #### L 500.2500, L501.4020, L100.0100 ####[facility] [address] [place], [address] GFR/1.73 sq M.predicted among non-blacks MDRD (S/P/Bld) [Vol rate/Area] 58 mL/min/{1.73_m2} Low >60 [facility] Comment on above: Order Comment: 'TROP ' Serial specimen #1, #2 or #3: 1 Result Comment: Non- GFR Calc Performed By: #### L 500.2500, L501.4020, L100.0100 ####[facility] [address] [place], [address] Glucose [Mass/Vol] 110 mg/dL High 74-106 [facility] Comment on above: Order Comment: 'TROP ' Serial specimen #1, #2 or #3: 1 Result Comment: Fast ing Glucose result from 100 to 125 mg/dL suggests IMPAIRED HOMEOSTASIS per A.D.A. criteria. Performed By: #### L 500.2500, L501.4020, L100.0100 ####[facility] [address] [place], [address] Potassium [Moles/Vol] 3.8 mmol/L Normal 3.5-5.1 [facility] Comment on above: Order Comment: 'TROP ' Serial specimen #1, #2 or #3: 1 Performed By: #### L 500.2500, L501.4020, L100.0100 ####[facility] [address] [place], [address] Sodium [Moles/Vol] 133 mmol/L Low 136-145 [facility] Comment on above: Order Comment: 'TROP ' Serial specimen #1, #2 or #3: 1 Performed By: #### L 500.2500, L501.4020, L100.0100 ####[facility] [address] [place], [address] Urea nitrogen [Mass/Vol] 11 mg/dL Normal 7-18 [facility] Comment on above: Order Comment: 'TROP ' Serial specimen #1, #2 or #3: 1 Performed By: #### L 500.2500, L501.4020, L100.0100 ####[facility] [address] [place], [address] CBC W/Diff, Automatedon 12-1 0-2024 Absolute Lymph 1.18 X10 3/uL Normal 0.83-4.51 [facility] Comment on above: Performed By: #### L 500.2500, L501.4020, L100.0100 #### [facility] [address] [place], [address] Absolute Neut 6.9 X10 3/uL Normal 2.0-7.7 [facility] Comment on above: Performed By: #### L 500.2500, L501.4020, L100.0100 #### [facility] [address] [place], [address] Basophils/100 WBC (Bld) 0.4 % Normal 0-1 [facility] Comment on above: Performed By: #### L 500.2500, L501.4020, L100.0100 #### [facility] [address] [place], [address] Eosinophils/100 WBC (Bld) 0.6 % Normal 0-5 [facility] Comment on above: Performed By: #### L 500.2500, L501.4020, L100.0100 #### [facility] [address] [place], [address] Erythrocyte distribution width (RBC) [Ratio] 18.7 % High 11.6-14.6 [facility] Comment on above: Performed By: #### L 500.2500, L501.4020, L100.0100 #### [facility] [address] [place], [address] Hematocrit (Bld) [Volume fraction] 24.8 % Low 37-47 [facility] Comment on above: Performed By: #### L 500.2500, L501.4020, L100.0100 #### [facility] [address] [place], [address] Hemoglobin (Bld) [Mass/Vol] 7.0 g/dL Low 12.0-15.0 [facility] Comment on above: Performed By: #### L 500.2500, L501.4020, L100.0100 #### [facility] [address] [place], [address] IG% 0.900 Normal 0.0-0.9 [facility] Comment on above: Result Comment: IG% - Immature Granulocytes (promyelocytes, myelocytes and metamyelocytes) > 1% indicates that a LEFT SHIFT is Present. Performed By: #### L 500.2500, L501.4020, L100.0100 #### [facility] [address] [place], [address] Lymphocytes/100 WBC (Bld) 12.8 % Low 19-41 [facility] Comment on above: Performed By: #### L 500.2500, L501.4020, L100.0100 #### [facility] [address] [place], [address] MCH (RBC) [Entitic mass] 18.9 pg Low 27.0-32.0 [facility] Comment on above: Performed By: #### L 500.2500, L501.4020, L100.0100 #### [facility] [address] [place], [address] MCHC (RBC) [Mass/Vol] 28.2 g/dL Low 32-36 [facility] Comment on above: Performed By: #### L 500.2500, L501.4020, L100.0100 #### [facility] [address] [place], [address] MCV (RBC) [Entitic vol] 67.0 fL Low 81-99 [facility] Comment on above: Performed By: #### L 500.2500, L501.4020, L100.0100 #### [facility] [address] [place], [address] Monocytes/100 WBC (Bld) 10.2 % High 0-10 [facility] Comment on above: Performed By: #### L 500.2500, L501.4020, L100.0100 #### [facility] [address] [place], [address] Neutrophils/100 WBC (Bld) 75.1 % High 47-70 [facility] Comment on above: Performed By: #### L 500.2500, L501.4020, L100.0100 #### [facility] [address] [place], [address] Nucleated RBC (Bld) [#/Vol] 0 10*3/uL Normal 0-5 [facility] Comment on above: Performed By: #### L 500.2500, L501.4020, L100.0100 #### [facility] [address] [place], [address] Platelet mean volume (Bld) [Entitic vol] 10.0 fL Normal 6.2-12.0 [facility] Comment on above: Performed By: #### L 500.2500, L501.4020, L100.0100 #### [facility] [address] [place], [address] Platelets (Bld) [#/Vol] 172 10*3/uL Normal 150-450 [facility] Comment on above: Performed By: #### L 500.2500, L501.4020, L100.0100 #### [facility] [address] [place], [address] RBC (Bld) [#/Vol] 3.70 10*6/uL Low 4.2-5.4 [facility] Comment on above: Performed By: #### L 500.2500, L501.4020, L100.0100 #### [facility] [address] [place], [address] RDW SD 44.3 fl High 35.1-43.9 [facility] Comment on above: Performed By: #### L 500.2500, L501.4020, L100.0100 #### [facility] [address] [place], [address] WBC (Bld) [#/Vol] 9.2 10*3/uL Normal 4.4-11.0 [facility] Comment on above: Performed By: #### L 500.2500, L501.4020, L100.0100 #### [facility] [address] [place], [address] Chest PA and Lateralon 10-16 Chest PA and Lateral [facility] [address] [place] [address] Chest PA and Lateral MR#: [id number] Acct: [id number] Name: HALEIGH ALMEIDA Rep #: [id number] : 1955 F 69 From: Nas burnette MD PCP: Dr. Radha Odom MD Status: REG ER Study: Chest PA and Lateral Date of Exam: 10/16/24 Exam# [id number] Ordering Dr: Jevon Lindsay DO [id number] STUDY: X-RAY CHEST REASON FOR EXAM: Female, 69 years old. Cough TECHNIQUE: Frontal and lateral views of the chest. COMPARISON: Chest x-ray 02/22/2024, CT scan 05/18/2024. FINDINGS: Grossly stable appearance and size of the spiculated 4.8 cm spiculated mass density along the lateral mid right pleural surface. The appearance is consistent with malignancy. No infiltrates. No effusion. There is mild cardiac enlargement. There has been CABG. Normal mediastinum and jenna. Normal visualized pulmonary arteries. Normal visualized aortic arch and descending thoracic aorta. Normal visualized thoracic spine. Normal visualized ribs, clavicles, and shoulders. There is no demonstrated abnormality of the visualized soft tissue structures of the upper abdomen. RAD/Chest PA and Lateral IMPRESSION: Grossly stable appearance and size of the spiculated 4.8 cm spiculated mass density along the lateral mid right pleural surface consistent with malignancy. Electronically Signed: Nas Montes De Oca MD at 18:11 EST , CC: Dr. Radha Odom MD; Dr. Jevon Lindsay DO Business Integration Manager: Signed Normal [facility] Emergency Department Summary on 10-16-2024 Emergency Department Summary [facility] Medical Records Department [address] [place] [id number] Emergency Department Summary 10/16/24 MR#: [id number] Acct: [id number] Name: HALEIGH ALMEIDA Rep #: [id number] : 1955 69 From: Jevon Lindsay DO PCP: Dr. Radha Odom MD Status:ADM IN Location: [address] History of Present Illness Chief Complaint: Cough Informant: patient Onset/Context/Timing Onset: Weeks (6) Context: Gradual Onset Timing: Continuous Quality: Sharp Location: Left lower chest Worsened by: Deep breathing Relieved by: Nothing Narrative Narrative: Patient presents with left lower chest pain, cough, shortness of breath that has been getting worse over the last 6 weeks. Patient states it is gradually getting worse. Patient describes her pain as sharp. Patient states the pain is over the left lower chest. Patient states it is worse with deep breathing. Patient states nothing seems to help with it. Patient states she is coughing up some green, yellow, and clear sputum. Patient states she had a fever initially, approximately 6 weeks ago but currently has not had any fevers over the past few weeks. [facility] Medical History Anxiety Atherosclerotic heart disease of [place] coronary artery with unstable angina pectoris Congestive heart failure History of COPD Anemia Angina of effort Myocardial infarction, silent Adenocarcinoma of lung, stage 1 Lung cancer Melanoma Pure hypercholesterolemia Worsening angina Chest pain, unspecified HOWARD (obstructive sleep apnea) Osteoarthritis DDD (degenerative disc disease) Premature ventricular contraction Pericardial effusion Atherosclerotic heart disease of [place] coronary artery without angina pectoris Nonrheumatic mitral (valve) prolapse Tobacco abuse Essential hypertension Home Medications ???Medication ???Instructions ???Recorded ???Last Taken ???Type omeprazole 20 mg capsule,delayed 20 mg PO DAILY acid reflux 02/04/16 06/13/22 History release albuterol sulfate 90 mcg/actuation 1 puff inhalation Q6H PRN Sob /Or 07/28/20 06/14/22 History aerosol inhaler Wheezing ipratropium 0.5 mg-albuterol 3 mg 3 ml inhalation Q4H PRN shortness 12/29/20 06/08/22 Rx (2.5 mg base)/3 mL nebulization of breath or wheezing #180 mL soln nebulizer and compressor #1 ea 06/11/22 Unknown Rx primidone 50 mg tablet 150 mg PO QHS seizures 30 days #90 01/10/24 Unknown History tabs prazosin 2 mg capsule 2 mg PO QHS 01/12/24 Unknown History budesonide 1 mg/2 mL suspension 1 mg (2 mL) inhalation BID #60 mL 02/03/24 Unknown Rx for nebulization nitroglycerin 0.4 mg sublingual 0.4 mg sublingual Q5M PRN Chest 02/08/24 Unknown Rx tablet Pain #25 tabs metoprolol succinate 25 mg 12.5 mg (1/2 x 25 mg) PO DAILY #45 02/13/24 Unknown Rx tablet,extended release 24 hr TABLETS hydroxyzine HCl 25 mg tablet 50 mg PO BID 06/21/24 Unknown History clonazepam 0.5 mg tablet 0.5 mg PO QHS PRN anxiety 10/16/24 Unknown History clopidogrel 75 mg tablet (Plavix) 75 mg PO DAILY 10/16/24 Unknown History furosemide 20 mg tablet (Lasix) 20 mg PO BID 10/16/24 Unknown History sertraline 100 mg tablet 150 mg PO DAILY mood 10/16/24 Unknown History Allergy/AdvReac Type Severity Reaction Status Date / Time Iodinated Contrast Media Allergy Hives Verified 10/16/24 16:24 (Iodinated Contrast Media - IV Dye) mesalamine (From Asacol) Allergy GASTRIC Verified 10/16/24 16:24 HEMORRHAGE tetracycline (Tetracycline) Allergy Hives Verified 10/16/24 16:24 pravastatin AdvReac Intermediate Upset Verified 10/16/24 16:24 Stomach atorvastatin (From Lipitor) AdvReac myalgia Verified 10/16/24 16:24 Family History Father Hypertension Colon cancer Alcoholism Mother Cancer LUNG CANCER/ SMOKER Father , MELANOMA No problems noted. Surgical History S/P partial lobectomy of lung interstim placement ( 08/05/20) Presence of coronary angioplasty implant and graft ( 03/12/18) History of cataract surgery History of abdominal surgery History of total hysterectomy History of cholecystectomy History of bowel resection Hx of appendectomy Presence of stent in coronary artery ( 06/15/22) Aortocoronary bypass status ( 05/12/04) Postsurgical percutaneous transluminal coronary angioplasty (PTCA) status ( 03/12/18) Social History adopted: No housing: house number of children: 1 current occupational status: retired current occupational exposures/hazards: No Smoking Status: Current every day smoker tobacco type: cigarettes Tobacco: How many years used: 50 how long ago did patien (more content not included)... Normal [facility] Ferritinon 10-16-2024 Ferritin [Mass/Vol] 19 ng/mL Normal 8-252 [facility] Comment on above: Performed By: #### L 503.6075, L100.0100, L503.6550, L503.6150 #### [facility] [address] [facility], [address] H AND P Exam - Hospitaliston 10-16-2024 H&P Exam - Hospitalist [facility] Medical Records Department [address] [place] [address] H P Exam - Hospitalist 10/16/241927 MR#: [id number] Acct: [id number] Name: HALEIGH ALMEIDA Rep #: [id number] : 1955 69 From: Veronique Moulton MD PCP: Dr. Radha Odom MD Status:ADM IN Location: [place] [address] HPI - General General Date of Admission: 10/16/24 Date of Service: 10/16/24 Chief Complaint: Chest pain, cough, dyspnea. HPI Narrative The patient is a 69 y/o F w/ PMHx: Anxiety and Depression, COPD, CAD s/p CABG and PCI, COPD, HTN, HLD, Hx Lung CA s/p remote partial lobectomy status postsurgical excision and radiation therapy with now known right upper and middle lobe pleural-based density/thickening with evidence of bronchiectasis consistent with postradiation fibrosis, Tobacco use, Anxiety and Depression, Chronic Diastolic CHF, HOWARD non-compliant with CPAP/BIPAP per discussions using 2L NC q HS, Chronic anemia w/ Hx GI bleed who presents to [facility] ED on 10/16/2024 with history of left lower chest discomfort with associated cough and dyspnea which has been worsening over the last 4-5 weeks, gradually worsening noted to be sharp, worse with deep inspiration with productive sputum although occasionally clear with initial fever however he notes that is improved prompting eventual ED evaluation to be cautious. She notes that her daughter had also been similarly ill with similar symptoms but has since improved. She reports fever, chills, productive cough, shortness of breath, wheezing and significant pain to her ribs especially with coughing. Workup in the ED included T98.5, heart rate 95, BP 123/63, respiratory rate 20, 100% on room air with most recent repeat vital signs T99.2 Oral, heart rate 110, BP 135/111, respiratory rate 22, 95% on room air, CBC with WBC 9.2, N17.0, MCV 67, platelet 172 without marked shift, BMP with sodium 133, BUN/creatinine 11/1.01, GFR 58, glucose 110, troponin initial 139 with repeat delta pending, prior to this most recent 02/22/2024 troponin 36, chest x-ray with grossly stable appearing and sized spiculated 4.8 cm spiculated mass density along the lateral mid right pleural surface consistent with malignancy which is known, EKG with sinus rhythm with no acute evidence of ischemia unchanged from previous. In the ED patient was administered DuoNeb therapy, aspirin full-strength. [facility] Medical History Anxiety Atherosclerotic heart disease of [place] coronary artery with unstable angina pectoris Congestive heart failure History of COPD Anemia Angina of effort Myocardial infarction, silent Adenocarcinoma of lung, stage 1 Lung cancer Melanoma Pure hypercholesterolemia Worsening angina Chest pain, unspecified HOWARD (obstructive sleep apnea) Osteoarthritis DDD (degenerative disc disease) Premature ventricular contraction Pericardial effusion Atherosclerotic heart disease of [place] coronary artery without angina pectoris Nonrheumatic mitral (valve) prolapse Tobacco abuse Essential hypertension Home Medications ???Medication ???Instructions ???Recorded ???Last Taken ???Type omeprazole 20 mg capsule,delayed 20 mg PO DAILY acid reflux 02/04/16 06/13/22 History release albuterol sulfate 90 mcg/actuation 1 puff inhalation Q6H PRN Sob /Or 07/28/20 06/14/22 History aerosol inhaler Wheezing ipratropium 0.5 mg-albuterol 3 mg 3 ml inhalation Q4H PRN shortness 12/29/20 06/08/22 Rx (2.5 mg base)/3 mL nebulization of breath or wheezing #180 mL soln nebulizer and compressor #1 ea 06/11/22 Unknown Rx primidone 50 mg tablet 150 mg PO QHS seizures 30 days #90 01/10/24 Unknown History tabs prazosin 2 mg capsule 2 mg PO QHS 01/12/24 Unknown History budesonide 1 mg/2 mL suspension 1 mg (2 mL) inhalation BID #60 mL 02/03/24 Unknown Rx for nebulization nitroglycerin 0.4 mg sublingual 0.4 mg sublingual Q5M PRN Chest 02/08/24 Unknown Rx tablet Pain #25 tabs metoprolol succinate 25 mg 12.5 mg (1/2 x 25 mg) PO DAILY #45 02/13/24 Unknown Rx tablet,extended release 24 hr TABLETS hydroxyzine HCl 25 mg tablet 50 mg PO BID 06/21/24 Unknown History clonazepam 0.5 mg tablet 0.5 mg PO QHS PRN anxiety 10/16/24 Unknown History clopidogrel 75 mg tablet (Plavix) 75 mg PO DAILY 10/16/24 Unknown History furosemide 20 mg tablet (Lasix) 20 mg PO BID 10/16/24 Unknown History sertraline 100 mg tablet 150 mg PO DAILY mood 10/16/24 Unknown History Allergy/AdvReac Type Severity Reaction Status Date / Time Iodinated Contrast Media Allergy Hives Verified 10/16/24 16:24 (Iodinated Contrast Media - IV Dye) mesalamine (From Asacol) Allergy GASTRIC Verified 10/16/24 16:24 HEMORRHAGE tetracycline (Tetracycline) Allergy Hives Verified 10/16/24 16:24 pravastatin AdvReac Intermediate Upset Verifie (more content not included)... Normal [facility] Iron+Iron Binding Capacityon 10-16-2024 Iron [Mass/Vol] 17 ug/dL Low 50-170 [facility] Comment on above: Performed By: #### L 503.6063, L100.0100, L503.0061, L503.4050 #### [facility] [address] [place], [address] IRON SATURATION 4.1 Low 15.0-55.0 [facility] Comment on above: Performed By: #### L 503.6075, L100.0100, L503.6550, L503.6150 #### [facility] [address] [place], [address] TIBC 416 ug/dL Normal 250-450 [facility] Comment on above: Performed By: #### L 503.6075, L100.0100, L503.6550, L503.6150 #### [facility] [address] [place], [address] L501.4020on 10-16-2024 TROPONIN-I HS 147 pg/mL Invalid Interpretation Code 3.0-54.0 [facility] Comment on above: Order Comment: 'TROP ' Serial specimen #1, #2 or #3: 2 Result Comment: Crit ical Result(s) Called at: 19:43:43 10/16/2024 by: MERLENE MADDEN TO NAZARIO CARLISLE. Results read back by same. Please Note: New Test Units and Gender Specific Reference Ranges. For more information see Policy Stat Procedure [place] High Sensitivity Troponin (TNIH) and attachments. Performed By: #### L 501.4020 #### [facility] [address] [place], [address] TROPONIN-I HS 139 pg/mL Invalid Interpretation Code 3.0-54.0 [facility] Comment on above: Order Comment: 'TROP ' Serial specimen #1, #2 or #3: 1 Result Comment: Crit ical Result(s) Called at: 17:32:56 10/16/2024 by: MERLENE MADDEN TO BENJAMIN VYAS. Results read back by same. Please Note: New Test Units and Gender Specific Reference Ranges. For more information see Policy Stat Procedure [place] High Sensitivity Troponin (TNIH) and attachments. Performed By: #### L 500.2500, L501.4020, L100.0100 ####[facility] [address] [place], [address] Magnesiumon 10-16-2024 Magnesium [Mass/Vol] 2.1 mg/dL Normal 1.6-2.6 [facility] Comment on above: Order Comment: Comme nts: may add to ED labs Performed By: #### L 503.6075, L100.0100, L503.6550, L503.6150 #### [facility] [address] [place], [place], [address] Procalcitoninon 10-16-2024 Procalcitonin 0.14 ng/mL High 0.00-0.09 [facility] Comment on above: Result Comment: A procalcitonin (PCT) level above 2.0 ng/mL on the first day of ICU admission is associated with a high risk for progression to severe sepsis and/or septic shock. A PCT level below 0.5 ng/mL on the first day of ICU admission is associated with a low risk for progression to severe and/or septic shock. Note: Concentrations <0.5 ng/mL do not exclude an infection on account of localized infections (without systemic signs) which can be associated with such low concentrations, or a systemic infection in its initial stages (<6 hours). Furthermore, increased procalcitonin can occur without infection. PCT concentrations between 0.5 and 2.0 ng/mL should be interpreted taking into account the patient's history. It is recommended to retest PCT within 6-24 hours if any concentrations <2 ng/mL are obtained. Performed By: #### L 503.6075, L100.0100, L503.6550, L503.6150 #### [facility] [address] [place], [place], [address] MR/BMS.BPon 08-22-2024 MR/BMS.BP [address], [address] [place] [address] OFFICE VISIT Date of Service: 08/22/24 MR#: [id number] Acct: [id number] Name: WILLIENATALIAHALEIGH J Rep #: [id number] : 1955 Provider: MT granados Age/Sex: 69/F Location: [facility].BP Status: Signed Intake Vital Signs 06/21/24 11:24 08/22/24 14:48 Height 5 ft 3 in 5 ft 3 in BP 134/75 H 116/73 Blood Pressure Location Rt brachial Rt brachial Position Sitting Sitting Pulse 88 80 Pulse Source Monitor Monitor BP Intake Visit Reasons: Follow up Accompanied by: Self Is patient in pain?: No Allergies Iodinated Contrast Media (Iodinated Contrast Media - IV Dye) Allergy (Verified 08/22/24 14:49) Hives mesalamine (From Asacol) Allergy (Verified 08/22/24 14:49) GASTRIC HEMORRHAGE tetracycline (Tetracycline) Allergy (Verified 08/22/24 14:49) Hives pravastatin Adverse Reaction (Intermediate, Verified 08/22/24 14:49) Upset Stomach atorvastatin (From Lipitor) Adverse Reaction (Verified 08/22/24 14:49) myalgia Medications ???Medication ???Instructions ???Recorded ???Confirmed ???Type omeprazole 20 mg capsule,delayed 20 mg PO DAILY acid reflux 02/04/16 08/22/24 History release albuterol sulfate 90 mcg/actuation 1 puff inhalation Q6H PRN Sob /Or 07/28/20 08/22/24 History aerosol inhaler Wheezing ipratropium 0.5 mg-albuterol 3 mg 3 ml inhalation Q4H PRN shortness 12/29/20 08/22/24 Rx (2.5 mg base)/3 mL nebulization of breath or wheezing #180 mL soln nebulizer and compressor #1 ea 06/11/22 06/21/24 Rx primidone 50 mg tablet 150 mg PO QHS seizures 30 days #90 01/10/24 08/22/24 History tabs prazosin 2 mg capsule 2 mg PO QHS 01/12/24 06/21/24 History budesonide 1 mg/2 mL suspension 1 mg (2 mL) inhalation BID #60 mL 02/03/24 08/22/24 Rx for nebulization nitroglycerin 0.4 mg sublingual 0.4 mg sublingual Q5M PRN Chest 02/08/24 08/22/24 Rx tablet Pain #25 tabs metoprolol succinate 25 mg 12.5 mg (1/2 x 25 mg) PO DAILY #45 02/13/24 08/22/24 Rx tablet,extended release 24 hr TABLETS furosemide 20 mg tablet (Lasix) 20 mg PO .COMPLEX #180 tabs 03/21/24 08/22/24 Rx hydroxyzine HCl 25 mg tablet 50 mg PO TID 06/21/24 08/22/24 History clonazepam 0.5 mg tablet 0.5 mg PO BID PRN anxiety #20 tabs 08/22/24 08/22/24 Rx sertraline 100 mg tablet 200 mg (2 x 100 mg) PO DAILY mood 08/22/24 08/22/24 Rx #60 tabs Have you fallen in the past year?: No PFSH Medical History Anxiety Atherosclerotic heart disease of [place] coronary artery with unstable angina pectoris Congestive heart failure History of COPD Anemia Angina of effort Myocardial infarction, silent Adenocarcinoma of lung, stage 1 Lung cancer Melanoma Pure hypercholesterolemia Worsening angina Chest pain, unspecified HOWARD (obstructive sleep apnea) Osteoarthritis DDD (degenerative disc disease) Premature ventricular contraction Pericardial effusion Atherosclerotic heart disease of [place] coronary artery without angina pectoris Nonrheumatic mitral (valve) prolapse Tobacco abuse Essential hypertension Surgical History S/P partial lobectomy of lung interstim placement ( 08/05/20) Presence of coronary angioplasty implant and graft ( 03/12/18) History of cataract surgery History of abdominal surgery History of total hysterectomy History of cholecystectomy History of bowel resection Hx of appendectomy Presence of stent in coronary artery ( 06/15/22) Aortocoronary bypass status ( 05/12/04) Postsurgical percutaneous transluminal coronary angioplasty (PTCA) status ( 03/12/18) Family History Father Hypertension Colon cancer Alcoholism Mother Cancer LUNG CANCER/ SMOKER Father , MELANOMA No problems noted. Social History adopted: No housing: house number of children: 1 current occupational status: retired current occupational exposures/hazards: No Smoking Status: Current every day smoker tobacco type: cigarettes Tobacco: How many years used: 50 how long ago did patient quit smokin weeks ago alcohol intake: never substance use type: does not use caffeine: Yes Type: carbonated beverages Number of servings: 2 HPI History of Present Illness History provided by: patient HPI: Haleigh Almeida is a 69 year old patient presenting today for a follow up evaluation. Feels she has been having an increase in anxiety. Feels her anxiety has been making her even more shaky. Feels her sleep has gotten worse since last appointment. Goes to bed at 10PM and is only getting about 2 hours per night. Sometimes is sleeping during the day. Denies nightmares while s (more content not included)... Normal [facility] Absolute lymphocyte countOrd ered By: Nivia Campoverde on 06-09-2023 Lymphocytes Auto (Unsp spec) [#/Vol] 1.74 10*3/uL 0.83-4.51 [facility] Basophil percentageOrdered B y: Nivia Campoverde on 06-09-2023 Basophils/100 WBC (Bld) 0.9 % 0-1 [facility] Bilirubin [Mass/Vol] 0.40 mg/dL 0.20-1.00 [facility] Comment on above: For patients on eltr ombopag therapy, use of Dimension Aspen TBIL is not recommended. Chloride [Moles/Vol] 102 mmol/L 98-107 [facility] Eosinophils/100 WBC (Bld) 1.8 % 0-5 [facility] Glucose [Mass/Vol] 126 mg/dL 74-106 [facility] Comment on above: Fasting Glucose resu lt greater than or equal to 126 mg/dL suggests DIABETES MELLITUS per A.D.A. criteria. Neutrophils (Bld) [#/Vol] 3.1 10*3/uL 2.0-7.7 [facility] Neutrophils/100 WBC (Bld) 55.8 % 47-70 [facility] Potassium [Moles/Vol] 3.8 mmol/L 3.5-5.1 [facility] Protein [Mass/Vol] 7.5 g/dL 6.4-8.2 [facility] Sodium [Moles/Vol] 135 mmol/L 136-145 [facility] WBC (Bld) [#/Vol] 5.5 10*3/uL 4.4-11.0 [facility] Blood erythrocytes count (nu mber/volume)Ordered By: Nivia Campoverde on 06-09-2023 RBC (Bld) [#/Vol] 4.59 10*6/uL 4.2-5.4 [facility] Blood hemoglobin measurement (mass/volume)Ordered By: Nivia Campoverde on 06-09-2023 Hemoglobin (Bld) [Mass/Vol] 11.4 g/dL 12.0-15.0 [facility] Blood lymphocytes/100 leukoc ytesOrdered By: Nivia Campoverde on 06-09-2023 Lymphocytes/100 WBC (Bld) 31.6 % 19-41 [facility] Blood monocytes/100 leukocyt esOrdered By: Nivia Campoverde on 06-09-2023 Monocytes/100 WBC (Bld) 9.5 % 0-10 [facility] Blood platelet mean volumeOr dered By: Nivia Campoverde on 06-09-2023 Platelet mean volume (Bld) [Entitic vol] 9.9 fL 6.2-12.0 [facility] Determination of erythrocyte mean corpuscular volume (MCV)Ordered By: Nivia Campoverde on 06-09-2023 MCV (RBC) [Entitic vol] 78.6 fL 81-99 [facility] Direct bilirubinOrdered By: Nivia Campoverde on 06-09-2023 Bilirubin.direct [Mass/Vol] 0.13 mg/dL 0.00-0.30 [facility] Hematocrit Auto (Bld) [Volum e fraction]Ordered By: Nivia Campoverde on 06-09-2023 Hematocrit (Bld) [Volume fraction] 36.1 % 37-47 [facility] Laboratory - Chemistry and C hemistry - challengeOrdered By: Nivia Campoverde on 06-09-2023 ALP [Catalytic activity/Vol] 74 U/L 45-117 [facility] ALT [Catalytic activity/Vol] 25 U/L 13-56 [facility] CO2 [Moles/Vol] 24.0 mmol/L 21.0-32.0 [facility] Globulin (S) [Mass/Vol] 4.1 g/dL 2.2-4.2 [facility] Lipase [Catalytic activity/Vol] 27 U/L 13-75 [facility] Comment on above: Please note:LIPASE r evised reference range effective 23. New Lipase methodology. Expected to produce lower values than the previous assay method. NEW Reference Range: 13 - 75 U/L Urea nitrogen/Creatinine [Mass ratio] 12.9 mg/mg 10-20 [facility] Laboratory - Hematology and Cell countsOrdered By: Nivia Campoverde on 06-09-2023 Erythrocyte distribution width (RBC) [Entitic vol] 49.1 fL 35.1-43.9 [facility] Erythrocyte distribution width (RBC) [Ratio] 17.2 % 11.6-14.6 [facility] Immature granulocytes/100 WBC (Bld) 0.400 % 0.0-0.9 [facility] Comment on above: IG% - Immature Granu locytes (promyelocytes, myelocytes and metamyelocytes) > 1% indicates that a LEFT SHIFT is Present. MCH (RBC) [Entitic mass] 24.8 pg 27.0-32.0 [facility] Nucleated RBC/100 WBC (Bld) [Ratio] 0 % 0-5 [facility] MCHC Auto (RBC) [Mass/Vol]Or dered By: Nivia Campoverde on 06-09-2023 MCHC (RBC) [Mass/Vol] 31.6 g/dL 32-36 [facility] No Panel InformationOrdered By: Nivia Campoverde on 06-09-2023 Estimated Creatinine Clearance Calc 49.22 ml/min [facility] Estimated GFR (MDRD) Amer 77 mL/min >60 [facility] Comment on above: GFR Calc Estimated GFR (MDRD) Non-Af Amer 64 mL/min >60 [facility] Comment on above: Non- GFR Calc Troponin I High Sensitivity 13 pg/mL 3.0-54.0 [facility] Comment on above: Please Note: New Erma t Units and Gender Specific Reference Ranges. For more information see Policy Stat Procedure Aspen High Sensitivity Troponin (TNIH) and attachments. Platelets bldOrdered By: Sachi Campoverde on 06-09-2023 Platelets (Bld) [#/Vol] 206 10*3/uL 150-450 [facility] Serum or plasma albumin leo urement (mass/volume)Ordered By: Nivia Campoverde on 06-09-2023 Albumin [Mass/Vol] 3.4 g/dL 3.2-5.0 [facility] Serum or plasma calcium leo urement (mass/volume)Ordered By: Nivia Campoverde on 06-09-2023 Calcium [Mass/Vol] 8.7 mg/dL 8.5-10.1 [facility] Serum or plasma creatinine m easurement (mass/volume)Ordered By: Nivia Campoverde on 06-09-2023 Creatinine [Mass/Vol] 0.93 mg/dL 0.55-1.02 [facility] Comment on above: The validity of the calculated GFR & GFRAA in patients over 70 years has not been determined. Clinical correlation is essential. Serum or plasma urea nitroge n measurement (mass/volume)Ordered By: Nivia Campoverde on 06-09-2023 Urea nitrogen [Mass/Vol] 12 mg/dL 7-18 [facility] Thin prep Papanicolaou smear with manual screeningOrdered By: Nivia Campoverde on 06-09-2023 Thin prep Papanicolaou smear with manual screening 22 U/L 15-37 [facility] Thin prep Papanicolaou smear with manual screening 9 5-15 [facility] Absolute lymphocyte countOrd ered By: Phani Odom on 06-08-2023 Lymphocytes Auto (Unsp spec) [#/Vol] 1.88 10*3/uL 0.83-4.51 [facility] Basophil percentageOrdered B y: Phani Odom on 06-08-2023 Amylase [Catalytic activity/Vol] 40 U/L 25-115 [facility] Basophils/100 WBC (Bld) 1.1 % 0-1 [facility] Bilirubin [Mass/Vol] 0.30 mg/dL 0.20-1.00 [facility] Comment on above: For patients on eltr ombopag therapy, use of Dimension Aspen TBIL is not recommended. Chloride [Moles/Vol] 102 mmol/L 98-107 [facility] Eosinophils/100 WBC (Bld) 0.9 % 0-5 [facility] Glucose [Mass/Vol] 95 mg/dL 74-106 [facility] Neutrophils (Bld) [#/Vol] 3.9 10*3/uL 2.0-7.7 [facility] Neutrophils/100 WBC (Bld) 59.1 % 47-70 [facility] Potassium [Moles/Vol] 4.1 mmol/L 3.5-5.1 [facility] Protein [Mass/Vol] 8.4 g/dL 6.4-8.2 [facility] Sodium [Moles/Vol] 133 mmol/L 136-145 [facility] WBC (Bld) [#/Vol] 6.5 10*3/uL 4.4-11.0 [facility] Blood erythrocytes count (nu mber/volume)Ordered By: Phani Odom on 06-08-2023 RBC (Bld) [#/Vol] 4.97 10*6/uL 4.2-5.4 [facility] Blood hemoglobin measurement (mass/volume)Ordered By: Phani Odom on 06-08-2023 Hemoglobin (Bld) [Mass/Vol] 12.3 g/dL 12.0-15.0 [facility] Blood lymphocytes/100 leukoc ytesOrdered By: Phani Odom on 06-08-2023 Lymphocytes/100 WBC (Bld) 28.9 % 19-41 [facility] Blood monocytes/100 leukocyt esOrdered By: Phani Odom on 06-08-2023 Monocytes/100 WBC (Bld) 9.5 % 0-10 [facility] Blood platelet mean volumeOr dered By: Phani Odom on 06-08-2023 Platelet mean volume (Bld) [Entitic vol] 10.3 fL 6.2-12.0 [facility] Determination of erythrocyte mean corpuscular volume (MCV)Ordered By: Phani Odom on 06-08-2023 MCV (RBC) [Entitic vol] 79.1 fL 81-99 [facility] Erythrocyte sedimentation ra teOrdered By: Phani Odom on 06-08-2023 ESR (Bld) [Velocity] 25 mm/h 0-30 [facility] Hematocrit Auto (Bld) [Volum e fraction]Ordered By: Phani Odom on 06-08-2023 Hematocrit (Bld) [Volume fraction] 39.3 % 37-47 [facility] Iron measurement (mass/mass) Ordered By: Phani Odom on 06-08-2023 Iron (Unsp spec) [Mass/Mass] 47 ug/dL 50-170 [facility] Laboratory - Chemistry and C hemistry - challengeOrdered By: Phani Odom on 06-08-2023 Albumin [Mass/Vol] 4.1 g/dL 2.9-4.4 [facility] ALP [Catalytic activity/Vol] 88 U/L 45-117 [facility] ALT [Catalytic activity/Vol] 27 U/L 13-56 [facility] CO2 [Moles/Vol] 24.0 mmol/L 21.0-32.0 [facility] Globulin (S) [Mass/Vol] 4.5 g/dL 2.2-4.2 [facility] Lipase [Catalytic activity/Vol] 28 U/L 13-75 [facility] Comment on above: Please note:LIPASE r evised reference range effective 23. New Lipase methodology. Expected to produce lower values than the previous assay method. NEW Reference Range: 13 - 75 U/L Urea nitrogen/Creatinine [Mass ratio] 11.0 mg/mg 10-20 [facility] Laboratory - Hematology and Cell countsOrdered By: Phani Odom on 06-08-2023 Erythrocyte distribution width (RBC) [Entitic vol] 50.1 fL 35.1-43.9 [facility] Erythrocyte distribution width (RBC) [Ratio] 17.5 % 11.6-14.6 [facility] Immature granulocytes/100 WBC (Bld) 0.500 % 0.0-0.9 [facility] Comment on above: IG% - Immature Granu locytes (promyelocytes, myelocytes and metamyelocytes) > 1% indicates that a LEFT SHIFT is Present. MCH (RBC) [Entitic mass] 24.7 pg 27.0-32.0 [facility] Nucleated RBC/100 WBC (Bld) [Ratio] 0 % 0-5 [facility] MCHC Auto (RBC) [Mass/Vol]Or dered By: Phani Odom on 06-08-2023 MCHC (RBC) [Mass/Vol] 31.3 g/dL 32-36 [facility] No Panel InformationOrdered By: Phani Odom on 06-08-2023 Addendum Document Comment . [facility] Comment on above: The SPE pattern appe ars unremarkable. Evidence ofmonoclonal protein is not apparent.Performed at: [facility] [id number] Director: Handy Guerrero PhD, Phone: [phone] Rolra-4-Ulvxaaxjq 0.3 g/dL 0.0-0.4 [facility] Ghboi-0-Geigwyenx 1.0 g/dL 0.4-1.0 [facility] Estimated GFR (MDRD) Amer 80 mL/min >60 [facility] Comment on above: GFR Calc Estimated GFR (MDRD) Non-Af Amer 66 mL/min >60 [facility] Comment on above: Non- GFR Calc Gamma Globulins 1.3 g/dL 0.4-1.8 [facility] Platelets bldOrdered By: Rita Odom on 06-08-2023 Platelets (Bld) [#/Vol] 251 10*3/uL 150-450 [facility] Protein Fractions Elph [Inte rp]Ordered By: Phani Odom on 06-08-2023 Protein Fractions [Interp] Comment . [facility] Comment on above: Protein electrophore sis scan will follow via computer,mail, or oracle adf consultant delivery. Serum albumin to globulin ra ant by protein electrophoresisOrdered By: Phani Odom on 06-08-2023 Albumin/Globulin Elph [Mass ratio] 1.1 0.7-1.7 [facility] Serum globulin measurement ( mass/volume)Ordered By: Phani Odom on 06-08-2023 Globulin (S) [Mass/Vol] 3.6 g/dL 2.2-3.9 [facility] Serum or plasma albumin leo urement (mass/volume)Ordered By: Phani Odom on 06-08-2023 Albumin [Mass/Vol] 3.9 g/dL 3.2-5.0 [facility] Serum or plasma albumin/glob ulin mass ratioOrdered By: Phani Odom on 06-08-2023 Albumin/Globulin [Mass ratio] 0.9 {ratio} 0.9-2.4 [facility] Serum or plasma beta globuli n measurement by electrophoresis (mass/volume)Ordered By: Phani Odom on 06-08-2023 Beta globulin Elph [Mass/Vol] 1.1 g/dL 0.7-1.3 [facility] Serum or plasma calcium leo urement (mass/volume)Ordered By: Phani Odom on 06-08-2023 Calcium [Mass/Vol] 9.0 mg/dL 8.5-10.1 [facility] Serum or plasma creatinine m easurement (mass/volume)Ordered By: Phani Odom on 06-08-2023 Creatinine [Mass/Vol] 0.91 mg/dL 0.55-1.02 [facility] Comment on above: The validity of the calculated GFR & GFRAA in patients over 70 years has not been determined. Clinical correlation is essential. Serum or plasma ferritin eduin surement (mass/volume)Ordered By: Phani Odom on 06-08-2023 Ferritin [Mass/Vol] 17 ng/mL 8-252 [facility] Serum or plasma urea nitroge n measurement (mass/volume)Ordered By: Phani Odom on 06-08-2023 Urea nitrogen [Mass/Vol] 10 mg/dL 7-18 [facility] Thin prep Papanicolaou smear with manual screeningOrdered By: Phani Odom on 06-08-2023 Thin prep Papanicolaou smear with manual screening 20 U/L 15-37 [facility] Thin prep Papanicolaou smear with manual screening 7 5-15 [facility] Thin prep Papanicolaou smear with manual screening See comment [facility] Comment on above: NOT OBSERVED Total protein bloodOrdered B y: Phani Odom on 06-08-2023 Protein [Mass/Vol] 7.7 g/dL 6.0-8.5 [facility] Basophil percentageOrdered B y: Dr. Odom on 01-24-2023 Bilirubin [Mass/Vol] 0.30 mg/dL 0.20-1.00 [facility] Comment on above: For patients on eltr ombopag therapy, use of Dimension Aspen TBIL is not recommended. Chloride [Moles/Vol] 105 mmol/L 98-107 [facility] Cholesterol [Mass/Vol] 174 mg/dL <200 [facility] Comment on above: <200 mg/dL Desirable 200-240 mg/dL Borderline >240 mg/dL High Risk Glucose [Mass/Vol] 81 mg/dL 74-106 [facility] Potassium [Moles/Vol] 4.7 mmol/L 3.5-5.1 [facility] Protein [Mass/Vol] 7.8 g/dL 6.4-8.2 [facility] Sodium [Moles/Vol] 137 mmol/L 136-145 [facility] Triglyceride [Mass/Vol] 131 mg/dL <199 [facility] Comment on above: The drugs N-Acetylcy steine and Metamizole may falsely depress this assay.Serum Triglycerides Reference Interval Normal <150 mg/dL Borderline high 150 - 199 mg/dL High 200 - 499 mg/dL Very High > or = 500 mg/dL WBC (Bld) [#/Vol] 5.5 10*3/uL 4.4-11.0 [facility] Blood erythrocytes count (nu mber/volume)Ordered By: Dr. Odom on 01-24-2023 RBC (Bld) [#/Vol] 4.91 10*6/uL 4.2-5.4 [facility] Blood hemoglobin measurement (mass/volume)Ordered By: Dr. Odom on 01-24-2023 Hemoglobin (Bld) [Mass/Vol] 11.9 g/dL 12.0-15.0 [facility] Blood platelet mean volumeOr dered By: Dr. Odom on 01-24-2023 Platelet mean volume (Bld) [Entitic vol] 9.9 fL 6.2-12.0 [facility] Determination of erythrocyte mean corpuscular volume (MCV)Ordered By: Dr. Odom on 01-24-2023 MCV (RBC) [Entitic vol] 79.4 fL 81-99 [facility] Hematocrit Auto (Bld) [Volum e fraction]Ordered By: Dr. Odom on 01-24-2023 Hematocrit (Bld) [Volume fraction] 39.0 % 37-47 [facility] Hemoglobin in reticulocytes (mass per reticulocyte)Ordered By: Dr. Odom on 01-24-2023 Hemoglobin (Reticulocytes) [Entitic mass] 28.4 pg 30-35 [facility] Iron measurement (mass/mass) Ordered By: Dr. Odom on 01-24-2023 Iron (Unsp spec) [Mass/Mass] 41 ug/dL 50-170 [facility] Laboratory - Chemistry and C hemistry - challengeOrdered By: Dr. Odom on 01-24-2023 Natriuretic peptide B (Bld) [Mass/Vol] 128.9 pg/mL 0-100 [facility] ALP [Catalytic activity/Vol] 78 U/L 45-117 [facility] ALT [Catalytic activity/Vol] 50 U/L 13-56 [facility] CO2 [Moles/Vol] 24.0 mmol/L 21.0-32.0 [facility] Globulin (S) [Mass/Vol] 4.2 g/dL 2.2-4.2 [facility] Urea nitrogen/Creatinine [Mass ratio] 12.0 mg/mg 10-20 [facility] Laboratory - Hematology and Cell countsOrdered By: Dr. Odom on 01-24-2023 Erythrocyte distribution width (RBC) [Entitic vol] 50.7 fL 35.1-43.9 [facility] Erythrocyte distribution width (RBC) [Ratio] 17.7 % 11.6-14.6 [facility] MCH (RBC) [Entitic mass] 24.2 pg 27.0-32.0 [facility] MCHC Auto (RBC) [Mass/Vol]Or dered By: Dr. Odom on 01-24-2023 MCHC (RBC) [Mass/Vol] 30.5 g/dL 32-36 [facility] No Panel InformationOrdered By: Dr. Odom on 01-24-2023 Estimated GFR (MDRD) Amer 65 mL/min >60 [facility] Comment on above: GFR Calc Estimated GFR (MDRD) Non-Af Amer 54 mL/min >60 [facility] Comment on above: Non- GFR Calc Immature Reticulocyte Fraction 17.90 % 3.00-15.90 [facility] Reticulocyte Count 1.48 % 0.5-1.5 [facility] Thyroid Stimulating Hormone (TSH) 2.37 uIU/mL 0.358-3.74 [facility] Vitamin B12 Level > 2000 pg/mL 211-911 [facility] Vitamin D 25-Hydroxy 25.7 ng/mL [facility] Comment on above: Vitamin D 25(OH) Sta tus Range Deficiency <20 ng/mL (50nmol/L) Insufficiency 20 - 30 ng/mL (50 - 75 nmol/L) Sufficiency 30 - 100 ng/mL (75 - 250 nmol/L) Toxicity >100 ng/mL (>250 nmol/L) Platelets bldOrdered By: Dr. Odom on 01-24-2023 Platelets (Bld) [#/Vol] 232 10*3/uL 150-450 [facility] Serum or plasma albumin leo urement (mass/volume)Ordered By: Dr. Odom on 01-24-2023 Albumin [Mass/Vol] 3.6 g/dL 3.2-5.0 [facility] Serum or plasma albumin/glob ulin mass ratioOrdered By: Dr. Odom on 01-24-2023 Albumin/Globulin [Mass ratio] 0.9 {ratio} 0.9-2.4 [facility] Serum or plasma calcium leo urement (mass/volume)Ordered By: Dr. Odom on 01-24-2023 Calcium [Mass/Vol] 8.9 mg/dL 8.5-10.1 [facility] Serum or plasma cholesterol in HDL measurement (mass/volume)Ordered By: Dr. Odom on 01-24-2023 Cholesterol in HDL [Mass/Vol] 68 mg/dL >40 [facility] Comment on above: The drugs N-Acetylcy steine and Metamizole may falsely depress this assay. Reference Range HDL <40 mg/dL Low HDL Cholesterol HDL >or= 60 mg/dL High HDL Cholesterol Serum or plasma cholesterol in VLDL measurement (mass/volume)Ordered By: Dr. Odom on 01-24-2023 Cholesterol in VLDL [Mass/Vol] 26 mg/dL 5-40 [facility] Serum or plasma creatinine m easurement (mass/volume)Ordered By: Dr. Odom on 01-24-2023 Creatinine [Mass/Vol] 1.08 mg/dL 0.55-1.02 [facility] Comment on above: The validity of the calculated GFR & GFRAA in patients over 70 years has not been determined. Clinical correlation is essential. Serum or plasma ferritin eduin surement (mass/volume)Ordered By: Dr. Odom on 01-24-2023 Ferritin [Mass/Vol] 19 ng/mL 8-252 [facility] Serum or plasma low density lipoprotein (LDL) cholesterol measurement (mass/volume)Ordered By: Dr. Odom on 01-24-2023 Cholesterol in LDL [Mass/Vol] 80 mg/dL 0-130 [facility] Serum or plasma urea nitroge n measurement (mass/volume)Ordered By: Dr. Odom on 01-24-2023 Urea nitrogen [Mass/Vol] 13 mg/dL 7-18 [facility] Thin prep Papanicolaou smear with manual screeningOrdered By: Dr. Odom on 01-24-2023 Thin prep Papanicolaou smear with manual screening 37 U/L 15-37 [facility] Thin prep Papanicolaou smear with manual screening 8 5-15 [facility] Progress Noteon 01-23-2023 Progress Note Chart reviewed for surveillance purposes by Thoracic/Head & Neck Furnace Attendant. Patient undergoing surveillance at [facility] Basophil percentageon 2021 Bilirubin [Mass/Vol] 0.40 mg/dL 0.20-1.00 [facility] Work Phone: Comment on above: For patients on eltr ombopag therapy, use of Dimension Aspen TBIL is not recommended. Chloride [Moles/Vol] 99 mmol/L 98-107 [facility] Work Phone: Glucose [Mass/Vol] 121 mg/dL 74-106 [facility] Work Phone: Comment on above: Fasting Glucose resu lt from 100 to 125 mg/dL suggests IMPAIRED HOMEOSTASIS per A.D.A. criteria. Potassium [Moles/Vol] 3.9 mmol/L 3.5-5.1 [facility] Work Phone: Protein [Mass/Vol] 7.1 g/dL 6.4-8.2 [facility] Work Phone: Sodium [Moles/Vol] 133 mmol/L 136-145 [facility] Work Phone: [phone] WBC (Bld) [#/Vol] 10.5 10*3/uL 4.4-11.0 [facility] Work Phone: [phone] Blood erythrocytes count (nu mber/volume)on 06-16-2022 RBC (Bld) [#/Vol] 4.18 10*6/uL 4.2-5.4 [facility] Work Phone: [phone] Blood hemoglobin measurement (mass/volume)on 06-16-2022 Hemoglobin (Bld) [Mass/Vol] 10.4 g/dL 12.0-15.0 [facility] Work Phone: [phone] Blood platelet mean volumeon 06-16-2022 Platelet mean volume (Bld) [Entitic vol] 9.8 fL 6.2-12.0 [facility] Work Phone: [phone] Determination of erythrocyte mean corpuscular volume (MCV)on 06-16-2022 MCV (RBC) [Entitic vol] 81.1 fL 81-99 [facility] Work Phone: [phone] Hematocrit Auto (Bld) [Volum e fraction]on 06-16-2022 Hematocrit (Bld) [Volume fraction] 33.9 % 37-47 [facility] Work Phone: [phone] Laboratory - Chemistry and C hemistry - challengeon 06-16-2022 ALP [Catalytic activity/Vol] 61 U/L 45-117 [facility] Work Phone: [phone] ALT [Catalytic activity/Vol] 19 U/L 13-56 [facility] Work Phone: [phone] CO2 [Moles/Vol] 27.0 mmol/L 21.0-32.0 [facility] Work Phone: [phone] Globulin (S) [Mass/Vol] 3.8 g/dL 2.2-4.2 [facility] Work Phone: [phone] Urea nitrogen/Creatinine [Mass ratio] 15.4 mg/mg 10-20 [facility] Work Phone: [phone] Laboratory - Hematology and Cell countson 06-16-2022 Erythrocyte distribution width (RBC) [Entitic vol] 63.3 fL 35.1-43.9 [facility] Work Phone: [phone] Erythrocyte distribution width (RBC) [Ratio] 21.6 % 11.6-14.6 [facility] Work Phone: [phone] MCH (RBC) [Entitic mass] 24.9 pg 27.0-32.0 [facility] Work Phone: [phone] MCHC Auto (RBC) [Mass/Vol]on 06-16-2022 MCHC (RBC) [Mass/Vol] 30.7 g/dL 32-36 [facility] Work Phone: No Panel Informationon 06-16 Estimated Creatinine Clearance Calc 39.65 ml/min [facility] Work Phone: [phone] Estimated GFR (MDRD) Amer 60 mL/min >60 [facility] Work Phone: Comment on above: GFR Calc Estimated GFR (MDRD) Non-Af Amer 49 mL/min >60 [facility] Work Phone: Comment on above: Non- GFR Calc Platelets bldon 06-16-2022 Platelets (Bld) [#/Vol] 195 10*3/uL 150-450 [facility] Work Phone: [phone] Serum or plasma albumin leo urement (mass/volume)on 06-16-2022 Albumin [Mass/Vol] 3.3 g/dL 3.2-5.0 [facility] Work Phone: [phone] Serum or plasma albumin/glob ulin mass ratioon 06-16-2022 Albumin/Globulin [Mass ratio] 0.9 {ratio} 0.9-2.4 [facility] Work Phone: [phone] Serum or plasma calcium leo urement (mass/volume)on 06-16-2022 Calcium [Mass/Vol] 8.9 mg/dL 8.5-10.1 [facility] Work Phone: [phone] Serum or plasma creatinine m easurement (mass/volume)on 06-16-2022 Creatinine [Mass/Vol] 1.17 mg/dL 0.55-1.02 [facility] Work Phone: Comment on above: The validity of the calculated GFR & GFRAA in patients over 70 years has not been determined. Clinical correlation is essential. Serum or plasma urea nitroge n measurement (mass/volume)on 06-16-2022 Urea nitrogen [Mass/Vol] 18 mg/dL 7-18 [facility] Work Phone: Thin prep Papanicolaou smear with manual screeningon 06-16-2022 Thin prep Papanicolaou smear with manual screening 13 U/L 15-37 [facility] Work Phone: [phone] Thin prep Papanicolaou smear with manual screening 7 5-15 [facility] Work Phone: [phone] Absolute lymphocyte counton 06-15-2022 Lymphocytes Auto (Unsp spec) [#/Vol] 0.40 10*3/uL 0.83-4.51 [facility] Work Phone: Basophil percentageon 2021 Basophils/100 WBC (Bld) 0.3 % 0-1 [facility] Work Phone: [phone] Cholesterol [Mass/Vol] 104 mg/dL <200 [facility] Work Phone: [phone] Comment on above: <200 mg/dL Desirable 200-240 mg/dL Borderline >240 mg/dL High Risk Eosinophils/100 WBC (Bld) 0.0 % 0-5 [facility] Work Phone: [phone] Neutrophils (Bld) [#/Vol] 3.0 10*3/uL 2.0-7.7 [facility] Work Phone: [phone] Neutrophils/100 WBC (Bld) 84.6 % 47-70 [facility] Work Phone: [phone] Triglyceride [Mass/Vol] 54 mg/dL <199 [facility] Work Phone: [phone] Comment on above: The drugs N-Acetylcy steine and Metamizole may falsely depress this assay.Serum Triglycerides Reference Interval Normal <150 mg/dL Borderline high 150 - 199 mg/dL High 200 - 499 mg/dL Very High > or = 500 mg/dL Blood lymphocytes/100 leukoc yteson 06-15-2022 Lymphocytes/100 WBC (Bld) 11.4 % 19-41 [facility] Work Phone: Blood monocytes/100 leukocyt eson 06-15-2022 Monocytes/100 WBC (Bld) 2.8 % 0-10 [facility] Work Phone: Blood platelet adequacy dete ction by light microscopyon 06-15-2022 Platelets LM Ql (Bld) ADEQUATE ADEQ [facility] Work Phone: Hypochromatic red blood cell detectionon 06-15-2022 Hypochromia Ql (Bld) RARE [facility] Work Phone: Laboratory - Hematology and Cell countson 06-15-2022 Anisocytosis Ql (Bld) 1+ [facility] Work Phone: Immature granulocytes/100 WBC (Bld) 0.900 % 0.0-0.9 [facility] Work Phone: Comment on above: IG% - Immature Granu locytes (promyelocytes, myelocytes and metamyelocytes) > 1% indicates that a LEFT SHIFT is Present. Nucleated RBC/100 WBC (Bld) [Ratio] 0 % 0-5 [facility] Work Phone: No Panel Informationon 06-15 Troponin I High Sensitivity 122 pg/mL 3.0-54.0 [facility] Work Phone: Comment on above: Critical Result(s) C alled at: 08:10:35 06/15/2022 by: Angela Ricketts RN PCU. Results read back by same. Please Note: New Test Units and Gender Specific Reference Ranges. For more information see Policy Stat Procedure Aspen High Sensitivity Troponin (TNIH) and attachments. Review by pathologiston Pathologist review Sharad (Unsp spec) [Interp] Reviewed [facility] Work Phone: Comment on above: Previous reported re sult: Jahaira cox Edited by: MARCIA on 06/15/22:1305Leukopenia.Macrocytic anemia.Clinical correlation necessary.Calvin Tao M.D. 06/15/22 AMENDED REPORT 06/15/22 1305 PATH REV previously reported as: March kenny Serum or plasma cholesterol in HDL measurement (mass/volume)on 06-15-2022 Cholesterol in HDL [Mass/Vol] 45 mg/dL >40 [facility] Work Phone: Comment on above: The drugs N-Acetylcy steine and Metamizole may falsely depress this assay. Reference Range HDL <40 mg/dL Low HDL Cholesterol HDL >or= 60 mg/dL High HDL Cholesterol Serum or plasma cholesterol in VLDL measurement (mass/volume)on 06-15-2022 Cholesterol in VLDL [Mass/Vol] 11 mg/dL 5-40 [facility] Work Phone: Serum or plasma low density lipoprotein (LDL) cholesterol measurement (mass/volume)on 06-15-2022 Cholesterol in LDL [Mass/Vol] 48 mg/dL 0-130 [facility] Work Phone: Absolute lymphocyte counton 06-14-2022 Lymphocytes Auto (Unsp spec) [#/Vol] 0.96 10*3/uL 0.83-4.51 [facility] Work Phone: Basophil percentageon 2021 Basophils/100 WBC (Bld) 0.8 % 0-1 [facility] Work Phone: Chloride [Moles/Vol] 100 mmol/L 98-107 [facility]: Eosinophils/100 WBC (Bld) 2.3 % 0-5 [facility] Work Phone: Glucose [Mass/Vol] 94 mg/dL 74-106 [facility] Work Phone: Neutrophils (Bld) [#/Vol] 3.5 10*3/uL 2.0-7.7 [facility] Work Phone: Neutrophils/100 WBC (Bld) 68.3 % 47-70 [facility] Work Phone: [phone] Potassium [Moles/Vol] 4.5 mmol/L 3.5-5.1 [facility] Work Phone: [phone] Comment on above: Moderate Hemolysis, Result may be falsely increased. Sodium [Moles/Vol] 130 mmol/L 136-145 [facility] Work Phone: [phone] WBC (Bld) [#/Vol] 5.1 10*3/uL 4.4-11.0 [facility] Work Phone: [phone] Blood erythrocytes count (nu mber/volume)on 06-14-2022 RBC (Bld) [#/Vol] 4.28 10*6/uL 4.2-5.4 [facility] Work Phone: [phone] Blood hemoglobin measurement (mass/volume)on 06-14-2022 Hemoglobin (Bld) [Mass/Vol] 10.6 g/dL 12.0-15.0 [facility] Work Phone: [phone] Blood lymphocytes/100 leukoc yteson 06-14-2022 Lymphocytes/100 WBC (Bld) 18.8 % 19-41 [facility] Work Phone: [phone] Blood monocytes/100 leukocyt eson 06-14-2022 Monocytes/100 WBC (Bld) 9.2 % 0-10 [facility] Work Phone: [phone] Blood platelet adequacy dete ction by light microscopyon 06-14-2022 Platelets LM Ql (Bld) ADEQUATE ADEQ [facility] Work Phone: [phone] Blood platelet mean volumeon 06-14-2022 Platelet mean volume (Bld) [Entitic vol] 10.9 fL 6.2-12.0 [facility] Work Phone: [phone] Determination of erythrocyte mean corpuscular volume (MCV)on 06-14-2022 MCV (RBC) [Entitic vol] 81.1 fL 81-99 [facility] Work Phone: [phone] Hematocrit Auto (Bld) [Volum e fraction]on 06-14-2022 Hematocrit (Bld) [Volume fraction] 34.7 % 37-47 [facility] Work Phone: Laboratory - Chemistry and C hemistry - challengeon 06-14-2022 CO2 [Moles/Vol] 23.0 mmol/L 21.0-32.0 [facility] Work Phone: [phone] Natriuretic peptide B (Bld) [Mass/Vol] 1338.2 pg/mL 0-100 [facility] Work Phone: [phone] Urea nitrogen/Creatinine [Mass ratio] 14.3 mg/mg 10-20 [facility] Work Phone: [phone] Magnesium [Mass/Vol] 2.0 mg/dL 1.6-2.6 [facility] Work Phone: [phone] Laboratory - Hematology and Cell countson 06-14-2022 Anisocytosis Ql (Bld) 1+ [facility] Work Phone: [phone] Erythrocyte distribution width (RBC) [Entitic vol] 61.1 fL 35.1-43.9 [facility] Work Phone: [phone] Erythrocyte distribution width (RBC) [Ratio] 21.2 % 11.6-14.6 [facility] Work Phone: [phone] Immature granulocytes/100 WBC (Bld) 0.600 % 0.0-0.9 [facility] Work Phone: [phone] Comment on above: IG% - Immature Granu locytes (promyelocytes, myelocytes and metamyelocytes) > 1% indicates that a LEFT SHIFT is Present. MCH (RBC) [Entitic mass] 24.8 pg 27.0-32.0 [facility] Work Phone: [phone] Nucleated RBC/100 WBC (Bld) [Ratio] 0 % 0-5 [facility] Work Phone: [phone] MCHC Auto (RBC) [Mass/Vol]on 06-14-2022 MCHC (RBC) [Mass/Vol] 30.5 g/dL 32-36 [facility] Work Phone: No Panel Informationon 06-14 Estimated Creatinine Clearance Calc 44.19 ml/min [facility] Work Phone: Estimated GFR (MDRD) Amer 68 mL/min >60 [facility] Work Phone: Comment on above: GFR Calc Estimated GFR (MDRD) Non-Af Amer 56 mL/min >60 [facility] Work Phone: Comment on above: Non- GFR Calc Troponin I High Sensitivity 204 pg/mL 3.0-54.0 [facility] Work Phone: Comment on above: Critical Result(s) C alled at: 14:27:26 06/14/2022 by: Janell Schwartz to Jose. Results read back by same. Please Note: New Test Units and Gender Specific Reference Ranges. For more information see Policy Stat Procedure Aspen High Sensitivity Troponin (TNIH) and attachments. Platelets bldon 06-14-2022 Platelets (Bld) [#/Vol] 170 10*3/uL 150-450 [facility] Work Phone: Serum or plasma calcium leo urement (mass/volume)on 06-14-2022 Calcium [Mass/Vol] 9.3 mg/dL 8.5-10.1 [facility] Work Phone: Serum or plasma creatinine m easurement (mass/volume)on 06-14-2022 Creatinine [Mass/Vol] 1.05 mg/dL 0.55-1.02 [facility] Work Phone: Comment on above: The validity of the calculated GFR & GFRAA in patients over 70 years has not been determined. Clinical correlation is essential. Serum or plasma urea nitroge n measurement (mass/volume)on 06-14-2022 Urea nitrogen [Mass/Vol] 15 mg/dL 7-18 [facility] Work Phone: Thin prep Papanicolaou smear with manual screeningon 06-14-2022 Thin prep Papanicolaou smear with manual screening 7 5-15 [facility] Work Phone: Absolute lymphocyte counton 06-11-2022 Lymphocytes Auto (Unsp spec) [#/Vol] 0.78 10*3/uL 0.83-4.51 [facility] Work Phone: Basophil percentageon 2021 Basophils/100 WBC (Bld) 0.5 % 0-1 [facility] Work Phone: Bilirubin [Mass/Vol] 1.30 mg/dL 0.20-1.00 [facility] Work Phone: Comment on above: For patients on eltr ombopag therapy, use of Dimension Aspen TBIL is not recommended. Chloride [Moles/Vol] 101 mmol/L 98-107 [facility] Work Phone: Eosinophils/100 WBC (Bld) 0.8 % 0-5 [facility] Work Phone: Glucose [Mass/Vol] 116 mg/dL 74-106 [facility] Work Phone: Comment on above: Fasting Glucose resu lt from 100 to 125 mg/dL suggests IMPAIRED HOMEOSTASIS per A.D.A. criteria. Neutrophils (Bld) [#/Vol] 4.8 10*3/uL 2.0-7.7 [facility] Work Phone: Neutrophils/100 WBC (Bld) 77.0 % 47-70 [facility] Work Phone: Potassium [Moles/Vol] 3.4 mmol/L 3.5-5.1 [facility] Work Phone: Protein [Mass/Vol] 7.2 g/dL 6.4-8.2 [facility] Work Phone: Sodium [Moles/Vol] 133 mmol/L 136-145 [facility] Work Phone: WBC (Bld) [#/Vol] 6.2 10*3/uL 4.4-11.0 [facility] Work Phone: Blood erythrocytes count (nu mber/volume)on 06-11-2022 RBC (Bld) [#/Vol] 4.34 10*6/uL 4.2-5.4 [facility] Work Phone: [phone] Blood hemoglobin measurement (mass/volume)on 06-11-2022 Hemoglobin (Bld) [Mass/Vol] 10.8 g/dL 12.0-15.0 [facility] Work Phone: Blood lymphocytes/100 leukoc yteson 06-11-2022 Lymphocytes/100 WBC (Bld) 12.5 % 19-41 [facility] Work Phone: [phone] Blood monocytes/100 leukocyt eson 06-11-2022 Monocytes/100 WBC (Bld) 8.7 % 0-10 [facility] Work Phone: [phone] Blood platelet mean volumeon 06-11-2022 Platelet mean volume (Bld) [Entitic vol] 9.8 fL 6.2-12.0 [facility] Work Phone: [phone] Determination of erythrocyte mean corpuscular volume (MCV)on 06-11-2022 MCV (RBC) [Entitic vol] 77.6 fL 81-99 [facility] Work Phone: [phone] Hematocrit Auto (Bld) [Volum e fraction]on 06-11-2022 Hematocrit (Bld) [Volume fraction] 33.7 % 37-47 [facility] Work Phone: Laboratory - Chemistry and C hemistry - challengeon 06-11-2022 ALP [Catalytic activity/Vol] 62 U/L 45-117 [facility] Work Phone: [phone] ALT [Catalytic activity/Vol] 20 U/L 13-56 [facility] Work Phone: [phone] CO2 [Moles/Vol] 24.0 mmol/L 21.0-32.0 [facility] Work Phone: [phone] Globulin (S) [Mass/Vol] 3.8 g/dL 2.2-4.2 [facility] Work Phone: [phone] Urea nitrogen/Creatinine [Mass ratio] 7.1 mg/mg 10-20 [facility] Work Phone: [phone] Laboratory - Hematology and Cell countson 06-11-2022 Erythrocyte distribution width (RBC) [Entitic vol] 54.5 fL 35.1-43.9 [facility] Work Phone: [phone] Erythrocyte distribution width (RBC) [Ratio] 19.2 % 11.6-14.6 [facility] Work Phone: [phone] Immature granulocytes/100 WBC (Bld) 0.500 % 0.0-0.9 [facility] Work Phone: [phone] Comment on above: IG% - Immature Granu locytes (promyelocytes, myelocytes and metamyelocytes) > 1% indicates that a LEFT SHIFT is Present. MCH (RBC) [Entitic mass] 24.9 pg 27.0-32.0 [facility] Work Phone: [phone] Nucleated RBC/100 WBC (Bld) [Ratio] 0 % 0-5 [facility] Work Phone: [phone] MCHC Auto (RBC) [Mass/Vol]on 06-11-2022 MCHC (RBC) [Mass/Vol] 32.0 g/dL 32-36 [facility] Work Phone: [phone] No Panel Informationon 06-11 Estimated Creatinine Clearance Calc 54.58 ml/min [facility] Work Phone: [phone] Estimated GFR (MDRD) Amer 86 mL/min >60 [facility] Work Phone: [phone] Comment on above: GFR Calc Estimated GFR (MDRD) Non-Af Amer 71 mL/min >60 [facility] Work Phone: [phone] Comment on above: Non- GFR Calc Platelets bldon 06-11-2022 Platelets (Bld) [#/Vol] 210 10*3/uL 150-450 [facility] Work Phone: [phone] Serum or plasma albumin leo urement (mass/volume)on 06-11-2022 Albumin [Mass/Vol] 3.4 g/dL 3.2-5.0 [facility] Work Phone: [phone] Serum or plasma albumin/glob ulin mass ratioon 06-11-2022 Albumin/Globulin [Mass ratio] 0.9 {ratio} 0.9-2.4 [facility] Work Phone: Serum or plasma calcium leo urement (mass/volume)on 06-11-2022 Calcium [Mass/Vol] 8.5 mg/dL 8.5-10.1 [facility] Work Phone: Serum or plasma creatinine m easurement (mass/volume)on 06-11-2022 Creatinine [Mass/Vol] 0.85 mg/dL 0.55-1.02 [facility] Work Phone: Comment on above: The validity of the calculated GFR & GFRAA in patients over 70 years has not been determined. Clinical correlation is essential. Serum or plasma urea nitroge n measurement (mass/volume)on 06-11-2022 Urea nitrogen [Mass/Vol] 6 mg/dL 7-18 [facility] Work Phone: Thin prep Papanicolaou smear with manual screeningon 06-11-2022 Thin prep Papanicolaou smear with manual screening 17 U/L 15-37 [facility] Work Phone: Thin prep Papanicolaou smear with manual screening 8 5-15 [facility] Work Phone: Iron measurement (mass/mass) on 06-09-2022 Iron (Unsp spec) [Mass/Mass] 14 ug/dL 50-170 [facility] Work Phone: Laboratory - Chemistry and C hemistry - challengeon 06-09-2022 Magnesium [Mass/Vol] 2.0 mg/dL 1.6-2.6 [facility] Work Phone: [phone] Natriuretic peptide B (Bld) [Mass/Vol] 1067.8 pg/mL 0-100 [facility] Work Phone: No Panel Informationon 06-09 Troponin I High Sensitivity 568 pg/mL 3.0-54.0 [facility] Work Phone: Comment on above: Critical Result(s) C alled at: 22:12:27 06/09/2022 by: JUAN MOULTON TO MOISES FERRER. Results read back by same. Please Note: New Test Units and Gender Specific Reference Ranges. For more information see Policy Stat Procedure Aspen High Sensitivity Troponin (TNIH) and attachments. Total Iron Binding Capacity 490 ug/dL 250-450 [facility] Work Phone: Serum or plasma iron saturat ion measurement (mass fraction)on 06-09-2022 Iron saturation [Mass fraction] 2.9 % 15.0-55.0 [facility] Work Phone: Basic Metabolic Panelon 01-06 Calcium [Mass/Vol] 8.6 mg/dL Normal 8.4-10.4 [facility] Comment on above: Performed By: #### B MP3M, HEMDF ####[facility] [id number] [place] [address] Glucose [Mass/Vol] 92 mg/dL Normal 70-100 [facility] Comment on above: Performed By: #### B MP3M, HEMDF ####[facility] [id number] [place] [address] Anion gap [Moles/Vol] 3 mmol/L Normal 3-13 [facility] Comment on above: Performed By: #### B MP3M, HEMDF ####[facility] [id number] [place] [address] CO2 [Moles/Vol] 26 mmol/L Normal 22-30 [facility] Comment on above: Performed By: #### B MP3M, HEMDF ####[facility] [id number] [place] [address] Creatinine [Mass/Vol] 0.94 mg/dL Normal 0.52-1.25 [facility] Comment on above: Performed By: #### B MP3M, HEMDF ####[facility] [id number] [place], [place] GFR/1.73 sq M predicted among blacks MDRD (S/P/Bld) [Vol rate/Area] 74.4 mL/min/{1.73_m2} Normal >60 [facility] Comment on above: Performed By: #### B MP3M, HEMDF ####[id number] [place] [address] GFR/1.73 sq M predicted among non-blacks MDRD (S/P/Bld) [Vol rate/Area] 64.2 mL/min/{1.73_m2} Normal >60 [facility] Comment on above: Result Comment: KDIG O guidelines provide the following GFR categories: Stage GFR(ml/min/1.73 m2) Terms G1 >=90 Normal or high G2 60-89 Mildly decreased* G3a 45-59 Mildly to moderately decreased G3b 30-44 Moderately to severely decreased G4 15-29 Severely decreased G5 <15 Kidney failure *Relative to young adult level. In the absence of evidence of kidney damage, neither GFR category G1 nor G2 fulfill the criteria for CKD. The CKD-EPI equation is validated in individuals 18 years of age and older. Currently the best equation for estimating glomerular filtration rate (GFR) from serum creatinine in children is the Bedside Skinner equation. It is less accurate in patients with extremes of muscle mass, restriction of dietary protein, ingestion of creatine, extra-renal metabolism of creatinine, or treatment with medications that affect renal tubular creatinine secretion. Performed By: #### B MP3M, HEMDF ####[id number] [place], [place] Urea nitrogen [Mass/Vol] 17 mg/dL Normal 7-20 [facility] Comment on above: Performed By: #### Umberto MP3M, HEMDF ####[id number] [place] [address] Chloride [Moles/Vol] 103 mmol/L Normal 98-107 [facility] Comment on above: Performed By: #### B MP3M, HEMDF ####[id number] [place] [address] Potassium [Moles/Vol] 3.9 mmol/L Normal 3.5-5.1 [facility] Comment on above: Performed By: #### B MP3M, HEMDF ####[id number] [place] [address] Sodium [Moles/Vol] 131 mmol/L Low 135-145 [facility] Comment on above: Performed By: #### B MP3M, HEMDF ####[facility] [id number] [place] [address] Basic Metabolic Panel w/ Ref aarti to MGon 01-31-2021 Anion gap [Moles/Vol] 3 mmol/L 3 - 13 mmol/L [facility] Work Phone: Calcium [Mass/Vol] 8.6 mg/dL 8.4 - 10. 4 mg/dL [facility] Work Phone: Chloride [Moles/Vol] 103 mmol/L 98 - 10 7 mmol/L [facility] Work Phone: CO2 [Moles/Vol] 26 mmol/L 22 - 30 mmol/L [facility] Work Phone: Creatinine [Mass/Vol] 0.94 mg/dL 0.52 - 1.25 mg/dL [facility] Work Phone: EGFR IF NonAfrican Japanese 64.2 mL/min >60 [facility] Work Phone: Comment on above: KDIGO guidelines pro vide the following GFR categories: Stage GFR(ml/min/1.73 m2) Terms G1 >=90 Normal or high G2 60-89 Mildly decreased* G3a 45-59 Mildly to moderately decreased G3b 30-44 Moderately to severely decreased G4 15-29 Severely decreased G5 <15 Kidney failure *Relative to young adult level. In the absence of evidence of kidney damage, neither GFR category G1 nor G2 fulfill the criteria for CKD. The CKD-EPI equation is validated in individuals 18 years of age and older. Currently the best equation for estimating glomerular filtration rate (GFR) from serum creatinine in children is the Bedside Skinner equation. It is less accurate in patients with extremes of muscle mass, restriction of dietary protein, ingestion of creatine, extra-renal metabolism of creatinine, or treatment with medications that affect renal tubular creatinine secretion. GFR/1.73 sq M predicted among blacks MDRD (S/P/Bld) [Vol rate/Area] 74.4 mL/min/{1.73_m2} >60 [facility] Work Phone: Glucose [Mass/Vol] 92 mg/dL 70 - 100 mg/dL [facility] Work Phone: Interpretation and review of laboratory results Abnormal [employer] Work Phone: 1 Potassium [Moles/Vol] 3.9 mmol/L 3.5 - 5.1 mmol/L [employer] Work Phone: 1 Sodium [Moles/Vol] 131 mmol/L Low 135 - 145 mmol/L [employer] Work Phone: 1 Urea nitrogen [Mass/Vol] 17 mg/dL 7 - 20 mg/dL [facility] Work Phone: 1 Test Performed by [employer], [address] [place] [id number] [employer] Work Phone: 1 CBC auto differentialon 01-06 Absolute Baso # 0.0 10*3/uL 0.0 - 0.2 10*3/uL [employer] Work Phone: 1 Absolute Neut # 3.6 10*3/uL 1.8 - 7.0 10*3/uL [employer] Work Phone: 1 Basophils/100 WBC (Bld) 0.5 % 0.0 - 2.0 % [employer] Work Phone: Eosinophils (Bld) [#/Vol] 0.2 10*3/uL 0.0 - 0.5 10*3/uL [employer] Work Phone: 1 Eosinophils/100 WBC (Bld) 2.9 % 1.0 - 6.0 % [employer] Work Phone: 1 Erythrocyte distribution width (RBC) [Ratio] 19.3 % High 11.5 - 14.5 % [employer] Work Phone: Granulocytes/100 WBC (Bld) 62.5 % 40.0 - 80.0 % [employer] Work Phone: Hematocrit (Bld) [Volume fraction] 26.2 % Low 35.0 - 47.0 % [employer] Work Phone: Hemoglobin (Bld) [Mass/Vol] 8.4 g/dL Low 11.7 - 16.0 g/dL [employer] Work Phone: 1 Interpretation and review of laboratory results Abnormal [employer] Work Phone: 1 Lymphocytes (Bld) [#/Vol] 1.5 10*3/uL 1.0 - 4.3 10*3/uL [employer] Work Phone: 22 Lymphocytes/100 WBC (Bld) 26.7 % 20.0 - 40.0 % [employer] Work Phone: MCH (RBC) [Entitic mass] 25.0 pg Low 26. 0 - 34.0 pg [employer] Work Phone: MCHC (RBC) [Mass/Vol] 32.1 % 32.0 - 36.0 % [employer] Work Phone: MCV (RBC) [Entitic vol] 78.1 fL Low 79.0 - 98.0 fL [employer] Work Phone: Monocytes (Bld) [#/Vol] 0.4 10*3/uL 0.0 - 0.8 10*3/uL [employer] Work Phone: Monocytes/100 WBC (Bld) 7.4 % 2.0 - 10.0 % [employer] Work Phone: Platelet mean volume (Bld) [Entitic vol] 9.2 fL 7.4 - 10.4 fL [employer] Work Phone: Platelets (Bld) [#/Vol] 131 10*3/uL Low 140 - 440 10*3/uL [employer] Work Phone: RBC (Bld) [#/Vol] 3.35 10*6/uL Low 3.80 - 5.2 0 10*6/uL [employer] Work Phone: WBC (Bld) [#/Vol] 5.8 10*3/uL 3.6 - 10.7 10*3/uL [employer] Work Phone: Test Performed by [employer] [address] [facility] Work Phone: [phone] CR Chest Portableon 02-01-20 21 CR Chest Portable Patient Name: HALEIGH ALMEIDA Diagnostic Radiology ACCESSION EXAM DATE/TIME PROCEDURE ORDERING PROVIDER [id number] 01/31/2021 06:48 EDT CR Chest Portable Bucky SHABAZZ RASHIDA CPT code 49373 Reason For Exam (CR Chest Portable) S/p Right VATS Report Indication: Status post right-sided VATS. A frontal view of the chest timed 06 is compared to the study dated 01/30/2021. Again identified is a right-sided chest tube. No sizable pneumothorax is seen. There are sternotomy wires and mediastinal vascular clips. Focal ill-defined opacity is identified in the right midlung. There are mild atelectatic changes in the lung bases. The heart is unchanged in size. The mediastinum is unchanged in appearance. There is no pulmonary vascular congestion. There has been plate and screw fusion of the cervical spine. The findings are similar to the prior study. Report Dictated on Final Dictated: 01/31/2021 8:48 am Dictating Physician: DO BYRD ANTHONY Signed Date and Time: 01/31/2021 8:50 am Signed by: DO BYRD ANTHONY Transcribed Date and Time: 01/31/2021 8:48 Normal [facility] Hemogram w/ Autodiffon 01-31 Abs Baso Cnt 0.0 10*3/uL Normal 0.0-0.2 [facility] Comment on above: Performed By: #### B MP3M, HEMDF ####[facility] [id number] [place], [place] Abs Neutrophile Cnt 3.6 10*3/uL Normal 1.8-7.0 [facility] Comment on above: Performed By: #### B MP3M, HEMDF ####[facility] [address] [place] [address] Basophils/100 WBC (Bld) 0.5 % Normal 0.0-2.0 [facility] Comment on above: Performed By: #### B MP3M, HEMDF ####[facility] [address] [place] [address] Eosinophils (Bld) [#/Vol] 0.2 10*3/uL Normal 0.0-0.5 [facility] Comment on above: Performed By: #### B JANELLE3Karl, HEMDF ####[address] [place] [address] Eosinophils/100 WBC (Bld) 2.9 % Normal 1.0-6.0 [facility] Comment on above: Performed By: #### Umberto LUIS3Karl, HEMDF ####[address] Erythrocyte distribution width (RBC) [Ratio] 19.3 % High 11.5-14.5 [facility] Comment on above: Performed By: #### Umberto LUIS3Karl, HEMDF ####[address] Granulocytes/100 WBC (Bld) 62.5 % Normal 40.0-80.0 [facility] Comment on above: Performed By: #### Umberto LUIS3Karl, HEMDF ####[address] Hematocrit (Bld) [Volume fraction] 26.2 % Low 35.0-47.0 [facility] Comment on above: Performed By: #### Umberto LUIS3Karl, HEMDF ####[address] Hemoglobin (Bld) [Mass/Vol] 8.4 g/dL Low 11.7-16.0 [facility] Comment on above: Performed By: #### Umberto MP3Karl, HEMDF ####[address] [address] Lymphocytes (Bld) [#/Vol] 1.5 10*3/uL Normal 1.0-4.3 [facility] Comment on above: Performed By: #### Umberto MP3M, HEMDF ####[address] [address] Lymphocytes/100 WBC (Bld) 26.7 % Normal 20.0-40.0 [facility] Comment on above: Performed By: #### B MP3M, HEMDF ####[address] [place], [place] MCH (RBC) [Entitic mass] 25.0 pg Low 26.0-34.0 [facility] Comment on above: Performed By: #### B MP3M, HEMDF ####[address] [place], [place] MCHC (RBC) [Mass/Vol] 32.1 % Normal 32.0-36.0 [facility] Comment on above: Performed By: #### B MP3M, HEMDF ####[address] [place], [place] MCV (RBC) [Entitic vol] 78.1 fL Low 79.0-98.0 [facility] Comment on above: Performed By: #### B MP3M, HEMDF ####[address] [place], [place] Monocytes (Bld) [#/Vol] 0.4 10*3/uL Normal 0.0-0.8 [facility] Comment on above: Performed By: #### Umberto MP3M, HEMDF ####[address] [place], [place] Monocytes/100 WBC (Bld) 7.4 % Normal 2.0-10.0 [facility] Comment on above: Performed By: #### B MP3M, HEMDF ####[address] [place], [place] Platelet mean volume (Bld) [Entitic vol] 9.2 fL Normal 7.4-10.4 [facility] Comment on above: Performed By: #### B MP3M, HEMDF ####[address] [place], [place] Platelets (Bld) [#/Vol] 131 10*3/uL Low 140-440 [facility] Comment on above: Performed By: #### B MP3M, HEMDF ####[address] [place], [place] RBC (Bld) [#/Vol] 3.35 10*6/uL Low 3.80-5.20 [facility] Comment on above: Performed By: #### B MP3M, HEMDF ####[facility] [place] [address] WBC (Bld) [#/Vol] 5.8 10*3/uL Normal 3.6-10.7 [facility] Comment on above: Performed By: #### B MP3M, HEMDF ####[facility] [id number] [place] [address] XR CHEST PORTABLEon 02-01-20 Patient Name: HALEIGH ALMEIDA Diagnostic Radiology ACCESSION EXAM DATE/TIME PROCEDURE ORDERING PROVIDER [id number] 01/31/2021 06:48 EDT CR Chest Portable Bucky SHABAZZ SARAH CPT code 60342 Reason For Exam (CR Chest Portable) S/p Right VATS Report Indication: Status post right-sided VATS. A frontal view of the chest timed 0619 is compared to the study dated 01/30/2021. Again identified is a right-sided chest tube. No sizable pneumothorax is seen. There are sternotomy wires and mediastinal vascular clips. Focal ill-defined opacity is identified in the right midlung. There are mild atelectatic changes in the lung bases. The heart is unchanged in size. The mediastinum is unchanged in appearance. There is no pulmonary vascular congestion. There has been plate and screw fusion of the cervical spine. The findings are similar to the prior study. Report Dictated on --- Final --- Dictated: 01/31/2021 8:48 am Dictating Physician: DO BYRD ANTHONY Signed Date and Time: 01/31/2021 8:50 am Signed by: DO BYRD ANTHONY Transcribed Date and Time: 01/31/2021 8:48 [facility] Work Phone: [facility] - 01/31/2021 8:51 AM EDT Patient Name: HALEIGH ALMEIDA Diagnostic Radiology ACCESSION EXAM DATE/TIME PROCEDURE ORDERING PROVIDER [id number] 01/31/2021 06:48 EDT CR Chest Portable Bucky SHABAZZ SARAH CPT code 29790 Reason For Exam (CR Chest Portable) S/p Right VATS Report Indication: Status post right-sided VATS. A frontal view of the chest timed 618 is compared to the study dated 01/30/2021. Again identified is a right-sided chest tube. No sizable pneumothorax is seen. There are sternotomy wires and mediastinal vascular clips. Focal ill-defined opacity is identified in the right midlung. There are mild atelectatic changes in the lung bases. The heart is unchanged in size. The mediastinum is unchanged in appearance. There is no pulmonary vascular congestion. There has been plate and screw fusion of the cervical spine. The findings are similar to the prior study. Report Dictated on --- Final --- Dictated: 01/31/2021 8:48 am Dictating Physician: DO BYRD ANTHONY Signed Date and Time: 01/31/2021 8:50 am Signed by: DO BYRD ANTHONY Transcribed Date and Time: 01/31/2021 8:48 [facility] Work Phone: Basic Metabolic Panelon 01-06 Anion gap [Moles/Vol] 6 mmol/L Normal 3-13 [facility] Comment on above: Performed By: #### B MP3M, HEMDF #### [address] [address] Calcium [Mass/Vol] 8.8 mg/dL Normal 8.4-10.4 [facility] Comment on above: Performed By: #### B MP3M, HEMDF #### [facility] [address] [place] [address] CO2 [Moles/Vol] 24 mmol/L Normal 22-30 [facility] Comment on above: Performed By: #### B MP3M, HEMDF #### [facility] [address] [place], [place] Creatinine [Mass/Vol] 0.95 mg/dL Normal 0.52-1.25 [facility] Comment on above: Performed By: #### B MP3M, HEMDF #### [address] [place] [address] GFR/1.73 sq M predicted among blacks MDRD (S/P/Bld) [Vol rate/Area] 73.4 mL/min/{1.73_m2} Normal >60 [facility] Comment on above: Performed By: #### B MP3M, HEMDF #### [address] GFR/1.73 sq M predicted among non-blacks MDRD (S/P/Bld) [Vol rate/Area] 63.3 mL/min/{1.73_m2} Normal >60 [facility] Comment on above: Result Comment: KDIG O guidelines provide the following GFR categories: Stage GFR(ml/min/1.73 m2) Terms G1 >=90 Normal or high G2 60-89 Mildly decreased* G3a 45-59 Mildly to moderately decreased G3b 30-44 Moderately to severely decreased G4 15-29 Severely decreased G5 <15 Kidney failure *Relative to young adult level. In the absence of evidence of kidney damage, neither GFR category G1 nor G2 fulfill the criteria for CKD. The CKD-EPI equation is validated in individuals 18 years of age and older. Currently the best equation for estimating glomerular filtration rate (GFR) from serum creatinine in children is the Bedside Skinner equation. It is less accurate in patients with extremes of muscle mass, restriction of dietary protein, ingestion of creatine, extra-renal metabolism of creatinine, or treatment with medications that affect renal tubular creatinine secretion. Performed By: #### B MP3M, HEMDF #### [address] Glucose [Mass/Vol] 123 mg/dL High 70-100 [facility] Comment on above: Performed By: #### B MP3M, HEMDF #### [address] Urea nitrogen [Mass/Vol] 14 mg/dL Normal 7-20 [facility] Comment on above: Performed By: #### B MP3M, HEMDF #### [facility] [address] [place], [place] Chloride [Moles/Vol] 105 mmol/L Normal 98-107 [facility] Comment on above: Performed By: #### B MP3M, HEMDF #### [facility] [address] [place], [place] Potassium [Moles/Vol] 4.1 mmol/L Normal 3.5-5.1 [facility] Comment on above: Performed By: #### B MP3M, HEMDF #### [facility] [address] [place], [place] Sodium [Moles/Vol] 135 mmol/L Normal 135-145 [facility] Comment on above: Performed By: #### B MP3M, HEMDF #### [facility] [address] [place], [place] Basic Metabolic Panel w/ Ref aarti to MGon 01-30-2021 Anion gap [Moles/Vol] 6 mmol/L 3 - 13 mmol/L [facility] Work Phone: Calcium [Mass/Vol] 8.8 mg/dL 8.4 - 10. 4 mg/dL [facility] Work Phone: Chloride [Moles/Vol] 105 mmol/L 98 - 10 7 mmol/L [facility] Work Phone: CO2 [Moles/Vol] 24 mmol/L 22 - 30 mmol/L [facility] Work Phone: Creatinine [Mass/Vol] 0.95 mg/dL 0.52 - 1.25 mg/dL [facility] Work Phone: EGFR IF NonAfrican Japanese 63.3 mL/min >60 [facility] Work Phone: Comment on above: KDIGO guidelines pro vide the following GFR categories: Stage GFR(ml/min/1.73 m2) Terms G1 >=90 Normal or high G2 60-89 Mildly decreased* G3a 45-59 Mildly to moderately decreased G3b 30-44 Moderately to severely decreased G4 15-29 Severely decreased G5 <15 Kidney failure *Relative to young adult level. In the absence of evidence of kidney damage, neither GFR category G1 nor G2 fulfill the criteria for CKD. The CKD-EPI equation is validated in individuals 18 years of age and older. Currently the best equation for estimating glomerular filtration rate (GFR) from serum creatinine in children is the Bedside Skinner equation. It is less accurate in patients with extremes of muscle mass, restriction of dietary protein, ingestion of creatine, extra-renal metabolism of creatinine, or treatment with medications that affect renal tubular creatinine secretion. GFR/1.73 sq M predicted among blacks MDRD (S/P/Bld) [Vol rate/Area] 73.4 mL/min/{1.73_m2} >60 [employer] Work Phone: [phone] Glucose [Mass/Vol] 123 mg/dL High 70 - 100 mg/dL [employer] Work Phone: [phone] Interpretation and review of laboratory results Abnormal [facility] Work Phone: Potassium [Moles/Vol] 4.1 mmol/L 3.5 - 5.1 mmol/L [employer] Work Phone: Sodium [Moles/Vol] 135 mmol/L 135 - 145 mmol/L [employer] Work Phone: [phone] Urea nitrogen [Mass/Vol] 14 mg/dL 7 - 20 mg/dL [employer] Work Phone: [phone] Test Performed by [employer], [address] [place] [address] [employer] Work Phone: [phone] CBC auto differentialon 01-06 Absolute Baso # 0.1 10*3/uL 0.0 - 0.2 10*3/uL [employer] Work Phone: [phone] Absolute Neut # 4.8 10*3/uL 1.8 - 7.0 10*3/uL [employer] Work Phone: [phone] Basophils/100 WBC (Bld) 1.2 % 0.0 - 2.0 % [employer] Work Phone: Eosinophils (Bld) [#/Vol] 0.1 10*3/uL 0.0 - 0.5 10*3/uL [facility] Work Phone: [phone] Eosinophils/100 WBC (Bld) 1.0 % 1.0 - 6.0 % [employer] Work Phone: Erythrocyte distribution width (RBC) [Ratio] 19.3 % High 11.5 - 14.5 % [employer] Work Phone: [phone] Granulocytes/100 WBC (Bld) 64.5 % 40.0 - 80.0 % [employer] Work Phone: Hematocrit (Bld) [Volume fraction] 29.8 % Low 35.0 - 47.0 % [employer] Work Phone: Hemoglobin (Bld) [Mass/Vol] 9.7 g/dL Low 11.7 - 16.0 g/dL [employer] Work Phone: [phone] Interpretation and review of laboratory results Abnormal [employer] Phone: Lymphocytes (Bld) [#/Vol] 1.9 10*3/uL 1.0 - 4.3 10*3/uL [employer] Work Phone: Lymphocytes/100 WBC (Bld) 25.5 % 20.0 - 40.0 % [employer] Work Phone: MCH (RBC) [Entitic mass] 25.6 pg Low 26. 0 - 34.0 pg [employer] Work Phone: MCHC (RBC) [Mass/Vol] 32.7 % 32.0 - 36.0 % [employer] Work Phone: MCV (RBC) [Entitic vol] 78.2 fL Low 79.0 - 98.0 fL [employer] Work Phone: Monocytes (Bld) [#/Vol] 0.6 10*3/uL 0.0 - 0.8 10*3/uL [employer] Work Phone: [phone] Monocytes/100 WBC (Bld) 7.8 % 2.0 - 10.0 % [employer] Work Phone: [phone] Platelet mean volume (Bld) [Entitic vol] 8.7 fL 7.4 - 10.4 fL [employer] Work Phone: Platelets (Bld) [#/Vol] 139 10*3/uL Low 140 - 440 10*3/uL [employer] Work Phone: [phone] RBC (Bld) [#/Vol] 3.81 10*6/uL 3.80 - 5.2 0 10*6/uL [employer] Work Phone: WBC (Bld) [#/Vol] 7.4 10*3/uL 3.6 - 10.7 10*3/uL [employer] Work Phone: Test Performed by [employer], [address] [place] [address] [employer] Work Phone: [phone] CR Chest Portableon 01-31-20 21 CR Chest Portable Patient Name: HALEIGH ALMEIDA Diagnostic Radiology ACCESSION EXAM DATE/TIME PROCEDURE ORDERING PROVIDER [id number] 01/30/2021 06:07 EDT CR Chest Portable Bucky SHABAZZ HAMMETT CPT code 13266 Reason For Exam (CR Chest Portable) S/p Right VATS Report CHEST - PORTABLE: CLINICAL INDICATION: Follow-up for surgery on the right TECHNIQUE: Portable AP COMPARISON: One day ago FINDINGS: Life support devices: Right-sided chest tube is noted Heart/Mediastinum: Unchanged Lungs/Pleura: Ill-defined opacities noted in the right mid hemithorax extending over dimension of up to approximately 3 cm with some overlying surgical clips. There is further atelectasis at the lung bases without new consolidation or pneumothorax. The right costophrenic angle is sharp but the left is obscured. IMPRESSION: 1. Right chest tube with opacity in the right mid hemithorax unchanged. 2. No pneumothorax. 3. Atelectasis at the lung bases. Report Dictated on Final Dictated: 01/30/2021 8:18 am Dictating Physician: MD DUNNE JEFFREY Signed Date and Time: 01/30/2021 8:19 am Signed by: MD DUNNE JEFFREY Transcribed Date and Time: 01/30/2021 8:18 Normal [facility] Hemogram w/ Autodiffon 01-30 Abs Baso Cnt 0.1 10*3/uL Normal 0.0-0.2 [facility] Comment on above: Performed By: #### B MP3M, HEMDF #### [facility] [address] [place] [address] Abs Neutrophile Cnt 4.8 10*3/uL Normal 1.8-7.0 [facility] Comment on above: Performed By: #### B MP3M, HEMDF #### [facility] [address] [place] [address] Basophils/100 WBC (Bld) 1.2 % Normal 0.0-2.0 [facility] Comment on above: Performed By: #### B MP3M, HEMDF #### [address] [place] [address] Eosinophils (Bld) [#/Vol] 0.1 10*3/uL Normal 0.0-0.5 [facility] Comment on above: Performed By: #### B MP3M, HEMDF #### [address] [place] [address] Eosinophils/100 WBC (Bld) 1.0 % Normal 1.0-6.0 [facility] Comment on above: Performed By: #### B MP3M, HEMDF #### [address] [place] [address] Erythrocyte distribution width (RBC) [Ratio] 19.3 % High 11.5-14.5 [facility] Comment on above: Performed By: #### B MP3M, HEMDF #### [facility] [address] [place] [address] Granulocytes/100 WBC (Bld) 64.5 % Normal 40.0-80.0 [facility] Comment on above: Performed By: #### B MP3M, HEMDF #### [address] [place] [address] Hematocrit (Bld) [Volume fraction] 29.8 % Low 35.0-47.0 [facility] Comment on above: Performed By: #### B MP3M, HEMDF #### [facility] [address] [place], [place] Hemoglobin (Bld) [Mass/Vol] 9.7 g/dL Low 11.7-16.0 [facility] Comment on above: Performed By: #### B MP3M, HEMDF #### [facility] [address] [place], [place] Lymphocytes (Bld) [#/Vol] 1.9 10*3/uL Normal 1.0-4.3 [facility] Comment on above: Performed By: #### B MP3M, HEMDF #### [address] [place], [place] Lymphocytes/100 WBC (Bld) 25.5 % Normal 20.0-40.0 [facility] Comment on above: Performed By: #### B MP3M, HEMDF #### [address] [place], [place] MCH (RBC) [Entitic mass] 25.6 pg Low 26.0-34.0 [facility] Comment on above: Performed By: #### B MP3M, HEMDF #### [address] [place], [place] MCHC (RBC) [Mass/Vol] 32.7 % Normal 32.0-36.0 [facility] Comment on above: Performed By: #### B MP3M, HEMDF #### [address] [place], [place] MCV (RBC) [Entitic vol] 78.2 fL Low 79.0-98.0 [facility] Comment on above: Performed By: #### B MP3M, HEMDF #### [address] [place], [place] Monocytes (Bld) [#/Vol] 0.6 10*3/uL Normal 0.0-0.8 [facility] Comment on above: Performed By: #### B MP3M, HEMDF #### [address] [place] [address] Monocytes/100 WBC (Bld) 7.8 % Normal 2.0-10.0 [facility] Comment on above: Performed By: #### B MP3M, HEMDF #### [facility] [address] [place] [address] Platelet mean volume (Bld) [Entitic vol] 8.7 fL Normal 7.4-10.4 [facility] Comment on above: Performed By: #### B MP3M, HEMDF #### [facility] [address] [place] [address] Platelets (Bld) [#/Vol] 139 10*3/uL Low 140-440 [facility] Comment on above: Performed By: #### B MP3M, HEMDF #### [facility] [address] [place] [address] RBC (Bld) [#/Vol] 3.81 10*6/uL Normal 3.80-5.20 [facility] Comment on above: Performed By: #### B MP3M, HEMDF #### [address] [place] [address] WBC (Bld) [#/Vol] 7.4 10*3/uL Normal 3.6-10.7 [facility] Comment on above: Performed By: #### B MP3M, HEMDF #### [address] [place] [address] XR CHEST PORTABLEon 01-31-20 [facility] Incoming [facility] - 01/30/2021 8:20 AM EDT Patient Name: HALEIGH ALMEIDA Diagnostic Radiology ACCESSION EXAM DATE/TIME PROCEDURE ORDERING PROVIDER [id number] 01/30/2021 06:07 EDT CR Chest Portable Bucky SHABAZZ SARAH CPT code 49741 Reason For Exam (CR Chest Portable) S/p Right VATS Report CHEST - PORTABLE: CLINICAL INDICATION: Follow-up for surgery on the right TECHNIQUE: Portable AP COMPARISON: One day ago FINDINGS: Life support devices: Right-sided chest tube is noted Heart/Mediastinum: Unchanged Lungs/Pleura: Ill-defined opacities noted in the right mid hemithorax extending over dimension of up to approximately 3 cm with some overlying surgical clips. There is further atelectasis at the lung bases without new consolidation or pneumothorax. The right costophrenic angle is sharp but the left is obscured. IMPRESSION: 1. Right chest tube with opacity in the right mid hemithorax unchanged. 2. No pneumothorax. 3. Atelectasis at the lung bases. Report Dictated on --- Final --- Dictated: 01/30/2021 8:18 am Dictating Physician: MD DUNNE JEFFREY Signed Date and Time: 01/30/2021 8:19 am Signed by: MD DUNNE JEFFREY Transcribed Date and Time: 01/30/2021 8:18 [facility] Work Phone: [id number]iology ACCESSION EXAM DATE/TIME PROCEDURE ORDERING PROVIDER [id number] 01/30/2021 06:07 EDT CR Chest Portable Bucky SHABAZZ SARAH CPT code 34600 Reason For Exam (CR Chest Portable) S/p Right VATS Report CHEST - PORTABLE: CLINICAL INDICATION: Follow-up for surgery on the right TECHNIQUE: Portable AP COMPARISON: One day ago FINDINGS: Life support devices: Right-sided chest tube is noted Heart/Mediastinum: Unchanged Lungs/Pleura: Ill-defined opacities noted in the right mid hemithorax extending over dimension of up to approximately 3 cm with some overlying surgical clips. There is further atelectasis at the lung bases without new consolidation or pneumothorax. The right costophrenic angle is sharp but the left is obscured. IMPRESSION: 1. Right chest tube with opacity in the right mid hemithorax unchanged. 2. No pneumothorax. 3. Atelectasis at the lung bases. Report Dictated on --- Final --- Dictated: 01/30/2021 8:18 am Dictating Physician: MD DUNNE JEFFREY Signed Date and Time: 01/30/2021 8:19 am Signed by: MD UZAIR, REJI Transcribed Date and Time: 01/30/2021 8:18 [facility] Work Phone: Basic Metabolic Panelon 01-06 Calcium [Mass/Vol] 8.3 mg/dL Low 8.4-10.4 [facility] Comment on above: Performed By: #### H EMDF, BMP3M ####[facility] [id number] [place], [place] Glucose [Mass/Vol] 133 mg/dL High 70-100 [facility] Comment on above: Performed By: #### H EMDF, BMP3M ####[facility] [id number] [place], [place] Urea nitrogen [Mass/Vol] 15 mg/dL Normal 7-20 [facility] Comment on above: Performed By: #### H EMDF, BMP3M ####[facility] [id number] [place], [place] Anion gap [Moles/Vol] 6 mmol/L Normal 3-13 [facility] Comment on above: Performed By: #### H EMDF, BMP3M ####[facility] [id number] [place], [place] CO2 [Moles/Vol] 20 mmol/L Low 22-30 [facility] Comment on above: Performed By: #### H EMDF, BMP3M ####[facility] [id number] [place], [place] Creatinine [Mass/Vol] 0.93 mg/dL Normal 0.52-1.25 [facility] Comment on above: Performed By: #### H EMDF, BMP3M ####[facility] [id number] [place], [place] GFR/1.73 sq M predicted among blacks MDRD (S/P/Bld) [Vol rate/Area] 75.3 mL/min/{1.73_m2} Normal >60 [facility] Comment on above: Performed By: #### H EMDF, BMP3M ####[facility] [id number] [place], [place] GFR/1.73 sq M predicted among non-blacks MDRD (S/P/Bld) [Vol rate/Area] 65.0 mL/min/{1.73_m2} Normal >60 [facility] Comment on above: Result Comment: KDIG O guidelines provide the following GFR categories: Stage GFR(ml/min/1.73 m2) Terms G1 >=90 Normal or high G2 60-89 Mildly decreased* G3a 45-59 Mildly to moderately decreased G3b 30-44 Moderately to severely decreased G4 15-29 Severely decreased G5 <15 Kidney failure *Relative to young adult level. In the absence of evidence of kidney damage, neither GFR category G1 nor G2 fulfill the criteria for CKD. The CKD-EPI equation is validated in individuals 18 years of age and older. Currently the best equation for estimating glomerular filtration rate (GFR) from serum creatinine in children is the Bedside Skinner equation. It is less accurate in patients with extremes of muscle mass, restriction of dietary protein, ingestion of creatine, extra-renal metabolism of creatinine, or treatment with medications that affect renal tubular creatinine secretion. Performed By: #### H DEVYN BMP3M ####[address] [place], [place] Chloride [Moles/Vol] 104 mmol/L Normal 98-107 [facility] Comment on above: Performed By: #### H DEVYN BMP3M ####[address] [place], [place] Potassium [Moles/Vol] 4.6 mmol/L Normal 3.5-5.1 [facility] Comment on above: Performed By: #### H DEVYN BMP3M ####[address] [place], [place] Sodium [Moles/Vol] 130 mmol/L Low 135-145 [facility] Comment on above: Performed By: #### H DEVYN BMP3M ####[address] [place], [place] Basic Metabolic Panel w/ Ref aarti to MGon 01-29-2021 Anion gap [Moles/Vol] 6 mmol/L 3 - 13 mmol/L [facility] Work Phone: [phone] Calcium [Mass/Vol] 8.3 mg/dL Low 8.4 - 10. 4 mg/dL [facility] Work Phone: [phone] Chloride [Moles/Vol] 104 mmol/L 98 - 10 7 mmol/L [facility] Work Phone: [phone] CO2 [Moles/Vol] 20 mmol/L Low 22 - 30 mmol/L [facility] Work Phone: [phone] Creatinine [Mass/Vol] 0.93 mg/dL 0.52 - 1.25 mg/dL [facility] Work Phone: [phone] IF NonAfrican Japanese 65.0 mL/min >60 [facility] Work Phone: [phone] Comment on above: KDIGO guidelines pro vide the following GFR categories: Stage GFR(ml/min/1.73 m2) Terms G1 >=90 Normal or high G2 60-89 Mildly decreased* G3a 45-59 Mildly to moderately decreased G3b 30-44 Moderately to severely decreased G4 15-29 Severely decreased G5 <15 Kidney failure *Relative to young adult level. In the absence of evidence of kidney damage, neither GFR category G1 nor G2 fulfill the criteria for CKD. The CKD-EPI equation is validated in individuals 18 years of age and older. Currently the best equation for estimating glomerular filtration rate (GFR) from serum creatinine in children is the Bedside Skinner equation. It is less accurate in patients with extremes of muscle mass, restriction of dietary protein, ingestion of creatine, extra-renal metabolism of creatinine, or treatment with medications that affect renal tubular creatinine secretion. GFR/1.73 sq M predicted among blacks MDRD (S/P/Bld) [Vol rate/Area] 75.3 mL/min/{1.73_m2} >60 [facility] Work Phone: [phone] Glucose [Mass/Vol] 133 mg/dL High 70 - 100 mg/dL [facility] Work Phone: [phone] Interpretation and review of laboratory results Abnormal [facility] Work Phone: [phone] Potassium [Moles/Vol] 4.6 mmol/L 3.5 - 5.1 mmol/L [facility] Work Phone: [phone] Sodium [Moles/Vol] 130 mmol/L Low 135 - 145 mmol/L [employer] Work Phone: 1 Urea nitrogen [Mass/Vol] 15 mg/dL 7 - 20 mg/dL [employer] Work Phone: Test Performed by [employer] [address] [employer] Work Phone: 1 CBC auto differentialon 01-06 Absolute Baso # 0.0 10*3/uL 0.0 - 0.2 10*3/uL [employer] Work Phone: Absolute Neut # 8.1 10*3/uL High 1.8 - 7.0 10*3/uL [employer] Work Phone: Basophils/100 WBC (Bld) 0.3 % 0.0 - 2.0 % [employer] Work Phone: Eosinophils (Bld) [#/Vol] 0.0 10*3/uL 0.0 - 0.5 10*3/uL [employer] Work Phone: Eosinophils/100 WBC (Bld) 0.0 % Low 1.0 - 6.0 % [employer] Work Phone: Erythrocyte distribution width (RBC) [Ratio] 19.1 % High 11.5 - 14.5 % [employer] Work Phone: Granulocytes/100 WBC (Bld) 79.0 % 40.0 - 80.0 % [employer] Phone: Hematocrit (Bld) [Volume fraction] 28.3 % Low 35.0 - 47.0 % [employer] Work Phone: Hemoglobin (Bld) [Mass/Vol] 9.2 g/dL Low 11.7 - 16.0 g/dL [employer] Work Phone: Interpretation and review of laboratory results Abnormal [employer] Work Phone: Lymphocytes (Bld) [#/Vol] 1.4 10*3/uL 1.0 - 4.3 10*3/uL [employer] Work Phone: Lymphocytes/100 WBC (Bld) 13.5 % Low 20.0 - 40.0 % [employer] Work Phone: [phone] MCH (RBC) [Entitic mass] 25.7 pg Low 26. 0 - 34.0 pg [employer] Work Phone: MCHC (RBC) [Mass/Vol] 32.6 % 32.0 - 36.0 % [employer] Work Phone: 1 MCV (RBC) [Entitic vol] 78.8 fL Low 79.0 - 98.0 fL [employer] Work Phone: 1 Monocytes (Bld) [#/Vol] 0.7 10*3/uL 0.0 - 0.8 10*3/uL [employer] Work Phone: Monocytes/100 WBC (Bld) 7.2 % 2.0 - 10.0 % [employer] Phone: Platelet mean volume (Bld) [Entitic vol] 8.7 fL 7.4 - 10.4 fL [employer] Phone: Platelets (Bld) [#/Vol] 152 10*3/uL 140 - 440 10*3/uL [employer] Work Phone: RBC (Bld) [#/Vol] 3.59 10*6/uL Low 3.80 - 5.2 0 10*6/uL [employer] Phone: WBC (Bld) [#/Vol] 10.3 10*3/uL 3.6 - 10.7 10*3/uL [employer] Work Phone: Test Performed by [employer], [address] [place] [address] [employer] Work Phone: [phone] CR Chest Portableon 01-30-20 21 CR Chest Portable Patient Name: HALEIGH ALMEIDA Diagnostic Radiology ACCESSION EXAM DATE/TIME PROCEDURE ORDERING PROVIDER [id number] 01/29/2021 05:44 EDT CR Chest Portable Bucky SHABAZZ HAMMETT CPT code 33831 Reason For Exam (CR Chest Portable) S/p Right VATS Report CLINICAL INFORMATION: Status post right-sided VATS. Right-sided chest tube. CHEST X-RAY, PORTABLE, 0526 hours: An AP portable view is compared to the prior examination of the previous day. There is no change in the position of the right-sided chest tube. The cardiac silhouette is normal in size. There is stable left mid to lower lung atelectasis. There is improvement of the patchy small lateral right mid lung consolidation. There is decreased lateral right chest wall subcutaneous emphysema. No evidence of other acute process or interval change. Report Dictated on Final Dictated: 01/29/2021 7:35 am Dictating Physician: MD MACDONALD HARLAN Signed Date and Time: 01/29/2021 7:42 am Signed by: MD MACDONALD HARLAN Transcribed Date and Time: 01/29/2021 7:35 Normal [facility] Hemogram w/ Autodiffon 01-29 Abs Baso Cnt 0.0 10*3/uL Normal 0.0-0.2 [facility] Comment on above: Performed By: #### H EMDF BMP3M ####[facility] [address] [place] [address] Abs Neutrophile Cnt 8.1 10*3/uL High 1.8-7.0 [facility] Comment on above: Performed By: #### H EMDF BMP3M ####[facility] [address] [place] [address] Basophils/100 WBC (Bld) 0.3 % Normal 0.0-2.0 [facility] Comment on above: Performed By: #### H EMDF BMP3M ####[facility] [address] [place] [address] Eosinophils (Bld) [#/Vol] 0.0 10*3/uL Normal 0.0-0.5 [facility] Comment on above: Performed By: #### H EMDF BMP3M ####[facility] [address] [place] [address] Eosinophils/100 WBC (Bld) 0.0 % Low 1.0-6.0 [facility] Comment on above: Performed By: #### H DEVYN BMP3M ####[address] Erythrocyte distribution width (RBC) [Ratio] 19.1 % High 11.5-14.5 [facility] Comment on above: Performed By: #### H DEVYN BMP3M ####[address] Granulocytes/100 WBC (Bld) 79.0 % Normal 40.0-80.0 [facility] Comment on above: Performed By: #### H DEVYN BMP3M ####[address] Hematocrit (Bld) [Volume fraction] 28.3 % Low 35.0-47.0 [facility] Comment on above: Performed By: #### H DEVYN BMP3M ####[address] Hemoglobin (Bld) [Mass/Vol] 9.2 g/dL Low 11.7-16.0 [facility] Comment on above: Performed By: #### H DEVYN BMP3M ####[address] Lymphocytes (Bld) [#/Vol] 1.4 10*3/uL Normal 1.0-4.3 [facility] Comment on above: Performed By: #### H DEVYN BMP3M ####[address] Lymphocytes/100 WBC (Bld) 13.5 % Low 20.0-40.0 [facility] Comment on above: Performed By: #### H DEVYN BMP3M ####[address] MCH (RBC) [Entitic mass] 25.7 pg Low 26.0-34.0 [facility] Comment on above: Performed By: #### H DEVYN BMP3M ####[address], [place] MCHC (RBC) [Mass/Vol] 32.6 % Normal 32.0-36.0 [facility] Comment on above: Performed By: #### Camille SHEPARD BMP3M ####[address] MCV (RBC) [Entitic vol] 78.8 fL Low 79.0-98.0 [facility] Comment on above: Performed By: #### Camille SHEPARD BMP3M ####[address] Monocytes (Bld) [#/Vol] 0.7 10*3/uL Normal 0.0-0.8 [facility] Comment on above: Performed By: #### H DEVYN BMP3M ####[address] Monocytes/100 WBC (Bld) 7.2 % Normal 2.0-10.0 [facility] Comment on above: Performed By: #### H DEVYN BMP3M ####[address] Platelet mean volume (Bld) [Entitic vol] 8.7 fL Normal 7.4-10.4 [facility] Comment on above: Performed By: #### H DEVYN BMP3M ####[address] Platelets (Bld) [#/Vol] 152 10*3/uL Normal 140-440 [facility] Comment on above: Performed By: #### H DEVYN BMP3M ####[address] RBC (Bld) [#/Vol] 3.59 10*6/uL Low 3.80-5.20 [facility] Comment on above: Performed By: #### H DEVYN BMP3M ####[address] WBC (Bld) [#/Vol] 10.3 10*3/uL Normal 3.6-10.7 [facility] Comment on above: Performed By: #### H [facility] ####[facility] [place] [address] XR CHEST PORTABLEon 01-30-20 [place], [facility] Incoming Radiology Results From [facility] - 01/29/2021 7:43 AM EDT Patient [facility]: [id number] Radiology ACCESSION EXAM DATE/TIME PROCEDURE ORDERING PROVIDER [id number] 01/29/2021 05:44 EDT CR Chest Portable Bucky SHABAZZ SARAH CPT code 71239 Reason For Exam (CR Chest Portable) S/p Right VATS Report CLINICAL INFORMATION: Status post right-sided VATS. Right-sided chest tube. CHEST X-RAY, PORTABLE, 0526 hours: An AP portable view is compared to the prior examination of the previous day. There is no change in the position of the right-sided chest tube. The cardiac silhouette is normal in size. There is stable left mid to lower lung atelectasis. There is improvement of the patchy small lateral right mid lung consolidation. There is decreased lateral right chest wall subcutaneous emphysema. No evidence of other acute process or interval change. Report Dictated on --- Final --- Dictated: 01/29/2021 7:35 am Dictating Physician: MD MACDONALD HARLAN Signed Date and Time: 01/29/2021 7:42 am Signed by: MD MACDONALD HARLAN Transcribed Date and Time: 01/29/2021 7:35 [facility] Work Phone: [facility] Name: [id number] Diagnostic Radiology ACCESSION EXAM DATE/TIME PROCEDURE ORDERING PROVIDER [id number] 01/29/2021 05:44 EDT CR Chest Portable Bucky SHABAZZ SARAH CPT code 35048 Reason For Exam (CR Chest Portable) S/p Right VATS Report CLINICAL INFORMATION: Status post right-sided VATS. Right-sided chest tube. CHEST X-RAY, PORTABLE, 0526 hours: An AP portable view is compared to the prior examination of the previous day. There is no change in the position of the right-sided chest tube. The cardiac silhouette is normal in size. There is stable left mid to lower lung atelectasis. There is improvement of the patchy small lateral right mid lung consolidation. There is decreased lateral right chest wall subcutaneous emphysema. No evidence of other acute process or interval change. Report Dictated on --- Final --- Dictated: 01/29/2021 7:35 am Dictating Physician: MD MACDONALD HARLAN Signed Date and Time: 01/29/2021 7:42 am Signed by: MD MACDONALD HARLAN Transcribed Date and Time: 01/29/2021 7:35 [facility] Work Phone: CR Chest Portableon 01-29-20 CR Chest Portable Patient Name: HALEIGH ALMEIDA Diagnostic Radiology ACCESSION EXAM DATE/TIME PROCEDURE ORDERING PROVIDER [id number] 01/28/2021 14:18 EDT CR Chest Portable Bucky SHABAZZ RASHIDA CPT code 65829 Reason For Exam (CR Chest Portable) Chest tube placement Report PORTABLE CHEST CLINICAL INDICATION: Right chest tube placement TECHNIQUE: Portable AP COMPARISON: Two days ago FINDINGS: Exam quality: EKG leads obscure small portions of the chest. Heart is upper normal and there is atherosclerotic calcification of the aorta. A right chest tube is noted without pneumothorax. Elongated opacity in the left mid hemithorax corresponds to atelectasis. There is patchy consolidation at the base of the right upper lobe. Subcutaneous emphysema is noted along the right chest wall. Sternal wires are noted. IMPRESSION: Right chest tube with subcutaneous emphysema. No identifiable pneumothorax. Patchy consolidation at the base of the right upper lobe Report Dictated on Final Dictated: 01/28/2021 3:56 pm Dictating Physician: MD DUNNE JEFFREY Signed Date and Time: 01/28/2021 3:58 pm Signed by: MD DUNNE JEFFREY Transcribed Date and Time: 01/28/2021 3:56 Normal [facility] Op Noteon 01-28-2021 Op Note PATIENT: HALEIGH ALMEIDA ADMISSION DATE: 01/28/2021 SURGERY DATE: 01/28/2021 DATE OF : 1955 AGE: 65 ADMITTING PHYSICIAN: Victor M Darby MD ATTENDING PHYSICIAN: Victor M Darby MD DICTATING PHYSICIAN: Victor M Darby MD OPERATIVE RECORD PRIMARY CARE PHYSICIAN: Dr. Radha Odom Procedure: 1. FIBEROPTIC BRONCHOSCOPY. 2. RIGHT VATS CONVERTED TO RIGHT MINITHORACOTOMY. 3. RIGHT UPPER LOBE PULMONARY WEDGE RESECTION. 4. THORACIC LYMPHADENECTOMY LEVELS 2, 4, AND 7. Preoperative Diagnosis: Right upper lobe lung mass. Postoperative Diagnosis: Right upper lobe adenocarcinoma. Anesthesia: General endotracheal. Complications: None. Findings: The patient had massive circumferentially adhesions of the lung to the chest wall and mediastinum and diaphragm, requiring conversion of VATS to open thoracotomy surgery. I took down all of the adhesions except for an area about 6 x 6 inches where the middle and upper lobe were integral medially with the heart. Apparently, during the heart surgery, the right pleural cavity was opened and the pericardial sac was allowed to fall posteriorly, which exposed the right atrium, SVC, and right ventricular wall. I found the RV wall, which was integral with the lung, particularly the middle lobe and portion of the upper lobe. The right atrium was densely adherent to the right upper and middle lobe as well. There was clearly not a dissection plane to separate the 2 and to perform a bilobectomy based upon the lack of the fissure between the middle and upper lobe, which would be mandated for proper cancer surgery, I would have to leave a substantial portion of the middle and upper lobe attached to the heart, which I elected not to do, but rather the wedge resection and lymph node dissection for staging purposes. Description of Procedure: With the retractors in position, I did the pulmonary wedge resection of the right upper lobe lung mass, which was within the fissure of the right upper lobe using a green load Ethicon stapling device. The tumor appeared to extend fairly deep into the lobe. It was possible that there will be a positive margin on the tumor. We will need to wait for final pathology on the wedge resection. Several staple lines converted at the site of the tumor, which was resected. I dissected out levels 2, 4 and 7 lymph nodes and also searched to the level 9, which there was no lymph node evident in this area for removal. The 24-Cuban Shawn drain was placed in the chest cavity through a separate incision site. The lung was submerged under warm sterile water and no air leak was evident. The ribs were reapproximated with #2 Vicryl in interrupted fashion. Soft tissues were closed with Vicryl and skin with Monocryl in a subcuticular fashion. Dermabond dressing applied. There was no air leak on the Pleur-evac as well. Fiberoptic bronchoscopy revealed no intra-airway abnormalities. cc: Dr. Radha Odom [facility] Job ID: [id number] Victor M Darby MD DOD:01/28/2021 01:47 P [place]/vianey DOT:01/28/2021 02:51 P Job Number: [id number] Document Number: [id number] cc: Victor M Darby MD [facility] [address] [place] [address] Normal [facility] Surgical Pathologyon 021 Surgical Pathology [id number] [facility] PATHOLOGY AND LABORATORY MEDICINE [address] [place], [place] [id number] FINAL SURGICAL PATHOLOGY REPORT NAME: WILLIENATALIAHALEIGH : 1955 65 Y F BILLING NO.: [id number] LOCATION: [facility] 6125 01 PROCEDURE 01/28/2021 DATE: SURGEON: VICTOR M DARBY MD RECEIVED 01/29/2021 DATE: ATTENDING: VICTOR M DARBY MD REPORT DATE: 02/03/2021 COPIES TO: DIAGNOSIS: A. RIGHT UPPER LOBE, WEDGE BIOPSY - INVASIVE ADENOCARCINOMA. SEE BELOW B. 4R LYMPH NODE, BIOPSY - NEGATIVE FOR MALIGNANCY C. 2R LYMPH NODE, BIOPSY - NEGATIVE FOR MALIGNANCY D. LEVEL 7, BIOPSY - NEGATIVE FOR MALIGNANCY SPECIMEN Procedure: Wedge resection Specimen Laterality: Right TUMOR Tumor Site: Upper lobe of lung Histologic Type: Invasive adenocarcinoma Total Tumor Size (size of entire tumor): Greatest Dimension (Centimeters) - 1.4 cm Size of Invasive Component: Greatest Dimension (Centimeters) - 1.4 cm Tumor Focality: Single focus Visceral Pleura Invasion: Present Direct Invasion of Adjacent Structures: No adjacent structures present Treatment Effect: No known presurgical therapy Lymphovascular Invasion: Cannot be determined MARGINS Bronchial Margin: Not applicable Vascular Margin: Not applicable Parenchymal Margin: Cannot be assessed LYMPH NODES Number of Lymph Nodes Involved: 0 Number of Lymph Nodes Examined: 3 [place] Stations Examined: 2R: Upper paratracheal, 4R: Lower paratracheal, 7: Subcarinal PATHOLOGIC STAGE CLASSIFICATION (pTNM, AJCC 8th Edition) Note: Reporting of pT, pN, and (when applicable) pM categories is based on information available to the pathologist at the time the report is issued. As per the AJCC (Chapter 1, 8th Ed.) it is the managing physician's responsibility to establish the final pathologic stage based upon all pertinent information, including but potentially not limited to this pathology report. Primary Tumor (pT): pT2a Regional Lymph Nodes (pN): pN0 QUALITY ENG TUMOR BLOCK(S): A1 SMT/SMT Signature> S KIMMY CARDOSO M.D. CLINICAL INFORMATION: R91.8 SPECIMEN: (A) LUNG, WEDGE BIOPSY/EXCISION (B) LYMPH NODE(S) SPECIMEN (C) LYMPH NODE(S) SPECIMEN (D) LYMPH NODE(S) SPECIMEN INTRAOPERATIVE CONSULTATION/FROZEN SECTION DIAGNOSIS: FROZEN SECTION DIAGNOSIS: RUL wedge: Invasive adenocarcinoma. Nolberto Walton M.D., Marysol Sarah D.O. GROSS DESCRIPTION: A. Received fresh for frozen section labeled right upper lobe wedge is a wedge of lung measuring 4 x 2.5 x 1.5 cm. There is a row of metallic susanna present along one edge. The specimen has previously been transected. A section previously utilized for frozen section contains what appears to be a keene nodular mass measuring approximately 0.5 x 0.5 cm. It is ill-defined. A residual mass is not identified within the remaining tissue after fixation. Portion containing the mass previously utilized for frozen section submitted in cassette A1. The remainder of the tissue is serially sectioned and entirely submitted in cassettes A2 and A3, after the susanna had been removed. B. Received in formalin labeled 4R lymph node is a dark keene-black nodular tissue segment 0.6 x 0.4 x 0.4 cm. Cut surface is keene-black. The specimen is bisected and entirely submitted in a single cassette. C. Received in formalin labeled 2R lymph node is an irregular segment of yellow-vu tissue which measures approximately 1.2 x 0.8 x 0.4 cm. Upon transection, cut surfaces are pink-vu. The specimen is bisected and entirely submitted in a single cassette. D. Received in formalin labeled level 7 lymph node is a small nodular segment of keene-vu tissue measuring 0.6 x 0.5 x 0.4 cm. Cut surface is keene-black. The specimen is bisected and entirely submitted in a single cassette. JCK/0RW Disclaimer: The following statement applies to all immunohistochemistry, in situ hybridization, molecular studies, and immunofluorescence testing. The use of one or more reagents in the above tests is regulated as an analyte specific reagent (ASR). These tests were developed and their performance characteristics determined by the clinical laboratories of [facility]. They have not been cleared by the US Food and Drug Administration (FDA). The FDA has determined that such clearance or approval is not necessary. All the above immunostains were performed on paraffin embedded tissue. Appropriate positive and negative controls (where applicable) were run in parallel with the patient's specimen; these controls showed expected staining pattern, with acceptable intensity of staining. Immunohistochemical assays have not been validated on decalcified tissues. Results should be interpreted with caution given the raised possibility of false negativity on decalcified specimens. Professional Performing Location: [place] [address]. DEPARTMENT OF PATHOLOGY AND LABORATORY MEDICINE [place], [place] [address] [email or web address] Normal [facility] XR CHEST PORTABLEon 01-29-20 Patient Name: HALEIGH ALMEIDA Diagnostic Radiology ACCESSION EXAM DATE/TIME PROCEDURE ORDERING PROVIDER [id number] 01/28/2021 14:18 EDT CR Chest Portable Bucky SHABAZZ HAMMETT CPT code 23910 Reason For Exam (CR Chest Portable) Chest tube placement Report PORTABLE CHEST CLINICAL INDICATION: Right chest tube placement TECHNIQUE: Portable AP COMPARISON: Two days ago FINDINGS: Exam quality: EKG leads obscure small portions of the chest. Heart is upper normal and there is atherosclerotic calcification of the aorta. A right chest tube is noted without pneumothorax. Elongated opacity in the left mid hemithorax corresponds to atelectasis. There is patchy consolidation at the base of the right upper lobe. Subcutaneous emphysema is noted along the right chest wall. Sternal wires are noted. IMPRESSION: Right chest tube with subcutaneous emphysema. No identifiable pneumothorax. Patchy consolidation at the base of the right upper lobe Report Dictated on --- Final --- Dictated: 01/28/2021 3:56 pm Dictating Physician: MD DUNNE JEFFREY Signed Date and Time: 01/28/2021 3:58 pm Signed by: MD DUNNE JEFFREY Transcribed Date and Time: 01/28/2021 3:56 [facility] Work Phone: [place], [facility] Incoming Radiology Results From [facility] - 01/28/2021 3:59 PM EDT Patient Name: HALEIGH ALMEIDA Diagnostic Radiology ACCESSION EXAM DATE/TIME PROCEDURE ORDERING PROVIDER [id number] 01/28/2021 14:18 EDT CR Chest Portable Bucky SHABAZZ RASHIDA CPT code 20908 Reason For Exam (CR Chest Portable) Chest tube placement Report PORTABLE CHEST CLINICAL INDICATION: Right chest tube placement TECHNIQUE: Portable AP COMPARISON: Two days ago FINDINGS: Exam quality: EKG leads obscure small portions of the chest. Heart is upper normal and there is atherosclerotic calcification of the aorta. A right chest tube is noted without pneumothorax. Elongated opacity in the left mid hemithorax corresponds to atelectasis. There is patchy consolidation at the base of the right upper lobe. Subcutaneous emphysema is noted along the right chest wall. Sternal wires are noted. IMPRESSION: Right chest tube with subcutaneous emphysema. No identifiable pneumothorax. Patchy consolidation at the base of the right upper lobe Report Dictated on --- Final --- Dictated: 01/28/2021 3:56 pm Dictating Physician: MD DUNNE JEFFREY Signed Date and Time: 01/28/2021 3:58 pm Signed by: MD DUNNE JEFFREY Transcribed Date and Time: 01/28/2021 3:56 [facility] Work Phone: [id number] 01-27-2021 SARS-CoV-2 SARS-CoV-2 --> Statu s: F Not Detected. Expected Result: Not Detected _ Real-time, RT-PCR performed on the [employer] System by the [facility] IMAGINATE - [employer] [facility] Negative results do not preclude SARS-CoV-2 infection and should not be used as the sole basis for treatment or other patient management decisions. This assay was developed and its performance characteristics determined by the [facility] [employer] [facility]. The U. S. Food and Drug Administration has not approved or cleared this test; however, FDA clearance or approval is not currently required for clinical use. Expected Result: Not Detected _ Real-time, RT-PCR performed on the [employer] System by the [facility] [employer] [facility] Negative results do not preclude SARS-CoV-2 infection and should not be used as the sole basis for treatment or other patient management decisions. This assay was developed and its performance characteristics determined by the [facility]. The U. S. Food and Drug Administration has not approved or cleared this test; however, FDA clearance or approval is not currently required for clinical use. Normal [facility] Comment on above: Performed By: #### C OVID ####[facility] WestThrow[facility] [id number] [place] [address] CBC auto differentialon 01-06 Absolute Baso # 0.1 10*3/uL 0.0 - 0.2 10*3/uL [employer] Work Phone: Absolute Neut # 3.0 10*3/uL 1.8 - 7.0 10*3/uL [employer] Phone: Basophils/100 WBC (Bld) 1.2 % 0.0 - 2.0 % [employer] Phone: Eosinophils (Bld) [#/Vol] 0.1 10*3/uL 0.0 - 0.5 10*3/uL [employer] Work Phone: 22 Eosinophils/100 WBC (Bld) 1.9 % 1.0 - 6.0 % [employer] Phone: Erythrocyte distribution width (RBC) [Ratio] 19.0 % High 11.5 - 14.5 % [employer] Phone: Granulocytes/100 WBC (Bld) 45.2 % 40.0 - 80.0 % [employer] Phone: Hematocrit (Bld) [Volume fraction] 34.1 % Low 35.0 - 47.0 % [employer] Work Phone: Hemoglobin (Bld) [Mass/Vol] 10.9 g/dL Low 11.7 - 16.0 g/dL [employer] Phone: 22 Interpretation and review of laboratory results Abnormal [employer] Work Phone: Lymphocytes (Bld) [#/Vol] 2.9 10*3/uL 1.0 - 4.3 10*3/uL [employer] Work Phone: 22 Lymphocytes/100 WBC (Bld) 44.0 % High 20.0 - 40.0 % [employer] Work Phone: 1 MCH (RBC) [Entitic mass] 25.3 pg Low 26. 0 - 34.0 pg [employer] Work Phone: 1 MCHC (RBC) [Mass/Vol] 31.9 % Low 32.0 - 36.0 % [employer] Work Phone: 1 MCV (RBC) [Entitic vol] 79.3 fL 79.0 - 98.0 fL [employer] Work Phone: 1 Monocytes (Bld) [#/Vol] 0.5 10*3/uL 0.0 - 0.8 10*3/uL [employer] Work Phone: 1 Monocytes/100 WBC (Bld) 7.7 % 2.0 - 10.0 % [employer] Phone: 1 Platelet mean volume (Bld) [Entitic vol] 9.4 fL 7.4 - 10.4 fL [employer] Phone: 1 Platelets (Bld) [#/Vol] 201 10*3/uL 140 - 440 10*3/uL [employer] Work Phone: 1 RBC (Bld) [#/Vol] 4.30 10*6/uL 3.80 - 5.2 0 10*6/uL [employer] Work Phone: 1 WBC (Bld) [#/Vol] 6.6 10*3/uL 3.6 - 10.7 10*3/uL [employer] Work Phone: 1 Test Performed by [employer], [address] [place] [phone] [employer] Work Phone: [phone] COVID-19on 01-26-2021 SARS-CoV-2 Not Detected. Not Detected [employer] Work Phone: 1 Comment on above: Not Detected. Expected Result: Not Detected _ Real-time, RT-PCR performed on the [employer] System by the [facility] Negative results do not preclude SARS-CoV-2 infection and should not be used as the sole basis for treatment or other patient management decisions. This assay was developed and its performance characteristics determined by the [facility]. The U. S. Food and Drug Administration has not approved or cleared this test; however, FDA clearance or approval is not currently required for clinical use. Test Performed by [facility], [address] [place] [address] CR Chest PA/LATon 01-26-2021 CR Chest PA/LAT Patient Name: HALEIGH ALMEIDA Diagnostic Radiology ACCESSION EXAM DATE/TIME PROCEDURE ORDERING PROVIDER [id number] 01/26/2021 15:26 EDT CR Chest PA and LAT REYNOSOCANov CPT code 46876 Reason For Exam (CR Chest PA and LAT) pre op testing Report CHEST, PA and LATERAL: INDICATION: Preop COMPARISON: No previous studies are available for comparison. PA and lateral views of the chest were obtained. The heart is normal in size. The mediastinal silhouette is normal. The lungs are clear. There are no effusions or infiltrates. There is no pleural thickening. Arthritic changes of the spine and shoulders are present. IMPRESSION: Negative chest. Report Dictated on Final Dictated: 01/26/2021 8:36 pm Dictating Physician: DO LE ALFRED Signed Date and Time: 01/26/2021 8:37 pm Signed by: DO LE ALFRED Transcribed Date and Time: 01/26/2021 8:36 Normal [facility] Comp Metabolic Panelon 01-26 ALP [Catalytic activity/Vol] 85 U/L Normal 38-126 [facility] Comment on above: Performed By: #### H EMDF, PT, CMP3 #### [address] [address] ALT [Catalytic activity/Vol] 35 U/L High 0-34 [facility] Comment on above: Result Comment: The ALT test is performed by an updated assay method. Please note that the reference intervals have been changed and are now sex specific. Performed By: #### H EMDF, PT, CMP3 #### [address] Calcium [Mass/Vol] 9.4 mg/dL Normal 8.4-10.4 [facility] Comment on above: Performed By: #### H KIM SHPEARD CMP3 #### [facility] [address], [place] Glucose [Mass/Vol] 94 mg/dL Normal 70-100 [facility] Comment on above: Performed By: #### H KIM SHEPARD, CMP3 #### [facility] [address], [place] Urea nitrogen [Mass/Vol] 12 mg/dL Normal 7-20 [facility] Comment on above: Performed By: #### H KIM SHEPARD, CMP3 #### [facility] [address], [place] Anion gap [Moles/Vol] 11 mmol/L Normal 3-13 [facility] Comment on above: Performed By: #### H KIM SHEPARD, CMP3 #### [facility] [address], [place] AST [Catalytic activity/Vol] 41 U/L Normal 15-46 [facility] Comment on above: Performed By: #### H KIM SHEPARD, CMP3 #### [facility] [address], [place] Bilirubin [Mass/Vol] 0.3 mg/dL Normal 0.2-1.3 [facility] Comment on above: Performed By: #### H KIM SHEPARD, CMP3 #### [facility] [address], [place] CO2 [Moles/Vol] 21 mmol/L Low 22-30 [facility] Comment on above: Performed By: #### H KIM SHEPARD, CMP3 #### [facility] [address], [place] Creatinine [Mass/Vol] 0.98 mg/dL Normal 0.52-1.25 [facility] Comment on above: Performed By: #### H DEVYN PT, CMP3 #### [facility] [address], [place] GFR/1.73 sq M predicted among blacks MDRD (S/P/Bld) [Vol rate/Area] 70.7 mL/min/{1.73_m2} Normal >60 [facility] Comment on above: Performed By: #### H KIM SHEPARD, CMP3 #### [facility] [address], [place] GFR/1.73 sq M predicted among non-blacks MDRD (S/P/Bld) [Vol rate/Area] 61.0 mL/min/{1.73_m2} Normal >60 [facility] Comment on above: Result Comment: KDIG O guidelines provide the following GFR categories: Stage GFR(ml/min/1.73 m2) Terms G1 >=90 Normal or high G2 60-89 Mildly decreased* G3a 45-59 Mildly to moderately decreased G3b 30-44 Moderately to severely decreased G4 15-29 Severely decreased G5 <15 Kidney failure *Relative to young adult level. In the absence of evidence of kidney damage, neither GFR category G1 nor G2 fulfill the criteria for CKD. The CKD-EPI equation is validated in individuals 18 years of age and older. Currently the best equation for estimating glomerular filtration rate (GFR) from serum creatinine in children is the Bedside Skinner equation. It is less accurate in patients with extremes of muscle mass, restriction of dietary protein, ingestion of creatine, extra-renal metabolism of creatinine, or treatment with medications that affect renal tubular creatinine secretion. Performed By: #### H KIM SHEPARD, CMP3 #### [facility] [address] [place], [place] Protein [Mass/Vol] 8.3 g/dL High 6.3-8.2 [facility] Comment on above: Performed By: #### H DEVYN PT, CMP3 #### [place] [address] [place], [place] Potassium [Moles/Vol] 4.2 mmol/L Normal 3.5-5.1 [facility] Comment on above: Performed By: #### H DEVYN PT, CMP3 #### [place] [address] [address] [place], [place] Sodium [Moles/Vol] 133 mmol/L Low 135-145 [facility] Comment on above: Performed By: #### H EMDF, PT, CMP3 #### [facility] [address], [place] Albumin [Mass/Vol] 4.7 g/dL Normal 3.5-5.0 [facility] Comment on above: Performed By: #### H EMDF, PT, CMP3 #### [facility] [address], [place] Chloride [Moles/Vol] 101 mmol/L Normal 98-107 [facility] Comment on above: Performed By: #### H EMDF, PT, CMP3 #### [place] [address] [address], [place] Complete Urinalysison 2020 Appearance (U) Clear Normal Clear [facility] Comment on above: Result Comment: . Performed By: #### C UA2 #### [place] [address] [address], [place] Bilirubin,Urine Negative Normal Negative [facility] Comment on above: Result Comment: . Performed By: #### C UA2 #### [place] [address] [address], [place] Color (U) Colorless Normal Lt. Yellow [facility] Comment on above: Result Comment: . Performed By: #### C UA2 #### [place] [address] [address], [place] Glucose Ql (U) Normal Normal Normal (<70) [facility] Comment on above: Result Comment: . Performed By: #### C UA2 #### [place] [address] [address], [place] Ketone,Urine Negative Normal Negative [facility] Comment on above: Result Comment: . Performed By: #### C UA2 #### [place] [address] [address], [place] Leukocytes,Urine Negative Normal Negative [facility] Comment on above: Result Comment: . Performed By: #### C UA2 #### [place] [address] [address], [place] Nitrites,Urine Negative Normal Negative [facility] Comment on above: Result Comment: . Performed By: #### C UA2 #### [facility] [address], [place] Occult Blood,Urine Negative Normal Negative [facility] Comment on above: Result Comment: . Performed By: #### C UA2 #### [facility] [address], [place] pH (U) 5.0 Normal 5.0-8.0 [facility] Comment on above: Result Comment: . Performed By: #### C UA2 #### [facility] [address], [place] Protein (U) [Mass/Vol] Negative Normal Negative [facility] Comment on above: Result Comment: . Performed By: #### C UA2 #### [facility] [address], [place] Specific [place],Urine 1.005 Normal 1.005 - 1.030 [facility] Comment on above: Result Comment: . Performed By: #### C UA2 #### [facility] [address], [place] Urobilinogen,Urine Normal Normal Normal (0-1) [facility] Comment on above: Result Comment: . Performed By: #### C UA2 #### [facility] [address], [place] Comprehensive Metabolic Pane frederick 01-26-2021 Albumin [Mass/Vol] 4.7 g/dL 3.5 - 5.0 g/dL [facility] Work Phone: ALP [Catalytic activity/Vol] 85 U/L 38 - 126 U/L [facility] Work Phone: ALT [Catalytic activity/Vol] 35 U/L High 0 - 34 U/L [facility] Work Phone: Comment on above: The ALT test is perf ormed by an updated assay method. Please note that the reference intervals have been changed and are now sex specific. Anion gap [Moles/Vol] 11 mmol/L 3 - 13 mmol/L [facility] Work Phone: [phone] AST [Catalytic activity/Vol] 41 U/L 15 - 46 U/L [facility] Work Phone: [phone] Bilirubin Ql (U) 0.3 mg/dL 0.2 - 1.3 mg/dL [facility] Work Phone: [phone] Calcium [Mass/Vol] 9.4 mg/dL 8.4 - 10. 4 mg/dL [facility] Work Phone: [phone] Chloride [Moles/Vol] 101 mmol/L 98 - 10 7 mmol/L [facility] Work Phone: [phone] CO2 [Moles/Vol] 21 mmol/L Low 22 - 30 mmol/L [facility] Work Phone: [phone] Creatinine [Mass/Vol] 0.98 mg/dL 0.52 - 1.25 mg/dL [facility] Work Phone: [phone] EGFR IF NonAfrican Japanese 61.0 mL/min >60 [facility] Work Phone: [phone] Comment on above: KDIGO guidelines pro vide the following GFR categories: Stage GFR(ml/min/1.73 m2) Terms G1 >=90 Normal or high G2 60-89 Mildly decreased* G3a 45-59 Mildly to moderately decreased G3b 30-44 Moderately to severely decreased G4 15-29 Severely decreased G5 <15 Kidney failure *Relative to young adult level. In the absence of evidence of kidney damage, neither GFR category G1 nor G2 fulfill the criteria for CKD. The CKD-EPI equation is validated in individuals 18 years of age and older. Currently the best equation for estimating glomerular filtration rate (GFR) from serum creatinine in children is the Bedside Skinner equation. It is less accurate in patients with extremes of muscle mass, restriction of dietary protein, ingestion of creatine, extra-renal metabolism of creatinine, or treatment with medications that affect renal tubular creatinine secretion. GFR/1.73 sq M predicted among blacks MDRD (S/P/Bld) [Vol rate/Area] 70.7 mL/min/{1.73_m2} >60 [facility] Work Phone: [phone] Glucose [Mass/Vol] 94 mg/dL 70 - 100 mg/dL [facility] Work Phone: [phone] Interpretation and review of laboratory results Abnormal [facility] Work Phone: Potassium [Moles/Vol] 4.2 mmol/L 3.5 - 5.1 mmol/L [facility] Work Phone: Protein [Mass/Vol] 8.3 g/dL High 6.3 - 8.2 g/dL [facility] Work Phone: [phone] Sodium [Moles/Vol] 133 mmol/L Low 135 - 145 mmol/L [facility] Work Phone: [phone] Urea nitrogen [Mass/Vol] 12 mg/dL 7 - 20 mg/dL [facility] Work Phone: [phone] Test Performed by [facility], [address] [place] [address] [facility] Work Phone: Hemogram w/ Autodiffon 01-26 Abs Baso Cnt 0.1 10*3/uL Normal 0.0-0.2 [facility] Comment on above: Performed By: #### H EMDF PT, CMP3 #### [facility] [address] [place] [phone] Abs Neutrophile Cnt 3.0 10*3/uL Normal 1.8-7.0 [facility] Comment on above: Performed By: #### H EMDF PT, CMP3 #### [address] [address] Basophils/100 WBC (Bld) 1.2 % Normal 0.0-2.0 [facility] Comment on above: Performed By: #### H EMDF, PT, CMP3 #### [address] [address] Eosinophils (Bld) [#/Vol] 0.1 10*3/uL Normal 0.0-0.5 [facility] Comment on above: Performed By: #### H EMDF PT, CMP3 #### [facility] [address] [address] Eosinophils/100 WBC (Bld) 1.9 % Normal 1.0-6.0 [facility] Comment on above: Performed By: #### H EMDF PT, CMP3 #### [facility] [address], [place] Erythrocyte distribution width (RBC) [Ratio] 19.0 % High 11.5-14.5 [facility] Comment on above: Performed By: #### H EMDF, PT, CMP3 #### [place] [address] [address], [place] Granulocytes/100 WBC (Bld) 45.2 % Normal 40.0-80.0 [facility] Comment on above: Performed By: #### H EMDF, PT, CMP3 #### [place] [address] [address], [place] Hematocrit (Bld) [Volume fraction] 34.1 % Low 35.0-47.0 [facility] Comment on above: Performed By: #### H EMDF, PT, CMP3 #### [place] [address] [address], [place] Hemoglobin (Bld) [Mass/Vol] 10.9 g/dL Low 11.7-16.0 [facility] Comment on above: Performed By: #### H EMDF, PT, CMP3 #### [place] [address] [address], [place] Lymphocytes (Bld) [#/Vol] 2.9 10*3/uL Normal 1.0-4.3 [facility] Comment on above: Performed By: #### H EMDF, PT, CMP3 #### [place] [address] [address], [place] Lymphocytes/100 WBC (Bld) 44.0 % High 20.0-40.0 [facility] Comment on above: Performed By: #### H EMDF, PT, CMP3 #### [place] [address] [address], [place] MCH (RBC) [Entitic mass] 25.3 pg Low 26.0-34.0 [facility] Comment on above: Performed By: #### H EMDF, PT, CMP3 #### [place] [address] [address], [place] MCHC (RBC) [Mass/Vol] 31.9 % Low 32.0-36.0 [facility] Comment on above: Performed By: #### H EMDF, PT, CMP3 #### [place] [address] [address], [place] MCV (RBC) [Entitic vol] 79.3 fL Normal 79.0-98.0 [facility] Comment on above: Performed By: #### H EMDF, PT, CMP3 #### [place] [address] [address], [place] Monocytes (Bld) [#/Vol] 0.5 10*3/uL Normal 0.0-0.8 [facility] Comment on above: Performed By: #### H EMDF, PT, CMP3 #### [place] [address] [address], [place] Monocytes/100 WBC (Bld) 7.7 % Normal 2.0-10.0 [facility] Comment on above: Performed By: #### H EMDF, PT, CMP3 #### [place] [address] [address], [place] Platelet mean volume (Bld) [Entitic vol] 9.4 fL Normal 7.4-10.4 [facility] Comment on above: Performed By: #### H EMDF, PT, CMP3 #### [place] [address] [address], [place] Platelets (Bld) [#/Vol] 201 10*3/uL Normal 140-440 [facility] Comment on above: Performed By: #### H EMDF, PT, CMP3 #### [place] [address] [address], [place] RBC (Bld) [#/Vol] 4.30 10*6/uL Normal 3.80-5.20 [facility] Comment on above: Performed By: #### H EMDF, PT, CMP3 #### [place] [address] [address], [place] WBC (Bld) [#/Vol] 6.6 10*3/uL Normal 3.6-10.7 [facility] Comment on above: Performed By: #### H EMDF, PT, CMP3 #### [facility] [address] [place] [address] Prothrombin Timeon INR Coag (PPP) [Relative time] 1.0 Normal 0.9-1.1 [facility] Comment on above: Result Comment: Harvey mmended Anticoagulant Therapy: SEE BELOW ----- INR of 2.0 - 3.0 : - Prophylaxis of Venous Thrombosis (high-risk surgery) - Treatment of Venous Thrombosis - Treatment of Pulmonary Embolism (Includes tissue heart valves, Acute Myocardial Infarction to prevent systemic embolism, Valvular Heart Disease, and Atrial Fibrillation) ----- INR of 2.5 - 3.5 : - Mechanical Prosthetic Valves (high risk) - If oral anticoagulant therapy is used to prevent Myocardial Infarction Performed By: #### H EMDF, PT, CMP3 #### [facility] [address] [place] [phone] PT Coag (PPP) [Time] 10.9 s Normal 9.0-12.0 [facility] Comment on above: Result Comment: . Performed By: #### H EMDF, PT, CMP3 #### [facility] [address] [address] Protime-INRon 01-26-2021 INR Coag (PPP) [Relative time] 1.0 {INR} [facility] Work Phone: Comment on above: Recommended Anticoag ulant Therapy: SEE BELOW ----- INR of 2.0 - 3.0 : - Prophylaxis of Venous Thrombosis (high-risk surgery) - Treatment of Venous Thrombosis - Treatment of Pulmonary Embolism (Includes tissue heart valves, Acute Myocardial Infarction to prevent systemic embolism, Valvular Heart Disease, and Atrial Fibrillation) ----- INR of 2.5 - 3.5 : - Mechanical Prosthetic Valves (high risk) - If oral anticoagulant therapy is used to prevent Myocardial Infarction PT Coag (PPP) [Time] 10.9 s 9.0 - 1 2.0 s [facility] Work Phone: Comment on above: . Test Performed by [facility], [address] [place] [address] [employer] Work Phone: [phone] TS GELon 01-26-2021 TS GEL ABO Group: A Rh, Gel: POS Antibody Screen Gel: NEG Normal [employer] Comment on above: Performed By: #### T SGL ####[employer] TYPE AND SCREENon 01-26-2021 Sodium [Moles/Vol] Positive [employer] Work Phone: 1 Sodium [Moles/Vol] Negative [employer] Work Phone: 1 Sodium [Moles/Vol] A [employer] Work Phone: 1 Test Performed by [employer], [address] [place] [address] [employer] Work Phone: 1 Urinalysison 01-26-2021 Appearance (U) Clear Clear NA [employer] Work Phone: 1 Comment on above: . Bilirubin Urine Negative Negative mg/dL [employer] Work Phone: 1 Comment on above: . Color (U) Colorless Lt. Yellow NA [employer] Work Phone: 1 Comment on above: . Glucose, Ur Normal Normal (<70) mg/dL [employer] Work Phone: 1 Comment on above: . Ketones Ql (U) Negative Negative mg/dL [employer] Work Phone: 1 Comment on above: . LEUKOCYTES, UA Negative Negative Lane/uL [employer] Work Phone: 1 Comment on above: . Nitrite, Urine Negative Negative NA [employer] Work Phone: 1 Comment on above: . Occult Blood,Urine Negative Negative mg/dL [employer] Work Phone: 1 Comment on above: . pH (U) 5.0 [pH] [employer] Work Phone: 1 Comment on above: . Protein (U) [Mass/Vol] Negative Negat estefania mg/dL [employer] Work Phone: [phone] Comment on above: . Specific [place], Urine 1.005 [facility] Work Phone: 1 Comment on above: . Urobilinogen, Urine Normal Normal (0-1) mg/dL [employer] Work Phone: Comment on above: . Test Performed by [facility], [address] [place] [address] [facility] Work Phone: XR CHEST (2 VW)on 01-26-2021 Patient Name: HALEIGH ALMEIDA Diagnostic Radiology ACCESSION EXAM DATE/TIME PROCEDURE ORDERING PROVIDER [id number] 01/26/2021 15:26 EDT CR Chest PA & LAT REYNOSO, POST FRAMER, FLORENTIN C CPT code 14506 Reason For Exam (CR Chest PA & LAT) pre op testing Report CHEST, PA & LATERAL: INDICATION: Preop COMPARISON: No previous studies are available for comparison. PA and lateral views of the chest were obtained. The heart is normal in size. The mediastinal silhouette is normal. The lungs are clear. There are no effusions or infiltrates. There is no pleural thickening. Arthritic changes of the spine and shoulders are present. IMPRESSION: Negative chest. Report Dictated on --- Final --- Dictated: 01/26/2021 8:36 pm Dictating Physician: DO LE ALFRED Signed Date and Time: 01/26/2021 8:37 pm Signed by: DO LE ALFRED Transcribed Date and Time: 01/26/2021 8:36 [facility] Work Phone: [place], [facility] Incoming [facility] - 01/26/2021 8:38 PM EDT Patient Name: HALEIGH ALMEIDA Diagnostic Radiology ACCESSION EXAM DATE/TIME PROCEDURE ORDERING PROVIDER [id number] 01/26/2021 15:26 EDT CR Chest PA & LAT REYNOSO, POST FRAMER, FLORENTIN C CPT code 86021 Reason For Exam (CR Chest PA & LAT) pre op testing Report CHEST, PA & LATERAL: INDICATION: Preop COMPARISON: No previous studies are available for comparison. PA and lateral views of the chest were obtained. The heart is normal in size. The mediastinal silhouette is normal. The lungs are clear. There are no effusions or infiltrates. There is no pleural thickening. Arthritic changes of the spine and shoulders are present. IMPRESSION: Negative chest. Report Dictated on --- Final --- Dictated: 01/26/2021 8:36 pm Dictating Physician: DO LE ALFRED Signed Date and Time: 01/26/2021 8:37 pm Signed by: DO LE ALFRED Transcribed Date and Time: 01/26/2021 8:36 [facility] Work Phone: XR HIP LEFT W/PELVIS 4 VIEWS on 11-29-2019 XR HIP LEFT W/PELVIS 4 VIEWS ORIGINAL XR HIP LEFT W/PELVIS 4 VIEWS CLINICAL STATEMENT: pain. COMPARISON: None FINDINGS: The pelvic ring is intact. No acute fracture or dislocation is identified. The left hip is intact. No acute fracture or dislocation is identified. Mild bilateral hip joint space narrowing is symmetric in appearance. Stimulator device is implanted on the RIGHT side. IMPRESSION: No acute fracture or dislocation. Interpreted By: Ines Cole MD Preliminary Report By: Ines Cole MD Electronically Signed By: Ines Cole MD Dictated Date: 11/29/2019 2:27:46 PM Prelim Date: 11/29/2019 2:27:46 PM Sign Date: 11/29/2019 2:36:17 PM Ordering Provider:Arlin Cruz [facility] ([place]) PROGRESSon 10-30-2019 PROGRESS HNO ID: [id number] Author: Kaylyn Degroot Service: ? Author Type: Physician Mixer Machine Feeder Type: Progress Notes Filed: 10/30/2019 12:57 PM Note Text: FOLLOW UP VISIT - ENDOSCOPY NAME: Haleigh Lima [facility] NO.: [id number] DATE OF SERVICE: 10/25/2019 : 1955 REFERRING PHYSICIAN: Radha Odom MD Haleigh is a patient I am following for heme positive stool, nausea and family history of colon cancer. Dr. Katz performed upper and lower endoscopy on 09/26/19. The patient was found to have a normal appearing colon with random biopsies taken, and mild gastritis. Pathology demonstrated mild gastritis, negative for H. Pylori, and melanosis coli The patient notes no complaints since the procedure. VITALS: Blood pressure 148/78, pulse 69, temperature 36.1 ?C (97 ?F), temperature source Temporal, resp. rate 14, weight 66.2 kg (146 lb), SpO2 98 %. General: patient is alert, cooperative, pleasant and in no acute distress On examination, the abdomen is benign. Assessment IMPRESSION: family history of colon cancer, gastritis, melanosis coli PLAN: The operative findings and pathology report were reviewed with the patient, and the patient has had the opportunity to ask questions and have questions answered. If the patient notes any problems or changes in bowel function, the patient should contact me immediately. Otherwise I recommend follow up endoscopy in 5 years. HM updated and recall letter generated. Patient verbalized understanding of all above and agreed with the plan Diagnoses: (Z80.0) Family history of colon cancer (primary encounter diagnosis) (R19.5) Heme positive stool (K29.60) Other gastritis without bleeding (K63.89) Melanosis coli I spent 20 minutes in the visit, with more than 50% of the total gpxx-ri-mmwo time of the visit in counseling / coordination of care. Kaylyn Degroot PA-C [facility] PROGRESSon 10-27-2019 PROGRESS HNO ID: [id number] Author: Angel Katz Service: ? Author Type: Physician Type: Progress Notes Filed: 10/27/2019 1:44 PM Note Text: OPERATIVE NOTATION FOR [facility] SURGICAL PROCEDURE. October 18, 2019 Haleigh Masdarrel 1955 [id number] female PROCEDURE: EGD WITH BIOPSY - [id number] and COLONOSCOPY - [id number] SURGEON: Marysol Katz M.D. FACS [employer] INTERN: None DEPT: WQ PROVIDER: [email or web address] Katz MD POS: [id number] DIAGNOSIS: (R19.5) Heme positive stool (primary encounter diagnosis) (R11.0) Nausea (Z80.0) Family history of colon cancer ASA CLASS: 3 - Severe FINDINGS: COMPLICATIONS: None PMHx - PAST MEDICAL HISTORY Diagnosis Date - Adjustment disorder with depressed mood - Chronic airway obstruction, not elsewhere classified - Coronary artery disease - Coronary atherosclerosis of unspecified type of vessel, port gamble or graft - Dyslipidemia - Esophageal reflux Gastroesophageal reflux - Malignant melanoma of skin of upper limb, including shoulder (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 Angel Katz MD Normal [facility] CNOVon 10-25-2019 CNOV Office Visit (GENSWS ) HALEIGH ALMEIDA ([id number]) 1955 F Date Time Provider Department 10/25/19 9:30 AM KAYLYN DEGROOT During your visit today, we recorded the following information about you: Temperature Pulse Respiration Blood pressure 97 degrees 69/minute 14/minute 148/78 Weight 66.2 kg Kaylyn Degroot PA-C 10/25/2019 9:54 AM Signed The following instructions are important for you related to your office visit today with the [facility] General Surgeons. INSTRUCTIONS FOLLOWING A NORMAL COLONOSCOPY W/ FAMILY HX COLON CANCER 5YR I discussed with you the findings of your colonoscopy. Since there were no worrisome abnormalities, I recommend you undergo repeat endoscopic screening every 5 years due to your family history of colon cancer. This is the current recommendation for colon cancer screening. If you note bleeding, change in bowel habits, or other suspicious colon related symptoms before that time, those symptoms should be evaluated as necessary. INSTRUCTIONS FOR PEPTIC ULCER DISEASE - GASTRITIS I discussed with you the findings of your upper endoscopy. Your upper endoscopy demonstrated gastritis Factors that increase acid production include smoking and stress. If you smoke, stopping smoking will often cure these issues without needing other medications. Over the counter medications including antiacids and acid reducing medications including H2 blockers (Zantac and the like) and proton pump inhibitors (prilosec, prevacid and the like) neutralize or prevent acid production. Prescription strength proton pump inhibitors (PPIs) may be necessary if your symptoms persist. Carafate may be added to PPI treatment in refractory cases. Avoiding smoking, alcohol and antiinflammatory medications are important in the successful treatment of reflux esophagitis and peptic diseases. Other factors that contribute to gastritis, GERD and esophagitis are being overweight, eating large meals before laying down and certain foods. Weight loss will help improve many GERD complaints. Remaining upright after eating large meals and having a small supper will also help symptoms. Avoiding food that contribute to reflux - chocolate, caffeine, cheddar cheese may also help. Follow up upper endoscopy may be recommended to assure healing of the esophagus. New or worsening symptoms such are epigastric pain, burning, difficulty swallowing or food sticking should be relayed to your physician. Feeling full early after eating, or black, tarry, foul smelling stools are also worrisome. If you have any difficulties or concerns, you should contact our office immediately. If you note any additional difficulties, questions, or concerns, you should contact our office immediately @ [phone] and ask to be transferred to the General Surgery department. Kaylyn Degroot PA-C 10/30/2019 12:57 PM Signed FOLLOW UP VISIT - ENDOSCOPY NAME: Haleigh Lima [facility] NO.: [id number] DATE OF SERVICE: 10/25/2019 : 1955 REFERRING PHYSICIAN: Radha Odom MD Haleigh is a patient I am following for heme positive stool, nausea and family history of colon cancer. Dr. Katz performed upper and lower endoscopy on 09/26/19. The patient was found to have a normal appearing colon with random biopsies taken, and mild gastritis. Pathology demonstrated mild gastritis, negative for H. Pylori, and melanosis coli The patient notes no complaints since the procedure. VITALS: Blood pressure 148/78, pulse 69, temperature 36.1 ?C (97 ?F), temperature source Temporal, resp. rate 14, weight 66.2 kg (146 lb), SpO2 98 %. General: patient is alert, cooperative, pleasant and in no acute distress On examination, the abdomen is benign. Assessment IMPRESSION: family history of colon cancer, gastritis, melanosis coli PLAN: The operative findings and pathology report were reviewed with the patient, and the patient has had the opportunity to ask questions and have questions answered. If the patient notes any problems or changes in bowel function, the patient should contact me immediately. Otherwise I recommend follow up endoscopy in 5 years. HM updated and recall letter generated. Patient verbalized understanding of all above and agreed with the plan Diagnoses: (Z80.0) Family history of colon cancer (primary encounter diagnosis) (R19.5) Heme positive stool (K29.60) Other gastritis without bleeding (K63.89) Melanosis coli I spent 20 minutes in the visit, with more than 50% of the total wjgk-ex-lgxn time of the visit in counseling / coordination of care. Kaylyn Degroot PA-C Referring Provider: RADHA ODOM [[id number]] Allergies As of Date: 10/25/2019 Noted Allergy Reaction ATORVASTATIN 10/01/2018 5 - Intolerance CONTRAST DYE 07/17/2007 4 - Hives NAPROSYN (NAPROXEN) 11/06/2008 8 - GI Upset TCN (TETRACYCLINES) 07/17/2007 4 - Hives Date Reviewed: 10/25/2019 Reviewed by: Merle Vera LPN - Fully Assessed Reason for Visit: Post Op [174] Primary Visit Diagnosis:Family history of colon cancer [Z80.0] Other Visit Diagnoses:Heme positive stool [R19.5] Other gastritis without bleeding [K29.60] Melanosis coli [K63.89] Prescriptions as of 10/25/2019 Sig: SERTRALINE 25 MG TABLET Take 25 mg by mouth once rachele* CLOPIDOGREL 75 MG TABLET Take 1 tablet by mouth once d* COQ10 (LIPOSOMAL UBIQUINOL) O* Take by mouth. ISOSORBIDE DINITRATE 30 MG TA* Take 30 mg by mouth once rachele* HYDROMORPHONE 2 MG TABLET Take 2 mg by mouth every 8 ho* LISINOPRIL ORAL Take 5 mg by mouth. PRIMIDONE 50 MG TABLET Take 50 mg by mouth daily at * CHOLECALCIFEROL (VITAMIN D3) * Take 5,000 Units by mouth onc* CPAP daily at bedtime. ASPIRIN 81 MG TABLET,DELAYED * Take 1 tablet by mouth once d* CLONAZEPAM 1 MG TABLET Take 1 mg by mouth three time* CYCLOBENZAPRINE 10 MG TABLET Take 1 tablet by mouth every * TRAZODONE 50 MG TABLET Take 1 tablet by mouth daily * SPIRIVA WITH HANDIHALER 18 MC* as necessary PRILOSEC 20 MG CAPSULE,DELAYE* Take one(1) capsule daily. Problem List As Of Date 10/25/2019 Noted Resolved Peripheral vascular disease, unspecified [I73.9]07/17/2007 More... MELANOMA ARM [C43.60] 07/09/2008 ESOPHAGEAL REFLUX [K21.9] More... CHRONIC AIRWAY OBSTRUCTION NEC [J44.9] PMH - PAST MEDICAL HISTORY OF More... Cor athrscl-uns vessel [I25.10] More... ADJUSTMENT DISORDER WITH DEPRESSED MOOD [F43.21] GANGLION OF JOINT [M67.40] 11/06/2008 HTN (hypertension) [I10] 02/09/2011 Hyperlipidemia [E78.5] 02/09/2011 Abnormal LFTs [R94.5] 02/09/2011 Mitral valve insufficiency [I08.0] 02/09/2011 More... Tobacco use disorder [F17.200] 02/09/2011 Angina 02/09/2011 Heart palpitations [R00.2] 02/09/2011 More... Other instructions from your clinician: The following instructions are important for you related to your office visit today with the [facility] General Surgeons. INSTRUCTIONS FOLLOWING A NORMAL COLONOSCOPY W/ FAMILY HX COLON CANCER 5YR I discussed with you the findings of your colonoscopy. Since there were no worrisome abnormalities, I recommend you undergo repeat endoscopic screening every 5 years due to your family history of colon cancer. This is the current recommendation for colon cancer screening. If you note bleeding, change in bowel habits, or other suspicious colon related symptoms before that time, those symptoms should be evaluated as necessary. INSTRUCTIONS FOR PEPTIC ULCER DISEASE - GASTRITIS I discussed with you the findings of your upper endoscopy. Your upper endoscopy demonstrated gastritis Factors that increase acid production include smoking and stress. If you smoke, stopping smoking will often cure these issues without needing other medications. Over the counter medications including antiacids and acid reducing medications including H2 blockers (Zantac and the like) and proton pump inhibitors (prilosec, prevacid and the like) neutralize or prevent acid production. Prescription strength proton pump inhibitors (PPIs) may be necessary if your symptoms persist. Carafate may be added to PPI treatment in refractory cases. Avoiding smoking, alcohol and antiinflammatory medications are important in the successful treatment of reflux esophagitis and peptic diseases. Other factors that contribute to gastritis, GERD and esophagitis are being overweight, eating large meals before laying down and certain foods. Weight loss will help improve many GERD complaints. Remaining upright after eating large meals and having a small supper will also help symptoms. Avoiding food that contribute to reflux - chocolate, caffeine, cheddar cheese may also help. Follow up upper endoscopy may be recommended to assure healing of the esophagus. New or worsening symptoms such are epigastric pain, burning, difficulty swallowing or food sticking should be relayed to your physician. Feeling full early after eating, or black, tarry, foul smelling stools are also worrisome. If you have any difficulties or concerns, you should contact our office immediately. If you note any additional difficulties, questions, or concerns, you should contact our office immediately @ [phone] and ask to be transferred to the General Surgery department. Encounter Status:Closed by KAYLYN DEGROOT PA-C on 10/30/19 [facility] CNOVon 10-17-2019 CNOV Office Visit (GENSWS ) HALEIGH ALMEIDA ([id number]) 1955 F Date Time Provider Department 10/17/19 10:00 AM KAYLYN DEGROOT GENSUNILS During your visit today, we recorded the following information about you: Temperature Pulse Blood pressure Weight 97.3 degrees 65/minute 92/60 64.9 kg Height 1.626 m Kaylyn Degroot PA-C 10/17/2019 4:46 PM Signed HISTORY AND PHYSICAL Haleigh Almeida 1955 REFERRING PHYSICIAN: MD Abhay CHIEF COMPLAINT: Established Patient (update HANDP Colonoscopy) HPI: The patient is a 64 year old female referred for endoscopy due to heme positive stool. The patient was actually evaluated in July 2019, per my note at that time: The patient is a 64 year old female referred for endoscopy. Haleigh notes she had an iFOBT done through her insurance which was positive for occult blood. She was recently evaluated by her primary care physician and is referred here for endoscopy. Patient denies any change in bowel habits, weight changes, visible blood in stools, black tarry stools or abdominal pain. NOTES father had colon cancer. The patient notes some recent nausea. Haleigh has undergone prior endoscopy, most recently in February [address] Berger with no concerning findings at that time. ? Patient was recently hospitalized at [facility] in June 2019 with complaints of chest pain and dyspnea on exertion. Patient has a prior history of coronary artery disease and is s/p CABG/PCI. Patient had EKG which showed no ST changes, and had negative troponins. Cardiology was consulted during her hospitalization and she had a heart cath 06/21/19, did not require further intervention at that time. She was noted to have an elevated d-dimer during her hospitalization, Had a VQ scan which was normal. She was discharged and instructed to follow up with primary care and cardiology. Patient follows with Dr. Odom for her chronic medical conditions. Patient denies any further complaints since her hospital discharge. She has a cardiology appointment scheduled for later today. She is maintained on Plavix and aspirin. Other past medical history significant for melanoma on arm, prior history of GERD, sleep apnea, mitral valve insufficiency, peripheral vascular disease. Patient was previously scheduled to have colonoscopy and EGD in August, and then patient rescheduled procedure for September but had to cancel due to an upper respiratory infection. Patient presents today to update HANDP and reschedule procedures. She notes she is feeling much better and denies any shortness of breath, only some residual dry cough of which her PCP is aware. She notes no new GI complaints since last visit. She notes significant anxiety regarding the procedure as I was awake and felt everything last time when her procedure was done with conscious sedation. 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 hx of 7 heart stents - last placed 05/18 - EGD W/O OR W/BRUSH/WASH 04/21/15 EGD inpt [facility] - HEMORRHOID;BAND LIGAT, SNGL/MUL Hemorrhoidectomy - INT REPAIR SCALP,JEISON,TRUNK 2.6-7.5CM 08-07-08 RIGHT UPPER ARM - LAPAROSCOPIC CHOLEYCYSTECTOMY 1996 Cholecystectomy, lap - MAL LESION TRUNK,ARM,LEG 2.1-3.0 CM 08-07-08 RIGHT UPPER ARM - PART REMOVAL COLON W ANASTOMOSIS 1995 Hemicolectomy/OBSTRUCT ION - PAST SURGICAL HISTORY OF NECK SURGERY WITH PLATE - PERCUTANEOUS CORONARY INTERVENTION - REM LESION FACE,EAR,EYE 2.1-3 CM 03-05-13 - STENT PLACEMENT cardiac stent x7. last 08/2012 - TOTAL ABDOM HYSTERECTOMY 1983 Hysterectomy, AN - TRANSCATH STENT ADDN VESSEL,PERCUT Transcath stent addn vessel percut - UVULECTOMY EXCISION OF UVULA Current Outpatient Medications Medication Sig - sertraline (ZOLOFT) 25 mg tablet Take 25 mg by mouth once daily. - isosorbide dinitrate (ISORDIL, SORBITRATE) 30 mg tablet Take 30 mg by mouth once daily. - HYDROmorphone (DILAUDID) 2 mg tablet Take 2 mg by mouth every 8 hours as needed. - LISINOPRIL ORAL Take 5 mg by mouth. - aspirin, enteric coated (ADULT LOW DOSE ASPIRIN) 81 mg EC tablet Take 1 tablet by mouth once daily. - cyclobenzaprine (FLEXERIL) 10 mg tablet Take 1 tablet by mouth every 8 hours as needed. FOR PAIN OR SPASMS - traZODone 50 mg tablet Take 1 tablet by mouth daily at bedtime. - tiotropium bromide(SPIRIVA WITH HANDIHALER 18 MCG AND INHALATION CAPS) as necessary - omeprazole (PRILOSEC) 20 mg ORAL CpDR Take one(1) capsule daily. - clopidogrel (PLAVIX) 75 mg tablet Take 1 tablet by mouth once daily. - COQ10, LIPOSOMAL UBIQUINOL, ORAL Take by mouth. - primidone (MYSOLINE) 50 mg tablet Take 50 mg by mouth daily at bedtime. - cholecalciferol (VITAMIN D-3) 5,000 unit tab Take 5,000 Units by mouth once daily. - CPAP daily at bedtime. - clonazePAM 1 mg tablet Take 1 mg by mouth three times daily as needed. No current facility-administered medications for this visit. ALLERGIES: Atorvastatin; Contrast Dye; Naprosyn [Naproxen]; Tcn [Tetracyclines] PERSONAL HISTORY: Social History Tobacco Use - Smoking status: Current Every Day Smoker Packs/day: 0.50 Years: 33.00 Pack years: 16.50 Types: Cigarettes Last attempt to quit: 03/07/2007 Years since quittin.6 - Smokeless tobacco: Never Used - Tobacco comment: currently smoking 1/2 ppd Substance Use Topics - Alcohol use: No - Drug use: No FAMILY HISTORY: FAMILY HISTORY Problem Relation Age of Onset - Cancer Mother a. age 73: lung and pancreatic - Cancer Father a. age 76: skin and colon alive - Colon Cancer Father - other (PVD) Father s/p leg surgery - Multiple Sclerosis Sister REVIEW OF SYSTEMS GENERAL: No weight loss, malaise or fevers HEENT: Negative for frequent or significant headaches, No changes in hearing or vision, no nose bleeds or other nasal problems RESPIRATORY: See HPI CARDIOVASCULAR: Negative for chest pain, leg swelling, hypertension, CHF or palpitations GI: No nausea, vomiting, or diarrhea SKIN: Negative for lesions, rash, and itching ?In addition to above, notes history of occasional PVCs. Follows with [facility] ? When was patient's last Mammogram screening? 03/2016 ? Last Colonoscopy: 02/2013 [facility] ? PHYSICAL EXAMINATION: General: The patient is 64 year old female, well nourished, well hydrated in no acute distress. The patient is oriented to time, place, and person. VITALS: Blood pressure 92/60, pulse 65, temperature 36.3 ?C (97.3 ?F), height 162.6 cm (5' 4), weight 64.9 kg (143 lb), SpO2 100 %. Body mass index is 24.55 kg/m?. HEENT: Normal cephalic, ataumatic, pupils are equally round, sclera are anicteric, mucous membranes are moist, oropharynx is clear. Neck has no masses, asymmetry or lymphadenopathy. Respiratory: Clear to auscultation and percussion. Normal respiratory excursion and pattern. Cardiac: Examination is regular rate and rhythm. Normal S1/S2 Abdominal exam: Soft, nontender, with no palpable masses. No hepatosplenomegaly. No palpable hernias. Extremities: no clubbing, cyanosis or edema. No adenopathy. LABORATORY VALUES: As Noted RADIOLOGIC STUDIES: As Noted Assessment IMPRESSION: heme positive stool, family history of colon cancer, nausea, s/p CABG, on oral anticoagulation PLAN: I have reviewed my findings with the surgeon. Will plan for upper and lower endoscopy. We discussed the risks and benefits of the planned endoscopy. I have informed the patient that complications can occur including failure to complete the endoscopy and perforation. The patient had the opportunity to ask questions concerning the planned endoscopy. My staff has also explained the procedure to the patient in understandable terms and has given the patient printed material concerning the procedure. The patient freely consents to surgery. I plan to use Golytely bowel preparation-patient has Rx Patient to remain on her routine medications including her anticoagulation for the procedure, per Dr. Katz The patient has medical comorbidities for which we will plan for the procedure to be performed under Monitored Anesthetic Care. Patient also had recall from prior colonoscopy and very anxious about endoscopy Diagnoses: (R19.5) Heme positive stool (primary encounter diagnosis) (R11.0) Nausea (Z80.0) Family history of colon cancer (Z95.1) S/P CABG (coronary artery bypass graft) (Z79.01) On continuous oral anticoagulation Kaylyn Degroot PA-C Referring Provider: SELF [[id number]] Allergies As of Date: 10/17/2019 Noted Allergy Reaction ATORVASTATIN 10/01/2018 5 - Intolerance CONTRAST DYE 07/17/2007 4 - Hives NAPROSYN (NAPROXEN) 11/06/2008 8 - GI Upset TCN (TETRACYCLINES) 07/17/2007 4 - Hives Date Reviewed: 10/17/2019 Reviewed by: Kaylyn Degroot - Fully Assessed Reason for Visit: Established Patient [175] Cmt: update HANDP Colonoscopy Primary Visit Diagnosis:Heme positive stool [R19.5] Other Visit Diagnoses:Nausea [R11.0] Family history of colon cancer [Z80.0] S/P CABG (coronary artery bypass graft) [Z95.1] On continuous oral anticoagulation [Z79.01] Order(s):clopidogrel (PLAVIX) 75 mg tabletTake 1 tablet by mouth once daily.Disp: Rfl: 0 Prescriptions as of 10/17/2019 Sig: SERTRALINE 25 MG TABLET Take 25 mg by mouth once rachele* ISOSORBIDE DINITRATE 30 MG TA* Take 30 mg by mouth once rachele* HYDROMORPHONE 2 MG TABLET Take 2 mg by mouth every 8 ho* LISINOPRIL ORAL Take 5 mg by mouth. ASPIRIN 81 MG TABLET,DELAYED * Take 1 tablet by mouth once d* CYCLOBENZAPRINE 10 MG TABLET Take 1 tablet by mouth every * TRAZODONE 50 MG TABLET Take 1 tablet by mouth daily * SPIRIVA WITH HANDIHALER 18 MC* as necessary PRILOSEC 20 MG CAPSULE,DELAYE* Take one(1) capsule daily. CLOPIDOGREL 75 MG TABLET Take 1 tablet by mouth once d* COQ10 (LIPOSOMAL UBIQUINOL) O* Take by mouth. PRIMIDONE 50 MG TABLET Take 50 mg by mouth daily at * CHOLECALCIFEROL (VITAMIN D3) * Take 5,000 Units by mouth onc* CPAP daily at bedtime. CLONAZEPAM 1 MG TABLET Take 1 mg by mouth three time* Medication notes this encounter QUETIAPINE 25 MG TABLET >> Luis Armando Bhardwaj LPN 10/17/2019 10:11 AM >> LUIS ARMANDO BHARDWAJ LPN [facility] Oct 17, 2019 10:11 AM Please d/c PROMETHAZINE 12.5 MG TABLET >> Luis Armando Bhardwaj MAILING SECTION CLERK 10/17/2019 10:11 AM >> LUIS ARMANDO BHARDWAJ LPN [facility] Oct 17, 2019 10:11 AM Please óscar DICLOFENAC 1 % TOPICAL GEL >> Luis Armando Bhardwaj LPN 10/17/2019 10:14 AM >> LUIS ARMANDO BHARDWAJ LPN [facility] Oct 17, 2019 10:14 AM Please óscar FERROUS SULFATE 325 MG (65 MG IRON) TABLET,DELAYED RELEASE >> Luis Armando Bhardwaj LPN 10/17/2019 10:13 AM >> LUIS ARMANDO BHARDWAJ LPN [facility] Oct 17, 2019 10:13 AM Please óscar CYANOCOBALAMIN (VIT B-12) 1,000 MCG/ML INJECTION KIT >> Luis Armando Bhardwaj LPN 10/17/2019 10:14 AM >> LUIS ARMANDO BHARDWAJ LPN [facility] Oct 17, 2019 10:14 AM Please óscar LIDOCAINE 5 % TOPICAL PATCH >> Luis Armando Bhardwaj LPN 10/17/2019 10:12 AM >> LUIS ARMANDO BHARDWAJ LPN [facility] Oct 17, 2019 10:12 AM Please óscar -1 ORAL >> Luis Armando Bhardwaj [facility] 10/17/2019 10:11 AM >> LUIS ARMANDO BHARDWAJ MAILING SECTION CLERK [facility] Oct 17, 2019 10:11 AM Please óscar ROSUVASTATIN 5 MG TABLET >> Luis Armando Bhardwaj [facility] 10/17/2019 10:10 AM >> LUIS ARMANDO BHARDWAJ MAILING SECTION CLERK [facility] Oct 17, 2019 10:10 AM Please lenora/olamide OXYCODONE-ACETAMINOPHE N 5 MG-325 MG TABLET >> Luis Armando Bhardwaj [facility] 10/17/2019 10:11 AM >> LUIS ARMANDO BHARDWAJ MAILING SECTION CLERK [facility] Oct 17, 2019 10:11 AM Please óscar MELOXICAM 15 MG TABLET >> Luis Armando Bhardwaj [facility] 10/17/2019 10:12 AM >> LUIS ARMANDO BHARDWAJ MAILING SECTION CLERK [facility] Oct 17, 2019 10:12 AM Please óscar BUSPIRONE 5 MG TABLET >> Luis Armando Bhardwaj [facility] 10/17/2019 10:14 AM >> LUIS ARMANDO BHARDWAJ LPN [facility] Oct 17, 2019 10:14 AM Please óscar FENTANYL 75 MCG/HR TRANSDERMAL PATCH >> Luis Armando Bhardwaj [facility] 10/17/2019 10:14 AM >> LUIS ARMANDO BHARDWAJ LPN [facility] Oct 17, 2019 10:14 AM Luis Manuel cantrell CITALOPRAM 20 MG TABLET >> Luis Armando Bhardwaj [facility] 10/17/2019 10:14 AM >> LUIS ARMANDO BHARDWAJ MAILING SECTION CLERK [facility] Oct 17, 2019 10:14 AM Luis Manuel cantrell HYDROCORTISONE 2.5 % LOTION >> Luis Armando Bhardwaj [facility] 10/17/2019 10:12 AM >> LUIS ARMANDO BHARDWAJ LPN [facility] Oct 17, 2019 10:12 AM Luis Manuel cantrell FUROSEMIDE 40 MG TABLET >> Luis Armando Bhardwaj [facility] 10/17/2019 10:04 AM >> LUIS ARMANDO BHARDWAJ LPN [facility] Oct 17, 2019 10:04 AM NITROSTAT 0.4 MG SUBLINGUAL TABLET >> Luis Armando Bhardwaj [facility] 10/17/2019 10:12 AM >> LUIS ARMANDO BHARDWAJ LPN [facility] Oct 17, 2019 10:12 AM Please óscar Problem List As Of Date 10/17/2019 Noted Resolved Peripheral vascular disease, unspecified [I73.9]07/17/2007 More... MELANOMA ARM [C43.60] 07/09/2008 ESOPHAGEAL REFLUX [K21.9] More... CHRONIC AIRWAY OBSTRUCTION NEC [J44.9] PMH - PAST MEDICAL HISTORY OF More... Cor athrscl-uns vessel [I25.10] More... ADJUSTMENT DISORDER WITH DEPRESSED MOOD [F43.21] GANGLION OF JOINT [M67.40] 11/06/2008 HTN (hypertension) [I10] 02/09/2011 Hyperlipidemia [E78.5] 02/09/2011 Abnormal LFTs [R94.5] 02/09/2011 Mitral valve insufficiency [I08.0] 02/09/2011 More... Tobacco use disorder [F17.200] 02/09/2011 Angina 02/09/2011 Heart palpitations [R00.2] 02/09/2011 More... Prescriptions ordered this encounter Disp Refills Start End CLOPIDOGREL 75 MG TABLET 0 10/17/2019 Class: Med Update Route: ORAL Sig: Take 1 tablet by mouth once daily. Medications Discontinued During This Encounter furosemide (LASIX) 40 mg tablet 0 01/26/2013 10/17/2019 Class: Historical Med Route: ORAL Sig: Take 20 mg by mouth once daily. Disc: Reason for discontinue is not on file. clopidogrel (PLAVIX) 75 mg tablet 0 01/26/2013 10/17/2019 Class: Historical Med Route: ORAL Sig: Take 1 tablet by mouth once daily. Disc: Reason for discontinue is not on file. metoprolol tartrate 25 mg ORAL tablet 0 03/22/2011 10/17/2019 Class: Med Update Route: ORAL Sig: Take 12.5 mg by mouth once daily. Disc: Reason for discontinue is not on file. albuterol 90 mcg/Actuation INHALATIO* 0 07/17/2007 10/17/2019 Class: Med Update Route: INHALATION Sig: Inhale one(1) - two(2) puffs four(4) times a day as needed for wheezing and shortness of breath. Disc: Reason for discontinue is not on file. QUEtiapine (SEROQUEL) 25 mg tablet 10/17/2019 Class: Historical Med Route: ORAL Sig: Take 25 mg by mouth twice daily. Disc: Reason for discontinue is not on file. promethazine (PHENERGAN) 12.5 mg tab* 10/17/2019 Class: Historical Med Route: ORAL Sig: Take 12.5 mg by mouth every 6 hours as needed. Disc: Reason for discontinue is not on file. diclofenac sodium (VOLTAREN) 1 % top* 10/17/2019 Class: Historical Med Route: TOPICAL Sig: Apply to affected area four times daily. Disc: Reason for discontinue is not on file. ferrous sulfate 325 mg (65 mg iron) * 10/17/2019 Class: Historical Med Route: ORAL Sig: Take 325 mg by mouth daily with breakfast. Disc: Reason for discontinue is not on file. cyanocobalamin, vitamin B-12, 1,000 * 10/17/2019 Class: Historical Med Route: INJECTION(UNSPECIFIED PARENTERAL ROUTES) Sig: by INJECTION(UNSPECIFIED PARENTERAL ROUTES) route every 2 weeks. Disc: Reason for discontinue is not on file. lidocaine (LIDODERM) 5 % 5 Pa* 0 01/05/2019 10/17/2019 Class: Print RX Route: TRANSDERMAL Sig: Apply 1 Patch as directed every 24 hours. Disc: Reason for discontinue is not on file. 25/iron fum/folic/dha (PREN* 10/17/2019 Class: Historical Med Route: ORAL Sig: Take by mouth. Disc: Reason for discontinue is not on file. rosuvastatin (CRESTOR) 5 mg tablet 10/17/2019 Class: Historical Med Route: ORAL Sig: Take 5 mg by mouth once daily. Disc: Reason for discontinue is not on file. oxyCODONE-acetaminophe n (PERCOCET) 5* 10/17/2019 Class: Historical Med Route: ORAL Sig: Take 1 tablet by mouth every 8 hours as needed. Disc: Reason for discontinue is not on file. meloxicam (MOBIC) 15 mg tablet 10/17/2019 Class: Historical Med Route: ORAL Sig: Take 15 mg by mouth once daily. Disc: Reason for discontinue is not on file. busPIRone (BUSPAR) 5 mg tablet 10/17/2019 Class: Historical Med Route: ORAL Sig: Take 10 mg by mouth three times daily. Disc: Reason for discontinue is not on file. fentaNYL (DURAGESIC) 75 mcg/hr 10/17/2019 Class: Historical Med Route: TRANSDERMAL Sig: Apply 1 Patch as directed every 72 hours. Disc: Reason for discontinue is not on file. CITALOPRAM 20 mg tablet 08/07/2013 10/17/2019 Class: Historical Med Si mg once daily. Disc: Reason for discontinue is not on file. METOPROLOL TARTRATE, SHORT ACTING, 5* 07/28/2013 10/17/2019 Class: Historical Med Sig: Disc: Reason for discontinue is not on file. MORPHINE SR 60 mg 12 hr tablet 09/19/2013 10/17/2019 Class: Historical Med Sig: Disc: Reason for discontinue is not on file. MORPHINE IMMEDIATE RELEASE 15 mg tab* 09/19/2013 10/17/2019 Class: Historical Med Sig: Disc: Reason for discontinue is not on file. RAMIPRIL 2.5 mg capsule 02/13/2013 10/17/2019 Class: Historical Med Sig: Disc: Reason for discontinue is not on file. HYDROCORTISONE 2.5 % lotion 01/17/2013 10/17/2019 Class: Historical Med Sig: as needed. Disc: Reason for discontinue is not on file. temazepam (RESTORIL) 15 mg cap 0 01/26/2013 10/17/2019 Class: Historical Med Route: ORAL Sig: Take by mouth at bedtime as needed. Disc: Reason for discontinue is not on file. COMPOUNDED PRESCRIPTION 0 01/26/2013 10/17/2019 Class: Historical Med Sig: Vitamin D 2000 unit tablet Disc: Reason for discontinue is not on file. atorvastatin (LIPITOR) 10 mg tablet 0 01/26/2013 10/17/2019 Class: Historical Med Route: ORAL Sig: Take 1 tablet by mouth once daily. Disc: Reason for discontinue is not on file. nitroglycerin sublingual (NITROSTAT)* 0 07/17/2007 10/17/2019 Class: Med Update Route: SUBLINGUAL Sig: prn chest pain Disc: Reason for discontinue is not on file. methylPREDNISolone (MEDROL, BERNA,) 4 * 1 Pa* 0 02/17/2018 10/17/2019 Class: Print RX Sig: Take by mouth. As directed on package Patient not taking: Reported on 07/18/2019 Disc: Reason for discontinue is not on file. Encounter Status:Closed by KAYLYN DEGROOT PA-C on 10/17/19 [facility] PROGRESSon 10-17-2019 PROGRESS HNO ID: [id number] Author: Kaylyn Degroot Service: ? Author Type: Physician Mixer Machine Feeder Type: Progress Notes Filed: 10/17/2019 4:46 PM Note Text: HISTORY AND PHYSICAL Haleigh Almeida 1955 REFERRING PHYSICIAN: MD Abhay CHIEF COMPLAINT: Established Patient (update HANDP Colonoscopy) HPI: The patient is a 64 year old female referred for endoscopy due to heme positive stool. The patient was actually evaluated in July 2019, per my note at that time: The patient is a 64 year old female referred for endoscopy. Haleigh notes she had an iFOBT done through her insurance which was positive for occult blood. She was recently evaluated by her primary care physician and is referred here for endoscopy. Patient denies any change in bowel habits, weight changes, visible blood in stools, black tarry stools or abdominal pain. NOTES father had colon cancer. The patient notes some recent nausea. Haleigh has undergone prior endoscopy, most recently in February [address] Berger with no concerning findings at that time. ? Patient was recently hospitalized at [facility] in June 2019 with complaints of chest pain and dyspnea on exertion. Patient has a prior history of coronary artery disease and is s/p CABG/PCI. Patient had EKG which showed no ST changes, and had negative troponins. Cardiology was consulted during her hospitalization and she had a heart cath 06/21/19, did not require further intervention at that time. She was noted to have an elevated d-dimer during her hospitalization, Had a VQ scan which was normal. She was discharged and instructed to follow up with primary care and cardiology. Patient follows with Dr. Odom for her chronic medical conditions. Patient denies any further complaints since her hospital discharge. She has a cardiology appointment scheduled for later today. She is maintained on Plavix and aspirin. Other past medical history significant for melanoma on arm, prior history of GERD, sleep apnea, mitral valve insufficiency, peripheral vascular disease. Patient was previously scheduled to have colonoscopy and EGD in August, and then patient rescheduled procedure for September but had to cancel due to an upper respiratory infection. Patient presents today to update HANDP and reschedule procedures. She notes she is feeling much better and denies any shortness of breath, only some residual dry cough of which her PCP is aware. She notes no new GI complaints since last visit. She notes significant anxiety regarding the procedure as I was awake and felt everything last time when her procedure was done with conscious sedation. PAST MEDICAL HISTORY Diagnosis Date - Adjustment disorder with depressed mood - Chronic airway obstruction, not elsewhere classified - Coronary artery disease - Coronary atherosclerosis of unspecified type of vessel, port gamble or graft - Dyslipidemia - Esophageal reflux Gastroesophageal reflux - Malignant melanoma of skin of upper limb, including shoulder (HCC) 2007 right arm - Obstructive sleep apnea - Peripheral vascular disease (HCC) - PMH - PAST MEDICAL HISTORY OF low back DDD- in pain management PAST SURGICAL HISTORY Procedure Laterality Date - APPENDECTOMY - BLADDER SURGERY HX - CABG, ARTERY-VEIN, THREE 2003 CABG, three grafts - COLONOSCOPY W/BX 02-16-13 needs repeat in 5 years, high risk d/t family history - CORONARY ARTERY BYPASS GRAFT triple bypass 2006. hx of 7 heart stents - last placed 05/18 - EGD W/O OR W/BRUSH/WASH 04/21/15 EGD inpt [facility] - HEMORRHOID;BAND LIGAT, SNGL/MUL Hemorrhoidectomy - INT REPAIR SCALP,JEISON,TRUNK 2.6-7.5CM 08-07-08 RIGHT UPPER ARM - LAPAROSCOPIC CHOLEYCYSTECTOMY 1996 Cholecystectomy, lap - MAL LESION TRUNK,ARM,LEG 2.1-3.0 CM 08-07-08 RIGHT UPPER ARM - PART REMOVAL COLON W ANASTOMOSIS 1995 Hemicolectomy/OBSTRUCT ION - PAST SURGICAL HISTORY OF 1990s NECK SURGERY WITH PLATE - PERCUTANEOUS CORONARY INTERVENTION - REM LESION FACE,EAR,EYE 2.1-3 CM 03-05-13 - STENT PLACEMENT cardiac stent x7. last 08/2012 - TOTAL ABDOM HYSTERECTOMY 1983 Hysterectomy, AN - TRANSCATH STENT ADDN VESSEL,PERCUT Transcath stent addn vessel percut - UVULECTOMY EXCISION OF UVULA Current Outpatient Medications Medication Sig - sertraline (ZOLOFT) 25 mg tablet Take 25 mg by mouth once daily. - isosorbide dinitrate (ISORDIL, SORBITRATE) 30 mg tablet Take 30 mg by mouth once daily. - HYDROmorphone (DILAUDID) 2 mg tablet Take 2 mg by mouth every 8 hours as needed. - LISINOPRIL ORAL Take 5 mg by mouth. - aspirin, enteric coated (ADULT LOW DOSE ASPIRIN) 81 mg EC tablet Take 1 tablet by mouth once daily. - cyclobenzaprine (FLEXERIL) 10 mg tablet Take 1 tablet by mouth every 8 hours as needed. FOR PAIN OR SPASMS - traZODone 50 mg tablet Take 1 tablet by mouth daily at bedtime. - tiotropium bromide(SPIRIVA WITH HANDIHALER 18 MCG AND INHALATION CAPS) as necessary - omeprazole (PRILOSEC) 20 mg ORAL CpDR Take one(1) capsule daily. - clopidogrel (PLAVIX) 75 mg tablet Take 1 tablet by mouth once daily. - COQ10, LIPOSOMAL UBIQUINOL, ORAL Take by mouth. - primidone (MYSOLINE) 50 mg tablet Take 50 mg by mouth daily at bedtime. - cholecalciferol (VITAMIN D-3) 5,000 unit tab Take 5,000 Units by mouth once daily. - CPAP daily at bedtime. - clonazePAM 1 mg tablet Take 1 mg by mouth three times daily as needed. No current facility-administered medications for this visit. ALLERGIES: Atorvastatin; Contrast Dye; Naprosyn [Naproxen]; Tcn [Tetracyclines] PERSONAL HISTORY: Social History Tobacco Use - Smoking status: Current Every Day Smoker Packs/day: 0.50 Years: 33.00 Pack years: 16.50 Types: Cigarettes Last attempt to quit: 03/07/2007 Years since quittin.6 - Smokeless tobacco: Never Used - Tobacco comment: currently smoking 1/2 ppd Substance Use Topics - Alcohol use: No - Drug use: No FAMILY HISTORY: FAMILY HISTORY Problem Relation Age of Onset - Cancer Mother a. age 73: lung and pancreatic - Cancer Father a. age 76: skin and colon alive - Colon Cancer Father - other (PVD) Father s/p leg surgery - Multiple Sclerosis Sister REVIEW OF SYSTEMS GENERAL: No weight loss, malaise or fevers HEENT: Negative for frequent or significant headaches, No changes in hearing or vision, no nose bleeds or other nasal problems RESPIRATORY: See HPI CARDIOVASCULAR: Negative for chest pain, leg swelling, hypertension, CHF or palpitations GI: No nausea, vomiting, or diarrhea SKIN: Negative for lesions, rash, and itching ?In addition to above, notes history of occasional PVCs. Follows with [facility] ? When was patient's last Mammogram screening? 03/2016 ? Last Colonoscopy: 02/2013 [facility] ? PHYSICAL EXAMINATION: General: The patient is 64 year old female, well nourished, well hydrated in no acute distress. The patient is oriented to time, place, and person. VITALS: Blood pressure 92/60, pulse 65, temperature 36.3 ?C (97.3 ?F), height 162.6 cm (5' 4), weight 64.9 kg (143 lb), SpO2 100 %. Body mass index is 24.55 kg/m?. HEENT: Normal cephalic, ataumatic, pupils are equally round, sclera are anicteric, mucous membranes are moist, oropharynx is clear. Neck has no masses, asymmetry or lymphadenopathy. Respiratory: Clear to auscultation and percussion. Normal respiratory excursion and pattern. Cardiac: Examination is regular rate and rhythm. Normal S1/S2 Abdominal exam: Soft, nontender, with no palpable masses. No hepatosplenomegaly. No palpable hernias. Extremities: no clubbing, cyanosis or edema. No adenopathy. LABORATORY VALUES: As Noted RADIOLOGIC STUDIES: As Noted Assessment IMPRESSION: heme positive stool, family history of colon cancer, nausea, s/p CABG, on oral anticoagulation PLAN: I have reviewed my findings with the surgeon. Will plan for upper and lower endoscopy. We discussed the risks and benefits of the planned endoscopy. I have informed the patient that complications can occur including failure to complete the endoscopy and perforation. The patient had the opportunity to ask questions concerning the planned endoscopy. My staff has also explained the procedure to the patient in understandable terms and has given the patient printed material concerning the procedure. The patient freely consents to surgery. I plan to use Golytely bowel preparation-patient has Rx Patient to remain on her routine medications including her anticoagulation for the procedure, per Dr. Katz The patient has medical comorbidities for which we will plan for the procedure to be performed under Monitored Anesthetic Care. Patient also had recall from prior colonoscopy and very anxious about endoscopy Diagnoses: (R19.5) Heme positive stool (primary encounter diagnosis) (R11.0) Nausea (Z80.0) Family history of colon cancer (Z95.1) S/P CABG (coronary artery bypass graft) (Z79.01) On continuous oral anticoagulation Kaylyn Degroot PA-C Normal [facility] CNOVon 07-18-2019 CNOV Office Visit (GENSWS ) HALEIGH ALMEIDA ([id number]) 1955 F Date Time Provider Department 07/18/19 9:00 AM KAYLYN DEGROOT KEVIN During your visit today, we recorded the following information about you: Temperature Pulse Respiration Blood pressure 97.7 degrees 75/minute 14/minute 138/70 Weight Height 65.8 kg 1.626 m Merle Vera KALI 07/18/2019 8:57 AM Signed REVIEW OF SYSTEMS: General: The patient denies fatigue, denies weight loss, denies weight gain, denies feeling hot, and denies feelings of cold. Eyes: The patient denies glaucoma, NOTES eye injury/surgery, wears glasses or contacts. Ear/Nose/Throat: The patient denies allergies, denies hayfever, denies ear infections, and denies bloody noses. Cardiovascular: The patient NOTES chest pain, NOTES heart disease, denies high blood pressure,NOTES cardiac stent, NOTES prior heart attack, NOTES irregular heart beat, denies high cholesterol, denies poor circulation, denies heart failure, other cardiac issues, denies claudication, denies cold feet, denies peripheral arterial stent. Respiratory: The patient denies tuberculosis, denies pneumonia, denies frequent cough, denies pulmonary embolism, denies shortness of breath, and denies coughing up blood. Gastrointestinal: The patient denies difficulty swallowing, NOTES acid reflux, denies ulcers, denies vomiting, denies jaundice/hepatitis, NOTES gallbladder problems, denies black or tarry stools, NOTES hemorrhoids, denies bleeding from rectum, denies diverticulitis, denies constipation, denies diarrhea, denies loss of stool control, and denies hernias. Kidney/Bladder: The patient denies kidney stones, denies urine infections, and denies bloody urine. Skin: The patient NOTES a history of skin cancer, denies bleeding/changing moles, and denies a history of skin rash. Neurologic: The patient denies a history of epilepsy/convulsions, denies headaches, denies head/spinal injuries, and denies stroke/TIA. Psychiatric: The patient denies psychiatric medications, NOTES depression, and denies voices, denies substance abuse. Endocrine: The patient denies thyroid disorders, denies diabetes, and denies hormonal problems. Hematologic: The patient NOTES a history of bruising, NOTES bleeding, and denies anemia, denies blood clots. Infections: The patient denies a history of measles and mumps, denies rheumatic fever, and denies sexually transmitted diseases. Musculoskeletal: The patient NOTES back pain/injury, denies back problems, denies sciatica, denies knee/foot trouble, NOTES arthritis, or denies gout. When was patient's last Mammogram screening? 03/2016 Last Colonoscopy: 02/2013 Celine Degroot PA-C 07/18/2019 3:35 PM Signed HISTORY AND PHYSICAL Haleigh Lima Willieangeldarrel 1955 REFERRING PHYSICIAN: Radha Odom, * CHIEF COMPLAINT: colon consult HPI: The patient is a 64 year old female referred for endoscopy. Haleigh notes she had an iFOBT done through her insurance which was positive for occult blood. She was recently evaluated by her primary care physician and is referred here for endoscopy. Patient denies any change in bowel habits, weight changes, visible blood in stools, black tarry stools or abdominal pain. NOTES father had colon cancer. The patient notes some recent nausea. Haleigh has undergone prior endoscopy, most recently in February [address] Berger with no concerning findings at that time. Patient was recently hospitalized at [facility] in June 2019 with complaints of chest pain and dyspnea on exertion. Patient has a prior history of coronary artery disease and is s/p CABG/PCI. Patient had EKG which showed no ST changes, and had negative troponins. Cardiology was consulted during her hospitalization and she had a heart cath 06/21/19, did not require further intervention at that time. She was noted to have an elevated d-dimer during her hospitalization, Had a VQ scan which was normal. She was discharged and instructed to follow up with primary care and cardiology. Patient follows with Dr. Odom for her chronic medical conditions. Patient denies any further complaints since her hospital discharge. She has a cardiology appointment scheduled for later today. She is maintained on Plavix and aspirin. Other past medical history significant for melanoma on arm, prior history of GERD, sleep apnea, mitral valve insufficiency, peripheral vascular disease. Patient denies problems with sedation in the past. PAST MEDICAL HISTORY Diagnosis Date - Adjustment disorder with depressed mood - Chronic airway obstruction, not elsewhere classified - Coronary artery disease - Coronary atherosclerosis of unspecified type of vessel, port gamble or graft - Dyslipidemia - Esophageal reflux Gastroesophageal reflux - Malignant melanoma of skin of upper limb, including shoulder (HCC) 2007 right arm - Obstructive sleep apnea - Peripheral vascular disease (HCC) - PMH - PAST MEDICAL HISTORY OF low back DDD- in pain management PAST SURGICAL HISTORY Procedure Laterality Date - APPENDECTOMY - BLADDER SURGERY HX - CABG, ARTERY-VEIN, THREE 2003 CABG, three grafts - COLONOSCOPY W/BX 02-16-13 needs repeat in 5 years, high risk d/t family history - CORONARY ARTERY BYPASS GRAFT triple bypass 2006. hx of 7 heart stents - last placed 05/18 - EGD W/O OR W/BRUSH/WASH 04/21/15 EGD inpt [facility] - HEMORRHOID;BAND LIGAT, SNGL/MUL Hemorrhoidectomy - INT REPAIR SCALP,JEISON,TRUNK 2.6-7.5CM 08-07-08 RIGHT UPPER ARM - LAPAROSCOPIC CHOLEYCYSTECTOMY 1996 Cholecystectomy, lap - MAL LESION TRUNK,ARM,LEG 2.1-3.0 CM 08-07-08 RIGHT UPPER ARM - PART REMOVAL COLON W ANASTOMOSIS 1995 Hemicolectomy/OBSTRUCT ION - PAST SURGICAL HISTORY OF NECK SURGERY WITH PLATE - PERCUTANEOUS CORONARY INTERVENTION - REM LESION FACE,EAR,EYE 2.1-3 CM 03-05-13 - STENT PLACEMENT cardiac stent x7. last 08/2012 - TOTAL ABDOM HYSTERECTOMY 1983 Hysterectomy, AN - TRANSCATH STENT ADDN VESSEL,PERCUT Transcath stent addn vessel percut - UVULECTOMY EXCISION OF UVULA Current Outpatient Medications: promethazine (PHENERGAN) 12.5 mg tablet Take 12.5 mg by mouth every 6 hours as needed. COQ10, LIPOSOMAL UBIQUINOL, ORAL Take by mouth. diclofenac sodium (VOLTAREN) 1 % topical gel Apply to affected area four times daily. isosorbide dinitrate (ISORDIL, SORBITRATE) 30 mg tablet Take 30 mg by mouth four times daily. HYDROmorphone (DILAUDID) 2 mg tablet Take 2 mg by mouth every 3 hours as needed. ferrous sulfate 325 mg (65 mg iron) EC tablet Take 325 mg by mouth daily with breakfast. cyanocobalamin, vitamin B-12, 1,000 mcg/mL kit by INJECTION(UNSPECIFIED PARENTERAL ROUTES) route every 2 weeks. lidocaine (LIDODERM) 5 % Apply 1 Patch as directed every 24 hours. LISINOPRIL ORAL Take 2.5 mg by mouth. meloxicam (MOBIC) 15 mg tablet Take 15 mg by mouth once daily. primidone (MYSOLINE) 50 mg tablet Take 50 mg by mouth four times daily. busPIRone (BUSPAR) 5 mg tablet Take 5 mg by mouth three times daily. CITALOPRAM 20 mg tablet 40 mg once daily. CPAP daily at bedtime. aspirin, enteric coated (ADULT LOW DOSE ASPIRIN) 81 mg EC tablet Take 1 tablet by mouth once daily. clonazePAM 1 mg tablet Take 2 mg by mouth twice daily as needed. cyclobenzaprine (FLEXERIL) 10 mg tablet Take 1 tablet by mouth every 8 hours as needed. FOR PAIN OR SPASMS traZODone 50 mg tablet Take 1 tablet by mouth daily at bedtime. clopidogrel (PLAVIX) 75 mg tablet Take 1 tablet by mouth once daily. metoprolol tartrate 25 mg ORAL tablet Take 1 tablet by mouth once daily. albuterol 90 mcg/Actuation INHALATION Aero Inhale one(1) - two(2) puffs four(4) times a day as needed for wheezing and shortness of breath. nitroglycerin sublingual (NITROSTAT) 0.4 mg SUBLINGUAL Subl prn chest pain omeprazole (PRILOSEC) 20 mg ORAL CpDR Take one(1) capsule daily. 25/iron fum/folic/dha (-1 ORAL) Take by mouth. rosuvastatin (CRESTOR) 5 mg tablet Take 5 mg by mouth once daily. oxyCODONE-acetaminophe n (PERCOCET) 5-325 mg tablet Take 1 tablet by mouth every 8 hours as needed. cholecalciferol (VITAMIN D-3) 5,000 unit tab Take 5,000 Units by mouth once daily. fentaNYL (DURAGESIC) 75 mcg/hr Apply 1 Patch as directed every 72 hours. methylPREDNISolone (MEDROL, BERNA,) 4 mg Dose-Pack Take by mouth. As directed on package (Patient not taking: Reported on 07/18/2019 ) METOPROLOL TARTRATE, SHORT ACTING, 50 mg tablet MORPHINE SR 60 mg 12 hr tablet MORPHINE IMMEDIATE RELEASE 15 mg tablet RAMIPRIL 2.5 mg capsule HYDROCORTISONE 2.5 % lotion as needed. temazepam (RESTORIL) 15 mg cap Take by mouth at bedtime as needed. COMPOUNDED PRESCRIPTION Vitamin D 2000 unit tablet furosemide (LASIX) 40 mg tablet Take 1 tablet by mouth once daily. atorvastatin (LIPITOR) 10 mg tablet Take 1 tablet by mouth once daily. tiotropium bromide(SPIRIVA WITH HANDIHALER 18 MCG AND INHALATION CAPS) as necessary No current facility-administered medications for this visit. ALLERGIES: Atorvastatin; Contrast Dye; Naprosyn [Naproxen]; Tcn [Tetracyclines] PERSONAL HISTORY: Social History Socioeconomic History Marital status: Spouse name: Not on file Number of children: Not on file Years of education: Not on file Highest education level: Not on file Occupational History Not on file Social Needs Financial resource strain: Not on file Food insecurity: Worry: Not on file Inability: Not on file Transportation needs: Medical: Not on file Non-medical: Not on file Tobacco Use Smoking status: Current Every Day Smoker Packs/day: 0.50 Years: 33.00 Pack years: 16.5 Types: Cigarettes Quit date: 03/07/2007 Years since quittin.3 Smokeless tobacco: Never Used Tobacco comment: currently smoking 1/2 ppd Substance and Sexual Activity Alcohol use: No Drug use: No Sexual activity: Not on file Lifestyle Physical activity: Days per week: Not on file Minutes per session: Not on file Stress: Not on file Relationships Social connections: Talks on phone: Not on file Gets together: Not on file Attends nondenominational service: Not on file Active member of club or organization: Not on file Attends meetings of clubs or organizations: Not on file Relationship status: Not on file Intimate partner violence: Fear of current or ex partner: Not on file Emotionally abused: Not on file Physically abused: Not on file Forced sexual activity: Not on file Other Topics Concerns: Service: No Blood Transfusions: No Caffeine Concern: No Occupational Exposure: No Hobby Hazards: No Sleep Concern: No Stress Concern: No Weight Concern: No Special Diet: No Back Care: No Exercise: No Bike Helmet: No Seat Belt: No Self-Exams: No Social History Narrative Not on file FAMILY HISTORY: FAMILY HISTORY Problem Relation Age of Onset - Cancer Mother a. age 73: lung and pancreatic - Cancer Father a. age 76: skin and colon alive - other (PVD) Father s/p leg surgery - Multiple Sclerosis Sister REVIEW OF SYMPTOMS: The review of systems data was entered by the nurse and reviewed by me Nursing Notes: Merle Vera LPN 07/18/2019 8:57 AM Signed REVIEW OF SYSTEMS: General: The patient denies fatigue, denies weight loss, denies weight gain, denies feeling hot, and denies feelings of cold. Eyes: The patient denies glaucoma, NOTES eye injury/surgery, wears glasses or contacts. Ear/Nose/Throat: The patient denies allergies, denies hayfever, denies ear infections, and denies bloody noses. Cardiovascular: The patient NOTES chest pain, NOTES heart disease, denies high blood pressure,NOTES cardiac stent, NOTES prior heart attack, NOTES irregular heart beat, denies high cholesterol, denies poor circulation, denies heart failure, other cardiac issues, denies claudication, denies cold feet, denies peripheral arterial stent. Respiratory: The patient denies tuberculosis, denies pneumonia, denies frequent cough, denies pulmonary embolism, denies shortness of breath, and denies coughing up blood. Gastrointestinal: The patient denies difficulty swallowing, NOTES acid reflux, denies ulcers, denies vomiting, denies jaundice/hepatitis, NOTES gallbladder problems, denies black or tarry stools, NOTES hemorrhoids, denies bleeding from rectum, denies diverticulitis, denies constipation, denies diarrhea, denies loss of stool control, and denies hernias. Kidney/Bladder: The patient denies kidney stones, denies urine infections, and denies bloody urine. Skin: The patient NOTES a history of skin cancer, denies bleeding/changing moles, and denies a history of skin rash. Neurologic: The patient denies a history of epilepsy/convulsions, denies headaches, denies head/spinal injuries, and denies stroke/TIA. Psychiatric: The patient denies psychiatric medications, NOTES depression, and denies voices, denies substance abuse. Endocrine: The patient denies thyroid disorders, denies diabetes, and denies hormonal problems. Hematologic: The patient NOTES a history of bruising, NOTES bleeding, and denies anemia, denies blood clots. Infections: The patient denies a history of measles and mumps, denies rheumatic fever, and denies sexually transmitted diseases. Musculoskeletal: The patient NOTES back pain/injury, denies back problems, denies sciatica, denies knee/foot trouble, NOTES arthritis, or denies gout. When was patient's last Mammogram screening? 03/2016 Last Colonoscopy: 02/2013 Celine Vera LPN I have confirmed and edited as necessary, the PFSH and ROS obtained by others. PHYSICAL EXAMINATION: General: The patient is 64 year old female, well nourished, well hydrated in no acute distress. The patient is oriented to time, place, and person. VITALS: Blood pressure 138/70, pulse 75, temperature 36.5 ?C (97.7 ?F), temperature source Temporal Artery, resp. rate 14, height 162.6 cm (5' 4), weight 65.8 kg (145 lb), SpO2 97 %. Body mass index is 24.89 kg/m?. HEENT: Normal cephalic, ataumatic, pupils are equally round, sclera are anicteric, mucous membranes are moist, oropharynx is clear. Neck has no masses, asymmetry or lymphadenopathy. Respiratory: Clear to auscultation and percussion. Normal respiratory excursion and pattern. Cardiac: Examination is regular rate and rhythm. Normal S1/S2 Abdominal exam: Soft, nontender, with no palpable masses. No hepatosplenomegaly. No palpable hernias. Extremities: no clubbing, cyanosis or edema. No adenopathy. LABORATORY VALUES: As Noted RADIOLOGIC STUDIES: As Noted Assessment IMPRESSION: heme positive stool, nausea, family history of colon cancer PLAN: I have reviewed my findings with the surgeon. Will plan for upper and lower endoscopy. We discussed the risks and benefits of the planned endoscopy. I have informed the patient that complications can occur including failure to complete the endoscopy and perforation. The patient had the opportunity to ask questions concerning the planned endoscopy. My staff has also explained the procedure to the patient in understandable terms and has given the patient printed material concerning the procedure. The patient freely consents to surgery. I plan to use Golytely bowel preparation. Patient may continue all routine medications including her anticoagulation for endoscopy The patient has medical comorbidities for which we will plan for the procedure to be performed under [facility]. Request for cardiac clearance faxed to [facility] Diagnoses: (R19.5) Heme positive stool (primary encounter diagnosis) (Z80.0) Family history of colon cancer (R11.0) Nausea (Z85.820) History of melanoma (Z95.1) S/P CABG (coronary artery bypass graft) Kaylyn Degroot PA-C Referring Provider: RADHA ODOM [[id number]] Allergies As of Date: 07/18/2019 Noted Allergy Reaction ATORVASTATIN 10/01/2018 5 - Intolerance CONTRAST DYE 07/17/2007 4 - Hives NAPROSYN (NAPROXEN) 11/06/2008 8 - GI Upset TCN (TETRACYCLINES) 07/17/2007 4 - Hives Date Reviewed: 07/18/2019 Reviewed by: Kaylyn Degroot - Fully Assessed Reason for Visit: colon consult [Other] Primary Visit Diagnosis:Heme positive stool [R19.5] Other Visit Diagnoses:Family history of colon cancer [Z80.0] Nausea [R11.0] History of melanoma [Z85.820] S/P CABG (coronary artery bypass graft) [Z95.1] Order(s):peg 3350-Electrolytes (GOLYTELY) 236-22.74-6.74 -5.86 gram suspensionTake 4,000 mL by mouth one time only for 1 dose.Disp: 1 BottleRfl: 0 Prescriptions as of 07/18/2019 Sig: PROMETHAZINE 12.5 MG TABLET Take 12.5 mg by mouth every 6* COQ10 (LIPOSOMAL UBIQUINOL) O* Take by mouth. DICLOFENAC 1 % TOPICAL GEL Apply to affected area four t* ISOSORBIDE DINITRATE 30 MG TA* Take 30 mg by mouth four time* HYDROMORPHONE 2 MG TABLET Take 2 mg by mouth every 3 ho* FERROUS SULFATE 325 MG (65 MG* Take 325 mg by mouth daily wi* CYANOCOBALAMIN (VIT B-12) 1,0* by INJECTION(UNSPECIFIED PARE* LIDOCAINE 5 % TOPICAL PATCH Apply 1 Patch as directed katie* LISINOPRIL ORAL Take 2.5 mg by mouth. MELOXICAM 15 MG TABLET Take 15 mg by mouth once rachele* PRIMIDONE 50 MG TABLET Take 50 mg by mouth four time* BUSPIRONE 5 MG TABLET Take 5 mg by mouth three time* CITALOPRAM 20 MG TABLET 40 mg once daily. CPAP daily at bedtime. ASPIRIN 81 MG TABLET,DELAYED * Take 1 tablet by mouth once d* CLONAZEPAM 1 MG TABLET Take 2 mg by mouth twice rachele* CYCLOBENZAPRINE 10 MG TABLET Take 1 tablet by mouth every * TRAZODONE 50 MG TABLET Take 1 tablet by mouth daily * CLOPIDOGREL 75 MG TABLET Take 1 tablet by mouth once d* METOPROLOL TARTRATE 25 MG TAB* Take 1 tablet by mouth once d* ALBUTEROL 90 MCG/ACTUATION AE* Inhale one(1) - two(2) puffs * NITROSTAT 0.4 MG SUBLINGUAL T* prn chest pain PRILOSEC 20 MG CAPSULE,DELAYE* Take one(1) capsule daily. PEG 3350-ELECTROLYTES 236 GRA* Take 4,000 mL by mouth one ti* -1 ORAL Take by mouth. ROSUVASTATIN 5 MG TABLET Take 5 mg by mouth once daily. OXYCODONE-ACETAMINOPHE N 5 MG-* Take 1 tablet by mouth every * CHOLECALCIFEROL (VITAMIN D3) * Take 5,000 Units by mouth onc* FENTANYL 75 MCG/HR TRANSDERMA* Apply 1 Patch as directed katie* METHYLPREDNISOLONE 4 MG TABLE* Take by mouth. As directed on* Patient not taking: Reported on 07/18/2019 METOPROLOL TARTRATE 50 MG TAB* MORPHINE ER 60 MG TABLET,EXTE* MORPHINE 15 MG IMMEDIATE RELE* RAMIPRIL 2.5 MG CAPSULE HYDROCORTISONE 2.5 % LOTION as needed. TEMAZEPAM 15 MG CAPSULE Take by mouth at bedtime as * COMPOUNDED PRESCRIPTION Vitamin D 2000 unit tablet FUROSEMIDE 40 MG TABLET Take 1 tablet by mouth once d* ATORVASTATIN 10 MG TABLET Take 1 tablet by mouth once d* SPIRIVA WITH HANDIHALER 18 MC* as necessary Medication notes this encounter CLOPIDOGREL 75 MG TABLET >> Merle Vera LPN 07/18/2019 8:47 AM >> MERLE VERA LPN TueJul 18, 2019 8:47 AM METOPROLOL TARTRATE 25 MG TABLET >> Merle Vera LPN 07/18/2019 8:47 AM >> MERLE VERA LPN TueJul 18, 2019 8:47 AM ALBUTEROL 90 MCG/ACTUATION AEROSOL INHALER >> Merle Vera LPN 07/18/2019 8:49 AM >> MERLE VERA LPN TueJul 18, 2019 8:49 AM HYDROCORTISONE 2.5 % LOTION >> Merle Vera LPN 07/18/2019 8:48 AM >> MERLE VERA LPN TueJul 18, 2019 8:48 AM Problem List As Of Date 07/18/2019 Noted Resolved Peripheral vascular disease, unspecified [I73.9]INVALID FOR* More... MELANOMA ARM [C43.60] INVALID FOR* ESOPHAGEAL REFLUX [K21.9] More... CHRONIC AIRWAY OBSTRUCTION NEC [J44.9] PMH - PAST MEDICAL HISTORY OF More... Cor athrscl-uns vessel [I25.10] More... ADJUSTMENT DISORDER WITH DEPRESSED MOOD [F43.21] GANGLION OF JOINT [M67.40] INVALID FOR* HTN (hypertension) [I10] INVALID FOR* Hyperlipidemia [E78.5] INVALID FOR* Abnormal LFTs [R94.5] INVALID FOR* Mitral valve insufficiency [I08.0] INVALID FOR* More... Tobacco use disorder [F17.200] INVALID FOR* Angina INVALID FOR* Heart palpitations [R00.2] INVALID FOR* More... Visit Notes: >> Merle Vera LPN TueJul 18, 2019 8:55 AM Status: Signed REVIEW OF SYSTEMS: General: The patient denies fatigue, denies weight loss, denies weight gain, denies feeling hot, and denies feelings of cold. Eyes: The patient denies glaucoma, NOTES eye injury/surgery, wears glasses or contacts. Ear/Nose/Throat: The patient denies allergies, denies hayfever, denies ear infections, and denies bloody noses. Cardiovascular: The patient NOTES chest pain, NOTES heart disease, denies high blood pressure,NOTES cardiac stent, NOTES prior heart attack, NOTES irregular heart beat, denies high cholesterol, denies poor circulation, denies heart failure, other cardiac issues, denies claudication, denies cold feet, denies peripheral arterial stent. Respiratory: The patient denies tuberculosis, denies pneumonia, denies frequent cough, denies pulmonary embolism, denies shortness of breath, and denies coughing up blood. Gastrointestinal: The patient denies difficulty swallowing, NOTES acid reflux, denies ulcers, denies vomiting, denies jaundice/hepatitis, NOTES gallbladder problems, denies black or tarry stools, NOTES hemorrhoids, denies bleeding from rectum, denies diverticulitis, denies constipation, denies diarrhea, denies loss of stool control, and denies hernias. Kidney/Bladder: The patient denies kidney stones, denies urine infections, and denies bloody urine. Skin: The patient NOTES a history of skin cancer, denies bleeding/changing moles, and denies a history of skin rash. Neurologic: The patient denies a history of epilepsy/convulsions, denies headaches, denies head/spinal injuries, and denies stroke/TIA. Psychiatric: The patient denies psychiatric medications, NOTES depression, and denies voices, denies substance abuse. Endocrine: The patient denies thyroid disorders, denies diabetes, and denies hormonal problems. Hematologic: The patient NOTES a history of bruising, NOTES bleeding, and denies anemia, denies blood clots. Infections: The patient denies a history of measles and mumps, denies rheumatic fever, and denies sexually transmitted diseases. Musculoskeletal: The patient NOTES back pain/injury, denies back problems, denies sciatica, denies knee/foot trouble, NOTES arthritis, or denies gout. When was patient's last Mammogram screening? 03/2016 Last Colonoscopy: 02/2013 Celine Vera MAILING SECTION CLERK Prescriptions ordered this encounter Disp Refills Start End PEG 3350-ELECTROLYTES 236 GRAM-22.74* 1 Jaime* 0 07/18/2019 07/18/2019 Route: ORAL Sig: Take 4,000 mL by mouth one time only for 1 dose. Encounter Status:Closed by KAYLYN DEGROOT PA-C on 07/18/19 Normal [facility] PROGRESSon 07-18-2019 PROGRESS HNO ID: [id number] Author: Kaylyn Degroot Service: ? Author Type: Physician Mixer Machine Feeder Type: Progress Notes Filed: 07/18/2019 3:35 PM Note Text: HISTORY AND PHYSICAL Haleigh Almeida 1955 REFERRING PHYSICIAN: Radha Odom, * CHIEF COMPLAINT: colon consult HPI: The patient is a 64 year old female referred for endoscopy. Haleigh notes she had an iFOBT done through her insurance which was positive for occult blood. She was recently evaluated by her primary care physician and is referred here for endoscopy. Patient denies any change in bowel habits, weight changes, visible blood in stools, black tarry stools or abdominal pain. NOTES father had colon cancer. The patient notes some recent nausea. Haleigh has undergone prior endoscopy, most recently in February [address] Berger with no concerning findings at that time. Patient was recently hospitalized at [facility] in June 2019 with complaints of chest pain and dyspnea on exertion. Patient has a prior history of coronary artery disease and is s/p CABG/PCI. Patient had EKG which showed no ST changes, and had negative troponins. Cardiology was consulted during her hospitalization and she had a heart cath 06/21/19, did not require further intervention at that time. She was noted to have an elevated d-dimer during her hospitalization, Had a VQ scan which was normal. She was discharged and instructed to follow up with primary care and cardiology. Patient follows with Dr. Odom for her chronic medical conditions. Patient denies any further complaints since her hospital discharge. She has a cardiology appointment scheduled for later today. She is maintained on Plavix and aspirin. Other past medical history significant for melanoma on arm, prior history of GERD, sleep apnea, mitral valve insufficiency, peripheral vascular disease. Patient denies problems with sedation in the past. PAST MEDICAL HISTORY Diagnosis Date - Adjustment disorder with depressed mood - Chronic airway obstruction, not elsewhere classified - Coronary artery disease - Coronary atherosclerosis of unspecified type of vessel, port gamble or graft - Dyslipidemia - Esophageal reflux Gastroesophageal reflux - Malignant melanoma of skin of upper limb, including shoulder (HCC) 2007 right arm - Obstructive sleep apnea - Peripheral vascular disease (HCC) - PMH - PAST MEDICAL HISTORY OF low back DDD- in pain management PAST SURGICAL HISTORY Procedure Laterality Date - APPENDECTOMY - BLADDER SURGERY HX - CABG, ARTERY-VEIN, THREE 2003 CABG, three grafts - COLONOSCOPY W/BX 02-16-13 needs repeat in 5 years, high risk d/t family history - CORONARY ARTERY BYPASS GRAFT triple bypass 2006. hx of 7 heart stents - last placed 05/18 - EGD W/O OR W/BRUSH/WASH 04/21/15 EGD [facility] - HEMORRHOID;BAND LIGAT, SNGL/MUL Hemorrhoidectomy - INT REPAIR SCALP,JEISON,TRUNK 2.6-7.5CM 08-07-08 RIGHT UPPER ARM - LAPAROSCOPIC CHOLEYCYSTECTOMY 1996 Cholecystectomy, lap - MAL LESION TRUNK,ARM,LEG 2.1-3.0 CM 08-07-08 RIGHT UPPER ARM - PART REMOVAL COLON W ANASTOMOSIS 1995 Hemicolectomy/OBSTRUCT ION - PAST SURGICAL HISTORY OF 1990s NECK SURGERY WITH PLATE - PERCUTANEOUS CORONARY INTERVENTION - REM LESION FACE,EAR,EYE 2.1-3 CM 03-05-13 - STENT PLACEMENT cardiac stent x7. last 08/2012 - TOTAL ABDOM HYSTERECTOMY 1983 Hysterectomy, AN - TRANSCATH STENT ADDN VESSEL,PERCUT Transcath stent addn vessel percut - UVULECTOMY EXCISION OF UVULA Current Outpatient Medications: promethazine (PHENERGAN) 12.5 mg tablet Take 12.5 mg by mouth every 6 hours as needed. COQ10, LIPOSOMAL UBIQUINOL, ORAL Take by mouth. diclofenac sodium (VOLTAREN) 1 % topical gel Apply to affected area four times daily. isosorbide dinitrate (ISORDIL, SORBITRATE) 30 mg tablet Take 30 mg by mouth four times daily. HYDROmorphone (DILAUDID) 2 mg tablet Take 2 mg by mouth every 3 hours as needed. ferrous sulfate 325 mg (65 mg iron) EC tablet Take 325 mg by mouth daily with breakfast. cyanocobalamin, vitamin B-12, 1,000 mcg/mL kit by INJECTION(UNSPECIFIED PARENTERAL ROUTES) route every 2 weeks. lidocaine (LIDODERM) 5 % Apply 1 Patch as directed every 24 hours. LISINOPRIL ORAL Take 2.5 mg by mouth. meloxicam (MOBIC) 15 mg tablet Take 15 mg by mouth once daily. primidone (MYSOLINE) 50 mg tablet Take 50 mg by mouth four times daily. busPIRone (BUSPAR) 5 mg tablet Take 5 mg by mouth three times daily. CITALOPRAM 20 mg tablet 40 mg once daily. CPAP daily at bedtime. aspirin, enteric coated (ADULT LOW DOSE ASPIRIN) 81 mg EC tablet Take 1 tablet by mouth once daily. clonazePAM 1 mg tablet Take 2 mg by mouth twice daily as needed. cyclobenzaprine (FLEXERIL) 10 mg tablet Take 1 tablet by mouth every 8 hours as needed. FOR PAIN OR SPASMS traZODone 50 mg tablet Take 1 tablet by mouth daily at bedtime. clopidogrel (PLAVIX) 75 mg tablet Take 1 tablet by mouth once daily. metoprolol tartrate 25 mg ORAL tablet Take 1 tablet by mouth once daily. albuterol 90 mcg/Actuation INHALATION Aero Inhale one(1) - two(2) puffs four(4) times a day as needed for wheezing and shortness of breath. nitroglycerin sublingual (NITROSTAT) 0.4 mg SUBLINGUAL Subl prn chest pain omeprazole (PRILOSEC) 20 mg ORAL CpDR Take one(1) capsule daily. 25/iron fum/folic/dha (-1 ORAL) Take by mouth. rosuvastatin (CRESTOR) 5 mg tablet Take 5 mg by mouth once daily. oxyCODONE-acetaminophe n (PERCOCET) 5-325 mg tablet Take 1 tablet by mouth every 8 hours as needed. cholecalciferol (VITAMIN D-3) 5,000 unit tab Take 5,000 Units by mouth once daily. fentaNYL (DURAGESIC) 75 mcg/hr Apply 1 Patch as directed every 72 hours. methylPREDNISolone (MEDROL, BERNA,) 4 mg Dose-Pack Take by mouth. As directed on package (Patient not taking: Reported on 07/18/2019 ) METOPROLOL TARTRATE, SHORT ACTING, 50 mg tablet MORPHINE SR 60 mg 12 hr tablet MORPHINE IMMEDIATE RELEASE 15 mg tablet RAMIPRIL 2.5 mg capsule HYDROCORTISONE 2.5 % lotion as needed. temazepam (RESTORIL) 15 mg cap Take by mouth at bedtime as needed. COMPOUNDED PRESCRIPTION Vitamin D 2000 unit tablet furosemide (LASIX) 40 mg tablet Take 1 tablet by mouth once daily. atorvastatin (LIPITOR) 10 mg tablet Take 1 tablet by mouth once daily. tiotropium bromide(SPIRIVA WITH HANDIHALER 18 MCG AND INHALATION CAPS) as necessary No current facility-administered medications for this visit. ALLERGIES: Atorvastatin; Contrast Dye; Naprosyn [Naproxen]; Tcn [Tetracyclines] PERSONAL HISTORY: Social History Socioeconomic History Marital status: Spouse name: Not on file Number of children: Not on file Years of education: Not on file Highest education level: Not on file Occupational History Not on file Social Needs Financial resource strain: Not on file Food insecurity: Worry: Not on file Inability: Not on file Transportation needs: Medical: Not on file Non-medical: Not on file Tobacco Use Smoking status: Current Every Day Smoker Packs/day: 0.50 Years: 33.00 Pack years: 16.5 Types: Cigarettes Quit date: 03/07/2007 Years since quittin.3 Smokeless tobacco: Never Used Tobacco comment: currently smoking 1/2 ppd Substance and Sexual Activity Alcohol use: No Drug use: No Sexual activity: Not on file Lifestyle Physical activity: Days per week: Not on file Minutes per session: Not on file Stress: Not on file Relationships Social connections: Talks on phone: Not on file Gets together: Not on file Attends nondenominational service: Not on file Active member of club or organization: Not on file Attends meetings of clubs or organizations: Not on file Relationship status: Not on file Intimate partner violence: Fear of current or ex partner: Not on file Emotionally abused: Not on file Physically abused: Not on file Forced sexual activity: Not on file Other Topics Concerns: Service: No Blood Transfusions: No Caffeine Concern: No Occupational Exposure: No Hobby Hazards: No Sleep Concern: No Stress Concern: No Weight Concern: No Special Diet: No Back Care: No Exercise: No Bike Helmet: No Seat Belt: No Self-Exams: No Social History Narrative Not on file FAMILY HISTORY: FAMILY HISTORY Problem Relation Age of Onset - Cancer Mother a. age 73: lung and pancreatic - Cancer Father a. age 76: skin and colon alive - other (PVD) Father s/p leg surgery - Multiple Sclerosis Sister REVIEW OF SYMPTOMS: The review of systems data was entered by the nurse and reviewed by nm Nursing Notes: Merle Vera LPN 07/18/2019 8:57 AM Signed REVIEW OF SYSTEMS: General: The patient denies fatigue, denies weight loss, denies weight gain, denies feeling hot, and denies feelings of cold. Eyes: The patient denies glaucoma, NOTES eye injury/surgery, wears glasses or contacts. Ear/Nose/Throat: The patient denies allergies, denies hayfever, denies ear infections, and denies bloody noses. Cardiovascular: The patient NOTES chest pain, NOTES heart disease, denies high blood pressure,NOTES cardiac stent, NOTES prior heart attack, NOTES irregular heart beat, denies high cholesterol, denies poor circulation, denies heart failure, other cardiac issues, denies claudication, denies cold feet, denies peripheral arterial stent. Respiratory: The patient denies tuberculosis, denies pneumonia, denies frequent cough, denies pulmonary embolism, denies shortness of breath, and denies coughing up blood. Gastrointestinal: The patient denies difficulty swallowing, NOTES acid reflux, denies ulcers, denies vomiting, denies jaundice/hepatitis, NOTES gallbladder problems, denies black or tarry stools, NOTES hemorrhoids, denies bleeding from rectum, denies diverticulitis, denies constipation, denies diarrhea, denies loss of stool control, and denies hernias. Kidney/Bladder: The patient denies kidney stones, denies urine infections, and denies bloody urine. Skin: The patient NOTES a history of skin cancer, denies bleeding/changing moles, and denies a history of skin rash. Neurologic: The patient denies a history of epilepsy/convulsions, denies headaches, denies head/spinal injuries, and denies stroke/TIA. Psychiatric: The patient denies psychiatric medications, NOTES depression, and denies voices, denies substance abuse. Endocrine: The patient denies thyroid disorders, denies diabetes, and denies hormonal problems. Hematologic: The patient NOTES a history of bruising, NOTES bleeding, and denies anemia, denies blood clots. Infections: The patient denies a history of measles and mumps, denies rheumatic fever, and denies sexually transmitted diseases. Musculoskeletal: The patient NOTES back pain/injury, denies back problems, denies sciatica, denies knee/foot trouble, NOTES arthritis, or denies gout. When was patient's last Mammogram screening? 03/2016 Last Colonoscopy: 02/2013 Celine Vera LPN I have confirmed and edited as necessary, the PFSH and ROS obtained by others. PHYSICAL EXAMINATION: General: The patient is 64 year old female, well nourished, well hydrated in no acute distress. The patient is oriented to time, place, and person. VITALS: Blood pressure 138/70, pulse 75, temperature 36.5 ?C (97.7 ?F), temperature source Temporal Artery, resp. rate 14, height 162.6 cm (5' 4), weight 65.8 kg (145 lb), SpO2 97 %. Body mass index is 24.89 kg/m?. HEENT: Normal cephalic, ataumatic, pupils are equally round, sclera are anicteric, mucous membranes are moist, oropharynx is clear. Neck has no masses, asymmetry or lymphadenopathy. Respiratory: Clear to auscultation and percussion. Normal respiratory excursion and pattern. Cardiac: Examination is regular rate and rhythm. Normal S1/S2 Abdominal exam: Soft, nontender, with no palpable masses. No hepatosplenomegaly. No palpable hernias. Extremities: no clubbing, cyanosis or edema. No adenopathy. LABORATORY VALUES: As Noted RADIOLOGIC STUDIES: As Noted Assessment IMPRESSION: heme positive stool, nausea, family history of colon cancer PLAN: I have reviewed my findings with the surgeon. Will plan for upper and lower endoscopy. We discussed the risks and benefits of the planned endoscopy. I have informed the patient that complications can occur including failure to complete the endoscopy and perforation. The patient had the opportunity to ask questions concerning the planned endoscopy. My staff has also explained the procedure to the patient in understandable terms and has given the patient printed material concerning the procedure. The patient freely consents to surgery. I plan to use Golytely bowel preparation. Patient may continue all routine medications including her anticoagulation for endoscopy The patient has medical comorbidities for which we will plan for the procedure to be performed under [facility]. Request for cardiac clearance faxed to [facility] Diagnoses: (R19.5) Heme positive stool (primary encounter diagnosis) (Z80.0) Family history of colon cancer (R11.0) Nausea (Z85.820) History of melanoma (Z95.1) S/P CABG (coronary artery bypass graft) Kaylyn Degroot PA-C Normal [facility] XR FLUORO GUIDANCE FOR THERA PY INJECTIONon 05-17-2019 XR FLUORO GUIDANCE FOR THERAPY INJECTION ORIGINAL Images acquired, not reported on this accession number. Normal [facility] (DE) ED NOTEon 01-05-2019 ED NOTE HNO ID: [id number] Author: Glenn HurtadoRn) MARIA TERESA Arshad Service: Nursing Author Type: Registered Nurse Type: ED Notes Filed: 01/05/2019 7:08 PM Note Text: Clean catch urine specimen obtained and sent. Normal [facility] ED NOTE HNO ID: [id number] Author: Sandhya HurtadoRn) MARIA TERESA Whitley Service: Emergency Medicine Author Type: Registered Nurse Type: ED Notes Filed: 01/05/2019 6:35 PM Note Text: Pt has history of chronic back problems c/o increased back pain over past few days, no known injury Normal [facility] ED PROV NOTEon 01-05-2019 ED PROV NOTE HNO ID: [id number] Author: Radha Mahan MD Service: Emergency Medicine Author Type: Physician Type: ED Provider Notes Filed: 01/06/2019 6:39 AM Note Text: ED Provider Note Patient Name: Haleigh Almeida SERVICE DATE: 01/05/19 History Patient presents with: Back Pain Pt presents for increasing back pain with history of the same without new injury or trauma No bowel or bladder incontinence Been to the ED before for the same Home pain meds are not working Fall just before , and no xrays, also recent pain stimulator in back Back Pain Location: Lumbar spine Quality: Stiffness and cramping Radiates to: Does not radiate Pain severity: Moderate Onset quality: Gradual Timing: Intermittent Progression: Waxing and waning Chronicity: Recurrent Context: recent injury Context: not MCA, not MVA and not occupational injury Associated symptoms: no abdominal pain, no dysuria, no fever, no numbness and no paresthesias PAST MEDICAL HISTORY Diagnosis Date - Adjustment disorder with depressed mood - Chronic airway obstruction, not elsewhere classified - Coronary artery disease - Coronary atherosclerosis of unspecified type of vessel, port gamble or graft - Dyslipidemia - Esophageal reflux Gastroesophageal reflux - Malignant melanoma of skin of upper limb, including shoulder (HCC) 2007 right arm - Obstructive sleep apnea - Peripheral vascular disease (HCC) - PMH - PAST MEDICAL HISTORY OF low back DDD- in pain management PAST SURGICAL HISTORY Procedure Laterality Date - APPENDECTOMY - BLADDER SURGERY HX - CABG, ARTERY-VEIN, THREE 2003 CABG, three grafts - COLONOSCOPY W/BX 02-16-13 needs repeat in 5 years, high risk d/t family history - CORONARY ARTERY BYPASS GRAFT triple bypass 2006. hx of 7 heart stents - last placed 05/18 - EGD W/O OR W/BRUSH/WASH 04/21/15 EGD inpt [facility] - HEMORRHOID;BAND LIGAT, SNGL/MUL Hemorrhoidectomy - INT REPAIR SCALP,JEISON,TRUNK 2.6-7.5CM 08-07-08 RIGHT UPPER ARM - LAPAROSCOPIC CHOLEYCYSTECTOMY 1996 Cholecystectomy, lap - MAL LESION TRUNK,ARM,LEG 2.1-3.0 CM 08-07-08 RIGHT UPPER ARM - PART REMOVAL COLON W ANASTOMOSIS 1995 Hemicolectomy/OBSTRUCT ION - PAST SURGICAL HISTORY OF 1990s NECK SURGERY WITH PLATE - PERCUTANEOUS CORONARY INTERVENTION - REM LESION FACE,EAR,EYE 2.1-3 CM 03-05-13 - STENT PLACEMENT cardiac stent x7. last 08/2012 - TOTAL ABDOM HYSTERECTOMY 1984 Hysterectomy, AN - TRANSCATH STENT ADDN VESSEL,PERCUT Transcath stent addn vessel percut - UVULECTOMY EXCISION OF UVULA FAMILY HISTORY Problem Relation Age of Onset - Cancer Mother a. age 73: lung and pancreatic - Cancer Father a. age 76: skin and colon alive - Multiple Sclerosis Sister - other (PVD [Other]) Father s/p leg surgery Social History Social History Main Topics - Smoking status: Current Every Day Smoker Packs/day: 0.50 Years: 33.00 Types: Cigarettes Last attempt to quit: 03/07/2007 - Smokeless tobacco: Never Used Comment: currently smoking 1/2 ppd - Alcohol use No - Drug use: No - Sexual activity: Not on file ALLERGIES Allergen Reactions - Contrast Dye Hives - Naprosyn [Naproxen] GI Upset - Tcn [Tetracyclines] Hives Review of Systems Constitutional: Negative for fever. HENT: Negative. Respiratory: Negative. Cardiovascular: Negative. Gastrointestinal: Negative for abdominal distention and abdominal pain. Genitourinary: Negative for difficulty urinating, dysuria and hematuria. Musculoskeletal: Positive for back pain. Neurological: Negative for numbness and paresthesias. All other systems reviewed and are negative. Physical Exam BP 129/73 Pulse 80 Temp (Src) 97.6 (Temporal Artery) Resp 16 Ht 5' 4 (1.63m) Wt 146 lb (66.2kg) SpO2 100% BMI 25.05 kg/(m2). Physical Exam Constitutional: She is oriented to person, place, and time. She appears well-developed and well-nourished. HENT: Head: Normocephalic and atraumatic. Eyes: Right eye exhibits no discharge. Left eye exhibits no discharge. Pulmonary/Chest: No respiratory distress. Abdominal: She exhibits no distension. There is no tenderness. There is no rebound. No hernia. Musculoskeletal: She exhibits tenderness. She exhibits no edema or deformity. Diffuse paraspinal lumbar region tednerness, and SI joint region tenderness Neurological: She is alert and oriented to person, place, and time. Bilateral straight leg raise + Intact sensation to the bilateral lower extremities No leg edema Able to walk with non-ataxic gait Intact diya-rectal sensation Skin: No rash noted. Right hip dried scabbed over incision site from stimulator placement, no suggestion of infection, no erythema, no fluctuance Psychiatric: She has a normal mood and affect. Her behavior is normal. Judgment and thought content normal. Nursing note and vitals reviewed. Diagnostic Testing ED Labs Ordered and Reviewed URINALYSIS WITH MICROSCOPIC (EU,FV,HL,BALWINDER,MM,SP) - Abnormal; Notable for the following: Result Value Ref Range Leukocytes Esterase TRACE (*) Negative All other components within normal limits Procedures ED Course / Clinical Impression Clinical Impressions as of Jan 06 59 Chronic bilateral low back pain with bilateral sciatica MDM / Disposition / Plan 63 year old female pt with PMH of chronic back pain presents with increasing back pain without injury or trauma. Denies back pain red flags, and none present on exam. Pt with recent stimulator placement, and history of fall with back pain in October. Pt was seen however never reports being seen with radiographs of her back since injury, and it has been long time since xrays. Secondary to the above decision is made for imaging. Xray without acute findings. Pt improved with meds in the ED. DC home w outpt f/u, and RTER symptoms discussed. Back pain red flags discussed, along with f/u. Disposition The patient was discharged. Counseled patient regarding radiology results. As well as the need for follow-up. Discharged home with verbal and written instructions. They were instructed to return as needed for persistent or worsening symptoms or any new concerns. Condition at disposition is improved. SIGNATURE: MD Radha Cooper MD 01/06/19 0059 Radha Mahan MD 01/06/19 0100 Radha Mahan MD 01/06/19 0639 Normal [facility] Urinalysis Routineon 019 Appearance Nom (U) CLEAR Normal [facility] Comment on above: Performed By: #### L URIN #### [address] [address] Bilirubin Urine Negative Normal Negative [facility] Comment on above: Performed By: #### L URIN #### [address] [address] Color Nom (U) YELLOW Normal [facility] Comment on above: Performed By: #### L URIN #### [facility] [address] [place], [place] [address] Ep Cells Urine 0-2 Normal 0-5 [facility] Comment on above: Performed By: #### L URIN #### [facility] [address] [place] [address] Glucose Ql (U) Negative Normal Negative [facility] Comment on above: Performed By: #### L URIN #### [facility] [address] [place] [address] Hemoglobin,Urine Negative Normal Negative [facility] Comment on above: Performed By: #### L URIN #### [facility] [address] [place] [address] Ketone Urine Negative Normal Negative [facility] Comment on above: Performed By: #### L URIN #### [place] [address] Leukocytes Esterase TRACE Abnormal Negative [facility] Comment on above: Performed By: #### L URIN #### [facility] [address] [place] [address] Nitrites Urine Negative Normal Negative [facility] Comment on above: Performed By: #### L URIN #### [facility] [address] [place] [address] pH (U) 5.5 [pH] Normal 5.0-8.0 [facility] Comment on above: Performed By: #### L URIN #### [place] [address] Protein mass conc (U) Negative Normal Negative [facility] Comment on above: Performed By: #### L URIN #### [place] [address] RBC LM.HPF #/area (Urine sed) NONE Normal 0-3 [facility] Comment on above: Performed By: #### L URIN #### [facility] [address] [place] [address] Specific [place], Ur <=1.005 Normal 1.005-1.030 [facility] Comment on above: Performed By: #### L URIN #### [facility] [address] [place], [place] [address] Urobilinogen,Ur 0.2 EU/dL Normal 0.0-1.0 [facility] Comment on above: Performed By: #### L URIN #### [facility] [address] [place], [place] [address] WBC LM.HPF #/area (Urine sed) 0-2 Normal 0-5 [facility] Comment on above: Performed By: #### L URIN #### [facility] [address] [place], [place] [address] LUMBOSACRAL SPINE 2 OR 3 VIE WSon 02-17-2018 LUMBOSACRAL SPINE 2 OR 3 VIEWS Performed at [facility] APPROVED BY: Gagan Cuba MD EXAMINATION: LUMBAR SPINE X-RAYS EXAM DATE: 02/17/2018 14:55. TECHNIQUE: AP, lateral and lateral coned-down L5-S1 views of the lumbar spine were obtained. HISTORY: Fall, low back pain. COMPARISON: None available. FINDINGS: Decreased bone density. There is no acute fracture or subluxation. The vertebral bodies are normal in height and alignment. Mild multilevel degenerative disc space narrowing. No pars defects are evident. Sacroiliac joints are unremarkable. Aortoiliac vascular calcifications are noted. Cholecystectomy. IMPRESSION: No acute fracture or subluxation. Mild degenerative changes. Decreased bone density. Normal [facility] Vital Signs Date Time Vital Sign Value Performing Clinician Facility 06-09-2023 22:00-0400 Respiratory rate 18 /min [facility] 06-09-2023 20:00-0400 Body height 160.02 cm [facility] 06-09-2023 20:00-0400 Body mass index (BMI) [Ratio] 28.2 kg/m2 [facility] 06-09-2023 20:00-0400 Body temperature 98.3 [degF] [facility] 06-09-2023 20:00-0400 Body weight 72.3 kg [facility] 06-09-2023 20:00-0400 Diastolic blood pressure 75 mm[Hg] [facility] 06-09-2023 20:00-0400 Heart rate 91 /min [facility] 06-09-2023 20:00-0400 SaO2% (BldA) [Mass fraction] 95 % [facility] 06-09-2023 20:00-0400 Systolic blood pressure 145 mm[Hg] [facility] 08-13-2022 12:36-0400 Body height 160.[address] Phani Odom Work Phone: [facility] Work Phone: 08-13-2022 12:36-0400 Body weight 68.[address] Phani Odom Work Phone: [facility] Work Phone: 08-13-2022 12:36-0400 Heart rate 79 /min Dr. Phani Odom Work Phone: [facility] Work Phone: 08-13-2022 12:36-0400 SaO2% (BldA) [Mass fraction] 98 % Dr. Phani Odom Work Phone: [facility] Work Phone: 08-02-2022 13:50-0400 Body mass index (BMI) [Ratio] 27.3 kg/m2 Dr. Phani Odom Work Phone: [facility] Work Phone: 08-02-2022 13:50-0400 Body temperature 96.5 [degF] Dr. Phani Odom Work Phone: [facility] Work Phone: 08-02-2022 13:50-0400 Body weight 69.[address] Phani Odom Work Phone: [facility] Work Phone: 08-02-2022 13:50-0400 Diastolic blood pressure 72 mm[Hg] Dr. Phani Odom Work Phone: [facility] Work Phone: 08-02-2022 13:50-0400 Heart rate 89 /min Dr. Phani Odom Work Phone: [facility] Work Phone: 08-02-2022 13:50-0400 Respiratory rate 16 /min Dr. Phani Odom Work Phone: [facility] Work Phone: 08-02-2022 13:50-0400 SaO2% (BldA) [Mass fraction] 98 % Dr. Phani Odom Work Phone: [facility] Work Phone: 08-02-2022 13:50-0400 Systolic blood pressure 103 mm[Hg] Dr. Phani Odom Work Phone: [facility] Work Phone: 06-30-2022 13:55-0400 Body height 160.[address] Phani Odom Work Phone: [facility] Work Phone: 06-30-2022 13:55-0400 Body mass index (BMI) [Ratio] 27.3 kg/m2 Dr. Phani Odom Work Phone: [facility] Work Phone: 06-30-2022 13:55-0400 Body weight 69.[address] Phani Odom Work Phone: [facility] Work Phone: 06-30-2022 13:55-0400 Diastolic blood pressure 68 mm[Hg] Dr. Phani Odom Work Phone: [facility] Work Phone: 06-30-2022 13:55-0400 Heart rate 61 /min Dr. Phani Odom Work Phone: [facility] Work Phone: 06-30-2022 13:55-0400 Respiratory rate 16 /min Dr. Phani Odom Work Phone: [facility] Work Phone: 06-30-2022 13:55-0400 Systolic blood pressure 109 mm[Hg] Dr. Phani Odom Work Phone: [facility] Work Phone: 06-16-2022 09:02-0400 Diastolic blood pressure 87 mm[Hg] Dr. Phani Odom Work Phone: [facility] Work Phone: 06-16-2022 09:02-0400 Heart rate 76 /min Dr. Phani Odom Work Phone: [facility] Work Phone: 06-16-2022 09:02-0400 Systolic blood pressure 134 mm[Hg] Dr. Phani Odom Work Phone: [facility] Work Phone: 06-16-2022 08:58-0400 Body temperature 98.1 [degF] Dr. Phani Odom Work Phone: [facility] Work Phone: 06-16-2022 08:58-0400 Respiratory rate 18 /min Dr. Phani Odom Work Phone: [facility] Work Phone: 06-16-2022 08:58-0400 SaO2% (BldA) [Mass fraction] 100 % Dr. Phani Odom Work Phone: [facility] Work Phone: 06-16-2022 05:51-0400 Body weight 72.[address] Phani Odom Work Phone: [facility] Work Phone: 06-14-2022 17:45-0400 Body temperature 97.8 [degF] Dr. Phani Odom Work Phone: [facility] Work Phone: 06-14-2022 17:45-0400 Diastolic blood pressure 81 mm[Hg] Dr. Phani Odom Work Phone: [facility] Work Phone: 06-14-2022 17:45-0400 Heart rate 78 /min Dr. Phani Odom Work Phone: [facility] Work Phone: 06-14-2022 17:45-0400 Respiratory rate 16 /min Dr. Phani Odom Work Phone: [facility] Work Phone: 06-14-2022 17:45-0400 SaO2% (BldA) [Mass fraction] 96 % Dr. Phani Odom Work Phone: [facility] Work Phone: 06-14-2022 17:45-0400 Systolic blood pressure 133 mm[Hg] Dr. Phani Odom Work Phone: [facility] Work Phone: 06-14-2022 17:18-0400 Body height 160.[address] Phani Odom Work Phone: [facility] Work Phone: 06-14-2022 17:18-0400 Body mass index (BMI) [Ratio] 28.9 kg/m2 Dr. Phani Odom Work Phone: [facility] Work Phone: 06-14-2022 13:27-0400 Body height 160.[address] Phani Odom Work Phone: [facility] Work Phone: 06-14-2022 13:27-0400 Body mass index (BMI) [Ratio] 29.2 kg/m2 Dr. Phani Odom Work Phone: [facility] Work Phone: 06-14-2022 13:27-0400 Body weight 74.[address] Phani Odom Work Phone: [facility] Work Phone: 06-11-2022 12:53-0400 Body temperature 97.7 [degF] Dr. Phani Odom Work Phone: [facility] Work Phone: 06-11-2022 12:53-0400 Diastolic blood pressure 74 mm[Hg] Dr. Phani Odom Work Phone: [facility] Work Phone: 06-11-2022 12:53-0400 Heart rate 85 /min Dr. Phani Odom Work Phone: [facility] Work Phone: 06-11-2022 12:53-0400 Respiratory rate 18 /min Dr. Phani Odom Work Phone: [facility] Work Phone: 06-11-2022 12:53-0400 SaO2% (BldA) [Mass fraction] 100 % Dr. Phani Odom Work Phone: [facility] Work Phone: 06-11-2022 12:53-0400 Systolic blood pressure 125 mm[Hg] Dr. Phani Odom Work Phone: [facility] Work Phone: 06-11-2022 12:05-0400 Inhaled oxygen flow rate 2 L/min Dr. Phani Odom Work Phone: [facility] Work Phone: 06-11-2022 05:11-0400 Body height 160.[address] Phani Odom Work Phone: [facility] Work Phone: 06-11-2022 05:11-0400 Body mass index (BMI) [Ratio] 29 kg/m2 Dr. Phani Odom Work Phone: [facility] Work Phone: 06-11-2022 05:11-0400 Body weight 74.[address] Phani Odom Work Phone: [facility] Work Phone: 05-18-2022 08:08-0400 Body mass index (BMI) [Ratio] 28.8 kg/m2 Dr. Phani Odom Work Phone: [facility] Work Phone: 05-18-2022 08:08-0400 Body temperature 97.3 [degF] Dr. Phani Odom Work Phone: [facility] Work Phone: 05-18-2022 08:08-0400 Body weight 76.[address] Phani Odom Work Phone: [facility] Work Phone: 05-18-2022 08:08-0400 Diastolic blood pressure 52 mm[Hg] Dr. Phani Odom Work Phone: [facility] Work Phone: 05-18-2022 08:08-0400 Heart rate 85 /min Dr. Phani Odom Work Phone: [facility] Work Phone: 05-18-2022 08:08-0400 Respiratory rate 16 /min Dr. Phani Odom Work Phone: [facility] Work Phone: 05-18-2022 08:08-0400 SaO2% (BldA) [Mass fraction] 99 % Dr. Phani Odom Work Phone: [facility] Work Phone: 05-18-2022 08:08-0400 Systolic blood pressure 108 mm[Hg] Dr. Phani Odom Work Phone: [facility] Work Phone: 04-07-2022 07:42-0400 Body mass index (BMI) [Ratio] 28.6 kg/m2 Dr. Phani Odom Work Phone: [facility] Work Phone: 04-07-2022 07:42-0400 Body temperature 96.8 [degF] Dr. Phani Odom Work Phone: [facility] Work Phone: 04-07-2022 07:42-0400 Body weight 75.[address] Phani Odom Work Phone: [facility] Work Phone: 04-07-2022 07:42-0400 Diastolic blood pressure 74 mm[Hg] Dr. Phani Odom Work Phone: [facility] Work Phone: 04-07-2022 07:42-0400 Heart rate 89 /min Dr. Phani Odom Work Phone: [facility] Work Phone: 04-07-2022 07:42-0400 Respiratory rate 18 /min Dr. Phani Odom Work Phone: [facility] Work Phone: 04-07-2022 07:42-0400 SaO2% (BldA) [Mass fraction] 99 % Dr. Phani Odom Work Phone: [facility] Work Phone: 04-07-2022 07:42-0400 Systolic blood pressure 110 mm[Hg] Dr. Phani Odom Work Phone: [facility] Work Phone: 03-15-2022 14:40-0400 Body mass index (BMI) [Ratio] 28.5 kg/m2 Dr. Phani Odom Work Phone: [facility] Work Phone: 03-15-2022 14:40-0400 Body temperature 97.9 [degF] Dr. Phani Odom Work Phone: [facility] Work Phone: 03-15-2022 14:40-0400 Body weight 75.[address] Phani Odom Work Phone: [facility] Work Phone: 03-15-2022 14:40-0400 Diastolic blood pressure 73 mm[Hg] Dr. Phani Odom Work Phone: [facility] Work Phone: 03-15-2022 14:40-0400 Heart rate 96 /min Dr. Phani Odom Work Phone: [facility] Work Phone: 03-15-2022 14:40-0400 Respiratory rate 16 /min Dr. Phani Odom Work Phone: [facility] Work Phone: 03-15-2022 14:40-0400 SaO2% (BldA) [Mass fraction] 99 % Dr. Phani Odom Work Phone: [facility] Work Phone: 03-15-2022 14:40-0400 Systolic blood pressure 105 mm[Hg] Dr. Phani Odom Work Phone: [facility] Work Phone: 12-25-2021 13:17-0500 Body height 162.[address] Phani Odom Work Phone: [facility] Work Phone: 12-25-2021 13:17-0500 Body weight 75.[address] Phani Odom Work Phone: [facility] Work Phone: 12-25-2021 13:17-0500 Diastolic blood pressure 80 mm[Hg] Dr. Phani Odom Work Phone: [facility] Work Phone: 12-25-2021 13:17-0500 Heart rate 84 /min Dr. Phani Odom Work Phone: [facility] Work Phone: 12-25-2021 13:17-0500 Respiratory rate 18 /min Dr. Phani Odom Work Phone: [facility] Work Phone: 12-25-2021 13:17-0500 Systolic blood pressure 122 mm[Hg] Dr. Phani Odom Work Phone: [facility] Work Phone: 11-16-2021 13:04-0500 Body temperature 97.7 [degF] Dr. Phani Odom Work Phone: [facility] Work Phone: 11-16-2021 13:04-0500 Body weight 72.[address] Phani Odom Work Phone: [facility] Work Phone: 11-16-2021 13:04-0500 Diastolic blood pressure 86 mm[Hg] Dr. Phani Odom Work Phone: [facility] Work Phone: 11-16-2021 13:04-0500 Heart rate 97 /min Dr. Phani Odom Work Phone: [facility] Work Phone: 11-16-2021 13:04-0500 Respiratory rate 14 /min Dr. Phani Odom Work Phone: [facility] Work Phone: 11-16-2021 13:04-0500 SaO2% (BldA) [Mass fraction] 100 % Dr. Phani Odom Work Phone: [facility] Work Phone: 11-16-2021 13:04-0500 Systolic blood pressure 117 mm[Hg] Dr. Phani Odom Work Phone: [facility] Work Phone: 04-15-2021 10:41-0400 Body mass index (BMI) [Ratio] 24.7 kg/m2 Dr. Phani Odom Work Phone: [facility] Work Phone: 02-23-2021 11:17-0400 Body mass index (BMI) [Ratio] 24.3 kg/m2 Dr. Phani Odom Work Phone: [facility] Work Phone: 01-31-2021 08:53-0400 Body Temperature 97.2 [degF] Victor M HORN Work Phone: 01-31-2021 08:53-0400 BP Diastolic 89 mm[Hg] Victor M HORNEA Work Phone: 01-31-2021 08:53-0400 BP Systolic 153 mm[Hg] Victor M HORNEA Work Phone: 01-31-2021 08:53-0400 Pulse (Heart Rate) 68 /min Victor M HORNEA Work Phone: 01-31-2021 08:53-0400 Pulse Oximetry 95 % Victor M HORNEA Work Phone: 01-31-2021 08:53-0400 Respiratory Rate 14 /min Victor M HORNEA Work Phone: 01-30-2021 06:00-0400 BMI (Body Mass Index) 23.46 kg/m2 Victor M HORNEA Work Phone: 01-30-2021 06:00-0400 Body weight 62 kg Victor M HORNEA Work Phone: 01-28-2021 09:23-0400 Height 162.6 cm Victor M HORNEA Work Phone: 01-26-2021 13:55-0400 BMI (Body Mass Index) 25.4 kg/m2 Victor M HORNEA Work Phone: 01-26-2021 13:55-0400 Body Temperature 97.11 [...] Pulse (Heart Rate) 60 /min Victor M HORN Work Phone: 01-26-2021 13:55-0400 Pulse Oximetry 98 % Victor M HORN Work Phone: 01-26-2021 13:55-0400 Respiratory Rate 16 /min Victor M HORN Work Phone: Encounters Encounter Date Encounter Type Care Provider Facility Start: 06-25-2025 End: 06-25-2025 ambulatory Radha Odom Facility:[facility] Start: 06-21-2025 End: 06-21-2025 ambulatory Radha Odom Facility:[facility] Start: 06-13-2025 [facility] Start: 06-13-2025 End: 06-14-2025 ambulatory Jevonminerva Bustillo Facility:[facility] Start: 06-12-2025 End: 06-12-2025 ambulatory Radha Odom Facility:[facility] Start: 02-04-2025 ambulatory Radha Odom Faci [facility]ity:[facility] Start: 01-31-2025 ambulatory Radha Odom Faci lity:[facility] Start: 01-01-2025 ambulatory Radha Odom Faci [facility]ity:[facility] Start: 12-28-2024 ambulatory Radha Odom Faci lity:[facility] Start: 12-28-2024 End: 12-28-2024 ambulatory Bobjos Escuderouvaldo Facility:[facility] Start: 12-26-2024 End: 12-26-2024 ambulatory Bobjos Odom Facility:[facility] Start: 12-06-2024 End: 12-06-2024 ambulatory Bobjos Escuderouvaldo Facility:[facility] Start: 12-03-2024 End: 12-04-2024 ambulatory Nivia Moore Facility:[facility] Start: 11-30-2024 End: 11-30-2024 ambulatory Honorio Rhodes Facility:[facility] Start: 11-28-2024 End: 11-28-2024 ambulatory Honorio Carmelo Facility:[facility] Start: 11-14-2024 End: 11-14-2024 ambulatory Radha Odom Facility:[facility] Start: 11-14-2024 End: 11-14-2024 ambulatory Nivia Oscar Facility:[facility] Start: 10-17-2024 ambulatory Larry Burnham [facility] Start: 10-16-2024 ambulatory Veronique Mendoza Kenney Facility :[facility] Start: 10-16-2024 End: 10-18-2024 Evaluation and management of inpatient Jevon Bustillo Facility:[facility] Start: 08-22-2024 End: 08-22-2024 ambulatory Cristina Giraldo Facility:[facility] Start: 08-21-2024 ambulatory Moisesrito Escuderouvaldo Faci lity:[facility] Start: 06-09-2023 End: 06-09-2023 Emergency department patient visit [facility] Work Phone: Start: 06-08-2023 End: 06-08-2023 ambulatory [facility] Work Phone: Start: 06-08-2023 End: 06-08-2023 Patient encounter procedure [facility] Work Phone: Start: 01-24-2023 End: 01-24-2023 ambulatory [facility] Work Phone: Start: 01-24-2023 End: 01-24-2023 Patient encounter procedure [facility] Start: 01-23-2023 ambulatory Shawnee Horn H em/Onc Comment on above: Nurse Navigation Start: 08-16-2022 Non-patient / Non-visit Dr. Phani Odom Work Phone: [facility] Start: 08-13-2022 End: 08-13-[address] Phani Odom Work Phone: [facility] Work Phone: Start: 08-13-2022 End: 08-13-[address] Phani Odom Work Phone: [facility] Services/Neurology Start: 08-11-2022 Non-patient / Non-visit Dr. Phani Odom Work Phone: [facility] Start: 08-10-2022 End: 08-10-[address] Phani Odom Work Phone: [facility] Work Phone: Start: 08-10-2022 End: 08-10-[address] Phani Odom Work Phone: [facility]Neurology Start: 08-02-2022 End: 08-02-[address] Phani Odom Work Phone: [facility] Start: 07-28-2022 End: 07-28-[address] Phani Odom Work Phone: [facility] Work Phone: Start: 07-28-2022 End: 07-28-[address] Phani Odom Work Phone: [facility] Start: 06-30-2022 End: 06-30-[address] Phain Odom Work Phone: [facility] Start: 06-16-2022 Non-patient / Non-visit Dr. Phani Odom Work Phone: [facility] Start: 06-15-2022 Non-patient / Non-visit Dr. Phani Odom Work Phone: [facility] Start: 06-15-2022 End: 06-16-2022 Evaluation and management of inpatient Dr. Phani Odom Work Phone: [facility] Start: 06-15-2022 End: 06-16-2022 Non-patient / Non-visit Dr. Phani Odom Work Phone: [facility] Start: 06-14-2022 Evaluation and management of inpatient Dr. Phani Odom Work Phone: [facility] Start: 06-14-2022 Non-patient / Non-visit Dr. Phani Odom Work Phone: [facility] Start: 06-14-2022 Non-patient / Non-visit Dr. Phani Odom Work Phone: [facility] Start: 06-14-2022 Non-patient / Non-visit Dr. Phani Odom Work Phone: [facility] Start: 06-11-2022 Non-patient / Non-visit Dr. Phani Odom Work Phone: [facility] Start: 06-11-2022 Non-patient / Non-visit Dr. Phani Odom Work Phone: [facility] Start: 06-11-2022 Non-patient / Non-visit Dr. Phani Odom Work Phone: [facility] Start: 06-10-2022 Non-patient / Non-visit Dr. Phani Odom Work Phone: [facility] Start: 06-10-2022 Non-patient / Non-visit Dr. Phani Odom Work Phone: [facility] Start: 06-09-2022 End: 06-11-2022 Evaluation and management of inpatient Dr. Phani Odom Work Phone: [facility]Pro[facility] Start: 05-18-2022 End: 05-18-[address] [facility] Start: 05-11-2022 End: 05-11-[address] Phani Odom Work Phone: [facility]Outpatient Bone Densitometry Start: 04-07-2022 End: 04-07-[address] [facility] Start: 03-15-2022 End: 03-15-[address] Phani Odom Work Phone: [facility] Start: 03-11-2022 End: 03-11-[address] Phani Odom Work Phone: [facility] Start: 01-27-2022 Non-patient / Non-visit Dr. Phani Odom Work Phone: [facility] Start: 01-27-2022 End: 01-27-[address] Phani Odom Work Phone: [facility]Cardiovascular Services Start: 12-25-2021 End: 12-25-[address] Phani Odom Work Phone: [facility] Start: 11-16-2021 End: 11-16-[address] Phani Odom Work Phone: [facility] Start: 11-02-[address] Phani Odom Work Phone: [facility] Start: 03-10-[address] Phani Odom Work Phone: [facility] Start: 01-28-2021 End: 01-31-2021 Evaluation and management of inpatient Victor M Felizcarlos Work Phone: [facility] Comment on above: Right upper lobe pul monary nodule (Primary Dx) Start: 01-26-2021 End: 01-26-2021 Subsequent hospital visit by physician Victor M Darby Work Phone: [facility] Pre-Admit Testing Comment on above: Mass of upper lobe o f right lung; Pre-op testing; Shortness of breath Start: 01-05-2019 End: 01-05-2019 Emergency department patient visit RADHA MARTINEZ [facility] Start: 09-25-2018 End: 09-25-2018 [facility] Start: 05-05-2017 Ambulatory PHY WO ID REFERRING Fac ility:[facility] Procedures Date Procedure Procedure Detail Performing Clinician Start: 06-09-2023 Plain chest X-ray Start: 06-09-2023 CT of abdomen and pelvis without contrast Start: 06-08-2023 Diagnostic radiography of abdomen, decubitus and erect Start: 07-28-2022 CT of chest without contrast Dr. Phani Odom Work Phone: Start: 06-14-2022 CT angiography of chest with contrast Dr. Phani Odom Work Phone: Start: 06-14-2022 Plain chest X-ray Dr. Phani aguilar Work Phone: Start: 06-11-[address] Phani aguilar Work Phone: Start: 06-09-2022 Plain chest X-ray Dr. Phani aguilar Work Phone: Start: 05-11-2022 Dual energy X-ray absorptiometry Dr. Phani Odom Work Phone: Start: 03-11-2022 CT of chest without contrast Dr. Phani Odom Work Phone: Start: 11-02-2021 CT of chest without contrast Dr. Phani Odom Work Phone: Start: 01-31-2021 Radiologic exam chest single view Rashida Shabazz Work Phone: Start: 01-31-2021 BASIC METABOLIC PANEL W/ REFLEX TO MG FOR LOW K Rashida Shabazz Work Phone: Start: 01-31-2021 Blood count complete auto&auto difrntl wbc Rashida Shabazz Work Phone: Start: 01-30-2021 Radiologic exam chest single view Rashida Shabazz Work Phone: Start: 01-30-2021 BASIC METABOLIC PANEL W/ REFLEX TO MG FOR LOW K Rashida Shabazz Work Phone: Start: 01-30-2021 Blood count complete auto&auto difrntl wbc Rashida Shabazz Work Phone: Start: 01-29-2021 Radiologic exam chest single view Rashida Shabazz Work Phone: Start: 01-29-2021 BASIC METABOLIC PANEL W/ REFLEX TO MG FOR LOW K Rashida Shabazz Work Phone: Start: 01-29-2021 Blood count complete auto&auto difrntl wbc Rashida Shabazz Work Phone: Start: 01-28-2021 OPERATIVE REPORT 3m Scanning Start: 01-28-2021 Radiologic exam chest single view Rashida Shabazz Work Phone: Start: 01-26-2021 Radiologic exam chest 2 views [employer]in [employer] Work Phone: Start: 01-26-2021 Blood count complete auto&auto difrntl wbc [employer] Work Phone: Start: 01-26-2021 Blood typing serologic abo [employer] Work Phone: Start: 01-26-2021 Comprehensive metabolic panel [employer] Work Phone: Start: 01-26-2021 Prothrombin time [employer] Work Phone: Start: 01-26-2021 COVID-19 [employer] Work Phone: Start: 01-26-2021 Urnls dip stick/tablet rgnt auto w/o microscopy [employer] Work Phone: Start: 01-26-2021 Ecg routine ecg w/least 12 lds w/i&r [employer] Work Phone: Start: 05-07-2004 History of coronary artery bypass grafting Aortocoronary bypass status Dr. Phani Odom Work Phone: Viral antigen assay Dr. Hallie Odom Work Phone: Plan of Treatment Date Care Activity Detail Author Start: 07-08-2023 Influenza vaccination Influenza Vacc ine (#1) [facility] Start: [facility]-16-[facility]22 [facility] Start: 06-15-2022 Patient referral [facility] Work Phone: Start: 06-15-2022 Admission procedure [facility] Work Phone: Start: 06-15-2022 End: 06-15-2022 [facility] Work Phone: Start: 06-15-2022 Cardiac monitoring [facility] Work Phone: Start: 06-15-2022 Cardiac rehabilitati on - phase 1 [facility] Work Phone: Start: 06-15-2022 Cardiac rehabilitati on - phase 2 [facility] Work Phone: Start: 06-15-2022 Notification of physician [facility] Work Phone: Start: 06-15-2022 [facility] Start: 06-15-2022 Systemic arterial pr essure monitoring [facility] Work Phone: Start: 06-15-2022 Taking patient vital signs [facility] Work Phone: Start: 06-15-2022 Vascular disease ris k assessment [facility] Work Phone: Start: 06-15-2022 Vital signs measurements [facility] Work Phone: Start: 06-14-2022 Catheterization of vein [facility] Work Phone: Start: 06-14-2022 Medication not administered [facility] Work Phone: Start: 06-14-2022 Preoperative care [facility] Work Phone: Start: 06-14-2022 End: 06-14-2022 [facility] Work Phone: Start: 06-14-2022 Application of intermittent pneumatic compression device [facility] Work Phone: Start: 06-14-2022 Assessment of risk o f venous thromboembolism [facility] Work Phone: Start: 06-14-2022 Consultation [facility] Work Phone: Start: 06-14-2022 Documentation procedure [facility] Work Phone: Start: 06-14-2022 Incentive spirometry [facility] Work Phone: Start: 06-14-2022 Inhalation therapy procedure [facility] Work Phone: Start: 06-14-2022 Insertion of cathete r into peripheral vein [facility] Work Phone: Start: 06-14-2022 Introduction of urin daron catheter [facility] Work Phone: Start: 06-14-2022 Measuring intake and output [facility] Work Phone: Start: 06-14-2022 Oxygen therapy [facility] Work Phone: Start: 06-14-2022 Providing care accor ding to standard [facility] Work Phone: Start: 06-14-2022 Provision of activit y privileges [facility] Work Phone: Start: 06-14-2022 Referral to experimental technician [facility] Work Phone: Start: 06-14-2022 Referral to service [facility] Work Phone: Start: 06-14-2022 Tobacco use cessatio n education [facility] Work Phone: Start: 06-14-2022 Following clinical p athway protocol [facility] Work Phone: Start: 06-14-2022 Admission procedure [facility] Work Phone: Start: 06-14-2022 Verification routine [facility] Work Phone: Start: 06-14-2022 Patient referral [facility] Work Phone: Start: 06-14-2022 [facility] Work Phone: Start: 06-11-2022 Patient discharge [facility] Work Phone: Start: 06-10-2022 Referral to service [facility] Work Phone: Start: 06-10-2022 Referral to occupati onal therapist [facility] Work Phone: Start: 06-10-2022 Catheterization of vein [facility] Work Phone: Start: 06-10-2022 Notification of physician [facility] Work Phone: Start: 06-10-2022 Inhalation therapy procedure [facility] Work Phone: Start: 06-09-2022 Application of intermittent pneumatic compression device [facility] Work Phone: Start: 06-09-2022 Administration of bl ood product [facility] Work Phone: Start: 06-09-2022 Ambulation without limitation [facility] Work Phone: Start: 06-09-2022 Assessment of risk o f venous thromboembolism [facility] Work Phone: Start: 06-09-2022 Catheterization of vein [facility] Work Phone: Start: 06-09-2022 Insertion of cathete r into peripheral vein [facility] Work Phone: Start: 06-09-2022 Measuring intake and output [facility] Work Phone: Start: 06-09-2022 Oxygen therapy [facility] Work Phone: Start: 06-09-2022 Providing care accor ding to standard [facility] Work Phone: Start: 06-09-2022 Referral to experimental technician [facility] Work Phone: Start: 06-09-2022 Referral to gastroenterology service [facility] Work Phone: Start: 06-09-2022 [facility] Work Phone: Start: 06-09-2022 Following clinical p athway protocol [facility] Work Phone: Start: 06-09-2022 Admission procedure [facility] Work Phone: Start: 01-31-2022 Creatinine measurement Creatinine mo nitoring [facility] Work Phone: Start: 01-31-2022 Potassium monitoring Potassium monit [facility] Work Phone: Start: 01-26-2022 Creatinine measurement Creatinine mo [facility]itoring [facility] Work Phone: Start: 01-26-2022 Potassium monitoring Potassium monit oring [facility] Work Phone: Start: 02-13-2021 COVID-19 Vaccine (2 - Moderna 2-dose series) COVID-19 Vaccine (2 - Moderna 2-dose series) [facility] Work Phone: Start: 01-28-2021 Hospital Encounter 01/28/2021 Hospital Encounter General Surgery Victor M Darby MD [address] [place] [address] [phone] [facility] General Surgery Start: 12-31-2020 Annual Wellness Visi t (AWV) Annual Wellness Visit (AWV) [facility] Work Phone: Start: 08-05-2020 Shingles Vaccine (2 of 2) Cline gles Vaccine (2 of 2) [facility] Work Phone: Start: 2007 Screening for malign ant neoplasm of breast Breast cancer screen [facility] Work Phone: Start: 2007 Screening for malign ant neoplasm of colon Colon cancer screen colonoscopy [facility] Work Phone: Start: 2007 Zoster Vaccines (1 of 2) Zoste r Vaccines (1 of 2) [facility] Start: 1997 Diabetes screen Diabetes screen [facility] Work Phone: Start: 1997 Lipid panel Lipid screen [facility] Work Phone: Start: 1997 Screening for malign ant neoplasm of breast Mammogram [facility] Start: 1978 Screening for malign ant neoplasm of cervix Cervical cancer screen [facility] Work Phone: Start: 1976 DTaP/Tdap/Td vaccine (1 - Tdap) DTaP/Tdap/Td vaccine (1 - Tdap) [facility] Work Phone: Start: 1976 DTaP/Tdap/Td Vaccine s (1 - Tdap) DTaP/Tdap/Td Vaccines (1 - Tdap) [facility] Start: 1975 Diabetes mellitus screening Diabetes Screening [facility] Start: 1975 Hepatitis C screening Hepatitis C Sc reening [facility] Start: 1972 HIV screening HIV screen [facility] Work Phone: Start: 1969 Depression Screening Depression Scre ening [facility] Start: 1963 Pneumococcal Vaccine : 65+ Years (1 - PCV) Pneumococcal Vaccine: 65+ Years (1 - PCV) [facility] Start: 1957 COVID-19 Vaccine (#1) COVID-19 Vacci ne (#1) [facility] Start: 1957 Hepatitis C screening Hepatitis C sc reen [facility] Work Phone: Start: 1957 Lipid panel Lipid Panel [facility] Start: 1957 Screening for malign ant neoplasm of colon [facility] Start: 1957 Screening for osteoporosis Bone Dens ity Scan [facility] Acapella Acapella Respira tory Care Routine Daily until discontinued starting 01/28/2021 [facility] Work Phone: Comment on above: Daily until disconti nued starting 01/28/2021 Basic Metabolic Pane l w/ Reflex to MG Basic Metabolic Panel w/ Reflex to MG Lab Routine Daily until discontinued starting 01/29/2021, 3 completed [facility] Work Phone: Comment on above: Daily until disconti nued starting 01/29/2021, 3 completed CBC auto differential CBC auto d ifferential Lab Routine Daily until discontinued starting 01/29/2021, 3 completed [facility] Work Phone: Comment on above: Daily until disconti nued starting 01/29/2021, [address] Chest WO contrast [facility] Work Phone: EKG 12 lead EKG 12 lead ECG Routine Mass of upper lobe of right lung Pre-op testing 01/26/2021 2:47 PM EDT [facility] Work Phone: Exercise tolerance test [facility] Work Phone: Measurement of respi ratory function [facility] Work Phone: Nebulizer therapy [facility] Treatment Respiratory Care Routine 4X Daily until discontinued starting 01/28/2021 [facility] Work Phone: Comment on above: 4X Daily until disco ntinued starting 01/28/2021 Oxygen therapy [[facility] Data Set] Initiate Oxygen Therapy Protocol Respiratory Care Routine Daily until discontinued starting 01/28/2021 [facility] Work Phone: Comment on above: Daily until disconti nued starting 01/28/2021 Patient Education ED Abdominal P ain Unkn Cause Fem [facility] Work Phone: Patient referral [facility] Work Phone: End: 01-28-2021 Surgical Pathology Surgical Pathology Lab Routine Once for 1 Occurrences starting 01/28/2021 until 01/28/2021 [facility] Work Phone: Comment on above: Once for 1 Occurrenc es starting 01/28/2021 until 01/28/2021 Surgical Pathology Surgical Path ology Lab Routine 01/28/2021 12:15 PM EDT [facility] Work Phone: XR CHEST PORTABLE XR CHEST YANI BLE Imaging Routine Daily until discontinued starting 01/29/2021, 3 completed [facility] Work Phone: Comment on above: Daily until disconti nued starting 01/29/2021, 3 completed Immunizations Immunization Date Immunization Notes Care Provider Fa hollis 07-07-[address] Phani Odom Work Phone: [facility] 08-07-[address] Phani Odom Work Phone: [facility] 01-05-[address] Rita Odom Work Phone: [facility] Work Phone: 01-05-2011 pneumococcal vaccine , unspecified formulation [facility] Payers Date Payer Category Payer Self-pay [id number] 2020 Medicare [id number] 2015 Unknown [id number] Medicare [id number] 89e [id number] Unknown [id number] 2.16.8 [id number] Unknown [id number] 2.16.8 [id number] Unknown [id number] 2.16.8 [id number] Unknown [id number] 2.16.8 40.1.484735.3.579.2.462 Unknown [id number] 2.16.8 40.1.548666.3.579.2.462 Unknown [id number] 2.16.8 40.1.465451.3.579.2.462 Unknown [id number] 2.16.8 40.1.920742.3.579.2.462 Unknown [id number] 2.16.8 40.1.472094.3.579.2.462 Unknown [id number] 2.16.8 40.1.964993.3.579.2.462 Unknown [id number] 2.16.8 40.1.987244.3.579.2.462 Unknown [id number] 2.16.8 40.1.770398.3.579.2.462 Unknown [id number] 2.16.8 40.1.418701.3.579.2.462 Unknown [id number] 2.16.8 40.1.907782.3.579.2.462 Unknown [id number] 2.16.8 40.1.606686.3.579.2.462 Unknown [id number] 2.16.8 40.1.238339.3.579.2.462 Unknown [id number] 2.16.8 40.1.687480.3.579.2.462 Unknown [id number] 2.16.8 40.1.962508.3.579.2.462 Unknown [id number] 2.16.8 40.1.142305.3.579.2.462 Unknown [id number] 2.16.8 40.1.923349.3.579.2.462 Unknown [id number] 2.16.8 40.1.684861.3.579.2.462 Unknown [id number] 2.16.8 40.1.578700.3.579.2.462 Unknown [id number] 2.16.8 40.1.830941.3.579.2.462 Unknown [id number] 2.16.8 40.1.032219.3.579.2.462 Unknown [id number] 2.16.8 40.1.013931.3.579.2.462 Unknown [id number] 2.16.8 40.1.827963.3.579.2.462 Unknown [id number] 2.16.8 40.1.408690.3.579.2.462 Unknown [id number] 2.16.8 40.1.370967.3.579.2.462 Unknown [id number] 2.16.8 [id number] Social History Date Type Detail Facility Start: 01-26-2021 End: 01-30-2021 Tobacco smoking status PAIS Current every day smoker [employer] Phone: End: 01-31-2021 History of tobacco use Cigarette Smoker [employer] Phone: Start: 01-26-2021 End: 10-26-2022 Cigarettes smoked current (pack per day) - Reported [employer] Phone: Start: 01-26-2021 End: 01-30-2021 Tobacco use and exposure Never used [employer] Phone: Start: 01-26-2021 End: 10-26-2022 Alcohol intake Ex-drinker (finding) [employer] Phone: Start: 01-06-2021 History SDOH Alcohol Frequency 1 [employer] Phone: Start: 1955 Sex Assigned At Not on file [facility] [employer] Work Phone: Exposure to SARS-CoV -2 (event) Not sure [employer] Work Phone: Start: 12-25-2021 End: 08-03-2023 Tobacco smoking status NHIS Unknown if ever smoked [facility] Start: 04-15-2019 None [facility] Start: 10-20-2021 Homeless [facility] Start: 07-28-2020 Cigarettes [facility] Start: 1955 Sex Assigned At Female [facility] Tobacco smoking stat us PAIS Ex-smoker [facility] End: 01-31-2021 History of tobacco use Current smoker [facility] Start: 10-26-2022 Tobacco use panel [facility] Medical Equipment Procedure Code Equipment Code Equipment Origin al Text Equipment Identifier Dates LEAD KIT 28CM BL ADDER STIM FDA Start: 12-12-2018 GENERATOR,BLADDER STIM FDA St art: 12-26-2018 LEAD KIT 28CM BL ADDER STIM FDA Start: 03-20-2019 LEAD KIT 28CM BL ADDER STIM FDA Start: 12-12-2018 GENERATOR,BLADDER STIM FDA St art: 12-26-2018 LEAD KIT 28CM BL ADDER STIM FDA Start: 03-20-2019 LEAD KIT 28CM BL ADDER STIM FDA Start: 12-12-2018 GENERATOR,BLADDER STIM FDA St art: 12-26-2018 LEAD KIT 28CM BL ADDER STIM FDA Start: 03-20-2019 LEAD KIT 28CM BL ADDER STIM FDA Start: 12-12-2018 GENERATOR,BLADDER STIM FDA St art: 12-26-2018 LEAD KIT 28CM BL ADDER STIM FDA Start: 03-20-2019 LEAD KIT 28CM BL ADDER STIM FDA Start: 12-12-2018 GENERATOR,BLADDER STIM FDA St art: 12-26-2018 LEAD KIT 28CM BL ADDER STIM FDA Start: 03-20-2019 ([id number] Drug-eluting cor onary artery stent, bioabsorbable-polymer- coated [id number] FDA Start: 06-15-2022 Femoral vessel s uture implantation set [id number] FDA Start: 06-15-2022 LEAD KIT 28CM BL ADDER STIM FDA Start: 12-12-2018 GENERATOR,BLADDER STIM FDA St art: 12-26-2018 LEAD KIT 28CM BL ADDER STIM FDA Start: 03-20-2019 LEAD KIT 28CM BL ADDER STIM FDA Start: 12-12-2018 GENERATOR,BLADDER STIM FDA St art: 12-26-2018 LEAD KIT 28CM BL ADDER STIM FDA Start: 03-20-2019 LEAD KIT 28CM BL ADDER STIM FDA Start: 12-12-2018 GENERATOR,BLADDER STIM FDA St art: 12-26-2018 LEAD KIT 28CM BL ADDER STIM FDA Start: 03-20-2019 LEAD KIT 28CM BL ADDER STIM FDA Start: 12-12-2018 GENERATOR,BLADDER STIM FDA St art: 12-26-2018 LEAD KIT 28CM BL ADDER STIM FDA Start: 03-20-2019 LEAD KIT 28CM BL ADDER STIM FDA Start: 12-12-2018 GENERATOR,BLADDER STIM FDA St art: 12-26-2018 LEAD KIT 28CM BL ADDER STIM FDA Start: 03-20-2019 LEAD KIT 28CM BL ADDER STIM FDA Start: 12-12-2018 GENERATOR,BLADDER STIM FDA St art: 12-26-2018 LEAD KIT 28CM BL ADDER STIM FDA Start: 03-20-2019 Goals Date Patient Goal Desired Activity /State Functional Status Date Assessment Result Facility 06-16-2022 Functional status Activity Ability Indepe ndent [facility] Work Phone: 06-15-2022 Functional status Ambulates [facility] Work Phone: 06-11-2022 Functional status Ambulates [facility] Work Phone: Mental Status Date Assessment Result Facility 06-16-2022 Cognitive function Voice/Name [facility] Work Phone: 06-14-2022 Cognitive function Voice/Name [facility] Work Phone: 06-11-2022 Cognitive function Voice/Name [facility] Work Phone: 06-11-2022 [facility] function [facility] Work [facility]: Clinical Notes 05-07-2004 to 06-14-2025 Shawnee Corona RN - 01/23/2023 3:58 PM EDT Note Date & Type Note Facility 06-14-2025 Note [facility] Records Department [address] [place] [address] Discharge Summary 06/14/25 1801 MR#: [id number] Acct: [id number] Name: HALEIGH ALMEIDA Rep #: [id number] : 1955 70 From: Diego Nichole DO PCP: Dr. Radha Odom MD Status:DIS JAMARCUS Location: [place] [address] Providers Date of Admission: 06/13/25 Date of Discharge: 06/14/25 Primary Care Physician: Dr. Radha Odom MD Reason For Visit: CHEST PAIN Diagnosis Discharge Diagnosis (1) Chest pain: Status: Acute Code(s): R07.9 - Chest pain, unspecified Qualifiers: Chest pain type: unspecified Qualified Code(s): R07.9 - Chest pain, unspecified Plan 1. Musculoskeletal chest pain #2 chronic iron deficiency anemia-etiology unclear #3 essential hypertension #4 chronic obstructive pulmonary disease Medications at Discharge Home Medications omeprazole 20 mg capsule,delayed release 20 mg PO DAILY acid reflux 02/04/16 albuterol sulfate 90 mcg/actuation aerosol inhaler 1 puff inhalation Q6H PRN Sob /Or Wheezing 07/28/20 ipratropium 0.5 mg-albuterol 3 mg (2.5 mg base)/3 mL nebulization soln 3 ml inhalation Q4H PRN shortness of breath or wheezing #180 mL 12/29/20 nebulizer and compressor #1 ea 06/11/22 primidone 50 mg tablet 150 mg PO QHS seizures 30 days #90 tabs 01/10/24 prazosin 2 mg capsule 2 mg PO QHS blood pressure 01/12/24 budesonide 1 mg/2 mL suspension for nebulization 1 mg (2 mL) inhalation BID BREATHING #60 mL 02/03/24 nitroglycerin 0.4 mg sublingual tablet 0.4 mg sublingual Q5M PRN Chest Pain #25 tabs 02/08/24 metoprolol succinate 25 mg tablet,extended release 24 hr 12.5 mg (1/2 x 25 mg) PO DAILY blood pressure #45 TABLETS 02/13/24 sertraline 100 mg tablet 150 mg PO DAILY mood 10/16/24 furosemide 20 mg tablet (Lasix) 20 mg PO BID diuretic #90 tabs 04/02/25 isosorbide mononitrate 30 mg tablet,extended release 24 hr 30 mg PO DAILY #30 tabs 06/14/25 Hospital Course Operations None Procedures Stress test Summary of Care Provided Minutes Spent on Discharge: 30 Hospital Course: This 70-year-old white female was seen in the emergency room at [facility] with a chief plaint of chest pain. Patient described the discomfort as squeezing in nature and primarily left-sided. Workup in the emergency room included labs which was remarkable for slightly elevated troponins at 23 and 21 respectively. Patient's beta natruretic peptide was elevated at 965, chest x-ray showed no acute abnormality. EKG showed normal sinus rhythm without evidence of ischemic changes. Patient was placed in observation status on PCU and monitored, she underwent a pharmacological nuclear stress test which was negative for reversible ischemia. On 06/14/2025, patient was seen and examined: On examination she appeared in good health and spirits, she does not appear to be in any distress. Vital signs as documented. Skin warm and dry and without overt rashes. Neck without JVD, thyroid appears normal, trachea is midline, neck is supple. Lungs clear, normal air movement was noted. Heart exam notable for regular rhythm, normal sounds and absence of murmurs, rubs or gallops. Abdomen unremarkable and without evidence of organomegaly, masses, or abdominal aortic enlargement, bowel sounds are present in all 4 quadrants, no abdominal tenderness was noted. Extremities nonedematous, no cyanosis was noted, no clubbing was noted. Neuro: Cranial nerves II through XII are grossly intact, no focal motor deficits were noted, sensation to light touch and pinprick is intact, motor exam 5/5 throughout. Psych: Patient is alert and oriented x3, she does not appear anxious or depressed, she does not appear agitated. Patient was discharged home in stable condition on 06/14/2025. Weight / BMI Weight Weight: 68.5 kg Body Mass Index (BMI) 26.7 ABG / Lab / Microbiology Data 06/14/25 06:34 06/14/25 06:34 Laboratory: Laboratory Results - last 24 hr 06/14/25 06:34: WBC 5.3, RBC 3.96 L, Hgb 10.1 L, Hct 32.8 L, MCV 82.8, MCH 25.5 L, MCHC 30.8 L, RDW Std Deviation 47.9 H, RDW Coeff of Kit 15.8 H, Plt Count 207, MPV 11.2, Immature Gran % (Auto) 0.200, Neut % (Auto) 60.7, Lymph % (Auto) 27.0, Cabell % (Auto) 9.8, Eos % (Auto) 1.7, Baso % (Auto) 0.6, Absolute Neuts (auto) 3.2, Absolute Lymphs (auto) 1.43, Nucleated RBC % 0, Sodium 136, Potassium 4.0, Chloride 100, Carbon Dioxide 23.5, Anion Gap 13, BUN 14, Creatinine 0.91, Estim Creat Clear Calc 54.96, Est GFR (MDRD) Non-Af 69, BUN/Creatinine Ratio 14.9, Glucose 99, Calcium 9.4, Triglycerides 71, Cholesterol 178, LDL Cholesterol, Calc 87, VLDL Cholesterol 14, HDL Cholesterol 76, Cholesterol/HDL Ratio 2.33 Microbiology: Microbiology 06/13/25 14:30 Stool Stool Occult Blood (KATE) - Final D/C Instructions Weight Bearing Status: Full weight bearing (more content not included)... [facility] 12-28-2024 Note [facility] Records Department [address] [place] [address] History Physical Exam 12/28/24 0653 MR#: [id number] Acct: [id number] Name: HALEIGH ALMEIDA Rep #: [id number] : 1955 69 From: Tannerkaelyn Beasley PCP: Dr. Radha Odom MD Status:[facility] Location: [place] [address] HPI - General General Date of Admission: 12/28/24 Date of Service: 12/28/24 Chief Complaint: Iron deficiency anemia HPI Narrative HALEIGH ALMEIDA, is a 69 F who presents today for the evaluation of iron deficiency anemia. Microcytic anemia * iron-deficiency * Received iron infusions x2. Transfused 1 unit. Check hemoccult. Start ferrous sulfate QOD. * Will eventually need endoscopy, but if remains stable, can be done as outpt. LABS 10/18/2024 HGB 8.6 10/17/2024 HGB 6.3 10/16/2024 HGB 7 - Seen in office today with her daughter - denies any BRBPR - denies any melena - generalized abdominal pain - more in the RLQ pain - unknown trigger for pain - diarrhea all the time - watery stools - up 3-7x a day - reports she does have formed stools on occasion - fecal incontinence - but does experience urgency - diarrhea just since the admission - PLAVIX discontinued this admission - h/o HI, CAD ----- was taking ALEVE 2 a day prior to admission prior to back pain - she is on Omeprazole - started Fe QOD upon discharge - reports she went into hospital with fatigue and SOB - mild improvement since admission - weight loss of 15lbs in the past couple months - reports she does have an appetite - not eating as much as she would - intermittent nausea - denies any emesis - intermittent RUQ grabbing and twisting pain - can radiate through to back - this is not the pain she had prior to CCX - can be brought on by turning a certain way - h/o CCX secondary to stones EGD 06/11/2022 - Normal esophagus. - Medium-sized hiatal hernia. - Normal second portion of the duodenum. - No specimens collected. COLON 06/11/2022 - TA - Diverticulosis in the recto-sigmoid colon and in the sigmoid colon. - Two 1 to 2 mm polyps at the splenic flexure and at the hepatic flexure, removed with a hot snare. Resected and retrieved. - Two bleeding colonic angiodysplastic lesions. Treated with a monopolar probe. --Father with colon CA in his 60's - 25 years ago she had a bowel resection (12) secondary to adhesions - total hysterectomy - appendectomy - CCX in the 90's - denies any falls in the past year [facility] Medical History Wears glasses Loose, teeth Cancer Depression Bladder disease History of steroid therapy Arthritis High cholesterol Restless legs History of GI bleed On home oxygen therapy Smoker Sleep apnea History of echocardiogram History of stress test Cardiology follow-up encounter GERD (gastroesophageal reflux disease) Lung cancer Anxiety Atherosclerotic heart disease of [place] coronary artery with unstable angina pectoris Congestive heart failure History of COPD Anemia Angina of effort Myocardial infarction, silent Adenocarcinoma of lung, stage 1 Lung cancer Melanoma Pure hypercholesterolemia Worsening angina Chest pain, unspecified HOWARD (obstructive sleep apnea) Osteoarthritis DDD (degenerative disc disease) Premature ventricular contraction Pericardial effusion Atherosclerotic heart disease of [place] coronary artery without angina pectoris Nonrheumatic mitral (valve) prolapse Tobacco abuse Essential hypertension Home Medications ???Medication ???Instructions ???Recorded ???Last Taken ???Type omeprazole 20 mg capsule,delayed 20 mg PO DAILY acid reflux 6 12/27/24 History release albuterol sulfate 90 mcg/actuation 1 puff inhalation Q6H PRN Sob / Or 07/28/20 06/14/22 History aerosol inhaler Wheezing ipratropium 0.5 mg-albuterol 3 mg 3 ml inhalation Q4H PRN shortness 12/29/20 06/08/22 Rx (2.5 mg base)/3 mL nebulization of breath or wheezing #180 mL soln nebulizer and compressor #1 ea 06/11/22 Unknown Rx primidone 50 mg tablet 150 mg PO QHS seizures 30 days #90 01/10/24 12/27/24 History tabs prazosin 2 mg capsule 2 mg PO QHS blood pressure 4 12/27/24 History budesonide 1 mg/2 mL suspension 1 mg (2 mL) inhalation BID 4 Unknown Rx for nebulization BREATHING #60 mL nitroglycerin 0.4 mg sublingual 0.4 mg sublingual Q5M PRN Chest Unknown Rx tablet Pain #25 tabs metoprolol succinate 25 mg 12.5 mg (1/2 x 25 mg) PO DAILY 06/3012/27/24 Rx tablet,extended release 24 hr blood pressure #45 TABLETS furosemide 20 mg tablet (Lasix) 20 mg PO BID diuretic 10/16/24 History sertraline 100 mg tablet 150 mg PO DAILY mood 10/16/2412/09 History Allergy/AdvReac Type Severi (more content not included)... [facility] 10-18-2024 Note [facility] Department [address] [place] [address] Discharge Summary 10/18/24 1300 MR#: [id number] Acct: [id number] Name: WILLIEHALEIGH FISHER Janie Rep #: [id number] : 1955 69 From: Jevno Bustillo DO PCP: Dr. Radha Odom MD Status:ADM IN Location: [place] [id number] Providers Date of Admission: 10/16/24 Primary Care Physician: Dr. Radha Odom MD Reason For Visit: CP, ELEVATED TROPONIN Diagnosis Discharge Diagnosis (1) Chest pain: Status: Acute Code(s): R07.9 - Chest pain, unspecified (2) Elevated troponin: Status: Acute Code(s): R79.89 - Other specified abnormal findings of blood chemistry Plan elevated troponin * troponins peaked at 147, since trending down. * echo shows an EF of * could be demand ischemia given anemia in pt with known CAD Microcytic anemia * iron-deficiency * Received iron infusions x2. Transfused 1 unit. Check hemoccult. Start ferrous sulfate QOD. * Will eventually need endoscopy, but if remains stable, can be done as outpt. Chronic conditions: * lung adenocarcinoma stage IB: /p VATS converted to right thoracotomy and wedge resection 01/2021 considered in remission, received adjuvant radiation therapy in 2020, follow-up imaging with stable continued evidence pleural-based density/thickening in the right upper and right middle lobes with evidence of bronchiectasis suspicious for postradiation fibrosis, following routinely with oncology and radiation oncology with most recent visit noted 05/22/2024, encourage continued outpatient follow-up as previously arranged. CXR reviewed and shows a RML wedge-shaped lesion, unchanged since 02/22/24. * CAD: hold clopidogrel as last intervention was in 2021 given anemia. Continue ASA, metoprolol succinate. No statins given intolerance. Would not resume clopidogrel upon discharge. * COPD: stable. VTE prophylaxis: SCDs. Medications at Discharge Home Medications omeprazole 20 mg capsule,delayed release 20 mg PO DAILY acid reflux 02/04/16 albuterol sulfate 90 mcg/actuation aerosol inhaler 1 puff inhalation Q6H PRN Sob /Or Wheezing 07/28/20 ipratropium 0.5 mg-albuterol 3 mg (2.5 mg base)/3 mL nebulization soln 3 ml inhalation Q4H PRN shortness of breath or wheezing #180 mL 12/29/20 nebulizer and compressor #1 ea 06/11/22 primidone 50 mg tablet 150 mg PO QHS seizures 30 days #90 tabs 01/10/24 prazosin 2 mg capsule 2 mg PO QHS 01/12/24 budesonide 1 mg/2 mL suspension for nebulization 1 mg (2 mL) inhalation BID #60 mL 02/03/24 nitroglycerin 0.4 mg sublingual tablet 0.4 mg sublingual Q5M PRN Chest Pain #25 tabs 02/08/24 metoprolol succinate 25 mg tablet,extended release 24 hr 12.5 mg (1/2 x 25 mg) PO DAILY #45 TABLETS 02/13/24 hydroxyzine HCl 25 mg tablet 50 mg PO BID 06/21/24 clonazepam 0.5 mg tablet 0.5 mg PO QHS PRN anxiety 10/16/24 clopidogrel 75 mg tablet (Plavix) 75 mg PO DAILY 10/16/24 furosemide 20 mg tablet (Lasix) 20 mg PO BID 10/16/24 sertraline 100 mg tablet 150 mg PO DAILY mood 10/16/24 ferrous sulfate 324 mg (65 mg iron) tablet,delayed release 324 mg PO QODAY #30 tabs 10/18/24 Weight / BMI Weight Weight: 65.77 kg Body Mass Index (BMI) 25.7 ABG / Lab / Microbiology Data 10/18/24 09:41 10/17/24 05:34 Laboratory: Laboratory Results - last 24 hr 10/17/24 10:41: Blood Type A POSITIVE, Antibody Screen NEGATIVE, Crossmatch See Detail 10/18/24 09:41: WBC 12.1 H, RBC 4.23, Hgb 8.6 L, Hct 29.8 L, MCV 70.4 L, MCH 20.3 L, MCHC 28.9 L D, RDW Std Deviation 50.3 H, RDW Coeff of Kit 20.3 H, Plt Count 219, MPV 10.0, Immature Gran % (Auto) 1.200 H, Neut % (Auto) 90.0 H, Lymph % (Auto) 7.0 L, Cabell % (Auto) 1.7, Eos % (Auto) 0.0, Baso % (Auto) 0.1, Absolute Neuts (auto) 10.9 H, Absolute Lymphs (auto) 0.84, Nucleated RBC % 0 Microbiology: Microbiology 10/17/24 01:17 Urine, Random Legionella Antigen - Final 10/17/24 01:17 Urine, Random Streptococcus pneumoniae Antigen (M - Final 10/16/24 21:40 Mucosa - Nose Respiratory Panel (PCR) - Final D/C Instructions Discharge Diet: Low fat / Low cholesterol DC O2, CPAP, BIPAP Needs Additional Home O2 Discharge instructions: No DC home with Oxygen: No Meaningful Use Info Meaningful Use Meaningful Use Diagnoses (Choose all that apply): None applicable Ischemic Stroke Statin Dosing Therapy Reference: STATIN DOSE THERAPY REFERENCE: * Patients > 75 years receive moderate or high dose statin therapy. * Patients 75 years or YOUNGER should receive HIGH intensity statin dose unless contraindicated. You will be required to document reason for non-treatment if statin daily dose does not meet guidelines. HIGH DOSE STATIN THERAPY DAILY Atorvastatin > than or = to 40 mg Rosuvastatin > than or = to 20 mg Amlodipine + Atorvastatin > than or = to 2.5/40 mg Ezetimibe + Simv (more content not included)... [facility] 01-23-2023 History of Present illness Narrative Chart reviewed for surveillance purposes by Thoracic/Head & Neck Furnace Attendant. Patient undergoing surveillance at [facility] documented in this encounter [facility] 05-07-2004 Evaluation note Diagnosis Onset Date Adenocarcinoma of lung, stage 1 acute Shortness of breath acute Aortocoronary bypass status May, chronic Atherosclerotic heart diseas e of [place] coronary artery without angina pectoris chronic Essential hypertension chron ic Nonrheumatic mitral (valve) prolapse chronic Premature ventricular contraction chronic Presence of stent in coronar y artery chronic Pure hypercholesterolemia [facility] Work Phone: Evaluation note* Diagnosis Onset Date Resolution Status Adenocarcinoma of lung, stage 1 acute Asthma acute Shortness of breath acute COPD (chronic obstructive pulmonary disease) chronic Abnormal cardiac enzyme level acute Adenocarcinoma of lung, stage 1 acute Anemia acute Angina of effort acute CAD (coronary artery disease) acute Exertional shortness of breath acute Microcytic anemia acute MVP (mitral valve prolapse) acute Myocardial infarction, silent acute Aortocoronary bypass status May, chronic COPD (chronic obstructive pulmonary disease) chronic Essential hypertension chron ic History of COPD chronic Premature ventricular contraction chronic Presence of stent in coronary artery chronic Pure hypercholesterolemia [facility] Work Phone: Evaluation note* Diagnosis Onset Date Resolution Status Adenocarcinoma of lung, stage 1 acute Asthma acute Shortness of breath acute COPD (chronic obstructive pulmonary disease) chronic Abnormal cardiac enzyme level acute Adenocarcinoma of lung, stage 1 acute Anemia acute Angina of effort acute CAD (coronary artery disease) acute Exertional shortness of breath acute Microcytic anemia acute MVP (mitral valve prolapse) acute Myocardial infarction, silent acute Aortocoronary bypass status May, chronic COPD (chronic obstructive pulmonary disease) chronic Essential hypertension chron ic History of COPD chronic Premature ventricular contraction chronic Presence of stent in coronary artery chronic Pure hypercholesterolemia ch ronic Chest pain acute GARRISON (dyspnea on exertion) ac [place] Non-ST elevation (NSTEMI) myocardial infarction acute Shortness of breath acute [facility] Work Phone: Evaluation note* Diagnosis Onset Date Resolution Status Adenocarcinoma of lung, stage 1 acute Asthma acute Shortness of breath acute COPD (chronic obstructive pulmonary disease) chronic Abnormal cardiac enzyme level acute Adenocarcinoma of lung, stage 1 acute Anemia acute Angina of effort acute CAD (coronary artery disease) acute Exertional shortness of breath acute Microcytic anemia acute MVP (mitral valve prolapse) acute Myocardial infarction, silent acute Aortocoronary bypass status May, chronic COPD (chronic obstructive pulmonary disease) chronic Essential hypertension chron ic History of COPD chronic Premature ventricular contraction chronic Presence of stent in coronary artery June, chronic Pure hypercholesterolemia ch ronic Anemia acute CAD (coronary artery disease) acute Chest pain acute GARRISON (dyspnea on exertion) ac [place] GI bleed acute MVP (mitral valve prolapse) acute Non-ST elevation (NSTEMI) myocardial infarction acute Primary lung adenocarcinoma acute Shortness of breath acute Worsening angina acute Aortocoronary bypass status May, chronic COPD (chronic obstructive pulmonary disease) chronic Essential hypertension chron ic Presence of stent in coronary artery June, chronic Pure hypercholesterolemia ch ronic [facility] Work Phone: Evaluation note* Diagnosis Onset Date Resolution Status Asthma acute Shortness of breath acute Anemia acute CAD (coronary artery disease) acute Exertional shortness of breath acute Microcytic anemia acute MVP (mitral valve prolapse) acute Essential hypertension chron ic Premature ventricular contraction chronic Abnormal cardiac enzyme level resolved Anemia acute CAD (coronary artery disease) acute Chest pain acute GARRISON (dyspnea on exertion) ac [place] GI bleed acute MVP (mitral valve prolapse) acute Non-ST elevation (NSTEMI) myocardial infarction acute Primary lung adenocarcinoma acute Shortness of breath acute Worsening angina acute Essential hypertension chron ic Atherosclerotic heart diseas e of [place] coronary artery without angina pectoris chronic Essential hypertension chron ic Nonrheumatic mitral (valve) prolapse chronic Premature ventricular contraction chronic [facility] Work Phone: Evaluation note* Diagnosis Onset Date Resolution Status Anemia acute CAD (coronary artery disease) acute Exertional shortness of breath acute Microcytic anemia acute MVP (mitral valve prolapse) acute Essential hypertension chron ic Premature ventricular contraction chronic Abnormal cardiac enzyme level resolved Anemia acute CAD (coronary artery disease) acute Chest pain acute GARRISON (dyspnea on exertion) ac [place] GI bleed acute MVP (mitral valve prolapse) acute Non-ST elevation (NSTEMI) myocardial infarction acute Primary lung adenocarcinoma acute Shortness of breath acute Worsening angina acute Essential hypertension chron ic Atherosclerotic heart diseas e of [place] coronary artery without angina pectoris chronic Essential hypertension chron ic Nonrheumatic mitral (valve) prolapse chronic Premature ventricular contraction chronic Primary lung adenocarcinoma acute [facility] Work Phone: Evaluation noteNo assessment information available [facility] Work Phone: Summary Purpose Family History No Family History Records Found Relationship Condition Age at Onset Recorded Date/T gareth father Hypertension Unknown Malignant neoplasm of colon Unknown mother Malignant neoplasm Unknown Advance Directives No Advanced Directives Records FoundLatest Code Status on File Code Status Date Activated Date Inactivated Comments Full Code 01/28/2021 7:38 PM Full Code 01/28/2021 9:18 AM 01/28/2021 1:42 PM Advance Directive Response Recorded Date/ Time Advance Directives Yes October 9:51am Living Will Yes October 20 9:51am Power of Public Health Informatician Yes October 20, 2021 9:51am Advance Directive Response Recorded Date/ Time Name of Medical Power of Public Health Informatician Eriberto Almeida June 09, 2022 5:58pm Advance Directives Yes October 9:51am Living Will Yes June 09, 2022 5:58pm Power of Public Health Informatician Yes June 09 5:58pm Advance Directive Response Recorded Date/ Time Name of Medical Power of Public Health Informatician Eriberto Almeida June 09, 2022 5:58pm Name of Medical Power of Public Health Informatician EULALIO FLOYD June 14, 2022 5:20pm Advance Directives Yes October 9:51am Living Will Yes June 14, 2022 5:20pm Power of Public Health Informatician Yes June 14 5:20pm Advance Directive Response Recorded Date/ Time Advance Directives Yes October 9:51am Living Will Yes June 14, 2022 5:20pm Power of Public Health Informatician Yes June 14 5:20pm Advance Directive Response Recorded Date/ Time Advance Directives Yes October 9:51am Living Will Yes June 09, 2023 8:08pm Power of Public Health Informatician Yes June 09 8:08pm Name of Medical Power of Public Health Informatician ERIBERTO ALMEIDA June 09, 2023 8:08pm Procedure Findings Note Operative Note (Enc) (GENSWS ) Progress Notes: Angel Katz MD 10/27/2019 1:44 PM Signed OPERATIVE NOTATION FOR [facility] SURGICAL PROCEDURE. October 18, 2019 Haleigh Masdarrel 1955 [id number] PROCEDURE: EGD WITH BIOPSY - [id number] and COLONOSCOPY - [id number] SURGEON: Marysol Katz M.D. FACS ENVIRONMENTAL HEALTH AND SAFETY INTERN: None DEPT: WQ PROVIDER: [id number] Katz MD POS: [id number] DIAGNOSIS: (R19.5) Heme positive stool (primary encounter diagnosis) (R11.0) Nausea (Z80.0) Family history of colon cancer ASA CLASS: 3 - Severe FINDINGS: COMPLICATIONS: None PMHx - PAST MEDICAL HISTORY Diagnosis Date - Adjustment disorder with depressed mood - Chronic airway obstruction, not elsewhere classified - Coronary artery disease - Coronary atherosclerosis of unspecified type of vessel, port gamble or graft - Dyslipidemia - Esophageal reflux Gastroesophageal reflux - Malignant melanoma of skin of upper cantu (more content not included)... Note Attestation signed by Victor M Darby MD at 02/01/2021 12:35 PM I independently saw and evaluated the patient - including reviewing the labs, imaging studies, and available documentation. I agree with the findings and plan of care as documented by the resident/POST FRAMER/CUSTOM FURRIER/PA, unless otherwise noted. Please do not hesitate to contact me/us if you have any questions or concerns. Victor M Darby MD FACS Discharge Summary Haleigh Almeida : 1955 Age: 65 y.o. ADMIT DATE: 01/28/2021 DISCHARGE DATE: 01/31/2021 DISCHARGING SURGEON: Victor M Darby MD Office Number: [phone] PRIMARY CARE PHYSICIAN: Radha Odom VISIT STATUS: [...] Pre-op testing Procedures EKG 12 lead Florentin Reynoso APRN - POST FRAMER [address] [place] [address] Discharge Instructions * Instructions* Dafne Payton RN - 01/26/2021 PLEASE, DO NOT SMOKE OR USE TOBACCO PRODUCTS ON THE DAY OF YOUR SURGERY. THIS COULD RESULT IN YOUR SURGERY BEING CANCELED. Please bring your [facility] Surgical Information folder on the day of surgery. Please diego the last dose taken (date and time [...] Everywhere. * VATS (Video-Assisted Thoracoscopic Surgery): Pre-op (Yakut) * VATS (Video-Assisted Thoracoscopic Surgery): Post-op (Yakut) documented in this encounter* Instructions* Rashida Shabazz MD - 01/28/2021 Images from the original note were not included. [facility]: Cardiothoracic Surgery [address] [place] [address]. [address] [facility] (T): #[phone] (F): #[phone] After lung surgery, it is common to [...] or dog food bags, or a vacuum school cleaner. If your incision is in the [...] start to have pain. Shoulder Stretch 1. convex grinder operator a doorway and place one arm [...] Ifyou are prescribed oxycodone/acetaminophen (Percocet) or hydrocodone/acetaminophen (Sharon/Vicodin) be cautious when taking additional tylenol. No [...] be monitored and followed by the diet photo technician. GARETH Tirado * Brett Luz - 01/30/2021 11:15 AM EDT Physical Therapy Facility/Department: [facility] Initial Assessment NAME: Haleigh [...] Ambulation Assistance: Independent Transfer Assistance: Independent Active Intranet Support: Yes Mode of Transportation: Car Cognition Cognition [...] Restraints Initially in place: No AM-PAC Score [facility] Inpatient Mobility Raw Score : 21 (01/30/21 1047) [facility] Inpatient T-Scale Score : 50.25 (01/30/21 1047) Mobility Inpatient CMS 0-100% Score: 28.97 (01/30/21 1047) Mobility Inpatient CMS G-Code Modifier : CJ [...] on list for mobility aide. * Celia Prado APRN - SCHOOL BUS OPERATOR - 01/30/2021 7:54 AM EDT PAGING: The Acute Pain Service providers are available via [employer]. Please reference [employer] for Pain Management Provider CHAIN TESTING MACHINE OPERATOR and direct all questions to the provider listed. Due to the current environment of [place] [id number], PPE was worn for the duration of all face to face encounters including but not limited to an N95 in accordance with CDC and hospital guidelines. 01/30/2021 Referring Physician: Victor M Darby MD Subjective: We have been asked to [...] GLUCOSE 123 (H) 01/30/2021 04:17 AM Allergies: Bodega extract, Atorvastatin, Iv dye [iodides], Pravastatin, and [...] APAP 2000 mg 2g 3g PRN Hydromorphone LACQUER COATER 7.4 mg DC'd Oxycodone 25mg Hydromorphone Exparel [...] Acute Pain Service providers are available via [employer]. Please reference [employer] for Pain Management Provider CHAIN TESTING MACHINE OPERATOR and direct all questions to the provider [...] Date 01/30/21 0000 - 01/30/21 2359 Shift 2131-5364 3019-2101 9816-9463 24 Hour Total INTAKE Shift Total(mL/kg) OUTPUT Urine(mL/kg/hr) 200 200 Chest Tube 150 150 Shift Total(mL/kg) 350(5) 350(5) Weight (kg) 69.7 69.7 69.7 69.7 Patient Vitals for the past 96 hrs (Last 3 readings): Weight 01/29/21 0405 153 lb 11.2 oz (69.7 kg) 01/28/21 0923 148 lb (67.1 kg) Labs and Diagnostics: (reviewed in EMR) BMP: Recent Labs 01/29/21 0010 01/30/21 0417 NA 130* 135 K 4.6 4.1 CL 104 105 CO2 20* 24 BUN 15 14 CREATININE 0.93 0.95 GLUCOSE 133* 123* . CBC: Recent Labs 01/29/21 0010 01/30/21 0417 WBC 10.3 7.4 HGB 9.2* 9.7* PLT [...] 20 mg by mouth daily Yes Historical ProviderMD doxepin (SINEQUAN) 10 MG capsule Take 25 [...] This note may have been dictated using [employer] Practice Edition 2.6 and/or [employer] Voice Recognition Feature. The document was proofread; however, unrecognized voice recognition coal loader errors may be present. Associated attestation - Victor M Darby MD - 01/30/2021 3:43 PM EDT I independently saw and evaluated the patient - including reviewing the labs, imaging studies, and available documentation. I agree with the findings and plan of care as documented by the resident/POST FRAMER/CUSTOM FURRIER/PA, unless otherwise noted. Please do not hesitate to contact me/us if you have any questions or concerns. Victor M Darby MD FACS * Rashida Shabazz MD - [...] Date 01/29/21 0000 - 01/29/21 2359 Shift 9083-6713 1772-0108 3098-6851 24 Hour Total INTAKE P.O.(mL/kg/hr) 240 240 [...] MG extended release tablet Not taking Historical ProviderMD ALBUTEROL IN Inhale into the lungs 1 puff q6h INHALATION PRN Historical ProviderMD budesonide (PULMICORT) 1 MG/2ML nebulizer suspension Take [...] Pain control with scheduled Tylenol / Dilaudid LACQUER COATER - Pain management following. Appreciate recommendations - [...] This note may have been dictated using [employer] Medical Practice Edition 2.6 and/or [employer] Voice Recognition Feature. The document was proofread; however, unrecognized voice recognition coal loader errors may be present. Associated attestation - Victor M Darby MD - 01/29/2021 12:14 PM EDT I independently saw and evaluated the patient - including reviewing the labs, imaging studies, and available documentation. I agree with the findings and plan of care as documented by the resident/POST FRAMER/CUSTOM FURRIER/PA, unless otherwise noted. Please do not hesitate to contact me/us if you have any questions or concerns. Victor M Darby MD FACS documented in this encounter Hospital Course Note Attestation signed by Victor M Darby MD at 02/01/2021 12:35 PM I independently saw and evaluated the patient - including reviewing the labs, imaging studies, and available documentation. I agree with the findings and plan of care as documented by the resident/POST FRAMER/CUSTOM FURRIER/PA, unless otherwise noted. Please do not hesitate to contact me/us if you have any questions or concerns. Victor M Darby MD FACS Discharge Summary Haleigh Almeida : 1955 Age: 65 y.o. ADMIT DATE: 01/28/2021 DISCHARGE DATE: 01/31/2021 DISCHARGING SURGEON: Victor M Darby MD Office Number: [phone] PRIMARY CARE PHYSICIAN: Radha Odom VISIT STATUS: Admission CODE STATUS: Prior DISCHARGE DIAGNOSES: 1. Right upper lobe lung adenocarcinoma 2. Hx HTN 3. Hx COPD 4. Hx HOWARD 5. Hx CAD 6. Hx Tobacco abuse Body mass index is 23.46 kg/m?. BMI Classi (more content not included)... Chief Complaint and Reason for Visit Chief Complaint Malignant neoplasm o f unspecified part of unspecif FOLLOWUP CT SCAN 10 MO F/U CAD/ASHD Reason for Visit Adenocarcinoma of balwinder ng, stage 1 Shortness of breath Aortocoronary bypass status Atherosclerotic heart disease of port gamble coronary artery without angina pectoris Essential hypertension Nonrheumatic mitral (valve) prolapse Premature ventricular contraction Presence of stent in coronary artery Pure hypercholesterolemia Chief Complaint FOLLOWUP CT SCAN 10 MO F/U CAD/ASHD CAD/ASHD Reason for Visit Adenocarcinoma of balwinder rodrigez, stage 1 Shortness of breath Aortocoronary bypass status Atherosclerotic heart disease of [place] coronary artery without angina pectoris Essential hypertension Nonrheumatic mitral (valve) prolapse Premature ventricular contraction Presence of stent in coronary artery Pure hypercholesterolemia Chief Complaint followup ct scan Shortness of breath OSTEO 6 wk FU ACUTE ANEMIA, NON-STEMI ACUTE ANEMIA, NON-STEMI ACUTE ANEMIA, NON-STEMI ACUTE ANEMIA, NON-STEMI ACUTE ANEMIA, NON-STEMI Reason for Visit Adenocarcinoma of balwinder rodrigez, stage 1 Asthma Shortness of breath COPD (chronic obstructive pulmonary disease) Abnormal cardiac enzyme level Adenocarcinoma of lung, stage 1 Anemia Angina of effort CAD (coronary artery disease) Exertional shortness of breath Microcytic anemia MVP (mitral valve prolapse) Myocardial infarction, silent Aortocoronary bypass status COPD (chronic obstructive pulmonary disease) Essential hypertension History of COPD Premature ventricular contraction Presence of stent in coronary artery Pure hypercholesterolemia Chief Complaint followup ct scan Shortness of breath OSTEO 6 wk FU ACUTE ANEMIA, NON-STEMI ACUTE ANEMIA, NON-STEMI ACUTE ANEMIA, NON-STEMI ACUTE ANEMIA, NON-STEMI ACUTE ANEMIA, NON-STEMI ACUTE ANEMIA, NON-STEMI CHEST PAIN Reason for Visit Adenocarcinoma of balwinder rodrigez, stage 1 Asthma Shortness of breath COPD (chronic obstructive pulmonary disease) Abnormal cardiac enzyme level Adenocarcinoma of lung, stage 1 Anemia Angina of effort CAD (coronary artery disease) Exertional shortness of breath Microcytic anemia MVP (mitral valve prolapse) Myocardial infarction, silent Aortocoronary bypass status COPD (chronic obstructive pulmonary disease) Essential hypertension History of COPD Premature ventricular contraction Presence of stent in coronary artery Pure hypercholesterolemia Chest pain GARRISON (dyspnea on exertion) Non-ST elevation (NSTEMI) myocardial infarction Shortness of breath Chief Complaint followup ct scan Shortness of breath OSTEO 6 wk FU ACUTE ANEMIA, NON-STEMI ACUTE ANEMIA, NON-STEMI ACUTE ANEMIA, NON-STEMI ACUTE ANEMIA, NON-STEMI ACUTE ANEMIA, NON-STEMI ACUTE ANEMIA, NON-STEMI CHEST PAIN CHEST PAIN CHEST PAIN CHEST PAIN CHEST PAIN CHEST PAIN Reason for Visit Adenocarcinoma of balwinder rodrigez, stage 1 Asthma Shortness of breath COPD (chronic obstructive pulmonary disease) Abnormal cardiac enzyme level Adenocarcinoma of lung, stage 1 Anemia Angina of effort CAD (coronary artery disease) Exertional shortness of breath Microcytic anemia MVP (mitral valve prolapse) Myocardial infarction, silent Aortocoronary bypass status COPD (chronic obstructive pulmonary disease) Essential hypertension History of COPD Premature ventricular contraction Presence of stent in coronary artery Pure hypercholesterolemia Anemia CAD (coronary artery disease) Chest pain GARRISON (dyspnea on exertion) GI bleed MVP (mitral valve prolapse) Non-ST elevation (NSTEMI) myocardial infarction Primary lung adenocarcinoma Shortness of breath Worsening angina Aortocoronary bypass status COPD (chronic obstructive pulmonary disease) Essential hypertension Presence of stent in coronary artery Pure hypercholesterolemia Chief Complaint Shortness of breath OSTEO 6 wk FU ACUTE ANEMIA, NON-STEMI ACUTE ANEMIA, NON-STEMI ACUTE ANEMIA, NON-STEMI ACUTE ANEMIA, NON-STEMI ACUTE ANEMIA, NON-STEMI ACUTE ANEMIA, NON-STEMI CHEST PAIN CHEST PAIN CHEST PAIN CHEST PAIN CHEST PAIN CHEST PAIN CHEST PAIN CHEST PAIN PTCA C34.90 Reason for Visit Asthma Shortness of breath Anemia CAD (coronary artery disease) Exertional shortness of breath Microcytic anemia MVP (mitral valve prolapse) Essential hypertension Premature ventricular contraction Abnormal cardiac enzyme level Anemia CAD (coronary artery disease) Chest pain GARRISON (dyspnea on exertion) GI bleed MVP (mitral valve prolapse) Non-ST elevation (NSTEMI) myocardial infarction Primary lung adenocarcinoma Shortness of breath Worsening angina Essential hypertension Atherosclerotic heart disease of [place] coronary artery without angina pectoris Essential hypertension Nonrheumatic mitral (valve) prolapse Premature ventricular contraction Chief Complaint OSTEO 6 wk FU ACUTE ANEMIA, NON-STEMI ACUTE ANEMIA, NON-STEMI ACUTE ANEMIA, NON-STEMI ACUTE ANEMIA, NON-STEMI ACUTE ANEMIA, NON-STEMI ACUTE ANEMIA, NON-STEMI CHEST PAIN CHEST PAIN CHEST PAIN CHEST PAIN CHEST PAIN CHEST PAIN CHEST PAIN CHEST PAIN PTCA C34.90 4 month f/u review CT SHORTNESS OF BREATH SHORTNESS OF BREATH SHORTNESS OF BREATH SHORTNESS OF BREATH Reason for Visit Anemia CAD (coronary artery disease) Exertional shortness of breath Microcytic anemia MVP (mitral valve prolapse) Essential hypertension Premature ventricular contraction Abnormal cardiac enzyme level Anemia CAD (coronary artery disease) Chest pain GARRISON (dyspnea on exertion) GI bleed MVP (mitral valve prolapse) Non-ST elevation (NSTEMI) myocardial infarction Primary lung adenocarcinoma Shortness of breath Worsening angina Essential hypertension Atherosclerotic heart disease of [place] coronary artery without angina pectoris Essential hypertension Nonrheumatic mitral (valve) prolapse Premature ventricular contraction Primary lung adenocarcinoma Chief Complaint LAB AND XRAY EORDER abdominal pain Additional Source Comments INFORMATION SOURCE (unrecogn ized section and content) DATE CREATED AUTHOR 05/03/2018 [facility] DATE CREATED AUTHOR AUTHOR'S ORGANIZ ATION 01/07/2019 [facility] DATE CREATED AUTHOR AUTHOR'S ORGANIZ ATION 01/07/2019 [facility] DATE CREATED AUTHOR AUTHOR'S ORGANIZ ATION 10/30/2019 [facility] DATE CREATED AUTHOR AUTHOR'S ORGANIZ ATION 04/29/2020 [facility] ([place] DATE CREATED AUTHOR AUTHOR'S ORGANIZ ATION 02/04/2021 [facility] DATE CREATED AUTHOR AUTHOR'S ORGANIZ ATION 02/06/2021 [facility] DATE CREATED AUTHOR AUTHOR'S ORGANIZ ATION 01/23/2023 [facility] DATE CREATED AUTHOR AUTHOR'S ORGANIZ ATION 07/02/2025 [facility] Ordered Prescriptions (unrec ognized section and content) Prescription Sig Dispensed Refills Start Date End Da te polyethylene glycol (GLYCOLAX) 17 GM/SCOOP powder Take 17 g by mouth daily as needed (Constipation) 510 g 0 01/28/2021 02/27/2021 oxyCODONE-acetaminophen (PERCOCET) 5-325 MG per tabletIndications:Right upper lobe pulmonary nodule Take 1 tablet by mouth every 6 hours as needed for Pain for up to 7 days. Intended supply: 7 days. Take lowest dose possible to manage pain 28 tablet 0 01/28/2021 02/04/2021 Goals (unrecognized section and content) Goals may be documented in a n alternate sectionGoals may be documented in an alternate sectionGoals may be documented in an alternate sectionGoals may be documented in an alternate sectionGoals may be documented in an alternate section Care Teams (unrecognized sec tion and content) Team Status: Active Member Role Status Dates Dr. Phani Odom MD Family Provider Active Dr. Phani Odom MD Primary Care Provider Activ e Team Status: Inactive Member Role Status Dates Dr. Phani Odom MD Primary Care Provider, [facility]te [facility] Provider Active Team Status: Inactive Member Role Status Dates Dr. Phani Odom MD Primary Care Provider Activ e Dr. Nivia Campoverde MD Emergency Provider Active Team Status: Active Member Role Status Dates Dr. Phani Odom MD Primary Care Provider, Attending Provider, Referring Provider Active Team Status: Inactive Member Role Status Dates Dr. Phani Odom MD Primary Care Provider, Attending Provider, Referring Provider Active Boiler Reliner Relationship Specialty Start Date End Date Radha Odom [address] [facility] [address] [place] [address] PCP - General 12/31/20 Shawnee Corona, MARIA TERESA Nurse Navigator Oncology 10/04/22 Reason for Visit (unrecogniz ed section and content) Reason Comments Nurse Navigation FOR RECORDS PERTAINING TO PATIENTS WHO ARE [...] BE BASED ON THE PRIMARY CLINICAL RECORDS. [employer] provides no warranty or guarantee of the accuracy or completeness of information in this document.
[2025-07-07 17:13] LABS: D-Dimer Quantitative (DVT/PE) 0.99 FEU/ug/m (0.27-0.49)
[2025-07-07 17:14] LABS: Anion Gap 14 (5-15); BUN 11 mg/dL (4-19); BUN/Creat Ratio 13.8 RATIO (10-20); Calcium,Total 8.7 mg/dL (7.6-11.0); Carbon Dioxide 21.2 mmol/L (21.0-32.0); Chloride 99 mmol/L (98-108); Glucose 186 mg/dL (70-99); Potassium 3.9 mmol/L (3.3-5.1)
--- NOTE | 2025-07-07 17:15 | RAD_ITS ---
PROCEDURE: CHEST PA AND LATERAL 07/07/2025 REASON FOR EXAM: CHEST PAIN TECHNIQUE: Procedure Code: RADCXR Modality: DX Procedure: CHEST PA AND LATERAL COMPARISON: November 28, 2024 FINDINGS: Hardware: Lower cervical spine fusion. Prior median sternotomy and CABG. Heart: Enlarged. Lungs: No consolidation or new mass. Scarring in the inferior lateral right upper lobe similar to prior chest CT. Bones: Degenerative changes are identified within the thoracic spine. RAD/Chest PA and Lateral IMPRESSION: Cardiac enlargement. Posttreatment changes right upper lobe similar to prior. No acute abnormality Reading Location: [id number]
[2025-07-07 17:21] LABS: Troponin T High Sensitivity 54 ng/L (<=14)
--- NOTE | 2025-07-07 17:45 | CT_ITS ---
PROCEDURE: CTA CHEST W/WO CONTRAST 07/07/2025 REASON FOR EXAM: SHORT OF BREATH WITH ELEVATED D-DIMER. HISTORY OF lung cancer TECHNIQUE: Procedure Code: [id number] Modality: CT Procedure: CTA CHEST W/WO CONTRAST Multiplanar Sagittal and Coronal images were obtained. 3D post processing was performed CONTRAST: Isovue 370 VOLUME: 81 mL One or more dose reduction techniques were used (e.g., Automated exposure control, adjustment of the mA and/or kV according to patient size, use of iterative reconstruction technique). RADIATION DOSE SUMMARY: CTDlvol: 11 mGy DLP: 207 mGycm COMPARISON: November 28, 2024 # of known CTs in the past 12 months: 2 # of known Cardiac Nuclear Medicine Studies in the past 12 months: 0 FINDINGS: Thoracic Aorta: No evidence of aortic rupture or dissection. Moderate atherosclerotic plaque. Branching pattern of the aortic arch is conventional. Heart: Prior median sternotomy and CABG. Heart is enlarged. No pericardial effusion. Pulmonary Vessels: The timing and quality of the contrast bolus is diagnostic. There is no evidence of acute or chronic pulmonary embolus. Lymph nodes: Interval increase in size of right upper paratracheal and right lower paratracheal lymph nodes with the largest at the right lower paratracheal (4R) measuring at least 2.7 x 4.2 cm. AP window (level 5) lymph node is 1.0 x 1.2 cm. Subcarinal (level 7) lymph node is 3.2 x 2.1 cm. Lungs and Airways: Mild interstitial edema is present with smooth interlobular septal thickening. Architectural distortion, volume loss, scarring in the periphery of the inferior right upper lobe and contiguous portions of the superior segment are similar to prior. Dependent subsegmental atelectasis. Pleura: Scant pleural fluid at the lung bases. Upper Abdomen: Left adrenal adenoma unchanged. Bones: Degenerative changes of the thoracic spine. CT/CTA Chest W/WO Contrast IMPRESSION: 1. Posttreatment changes right upper lobe and adjacent superior segment simila r to prior. 2. Progression of disease to involve the following lymph node levels: Right up per paratracheal (2R), lower paratracheal (4R), subcarinal (7), and AP window (5). 3. New mild interstitial edema and scant pleural fluid with minimal bibasilar subsegmental atelectasis. 4. No acute or chronic pulmonary embolus. No acute aortic syndrome. 5. Prior median sternotomy and CABG. Reading Location: [id number]
--- NOTE | 2025-07-07 18:07 | HP.PCM.HOS_ITS ---
[facility] - General General Date of Admission: 07/07/25 Date of Service: 07/07/25 Chief Complaint: Shortness of breath for last 3 to 4 days, low hemoglobin. [facility] Narrative TEODORO ALMEIDA, is a 70 F with history of chronic severe anemia, required multiple transfusion came to ED with shortness of breath worsening for last 3 to 4 days. She is short of breath even at rest with more dyspnea on exertion/mild activity of daily living. Denies chest pain pressure or tightness. She stated that she gets short of breath when her hemoglobin is low. Furthermore, she she says she has history of GI bleed even if stool for occult blood is negative. Last occult blood was checked on 06/13/2025 and was negative. In ED, her heart rate is variable and she states it is usual for her with PVCs. Denies prior history of PE/DVT although her 2 sisters and father has factor V Leiden and history of DVT. CTPA was done for elevated D-dimer and is negative for acute or chronic PE. Patient is further admitted. [facility] Medical History (Updated 07/07/25 @ 18:[address] Ortiz Zhou MD) Osteoporosis Cirrhosis Myocardial infarct Coronary artery disease Wears glasses Loose, teeth Cancer Depression Bladder disease History of steroid therapy Arthritis High cholesterol Restless legs History of GI bleed On home oxygen therapy Smoker Sleep apnea History of echocardiogram History of stress test Cardiology follow-up encounter GERD (gastroesophageal reflux disease) Lung cancer Anxiety Atherosclerotic heart disease of [place] coronary artery with unstable angina pectoris Chest pain Congestive heart failure History of COPD Anemia Angina of effort Myocardial infarction, silent Adenocarcinoma of lung, stage 1 Lung cancer Melanoma Pure hypercholesterolemia Worsening angina Chest pain, unspecified HOWARD (obstructive sleep apnea) Osteoarthritis DDD (degenerative disc disease) Premature ventricular contraction Pericardial effusion Atherosclerotic heart disease of [place] coronary artery without angina pectoris Nonrheumatic mitral (valve) prolapse Tobacco abuse Essential hypertension Home Medications ?Medication ?Instructions ?Recorded ?Last Taken ?Type omeprazole 20 mg capsule,delayed 20 mg PO DAILY acid r eflux 02/04/16 12/27/24 History release albuterol sulfate 90 mcg/actuation 1 puff inhalation Q 6H PRN Sob &/Or 07/28/20 06/14/22 History aerosol inhaler Wheezing ipratropium 0.5 mg-albuterol 3 mg 3 ml inhalation Q4H PRN shortness 12/29/20 06/08/22 Rx (2.5 mg base)/3 mL nebulization of breath or wheezing #180 mL soln nebulizer and compressor #1 ea 06/11/22 Unknown Rx primidone 50 mg tablet 150 mg PO QHS seizures 30 da ys #90 01/10/24 12/27/24 History tabs prazosin 2 mg capsule 2 mg PO QHS blood pressure 0 01/12/24 12/27/24 History budesonide 1 mg/2 mL suspension 1 mg (2 mL) inhalation BID 02/03/24 Unknown Rx for nebulization BREATHING #60 mL nitroglycerin 0.4 mg sublingual 0.4 mg sublingual Q5M PRN Chest 02/08/24 Unknown Rx tablet Pain #25 tabs metoprolol succinate 25 mg 12.5 mg (1/2 x 25 mg) PO DA MARI 02/13/24 12/27/24 Rx tablet,extended release 24 hr blood pressure #45 TABLE TS sertraline 100 mg tablet 150 mg PO DAILY mood 4 12/27/24 History furosemide 20 mg tablet (Lasix) 20 mg PO BID diuretic #90 tabs 04/02/25 Unknown Rx isosorbide mononitrate 30 mg 30 mg PO DAILY #30 tabs 0 06/14/25 Unknown Rx tablet,extended release 24 hr Allergy/AdvReac Type Severity Reaction Status Date / Time Iodinated Contrast Media Allergy Hives Verified 07/07/25 16:36 (Iodinated Contrast Media - IV Dye) mesalamine (From Asacol) Allergy GASTRIC Verified 07/07/25 16:36 HEMORRHAGE tetracycline (Tetracycline) Allergy Hives Verified 07/07/25 16:36 pravastatin AdvReac Intermediate Upset Verified 07/07/25 16:36 Stomach atorvastatin (From Lipitor) AdvReac myalgia Verified 07/07/25 16:36 Family History Father Hypertension Colon cancer Alcoholism Mother Cancer LUNG CANCER/ SMOKER Father , MELANOMA No problems noted. Surgical History History of coronary artery stent placement History of cardiac catheterization History of cervical spinal surgery S/P partial lobectomy of lung interstim placement (~09/29/20) Presence of coronary angioplasty implant and graft (~03/12/18) History of cataract surgery History of abdominal surgery History of total hysterectomy History of cholecystectomy History of bowel resection Hx of appendectomy Presence of stent in coronary artery (~06/15/22) Aortocoronary bypass status (~05/12/04) Postsurgical percutaneous transluminal coronary angioplasty (PTCA) status (~03/12/18) Social History adopted: No housing: house number of children: 1 current occupational status: retired current occupational exposures/hazards: No Smoking Status: Current every day smoker tobacco type: cigarettes Tobacco: How many years used: 50 how long ago did patient quit smokin weeks ago alcohol intake: never substance use type: does not use caffeine: Yes Type: carbonated beverages Number of servings: 2 ROS ROS Narrative Constitutional: Reports acute onset of fatigue and weakness. No fever. HEENT: Reports systems reviewed and no addt'l complaints, except as documented Respiratory/Chest: History of lung cancer. Mild left lower posterior chest, sharp pain on coughing/deep breathing. COPD on as needed inhaler/DuoNeb. CVS: No chest pressure or tightness. Gastrointestinal: Denies coffee ground emesis, hematemesis or vomiting Genitourinary: Denies burning urination or new urinary tract symptoms Musculoskeletal: Denies acute joint pain or limited range of motion. No acute injury Neurologic: Denies seizure-like symptoms. skin: No ulcer. No rash Endocrinology: Reports systems reviewed and no addt'l complaints, except as documented Hematologic/Lymphatic: Reports systems reviewed and no addt'l complaints, except as documented Rest 14 ROS are negative except as mentioned in HPI Vital Signs Vital Signs Vital Signs: 07/07/25 16:32 07/07/25 16:42 07/07/25 16:50 Temperature 97.9 F Temperature Source Temporal Pulse Rate 96 Respiratory Rate 22 H Blood Pressure 124/98 H Blood Pressure Mean 106 Pulse Ox 100 Oxygen Delivery Method Room Air 07/07/25 17:10 07/07/25 17:12 07/07/25 17:15 Temperature Temperature Source Pulse Rate 88 91 92 Respiratory Rate 21 H 24 H 25 H Blood Pressure Blood Pressure Mean Pulse Ox 97 98 96 Oxygen Delivery Method 07/07/25 17:30 07/07/25 17:32 07/07/25 17:32 Temperature Temperature Source Pulse Rate 88 89 Respiratory Rate 24 H 23 H Blood Pressure 140/76 H 140/76 H Blood Pressure Mean 93 93 Pulse Ox 98 99 Oxygen Delivery Method 07/07/25 17:32 07/07/25 17:45 07/07/25 18:00 Temperature Temperature Source Pulse Rate 96 Respiratory Rate 23 H 9 L Blood Pressure 140/76 H 133/68 H Blood Pressure Mean 93 83 Pulse Ox 100 100 Oxygen Delivery Method Physical Exam Narrative General: Alert, Oriented x3, Cooperative. HEENT: Atraumatic, PERRLA, EOMI, Normocephalic. Oral: Oral mucosa dry. No Gingival or Mucosal Lesions/ Ulcerations Neck: Supple, No JVD, Negative Carotid Bruits Chest wall/Lungs: Air entry diminished in bilateral lung bases. No crepitation/rhonchi. No tenderness on palpation of chest wall anteriorly or posteriorly. Cardiovascular: Irregular rhythm, PVCs, sinus rhythm. No M/G/R Abdomen: Bowel Sounds Present, Soft, Non Tender, Non-Distended : No dysuria. No renal angle tenderness. No suprapubic tenderness. Extremities: No edema, Capillary Refill Less than 3 Seconds Skin: No rashes, No breakdown Musculoskeletal: No Tenderness to Palpation of Joints or Extremities Neurological: Cranial nerves II-XII grossly intact, DTR 2+/4. No acute focal neurological deficit. Psych/Mental Status: Normal Affect, Appropriate. Results Lab / Micro Data 07/07/25 16:43 07/07/25 16:43 Labs: Laboratory Results - last 24 hr 07/07/25 16:43: WBC 6.6, RBC 3.15 L, Hgb 7.8 L, Hct 25.8 L, MCV 81.9, MCH 24.8 L , MCHC 30.2 L, RDW Std Deviation 50.4 H, RDW Coeff of Kit 17.5 H, Plt Count 227, MPV 10.6, Immature Gran % (Auto) 0.300, Neut % (Auto) 70.4 H, Lymph % (Auto) 17.9 L, Mclean % (Auto) 9.9, Eos % (Auto) 0.9, Baso % (Auto) 0.6, Absolute Neuts (auto) 4.6, Absolute Lymphs (auto) 1.18, Nucleated RBC % 0, D-Dimer Quant (PE/DVT) 0.99 H*, Sodium 134, Potassium 3.9, Chloride 99, Carbon Dioxide 21.2, Anion Gap 14, BUN 11, Creatinine 0.78, Est GFR (MDRD) Non-Af 83, BUN/Creatinine Ratio 13.8, Glucose 186 H, Calcium 8.7, Troponin T High Sens 54 H* D, Blood Type A POSITIVE, Antibody Screen NEGATIVE Micro: Microbiology 07/07/25 16:48 Mucosa - Nose SARS-CoV-2, Influenza & RSV (PCR) - Final Rhythm Strip Rhythm Strip: Sinus Tach Rate: 114 Ectopy: None Imaging Radiology Impression Chest X-Ray 07/07/25 17:15 IMPRESSION: Cardiac enlargement. Posttreatment changes right upper lobe similar to prior. No acute abnormality Reading Location: [facility] Assessment & Plan Assessment/Plan (1) Symptomatic anemia: PLAN: Plan This is a 62-year-old female being admitted for symptomatic anemia with shortness of breath at rest, worse on exertion. 1. Symptomatic severe anemia with shortness of breath/dyspnea on exertion: Patient is being admitted in PCU. 2 units of packed red crossmatched ordered by ER physician but will transfuse 1 unit today. H&H 7.8/25.8%. Platelet count 227K. Denies abdominal pain or overt GI bleed. D-dimer was elevated. CTPA was done after IV Solu-Medrol for IV contrast allergy. It is negative for acute or chronic PE. Posttreatment changes after radiotherapy, chronic. New mild interstitial edema and scant pleural fluid and minimal bibasilar subsegmental atelectasis. Triple PCR for SARS-CoV-2, flu and RSV are negative 2. History of GI bleed in past: Patient had colonoscopy and EGD in December 2024 reported diverticulosis in rectosigmoid and sigmoid colon. 8 mm polyp at the splenic flexure removed. EGD reported small hiatus hernia, acute gastritis with hemorrhage biopsied. Normal esophagus. Was negative for H. pylori. Gastric body biopsy shows focal superficial mucosal hemorrhage with mild chronic inflammation. She also also found angiodysplastic lesion in colon and required cauterization in 2021 3. Chronic lung cancer with history of COPD: Patient had radiotherapy by Dr. Rhodes. CTPA shows progression of disease to involve following lymph nodes, right upper paratracheal, lower paratracheal, subcarinal and AP window. Advised follow-up with radiation oncologist Dr. Rhodes as an outpatient. Patient follows in pulmonary clinic. Continue maintenance budesonide inhalation and DuoNeb as needed. Patient and her daughter does not think that she follows with medical oncologist. I think she she should follow medical oncologist. 4. Chronic hypoxic respiratory failure: Patient uses 2 L of oxygen with scheduled at night. 5. Coronary artery disease: Continue home cardiac medications. She has history of PCI/stent and CABG in the past. Denies pacemaker. Twelve-lead EKG shows NSR with PVCs at 114 bpm. QTc 488 ms. 6. Hypertension - Blood pressure controlled, home medications continued with dose adjustment as needed with BP monitoring 7. Chronic diastolic congestive heart failure/HFpEF with chronic MR: Patient does not have leg edema. CTPA shows new mild interstitial edema. Currently does not have signs and symptoms of acute heart failure. Furosemide 20 mg IV ordered during blood transfusion. Continue baseline home furosemide oral 20 mg twice daily from tomorrow a.m. Monitor fluid status 2D echo October 2024 Interpretation Summary Normal LV size. Left ventricular systolic function is normal. The left ventricular ejection fraction is 60 %. Moderate (2+) eccentric mitral valve insufficiency. 8. Obstructive sleep apnea: Patient does not use his CPAP but only oxygen 2 L at night. 9. Chronic depression with anxiety: Continue home medication. On sertraline DVT prophylaxis, high risk: Pharmacological prophylaxis contraindicated. Bilateral SCDs. Living will/advanced directive/end of life care: Patient does have living will or advanced directive. Her daughter, Tracey present in the ED is power of contract attorney for health. After discussion of benefits/risks procedures involved with full code, DNR CC arrest and DNR CC, the patient opted for full code. Patient does want artificial life support including intubation, tube feed, ventilator and/chest compression, central venous catheter, vasopressor and DC shock if needed Total time spent in [id number] encounter in discussion of advanced directive 17 minutes. Microbiology Past 72 Hours 07/07/25 16:48 Mucosa - Nose SARS-CoV-2, Influenza & RSV (PCR) - Final Laboratory Results 07/07/25 16:43: WBC 6.6, RBC 3.15 L, Hgb 7.8 L, Hct 25.8 L, MCV 81.9, MCH 24.8 L , MCHC 30.2 L, RDW Std Deviation 50.4 H, RDW Coeff of Kit 17.5 H, Plt Count 227, MPV 10.6, Immature Gran % (Auto) 0.300, Neut % (Auto) 70.4 H, Lymph % (Auto) 17.9 L, Mclean % (Auto) 9.9, Eos % (Auto) 0.9, Baso % (Auto) 0.6, Absolute Neuts (auto) 4.6, Absolute Lymphs (auto) 1.18, Nucleated RBC % 0, D-Dimer Quant (PE/DVT) 0.99 H*, Sodium 134, Potassium 3.9, Chloride 99, Carbon Dioxide 21.2, Anion Gap 14, BUN 11, Creatinine 0.78, Est GFR (MDRD) Non-Af 83, BUN/Creatinine Ratio 13.8, G lucose 186 H, Calcium 8.7, Troponin T High Sens 54 H* D, Blood Type A POSITIVE, Antibody Screen NEGATIVE Clinical Impression(s) from Imaging Studies Chest X-Ray 07/07/25 17:15 IMPRESSION: Cardiac enlargement. Posttreatment changes right upper lobe similar to prior. No acute abnormality Chest CTA 07/07/25 17:45 IMPRESSION: 1. Posttreatment changes right upper lobe and adjacent superior segment similar to prior. 2. Progression of disease to involve the following lymph node levels: Right upper paratracheal (2R), lower paratracheal (4R), subcarinal (7), and AP window (5). 3. New mild interstitial edema and scant pleural fluid with minimal bibasilar subsegmental atelectasis. 4. No acute or chronic pulmonary embolus. No acute aortic syndrome. 5. Prior median sternotomy and CABG. Charges/Coding Visit Charges Inpatient E&M: 92063 Init Hosp L3 Procedures Hospitalists Procedures: 84633 Advncd Care Plan 30 Min
--- OUTSIDE RECORDS SUMMARY | 2025-07-07 18:24 | XMS RPT_ITS | CCD ---
Author Organization [facility] Care Team Providers Care Battery Assembler Dry Cell Name Role Phone REFERRING, PIPPA PAYAN JEFF Unavailable Unavailable RADHA ODOM Unavailable Unavailable ARLIN CRUZ Unavailable Unavailable RADHA ODOM Unavailable Unavailable HANNAH HERNANDES Attending Unavailable RADHA MAHAN Attending Unava ilable Radha Odom Primary Care Provider Radha Odom Primary Care Provider Dr. Phani Odom Primary Care Provider [phone] Dr. Phani Odom Referring Provider Dr. Honorio Rhodes Attending Provider Dr. Stephon Castro Attending Provider Dr. Stephon Castro Referring Provider Dr. Phani Odom Primary Care Provider Dr. Honorio Rhodes Attending Provider [phone] Jose CHURN DRILLER, CHURN DRILLER-C Tracey Attending Provider Jose CHURN DRILLER, CHURN DRILLER-C Tracey Referring Provider Dr. Phani Odom Referring [...] Unavailable Dr. Larry Burnham Attending Provider Elva CHURN DRILLER, CHURN DRILLER-C Hannah Obrien Attending Provider Dr. Phani Odom Primary Care Provider Jose CHURN DRILLER, CHURN DRILLER-C Tracey Attending Provider Dr. Honorio Rhodes Attending Provider [phone] Jose CHURN DRILLER, CHURN DRILLER-C Tracey Referring Provider Jose CHURN DRILLER, CHURN DRILLER-C Tracey Other Provider Dr. Rui Garcia Attending Provider Radha Odom B Primary Care Provider Shawnee Corona RN Unavailable Unavailable Radha Odom Referring Unavailable Ilene, Radha Primary Care Unavailable Elva CHURN DRILLER, Hannah Obrien Attending Unavailable Ilene, Radha Primary Care Unavailable Ilene, Radha Referring Unavailable Nivia Moore Attending Unavailable Jevon Bustillo Referring Unavailable Danny Houser Attending Unavailable Ilene, Christjos Primary Care Unavailable Ranuvaldo, Christjareter Referring Unavailable Ranuvaldo, Christopher Primary Care Unavailable Friend, Tanner Consulting Unavailable Friend, Tanner Attending Unavailable Nivia Moore Attending Unavailable OscarBhargaviNivia Referring Unavailable [place], Christopher Primary Care Unavailable [place] Unavailable [place], Christjareter Attending Unavailable [place], Christopher Referring Unavailable White, Veronique L Admitting Unavailable White, Veronique L Consulting Unavailable White, Veronique L Attending Unavailable [place], Christopher Primary Care Unavailable Jopperi, Jevon Attending Unavailable Jopperi, Jevon Consulting Unavailable Larry Brunham Attending Unavailable [facility], [facility] Primary Care Unavailable [place], Christopher Referring Unavailable [place], [facility] Primary Care Unavailable Nivia Moore Attending Unavailable Honorio Rhodes Attending Unavailable [place], Christopher Referring Unavailable [place], [facility] Primary Care Unavailable [place], Christopher Referring Unavailable Nivia Moore Attending Unavailable [facility], [facility] Primary Care Unavailable Cristina Giraldo Attending Unavailable [facility], [facility] Primary Care Unavailable [place], Christopher Referring Unavailable [place], [facility] Primary Care Unavailable Elva CRUZ, Hannah Obrien Attending Unavailable Bhargavi Moorefer Referring Unavailable Nivia Moore Attending Unavailable [place], [facility] Primary Care Unavailable Honorio Rhodes Attending Unavailable Honorio Rhodes Referring Unavailable [place], [facility] Primary Care Unavailable [place], Christopher Referring Unavailable [facility], [facility] Primary Care Unavailable [place], Christopher Attending Unavailable Jopperi, Jevon Admitting Unavailable [place], Christopher Primary Care Unavailable Diego Nichole Attending Unavailable Jopperi, Jevon Consulting Unavailable Diego Nichole Consulting Unavailable Danny Houser Attending Unavailable Jopperi, Jevon Attending Unavailable [place], Christopher Primary Care Unavailable Jopperi, Jevon Attending Unavailable White, Veronique L Admitting Unavailable White, Veronique L Consulting Unavailable [place], Christopher Primary Care Unavailable [place], Christopher Referring Unavailable [place], [facility] Unavailable Tanner Beasley Attending Unavailable [facility], [facility] Primary Care Unavailable Hannah Stevenson NP Attending [...] to adverse reactions to drug (disorder) 7 [facility] (1 source) Naproxen; Translations: [NAPROXEN] Drug Allergy 8 [facility] (1 source) Tetracyclines; Translations: [TETRACYCLINES] Propensity to adverse reactions to drug (disorder) 7 [facility] (2 sources) atorvastatin Drug [...] (11 sources) atorvastatin Drug Allergy 2 myalgia [facility] (11 sources) Tetracycline Drug Allergy 2 [facility] (12 sources) Iodinated Contrast Media; Translations: [Iodinated Contrast Media] Allergy to substance 2 Other, [facility] (1 source) atorvastatin Drug Allergy 5 [facility] (1 source) mesalamine Drug Allergy 5 [facility] (1 source) Pravastatin Drug Allergy 5 [facility] (1 source) Tetracycline Drug Allergy 5 [facility] Medications Current Medications Medication Drug Class(es) [...] 01, 2018 1:00am December 26, 2018 9:54am [id number] 200 actuat albuterol 0.09 mg/actuat metered dose [...] April 21, 2015 1:25pm polyethylene glycol 3350 59066 mg powder for oral solution (2 sources) [...] 2018 12:00am take 2 tablets by mo [facility] once daily, then take 2 tablets by [...] 04, 2016 12:00am May 17, 2018 3:24pm Aylgnkpepkc-Brdtzyrxg-O ilanter (11 sources) Anticholinergic, Corticosteroid, beta2-Adrenergic Agonist Start: 11-06-2020 End: 12-26-2020 Fdctufkohli-Ancksudco-Q ilanter (Trelegy Ellipta) 100-62.5-25 mcg blister with device Discontinued 1 INH INHALATION DAILY 60 November 06, 2020 12:33pm December 26, 2020 3:00pm Start: 11-06-2020 End: 12-26-2020 Kkiaehquvcv-Kiniijibj-Dvpalg er (Trelegy Ellipta) 100-62.5-25 mcg blister with [...] in sodium chloride 0.9 % 30 mL [facility]AL [place] [employer] (1 source) Start: 01-28-2021 End: 01-29-2021 HYDROmorphone (DILAUDID) 30 mg in sodium chloride 0.9 % 30 mL [employer] [place] [employer] 24 hr isosorbide mononitrate 30 mg extended [...] Coronary arteriosclerosis; Translations: [Atherosclerotic heart disease of algaaciq coronary artery without angina pectoris] Onset: 5 [...] L501.5101on 06-27-2025 GGTP 51 IU/L Normal 0-60 [facility] Comment on above: Order Comment: Order Date: 06/25/25Order Info: 2324-2 - GGTP Result Comment: Perf ormed at: - [facility] [address] [id number] Incident Response Consultant: Handy Guerrero PhD, Phone: [phone] Performed By: #### L 302.0444, K251.4075, R101.7306, J905.1910 #### [facility] [place], [address] CBC W/Diff, Automatedon 06-07 Absolute Lymph 1.25 X10 3/uL Normal 0.83-4.51 [facility] Comment on above: Order Comment: Order Date: 06/25/25Order Info: 018- - CBCDOrder Info: 4679-7 - RETIC Performed By: #### L 503.6075, L100.0100, L503.6550, L503.6150 #### [facility] [address] [place], [address] Absolute Neut 5.4 X10 3/uL Normal 2.0-7.7 [facility] Comment on above: Order Comment: Order Date: 06/25/25Order Info: 183-11 - CBCDOrder Info: 4679-7 - RETIC Performed By: #### L 503.6075, L100.0100, L503.6550, L503.6150 #### [facility] [address] [place], [address] Basophils/100 WBC (Bld) 0.5 % Normal 0-1 [facility] Comment on above: Order Comment: Order Date: 06/25/25Order Info: 01802-05 - CBCDOrder Info: 4679-7 - RETIC Performed By: #### L 503.6075, L100.0100, L503.6550, L503.6150 #### [facility] [address] [place], [address] Eosinophils/100 WBC (Bld) 1.2 % Normal 0-5 [facility] Comment on above: Order Comment: Order Date: 06/25/25Order Info: 01802-05 - CBCDOrder Info: 4679-7 - RETIC Performed By: #### L 503.6075, L100.0100, L503.6550, L503.6150 #### [facility] [address] [place], [address] Erythrocyte distribution width (RBC) [Ratio] 15.9 % High 11.6-14.6 [facility] Comment on above: Order Comment: Order Date: 06/25/25Order Info: 0184-1 - CBCDOrder Info: 4679-7 - RETIC Performed By: #### L 503.6075, L100.0100, L503.6550, L503.6150 #### [facility] [address] [place], [address] Hematocrit (Bld) [Volume fraction] 30.0 % Low 37-47 [facility] Comment on above: Order Comment: Order Date: 06/25/25Order Info: 018- - CBCDOrder Info: 4679-7 - RETIC Performed By: #### L 503.6075, L100.0100, L503.6550, L503.6150 #### [facility] [address] [place], [address] Hemoglobin (Bld) [Mass/Vol] 9.2 g/dL Low 12.0-15.0 [facility] Comment on above: Order Comment: Order Date: 06/25/25Order Info: 018- - CBCDOrder Info: 4679-7 - RETIC Performed By: #### L 503.6075, L100.0100, L503.6550, L503.6150 #### [facility] [address] [place], [address] IG% 0.300 Normal 0.0-0.9 [facility] Comment on above: Order Comment: Order Date: 06/25/25Order Info: 0184-1 - CBCDOrder Info: 4679-7 - RETIC Result Comment: IG% - Immature Granulocytes (promyelocytes, myelocytes and metamyelocytes) > 1% indicates that a LEFT SHIFT is Present. Performed By: #### L 503.6075, L100.0100, L503.6550, L503.6150 #### [facility] [address] [place], [address] Lymphocytes/100 WBC (Bld) 16.8 % Low 19-41 [facility] Comment on above: Order Comment: Order Date: 06/25/25Order Info: 018- - CBCDOrder Info: 4679-7 - RETIC Performed By: #### L 503.6075, L100.0100, L503.6550, L503.6150 #### [facility] [address] [place], [address] MCH (RBC) [Entitic mass] 25.1 pg Low 27.0-32.0 [facility] Comment on above: Order Comment: Order Date: 06/25/25Order Info: 018- - CBCDOrder Info: 4679-7 - RETIC Performed By: #### L 503.6075, L100.0100, L503.6550, L503.6150 #### [facility] [address] [place], [address] MCHC (RBC) [Mass/Vol] 30.7 g/dL Low 32-36 [facility] Comment on above: Order Comment: Order Date: 06/25/25Order Info: 018- - CBCDOrder Info: 4679-7 - RETIC Performed By: #### L 503.6075, L100.0100, L503.6550, L503.6150 #### [facility] [address] [place], [address] MCV (RBC) [Entitic vol] 82.0 fL Normal 81-99 [facility] Comment on above: Order Comment: Order Date: 06/25/25Order Info: 018- - CBCDOrder Info: 4679-7 - RETIC Performed By: #### L 503.6075, L100.0100, L503.6550, L503.6150 #### [facility] [address] [place], [address] Monocytes/100 WBC (Bld) 9.3 % Normal 0-10 [facility] Comment on above: Order Comment: Order Date: 06/25/25Order Info: 0184- - CBCDOrder Info: 4679-7 - RETIC Performed By: #### L 503.6075, L100.0100, L503.6550, L503.6150 #### [facility] [address] [place], [address] Neutrophils/100 WBC (Bld) 71.9 % High 47-70 [facility] Comment on above: Order Comment: Order Date: 06/25/25Order Info: 018- - CBCDOrder Info: 4679-7 - RETIC Performed By: #### L 503.6075, L100.0100, L503.6550, L503.6150 #### [facility] [address] [place], [address] Nucleated RBC (Bld) [#/Vol] 0 10*3/uL Normal 0-5 [facility] Comment on above: Order Comment: Order Date: 06/25/25Order Info: 018- - CBCDOrder Info: 4679-7 - RETIC Performed By: #### L 503.6075, L100.0100, L503.6550, L503.6150 #### [facility] [address] [place], [address] Platelet mean volume (Bld) [Entitic vol] 11.0 fL Normal 6.2-12.0 [facility] Comment on above: Order Comment: Order Date: 06/25/25Order Info: 018- - CBCDOrder Info: 4679-7 - RETIC Performed By: #### L 503.6075, L100.0100, L503.6550, L503.6150 #### [facility] [address] [place], [address] Platelets (Bld) [#/Vol] 255 10*3/uL Normal 150-450 [facility] Comment on above: Order Comment: Order Date: 06/25/25Order Info: 018- - CBCDOrder Info: 4679-7 - RETIC Performed By: #### L 503.6075, L100.0100, L503.6550, L503.6150 #### [facility] [address] [place], [address] RBC (Bld) [#/Vol] 3.66 10*6/uL Low 4.2-5.4 [facility] Comment on above: Order Comment: Order Date: 06/25/25Order Info: 0184-1 - CBCDOrder Info: 4679-7 - RETIC Performed By: #### L 503.6075, L100.0100, L503.6550, L503.6150 #### [facility] [address] [place], [address] RDW SD 48.0 fl High 35.1-43.9 [facility] Comment on above: Order Comment: Order Date: 06/25/25Order Info: 0184-1 - CBCDOrder Info: 4679-7 - RETIC Performed By: #### L 503.6075, L100.0100, L503.6550, L503.6150 #### [facility] [address] [place], [address] WBC (Bld) [#/Vol] 7.5 10*3/uL Normal 4.4-11.0 [facility] Comment on above: Order Comment: Order Date: 06/25/25Order Info: 0184-1 - CBCDOrder Info: 4679-7 - RETIC Performed By: #### L 503.6075, L100.0100, L503.6550, L503.6150 #### [facility] [address] [place], [address] Ferritinon 06-25-2025 Ferritin [Mass/Vol] 29 ng/mL Normal 22-378 [facility] Comment on above: Order Comment: Order Date: 06/25/25Order Info: 0788-1 - LIVEROrder Info: 2498-4 - FEOrder Info: 2276- - ANU Performed By: #### L 503.6075, L100.0100, L503.6550, L503.6150 #### [facility] [address] [place], [address] Ironon 06-25-2025 Iron [Mass/Vol] 23 ug/dL Low 50-170 [facility] Comment on above: Order Comment: Order Date: 06/25/25Order Info: 07- - LIVEROrder Info: 2498-02 - FEOrder Info: 2276-02 - ANU Performed By: #### L 503.6075, L100.0100, L503.6550, L503.6150 #### [facility] [address] [place], [address] Liver Profileon 06-25-2025 Albumin [Mass/Vol] 4.2 g/dL Normal 3.4-4.8 [facility] Comment on above: Order Comment: Order Date: 06/25/25Order Info: 0788 - LIVEROrder Info: 2498-02 - FEOrder Info: 2276-02 - ANU Performed By: #### L 503.6075, L100.0100, L503.6550, L503.6150 #### [facility] [address] [place], [address] ALK PHOS 86 U/L Normal 35-104 [facility] Comment on above: Order Comment: Order Date: 06/25/25Order Info: 0788 - LIVEROrder Info: 2498-02 - FEOrder Info: 2276-02 - ANU Performed By: #### L 503.6075, L100.0100, L503.6550, L503.6150 #### [facility] [address] [place], [address] ALT [Catalytic activity/Vol] 19 U/L Normal <=34 [facility] Comment on above: Order Comment: Order Date: 06/25/25Order Info: 0788- - LIVEROrder Info: 2498-02 - FEOrder Info: 2276-02 - ANU Performed By: #### L 503.6075, L100.0100, L503.6550, L503.6150 #### [facility] [address] [place], [address] AST [Catalytic activity/Vol] 19 U/L Normal <=31 [facility] Comment on above: Order Comment: Order Date: 06/25/25Order Info: 0788- - LIVEROrder Info: 2498-02 - FEOrder Info: 2276-02 - ANU Performed By: #### L 503.6075, L100.0100, L503.6550, L503.6150 #### [facility] [address] [place], [address] Bilirubin [Mass/Vol] 0.26 mg/dL Normal 0.00-1.30 [facility] Comment on above: Order Comment: Order Date: 06/25/25Order Info: 0788- - LIVEROrder Info: 2498-02 - FEOrder Info: 2276-02 - ANU Performed By: #### L 503.6075, L100.0100, L503.6550, L503.6150 #### [facility] [address] [place], [address] Bilirubin.direct [Mass/Vol] 0.13 mg/dL Normal 0.00-0.30 [facility] Comment on above: Order Comment: Order Date: 06/25/25Order Info: 0788- - LIVEROrder Info: 2498-02 - FEOrder Info: 2276-02 - ANU Performed By: #### L 503.6075, L100.0100, L503.6550, L503.6150 #### [facility] [address] [place], [address] Globulin (S) [Mass/Vol] 3.3 g/dL Normal 2.2-4.2 [facility] Comment on above: Order Comment: Order Date: 06/25/25Order Info: 0788-1 - LIVEROrder Info: 2498-02 - FEOrder Info: 2276-02 - ANU Performed By: #### L 503.6075, L100.0100, L503.6550, L503.6150 #### [facility] [address] [place], [address] T PROT 7.5 g/dL Normal 5.9-8.4 [facility] Comment on above: Order Comment: Order Date: 06/25/25Order Info: 0788- - LIVEROrder Info: 2498-02 - FEOrder Info: 2276-02 - ANU Performed By: #### L 503.6075, L100.0100, L503.6550, L503.6150 #### [facility] [address] [place], [address] Retic Panelon 06-25-2025 IM RET FRACTION 23.40 High 3.00-15.90 [facility] Comment on above: Order Comment: Order Date: 06/25/25Order Info: 0184-1 - CBCDOrder Info: 4679-7 - RETIC Performed By: #### L 503.6075, L100.0100, L503.6550, L503.6150 #### [facility] [address] [place], [address] IPF 4.2 Normal 1.0-7.9 [facility] Comment on above: Order Comment: Order [...] #### L 503.6075, L100.0100, L503.6550, L503.6150 #### [facility] [address] [place], [place], [address] RET-HE 21.2 pg Low 30-35 [facility] Comment on above: Order Comment: Order Date: 06/25/25Order Info: 0184-1 - CBCDOrder Info: 4679-7 - RETIC Performed By: #### L 503.6075, L100.0100, L503.6550, L503.6150 #### [facility] [address] [place], [place], [address] Retic Count 1.99 High 0.5-1.5 [facility] Comment on above: Order Comment: Order Date: 06/25/25Order Info: 0184-1 - CBCDOrder Info: 4679-7 - RETIC Performed By: #### L 503.6075, L100.0100, L503.6550, L503.6150 #### [facility] [address] [place], [place], [address] ABD Limited w/ Elastographyo n 06-21-2025 ABD Limited w/ Elastography [facility] [address] [place], [place] [address] ABD Limited w/ Elastography MR#: [id number] Acct: [id number] Name: HALEIGH ALMEIDA Rep #: [id number] : 1955 F 70 From: Rob Barr MD PCP: Dr. Radha Odom MD Status: REG CLI Study: ABD Limited w/ Elastography Date of Exam: 06/07 03/31 Exam# [id number] Ordering Dr: Radha Odom PROCEDURE: ABD LIMITED [...] Location: [facility] CC: Dr. Radha Odom MD Hall Tender: Signed Normal [facility] 12 Lead EKGon 06-14-2025 12 Lead EKG [facility] [address] [place] [address] 12 Lead EKG 06/13/252016 MR#: [id number] Acct: [id number] Name: HALEIGH ALMEIDA Rep #: [id number] : 1955 70 From: Danny Houser MD [...] IS UNCONFIRMED Confirmed by DANNY HOUSER ([id number]), editor house organ KAYLYN THAPA ([id number]) on 06/17/2025 7:40:16 AM Referred By: ARTIS Confirmed By: DANNY HOUSER 06/17/25 0740 Date Danny Houser MD CC: Dr. Radha Odom MD; Dr. Jevon Bustillo DO; Dr. Diego Nichole DO Signed Normal [facility] Basic Metabolic Profile (BMP )on 06-14-2025 BUN/CRE 14.9 RATIO Normal 10-20 [facility] Comment on above: Performed By: #### L 500.2500, L100.0100, L500.4100 ####[facility] [address] [place], [address] Calcium [Mass/Vol] 9.4 mg/dL Normal 7.6-11.0 [facility] Comment on above: Performed By: #### L 500.2500, L100.0100, L500.4100 ####[facility] [address] [place], [address] Chloride [Moles/Vol] 100 mmol/L Normal 98-108 [facility] Comment on above: Performed By: #### L 500.2500, L100.0100, L500.4100 ####[facility] [address] [place], [address] CO2 [Moles/Vol] 23.5 mmol/L Normal 21.0-32.0 [facility] Comment on above: Performed By: #### L 500.2500, L100.0100, L500.4100 ####[facility] [address] [place], [address] Creatinine [Mass/Vol] 0.91 mg/dL Normal 0.70-1.20 [facility] Comment on above: Performed By: #### L 500.2500, L100.0100, L500.4100 ####[facility] [address] [place], [address] ECRCL 54.96 ml/min Normal 50-250 [facility] Comment on above: Performed By: #### L 500.2500, L100.0100, L500.4100 ####[facility] [address] [place], [address] GAP 13 Normal 5-15 [facility] Comment on above: Performed By: #### L 500.2500, L100.0100, L500.4100 ####[facility] [address] [place], [address] GFR/1.73 sq M.predicted among non-blacks MDRD (S/P/Bld) [Vol rate/Area] 69 mL/min/{1.73_m2} Normal >60 [facility] Comment on above: Result Comment: mL/m in/1.73m2 CKD-EPI Creatinine Equation (2020) Performed By: #### L 500.2500, L100.0100, L500.4100 ####[facility] [address] [place], [address] Glucose [Mass/Vol] 99 mg/dL Normal 70-99 [facility] Comment on above: Performed By: #### L 500.2500, L100.0100, L500.4100 ####[facility] [address] [place], [address] Potassium [Moles/Vol] 4.0 mmol/L Normal 3.3-5.1 [facility] Comment on above: Performed By: #### L 500.2500, L100.0100, L500.4100 ####[facility] [address] [place], [address] Sodium [Moles/Vol] 136 mmol/L Normal 133-145 [facility] Comment on above: Performed By: #### L 500.2500, L100.0100, L500.4100 ####[facility] [address] [place], [address] Urea nitrogen [Mass/Vol] 14 mg/dL Normal 4-19 [facility] Comment on above: Performed By: #### L 500.2500, L100.0100, L500.4100 ####[facility] [address] [place], [address] CBC W/Diff, Automatedon 08-0 8-2024 Absolute Lymph 1.43 X10 3/uL Normal 0.83-4.51 [facility] Comment on above: Performed By: #### L 500.2500, L100.0100, L500.4100 ####[facility] [address] [place], [address] Absolute Neut 3.2 X10 3/uL Normal 2.0-7.7 [facility] Comment on above: Performed By: #### L 500.2500, L100.0100, L500.4100 ####[facility] [address] [place], [address] Basophils/100 WBC (Bld) 0.6 % Normal 0-1 [facility] Comment on above: Performed By: #### L 500.2500, L100.0100, L500.4100 ####[facility] [address] [place], [address] Eosinophils/100 WBC (Bld) 1.7 % Normal 0-5 [facility] Comment on above: Performed By: #### L 500.2500, L100.0100, L500.4100 ####[facility] [address] [place], [address] Erythrocyte distribution width (RBC) [Ratio] 15.8 % High 11.6-14.6 [facility] Comment on above: Performed By: #### L 500.2500, L100.0100, L500.4100 ####[facility] [address] [place], [address] Hematocrit (Bld) [Volume fraction] 32.8 % Low 37-47 [facility] Comment on above: Performed By: #### L 500.2500, L100.0100, L500.4100 ####[facility] [address] [place], [address] Hemoglobin (Bld) [Mass/Vol] 10.1 g/dL Low 12.0-15.0 [facility] Comment on above: Performed By: #### L 500.2500, L100.0100, L500.4100 ####[facility] [address] [place], [address] IG% 0.200 Normal 0.0-0.9 [facility] Comment on above: Result Comment: IG% - Immature Granulocytes (promyelocytes, myelocytes and metamyelocytes) > 1% indicates that a LEFT SHIFT is Present. Performed By: #### L 500.2500, L100.0100, L500.4100 ####[facility] [address] [place], [address] Lymphocytes/100 WBC (Bld) 27.0 % Normal 19-41 [facility] Comment on above: Performed By: #### L 500.2500, L100.0100, L500.4100 ####[facility] [address] [place], [address] MCH (RBC) [Entitic mass] 25.5 pg Low 27.0-32.0 [facility] Comment on above: Performed By: #### L 500.2500, L100.0100, L500.4100 ####[facility] [address] [place], [address] MCHC (RBC) [Mass/Vol] 30.8 g/dL Low 32-36 [facility] Comment on above: Performed By: #### L 500.2500, L100.0100, L500.4100 ####[facility] [address] [place], [address] MCV (RBC) [Entitic vol] 82.8 fL Normal 81-99 [facility] Comment on above: Performed By: #### L 500.2500, L100.0100, L500.4100 ####[facility] [address] [place], [address] Monocytes/100 WBC (Bld) 9.8 % Normal 0-10 [facility] Comment on above: Performed By: #### L 500.2500, L100.0100, L500.4100 ####[facility] [address] [place], [address] Neutrophils/100 WBC (Bld) 60.7 % Normal 47-70 [facility] Comment on above: Performed By: #### L 500.2500, L100.0100, L500.4100 ####[facility] [address] [place], [address] Nucleated RBC (Bld) [#/Vol] 0 10*3/uL Normal 0-5 [facility] Comment on above: Performed By: #### L 500.2500, L100.0100, L500.4100 ####[facility] [address] [place], [address] Platelet mean volume (Bld) [Entitic vol] 11.2 fL Normal 6.2-12.0 [facility] Comment on above: Performed By: #### L 500.2500, L100.0100, L500.4100 ####[facility] [address] [place], [address] Platelets (Bld) [#/Vol] 207 10*3/uL Normal 150-450 [facility] Comment on above: Performed By: #### L 500.2500, L100.0100, L500.4100 ####[facility] [address] [place], [address] RBC (Bld) [#/Vol] 3.96 10*6/uL Low 4.2-5.4 [facility] Comment on above: Performed By: #### L 500.2500, L100.0100, L500.4100 ####[facility] [address] [place], [address] RDW SD 47.9 fl High 35.1-43.9 [facility] Comment on above: Performed By: #### L 500.2500, L100.0100, L500.4100 ####[facility] [address] [place], [address] WBC (Bld) [#/Vol] 5.3 10*3/uL Normal 4.4-11.0 [facility] Comment on above: Performed By: #### L 500.2500, L100.0100, L500.4100 ####[facility] [address] [place], [address] Discharge Instructionon 08-0 Discharge Instruction [facility] Medical Records Department [address] [place] [address] Instructions for Home/Discharge Instructions 06/14/25 1752 MR#: [id number] Acct: [id number] Name: HALEIGH ALMEIDA Rep #: [id number] : 1955 70 From: Diego Nichole DO [...] MD; Dr. Jevon Bustillo DO Signed Normal [facility] Lipid Profileon 06-14-2025 CHOL:HDL 2.33 Normal [facility] Comment on above: Performed By: #### L 500.2500, L100.0100, L500.4100 ####[facility] [address] [place], [address] Cholesterol [Mass/Vol] 178 mg/dL Normal <=200 [facility] Comment on above: Result Comment: Chol esterol level, Desirable <200 mg/dL Borderline high cholesterol 200-239 mg/dL High cholesterol >=240 mg/dL Recommendations of the NCEP Adult Treatment Panel for the following risk-cutoff thresholds for the [place] population. Performed By: #### L 500.2500, L100.0100, L500.4100 ####[facility] [address] [place], [address] Cholesterol in HDL [Mass/Vol] 76 mg/dL Normal [facility] Comment on above: Result Comment: Merline onal Cholesterol Education Program (NCEP) guidelines: <40 mg/dL: Low HDL-cholesterol (major risk factor for CHD) >= 60 mg/dL: High HDL-cholesterol (negative risk factor for CHD) HDL-cholesterol is affected by a number of factors, e.g. smoking, exercise, hormones, sex and age. Performed By: #### L 500.2500, L100.0100, L500.4100 ####[facility] [address] [place], [address] Cholesterol in LDL [Mass/Vol] 87 mg/dL Normal [facility] Comment on above: Result Comment: Bord tpyazh=905-105 mg/dL Higher Ezbw=323 mg/dL or greater Friedwald Equation for LDL-C Performed By: #### L 500.2500, L100.0100, L500.4100 ####[facility] [address] [place], [address] Cholesterol in VLDL [Mass/Vol] 14 mg/dL Normal 5-40 [facility] Comment on above: Performed By: #### L 500.2500, L100.0100, L500.4100 ####[facility] [address] [place], [address] Triglyceride [Mass/Vol] 71 mg/dL Normal [facility] Comment on above: Result Comment: The drugs N-Acetylcysteine and Metamizole may falsely depress this assay. Normal range: <150 mg/dL Borderline High: 150-199 mg/dL High: 200-499 mg/dL Very High: >500 mg/dL Performed By: #### L 500.2500, L100.0100, L500.4100 ####[facility] [address] [place], [address] Stress Reporton 06-14-2025 Stress Report [facility] Cardiovascular Services [address] [place] [address] MR#: [id number] Acct: [id number] Name: HALEIGH ALMEIDA Rep #: [id number] : 1955 70 From: Danny Houser MD Primary Care: Dr. Radha Odom MD Status: ADM JAMARCUS Referring Dr: Sex: F C Stress Test Report Pharmacologic/Lexiscan myocardial perfusion stress test. Indication; 70-year-old patient with symptoms of chest pain Had a history of non-ST elevation ME in 2021. History of drug-eluting stent to [...] apical and anterior defect consistent with previous ME With no evidence of reversible myocardial ischemia. Gated SPECT analysis: The gated ejection fraction is 67% Wall motion showed hyperdynamic left ventricle. Conclusion: Fixed apical and anterior defect consistent with previous ME No reversible myocardial defect LV function preserved with ejection fraction calculated at 67% Danny Houser MD,[facility] music theory teacher 06/14/25 1735 Date Danny Houser MD CC: Dr. Hermelindo Vega DO; Dr. Radha Odom MD; Dr. Jevon Bustillo DO; Dr. Diego Nichole DO Date Dictated: 06/14/251714 Date Transcribed: 06/14/251714 Hall Tender: GEGE Signed [facility] 12 Lead EKGon 06-13-2025 12 Lead EKG [facility] Cardiovascular Services [address] [place] [address] 12 Lead EKG 06/14/25 0527 MR#: [id number] Acct: [id number] Name: HALEIGH ALMEIDA Rep #: [id number] : 1955 70 From: Danny Houser MD Attending Dr: Dr. Diego Nichole DO Status: D IS JAMARCUS Ordering Dr: Jevon Bustillo DO Date: 06/13/25 Location: [facility] Sex: F C Admitted: 06/13/25 Test Reason [...] IS UNCONFIRMED Confirmed by DANNY HOUSER ([id number]), editor house organ KAYLYN THAPA ([id number]) on 06/17/2025 7:39:13 AM Referred By: ARTIS Confirmed By: DANNY HOUSER 06/17/25 0739 Date Danny Houser MD CC: Dr. Radha Odom MD; Dr. Jevon Bustillo DO; Dr. Diego Nichole DO Signed [facility] 12 Lead EKG [facility] Cardiovascular Services [address] [place] [address] 12 Lead EKG 06/13/25 1334 MR#: [id number] Acct: [id number] Name: HALEIGH ALMEIDA Rep #: [id number] : 1955 70 From: Danny Houser MD Attending Dr: Dr. Diego Nichole DO Status: D IS JAMARCUS Ordering Dr: Hermelindo Vega DO Date: 5 Location: [facility] Sex: F C Admitted: 06/13/25 Test Reason [...] normal ECG Confirmed by DANNY HOUSER ([id number]), editor house organ BAR GUERRA ([id number]) on 06/17/2025 6:46:17 AM Referred By: ES/AK Confirmed By: DANNY HOUSER 06/17/25 0646 Date Danny Houser MD CC: Dr. Hermelindo Vega DO; Dr. Radha Odom MD; Dr. Diego Nichole DO Signed Normal [facility] Basic Metabolic Profile (BMP )on 06-13-2025 BUN/CRE 12.7 RATIO Normal 10-20 [facility] Comment on above: Performed By: #### L 503.6075, L100.0100, L503.6550, L503.6150 #### [facility] [address] [place], [address] Calcium [Mass/Vol] 9.0 mg/dL Normal 7.6-11.0 [facility] Comment on above: Performed By: #### L 503.6075, L100.0100, L503.6550, L503.6150 #### [facility] [address] [place], [address] Chloride [Moles/Vol] 102 mmol/L Normal 98-108 [facility] Comment on above: Performed By: #### L 503.6075, L100.0100, L503.6550, L503.6150 #### [facility] [address] [place], [address] CO2 [Moles/Vol] 20.7 mmol/L Low 21.0-32.0 [facility] Comment on above: Performed By: #### L 503.6075, L100.0100, L503.6550, L503.6150 #### [facility] [address] [place], [address] Creatinine [Mass/Vol] 0.81 mg/dL Normal 0.70-1.20 [facility] Comment on above: Performed By: #### L 503.6075, L100.0100, L503.6550, L503.6150 #### [facility] [address] [place], [address] ECRCL 62.25 ml/min Normal 50-250 [facility] Comment on above: Performed By: #### L 503.6075, L100.0100, L503.6550, L503.6150 #### [facility] [address] [place], [address] GAP 14 Normal 5-15 [facility] Comment on above: Performed By: #### L 503.6075, L100.0100, L503.6550, L503.6150 #### [facility] [address] [place], [address] GFR/1.73 sq M.predicted among non-blacks MDRD (S/P/Bld) [Vol rate/Area] 79 mL/min/{1.73_m2} Normal >60 [facility] Comment on above: Result Comment: mL/m in/1.73m2 CKD-EPI Creatinine Equation (2020) Performed By: #### L 503.6075, L100.0100, L503.6550, L503.6150 #### [facility] [address] [place], [address] Glucose [Mass/Vol] 131 mg/dL High 70-99 [facility] Comment on above: Performed By: #### L 503.6075, L100.0100, L503.6550, L503.6150 #### [facility] [address] [place], [address] Potassium [Moles/Vol] 3.9 mmol/L Normal 3.3-5.1 [facility] Comment on above: Performed By: #### L 503.6075, L100.0100, L503.6550, L503.6150 #### [facility] [address] [place], [address] Sodium [Moles/Vol] 137 mmol/L Normal 133-145 [facility] Comment on above: Performed By: #### L 503.6075, L100.0100, L503.6550, L503.6150 #### [facility] [address] [place], [address] Urea nitrogen [Mass/Vol] 10 mg/dL Normal 4-19 [facility] Comment on above: Performed By: #### L 503.6075, L100.0100, L503.6550, L503.6150 #### [facility] [address] [place], [address] CBC W/Diff, Automatedon 08-0 -2024 Absolute Lymph 1.71 X10 3/uL Normal 0.83-4.51 [facility] Comment on above: Performed By: #### L 503.6075, L100.0100, L503.6550, L503.6150 #### [facility] [address] [place], [address] Absolute Neut 4.2 X10 3/uL Normal 2.0-7.7 [facility] Comment on above: Performed By: #### L 503.6075, L100.0100, L503.6550, L503.6150 #### [facility] [address] [place], [address] Basophils/100 WBC (Bld) 0.8 % Normal 0-1 [facility] Comment on above: Performed By: #### L 503.6075, L100.0100, L503.6550, L503.6150 #### [facility] [address] [place], [address] Eosinophils/100 WBC (Bld) 1.2 % Normal 0-5 [facility] Comment on above: Performed By: #### L 503.6075, L100.0100, L503.6550, L503.6150 #### [facility] [address] [place], [address] Erythrocyte distribution width (RBC) [Ratio] 15.9 % High 11.6-14.6 [facility] Comment on above: Performed By: #### L 503.6075, L100.0100, L503.6550, L503.6150 #### [facility] [address] [place], [address] Hematocrit (Bld) [Volume fraction] 32.5 % Low 37-47 [facility] Comment on above: Performed By: #### L 503.6075, L100.0100, L503.6550, L503.6150 #### [facility] [address] [place], [address] Hemoglobin (Bld) [Mass/Vol] 9.9 g/dL Low 12.0-15.0 [facility] Comment on above: Performed By: #### L 503.6075, L100.0100, L503.6550, L503.6150 #### [facility] [address] [place], [address] IG% 0.500 Normal 0.0-0.9 [facility] Comment on above: Result Comment: IG% - Immature Granulocytes (promyelocytes, myelocytes and metamyelocytes) > 1% indicates that a LEFT SHIFT is Present. Performed By: #### L 503.6075, L100.0100, L503.6550, L503.6150 #### [facility] [address] [place], [address] Lymphocytes/100 WBC (Bld) 25.8 % Normal 19-41 [facility] Comment on above: Performed By: #### L 503.6075, L100.0100, L503.6550, L503.6150 #### [facility] [address] [place], [address] MCH (RBC) [Entitic mass] 25.3 pg Low 27.0-32.0 [facility] Comment on above: Performed By: #### L 503.6075, L100.0100, L503.6550, L503.6150 #### [facility] [address] [place], [address] MCHC (RBC) [Mass/Vol] 30.5 g/dL Low 32-36 [facility] Comment on above: Performed By: #### L 503.6075, L100.0100, L503.6550, L503.6150 #### [facility] [address] [place], [address] MCV (RBC) [Entitic vol] 82.9 fL Normal 81-99 [facility] Comment on above: Performed By: #### L 503.6075, L100.0100, L503.6550, L503.6150 #### [facility] [address] [place], [address] Monocytes/100 WBC (Bld) 8.0 % Normal 0-10 [facility] Comment on above: Performed By: #### L 503.6075, L100.0100, L503.6550, L503.6150 #### [facility] [address] [place], [address] Neutrophils/100 WBC (Bld) 63.7 % Normal 47-70 [facility] Comment on above: Performed By: #### L 503.6075, L100.0100, L503.6550, L503.6150 #### [facility] [address] [place], [address] Nucleated RBC (Bld) [#/Vol] 0 10*3/uL Normal 0-5 [facility] Comment on above: Performed By: #### L 503.6075, L100.0100, L503.6550, L503.6150 #### [facility] [address] [place], [address] Platelet mean volume (Bld) [Entitic vol] 10.5 fL Normal 6.2-12.0 [facility] Comment on above: Performed By: #### L 503.6075, L100.0100, L503.6550, L503.6150 #### [facility] [address] [place], [address] Platelets (Bld) [#/Vol] 220 10*3/uL Normal 150-450 [facility] Comment on above: Performed By: #### L 503.6075, L100.0100, L503.6550, L503.6150 #### [facility] [address] [place], [address] RBC (Bld) [#/Vol] 3.92 10*6/uL Low 4.2-5.4 [facility] Comment on above: Performed By: #### L 503.6075, L100.0100, L503.6550, L503.6150 #### [facility] [address] [place], [address] RDW SD 48.2 fl High 35.1-43.9 [facility] Comment on above: Performed By: #### L 503.6075, L100.0100, L503.6550, L503.6150 #### [facility] [address] [place], [address] WBC (Bld) [#/Vol] 6.6 10*3/uL Normal 4.4-11.0 [facility] Comment on above: Performed By: #### L 503.6075, L100.0100, L503.6550, L503.6150 #### [facility] [address] [place], [address] Chest PA and Lateralon 06-13 Chest PA and Lateral [facility] Imaging Services [address] [place] [address] Chest PA and Lateral MR#: [id number] Acct: [id number] Name: HALEIGH ALMEIDA Rep #: [id number] : 1955 F 70 From: Sriram Jacome MD PCP: Dr. Radha Odom MD Status: REG ER Study: Chest PA and Lateral Date of Exam: 06/13/25 Exam# [id number] Ordering Dr: Hermelindo Vega DO PROCEDURE: CHEST [...] the posttreatment right upper lobe. Reading Location: [id number] CC: Dr. Hermelindo Vega DO; Dr. Radha Odom MD Hall Tender: Signed Normal [facility] D-Dimer Quantitative (DVT/PE )on 06-13-2025 D-DIMER QUANT 0.52 FEU/ug/m Invalid Interpretation Code 0.27-0.49 [facility] Comment on above: Order Comment: CRITI BARBIE VALUE CALLED TO tuan yicvcfx62/07/25 1450 Yocastacaitlyn Neves.RESULTS READ BACK BY same. Result Comment: D-Di daryn ELEVATED (>0.49): Additional studies and clinical assessments are indicated to conclude diagnosis of: Deep Vein Thrombosis (DVT) or Pulmonary Embolism (PE) Performed By: #### L 300.8000 ####[facility] [address] [facility] [place], [address] Emergency Department Summary on 06-13-2025 Emergency Department Summary [facility] Medical Records Department [address] [place] [address] Emergency Department Summary 06/13/25 MR#: [id number] Acct: [id number] Name: HALEIGH ALMEIDA Rep #: [id number] : 1955 70 From: Hermelindo Vega DO [...] intact Psych: Cooperative, appropriate mood and affect 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 Normal [facility] H AND P Exam - Hospitaliston 06-13-2025 H&P Exam - Hospitalist [facility] Medical Records Department [address] [place] [address] H P Exam - Hospitalist 06/13/25 1704 MR#: [id number] Acct: [id number] Name: HALEIGH ALMEIDA Rep #: [id number] : 1955 70 From: Jevon Bustillo DO [...] EGD that showed acute gastritis with hemorrhage. 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 Normal [facility] L501.4021on 06-13-2025 Trop T High Sen 23 ng/L High <=14 [facility] Comment on above: Performed By: #### L 503.6075, L100.0100, L503.6550, L503.6150 #### [facility] [address] [place], [address] Partial Thromboplast Timeon 06-13-2025 aPTT Coag (Bld) [Time] 32.5 s Normal 24.1-36.2 [facility] Comment on above: Performed By: #### L 503.6075, L100.0100, L503.6550, L503.6150 #### [facility] [address] [place], [address] Pro- Brain NATRIURETIC PEPTI Humza 06-13-2025 Natriuretic peptide B (Bld) [Mass/Vol] 965 pg/mL High <=900 [facility] Comment on above: Result Comment: Hear t Failure Unlikely: < 300 pg/mL Heart Failure Likely < 50 Years: > 450 pg/mL 50-75 Years: > 900 pg/mL >75 Years: > 1800 pg/mL Performed By: #### L 503.6075, L100.0100, L503.6550, L503.6150 #### [facility] [address] [place], [address] Prothrombin Time w/INRon INR Coag (PPP) [Relative time] 1.1 {INR} Normal [facility] Comment on above: Performed By: #### L 503.6075, L100.0100, L503.6550, L503.6150 #### [facility] [address] [place], [address] PT Coag (PPP) [Time] 14.2 s Normal 11.7-14.9 [facility] Comment on above: Performed By: #### L 503.6075, L100.0100, L503.6550, L503.6150 #### [facility] [address] [place], [address] Stool Occult Blood iFOBon STOB Negative Normal [facility] Comment on above: Performed By: #### M 100.7900 ####[facility] [address] [place], [address] Troponin T HS 2 HRon 025 Trop T High Sen 21 ng/L High <=14 [facility] Comment on above: Performed By: #### L 503.6075, L100.0100, L503.6550, L503.6150 #### [facility] [address] [place], [address] CBC W/Diff, Automatedon 08 Absolute Neut Normal 2.0-7.7 [facility] Comment on above: Order Comment: Order Date: 06/06/25Order Info: 0184-1 - CBCD Result Comment: This specimen has been REJECTED due to Laboratory criteria: Quanity Not Sufficient. E-MAIL has been SENT of need of recollection. 06/12/25 1651 Queta Dillard Performed By: #### L 503.6075, L100.0100, L503.6550, L503.6150 #### [facility] [address] [place], [address] HCT Normal 37-47 [facility] Comment on above: Order Comment: Order Date: 06/06/25Order Info: 0184-1 - CBCD Result Comment: This specimen has been REJECTED due to Laboratory criteria: Quanity Not Sufficient. E-MAIL has been SENT of need of recollection. 06/12/25 1651 Queta Dillard Performed By: #### L 503.6075, L100.0100, L503.6550, L503.6150 #### [facility] [address] [place], [address] HGB Normal 12.0-15.0 [facility] Comment on above: Order Comment: Order Date: 06/06/25Order Info: 0184-1 - CBCD Result Comment: This specimen has been REJECTED due to Laboratory criteria: Quanity Not Sufficient. E-MAIL has been SENT of need of recollection. 06/12/25 1651 Queta Nishant Performed By: #### L 503.6075, L100.0100, L503.6550, L503.6150 #### [facility] [address] [place], [address] MCH Normal 27.0-32.0 [facility] Comment on above: Order Comment: Order Date: 06/06/25Order Info: 0184-1 - CBCD Result Comment: This specimen has been REJECTED due to Laboratory criteria: Quanity Not Sufficient. E-MAIL has been SENT of need of recollection. 06/12/25 1651 Queta Nishant Performed By: #### L 503.6075, L100.0100, L503.6550, L503.6150 #### [facility] [address] [place], [address] MCHC Normal 32-36 [facility] Comment on above: Order Comment: Order Date: 06/06/25Order Info: 0184-1 - CBCD Result Comment: This specimen has been REJECTED due to Laboratory criteria: Quanity Not Sufficient. E-MAIL has been SENT of need of recollection. 06/12/25 1651 Queta Nishant Performed By: #### L 503.6075, L100.0100, L503.6550, L503.6150 #### [facility] [address] [place], [address] MCV Normal 81-99 [facility] Comment on above: Order Comment: Order Date: 06/06/25Order Info: 0184-1 - CBCD Result Comment: This specimen has been REJECTED due to Laboratory criteria: Quanity Not Sufficient. E-MAIL has been SENT of need of recollection. 06/12/25 165 Queta Dillard Performed By: #### L 503.6075, L100.0100, L503.6550, L503.6150 #### [facility] [address] [place], [address] NEUT% Normal 47-70 [facility] Comment on above: Order Comment: Order Date: 06/06/25Order Info: 0184-1 - CBCD Result Comment: This specimen has been REJECTED due to Laboratory criteria: Quanity Not Sufficient. E-MAIL has been SENT of need of recollection. 06/12/251650 Queta Dillard Performed By: #### L 503.6075, L100.0100, L503.6550, L503.6150 #### [facility] [address] [place], [address] PLT Normal 150-450 [facility] Comment on above: Order Comment: Order Date: 06/06/25Order Info: 0184-1 - CBCD Result Comment: This specimen has been REJECTED due to Laboratory criteria: Quanity Not Sufficient. E-MAIL has been SENT of need of recollection. 06/12/251650 Queta Dillard Performed By: #### L 503.6075, L100.0100, L503.6550, L503.6150 #### [facility] [address] [place], [address] RBC Normal 4.2-5.4 [facility] Comment on above: Order Comment: Order Date: 06/06/25Order Info: 0184-1 - CBCD Result Comment: This specimen has been REJECTED due to Laboratory criteria: Quanity Not Sufficient. E-MAIL has been SENT of need of recollection. 06/12/251650 Queta Dillard Performed By: #### L 503.6075, L100.0100, L503.6550, L503.6150 #### [facility] [address] [place], [address] RDW CV Normal 11.6-14.6 [facility] Comment on above: Order Comment: Order Date: 06/06/25Order Info: 0184-1 - CBCD Result Comment: This specimen has been REJECTED due to Laboratory criteria: Quanity Not Sufficient. E-MAIL has been SENT of need of recollection. 06/12/25 1651 Queta Dillard Performed By: #### L 503.6075, L100.0100, L503.6550, L503.6150 #### [facility] [address] [place], [address] RDW SD Normal 35.1-43.9 [facility] Comment on above: Order Comment: Order Date: 06/06/25Order Info: 0184-1 - CBCD Result Comment: This specimen has been REJECTED due to Laboratory criteria: Quanity Not Sufficient. E-MAIL has been SENT of need of recollection. 06/12/25 1651 Queta Dillard Performed By: #### L 503.6075, L100.0100, L503.6550, L503.6150 #### [facility] [address] [place], [address] WBC Normal 4.4-11.0 [facility] Comment on above: Order Comment: Order Date: 06/06/25Order Info: 0184-1 - CBCD Result Comment: This specimen has been REJECTED due to Laboratory criteria: Quanity Not Sufficient. E-MAIL has been SENT of need of recollection. 06/12/25 1651 Queta Dillard Performed By: #### L 503.6075, L100.0100, L503.6550, L503.6150 #### [facility] [address] [place], [address] Comprehensive Metabolic Prof ilon 06-12-2025 Albumin [Mass/Vol] 4.3 g/dL Normal 3.4-4.8 [facility] Comment on above: Order Comment: Order Date: 06/06/25Order Info: 0786-1 - CMPOrder Info: 2498-02 - FEOrder Info: 2276-02 - ANU Performed By: #### L 503.6075, L100.0100, L503.6550, L503.6150 #### [facility] [address] [place], [address] Albumin/Globulin [Mass ratio] 1.2 {ratio} Normal 0.9-2.4 [facility] Comment on above: Order Comment: Order Date: 06/06/25Order Info: 785- - CMPOrder Info: 2498-02 - FEOrder Info: 2276-02 - ANU Performed By: #### L 503.6075, L100.0100, L503.6550, L503.6150 #### [facility] [address] [place], [address] ALK PHOS 85 U/L Normal 35-104 [facility] Comment on above: Order Comment: Order Date: 06/06/25Order Info: 07 - CMPOrder Info: 2498-02 - FEOrder Info: 2276-02 - ANU Performed By: #### L 503.6075, L100.0100, L503.6550, L503.6150 #### [facility] [address] [place], [address] ALT [Catalytic activity/Vol] 13 U/L Normal <=34 [facility] Comment on above: Order Comment: Order Date: 06/06/25Order Info: 07 - CMPOrder Info: 2498-02 - FEOrder Info: 2276-02 - ANU Performed By: #### L 503.6075, L100.0100, L503.6550, L503.6150 #### [facility] [address] [place], [address] AST [Catalytic activity/Vol] 21 U/L Normal <=31 [facility] Comment on above: Order Comment: Order Date: 06/06/25Order Info: 07 - CMPOrder Info: 2498-02 - FEOrder Info: 2276-02 - ANU Performed By: #### L 503.6075, L100.0100, L503.6550, L503.6150 #### [facility] [address] [place], [address] Bilirubin [Mass/Vol] 0.22 mg/dL Normal 0.00-1.30 [facility] Comment on above: Order Comment: Order Date: 06/06/25Order Info: 07- - CMPOrder Info: 2498-02 - FEOrder Info: 2276-02 - ANU Performed By: #### L 503.6075, L100.0100, L503.6550, L503.6150 #### [facility] [address] [place], [address] BUN/CRE 14.3 RATIO Normal 10-20 [facility] Comment on above: Order Comment: Order Date: 06/06/25Order Info: 0786- - CMPOrder Info: 2498-02 - FEOrder Info: 2276-02 - ANU Performed By: #### L 503.6075, L100.0100, L503.6550, L503.6150 #### [facility] [address] [place], [address] Calcium [Mass/Vol] 9.5 mg/dL Normal 7.6-11.0 [facility] Comment on above: Order Comment: Order Date: 06/06/25Order Info: 0786 - CMPOrder Info: 2498-02 - FEOrder Info: 2276-02 - ANU Performed By: #### L 503.6075, L100.0100, L503.6550, L503.6150 #### [facility] [address] [place], [address] Chloride [Moles/Vol] 102 mmol/L Normal 98-108 [facility] Comment on above: Order Comment: Order Date: 06/06/25Order Info: 0786- - CMPOrder Info: 2498-02 - FEOrder Info: 2276-02 - ANU Performed By: #### L 503.6075, L100.0100, L503.6550, L503.6150 #### [facility] [address] [place], [place], [address] CO2 [Moles/Vol] 21.6 mmol/L Normal 21.0-32.0 [facility] Comment on above: Order Comment: Order Date: 06/06/25Order Info: 07- - CMPOrder Info: 2498-02 - FEOrder Info: 2275-4 - ANU Performed By: #### L 503.6075, L100.0100, L503.6550, L503.6150 #### [facility] [address] [place], [place], [address] Creatinine [Mass/Vol] 0.86 mg/dL Normal 0.70-1.20 [facility] Comment on above: Order Comment: Order Date: 06/06/25Order Info: 785-11 - CMPOrder Info: 2498-02 - FEOrder Info: 2276-02 - ANU Performed By: #### L 503.6075, L100.0100, L503.6550, L503.6150 #### [facility] [address] [place], [address] GAP 14 Normal 5-15 [facility] Comment on above: Order Comment: Order Date: 06/06/25Order Info: 0786 - CMPOrder Info: 2498-02 - FEOrder Info: 2276-02 - ANU Performed By: #### L 503.6075, L100.0100, L503.6550, L503.6150 #### [facility] [address] [place], [place], [address] GFR/1.73 sq M.predicted among non-blacks MDRD (S/P/Bld) [Vol rate/Area] 74 mL/min/{1.73_m2} Normal >60 [facility] Comment on above: Order Comment: Order Date: 06/06/25Order Info: 07- - CMPOrder Info: 2498-02 - FEOrder Info: 2276-02 - ANU Result Comment: mL/m in/1.73m2 CKD-EPI Creatinine Equation (2020) Performed By: #### L 503.6075, L100.0100, L503.6550, L503.6150 #### [facility] [address] [place], [address] Globulin (S) [Mass/Vol] 3.4 g/dL Normal 2.2-4.2 [facility] Comment on above: Order Comment: Order Date: 06/06/25Order Info: 07- - CMPOrder Info: 2498-02 - FEOrder Info: 2276-02 - ANU Performed By: #### L 503.6075, L100.0100, L503.6550, L503.6150 #### [facility] [address] [place], [address] Glucose [Mass/Vol] 87 mg/dL Normal 70-99 [facility] Comment on above: Order Comment: Order Date: 06/06/25Order Info: 0786 - CMPOrder Info: 2498-02 - FEOrder Info: 2276-02 - ANU Performed By: #### L 503.6075, L100.0100, L503.6550, L503.6150 #### [facility] [address] [place], [address] Potassium [Moles/Vol] 4.5 mmol/L Normal 3.3-5.1 [facility] Comment on above: Order Comment: Order Date: 06/06/25Order Info: 0786 - CMPOrder Info: 2498-02 - FEOrder Info: 2276-02 - ANU Performed By: #### L 503.6075, L100.0100, L503.6550, L503.6150 #### [facility] [address] [place], [address] Sodium [Moles/Vol] 137 mmol/L Normal 133-145 [facility] Comment on above: Order Comment: Order Date: 06/06/25Order Info: 0786-1 - CMPOrder Info: 2498-02 - FEOrder Info: 2276-02 - ANU Performed By: #### L 503.6075, L100.0100, L503.6550, L503.6150 #### [facility] [address] [place], [address] T PROT 7.7 g/dL Normal 5.9-8.4 [facility] Comment on above: Order Comment: Order Date: 06/06/25Order Info: 0786-1 - CMPOrder Info: 2498-02 - FEOrder Info: 2276-02 - ANU Performed By: #### L 503.6075, L100.0100, L503.6550, L503.6150 #### [facility] [address] [place], [place], [address] Urea nitrogen [Mass/Vol] 12 mg/dL Normal 4-19 [facility] Comment on above: Order Comment: Order Date: 06/06/25Order Info: 0786-1 - CMPOrder Info: 2498-02 - FEOrder Info: 2276-02 - ANU Performed By: #### L 503.6075, L100.0100, L503.6550, L503.6150 #### [facility] [address] [place], [place], [address] Ferritinon 06-12-2025 Ferritin [Mass/Vol] 21 ng/mL Low 22-378 [facility] Comment on above: Order Comment: Order Date: 06/06/25Order Info: 0786-1 - CMPOrder Info: 2498-02 - FEOrder Info: 2276-02 - ANU Performed By: #### L 503.6075, L100.0100, L503.6550, L503.6150 #### [facility] [address] [place], [address] Ironon 06-12-2025 Iron [Mass/Vol] 26 ug/dL Low 50-170 [facility] Comment on above: Order Comment: Order Date: 06/06/25Order Info: 0786-1 - CMPOrder Info: 2498-02 - FEOrder Info: 2276-02 - ANU Performed By: #### L 503.6075, L100.0100, L503.6550, L503.6150 #### [facility] [address] [place], [address] Pro- Brain NATRIURETIC PEPTI Humza 06-12-2025 Natriuretic peptide B (Bld) [Mass/Vol] 1475 pg/mL High <=900 [facility] Comment on above: Order Comment: Order Date: 06/06/25Order Info: 0786-1 - CMPOrder Info: 2498-02 - FEOrder Info: 2275-4 - ANU Result Comment: Hear t Failure Unlikely: < 300 pg/mL Heart Failure Likely < 50 Years: > 450 pg/mL 50-75 Years: > 900 pg/mL >75 Years: > 1800 pg/mL Performed By: #### L 503.6075, L100.0100, L503.6550, L503.6150 #### [facility] [address] [place], [address] L3410.9998on 01-02-2025 [facility] Misc. COMMENT Normal . [facility] Comment on above: Order Comment: 18567 9ENHANCED LIVE FIBROSIS Result Comment: Test Ordered: 664726 Enhanced Liver Fibrosis (ELF) ELF(TM) Score 9.64 [...] J Hepatol. 2020 May;73(1):26-39. Performed at: - [facility] [id number] Incident Response Consultant: Channing Salazar MD, Phone: [phone] [facility]formed at: - [facility] [address] [place], [place] [id number] Incident Response Consultant: Handy Guerrero PhD, Phone: [phone] Performed By: #### L 503.9491, L100.3816, I871.0421, L501.0604 #### [facility] [address] [facility] [place], [place], [address] Colonoscopy Reporton 025 Colonoscopy Report [facility] Medical Records Department [address] [place] [address] Colonoscopy Report MR#: [id number] Acct: [id number] Name: HALEIGH ALMEIDA Rep #: [id number] : 1955 69 From: Tanner Beasley DO PCP: Dr. Radha Odom MD Status:[facility] Patient Name: Haleigh Almeida Procedure Date: 12/28/2024 [...] for surveillance. Procedure Code(s): --- Professional --- 26359, Colonoscopy, flexible; with removal of tumor(s), polyp(s), or other lesion(s) by snare technique CPT copyright 2021 [employer]. All rights reserved. The codes documented in this report are preliminary and upon senior nuclear medicine technologist review may be revised to meet current compliance requirements. Tanner Beasley DO 12/28/2024 7:34:59 AM This report has been signed electronically. Number of Addenda: 0 Note Initiated On: 12/28/2024 7:06 AM 12/28/24 0735 Date Tanner Beasley DO Cosigner Signature: Date (if indicated) CC: Dr. Radha Odom MD; Tanner Beasley DO Date Dictated: 12/28/24705 Date Transcribed: Hall Tender: RF Signed Normal [facility] EGD Reporton 12-28-2024 EGD Report [facility] Medical Records Department [address] [place] [address] EGD Report MR#: [id number] Acct: [id number] Name: HALEIGH ALMEIDA Rep #: [id number] : 1955 69 From: Tanner Beasley DO PCP: Dr. Radha Odom MD Status:[facility] Patient Name: Haleigh Almeida Procedure Date: 12/28/2024 [...] pathology results. Procedure Code(s): --- Professional --- 19603, Esophagogastroduodenos copy, flexible, transoral; with biopsy, single or multiple CPT copyright 2021 [employer]. All rights reserved. The codes documented in this report are preliminary and upon senior nuclear medicine technologist review may be revised to meet current compliance requirements. Tanner Beasley DO 12/28/2024 7:32:30 AM This report has been signed electronically. Number of Addenda: 0 Note Initiated On: 12/28/2024 6:35 AM 12/28/2433 Date Tanner Beasley DO Cosigner Signature: Date (if indicated) CC: Dr. Radha Odom MD; Tanner Beasley DO Date Dictated: 12/28/2435 Date Transcribed: Hall Tender: BELGICA Signed Normal [facility] H Pylori (initial)on H Pylori (initial) -- ---- Patient Age/Sex Location Account Attending Physician ---- HALEIGH ALMEIDA 69/F EN [id number] Tanner Beasley DO ---- Specimen: [id number] Received: 12/28/24-1043 Status: TEETEE Pack Num: [id number] Spec Type: IMMUNO Subm Dr: Tanner Beasley DO [facility] [address] [address] SPECIMEN INFORMATION: Tissue Source: A- Gastric body biopsy Clinical Info: Anemia, right lower quadrant abdominal pain, diarrhea, weight loss Specimen Number: [id number] CPT code: 86410 METHODOLOGY: Deparaffinized sections of prefer/formalin-fixed tissue or [...] developed and their performance characteristics determined by [facility]. They may not have been cleared or approved by the U.S. Food and Drug Administration. The FDA has determined that such clearance or approval is not necessary. The above immunohistochemical/du alISH markers are ordered and reviewed by the Pathologist. INTERPRETATION: A. Gastric body, biopsy: Negative for Helicobacter pylori organisms. 12/31/2024 Signed (signature on file) Dr. Jo-Ann Oseguera MD 12/31/24 1310 ---- Normal [facility] Comment on above: Performed By: #### L 503.6075, L100.0100, L503.6550, L503.6150 #### [facility] [address] [place] [address], [address] MR/POSTOP.ANEon 12-28-2024 MR/POSTOP.[facility] Medical Records Department [address] [place] [address] Anesthesia Postop Eval I 12/28/24 0730 MR#: [id number] Acct: [id number] Name: HALEIGH ALMEIDA Rep #: [id number] : 1955 69 From: Alejo Pierce PCP: Dr. Radha Odom MD Status:REG SDC Y Race: C Location: [place] [address] Anesthesia: Postop Eval I Current Vital Signs [...] Alejo Luevano Signature: Date CC: Signed Normal [facility] MR/DBLXQMYR1df 12-28-2024 MR/POSTOPAN2 [facility] Medical Records Department [address] [place] [address] Anesthesia Postop Eval II 12/28/24 0751 MR#: [id number] Acct: [id number] Name: HALEIGH ALMEIDA Rep #: [id number] : 1955 69 From: Alejo Pierce PCP: Dr. Radha Odom MD Status:REG SDC Y Race: C Location: [place] [address] Anesthesia Postop Eval I Sum Postop Eval Completion status Anesthesia document: Postop Eval 1 completed: Yes Anesthesia Postop Eval I Summary Anesthesia Postop Eval I Summary: Anesthesia Postop Eval I: Assessment Summary Airway patent Yes 12/28/24 07:30 [employer]GER.MDOT Spontaneous unlabored Yes 12/28/24 07:30 [employer] MA[employer]GER.MDOT respirations Mental status Awake,Calm 12/28/24 07:30 [employer] MANAGER.MDOT nausea No 12/28/24 07:30 [employer] MA[employer]GER.MDOT Vomiting No 12/28/24 07:30 [employer] PRO[employer] MANAGER.MDOT Anesthesia Postop Eval I: Fluid Summary Crystalloid volume administer 20 12/28/24 07:30 [employer] PROJECT MANAGER.MDOT (ml) Colloids volume administered ( ml) Blood Product volume administered (ml) Total IV fluid infused 20 12/28/24 07:30 [employer] PROJECT MANAGER.MDOT Anesthesia Postop Eval I: Summary Notes Anesthesia Complication No 12/28/24 07:30 [employer] PROJECT MANAGER.MDOT Anesthesia Complication Comment: Post-operative progress note Anesthesia: Postop Eval II Evaluation Mental status: Awake and Calm Pain Level: 0 nausea: No Vomiting: No Complications Anesthesia Complication: No 12/28/24 0751 Date Alejo Luevano Signature: Date CC: Signed Normal [facility] Surgery Specimen Level Vignesh 12-28-2024 Surgery Specimen Level IV ---- Patient Age/Sex Location Account Attending Physician ---- JUAN PABLOHALEIGH Janie 69/F EN [id number] Tanner Beasley DO ---- Specimen: [id number] Received: 12/28/24 Status: TEETEE Jimenezberenice Num: [id number] Spec Type: COLON BX Subm Dr: Tanner [...] for Helicobacter pylori will be reported separately ([id number]). MICROSCOPIC DESCRIPTION Slides are reviewed. GROSS DESCRIPTION [...] totally submitted in one cassette. 12/28/2024 TC:3 CPT:58793t1 ---- Patient Age/Sex Location Account Attending Physician ---- HALEIGH ALMEIDA 69/F EN [id number] Tanner Beasley DO ---- Signed (signature on file) Dr. Jo-Ann Oseguera MD 12/31/24 1246 ---- Normal [facility] [facility] Comment on above: Performed By: #### P SUIV ####[facility] [address] [place], [address] CBC W/Diff, Automatedon 12-08 Anisocytosis Ql (Bld) 1+ Normal [facility] Comment on above: Performed By: #### L 503.6075, L100.0100, L503.6550, L503.6150 #### [facility] [address] [place], [address] SMEAR COMMENT SCANNED Normal [facility] Comment on above: Performed By: #### L 503.6075, L100.0100, L503.6550, L503.6150 #### [facility] [address] [place], [address] Liver Profileon 12-26-2024 Albumin [Mass/Vol] 3.8 g/dL Normal 3.2-5.0 [facility] Comment on above: Performed By: #### L 503.6075, L100.0100, L503.6550, L503.6150 #### [facility] [address] [place], [address] ALK P 79 U/L Normal 45-117 [facility] Comment on above: Performed By: #### L 503.6075, L100.0100, L503.6550, L503.6150 #### [facility] [address] [place], [address] ALT [Catalytic activity/Vol] 23 U/L Normal 13-56 [facility] Comment on above: Performed By: #### L 503.6075, L100.0100, L503.6550, L503.6150 #### [facility] [address] [place], [address] AST [Catalytic activity/Vol] 17 U/L Normal 15-37 [facility] Comment on above: Performed By: #### L 503.6075, L100.0100, L503.6550, L503.6150 #### [facility] [address] [place], [address] Bilirubin [Mass/Vol] 0.40 mg/dL Normal 0.20-1.00 [facility] Comment on above: Result Comment: For patients on eltrombopag therapy, use of Dimension Marathon TBIL is not recommended. Performed By: #### L 503.6075, L100.0100, L503.6550, L503.6150 #### [facility] [address] [place], [address] Bilirubin.direct [Mass/Vol] 0.11 mg/dL Normal 0.00-0.30 [facility] Comment on above: Performed By: #### L 503.6075, L100.0100, L503.6550, L503.6150 #### [facility] [address] [place], [address] Globulin (S) [Mass/Vol] 4.2 g/dL Normal 2.2-4.2 [facility] Comment on above: Performed By: #### L 503.6075, L100.0100, L503.6550, L503.6150 #### [facility] [address] [place], [address] T PROT 8.0 g/dL Normal 6.4-8.2 [facility] Comment on above: Performed By: #### L 503.6075, L100.0100, L503.6550, L503.6150 #### [facility] [address] [place], [address] Prothrombin Time w/INRon INR Coag (PPP) [Relative time] 1.0 {INR} Normal [facility] Comment on above: Performed By: #### L 503.6075, L100.0100, L503.6550, L503.6150 #### [facility] [address] [place], [address] PT Coag (PPP) [Time] 13.6 s Normal 11.7-14.9 [facility] Comment on above: Performed By: #### L 503.6075, L100.0100, L503.6550, L503.6150 #### [facility] [address] [place], [address] MR/PAT.ANEon 12-25-2024 MR/PAT.[facility] Medical Records Department [address] [place] [address] PAT - Anesthesia 12/25/24 1612 MR#: [id number] Acct: [id number] Name: HALEIGH ALMEIDA Rep #: [id number] : 1955 69 From: Janak Couch MD PCP: Dr. Radha Odom MD Status[place] [facility] [place] Race: C Location: EN Pre-Assessment Diagnosis/Proposed Procedure Planned Operative Procedure(s): EGD, CSCOPE Anesthesia History Anesthesia History - scow captain: Anesthesia History - scow captain Hx Hospitalization Yes: GI BLEED, 10/202412/25/24 12:39 [...] take am of surgery PONV PONV - scow captain: PONV - scow captain Female Yes 12/25/24 12:39 HX of Motion [...] 11/14/24 10:50 Respiratory Assessment Respiratory Assessment - scow captain: Respiratory Tract Infection Hx - scow captain Hx Respiratory Tract Infection No 12/25/24 12:39 STOP Sleep Apnea STOP Sleep Apnea - scow captain: STOP Sleep Apnea - scow captain Hx Hypertension Yes: CONTROLLED WITH MED 12/25/24 [...] Tobacco Use History Tobacco Use History - scow captain: Tobacco Use History - scow captain Tobacco Use Smoking Status Current every day smoker 12/25/24 12:39 Hx Tobacco Use Yes 12/25/24 12:39 Years Smoking Packs Smoked per Day 0.5 12/25/24 12:39 Smoking Cessation Date was within the last 15 years Hx Smoking Cessation Date Hx Smoking Cessation Yes 12/25/24 12:39 Counseling Hematologic Medial History Hematologic Hx - scow captain: Hematologic Medical Hx - tailor men's ready to wear Hx of Blood Transfusion Yes 12/25/24 12:39 [...] confused, unrespo /Reproduction History /Reproductive History - scow captain: /Reproductive Hx- scow captain Hx Now No 12/25/24 12:39 Gestational Age (in weeks): EDC: Hx Hx Para Hx Section SAB No 12/25/24 12:39 [facility] Medical History (Updated 12/25/24 @ 12:49 by Nasra Argueta) Wears glasses Loose, teeth Cancer Depression Bladder disease History of steroid therapy Arthritis High cholesterol Restless legs History of GI bleed On home oxygen therapy Smoker Sleep apnea History of echocardiogram History of stress test Cardiology follow-up encounter GERD (gastroesophageal reflux disease) Lung cancer Anxiety 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 Normal [facility] 12 Lead EKG performed by [facility] on 12-06-2024 12 [place] [address] 12 Lead EKG performed by [facility] 12/06/24 0808 MR#: [id number] Acct: [id number] Name: HALEIGH ALMEIDA Rep #: [id number] : 1955 69 From: Hannah Stevenson CHURN DRILLER CHURN DRILLER-C Attending Dr: MT Watson Status: DEP AMB Ordering Dr: Hannah Stevenson CHURN DRILLER CHURN DRILLER-C Date: 12/06/24 Location: [facility] Sex: F C Admitted: [facility]/12 Lead EKG performed by [facility] ECG Report Interpretation ----Sinus Rhythm -Old anterior infarct. ABNORMAL Electronically signed on 12/08/2024 at 17:07 by Larry [employer] Version 8610 12/08/24 6051 Date Hannah AMOR CC: Dr. Radha Odom MD Date Dictated: 12/06/24807 Date Transcribed: 12/06/24807 Hall Tender: SRINIVASA Signed Normal [facility] Cardiology Visit Reporton Cardiology Visit Report [facility] [address] [place] [address] OFFICE VISIT Date of Service: 12/06/24 MR#: [id number] Acct: [id number] Name: HALEIGH ALMEIDA Rep #: [id number] : 1955 Provider: MT mackenzie Age/Sex: 69/F Location: [facility] Status: Signed HPI HPI History of [...] therapy. Evaluated after being seen in the [facility] emergency department on January 12, 2020 she presented there with profound shortness of breath and some chest discomfort that reminded her of her previous angina. However her troponins were negative x 2 sets and she left AMA in the emergency department. 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 She reports that the symptoms have completely resolved. She has been referred back to radiation oncology to be evaluated in [place] at the [facility]. 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 Normal [facility] Abdomen/Pelvis WITH Contrast on 12-04-2024 Abdomen/Pelvis WITH Contrast [facility] Imaging Services [address] [place] [address] Abdomen/Pelvis WITH Contrast MR#: [id number] Acct: [id number] Name: SEANDARRELHALEIGH J Rep #: [id number] : 1955 F 69 From: Reji Glover DO PCP: Dr. Radha Odom MD Status: REG CLI Study: Abdomen/Pelvis WITH Contrast Date of Exam: Exam# [id number] Ordering Dr: Nivia Moore CHURN DRILLER- C PROCEDURE: ABDOMEN/PELVIS WITH CONTRAST REASON FOR [...] CC: MT Moore; Dr. Radha Odom MD Hall Tender: Signed Normal [facility] Radiation Oncology Visiton 0 11-30-2024 Radiation Oncology Visit [facility] 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 Normal [facility] Chest without Contraston Chest without Contrast [facility] Imaging Services [address] [place] [address] Chest without Contrast MR#: [id number] Acct: [id number] Name: HALEIGH ALMEIDA Rep #: [id number] : 1955 F 69 From: Georgi fraser DO PCP: Dr. Radha Odom MD Status: [facility] Study: Chest without Contrast Date of Exam: 11/28/24 Exam# [id number] Ordering Dr: Honorio Rhodes DO [id number] EXAM: CT CHEST WITHOUT INTRAVENOUS CONTRAST CLINICAL [...] Radha Odom MD; Dr. Honorio Rhodes DO Hall Tender: Signed Normal [facility] CBC W/Diff, Automatedon Anisocytosis Ql (Bld) 1+ Normal [facility] Comment on above: Performed By: #### L 503.6095, L100.0100, L503.3350, L503.0350 #### [facility] [address] [place], [address] Ferritinon 11-14-2024 Ferritin [Mass/Vol] 61 ng/mL Normal 8-252 [facility] Comment on above: Performed By: #### L 503.6075, L100.0100, L503.1723, L503.6804 #### [facility] [address] [place], [address] Gastroenterology Visit Repor ton 11-14-2024 Gastroenterology Visit Report [facility] [address] [place] [address] OFFICE VISIT Date of Service: 11/14/24 MR#: [id number] Acct: [id number] Name: HALEIGH ALMEIDA Rep #: [id number] : 1955 Provider: MT dobbins Age/Sex: 69/F Location: [facility] [place] Status: Signed Intake Vital Signs 10/17/24 14:00 11/14/24 10:50 Height 5 ft 3 in 5 ft 3 in Weight: 148 lb 8 oz BMI 26.3 BP 136/85 H Respiration 16 Pulse 72 Pulse Oximetry (%) 96 Oxygen Delivery Method room air Intake Visit Reasons: Hospital FU Chief Complaint: ED F/U shortness of breath, chest pain Tone Regulator Required: No Accompanied by: Daughter Is patient [...] for anemia. Dont know what caused it. 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 Normal [facility] Ironon 11-14-2024 Iron [Mass/Vol] 43 ug/dL Low 50-170 [facility] Comment on above: Performed By: #### L 503.6075, L100.0100, L503.6550, L503.6150 #### [facility] [address] [place], [address] Iron Binding Capacity,Totalo n 11-14-2024 TIBC 402 ug/dL Normal 250-450 [facility] Comment on above: Performed By: #### L 503.6075, L100.0100, L503.6550, L503.6150 #### [facility] [address] [place], [address] CBC W/Diff, Automatedon 12-1 Absolute Neut Normal 2.0-7.7 [facility] Comment on above: Result Comment: Canc elled via OM: Order cancelled - Patient discharged Performed By: #### L 100.0100 #### [facility] [address] [place], [address] HCT Normal 37-47 [facility] Comment on above: Result Comment: Canc elled via OM: Order cancelled - Patient discharged Performed By: #### L 100.0100 #### [facility] [address] [place], [address] HGB Normal 12.0-15.0 [facility] Comment on above: Result Comment: Canc elled via OM: Order cancelled - Patient discharged Performed By: #### L 100.0100 #### [facility] [address] [place], [address] MCH Normal 27.0-32.0 [facility] Comment on above: Result Comment: Canc elled via OM: Order cancelled - Patient discharged Performed By: #### L 100.0100 #### [facility] [address] [place], [address] MCHC Normal 32-36 [facility] Comment on above: Result Comment: Canc elled via OM: Order cancelled - Patient discharged Performed By: #### L 100.0100 #### [facility] [address] [place], [address] MCV Normal 81-99 [facility] Comment on above: Result Comment: Canc elled via OM: Order cancelled - Patient discharged Performed By: #### L 100.0100 #### [facility] [address] [place], [address] NEUT% Normal 47-70 [facility] Comment on above: Result Comment: Canc elled via OM: Order cancelled - Patient discharged Performed By: #### L 100.0100 #### [facility] [address] [place], [address] PLT Normal 150-450 [facility] Comment on above: Result Comment: Canc elled via OM: Order cancelled - Patient discharged Performed By: #### L 100.0100 #### [facility] [address] [place], [address] RBC Normal 4.2-5.4 [facility] Comment on above: Result Comment: Canc elled via OM: Order cancelled - Patient discharged Performed By: #### L 100.0100 #### [facility] [address] [place], [address] RDW CV Normal 11.6-14.6 [facility] Comment on above: Result Comment: Canc elled via OM: Order cancelled - Patient discharged Performed By: #### L 100.0100 #### [facility] [address] [place], [address] RDW SD Normal 35.1-43.9 [facility] Comment on above: Result Comment: Canc elled via OM: Order cancelled - Patient discharged Performed By: #### L 100.0100 #### [facility] [address] [place], [address] WBC Normal 4.4-11.0 [facility] Comment on above: Result Comment: Canc elled via OM: Order cancelled - Patient discharged Performed By: #### L 100.0100 #### [facility] [address] [place], [address] CBC W/Diff, Automatedon 12-1 2-2024 Absolute Lymph 0.84 X10 3/uL Normal 0.83-4.51 [facility] Comment on above: Performed By: #### L 503.6075, L100.0100, L503.6550, L503.6150 #### [facility] [address] [place], [address] Absolute Neut 10.9 X10 3/uL High 2.0-7.7 [facility] Comment on above: Performed By: #### L 503.6075, L100.0100, L503.6550, L503.6150 #### [facility] [address] [place], [address] Basophils/100 WBC (Bld) 0.1 % Normal 0-1 [facility] Comment on above: Performed By: #### L 503.6075, L100.0100, L503.6550, L503.6150 #### [facility] [address] [place], [address] Eosinophils/100 WBC (Bld) 0.0 % Normal 0-5 [facility] Comment on above: Performed By: #### L 503.6075, L100.0100, L503.6550, L503.6150 #### [facility] [address] [place], [address] Erythrocyte distribution width (RBC) [Ratio] 20.3 % High 11.6-14.6 [facility] Comment on above: Performed By: #### L 503.6075, L100.0100, L503.6550, L503.6150 #### [facility] [address] [place], [address] Hematocrit (Bld) [Volume fraction] 29.8 % Low 37-47 [facility] Comment on above: Performed By: #### L 503.6075, L100.0100, L503.6550, L503.6150 #### [facility] [address] [place], [address] Hemoglobin (Bld) [Mass/Vol] 8.6 g/dL Low 12.0-15.0 [facility] Comment on above: Performed By: #### L 503.6075, L100.0100, L503.6550, L503.6150 #### [facility] [address] [place], [address] IG% 1.200 High 0.0-0.9 [facility] Comment on above: Result Comment: IG% - Immature Granulocytes (promyelocytes, myelocytes and metamyelocytes) > 1% indicates that a LEFT SHIFT is Present. Performed By: #### L 503.6075, L100.0100, L503.6550, L503.6150 #### [facility] [address] [place], [address] Lymphocytes/100 WBC (Bld) 7.0 % Low 19-41 [facility] Comment on above: Performed By: #### L 503.6075, L100.0100, L503.6550, L503.6150 #### [facility] [address] [place], [address] MCH (RBC) [Entitic mass] 20.3 pg Low 27.0-32.0 [facility] Comment on above: Performed By: #### L 503.6075, L100.0100, L503.6550, L503.6150 #### [facility] [address] [place], [address] MCHC (RBC) [Mass/Vol] 28.9 g/dL Low 32-36 [facility] Comment on above: Performed By: #### L 503.6075, L100.0100, L503.6550, L503.6150 #### [facility] [address] [place], [address] MCV (RBC) [Entitic vol] 70.4 fL Low 81-99 [facility] Comment on above: Performed By: #### L 503.6075, L100.0100, L503.6550, L503.6150 #### [facility] [address] [place], [address] Monocytes/100 WBC (Bld) 1.7 % Normal 0-10 [facility] Comment on above: Performed By: #### L 503.6075, L100.0100, L503.6550, L503.6150 #### [facility] [address] [place], [address] Neutrophils/100 WBC (Bld) 90.0 % High 47-70 [facility] Comment on above: Performed By: #### L 503.6075, L100.0100, L503.6550, L503.6150 #### [facility] [address] [place], [address] Nucleated RBC (Bld) [#/Vol] 0 10*3/uL Normal 0-5 [facility] Comment on above: Performed By: #### L 503.6075, L100.0100, L503.6550, L503.6150 #### [facility] [address] [place], [address] Platelet mean volume (Bld) [Entitic vol] 10.0 fL Normal 6.2-12.0 [facility] Comment on above: Performed By: #### L 503.6075, L100.0100, L503.6550, L503.6150 #### [facility] [address] [place], [address] Platelets (Bld) [#/Vol] 219 10*3/uL Normal 150-450 [facility] Comment on above: Performed By: #### L 503.6075, L100.0100, L503.6550, L503.6150 #### [facility] [address] [place], [address] RBC (Bld) [#/Vol] 4.23 10*6/uL Normal 4.2-5.4 [facility] Comment on above: Performed By: #### L 503.6075, L100.0100, L503.6550, L503.6150 #### [facility] [address] [place], [address] RDW SD 50.3 fl High 35.1-43.9 [facility] Comment on above: Performed By: #### L 503.6075, L100.0100, L503.6550, L503.6150 #### [facility] [address] [place], [address] WBC (Bld) [#/Vol] 12.1 10*3/uL High 4.4-11.0 [facility] Comment on above: Performed By: #### L 503.6075, L100.0100, L503.6550, L503.6150 #### [facility] [address] [place], [address] BRCon 10-17-2024 RC Normal [facility] Comment on above: Result Comment: [id number] AP RC TRANSFUSED 10/17/24 1314 Performed By: #### B , [facility] ####[facility] [address] [place], [address] CBC W/Diff, Automatedon 10-07 Absolute Lymph 0.78 X10 3/uL Low 0.83-4.51 [facility] Comment on above: Performed By: #### L 503.6075, L100.0100, L503.6550, L503.6150 #### [facility] [address] [place], [address] Absolute Neut 5.6 X10 3/uL Normal 2.0-7.7 [facility] Comment on above: Performed By: #### L 503.6075, L100.0100, L503.6550, L503.6150 #### [facility] [address] [place], [address] Basophils/100 WBC (Bld) 0.2 % Normal 0-1 [facility] Comment on above: Performed By: #### L 503.6075, L100.0100, L503.6550, L503.6150 #### [facility] [address] [place], [address] Eosinophils/100 WBC (Bld) 0.0 % Normal 0-5 [facility] Comment on above: Performed By: #### L 503.6075, L100.0100, L503.6550, L503.6150 #### [facility] [address] [place], [address] Erythrocyte distribution width (RBC) [Ratio] 18.8 % High 11.6-14.6 [facility] Comment on above: Performed By: #### L 503.6075, L100.0100, L503.6550, L503.6150 #### [facility] [address] [place], [address] Hematocrit (Bld) [Volume fraction] 23.3 % Low 37-47 [facility] Comment on above: Performed By: #### L 503.6075, L100.0100, L503.6550, L503.6150 #### [facility] [address] [place], [address] Hemoglobin (Bld) [Mass/Vol] 6.3 g/dL Low 12.0-15.0 [facility] Comment on above: Performed By: #### L 503.6075, L100.0100, L503.6550, L503.6150 #### [facility] [address] [place], [address] IG% 0.600 Normal 0.0-0.9 [facility] Comment on above: Result Comment: IG% - Immature Granulocytes (promyelocytes, myelocytes and metamyelocytes) > 1% indicates that a LEFT SHIFT is Present. Performed By: #### L 503.6075, L100.0100, L503.6550, L503.6150 #### [facility] [address] [place], [address] Lymphocytes/100 WBC (Bld) 11.7 % Low 19-41 [facility] Comment on above: Performed By: #### L 503.6075, L100.0100, L503.6550, L503.6150 #### [facility] [address] [place], [address] MCH (RBC) [Entitic mass] 18.5 pg Low 27.0-32.0 [facility] Comment on above: Performed By: #### L 503.6075, L100.0100, L503.6550, L503.6150 #### [facility] [address] [place], [address] MCHC (RBC) [Mass/Vol] 27.0 g/dL Low 32-36 [facility] Comment on above: Performed By: #### L 503.6075, L100.0100, L503.6550, L503.6150 #### [facility] [address] [place], [address] MCV (RBC) [Entitic vol] 68.3 fL Low 81-99 [facility] Comment on above: Performed By: #### L 503.6075, L100.0100, L503.6550, L503.6150 #### [facility] [address] [place], [address] Monocytes/100 WBC (Bld) 2.9 % Normal 0-10 [facility] Comment on above: Performed By: #### L 503.6075, L100.0100, L503.6550, L503.6150 #### [facility] [address] [place], [address] Neutrophils/100 WBC (Bld) 84.6 % High 47-70 [facility] Comment on above: Performed By: #### L 503.6075, L100.0100, L503.6550, L503.6150 #### [facility] [address] [place], [address] Nucleated RBC (Bld) [#/Vol] 0 10*3/uL Normal 0-5 [facility] Comment on above: Performed By: #### L 503.6075, L100.0100, L503.6550, L503.6150 #### [facility] [address] [place], [address] Platelet mean volume (Bld) [Entitic vol] 10.0 fL Normal 6.2-12.0 [facility] Comment on above: Performed By: #### L 503.6075, L100.0100, L503.6550, L503.6150 #### [facility] [address] [place], [address] Platelets (Bld) [#/Vol] 167 10*3/uL Normal 150-450 [facility] Comment on above: Performed By: #### L 503.6075, L100.0100, L503.6550, L503.6150 #### [facility] [address] [place], [address] RBC (Bld) [#/Vol] 3.41 10*6/uL Low 4.2-5.4 [facility] Comment on above: Performed By: #### L 503.6075, L100.0100, L503.6550, L503.6150 #### [facility] [address] [place], [address] RDW SD 46.2 fl High 35.1-43.9 [facility] Comment on above: Performed By: #### L 503.6075, L100.0100, L503.6550, L503.6150 #### [facility] [address] [place], [address] WBC (Bld) [#/Vol] 6.6 10*3/uL Normal 4.4-11.0 [facility] Comment on above: Performed By: #### L 503.6075, L100.0100, L503.6550, L503.6150 #### [facility] [address] [place], [address] Comprehensive Metabolic Prof [facility] 10-17-2024 Albumin [Mass/Vol] 3.0 g/dL Low 3.2-5.0 [facility] Comment on above: Performed By: #### L 503.6075, L100.0100, L503.6550, L503.6150 #### [facility] [address] [place], [address] Albumin/Globulin [Mass ratio] 0.8 {ratio} Low 0.9-2.4 [facility] Comment on above: Performed By: #### L 503.6075, L100.0100, L503.6550, L503.6150 #### [facility] [address] [place], [address] ALK P 60 U/L Normal 45-117 [facility] Comment on above: Performed By: #### L 503.6075, L100.0100, L503.6550, L503.6150 #### [facility] [address] [place], [address] ALT [Catalytic activity/Vol] 13 U/L Normal 13-56 [facility] Comment on above: Performed By: #### L 503.6075, L100.0100, L503.6550, L503.6150 #### [facility] [address] [place], [address] AST [Catalytic activity/Vol] 11 U/L Low 15-37 [facility] Comment on above: Performed By: #### L 503.6075, L100.0100, L503.6550, L503.6150 #### [facility] [address] [place], [address] Bilirubin [Mass/Vol] 0.40 mg/dL Normal 0.20-1.00 [facility] Comment on above: Result Comment: For patients on eltrombopag therapy, use of Dimension Marathon TBIL is not recommended. Performed By: #### L 503.6075, L100.0100, L503.6550, L503.6150 #### [facility] [address] [place], [address] BUN/CRE 17.6 RATIO Normal 10-20 [facility] Comment on above: Performed By: #### L 503.6075, L100.0100, L503.6550, L503.6150 #### [facility] [address] [place], [address] CA,Total 8.9 mg/dL Normal 8.5-10.1 [facility] Comment on above: Performed By: #### L 503.6075, L100.0100, L503.6550, L503.6150 #### [facility] [address] [place], [address] Chloride [Moles/Vol] 105 mmol/L Normal 98-107 [facility] Comment on above: Performed By: #### L 503.6075, L100.0100, L503.6550, L503.6150 #### [facility] [address] [place], [address] CO2 [Moles/Vol] 24.0 mmol/L Normal 21.0-32.0 [facility] Comment on above: Performed By: #### L 503.6075, L100.0100, L503.6550, L503.6150 #### [facility] [address] [place], [address] Creatinine [Mass/Vol] 1.02 mg/dL Normal 0.55-1.02 [facility] Comment on above: Result Comment: The validity of the calculated GFR GFRAA in patients over 70 years has not been determined. Clinical correlation is essential. Performed By: #### L 503.6075, L100.0100, L503.6550, L503.6150 #### [facility] [address] [place], [address] ECRCL 48.79 ml/min Normal [facility] Comment on above: Performed By: #### L 503.6075, L100.0100, L503.6550, L503.6150 #### [facility] [address] [place], [address] EST GFR - AA 69 mL/min Normal >60 [facility] Comment on above: Result Comment: Afri can Bhutanese GFR Calc Performed By: #### L 503.6075, L100.0100, L503.6550, L503.6150 #### [facility] [address] [place], [address] GAP 5 Normal 5-15 [facility] Comment on above: Performed By: #### L 503.6075, L100.0100, L503.6550, L503.6150 #### [facility] [address] [place], [address] GFR/1.73 sq M.predicted among non-blacks MDRD (S/P/Bld) [Vol rate/Area] 57 mL/min/{1.73_m2} Low >60 [facility] Comment on above: Result Comment: Non- GFR Calc Performed By: #### L 503.6075, L100.0100, L503.6550, L503.6150 #### [facility] [address] [place], [address] Globulin (S) [Mass/Vol] 3.8 g/dL Normal 2.2-4.2 [facility] Comment on above: Performed By: #### L 503.6075, L100.0100, L503.6550, L503.6150 #### [facility] [address] [place], [address] Glucose [Mass/Vol] 129 mg/dL High 74-106 [facility] Comment on above: Result Comment: Fast ing Glucose result greater than or equal to 126 mg/dL suggests DIABETES MELLITUS per A.D.A. criteria. Performed By: #### L 503.6075, L100.0100, L503.6550, L503.6150 #### [facility] [address] [place], [address] Potassium [Moles/Vol] 4.4 mmol/L Normal 3.5-5.1 [facility] Comment on above: Performed By: #### L 503.6075, L100.0100, L503.6550, L503.6150 #### [facility] [address] [place], [address] Sodium [Moles/Vol] 134 mmol/L Low 136-145 [facility] Comment on above: Performed By: #### L 503.6075, L100.0100, L503.6550, L503.6150 #### [facility] [address] [place], [address] T PROT 6.8 g/dL Normal 6.4-8.2 [facility] Comment on above: Performed By: #### L 503.6075, L100.0100, L503.6550, L503.6150 #### [facility] [address] [place], [address] Urea nitrogen [Mass/Vol] 18 mg/dL Normal 7-18 [facility] Comment on above: Performed By: #### L 503.6075, L100.0100, L503.6550, L503.6150 #### [facility] [address] [place], [address] Echo Completeon 10-17-2024 Echo Complete [facility] [address] [place] [address] Echo Complete 10/17/24 0857 MR#: [id number] Acct: [id number] Name: HALEIGH ALMEIDA Rep #: [id number] : 1955 69 From: Larry Burnham MD [...] DO Date Dictated: 10/17/24856 Date Transcribed: 10/17/241055 Hall Tender: Signed Normal [facility] L501.4020on 10-17-2024 TROPONIN-I HS 132 pg/mL Invalid Interpretation Code 3.0-54.0 [facility] Comment on above: Order Comment: 'TROP ' Serial specimen #1, #2 or #3: 3 Result Comment: Crit ical Result(s) Called at: 23:59:40 10/16/2024 by: Kaylyn Moraes. Results read back by same. Please Note: New Test Units and Gender Specific Reference Ranges. For more information see Policy Stat Procedure Marathon High Sensitivity Troponin (TNIH) and attachments. Performed By: #### L 503.6075, L100.0100, L503.6550, L503.6150 #### [facility] [address] [place], [address] Legionella Antigen Urineon 1 12-18-2023 LEGU URINE, [...] been changed. 10/19/24 0836 by KAVIN Normal [facility] Comment on above: Performed By: #### L 503.6075, L100.0100, L503.6550, L503.6150 #### [facility] [address] [place], [address] Lipid Profileon 10-17-2024 Cholesterol [Mass/Vol] 126 mg/dL Normal 200 [facility] Comment on above: Result Comment: <200 mg/dL Desirable 200-240 mg/dL Borderline >240 mg/dL High Risk Performed By: #### L 503.6075, L100.0100, L503.6550, L503.6150 #### [facility] [address] [place], [address] Cholesterol in HDL [Mass/Vol] 64 mg/dL Normal [facility] Comment on above: Result Comment: The drugs N-Acetylcysteine and Metamizole may falsely depress this assay. Reference Range HDL <40 mg/dL Low HDL Cholesterol HDL >or= 60 mg/dL High HDL Cholesterol Performed By: #### L 503.6075, L100.0100, L503.6550, L503.6150 #### [facility] [address] [place], [address] Cholesterol in LDL [Mass/Vol] 50 mg/dL Normal 0-130 [facility] Comment on above: Performed By: #### L 503.6075, L100.0100, L503.6550, L503.6150 #### [facility] [address] [place], [address] Cholesterol in VLDL [Mass/Vol] 12 mg/dL Normal 5-40 [facility] Comment on above: Performed By: #### L 503.6075, L100.0100, L503.6550, L503.6150 #### [facility] [address] [place], [place], [address] Triglyceride [Mass/Vol] 61 mg/dL Normal [facility] Comment on above: Result Comment: The drugs N-Acetylcysteine and Metamizole may falsely depress this assay. Serum Triglycerides Reference Interval Normal <150 mg/dL Borderline high 150 - 199 mg/dL High 200 - 499 mg/dL Very High > or = 500 mg/dL Performed By: #### L 503.6075, L100.0100, L503.6550, L503.6150 #### [facility] [address] [place], [address] RESPIRATORY PANEL MOLECULARo n 10-17-2024 [...] Not Detected RSV B Not Detected Normal [facility] Comment on above: Performed By: #### L 503.6075, L100.0100, L503.6550, L503.6150 #### [facility] [address] [place], [address] Strep pneumoniae Antig(UR,CS F)on 10-17-2024 [...] has been changed. 10/19/24 0837 by KAVIN [facility] Comment on above: Performed By: #### L 503.6075, L100.0100, L503.6550, L503.6150 #### [facility] [address] [place], [address] Type AND Screenon 10-17-2024 Ab SCREEN GEL Negative [facility] Comment on above: Order Comment: CMV N EG? NNumber of units to transfuse: 1Is pt's Hgb is = to 7.0 mg/dl or Hct </= 21%? YReason for Ordering Blood: ChronicAre the blood/blood products to be transfused? YIs the patient having/had surgery? NWhen ReadyNY Performed By: #### B TS, BRC ####[facility] [address] [place], [address] 12 Lead EKGon 10-16-2024 12 Lead EKG [facility] Cardiovascular Services [address] [place] [address] 12 Lead EKG 10/16/24 1714 MR#: [id number] Acct: [id number] Name: HALEIGH ALMEIDA Rep #: [id number] : 1955 69 From: Larry Burnham MD Attending Dr: Dr. Jevon Bustillo, DO Status: DIS IN Ordering Dr: Veronique Moulton MD Date: 10/16/24 Location: [facility] Sex: F C Admitted: 10/16/24 Test Reason [...] ventricular pacemaker Confirmed by JOSEPHINE CHOI, LARRY ([id number]), editor house organ TRENT CAM ([id number]) on 10/24/2024 2:47:01 PM Referred By: Confirmed By: LARRY BURNHAM MD 10/24/24 1447 Date Larry Burnham MD CC: Dr. Veronique Moulton MD; Dr. Radha Odom MD; Dr. Jevon Bustillo DO Signed [facility] 12 Lead EKG [facility] Cardi[facility] Services [address] [place] [address] 12 Lead EKG 10/16/24 2147 MR#: [id number] Acct: [id number] Name: HALEIGH ALMEIDA Rep #: [id number] : 1955 69 From: Larry Burnham MD Attending Dr: Dr. Jevon Bustillo DO Status: ADM IN Ordering Dr: Jevon Lindsay DO Date: 10/16/24 Location: [facility] Sex: F C Admitted: 10/16/24 Test Reason [...] UNCONFIRMED Confirmed by LARRY BURNHAM MD ([id number]), editor house organ BAR GUERRA ([id number]) on 10/17/2024 2:17:02 PM Referred By: KENNEY Confirmed By: LARRY BURNHAM MD 10/17/24 1417 Date Larry Burnham MD CC: Dr. Radha Odom MD; Dr. Jevon Bustillo DO; Dr. Jevon Lindsay DO Signed [facility] Basic Metabolic Profile (BMP )on 10-16-2024 BUN/CRE 10.9 RATIO Normal 10-20 [facility] Comment on above: Order Comment: 'TROP ' Serial specimen #1, #2 or #3: 1 Performed By: #### L 500.2500, L501.4020, L100.0100 ####[facility] [address] [place], [address] CA,Total 9.2 mg/dL Normal 8.5-10.1 [facility] Comment on above: Order Comment: 'TROP ' Serial specimen #1, #2 or #3: 1 Performed By: #### L 500.2500, L501.4020, L100.0100 ####[facility] [address] [place], [address] Chloride [Moles/Vol] 102 mmol/L Normal 98-107 [facility] Comment on above: Order Comment: 'TROP ' Serial specimen #1, #2 or #3: 1 Performed By: #### L 500.2500, L501.4020, L100.0100 ####[facility] [address] [place], [address] CO2 [Moles/Vol] 24.0 mmol/L Normal 21.0-32.0 [facility] Comment on above: Order Comment: 'TROP ' Serial specimen #1, #2 or #3: 1 Performed By: #### L 500.2500, L501.4020, L100.0100 ####[facility] [address] [place], [address] Creatinine [Mass/Vol] 1.01 mg/dL Normal 0.55-1.02 [facility] Comment on above: Order Comment: 'TROP ' Serial specimen #1, #2 or #3: 1 Result Comment: The validity of the calculated GFR GFRAA in patients over 70 years has not been determined. Clinical correlation is essential. Performed By: #### L 500.2500, L501.4020, L100.0100 ####[facility] [address] [place], [address] EST GFR - AA 70 mL/min Normal >60 [facility] Comment on above: Order Comment: 'TROP ' Serial specimen #1, #2 or #3: 1 Result Comment: Afri can Bhutanese GFR Calc Performed By: #### L 500.2500, L501.4020, L100.0100 ####[facility] [address] [place], [address] GAP 6 Normal 5-15 [facility] Comment on above: Order Comment: 'TROP ' Serial specimen #1, #2 or #3: 1 Performed By: #### L 500.2500, L501.4020, L100.0100 ####[facility] [address] [place], [address] GFR/1.73 sq M.predicted among non-blacks MDRD (S/P/Bld) [Vol rate/Area] 58 mL/min/{1.73_m2} Low >60 [facility] Comment on above: Order Comment: 'TROP ' Serial specimen #1, #2 or #3: 1 Result Comment: Non- GFR Calc Performed By: #### L 500.2500, L501.4020, L100.0100 ####[facility] [address] [place], [address] Glucose [Mass/Vol] 110 mg/dL High 74-106 [facility] Comment on above: Order Comment: 'TROP ' Serial specimen #1, #2 or #3: 1 Result Comment: Fast ing Glucose result from 100 to 125 mg/dL suggests IMPAIRED HOMEOSTASIS per A.D.A. criteria. Performed By: #### L 500.2500, L501.4020, L100.0100 ####[facility] [address] [place], [address] Potassium [Moles/Vol] 3.8 mmol/L Normal 3.5-5.1 [facility] Comment on above: Order Comment: 'TROP ' Serial specimen #1, #2 or #3: 1 Performed By: #### L 500.2500, L501.4020, L100.0100 ####[facility] [address] [place], [address] Sodium [Moles/Vol] 133 mmol/L Low 136-145 [facility] Comment on above: Order Comment: 'TROP ' Serial specimen #1, #2 or #3: 1 Performed By: #### L 500.2500, L501.4020, L100.0100 ####[facility] [address] [place], [address] Urea nitrogen [Mass/Vol] 11 mg/dL Normal 7-18 [facility] Comment on above: Order Comment: 'TROP ' Serial specimen #1, #2 or #3: 1 Performed By: #### L 500.2500, L501.4020, L100.0100 ####[facility] [address] [place], [address] CBC W/Diff, Automatedon 12-1 0-2024 Absolute Lymph 1.18 X10 3/uL Normal 0.83-4.51 [facility] Comment on above: Performed By: #### L 500.2500, L501.4020, L100.0100 #### [facility] [address] [place], [address] Absolute Neut 6.9 X10 3/uL Normal 2.0-7.7 [facility] Comment on above: Performed By: #### L 500.2500, L501.4020, L100.0100 #### [facility] [address] [place], [address] Basophils/100 WBC (Bld) 0.4 % Normal 0-1 [facility] Comment on above: Performed By: #### L 500.2500, L501.4020, L100.0100 #### [facility] [address] [place], [address] Eosinophils/100 WBC (Bld) 0.6 % Normal 0-5 [facility] Comment on above: Performed By: #### L 500.2500, L501.4020, L100.0100 #### [facility] [address] [place], [address] Erythrocyte distribution width (RBC) [Ratio] 18.7 % High 11.6-14.6 [facility] Comment on above: Performed By: #### L 500.2500, L501.4020, L100.0100 #### [facility] [address] [place], [address] Hematocrit (Bld) [Volume fraction] 24.8 % Low 37-47 [facility] Comment on above: Performed By: #### L 500.2500, L501.4020, L100.0100 #### [facility] [address] [place], [address] Hemoglobin (Bld) [Mass/Vol] 7.0 g/dL Low 12.0-15.0 [facility] Comment on above: Performed By: #### L 500.2500, L501.4020, L100.0100 #### [facility] [address] [place], [address] IG% 0.900 Normal 0.0-0.9 [facility] Comment on above: Result Comment: IG% - Immature Granulocytes (promyelocytes, myelocytes and metamyelocytes) > 1% indicates that a LEFT SHIFT is Present. Performed By: #### L 500.2500, L501.4020, L100.0100 #### [facility] [address] [place], [address] Lymphocytes/100 WBC (Bld) 12.8 % Low 19-41 [facility] Comment on above: Performed By: #### L 500.2500, L501.4020, L100.0100 #### [facility] [address] [place], [address] MCH (RBC) [Entitic mass] 18.9 pg Low 27.0-32.0 [facility] Comment on above: Performed By: #### L 500.2500, L501.4020, L100.0100 #### [facility] [address] [place], [address] MCHC (RBC) [Mass/Vol] 28.2 g/dL Low 32-36 [facility] Comment on above: Performed By: #### L 500.2500, L501.4020, L100.0100 #### [facility] [address] [place], [address] MCV (RBC) [Entitic vol] 67.0 fL Low 81-99 [facility] Comment on above: Performed By: #### L 500.2500, L501.4020, L100.0100 #### [facility] [address] [place], [address] Monocytes/100 WBC (Bld) 10.2 % High 0-10 [facility] Comment on above: Performed By: #### L 500.2500, L501.4020, L100.0100 #### [facility] [address] [place], [address] Neutrophils/100 WBC (Bld) 75.1 % High 47-70 [facility] Comment on above: Performed By: #### L 500.2500, L501.4020, L100.0100 #### [facility] [address] [place], [address] Nucleated RBC (Bld) [#/Vol] 0 10*3/uL Normal 0-5 [facility] Comment on above: Performed By: #### L 500.2500, L501.4020, L100.0100 #### [facility] [address] [place], [address] Platelet mean volume (Bld) [Entitic vol] 10.0 fL Normal 6.2-12.0 [facility] Comment on above: Performed By: #### L 500.2500, L501.4020, L100.0100 #### [facility] [address] [place], [address] Platelets (Bld) [#/Vol] 172 10*3/uL Normal 150-450 [facility] Comment on above: Performed By: #### L 500.2500, L501.4020, L100.0100 #### [facility] [address] [place], [address] RBC (Bld) [#/Vol] 3.70 10*6/uL Low 4.2-5.4 [facility] Comment on above: Performed By: #### L 500.2500, L501.4020, L100.0100 #### [facility] [address] [place], [address] RDW SD 44.3 fl High 35.1-43.9 [facility] Comment on above: Performed By: #### L 500.2500, L501.4020, L100.0100 #### [facility] [address] [place], [address] WBC (Bld) [#/Vol] 9.2 10*3/uL Normal 4.4-11.0 [facility] Comment on above: Performed By: #### L 500.2500, L501.4020, L100.0100 #### [facility] [address] [place], [address] Chest PA and Lateralon 10-16 Chest PA and Lateral [facility] Imaging Services [address] [place] [address] Chest PA and Lateral MR#: [id number] Acct: [id number] Name: HALEIGH ALMEIDA Rep #: [id number] : 1955 F 69 From: Nas burnette MD PCP: Dr. Radha Odom MD Status: REG ER Study: Chest PA and Lateral Date of Exam: 10/16/24 Exam# [id number] Ordering Dr: Jevon Lindsay DO [id number] STUDY: X-RAY CHEST REASON FOR EXAM: Female, [...] Radha Odom MD; Dr. Jevon Lindsay DO Hall Tender: Signed Normal [facility] Emergency Department Summary on 10-16-2024 Emergency Department Summary [facility] Medical Records Department [address] [place] [address] Emergency Department Summary 10/16/24 MR#: [id number] Acct: [id number] Name: HALEIGH ALMEIDA Rep #: [id number] : 1955 69 From: Jevon Lindsay DO PCP: Dr. Radha Odom MD Status:ADM IN Location: [address] History of Present Illness Chief Complaint: [...] any fevers over the past few weeks. 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 Normal [facility] Ferritinon 10-16-2024 Ferritin [Mass/Vol] 19 ng/mL Normal 8-252 [facility] Comment on above: Performed By: #### L 503.6075, L100.0100, L503.6550, L503.6150 #### [facility] [address] [facility] [place], [address] H AND P Exam - Hospitaliston 10-16-2024 H&P Exam - Hospitalist [facility] Medical Records Department [address] [place] [address] H P Exam - Hospitalist 10/16/241927 MR#: [id number] Acct: [id number] Name: HALEIGH ALMEIDA Rep #: [id number] : 1955 69 From: Veronique Moulton MD PCP: Dr. Radha Odom MD Status:ADM IN Location: [place] [address] HPI - General General Date of Admission: [...] Hx GI bleed who presents to the [facility] ED on 10/16/2024 with history of left [...] patient was administered DuoNeb therapy, aspirin full-strength. 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 Normal [facility] Iron+Iron Binding Capacityon 10-16-2024 Iron [Mass/Vol] 17 ug/dL Low 50-170 [facility] Comment on above: Performed By: #### L 503.6065, L100.0100, L503.8960, L503.1650 #### [facility] [address] [place], [address] IRON SATURATION 4.1 Low 15.0-55.0 [facility] Comment on above: Performed By: #### L 503.6075, L100.0100, L503.6550, L503.6150 #### [facility] [address] [place], [address] TIBC 416 ug/dL Normal 250-450 [facility] Comment on above: Performed By: #### L 503.6075, L100.0100, L503.6550, L503.6150 #### [facility] [address] [place], [address] L501.4020on 10-16-2024 TROPONIN-I HS 147 pg/mL Invalid Interpretation Code 3.0-54.0 [facility] Comment on above: Order Comment: 'TROP ' Serial specimen #1, #2 or #3: 2 Result Comment: Crit ical Result(s) Called at: 19:43:43 10/16/2024 by: MERLENE MADDEN TO NAZARIO CARLISLE. Results read back by same. Please Note: New Test Units and Gender Specific Reference Ranges. For more information see Policy Stat Procedure Marathon High Sensitivity Troponin (TNIH) and attachments. Performed By: #### L 501.4020 #### [facility] [address] [place], [address] TROPONIN-I HS 139 pg/mL Invalid Interpretation Code 3.0-54.0 [facility] Comment on above: Order Comment: 'TROP ' Serial specimen #1, #2 or #3: 1 Result Comment: Crit ical Result(s) Called at: 17:32:56 10/16/2024 by: MERLENE MADDEN TO BENJAMIN VYAS. Results read back by same. Please Note: New Test Units and Gender Specific Reference Ranges. For more information see Policy Stat Procedure Marathon High Sensitivity Troponin (TNIH) and attachments. Performed By: #### L 500.2500, L501.4020, L100.0100 ####[facility] [address] [place], [address] Magnesiumon 10-16-2024 Magnesium [Mass/Vol] 2.1 mg/dL Normal 1.6-2.6 [facility] Comment on above: Order Comment: Comme nts: may add to ED labs Performed By: #### L 503.6075, L100.0100, L503.6550, L503.6150 #### [facility] [address] [place], [place], [address] Procalcitoninon 10-16-2024 Procalcitonin 0.14 ng/mL High 0.00-0.09 [facility] Comment on above: Result Comment: A procalcitonin [...] #### L 503.6075, L100.0100, L503.6550, L503.6150 #### [facility] [address] 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 Normal [facility] Absolute lymphocyte countOrd ered By: Nivia Campoverde on 06-09-2023 Lymphocytes Auto (Unsp spec) [#/Vol] 1.74 10*3/uL 0.83-4.51 [facility] Basophil percentageOrdered B y: Nivia Campoverde on 06-09-2023 Basophils/100 WBC (Bld) 0.9 % 0-1 [facility] Bilirubin [Mass/Vol] 0.40 mg/dL 0.20-1.00 [facility] Comment on above: For patients on eltr ombopag therapy, use of Dimension Marathon TBIL is not recommended. Chloride [Moles/Vol] 102 mmol/L 98-107 [facility] Eosinophils/100 WBC (Bld) 1.8 % 0-5 [facility] Glucose [Mass/Vol] 126 mg/dL 74-106 [facility] Comment on above: Fasting Glucose resu lt greater than or equal to 126 mg/dL suggests DIABETES MELLITUS per A.D.A. criteria. Neutrophils (Bld) [#/Vol] 3.1 10*3/uL 2.0-7.7 [facility] Neutrophils/100 WBC (Bld) 55.8 % 47-70 [facility] Potassium [Moles/Vol] 3.8 mmol/L 3.5-5.1 [facility] Protein [Mass/Vol] 7.5 g/dL 6.4-8.2 [facility] Sodium [Moles/Vol] 135 mmol/L 136-145 [facility] WBC (Bld) [#/Vol] 5.5 10*3/uL 4.4-11.0 [facility] Blood erythrocytes count (nu mber/volume)Ordered By: Nivia Campoverde on 06-09-2023 RBC (Bld) [#/Vol] 4.59 10*6/uL 4.2-5.4 [facility] Blood hemoglobin measurement (mass/volume)Ordered By: Nivia Campoverde on 06-09-2023 Hemoglobin (Bld) [Mass/Vol] 11.4 g/dL 12.0-15.0 [facility] Blood lymphocytes/100 leukoc ytesOrdered By: Nivia Campoverde on 06-09-2023 Lymphocytes/100 WBC (Bld) 31.6 % 19-41 [facility] Blood monocytes/100 leukocyt esOrdered By: Nivia Campoverde on 06-09-2023 Monocytes/100 WBC (Bld) 9.5 % 0-10 [facility] Blood platelet mean volumeOr dered By: Nivia Campoverde on 06-09-2023 Platelet mean volume (Bld) [Entitic vol] 9.9 fL 6.2-12.0 [facility] Determination of erythrocyte mean corpuscular volume (MCV)Ordered By: Nivia Campoverde on 06-09-2023 MCV (RBC) [Entitic vol] 78.6 fL 81-99 [facility] Direct bilirubinOrdered By: Nivia Campoverde on 06-09-2023 Bilirubin.direct [Mass/Vol] 0.13 mg/dL 0.00-0.30 [facility] Hematocrit Auto (Bld) [Volum e fraction]Ordered By: Nivia Campoverde on 06-09-2023 Hematocrit (Bld) [Volume fraction] 36.1 % 37-47 [facility] - Chemistry and C hemistry - challengeOrdered By: Nivia Campoverde on 06-09-2023 ALP [Catalytic activity/Vol] 74 U/L 45-117 [facility] ALT [Catalytic activity/Vol] 25 U/L 13-56 [facility] CO2 [Moles/Vol] 24.0 mmol/L 21.0-32.0 [facility] Globulin (S) [Mass/Vol] 4.1 g/dL 2.2-4.2 [facility] Lipase [Catalytic activity/Vol] 27 U/L 13-75 [facility] Comment on above: Please note:LIPASE r evised reference range effective 23. New Lipase methodology. Expected to produce lower values than the previous assay method. NEW Reference Range: 13 - 75 U/L Urea nitrogen/Creatinine [Mass ratio] 12.9 mg/mg 10-20 [facility] - Hematology and Cell countsOrdered By: Nivia Campoverde on 06-09-2023 Erythrocyte distribution width (RBC) [Entitic vol] 49.1 fL 35.1-43.9 [facility] Erythrocyte distribution width (RBC) [Ratio] 17.2 % 11.6-14.6 [facility] Immature granulocytes/100 WBC (Bld) 0.400 % 0.0-0.9 [facility] Comment on above: IG% - Immature Granu locytes (promyelocytes, myelocytes and metamyelocytes) > 1% indicates that a LEFT SHIFT is Present. MCH (RBC) [Entitic mass] 24.8 pg 27.0-32.0 [facility] Nucleated RBC/100 WBC (Bld) [Ratio] 0 % 0-5 [facility] MCHC Auto (RBC) [Mass/Vol]Or dered By: Nivia Campoverde on 06-09-2023 MCHC (RBC) [Mass/Vol] 31.6 g/dL 32-36 [facility] No Panel InformationOrdered By: Nivia Campoverde on 06-09-2023 Estimated Creatinine Clearance Calc 49.22 ml/min [facility] Estimated GFR (MDRD) Amer 77 mL/min >60 [facility] Comment on above: GFR Calc Estimated GFR (MDRD) Non-Af Amer 64 mL/min >60 [facility] Comment on above: Non- GFR Calc Troponin I High Sensitivity 13 pg/mL 3.0-54.0 [facility] Comment on above: Please Note: New Erma t Units and Gender Specific Reference Ranges. For more information see Policy Stat Procedure Marathon High Sensitivity Troponin (TNIH) and attachments. Platelets bldOrdered By: Sachi Campoverde on 06-09-2023 Platelets (Bld) [#/Vol] 206 10*3/uL 150-450 [facility] Serum or plasma albumin leo urement (mass/volume)Ordered By: Nivia Campoverde on 06-09-2023 Albumin [Mass/Vol] 3.4 g/dL 3.2-5.0 [facility] Serum or plasma calcium leo urement (mass/volume)Ordered By: Nivia Campoverde on 06-09-2023 Calcium [Mass/Vol] 8.7 mg/dL 8.5-10.1 [facility] Serum or plasma creatinine m easurement (mass/volume)Ordered By: Nivia Campoverde on 06-09-2023 Creatinine [Mass/Vol] 0.93 mg/dL 0.55-1.02 [facility] Comment on above: The validity of the calculated GFR & GFRAA in patients over 70 years has not been determined. Clinical correlation is essential. Serum or plasma urea nitroge n measurement (mass/volume)Ordered By: Nivia Campoverde on 06-09-2023 Urea nitrogen [Mass/Vol] 12 mg/dL 7-18 [facility] Thin prep Papanicolaou smear with manual screeningOrdered By: Nivia Campoverde on 06-09-2023 Thin prep Papanicolaou smear with manual screening 22 U/L 15-37 [facility] Thin prep Papanicolaou smear with manual screening 9 5-15 [facility] Absolute lymphocyte countOrd ered By: Phani Odom on 06-08-2023 Lymphocytes Auto (Unsp spec) [#/Vol] 1.88 10*3/uL 0.83-4.51 [facility] Basophil percentageOrdered B y: Phani Odom on 06-08-2023 Amylase [Catalytic activity/Vol] 40 U/L 25-115 [facility] Basophils/100 WBC (Bld) 1.1 % 0-1 [facility] Bilirubin [Mass/Vol] 0.30 mg/dL 0.20-1.00 [facility] Comment on above: For patients on eltr ombopag therapy, use of Dimension Marathon TBIL is not recommended. Chloride [Moles/Vol] 102 mmol/L 98-107 [facility] Eosinophils/100 WBC (Bld) 0.9 % 0-5 [facility] Glucose [Mass/Vol] 95 mg/dL 74-106 [facility] Neutrophils (Bld) [#/Vol] 3.9 10*3/uL 2.0-7.7 [facility] Neutrophils/100 WBC (Bld) 59.1 % 47-70 [facility] Potassium [Moles/Vol] 4.1 mmol/L 3.5-5.1 [facility] Protein [Mass/Vol] 8.4 g/dL 6.4-8.2 [facility] Sodium [Moles/Vol] 133 mmol/L 136-145 [facility] WBC (Bld) [#/Vol] 6.5 10*3/uL 4.4-11.0 [facility] Blood erythrocytes count (nu mber/volume)Ordered By: Phani Odom on 06-08-2023 RBC (Bld) [#/Vol] 4.97 10*6/uL 4.2-5.4 [facility] Blood hemoglobin measurement (mass/volume)Ordered By: Phani Odom on 06-08-2023 Hemoglobin (Bld) [Mass/Vol] 12.3 g/dL 12.0-15.0 [facility] [facility] Blood lymphocytes/100 leukoc ytesOrdered By: Phani Odom on 06-08-2023 Lymphocytes/100 WBC (Bld) 28.9 % 19-41 [facility] Blood monocytes/100 leukocyt esOrdered By: Phani Odom on 06-08-2023 Monocytes/100 WBC (Bld) 9.5 % 0-10 [facility] Blood platelet mean volumeOr dered By: Phani Odom on 06-08-2023 Platelet mean volume (Bld) [Entitic vol] 10.3 fL 6.2-12.0 [facility] Determination of erythrocyte mean corpuscular volume (MCV)Ordered By: Phani Odom on 06-08-2023 MCV (RBC) [Entitic vol] 79.1 fL 81-99 [facility] Erythrocyte sedimentation ra teOrdered By: Phani Odom on 06-08-2023 ESR (Bld) [Velocity] 25 mm/h 0-30 [facility] Hematocrit Auto (Bld) [Volum e fraction]Ordered By: Phani Odom on 06-08-2023 Hematocrit (Bld) [Volume fraction] 39.3 % 37-47 [facility] Iron measurement (mass/mass) Ordered By: Phani Odom on 06-08-2023 Iron (Unsp spec) [Mass/Mass] 47 ug/dL 50-170 [facility] Laboratory - Chemistry and C hemistry - challengeOrdered By: Phani Odom on 06-08-2023 Albumin [Mass/Vol] 4.1 g/dL 2.9-4.4 [facility] ALP [Catalytic activity/Vol] 88 U/L 45-117 [facility] ALT [Catalytic activity/Vol] 27 U/L 13-56 [facility] CO2 [Moles/Vol] 24.0 mmol/L 21.0-32.0 [facility] Globulin (S) [Mass/Vol] 4.5 g/dL 2.2-4.2 [facility] Lipase [Catalytic activity/Vol] 28 U/L 13-75 [facility] Comment on above: Please note:LIPASE r evised reference range effective 23. New Lipase methodology. Expected to produce lower values than the previous assay method. NEW Reference Range: 13 - 75 U/L Urea nitrogen/Creatinine [Mass ratio] 11.0 mg/mg 10-20 [facility] Laboratory - Hematology and Cell countsOrdered By: Phani Odom on 06-08-2023 Erythrocyte distribution width (RBC) [Entitic vol] 50.1 fL 35.1-43.9 [facility] Erythrocyte distribution width (RBC) [Ratio] 17.5 % 11.6-14.6 [facility] Immature granulocytes/100 WBC (Bld) 0.500 % 0.0-0.9 [facility] Comment on above: IG% - Immature Granu locytes (promyelocytes, myelocytes and metamyelocytes) > 1% indicates that a LEFT SHIFT is Present. MCH (RBC) [Entitic mass] 24.7 pg 27.0-32.0 [facility] Nucleated RBC/100 WBC (Bld) [Ratio] 0 % 0-5 [facility] MCHC Auto (RBC) [Mass/Vol]Or dered By: Phani Odom on 06-08-2023 MCHC (RBC) [Mass/Vol] 31.3 g/dL 32-36 [facility] No Panel InformationOrdered By: Phani Odom on 06-08-2023 Addendum Document Comment . [facility] Comment on above: The SPE pattern appe ars unremarkable. Evidence ofmonoclonal protein is not apparent.Performed at: [employer] [id number] Director: Handy Guerrero PhD, Phone: [phone] Mcknp-6-Upbywxlko 0.3 g/dL 0.0-0.4 [facility] Ufndn-6-Ztvhtjfhm 1.0 g/dL 0.4-1.0 [facility] Estimated GFR (MDRD) Amer 80 mL/min >60 [facility] Comment on above: GFR Calc Estimated GFR (MDRD) Non-Af Amer 66 mL/min >60 [facility] Comment on above: Non- GFR Calc Gamma Globulins 1.3 g/dL 0.4-1.8 [facility] Platelets bldOrdered By: Rita Odom on 06-08-2023 Platelets (Bld) [#/Vol] 251 10*3/uL 150-450 [facility] Protein Fractions Elph [Inte rp]Ordered By: Phani Odom on 06-08-2023 Protein Fractions [Interp] Comment . [facility] Comment on above: Protein electrophore sis scan will follow via computer,mail, or application internship delivery. Serum albumin to globulin ra ant by protein electrophoresisOrdered By: Phani Odom on 06-08-2023 Albumin/Globulin Elph [Mass ratio] 1.1 0.7-1.7 [facility] Serum globulin measurement ( mass/volume)Ordered By: Phani Odom on 06-08-2023 Globulin (S) [Mass/Vol] 3.6 g/dL 2.2-3.9 [facility] Serum or plasma albumin leo urement (mass/volume)Ordered By: Phani Odom on 06-08-2023 Albumin [Mass/Vol] 3.9 g/dL 3.2-5.0 [facility] Serum or plasma albumin/glob ulin mass ratioOrdered By: Phani Odom on 06-08-2023 Albumin/Globulin [Mass ratio] 0.9 {ratio} 0.9-2.4 [facility] Serum or plasma beta globuli n measurement by electrophoresis (mass/volume)Ordered By: Phani Odom on 06-08-2023 Beta globulin Elph [Mass/Vol] 1.1 g/dL 0.7-1.3 [facility] Serum or plasma calcium leo urement (mass/volume)Ordered By: Phani Odom on 06-08-2023 Calcium [Mass/Vol] 9.0 mg/dL 8.5-10.1 [facility] Serum or plasma creatinine m easurement (mass/volume)Ordered By: Phani Odom on 06-08-2023 Creatinine [Mass/Vol] 0.91 mg/dL 0.55-1.02 [facility] Comment on above: The validity of the calculated GFR & GFRAA in patients over 70 years has not been determined. Clinical correlation is essential. Serum or plasma ferritin eduin surement (mass/volume)Ordered By: Phani Odom on 06-08-2023 Ferritin [Mass/Vol] 17 ng/mL 8-252 [facility] Serum or plasma urea nitroge n measurement (mass/volume)Ordered By: Phani Odom on 06-08-2023 Urea nitrogen [Mass/Vol] 10 mg/dL 7-18 [facility] Thin prep Papanicolaou smear with manual screeningOrdered By: Phani Odom on 06-08-2023 Thin prep Papanicolaou smear with manual screening 20 U/L 15-37 [facility] Thin prep Papanicolaou smear with manual screening 7 5-15 [facility] Thin prep Papanicolaou smear with manual screening See comment [facility] Comment on above: NOT OBSERVED Total protein bloodOrdered B y: Phani Odom on 06-08-2023 Protein [Mass/Vol] 7.7 g/dL 6.0-8.5 [facility] Basophil percentageOrdered B y: Dr. Odom on 01-24-2023 Bilirubin [Mass/Vol] 0.30 mg/dL 0.20-1.00 [facility] Comment on above: For patients on eltr ombopag therapy, use of Dimension Marathon TBIL is not recommended. Chloride [Moles/Vol] 105 mmol/L 98-107 [facility] Cholesterol [Mass/Vol] 174 mg/dL <200 [facility] Comment on above: <200 mg/dL Desirable 200-240 mg/dL Borderline >240 mg/dL High Risk Glucose [Mass/Vol] 81 mg/dL 74-106 [facility] Potassium [Moles/Vol] 4.7 mmol/L 3.5-5.1 [facility] Protein [Mass/Vol] 7.8 g/dL 6.4-8.2 [facility] Sodium [Moles/Vol] 137 mmol/L 136-145 [facility] Triglyceride [Mass/Vol] 131 mg/dL <199 [facility] Comment on above: The drugs N-Acetylcy steine and Metamizole may falsely depress this assay.Serum Triglycerides Reference Interval Normal <150 mg/dL Borderline high 150 - 199 mg/dL High 200 - 499 mg/dL Very High > or = 500 mg/dL WBC (Bld) [#/Vol] 5.5 10*3/uL 4.4-11.0 [facility] Blood erythrocytes count (nu mber/volume)Ordered By: Dr. Odom on 01-24-2023 RBC (Bld) [#/Vol] 4.91 10*6/uL 4.2-5.4 [facility] Blood hemoglobin measurement (mass/volume)Ordered By: Dr. Odom on 01-24-2023 Hemoglobin (Bld) [Mass/Vol] 11.9 g/dL 12.0-15.0 [facility] Blood platelet mean volumeOr dered By: Dr. Odom on 01-24-2023 Platelet mean volume (Bld) [Entitic vol] 9.9 fL 6.2-12.0 [facility] Determination of erythrocyte mean corpuscular volume (MCV)Ordered By: Dr. Odom on 01-24-2023 MCV (RBC) [Entitic vol] 79.4 fL 81-99 [facility] Hematocrit Auto (Bld) [Volum e fraction]Ordered By: Dr. Odom on 01-24-2023 Hematocrit (Bld) [Volume fraction] 39.0 % 37-47 [facility] Hemoglobin in reticulocytes (mass per reticulocyte)Ordered By: Dr. Odom on 01-24-2023 Hemoglobin (Reticulocytes) [Entitic mass] 28.4 pg 30-35 [facility] Iron measurement (mass/mass) Ordered By: Dr. Odom on 01-24-2023 Iron (Unsp spec) [Mass/Mass] 41 ug/dL 50-170 [facility] Laboratory - Chemistry and C hemistry - challengeOrdered By: Dr. Odom on 01-24-2023 Natriuretic peptide B (Bld) [Mass/Vol] 128.9 pg/mL 0-100 [facility] ALP [Catalytic activity/Vol] 78 U/L 45-117 [facility] ALT [Catalytic activity/Vol] 50 U/L 13-56 [facility] CO2 [Moles/Vol] 24.0 mmol/L 21.0-32.0 [facility] Globulin (S) [Mass/Vol] 4.2 g/dL 2.2-4.2 [facility] Urea nitrogen/Creatinine [Mass ratio] 12.0 mg/mg 10-20 [facility] Laboratory - Hematology and Cell countsOrdered By: Dr. Odom on 01-24-2023 Erythrocyte distribution width (RBC) [Entitic vol] 50.7 fL 35.1-43.9 [facility] Erythrocyte distribution width (RBC) [Ratio] 17.7 % 11.6-14.6 [facility] MCH (RBC) [Entitic mass] 24.2 pg 27.0-32.0 [facility] MCHC Auto (RBC) [Mass/Vol]Or dered By: Dr. Odom on 01-24-2023 MCHC (RBC) [Mass/Vol] 30.5 g/dL 32-36 [facility] No Panel InformationOrdered By: Dr. Odom on 01-24-2023 Estimated GFR (MDRD) Amer 65 mL/min >60 [facility] Comment on above: GFR Calc Estimated GFR (MDRD) Non-Af Amer 54 mL/min >60 [facility] Comment on above: Non- GFR Calc Immature Reticulocyte Fraction 17.90 % 3.00-15.90 [facility] Reticulocyte Count 1.48 % 0.5-1.5 [facility] Thyroid Stimulating Hormone (TSH) 2.37 uIU/mL 0.358-3.74 [facility] Vitamin B12 Level > 2000 pg/mL 211-911 [facility] Vitamin D 25-Hydroxy 25.7 ng/mL [facility] Comment on above: Vitamin D 25(OH) Sta tus Range Deficiency <20 ng/mL (50nmol/L) Insufficiency 20 - 30 ng/mL (50 - 75 nmol/L) Sufficiency 30 - 100 ng/mL (75 - 250 nmol/L) Toxicity >100 ng/mL (>250 nmol/L) Platelets bldOrdered By: Dr. Odom on 01-24-2023 Platelets (Bld) [#/Vol] 232 10*3/uL 150-450 [facility] Serum or plasma albumin leo urement (mass/volume)Ordered By: Dr. Odom on 01-24-2023 Albumin [Mass/Vol] 3.6 g/dL 3.2-5.0 [facility] Serum or plasma albumin/glob ulin mass ratioOrdered By: Dr. Odom on 01-24-2023 Albumin/Globulin [Mass ratio] 0.9 {ratio} 0.9-2.4 [facility] Serum or plasma calcium leo urement (mass/volume)Ordered By: Dr. Odom on 01-24-2023 Calcium [Mass/Vol] 8.9 mg/dL 8.5-10.1 [facility] Serum or plasma cholesterol in HDL measurement (mass/volume)Ordered By: Dr. Odom on 01-24-2023 Cholesterol in HDL [Mass/Vol] 68 mg/dL >40 [facility] Comment on above: The drugs N-Acetylcy steine and Metamizole may falsely depress this assay. Reference Range HDL <40 mg/dL Low HDL Cholesterol HDL >or= 60 mg/dL High HDL Cholesterol Serum or plasma cholesterol in VLDL measurement (mass/volume)Ordered By: Dr. Odom on 01-24-2023 Cholesterol in VLDL [Mass/Vol] 26 mg/dL 5-40 [facility] Serum or plasma creatinine m easurement (mass/volume)Ordered By: Dr. Odom on 01-24-2023 Creatinine [Mass/Vol] 1.08 mg/dL 0.55-1.02 [facility] Comment on above: The validity of the calculated GFR & GFRAA in patients over 70 years has not been determined. Clinical correlation is essential. Serum or plasma ferritin eduin surement (mass/volume)Ordered By: Dr. Odom on 01-24-2023 Ferritin [Mass/Vol] 19 ng/mL 8-252 [facility] Serum or plasma low density lipoprotein (LDL) cholesterol measurement (mass/volume)Ordered By: Dr. Odom on 01-24-2023 Cholesterol in LDL [Mass/Vol] 80 mg/dL 0-130 [facility] Serum or plasma urea nitroge n measurement (mass/volume)Ordered By: Dr. Odom on 01-24-2023 Urea nitrogen [Mass/Vol] 13 mg/dL 7-18 [facility] Thin prep Papanicolaou smear with manual screeningOrdered By: Dr. Odom on 01-24-2023 Thin prep Papanicolaou smear with manual screening 37 U/L 15-37 [facility] Thin prep Papanicolaou smear with manual screening 8 5-15 [facility] Progress Noteon 01-23-2023 Progress Note Chart reviewed for surveillance purposes by [facility]. Patient undergoing surveillance at [facility] Basophil percentageon 2021 Bilirubin [Mass/Vol] 0.40 mg/dL 0.20-1.00 [facility] Work Phone: Comment on above: For patients on eltr ombopag therapy, use of Dimension Marathon TBIL is not recommended. Chloride [Moles/Vol] 99 mmol/L 98-107 [facility] Work Phone: Glucose [Mass/Vol] 121 mg/dL 74-106 [facility] Work Phone: Comment on above: Fasting Glucose resu lt from 100 to 125 mg/dL suggests IMPAIRED HOMEOSTASIS per A.D.A. criteria. Potassium [Moles/Vol] 3.9 mmol/L 3.5-5.1 [facility] Work Phone: Protein [Mass/Vol] 7.1 g/dL 6.4-8.2 [facility] Work Phone: Sodium [Moles/Vol] 133 mmol/L 136-145 [facility] Work Phone: [phone] WBC (Bld) [#/Vol] 10.5 10*3/uL 4.4-11.0 [facility] Work Phone: [phone] Blood erythrocytes count (nu mber/volume)on 06-16-2022 RBC (Bld) [#/Vol] 4.18 10*6/uL 4.2-5.4 [facility] Work Phone: [phone] Blood hemoglobin measurement (mass/volume)on 06-16-2022 Hemoglobin (Bld) [Mass/Vol] 10.4 g/dL 12.0-15.0 [facility] Work Phone: [phone] Blood platelet mean volumeon 06-16-2022 Platelet mean volume (Bld) [Entitic vol] 9.8 fL 6.2-12.0 [facility] Work Phone: [phone] Determination of erythrocyte mean corpuscular volume (MCV)on 06-16-2022 MCV (RBC) [Entitic vol] 81.1 fL 81-99 [facility] Work Phone: [phone] Hematocrit Auto (Bld) [Volum e fraction]on 06-16-2022 Hematocrit (Bld) [Volume fraction] 33.9 % 37-47 [facility] Work Phone: [phone] Laboratory - Chemistry and C hemistry - challengeon 06-16-2022 ALP [Catalytic activity/Vol] 61 U/L 45-117 [facility] Work Phone: [phone] ALT [Catalytic activity/Vol] 19 U/L 13-56 [facility] Work Phone: [phone] CO2 [Moles/Vol] 27.0 mmol/L 21.0-32.0 [facility] Work Phone: [phone] Globulin (S) [Mass/Vol] 3.8 g/dL 2.2-4.2 [facility] Work Phone: [phone] Urea nitrogen/Creatinine [Mass ratio] 15.4 mg/mg 10-20 [facility] Work Phone: [phone] Laboratory - Hematology and Cell countson 06-16-2022 Erythrocyte distribution width (RBC) [Entitic vol] 63.3 fL 35.1-43.9 [facility] Work Phone: [phone] Erythrocyte distribution width (RBC) [Ratio] 21.6 % 11.6-14.6 [facility] Work Phone: [phone] MCH (RBC) [Entitic mass] 24.9 pg 27.0-32.0 [facility] Work Phone: [phone] MCHC Auto (RBC) [Mass/Vol]on 06-16-2022 MCHC (RBC) [Mass/Vol] 30.7 g/dL 32-36 [facility] Work Phone: No Panel Informationon 06-16 Estimated Creatinine Clearance Calc 39.65 ml/min [facility] Work Phone: [phone] Estimated GFR (MDRD) Amer 60 mL/min >60 [facility] Work Phone: Comment on above: GFR Calc Estimated GFR (MDRD) Non-Af Amer 49 mL/min >60 [facility] Work Phone: Comment on above: Non- GFR Calc Platelets bldon 06-16-2022 Platelets (Bld) [#/Vol] 195 10*3/uL 150-450 [facility] Work Phone: [phone] Serum or plasma albumin leo urement (mass/volume)on 06-16-2022 Albumin [Mass/Vol] 3.3 g/dL 3.2-5.0 [facility] Work Phone: [phone] Serum or plasma albumin/glob ulin mass ratioon 06-16-2022 Albumin/Globulin [Mass ratio] 0.9 {ratio} 0.9-2.4 [facility] Work Phone: [phone] Serum or plasma calcium leo urement (mass/volume)on 06-16-2022 Calcium [Mass/Vol] 8.9 mg/dL 8.5-10.1 [facility] Work Phone: [phone] Serum or plasma creatinine m easurement (mass/volume)on 06-16-2022 Creatinine [Mass/Vol] 1.17 mg/dL 0.55-1.02 [facility] Work Phone: Comment on above: The validity of the calculated GFR & GFRAA in patients over 70 years has not been determined. Clinical correlation is essential. Serum or plasma urea nitroge n measurement (mass/volume)on 06-16-2022 Urea nitrogen [Mass/Vol] 18 mg/dL 7-18 [facility] Work Phone: Thin prep Papanicolaou smear with manual screeningon 06-16-2022 Thin prep Papanicolaou smear with manual screening 13 U/L 15-37 [facility] Work Phone: [phone] Thin prep Papanicolaou smear with manual screening 7 5-15 [facility] Work Phone: [phone] Absolute lymphocyte counton 06-15-2022 Lymphocytes Auto (Unsp spec) [#/Vol] 0.40 10*3/uL 0.83-4.51 [facility] Work Phone: Basophil percentageon 2021 Basophils/100 WBC (Bld) 0.3 % 0-1 [facility] Work Phone: [phone] Cholesterol [Mass/Vol] 104 mg/dL <200 [facility] Work Phone: [phone] Comment on above: <200 mg/dL Desirable 200-240 mg/dL Borderline >240 mg/dL High Risk Eosinophils/100 WBC (Bld) 0.0 % 0-5 [facility] Work Phone: [phone] Neutrophils (Bld) [#/Vol] 3.0 10*3/uL 2.0-7.7 [facility] Work Phone: [phone] Neutrophils/100 WBC (Bld) 84.6 % 47-70 [facility] Work Phone: [phone] Triglyceride [Mass/Vol] 54 mg/dL <199 [facility] Work Phone: [phone] Comment on above: The drugs N-Acetylcy steine and Metamizole may falsely depress this assay.Serum Triglycerides Reference Interval Normal <150 mg/dL Borderline high 150 - 199 mg/dL High 200 - 499 mg/dL Very High > or = 500 mg/dL Blood lymphocytes/100 leukoc yteson 06-15-2022 Lymphocytes/100 WBC (Bld) 11.4 % 19-41 [facility] Work Phone: Blood monocytes/100 leukocyt eson 06-15-2022 Monocytes/100 WBC (Bld) 2.8 % 0-10 [facility] Work Phone: Blood platelet adequacy dete ction by light microscopyon 06-15-2022 Platelets LM Ql (Bld) ADEQUATE ADEQ [facility] Work Phone: Hypochromatic red blood cell detectionon 06-15-2022 Hypochromia Ql (Bld) RARE [facility] Work Phone: Laboratory - Hematology and Cell countson 06-15-2022 Anisocytosis Ql (Bld) 1+ [facility] Work Phone: Immature granulocytes/100 WBC (Bld) 0.900 % 0.0-0.9 [facility] Work Phone: Comment on above: IG% - Immature Granu locytes (promyelocytes, myelocytes and metamyelocytes) > 1% indicates that a LEFT SHIFT is Present. Nucleated RBC/100 WBC (Bld) [Ratio] 0 % 0-5 [facility] Work Phone: No Panel Informationon 06-15 Troponin I High Sensitivity 122 pg/mL 3.0-54.0 [facility] Work Phone: Comment on above: Critical Result(s) C alled at: 08:10:35 06/15/2022 by: Angela Ricketts RN PCU. Results read back by same. Please Note: New Test Units and Gender Specific Reference Ranges. For more information see Policy Stat Procedure Marathon High Sensitivity Troponin (TNIH) and attachments. Review by pathologiston Pathologist review Sharad (Unsp spec) [Interp] Reviewed [facility] Work Phone: Comment on above: Previous reported re sult: Jahaira cox Edited by: MARCIA on 06/15/22:1305Leukopenia.Macrocytic anemia.Clinical correlation necessary.Calvin Tao M.D. 06/15/22 AMENDED REPORT 06/15/22 1305 PATH REV previously reported as: March kenny Serum or plasma cholesterol in HDL measurement (mass/volume)on 06-15-2022 Cholesterol in HDL [Mass/Vol] 45 mg/dL >40 [facility] Work Phone: Comment on above: The drugs N-Acetylcy steine and Metamizole may falsely depress this assay. Reference Range HDL <40 mg/dL Low HDL Cholesterol HDL >or= 60 mg/dL High HDL Cholesterol Serum or plasma cholesterol in VLDL measurement (mass/volume)on 06-15-2022 Cholesterol in VLDL [Mass/Vol] 11 mg/dL 5-40 [facility] Work Phone: Serum or plasma low density lipoprotein (LDL) cholesterol measurement (mass/volume)on 06-15-2022 Cholesterol in LDL [Mass/Vol] 48 mg/dL 0-130 [facility] Work Phone: Absolute lymphocyte counton 06-14-2022 Lymphocytes Auto (Unsp spec) [#/Vol] 0.96 10*3/uL 0.83-4.51 [facility] Work Phone: Basophil percentageon 2021 Basophils/100 WBC (Bld) 0.8 % 0-1 [facility] Work Phone: Chloride [Moles/Vol] 100 mmol/L 98-107 [facility]: Eosinophils/100 WBC (Bld) 2.3 % 0-5 [facility] Work Phone: Glucose [Mass/Vol] 94 mg/dL 74-106 [facility] Work Phone: Neutrophils (Bld) [#/Vol] 3.5 10*3/uL 2.0-7.7 [facility] Work Phone: Neutrophils/100 WBC (Bld) 68.3 % 47-70 [facility] Work Phone: [phone] Potassium [Moles/Vol] 4.5 mmol/L 3.5-5.1 [facility] Work Phone: [phone] Comment on above: Moderate Hemolysis, Result may be falsely increased. Sodium [Moles/Vol] 130 mmol/L 136-145 [facility] Work Phone: [phone] WBC (Bld) [#/Vol] 5.1 10*3/uL 4.4-11.0 [facility] Work Phone: [phone] Blood erythrocytes count (nu mber/volume)on 06-14-2022 RBC (Bld) [#/Vol] 4.28 10*6/uL 4.2-5.4 [facility] Work Phone: [phone] Blood hemoglobin measurement (mass/volume)on 06-14-2022 Hemoglobin (Bld) [Mass/Vol] 10.6 g/dL 12.0-15.0 [facility] Work Phone: [phone] Blood lymphocytes/100 leukoc yteson 06-14-2022 Lymphocytes/100 WBC (Bld) 18.8 % 19-41 [facility] Work Phone: [phone] Blood monocytes/100 leukocyt eson 06-14-2022 Monocytes/100 WBC (Bld) 9.2 % 0-10 [facility] Work Phone: [phone] Blood platelet adequacy dete ction by light microscopyon 06-14-2022 Platelets LM Ql (Bld) ADEQUATE ADEQ [facility] Work Phone: [phone] Blood platelet mean volumeon 06-14-2022 Platelet mean volume (Bld) [Entitic vol] 10.9 fL 6.2-12.0 [facility] Work Phone: [phone] Determination of erythrocyte mean corpuscular volume (MCV)on 06-14-2022 MCV (RBC) [Entitic vol] 81.1 fL 81-99 [facility] Work Phone: [phone] Hematocrit Auto (Bld) [Volum e fraction]on 06-14-2022 Hematocrit (Bld) [Volume fraction] 34.7 % 37-47 [facility] Work Phone: Laboratory - Chemistry and C hemistry - challengeon 06-14-2022 CO2 [Moles/Vol] 23.0 mmol/L 21.0-32.0 [facility] Work Phone: [phone] Natriuretic peptide B (Bld) [Mass/Vol] 1338.2 pg/mL 0-100 [facility] Work Phone: [phone] Urea nitrogen/Creatinine [Mass ratio] 14.3 mg/mg 10-20 [facility] Work Phone: [phone] Magnesium [Mass/Vol] 2.0 mg/dL 1.6-2.6 [facility] Work Phone: [phone] Laboratory - Hematology and Cell countson 06-14-2022 Anisocytosis Ql (Bld) 1+ [facility] Work Phone: [phone] Erythrocyte distribution width (RBC) [Entitic vol] 61.1 fL 35.1-43.9 [facility] Work Phone: [phone] Erythrocyte distribution width (RBC) [Ratio] 21.2 % 11.6-14.6 [facility] Work Phone: [phone] Immature granulocytes/100 WBC (Bld) 0.600 % 0.0-0.9 [facility] Work Phone: [phone] Comment on above: IG% - Immature Granu locytes (promyelocytes, myelocytes and metamyelocytes) > 1% indicates that a LEFT SHIFT is Present. MCH (RBC) [Entitic mass] 24.8 pg 27.0-32.0 [facility] Work Phone: [phone] Nucleated RBC/100 WBC (Bld) [Ratio] 0 % 0-5 [facility] Work Phone: [phone] MCHC Auto (RBC) [Mass/Vol]on 06-14-2022 MCHC (RBC) [Mass/Vol] 30.5 g/dL 32-36 [facility] Work Phone: No Panel Informationon 06-14 Estimated Creatinine Clearance Calc 44.19 ml/min [facility] Work Phone: Estimated GFR (MDRD) Amer 68 mL/min >60 [facility] Work Phone: Comment on above: GFR Calc Estimated GFR (MDRD) Non-Af Amer 56 mL/min >60 [facility] Work Phone: Comment on above: Non- GFR Calc Troponin I High Sensitivity 204 pg/mL 3.0-54.0 [facility] Work Phone: Comment on above: Critical Result(s) C alled at: 14:27:26 06/14/2022 by: Janell Schwartz to Jose. Results read back by same. Please Note: New Test Units and Gender Specific Reference Ranges. For more information see Policy Stat Procedure [facility] High Sensitivity Troponin (TNIH) and attachments. Platelets bldon 06-14-2022 Platelets (Bld) [#/Vol] 170 10*3/uL 150-450 [facility] Work Phone: Serum or plasma calcium leo urement (mass/volume)on 06-14-2022 Calcium [Mass/Vol] 9.3 mg/dL 8.5-10.1 [facility] Work Phone: Serum or plasma creatinine m easurement (mass/volume)on 06-14-2022 Creatinine [Mass/Vol] 1.05 mg/dL 0.55-1.02 [facility] Work Phone: Comment on above: The validity of the calculated GFR & GFRAA in patients over 70 years has not been determined. Clinical correlation is essential. Serum or plasma urea nitroge n measurement (mass/volume)on 06-14-2022 Urea nitrogen [Mass/Vol] 15 mg/dL 7-18 [facility] Work Phone: Thin prep Papanicolaou smear with manual screeningon 06-14-2022 Thin prep Papanicolaou smear with manual screening 7 5-15 [facility] Work Phone: Absolute lymphocyte counton 06-11-2022 Lymphocytes Auto (Unsp spec) [#/Vol] 0.78 10*3/uL 0.83-4.51 [facility] Work Phone: Basophil percentageon 2021 Basophils/100 WBC (Bld) 0.5 % 0-1 [facility] Work Phone: Bilirubin [Mass/Vol] 1.30 mg/dL 0.20-1.00 [facility] Work Phone: Comment on above: For patients on eltr ombopag therapy, use of Dimension Marathon TBIL is not recommended. Chloride [Moles/Vol] 101 mmol/L 98-107 [facility] Work Phone: Eosinophils/100 WBC (Bld) 0.8 % 0-5 [facility] Work Phone: Glucose [Mass/Vol] 116 mg/dL 74-106 [facility] Work Phone: Comment on above: Fasting Glucose resu lt from 100 to 125 mg/dL suggests IMPAIRED HOMEOSTASIS per A.D.A. criteria. Neutrophils (Bld) [#/Vol] 4.8 10*3/uL 2.0-7.7 [facility] Work Phone: Neutrophils/100 WBC (Bld) 77.0 % 47-70 [facility] Work Phone: Potassium [Moles/Vol] 3.4 mmol/L 3.5-5.1 [facility] Work Phone: Protein [Mass/Vol] 7.2 g/dL 6.4-8.2 [facility] Work Phone: Sodium [Moles/Vol] 133 mmol/L 136-145 [facility] Work Phone: WBC (Bld) [#/Vol] 6.2 10*3/uL 4.4-11.0 [facility] Work Phone: Blood erythrocytes count (nu mber/volume)on 06-11-2022 RBC (Bld) [#/Vol] 4.34 10*6/uL 4.2-5.4 [facility] Work Phone: [phone] Blood hemoglobin measurement (mass/volume)on 06-11-2022 Hemoglobin (Bld) [Mass/Vol] 10.8 g/dL 12.0-15.0 [facility] Work Phone: Blood lymphocytes/100 leukoc yteson 06-11-2022 Lymphocytes/100 WBC (Bld) 12.5 % 19-41 [facility] Work Phone: [phone] Blood monocytes/100 leukocyt eson 06-11-2022 Monocytes/100 WBC (Bld) 8.7 % 0-10 [facility] Work Phone: [phone] Blood platelet mean volumeon 06-11-2022 Platelet mean volume (Bld) [Entitic vol] 9.8 fL 6.2-12.0 [facility] Work Phone: [phone] Determination of erythrocyte mean corpuscular volume (MCV)on 06-11-2022 MCV (RBC) [Entitic vol] 77.6 fL 81-99 [facility] Work Phone: [phone] Hematocrit Auto (Bld) [Volum e fraction]on 06-11-2022 Hematocrit (Bld) [Volume fraction] 33.7 % 37-47 [facility] Work Phone: Laboratory - Chemistry and C hemistry - challengeon 06-11-2022 ALP [Catalytic activity/Vol] 62 U/L 45-117 [facility] Work Phone: [phone] ALT [Catalytic activity/Vol] 20 U/L 13-56 [facility] Work Phone: [phone] CO2 [Moles/Vol] 24.0 mmol/L 21.0-32.0 [facility] Work Phone: [phone] Globulin (S) [Mass/Vol] 3.8 g/dL 2.2-4.2 [facility] Work Phone: [phone] Urea nitrogen/Creatinine [Mass ratio] 7.1 mg/mg 10-20 [facility] Work Phone: [phone] Laboratory - Hematology and Cell countson 06-11-2022 Erythrocyte distribution width (RBC) [Entitic vol] 54.5 fL 35.1-43.9 [facility] Work Phone: [phone] Erythrocyte distribution width (RBC) [Ratio] 19.2 % 11.6-14.6 [facility] Work Phone: [phone] Immature granulocytes/100 WBC (Bld) 0.500 % 0.0-0.9 [facility] Work Phone: [phone] Comment on above: IG% - Immature Granu locytes (promyelocytes, myelocytes and metamyelocytes) > 1% indicates that a LEFT SHIFT is Present. MCH (RBC) [Entitic mass] 24.9 pg 27.0-32.0 [facility] Work Phone: [phone] Nucleated RBC/100 WBC (Bld) [Ratio] 0 % 0-5 [facility] Work Phone: [phone] MCHC Auto (RBC) [Mass/Vol]on 06-11-2022 MCHC (RBC) [Mass/Vol] 32.0 g/dL 32-36 [facility] Work Phone: [phone] Panel Informationon 06-11 Estimated Creatinine Clearance Calc 54.58 ml/min [facility] Work Phone: [phone] Estimated GFR (MDRD) Amer 86 mL/min >60 [facility] Work Phone: [phone] Comment on above: GFR Calc Estimated GFR (MDRD) Non-Af Amer 71 mL/min >60 [facility] Work Phone: [phone] Comment on above: Non- GFR Calc Platelets bldon 06-11-2022 Platelets (Bld) [#/Vol] 210 10*3/uL 150-450 [facility] Work Phone: [phone] Serum or plasma albumin leo urement (mass/volume)on 06-11-2022 Albumin [Mass/Vol] 3.4 g/dL 3.2-5.0 [facility] Work Phone: [phone] Serum or plasma albumin/glob ulin mass ratioon 06-11-2022 Albumin/Globulin [Mass ratio] 0.9 {ratio} 0.9-2.4 [facility] Work Phone: Serum or plasma calcium leo urement (mass/volume)on 06-11-2022 Calcium [Mass/Vol] 8.5 mg/dL 8.5-10.1 [facility] Work Phone: Serum or plasma creatinine m easurement (mass/volume)on 06-11-2022 Creatinine [Mass/Vol] 0.85 mg/dL 0.55-1.02 [facility] Work Phone: Comment on above: The validity of the calculated GFR & GFRAA in patients over 70 years has not been determined. Clinical correlation is essential. Serum or plasma urea nitroge n measurement (mass/volume)on 06-11-2022 Urea nitrogen [Mass/Vol] 6 mg/dL 7-18 [facility] Work Phone: Thin prep Papanicolaou smear with manual screeningon 06-11-2022 Thin prep Papanicolaou smear with manual screening 17 U/L 15-37 [facility] Work Phone: Thin prep Papanicolaou smear with manual screening 8 5-15 [facility] Work Phone: Iron measurement (mass/mass) on 06-09-2022 Iron (Unsp spec) [Mass/Mass] 14 ug/dL 50-170 [facility] Work Phone: Laboratory - Chemistry and C hemistry - challengeon 06-09-2022 Magnesium [Mass/Vol] 2.0 mg/dL 1.6-2.6 [facility] Work Phone: [phone] Natriuretic peptide B (Bld) [Mass/Vol] 1067.8 pg/mL 0-100 [facility] Work Phone: No Panel Informationon 06-09 Troponin I High Sensitivity 568 pg/mL 3.0-54.0 [facility] Work Phone: Comment on above: Critical Result(s) C alled at: 22:12:27 06/09/2022 by: JUAN MOULTON TO MOISES FERRER. Results read back by same. Please Note: New Test Units and Gender Specific Reference Ranges. For more information see Policy Stat Procedure Marathon High Sensitivity Troponin (TNIH) and attachments. Total Iron Binding Capacity 490 ug/dL 250-450 [facility] Work Phone: Serum or plasma iron saturat ion measurement (mass fraction)on 06-09-2022 Iron saturation [Mass fraction] 2.9 % 15.0-55.0 [facility] Work Phone: Basic Metabolic Panelon 01-06 Calcium [Mass/Vol] 8.6 mg/dL Normal 8.4-10.4 [facility] Comment on above: Performed By: #### B MP3M, HEMDF ####[facility] [address] [place] [address] Glucose [Mass/Vol] 92 mg/dL Normal 70-100 [facility] Comment on above: Performed By: #### B MP3M, HEMDF ####[facility] [id number] [place] [address] Anion gap [Moles/Vol] 3 mmol/L Normal 3-13 [facility] Comment on above: Performed By: #### B MP3M, HEMDF ####[facility] [address] [place] [address] CO2 [Moles/Vol] 26 mmol/L Normal 22-30 [facility] Comment on above: Performed By: #### B MP3M, HEMDF ####[facility] [id number] [place] [address] Creatinine [Mass/Vol] 0.94 mg/dL Normal 0.52-1.25 [facility] Comment on above: Performed By: #### B MP3M, HEMDF ####[facility] [id number] [place], [place] GFR/1.73 sq M predicted among blacks MDRD (S/P/Bld) [Vol rate/Area] 74.4 mL/min/{1.73_m2} Normal >60 [facility] Comment on above: Performed By: #### B MP3M, HEMDF ####[address] [place] [address] GFR/1.73 sq M predicted among non-blacks MDRD (S/P/Bld) [Vol rate/Area] 64.2 mL/min/{1.73_m2} Normal >60 [facility] Comment on above: Result Comment: KDIG O [...] secretion. Performed By: #### B MP3M, HEMDF ####[address] [place], [place] Urea nitrogen [Mass/Vol] 17 mg/dL Normal 7-20 [facility] Comment on above: Performed By: #### Umberto MP3M, HEMDF ####[address] [place] [address] Chloride [Moles/Vol] 103 mmol/L Normal 98-107 [facility] Comment on above: Performed By: #### B MP3M, HEMDF ####[address] [place] [address] Potassium [Moles/Vol] 3.9 mmol/L Normal 3.5-5.1 [facility] Comment on above: Performed By: #### B MP3M, HEMDF ####[address] [place] [address] Sodium [Moles/Vol] 131 mmol/L Low 135-145 [facility] Comment on above: Performed By: #### B MP3M, HEMDF ####[facility] [id number] [place] [address] Basic Metabolic Panel w/ Ref aarti to MGon 01-31-2021 Anion gap [Moles/Vol] 3 mmol/L 3 - 13 mmol/L [facility] Work Phone: Calcium [Mass/Vol] 8.6 mg/dL 8.4 - 10. 4 mg/dL [facility] Work Phone: Chloride [Moles/Vol] 103 mmol/L 98 - 10 7 mmol/L [facility] Work Phone: CO2 [Moles/Vol] 26 mmol/L 22 - 30 mmol/L [facility] Work Phone: Creatinine [Mass/Vol] 0.94 mg/dL 0.52 - 1.25 mg/dL [facility] Work Phone: EGFR IF NonAfrican Bhutanese 64.2 mL/min >60 [facility] Work Phone: Comment on above: KDIGO guidelines [...] [Mass/Vol] 92 mg/dL 70 - 100 mg/dL [facility] Work Phone: Interpretation and review of laboratory results Abnormal [facility] Work Phone: 1 Potassium [Moles/Vol] 3.9 mmol/L 3.5 - 5.1 mmol/L [facility] Work Phone: 1 Sodium [Moles/Vol] 131 mmol/L Low 135 - 145 mmol/L [facility] Work Phone: 1 Urea nitrogen [Mass/Vol] 17 mg/dL 7 - 20 mg/dL [facility] Work Phone: 1 Test Performed by [facility], [address] [place] [address] [facility] Work Phone: [phone] CBC auto differentialon 01-06 Absolute Baso # 0.0 10*3/uL 0.0 - 0.2 10*3/uL [facility] Work Phone: 1 Absolute Neut # 3.6 10*3/uL 1.8 - 7.0 10*3/uL [facility] Work Phone: 1 Basophils/100 WBC (Bld) 0.5 % 0.0 - 2.0 % [facility] Work Phone: Eosinophils (Bld) [#/Vol] 0.2 10*3/uL 0.0 - 0.5 10*3/uL [facility] Work Phone: 1 Eosinophils/100 WBC (Bld) 2.9 % 1.0 - 6.0 % [facility] Work Phone: 1 Erythrocyte distribution width (RBC) [Ratio] 19.3 % High 11.5 - 14.5 % [facility] Work Phone: Granulocytes/100 WBC (Bld) 62.5 % 40.0 - 80.0 % [facility] Work Phone: Hematocrit (Bld) [Volume fraction] 26.2 % Low 35.0 - 47.0 % [facility] Work Phone: Hemoglobin (Bld) [Mass/Vol] 8.4 g/dL Low 11.7 - 16.0 g/dL [facility] Work Phone: [phone] Interpretation and review of laboratory results Abnormal [facility] Work Phone: 1 Lymphocytes (Bld) [#/Vol] 1.5 10*3/uL 1.0 - 4.3 10*3/uL [facility] Work Phone: [phone] Lymphocytes/100 WBC (Bld) 26.7 % 20.0 - 40.0 % [facility] Work Phone: MCH (RBC) [Entitic mass] 25.0 pg Low 26. 0 - 34.0 pg [facility] Work Phone: MCHC (RBC) [Mass/Vol] 32.1 % 32.0 - 36.0 % [facility] Work Phone: MCV (RBC) [Entitic vol] 78.1 fL Low 79.0 - 98.0 fL [facility] Work Phone: Monocytes (Bld) [#/Vol] 0.4 10*3/uL 0.0 - 0.8 10*3/uL [facility] Work Phone: Monocytes/100 WBC (Bld) 7.4 % 2.0 - 10.0 % [facility] Work Phone: Platelet mean volume (Bld) [Entitic vol] 9.2 fL 7.4 - 10.4 fL [facility] Work Phone: Platelets (Bld) [#/Vol] 131 10*3/uL Low 140 - 440 10*3/uL [facility] Work Phone: RBC (Bld) [#/Vol] 3.35 10*6/uL Low 3.80 - 5.2 0 10*6/uL [facility] Work Phone: WBC (Bld) [#/Vol] 5.8 10*3/uL 3.6 - 10.7 10*3/uL [facility] Work Phone: Test Performed by [employer] [address] [facility] Work Phone: [phone] CR Chest Portableon 02-01-20 21 CR Chest Portable Patient Name: HALEIGH ALMEIDA Diagnostic Radiology ACCESSION EXAM DATE/TIME PROCEDURE ORDERING PROVIDER [id number] 01/31/2021 06:48 EDT CR Chest Portable Bucky SHABAZZ RASHIDA CPT code 66222 Reason For Exam (CR Chest Portable) S/p [...] Transcribed Date and Time: 01/31/2021 8:48 Normal [facility] Hemogram w/ Autodiffon 01-31 Abs Baso Cnt 0.0 10*3/uL Normal 0.0-0.2 [facility] Comment on above: Performed By: #### B MP3M, HEMDF ####[facility] [address] [place], [place] Abs Neutrophile Cnt 3.6 10*3/uL Normal 1.8-7.0 [facility] Comment on above: Performed By: #### B MP3M, HEMDF ####[facility] [address] [place] [address] Basophils/100 WBC (Bld) 0.5 % Normal 0.0-2.0 [facility] Comment on above: Performed By: #### B MP3M, HEMDF ####[facility] [id number] [place] [address] Eosinophils (Bld) [#/Vol] 0.2 10*3/uL Normal 0.0-0.5 [facility] Comment on above: Performed By: #### B JANELLE3Karl, HEMDF ####[address] [place] [address] Eosinophils/100 WBC (Bld) 2.9 % Normal 1.0-6.0 [facility] Comment on above: Performed By: #### Umberto LUIS3Karl, HEMDF ####[address] Erythrocyte distribution width (RBC) [Ratio] 19.3 % High 11.5-14.5 [facility] Comment on above: Performed By: #### Umberto LUIS3Karl, HEMDF ####[address] Granulocytes/100 WBC (Bld) 62.5 % Normal 40.0-80.0 [facility] Comment on above: Performed By: #### Umberto LUIS3Karl, HEMDF ####[address] Hematocrit (Bld) [Volume fraction] 26.2 % Low 35.0-47.0 [facility] Comment on above: Performed By: #### Umberto LUIS3Karl, HEMDF ####[address] Hemoglobin (Bld) [Mass/Vol] 8.4 g/dL Low 11.7-16.0 [facility] Comment on above: Performed By: #### Umberto MP3Karl, HEMDF ####[address] [address] Lymphocytes (Bld) [#/Vol] 1.5 10*3/uL Normal 1.0-4.3 [facility] Comment on above: Performed By: #### Umberto MP3M, HEMDF ####[address] [address] Lymphocytes/100 WBC (Bld) 26.7 % Normal 20.0-40.0 [facility] Comment on above: Performed By: #### B MP3M, HEMDF ####[address] [place], [place] MCH (RBC) [Entitic mass] 25.0 pg Low 26.0-34.0 [facility] Comment on above: Performed By: #### B MP3M, HEMDF ####[address] [place], [place] MCHC (RBC) [Mass/Vol] 32.1 % Normal 32.0-36.0 [facility] Comment on above: Performed By: #### B MP3M, HEMDF ####[address] [place], [place] MCV (RBC) [Entitic vol] 78.1 fL Low 79.0-98.0 [facility] Comment on above: Performed By: #### B MP3M, HEMDF ####[address] [place], [place] Monocytes (Bld) [#/Vol] 0.4 10*3/uL Normal 0.0-0.8 [facility] Comment on above: Performed By: #### Umberto MP3M, HEMDF ####[address] [place], [place] Monocytes/100 WBC (Bld) 7.4 % Normal 2.0-10.0 [facility] Comment on above: Performed By: #### B MP3M, HEMDF ####[address] [place], [place] Platelet mean volume (Bld) [Entitic vol] 9.2 fL Normal 7.4-10.4 [facility] Comment on above: Performed By: #### B MP3M, HEMDF ####[address] [place], [place] Platelets (Bld) [#/Vol] 131 10*3/uL Low 140-440 [facility] Comment on above: Performed By: #### B MP3M, HEMDF ####[address] [place], [place] RBC (Bld) [#/Vol] 3.35 10*6/uL Low 3.80-5.20 [facility] Comment on above: Performed By: #### B MP3M, HEMDF ####[facility] [place] [address] WBC (Bld) [#/Vol] 5.8 10*3/uL Normal 3.6-10.7 [facility] Comment on above: Performed By: #### B MP3M, HEMDF ####[facility] [address] [place] [address] XR CHEST PORTABLEon 02-01-20 Patient Name: HALEIGH ALMEIDA Diagnostic Radiology ACCESSION EXAM DATE/TIME PROCEDURE ORDERING PROVIDER [id number] 01/31/2021 06:48 EDT CR Chest Portable Bucky SHABAZZ SARAH CPT code 73188 Reason For Exam (CR Chest Portable) S/p [...] Phone: [facility] Results From [facility] - 01/31/2021 8:51 AM EDT Patient Name: HALEIGH ALMEIDA Diagnostic Radiology ACCESSION EXAM DATE/TIME PROCEDURE ORDERING PROVIDER [id number] 01/31/2021 06:48 EDT CR Chest Portable Bucky SHABAZZ SARAH CPT code 22691 Reason For Exam (CR Chest Portable) S/p [...] ANTHONY Transcribed Date and Time: 01/31/2021 8:48 [facility] Work Phone: Basic Metabolic Panelon 01-06 Anion gap [Moles/Vol] 6 mmol/L Normal 3-13 [facility] Comment on above: Performed By: #### B MP3M, HEMDF #### [address] [address] Calcium [Mass/Vol] 8.8 mg/dL Normal 8.4-10.4 [facility] Comment on above: Performed By: #### B MP3M, HEMDF #### [facility] [address] [place] [address] CO2 [Moles/Vol] 24 mmol/L Normal 22-30 [facility] Comment on above: Performed By: #### B MP3M, HEMDF #### [facility] [address] [place], [place] Creatinine [Mass/Vol] 0.95 mg/dL Normal 0.52-1.25 [facility] Comment on above: Performed By: #### B MP3M, HEMDF #### [address] [place] [address] GFR/1.73 sq M predicted among blacks MDRD (S/P/Bld) [Vol rate/Area] 73.4 mL/min/{1.73_m2} Normal >60 [facility] Comment on above: Performed By: #### B MP3M, HEMDF #### [address] GFR/1.73 sq M predicted among non-blacks MDRD (S/P/Bld) [Vol rate/Area] 63.3 mL/min/{1.73_m2} Normal >60 [facility] Comment on above: Result Comment: KDIG O [...] Performed By: #### B MP3M, HEMDF #### [address] Glucose [Mass/Vol] 123 mg/dL High 70-100 [facility] Comment on above: Performed By: #### B MP3M, HEMDF #### [address] Urea nitrogen [Mass/Vol] 14 mg/dL Normal 7-20 [facility] Comment on above: Performed By: #### B MP3M, HEMDF #### [facility] [address] [place], [place] Chloride [Moles/Vol] 105 mmol/L Normal 98-107 [facility] Comment on above: Performed By: #### B MP3M, HEMDF #### [facility] [address] [place], [place] Potassium [Moles/Vol] 4.1 mmol/L Normal 3.5-5.1 [facility] Comment on above: Performed By: #### B MP3M, HEMDF #### [facility] [address] [place], [place] Sodium [Moles/Vol] 135 mmol/L Normal 135-145 [facility] Comment on above: Performed By: #### B MP3M, HEMDF #### [facility] [address] [place], [place] Basic Metabolic Panel w/ Ref aarti to MGon 01-30-2021 Anion gap [Moles/Vol] 6 mmol/L 3 - 13 mmol/L [facility] Work Phone: Calcium [Mass/Vol] 8.8 mg/dL 8.4 - 10. 4 mg/dL [facility] Work Phone: Chloride [Moles/Vol] 105 mmol/L 98 - 10 7 mmol/L [facility] Work Phone: CO2 [Moles/Vol] 24 mmol/L 22 - 30 mmol/L [facility] Work Phone: Creatinine [Mass/Vol] 0.95 mg/dL 0.52 - 1.25 mg/dL [facility] Work Phone: EGFR IF NonAfrican Bhutanese 63.3 mL/min >60 [facility] Work Phone: Comment on above: KDIGO guidelines [...] MDRD (S/P/Bld) [Vol rate/Area] 73.4 mL/min/{1.73_m2} >60 [facility] Work Phone: [phone] Glucose [Mass/Vol] 123 mg/dL High 70 - 100 mg/dL [facility] Work Phone: [phone] Interpretation and review of laboratory results Abnormal [facility] Work Phone: Potassium [Moles/Vol] 4.1 mmol/L 3.5 - 5.1 mmol/L [facility] Work Phone: Sodium [Moles/Vol] 135 mmol/L 135 - 145 mmol/L [facility] Work Phone: [phone] Urea nitrogen [Mass/Vol] 14 mg/dL 7 - 20 mg/dL [facility] Work Phone: [phone] Test Performed by [facility], [address] [place] [address] [facility] Work Phone: [phone] CBC auto differentialon 01-06 Absolute Baso # 0.1 10*3/uL 0.0 - 0.2 10*3/uL [facility] Work Phone: [phone] Absolute Neut # 4.8 10*3/uL 1.8 - 7.0 10*3/uL [facility] Work Phone: [phone] Basophils/100 WBC (Bld) 1.2 % 0.0 - 2.0 % [facility] Work Phone: Eosinophils (Bld) [#/Vol] 0.1 10*3/uL 0.0 - 0.5 10*3/uL [facility] Work Phone: [phone] Eosinophils/100 WBC (Bld) 1.0 % 1.0 - 6.0 % [facility] Work Phone: Erythrocyte distribution width (RBC) [Ratio] 19.3 % High 11.5 - 14.5 % [facility] Work Phone: [phone] Granulocytes/100 WBC (Bld) 64.5 % 40.0 - 80.0 % [facility] Work Phone: Hematocrit (Bld) [Volume fraction] 29.8 % Low 35.0 - 47.0 % [facility] Work Phone: Hemoglobin (Bld) [Mass/Vol] 9.7 g/dL Low 11.7 - 16.0 g/dL [facility] Work Phone: [phone] Interpretation and review of laboratory results Abnormal [facility] Phone: Lymphocytes (Bld) [#/Vol] 1.9 10*3/uL 1.0 - 4.3 10*3/uL [facility] Work Phone: Lymphocytes/100 WBC (Bld) 25.5 % 20.0 - 40.0 % [facility] Work Phone: MCH (RBC) [Entitic mass] 25.6 pg Low 26. 0 - 34.0 pg [facility] Work Phone: MCHC (RBC) [Mass/Vol] 32.7 % 32.0 - 36.0 % [facility] Work Phone: MCV (RBC) [Entitic vol] 78.2 fL Low 79.0 - 98.0 fL [facility] Work Phone: Monocytes (Bld) [#/Vol] 0.6 10*3/uL 0.0 - 0.8 10*3/uL [facility] Work Phone: [phone] Monocytes/100 WBC (Bld) 7.8 % 2.0 - 10.0 % [facility] Work Phone: [phone] Platelet mean volume (Bld) [Entitic vol] 8.7 fL 7.4 - 10.4 fL [facility] Work Phone: Platelets (Bld) [#/Vol] 139 10*3/uL Low 140 - 440 10*3/uL [facility] Work Phone: [phone] RBC (Bld) [#/Vol] 3.81 10*6/uL 3.80 - 5.2 0 10*6/uL [facility] Work Phone: WBC (Bld) [#/Vol] 7.4 10*3/uL 3.6 - 10.7 10*3/uL [facility] Work Phone: Test Performed by [facility], [address] [place] [address] [facility] Work Phone: [phone] CR Chest Portableon 01-31-20 21 CR Chest Portable Patient Name: HALEIGH ALMEIDA Diagnostic Radiology ACCESSION EXAM DATE/TIME PROCEDURE ORDERING PROVIDER [id number] 01/30/2021 06:07 EDT CR Chest Portable Bucky SHABAZZ [place] CPT code 80550 Reason For Exam (CR Chest Portable) S/p [...] Abs Baso Cnt 0.1 10*3/uL Normal 0.0-0.2 [facility] Comment on above: Performed By: #### B MP3M, HEMDF #### [facility] [address] [place] [address] Abs Neutrophile Cnt 4.8 10*3/uL Normal 1.8-7.0 [facility] Comment on above: Performed By: #### B MP3M, HEMDF #### [facility] [address] [place] [address] Basophils/100 WBC (Bld) 1.2 % Normal 0.0-2.0 [facility] Comment on above: Performed By: #### B MP3M, HEMDF #### [address] [place] [address] Eosinophils (Bld) [#/Vol] 0.1 10*3/uL Normal 0.0-0.5 [facility] Comment on above: Performed By: #### B MP3M, HEMDF #### [address] [place] [address] Eosinophils/100 WBC (Bld) 1.0 % Normal 1.0-6.0 [facility] Comment on above: Performed By: #### B MP3M, HEMDF #### [address] [place] [address] Erythrocyte distribution width (RBC) [Ratio] 19.3 % High 11.5-14.5 [facility] Comment on above: Performed By: #### B MP3M, HEMDF #### [facility] [address] [place] [address] Granulocytes/100 WBC (Bld) 64.5 % Normal 40.0-80.0 [facility] Comment on above: Performed By: #### B MP3M, HEMDF #### [address] [place] [address] Hematocrit (Bld) [Volume fraction] 29.8 % Low 35.0-47.0 [facility] Comment on above: Performed By: #### B MP3M, HEMDF #### [facility] [address] [place], [place] Hemoglobin (Bld) [Mass/Vol] 9.7 g/dL Low 11.7-16.0 [facility] Comment on above: Performed By: #### B MP3M, HEMDF #### [facility] [address] [place], [place] Lymphocytes (Bld) [#/Vol] 1.9 10*3/uL Normal 1.0-4.3 [facility] Comment on above: Performed By: #### B MP3M, HEMDF #### [address] [place] [place], [place] Lymphocytes/100 WBC (Bld) 25.5 % Normal 20.0-40.0 [facility] Comment on above: Performed By: #### B MP3M, HEMDF #### [address] [place] [place], [place] MCH (RBC) [Entitic mass] 25.6 pg Low 26.0-34.0 [facility] Comment on above: Performed By: #### B MP3M, HEMDF #### [address] [place] [place], [place] MCHC (RBC) [Mass/Vol] 32.7 % Normal 32.0-36.0 [facility] Comment on above: Performed By: #### B MP3M, HEMDF #### [address] [place] [place], [place] MCV (RBC) [Entitic vol] 78.2 fL Low 79.0-98.0 [facility] Comment on above: Performed By: #### B MP3M, HEMDF #### [address] [place] [place], [place] Monocytes (Bld) [#/Vol] 0.6 10*3/uL Normal 0.0-0.8 [facility] Comment on above: Performed By: #### B MP3M, HEMDF #### [address] [place] [address] Monocytes/100 WBC (Bld) 7.8 % Normal 2.0-10.0 [facility] Comment on above: Performed By: #### B MP3M, HEMDF #### [facility] [facility] [address] [place] [address] Platelet mean volume (Bld) [Entitic vol] 8.7 fL Normal 7.4-10.4 [facility] Comment on above: Performed By: #### B MP3M, HEMDF #### [facility] [address] [place] [address] Platelets (Bld) [#/Vol] 139 10*3/uL Low 140-440 [facility] Comment on above: Performed By: #### B MP3M, HEMDF #### [facility] [address] [place] [address] RBC (Bld) [#/Vol] 3.81 10*6/uL Normal 3.80-5.20 [facility] Comment on above: Performed By: #### B MP3M, HEMDF #### [place] [address] [place] [address] WBC (Bld) [#/Vol] 7.4 10*3/uL Normal 3.6-10.7 [facility] Comment on above: Performed By: #### B MP3M, HEMDF #### [place] [address] [place] [address] XR CHEST PORTABLEon 01-31-[address] [facility] Incoming Radiology Results From [facility] - 01/30/2021 8:20 AM EDT Patient Name: HALEIGH ALMEIDA Diagnostic Radiology ACCESSION EXAM DATE/TIME PROCEDURE ORDERING PROVIDER [id number] 01/30/2021 06:07 EDT CR Chest Portable Bucky SHABAZZ SARAH CPT code 80794 Reason For Exam (CR Chest Portable) S/p [...] [facility] Work Phone: [facility]: [id number] Radiology ACCESSION EXAM DATE/TIME PROCEDURE ORDERING PROVIDER [id number] 01/30/2021 06:07 EDT CR Chest Portable Bucky SHABAZZ SARAH CPT code 77356 Reason For Exam (CR Chest Portable) S/p [...] REJI Transcribed Date and Time: 01/30/2021 8:18 [facility] Work Phone: Basic Metabolic Panelon 01-06 Calcium [Mass/Vol] 8.3 mg/dL Low 8.4-10.4 [facility] Comment on above: Performed By: #### H EMDF, BMP3M ####[facility]ile [address] [place], [place] Glucose [Mass/Vol] 133 mg/dL High 70-100 [facility] Comment on above: Performed By: #### H EMDF, BMP3M ####[facility] [address] [place], [place] Urea nitrogen [Mass/Vol] 15 mg/dL Normal 7-20 [facility] Comment on above: Performed By: #### H EMDF, BMP3M ####[facility]ile [address] [place], [place] Anion gap [Moles/Vol] 6 mmol/L Normal 3-13 [facility] Comment on above: Performed By: #### H EMDF, BMP3M ####[facility] [address] [place], [place] CO2 [Moles/Vol] 20 mmol/L Low 22-30 [facility] Comment on above: Performed By: #### H EMDF, BMP3M ####[facility]ile [address] [place], [place] Creatinine [Mass/Vol] 0.93 mg/dL Normal 0.52-1.25 [facility] Comment on above: Performed By: #### H EMDF, BMP3M ####[facility]ile [address] [place], [place] GFR/1.73 sq M predicted among blacks MDRD (S/P/Bld) [Vol rate/Area] 75.3 mL/min/{1.73_m2} Normal >60 [facility] Comment on above: Performed By: #### H EMDF, BMP3M ####[facility]ile [address] [place], [place] GFR/1.73 sq M predicted among non-blacks MDRD (S/P/Bld) [Vol rate/Area] 65.0 mL/min/{1.73_m2} Normal >60 [facility] Comment on above: Result Comment: KDIG O [...] secretion. Performed By: #### H DEVYN BMP3M ####[place] [address] [place], [place] Chloride [Moles/Vol] 104 mmol/L Normal 98-107 [facility] Comment on above: Performed By: #### H DEVYN BMP3M ####[place] [address] [place], [place] Potassium [Moles/Vol] 4.6 mmol/L Normal 3.5-5.1 [facility] Comment on above: Performed By: #### H DEVYN BMP3M ####[place] [address] [place], [place] Sodium [Moles/Vol] 130 mmol/L Low 135-145 [facility] Comment on above: Performed By: #### H DEVYN BMP3M ####[place] [address] [place], [place] Basic Metabolic Panel w/ Ref aarti to MGon 01-29-2021 Anion gap [Moles/Vol] 6 mmol/L 3 - 13 mmol/L [facility] Work Phone: [phone] Calcium [Mass/Vol] 8.3 mg/dL Low 8.4 - 10. 4 mg/dL [facility] Work Phone: [phone] Chloride [Moles/Vol] 104 mmol/L 98 - 10 7 mmol/L [facility] Work Phone: [phone] CO2 [Moles/Vol] 20 mmol/L Low 22 - 30 mmol/L [facility] Work Phone: [phone] Creatinine [Mass/Vol] 0.93 mg/dL 0.52 - 1.25 mg/dL [facility] Work Phone: [phone] IF NonAfrican Bhutanese 65.0 mL/min >60 [facility] Work Phone: [phone] Comment on above: KDIGO guidelines pro vide [...] rate/Area] 75.3 mL/min/{1.73_m2} >60 [facility] Work Phone: [phone] Glucose [Mass/Vol] 133 mg/dL High 70 - 100 mg/dL [facility] Work Phone: [phone] Interpretation and review of laboratory results Abnormal [facility] Work Phone: [phone] Potassium [Moles/Vol] 4.6 mmol/L 3.5 - 5.1 mmol/L [facility] Work Phone: [phone] Sodium [Moles/Vol] 130 mmol/L Low 135 - 145 mmol/L [facility] Work Phone: 1 Urea nitrogen [Mass/Vol] 15 mg/dL 7 - 20 mg/dL [facility] Work Phone: Test Performed by [facility] [address] [place] Work Phone: 1 CBC auto differentialon 01-06 Absolute Baso # 0.0 10*3/uL 0.0 - 0.2 10*3/uL [facility] Work Phone: Absolute Neut # 8.1 10*3/uL High 1.8 - 7.0 10*3/uL [facility] Work Phone: Basophils/100 WBC (Bld) 0.3 % 0.0 - 2.0 % [facility] Work Phone: Eosinophils (Bld) [#/Vol] 0.0 10*3/uL 0.0 - 0.5 10*3/uL [facility] Work Phone: Eosinophils/100 WBC (Bld) 0.0 % Low 1.0 - 6.0 % [facility] Work Phone: Erythrocyte distribution width (RBC) [Ratio] 19.1 % High 11.5 - 14.5 % [facility] Work Phone: Granulocytes/100 WBC (Bld) 79.0 % 40.0 - 80.0 % [facility] Phone: Hematocrit (Bld) [Volume fraction] 28.3 % Low 35.0 - 47.0 % [facility] Work Phone: Hemoglobin (Bld) [Mass/Vol] 9.2 g/dL Low 11.7 - 16.0 g/dL [facility] Work Phone: Interpretation and review of laboratory results Abnormal [facility] Work Phone: Lymphocytes (Bld) [#/Vol] 1.4 10*3/uL 1.0 - 4.3 10*3/uL [facility] Work Phone: Lymphocytes/100 WBC (Bld) 13.5 % Low 20.0 - 40.0 % [facility] Work Phone: [phone] MCH (RBC) [Entitic mass] 25.7 pg Low 26. 0 - 34.0 pg [facility] Work Phone: MCHC (RBC) [Mass/Vol] 32.6 % 32.0 - 36.0 % [facility] Work Phone: 1 MCV (RBC) [Entitic vol] 78.8 fL Low 79.0 - 98.0 fL [facility] Work Phone: 1 Monocytes (Bld) [#/Vol] 0.7 10*3/uL 0.0 - 0.8 10*3/uL [facility] Work Phone: Monocytes/100 WBC (Bld) 7.2 % 2.0 - 10.0 % [employer] Phone: Platelet mean volume (Bld) [Entitic vol] 8.7 fL 7.4 - 10.4 fL [facility] Phone: Platelets (Bld) [#/Vol] 152 10*3/uL 140 - 440 10*3/uL [facility] Work Phone: RBC (Bld) [#/Vol] 3.59 10*6/uL Low 3.80 - 5.2 0 10*6/uL [employer] Phone: WBC (Bld) [#/Vol] 10.3 10*3/uL 3.6 - 10.7 10*3/uL [facility] Work Phone: Test Performed by [facility], [address] [place] [address] [facility] Work Phone: [phone] CR Chest Portableon 01-30-20 21 CR Chest Portable Patient Name: HALEIGH ALMEIDA Diagnostic Radiology ACCESSION EXAM DATE/TIME PROCEDURE ORDERING PROVIDER [id number] 01/29/2021 05:44 EDT CR Chest Portable Bucky SHABAZZ [place] CPT code 16190 Reason For Exam (CR Chest Portable) S/p [...] Transcribed Date and Time: 01/29/2021 7:35 Normal [facility] Hemogram w/ Autodiffon 01-29 Abs Baso Cnt 0.0 10*3/uL Normal 0.0-0.2 [facility] Comment on above: Performed By: #### H EMDF BMP3M ####[facility]ile [address] [place] [address] Abs Neutrophile Cnt 8.1 10*3/uL High 1.8-7.0 [facility] Comment on above: Performed By: #### H EMDF BMP3M ####[facility]ile [address] [place] [address] Basophils/100 WBC (Bld) 0.3 % Normal 0.0-2.0 [facility] Comment on above: Performed By: #### H EMDF BMP3M ####[facility] [address] [place] [address] Eosinophils (Bld) [#/Vol] 0.0 10*3/uL Normal 0.0-0.5 [facility] Comment on above: Performed By: #### H EMDF BMP3M ####[facility] [address] [place] [address] Eosinophils/100 WBC (Bld) 0.0 % Low 1.0-6.0 [facility] Comment on above: Performed By: #### H DEVYN BMP3M ####[address] Erythrocyte distribution width (RBC) [Ratio] 19.1 % High 11.5-14.5 [facility] Comment on above: Performed By: #### H DEVYN BMP3M ####[address] Granulocytes/100 WBC (Bld) 79.0 % Normal 40.0-80.0 [facility] Comment on above: Performed By: #### H DEVYN BMP3M ####[address] Hematocrit (Bld) [Volume fraction] 28.3 % Low 35.0-47.0 [facility] Comment on above: Performed By: #### H DEVYN BMP3M ####[address] Hemoglobin (Bld) [Mass/Vol] 9.2 g/dL Low 11.7-16.0 [facility] Comment on above: Performed By: #### H DEVYN BMP3M ####[address] Lymphocytes (Bld) [#/Vol] 1.4 10*3/uL Normal 1.0-4.3 [facility] Comment on above: Performed By: #### H DEVYN BMP3M ####[address] Lymphocytes/100 WBC (Bld) 13.5 % Low 20.0-40.0 [facility] Comment on above: Performed By: #### H DEVYN BMP3M ####[address] MCH (RBC) [Entitic mass] 25.7 pg Low 26.0-34.0 [facility] Comment on above: Performed By: #### H DEVYN BMP3M ####[address], [place] MCHC (RBC) [Mass/Vol] 32.6 % Normal 32.0-36.0 [facility] Comment on above: Performed By: #### Camille SHEPARD BMP3M ####[address] MCV (RBC) [Entitic vol] 78.8 fL Low 79.0-98.0 [facility] Comment on above: Performed By: #### Camille SHEPARD BMP3M ####[address] Monocytes (Bld) [#/Vol] 0.7 10*3/uL Normal 0.0-0.8 [facility] Comment on above: Performed By: #### H DEVYN BMP3M ####[address] Monocytes/100 WBC (Bld) 7.2 % Normal 2.0-10.0 [facility] Comment on above: Performed By: #### H DEVYN BMP3M ####[address] Platelet mean volume (Bld) [Entitic vol] 8.7 fL Normal 7.4-10.4 [facility] Comment on above: Performed By: #### H DEVYN BMP3M ####[address] Platelets (Bld) [#/Vol] 152 10*3/uL Normal 140-440 [facility] Comment on above: Performed By: #### H DEVYN BMP3M ####[address] RBC (Bld) [#/Vol] 3.59 10*6/uL Low 3.80-5.20 [facility] Comment on above: Performed By: #### H DEVYN BMP3M ####[address] WBC (Bld) [#/Vol] 10.3 10*3/uL Normal 3.6-10.7 [facility] Comment on above: Performed By: #### H [facility] ####[facility] [place] [address] XR CHEST PORTABLEon 01-30-20 [place], [facility] Incoming Radiology Results From [facility] - 01/29/2021 7:43 AM EDT Patient [facility]: [facility]IDA [id number] Diagnostic Radiology ACCESSION EXAM DATE/TIME PROCEDURE ORDERING PROVIDER [id number] 01/29/2021 05:44 EDT CR Chest Portable Bucky SHABAZZ SARAH CPT code 66611 Reason For Exam (CR Chest Portable) S/p [...] HARLAN Transcribed Date and Time: 01/29/2021 7:35 [facility] Work Phone: Patient Name: [facility]IDA [id number] Diagnostic Radiology ACCESSION EXAM DATE/TIME PROCEDURE ORDERING PROVIDER [id number] 01/29/2021 05:44 EDT CR Chest Portable Bucky SHABAZZ SARAH CPT code 20702 Reason For Exam (CR Chest Portable) S/p [...] Radiology ACCESSION EXAM DATE/TIME PROCEDURE ORDERING PROVIDER [id number] 01/28/2021 14:18 EDT CR Chest Portable Bucky SHABAZZ RASHIDA CPT code 29869 Reason For Exam (CR Chest Portable) Chest [...] Transcribed Date and Time: 01/28/2021 3:56 Normal [facility] Op Noteon 01-28-2021 Op Note PATIENT: [...] evident in this area for removal. The 24-Tuvaluan Shawn drain was placed in the chest [...] no intra-airway abnormalities. cc: Dr. Radha Odom [facility] Job ID: [id number] Victor M Darby MD DOD:01/28/2021 01:47 P [place]/vianey DOT:01/28/2021 02:51 P Job Number: [id number] Document Number: [id number] cc: Victor M Darby MD [facility] [address] [place] [address] Normal [facility] Surgical Pathologyon 021 Surgical Pathology [id number] [facility] 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 They have not been cleared by [...] negativity on decalcified specimens. Professional Performing Location: [place] [address]. DEPARTMENT OF PATHOLOGY AND LABORATORY MEDICINE [place], [place] [address] [email or web address] Normal [facility] XR CHEST PORTABLEon 01-29-20 Patient Name: HALEIGH ALMEIDA Diagnostic Radiology ACCESSION EXAM DATE/TIME PROCEDURE ORDERING PROVIDER [id number] 01/28/2021 14:18 EDT CR Chest Portable Bucky SHABAZZ [place] CPT code 65065 Reason For Exam (CR Chest Portable) Chest [...] JEFFREY Transcribed Date and Time: 01/28/2021 3:56 [facility] Work Phone: [place], [facility] 01/28/2021 3:59 PM EDT Patient Name: HALEIGH ALMEIDA Diagnostic Radiology ACCESSION EXAM DATE/TIME PROCEDURE ORDERING PROVIDER [id number] 01/28/2021 14:18 EDT CR Chest Portable Bucky SHABAZZ RASHIDA CPT code 81974 Reason For Exam (CR Chest Portable) Chest [...] JEFFREY Transcribed Date and Time: 01/28/2021 3:56 [facility] Work Phone: [phone] 01-27-2021 SARS-CoV-2 SARS-CoV-2 --> Statu s: F Not Detected. Expected Result: Not Detected _ Real-time, RT-PCR performed on the [employer] System by the [facility] [employer] [facility] Negative results do not preclude SARS-CoV-2 infection and should not be used as the sole basis for treatment or other patient management decisions. This assay was developed and its performance characteristics determined by the [facility] [employer] Service. The U. S. Food and Drug Administration has not approved or cleared this test; however, FDA clearance or approval is not currently required for clinical use. Expected Result: Not Detected _ Real-time, RT-PCR performed on the [employer] System by the [facility] [employer] Service Negative results do not preclude SARS-CoV-2 infection and should not be used as the sole basis for treatment or other patient management decisions. This assay was developed and its performance characteristics determined by the [facility] [employer] [facility]. The U. S. Food and Drug Administration has not approved or cleared this test; however, FDA clearance or approval is not currently required for clinical use. Normal [facility] Comment on above: Performed By: #### C OVID ####[facility] [address] [place] [address] CBC auto differentialon 01-06 Absolute Baso # 0.1 10*3/uL 0.0 - 0.2 10*3/uL [facility] Work Phone: Absolute Neut # 3.0 10*3/uL 1.8 - 7.0 10*3/uL [employer] Phone: Basophils/100 WBC (Bld) 1.2 % 0.0 - 2.0 % [employer] Phone: Eosinophils (Bld) [#/Vol] 0.1 10*3/uL 0.0 - 0.5 10*3/uL [facility] Work Phone: 22 Eosinophils/100 WBC (Bld) 1.9 % 1.0 - 6.0 % [employer] Phone: Erythrocyte distribution width (RBC) [Ratio] 19.0 % High 11.5 - 14.5 % [employer] Phone: Granulocytes/100 WBC (Bld) 45.2 % 40.0 - 80.0 % [employer] Phone: Hematocrit (Bld) [Volume fraction] 34.1 % Low 35.0 - 47.0 % [facility] Work Phone: Hemoglobin (Bld) [Mass/Vol] 10.9 g/dL Low 11.7 - 16.0 g/dL [employer] Phone: 22 Interpretation and review of laboratory results Abnormal [facility] Work Phone: Lymphocytes (Bld) [#/Vol] 2.9 10*3/uL 1.0 - 4.3 10*3/uL [facility] Work Phone: 22 Lymphocytes/100 WBC (Bld) 44.0 % High 20.0 - 40.0 % [facility] Work Phone: 1 MCH (RBC) [Entitic mass] 25.3 pg Low 26. 0 - 34.0 pg [facility] Work Phone: 1 MCHC (RBC) [Mass/Vol] 31.9 % Low 32.0 - 36.0 % [facility] Work Phone: 1 MCV (RBC) [Entitic vol] 79.3 fL 79.0 - 98.0 fL [facility] Work Phone: 1 Monocytes (Bld) [#/Vol] 0.5 10*3/uL 0.0 - 0.8 10*3/uL [facility] Work Phone: 1 Monocytes/100 WBC (Bld) 7.7 % 2.0 - 10.0 % [employer] Phone: 1 Platelet mean volume (Bld) [Entitic vol] 9.4 fL 7.4 - 10.4 fL [employer] Phone: 1 Platelets (Bld) [#/Vol] 201 10*3/uL 140 - 440 10*3/uL [facility] Work Phone: 1 RBC (Bld) [#/Vol] 4.30 10*6/uL 3.80 - 5.2 0 10*6/uL [facility] Work Phone: 1 WBC (Bld) [#/Vol] 6.6 10*3/uL 3.6 - 10.7 10*3/uL [facility] Work Phone: 1 Test Performed by [employer], [address] [place] [address] [facility] Work Phone: [phone] COVID-19on 01-26-2021 SARS-CoV-2 Not Detected. Not Detected [facility] Work Phone: 1 Comment on above: Not Detected. Expected Result: Not Detected _ Real-time, RT-PCR performed on the [employer] System by the [facility] [employer] [facility] Service Negative results do not preclude SARS-CoV-2 infection and should not be used as the sole basis for treatment or other patient management decisions. This assay was developed and its performance characteristics determined by the [facility] Service. The U. S. Food and Drug Administration has not approved or cleared this test; however, FDA clearance or approval is not currently required for clinical use. Test Performed by [facility], [address] [place] [address] CR Chest PA/LATon 01-26-2021 CR Chest PA/LAT Patient Name: HALEIGH ALMEIDA Diagnostic Radiology ACCESSION EXAM DATE/TIME PROCEDURE ORDERING PROVIDER [id number] 01/26/2021 15:26 EDT CR Chest PA and LAT REYNOSOCANov CPT code 78957 Reason For Exam (CR Chest PA and [...] Transcribed Date and Time: 01/26/2021 8:36 Normal [facility] Comp Metabolic Panelon 01-26 ALP [Catalytic activity/Vol] 85 U/L Normal 38-126 [facility] Comment on above: Performed By: #### H EMDF, PT, CMP3 #### [address] [address] ALT [Catalytic activity/Vol] 35 U/L High 0-34 [facility] Comment on above: Result Comment: The ALT test is performed by an updated assay method. Please note that the reference intervals have been changed and are now sex specific. Performed By: #### H EMDF, PT, CMP3 #### [address] Calcium [Mass/Vol] 9.4 mg/dL Normal 8.4-10.4 [facility] Comment on above: Performed By: #### H KIM SHEPARD CMP3 #### [facility] [address], [place] Glucose [Mass/Vol] 94 mg/dL Normal 70-100 [facility] Comment on above: Performed By: #### H KIM SHEPARD, CMP3 #### [facility] [address], [place] Urea nitrogen [Mass/Vol] 12 mg/dL Normal 7-20 [facility] Comment on above: Performed By: #### H KIM SHEPARD, CMP3 #### [facility] [address], [place] Anion gap [Moles/Vol] 11 mmol/L Normal 3-13 [facility] Comment on above: Performed By: #### H KIM SHEPARD, CMP3 #### [facility] [address], [place] AST [Catalytic activity/Vol] 41 U/L Normal 15-46 [facility] Comment on above: Performed By: #### H KIM SHEPARD, CMP3 #### [facility] [address], [place] Bilirubin [Mass/Vol] 0.3 mg/dL Normal 0.2-1.3 [facility] Comment on above: Performed By: #### H KIM SHEPARD, CMP3 #### [facility] [address], [place] CO2 [Moles/Vol] 21 mmol/L Low 22-30 [facility] Comment on above: Performed By: #### H KIM SHEPARD, CMP3 #### [facility] [address], [place] Creatinine [Mass/Vol] 0.98 mg/dL Normal 0.52-1.25 [facility] Comment on above: Performed By: #### H DEVYN PT, CMP3 #### [facility] [address], [place] GFR/1.73 sq M predicted among blacks MDRD (S/P/Bld) [Vol rate/Area] 70.7 mL/min/{1.73_m2} Normal >60 [facility] Comment on above: Performed By: #### H KIM SHEPARD, CMP3 #### [facility] [address], [place] GFR/1.73 sq M predicted among non-blacks MDRD (S/P/Bld) [Vol rate/Area] 61.0 mL/min/{1.73_m2} Normal >60 [facility] Comment on above: Result Comment: KDIG [...] By: #### H KIM SHEPARD, CMP3 #### [facility] [address] [place], [place] Protein [Mass/Vol] 8.3 g/dL High 6.3-8.2 [facility] Comment on above: Performed By: #### H DEVYN PT, CMP3 #### [place] [address] [place], [place] Potassium [Moles/Vol] 4.2 mmol/L Normal 3.5-5.1 [facility] Comment on above: Performed By: #### H DEVYN PT, CMP3 #### [place] [address] [place], [place] Sodium [Moles/Vol] 133 mmol/L Low 135-145 [facility] Comment on above: Performed By: #### H EMDF, PT, CMP3 #### [facility] [address], [place] Albumin [Mass/Vol] 4.7 g/dL Normal 3.5-5.0 [facility] Comment on above: Performed By: #### H EMDF, PT, CMP3 #### [facility] [address], [place] Chloride [Moles/Vol] 101 mmol/L Normal 98-107 [facility] Comment on above: Performed By: #### H EMDF, PT, CMP3 #### [place] [address] [address] [place], [place] Complete Urinalysison 2020 Appearance (U) Clear Normal Clear [facility] Comment on above: Result Comment: . Performed By: #### C UA2 #### [place] [address] [address] [place], [place] Bilirubin,Urine Negative Normal Negative [facility] Comment on above: Result Comment: . Performed By: #### C UA2 #### [place] [address] [address] [place], [place] Color (U) Colorless Normal Lt. Yellow [facility] Comment on above: Result Comment: . Performed By: #### C UA2 #### [place] [address] [address] [place], [place] Glucose Ql (U) Normal Normal Normal (<70) [facility] Comment on above: Result Comment: . Performed By: #### C UA2 #### [place] [address] [address] [place], [place] Ketone,Urine Negative Normal Negative [facility] Comment on above: Result Comment: . Performed By: #### C UA2 #### [place] [address] [address] [place], [place] Leukocytes,Urine Negative Normal Negative [facility] Comment on above: Result Comment: . Performed By: #### C UA2 #### [place] [address] [address] [place], [place] Nitrites,Urine Negative Normal Negative [facility] Comment on above: Result Comment: . Performed By: #### C UA2 #### [facility] [address] [place], [place] Occult Blood,Urine Negative Normal Negative [facility] Comment on above: Result Comment: . Performed By: #### C UA2 #### [facility] [address], [place] pH (U) 5.0 Normal 5.0-8.0 [facility] Comment on above: Result Comment: . Performed By: #### C UA2 #### [facility] [address], [place] Protein (U) [Mass/Vol] Negative Normal Negative [facility] Comment on above: Result Comment: . Performed By: #### C UA2 #### [facility] [address] [place], [place] Specific [place],Urine 1.005 Normal 1.005 - 1.030 [facility] Comment on above: Result Comment: . Performed By: #### C UA2 #### [facility] [address] [place], [place] Urobilinogen,Urine Normal Normal Normal (0-1) [facility] Comment on above: Result Comment: . Performed By: #### C UA2 #### [facility] [address], [place] Comprehensive Metabolic Pane frederick 01-26-2021 Albumin [Mass/Vol] 4.7 g/dL 3.5 - 5.0 g/dL [facility] Work Phone: ALP [Catalytic activity/Vol] 85 U/L 38 - 126 U/L [facility] Work Phone: ALT [Catalytic activity/Vol] 35 U/L High 0 - 34 U/L [facility] Work Phone: Comment on above: The ALT test is perf ormed by an updated assay method. Please note that the reference intervals have been changed and are now sex specific. Anion gap [Moles/Vol] 11 mmol/L 3 - 13 mmol/L [facility] Work Phone: [phone] AST [Catalytic activity/Vol] 41 U/L 15 - 46 U/L [facility] Work Phone: [phone] Bilirubin Ql (U) 0.3 mg/dL 0.2 - 1.3 mg/dL [facility] Work Phone: [phone] Calcium [Mass/Vol] 9.4 mg/dL 8.4 - 10. 4 mg/dL [facility] Work Phone: [phone] Chloride [Moles/Vol] 101 mmol/L 98 - 10 7 mmol/L [facility] Work Phone: [phone] CO2 [Moles/Vol] 21 mmol/L Low 22 - 30 mmol/L [facility] Work Phone: [phone] Creatinine [Mass/Vol] 0.98 mg/dL 0.52 - 1.25 mg/dL [facility] Work Phone: [phone] EGFR IF NonAfrican Bhutanese 61.0 mL/min >60 [facility] Work Phone: [phone] Comment on above: KDIGO guidelines pro vide [...] rate/Area] 70.7 mL/min/{1.73_m2} >60 [facility] Work Phone: [phone] Glucose [Mass/Vol] 94 mg/dL 70 - 100 mg/dL [facility] Work Phone: [phone] Interpretation and review of laboratory results Abnormal [facility] Work Phone: Potassium [Moles/Vol] 4.2 mmol/L 3.5 - 5.1 mmol/L [facility] Work Phone: Protein [Mass/Vol] 8.3 g/dL High 6.3 - 8.2 g/dL [facility] Work Phone: [phone] Sodium [Moles/Vol] 133 mmol/L Low 135 - 145 mmol/L [facility] Work Phone: [phone] Urea nitrogen [Mass/Vol] 12 mg/dL 7 - 20 mg/dL [facility] Work Phone: [phone] Test Performed by [facility] Tactile [facility], [address] [place] [address] [facility] Work Phone: Hemogram w/ Autodiffon 01-26 Abs Baso Cnt 0.1 10*3/uL Normal 0.0-0.2 [facility] Comment on above: Performed By: #### H EMDF PT, CMP3 #### [facility] light [address] [place] [phone] Abs Neutrophile Cnt 3.0 10*3/uL Normal 1.8-7.0 [facility] Comment on above: Performed By: #### H EMDF PT, CMP3 #### [address] [address] Basophils/100 WBC (Bld) 1.2 % Normal 0.0-2.0 [facility] Comment on above: Performed By: #### H EMDF, PT, CMP3 #### [address] [address] Eosinophils (Bld) [#/Vol] 0.1 10*3/uL Normal 0.0-0.5 [facility] Comment on above: Performed By: #### H EMDF PT, CMP3 #### [facility] [employer] [address] [address] Eosinophils/100 WBC (Bld) 1.9 % Normal 1.0-6.0 [facility] Comment on above: Performed By: #### H EMDF PT, CMP3 #### [facility] [address] [place], [place] Erythrocyte distribution width (RBC) [Ratio] 19.0 % High 11.5-14.5 [facility] Comment on above: Performed By: #### H EMDF, PT, CMP3 #### [place] [address] [address] [place], [place] Granulocytes/100 WBC (Bld) 45.2 % Normal 40.0-80.0 [facility] Comment on above: Performed By: #### H EMDF, PT, CMP3 #### [place] [address] [address] [place], [place] Hematocrit (Bld) [Volume fraction] 34.1 % Low 35.0-47.0 [facility] Comment on above: Performed By: #### H EMDF, PT, CMP3 #### [place] [address] [address] [place], [place] Hemoglobin (Bld) [Mass/Vol] 10.9 g/dL Low 11.7-16.0 [facility] Comment on above: Performed By: #### H EMDF, PT, CMP3 #### [place] [address] [address] [place], [place] Lymphocytes (Bld) [#/Vol] 2.9 10*3/uL Normal 1.0-4.3 [facility] Comment on above: Performed By: #### H EMDF, PT, CMP3 #### [place] [address] [address] [place], [place] Lymphocytes/100 WBC (Bld) 44.0 % High 20.0-40.0 [facility] Comment on above: Performed By: #### H EMDF, PT, CMP3 #### [place] [address] [address] [place], [place] MCH (RBC) [Entitic mass] 25.3 pg Low 26.0-34.0 [facility] Comment on above: Performed By: #### H EMDF, PT, CMP3 #### [place] [address] [address] [place], [place] MCHC (RBC) [Mass/Vol] 31.9 % Low 32.0-36.0 [facility] Comment on above: Performed By: #### H EMDF, PT, CMP3 #### [place] [address] [address] [place], [place] MCV (RBC) [Entitic vol] 79.3 fL Normal 79.0-98.0 [facility] Comment on above: Performed By: #### H EMDF, PT, CMP3 #### [place] [address] [address] [place], [place] Monocytes (Bld) [#/Vol] 0.5 10*3/uL Normal 0.0-0.8 [facility] Comment on above: Performed By: #### H EMDF, PT, CMP3 #### [place] [address] [address] [place], [place] Monocytes/100 WBC (Bld) 7.7 % Normal 2.0-10.0 [facility] Comment on above: Performed By: #### H EMDF, PT, CMP3 #### [place] [address] [address] [place], [place] Platelet mean volume (Bld) [Entitic vol] 9.4 fL Normal 7.4-10.4 [facility] Comment on above: Performed By: #### H EMDF, PT, CMP3 #### [place] [address] [address] [place], [place] Platelets (Bld) [#/Vol] 201 10*3/uL Normal 140-440 [facility] Comment on above: Performed By: #### H EMDF, PT, CMP3 #### [place] [address] [address] [place], [place] RBC (Bld) [#/Vol] 4.30 10*6/uL Normal 3.80-5.20 [facility] Comment on above: Performed By: #### H EMDF, PT, CMP3 #### [place] [address] [address] [place], [place] WBC (Bld) [#/Vol] 6.6 10*3/uL Normal 3.6-10.7 [facility] Comment on above: Performed By: #### H EMDF, PT, CMP3 #### [facility] [address] [place] [address] Prothrombin Timeon INR Coag (PPP) [Relative time] 1.0 Normal 0.9-1.1 [facility] Comment on above: Result Comment: Harvey [...] By: #### H EMDF, PT, CMP3 #### [facility] light [address] [place] [phone] PT Coag (PPP) [Time] 10.9 s Normal 9.0-12.0 [facility] light Comment on above: Result Comment: . Performed By: #### H EMDF, PT, CMP3 #### [facility] [employer] [address] [address] Protime-INRon 01-26-2021 INR Coag (PPP) [Relative time] 1.0 {INR} [facility] Work Phone: Comment on above: Recommended Anticoag [...] 10.9 s 9.0 - 1 2.0 s [facility] Work Phone: Comment on above: . Test Performed by [facility] light, [address] [place] [address] [facility] Work Phone: [phone] TS GELon 01-26-2021 TS GEL ABO Group: A Rh, Gel: POS Antibody Screen Gel: NEG Normal [facility] Comment on above: Performed By: #### T SGL ####[facility] TYPE AND SCREENon 01-26-2021 Sodium [Moles/Vol] Positive [facility] Work Phone: 1 Sodium [Moles/Vol] Negative [facility] Work Phone: 1 Sodium [Moles/Vol] A [facility] Work Phone: 1 Test Performed by [facility], [address] [place] [address] [place] Work Phone: 1 Urinalysison 01-26-2021 Appearance (U) Clear Clear NA [facility] Work Phone: 1 Comment on above: . Bilirubin Urine Negative Negative mg/dL [facility] Work Phone: 1 Comment on above: . Color (U) Colorless Lt. Yellow NA [facility] Work Phone: 1 Comment on above: . Glucose, Ur Normal Normal (<70) mg/dL [facility] Work Phone: 1 Comment on above: . Ketones Ql (U) Negative Negative mg/dL [facility] Work Phone: 1 Comment on above: . LEUKOCYTES, UA Negative Negative Lane/uL [facility] Work Phone: 1 Comment on above: . Nitrite, Urine Negative Negative NA [facility] Work Phone: 1 Comment on above: . Occult Blood,Urine Negative Negative mg/dL [facility] Work Phone: 1 Comment on above: . pH (U) 5.0 [pH] [facility] Work Phone: 1 Comment on above: . Protein (U) [Mass/Vol] Negative Negat estefania mg/dL [facility] Work Phone: [phone] Comment on above: . Specific [place], Urine 1.005 S [facility] Work Phone: 1 Comment on above: . Urobilinogen, Urine Normal Normal (0-1) mg/dL [facility] Work Phone: Comment on above: . Test Performed by [facility], [address] [place] [address] [facility] Work Phone: XR CHEST (2 VW)on 01-26-2021 Patient Name: HALEIGH ALMEIDA Diagnostic Radiology ACCESSION EXAM DATE/TIME PROCEDURE ORDERING PROVIDER [id number] 01/26/2021 15:26 EDT CR Chest PA & LAT REYNOSO, MAINTENANCE MECHANIC TELEPHONE, [place] C CPT code 33433 Reason For Exam (CR Chest PA & [...] ALFRED Transcribed Date and Time: 01/26/2021 8:36 [facility] Work Phone: [place], [facility] Incoming Radiology Results From [facility] - 01/26/2021 8:38 PM EDT Patient Name: HALEIGH ALMEIDA Diagnostic Radiology ACCESSION EXAM DATE/TIME PROCEDURE ORDERING PROVIDER [id number] 01/26/2021 15:26 EDT CR Chest PA & LAT REYNOSO, MAINTENANCE MECHANIC TELEPHONE, [place] C CPT code 32793 Reason For Exam (CR Chest PA & [...] Date: 11/29/2019 2:36:17 PM Ordering Provider:Arlin Cruz [facility] ([place]) PROGRESSon 10-30-2019 PROGRESS HNO ID: [id number] Author: Kaylyn Degroot Service: ? Author Type: Physician Plate Furnace Operator Type: Progress Notes Filed: 10/30/2019 12:57 PM Note Text: FOLLOW UP VISIT - ENDOSCOPY NAME: Haleigh Lima [facility] NO.: [id number] DATE OF SERVICE: 10/25/2019 : 1955 REFERRING [...] with more than 50% of the total yjtb-ms-lkfj time of the visit in counseling / coordination of care. Kaylyn Degroot PA-C [facility] PROGRESSon 10-27-2019 PROGRESS HNO ID: [id number] Author: Angel Katz Service: ? Author Type: Physician Type: Progress Notes Filed: 10/27/2019 1:44 PM Note Text: OPERATIVE NOTATION FOR [facility] SURGICAL PROCEDURE. October 18, 2019 Haleigh Masdarrel 1955 [id number] female PROCEDURE: EGD WITH BIOPSY - [id number] and COLONOSCOPY - [id number] SURGEON: Marysol Katz M.D. FACS RUG INSPECTOR HELPER: None DEPT: WQ PROVIDER: [id number] Katz MD POS: [id number]=[id number] DIAGNOSIS: (R19.5) Heme positive stool (primary encounter diagnosis) (R11.0) Nausea (Z80.0) Family history of colon cancer ASA CLASS: 3 - Severe FINDINGS: COMPLICATIONS: None PMHx - PAST MEDICAL HISTORY Diagnosis Date - Adjustment disorder with depressed mood - Chronic airway obstruction, not elsewhere classified - Coronary artery disease - Coronary atherosclerosis of unspecified type of vessel, algaaciq or graft - Dyslipidemia - Esophageal reflux Gastroesophageal reflux - Malignant melanoma of skin of upper limb, including shoulder (HCC) 2007 right arm - Obstructive sleep apnea - Peripheral vascular disease (HCC) - PMH - PAST MEDICAL HISTORY OF low back DDD- in pain management COMORBIDITIES - COPD, HTN and ME Post Op Occurrences - None Wound Classification - Clean Contaminated Operative note dictated in the [facility] dictation system. Angel Katz MD Normal [facility] CNOVon 10-25-2019 CNOV Office Visit (GENSWS ) HALEIGH ALMEIDA ([id number]) 1955 F Date Time Provider Department 10/25/19 9:30 AM KAYLYN DEGROOT During your visit today, we recorded the following information about you: Temperature Pulse Respiration Blood pressure 97 degrees 69/minute 14/minute 148/78 Weight 66.2 kg Kaylyn Degroot PA-C 10/25/2019 9:54 AM Signed The following instructions are important for you related to your office visit today with the [facility] General Surgeons. INSTRUCTIONS FOLLOWING A NORMAL [...] you should contact our office immediately @ [phone] and ask to be transferred to the General Surgery department. Kaylyn Degroot PA-C 10/30/2019 12:57 PM Signed FOLLOW UP VISIT - ENDOSCOPY NAME: Haleigh Lima [facility] NO.: [id number] DATE OF SERVICE: 10/25/2019 : 1955 REFERRING [...] with more than 50% of the total qrua-ix-ggzu time of the visit in counseling / coordination of care. Kaylyn Degroot PA-C Referring Provider: RADHA ODOM [[id number]] Allergies As of Date: 10/25/2019 Noted Allergy [...] to your office visit today with the [facility] General Surgeons. INSTRUCTIONS FOLLOWING A NORMAL [...] you should contact our office immediately @ [phone] and ask to be transferred to the General Surgery department. Encounter Status:Closed by KAYLYN DEGROOT PA-C on 10/30/19 [facility] CNOVon 10-17-2019 CNOV Office Visit (GENSWS ) HALEIGH ALMEIDA ([id number]) 1955 F Date Time Provider Department 10/17/19 [...] time. ? Patient was recently hospitalized at [facility] in June 2019 with complaints of chest [...] Coronary atherosclerosis of unspecified type of vessel, algaaciq or graft - Dyslipidemia - Esophageal reflux [...] Mammogram screening? 03/2016 ? Last Colonoscopy: 02/2013 [place] ? PHYSICAL EXAMINATION: General: The patient is [...] 10:11 AM >> LUIS ARMANDO BHARDWAJ LPN [facility] Oct 17, 2019 10:11 AM Please d/c PROMETHAZINE 12.5 MG TABLET >> Luis Armando Bhardwaj RESIDENTIAL LEASING MANAGER 10/17/2019 10:11 AM >> LUIS ARMANDO BHARDWAJ LPN [facility] Oct 17, 2019 10:11 AM Please óscar DICLOFENAC 1 % TOPICAL GEL >> Luis Armando Bhardwaj LPN 10/17/2019 10:14 AM >> LUIS ARMANDO BHARDWAJ LPN [facility] Oct 17, 2019 10:14 AM Please óscar FERROUS SULFATE 325 MG (65 MG IRON) TABLET,DELAYED RELEASE >> Luis Armando Bhardwaj LPN 10/17/2019 10:13 AM >> LUIS ARMANDO BHARDWAJ LPN [facility] Oct 17, 2019 10:13 AM Please óscar CYANOCOBALAMIN (VIT B-12) 1,000 MCG/ML INJECTION KIT >> Luis Armando Bhardwaj LPN 10/17/2019 10:14 AM >> LUIS ARMANDO BHARDWAJ LPN [facility] Oct 17, 2019 10:14 AM Please óscar LIDOCAINE 5 % TOPICAL PATCH >> Luis Armando Bhardwaj LPN 10/17/2019 10:12 AM >> LUIS ARMANDO BHARDWAJ LPN [facility] Oct 17, 2019 10:12 AM Please óscar -1 ORAL >> Luis Armando Bhardwaj [facility] 10/17/2019 10:11 AM >> LUIS ARMANDO BHARDWAJ RESIDENTIAL LEASING MANAGER [facility] Oct 17, 2019 10:11 AM Please óscar ROSUVASTATIN 5 MG TABLET >> Luis Armando Bhardwaj [facility] 10/17/2019 10:10 AM >> LUIS ARMANDO BHARDWAJ RESIDENTIAL LEASING MANAGER [facility] Oct 17, 2019 10:10 AM Please lenora/olamide OXYCODONE-ACETAMINOPHE N 5 MG-325 MG TABLET >> Luis Armando Bhardwaj [facility] 10/17/2019 10:11 AM >> LUIS ARMANDO BHARDWAJ RESIDENTIAL LEASING MANAGER [facility] Oct 17, 2019 10:11 AM Please óscar MELOXICAM 15 MG TABLET >> Luis Armando Bhardwaj [facility] 10/17/2019 10:12 AM >> LUIS ARMANDO BHARDWAJ RESIDENTIAL LEASING MANAGER [facility] Oct 17, 2019 10:12 AM Please óscar BUSPIRONE 5 MG TABLET >> Luis Armando Bhardwaj [facility] 10/17/2019 10:14 AM >> LUIS ARMANDO BHARDWAJ LPN [facility] Oct 17, 2019 10:14 AM Please óscar FENTANYL 75 MCG/HR TRANSDERMAL PATCH >> Luis Armando Bhardwaj [facility] 10/17/2019 10:14 AM >> LUIS ARMANDO BHARDWAJ LPN [facility] Oct 17, 2019 10:14 AM Luis Manuel cantrell CITALOPRAM 20 MG TABLET >> Luis Armando Bhardwaj [facility] 10/17/2019 10:14 AM >> LUIS ARMANDO BHARDWAJ RESIDENTIAL LEASING MANAGER [facility] Oct 17, 2019 10:14 AM Luis Manuel cantrell HYDROCORTISONE 2.5 % LOTION >> Luis Armando Bhardwaj [facility] 10/17/2019 10:12 AM >> LUIS ARMANDO BHARDWAJ LPN [facility] Oct 17, 2019 10:12 AM Luis Manuel cantrell FUROSEMIDE 40 MG TABLET >> Luis Armando Bhardwaj [facility] 10/17/2019 10:04 AM >> LUIS ARMANDO BHARDWAJ LPN [facility] Oct 17, 2019 10:04 AM NITROSTAT 0.4 MG SUBLINGUAL TABLET >> Luis Armando Bhardwaj [facility] 10/17/2019 10:12 AM >> LUIS ARMANDO BHARDWAJ LPN [facility] Oct 17, 2019 10:12 AM Please [...] Status:Closed by KAYLYN DEGROOT PA-C on 10/17/19 [facility] PROGRESSon 10-17-2019 PROGRESS HNO ID: [id number] Author: Kaylyn Degroot Service: ? Author Type: Physician Plate Furnace Operator Type: Progress Notes Filed: 10/17/2019 4:46 PM [...] time. ? Patient was recently hospitalized at [facility] in June 2019 with complaints of chest [...] Coronary atherosclerosis of unspecified type of vessel, algaaciq or graft - Dyslipidemia - Esophageal reflux [...] EGD W/O OR W/BRUSH/WASH 04/21/15 EGD inpt [facility] - HEMORRHOID;BAND LIGAT, SNGL/MUL Hemorrhoidectomy - INT [...] continuous oral anticoagulation Kaylyn Degroot PA-C Normal [facility] CNOVon 07-18-2019 CNOV Office Visit (GENSWS ) HALEIGH ALMEIDA ([id number]) 1955 F Date Time Provider Department 07/18/19 [...] that time. Patient was recently hospitalized at [facility] in June 2019 with complaints of chest [...] Coronary atherosclerosis of unspecified type of vessel, algaaciq or graft - Dyslipidemia - Esophageal reflux [...] file Gets together: Not on file Attends quaker service: Not on file Active member of [...] Care. Request for cardiac clearance faxed to [facility] Diagnoses: (R19.5) Heme positive stool (primary encounter diagnosis) (Z80.0) Family history of colon cancer (R11.0) Nausea (Z85.820) History of melanoma (Z95.1) S/P CABG (coronary artery bypass graft) Kaylyn Degroot PA-C Referring Provider: RADHA ODOM [[id number]] Allergies As of Date: 07/18/2019 Noted Allergy [...] screening? 03/2016 Last Colonoscopy: 02/2013 Celine Vera RESIDENTIAL LEASING MANAGER Prescriptions ordered this encounter Disp Refills Start End PEG 3350-ELECTROLYTES 236 GRAM-22.74* 1 Jaime* 0 07/18/2019 07/18/2019 Route: ORAL Sig: Take 4,000 mL by mouth one time only for 1 dose. Encounter Status:Closed by KAYLYN DEGROOT PA-C on 07/18/19 Normal [facility] PROGRESSon 07-18-2019 PROGRESS HNO ID: [id number] Author: Kaylyn Degroot Service: ? Author Type: Physician Plate Furnace Operator Type: Progress Notes Filed: 07/18/2019 3:35 PM [...] that time. Patient was recently hospitalized at [facility] in June 2019 with complaints of chest [...] Coronary atherosclerosis of unspecified type of vessel, algaaciq or graft - Dyslipidemia - Esophageal reflux [...] EGD W/O OR W/BRUSH/WASH 04/21/15 EGD inpt [facility] - HEMORRHOID;BAND LIGAT, SNGL/MUL Hemorrhoidectomy - INT [...] file Gets together: Not on file Attends quaker service: Not on file Active member of [...] entered by the nurse and reviewed by oh Nursing Notes: Merle Vera LPN 07/18/2019 8:57 [...] Care. Request for cardiac clearance faxed to [facility] Diagnoses: (R19.5) Heme positive stool (primary encounter diagnosis) (Z80.0) Family history of colon cancer (R11.0) Nausea (Z85.820) History of melanoma (Z95.1) S/P CABG (coronary artery bypass graft) aKylyn Degroot PA-C Normal [facility] XR FLUORO GUIDANCE FOR THERA PY INJECTIONon 05-17-2019 XR FLUORO GUIDANCE FOR THERAPY INJECTION ORIGINAL Images acquired, not reported on this accession number. Normal [facility] ([place]) ED NOTEon 01-05-2019 ED NOTE HNO ID: [id number] Author: Glenn HurtadoRn) MARIA TERESA Arshad Service: Nursing Author Type: Registered Nurse Type: ED Notes Filed: 01/05/2019 7:08 PM Note Text: Clean catch urine specimen obtained and sent. Normal [facility] ED NOTE HNO ID: [id number] Author: Sandhya HurtadoRn) MARIA TERESA Whitley Service: Emergency Medicine Author Type: Registered Nurse Type: ED Notes Filed: 01/05/2019 6:35 PM Note Text: Pt has history of chronic back problems c/o increased back pain over past few days, no known injury Normal [facility] ED PROV NOTEon 01-05-2019 ED PROV NOTE HNO ID: [id number] Author: Radha Mahan MD Service: Emergency Medicine [...] Coronary atherosclerosis of unspecified type of vessel, algaaciq or graft - Dyslipidemia - Esophageal reflux [...] 0100 Radha Mahan MD 01/06/19 0639 Normal [facility] Urinalysis Routineon 019 Appearance Nom (U) CLEAR Normal [facility] Comment on above: Performed By: #### L URIN #### [address] [address] Bilirubin Urine Negative Normal Negative [facility] Comment on above: Performed By: #### L URIN #### [address] [address] Color Nom (U) YELLOW Normal [facility] Comment on above: Performed By: #### L URIN #### [facility] [address] [place], [place] [address] Ep Cells Urine 0-2 Normal 0-5 [facility] Comment on above: Performed By: #### L URIN #### [facility] [address] [place] [address] Glucose Ql (U) Negative Normal Negative [facility] Comment on above: Performed By: #### L URIN #### [facility] [address] [place] [address] Hemoglobin,Urine Negative Normal Negative [facility] Comment on above: Performed By: #### L URIN #### [facility] [address] [place] [address] Ketone Urine Negative Normal Negative [facility] Comment on above: Performed By: #### L URIN #### [place] [address] Leukocytes Esterase TRACE Abnormal Negative [facility] Comment on above: Performed By: #### L URIN #### [facility] [address] [place] [address] Nitrites Urine Negative Normal Negative [facility] Comment on above: Performed By: #### L URIN #### [facility] [address] [place] [address] pH (U) 5.5 [pH] Normal 5.0-8.0 [facility] Comment on above: Performed By: #### L URIN #### [place] [address] Protein mass conc (U) Negative Normal Negative [facility] Comment on above: Performed By: #### L URIN #### [place] [address] RBC LM.HPF #/area (Urine sed) NONE Normal 0-3 [facility] Comment on above: Performed By: #### L URIN #### [facility] [address] [place] [address] Specific [place], Ur <=1.005 Normal 1.005-1.030 [facility] Comment on above: Performed By: #### L URIN #### [facility] [address] [place], [place] [address] Urobilinogen,Ur 0.2 EU/dL Normal 0.0-1.0 [facility] Comment on above: Performed By: #### L URIN #### [facility] [address] [place], [place] [address] WBC LM.HPF #/area (Urine sed) 0-2 Normal 0-5 [facility] Comment on above: Performed By: #### L URIN #### [facility] [address] [place], [place] [address] LUMBOSACRAL SPINE 2 OR 3 VIE WSon 02-17-2018 LUMBOSACRAL SPINE 2 OR 3 VIEWS Performed at [facility] APPROVED BY: Gagan Cuba MD EXAMINATION: LUMBAR [...] Mild degenerative changes. Decreased bone density. Normal [facility] Vital Signs Date Time Vital Sign Value Performing Clinician Facility 06-09-2023 22:00-0400 Respiratory rate 18 /min [facility] 06-09-2023 20:00-0400 Body height 160.02 cm [facility] 06-09-2023 20:00-0400 Body mass index (BMI) [Ratio] 28.2 kg/m2 [facility] 06-09-2023 20:00-0400 Body temperature 98.3 [degF] [facility] 06-09-2023 20:00-0400 Body weight 72.3 kg [facility] 06-09-2023 20:00-0400 Diastolic blood pressure 75 mm[Hg] [facility] 06-09-2023 20:00-0400 Heart rate 91 /min [facility] 06-09-2023 20:00-0400 SaO2% (BldA) [Mass fraction] 95 % [facility] 06-09-2023 20:00-0400 Systolic blood pressure 145 mm[Hg] [facility] 08-13-2022 12:36-0400 Body height 160.[address] Phani Odom Work Phone: [facility] Work Phone: 08-13-2022 12:36-0400 Body weight 68.[address] Phani Odom Work Phone: [facility] Work Phone: 08-13-2022 12:36-0400 Heart rate 79 /min Dr. Phani Odom Work Phone: [facility] Work Phone: 08-13-2022 12:36-0400 SaO2% (BldA) [Mass fraction] 98 % Dr. Phani Odom Work Phone: [facility] Work Phone: 08-02-2022 13:50-0400 Body mass index (BMI) [Ratio] 27.3 kg/m2 Dr. Phani Odom Work Phone: [facility] Work Phone: 08-02-2022 13:50-0400 Body temperature 96.5 [degF] Dr. Phani Odom Work Phone: [facility] Work Phone: 08-02-2022 13:50-0400 Body weight 69.[address] Phani Odom Work Phone: [facility] Work Phone: 08-02-2022 13:50-0400 Diastolic blood pressure 72 mm[Hg] Dr. Phani Odom Work Phone: [facility] Work Phone: 08-02-2022 13:50-0400 Heart rate 89 /min Dr. Phani Odom Work Phone: [facility] Work Phone: 08-02-2022 13:50-0400 Respiratory rate 16 /min Dr. Phani Odom Work Phone: [facility] Work Phone: 08-02-2022 13:50-0400 SaO2% (BldA) [Mass fraction] 98 % Dr. Phani Odom Work Phone: [facility] Work Phone: 08-02-2022 13:50-0400 Systolic blood pressure 103 mm[Hg] Dr. Phani Odom Work Phone: [facility] Work Phone: 06-30-2022 13:55-0400 Body height 160.[address] Phani Odom Work Phone: [facility] Work Phone: 06-30-2022 13:55-0400 Body mass index (BMI) [Ratio] 27.3 kg/m2 Dr. Phani Odom Work Phone: [facility] Work Phone: 06-30-2022 13:55-0400 Body weight 69.[address] Phani Odom Work Phone: [facility] Work Phone: 06-30-2022 13:55-0400 Diastolic blood pressure 68 mm[Hg] Dr. Phani Odom Work Phone: [facility] Work Phone: 06-30-2022 13:55-0400 Heart rate 61 /min Dr. Phani Odom Work Phone: [facility] Work Phone: 06-30-2022 13:55-0400 Respiratory rate 16 /min Dr. Phani Odom Work Phone: [facility] Work Phone: 06-30-2022 13:55-0400 Systolic blood pressure 109 mm[Hg] Dr. Phani Odom Work Phone: [facility] Work Phone: 06-16-2022 09:02-0400 Diastolic blood pressure 87 mm[Hg] Dr. Phani Odom Work Phone: [facility] Work Phone: 06-16-2022 09:02-0400 Heart rate 76 /min Dr. Phani Odom Work Phone: [facility] Work Phone: 06-16-2022 09:02-0400 Systolic blood pressure 134 mm[Hg] Dr. Phani Odom Work Phone: [facility] Work Phone: 06-16-2022 08:58-0400 Body temperature 98.1 [degF] Dr. Phani Odom Work Phone: [facility] Work Phone: 06-16-2022 08:58-0400 Respiratory rate 18 /min Dr. Phani Odom Work Phone: [facility] Work Phone: 06-16-2022 08:58-0400 SaO2% (BldA) [Mass fraction] 100 % Dr. Phani Odom Work Phone: [facility] Work Phone: 06-16-2022 05:51-0400 Body weight 72.[address] Phani Odom Work Phone: [facility] Work Phone: 06-14-2022 17:45-0400 Body temperature 97.8 [degF] Dr. Phani Odom Work Phone: [facility] Work Phone: 06-14-2022 17:45-0400 Diastolic blood pressure 81 mm[Hg] Dr. Phani Odom Work Phone: [facility] Work Phone: 06-14-2022 17:45-0400 Heart rate 78 /min Dr. Phani Odom Work Phone: [facility] Work Phone: 06-14-2022 17:45-0400 Respiratory rate 16 /min Dr. Phani Odom Work Phone: [facility] Work Phone: 06-14-2022 17:45-0400 SaO2% (BldA) [Mass fraction] 96 % Dr. Phani Odom Work Phone: [facility] Work Phone: 06-14-2022 17:45-0400 Systolic blood pressure 133 mm[Hg] Dr. Phani Odom Work Phone: [facility] Work Phone: 06-14-2022 17:18-0400 Body height 160.[address] Phani Odom Work Phone: [facility] Work Phone: 06-14-2022 17:18-0400 Body mass index (BMI) [Ratio] 28.9 kg/m2 Dr. Phani Odom Work Phone: [facility] Work Phone: 06-14-2022 13:27-0400 Body height 160.[address] Phani Odom Work Phone: [facility] Work Phone: 06-14-2022 13:27-0400 Body mass index (BMI) [Ratio] 29.2 kg/m2 Dr. Phani Odom Work Phone: [facility] Work Phone: 06-14-2022 13:27-0400 Body weight 74.[address] Phani Odom Work Phone: [facility] Work Phone: 06-11-2022 12:53-0400 Body temperature 97.7 [degF] Dr. Phani Odom Work Phone: [facility] Work Phone: 06-11-2022 12:53-0400 Diastolic blood pressure 74 mm[Hg] Dr. Phani Odom Work Phone: [facility] Work Phone: 06-11-2022 12:53-0400 Heart rate 85 /min Dr. Phani Odom Work Phone: [facility] Work Phone: 06-11-2022 12:53-0400 Respiratory rate 18 /min Dr. Phani Odom Work Phone: [facility] Work Phone: 06-11-2022 12:53-0400 SaO2% (BldA) [Mass fraction] 100 % Dr. Phani Odom Work Phone: [facility] Work Phone: 06-11-2022 12:53-0400 Systolic blood pressure 125 mm[Hg] Dr. Phani Odom Work Phone: [facility] Work Phone: 06-11-2022 12:05-0400 Inhaled oxygen flow rate 2 L/min Dr. Phani Odom Work Phone: [facility] Work Phone: 06-11-2022 05:11-0400 Body height 160.[address] Phani Odom Work Phone: [facility] Work Phone: 06-11-2022 05:11-0400 Body mass index (BMI) [Ratio] 29 kg/m2 Dr. Phani Odom Work Phone: [facility] Work Phone: 06-11-2022 05:11-0400 Body weight 74.[address] Phani Odom Work Phone: [facility] Work Phone: 05-18-2022 08:08-0400 Body mass index (BMI) [Ratio] 28.8 kg/m2 Dr. Phani Odom Work Phone: [facility] Work Phone: 05-18-2022 08:08-0400 Body temperature 97.3 [degF] Dr. Phani Odom Work Phone: [facility] Work Phone: 05-18-2022 08:08-0400 Body weight 76.[address] Phani Odom Work Phone: [facility] Work Phone: 05-18-2022 08:08-0400 Diastolic blood pressure 52 mm[Hg] Dr. Phani Odom Work Phone: [facility] Work Phone: 05-18-2022 08:08-0400 Heart rate 85 /min Dr. Phani Odom Work Phone: [facility] Work Phone: 05-18-2022 08:08-0400 Respiratory rate 16 /min Dr. Phani Odom Work Phone: [facility] Work Phone: 05-18-2022 08:08-0400 SaO2% (BldA) [Mass fraction] 99 % Dr. Phani Odom Work Phone: [facility] Work Phone: 05-18-2022 08:08-0400 Systolic blood pressure 108 mm[Hg] Dr. Phani Odom Work Phone: [facility] Work Phone: 04-07-2022 07:42-0400 Body mass index (BMI) [Ratio] 28.6 kg/m2 Dr. Phani Odom Work Phone: [facility] Work Phone: 04-07-2022 07:42-0400 Body temperature 96.8 [degF] Dr. Phani Odom Work Phone: [facility] Work Phone: 04-07-2022 07:42-0400 Body weight 75.[address] Phani Odom Work Phone: [facility] Work Phone: 04-07-2022 07:42-0400 Diastolic blood pressure 74 mm[Hg] Dr. Phani Odom Work Phone: [facility] Work Phone: 04-07-2022 07:42-0400 Heart rate 89 /min Dr. Phani Odom Work Phone: [facility] Work Phone: 04-07-2022 07:42-0400 Respiratory rate 18 /min Dr. Phani Odom Work Phone: [facility] Work Phone: 04-07-2022 07:42-0400 SaO2% (BldA) [Mass fraction] 99 % Dr. Phani Odom Work Phone: [facility] Work Phone: 04-07-2022 07:42-0400 Systolic blood pressure 110 mm[Hg] Dr. Phani Odom Work Phone: [facility] Work Phone: 03-15-2022 14:40-0400 Body mass index (BMI) [Ratio] 28.5 kg/m2 Dr. Phani Odom Work Phone: [facility] Work Phone: 03-15-2022 14:40-0400 Body temperature 97.9 [degF] Dr. Phani Odom Work Phone: [facility] Work Phone: 03-15-2022 14:40-0400 Body weight 75.[address] Phani Odom Work Phone: [facility] Work Phone: 03-15-2022 14:40-0400 Diastolic blood pressure 73 mm[Hg] Dr. Phani Odom Work Phone: [facility] Work Phone: 03-15-2022 14:40-0400 Heart rate 96 /min Dr. Phani Odom Work Phone: [facility] Work Phone: 03-15-2022 14:40-0400 Respiratory rate 16 /min Dr. Phani Odom Work Phone: [facility] Work Phone: 03-15-2022 14:40-0400 SaO2% (BldA) [Mass fraction] 99 % Dr. Phani Odom Work Phone: [facility] Work Phone: 03-15-2022 14:40-0400 Systolic blood pressure 105 mm[Hg] Dr. Phani Odom Work Phone: [facility] Work Phone: 12-25-2021 13:17-0500 Body height 162.[address] Phani Odom Work Phone: [facility] Work Phone: 12-25-2021 13:17-0500 Body weight 75.[address] Phani Odom Work Phone: [facility] Work Phone: 12-25-2021 13:17-0500 Diastolic blood pressure 80 mm[Hg] Dr. Phani Odom Work Phone: [facility] Work Phone: 12-25-2021 13:17-0500 Heart rate 84 /min Dr. Phani Odom Work Phone: [facility] Work Phone: 12-25-2021 13:17-0500 Respiratory rate 18 /min Dr. Phani Odom Work Phone: [facility] Work Phone: 12-25-2021 13:17-0500 Systolic blood pressure 122 mm[Hg] Dr. Phani Odom Work Phone: [facility] Work Phone: 11-16-2021 13:04-0500 Body temperature 97.7 [degF] Dr. Phani Odom Work Phone: [facility] Work Phone: 11-16-2021 13:04-0500 Body weight 72.[address] Phani Odom Work Phone: [facility] Work Phone: 11-16-2021 13:04-0500 Diastolic blood pressure 86 mm[Hg] Dr. Phani Odom Work Phone: [facility] Work Phone: 11-16-2021 13:04-0500 Heart rate 97 /min Dr. Phani Odom Work Phone: [facility] Work Phone: 11-16-2021 13:04-0500 Respiratory rate 14 /min Dr. Phani Odom Work Phone: [facility] Work Phone: 11-16-2021 13:04-0500 SaO2% (BldA) [Mass fraction] 100 % Dr. Phani Odom Work Phone: [facility] Work Phone: 11-16-2021 13:04-0500 Systolic blood pressure 117 mm[Hg] Dr. Phani Odom Work Phone: [facility] Work Phone: 04-15-2021 10:41-0400 Body mass index (BMI) [Ratio] 24.7 kg/m2 Dr. Phani Odom Work Phone: [facility] Work Phone: 02-23-2021 11:17-0400 Body mass index (BMI) [Ratio] 24.3 kg/m2 Dr. Phani Odom Work Phone: [facility] Work Phone: 01-31-2021 08:53-0400 Body Temperature 97.2 [...] Start: 06-25-2025 End: 06-25-2025 ambulatory Radha Odom Facility:[facility] Start: 06-21-2025 End: 06-21-2025 ambulatory Radha Odom Facility:[facility] Start: 06-13-20[facility] Start: 06-13-2025 End: 06-14-2025 ambulatory Jevonminerva Bustillo Facility:[facility] Start: 06-12-2025 End: 06-12-2025 ambulatory Radha Odom Facility:[facility] Start: 02-04-2025 ambulatory Radha Odom Faci lity:[facility] Start: 01-31-2025 ambulatory Radha Odom Faci lity:[facility] Start: 01-01-2025 ambulatory Radha Odom Faci lity:[facility] Start: 12-28-2024 ambulatory Radha Odom Faci lity:[facility] Start: 12-28-2024 End: 12-28-2024 ambulatory Bobjos Escuderouvaldo Facility:[facility] Start: 12-26-2024 End: 12-26-2024 ambulatory Bobjos Odom Facility:[facility] Start: 12-06-2024 End: 12-06-2024 ambulatory Bobjos Escuderouvaldo Facility:[facility] Start: 12-03-2024 End: 12-04-2024 ambulatory Nivia Moore Facility:[facility] Start: 11-30-2024 End: 11-30-2024 ambulatory Honorio Rhodes Facility:[facility] Start: 11-28-2024 End: 11-28-2024 ambulatory Honorio Carmelo Facility:[facility] Start: 11-14-2024 End: 11-14-2024 ambulatory Radha Odom Facility:[facility] Start: 11-14-2024 End: 11-14-2024 ambulatory Nivia Oscar Facility:[facility] Start: 10-17-2024 ambulatory Larry Burnham [facility] Start: 10-16-2024 ambulatory Veronique Mendoza Kenney Facility :[facility] Start: 10-16-2024 End: 10-18-2024 Evaluation and management of inpatient Jevon Bustillo Facility:[facility] Start: 08-22-2024 End: 08-22-2024 ambulatory Cristina Giraldo Facility:[facility] Start: 08-21-2024 ambulatory Moisesrito Escuderouvaldo Faci lity:[facility] Start: 06-09-2023 End: 06-09-2023 Emergency department patient visit [facility] Work Phone: Start: 06-08-2023 End: 06-08-2023 ambulatory [facility] Work Phone: Start: 06-08-2023 End: 06-08-2023 Patient encounter procedure [facility] Work Phone: Start: 01-24-2023 End: 01-24-2023 ambulatory [facility] Work Phone: Start: 01-24-2023 End: 01-24-2023 Patient encounter procedure [facility] Start: 01-23-2023 ambulatory [facility] Comment on above: Nurse Navigation Start: 08-16-2022 Non-patient / Non-visit Dr. Phani Odom Work Phone: [facility] Start: 08-13-2022 End: 08-13-[address] Phani Odom Work Phone: [facility] Work Phone: Start: 08-13-2022 End: 08-13-[address] Phani Odom Work Phone: [facility]/Neurology Start: 08-11-2022 Non-patient / Non-visit Dr. Phani Odom Work Phone: [facility] Start: 08-10-2022 End: 08-10-[address] Phani Odom Work Phone: [facility] Work Phone: Start: 08-10-2022 End: 08-10-[address] Phani Odom Work Phone: [facility] Start: 08-02-2022 End: 08-02-[address] Phani Odom Work Phone: [facility] Start: 07-28-2022 End: 07-28-[address] Phani Odom Work Phone: [facility] Work Phone: Start: 07-28-2022 End: 07-28-[address] Phani Odom Work Phone: [facility] Start: 06-30-2022 End: 06-30-[address] Phani Odom Work Phone: [facility] Start: 06-16-2022 Non-patient / Non-visit Dr. Phani Odom Work Phone: [facility] Start: 06-15-2022 Non-patient / Non-visit Dr. Phani Odom Work Phone: [facility] Start: 06-15-2022 End: 06-16-2022 Evaluation and management of inpatient Dr. Phani Odom Work Phone: [facility] Start: 06-15-2022 End: 06-16-2022 Non-patient / Non-visit Dr. Phani Odom Work Phone: [facility] Start: 06-14-2022 Evaluation and management of inpatient Dr. Phani Odom Work Phone: [facility] Start: 06-14-2022 Non-patient / Non-visit Dr. Phani Odom Work Phone: [facility] Start: 06-14-2022 Non-patient / Non-visit Dr. Phani Odom Work Phone: [facility] Start: 06-14-2022 Non-patient / Non-visit Dr. Phani Odom Work Phone: [facility] Start: 06-11-2022 Non-patient / Non-visit Dr. Phani Odom Work Phone: [facility] Start: 06-11-2022 Non-patient / Non-visit Dr. Phani Odom Work Phone: [facility] Start: 06-11-2022 Non-patient / Non-visit Dr. Phani Odom Work Phone: [facility] Start: 06-10-2022 Non-patient / Non-visit Dr. Phani Odom Work Phone: [facility] Start: 06-10-2022 Non-patient / Non-visit Dr. Phani Odom Work Phone: [facility] Start: 06-09-2022 End: 06-11-2022 Evaluation and management of inpatient Dr. Phani Odom Work Phone: [facility]Pro[facility] Start: 05-18-2022 End: 05-18-[address] [facility] Start: 05-11-2022 End: 05-11-[address] Phani Odom Work Phone: [facility]Out[facility] Start: 04-07-2022 End: 04-07-[address] Ph[facility] Start: 03-15-2022 End: 03-15-[address] Phani Odom Work Phone: [facility] Start: 03-11-2022 End: 03-11-[address] Phani Odom Work Phone: [facility] Start: 01-27-2022 Non-patient / Non-visit Dr. Phani Odom Work Phone: [facility] Start: 01-27-2022 End: 01-27-[address] Phani Odom Work Phone: [facility]Cardiovascular Services Start: 12-25-2021 End: 12-25-[address] Phani Odom Work Phone: [facility] Start: 11-16-2021 End: 11-16-[address] Phani Odom Work Phone: [facility] Start: 11-02-[address] Phani Odom Work Phone: [facility] Start: 03-10-[address] Phani Odom Work Phone: [facility] Start: 01-28-2021 End: 01-31-2021 Evaluation and management [...] 01-05-2019 Emergency department patient visit RADHA MARTINEZ [facility] Start: 09-25-2018 End: 09-25-2018 [facility] Start: 05-05-2017 Ambulatory PHY WO ID REFERRING [...] 05-11-2022 Dual energy X-ray absorptiometry Dr. Phani Odmo Work Phone: Start: 03-11-2022 CT of chest [...] 01-26-2021 Radiologic exam chest 2 views [facility] [employer] Work Phone: Start: 01-26-2021 Blood count complete auto&auto difrntl wbc [employer] [employer] Work Phone: Start: 01-26-2021 Blood typing serologic abo [employer] Work Phone: Start: 01-26-2021 Comprehensive metabolic panel [employer] Work Phone: Start: 01-26-2021 Prothrombin time [employer] [employer] Work Phone: Start: 01-26-2021 COVID-19 [employer] Work Phone: Start: 01-26-2021 Urnls dip stick/tablet rgnt auto w/o microscopy [employer] Work Phone: Start: 01-26-2021 Ecg routine ecg w/least 12 lds w/i&r [employer] Work Phone: Start: 05-07-2004 History of coronary artery bypass grafting Aortocoronary bypass status Dr. Phani Odom Work Phone: Viral antigen assay Dr. Hallie Odom Work Phone: Plan of Treatment Date Care Activity Detail Author Start: 07-08-2023 Influenza vaccination Influenza Vacc ine (#1) [facility] Start: 06-16-2022 Patient discharge [facility] Work Phone: Start: 06-15-2022 Patient referral [facility] Work Phone: Start: 06-15-2022 Admission procedure [facility] Work Phone: Start: 06-15-2022 End: 06-15-2022 [facility] Work Phone: Start: 06-15-2022 Cardiac monitoring [facility] Work Phone: Start: 06-15-2022 Cardiac rehabilitati on - phase 1 [facility] Work Phone: Start: 06-15-2022 Cardiac rehabilitati on - phase 2 [facility] Work Phone: Start: 06-15-2022 Notification of physician [facility] Work Phone: Start: 06-15-2022 Patient discharge [facility] Work Phone: Start: 06-15-2022 Systemic arterial pr essure monitoring [facility] Work Phone: Start: 06-15-2022 Taking patient vital signs [facility] Work Phone: Start: 06-15-2022 Vascular disease ris k assessment [facility] Work Phone: Start: 06-15-2022 Vital signs measurements [facility] Work Phone: Start: 06-14-2022 Catheterization of vein [facility] Work Phone: Start: 06-14-2022 Medication not administered [facility] Work Phone: Start: 06-14-2022 Preoperative care [facility] Work Phone: Start: 06-14-2022 End: 06-14-2022 [facility] Work Phone: Start: 06-14-2022 Application of intermittent pneumatic compression device [facility] Work Phone: Start: 06-14-2022 Assessment of risk o f venous thromboembolism [facility] Work Phone: Start: 06-14-2022 Consultation [facility] Work Phone: Start: 06-14-2022 Documentation procedure [facility] Work Phone: Start: 06-14-2022 Incentive spirometry [facility] Work Phone: Start: 06-14-2022 Inhalation therapy procedure [facility] Work Phone: Start: 06-14-2022 Insertion of cathete r into peripheral vein [facility] Work Phone: Start: 06-14-2022 Introduction of urin daron catheter [facility] Work Phone: Start: 06-14-2022 Measuring intake and output [facility] Work Phone: Start: 06-14-2022 Oxygen therapy [facility] Work Phone: Start: 06-14-2022 Providing care accor ding to standard [facility] Work Phone: Start: 06-14-2022 Provision of activit y privileges [facility] Work Phone: Start: 06-14-2022 Referral to unemployment examiner [facility] Work Phone: Start: 06-14-2022 Referral to service [facility] Work Phone: Start: 06-14-2022 Tobacco use cessatio n education [facility] Work Phone: Start: 06-14-2022 Following clinical p athway protocol [facility] Work Phone: Start: 06-14-2022 Admission procedure [facility] Work Phone: Start: 06-14-2022 Verification routine [facility] Work Phone: Start: 06-14-2022 Patient referral [facility] Work Phone: Start: 06-14-2022 [facility] Work Phone: Start: 06-11-2022 Patient discharge [facility] Work Phone: Start: 06-10-2022 Referral to service [facility] Work Phone: Start: 06-10-2022 Referral to occupati onal therapist [facility] Work Phone: Start: 06-10-2022 Catheterization of vein [facility] Work Phone: Start: 06-10-2022 Notification of physician [facility] Work Phone: Start: 06-10-2022 Inhalation therapy procedure [facility] Work Phone: Start: 06-09-2022 Application of intermittent pneumatic compression device [facility] Work Phone: Start: 06-09-2022 Administration of bl ood product [facility] Work Phone: Start: 06-09-2022 Ambulation without limitation [facility] Work Phone: Start: 06-09-2022 Assessment of risk o f venous thromboembolism [facility] Work Phone: Start: 06-09-2022 Catheterization of vein [facility] Work Phone: Start: 06-09-2022 Insertion of cathete r into peripheral vein [facility] Work Phone: Start: 06-09-2022 Measuring intake and output [facility] Work Phone: Start: 06-09-2022 Oxygen therapy [facility] Work Phone: Start: 06-09-2022 Providing care accor ding to standard [facility] Work Phone: Start: 06-09-2022 Referral to unemployment examiner [facility] Work Phone: Start: 06-09-2022 Referral to gastroenterology service [facility] Work Phone: Start: 06-09-2022 [facility] Work Phone: Start: 06-09-2022 Following clinical p athway protocol [facility] Work Phone: Start: 06-09-2022 Admission procedure [facility] Work Phone: Start: 01-31-2022 Creatinine measurement Creatinine mo nitoring [facility] Work Phone: Start: 01-31-2022 Potassium monitoring Potassium monit [facility] Work Phone: Start: 01-26-2022 Creatinine measurement Creatinine mo [facility] Work Phone: Start: 01-26-2022 Potassium monitoring Potassium monit oring [facility] Work Phone: Start: 02-13-2021 COVID-19 Vaccine (2 - Moderna 2-dose series) COVID-19 Vaccine (2 - Moderna 2-dose series) [facility] Work Phone: Start: 01-28-2021 Hospital Encounter 01/28/2021 Hospital Encounter General Surgery Victor M Darby MD [address] [place] [address] [phone] [facility] General Surgery Start: 12-31-2020 Annual Wellness Visi [...] 2) Zoste r Vaccines (1 of 2) [facility] Start: 1997 Diabetes screen Diabetes screen [facility] Work Phone: Start: 1997 Lipid panel Lipid screen [facility] Work Phone: Start: 1997 Screening for malign ant neoplasm of breast Mammogram [facility] Start: 1978 Screening for malign ant neoplasm of cervix Cervical cancer screen [facility] Work Phone: Start: 1976 DTaP/Tdap/Td vaccine (1 - Tdap) DTaP/Tdap/Td vaccine (1 - Tdap) [facility] Work Phone: Start: 1976 DTaP/Tdap/Td Vaccine s (1 - Tdap) DTaP/Tdap/Td Vaccines (1 - Tdap) [facility] Start: 1975 Diabetes mellitus screening Diabetes Screening [facility] Start: 1975 Hepatitis C screening Hepatitis C Sc reening [facility] Start: 1972 HIV screening [facility] screen [facility] Work Phone: Start: 1969 Depression Screening Depression Scre ening [facility] Start: 1963 Pneumococcal Vaccine : 65+ Years (1 - PCV) Pneumococcal Vaccine: 65+ Years (1 - PCV) [facility] Start: 1957 COVID-19 Vaccine (#1) COVID-19 Vacci ne (#1) [facility] Start: 1957 Hepatitis C screening Hepatitis C sc reen [facility] Work Phone: Start: 1957 Lipid panel Lipid Panel [facility] Start: 1957 Screening for malign ant neoplasm of colon [facility] Start: 1957 Screening for osteoporosis Bone Dens ity Scan [facility] Acapella Acapella Respira tory Care Routine Daily until discontinued starting 01/28/2021 [facility] Work Phone: Comment on above: Daily until disconti nued starting 01/28/2021 Basic Metabolic Pane l w/ Reflex to MG Basic Metabolic Panel w/ Reflex to MG Lab Routine Daily until discontinued starting 01/29/2021, 3 completed [facility] Work Phone: Comment on above: Daily until disconti nued starting 01/29/2021, 3 completed CBC auto differential CBC auto d ifferential Lab Routine Daily until discontinued starting 01/29/2021, 3 completed [facility] Work Phone: Comment on above: Daily until disconti nued starting 01/29/2021, [address] Chest WO contrast [facility] Work Phone: EKG 12 lead EKG 12 lead ECG Routine Mass of upper lobe of right lung Pre-op testing 01/26/2021 2:47 PM EDT [facility] Work Phone: Exercise tolerance test [facility] Work Phone: Measurement of respi ratory function [facility] Work Phone: Nebulizer therapy HHN Treatment Respiratory Care Routine 4X Daily until discontinued starting 01/28/2021 [facility] Work Phone: Comment on above: 4X Daily until disco ntinued starting 01/28/2021 Oxygen therapy [[facility] Data Set] Initiate Oxygen Therapy Protocol Respiratory Care Routine Daily until discontinued starting 01/28/2021 [facility] Work Phone: Comment on above: Daily until disconti nued starting 01/28/2021 Patient Education ED Abdominal P ain Unkn Cause Fem [facility] Work Phone: Patient referral [facility] Work Phone: End: 01-28-2021 Surgical Pathology Surgical [...] virus vaccine Dr. Phani Odom Work Phone: [facility] 08-07-[address] Phani Odom Work Phone: [facility] 01-05-[address] Rita Odom Work Phone: [facility] Work Phone: 01-05-2011 pneumococcal vaccine , unspecified formulation [facility] Payers Date Payer Category Payer Self-pay [id number] 2020 Medicare [id number]. [id number] 2015 Unknown [id number] Medicare [id number] 89e [id number] Unknown [id number] 2.16.8 40.1.680127.3.579.2.462 Unknown [id number] 2.16.8 40.1.746907.3.579.2.462 Unknown [id number] 2.16.8 40.1.437777.3.579.2.462 Unknown [id number] 2.16.8 40.1.287170.3.579.2.462 Unknown [id number] 2.16.8 40.1.457074.3.579.2.462 Unknown [id number] 2.16.8 40.1.770337.3.579.2.462 Unknown [id number] 2.16.8 40.1.074557.3.579.2.462 Unknown [id number] 2.16.8 40.1.441149.3.579.2.462 Unknown [id number] 2.16.8 40.1.280733.3.579.2.462 Unknown [id number] 2.16.8 40.1.816683.3.579.2.462 Unknown [id number] 2.16.8 40.1.732165.3.579.2.462 Unknown [id number] 2.16.8 40.1.713919.3.579.2.462 Unknown [id number] 2.16.8 40.1.042740.3.579.2.462 Unknown [id number] 2.16.8 40.1.263245.3.579.2.462 Unknown [id number] 2.16.8 40.1.571560.3.579.2.462 Unknown [id number] 2.16.8 40.1.834695.3.579.2.462 Unknown [id number] 2.16.8 40.1.404971.3.579.2.462 Unknown [id number] 2.16.8 40.1.887318.3.579.2.462 Unknown [id number] 2.16.8 40.1.906305.3.579.2.462 Unknown [id number] 2.16.8 40.1.420711.3.579.2.462 Unknown [id number] 2.16.8 40.1.441246.3.579.2.462 Unknown [id number] 2.16.8 40.1.035947.3.579.2.462 Unknown [id number] 2.16.8 40.1.463409.3.579.2.462 Unknown [id number] 2.16.8 40.1.251148.3.579.2.462 Unknown [id number] 2.16.8 40.1.263675.3.579.2.462 Unknown [id number] 2.16.8 40.1.177246.3.579.2.462 Unknown [id number] 2.16.8 40.1.676096.3.579.2.462 Unknown [id number] 2.16.8 40.1.584814.3.579.2.462 Social History Date Type Detail Facility Start: 01-26-2021 End: 01-30-2021 Tobacco smoking status TXIS Current every day smoker [facility] Phone: End: 01-31-2021 History of tobacco use Cigarette Smoker [facility] Phone: Start: 01-26-2021 End: 10-26-2022 Cigarettes smoked current (pack per day) - Reported [facility] Phone: Start: 01-26-2021 End: 01-30-2021 Tobacco use and exposure Never used [facility] Phone: Start: 01-26-2021 End: 10-26-2022 Alcohol intake Ex-drinker (finding) [facility] Phone: Start: 01-06-2021 History SDOH Alcohol Frequency 1 [facility] Phone: Start: 1955 Sex Assigned At Not on file [facility] Work Phone: Exposure to SARS-CoV -2 (event) Not sure [facility] Work Phone: Start: 12-25-2021 End: 08-03-2023 Tobacco smoking status NHIS Unknown if ever smoked [facility] Start: 04-15-2019 None [facility] Start: 10-20-2021 Homeless [facility] Start: 07-28-2020 Cigarettes [facility] Start: 1955 Sex Assigned At Female [facility] Tobacco smoking stat us TXIS Ex-smoker [facility] End: 01-31-2021 History of tobacco use Current smoker [facility] Start: 10-26-2022 Tobacco use panel [facility] Medical Equipment Procedure Code Equipment Code [...] 28CM BL ADDER STIM FDA Start: 03-20-2019 ([id number]) Drug-eluting cor onary artery stent, bioabsorbable-polymer- coated ()[id number] FDA Start: 06-15-2022 Femoral vessel s uture implantation set ()[id number] FDA Start: 06-15-2022 LEAD KIT 28CM BL [...] 06-16-2022 Functional status Activity Ability Indepe ndent [facility] Work Phone: 06-15-2022 Functional status Ambulates [facility] Work Phone: 06-11-2022 Functional status Ambulates [facility] Work Phone: Mental Status Date Assessment Result Facility 06-16-2022 Cognitive function Voice/Name [facility] Work Phone: 06-14-2022 Cognitive function Voice/Name [facility] Work Phone: 06-11-2022 Cognitive function Voice/Name [facility] Work Phone: 06-11-2022 Cognitive function [facility] Work [facility]: Clinical Notes 05-07-2004 to 06-14-2025 Shawnee Corona RN - 01/23/2023 3:58 PM EDT Note Date & Type Note Facility 06-14-2025 Note [facility] Medical Records Department [address] [place] [address] Discharge Summary 06/14/25 1801 MR#: [id number] Acct: [id number] Name: HALEIGH ALMEIDA Rep #: [id number] : 1955 70 From: Diego Nichole DO PCP: Dr. Radha Odom MD Status:DIS JAMARCUS Location: [place] [address] Providers Date of Admission: 06/13/25 Date of [...] was seen in the emergency room at [facility] with a chief plaint of chest pain. [...] % (Auto) 60.7, Lymph % (Auto) 27.0, [place] % (Auto) 9.8, Eos % (Auto) 1.7, [...] Full weight bearing (more content not included)... [facility] 12-28-2024 Note [facility] Medical Records Department [address] [place] [address] History Physical Exam 12/28/24 0653 MR#: [id number] Acct: [id number] Name: HALEIGH ALMEIDA Rep #: [id number] : 1955 69 From: Tannerkaelyn Beasley PCP: Dr. Radha Odom MD Status:[facility] Location: [place] [address] HPI - General General Date of Admission: [...] - PLAVIX discontinued this admission - h/o ME, CAD ----- was taking ALEVE 2 a [...] denies any falls in the past year [facility] Medical History Wears glasses Loose, teeth Cancer Depression Bladder disease History of steroid therapy Arthritis High cholesterol Restless legs History of GI bleed On home oxygen therapy Smoker Sleep apnea History of echocardiogram History of stress test Cardiology follow-up encounter GERD (gastroesophageal reflux disease) Lung cancer Anxiety Atherosclerotic heart disease of algaaciq coronary artery with unstable angina pectoris Congestive heart failure History of COPD Anemia Angina of effort Myocardial infarction, silent Adenocarcinoma of lung, stage 1 Lung cancer Melanoma Pure hypercholesterolemia Worsening angina Chest pain, unspecified HOWARD (obstructive sleep apnea) Osteoarthritis DDD (degenerative disc disease) Premature ventricular contraction Pericardial effusion Atherosclerotic heart disease of algaaciq coronary artery without angina pectoris Nonrheumatic mitral [...] Allergy/AdvReac Type Severi (more content not included)... [facility] 10-18-2024 Note [facility] Medical Records Department [address] [place] [address] Discharge Summary 10/18/24 1300 MR#: [id number] Acct: [id number] Name: WILLIEHALEIGH FISHER Janie Rep #: [id number] : 1955 69 From: Jevon Bustillo DO PCP: Dr. Radha Odom MD Status:ADM IN Location: [place] [id number] Providers Date of Admission: 10/16/24 Primary Care [...] 90.0 H, Lymph % (Auto) 7.0 L, [place] % (Auto) 1.7, Eos % (Auto) 0.0, [...] Ezetimibe + Simv (more content not included)... [facility] 01-23-2023 History of Present illness Narrative Chart reviewed for surveillance purposes by Thoracic/Head & Neck Terrazzo Tile Maker. Patient undergoing surveillance at [facility] documented in this encounter [facility] 05-07-2004 Evaluation note Diagnosis Onset Date Adenocarcinoma of lung, stage 1 acute Shortness of breath acute Aortocoronary bypass status May, chronic Atherosclerotic heart diseas e of algaaciq coronary artery without angina pectoris chronic Essential hypertension chron ic Nonrheumatic mitral (valve) prolapse chronic Premature ventricular contraction chronic Presence of stent in coronar y artery chronic Pure hypercholesterolemia [facility] Work Phone: Evaluation note* Diagnosis Onset [...] stent in coronary artery chronic Pure hypercholesterolemia [facility] Work Phone: Evaluation note* Diagnosis Onset [...] pain acute GARRISON (dyspnea on exertion) ac [place] Non-ST elevation (NSTEMI) myocardial infarction acute Shortness of breath acute [facility] Work Phone: Evaluation note* Diagnosis Onset [...] pain acute GARRISON (dyspnea on exertion) ac [place] GI bleed acute MVP (mitral valve prolapse) acute Non-ST elevation (NSTEMI) myocardial infarction acute Primary lung adenocarcinoma acute Shortness of breath acute Worsening angina acute Aortocoronary bypass status May, chronic COPD (chronic obstructive pulmonary disease) chronic Essential hypertension chron ic Presence of stent in coronary artery June, chronic Pure hypercholesterolemia ch ronic [facility] Work Phone: Evaluation note* Diagnosis Onset [...] pain acute GARRISON (dyspnea on exertion) ac [place] GI bleed acute MVP (mitral valve prolapse) acute Non-ST elevation (NSTEMI) myocardial infarction acute Primary lung adenocarcinoma acute Shortness of breath acute Worsening angina acute Essential hypertension chron ic Atherosclerotic heart diseas e of algaaciq coronary artery without angina pectoris chronic Essential hypertension chron ic Nonrheumatic mitral (valve) prolapse chronic Premature ventricular contraction chronic [facility] Work Phone: Evaluation note* Diagnosis Onset Date Resolution Status Anemia acute CAD (coronary artery disease) acute Exertional shortness of breath acute Microcytic anemia acute MVP (mitral valve prolapse) acute Essential hypertension chron ic Premature ventricular contraction chronic Abnormal cardiac enzyme level resolved Anemia acute CAD (coronary artery disease) acute Chest pain acute GARRISON (dyspnea on exertion) ac [place] GI bleed acute MVP (mitral valve prolapse) acute Non-ST elevation (NSTEMI) myocardial infarction acute Primary lung adenocarcinoma acute Shortness of breath acute Worsening angina acute Essential hypertension chron ic Atherosclerotic heart diseas e of algaaciq coronary artery without angina pectoris chronic Essential hypertension chron ic Nonrheumatic mitral (valve) prolapse chronic Premature ventricular contraction chronic Primary lung adenocarcinoma acute [facility] Work Phone: Evaluation noteNo assessment information available [facility] Work Phone: Summary Purpose Family History No [...] Will Yes October 20 9:51am Power of Refueling Ramp Supervisor Yes October 20, 2021 9:51am Advance Directive Response Recorded Date/ Time Name of Medical Power of Refueling Ramp Supervisor Eriberto Almeida June 09, 2022 5:58pm Advance Directives Yes October 9:51am Living Will Yes June 09, 2022 5:58pm Power of Refueling Ramp Supervisor Yes June 09 5:58pm Advance Directive Response Recorded Date/ Time Name of Medical Power of Refueling Ramp Supervisor Eriberto Almeida June 09, 2022 5:58pm Name of Medical Power of Refueling Ramp Supervisor EULALIO FLOYD June 14, 2022 5:20pm Advance Directives Yes October 9:51am Living Will Yes June 14, 2022 5:20pm Power of Refueling Ramp Supervisor Yes June 14 5:20pm Advance Directive Response Recorded Date/ Time Advance Directives Yes October 9:51am Living Will Yes June 14, 2022 5:20pm Power of Refueling Ramp Supervisor Yes June 14 5:20pm Advance Directive Response Recorded Date/ Time Advance Directives Yes October 9:51am Living Will Yes June 09, 2023 8:08pm Power of Refueling Ramp Supervisor Yes June 09 8:08pm Name of Medical Power of Refueling Ramp Supervisor ERIBERTO ALMEIDA June 09, 2023 8:08pm Procedure Findings Note Operative Note (Enc) (GENSWS ) Progress Notes: Angel Katz MD 10/27/2019 1:44 PM Signed OPERATIVE NOTATION FOR [facility] SURGICAL PROCEDURE. October 18, 2019 Haleigh Masdarrel 1955 [id number] female PROCEDURE: EGD WITH BIOPSY - [id number] and COLONOSCOPY - [id number] SURGEON: Marysol Katz M.D. FACS RUG INSPECTOR HELPER: None DEPT: WQ PROVIDER: [id number] Katz MD POS: [id number] DIAGNOSIS: (R19.5) Heme positive stool (primary encounter diagnosis) (R11.0) Nausea (Z80.0) Family history of colon cancer ASA CLASS: 3 - Severe FINDINGS: COMPLICATIONS: None PMHx - PAST MEDICAL HISTORY Diagnosis Date - Adjustment disorder with depressed mood - Chronic airway obstruction, not elsewhere classified - Coronary artery disease - Coronary atherosclerosis of unspecified type of vessel, algaaciq or graft - Dyslipidemia - Esophageal reflux Gastroesophageal reflux - Malignant melanoma of skin of upper cantu (more content not included)... Note Attestation signed by Victor M Darby MD at 02/01/2021 12:35 PM I independently saw and evaluated the patient - including reviewing the labs, imaging studies, and available documentation. I agree with the findings and plan of care as documented by the resident/MAINTENANCE MECHANIC TELEPHONE/CHURN DRILLER/PA, unless otherwise noted. Please do not hesitate to contact me/us if you have any questions or concerns. Victor M Darby MD FACS Discharge Summary Haleigh Almeida : 1955 Age: 65 y.o. ADMIT DATE: 01/28/2021 DISCHARGE DATE: 01/31/2021 DISCHARGING SURGEON: Victor M Darby MD Office Number: [phone] PRIMARY CARE PHYSICIAN: Radha Odom VISIT STATUS: [...] EKG 12 lead Florentin Reynoso APRN - MAINTENANCE MECHANIC TELEPHONE [address] [place] [address] Discharge Instructions * Instructions* Dafne Payton RN - 01/26/2021 PLEASE, DO NOT SMOKE OR USE TOBACCO PRODUCTS ON THE DAY OF YOUR SURGERY. THIS COULD RESULT IN YOUR SURGERY BEING CANCELED. Please bring your [facility] Surgical Information folder on the day [...] Everywhere. * VATS (Video-Assisted Thoracoscopic Surgery): Pre-op (Macedonian) * VATS (Video-Assisted Thoracoscopic Surgery): Post-op (Macedonian) documented in this encounter* Instructions* Rashida Shabazz MD - 01/28/2021 Images from the original note were not included. [facility] Medical Group: Cardiothoracic Surgery [address] [place] [address]. [address] [facility] (T): #[phone] (F): #[phone] After lung surgery, it is common to [...] or dog food bags, or a vacuum seed cleaner operator. If your incision is in the front [...] start to have pain. Shoulder Stretch 1. supervisor backfilling a doorway and place one arm against [...] Ifyou are prescribed oxycodone/acetaminophen (Percocet) or hydrocodone/acetaminophen ([place]/Vicodin) be cautious when taking additional tylenol. No [...] be monitored and followed by the diet process mold technician. GARETH Tirado * Brett Luz - 01/30/2021 11:15 AM EDT Physical Therapy Facility/Department: [facility] Initial Assessment NAME: Haleigh [...] Ambulation Assistance: Independent Transfer Assistance: Independent Active Forestry Workers: Yes Mode of Transportation: Car Cognition Cognition [...] Restraints Initially in place: No AM-PAC Score [facility] Inpatient Mobility Raw Score : 21 (01/30/21 1047) [facility] Inpatient T-Scale Score : 50.25 (01/30/21 1047) [...] mobility aide. * Celia Prado APRN - SCRAP BURNER - 01/30/2021 7:54 AM EDT PAGING: The Acute Pain Service providers are available via [employer]. Please reference [employer] for Pain Management Provider CLERICAL SUPPORT SPECIALIST and direct all questions to the provider listed. Due to the current environment of [place] [address], PPE was worn for the duration of [...] GLUCOSE 123 (H) 01/30/2021 04:17 AM Allergies: Bingham extract, Atorvastatin, Iv dye [iodides], Pravastatin, and [...] APAP 2000 mg 2g 3g PRN Hydromorphone LOCAL [place] TRUCK DRIVER 7.4 mg DC'd Oxycodone 25mg Hydromorphone Exparel [...] Acute Pain Service providers are available via [employer]. Please reference [employer] for Pain Management Provider CLERICAL SUPPORT SPECIALIST and direct all questions to the provider [...] Date 01/30/21 0000 - 01/30/21 2359 Shift [id number] 8459-6736 6606-1391 24 Hour Total INTAKE Shift Total(mL/kg) OUTPUT [...] / Ambulate. PT/OT. - Transfer to telemetry Rsahida Shabazz MD Disclaimers: INFORMED CONSENT: The nature [...] This note may have been dictated using [employer] Practice Edition 2.6 and/or [employer] Voice Recognition Feature. The document was proofread; however, unrecognized voice recognition museum preparator errors may be present. Associated attestation - Victor M Darby MD - 01/30/2021 3:43 PM EDT I independently saw and evaluated the patient - including reviewing the labs, imaging studies, and available documentation. I agree with the findings and plan of care as documented by the resident/MAINTENANCE MECHANIC TELEPHONE/CHURN DRILLER/PA, unless otherwise noted. Please do not hesitate [...] Date 01/29/21 0000 - 01/29/21 2359 Shift [id number] 4812-2928 4960-2466 24 Hour Total INTAKE P.O.(mL/kg/hr) 240 240 [...] Pain control with scheduled Tylenol / Dilaudid LOCAL [place] TRUCK DRIVER - Pain management following. Appreciate recommendations - [...] This note may have been dictated using [employer] Practice Edition 2.6 and/or [employer] Voice Recognition Feature. The document was proofread; however, unrecognized voice recognition museum preparator errors may be present. Associated attestation - Victor M Darby MD - 01/29/2021 12:14 PM EDT I independently saw and evaluated the patient - including reviewing the labs, imaging studies, and available documentation. I agree with the findings and plan of care as documented by the resident/MAINTENANCE MECHANIC TELEPHONE/CHURN DRILLER/PA, unless otherwise noted. Please do not hesitate [...] plan of care as documented by the resident/MAINTENANCE MECHANIC TELEPHONE/CHURN DRILLER/PA, unless otherwise noted. Please do not hesitate to contact me/us if you have any questions or concerns. Victor M Darby MD FACS Discharge Summary Haleigh Almeida : 1955 Age: 65 y.o. ADMIT DATE: 01/28/2021 DISCHARGE DATE: 01/31/2021 DISCHARGING SURGEON: Victor M Darby MD Office Number: [phone] PRIMARY CARE PHYSICIAN: Radha Odom VISIT STATUS: [...] Aortocoronary bypass status Atherosclerotic heart disease of algaaciq coronary artery without angina pectoris Essential hypertension Nonrheumatic mitral (valve) prolapse Premature ventricular contraction Presence of stent in coronary artery Pure hypercholesterolemia Chief Complaint FOLLOWUP CT SCAN 10 MO F/U CAD/ASHD CAD/ASHD Reason for Visit Adenocarcinoma of balwinder rodrigez, stage 1 Shortness of breath Aortocoronary bypass status Atherosclerotic heart disease of algaaciq coronary artery without angina pectoris Essential hypertension [...] angina Essential hypertension Atherosclerotic heart disease of algaaciq coronary artery without angina pectoris Essential hypertension [...] angina Essential hypertension Atherosclerotic heart disease of algaaciq coronary artery without angina pectoris Essential hypertension Nonrheumatic mitral (valve) prolapse Premature ventricular contraction Primary lung adenocarcinoma Chief Complaint LAB AND XRAY EORDER abdominal pain Additional Source Comments INFORMATION SOURCE (unrecogn ized section and content) DATE CREATED AUTHOR 05/03/2018 [employer] DATE CREATED AUTHOR AUTHOR'S ORGANIZ ATION 01/07/2019 [facility] DATE CREATED AUTHOR AUTHOR'S ORGANIZ ATION 01/07/2019 [facility] DATE CREATED AUTHOR AUTHOR'S ORGANIZ ATION 10/30/2019 [facility] DATE CREATED AUTHOR AUTHOR'S ORGANIZ ATION 04/29/2020 [facility] ([place] DATE CREATED AUTHOR AUTHOR'S ORGANIZ ATION 02/04/2021 [facility] DATE CREATED AUTHOR AUTHOR'S ORGANIZ ATION 02/06/2021 [facility] DATE CREATED AUTHOR AUTHOR'S ORGANIZ ATION 01/23/2023 [facility] DATE CREATED AUTHOR AUTHOR'S ORGANIZ ATION 07/02/2025 [facility] Ordered Prescriptions (unrec ognized section and content) [...] Phani Odom MD Primary Care Provider, [facility] Provider Active Team Status: Inactive Member [...] Care Provider, Attending Provider, Referring Provider Active Battery Assembler Dry Cell Relationship Specialty Start Date End Date Radha Odom [address] [facility] [address] [place] [address] PCP - General 12/31/20 Shawnee Corona, MARIA [...] BE BASED ON THE PRIMARY CLINICAL RECORDS. [email or web address] provides no warranty or guarantee of the accuracy or completeness of information in this document.
[2025-07-07 18:51] LABS: AST(SGOT) 36 U/L (<=31); Alanine Aminotransfer ALT/SGPT 23 U/L (<=34); Albumin, Serum 3.9 g/dL (3.4-4.8); Alkaline Phosphatase 74 U/L (35-104); Bilirubin, Direct 0.24 mg/dL (0.00-0.30); Globulin 3.4 g/dL (2.2-4.2); Magnesium 2.0 mg/dL (1.5-2.2)
[2025-07-07 19:15] LABS: Prothrombin Time (Protime)PT. 14.1 SECONDS (11.7-14.9)
[2025-07-07 19:36] LABS: Pro- Brain NATRIURETIC PEPTIDE 8736 pg/mL (<=900)
[2025-07-07] MEDS: Budesonide Respules 0.5 MG/2 ML AMPUL.NEB. INHALATION (20:30)
[2025-07-07 20:55] LABS: Troponin T High Sens 2 HR 44 ng/L (<=14)
[2025-07-07] MEDS: Furosemide 20 MG/2 ML VIAL IV (22:11)
[2025-07-07 23:35] LABS: Hematocrit 27.0 % (37-47); Hemoglobin 8.4 g/dL (12.0-15.0)
[2025-07-08] VITALS (8 sets, daily range): BP systolic 112–149; BP diastolic 72–95; PULSE 64–78; RESP 16–20; TEMP 36–37.2; O2SAT 96–100; BMI 27.0
[2025-07-08 00:03] LABS: Troponin T High Sens 4 HR 36 ng/L (<=14)
[2025-07-08 06:31] LABS: Hematocrit 26.2 % (37-47); Hemoglobin 8.2 g/dL (12.0-15.0); Immature Granulocytes Count 0.030 X10^3/uL (0.0-0.0); Mean Corp Hgb Conc 31.3 g/dL (32-36); Mean Corpuscular Volume 81.1 fL (81-99); Mean Platelet Vol. 10.7 fl (6.2-12.0); NRBC Flagged by Analyzer 0 % (0-5); Platelet Count 174 K/mm3 (150-450); RBC Distribution Width CV 17.3 % (11.6-14.6); RBC Distribution Width SD 49.7 fl (35.1-43.9); Red Blood Count 3.23 M/mm3 (4.2-5.4); White Blood Count 6.4 K/mm3 (4.4-11.0)
[2025-07-08 06:57] LABS: Anion Gap 13 (5-15); BUN 12 mg/dL (4-19); BUN/Creat Ratio 15.1 RATIO (10-20); Calcium,Total 8.7 mg/dL (7.6-11.0); Carbon Dioxide 20.8 mmol/L (21.0-32.0); Chloride 99 mmol/L (98-108); Estimated Creatinine Clearance 62.18 ml/min (50-250); Glucose 94 mg/dL (70-99); Potassium 4.0 mmol/L (3.3-5.1)
[2025-07-08] MEDS: Budesonide Respules 0.5 MG/2 ML AMPUL.NEB. INHALATION ×2 (07:25→18:03)
[2025-07-08 08:10] LABS: Ferritin 49 ng/mL (22-378); Iron 23 ug/dL (50-170); Iron Binding Capacity,Total 381 ug/dL (250-450); Iron Binding Capacity,Unsat 358 ug/dL (228-428)
[2025-07-08] MEDS: Metoprolol(XL)Succ 25 MG Tablet 12.5 MG PO (10:40)
[2025-07-08] MEDS: Furosemide 20 MG/2 ML VIAL IV ×2 (10:41→17:46)
[2025-07-08] MEDS: Sodium Ferric Gluconat/Sucrose 250 MG in 0.9% Normal Saline (250mL Bag) 250 ML 135 MG IV (11:28)
--- NOTE | 2025-07-08 13:27 | PN.HOSP_ITS ---
Subjective Subjective Feels about the same as she did when she came in, she is short of breath walking from the bed to the bathroom. Hemoccult did come back positive Objective Data Objective Data Vital Signs: Vital Signs Temp Pulse Resp BP Pulse Ox O2 Del Method O2 Flow Rate 97.8 F 78 17 139/74 H 99 Room Air 2 07/08/25 11:00 07/08/25 11:00 07/08/25 11:00 07/08/25 11:00 07/08/25 11:00 07/08/25 11:00 07/08/25 09:18 Oxygen Flow Rate (L/min) 2 Oxygen Delivery Method Room Air Weight: 153 lb 4.8 oz Body Mass Index (BMI) 27.1 Intake & Output: Intake and Output for Last 24 Hours 07/07/25 07/08/25 07/09/25 03:59 03:59 03:59 Intake Total 900 / 900 440 / 440 Balance 900 / 900 440 / 440 Lab / Micro Data 07/08/25 06:07 07/08/25 06:07 Labs: Laboratory Results - last 24 hr 07/07/25 16:43: WBC 6.6, RBC 3.15 L, Hgb 7.8 L, Hct 25.8 L, MCV 81.9, MCH 24.8 L , MCHC 30.2 L, RDW Std Deviation 50.4 H, RDW Coeff of Kit 17.5 H, Plt Count 227, MPV 10.6, Immature Gran % (Auto) 0.300, Neut % (Auto) 70.4 H, Lymph % (Auto) 17.9 L, [place] % (Auto) 9.9, Eos % (Auto) 0.9, Baso % (Auto) 0.6, Absolute Neuts (auto) 4.6, Absolute Lymphs (auto) 1.18, Nucleated RBC % 0, PT 14.1, INR 1.1, D- Dimer Quant (PE/DVT) 0.99 H*, Sodium 134, Potassium 3.9, Chloride 99, Carbon Dioxide 21.2, Anion Gap 14, BUN 11, Creatinine 0.78, Est GFR (MDRD) Non-Af 83, BUN/Creatinine Ratio 13.8, Glucose 186 H, Calcium 8.7, Magnesium 2.0, Total Bilirubin 0.42, Direct Bilirubin 0.24, AST 36 H, ALT 23, Alkaline Phosphatase 74, Troponin T High Sens 54 H* D, NT pro BNP II 8736 H, Total Protein 7.3, Albumin 3.9, Globulin 3.4, Blood Type A POSITIVE, Antibody Screen NEGATIVE 07/07/25 16:44: Crossmatch See Detail 07/07/25 16:44: Crossmatch See Detail 07/07/25 20:20: Troponin T Hi Sens 2 Hr 44 H 07/07/25 23:20: Hgb 8.4 L, Hct 27.0 L, Troponin T Hi Sens 4Hr 36 H 07/08/25 06:07: WBC 6.4, RBC 3.23 L, Hgb 8.2 L, Hct 26.2 L, MCV 81.1, MCH 25.4 L , MCHC 31.3 L, RDW Std Deviation 49.7 H, RDW Coeff of Kit 17.3 H, Plt Count 174, MPV 10.7, Immature Gran % (Auto) 0.500, Neut % (Auto) 72.1 H, Lymph % (Auto) 19.2, [place] % (Auto) 7.7, Eos % (Auto) 0.2, Baso % (Auto) 0.3, Absolute Neuts (auto) 4.6, Absolute Lymphs (auto) 1.22, Nucleated RBC % 0, Sodium 133, Potassium 4.0, Chloride 99, Carbon Dioxide 20.8 L, Anion Gap 13, BUN 12, Creatinine 0.81, Estim Creat Clear Calc 62.18, Est GFR (MDRD) Non-Af 79, BUN/Creatinine Ratio 15.1, Glucose 94, Calcium 8.7, Phosphorus 2.7, Iron 23 L, TIBC 381, Iron Saturation 6.0 L, Unsaturated IBC 358, Ferritin 49 Micro: Microbiology 07/08/25 10:28 Stool Stool Occult Blood (KATE) - Final Occult Blood Positive 07/07/25 16:48 Mucosa - Nose SARS-CoV-2, Influenza & RSV (PCR) - Final Radiography Diagnostic Testing: Radiology Impression Chest X-Ray 07/07/25 17:15 IMPRESSION: Cardiac enlargement. Posttreatment changes right upper lobe similar to prior. No acute abnormality Reading Location: [id number] Chest CTA 07/07/25 17:45 IMPRESSION: 1. Posttreatment changes right upper lobe and adjacent superior segment similar to prior. 2. Progression of disease to involve the following lymph node levels: Right upper paratracheal (2R), lower paratracheal (4R), subcarinal (7), and AP window (5). 3. New mild interstitial edema and scant pleural fluid with minimal bibasilar subsegmental atelectasis. 4. No acute or chronic pulmonary embolus. No acute aortic syndrome. 5. Prior median sternotomy and CABG. Reading Location: [facility] Rhythm Strip Rhythm Strip: Sinus Tach Rate: 114 Ectopy: None Physical Exam Narrative General: Alert, Oriented x3, Cooperative, No apparent distress HEENT: Atraumatic, PERRLA, EOMI, Normocephalic Oral: Moist Mucosa Neck: Supple, No JVD Lungs: Diminished, Normal air movement, No rhonchi, No wheeze, No rales Cardiovascular: Regular rate, Regular Rhythm, Normal S1, Normal S2, No murmurs Abdomen: Soft, Non Tender, Non-Distended, No Hepato-splenomegaly Extremities: No edema, Capillary Refill Less than 3 Seconds Skin: No rashes, No breakdown Musculoskeletal: No Tenderness to Palpation of Joints or Extremities Neurological: No focal neurological deficits, moves all extremities, sensation intact Psych/Mental Status: Normal Affect, Appropriate Assessment & Plan Assessment/Plan (1) Symptomatic anemia: PLAN: Plan 1. Acute blood loss anemia ? It does appear that she has a GI bleed unclear if it is upper or lower, she did have a colonoscopy in December that showed diverticulosis and an 8 mm polyp ? Will consult GI and prep for both colonoscopy and EGD tomorrow ? Iron studies show that she is borderline with a low saturation and iron level, will give her a dose of Venofer today ? She has had history of a bleed in the past ? Continue with PPI 2. CAD status post CABG/essential HTN/HLD/chronic diastolic CHF ? Continue with her home Lasix ? Continue with her home blood pressure medications ? Will monitor and make adjustments as necessary ? Echo in October 2024 with an EF of 60% 3. Lung cancer with a history of COPD with chronic hypoxic respiratory failure ? She has had radiotherapy in the past and CT of the chest demonstrates progression of the disease and lymph nodes ? Continue with her inhalers ? She does not appear to be in acute exacerbation ? She remains on a 2 L nasal cannula at baseline 4. Anxiety/depression ? Stable ? Continue with her home medications DVT: SCDs Charges/Coding Visit Charges Inpatient E&M: 46104 Subs Hosp L2
--- NOTE | 2025-07-08 13:40 | EX.PCM.CON.G ---
HPI Consult Data Date of Consult: 07/09/25 HPI Narrative Reason for Consultation: GI bleeding HPI Narrative: TEODORO ALMEIDA, is a 70-year-old female with extensive past medical history of [place], 7 cardiac stents, triple bypass, cirrhosis, lung cancer, COPD and prior GI bleed with anemia. Patient states she has been intermittently short of breath for months but more so over the last 3 days. She has oxygen that she uses at night 2 L. She denies any recent GI bleed but has had a history of GI bleed. She is not on any blood thinners. She has been transfused in the past. She denies any history of DVT or PE in the past. She has had a cough. No fever. No chest pain. Denies any leg pain or swelling. PE Risk Factors: Positive for Cancer and Recent immobilization; Negative for OCP + Smoking + > 35, Prior DVT or PE, Recent surgery or Recent travel [facility] Medical History Osteoporosis Cirrhosis Myocardial infarct Coronary artery disease Wears glasses Loose, teeth Cancer Depression Bladder disease History of steroid therapy Arthritis High cholesterol Restless legs History of GI bleed On home oxygen therapy Smoker Sleep apnea History of echocardiogram History of stress test Cardiology follow-up encounter GERD (gastroesophageal reflux disease) Lung cancer Anxiety Atherosclerotic heart disease of [place] coronary artery with unstable angina pectoris Chest pain Congestive heart failure History of COPD Anemia Angina of effort Myocardial infarction, silent Adenocarcinoma of lung, stage 1 Lung cancer Melanoma Pure hypercholesterolemia Worsening angina Chest pain, unspecified HOWARD (obstructive sleep apnea) Osteoarthritis DDD (degenerative disc disease) Premature ventricular contraction Pericardial effusion Atherosclerotic heart disease of [place] coronary artery without angina pectoris Nonrheumatic mitral (valve) prolapse Tobacco abuse Essential hypertension Home Medications ?Medication ?Instructions ?Recorded ?Last Taken ?Type omeprazole 20 mg capsule,delayed 20 mg PO DAILY acid reflux 02/04/16 07/06/25 07:49 History release albuterol sulfate 90 mcg/actuation 1 puff inhalation Q6H PRN Sob &/Or 07/28/20 06/14/22 History aerosol inhaler Wheezing ipratropium 0.5 mg-albuterol 3 mg 3 ml inhalation Q4H PRN shortness 12/29/20 06/08/22 Rx (2.5 mg base)/3 mL nebulization of breath or wheezing #180 mL soln nebulizer and compressor #1 ea 06/11/22 Unknown Rx primidone 50 mg tablet 150 mg PO QHS seizures 30 days #90 01/10/24 07/06/25 19:50 History tabs prazosin 2 mg capsule 2 mg PO QHS blood pressure 01/12/24 07/06/25 19:49 History budesonide 1 mg/2 mL suspension 1 mg (2 mL) inhalation BID 02/03/24 07/07/25 16:48 Rx for nebulization BREATHING #60 mL nitroglycerin 0.4 mg sublingual 0.4 mg sublingual Q5M PRN Chest 02/08/24 Unknown Rx tablet Pain #25 tabs metoprolol succinate 25 mg 12.5 mg (1/2 x 25 mg) PO DAILY 02/13/24 07/06/25 07:49 Rx tablet,extended release 24 hr blood pressure #45 TABLETS sertraline 100 mg tablet 150 mg PO DAILY mood 10/16/24 07/06/25 19:50 History furosemide 20 mg tablet (Lasix) 20 mg PO BID diuretic #90 tabs 04/02/25 07/07/25 07:48 Rx isosorbide mononitrate 30 mg 30 mg PO DAILY #30 tabs 06/14/25 07/06/25 07:48 Rx tablet,extended release 24 hr Allergy/AdvReac Type Severity Reaction Status Date / Time Iodinated Contrast Media Allergy Hives Verified 07/07/25 16:36 (Iodinated Contrast Media - IV Dye) mesalamine (From Asacol) Allergy GASTRIC Verified 07/07/25 16:36 HEMORRHAGE tetracycline (Tetracycline) Allergy Hives Verified 07/07/25 16:36 pravastatin AdvReac Intermediate Upset Verified 07/07/25 16:36 Stomach atorvastatin (From Lipitor) AdvReac myalgia Verified 07/07/25 16:36 Family History Father Hypertension Colon cancer Alcoholism Mother Cancer LUNG CANCER/ SMOKER Father , MELANOMA No problems noted. Surgical History History of coronary artery stent placement History of cardiac catheterization History of cervical spinal surgery S/P partial lobectomy of lung interstim placement (~08/05/20) Presence of coronary angioplasty implant and graft (~03/12/18) History of cataract surgery History of abdominal surgery History of total hysterectomy History of cholecystectomy History of bowel resection Hx of appendectomy Presence of stent in coronary artery (~06/15/22) Aortocoronary bypass status (~05/12/04) Postsurgical percutaneous transluminal coronary angioplasty (PTCA) status (~03/12/18) Social History adopted: No housing: house number of children: 1 current occupational status: retired current occupational exposures/hazards: No Smoking Status: Current every day smoker tobacco type: cigarettes Tobacco: How many years used: 50 how long ago did patient quit smokin weeks ago alcohol intake: never substance use type: does not use caffeine: Yes Type: carbonated beverages Number of servings: 2 Lab / Micro Data 07/09/25 03:20 07/09/25 03:20 Labs: Laboratory Results - last 24 hr 07/07/25 16:43: WBC 6.6, RBC 3.15 L, Hgb 7.8 L, Hct 25.8 L, MCV 81.9, MCH 24.8 L, MCHC 30.2 L, RDW Std Deviation 50.4 H, RDW Coeff of Kit 17.5 H, Plt Count 227, MPV 10.6, Immature Gran % (Auto) 0.300, Neut % (Auto) 70.4 H, Lymph % (Auto) 17.9 L, [place] % (Auto) 9.9, Eos % (Auto) 0.9, Baso % (Auto) 0.6, Absolute Neuts (auto) 4.6, Absolute Lymphs (auto) 1.18, Nucleated RBC % 0, PT 14.1, INR 1.1, D-Dimer Quant (PE/DVT) 0.99 H*, Sodium 134, Potassium 3.9, Chloride 99, Carbon Dioxide 21.2, Anion Gap 14, BUN 11, Creatinine 0.78, Est GFR (MDRD) Non-Af 83, BUN/Creatinine Ratio 13.8, Glucose 186 H, Calcium 8.7, Magnesium 2.0, Total Bilirubin 0.42, Direct Bilirubin 0.24, AST 36 H, ALT 23, Alkaline Phosphatase 74, Troponin T High Sens 54 H* D, NT pro BNP II 8736 H, Total Protein 7.3, Albumin 3.9, Globulin 3.4, Blood Type A POSITIVE, Antibody Screen NEGATIVE 07/07/25 16:44: Crossmatch See Detail 07/07/25 16:44: Crossmatch See Detail 07/07/25 20:20: Troponin T Hi Sens 2 Hr 44 H 07/07/25 23:20: Hgb 8.4 L, Hct 27.0 L, Troponin T Hi Sens 4Hr 36 H 07/08/25 06:07: WBC 6.4, RBC 3.23 L, Hgb 8.2 L, Hct 26.2 L, MCV 81.1, MCH 25.4 L, MCHC 31.3 L, RDW Std Deviation 49.7 H, RDW Coeff of Kit 17.3 H, Plt Count 174, MPV 10.7, Immature Gran % (Auto) 0.500, Neut % (Auto) 72.1 H, Lymph % (Auto) 19.2, [place] % (Auto) 7.7, Eos % (Auto) 0.2, Baso % (Auto) 0.3, Absolute Neuts (auto) 4.6, Absolute Lymphs (auto) 1.22, Nucleated RBC % 0, Sodium 133, Potassium 4.0, Chloride 99, Carbon Dioxide 20.8 L, Anion Gap 13, BUN 12, Creatinine 0.81, Estim Creat Clear Calc 62.18, Est GFR (MDRD) Non-Af 79, BUN/Creatinine Ratio 15.1, Glucose 94, Calcium 8.7, Phosphorus 2.7, Iron 23 L, TIBC 381, Iron Saturation 6.0 L, Unsaturated IBC 358, Ferritin 49 Micro: Microbiology 07/08/25 10:28 Stool Stool Occult Blood (KATE) - Final Occult Blood Positive 07/07/25 16:48 Mucosa - Nose SARS-CoV-2, Influenza & RSV (PCR) - Final Rhythm Strip Rhythm Strip: Sinus Tach Rate: 114 Ectopy: None Imaging Radiology Impression Chest X-Ray 07/07/25 17:15 IMPRESSION: Cardiac enlargement. Posttreatment changes right upper lobe similar to prior. No acute abnormality Reading Location: [id number] Chest CTA 07/07/25 17:45 IMPRESSION: 1. Posttreatment changes right upper lobe and adjacent superior segment similar to prior. 2. Progression of disease to involve the following lymph node levels: Right upper paratracheal (2R), lower paratracheal (4R), subcarinal (7), and AP window (5). 3. New mild interstitial edema and scant pleural fluid with minimal bibasilar subsegmental atelectasis. 4. No acute or chronic pulmonary embolus. No acute aortic syndrome. 5. Prior median sternotomy and CABG. Reading Location: [id number] Assessment & Plan Assessment/Plan (1) Symptomatic anemia: PLAN: Plan This is a 62-year-old female being admitted for symptomatic anemia with shortness of breath at rest, worse on exertion. 1. Symptomatic severe anemia with shortness of breath/dyspnea on exertion: Agree with 2 units of packed red crossmatched ordered by ER physician. Patient will undergo EGD and colonoscopy to evaluate upper lower GI tract. She was explained alternatives, risk and benefits include not withstanding bleeding complex, subs, perforation, need emergency . She will have an ASA of 3. 2. History of GI bleed in past: Patient had colonoscopy and EGD in December 2024 reported diverticulosis in rectosigmoid and sigmoid colon. 8 mm polyp at the splenic flexure removed. EGD reported small hiatus hernia, acute gastritis with hemorrhage biopsied. Normal esophagus. Was negative for H. pylori. Gastric body biopsy shows focal superficial mucosal hemorrhage with mild chronic inflammation. She also also found angiodysplastic lesion in colon and required cauterization in 2021
[2025-07-08] MEDS: Polyethylene Glycol 3350 BOWEL PREP PO (16:30)
--- NOTE | 2025-07-08 22:09 | PN.HOSP_ITS ---
Reason for Visit Chief Complaint: Shortness of breath for last 3 to 4 days, low hemoglobin. Subjective Subjective Pt requesting sleep aid while hospitalized. Denies need for, or use of, sleep aid while at home. Objective Data Objective Data Vital Signs: Vital Signs Temp Pulse Resp BP Pulse Ox O2 Del Method O2 Flow Rate 97.8 F 64 18 138/87 H 100 Nasal Cannula 2 07/08/25 17:00 07/08/25 18:04 07/08/25 18:04 07/08/25 17:00 07/08/25 17:00 07/08/25 17:00 07/08/25 17:00 Oxygen Flow Rate (L/min) 2 Oxygen Delivery Method Nasal Cannula Weight: 153 lb 4.8 oz Body Mass Index (BMI) 27.1 Intake & Output: Intake and Output for Last 24 Hours 07/06/25 07/07/25 07/08/25 23:59 23:59 23:59 Intake Total 400 / 900 1690 / 1690 Balance 400 / 900 1690 / 1690 Lab / Micro Data 07/08/25 06:07 07/08/25 06:07 Labs: Laboratory Results - last 24 hr 07/07/25 16:44: Crossmatch See Detail 07/07/25 23:20: Hgb 8.4 L, Hct 27.0 L, Troponin T Hi Sens 4Hr 36 H 07/08/25 06:07: WBC 6.4, RBC 3.23 L, Hgb 8.2 L, Hct 26.2 L, MCV 81.1, MCH 25.4 L , MCHC 31.3 L, RDW Std Deviation 49.7 H, RDW Coeff of Kit 17.3 H, Plt Count 174, MPV 10.7, Immature Gran % (Auto) 0.500, Neut % (Auto) 72.1 H, Lymph % (Auto) 19.2, [place] % (Auto) 7.7, Eos % (Auto) 0.2, Baso % (Auto) 0.3, Absolute Neuts (auto) 4.6, Absolute Lymphs (auto) 1.22, Nucleated RBC % 0, Sodium 133, Potassium 4.0, Chloride 99, Carbon Dioxide 20.8 L, Anion Gap 13, BUN 12, Creatinine 0.81, Estim Creat Clear Calc 62.18, Est GFR (MDRD) Non-Af 79, BUN/Creatinine Ratio 15.1, Glucose 94, Calcium 8.7, Phosphorus 2.7, Iron 23 L, TIBC 381, Iron Saturation 6.0 L, Unsaturated IBC 358, Ferritin 49 Micro: Microbiology 07/08/25 10:28 Stool Stool Occult Blood (KATE) - Final Occult Blood Positive 07/07/25 16:48 Mucosa - Nose SARS-CoV-2, Influenza & RSV (PCR) - Final Rhythm Strip Rhythm Strip: Sinus Tach Rate: 114 Ectopy: None Assessment & Plan Assessment/Plan (1) Symptomatic anemia: PLAN: * melatonin 3mg PO QHS PRN sleep
[2025-07-08] MEDS: MELATONIN 3 MG TABLET PO (22:40)
[2025-07-08] MEDS: Pantoprazole Sodium 40 MG in 0.9% Normal Saline (100mL MB+) 100 ML 300 MG IV (23:15)
[2025-07-09] VITALS (13 sets, daily range): BP systolic 97–149; BP diastolic 50–95; PULSE 69–104; RESP 16–18; TEMP 36.4–37.2; O2SAT 93–100
[2025-07-09 03:55] LABS: Hematocrit 26.4 % (37-47); Hemoglobin 8.2 g/dL (12.0-15.0); Immature Granulocytes Count 0.020 X10^3/uL (0.0-0.0); Mean Corp Hgb Conc 31.1 g/dL (32-36); Mean Corpuscular Volume 81.0 fL (81-99); Mean Platelet Vol. 10.7 fl (6.2-12.0); NRBC Flagged by Analyzer 0 % (0-5); Platelet Count 195 K/mm3 (150-450); RBC Distribution Width CV 17.3 % (11.6-14.6); RBC Distribution Width SD 49.6 fl (35.1-43.9); Red Blood Count 3.26 M/mm3 (4.2-5.4); White Blood Count 7.6 K/mm3 (4.4-11.0)
[2025-07-09 04:51] LABS: Anion Gap 12 (5-15); BUN 13 mg/dL (4-19); BUN/Creat Ratio 15.1 RATIO (10-20); Calcium,Total 8.6 mg/dL (7.6-11.0); Carbon Dioxide 23.8 mmol/L (21.0-32.0); Chloride 99 mmol/L (98-108); Estimated Creatinine Clearance 59.82 ml/min (50-250); Glucose 104 mg/dL (70-99); Potassium 3.6 mmol/L (3.3-5.1)
[2025-07-09] MEDS: Budesonide Respules 0.5 MG/2 ML AMPUL.NEB. INHALATION ×2 (06:59→20:44)
--- NOTE | 2025-07-09 09:19 | PCM.PN.HOSP ---
Subjective Subjective Doing well, hemoglobin is stable at 8.2 planning for EGD and colonoscopy today Objective Data Objective Data Vital Signs: Vital Signs Temp Pulse Resp BP Pulse Ox O2 Del Method O2 Flow Rate 97.6 F L 70 18 109/72 93 Room Air 2 07/09/25 09:08 07/09/25 09:08 07/09/25 09:08 07/09/25 09:08 07/09/25 09:08 07/09/25 09:08 07/09/25 07:00 Oxygen Flow Rate (L/min) 2 Oxygen Delivery Method Room Air Weight: 152 lb 8.958 oz Body Mass Index (BMI) 27.0 Intake & Output: Intake and Output for Last 24 Hours 07/08/25 07/09/25 07/10/25 03:59 03:59 03:59 Intake Total 900 / 900 2790 / 2790 0 / 0 Balance 900 / 900 2790 / 2790 0 / 0 Lab / Micro Data 07/09/25 03:20 07/09/25 03:20 Labs: Laboratory Results - last 24 hr 07/09/25 03:20: WBC 7.6, RBC 3.26 L, Hgb 8.2 L, Hct 26.4 L, MCV 81.0, MCH 25.2 L, MCHC 31.1 L, RDW Std Deviation 49.6 H, RDW Coeff of Kit 17.3 H, Plt Count 195, MPV 10.7, Immature Gran % (Auto) 0.300, Neut % (Auto) 70.1 H, Lymph % (Auto) 17.8 L, [place] % (Auto) 10.5 H, Eos % (Auto) 0.9, Baso % (Auto) 0.4, Absolute Neuts (auto) 5.3, Absolute Lymphs (auto) 1.35, Nucleated RBC % 0, Sodium 134, Potassium 3.6, Chloride 99, Carbon Dioxide 23.8, Anion Gap 12, BUN 13, Creatinine 0.84, Estim Creat Clear Calc 59.82, Est GFR (MDRD) Non-Af 76, BUN/Creatinine Ratio 15.1, Glucose 104 H, Calcium 8.6 Micro: Microbiology 07/08/25 10:28 Stool Stool Occult Blood (KATE) - Final Occult Blood Positive 07/07/25 16:48 Mucosa - Nose SARS-CoV-2, Influenza & RSV (PCR) - Final Rhythm Strip Rhythm Strip: Sinus Tach Rate: 114 Ectopy: None Physical Exam Narrative General: Alert, Oriented x3, Cooperative, No apparent distress HEENT: Atraumatic, PERRLA, EOMI, Normocephalic Oral: Moist Mucosa Neck: Supple, No JVD Lungs: Diminished, Normal air movement, No rhonchi, No wheeze, No rales Cardiovascular: Regular rate, Regular Rhythm, Normal S1, Normal S2, No murmurs Abdomen: Soft, Non Tender, Non-Distended, No Hepato-splenomegaly Extremities: No edema, Capillary Refill Less than 3 Seconds Skin: No rashes, No breakdown Musculoskeletal: No Tenderness to Palpation of Joints or Extremities Neurological: No focal neurological deficits, moves all extremities, sensation intact Psych/Mental Status: Normal Affect, Appropriate Assessment & Plan Assessment/Plan (1) Symptomatic anemia: PLAN: Plan 1. Acute blood loss anemia ? It does appear that she has a GI bleed unclear if it is upper or lower, she did have a colonoscopy in December that showed diverticulosis and an 8 mm polyp ? Will consult GI and prep for both colonoscopy and EGD today ? Iron studies show that she is borderline with a low saturation and iron level, will give her a dose of Venofer today ? She has had history of a bleed in the past ? Continue with PPI ? She did receive 1 unit of blood on 07/07/2025 2. CAD status post CABG/essential HTN/HLD/chronic diastolic CHF ? Continue with her home Lasix ? Continue with her home blood pressure medications ? Will monitor and make adjustments as necessary ? Echo in October 2024 with an EF of 60% 3. Lung cancer with a history of COPD with chronic hypoxic respiratory failure ? She has had radiotherapy in the past and CT of the chest demonstrates progression of the disease and lymph nodes ? Continue with her inhalers ? She does not appear to be in acute exacerbation ? She remains on a 2 L nasal cannula at baseline 4. Anxiety/depression ? Stable ? Continue with her home medications DVT: SCDs Charges/Coding Visit Charges Inpatient E&M: 25506 Subs Hosp L2
[2025-07-09] MEDS: Pantoprazole Sodium 40 MG in 0.9% Normal Saline (100mL MB+) 100 ML 300 MG IV ×2 (10:06→21:22)
[2025-07-09] MEDS: 0.9% Saline Lock 10 ML Syringe IV ×3 (10:13→21:24)
[2025-07-09] MEDS: Sodium Ferric Gluconat/Sucrose 125 MG in 0.9% Normal Saline (100mL Bag) 100 ML 110 MG IV (10:48)
[2025-07-09] MEDS: Lactated Ringers 1,000 ML 15 ML IV (15:15)
--- NOTE | 2025-07-09 15:37 | PCM.PRE.AN2 ---
ASA Classification* ASA Classification ASA Classification: 3 Assessment & Plan Anesthesia* Anesthesia Assessment Anesthesia Assessment: Discussed sedation and/or anesthesia options, risks, benefits, and alternatives with patient/parents/legal guardian/POA. Questions invited. The patient/parents/legal guardian/POA seems to understand and agrees to proceed with anesthesia plan. Reviewed the physical assessment, medical history, allergy history and patient home medications list prior to surgery/procedure/anesthetic and documented any changes. Performed airway and anesthesia risk assessments. Anesthesia Type Anesthesia Type: MAC History Source History Obtained from:: Patient and Chart Anesthesia Focused Assessment* Temperature: 98.9 F Pulse Rate: 74 Blood Pressure: 149/95 Respiratory Rate: 16 Pulse Ox: 97 Oxygen Delivery Method: Room Air Oxygen Flow Rate (L/min): 2 Airway Assessment Mouth opens: >3 cm Mallampati Score: III Teeth Condition: Loose (Lower incisors are loose. At rest the teeth are tight.) Neck Range of motion (ROM): Limited ROM (Slight Decrease) Labs Anesthesia Preop lab: CBC WBC 7.6 K/mm3 (4.4-11.0) 07/09/25 03:20 07/09/25 RBC 3.26 M/mm3 (4.2-5.4) L 07/09/25 03:20 07/09/25 Hgb 8.2 g/dL (12.0-15.0) L 07/09/25 03:20 07/09/25 Hct 26.4 % (37-47) L 07/09/25 03:20 07/09/25 Plt Count 195 K/mm3 (150-450) 07/09/25 03:20 07/09/25 CHEMISTRY Potassium 3.6 mmol/L (3.3-5.1) 07/09/25 03:20 07/09/25 Sodium 134 mmol/L (133-145) 07/09/25 03:20 07/09/25 Magnesium 2.0 mg/dL (1.5-2.2) 07/07/25 16:43 07/07/25 Phosphorus 2.7 mg/dL (2.7-4.5) 07/08/25 06:07 07/08/25 BUN 13 mg/dL (4-19) 07/09/25 03:20 07/09/25 Creatinine 0.84 mg/dL (0.70-1.20) 07/09/25 03:20 07/09/25 Glucose 104 mg/dL (70-99) H 07/09/25 03:20 07/09/25 TSH 2.37 uIU/mL (0.358-3.74) 01/24/23 15:22 01/24/23 COAG PT 14.1 SECONDS (11.7-14.9) 07/07/25 16:43 07/07/25 Pre-Assessment Diagnosis/Proposed Procedure Planned Operative Procedure(s): Esophagogastroduodenoscopy and colonoscopy. 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 When Was Last Pacemaker Check QUESTION #4 FULL TEXT: You/Your Family Experience fever (hyperthermia) with Anesthesia Last Oral Intake Last Oral intake: Last Oral Intake NPO since Meds taken in AM with sips of water? 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 Has anyone observed you stop breathing during sleep? STOP Results Positive 07/07/25 19:01 QUESTION #5 FULL TEXT : Do you snore loudly (louder than talking or can be heard through closed doors)? 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 Specify any problems Hx of Preganancy in last 3 No 07/07/25 19:01 Months Nurse Filling Out Transfusion AREAD 07/07/25 19:01 & Questions: Date: 07/07/25 07/07/25 19:01 Time: 19:51 07/07/25 19:01 Patient unable to answer at this time (ie. 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 operator Hx Now No 07/08/25 23:42 Gestational Age (in weeks): EDC: Hx Hx Para Hx Section SAB No 07/08/25 23:42 Active Medications Active Medications: Current Medications Generic Name Dose Route Start Last Admin Trade Name Freq PRN Reason Stop Dose Admin Acetaminophen 650 mg 07/07/25 19:00 Acetaminophen 325 Mg Tablet PO Q6H PRN PRN Pain 1-10 Or Fever>100.7 Albuterol/Ipratropium 3 ml 07/07/25 19:00 07/08/25 18:03 Ipratropium/Albuterol Sulfate 3 Ml Ampul.Neb INHALATION 3 ml Q4H PRN PRN Administration shortness of breath/wheezing Budesonide 0.5 mg 07/07/25 22:00 07/09/25 06:59 Budesonide Respules 0.5 Mg/2 Ml Ampul.Neb. INHALATION 0.5 mg Q12H.RT GOMEZ Administration Furosemide 20 mg 07/08/25 10:00 07/09/25 10:12 Furosemide 20 Mg/2 Ml Vial IV Not Given BIDLX GOMEZ Protocol Sodium Chloride 500 mls @ 15 mls/hr 07/07/25 19:03 IV PRN PRN Blood Transfusion Sodium Chloride 250 mls @ 15 mls/hr 07/07/25 19:03 IV .[id number] PRN Saline Flush Sodium Chloride 250 mls @ 15 mls/hr 07/07/25 19:03 IV .[id number] PRN Additional IVPB Infusion Pantoprazole Sodium 40 mg/ 100 mls @ 300 mls/hr 07/08/25 22:00 07/09/25 10:49 Sodium Chloride IV Infused Q12 GOMEZ Infusion Lactated Ringer's 1,000 mls @ 15 mls/hr 07/09/25 15:15 07/09/25 15:15 IV 15 mls/hr .Q48H GOMEZ Administration Isosorbide Mononitrate 30 mg 07/08/25 10:00 07/09/25 10:12 Isosorbide Mononitrate 30 Mg Tablet PO Not Given DAILY GOMEZ Protocol Melatonin 3 mg 07/08/25 22:07 07/08/25 22:40 Melatonin 3 Mg Tablet PO 3 mg QHS PRN Administration SLEEP Metoprolol Succinate 12.5 mg 07/08/25 10:00 07/09/25 10:13 Metoprolol(Xl)Succ 25 Mg Tablet PO Not Given DAILY GOMEZ Protocol Nitroglycerin 0.4 mg 07/07/25 19:00 Nitroglycerin (Inpatient Use) 0.4 Mg Tab.Subl SL Q5M PRN Chest Pain Prazosin HCl 2 mg 07/07/25 22:00 07/08/25 21:29 Prazosin Hcl 1 Mg Capsule PO 2 mg QHS GOMEZ Administration Primidone 150 mg 07/07/25 22:00 07/08/25 21:29 Primidone 50 Mg Tablet PO 150 mg QHS GOMEZ Administration Senna/Docusate Sodium 2 tablet 07/07/25 19:00 Senna/Docusate Sodium 1 Tablet PO BID PRN PRN Constipation Sertraline HCl 150 mg 07/07/25 22:00 07/08/25 21:29 Sertraline 50 Mg Tablet PO 150 mg 2200 GOMEZ Administration Sodium Chloride 10 - 40 ml 07/07/25 19:03 07/09/25 10:13 0.9% Saline Lock 10 Ml Syringe IV 10 ml UD PRN Administration SALINE [facility] Medical History Osteoporosis Cirrhosis Myocardial infarct Coronary artery disease Wears glasses Loose, teeth Cancer Depression Bladder disease History of steroid therapy Arthritis High cholesterol Restless legs History of GI bleed On home oxygen therapy Smoker Sleep apnea History of echocardiogram History of stress test Cardiology follow-up encounter GERD (gastroesophageal reflux disease) Lung cancer Anxiety Atherosclerotic heart disease of [place] coronary artery with unstable angina pectoris Chest pain Congestive heart failure History of COPD Anemia Angina of effort Myocardial infarction, silent Adenocarcinoma of lung, stage 1 Lung cancer Melanoma Pure hypercholesterolemia Worsening angina Chest pain, unspecified HOWARD (obstructive sleep apnea) Osteoarthritis DDD (degenerative disc disease) Premature ventricular contraction Pericardial effusion Atherosclerotic heart disease of [place] coronary artery without angina pectoris Nonrheumatic mitral (valve) prolapse Tobacco abuse Essential hypertension Home Medications ?Medication ?Instructions ?Recorded ?Last Taken ?Type omeprazole 20 mg capsule,delayed 20 mg PO DAILY acid reflux 02/04/16 07/06/25 07:49 History release albuterol sulfate 90 mcg/actuation 1 puff inhalation Q6H PRN Sob &/Or 07/28/20 06/14/22 History aerosol inhaler Wheezing ipratropium 0.5 mg-albuterol 3 mg 3 ml inhalation Q4H PRN shortness 12/29/20 06/08/22 Rx (2.5 mg base)/3 mL nebulization of breath or wheezing #180 mL soln nebulizer and compressor #1 ea 06/11/22 Unknown Rx primidone 50 mg tablet 150 mg PO QHS seizures 30 days #90 01/10/24 07/06/25 19:50 History tabs prazosin 2 mg capsule 2 mg PO QHS blood pressure 01/12/24 07/06/25 19:49 History budesonide 1 mg/2 mL suspension 1 mg (2 mL) inhalation BID 02/03/24 07/07/25 16:48 Rx for nebulization BREATHING #60 mL nitroglycerin 0.4 mg sublingual 0.4 mg sublingual Q5M PRN Chest 02/08/24 Unknown Rx tablet Pain #25 tabs metoprolol succinate 25 mg 12.5 mg (1/2 x 25 mg) PO DAILY 02/13/24 07/06/25 07:49 Rx tablet,extended release 24 hr blood pressure #45 TABLETS sertraline 100 mg tablet 150 mg PO DAILY mood 10/16/24 07/06/25 19:50 History furosemide 20 mg tablet (Lasix) 20 mg PO BID diuretic #90 tabs 04/02/25 07/07/25 07:48 Rx isosorbide mononitrate 30 mg 30 mg PO DAILY #30 tabs 06/14/25 07/06/25 07:48 Rx tablet,extended release 24 hr Allergy/AdvReac Type Severity Reaction Status Date / Time Iodinated Contrast Media Allergy Hives Verified 07/07/25 16:36 (Iodinated Contrast Media - IV Dye) mesalamine (From Asacol) Allergy GASTRIC Verified 07/07/25 16:36 HEMORRHAGE tetracycline (Tetracycline) Allergy Hives Verified 07/07/25 16:36 pravastatin AdvReac Intermediate Upset Verified 07/07/25 16:36 Stomach atorvastatin (From Lipitor) AdvReac myalgia Verified 07/07/25 16:36 Family History Father Hypertension Colon cancer Alcoholism Mother Cancer LUNG CANCER/ SMOKER Father , MELANOMA No problems noted. Surgical History History of coronary artery stent placement History of cardiac catheterization History of cervical spinal surgery S/P partial lobectomy of lung interstim placement (~08/05/20) Presence of coronary angioplasty implant and graft (~03/12/18) History of cataract surgery History of abdominal surgery History of total hysterectomy History of cholecystectomy History of bowel resection Hx of appendectomy Presence of stent in coronary artery (~06/15/22) Aortocoronary bypass status (~05/12/04) Postsurgical percutaneous transluminal coronary angioplasty (PTCA) status (~03/12/18) Social History adopted: No housing: house number of children: 1 current occupational status: retired current occupational exposures/hazards: No Smoking Status: Current every day smoker tobacco type: cigarettes Tobacco: How many years used: 50 how long ago did patient quit smokin weeks ago alcohol intake: never substance use type: does not use caffeine: Yes Type: carbonated beverages Number of servings: 2 Review of Systems (Anesthesia) ROS Narrative System reviewed and no additional complaints, except as documented.
--- NOTE | 2025-07-09 16:00 | COLBX_PTH ---
PATIENT: TEODORO ALMEIDA LOC: [facility] U#:[id number] AGE/SX: 70/F ROOM: [facility] RE07/07/[address]: Dr. Philipp Akins MD : 1955 BED: 1 DIS: 07/10/2025 SPEC #: [id number] RECD: 07/09/25 18:02 STATUS: TEETEE BERRY #: [id number] RADHA: 07/09/25 16:[address]: Ra Galehsaan DEPT: SURGICAL PATHOLOGY RECD BY: Deny Sharma ENTERED: 07/10/25 09:47 SP TYPE: COLON BX OTHR DR: MD Dr. Philipp Cole MD Dr. Nicholas F Kotsonis, MD Dr. Prakash Chand, MD Heather Evans, NP-C Nivia Moore NP-C MAXINE Travis Tissues: A - Transverse colon B - Sigmoid colon biopsy Procedures: Surgery Specimen Level IV HEADER OPERATION: Colonoscopy, EGD PRE-OP DIAGNOSIS: Symptomatic anemia TISSUE SUBMITTED: A- Transverse colon polyp, B- Sigmoid colon biopsy MICROSCOPIC DIAGNOSIS A. Transverse colon, polyp, biopsy: - Hyperplastic polyp. B. Sigmoid colon, biopsy: - No specific pathologic change. MICROSCOPIC DESCRIPTION Slides are reviewed. GROSS DESCRIPTION A. Received in fixative is one container labeled with the patient's name and designated Transverse colon polyp. The specimen consists of one irregular fragment of light vu soft tissue that measures 0.4 cm. The specimen is totally submitted in one cassette. B. Received in fixative is one container labeled with the patient's name and designated Sigmoid colon biopsy. The specimen consists of three irregular fragments of light vu soft tissue that measure 0.2 to 0.6 cm. The specimen is totally submitted in one cassette. PR 07/10/2025 CPT:50731v7
[2025-07-09] MEDS: Lidocaine 1% (5 ml sdv) 5 ML Vial 10 ML IV (16:06)
--- NOTE | 2025-07-09 16:47 | OP.PROVAT_ITS ---
07/09/2025 Phani Odom [address] [place] [address] Re : Upper GI endoscopy procedure for Haleigh Banda Dear Dr. Odom This procedure was performed on Wednesday, July 09, 2025. My impressions and recommendations are as follows: Impressions : - No gross lesions in the entire esophagus. - Hiatal hernia. - No gross lesions in the entire examined duodenum. - No specimens collected. Recommendations : - Discharge patient to home. - Resume previous diet. - Continue present medications. My findings are described in the full procedure note, which is enclosed. If I can be of further assistance, please feel free to contact me at . Sincerely, Tanner Beasley, 07/09/2025 4:46:31 PM This report has been signed electronically.
--- NOTE | 2025-07-09 16:47 | OP.EGD_ITS ---
Patient Name: Haleigh Banda Procedure Date: 07/09/2025 4:02 PM Date of : 1955 Age: 70 Procedure: Upper GI endoscopy Indications: Iron deficiency anemia Providers: Tanner Beasley DO Medicines: Monitored Anesthesia Care Patient Profile: This is a 70 year old female. Refer to note in patient chart for documentation of history and physical. Patient has symptoms. Complications: No immediate complications. Procedure: Pre-Anesthesia Assessment: - Prior to the procedure, a History and Physical was performed, and patient medications and allergies were reviewed. The patient is competent. The risks and benefits of the procedure and the sedation options and risks were discussed with the patient. All questions were answered and informed consent was obtained. Patient identification and proposed procedure were verified by the physician in the pre-procedure area. Mental Status Examination: alert and oriented. Airway Examination: normal oropharyngeal airway and neck mobility. Respiratory Examination: clear to auscultation. CV Examination: normal. Prophylactic Antibiotics: The patient does not require prophylactic antibiotics. Prior Anticoagulants: The patient has taken no anticoagulant or antiplatelet agents except for NSAID medication. ASA Grade Assessment: II - A patient with mild systemic disease. After reviewing the risks and benefits, the patient was deemed in satisfactory condition to undergo the procedure. The anesthesia plan was to use monitored anesthesia care (MAC). Immediately prior to administration of medications, the patient was re-assessed for adequacy to receive sedatives. The heart rate, respiratory rate, oxygen saturations, blood pressure, adequacy of pulmonary ventilation, and response to care were monitored throughout the procedure. The physical status of the patient was re-assessed after the procedure. After obtaining informed consent, the endoscope was passed under direct vision. Throughout the procedure, the patient's blood pressure, pulse, and oxygen saturations were monitored continuously. The Colonoscope was introduced through the mouth, and advanced to the third part of the duodenum. Small bowel enteroscopy was deemed necessary. The upper GI endoscopy was accomplished without difficulty. The patient tolerated the procedure well. Scope In: 4:15:37 PM Scope Out: 4:17:32 PM Total Procedure Duration Time 0 hours 1 minute 55 seconds Findings: No gross lesions were noted in the entire esophagus. A hiatal hernia was present. No other significant abnormalities were identified in a careful examination of the stomach. No gross lesions were noted in the entire examined duodenum. Impression: - No gross lesions in the entire esophagus. - Hiatal hernia. - No gross lesions in the entire examined duodenum. - No specimens collected. Recommendation: - Discharge patient to home. - Resume previous diet. - Continue present medications. Procedure Code(s): --- Professional --- 78009, Small intestinal endoscopy, enteroscopy beyond second portion of duodenum, not including ileum; diagnostic, including collection of specimen(s) by brushing or washing, when performed (separate procedure) CPT copyright 2021 [employer]. All rights reserved. The codes documented in this report are preliminary and upon oil pipe inspector review may be revised to meet current compliance requirements. Tanner Beasley DO 07/09/2025 4:46:31 PM This report has been signed electronically. Number of Addenda: 0 Note Initiated On: 07/09/2025 4:02 PM
--- NOTE | 2025-07-09 16:47 | PCM.POST.ANE ---
Anesthesia: Postop Eval I Current Vital Signs Temperature: 98.6 F Pulse Rate: 88 Blood Pressure: 144/92 Respiratory Rate: 16 Pulse Ox: 100 Oxygen Delivery Method: Nasal Cannula Oxygen Flow Rate (L/min): 2 Assessment Airway patent: Yes Spontaneous unlabored respirations: Yes Mental status: Awake and Calm nausea: Yes Vomiting: No Anesthesia Complication: No Fluid Hydration Crystalloid volume administer (ml): 400 Total IV fluid infused: 400 Progress Note Post-operative progress note: RN to medicate for nausea Anesthesia document: Postop Eval 1 completed: Yes
--- NOTE | 2025-07-09 16:50 | OP.COLON_ITS ---
Patient Name: Haleigh Banda Procedure Date: 07/09/2025 4:17 PM Date of : 1955 Age: 70 Procedure: Colonoscopy Indications: Iron deficiency anemia Providers: Tanner Beasley DO Medicines: Monitored Anesthesia Care Patient Profile: This is a 70 year old female. Refer to note in patient chart for documentation of history and physical. Patient has symptoms. Last Colonoscopy: 1 year ago. Complications: No immediate complications. Procedure: Pre-Anesthesia Assessment: - Prior to the procedure, a History and Physical was performed, and patient medications and allergies were reviewed. The patient is competent. The risks and benefits of the procedure and the sedation options and risks were discussed with the patient. All questions were answered and informed consent was obtained. Patient identification and proposed procedure were verified by the physician in the pre-procedure area. Mental Status Examination: alert and oriented. Airway Examination: normal oropharyngeal airway and neck mobility. Respiratory Examination: clear to auscultation. CV Examination: normal. Prophylactic Antibiotics: The patient does not require prophylactic antibiotics. Prior Anticoagulants: The patient has taken no anticoagulant or antiplatelet agents except for NSAID medication. ASA Grade Assessment: II - A patient with mild systemic disease. After reviewing the risks and benefits, the patient was deemed in satisfactory condition to undergo the procedure. The anesthesia plan was to use monitored anesthesia care (MAC). Immediately prior to administration of medications, the patient was re-assessed for adequacy to receive sedatives. The heart rate, respiratory rate, oxygen saturations, blood pressure, adequacy of pulmonary ventilation, and response to care were monitored throughout the procedure. The physical status of the patient was re-assessed after the procedure. After I obtained informed consent, the scope was passed under direct vision. Throughout the procedure, the patient's blood pressure, pulse, and oxygen saturations were monitored continuously. The Colonoscope was introduced through the anus and advanced to the cecum, identified by appendiceal orifice and ileocecal valve. The colonoscopy was performed without difficulty. The patient tolerated the procedure well. The quality of the bowel preparation was adequate. The ileocecal valve, appendiceal orifice, and rectum were photographed. Scope In: 4:21:03 PM Scope Withdrawal Time 0 hours 8 minutes 38 seconds Scope Out: 4:33:42 PM Total Procedure Duration Time 0 hours 12 minutes 39 seconds Findings: The perianal and digital rectal examinations were normal. Multiple small and large-mouthed diverticula were found in the recto-sigmoid colon, sigmoid colon and descending colon. Localized mild inflammation characterized by erythema was found in the sigmoid colon. Biopsies were taken with a cold forceps for histology. Verification of patient identification for the specimen was done. Estimated blood loss was minimal. A 3 mm polyp was found in the transverse colon. The polyp was sessile. The polyp was removed with a cold biopsy forceps. Resection and retrieval were complete. Verification of patient identification for the specimen was done. Estimated blood loss was minimal. The exam was otherwise without abnormality on direct and retroflexion views. Non-bleeding external and internal hemorrhoids were found during retroflexion. The hemorrhoids were Grade II (internal hemorrhoids that prolapse but reduce spontaneously). Impression: - Diverticulosis in the recto-sigmoid colon, in the sigmoid colon and in the descending colon. - Localized mild inflammation was found in the sigmoid colon secondary to colitis. Biopsied. - One 3 mm polyp in the transverse colon, removed with a cold biopsy forceps. Resected and retrieved. - The examination was otherwise normal on direct and retroflexion views. Recommendation: - Discharge patient to home. - Resume previous diet. - Continue present medications. - Await pathology results. - Repeat colonoscopy in 3 years for surveillance. Procedure Code(s): --- Professional --- 64403, Colonoscopy, flexible; with biopsy, single or multiple CPT copyright 2021 [employer]. All rights reserved. The codes documented in this report are preliminary and upon pinsetter mechanic automatic review may be revised to meet current compliance requirements. Tanner Beasley DO 07/09/2025 4:50:02 PM This report has been signed electronically. Number of Addenda: 0 Note Initiated On: 07/09/2025 4:17 PM
--- NOTE | 2025-07-09 16:50 | OP.PROVAT_ITS ---
07/09/2025 Phani Odom [address] [place] [address] Re : Colonoscopy procedure for Haleigh Banda Dear Dr. Odom This procedure was performed on Wednesday, July 09, 2025. My impressions and recommendations are as follows: Impressions : - Diverticulosis in the recto-sigmoid colon, in the sigmoid colon and in the descending colon. - Localized mild inflammation was found in the sigmoid colon secondary to colitis. Biopsied. - One 3 mm polyp in the transverse colon, removed with a cold biopsy forceps. Resected and retrieved. - The examination was otherwise normal on direct and retroflexion views. Recommendations : - Discharge patient to home. - Resume previous diet. - Continue present medications. - Await pathology results. - Repeat colonoscopy in 3 years for surveillance. My findings are described in the full procedure note, which is enclosed. If I can be of further assistance, please feel free to contact me at . Sincerely, Tanner Beasley, 07/09/2025 4:50:02 PM This report has been signed electronically.
--- NOTE | 2025-07-09 17:17 | POSTOPAN2_ITS ---
Anesthesia Postop Eval I Sum Postop Eval Completion status Anesthesia document: Postop Eval 1 completed: Yes Anesthesia Postop Eval I Summary Anesthesia Postop Eval I Summary: Anesthesia Postop Eval I: Assessment Summary Airway patent Yes 07/09/25 16:48 MOLD [email or web address] Spontaneous unlabored Yes 07/09/25 16:48 MOLD [email or web address].[email or web address] respirations Mental status Awake,Calm 07/09/25 16:48 MOLD ENGRAVER.ELLIOTOBArtemio nausea Yes 07/09/25 16:48 MOLD ENGRAVER.ELLIOTOBArtemio Vomiting No 07/09/25 16:48 MOLD ENGRAVER.ELLIOTOBArtemio Anesthesia Postop Eval I: Fluid Summary Crystalloid volume administer 400 07/09/25 16:48 MOLD ENGRAVER.ELLIOTOBY (ml) Colloids volume administered ( ml) Blood Product volume administered (ml) Total IV fluid infused 400 07/09/25 16:48 MOLD ENGRAVER.CHARLENE Anesthesia Postop Eval I: Summary Notes Anesthesia Complication No 07/09/25 16:48 MOLD [email or web address].CHARLENE Anesthesia Complication Comment: Post-operative progress note RN to medicate for 07/09/25 16:48 MOLD ENGRAVER.CHARLENE nausea Anesthesia: Postop Eval II Evaluation Mental status: Awake and Calm Pain Level: 0 nausea: No Vomiting: No Complications Anesthesia Complication: No
--- NOTE | 2025-07-09 17:17 | PCM.POSTANE2 ---
Anesthesia Postop Eval I Sum Postop Eval Completion status Anesthesia document: Postop Eval 1 completed: Yes Anesthesia Postop Eval I Summary Anesthesia Postop Eval I Summary: Anesthesia Postop Eval I: Assessment Summary Airway patent Yes 07/09/25 16:48 CLINICAL LAB ASSISTANT.[email or web address] Spontaneous unlabored Yes 07/09/25 16:48 CLINICAL LAB ASSISTANT.CHARLENE respirations Mental status Awake,Calm 07/09/25 16:48 CLINICAL LAB ASSISTANT.ELLIOTOBArtemio nausea Yes 07/09/25 16:48 CLINICAL LAB ASSISTANT.ELLIOTOBArtemio Vomiting No 07/09/25 16:48 CLINICAL LAB ASSISTANT.ELLIOTOBAretmio Anesthesia Postop Eval I: Fluid Summary Crystalloid volume administer 400 07/09/25 16:48 CLINICAL LAB ASSISTANT.ELLIOTOBY (ml) Colloids volume administered ( ml) Blood Product volume administered (ml) Total IV fluid infused 400 07/09/25 16:48 CLINICAL LAB ASSISTANT.CHARLENE Anesthesia Postop Eval I: Summary Notes Anesthesia Complication No 07/09/25 16:48 CLINICAL LAB ASSISTANT.CHARLENE Anesthesia Complication Comment: Post-operative progress note RN to medicate for 07/09/25 16:48 CLINICAL LAB ASSISTANT.CHARLENE nausea Anesthesia: Postop Eval II Evaluation Mental status: Awake and Calm Pain Level: 0 nausea: No Vomiting: No Complications Anesthesia Complication: No
[2025-07-09] MEDS: Furosemide 20 MG/2 ML VIAL IV (18:11)
[2025-07-09] MEDS: MELATONIN 3 MG TABLET PO (22:09)
[2025-07-10 03:46] VITALS: BP 110/87; PULSE 83; RESP 16; TEMP 37.2; O2SAT 97
--- NOTE | 2025-07-10 03:52 | PCM.HOSP.N ---
Hospitalist Note Telemetry with concern rhythm changes, patient asymptomatic, EKG obtained with concern for new onset A-fib although patient does have underlying cardiac history. Currently maintained on metoprolol. Not anticoagulated with current presentation with GI bleed. Will obtain mag, TSH and request echocardiogram as noted most recent from 10/16/2024.
--- NOTE | 2025-07-10 03:55 | EKG12_ITS ---
Test Reason : ARRYTH Blood Pressure : */* mmHG Vent. Rate : 83 BPM Atrial Rate : * BPM P-R Int : * ms QRS Dur : 92 ms QT Int : 388 ms P-R-T Axes : * 29 37 degrees QTcB Int : 455 ms Atrial fibrillation Minimal voltage criteria for LVH, may be normal variant ( [place] product ) Abnormal ECG baseline electrial interference ? implanted stimulator Confirmed by Con Reina [id number]), technical editor BAR GUERRA ([id number]) on 07/10/2025 8:13:42 AM Referred By: DR AGUIAR Confirmed By: Con Reina
--- NOTE | 2025-07-10 05:55 | ECHOCS_ITS ---
Reason For Study Reason For Study: Afib/Flutter Procedure This was a 2D Doppler, Color Flow transthoracic echocardiogram. The study was technically difficult. Contrast injection was performed. Exam performed portable in patient room. Left Ventricle Normal size and thickness. Mild generalized global hypokinesis. Estimated LVEF 45%. At least stage I diastolic dysfunction. Septal wall motion consistent with RV volume and pressure overload. Right Ventricle Normal RV size. Moderate RV systolic dysfunction. Atria The left atrium is severely enlarged. Normal right atrium. Mitral Valve Fixed posterior mitral valve leaflet. Moderately severe posterior mitral valve regurgitation. Tricuspid Valve Moderate (2+) tricuspid valve insufficiency. Right ventricular systolic pressure estimated to be 42 mmHg. Aortic Valve Trisinus/trileaflet aortic valve. Pulmonic Valve The pulmonic valve is not well visualized. Great Vessels Normal sized aortic root. Pericardium/Pleural No pericardial effusion. Medication Diluted definity 1ml given slow IV push to enhance endocardial definition. MMode/2D Measurements & Calculations LVIDd: 4.7 cm IVSd: 0.73 cm Ao root diam: 3.1 cm LVIDs: 3.6 cm LVPWd: 0.90 cm RVDd: 3.7 cm FS: 23.6 % LAV(MOD-bp): 81.5 ml LVAd ap4: 36.5 cm2 SV(MOD-sp4): 66.1 ml LAV(MOD-bp) Indexed: 47.4 ml/m2 LVLd ap4: 8.2 cm SI(MOD-sp4): 38.4 ml/m2 LAV(MOD-sp2): 82.1 ml EDV(MOD-sp4): 134.2 ml LAV(MOD-sp4): 80.7 ml EDV(sp4-el): 139.0 ml LVAs ap4: 23.8 cm2 LVLs ap4: 7.0 cm ESV(MOD-sp4): 68.1 ml ESV(sp4-el): 69.3 ml EF(MOD-sp4): 49.2 % EF(sp4-el): 50.1 % SV(sp4-el): 69.7 ml LA A4 area: 25.8 cm2 LA dimension(2D): 5.5 cm RA A4 area: 17.5 cm2 Doppler Measurements & Calculations MV E max elisabeth: 214.3 cm/sec MV V2 max: 260.7 cm/sec Ao V2 max: 185.1 cm/sec MV max P.3 mmHg Ao max P.7 mmHg MV V2 mean: 150.1 cm/sec Ao V2 mean: 120.0 cm/sec MV mean P.9 mmHg Ao mean P.8 mmHg MV V2 VTI: 72.8 cm Ao V2 VTI: 37.1 cm AV (velocity ratio): 0.48 LV V1 max: 87.8 cm/sec MR max elisabeth: 506.7 cm/sec TR max elisabeth: 254.8 cm/sec LV V1 max P.1 mmHg MR max P.7 mmHg TR max P.7 mmHg LV V1 mean P.7 mmHg MR mean elisabeth: 399.7 cm/sec LV V1 mean: 62.4 cm/sec MR mean P.8 mmHg LV V1 VTI: 17.8 cm MR VTI: 180.4 cm ECHO/Echo Complete W/ Contrast Interpretation Summary Mild generalized global hypokinesis. Estimated LVEF 45%. At least stage I diast olic dysfunction. Septal wall motion consistent with RV volume and pressure overload. Normal RV size. Moderate RV systolic dysfunction. The left atrium is severely enlarged. Fixed posterior mitral valve leaflet. Moderately severe posterior mitral valve regurgitation. Right ventricular systolic pressure estimated to be 42 mmHg. Moderate (2+) tricuspid valve insufficiency. Recommend YOON or cardiac MRI for further evaluation of mitral regurgitation. Ordering Physician: Veronique Moulton Performed By: Hermelindo Javier RCS
[2025-07-10] MEDS: Budesonide Respules 0.5 MG/2 ML AMPUL.NEB. INHALATION (07:28)
[2025-07-10 07:29] VITALS: PULSE 82; RESP 16
--- NOTE | 2025-07-10 07:50 | PCM.PN.HOSP ---
Reason for Visit Chief Complaint: Shortness of breath for last 3 to 4 days, low hemoglobin. Subjective Subjective Patient is a 70-year-old lady who presented with progressive shortness of breath found to be anemic on admission admitted to a monitored bed for further management Objective Data Objective Data Vital Signs: Vital Signs Temp Pulse Resp BP Pulse Ox O2 Del Method O2 Flow Rate 98.9 F 82 16 110/87 H 97 Nasal Cannula 2 07/10/25 03:46 07/10/25 07:29 07/10/25 07:29 07/10/25 03:46 07/10/25 03:46 07/10/25 07:29 07/10/25 07:29 Oxygen Flow Rate (L/min) 2 Oxygen Delivery Method Nasal Cannula Weight: 69.2 kg Body Mass Index (BMI) 27.0 Intake & Output: Intake and Output for Last 24 Hours 07/08/25 07/09/25 07/10/25 23:59 23:59 23:59 Intake Total 1790 / 3290 2161.75 / 2161.75 Balance 1790 / 3290 2161.75 / 2161.75 Lab / Micro Data 07/10/25 08:35 07/10/25 08:35 Micro: Microbiology 07/08/25 10:28 Stool Stool Occult Blood (KATE) - Final Occult Blood Positive 07/07/25 16:48 Mucosa - Nose SARS-CoV-2, Influenza & RSV (PCR) - Final Rhythm Strip Rhythm Strip: Sinus Tach Rate: 114 Ectopy: None Physical Exam Narrative General: Alert, Oriented x3, Cooperative, No apparent distress HEENT: Atraumatic, PERRLA, EOMI, Normocephalic Oral: Moist Mucosa Neck: Supple, No JVD Lungs: Diminished, Normal air movement, No rhonchi, No wheeze, No rales Cardiovascular: Regular rate, Regular Rhythm, Normal S1, Normal S2, No murmurs Abdomen: Soft, Non Tender, Non-Distended, No Hepato-splenomegaly Extremities: No edema, Capillary Refill Less than 3 Seconds Skin: No rashes, No breakdown Musculoskeletal: No Tenderness to Palpation of Joints or Extremities Neurological: No focal neurological deficits, moves all extremities, sensation intact Psych/Mental Status: Normal Affect, Appropriate Assessment & Plan Assessment/Plan (1) Symptomatic anemia: PLAN: Plan Patient is a 70-year-old lady who presented with progressive shortness of breath found to be anemic on admission admitted to a monitored bed for further management 1. Acute symptomatic anemia ? Patient was admitted to a monitored bed was transfused with 2 unit PRBC consult was placed to GI patient underwent EGD and colonoscopy Colonoscopy result below - Diverticulosis in the recto-sigmoid colon, in the sigmoid colon and in the descending colon. - Localized mild inflammation was found in the sigmoid colon secondary to colitis. Biopsied. - One 3 mm polyp in the transverse colon, removed with a cold biopsy forceps. Resected and retrieved. EGD result below - No gross lesions in the entire esophagus. - Hiatal hernia. - No gross lesions in the entire examined duodenum. - No specimens collected. Patient was discharged on PPI and iron 2. Paroxysmal atrial fibrillation ? Apparently new onset patient has history of PVC patient heart rate was controlled. Patient was deemed not a candidate for systemic anticoagulation given her acute blood loss anemia. Follow-up appointment was set up with cardiology for the patient 3. Coronary artery disease ? Status post CABG patient is on guideline directed medical therapy 4. Hypertension ? Blood pressure controlled, home medications continued with dose adjustment as needed 5. History of lung CA ? Patient is apparently followed by radiation oncology as outpatient 6. COPD ? Currently not in exacerbation aerosol treatments as needed 7. Depression with anxiety ? Did continue patient SSRI?sertraline Charges/Coding Visit Charges Inpatient E&M: 35362 Subs Hosp L2
[2025-07-10 09:25] VITALS: PULSE 82
[2025-07-10] MEDS: Metoprolol(XL)Succ 25 MG Tablet 12.5 MG PO (09:25)
[2025-07-10] MEDS: Furosemide 20 MG/2 ML VIAL IV (09:25)
[2025-07-10] MEDS: Pantoprazole Sodium 40 MG in 0.9% Normal Saline (100mL MB+) 100 ML 300 MG IV (09:30)
[2025-07-10 09:31] LABS: Hematocrit 28.7 % (37-47); Hemoglobin 8.8 g/dL (12.0-15.0); Immature Granulocytes Count 0.030 X10^3/uL (0.0-0.0); Mean Corp Hgb Conc 30.7 g/dL (32-36); Mean Corpuscular Volume 82.2 fL (81-99); Mean Platelet Vol. 11.1 fl (6.2-12.0); NRBC Flagged by Analyzer 0 % (0-5); Platelet Count 211 K/mm3 (150-450); RBC Distribution Width CV 17.8 % (11.6-14.6); RBC Distribution Width SD 51.3 fl (35.1-43.9); Red Blood Count 3.49 M/mm3 (4.2-5.4); White Blood Count 6.1 K/mm3 (4.4-11.0)
[2025-07-10] MEDS: 0.9% Saline Lock 10 ML Syringe IV (09:32)
[2025-07-10 10:00] VITALS: BP 119/86; PULSE 58; RESP 16; TEMP 36.9; O2SAT 99
[2025-07-10 10:29] LABS: Anion Gap 13 (5-15); BUN 14 mg/dL (4-19); BUN/Creat Ratio 16.2 RATIO (10-20); Calcium,Total 8.7 mg/dL (7.6-11.0); Carbon Dioxide 23.8 mmol/L (21.0-32.0); Chloride 98 mmol/L (98-108); Estimated Creatinine Clearance 60.54 ml/min (50-250); Glucose 94 mg/dL (70-99); Potassium 3.9 mmol/L (3.3-5.1)
[2025-07-10 12:16] LABS: Magnesium 2.1 mg/dL (1.5-2.2)
--- NOTE | 2025-07-10 12:36 | EX.PCM.PN.GI ---
Subjective Subjective 1d post bidirectional endoscopies - tolerating PO - denies any pain - SOB improved - denies any bleeding - good BM this am Objective Data Objective Data Hgb 8.8 today up from 7.8 on admission Colon (diverticulosis, mild colitis sigmoid colon, 3mm transverse colon polyp, non-bleeding hemorrhoids) & EGD () 07/09/2025 - no source of bleeding found, path pending Vital Signs: Vital Signs Temp Pulse Resp BP Pulse Ox O2 Del Method O2 Flow Rate 98.5 F 58 L 16 119/86 H 99 Nasal Cannula 2 07/10/25 10:00 07/10/25 10:00 07/10/25 10:00 07/10/25 10:00 07/10/25 10:00 07/10/25 10:00 07/10/25 10:00 Oxygen Flow Rate (L/min) 2 Oxygen Delivery Method Nasal Cannula Weight: 152 lb 8.958 oz Body Mass Index (BMI) 27.0 Intake & Output: Intake and Output for Last 24 Hours 07/08/25 07/09/25 07/10/25 23:59 23:59 23:59 Intake Total 1790 / 3290 2161.75 / 2161.75 100 / 100 Balance 1790 / 3290 2161.75 / 2161.75 100 / 100 Lab / Micro Data Attestation: I reviewed the patient's lab results. 07/10/25 08:35 07/10/25 08:35 Labs: Laboratory Results - last 24 hr 07/10/25 08:35: WBC 6.1, RBC 3.49 L, Hgb 8.8 L, Hct 28.7 L, MCV 82.2, MCH 25.2 L, MCHC 30.7 L, RDW Std Deviation 51.3 H, RDW Coeff of Kit 17.8 H, Plt Count 211, MPV 11.1, Immature Gran % (Auto) 0.500, Neut % (Auto) 71.9 H, Lymph % (Auto) 15.1 L, [place] % (Auto) 10.7 H, Eos % (Auto) 1.3, Baso % (Auto) 0.5, Absolute Neuts (auto) 4.4, Absolute Lymphs (auto) 0.93, Nucleated RBC % 0, Sodium 135, Potassium 3.9, Chloride 98, Carbon Dioxide 23.8, Anion Gap 13, BUN 14, Creatinine 0.83, Estim Creat Clear Calc 60.54, Est GFR (MDRD) Non-Af 77, BUN/Creatinine Ratio 16.2, Glucose 94, Calcium 8.7, Magnesium 2.1, TSH 2.950 Micro: Microbiology 07/08/25 10:28 Stool Stool Occult Blood (KATE) - Final Occult Blood Positive 07/07/25 16:48 Mucosa - Nose SARS-CoV-2, Influenza & RSV (PCR) - Final Rhythm Strip Rhythm Strip: Sinus Tach Rate: 114 Ectopy: None Physical Exam Const no apparent distress, average body habitus and healthy appearing General Appearance: well developed Orientation / Consciousness: oriented to person, oriented to place and oriented to time Neck full ROM Resp Effort and Inspection: able to speak in complete sentences and symmetric chest movement Auscultation: clear to auscultation bilaterally GI GI Narrative: ABD soft, round, non distended, non tender, BS+ x4 Extremity Extremity Narrative: MAEx4 Assessment & Plan Assessment/Plan (1) Symptomatic anemia: PLAN: Transition IV pantoprazole to oral PPI (Omeprazole 40mg daily at discharge) Continue oral Fe supplement with Vitamin C; reinforce separation from PPI dosing Continue to monitor H&H during admission Await pathology results Outpatient GI follow-up for pathology review and consider further evaluation of anemia, including possible capsule endoscopy if recurrent unexplained anemia persists Avoid NSAIDS PLAN: Plan 70y/o female admitted on 07/07/2025 for symptomatic anemia with initial Hgb 7.8, transfused 1u PRBC with improvement to 8.8 today. Bidirectional endoscopies on 07/09/2025 revealed HH, diverticulosis, 3mm transverse colon polyp (path pending), localized mild inflammation in the sigmoid colon (path pending), and hemorrhoids, but no definitive source of bleeding. PMH notable for acute hemorrhagic gastritis (EGD 12/2024) and colonic angiodysplastic lesion treated with APC in 2021. Currently tolerating PO w/o difficulty, having formed BM, and denies any abdominal pain, hematochezia, or melena. Reports SOB has improved. On Fe supplementation with Vitamin C at home, was taking concurrently with daily PPI (omeprazole 20mg), counseled on separate administration to optomize absorption. No NSAID use reported.
--- NOTE | 2025-07-10 13:56 | PCM.DC.SUM ---
Providers Date of Admission: 07/07/25 Date of Discharge: 07/10/25 Primary Care Physician: Dr. Sen Odom MD Consultations 07/08/25 13:16 Consult: Gastroenterology Routine Consulting Provider: [facility] Reason for Consult: GI bleed EMERGENT Consult: No Notified: Yes Date Notified: 07/08/25 Time Notified: 13:17 Method of Notification: Verbal Reason For Visit: SEVERE ANEMIA, SOB Diagnosis Discharge Diagnosis (1) Symptomatic anemia: Status: Acute Code(s): D64.9 - Anemia, unspecified Plan Patient is a 70-year-old lady who presented with progressive shortness of breath found to be anemic on admission admitted to a monitored bed for further management 1. Acute symptomatic anemia ? Patient was admitted to a monitored bed was transfused with 2 unit PRBC consult was placed to GI patient underwent EGD and colonoscopy Colonoscopy result below - Diverticulosis in the recto-sigmoid colon, in the sigmoid colon and in the descending colon. - Localized mild inflammation was found in the sigmoid colon secondary to colitis. Biopsied. - One 3 mm polyp in the transverse colon, removed with a cold biopsy forceps. Resected and retrieved. EGD result below - No gross lesions in the entire esophagus. - Hiatal hernia. - No gross lesions in the entire examined duodenum. - No specimens collected. Patient was discharged on PPI and iron 2. Paroxysmal atrial fibrillation ? Apparently new onset patient has history of PVC patient heart rate was controlled. Patient was deemed not a candidate for systemic anticoagulation given her acute blood loss anemia. Follow-up appointment was set up with cardiology for the patient 3. Coronary artery disease ? Status post CABG patient is on guideline directed medical therapy 4. Hypertension ? Blood pressure controlled, home medications continued with dose adjustment as needed 5. History of lung CA ? Patient is apparently followed by radiation oncology as outpatient 6. COPD ? Currently not in exacerbation aerosol treatments as needed 7. Depression with anxiety ? Did continue patient SSRI?sertraline Medications at Discharge Home Medications omeprazole 20 mg capsule,delayed release 20 mg PO DAILY acid reflux 02/04/16 albuterol sulfate 90 mcg/actuation aerosol inhaler 1 puff inhalation Q6H PRN Sob &/Or Wheezing 07/28/20 ipratropium 0.5 mg-albuterol 3 mg (2.5 mg base)/3 mL nebulization soln 3 ml inhalation Q4H PRN shortness of breath or wheezing #180 mL 12/29/20 nebulizer and compressor #1 ea 06/11/22 primidone 50 mg tablet 150 mg PO QHS seizures 30 days #90 tabs 01/10/24 prazosin 2 mg capsule 2 mg PO QHS blood pressure 01/12/24 budesonide 1 mg/2 mL suspension for nebulization 1 mg (2 mL) inhalation BID BREATHING #60 mL 02/03/24 nitroglycerin 0.4 mg sublingual tablet 0.4 mg sublingual Q5M PRN Chest Pain #25 tabs 02/08/24 metoprolol succinate 25 mg tablet,extended release 24 hr 12.5 mg (1/2 x 25 mg) PO DAILY blood pressure #45 TABLETS 02/13/24 sertraline 100 mg tablet 150 mg PO DAILY mood 10/16/24 furosemide 20 mg tablet (Lasix) 20 mg PO BID diuretic #90 tabs 04/02/25 isosorbide mononitrate 30 mg tablet,extended release 24 hr 30 mg PO DAILY #30 tabs 06/14/25 OXYGEN - Supplemental ([facility] INFORMATIONAL USE ONLY) 07/10/25 ferrous sulfate 325 mg (65 mg iron) tablet (FeroSul) 325 mg PO DAILY #60 tabs 07/10/25 Hospital Course Summary of Care Provided Minutes Spent on Discharge: 32 Physical Exam Narrative GENERAL: cooperative HEENT: Atraumatic; normocephalic EYES; Anicteric, Normal Conjunctiva NECK; supple, normal thyroid, RESPIRATORY: Diminished to auscultation CARDIOVASCULAR: Regular S1 S2, GI: soft, normoactive bowel sounds, : No Renal angle tenderness; EXTREMITIES: No edema, no clubbing, MUSCULOSKELETAL: no muscle wasting NEURO: Awake; no lateralizing signs. SKIN: No Rash PSYCH; Flat affect Weight / BMI Weight Weight: 69.2 kg Body Mass Index (BMI) 27.0 ABG / Lab / Microbiology Data 07/10/25 08:35 07/10/25 08:35 Laboratory: Laboratory Results - last 24 hr 07/10/25 08:35: WBC 6.1, RBC 3.49 L, Hgb 8.8 L, Hct 28.7 L, MCV 82.2, MCH 25.2 L, MCHC 30.7 L, RDW Std Deviation 51.3 H, RDW Coeff of Kit 17.8 H, Plt Count 211, MPV 11.1, Immature Gran % (Auto) 0.500, Neut % (Auto) 71.9 H, Lymph % (Auto) 15.1 L, [place] % (Auto) 10.7 H, Eos % (Auto) 1.3, Baso % (Auto) 0.5, Absolute Neuts (auto) 4.4, Absolute Lymphs (auto) 0.93, Nucleated RBC % 0, Sodium 135, Potassium 3.9, Chloride 98, Carbon Dioxide 23.8, Anion Gap 13, BUN 14, Creatinine 0.83, Estim Creat Clear Calc 60.54, Est GFR (MDRD) Non-Af 77, BUN/Creatinine Ratio 16.2, Glucose 94, Calcium 8.7, Magnesium 2.1, TSH 2.950 Microbiology: Microbiology 07/08/25 10:28 Stool Stool Occult Blood (KATE) - Final Occult Blood Positive 07/07/25 16:48 Mucosa - Nose SARS-CoV-2, Influenza & RSV (PCR) - Final D/C Instructions Discharge Activity: Return to Normal Activity Call your doctor if you observe: Fever of 101 or Higher, Shortness of breath, Fainting spells and Chest pain DC O2, CPAP, BIPAP Needs Home O2 Discharge instructions: No Meaningful Use Info Meaningful Use Meaningful Use Diagnoses (Choose all that apply): None applicable Discharge Plan Admission Admit Date/Time: 07/07/25 18:04 Attending Provider: Philipp Akins Primary Care Provider: Sen Odom Consulting Providers: Ortiz Zhou; Tanner Beasley; Sayra Arroyo; Nivia Moore; Tamie Govea; Asim Sarmiento Discharge Orders/Prescriptions Prescriptions: New ferrous sulfate [FeroSul] 325 mg (65 mg iron) tablet 325 mg PO DAILY Qty: 60 0RF Continued primidone 50 mg tablet 150 mg PO QHS 30 Days Qty: 90 budesonide 1 mg/2 mL suspension for nebulization 1 mg inhalation BID Qty: 60 6RF nitroglycerin 0.4 mg tablet, sublingual 0.4 mg SUBLINGUAL Q5M PRN (Reason: Chest Pain) Qty: 25 3RF Rx Instructions: Place one tab under tongue every 5 minutes x 3 doses as needed omeprazole 20 MG capsule 20 mg PO DAILY albuterol sulfate 1 PUFF inhaler 1 puff INHALATION Q6H PRN (Reason: Sob &/Or Wheezing) (DME) nebulizer and compressor Device See Rx Instructions .Route Qty: 1 0RF Rx Instructions: As directed prazosin 2 mg capsule 2 mg PO QHS OXYGEN - Supplemental ([facility] INFORMATIONAL USE ONLY) Patient Comments: 2L HS sertraline 100 mg tablet 150 mg PO DAILY isosorbide mononitrate 30 mg tablet extended release 24 hr 30 mg PO DAILY Qty: 30 0RF ipratropium-albuterol 0.5 mg-3 mg(2.5 mg base)/3 mL solution for nebulization 3 ml INHALATION Q4H PRN (Reason: shortness of breath or wheezing) Qty: 180 3RF metoprolol succinate 25 mg tablet extended release 24 hr 12.5 mg PO DAILY Qty: 45 3RF furosemide [Lasix] 20 mg tablet 20 mg PO BID Qty: 90 3RF Referrals / Follow Up: Sen Odom MD [Primary Care Provider] - Within 1 Week Con Reina MD [Med Staff - Active Staff] - Within 2 Weeks (Paroxysmal A-fib) Disposition Disposition (needs filled in before D/C Order can be placed): Home, Self Care Charges/Coding Visit Charges Inpatient E&M: 48833 Disch Hosp >30min
--- NOTE | 2025-07-10 14:46 | CASEMGMT ---
Patient has order for discharge. RN CM in to discuss needs at discharge. Patient denies needs or help at discharge. Patient up independent with therapy. Patient had no further questions or concerns.
--- NOTE | 2025-07-10 15:05 | PHA.DC.COU.R ---
Pharmacy [facility] has performed discharge medication counseling for this patient. The patient was counseled on the following discharge medications and changes in medications for homegoing review. - Iron sulfate The Reason for Use, instructions for use, and potential side effects were reviewed for all new medications. The patient's questions regarding all of their medications were answered. The patient was able to verbally demonstrate an understanding of their discharge medications. Medications at Discharge Home Medications omeprazole 20 mg capsule,delayed release 20 mg PO DAILY acid reflux 02/04/16 albuterol sulfate 90 mcg/actuation aerosol inhaler 1 puff inhalation Q6H PRN Sob &/Or Wheezing 07/28/20 ipratropium 0.5 mg-albuterol 3 mg (2.5 mg base)/3 mL nebulization soln 3 ml inhalation Q4H PRN shortness of breath or wheezing #180 mL 12/29/20 nebulizer and compressor #1 ea 06/11/22 primidone 50 mg tablet 150 mg PO QHS seizures 30 days #90 tabs 01/10/24 prazosin 2 mg capsule 2 mg PO QHS blood pressure 01/12/24 budesonide 1 mg/2 mL suspension for nebulization 1 mg (2 mL) inhalation BID BREATHING #60 mL 02/03/24 nitroglycerin 0.4 mg sublingual tablet 0.4 mg sublingual Q5M PRN Chest Pain #25 tabs 02/08/24 metoprolol succinate 25 mg tablet,extended release 24 hr 12.5 mg (1/2 x 25 mg) PO DAILY blood pressure #45 TABLETS 02/13/24 sertraline 100 mg tablet 150 mg PO DAILY mood 10/16/24 furosemide 20 mg tablet (Lasix) 20 mg PO BID diuretic #90 tabs 04/02/25 isosorbide mononitrate 30 mg tablet,extended release 24 hr 30 mg PO DAILY heart health #30 tabs 06/14/25 OXYGEN - Supplemental ([facility] INFORMATIONAL USE ONLY) 07/10/25 ferrous sulfate 325 mg (65 mg iron) tablet (FeroSul) 325 mg PO DAILY #60 tabs 07/10/25
[2025-07-10 15:41] VITALS: BP 122/76; PULSE 68; RESP 16; TEMP 36.8; O2SAT 96
== END 2025-07-10 15:42 | disposition home or self-care (01) ==
LOC: ED 18:13 → PCU 18:21
PROVIDERS: Family Medicine; Internal Medicine Gastroenterology; Admitting Provider Internal Medicine; Emergency Provider Emergency Medicine; PCP Family Medicine; Visit Provider Internal Medicine
PROC: 0DJD8ZZ Inspection of Lower Intestinal Tract, Via Natural or Artificial Opening Endoscopic (ICD-10-PCS; CPT 45378; principal; 2025-07-09 15:55)
DX: D62 Acute posthemorrhagic anemia (principal); J96.11 Chronic respiratory failure with hypoxia; I11.0 Hypertensive heart disease with heart failure; I50.33 Acute on chronic diastolic (congestive) heart failure; J44.9 Chronic obstructive pulmonary disease, unspecified; I48.0 Paroxysmal atrial fibrillation; Z85.118 Personal history of other malignant neoplasm of bronchus and lung; K52.9 Noninfective gastroenteritis and colitis, unspecified; Z79.51 Long term (current) use of inhaled steroids; K92.2 Gastrointestinal hemorrhage, unspecified; F17.210 Nicotine dependence, cigarettes, uncomplicated; I49.3 Ventricular premature depolarization; Z95.5 Presence of coronary angioplasty implant and graft; K63.5 Polyp of colon; K57.30 Diverticulosis of large intestine without perforation or abscess without bleeding; K44.9 Diaphragmatic hernia without obstruction or gangrene; E78.00 Pure hypercholesterolemia, unspecified; I25.10 Atherosclerotic heart disease of native coronary artery without angina pectoris; Z79.899 Other long term (current) drug therapy; K64.1 Second degree hemorrhoids; I08.1 Rheumatic disorders of both mitral and tricuspid valves; I25.2 Old myocardial infarction; Z95.1 Presence of aortocoronary bypass graft; Z99.81 Dependence on supplemental oxygen; G47.33 Obstructive sleep apnea (adult) (pediatric); F41.8 Other specified anxiety disorders; K64.4 Residual hemorrhoidal skin tags
CPT/HCPCS: 45380; 44360; 36415; 36430; 71046; 71275; 80048; 80076; 82274; 82728; 83540; 83550; 83735; 83880; 84100; 84443; 84484; 85014; 85018; 85025; 85379; 85610; 86850; 86900; 86901; 87631; 88305; 93005; 93306; 94640; 94668; 96365; 96366; 96367; 96375; 96376; 97162; 97165; 99221; 99285; 99406; P9016; Q9957; Q9967; A4216; C8929; G0378; J1938; J2405; J2916

== ENCOUNTER → 2025-07-22 | Outpatient (CLI) | payer MEDICARE, SELFPAY ==
[2021-10-20 08:51] VITALS: BMI 26.6
--- NOTE | 2025-07-22 11:50 | RAD_ITS ---
PROCEDURE: CHEST PA AND LATERAL 07/22/2025 REASON FOR EXAM: COUGH, SOB TECHNIQUE: Procedure Code: RADCXR Modality: DX Procedure: CHEST PA AND LATERAL COMPARISON: July 07, 2025, November 28, 2024 FINDINGS: Hardware: Lower cervical spine fusion. Prior median sternotomy and CABG. Heart: Enlarged. Lungs: No consolidation or new mass. Scarring in the inferior lateral right upper lobe similar to prior chest CT and most recent chest x-ray. Slight increase in interstitial markings may represent an element of mild edema. Bones: Degenerative changes are identified within the thoracic spine. RAD/Chest PA and Lateral IMPRESSION: Slight increase in interstitial markings may represent mild background edema. Otherwise no change. Reading Location: [id number]
[2025-07-22 11:56] LABS: Hematocrit 31.6 % (37-47); Hemoglobin 9.5 g/dL (12.0-15.0); Immature Granulocytes Count 0.030 X10^3/uL (0.0-0.0); Mean Corp Hgb Conc 30.1 g/dL (32-36); Mean Corpuscular Volume 86.6 fL (81-99); Mean Platelet Vol. 10.5 fl (6.2-12.0); NRBC Flagged by Analyzer 0 % (0-5); POSITIVE MORPHOLOGY YES; Platelet Count 229 K/mm3 (150-450); RBC Distribution Width CV 21.2 % (11.6-14.6); RBC Distribution Width SD 65.4 fl (35.1-43.9); Red Blood Count 3.65 M/mm3 (4.2-5.4); White Blood Count 5.6 K/mm3 (4.4-11.0)
[2025-07-22 12:54] LABS: AST(SGOT) 22 U/L (<=31); Alanine Aminotransfer ALT/SGPT 14 U/L (<=34); Albumin, Serum 4.1 g/dL (3.4-4.8); Alkaline Phosphatase 70 U/L (35-104); Anion Gap 14 (5-15); BUN 13 mg/dL (4-19); BUN/Creat Ratio 14.8 RATIO (10-20); Calcium,Total 9.2 mg/dL (7.6-11.0); Carbon Dioxide 21.7 mmol/L (21.0-32.0); Chloride 98 mmol/L (98-108); Globulin 3.4 g/dL (2.2-4.2); Glucose 88 mg/dL (70-99); Magnesium 2.2 mg/dL (1.5-2.2); Potassium 3.9 mmol/L (3.3-5.1); Pro- Brain NATRIURETIC PEPTIDE 5411 pg/mL (<=900)
[2025-07-22 13:40] LABS: Differential Indicated SCAN CRITERIA MET
[2025-07-22 14:24] LABS: Anisocytosis RARE
== END | disposition home or self-care (01) ==
PROVIDERS: PCP Family Medicine; Referring Provider Nurse Practitioner Family; Visit Provider Nurse Practitioner Family
DX: I48.0 Paroxysmal atrial fibrillation (principal); R06.09 Other forms of dyspnea; I25.10 Atherosclerotic heart disease of native coronary artery without angina pectoris; D50.9 Iron deficiency anemia, unspecified
CPT/HCPCS: 36415; 71046; 80053; 83735; 83880; 85025